=== PATIENT | female | born 1970 | race Caucasian/White ===

== ENCOUNTER 2020-05-06 10:11 | Emergency (ER) | payer OTHER, SELFPAY ==
[2020-05-06 10:17] VITALS: BP 149/79; PULSE 80; RESP 18; TEMP 36.8; O2SAT 99
--- NOTE | 2020-05-06 10:51 | ED.URI ---
HPI - URI/Sore Throat General Chief Complaint: Upper Respiratory Infection Stated Complaint: sore throat/headache/fatigue Time Seen by Provider: 05/06/20 10:41 Source: patient and RN notes reviewed Mode of arrival: ambulatory Limitations: no limitations History of Present Illness HPI Narrative: Patient presents today complaining of 3-day history of sore throat, fatigue, headache. Denies fever, cough, congestion, rhinorrhea, loss of taste or smell. 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 Denies recent antibiotic use. She currently rates her pain 01/18 and has been using Tylenol and cough drops. She did have a flu vaccine in March. 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 ENT: Denies rhinorrhea, congestion, or otalgia.+ Sore throat CARDIOVASCULAR: Denies chest pain, palpitations, or edema. RESPIRATORY: Denies cough or dyspnea. GASTROINTESTINAL: Denies abdominal pain, nausea, vomiting, or diarrhea. GENITOURINARY: Denies dysuria or hematuria. SKIN: Denies rash, itching, or wounds. MUSCULOSKELETAL: Denies back pain, joint pain, or myalgia. NEUROLOGIC: Denies numbness, tingling, or weakness.+ Headache PSYCH: Denies depression or anxiety. [facility] Past Medical History Medical History (Updated 05/06/20 @ 10:55 by Monalisa Lemons, HEAD HOLDER, ) Hypothyroidism Comments At time of signature, I have reviewed and agree with nursing past medical, surgical, social and family history unless otherwise noted. Please see nursing chart for further information. There is no relevant family history pertinent to the presenting complaint Exam Narrative: Exam Narrative: GENERAL: Well-appearing, well-nourished, and in no acute distress. HEAD: Normocephalic, atraumatic. EYES: EOMI. No redness or drainage. Conjunctivae normal. ENT: Mucous membranes pink and moist. Nares clear. No rhinorrhea. TMs normal bilaterally. Throat severely erythematous without edema or exudate. Uvula midline. NECK: Normal AROM. Supple. No lymphadenopathy. CHEST: No respiratory distress. Clear to auscultation. HEART: Regular rate and rhythm. No murmur appreciated. Normal peripheral pulses. EXTREMITIES: Normal range of motion. No edema. SKIN: Warm, dry, no rash. Capillary refill normal. Normal skin turgor. NEURO: No focal deficits. Alert and oriented x3. Gait steady. PSYCH: Normal affect. No signs of depression or anxiety. Course Vital Signs Vital signs: Vital Signs Temperature 98.2 F 05/06/20 10:17 Pulse Rate 80 05/06/20 10:17 Respiratory Rate 18 05/06/20 10:17 Blood Pressure 149/79 H 05/06/20 10:17 Pulse Oximetry 99 05/06/20 10:17 Temperature 98.2 F 05/06/20 10:17 Pulse Rate 80 05/06/20 10:17 Respiratory Rate 18 05/06/20 10:17 Blood Pressure 149/79 H 05/06/20 10:17 Pulse Oximetry 99 05/06/20 10:17 Reviewed. Pt has been instructed to follow up with her PCP regarding her elevated blood pressure today. MDM - URI/Sore Throat Differential Diagnosis Differential diagnosis: Likely upper respiratory infection, otitis media, sinusitis, viral infection, influenza, pharyngitis and other (Strep throat, COVID-19) Lab Data Attestation: I reviewed the patient's lab results. Labs: Influenza A Screen Negative Reference Range: Negative Influenza B Screen Negative Reference Ran
== END 2020-05-06 11:00 | disposition home or self-care (01) ==
PROVIDERS: Emergency Provider Nurse Practitioner
DX: J02.0 Streptococcal pharyngitis (principal); E03.9 Hypothyroidism, unspecified
CPT/HCPCS: 87804; 87880; 99203; G0463

== ENCOUNTER 2020-08-06 08:50 | Emergency (ER) | payer OTHER, SELFPAY ==
[2020-08-06 09:40] VITALS: BP 147/75; PULSE 76; RESP 20; TEMP 36.8; O2SAT 98
--- NOTE | 2020-08-06 10:05 | ED.URI ---
HPI - URI/Sore Throat General Chief Complaint: Upper Respiratory Infection Stated Complaint: SOB/Weakness/Fatigue/Headache Related Data Home Medications Medication Instructions Recorded Confirmed levonorgestrel-ethinyl estrad 1 tablet PO DAILY 08/06/20 08/06/20 [Vienva] Allergies Allergy/AdvReac Type Severity Reaction Status Date / Time No Known Allergies Allergy Verified 08/06/20 09:39 [facility] Past Medical History Medical History (Updated 05/07/20 @ 00:00 by Delia Mcghee) Hypothyroidism Course Vital Signs Vital signs: Vital Signs Temperature 98.2 F 08/06/20 09:40 Pulse Rate 76 08/06/20 09:40 Respiratory Rate 20 08/06/20 09:40 Blood Pressure 147/75 H 08/06/20 09:40 Pulse Oximetry 98 08/06/20 09:40 Temperature 98.2 F 08/06/20 09:40 Pulse Rate 76 08/06/20 09:40 Respiratory Rate 20 08/06/20 09:40 Blood Pressure 147/75 H 08/06/20 09:40 Pulse Oximetry 98 08/06/20 09:40 Discharge Plan Discharge Prescriptions: No Action levonorgestrel-ethinyl estrad [Vienva] 0.1-20 mg-mcg tablet 1 tablet PO DAILY RF: 0
--- NOTE | 2020-08-06 10:10 | ED.URI ---
HPI - URI/Sore Throat General Chief Complaint: Upper Respiratory Infection Stated Complaint: SOB/Weakness/Fatigue/Headache Time Seen by Provider: 08/06/20 09:50 Source: patient and RN notes reviewed Mode of arrival: ambulatory Limitations: no limitations History of Present Illness HPI Narrative: Patient presents today with a 4-day history of fatigue, body aches, headache, nasal congestion. Denies cough, sore throat, nausea, vomiting, diarrhea, loss of taste or smell. 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 Currently rates her headache 01/18. She has been taking ibuprofen and DayQuil with mild relief. Denies fever. She had a rapid COVID-19 test done yesterday that was negative. Related Data Home Medications Medication Instructions Recorded Confirmed levonorgestrel-ethinyl estrad 1 tablet PO DAILY 08/06/20 08/06/20 [Vienva] Allergies Allergy/AdvReac Type Severity Reaction Status Date / Time No Known Allergies Allergy Verified 08/06/20 09:39 Review of Systems Review of Systems: Narrative: CONSTITUTIONAL: Denies fever, chills, or sweats. + Body aches, fatigue EYES: Denies visual changes, redness, or discharge. ENT: Denies rhinorrhea, sore throat, or otalgia. + Congestion CARDIOVASCULAR: Denies chest pain, palpitations, or edema. RESPIRATORY: Denies cough or dyspnea. GASTROINTESTINAL: Denies abdominal pain, nausea, vomiting, or diarrhea. GENITOURINARY: Denies dysuria or hematuria. SKIN: Denies rash, itching, or wounds. MUSCULOSKELETAL: Denies back pain, joint pain, or myalgia. NEUROLOGIC: Denies numbness, tingling, or weakness. + Headache PSYCH: Denies depression or anxiety. [facility] Past Medical History Medical History (Updated 08/06/20 @ 10:13 by Monalisa Lemons, DISTRIBUTION CENTER ADMINISTRATOR, ) Hypothyroidism Comments At time of signature, I have reviewed and agree with nursing past medical, surgical, social and family history unless otherwise noted. Please see nursing chart for further information. There is no relevant family history pertinent to the presenting complaint Exam Narrative: Exam Narrative: GENERAL: Mildly ill-appearing, well-nourished, and in no acute distress. HEAD: Normocephalic, atraumatic. EYES: EOMI. No redness or drainage. Conjunctivae normal. ENT: Mucous membranes pink and moist. Nares clear. No rhinorrhea. TMs normal bilaterally. Throat normal. Uvula midline. NECK: Normal AROM. Supple. No lymphadenopathy. CHEST: No respiratory distress. Clear to auscultation. HEART: Regular rate and rhythm. No murmur appreciated. Normal peripheral pulses. EXTREMITIES: Normal range of motion. No edema. SKIN: Warm, dry, no rash. Capillary refill normal. Normal skin turgor. NEURO: No focal deficits. Alert and oriented x3. Gait steady. PSYCH: Normal affect. No signs of depression or anxiety. Course Course Emergency Course: Due to recent exposure and symptoms, patient may have a possible COVID-19 infection. Signs and symptoms discussed with patient. Patient educated to self-isolate in a room in his/her home away from others they live with. Use mask if available. Patient was advised not to leave house for any reason ? Self-treatment discussed including Tylenol for fever, pain, or myalgia, and cough cold medications for symptoms. Patient to check temperature daily and monitor for symptoms of respiratory distress. Patient should check in daily with primary care office/system via phone/virtual platform ? Nature of the disease to cause severe respiratory distress discussed with the patient. If emergent care is needed, instructed to notify EMS or primary care office/system that he/she may have COVID-19 to allow for proper preparation of PPE and isolation measures Vital Signs Vital signs: Vital Signs Temperature 98.2 F 08/06/20 09:40 Pulse Rate 76 08/06/20 09:40 Respiratory Rate 20 08/06/20 09:40 Blood Pressure 147/75 H 08/06/20 09:40 Pulse Oximetry 98 08/06/20 09:40 Temperature 98.2 F 0
[2020-08-07 14:05] LABS: SARS-CoV-2 RNA PCR Negative
== END 2020-08-06 10:20 | disposition home or self-care (01) ==
PROVIDERS: Emergency Provider Nurse Practitioner
DX: B34.9 Viral infection, unspecified (principal); Z20.822 Contact with and (suspected) exposure to COVID-19; E03.9 Hypothyroidism, unspecified
CPT/HCPCS: 87804; 99213; C9803; G0463; U0003; U0005

== ENCOUNTER 2021-06-18 08:48 | Emergency (ER) | payer OTHER, SELFPAY ==
[2021-06-18 08:55] VITALS: BP 120/72; PULSE 67; RESP 16; TEMP 37.5; O2SAT 99
--- NOTE | 2021-06-18 08:58 | ED.URI ---
HPI - URI/Sore Throat General Chief Complaint: Upper Respiratory Infection Stated Complaint: Headache/ Sore Throat Time Seen by Provider: 06/18/21 08:58 Source: patient and RN notes reviewed History of Present Illness HPI Narrative: Patient is a 50-year-old female who presents the urgent care with complaints of headache, sore throat and fatigue since Wednesday. 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 States that she does have the Covid vaccine and has been taking Advil. No other acute complaints. No acute distress noted. Patient aware of the plan of care. Some parts of this dictation were generated by voice recognition software and may contain typographical and/or grammatical inaccuracies. Related Data Home Medications Medication Instructions Recorded Confirmed levonorgestrel-ethinyl estrad 1 tablet PO DAILY 08/06/20 06/18/21 [Vienva] Allergies Allergy/AdvReac Type Severity Reaction Status Date / Time No Known Allergies Allergy Verified 06/18/21 09:02 Review of Systems Review of Systems: CONSTITUTIONAL: Denies fever, chills, or sweats. EYES: Denies visual changes, redness, or discharge. ENT: Denies rhinorrhea, congestion, otalgia. Reports of sore throat CARDIOVASCULAR: Denies chest pain, palpitations, or edema. RESPIRATORY: Denies cough or dyspnea. GASTROINTESTINAL: Denies abdominal pain, nausea, vomiting, or diarrhea. GENITOURINARY: Denies dysuria or hematuria. SKIN: Denies rash or itching. MUSCULOSKELETAL: Denies back pain, joint pain, or myalgia. NEUROLOGIC: Reports of headache All other systems reviewed are negative, except as documented in HPI. [facility] Past Medical History Medical History (Updated 06/18/21 @ 09:21 by JUJU Huynh) Hypothyroidism Comments At the time of my signature, I reviewed and agree with the nursing past medical, surgical, social, and family history. There is no relevant family history pertinent to the patient complaint. Exam Narrative: GENERAL: This is a well-nourished, well-developed patient, in no apparent distress. HEAD: normocephalic, atraumatic. EYES: PERRL. Sclera clear/white. Vision is grossly intact. EARS: External ears normal, auditory canals clear and without drainage, TMs normal without perforation. Hearing grossly intact. NOSE: External nose normal with no obvious nasal discharge, nares without redness, no rhinorrhea. THROAT: Mucous membranes moist. Moderate postnasal drainage with mild erythema noted to posterior oropharynx NECK: Neck supple CARDIOVASCULAR: Regular rate and rhythm without murmurs, gallops, or rubs. RESPIRATORY: Clear to auscultation. Breath sounds equal bilaterally. No wheezes, rales, or rhonchi. SKIN: warm, intact with no suspicious lesions or rash, good texture and turgor. NEURO: awake, alert, and oriented to person, place and time. There were no obvious focal neurologic abnormalities. EXTREMITIES: No clubbing, cyanosis, or edema. Course Vital Signs Vital signs: Vital Signs Temperature 99.5 F 06/18/21 08:55 Pulse Rate 67 06/18/21 08:55 Respiratory Rate 16 06/18/21 08:55 Blood Pressure 120/72 06/18/21 08:55 Pulse Oximetry 99 06/18/21 08:55 Temperature 99.5 F 06/18/21 08:55 Pulse Rate 67 06/18/21 08:55 Respiratory Rate 16 06/18/21 08:55 Blood Pressure 120/72 06/18/21 08:55 Pulse Oximetry 99 06/18/21 08:55 Reviewed MDM - URI/Sore Throat MDM Narrative Medical decision making narrative: Reviewed lab results with the patient. Aware that strep swab was positive. Advised patient complete the oral antibiotic regimen as prescribed. Be sure to eat and drink with the medication. Use Tylenol/ibuprofen as needed. Be sure to change her toothbrush within 2 to 3 days. You will be contagious for up to 24 hours after you start the medication and must be fever free to retu
== END 2021-06-18 09:23 | disposition home or self-care (01) ==
PROVIDERS: Emergency Provider Nurse Practitioner Family
DX: J02.0 Streptococcal pharyngitis (principal); E03.9 Hypothyroidism, unspecified
CPT/HCPCS: 87804; 87880; 99213; G0463

== ENCOUNTER 2022-06-16 08:02 | Emergency (ER) | payer OTHER, SELFPAY ==
--- NOTE | 2022-06-16 08:06 | ED_ITS ---
HPI - URI/Sore Throat General Chief Complaint: Upper Respiratory Infection Stated Complaint: Headache/Body Aches Time Seen by Provider: 06/16/22 08:06 Source: patient and RN notes reviewed Related Data Home Medications Medication Instructions Recorded Confirmed levonorgestrel-ethinyl estradiol 1 tablet PO DAILY 08/06/20 06/18/21 0.1 mg-20 mcg tablet (Vienva) Allergies Allergy/AdvReac Type Severity Reaction Status Date / Time No Known Allergies Allergy Verified 06/18/21 09:02 Review of Systems Review of Systems: CONSTITUTIONAL: Denies fever, chills, or sweats. EYES: Denies visual changes, redness, or discharge. ENT: Denies rhinorrhea, congestion, sore throat, or otalgia. CARDIOVASCULAR: Denies chest pain, palpitations, or edema. RESPIRATORY: Denies cough or dyspnea. GASTROINTESTINAL: Denies abdominal pain, nausea, vomiting, or diarrhea. GENITOURINARY: Denies dysuria or hematuria. SKIN: Denies rash or itching. MUSCULOSKELETAL: Denies back pain, joint pain, or myalgia. NEUROLOGIC: Denies headache, numbness, or weakness. PSYCHIATRIC: Denies anxiety or depression. All other systems reviewed are negative, except as documented in HPI. [facility] Past Medical History Medical History (Updated 06/19/21 @ 00:00 by Background Daemon) Hypothyroidism Comments At the time of my signature, I reviewed and agree with the nursing past medical, surgical, social, and family history. There is no relevant family history pertinent to the patient complaint. Exam Narrative: GENERAL: This is a well-nourished, well-developed patient, in no apparent distress. HEAD: normocephalic, atraumatic. EYES: PERRL. Sclera clear/white. Vision is grossly intact. EARS: External ears normal, auditory canals clear and without drainage, TMs normal without perforation. Hearing grossly intact. NOSE: External nose normal with no obvious nasal discharge, nares without redness, no rhinorrhea. THROAT: Mucous membranes moist, posterior pharynx clear. NECK: Neck supple, non-tender without lymphadenopathy, masses or thyromegaly. CARDIOVASCULAR: Regular rate and rhythm without murmurs, gallops, or rubs. RESPIRATORY: Clear to auscultation. Breath sounds equal bilaterally. No wheezes, rales, or rhonchi. GASTROINTESTINAL: Abdomen soft, non-tender, nondistended. Bowel sounds are active. No hepato-splenomegaly, or palpable masses. No guarding. SKIN: warm, intact with no suspicious lesions or rash, good texture and turgor. NEURO: awake, alert, and oriented to person, place and time. There were no obvious focal neurologic abnormalities. EXTREMITIES: No clubbing, cyanosis, or edema. No joint tenderness, effusion, or edema noted. No calf tenderness. Negative Homans sign bilaterally. BACK: Nontender without deformity or crepitance. No flank tenderness. Course Course Level of Care: Express Care Visit MDM - URI/Sore Throat Differential Diagnosis Differential diagnosis: Likely upper respiratory infection, croup, otitis media, sinusitis, viral infection, bronchitis, influenza and pharyngitis Critical Care Time Critical Care Time Critical Care Time: No Discharge Plan Discharge Prescriptions: No Action levonorgestrel-ethinyl estrad [Vienva] 0.1-20 mg-mcg tablet 1 tablet PO DAILY amoxicillin 500 mg tablet 500 mg PO Q12H Qty: 20 0RF Follow-up/Referrals: UNKNOWN,DOCTOR [Non-Staff] -
[2022-06-16 08:09] VITALS: BP 130/78; PULSE 72; RESP 16; TEMP 37; O2SAT 100
--- NOTE | 2022-06-16 08:14 | ED.URI ---
HPI - URI/Sore Throat General Chief Complaint: Upper Respiratory Infection Stated Complaint: Headache/Body Aches Time Seen by Provider: 06/16/22 08:06 Source: patient and RN notes reviewed Mode of arrival: ambulatory Limitations: no limitations History of Present Illness HPI Narrative: 51-year-old female presented for complaints of headache, body aches, sinus pressure/congestion, mild cough. onset yesterday. She endorses she was around her daughter who tested positive for influenza A. 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 She has taken TheraFlu and DayQuil for symptoms. Covid test negative at home yesterday. Denies shortness of breath, chest pain, palpitations, nausea vomiting, diarrhea, fevers or chills. States she never gets a fever. MD elicited complaint: cough Related Data Home Medications Medication Instructions Recorded Confirmed levonorgestrel-ethinyl estradiol 1 tablet PO DAILY 08/06/20 06/18/21 0.1 mg-20 mcg tablet (Vienva) Allergies Allergy/AdvReac Type Severity Reaction Status Date / Time No Known Allergies Allergy Verified 06/18/21 09:02 Review of Systems Review of Systems: ROS per HPI [facility] Past Medical History Medical History Hypothyroidism Exam Narrative: GENERAL: Ill-appearing, nontoxic EYES: PERRLA, conjunctivae clear ENT: Mucous membranes moist. TMs pearly valladares with dull light reflex bilaterally; no tragal tenderness. Oropharynx normal without lesions or exudate, no drooling, no hoarseness, no trismus, uvula midline. No tripod positioning, muffled voice, soft palate or pharyngeal wall bulging NECK: Supple. No lymphadenopathy CHEST: Clear to auscultation, breath sounds equal. No wheezing, rhonchi, rales, or stridor. No respiratory distress, speaks in full sentences. HEART: Regular rate and rhythm. No murmur heard. SKIN: Warm, dry, no rash. NEURO: Alert and oriented x3. PSYCH: Normal mood and affect Course Course Emergency Course: Patient is aware of diagnosis, understands and agrees to treatment plan. Anticipatory guidance given. Patient agrees to follow-up as directed and is aware of reasons to seek care at the emergency department. Portions of this record may have been created with voice recognition software Level of Care: Express Care Visit Vital Signs Vital signs: Vital Signs Temperature 98.6 F 06/16/22 08:09 Pulse Rate 72 06/16/22 08:09 Respiratory Rate 16 06/16/22 08:09 Blood Pressure 130/78 06/16/22 08:09 Pulse Oximetry 100 06/16/22 08:09 Oxygen Delivery Room Air 06/16/22 08:09 Temperature 98.6 F 06/16/22 08:09 Pulse Rate 72 06/16/22 08:09 Respiratory Rate 16 06/16/22 08:09 Blood Pressure 130/78 06/16/22 08:09 Pulse Oximetry 100 06/16/22 08:09 Oxygen Delivery Room Air 06/16/22 08:09 reviewed MDM - URI/Sore Throat MDM Narrative Medical decision making narrative: patient with known influenza exposure, sx c/w influenza. Nontoxic appearing and otherwise healthy. Advised supportive measures and signs/symptoms to go to the ER. Pt is appropriate for outpt treatment and f/u. Differential Diagnosis Differential diagnosis: Likely upper respiratory infection, sinusitis and viral infection Discharge Plan Discharge Clinical Impression: Viral infection Patient Disposition: Home, Self-Care Condition: Stable Instructions: Influenza (ED) Additional Instructions: You should avoid crowds until you are fever free for 24 hours without the use of fever reducing medications, or the symptoms are improved Rest. Drink plenty of fluids. Tylenol 1000mg every 8 hours as needed for pain/fever Recommend Flonase spray and Zyrtec (or Claritin/Kelsie) for sinus pressure/congestion over the counter Cough syrup may cause drowsiness; avoid driving or take it at night time. Follow up with your primary care provider as needed in 1-
== END 2022-06-16 08:34 | disposition home or self-care (01) ==
PROVIDERS: Emergency Provider Nurse Practitioner Family
DX: B34.9 Viral infection, unspecified (principal); E03.9 Hypothyroidism, unspecified
CPT/HCPCS: 99211; G0463

== ENCOUNTER 2022-07-15 14:22 | Emergency (ER) | payer OTHER, SELFPAY ==
--- NOTE | ~2022-07-15 | XR_ITS ---
EXAMINATION: XR chest 2V DATE: 07/15/2022 14:48 INDICATION: Shortness of breath. Chest tightness. Wheezing. TECHNIQUE: Frontal and lateral views of the chest were obtained. COMPARISON: None. FINDINGS: The chest demonstrates clear lungs without pneumonia, pleural effusion, or pneumothorax. Th e heart size is normal. IMPRESSION: 1. No acute cardiopulmonary disease. Reviewed, dictated and finalized at location A. WAY [employer]
--- NOTE | 2022-07-15 14:24 | ED.URI ---
HPI - URI/Sore Throat General Chief Complaint: Upper Respiratory Infection Stated Complaint: wheezing and tight chest Time Seen by Provider: 07/15/22 14:24 Source: patient and RN notes reviewed History of Present Illness HPI Narrative: Patient is a 51-year-old female presents to the Urgent Care with complaints of cough and wheezing. Patient states that she did have the flu a couple weeks ago and has had a persistent cough since then. Patient denies any recent fevers, nausea or vomiting. States that she had increased shortness of breath while walking the stairs today. Patient denies any cardiac history or chest pain. Patient has taken several COVID test at home which have all been negative. States that the symptoms started Wednesday. Patient has been taking Robitussin, Mucinex and ibuprofen. No other acute complaints. No acute distress noted. Patient aware of plan of care. Some parts of this dictation were generated by voice recognition software and may contain typographical and/or grammatical inaccuracies. Related Data Home Medications Medication Instructions Recorded Confirmed levonorgestrel-ethinyl estradiol 1 tablet PO DAILY 08/06/20 07/15/22 0.1 mg-20 mcg tablet (Vienva) Allergies Allergy/AdvReac Type Severity Reaction Status Date / Time No Known Allergies Allergy Verified 07/15/22 14:55 Review of Systems Review of Systems: CONSTITUTIONAL: Denies fever, chills, or sweats. EYES: Denies visual changes, redness, or discharge. ENT: Denies rhinorrhea, congestion, sore throat, or otalgia. CARDIOVASCULAR: Denies chest pain, palpitations, or edema. RESPIRATORY: Reports persistent cough with increased dyspnea GASTROINTESTINAL: Denies abdominal pain, nausea, vomiting, or diarrhea. GENITOURINARY: Denies dysuria or hematuria. SKIN: Denies rash or itching. MUSCULOSKELETAL: Denies back pain, joint pain, or myalgia. NEUROLOGIC: Denies headache, numbness, or weakness. All other systems reviewed are negative, except as documented in HPI. [facility] Past Medical History Medical History Hypothyroidism Comments At the time of my signature, I reviewed and agree with the nursing past medical, surgical, social, and family history. There is no relevant family history pertinent to the patient complaint. Exam Narrative: GENERAL: This is a well-nourished, well-developed patient, in no apparent distress. HEAD: normocephalic, atraumatic. EYES: PERRL. Sclera clear/white. Vision is grossly intact. EARS: External ears normal, auditory canals clear and without drainage, TMs normal without perforation. Hearing grossly intact. NOSE: External nose normal with no obvious nasal discharge, nares without redness, no rhinorrhea. THROAT: Mucous membranes moist, posterior pharynx clear. mild postnasal drainage NECK: Neck supple CARDIOVASCULAR: Regular rate and rhythm without murmurs, gallops, or rubs. RESPIRATORY: Clear to auscultation. Breath sounds equal bilaterally. No wheezes, rales, or rhonchi. SKIN: warm, intact with no suspicious lesions or rash, good texture and turgor. NEURO: awake, alert, and oriented to person, place and time. There were no obvious focal neurologic abnormalities. EXTREMITIES: No clubbing, cyanosis, or edema. Course Course Level of Care: Express Care Visit Vital Signs Vital signs: Vital Signs Temperature 98.5 F 07/15/22 14:26 Pulse Rate 92 07/15/22 14:26 Respiratory Rate 16 07/15/22 14:26 Blood Pressure 147/84 H 07/15/22 14:26 Pulse Oximetry 98 07/15/22 14:26 Oxygen Delivery Room Air 07/15/22 14:26 Temperature 98.5 F 07/15/22 14:26 Pulse Rate 92 07/15/22 14:26 Respiratory Rate 16 07/15/22 14:26 Blood Pressure 147/84 H 07/15/22 14:26 Pulse Oximetry 98 07/15/22 14:26 Oxygen Delivery Room Air 07/15/22 14:26 reviewed- Patient is informed that they may have pre-hypertension or hypertension based on a blood pre
[2022-07-15 14:26] VITALS: BP 147/84; PULSE 92; RESP 16; TEMP 36.9; O2SAT 98
== END 2022-07-15 15:05 | disposition home or self-care (01) ==
PROVIDERS: Emergency Provider Nurse Practitioner Family
DX: R05.9 Cough, unspecified (principal); E03.9 Hypothyroidism, unspecified
CPT/HCPCS: 71046; 99213; G0463

== ENCOUNTER 2023-09-13 08:05 | Emergency (ER) | payer OTHER, SELFPAY ==
[2023-09-13 08:12] VITALS: BP 112/79; PULSE 84; RESP 20; TEMP 37.4; O2SAT 99
--- NOTE | 2023-09-13 08:28 | ED.URI ---
HPI - URI/Sore Throat General Chief Complaint: Upper Respiratory Infection Stated Complaint: throat Time Seen by Provider: 09/13/23 08:21 Source: patient and RN notes reviewed Mode of arrival: ambulatory Limitations: no limitations History of Present Illness HPI Narrative: Patient presents today with a 4 day history of sore throat and slight cough. Denies any additional symptoms to include fever, congestion, rhinorrhea. She currently rates her pain 7/10 and has been drinking some hot tea with some relief. She has had a negative COVID test at home. 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 Related Data Home Medications Medication Instructions Recorded Confirmed tamoxifen 20 mg tablet mg 09/13/23 Allergies Allergy/AdvReac Type Severity Reaction Status Date / Time No Known Allergies Allergy Verified 07/15/22 14:55 Review of Systems Review of Systems: CONSTITUTIONAL: Denies body aches, fever, chills, or sweats. EYES: Denies visual changes, redness, or discharge. ENT: Denies rhinorrhea, congestion, or otalgia.+ sore throat CARDIOVASCULAR: Denies chest pain, palpitations, or edema. RESPIRATORY: Denies dyspnea.+ slight cough GASTROINTESTINAL: Denies abdominal pain, nausea, vomiting, or diarrhea. GENITOURINARY: Denies dysuria or hematuria. SKIN: Denies rash, itching, or wounds. MUSCULOSKELETAL: Denies back pain, joint pain, or myalgia. NEUROLOGIC: Denies headache, numbness, tingling, or weakness. PSYCH: Denies depression or anxiety. [facility] Past Medical History Medical History Hypothyroidism Comments At time of signature, I have reviewed and agree with nursing past medical, surgical, social and family history unless otherwise noted. Please see nursing chart for further information. There is no relevant family history pertinent to the presenting complaint Exam Narrative: GENERAL: Well-appearing, well-nourished, and in no acute distress. HEAD: Normocephalic, atraumatic. EYES: EOMI. No redness or drainage. Conjunctivae normal. ENT: Mucous membranes pink and moist. Nares clear. No rhinorrhea. TMs normal bilaterally. Throat mildly erythematous without edema or exudate. Uvula midline. NECK: Normal AROM. Supple. No lymphadenopathy. CHEST: No respiratory distress. Clear to auscultation. HEART: Regular rate and rhythm. No murmur appreciated. EXTREMITIES: Normal range of motion. No edema. SKIN: Warm, dry, no rash. Capillary refill normal. Normal skin turgor. NEURO: No focal deficits. Alert and oriented x3. Gait steady. PSYCH: Normal affect. No signs of depression or anxiety. Course Course Level of Care: Express Care Visit Vital Signs Vital signs: Vital Signs Temperature 99.3 F 09/13/23 08:12 Pulse Rate 84 09/13/23 08:12 Respiratory Rate 20 09/13/23 08:12 Blood Pressure 112/79 09/13/23 08:12 Pulse Oximetry 99 09/13/23 08:12 Oxygen Delivery Room Air 09/13/23 08:12 Temperature 99.3 F 09/13/23 08:12 Pulse Rate 84 09/13/23 08:12 Respiratory Rate 20 09/13/23 08:12 Blood Pressure 112/79 09/13/23 08:12 Pulse Oximetry 99 09/13/23 08:12 Oxygen Delivery Room Air 09/13/23 08:12 Reviewed MDM - URI/Sore Throat MDM Narrative Medical decision making narrative: Rapid strep negative. Culture pending. Symptoms likely viral in etiology. Discussed [id number] medication use induration of illness. No prescription medications indicated at this time. Anticipatory guidance given. Differential Diagnosis Differential diagnosis: Likely upper respiratory infection, viral infection, pharyngitis and other (Strep throat) Lab Data Attestation: I reviewed the patient's lab results. Labs: Strep Screen Presumptive Negative *(Reference Range: Negative)* Critical Care Time Critical Care Time Critical Care Time: No Discharge Plan Discharge Clinical Impression:
== END 2023-09-13 08:36 | disposition home or self-care (01) ==
PROVIDERS: Emergency Provider Nurse Practitioner
DX: J02.9 Acute pharyngitis, unspecified (principal); E03.9 Hypothyroidism, unspecified
CPT/HCPCS: 87081; 87880; 99213; G0463

== ENCOUNTER 2024-05-29 12:35 | Outpatient (CLI) | payer OTHER, SELFPAY ==
--- NOTE | ~2024-05-29 | CT_ITS ---
CT of the Abdomen and Pelvis: Indication: Abdominal pain Technique: 2.5 mm axial scans were obtained through the abdomen and pelvis following intravenous adm inistration of 100 cc of Omnipaque 350. Dose reduction technique was used on this scan by utilizing a utomated exposure control and iterative reconstruction technique. The dose-length product (DLP) was 3 94.86 mGy-cm. Findings: Scans through the lung bases are unremarkable. The liver, spleen, pancreas, adrenals and kidneys are within normal limits. Small calcified gallstone s are present. No evidence of aortic aneurysm. No lymphadenopathy. There is probable acute sigmoid diverticulitis with complex intramural abscess measuring 2.5 cm at th e mid to distal sigmoid colon (axial image 129 for example). No bowel obstruction. No free air. Images through the pelvis were performed. Urinary bladder unremarkable. Small bilateral adnexal cysts are present. No other adnexal mass evident. Impression: Acute sigmoid diverticulitis with 2.5 cm intramural abscess. Cholelithiasis. Reviewed, dictated and finalized at [facility]. [employer] Impression: Acute sigmoid diverticulitis with 2.5 cm intramural abscess. Cholelithiasis.
== END 2024-05-29 12:36 | disposition home or self-care (01) ==
LOC: ANHIMG 12:40
PROVIDERS: Visit Provider Physician Assistant
DX: K80.20 Calculus of gallbladder without cholecystitis without obstruction (principal); K57.32 Diverticulitis of large intestine without perforation or abscess without bleeding
CPT/HCPCS: 74177; Q9967

== ENCOUNTER 2024-05-29 14:58 | Inpatient (IN) | payer OTHER, SELFPAY ==
[2024-05-29] VITALS (11 sets, daily range): BP systolic 97–118; BP diastolic 57–80; PULSE 70–80; RESP 12–18; TEMP 36.4–36.8; O2SAT 97–99; BMI 28.4
--- NOTE | 2024-05-29 15:13 | ED.GENADULT ---
HPI - General Adult General Chief complaint: Recheck/Abnormal Lab/Rx <AMBER Burgos Last Filed: 05/29/24 19:36> Stated complaint: abnormal abd ct scan <AMBER Burgos Last Filed: 05/29/24 19:36> Time Seen by Provider: 05/29/24 15:13 <AMBER Burgos Last Filed: 05/29/24 19:36> Focused HPI: Patient is a 53 y/o female who presents to the ED with c/o lower abdominal pain/abnormal outpatient CT. Patient reports she has been having severe lower abdominal pain since Wednesday. Worse throughout her R lower abdomen. Saw her PCP today and was referred for outpatient CT imaging of her abdomen which showed diverticulitis with an abscess. She was then sent here for further evaluation. Patient denies previous history of diverticulitis. She did have a colonoscopy last Spring which she was told was normal. Patient denies any vomiting, fevers since Wednesday. She does report having persistent nausea for the past 3 months. She has history of breast cancer status post bilateral mastectomy last year. She states her oncologist thought her nausea may be related to her tamoxifen. She has been off of this for the past 3 weeks. GENERAL: Well-appearing, well-nourished, and in no acute distress. HEAD: Normocephalic, atraumatic. CHEST: Clear to auscultation. ?No respiratory distress. HEART: Regular rate and rhythm.? ABD: Moderate TTP in lower abdomen, worst in suprapubic region and RLQ. NEURO: ?Alert and oriented x3. Patient screened in triage and initial orders placed.? ?Additional care and disposition to be based upon?diagnostic testing and treatment. <AMBER Burgos Last Filed: 05/29/24 19:36> Source: patient and old records reviewed <AMBER Burgos Last Filed: 05/29/24 19:36> Mode of arrival: ambulatory <AMBER Burgos Last Filed: 05/29/24 19:36> Limitations: no limitations <AMBER Burgos Last Filed: 05/29/24 19:36> History of Present Illness HPI narrative: I agree with the above HPI <Akhil Cordero MD - Last Filed: 05/30/24 08:04> Related Data Home medications: Home Medications Medication Instructions Recorded Confirmed No Home Medications 05/29/24 05/29/24 <Katherine Rossi PA-C - Last Filed: 05/29/24 19:36> Allergies/adverse reactions: Allergies Allergy/AdvReac Type Severity Reaction Status Date / Time No Known Allergies Allergy Verified 05/29/24 18:03 <Katherine Rossi PA-C - Last Filed: 05/29/24 19:36> Review of Systems Review of Systems: All systems reviewed & are unremarkable except as noted in HPI and below <Akhil Cordero MD - Last Filed: 05/30/24 08:04> PMFSH Past Medical History Medical History: Medical History Breast cancer <Katherine Rossi PA-C - Last Filed: 05/29/24 19:36> Family History Family History: Family History Other No significant family history <Katherine Rossi PA-C - Last Filed: 05/29/24 19:36> Social History Social History: Social History Smoking status: Never smoker Alcohol intake: never Substance use: current Other substance usage details: marijuana gummies Last use: 05/28/24 Do You Feel Safe in your Home?: Yes Lack of Transportation: No Lack of Food: Never True Current Housing: I Have Housing Concerned About Future Housing: No Difficulty Paying Gas/Electric Bills: No Difficulty Paying for Meds: No Currently Unemployed: No Education: Bachelor's Degree Difficulty w/ Childcare or Family Care: No Spiritual care concerns: No <Katherine Rossi PA-C - Last Filed: 05/29/24 19:36> Exam Narrative: APPEARANCE: Well appearing, no pain, no distress, well-nourished. HEAD: normocephalic, atraumatic. EYES: PERRLA/EOMI, conjunctivae clear. NOSE: Normal no drainage EARS:TMS clear with good light reflex. THROAT: Pharynx clear, no exudate. NECK: Supple. No adenopathy, no masses. RESPIRATORY: Airway patent, respirations nonlabored. Clear to auscultation bilaterally, no rales, rhonchi, wheezing. CARDIOVASCULAR: Regular rate and rhythm without murmurs rubs or gallops. ABDOMINAL: lower abdominal tenderness to palpation MUSCULOSKELETAL: Moves all extremities. Strength/ROM intact, No edema, No calf tenderness. NEURO: Alert. Cranial nerves II through XII intact. Good gait. Good coordination SKIN: Warm, dry. Normal Color <Akhil Cordero MD - Last Filed: 05/30/24 08:04> Course Vital Signs Vital signs: Vital Signs Temperature 97.6 F 05/29/24 15:00 Pulse Rate 80 05/29/24 15:00 Respiratory Rate 16 05/29/24 15:00 Blood Pressure 118/80 05/29/24 15:00 Pulse Oximetry 99 05/29/24 15:00 Oxygen Delivery Room Air 05/29/24 15:00 Temperature 98.3 F 05/30/24 06:00 Pulse Rate 58 L 05/30/24 06:00 Respiratory Rate 20 05/30/24 06:00 Blood Pressure 96/51 L 05/30/24 06:00 Pulse Oximetry 93 05/30/24 06:00 Oxygen Delivery Room Air 05/29/24 20:00 <Katherine Rossi PA-C - Last Filed: 05/29/24 19:36> Vital Signs Temperature 97.6 F 05/29/24 15:00 Pulse Rate 80 05/29/24 15:00 Respiratory Rate 16 05/29/24 15:00 Blood Pressure 118/80 05/29/24 15:00 Pulse Oximetry 99 05/29/24 15:00 Oxygen Delivery Room Air 05/29/24 15:00 Temperature 98.3 F 05/30/24 06:00 Pulse Rate 58 L 05/30/24 06:00 Respiratory Rate 20 05/30/24 06:00 Blood Pressure 96/51 L 05/30/24 06:00 Pulse Oximetry 93 05/30/24 06:00 Oxygen Delivery Room Air 05/29/24 20:00 <Akhil Cordero MD - Last Filed: 05/30/24 08:04> Medical Decision Making MDM Narrative Medical decision making narrative: MSE by COMPA in triage. <Katherine Rossi PA-C - Last Filed: 05/29/24 19:36> MSE by COMPA in triage. I discussed the case with surgery and hospitalist. Surgeon will see the patient as consult. Patient was started on antibiotics. Surgery did not feel that the patient would be going to the operating room and anticipated doing IV antibiotics and observation for the intramural abscess. Case discussed with hospitalist patient was accepted for admission. Patient family are updated on the results of the workup and plan for admission and treatment. All questions concerns were addressed. Patient was provided IV medications for pain control patient was started on IV Zosyn while in the emergency department. <Akhil Cordero MD - Last Filed: 05/30/24 08:04> Differential Diagnosis Differential Diagnosis: Perforated abscess, diverticulitis, intramural abscess <Akhil Cordero MD - Last Filed: 05/30/24 08:04> Vital Signs Vital Signs: Vital Signs Temperature 97.6 F 05/29/24 15:00 Pulse Rate 80 05/29/24 15:00 Respiratory Rate 16 05/29/24 15:00 Blood Pressure 118/80 05/29/24 15:00 Pulse Oximetry 99 05/29/24 15:00 Oxygen Delivery Room Air 05/29/24 15:00 Temperature 98.3 F 05/30/24 06:00 Pulse Rate 58 L 05/30/24 06:00 Respiratory Rate 20 05/30/24 06:00 Blood Pressure 96/51 L 05/30/24 06:00 Pulse Oximetry 93 05/30/24 06:00 Oxygen Delivery Room Air 05/29/24 20:00 <Katherine Rossi PA-C - Last Filed: 05/29/24 19:36> Vital Signs Temperature 97.6 F 05/29/24 15:00 Pulse Rate 80 05/29/24 15:00 Respiratory Rate 16 05/29/24 15:00 Blood Pressure 118/80 05/29/24 15:00 Pulse Oximetry 99 05/29/24 15:00 Oxygen Delivery Room Air 05/29/24 15:00 Temperature 98.3 F 05/30/24 06:00 Pulse Rate 58 L 05/30/24 06:00 Respiratory Rate 20 05/30/24 06:00 Blood Pressure 96/51 L 05/30/24 06:00 Pulse Oximetry 93 05/30/24 06:00 Oxygen Delivery Room Air 05/29/24 20:00 <Akhil Cordero MD - Last Filed: 05/30/24 08:04> Lab Data Lab results reviewed: Yes I reviewed the patient's lab results. <Akhil Cordero MD - Last Filed: 05/30/24 08:04> Result diagrams: 05/29/24 15:22 05/29/24 15:22 <Katherine Rossi PA-C - Last Filed: 05/29/24 19:36> Labs: Lab Results 05/29/24 05/29/24 Range/Units 15:22 15:55 WBC 11.2 H (4.5-10.0) K/mm3 RBC 4.37 (4.2-5.4) M/mm3 Hgb 13.2 (12.0-15.0) g/dL Hct 39.1 (37.0-47.0) % MCV 89.5 (80-100) fl MCH 30.2 (26-34) pg MCHC 33.8 (32-36) g/dl RDW 12.8 (11.5-14.5) % Plt Count 286 (150-375) k/mm3 MPV 9.2 (7.4-10.4) fl Immature Gran % (Auto) 0.4 (0-0.5) % Neut % (Auto) 71.8 (45.5-73.1) % Lymph % (Auto) 18.8 (18.3-44.2) % [place] % (Auto) 6.8 (2.6-8.5) % Eos % (Auto) 1.8 (0-4.4) % Baso % (Auto) 0.4 (0.2-1.2) % Lymph # (Auto) 2.10 (0.9-3.2) K/mm3 [place] # (Auto) 0.8 H (0.1-0.6) K/mm3 Eos # (Auto) 0.2 (0-0.3) K/mm3 Baso # (Auto) 0.1 (0.0-0.1) K/mm3 Abs Immat Gran (auto) 0.04 H (0.00-0.031) K/mm3 Absolute Neuts (auto) 8.1 H (1.3-6.7) K/mm3 Absolute Nucleated RBC 0.000 (0.0-0.012) K/mm3 Nucleated RBC % 0.0 (0.0-0.2) % Sodium 138 (137-145) mmol/L Potassium 3.6 (3.4-5.0) mmol/L Chloride 104 (98-107) mmol/L Carbon Dioxide 28 (22-30) mmol/L Anion Gap 6 (4-12) mmol/L BUN 8 (7-17) mg/dL Creatinine 0.70 (0.7-1.0) mg/dL Estim Creat Clear Calc 79 ml/min Estimated GFR > 60 (59 - ) Glucose 119 H (65-110) mg/dL Lactic Acid 1.6 (0.7-2.0) mmol/L Calcium 8.8 (8.4-10.2) mg/dL Total Bilirubin 0.5 (0.2-1.3) mg/dL AST 26 (14-36) U/L ALT 18 (6-35) U/L Alkaline Phosphatase 55 (38-126) U/L Total Protein 8.0 (6.3-8.2) g/dL Albumin 4.2 (3.5-5.1) g/dL Lipase 62 (23-300) U/L Urine Color Yellow (Yellow) Urine Appearance Clear (Clear) Urine pH 5.5 (5.0-9.0) Ur Specific Pierce > 1.045 H (1.001-1.035) Urine Protein 1+ H (Negative) mg/dL Urine Glucose (UA) Negative (Negative) mg/dL Urine Ketones Negative (Negative) mg/dL Ur Blood (Man) Negative (Negative) Urine Nitrate Negative (Negative) Urine Bilirubin Negative (Negative) Urine Urobilinogen 0.2 (<2.0) mg/dL Leukocyte Esterase Rfl Negative (Negative) MALENA/UL Urine RBC 0-2 (0-2) /hpf Urine WBC 0-5 (0-3) /hpf Ur Squamous Epith Cells None seen (Few) /hpf Urine Bacteria None seen /hpf Urine Casts 0-2 <Katherine Rossi PA-C - Last Filed: 05/29/24 19:36> Lab Results 05/29/24 05/29/24 Range/Units 15:22 15:55 WBC 11.2 H (4.5-10.0) K/mm3 RBC 4.37 (4.2-5.4) M/mm3 Hgb 13.2 (12.0-15.0) g/dL Hct 39.1 (37.0-47.0) % MCV 89.5 (80-100) fl MCH 30.2 (26-34) pg MCHC 33.8 (32-36) g/dl RDW 12.8 (11.5-14.5) % Plt Count 286 (150-375) k/mm3 MPV 9.2 (7.4-10.4) fl Immature Gran % (Auto) 0.4 (0-0.5) % Neut % (Auto) 71.8 (45.5-73.1) % Lymph % (Auto) 18.8 (18.3-44.2) % [place] % (Auto) 6.8 (2.6-8.5) % Eos % (Auto) 1.8 (0-4.4) % Baso % (Auto) 0.4 (0.2-1.2) % Lymph # (Auto) 2.10 (0.9-3.2) K/mm3 [place] # (Auto) 0.8 H (0.1-0.6) K/mm3 Eos # (Auto) 0.2 (0-0.3) K/mm3 Baso # (Auto) 0.1 (0.0-0.1) K/mm3 Abs Immat Gran (auto) 0.04 H (0.00-0.031) K/mm3 Absolute Neuts (auto) 8.1 H (1.3-6.7) K/mm3 Absolute Nucleated RBC 0.000 (0.0-0.012) K/mm3 Nucleated RBC % 0.0 (0.0-0.2) % Sodium 138 (137-145) mmol/L Potassium 3.6 (3.4-5.0) mmol/L Chloride 104 (98-107) mmol/L Carbon Dioxide 28 (22-30) mmol/L Anion Gap 6 (4-12) mmol/L BUN 8 (7-17) mg/dL Creatinine 0.70 (0.7-1.0) mg/dL Estim Creat Clear Calc 79 ml/min Estimated GFR > 60 (59 - ) Glucose 119 H (65-110) mg/dL Lactic Acid 1.6 (0.7-2.0) mmol/L Calcium 8.8 (8.4-10.2) mg/dL Total Bilirubin 0.5 (0.2-1.3) mg/dL AST 26 (14-36) U/L ALT 18 (6-35) U/L Alkaline Phosphatase 55 (38-126) U/L Total Protein 8.0 (6.3-8.2) g/dL Albumin 4.2 (3.5-5.1) g/dL Lipase 62 (23-300) U/L Urine Color Yellow (Yellow) Urine Appearance Clear (Clear) Urine pH 5.5 (5.0-9.0) Ur Specific Pierce > 1.045 H (1.001-1.035) Urine Protein 1+ H (Negative) mg/dL Urine Glucose (UA) Negative (Negative) mg/dL Urine Ketones Negative (Negative) mg/dL Ur Blood (Man) Negative (Negative) Urine Nitrate Negative (Negative) Urine Bilirubin Negative (Negative) Urine Urobilinogen 0.2 (<2.0) mg/dL Leukocyte Esterase Rfl Negative (Negative) MALENA/UL Urine RBC 0-2 (0-2) /hpf Urine WBC 0-5 (0-3) /hpf Ur Squamous Epith Cells None seen (Few) /hpf Urine Bacteria None seen /hpf Urine Casts 0-2 <Akhil Cordero MD - Last Filed: 05/30/24 08:04> Discharge Plan Discharge Clinical Impression: Abscess of sigmoid colon due to diverticulitis <Katherine Rossi PA-C - Last Filed: 05/29/24 19:36> Patient Disposition: Still a Patient <Katherine Rossi PA-C - Last Filed: 05/29/24 19:36> Condition: Serious <Katherine Rossi PA-C - Last Filed: 05/29/24 19:36>
[2024-05-29 15:30] LABS: Basophils Absolute Auto 0.1 K/mm3 (0.0-0.1); Basophils Percent Auto 0.4 % (0.2-1.2); Eosinophils Absolute Auto 0.2 K/mm3 (0-0.3); Eosinophils Percent Auto 1.8 % (0-4.4); Hematocrit 39.1 % (37.0-47.0); Hemoglobin 13.2 g/dL (12.0-15.0); Immature Granulocyte Absolute 0.04 K/mm3 (0.00-0.031); Immature Granulocyte Percent A 0.4 % (0-0.5); Lymphocytes Percent Auto 18.8 % (18.3-44.2); Mean Corpuscular HGB Conc 33.8 g/dl (32-36); Mean Corpuscular Hemoglobin 30.2 pg (26-34); Mean Corpuscular Volume 89.5 fl (80-100); Mean Platelet Volume 9.2 fl (7.4-10.4); Monocytes Absolute Auto 0.8 K/mm3 (0.1-0.6); Monocytes Percent Auto 6.8 % (2.6-8.5); Neutrophils Absolute Auto 8.1 K/mm3 (1.3-6.7); Neutrophils Percent Auto 71.8 % (45.5-73.1); Platelet Count Result 286 k/mm3 (150-375); Red Blood Count 4.37 M/mm3 (4.2-5.4); Red Cell Distribution Width 12.8 % (11.5-14.5); White Blood Count 11.2 K/mm3 (4.5-10.0)
[2024-05-29 15:39] LABS: Alanine Aminotransferase 18 U/L (6-35); Albumin Level 4.2 g/dL (3.5-5.1); Alkaline Phosphatase 55 U/L (38-126); Anion Gap 6 mmol/L (4-12); Aspartate Amino Transferase 26 U/L (14-36); Bilirubin,Total 0.5 mg/dL (0.2-1.3); Blood Urea Nitrogen 8 mg/dL (7-17); Calcium 8.8 mg/dL (8.4-10.2); Carbon Dioxide 28 mmol/L (22-30); Chloride 104 mmol/L (98-107); Estimated CRCL calculation 79 ml/min; Estimated Glomerular Filt Rate > 60; Glucose 119 mg/dL (65-110); Lipase 62 U/L (23-300); Potassium 3.6 mmol/L (3.4-5.0); Sodium 138 mmol/L (137-145)
[2024-05-29 15:49] LABS: Lactic Acid Reflex 1.6 mmol/L (0.7-2.0)
[2024-05-29] MEDS: PIPERACILLN/TAZ 3.375GM/NS50ML 3.375 GM/50 ML BAG IVPB ×2 (16:00→23:05)
[2024-05-29 16:14] LABS: Add Urine Microscopic? YES; Appearance Urine Clear (Clear); Bacteria Urine None Seen /hpf; Bilirubin Urine Negative (Negative); Blood Urine Negative (Negative); Color Urine Yellow (Yellow); Glucose Urine UA Negative (Negative); Ketones Urine Negative (Negative); Leukocyte Esterase Ur Negative LEU/UL (Negative); Nitrate Urine Negative (Negative); Non Pathogenic Casts 0-2; Protein Urine 1+ mg/dL (Negative); RBC Urine 0-2 /hpf (0-2); Specific Grav Ur > 1.045 (1.001-1.035); Squamous Epithelial Cell Urine None Seen /hpf (Few); Urobilinogen Urine 0.2 mg/dL (<2.0); WBC Urine 0-5 /hpf (0-3); pH Urine 5.5 (5.0-9.0)
[2024-05-29] MEDS: SODIUM CHLORIDE 0.9% IV 1,000 ML 125 ML IV CONT (17:24)
--- NOTE | 2024-05-29 17:55 | ADMGEN ---
This patient, Betina Coy, was admitted to Medical Room 244-. Patient/family oriented to hospital policies and general routines including ID bracelet, bed and alarms, visiting hours, pain management, procedures, bathroom and other care routines, personal items, smoking policy, room service/diet, and visiting hours. Information on how to activate the Rapid Response Team has been discussed. Patient/Family are encouraged to report perceived risks to care and to ask questions if they do not understand what they are told or what they should do.
--- NOTE | 2024-05-29 20:46 | P.HP_ITS ---
H&P: HPI History of Present Illness Date/Time: 05/29/24 20:46 Chief Complaint: abdominal pain and nausea Narrative: this is a 53-year-old female patient with a history of breast cancer status post bilateral mastectomy and recently treated with tamoxifen who is admitted to the hospital due to sigmoid diverticulitis with complex 2.5 cm intramural abscess. patient reports that 3 days ago she developed significant abdominal pain that has continued to worsen. Patient notes that she has had nausea for a few months and her oncologist thought the nausea was related to tamoxifen since this medication is on hold for right now and has been for the last few weeks. patient went to see her primary care today and they ordered CT scan abdomen pelvis which ended up showing diverticulitis with complex intramural abscess. Patient was contacted and informed to come to the emergency department for treatment and admission. In the emergency department workup showed mildly elevated white blood cell count 11.2 but other labs were unremarkable. General surgery was contacted by the emergency department and requested patient be admitted to hospitalist service as he did not believe surgical intervention was going to be necessary. Surgery will see patient in the morning. We will place patient NPO after midnight and she was placed on clear liquid diet until then by emergency department. Patient experiencing significant right lower quadrant abdominal pain and ongoing nausea. As needed pain and nausea medication were ordered. Patient reports she does not take any home medications at this current time. Review of Systems Review of Systems: All systems reviewed & are unremarkable except as noted in HPI and below PMFSH Past Medical History Medical History Breast cancer Family History Family History Other No significant family history Social History Social History Smoking status: Never smoker Alcohol intake: never Substance use: current Other substance usage details: marijuana gummies Last use: 05/28/24 Do You Feel Safe in your Home?: Yes Lack of Transportation: No Lack of Food: Never True Current Housing: I Have Housing Concerned About Future Housing: No Difficulty Paying Gas/Electric Bills: No Difficulty Paying for Meds: No Currently Unemployed: No Education: Bachelor's Degree Difficulty w/ Childcare or Family Care: No Spiritual care concerns: No Meds Home Medications and Allergies Home Medications Medication Instructions Recorded Confirmed Type No Home Medications 05/29/24 05/29/24 History Allergies Allergy/AdvReac Type Severity Reaction Status Date / Time No Known Allergies Allergy Verified 05/29/24 18:03 Vital Signs Vital Signs - 24 hr 05/29/24 15:00 05/29/24 16:19 05/29/24 16:20 Temperature 36.4 C Pulse Rate 80 78 Respiratory Rate 16 16 Blood Pressure 118/80 105/75 Pulse Oximetry 99 97 97 Oxygen Delivery Room Air 05/29/24 16:30 05/29/24 16:34 05/29/24 16:45 Temperature Pulse Rate Respiratory Rate Blood Pressure 103/68 103/70 Pulse Oximetry 97 97 98 Oxygen Delivery 05/29/24 16:46 05/29/24 17:00 05/29/24 18:38 Temperature Pulse Rate 70 Respiratory Rate 16 14 Blood Pressure 103/69 Pulse Oximetry 98 97 98 Oxygen Delivery Room Air 05/29/24 18:07 05/29/24 20:00 Temperature 36.7 C Pulse Rate 78 Respiratory Rate 12 Blood Pressure 98/62 L Pulse Oximetry 98 Oxygen Delivery Room Air Exam Narrative: GENERAL: uncomfortable appearing HEAD: Normocephalic, atraumatic. ENT:? Mucous membranes moist. CHEST: Clear to auscultation.? No respiratory distress. HEART: Regular rate and rhythm. ? Normal peripheral pulses. ABDOMEN: right lower quadrant tenderness to palpation, mild left lower quadrant tenderness to palpation, hypoactive bowel sounds EXTREMITIES: Normal range of motion. No peripheral edema. SKIN: Warm dry normal color NEURO: Alert and oriented x3. PSYCH: Normal mood and affect H&P: Results Labs Labs: Short CBC 05/29/24 Range/Units 15:22 WBC 11.2 H (4.5-10.0) K/mm3 Hgb 13.2 (12.0-15.0) g/dL Hct 39.1 (37.0-47.0) % Plt Count 286 (150-375) k/mm3 BMP 05/29/24 15:22 Sodium 138 Potassium 3.6 Chloride 104 Carbon Dioxide 28 BUN 8 Creatinine 0.70 Glucose 119 H Calcium 8.8 Liver Function 05/29/24 Range/Units 15:22 Total Bilirubin 0.5 (0.2-1.3) mg/dL AST 26 (14-36) U/L ALT 18 (6-35) U/L Alkaline Phosphatase 55 (38-126) U/L Albumin 4.2 (3.5-5.1) g/dL Urine 05/29/24 Range/Units 15:55 Urine Color Yellow (Yellow) Urine Appearance Clear (Clear) Urine pH 5.5 (5.0-9.0) Ur Specific [place] > 1.045 H (1.001-1.035) Urine Protein 1+ H (Negative) mg/dL Urine Glucose (UA) Negative (Negative) mg/dL Pulse Oximetry SpO2 results: 97-100% on room air Attestation: I personally reviewed and interpreted this pulse oximetry as follows: Interpretation: no need for supplemental oxygenation at this time Imaging CT scan - abdomen: Radiologist's impression: Ordering Physician: Keisha Jarquin PA-C Date of Service: 05/29/24 Procedure(s): CT abdomen pelvis w con Accession Number(s): [id number] cc: Keisha Jarquin PA-C~ CT of the Abdomen and Pelvis: Indication: Abdominal pain Technique: 2.5 mm axial scans were obtained through the abdomen and pelvis following intravenous administration of 100 cc of Omnipaque 350. Dose reduction technique was used on this scan by utilizing automated exposure control and iterative reconstruction technique. The dose-length product (DLP) was 394.86 mGy-cm. Findings: Scans through the lung bases are unremarkable. The liver, spleen, pancreas, adrenals and kidneys are within normal limits. Small calcified gallstones are present. No evidence of aortic aneurysm. No lymphadenopathy. There is probable acute sigmoid diverticulitis with complex intramural abscess measuring 2.5 cm at the mid to distal sigmoid colon (axial image 129 for example). No bowel obstruction. No free air. Images through the pelvis were performed. Urinary bladder unremarkable. Small bilateral adnexal cysts are present. No other adnexal mass evident. Impression: Acute sigmoid diverticulitis with 2.5 cm intramural abscess. Cholelithiasis. Reviewed, dictated and finalized at location . R OPERATOR Assessment and Plan Assessment and plan (1) Abscess of sigmoid colon due to diverticulitis: Code(s): K57.20 - Diverticulitis of large intestine with perforation and abscess without bleeding Status: Acute Assessment and Plan: -Admit to Med/Surg -Consult General Surgery, ER spoke to Dr. Salguero who asked hospitalist service to admit primary -Zosyn ordered -NPO after MN for possible IR drainage vs surgical management, clear liquids for now -2.5 cm complex intramural abscess noted on CT scan earlier today (2) Breast cancer: Code(s): C50.919 - Malignant neoplasm of unspecified site of unspecified female breast Status: Acute Assessment and Plan: -Tamoxifen on hold due to prolonged nausea over the past few months -Noted that patient uses cannabis gummies which may be the cause of her nausea Quality If No VTE Prophylaxis Answer both mechanical and pharmacologic: Reason no mechanical VTE proph: low risk/not indicated Reason no pharmacologic proph: low risk/not indicated Hospitalist MIPS Advance Care Plan I have confirmed that the patient's Advanced Care Plan is present, code status is documented, or surrogate decision maker is listed in patient medical record.: Yes Medication Reconciliation I have utilized all available resources to obtain, update and review the patients current medications (includes all prescriptions, OTC, herbals, cannabis, and nutritional supplements).: Yes
[2024-05-29] MEDS: ONDANSETRON INJ 4 MG/2 ML VIAL IV PUSH (20:52)
[2024-05-29] MEDS: KETOROLAC 15 MG/ML VIAL (*BKC) IV PUSH (20:52)
[2024-05-30] MEDS: SODIUM CHLORIDE 0.9% IV 1,000 ML 125 ML IV CONT ×2 (02:04→10:10)
[2024-05-30] MEDS: PIPERACILLN/TAZ 3.375GM/NS50ML 3.375 GM/50 ML BAG IVPB ×4 (05:10→23:31)
[2024-05-30] MEDS: ONDANSETRON INJ 4 MG/2 ML VIAL IV PUSH ×3 (05:11→23:32)
[2024-05-30] MEDS: KETOROLAC 15 MG/ML VIAL (*BKC) IV PUSH ×3 (05:11→18:33)
[2024-05-30 06:00] VITALS: BP 96/51; PULSE 58; RESP 20; TEMP 36.8; O2SAT 93
--- NOTE | 2024-05-30 08:13 | P.PNIM_ITS ---
Progress Note: A&P Assessment and Plan (1) Abscess of sigmoid colon due to diverticulitis: Code(s): K57.20 - Diverticulitis of large intestine with perforation and abscess without bleeding Status: Acute Assessment and Plan: * CT of the abdomen and pelvis showed acute sigmoid diverticulitis with 2.5 cm intramural abscess, cholelithiasis * Continue Zosyn * General surgery consulted * NPO for now, if treating conservatively we will go ahead and advance diet per General surgery recommendation * Blood cultures pending * Continue pain and nausea control (2) Breast cancer: Code(s): C50.919 - Malignant neoplasm of unspecified site of unspecified female breast Status: Acute Assessment and Plan: * Currently undergoing treatment with tamoxifen Time Spent With Patient Time with patient: Greater than 35 minutes Subjective Date/time seen: 05/30/24 08:13 Interval history: Interval history: This is a 53-year-old female with significant past medical history of breast cancer status post bilateral mastectomy who is undergoing treatment with tamoxifen presenting today with a complex 2.5 cm intramural abscess. She reported 3 days of worsening abdominal pain. Workup in the hospital included an abdomen pelvis CT which shown the acute sigmoid diverticulitis with 2.5 cm intramural abscess, cholelithiasis. Initial labs showed a white blood cell count of 11.2 otherwise unremarkable. UA was obtained which shown a urine specific gravity of greater than 1.045, 1+ urine protein, otherwise negative. Blood cultures were obtained and are pending. Patient was started on Zosyn and IV fluids while in the ED. Subjective: Patient denies any fever, chills, vomiting, chest pain, or shortness of breath. Patient endorses nausea, bloating, feeling of fullness, and diffuse abdominal pain. Labs and imaging reviewed. Review of Systems Review of Systems: All systems reviewed & are unremarkable except as noted in HPI and below Constitutional: Constitutional: Reports as per HPI and Reports no additional constitutional complaints Eyes: Eyes: Reports as per HPI and Reports no additional eye complaints ENT: Reports system reviewed and no additional complaints, except as documented and Reports as per HPI Cardiovascular: Cardiovascular: Reports as per HPI and Reports no additional cardiovascular complaints Respiratory: Respiratory: Reports as per HPI and Reports no additional respiratory complaints Gastrointestinal: Gastrointestinal: Reports as per HPI and Reports no additi onal gastrointestinal complaints Genitourinary: Genitourinary: Reports no additional female genitourinary complaints and Reports as per HPI Musculoskeletal: Musculoskeletal: Reports no additional musculoskeletal complaints and Reports as per HPI Integumentary/Breasts: Skin/Breast: Reports system reviewed and no additional complaints, except as docu and Reports as per HPI Neurologic: Reports system reviewed and no additional complaints, except as documented and Reports as per HPI Psychiatric: Psychiatric: Reports no additional psychiatric complaints and Reports as per HPI Exam Narrative: General: In no acute distress, well nourished Head: atraumatic, no encephalopathy Eyes:PERRLA, sclera clear ENT: moist mucous membranes, nasal passages clear Neck: supple, no JVD, no adenopathy, trachea midline Cardiac: Normal S1 and S2. No murmur, gallops or friction rubs, peripheral pulses intact. Respiratory: Lungs clear to auscultation, no adventitious lung sounds, currently on room air Gastrointestinal: soft, non-distended, tenderness noted across abdomen and radiating to her back, hypoactive bowel sounds. Reported Nausea, bloating, feeling of fullness. : voiding without difficulty. Extremities: moves all extremities well, no edema, good ROM, strength 5/5 Skin: clean, dry, intact. No wounds or lesions. Neuro: Alert and oriented x4, cranial nerves intact, no neuro deficits. Psych: normal mood, normal affect, interactive Objective Data Vital Signs Vital Signs: Vital Signs - 24 hr 05/29/24 15:00 05/29/24 16:19 05/29/24 16:20 Temperature 97.6 F Pulse Rate 80 78 Respiratory Rate 16 16 Blood Pressure 118/80 105/75 Pulse Oximetry 99 97 97 Oxygen Delivery Room Air 05/29/24 16:30 05/29/24 16:34 05/29/24 16:45 Temperature Pulse Rate Respiratory Rate Blood Pressure 103/68 103/70 Pulse Oximetry 97 97 98 Oxygen Delivery 05/29/24 16:46 05/29/24 17:00 05/29/24 18:38 Temperature Pulse Rate 70 Respiratory Rate 16 14 Blood Pressure 103/69 Pulse Oximetry 98 97 98 Oxygen Delivery Room Air 05/29/24 18:07 05/29/24 20:00 05/29/24 21:11 Temperature 98.1 F 98.2 F Pulse Rate 78 76 Respiratory Rate 12 18 Blood Pressure 98/62 L 97/57 L Pulse Oximetry 98 97 Oxygen Delivery Room Air 05/30/24 06:00 Temperature 98.3 F Pulse Rate 58 L Respiratory Rate 20 Blood Pressure 96/51 L Pulse Oximetry 93 Oxygen Delivery Intake/Output Intake/Output: Intake & Output 05/27/24 05/28/24 05/29/24 05/30/24 23:59 23:59 23:59 23:59 Intake Total 100 1290 Balance 100 1290 Meds/Results Medications: Active Medications Generic Name Dose Route Start Last Admin Trade Name Freq PRN Reason Stop Dose Admin Acetaminophen 325 mg 05/29/24 20:43 Acetaminophen 325 Mg Tablet PO Q4H PRN Mild Pain (1-3) or Fever Hydromorphone HCl 1 mg 05/29/24 20:43 Hydromorphone Hcl Inj (*Crx) 1 Mg/Ml Syr IV PUSH Q3H PRN Pain Rated 7-10 Piperacillin/Tazobactam/Dextrose 3.375 gm in 50 mls @ 100 mls/hr 05/29/24 23:00 05/30/24 05:40 Zosyn 3.375 Gm/Ns 50 Ml IVPB Infused Q6HR MARCK Infusion Sodium Chloride 1,000 mls @ 125 mls/hr 05/29/24 17:10 05/30/24 02:04 Normal Saline Iv IV CONT 125 mls/hr .Q8H MARCK Administration Ketorolac Tromethamine 15 mg 05/29/24 20:43 05/30/24 05:11 Ketorolac 15 Mg/Ml Vial (*Bkc) IV PUSH 15 mg Q6H PRN Administration Pain Rated 4-6 Ondansetron HCl 4 mg 05/29/24 17:06 05/30/24 05:11 Ondansetron Inj 4 Mg/2 Ml Vial IV PUSH 4 mg Q4H PRN Administration Nausea Ondansetron HCl 4 mg 05/29/24 20:43 Ondansetron Inj 4 Mg/2 Ml Vial IV PUSH Q4H PRN Nausea And Vomiting Labs Labs: Laboratory Results - last 24 hr 05/29/24 05/29/24 15:22 15:55 WBC 11.2 H RBC 4.37 Hgb 13.2 Hct 39.1 MCV 89.5 MCH 30.2 MCHC 33.8 RDW 12.8 Plt Count 286 MPV 9.2 Immature Gran % (Auto) 0.4 Neut % (Auto) 71.8 Lymph % (Auto) 18.8 [place] % (Auto) 6.8 Eos % (Auto) 1.8 Baso % (Auto) 0.4 Lymph # (Auto) 2.10 [place] # (Auto) 0.8 H Eos # (Auto) 0.2 Baso # (Auto) 0.1 Abs Immat Gran (auto) 0.04 H Absolute Neuts (auto) 8.1 H Absolute Nucleated RBC 0.000 Nucleated RBC % 0.0 Sodium 138 Potassium 3.6 Chloride 104 Carbon Dioxide 28 Anion Gap 6 BUN 8 Creatinine 0.70 Estim Creat Clear Calc 79 Estimated GFR > 60 Glucose 119 H Lactic Acid 1.6 Calcium 8.8 Total Bilirubin 0.5 AST 26 ALT 18 Alkaline Phosphatase 55 Total Protein 8.0 Albumin 4.2 Lipase 62 Urine Color Yellow Urine Appearance Clear Urine pH 5.5 Ur Specific [place] > 1.045 H Urine Protein 1+ H Urine Glucose (UA) Negative Urine Ketones Negative Ur Blood (Man) Negative Urine Nitrate Negative Urine Bilirubin Negative Urine Urobilinogen 0.2 Leukocyte Esterase Rfl Negative Urine RBC 0-2 Urine WBC 0-5 Ur Squamous Epith Cells None seen Urine Bacteria None seen Urine Casts 0-2 Quality VTE Prophylaxis VTE prophylaxis: mechanical ordered
[2024-05-30 10:03] LABS: Hematocrit 33.9 % (37.0-47.0); Hemoglobin 11.1 g/dL (12.0-15.0); Mean Corpuscular HGB Conc 32.7 g/dl (32-36); Mean Corpuscular Volume 91.6 fl (80-100); Platelet Count Result 242 k/mm3 (150-375); Red Cell Distribution Width 12.9 % (11.5-14.5); White Blood Count 7.4 K/mm3 (4.5-10.0)
--- NOTE | 2024-05-30 11:49 | P.CONGS_ITS ---
Assessment and Plan Assessment and plan (1) Abscess of sigmoid colon due to diverticulitis: Code(s): K57.20 - Diverticulitis of large intestine with perforation and abscess without bleeding Status: Acute Assessment and Plan: CT scan shows evidence of sigmoid diverticulitis with a 2.5 cm intramural abscess. She has expected lower abdominal tenderness on exam, but no peritoneal signs. No evidence of perforation on CT. We would recommend conservative management with IV antibiotics. Will start a clear liquid diet. Continue to monitor with serial abdominal exams and labs. (2) Breast cancer: Code(s): C50.919 - Malignant neoplasm of unspecified site of unspecified female breast Status: Acute Assessment and Plan: Diagnosed with breast cancer in December of 2022 status post bilateral mastectomy and currently on hormone therapy. (3) Cholelithiasis: Code(s): K80.20 - Calculus of gallbladder without cholecystitis without obstruction Status: Acute Assessment and Plan: Incidental finding on CT scan. Discussed these findings with the patient. No CT evidence of cholecystitis and she seems to be asymptomatic. Discussed with the patient that this can be monitored and what symptoms to look for in the f uture that would suggest gallbladder disease. Plan I have discussed the patient's case and plan of care with Dr. Salguero. Thank you for allowing us to see the patient in consultation and we will continue to follow along with you. History of Present Illness Consult details Consult date: 05/30/24 Reason for consult: other (Diverticulitis with intramural abscess) Requesting physician: Akhil Cordero MD Narrative: This is a 53-year-old woman who has a history of breast cancer diagnosed about 1.5 years ago and status post bilateral mastectomy currently on tamoxifen. She started feeling nauseous weeks ago. Her oncologist recommended stopping the tamoxifen for a month to see if this would help, but she has had no relief in her nausea over the past 3 weeks while off the medication. Then, 4 days ago, she developed lower abdominal pain. She noticed diarrhea this same day, which continued into the weekend. No blood in her stools. Her pain continued to progress and she went to see her PCP yesterday, who ordered a CT scan of the abdomen and pelvis as an outpatient. This showed acute sigmoid diverticulitis with a 2.5 cm intramural abscess. Incidentally noted is cholelithiasis with no other abnormalities of the gallbladder. She was directed to the ED for evaluati on. [place] [address]. UA negative for UTI. She was admitted to the hospitalist service and started on IV antibiotics. Our service was consulted for the diverticulitis with intramural abscess. She is now seen on the medical floor. She denies any history of diverticulitis. She does report having a colonoscopy earlier this year, in the spring, which was reportedly negative for any abnormal findings. She denies any previous abdominal surgeries. Review of Systems Review of Systems: All systems reviewed & are unremarkable except as noted in HPI and below PMFSH Past Medical History Medical History Breast cancer Surgical History Surgical History History of bilateral mastectomy Family History Family History Other No significant family history Social History Social History Smoking status: Never smoker Alcohol intake: never Substance use: current Other substance usage details: marijuana gummies Last use: 05/28/24 Do You Feel Safe in your Home?: Yes Lack of Transportation: No Lack of Food: Never True Current Housing: I Have Housing Concerned About Future Housing: No Difficulty Paying Gas/Electric Bills: No Difficulty Paying for Meds: No Currently Unemployed: No Education: Bachelor's Degree Difficulty w/ Childcare or Family Care: No Spiritual care concerns: No Meds Home Medications and Allergies Home Medications Medication Instructions Recorded Confirmed Type No Home Medications 05/29/24 05/29/24 History Allergies Allergy/AdvReac Type Severity Reaction Status Date / Time No Known Allergies Allergy Verified 05/29/24 18:03 Vital Signs Vital Signs - 24 hr 05/29/24 15:00 05/29/24 16:19 05/29/24 16:20 Temperature 97.6 F Pulse Rate 80 78 Respiratory Rate 16 16 Blood Pressure 118/80 105/75 Pulse Oximetry 99 97 97 Oxygen Delivery Room Air 05/29/24 16:30 05/29/24 16:34 05/29/24 16:45 Temperature Pulse Rate Respiratory Rate Blood Pressure 103/68 103/70 Pulse Oximetry 97 97 98 Oxygen Delivery 05/29/24 16:46 05/29/24 17:00 05/29/24 18:38 Temperature Pulse Rate 70 Respiratory Rate 16 14 Blood Pressure 103/69 Pulse Oximetry 98 97 98 Oxygen Delivery Room Air 05/29/24 18:07 05/29/24 20:00 05/29/24 21:11 Temperature 98.1 F 98.2 F Pulse Rate 78 76 Respiratory Rate 12 18 Blood Pressure 98/62 L 97/57 L Pulse Oximetry 98 97 Oxygen Delivery Room Air 05/30/24 06:00 Temperature 98.3 F Pulse Rate 58 L Respiratory Rate 20 Blood Pressure 96/51 L Pulse Oximetry 93 Oxygen Delivery Exam Const: General: comfortable and no acute distress Nutritional Appearance: average body habitus Orientation/consciousness: patient oriented x3 HENMT: Head: normocephalic and atraumatic Ears: hearing grossly normal bilaterally Mouth: Yes moist mucous membranes Eyes: General: appearance normal, both eyes and all related structures Pupils: Equal, round and reactive pupils present Neck: Neck: normal visual inspection and full ROM Chest: Other: Status post bilateral mastectomy with scarring across inferior chest Resp: Effort & Inspection: no respiratory distress Auscultation: clear to auscultation bilaterally Cardio: Rate: regular rate Rhythm: regular rhythm Heart sounds: S1 normal heart sound present and S2 normal heart sound present Peripheral pulses: Peripheral pulses 2+ throughout GI: Inspection: non-distended, no scars, striae and no visible herniation GI Palp: Yes Soft to palpation, Yes Tenderness to palpation present (GI) (Tenderness across the entire lower abdomen), No Guarding due to palpation present (GI), Yes No hepatosplenomegaly present and No Rebound tenderness present Percussion: Yes normal to percussion Auscultation: normal bowel sounds Skin: General skin exam: normal color Neuro: General: moves all extremities and no focal motor deficits Speech: normal speech Motor exam (neuro): 5/5 motor strength present throughout Extrem: General: normal to inspection and no edema Psych: Mental Status: mental status grossly normal Attitude: cooperative Insight: Good insight present (Psych) Judgement: Good judgement present (Psych) Results Labs 05/30/24 09:58 05/29/24 15:22 Labs: Abnormal lab results 11/18/24 11/18/24 11/19/24 Range/Units 15:22 15:55 09:58 WBC 11.2 H (4.5-10.0) K/mm3 RBC 3.70 L (4.2-5.4) M/mm3 Hgb 11.1 L (12.0-15.0) g/dL Hct 33.9 L (37.0-47.0) % [place] # (Auto) 0.8 H (0.1-0.6) K/mm3 Abs Immat Gran (auto) 0.04 H (0.00-0.031) K/mm3 Absolute Neuts (auto) 8.1 H (1.3-6.7) K/mm3 Glucose 119 H (65-110) mg/dL Ur Specific [place] > 1.045 H (1.001-1.035) Urine Protein 1+ H (Negative) mg/dL Diabetes panel 05/29/24 Range/Units 15:22 Sodium 138 (137-145) mmol/L Potassium 3.6 (3.4-5.0) mmol/L Chloride 104 (98-107) mmol/L Carbon Dioxide 28 (22-30) mmol/L BUN 8 (7-17) mg/dL Creatinine 0.70 (0.7-1.0) mg/dL Glucose 119 H (65-110) mg/dL Calcium 8.8 (8.4-10.2) mg/dL AST 26 (14-36) U/L ALT 18 (6-35) U/L Alkaline Phosphatase 55 (38-126) U/L Total Protein 8.0 (6.3-8.2) g/dL Albumin 4.2 (3.5-5.1) g/dL Calcium panel 05/29/24 Range/Units 15:22 Calcium 8.8 (8.4-10.2) mg/dL Albumin 4.2 (3.5-5.1) g/dL Pituitary panel 05/29/24 Range/Units 15:22 Sodium 138 (137-145) mmol/L Potassium 3.6 (3.4-5.0) mmol/L Chloride 104 (98-107) mmol/L Carbon Dioxide 28 (22-30) mmol/L BUN 8 (7-17) mg/dL Creatinine 0.70 (0.7-1.0) mg/dL Glucose 119 H (65-110) mg/dL Calcium 8.8 (8.4-10.2) mg/dL Adrenal panel 05/29/24 Range/Units 15:22 Sodium 138 (137-145) mmol/L Potassium 3.6 (3.4-5.0) mmol/L Chloride 104 (98-107) mmol/L Carbon Dioxide 28 (22-30) mmol/L BUN 8 (7-17) mg/dL Creatinine 0.70 (0.7-1.0) mg/dL Glucose 119 H (65-110) mg/dL Calcium 8.8 (8.4-10.2) mg/dL Total Bilirubin 0.5 (0.2-1.3) mg/dL AST 26 (14-36) U/L ALT 18 (6-35) U/L Alkaline Phosphatase 55 (38-126) U/L Total Protein 8.0 (6.3-8.2) g/dL Albumin 4.2 (3.5-5.1) g/dL All other labs normal.
[2024-05-30 13:52] VITALS: BP 105/61; PULSE 62; RESP 18; TEMP 36.4; O2SAT 99
[2024-05-30] MEDS: HYDROmorphone HCL INJ (*CRX) 1 MG/ML SYR IV PUSH (20:19)
[2024-05-30 21:04] VITALS: BP 91/51; PULSE 64; RESP 20; TEMP 36.8; O2SAT 100
[2024-05-31] MEDS: SODIUM CHLORIDE 0.9% IV 1,000 ML 70 ML IV CONT ×2 (02:21→17:01)
[2024-05-31] MEDS: HYDROmorphone HCL INJ (*CRX) 1 MG/ML SYR IV PUSH ×4 (02:21→20:58)
[2024-05-31] MEDS: PIPERACILLN/TAZ 3.375GM/NS50ML 3.375 GM/50 ML BAG IVPB ×4 (05:28→23:33)
[2024-05-31] MEDS: ONDANSETRON INJ 4 MG/2 ML VIAL IV PUSH ×4 (05:31→20:58)
[2024-05-31 05:33] LABS: Hematocrit 36.3 % (37.0-47.0); Hemoglobin 11.7 g/dL (12.0-15.0); Mean Corpuscular HGB Conc 32.2 g/dl (32-36); Mean Corpuscular Hemoglobin 29.8 pg (26-34); Mean Corpuscular Volume 92.6 fl (80-100); Mean Platelet Volume 9.8 fl (7.4-10.4); Platelet Count Result 245 k/mm3 (150-375); Red Blood Count 3.92 M/mm3 (4.2-5.4); Red Cell Distribution Width 12.8 % (11.5-14.5)
[2024-05-31 05:52] LABS: Anion Gap 3 mmol/L (4-12); Blood Urea Nitrogen 8 mg/dL (7-17); Calcium 8.2 mg/dL (8.4-10.2); Carbon Dioxide 24 mmol/L (22-30); Chloride 111 mmol/L (98-107); Estimated CRCL calculation 70 ml/min; Estimated Glomerular Filt Rate > 60; Glucose 94 mg/dL (65-110); Potassium 4.2 mmol/L (3.4-5.0); Sodium 138 mmol/L (137-145)
[2024-05-31 06:00] VITALS: BP 101/61; PULSE 63; RESP 20; TEMP 36.6; O2SAT 100
--- NOTE | 2024-05-31 09:15 | P.PNIM_ITS ---
Progress Note: A&P Assessment and Plan (1) Abscess of sigmoid colon due to diverticulitis: Code(s): K57.20 - Diverticulitis of large intestine with perforation and abscess without bleeding Status: Acute Assessment and Plan: * CT of the abdomen and pelvis showed acute sigmoid diverticulitis with 2.5 cm intramural abscess, cholelithiasis * Continue Zosyn * General surgery consulted treating conservatively we will go ahead and advance diet per General surgery recommendation * Blood cultures - neg prelim * Continue pain and nausea control (2) Breast cancer: Code(s): C50.919 - Malignant neoplasm of unspecified site of unspecified female breast Status: Acute Assessment and Plan: * Currently undergoing treatment with tamoxifen Time Spent With Patient Time with patient: Greater than 35 minutes Subjective Date/time seen: 05/31/24 09:15 Interval history: Interval history: This is a 53-year-old female with significant past medical history of breast cancer status post bilateral mastectomy who is undergoing treatment with tamoxifen presenting today with a complex 2.5 cm intramural abscess. She reported 3 days of worsening abdominal pain. Workup in the hospital included an abdomen pelvis CT which shown the acute sigmoid diverticulitis with 2.5 cm intramural abscess, cholelithiasis. Initial labs showed a white blood cell count of 11.2 otherwise unremarkable. UA was obtained which shown a urine specific gravity of greater than 1.045, 1+ urine protein, otherwise negative. Blood cultures were obtained and are pending. Patient was started on Zosyn and IV fluids while in the ED. Subjective: Patient denies any fever, chills, vomiting, chest pain, or shortness of breath. Patient endorses nausea, bloating, feeling of fullness, and diffuse abdominal pain. Labs and imaging reviewed. 05/31 - pt is seen and examined. Following by gen surgery- conservative measures for now, advance to low fiber diet Review of Systems Review of Systems: All systems reviewed & are unremarkable except as noted in HPI and below Constitutional: Constitutional: Reports as per HPI and Reports no additional constitutional complaints Eyes: Eyes: Reports as per HPI and Reports no additional eye complaints ENT: Reports system reviewed and no additional complaints, except as documented and Reports as per HPI Cardiovascular: Cardiovascular: Reports as per HPI and Reports no additional cardiovascular complaints Respiratory: Respiratory: Reports as per HPI and Reports no additional respiratory complaints Gastrointestinal: Gastrointestinal: Reports as per HPI and Reports no additional gastrointestinal complaints Genitourinary: Genitourinary: Reports no additional female genitourinary complaints and Reports as per HPI Musculoskeletal: Musculoskeletal: Reports no additional musculoskeletal complaints and Reports as per HPI Integumentary/Breasts: Skin/Breast: Reports system reviewed and no additional complaints, except as docu and Reports as per HPI Neurologic: Reports system reviewed and no additional complaints, except as documented and Reports as per HPI Psychiatric: Psychiatric: Reports no additional psychiatric complaints and Reports as per HPI Exam Narrative: General: In no acute distress, well nourished Head: atraumatic, no encephalopathy Eyes:PERRLA, sclera clear ENT: moist mucous membranes, nasal passages clear Neck: supple, no JVD, no adenopathy, trachea midline Cardiac: Normal S1 and S2. No murmur, gallops or friction rubs, peripheral pulses intact. Respiratory: Lungs clear to auscultation, no adventitious lung sounds, currently on room air Gastrointestinal: soft, non-distended, tenderness noted across abdomen and radiating to her back, hypoactive bowel sounds. Reported Nausea, bloating, feeling of fullness. : voiding without difficulty. Extremities: moves all extremities well, no edema, good ROM, strength 5/5 Skin: clean, dry, intact. No wounds or lesions. Neuro: Alert and oriented x4, cranial nerves intact, no neuro deficits. Psych: normal mood, normal affect, interactive Const: General: comfortable Objective Data Vital Signs Vital Signs: Vital Signs - 24 hr 05/30/24 13:52 05/30/24 20:00 05/30/24 21:04 Temperature 97.6 F 98.2 F Pulse Rate 62 64 Respiratory Rate 18 20 Blood Pressure 105/61 91/51 L Pulse Oximetry 99 100 Oxygen Delivery Room Air 05/31/24 06:00 Temperature 97.8 F Pulse Rate 63 Respiratory Rate 20 Blood Pressure 101/61 Pulse Oximetry 100 Oxygen Delivery Intake/Output Intake/Output: Intake & Output 05/28/24 05/29/24 05/30/24 05/31/24 23:59 23:59 23:59 23:59 Intake Total 100 4100.0 580 Balance 100 4100.0 580 Meds/Results Medications: Active Medications Generic Name Dose Route Start Last Admin Trade Name Freq PRN Reason Stop Dose Admin Acetaminophen 325 mg 05/29/24 20:43 Acetaminophen 325 Mg Tablet PO Q4H PRN Mild Pain (1-3) or Fever Hydromorphone HCl 1 mg 05/29/24 20:43 05/31/24 05:31 Hydromorphone Hcl Inj (*Crx) 1 Mg/Ml Syr IV PUSH 1 mg Q3H PRN Administration Pain Rated 7-10 Piperacillin/Tazobactam/Dextrose 3.375 gm in 50 mls @ 100 mls/hr 05/29/24 23:00 05/31/24 05:58 Zosyn 3.375 Gm/Ns 50 Ml IVPB Infused Q6HR MARCK Infusion Sodium Chloride 1,000 mls @ 70 mls/hr 05/29/24 17:10 05/31/24 02:21 Normal Saline Iv IV CONT 70 mls/hr .[id number] MARCK Administration Ketorolac Tromethamine 15 mg 05/29/24 20:43 05/30/24 18:33 Ketorolac 15 Mg/Ml Vial (*Bkc) IV PUSH 15 mg Q6H PRN Administration Pain Rated 4-6 Ondansetron HCl 4 mg 05/29/24 17:06 05/31/24 05:31 Ondansetron Inj 4 Mg/2 Ml Vial IV PUSH 4 mg Q4H PRN Administration Nausea Labs Labs: Laboratory Results - last 24 hr 05/30/24 05/31/24 09:58 04:59 WBC 7.4 8.0 RBC 3.70 L 3.92 L Hgb 11.1 L 11.7 L Hct 33.9 L 36.3 L MCV 91.6 92.6 MCH 30.0 29.8 MCHC 32.7 32.2 RDW 12.9 12.8 Plt Count 242 245 MPV 9.0 9.8 Sodium 138 Potassium 4.2 Chloride 111 H Carbon Dioxide 24 Anion Gap 3 L BUN 8 Creatinine 0.80 Estim Creat Clear Calc 70 Estimated GFR > 60 Glucose 94 Calcium 8.2 L Quality VTE Prophylaxis VTE prophylaxis: mechanical ordered
[2024-05-31] MEDS: ACETAMINOPHEN 325 MG TABLET PO (09:52)
--- NOTE | 2024-05-31 10:37 | PM.PNGS ---
Progress Note: A&P Assessment and Plan (1) Abscess of sigmoid colon due to diverticulitis: Code(s): K57.20 - Diverticulitis of large intestine with perforation and abscess without bleeding Status: Acute Assessment and Plan: still c mod pain, cont IV abx, analgesics, advance diet as tereza to low fiber diet, encourage OOB Subjective Subjective Date/Time Seen: 05/31/24 10:37 Interval history: still c mod pain in lower abd, no bowel fxn, tereza clears Review of Systems Review of Systems: All systems reviewed & are unremarkable except as noted in HPI and below Exam Const: General: cooperative, comfortable and no acute distress Resp: Auscultation: clear to auscultation bilaterally Cardio: Rate: regular rate Rhythm: regular rhythm GI: Inspection: normal to inspection and distended GI Palp: Yes abdominal tenderness, Yes Soft to palpation, Yes Tenderness to palpation present (GI), No Guarding due to palpation present (GI) and No Rigid due to palpation Objective Data Vital Signs Vital Signs: Vital Signs - 24 hr 05/30/24 13:52 05/30/24 20:00 05/30/24 21:04 Temperature 36.4 C 36.8 C Pulse Rate 62 64 Respiratory Rate 18 20 Blood Pressure 105/61 91/51 L Pulse Oximetry 99 100 Oxygen Delivery Room Air 05/31/24 06:00 Temperature 36.6 C Pulse Rate 63 Respiratory Rate 20 Blood Pressure 101/61 Pulse Oximetry 100 Oxygen Delivery Intake/Output Intake/Output: Intake & Output 05/28/24 05/29/24 05/30/24 05/31/24 23:59 23:59 23:59 23:59 Intake Total 100 4100.0 820 Balance 100 4100.0 820 Meds/Results Medications: Active Medications Generic Name Dose Route Start Last Admin Trade Name Freq PRN Reason Stop Dose Admin Acetaminophen 325 mg 05/29/24 20:43 05/31/24 09:52 Acetaminophen 325 Mg Tablet PO 325 mg Q4H PRN Administration Mild Pain (1-3) or Fever Hydromorphone HCl 1 mg 05/29/24 20:43 05/31/24 05:31 Hydromorphone Hcl Inj (*Crx) 1 Mg/Ml Syr IV PUSH 1 mg Q3H PRN Administration Pain Rated 7-10 Piperacillin/Tazobactam/Dextrose 3.375 gm in 50 mls @ 100 mls/hr 05/29/24 23:00 05/31/24 05:58 Zosyn 3.375 Gm/Ns 50 Ml IVPB Infused Q6HR MARCK Infusion Sodium Chloride 1,000 mls @ 70 mls/hr 05/29/24 17:10 05/31/24 02:21 Normal Saline Iv IV CONT 70 mls/hr .[id number] MARCK Administration Ketorolac Tromethamine 15 mg 05/29/24 20:43 05/30/24 18:33 Ketorolac 15 Mg/Ml Vial (*Bkc) IV PUSH 15 mg Q6H PRN Administration Pain Rated 4-6 Ondansetron HCl 4 mg 05/29/24 17:06 05/31/24 05:31 Ondansetron Inj 4 Mg/2 Ml Vial IV PUSH 4 mg Q4H PRN Administration Nausea Labs Labs: Laboratory Results - last 24 hr 05/31/24 04:59 WBC 8.0 RBC 3.92 L Hgb 11.7 L Hct 36.3 L MCV 92.6 MCH 29.8 MCHC 32.2 RDW 12.8 Plt Count 245 MPV 9.8 Sodium 138 Potassium 4.2 Chloride 111 H Carbon Dioxide 24 Anion Gap 3 L BUN 8 Creatinine 0.80 Estim Creat Clear Calc 70 Estimated GFR > 60 Glucose 94 Calcium 8.2 L
[2024-05-31] MEDS: KETOROLAC 15 MG/ML VIAL (*BKC) IV PUSH (11:34)
[2024-05-31 13:58] VITALS: BP 109/56; PULSE 84; RESP 12; TEMP 36.9; O2SAT 97
[2024-05-31] MEDS: SACCHAROMYCES BOULARDII 250 MG CAPSULE PO (17:01)
[2024-05-31 22:00] VITALS: BP 99/49; PULSE 63; RESP 18; TEMP 36.8; O2SAT 97
[2024-06-01] MEDS: ONDANSETRON INJ 4 MG/2 ML VIAL IV PUSH ×2 (04:23→12:29)
[2024-06-01] MEDS: HYDROmorphone HCL INJ (*CRX) 1 MG/ML SYR IV PUSH (04:23)
[2024-06-01] MEDS: PIPERACILLN/TAZ 3.375GM/NS50ML 3.375 GM/50 ML BAG IVPB ×4 (05:56→23:23)
[2024-06-01 06:00] VITALS: BP 105/64; PULSE 66; RESP 18; TEMP 36.7; O2SAT 96
[2024-06-01] MEDS: SACCHAROMYCES BOULARDII 250 MG CAPSULE PO ×3 (08:30→17:15)
[2024-06-01] MEDS: SODIUM CHLORIDE 0.9% IV 1,000 ML 70 ML IV CONT (08:32)
--- NOTE | 2024-06-01 08:39 | P.PNIM_ITS ---
Progress Note: A&P Assessment and Plan (1) Abscess of sigmoid colon due to diverticulitis: Code(s): K57.20 - Diverticulitis of large intestine with perforation and abscess without bleeding Status: Acute Assessment and Plan: * CT of the abdomen and pelvis showed acute sigmoid diverticulitis with 2.5 cm intramural abscess, cholelithiasis * Continue Zosyn * General surgery consulted treating conservatively we will go ahead and advance diet per General surgery recommendation * Blood cultures - neg prelim * Continue pain and nausea control * - continue to advance diet to low fiber as tolerated (2) Breast cancer: Code(s): C50.919 - Malignant neoplasm of unspecified site of unspecified female breast Status: Acute Assessment and Plan: * Currently undergoing treatment with tamoxifen Time Spent With Patient Time with patient: Greater than 35 minutes Subjective Date/time seen: 06/01/24 08:39 Interval history: Interval history: This is a 53-year-old female with significant past medical history of breast cancer status post bilateral mastectomy who is undergoing treatment with tamoxifen presenting today with a complex 2.5 cm intramural abscess. She reported 3 days of worsening abdominal pain. Workup in the hospital included an abdomen pelvis CT which shown the acute sigmoid diverticulitis with 2.5 cm intramural abscess, cholelithiasis. Initial labs showed a white blood cell count of 11.2 otherwise unremarkable. UA was obtained which shown a urine specific gravity of greater than 1.045, 1+ urine protein, otherwise negative. Blood cultures were obtained and are pending. Patient was started on Zosyn and IV fluids while in the ED. Subjective: Patient denies any fever, chills, vomiting, chest pain, or shortness of breath. Patient endorses nausea, bloating, feeling of fullness, and diffuse abdominal pain. Labs and imaging reviewed. 05/31 - pt is seen and examined. Following by gen surgery- conservative measures for now, advance to low fiber diet 06/01- still nausea and some abd cramping. IV antibiotics. advance slowly as tolerated. zofran is ordered, probiotics are ordered. Review of Systems Review of Systems: All systems reviewed & are unremarkable except as noted in HPI and below Constitutional: Constitutional: Reports as per HPI and Reports no additional constitutional complaints Eyes: Eyes: Reports as per HPI and Reports no additional eye complaints ENT: Reports system reviewed and no additional complaints, except as documented and Reports as per HPI Cardiovascular: Cardiovascular: Reports as per HPI and Reports no additional cardiovascular complaints Respiratory: Respiratory: Reports as per HPI and Reports no additional respiratory complaints Gastrointestinal: Gastrointestinal: Reports as per HPI and Reports no additional gastrointestinal complaints Genitourinary: Genitourinary: Reports no additional female genitourinary complaints and Reports as per HPI Musculoskeletal: Musculoskeletal: Reports no additional musculoskeletal complaints and Reports as per HPI Integumentary/Breasts: Skin/Breast: Reports system reviewed and no additional complaints, except as docu and Reports as per HPI Neurologic: Reports system reviewed and no additional complaints, except as documented and Reports as per HPI Psychiatric: Psychiatric: Reports no additional psychiatric complaints and Reports as per HPI Exam Narrative: General: In no acute distress, well nourished Head: atraumatic, no encephalopathy Eyes:PERRLA, sclera clear ENT: moist mucous membranes, nasal passages clear Neck: supple, no JVD, no adenopathy, trachea midline Cardiac: Normal S1 and S2. No murmur, gallops or friction rubs, peripheral pulses intact. Respiratory: Lungs clear to auscultation, no adventitious lung sounds, currently on room air Gastrointestinal: soft, non-distended, tenderness noted across abdomen and radiating to her back, hypoactive bowel sounds. Reported Nausea, bloating, feel ing of fullness. : voiding without difficulty. Extremities: moves all extremities well, no edema, good ROM, strength 5/5 Skin: clean, dry, intact. No wounds or lesions. Neuro: Alert and oriented x4, cranial nerves intact, no neuro deficits. Psych: normal mood, normal affect, interactive Const: General: comfortable Objective Data Vital Signs Vital Signs: Vital Signs - 24 hr 05/31/24 13:58 05/31/24 20:00 05/31/24 22:00 Temperature 98.5 F 98.2 F Pulse Rate 84 63 Respiratory Rate 12 18 Blood Pressure 109/56 L 99/49 L Pulse Oximetry 97 97 Oxygen Delivery Room Air 06/01/24 06:00 Temperature 98.1 F Pulse Rate 66 Respiratory Rate 18 Blood Pressure 105/64 Pulse Oximetry 96 Oxygen Delivery Intake/Output Intake/Output: Intake & Output 05/29/24 05/30/24 05/31/24 06/01/24 23:59 23:59 23:59 23:59 Intake Total 100 4100.0 2900 1100 Output Total 2 Balance 100 4100.0 2900 1098 Meds/Results Medications: Active Medications Generic Name Dose Route Start Last Admin Trade Name Freq PRN Reason Stop Dose Admin Acetaminophen 325 mg 05/29/24 20:43 05/31/24 09:52 Acetaminophen 325 Mg Tablet PO 325 mg Q4H PRN Administration Mild Pain (1-3) or Fever Hydromorphone HCl 1 mg 05/29/24 20:43 06/01/24 04:23 Hydromorphone Hcl Inj (*Crx) 1 Mg/Ml Syr IV PUSH 1 mg Q3H PRN Administration Pain Rated 7-10 Piperacillin/Tazobactam/Dextrose 3.375 gm in 50 mls @ 100 mls/hr 05/29/24 23:00 06/01/24 06:26 Zosyn 3.375 Gm/Ns 50 Ml IVPB Infused Q6HR MARCK Infusion Sodium Chloride 1,000 mls @ 70 mls/hr 05/29/24 17:10 06/01/24 08:32 Normal Saline Iv IV CONT 70 mls/hr .[id number] MARCK Administration Ketorolac Tromethamine 15 mg 05/29/24 20:43 05/31/24 11:34 Ketorolac 15 Mg/Ml Vial (*Bkc) IV PUSH 15 mg Q6H PRN Administration Pain Rated 4-6 Ondansetron HCl 4 mg 05/31/24 15:35 06/01/24 04:23 Ondansetron Inj 4 Mg/2 Ml Vial IV PUSH 4 mg Q4H PRN Administration Nausea And Vomiting Saccharomyces Boulardii 250 mg 05/31/24 17:00 06/01/24 08:30 Saccharomyces Boulardii 250 Mg Capsule PO 250 mg TID MARCK Administration Quality VTE Prophylaxis VTE prophylaxis: mechanical ordered
[2024-06-01 09:06] VITALS: O2SAT 97
[2024-06-01 14:00] VITALS: BP 135/68; PULSE 70; RESP 14; TEMP 36.7; O2SAT 99
--- NOTE | 2024-06-01 14:01 | PM.PNGS ---
Progress Note: A&P Assessment and Plan (1) Abscess of sigmoid colon due to diverticulitis: Code(s): K57.20 - Diverticulitis of large intestine with perforation and abscess without bleeding Status: Acute Assessment and Plan: Pain worse overnight with episode of vomiting, and still required IV Dilaudid this am. Will transition to oral analgesics. Pain seems to be better this afternoon. Tolerating low fiber diet. Hopefully discharge home tomorrow on oral antibiotics if abdominal pain is better. Will plan to have her f/u in [address] Salguero. Plan I have discussed the patient's case and plan of care with Dr. Salguero. Subjective Subjective Date/Time Seen: 06/01/24 14:01 Patient reports: pain is less, tolerating a regular diet, nausea, vomiting and afebrile Exam Const: General: comfortable and no acute distress Orientation/consciousness: patient oriented x3 GI: Inspection: non-distended GI Palp: Yes Soft to palpation, Yes Tenderness to palpation present (GI) (RLQ and suprapubic tenderness), No Guarding due to palpation present (GI), Yes No hepatosplenomegaly present and No Rebound tenderness present Auscultation: normal bowel sounds Objective Data Vital Signs Vital Signs: Vital Signs - 24 hr 05/31/24 20:00 05/31/24 22:00 06/01/24 06:00 Temperature 98.2 F 98.1 F Pulse Rate 63 66 Respiratory Rate 18 18 Blood Pressure 99/49 L 105/64 Pulse Oximetry 97 96 Oxygen Delivery Room Air 06/01/24 09:06 06/01/24 08:00 Temperature Pulse Rate Respiratory Rate Blood Pressure Pulse Oximetry 97 Oxygen Delivery Room Air Room Air Intake/Output Intake/Output: Intake & Output 05/29/24 05/30/24 05/31/24 06/01/24 23:59 23:59 23:59 23:59 Intake Total 100 4100.0 2900 1340 Output Total 2 Balance 100 4100.0 2900 1338 Meds/Results Medications: Active Medications Generic Name Dose Route Start Last Admin Trade Name Freq PRN Reason Stop Dose Admin Acetaminophen 325 mg 05/29/24 20:43 05/31/24 09:52 Acetaminophen 325 Mg Tablet PO 325 mg Q4H PRN Administration Mild Pain (1-3) or Fever Hydromorphone HCl 1 mg 05/29/24 20:43 06/01/24 04:23 Hydromorphone Hcl Inj (*Crx) 1 Mg/Ml Syr IV PUSH 1 mg Q3H PRN Administration Pain Rated 7-10 Piperacillin/Tazobactam/Dextrose 3.375 gm in 50 mls @ 100 mls/hr 05/29/24 23:00 06/01/24 12:29 Zosyn 3.375 Gm/Ns 50 Ml IVPB 100 mls/hr Q6HR MARCK Administration Sodium Chloride 1,000 mls @ 70 mls/hr 05/29/24 17:10 06/01/24 08:32 Normal Saline Iv IV CONT 70 mls/hr .[id number] MARCK Administration Ketorolac Tromethamine 15 mg 05/29/24 20:43 05/31/24 11:34 Ketorolac 15 Mg/Ml Vial (*Bkc) IV PUSH 15 mg Q6H PRN Administration Pain Rated 4-6 Ondansetron HCl 4 mg 05/31/24 15:35 06/01/24 12:29 Ondansetron Inj 4 Mg/2 Ml Vial IV PUSH 4 mg Q4H PRN Administration Nausea And Vomiting Polyethylene Glycol 17 gm 06/01/24 13:25 Polyethylene Glycol 3350 17 Gm Powd.Pack PO QAM PRN Constipation Saccharomyces Boulardii 250 mg 05/31/24 17:00 06/01/24 12:29 Saccharomyces Boulardii 250 Mg Capsule PO 250 mg TID MARCK Administration
[2024-06-01] MEDS: IBUPROFEN 600 MG TABLET PO (15:15)
[2024-06-01] MEDS: SIMETHICONE 80 MG TAB.CHEW PO ×2 (17:16→20:48)
[2024-06-01 21:47] VITALS: BP 119/68; PULSE 64; RESP 16; TEMP 36.6; O2SAT 98
[2024-06-02] MEDS: PIPERACILLN/TAZ 3.375GM/NS50ML 3.375 GM/50 ML BAG IVPB (05:50)
[2024-06-02] MEDS: polyethylene glycoL 3350 17 GM POWD.PACK PO (05:55)
[2024-06-02] MEDS: ONDANSETRON INJ 4 MG/2 ML VIAL IV PUSH (05:59)
[2024-06-02 06:31] VITALS: BP 116/70; PULSE 54; RESP 16; TEMP 36.3; O2SAT 98
[2024-06-02] MEDS: SIMETHICONE 80 MG TAB.CHEW PO ×2 (09:05→13:07)
[2024-06-02] MEDS: SACCHAROMYCES BOULARDII 250 MG CAPSULE PO ×2 (09:05→13:07)
[2024-06-02] MEDS: IBUPROFEN 600 MG TABLET PO (09:11)
--- NOTE | 2024-06-02 11:33 | PM.PNGS ---
Progress Note: A&P Assessment and Plan (1) Abscess of sigmoid colon due to diverticulitis: Code(s): K57.20 - Diverticulitis of large intestine with perforation and abscess without bleeding Status: Acute Assessment and Plan: exam benign, tereza low fiber diet, +bowel fxn, ok to dc home from surgical standpoint c f/u in 2 wks, home c po abx and low fiber diet Subjective Subjective Date/Time Seen: 06/02/24 11:33 Interval history: feels better, tereza diet, +bowel fxn, wants to go home Review of Systems Review of Systems: All systems reviewed & are unremarkable except as noted in HPI and below Exam Const: General: cooperative, comfortable and no acute distress Cardio: Rate: regular rate Rhythm: regular rhythm GI: Inspection: normal to inspection and non-distended GI Palp: No abdominal tenderness, Yes Soft to palpation, No Tenderness to palpation present (GI), No Guarding due to palpation present (GI) and No Rigid due to palpation Objective Data Vital Signs Vital Signs: Vital Signs - 24 hr 06/01/24 14:00 06/01/24 21:47 06/01/24 20:00 Temperature 36.7 C 36.6 C Pulse Rate 70 64 Respiratory Rate 14 16 Blood Pressure 135/68 119/68 Pulse Oximetry 99 98 Oxygen Delivery Room Air 06/02/24 06:31 06/02/24 09:01 Temperature 36.3 C L Pulse Rate 54 L Respiratory Rate 16 Blood Pressure 116/70 Pulse Oximetry 98 Oxygen Delivery Room Air Intake/Output Intake/Output: Intake & Output 05/30/24 05/31/24 06/01/24 06/02/24 23:59 23:59 23:59 23:59 Intake Total 4100.0 2900 4170 540 Output Total 2 Balance 4100.0 2900 4168 540 Meds/Results Medications: Active Medications Generic Name Dose Route Start Last Admin Trade Name Freq PRN Reason Stop Dose Admin Acetaminophen 325 mg 05/29/24 20:43 05/31/24 09:52 Acetaminophen 325 Mg Tablet PO 325 mg Q4H PRN Administration Mild Pain (1-3) or Fever Hydrocodone Bitart/Acetaminophen 1 tab 06/01/24 14:04 Hydrocodone/Acetaminophen (*Crx) 5-325 Mg Tablet PO Q4H PRN Pain Rated 4-6 Amoxicillin/Clavulanate Potassium 1 tablet 06/02/24 11:30 Amoxicillin/Clavulanate K 875-125 Mg Tab PO Q12HR MARCK Hydromorphone HCl 1 mg 05/29/24 20:43 06/01/24 04:23 Hydromorphone Hcl Inj (*Crx) 1 Mg/Ml Syr IV PUSH 1 mg Q3H PRN Administration Pain Rated 7-10 Ibuprofen 600 mg 06/01/24 14:03 06/02/24 09:11 Ibuprofen 600 Mg Tablet PO 600 mg Q6H PRN Administration Cramping Ondansetron HCl 4 mg 05/31/24 15:35 06/02/24 05:59 Ondansetron Inj 4 Mg/2 Ml Vial IV PUSH 4 mg Q4H PRN Administration Nausea And Vomiting Polyethylene Glycol 17 gm 06/01/24 13:25 06/02/24 05:55 Polyethylene Glycol 3350 17 Gm Powd.Pack PO 17 gm QAM PRN Administration Constipation Saccharomyces Boulardii 250 mg 05/31/24 17:00 06/02/24 09:05 Saccharomyces Boulardii 250 Mg Capsule PO 250 mg TID MARCK Administration Simethicone 80 mg 06/01/24 17:00 06/02/24 09:05 Simethicone 80 Mg Tab.Chew PO 80 mg QID MARCK Administration
[2024-06-02] MEDS: AMOXICILLIN/CLAVULANATE K 875-125 MG TAB 1 TABLET PO (12:19)
--- NOTE | 2024-06-02 13:35 | P.DS_ITS ---
DS: Admitting Diagnosis Discharge Date 06/02 Admitting Diagnosis abd pain DS: Discharge Diagnosis Discharge Diagnosis (1) Abscess of sigmoid colon due to diverticulitis: Code(s): K57.20 - Diverticulitis of large intestine with perforation and abscess without bleeding Status: Acute (2) Breast cancer: Code(s): C50.919 - Malignant neoplasm of unspecified site of unspecified female breast Status: Acute DS: Summary Hospital Course Hospital Course: This is a 53-year-old female with significant past medical history of breast cancer status post bilateral mastectomy who is undergoing treatment with tamoxifen presenting today with a complex 2.5 cm intramural abscess. She reported 3 days of worsening abdominal pain. Workup in the hospital included an abdomen pelvis CT which shown the acute sigmoid diverticulitis with 2.5 cm intramural abscess, cholelithiasis. Initial labs showed a white blood cell count of 11.2 otherwise unremarkable. UA was obtained which shown a urine specific gravity of greater than 1.045, 1+ urine protein, otherwise negative. Blood cultures were obtained -negative. Patient was started on Zosyn and IV fluids while in the ED. 06/02- nausea is better, so she was switched to PO antibiotics. Surgery was following. ok to dc home from surgical standpoint c f/u in 2 wks, home c po abx and low fiber diet Status at Discharge Functional status at discharge: independent ambulation Overall status at discharge: patient is progressing back to baseline Time Spent with Patient Time attestation: Total time spent providing and/or coordinating discharge services: Time spent: Greater than 30 minutes Exam Narrative: General: In no acute distress, well nourished Head: atraumatic, no encephalopathy Eyes:PERRLA, sclera clear ENT: moist mucous membranes, nasal passages clear Neck: supple, no JVD, no adenopathy, trachea midline Cardiac: Normal S1 and S2. No murmur, gallops or friction rubs, peripheral pulses intact. Respiratory: Lungs clear to auscultation, no adventitious lung sounds, currently on room air Gastrointestinal: soft, non-distended, tenderness noted across abdomen and radiating to her back, hypoactive bowel sounds. Reported Nausea, bloating, feeling of fullness. : voiding without difficulty. Extremities: moves all extremities well, no edema, good ROM, strength 5/5 Skin: clean, dry, intact. No wounds or lesions. Neuro: Alert and oriented x4, cranial nerves intact, no neuro deficits. Psych: normal mood, normal affect, interactive Const: General: comfortable DS: Data Data Completed and Pending Completed studies during hospitalization: abd/pelvis CT Labs on day of discharge: Preliminary micro results at discharge 05/29/24 15:55 Blood Culture - Preliminary Blood 05/29/24 15:55 Blood Culture - Preliminary Blood Discharge Plan Discharge Attending physician on discharge: Mathew Issa Consulting providers: Breanne Salguero Discharging Clinician: Grace Duval Patient Disposition: Home, Self-Care Activity: other - see discharge instructions Diet: as tolerated and low fiber Discharge Instructions: Please take your antibiotics- sent per surgery. take probiotics over the counter as augmentin can give you diarrhea. Take zofran for nausea as needed as discussed. Surgery Discharge Instructions: * No strenuous activity for another 1-2 weeks * Walking is good at least 3-4 times daily * Call the office to schedule a follow-up appointment with Dr. Salguero in 2 weeks. ([phone]) Call sooner with surgical questions/concerns. 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 Only take if needed. Take one dose and only repeat second dose 72 hours later if you are still experiencing symptoms) Patient Instructions: Antibiotic Form Stand Alone Forms: General Discharge Information Follow-up/Referrals: Breanne Salguero MD [Physician] - 2 Weeks Discharge Medications: New fluconazole 150 mg tablet 150 mg PO ONCE Qty: 1 1RF Rx Instructions: Take one tablet as a single dose. You may repeat this dose in 72 HOURS if still having vaginal symptoms. amoxicillin-pot clavulanate 875-125 mg tablet 1 tablet PO Q12H 10 Days Qty: 20 0RF ondansetron 4 mg tablet,disintegrating 4 mg PO DAILY PRN (Reason: nausea and vomiting) 20 Days Qty: 20 0RF Date of admission: 05/31/24 16:13 Primary Care Provider: PHYSICIAN NOT ON STAFF,NONSTAFF Admitting Provider: Patel George Attending physician on admission: Antonia Guallpa Condition: Stable Quality VTE Prophylaxis VTE prophylaxis: mechanical ordered Hospitalist MIPS Heart Failure (Exclusion) Patient has history of Heart Transplant or Left Ventricular Assistive Device?: No IF YES, STOP HERE Heart Failure (Qualifier) Patient has current or prior documentation of LVEF less than or equal to 40%, or mod/servere depressed LVSF?: No IF NO, STOP HERE
== END 2024-06-02 14:05 | disposition home or self-care (01) | DRG 392 ==
LOC: ANHED 16:20 → ANH2MED 17:33
PROVIDERS: Nurse Practitioner Family; Physician Assistant; Admitting Provider Internal Medicine; Emergency Provider Emergency Medicine; Visit Provider Nurse Practitioner
DX: K57.20 Diverticulitis of large intestine with perforation and abscess without bleeding (principal); K80.20 Calculus of gallbladder without cholecystitis without obstruction; C50.919 Malignant neoplasm of unspecified site of unspecified female breast; Z90.13 Acquired absence of bilateral breasts and nipples
CPT/HCPCS: 36415; 80048; 80053; 81001; 83605; 83690; 85025; 85027; 87040; 96365; 99285; A9270; G0378; J1171; J1885; J2405; J2543; J7030

== ENCOUNTER 2024-06-13 15:21 | Inpatient (IN) | payer OTHER, SELFPAY ==
--- NOTE | ~2024-06-13 | CT_ITS ---
CT abdomen pelvis w con Ordering provider: Breanne Salguero MD History: 53 years Female with . diverticulitis . Comparison: None. Technique: CT abdomen and pelvis with IV and without oral contrast. Automated exposure control and it erative reconstruction technique were employed. The dose-length product was 424.22 mGy-cm. 100 mL Omnipaque 350 was given IV. Findings: VISUALIZED LOWER CHEST: Minimal dependent atelectatic changes. UPPER ABDOMINAL ORGANS: Liver: Fat infiltration. 6 mm Tiny cyst adjacent to the interlobar fissure. Gallbladder: Cholelithiasis. Spleen: Normal. Collateral vessels seen between the splenic vein and the left renal vein. Stomach/duo denum: Normal. Pancreas: Normal. Adrenals: Normal. Kidneys: Renal pelvis fullness is seen bilaterally most likely due to extrarenal position. PELVIC ORGANS: The bladder is normal. Uterus: Normal. Simple right ovarian Cyst measuring 3.1 cm is seen. 2 Fibroid uterus is seen posteriorly. Ultrasound evaluation advised BOWEL AND MESENTERY: Colon: Diverticulitis is seen at the junction of the descending colon and sigmoid colon with surround ing fat stranding. Micro-abscess formation is seen measuring 7 mm... Normal appendix. Small Bowel: Normal. No obstruction. Peritoneum/mesentery: No free air or free fluid. No mesenteric lymphadenopathy. RETROPERITONEUM: Normal aorta. No retroperitoneal lymphadenopathy. MUSCULOSKELETAL: Superficial soft tissues: The superficial soft tissues are normal. Bones: Age appropriate degenerative changes of the spine. IMPRESSION: 1. Diverticulitis in the distal descending colon with microabscess formation. Follow-up advised. 2. Fat infiltration of the liver. 3. Cholelithiasis. 4. Bilateral planes between the splenic vein and the left renal vein. 5. Right simple ovarian cyst. Fibroids uterus. 6. Bilateral renal pelvis fullness most likely due to extrarenal position. Reviewed, dictated and finalized at location A. [employer]
[2024-06-13 15:20] VITALS: BP 117/76; PULSE 92; RESP 16; TEMP 36.6; O2SAT 98
--- NOTE | 2024-06-13 15:20 | PC.NURSE ---
This patient, Betina Coy, was admitted to [facility] Surg Room 331-01. Patient/family oriented to hospital policies and general routines including ID bracelet, bed and alarms, visiting hours, pain management, procedures, bathroom and other care routines, personal items, smoking policy, room service/diet, and visiting hours. Information on how to activate the Rapid Response Team has been discussed. Patient/Family are encouraged to report perceived risks to care and to ask questions if they do not understand what they are told or what they should do.
[2024-06-13 15:26] VITALS: BMI 25.9
[2024-06-13 16:01] LABS: Basophils Absolute Auto 0.1 K/mm3 (0.0-0.1); Basophils Percent Auto 0.4 % (0.2-1.2); Eosinophils Absolute Auto 0.2 K/mm3 (0-0.3); Eosinophils Percent Auto 1.2 % (0-4.4); Hematocrit 38.4 % (37.0-47.0); Hemoglobin 12.7 g/dL (12.0-15.0); Immature Granulocyte Absolute 0.04 K/mm3 (0.00-0.031); Immature Granulocyte Percent A 0.3 % (0-0.5); Lymphocytes Absolute Auto 2.36 K/mm3 (0.9-3.2); Lymphocytes Percent Auto 19.5 % (18.3-44.2); Mean Corpuscular HGB Conc 33.1 g/dl (32-36); Mean Corpuscular Hemoglobin 29.5 pg (26-34); Mean Corpuscular Volume 89.3 fl (80-100); Mean Platelet Volume 9.3 fl (7.4-10.4); Monocytes Absolute Auto 0.8 K/mm3 (0.1-0.6); Neutrophils Absolute Auto 8.6 K/mm3 (1.3-6.7); Neutrophils Percent Auto 71.6 % (45.5-73.1); Platelet Count Result 343 k/mm3 (150-375); Red Cell Distribution Width 12.6 % (11.5-14.5); White Blood Count 12.1 K/mm3 (4.5-10.0)
[2024-06-13] MEDS: LACTATED RINGERS 1,000 ML 100 ML IV CONT (16:09)
[2024-06-13 16:10] LABS: Alanine Aminotransferase 19 U/L (6-35); Albumin Level 4.3 g/dL (3.5-5.1); Alkaline Phosphatase 57 U/L (38-126); Anion Gap 6 mmol/L (4-12); Aspartate Amino Transferase 26 U/L (14-36); Bilirubin,Total 0.6 mg/dL (0.2-1.3); Blood Urea Nitrogen 9 mg/dL (7-17); Calcium 9.1 mg/dL (8.4-10.2); Carbon Dioxide 28 mmol/L (22-30); Chloride 105 mmol/L (98-107); Estimated CRCL calculation 80 ml/min; Estimated Glomerular Filt Rate > 60; Glucose 91 mg/dL (65-110); Potassium 4.1 mmol/L (3.4-5.0); Sodium 139 mmol/L (137-145)
[2024-06-13] MEDS: CIPROFLOXACIN 400 MG/D5W 200ML 200 ML 200 MG IVPB (17:17)
[2024-06-13] MEDS: HYDROcodone/acetaminophen (*CRX) 5-325 MG TABLET 1 TAB PO (18:33)
[2024-06-13] MEDS: metroNIDAZOLE 500 MG/ISO 100ML 500 MG/100 ML BAG 100 MG IVPB ×2 (18:33→23:29)
[2024-06-13] MEDS: HYDROmorphone HCL INJ (*CRX) 1 MG/ML SYR IV PUSH (20:28)
[2024-06-13] MEDS: ONDANSETRON INJ 4 MG/2 ML VIAL IV PUSH (20:32)
[2024-06-13 22:00] VITALS: BP 115/64; PULSE 79; RESP 14; TEMP 37.5; O2SAT 97
[2024-06-14] MEDS: CIPROFLOXACIN 400 MG/D5W 200ML 200 ML 200 MG IVPB ×2 (03:54→17:18)
[2024-06-14] MEDS: HYDROmorphone HCL INJ (*CRX) 1 MG/ML SYR 0.5 MG IV PUSH (05:38)
[2024-06-14] MEDS: ONDANSETRON INJ 4 MG/2 ML VIAL IV PUSH ×3 (05:39→23:53)
[2024-06-14] MEDS: metroNIDAZOLE 500 MG/ISO 100ML 500 MG/100 ML BAG 100 MG IVPB ×3 (05:39→20:27)
[2024-06-14] MEDS: LACTATED RINGERS 1,000 ML 100 ML IV CONT ×2 (05:44→17:24)
[2024-06-14 06:00] VITALS: BP 97/57; PULSE 76; RESP 12; TEMP 37.2; O2SAT 97
[2024-06-14 06:57] LABS: Hematocrit 36.9 % (37.0-47.0); Hemoglobin 11.9 g/dL (12.0-15.0); Mean Corpuscular HGB Conc 32.2 g/dl (32-36); Mean Corpuscular Hemoglobin 29.7 pg (26-34); Platelet Count Result 306 k/mm3 (150-375); Red Blood Count 4.01 M/mm3 (4.2-5.4); Red Cell Distribution Width 12.6 % (11.5-14.5); White Blood Count 7.1 K/mm3 (4.5-10.0)
[2024-06-14 07:05] LABS: Anion Gap 4 mmol/L (4-12); Blood Urea Nitrogen 7 mg/dL (7-17); Calcium 8.7 mg/dL (8.4-10.2); Carbon Dioxide 30 mmol/L (22-30); Chloride 105 mmol/L (98-107); Estimated CRCL calculation 69 ml/min; Estimated Glomerular Filt Rate > 60; Glucose 93 mg/dL (65-110); Sodium 139 mmol/L (137-145)
[2024-06-14] MEDS: PANTOPRAZOLE 40 MG TABLET PO (09:16)
[2024-06-14] MEDS: ENOXAPARIN 40 MG/0.4 ML SYRINGE SUB-Q (09:21)
--- NOTE | 2024-06-14 10:22 | PM.PNGS ---
Progress Note: A&P Assessment and Plan (1) Abscess of sigmoid colon due to diverticulitis: Code(s): K57.20 - Diverticulitis of large intestine with perforation and abscess without bleeding Status: Acute Assessment and Plan: seems improved on CT, WBC wnl, exam largely benign, cont IV abx, advance to low fiber diet (2) Nausea: Code(s): R11.0 - Nausea Status: Acute Assessment and Plan: seems to be unrelated to above, pt reports sx for months, will get GI consult for further evaluation Subjective Subjective Date/Time Seen: 06/14/24 10:22 Interval history: still c/o intermittent abd pain and intractable nausea, pt also c poor appetite Review of Systems Review of Systems: All systems reviewed & are unremarkable except as noted in HPI and below Exam Const: General: cooperative, no acute distress and uncomfortable Resp: Auscultation: clear to auscultation bilaterally Cardio: Rate: regular rate Rhythm: regular rhythm GI: Inspection: normal to inspection and non-distended GI Palp: Yes abdominal tenderness, Yes Soft to palpation, Yes Tenderness to palpation present (GI), No Guarding due to palpation present (GI) and No Rigid due to palpation Objective Data Vital Signs Vital Signs: Vital Signs - 24 hr 06/13/24 15:21 06/13/24 15:20 06/13/24 22:00 Temperature 36.6 C 37.5 C Pulse Rate 92 79 Respiratory Rate 16 14 Blood Pressure 117/76 115/64 Pulse Oximetry 98 97 Oxygen Delivery Room Air 06/14/24 06:00 06/14/24 09:20 Temperature 37.2 C Pulse Rate 76 Respiratory Rate 12 Blood Pressure 97/57 L Pulse Oximetry 97 Oxygen Delivery Room Air Intake/Output Intake/Output: Intake & Output 06/11/24 06/12/24 06/13/24 06/14/24 23:59 23:59 23:59 23:59 Intake Total 658 1930 Balance 658 1930 Meds/Results Medications: Active Medications Generic Name Dose Route Start Last Admin Trade Name Freq PRN Reason Stop Dose Admin Hydrocodone Bitart/Acetaminophen 1 tab 06/13/24 15:21 06/13/24 18:33 Hydrocodone/Acetaminophen (*Crx) 5-325 Mg Tablet PO 1 tab Q4H PRN Administration Pain Rated 4-6 Enoxaparin Sodium 40 mg 06/14/24 09:00 06/14/24 09:21 Enoxaparin 40 Mg/0.4 Ml Syringe SUB-Q 40 mg DAILY MARCK Administration Hydromorphone HCl 1 mg 06/13/24 15:21 06/13/24 20:28 Hydromorphone Hcl Inj (*Crx) 1 Mg/Ml Syr IV PUSH 1 mg Q2H PRN Administration Breakthrough Pain Rated 7-10 or NPO Hydromorphone HCl 0.5 mg 06/13/24 15:21 06/14/24 05:38 Hydromorphone Hcl Inj (*Crx) 1 Mg/Ml Syr IV PUSH 0.5 mg Q2H PRN Administration Breakthrough Pain Rated 4-6 or NPO Ciprofloxacin/Dextrose 200 mls @ 200 mls/hr 06/13/24 16:00 06/14/24 03:54 Cipro 400 Mg/D5w 200 Ml IVPB 200 mls/hr Q12H MARCK Administration Metronidazole 500 mg in 100 mls @ 100 mls/hr 06/13/24 18:00 06/14/24 05:39 Flagyl 500 Mg/Iso Soln 100 Ml IVPB 100 mls/hr Q6H MARCK Administration Lactated Ringer's 1,000 mls @ 100 mls/hr 06/13/24 15:25 06/14/24 05:44 Lr - Lactated Ringers Iv IV CONT 100 mls/hr .Q10H MARCK Administration Naloxone HCl 0.1 mg 06/13/24 15:21 Naloxone Hcl 0.4 Mg/Ml Vial IV PUSH Q2M PRN Opiate Reversal Ondansetron HCl 4 mg 06/13/24 15:21 06/14/24 05:39 Ondansetron Inj 4 Mg/2 Ml Vial IV PUSH 4 mg Q4H PRN Administration Nausea And Vomiting Pantoprazole Sodium 40 mg 06/14/24 09:00 06/14/24 09:16 Pantoprazole 40 Mg Tablet PO 40 mg QAM MARCK Administration Radiology Results: ITS Impressions Abdomen/Pelvis CT 06/13/24 18:20 IMPRESSION: 1. Diverticulitis in the distal descending colon with microabscess formation. Follow-up advised. 2. Fat infiltration of the liver. 3. Cholelithiasis. 4. Bilateral planes between the splenic vein and the left renal vein. 5. Right simple ovarian cyst. Fibroids uterus. 6. Bilateral renal pelvis fullness most likely due to extrarenal position. Labs Labs: Laboratory Results - last 24 hr 06/13/24 06/14/24 15:54 05:58 WBC 12.1 H 7.1 RBC 4.30 4.01 L Hgb 12.7 11.9 L Hct 38.4 36.9 L MCV 89.3 92.0 MCH 29.5 29.7 MCHC 33.1 32.2 RDW 12.6 12.6 Plt Count 343 306 MPV 9.3 10.0 Immature Gran % (Auto) 0.3 Neut % (Auto) 71.6 Lymph % (Auto) 19.5 [place] % (Auto) 7.0 Eos % (Auto) 1.2 Baso % (Auto) 0.4 Lymph # (Auto) 2.36 [place] # (Auto) 0.8 H Eos # (Auto) 0.2 Baso # (Auto) 0.1 Abs Immat Gran (auto) 0.04 H Absolute Neuts (auto) 8.6 H Absolute Nucleated RBC 0.000 Nucleated RBC % 0.0 Sodium 139 139 Potassium 4.1 4.0 Chloride 105 105 Carbon Dioxide 28 30 Anion Gap 6 4 BUN 9 7 Creatinine 0.60 L 0.70 Estim Creat Clear Calc 80 69 Estimated GFR > 60 > 60 Glucose 91 93 Calcium 9.1 8.7 Total Bilirubin 0.6 AST 26 ALT 19 Alkaline Phosphatase 57 Total Protein 7.0 Albumin 4.3 Imaging My impression: improved diverticulitis c abscess
--- NOTE | 2024-06-14 12:41 | WPDGICN ---
Assessment and Plan Assessment and plan (1) Nausea: Code(s): R11.0 - Nausea <Felicity Appiah PARKING METER ATTENDANT - Last Filed: 06/14/24 13:02> Status: Acute <Felicity Appiah PARKING METER ATTENDANT - Last Filed: 06/14/24 13:02> (2) Generalized postprandial abdominal pain: Code(s): R10.84 - Generalized abdominal pain <Felicity Romeroangela PARKING METER ATTENDANT - Last Filed: 06/14/24 13:02> Status: Acute <Felicity Romeromel, PARKING METER ATTENDANT - Last Filed: 06/14/24 13:02> (3) Abscess of sigmoid colon due to diverticulitis: Code(s): K57.20 - Diverticulitis of large intestine with perforation and abscess without bleeding <Felicity Romeromel, PARKING METER ATTENDANT - Last Filed: 06/14/24 13:02> Status: Acute <Felicity Romeroangela PARKING METER ATTENDANT - Last Filed: 06/14/24 13:02> (4) Breast cancer: Code(s): C50.919 - Malignant neoplasm of unspecified site of unspecified female breast <Felicity Romeromel, PARKING METER ATTENDANT - Last Filed: 06/14/24 13:02> Status: Acute <Felicity RomeroFABBY millerN - Last Filed: 06/14/24 13:02> (5) Cholelithiasis: Code(s): K80.20 - Calculus of gallbladder without cholecystitis without obstruction <Felicity ChangDiana TdFABBY millerN - Last Filed: 06/14/24 13:02> Status: Acute <Felicity Romeromel, PARKING METER ATTENDANT - Last Filed: 06/14/24 13:02> (6) Dysphagia: Code(s): R13.10 - Dysphagia, unspecified <Felicity Romeromel, PARKING METER ATTENDANT - Last Filed: 06/14/24 13:02> Status: Acute <Felicity Romeromel, PARKING METER ATTENDANT - Last Filed: 06/14/24 13:02> Assessment and Plan: 1. Nausea / Postprandial Abdominal Pain/Dysphagia/Weight Loss: Chronic daily nausea x 3 months with worsening nausea immediate postprandial with at times abdominal pain in lower abdomen described as burning and aching. She has weight loss of 25 lbs due to symptoms. She has never had EGD. She has tried stopping supplements, taking OTC omeprazole, and last 4 weeks has held her tamoxifen at direction of her oncologist to see if improvement. She has seen no improvement and only has worsened. She has dysphagia. Never has had EGD. CT this admission with decreasing abscess formation with diverticulitis, there is mention of collateral vessels seen between the splenic vein and left renal vein with normal stomach and duodenum, liver has fatty infiltration with no cirrhosis and gallstones. LFTs and CBC are normal. She has no postprandial RUQ or biliary type symptoms to suggest gallstones as cause of symptoms. Differential gastritis vs. PUD vs. h.pylori vs. mesenteric ischemia - Schedule for EGD tomorrow to evaluate for potential gastritis, ulcers, or other upper GI pathology. - Continue pantoprazole IV daily -Compazine PRN and Zofran PRN -Consider MRA 2. Diverticulitis with Abscess: Last colonoscopy in 09/2023 showed diverticulosis. Was recently hospitalized from 05/26/2024-06/02/2024 for sigmoid diverticulitis with a 2.5 cm intramural abscess. This admission noted continued diverticulitis at the junction of the descending colon and sigmoid colon with surrounding fat stranding and 7 mm micro-abscess with improvement. Dr. Salguero is following -Managed by Dr. Salguero This report may have been done utilizing a voice recognition system. Attempts have been made to correct errors. However, there may be uncorrected grammatical, spelling, and recognition errors present. <Felicity Appiah APRN - Last Filed: 06/14/24 13:02> GI Consult Note Consult date/time: 06/14/24 12:00 <Felicity Appiah APRN - Last Filed: 06/14/24 13:02> Reason for consult: Intractable Nausea <Felicity Appiah APRN - Last Filed: 06/14/24 13:02> Intractable Nausea - I have reviewed our nurse practitioner's note, examined the patient and pertinent laboratory data. We have discussed the plan extensively and agreed with was stated in the note. The patient started having nausea and early satiety 3 months before her current episode of acute diverticulitis, however she states that her digestion and nausea has gotten worse with this episode. She also states having dysphagia to solids and liquids. All this picture might reflect generalize upper GI dysmotility. However, an EGD will be performed tomorrow to rule out structural disease such as peptic ulcer, pyloric stenosis, severe gastritis or, less likely, gastric neoplasm. If the EGD shows no definite explanation for nausea, will attempt different medications such as buspirone and / or metoclopramide. <Gurwinder Morillo MD - Last Filed: 06/14/24 17:03> HPI: This is a pleasant 53 year old female with a past medical surgical history of complicated diverticulitis with abscess, breast cancer status post bilateral mastectomy in February of 2023 and placed on Tamoxifen. She was recently admitted to [facility] from 05/26/2024-06/02/2024 for sigmoid diverticulitis with a 2.5 cm intramural abscess with no evidence of perforation. She was seen by Dr. Salguero in office for follow up and due to abdominal pain and nausea she was directly admitted yesterday 06/13/2024. Dr. Salguero plan is noted to show decrease in abscess formation and to advance diet. She reports nausea that started 3 months ago and has continuously gotten worse. She describes it as a nauseating feeling similar to when you're . The nausea is present every day and gets significantly worse immediately if she eats anything. She states it is particularly worse with coffee or alcohol. At times, she has burning and aching pain in lower abdomen quickly after eating. She has had a handful of episodes of vomiting but the nausea is more prominent. She feels like food and liquids get hung up or stuck, even with just drinking water slowly. She has lost approximately 25 pounds since this spring due to the nausea and inability to eat due to her symptoms. Her oncologist took her off tamoxifen thinking that could be the culprit of her nausea which she has been off for 4 weeks with no improvement in the symptoms. She had tried [id number] omeprazole for around 1 week with minimal improvement. She tried stopping all of her supplements with no change. She has been trying lon and mint which helps somewhat but not entirely. She denies any postprandial RUQ pain. Denies melena or hematochezia. She is not taking iron. She will occasionally take an NSAID for a headache but is not something she takes often. She denies any typical or atypical GERD symptoms. She does not smoke and is social alcohol use but not recently due to symptoms. She is having BM daily, last BM yesterday, she reports they are ribbon like. The sharp pain associated with diverticulitis has improved but still present. She has been afebrile. She just finished Augmentin over the weekend for continue PO treatment from her diverticulitis admission. She is supposed to have h.pylori breath test by her functional chiropractor, Dr. Farley next week. She has never had an EGD. ENDOSCOPY HISTORY: COLONOSCOPY: 09/2023 (over at [facility]) Findings showed diverticulosis EGD: Never has had EGD LABS AND STOOL STUDIES: 07/10/2024: WBC 12, HGB 12.7, hematocrit 38.4, MCV 89, platelets 343 Na 139, K 4.1, BUN 9, creatinine 0.60, glucose 91, calcium 9.1, total bilirubin 0.6, AST 26, ALT 19, alkaline phosphatase 57, albumin 4.3 IMAGING: CT abdomen pelvis w contrast 05/2024: -Diverticulitis is seen at the junction of the descending colon and sigmoid colon with surrounding fat stranding. Micro-abscess formation is seen measuring 7 mm. -Fat infiltration of the liver. -Cholelithiasis. -Bilateral planes between the splenic vein and the left renal vein. -Right simple ovarian cyst. Fibroid uterus. -Bilateral renal pelvis fullness most likely due to extrarenal position. 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 -Cholelithiasis. <Felicity Appiah APRN - Last Filed: 06/14/24 13:02> Review of Systems Constitutional: Constitutional: Denies headache(s) and Denies weakness <Felicity Appiah APRN - Last Filed: 06/14/24 13:02> Eyes: Eyes: Denies blurry vision <Felicity Appiah APRN - Last Filed: 06/14/24 13:02> ENT: Reports Normal hearing present, Denies headache(s) and Denies neck pain <Felicity Appiah APRN - Last Filed: 06/14/24 13:02> Cardiovascular: Cardiovascular: Denies chest pain and Denies dyspnea <Felicity Appiah APRN - Last Filed: 06/14/24 13:02> Respiratory: Respiratory: Denies dyspnea <Felicity Appiah APRN - Last Filed: 06/14/24 13:02> Gastrointestinal: Gastrointestinal: Reports no additional gastrointestinal complaints <Felicity Appiah APRN - Last Filed: 06/14/24 13:02> Genitourinary: Genitourinary: Denies dysuria <Felicity Appiah APRN - Last Filed: 06/14/24 13:02> Musculoskeletal: Musculoskeletal: Denies neck pain <Felicity Appiah APRN - Last Filed: 06/14/24 13:02> Integumentary/Breasts: Skin/Breast: Denies dry skin <Felicity Appiah APRN - Last Filed: 06/14/24 13:02> Neurologic: Reports Normal hearing present, Denies headache(s) and Denies weakness <Felicity Appiah APRN - Last Filed: 06/14/24 13:02> Psychiatric: Psychiatric: Denies anxiety <Felicity Appiah APRN - Last Filed: 06/14/24 13:02> Endocrine: Endocrine: Denies change in body appearance <Felicity Appiah APRN - Last Filed: 06/14/24 13:02> Hematologic/Lymphatic: Hematologic/Lymphatic: Denies easy bleeding <Felicity Appiah APRN - Last Filed: 06/14/24 13:02> Allergic/Immunologic: Allergic/Immunologic: Denies urticaria <Felicity Appiah APRN - Last Filed: 06/14/24 13:02> [facility] Past Medical History Medical History: Medical History (Reviewed 06/13/24 @ 14:42 by Marilee Vernon [facility]) Breast cancer <Felicity Appiah APRN - Last Filed: 06/14/24 13:02> Surgical History Surgical History: Surgical History History of bilateral mastectomy <Felicity Appiah APRN - Last Filed: 06/14/24 13:02> Family History Family History: Family History Other No significant family history <Felicity Appiah APRN - Last Filed: 06/14/24 13:02> Social History Social History: Social History Smoking status: Never smoker Alcohol intake: never Substance use: current Substance use type: other Other substance usage details: gummies Last use: 05/28/24 Do You Feel Safe in your Home?: Yes Lack of Transportation: No Lack of Food: Never True Current Housing: I Have Housing Concerned About Future Housing: Decline to Answer Difficulty Paying Gas/Electric Bills: Decline to Answer Difficulty Paying for Meds: Decline to Answer Currently Unemployed: Decline to Answer Education: Bachelor's Degree Difficulty w/ Childcare or Family Care: Decline to Answer Spiritual care concerns: No <Felicity Appiah APRN - Last Filed: 06/14/24 13:02> Meds Home Medications and Allergies Home medications: Home Medications Medication Instructions Recorded Confirmed Type ondansetron 4 mg disintegrating 4 mg PO DAILY PRN nausea and 06/02/24 06/13/24 Rx tablet vomiting 20 days #20 tabs <Felicity Appiha APRN - Last Filed: 06/14/24 13:02> Allergies/Adverse reactions: Allergies Allergy/AdvReac Type Severity Reaction Status Date / Time adhesive tape AdvReac Rash Verified 06/13/24 15:49 <Felicity Appiah APRN - Last Filed: 06/14/24 13:02> Vital Signs Vital Signs - 24 hr 06/13/24 15:21 06/13/24 15:20 06/13/24 22:00 Temperature 97.8 F 99.5 F Pulse Rate 92 79 Respiratory Rate 16 14 Blood Pressure 117/76 115/64 Pulse Oximetry 98 97 Oxygen Delivery Room Air 06/14/24 06:00 06/14/24 09:20 Temperature 98.9 F Pulse Rate 76 Respiratory Rate 12 Blood Pressure 97/57 L Pulse Oximetry 97 Oxygen Delivery Room Air <Felicity CharleneDiana Appiah APRN - Last Filed: 06/14/24 13:02> Exam Const: General: comfortable and no acute distress <Felicitykathleen Appiah APRN - Last Filed: 06/14/24 13:02> HENMT: Face/Nose/Sinus: Normal nares present <Felicity Appiah APRN - Last Filed: 06/14/24 13:02> Eyes: General: appearance normal, both eyes and all related structures <Felicity Appiah APRN - Last Filed: 06/14/24 13:02> Neck: Neck: no JVD <Felicity Appiah APRN - Last Filed: 06/14/24 13:02> Resp: Auscultation: clear to auscultation bilaterally <Felicity Appiah APRN - Last Filed: 06/14/24 13:02> Cardio: Rate: regular rate <Felicity Appiah APRN - Last Filed: 06/14/24 13:02> Rhythm: regular rhythm <Felicity Appiah APRN - Last Filed: 06/14/24 13:02> GI: Inspection: non-distended <Felicitykathleen Appiah APRN - Last Filed: 06/14/24 13:02> GI Palp: Yes Soft to palpation, Yes Tenderness to palpation present (GI) (epigastric and LLQ tenderness) and Yes Guarding due to palpation present (GI) (LLQ) <Felicity Appiah APRN - Last Filed: 06/14/24 13:02> Auscultation: normal bowel sounds <Felicity Appiah APRN - Last Filed: 06/14/24 13:02> Other: No ascites <Felicity Appiah APRN - Last Filed: 06/14/24 13:02> Skin: General skin exam: normal color <Felicity Appiah APRN - Last Filed: 06/14/24 13:02> Neuro: General: gait normal <Felicity Appiah APRN - Last Filed: 06/14/24 13:02> Speech: normal speech <Felicity Appiah APRN - Last Filed: 06/14/24 13:02> Extrem: General: normal to inspection and no edema <Felicity Appiah APRN - Last Filed: 06/14/24 13:02> Psych: Mental Status: mental status grossly normal <Felicity Appiah APRN - Last Filed: 06/14/24 13:02> Affect: normal affect <Feliciyt Appiah APRN - Last Filed: 06/14/24 13:02> Results Labs CBC & Chem 7: 06/14/24 05:58 06/14/24 05:58 <Felicity Appiah APRN - Last Filed: 06/14/24 13:02> Labs: Short CBC 06/13/24 06/14/24 Range/Units 15:54 05:58 WBC 12.1 H 7.1 (4.5-10.0) K/mm3 Hgb 12.7 11.9 L (12.0-15.0) g/dL Hct 38.4 36.9 L (37.0-47.0) % Plt Count 343 306 (150-375) k/mm3 BMP 06/13/24 06/14/24 15:54 05:58 Sodium 139 139 Potassium 4.1 4.0 Chloride 105 105 Carbon Dioxide 28 30 BUN 9 7 Creatinine 0.60 L 0.70 Glucose 91 93 Calcium 9.1 8.7 Liver Function 06/13/24 Range/Units 15:54 Total Bilirubin 0.6 (0.2-1.3) mg/dL AST 26 (14-36) U/L ALT 19 (6-35) U/L Alkaline Phosphatase 57 (38-126) U/L Albumin 4.3 (3.5-5.1) g/dL <Felicity Appiah APRN - Last Filed: 06/14/24 13:02>
[2024-06-14 13:12] VITALS: BMI 26.0
[2024-06-14] MEDS: ACETAMINOPHEN 500 MG TABLET 1000 MG PO (13:12)
[2024-06-14 15:37] VITALS: BP 109/52; PULSE 63; RESP 20; TEMP 37.1; O2SAT 97
[2024-06-14] MEDS: HYDROcodone/acetaminophen (*CRX) 5-325 MG TABLET 1 TAB PO ×2 (18:51→23:53)
--- NOTE | 2024-06-14 19:03 | P.PNAN_ITS ---
Anes - Eval Pre Procedure Procedure: Operation Date: 06/15/24 11:00 Proposed Procedures p Esophagogastroduodenoscopy - Gurwinder Morillo MD Date/Time: 06/14/24 19:03 Surgeon: Ilia Pre Op Diagnosis: Complicated Diverticulitis with Abscess Patient Data Age: 53 Gender: F Height: 1.63 m Weight: 68.8 kg Last Vital Signs Temp 37.1 C 06/14/24 15:37 Pulse 63 06/14/24 15:37 Resp 20 06/14/24 15:37 BP 109/52 L 06/14/24 15:37 Pulse Ox 97 06/14/24 15:37 O2 Del Method Room Air 06/14/24 09:20 Allergies Allergy/AdvReac Type Severity Reaction Status Date / Time adhesive tape AdvReac Rash Verified 06/13/24 15:49 Home Medications Medication Instructions Recorded Confirmed Type ondansetron 4 mg disintegrating 4 mg PO DAILY PRN nausea and 06/02/24 06/13/24 Rx tablet vomiting 20 days #20 tabs Laboratory Tests 06/14/24 05:58 WBC 7.1 K/mm3 (4.5-10.0) RBC 4.01 L M/mm3 (4.2-5.4) Hgb 11.9 L g/dL (12.0-15.0) Hct 36.9 L % (37.0-47.0) MCV 92.0 fl (80-100) MCH 29.7 pg (26-34) MCHC 32.2 g/dl (32-36) RDW 12.6 % (11.5-14.5) Plt Count 306 k/mm3 (150-375) MPV 10.0 fl (7.4-10.4) Sodium 139 mmol/L (137-145) Potassium 4.0 mmol/L (3.4-5.0) Chloride 105 mmol/L (98-107) Carbon Dioxide 30 mmol/L (22-30) Anion Gap 4 mmol/L (4-12) BUN 7 mg/dL (7-17) Creatinine 0.70 mg/dL (0.7-1.0) Estim Creat Clear Calc 69 ml/min Estimated GFR > 60 (59 - ) Glucose 93 mg/dL (65-110) Calcium 8.7 mg/dL (8.4-10.2) : patient denies (post menopausal) Patient hx anesthesia problems: none Family hx anesthesia problems: none Results Review: All pre-operative results and documents have been reviewed as part of the pre- operative evaluation. [facility] Past Medical History Medical History Breast cancer Surgical History Surgical History History of bilateral mastectomy Family History Family History Other No significant family history Social History Social History Smoking status: Never smoker Alcohol intake: never Substance use: current Substance use type: other Other substance usage details: gummies Last use: 05/28/24 Do You Feel Safe in your Home?: Yes Lack of Transportation: No Lack of Food: Never True Current Housing: I Have Housing Concerned About Future Housing: Decline to Answer Difficulty Paying Gas/Electric Bills: Decline to Answer Difficulty Paying for Meds: Decline to Answer Currently Unemployed: Decline to Answer Education: Bachelor's Degree Difficulty w/ Childcare or Family Care: Decline to Answer Spiritual care concerns: No Comments Bunion surgery Exam Day of Procedure 06/14/24 19:03
[2024-06-14 21:30] VITALS: BP 103/64; PULSE 79; RESP 14; TEMP 36.3; O2SAT 96
[2024-06-15] MEDS: metroNIDAZOLE 500 MG/ISO 100ML 500 MG/100 ML BAG 100 MG IVPB ×4 (01:25→17:00)
[2024-06-15] MEDS: LACTATED RINGERS 1,000 ML 100 ML IV CONT ×2 (05:11→20:36)
[2024-06-15] MEDS: CIPROFLOXACIN 400 MG/D5W 200ML 200 ML 200 MG IVPB ×2 (05:12→15:52)
[2024-06-15] MEDS: ONDANSETRON INJ 4 MG/2 ML VIAL IV PUSH ×3 (06:14→16:57)
[2024-06-15] MEDS: HYDROmorphone HCL INJ (*CRX) 1 MG/ML SYR 0.5 MG IV PUSH (06:15)
[2024-06-15] MEDS: PANTOPRAZOLE 40 MG TABLET PO (08:37)
--- NOTE | 2024-06-15 08:56 | PM.PNGS ---
Progress Note: A&P Assessment and Plan (1) Abscess of sigmoid colon due to diverticulitis: Code(s): K57.20 - Diverticulitis of large intestine with perforation and abscess without bleeding Status: Acute Assessment and Plan: exam largely benign, cont IV abx, low fiber diet (2) Nausea: Code(s): R11.0 - Nausea Status: Acute Assessment and Plan: appreciate GI input, plan for EGD today Subjective Subjective Date/Time Seen: 06/15/24 08:56 Interval history: still c severe nausea, reports lower abd pain improved Review of Systems Review of Systems: All systems reviewed & are unremarkable except as noted in HPI and below Exam Const: General: cooperative, comfortable and no acute distress Resp: Auscultation: clear to auscultation bilaterally Cardio: Rate: regular rate Rhythm: regular rhythm GI: Inspection: normal to inspection and distended GI Palp: Yes abdominal tenderness, Yes Soft to palpation, Yes Tenderness to palpation present (GI), No Guarding due to palpation present (GI) and No Rigid due to palpation Objective Data Vital Signs Vital Signs: Vital Signs - 24 hr 06/14/24 09:20 06/14/24 15:37 06/14/24 21:30 Temperature 37.1 C 36.3 C L Pulse Rate 63 79 Respiratory Rate 20 14 Blood Pressure 109/52 L 103/64 Pulse Oximetry 97 96 Oxygen Delivery Room Air 06/14/24 20:22 Temperature Pulse Rate Respiratory Rate Blood Pressure Pulse Oximetry Oxygen Delivery Room Air Intake/Output Intake/Output: Intake & Output 06/12/24 06/13/24 06/14/24 06/15/24 23:59 23:59 23:59 23:59 Intake Total 658 4920 1300 Balance 658 4920 1300 Meds/Results Medications: Active Medications Generic Name Dose Route Start Last Admin Trade Name Freq PRN Reason Stop Dose Admin Acetaminophen 1,000 mg 06/14/24 12:40 06/14/24 13:12 Acetaminophen 500 Mg Tablet PO 1,000 mg Q6H PRN Administration Mild Pain (1-3) or Fever Hydrocodone Bitart/Acetaminophen 1 tab 06/13/24 15:21 06/14/24 23:53 Hydrocodone/Acetaminophen (*Crx) 5-325 Mg Tablet PO 1 tab Q4H PRN Administration Pain Rated 4-6 Enoxaparin Sodium 40 mg 06/14/24 09:00 06/14/24 09:21 Enoxaparin 40 Mg/0.4 Ml Syringe SUB-Q 40 mg DAILY MARCK Administration Hydromorphone HCl 1 mg 06/13/24 15:21 06/13/24 20:28 Hydromorphone Hcl Inj (*Crx) 1 Mg/Ml Syr IV PUSH 1 mg Q2H PRN Administration Breakthrough Pain Rated 7-10 or NPO Hydromorphone HCl 0.5 mg 06/13/24 15:21 06/15/24 06:15 Hydromorphone Hcl Inj (*Crx) 1 Mg/Ml Syr IV PUSH 0.5 mg Q2H PRN Administration Breakthrough Pain Rated 4-6 or NPO Ciprofloxacin/Dextrose 200 mls @ 200 mls/hr 06/13/24 16:00 06/15/24 06:12 Cipro 400 Mg/D5w 200 Ml IVPB Infused Q12H MARCK Infusion Metronidazole 500 mg in 100 mls @ 100 mls/hr 06/13/24 18:00 06/15/24 06:21 Flagyl 500 Mg/Iso Soln 100 Ml IVPB 100 mls/hr Q6H MARCK Administration Lactated Ringer's 1,000 mls @ 100 mls/hr 06/13/24 15:25 06/15/24 05:11 Lr - Lactated Ringers Iv IV CONT 100 mls/hr .Q10H MARCK Administration Lactated Ringer's 1,000 mls @ 150 mls/hr 06/14/24 15:40 Lr - Lactated Ringers Iv IV CONT .Q6H40M [facility] Miscellaneous Information 1 each 06/14/24 00:01 Patient Already Has Zofran For Nausea And Vommiting. This Is Duplicate Therapy With Prochl XX 07/14/24 00:00 CLARIFY MARCK Naloxone HCl 0.1 mg 06/13/24 15:21 Naloxone Hcl 0.4 Mg/Ml Vial IV PUSH Q2M PRN Opiate Reversal Ondansetron HCl 4 mg 06/13/24 15:21 06/15/24 06:14 Ondansetron Inj 4 Mg/2 Ml Vial IV PUSH 4 mg Q4H PRN Administration Nausea And Vomiting Pantoprazole Sodium 40 mg 06/14/24 09:00 06/15/24 08:37 Pantoprazole 40 Mg Tablet PO 40 mg QAM MARCK Administration Prochlorperazine Edisylate 10 mg 06/14/24 12:36 Prochlorperazine Edisylate 10 Mg/2 Ml Vial IV PUSH Q6H PRN Nausea And Vomiting Radiology Results: ITS Impressions Abdomen/Pelvis CT 06/13/24 18:20 IMPRESSION: 1. Diverticulitis in the distal descending colon with microabscess formation. Follow-up advised. 2. Fat infiltration of the liver. 3. Cholelithiasis. 4. Bilateral planes between the splenic vein and the left renal vein. 5. Right simple ovarian cyst. Fibroids uterus. 6. Bilateral renal pelvis fullness most likely due to extrarenal position.
--- NOTE | 2024-06-15 09:34 | PC.NURSE ---
holding lovenox this am due to pt getting EGD this am
[2024-06-15 13:44] VITALS: BP 111/72; PULSE 66; RESP 19; TEMP 36.2; O2SAT 98
[2024-06-15] MEDS: LACTATED RINGERS 1,000 ML 150 ML IV CONT (13:46)
[2024-06-15 14:00] VITALS: BP 101/54; PULSE 60; RESP 20; TEMP 36.3; O2SAT 98
--- NOTE | 2024-06-15 14:09 | WPDGIPROGNO ---
Progress Note: A&P Assessment and Plan (1) Nausea: Code(s): R11.0 - Nausea Status: Acute Assessment and Plan: Besides nausea, the patient complains of early satiety and occasional reflux. I ordered a gastric emptying study to rule out concomitant gastroparesis. If gastroparesis is present, I will recommend metoclopramide, titrating the dose to achieve the best therapeutic effect. Additionally, I believe narcotic use is unnecessary at this stage of her treatment, and we could de-escalate analgesics to perhaps dicyclomine, as narcotics can also induce nausea. Another contributing factor to her nausea is the intravenous metronidazole she is receiving. As discussed with the patient and her , multiple factors are contributing to her symptoms. The best recommendation at this time is to avoid all factors that can contribute to nausea. Subjective Date/time seen: 06/15/24 14:09 Interval history: The patient continues to have nausea. See EGD report, within normal limits. Biopsies of the antrum and body taken. Exam Const: General: cooperative and healthy appearing Resp: Effort & Inspection: normal respiratory effort and able to speak in complete sentences Auscultation: clear to auscultation bilaterally Cardio: Rate: regular rate Rhythm: regular rhythm GI: Inspection: normal to inspection GI Palp: No No hepatosplenomegaly present Auscultation: normal bowel sounds Rectal Exam: deferred Skin: General skin exam: normal color Psych: Appearance: grossly normal Mental Status: mental status grossly normal Objective Data Vital Signs Vital Signs: Vital Signs - 24 hr 06/14/24 15:37 06/14/24 21:30 06/14/24 20:22 Temperature 98.8 F 97.3 F L Pulse Rate 63 79 Respiratory Rate 20 14 Blood Pressure 109/52 L 103/64 Pulse Oximetry 97 96 Oxygen Delivery Room Air 06/15/24 13:44 Temperature 97.2 F L Pulse Rate 66 Respiratory Rate 19 Blood Pressure 111/72 Pulse Oximetry 98 Oxygen Delivery Room Air Intake/Output Intake/Output: Intake & Output 06/12/24 06/13/24 06/14/24 06/15/24 23:59 23:59 23:59 23:59 Intake Total 658 4920 1400 Balance 658 4920 1400 Meds/Results Medications: Active Medications Generic Name Dose Route Start Last Admin Trade Name Freq PRN Reason Stop Dose Admin Acetaminophen 1,000 mg 06/14/24 12:40 06/14/24 13:12 Acetaminophen 500 Mg Tablet PO 1,000 mg Q6H PRN Administration Mild Pain (1-3) or Fever Hydrocodone Bitart/Acetaminophen 1 tab 06/13/24 15:21 06/14/24 23:53 Hydrocodone/Acetaminophen (*Crx) 5-325 Mg Tablet PO 1 tab Q4H PRN Administration Pain Rated 4-6 Enoxaparin Sodium 40 mg 06/14/24 09:00 06/14/24 09:21 Enoxaparin 40 Mg/0.4 Ml Syringe SUB-Q 40 mg DAILY MARCK Administration Hydromorphone HCl 1 mg 06/13/24 15:21 06/13/24 20:28 Hydromorphone Hcl Inj (*Crx) 1 Mg/Ml Syr IV PUSH 1 mg Q2H PRN Administration Breakthrough Pain Rated 7-10 or NPO Hydromorphone HCl 0.5 mg 06/13/24 15:21 06/15/24 06:15 Hydromorphone Hcl Inj (*Crx) 1 Mg/Ml Syr IV PUSH 0.5 mg Q2H PRN Administration Breakthrough Pain Rated 4-6 or NPO Ciprofloxacin/Dextrose 200 mls @ 200 mls/hr 06/13/24 16:00 06/15/24 06:12 Cipro 400 Mg/D5w 200 Ml IVPB Infused Q12H MARCK Infusion Metronidazole 500 mg in 100 mls @ 100 mls/hr 06/13/24 18:00 06/15/24 13:21 Flagyl 500 Mg/Iso Soln 100 Ml IVPB 100 mls/hr Q6H MARCK Administration Lactated Ringer's 1,000 mls @ 100 mls/hr 06/13/24 15:25 06/15/24 05:11 Lr - Lactated Ringers Iv IV CONT 100 mls/hr .Q10H MARCK Administration Lactated Ringer's 1,000 mls @ 150 mls/hr 06/15/24 13:45 06/15/24 13:46 Lr - Lactated Ringers Iv IV CONT 150 mls/hr .Q6H40M MARCK Administration Miscellaneous Information 1 each 06/14/24 00:01 Patient Already Has Zofran For Nausea And Vommiting. This Is Duplicate Therapy With Prochl XX 07/14/24 00:00 CLARIFY MARCK Naloxone HCl 0.1 mg 06/13/24 15:21 Naloxone Hcl 0.4 Mg/Ml Vial IV PUSH Q2M PRN Opiate Reversal Ondansetron HCl 4 mg 06/13/24 15:21 06/15/24 11:45 Ondansetron Inj 4 Mg/2 Ml Vial IV PUSH 4 mg Q4H PRN Administration Nausea And Vomiting Pantoprazole Sodium 40 mg 06/14/24 09:00 06/15/24 08:37 Pantoprazole 40 Mg Tablet PO 40 mg QAM MARCK Administration Prochlorperazine Edisylate 10 mg 06/14/24 12:36 Prochlorperazine Edisylate 10 Mg/2 Ml Vial IV PUSH Q6H PRN Nausea And Vomiting Radiology Results: ITS Impressions Abdomen/Pelvis CT 06/13/24 18:20 IMPRESSION: 1. Diverticulitis in the distal descending colon with microabscess formation. Follow-up advised. 2. Fat infiltration of the liver. 3. Cholelithiasis. 4. Bilateral planes between the splenic vein and the left renal vein. 5. Right simple ovarian cyst. Fibroids uterus. 6. Bilateral renal pelvis fullness most likely due to extrarenal position.
--- NOTE | 2024-06-15 14:14 | WPDANESEPPF ---
Anes - Initial Pre Proc Eval Procedure: Operation Date: 06/15/24 11:00 Proposed Procedures p Esophagogastroduodenoscopy - Gurwinder Morillo MD Date/Time: 06/15/24 14:14 Surgeon: Breanne Salguero MD Pre Op Diagnosis: Complicated Diverticulitis with Abscess Patient Data Age: 53 Gender: F Height: 1.63 m Weight: 68.8 kg Last Vital Signs Temp 36.2 C L 06/15/24 13:44 Pulse 66 06/15/24 13:44 Resp 19 06/15/24 13:44 BP 111/72 06/15/24 13:44 Pulse Ox 98 06/15/24 13:44 O2 Del Method Room Air 06/15/24 13:44 Allergies Allergy/AdvReac Type Severity Reaction Status Date / Time adhesive tape AdvReac Rash Verified 06/15/24 13:42 Home Medications Medication Instructions Recorded Confirmed Type ondansetron 4 mg disintegrating 4 mg PO DAILY PRN nausea and 06/02/24 06/13/24 Rx tablet vomiting 20 days #20 tabs : patient denies (post menopausal) Patient hx anesthesia problems: none Family hx anesthesia problems: none Results Review: All pre-operative results and documents have been reviewed as part of the pre-operative evaluation. [facility] Past Medical History Medical History Breast cancer Surgical History Surgical History History of bilateral mastectomy Family History Family History Other No significant family history Social History Social History Smoking status: Never smoker Alcohol intake: never Substance use: current Substance use type: other Other substance usage details: gummies Last use: 05/28/24 Do You Feel Safe in your Home?: Yes Lack of Transportation: No Lack of Food: Never True Current Housing: I Have Housing Concerned About Future Housing: Decline to Answer Difficulty Paying Gas/Electric Bills: Decline to Answer Difficulty Paying for Meds: Decline to Answer Currently Unemployed: Decline to Answer Education: Bachelor's Degree Difficulty w/ Childcare or Family Care: Decline to Answer Spiritual care concerns: No Anes - Eval Final PreProcedure Day of Procedure 06/15/24 14:14 Patient weight: overweight Heart: regular rate and rhythm Lungs: clear to auscultation Airway: Mallampati scale class II Neurological: alert and oriented Last oral intake: >/= 8 hours ASA classification: III Emergent: no Anesthetic plan: proceed Anesthesia type and monitoring: general GIVS and standard monitoring Results Review: All pre-operative results and documents have been reviewed as part of the pre-operative evaluation. Informed Consent: The patient's anesthetic plan and its attendant risks and benefits were discussed with the patient/family/POA. Questions were solicited and answers provided to the satisfaction of the patient/family/POA.
[2024-06-15 14:30] VITALS: BP 93/61; PULSE 68; RESP 20; O2SAT 98
[2024-06-15 14:40] VITALS: BP 93/61; PULSE 74; RESP 18; O2SAT 98
[2024-06-15 14:50] VITALS: BP 95/62; PULSE 70; RESP 19; O2SAT 98
[2024-06-15] MEDS: ENOXAPARIN 40 MG/0.4 ML SYRINGE SUB-Q (15:53)
[2024-06-15] MEDS: PROCHLORPERAZINE EDISYLATE 10 MG/2 ML VIAL IV PUSH (18:06)
[2024-06-15 20:23] VITALS: BP 125/67; PULSE 80; RESP 16; TEMP 37.2; O2SAT 100
[2024-06-16] MEDS: metroNIDAZOLE 500 MG/ISO 100ML 500 MG/100 ML BAG 100 MG IVPB ×2 (00:01→07:19)
[2024-06-16] MEDS: CIPROFLOXACIN 400 MG/D5W 200ML 200 ML 200 MG IVPB (04:50)
[2024-06-16 05:14] VITALS: BP 101/74; PULSE 73; RESP 20; TEMP 36.4; O2SAT 96
[2024-06-16 08:00] VITALS: BP 111/69; PULSE 61; RESP 20; TEMP 36.1; O2SAT 97
[2024-06-16] MEDS: PANTOPRAZOLE 40 MG TABLET PO (08:40)
[2024-06-16] MEDS: ENOXAPARIN 40 MG/0.4 ML SYRINGE SUB-Q (08:41)
--- NOTE | 2024-06-16 09:49 | P.DS_ITS ---
DS: Admitting Diagnosis Discharge Date 06/16/2024 Admitting Diagnosis Complicated diverticulitis with abscess, intractable nausea and vomiting DS: Discharge Diagnosis Discharge Diagnosis (1) Abscess of sigmoid colon due to diverticulitis: Code(s): K57.20 - Diverticulitis of large intestine with perforation and abscess without bleeding Status: Acute Assessment and Plan: Improved with antibiotics and conservative management, continue low-fiber diet, follow-up 2 weeks (2) Nausea: Code(s): R11.0 - Nausea Status: Acute Assessment and Plan: Improved with Compazine, EGD performed and largely unremarkable, proceed with gastric emptying study as outpatient, follow-up with GI (3) Dysphagia: Code(s): R13.10 - Dysphagia, unspecified Status: Acute Assessment and Plan: See above DS: Summary Hospital Course Reason for hospitalization: Complicated diverticulitis with abscess Hospital Course: The patient is a 53-year-old female that presented to me in my office complaining of continued abdominal pain, anorexia, intractable nausea and v omiting. Given these findings, the patient was directly admitted to the Surgical Service. Initial laboratory and stat CT scan were obtained. CT showed improvement of previous complicated diverticulitis with abscess. Her labs were largely unremarkable. The patient was treated conservatively with low fiber diet and IV antibiotic. Her abdominal pain largely resolved, however she continued complain of intractable nausea and vomiting, dysphagia, anorexia. This was felt to be unrelated to her diverticulitis. GI consultation was obtained. An EGD was performed, please see full report for details of that procedure. The patient was started on Compazine and her symptoms improved. At this time, she will be discharged home with Compazine. Gastric emptying study as an outpatient. The patient will be discharged home on low-fat diet and follow up in 2 weeks. Status at Discharge Functional status at discharge: independent ambulation Time Spent with Patient Time attestation: Total time spent providing and/or coordinating discharge services: Time spent: Less than 30 minutes Exam Const: General: cooperative, comfortable and no acute distress Resp: Auscultation: clear to auscultation bilaterally Cardio: Rate: regular rate Rhythm: regular rhythm GI: Inspection: normal to inspection and non-distended GI Palp: No abdomina l tenderness and Yes Soft to palpation DS: Data Data Completed and Pending Pending studies at discharge: Pending at discharge 06/15/24 14:29 Surgical [PTH] Routine Discharge Plan Discharge Attending physician on discharge: Breanne Salguero Consulting providers: Gurwinder Morillo Discharging Clinician: Breanne Salguero Anticipated Discharge Date/Time: 06/16/24 09:47 Patient Disposition: Home, Self-Care Activity: as tolerated Diet: low fiber Patient Instructions: Antibiotic Form Stand Alone Forms: General Discharge Information Follow-up/Referrals: Breanne Salguero MD [Physician] - 2 Weeks Discharge Medications: New prochlorperazine maleate [Compazine] 10 mg tablet 10 mg PO Q8H PRN (Reason: nausea and vomiting) Qty: 20 0RF Discontinued ondansetron 4 mg tablet,disintegrating 4 mg PO DAILY PRN (Reason: nausea and vomiting) 20 Days Qty: 20 0RF Date of admission: 06/13/24 15:21 Primary Care Provider: AllisonKeisha Admitting Provider: Breanne Salguero Attending physician on admission: Breanne Salguero Condition: Stable
== END 2024-06-16 10:40 | disposition home or self-care (01) | DRG 392 ==
PROVIDERS: Internal Medicine Gastroenterology; Admitting Provider Surgery; PCP Physician Assistant; Visit Provider Surgery
PROC: 0DJ08ZZ Inspection of Upper Intestinal Tract, Via Natural or Artificial Opening Endoscopic (ICD-10-PCS; CPT 43235; principal; 2024-06-15 11:00)
DX: K57.20 Diverticulitis of large intestine with perforation and abscess without bleeding (principal); K80.20 Calculus of gallbladder without cholecystitis without obstruction; R13.10 Dysphagia, unspecified; C50.919 Malignant neoplasm of unspecified site of unspecified female breast; K76.0 Fatty (change of) liver, not elsewhere classified; N83.291 Other ovarian cyst, right side; Z85.3 Personal history of malignant neoplasm of breast
CPT/HCPCS: 36415; 74177; 80048; 80053; 85025; 85027; 88305; A9270; J0744; J0780; J1171; J1650; J1836; J2003; J2405; J2704; J7120; Q9967

== ENCOUNTER 2024-06-26 08:13 | Emergency (ER) | payer OTHER, SELFPAY ==
[2024-06-26 08:18] VITALS: BP 145/99; PULSE 73; RESP 16; TEMP 37.6; O2SAT 98
--- NOTE | 2024-06-26 08:21 | ED.URI ---
HPI - URI/Sore Throat General Chief Complaint: Upper Respiratory Infection Stated Complaint: Sore Throat History of Present Illness HPI Narrative: 53 y/o female presented for c/o sore throat and vaginal yeast infection. States she was on antibiotics until 06/15 for diverticulitis and now has yeast. Endorses itching and burning with some white discharge. States she has had yeast infections in the past and this feels the same. Tried otc monistat. Sore throat started 2 days ago, described as burning. Denies nasal congestion,n/v/d/f/c. Related Data Home Medications ?Medication ?Instructions ?Recorded ?Confirmed ?Last Taken ?Type tamoxifen 20 mg tablet mg 06/26/24 Unknown History Allergies Allergy/AdvReac Type Severity Reaction Status Date / Time adhesive tape AdvReac Rash Verified 06/15/24 13:42 Review of Systems Review of Systems: CONSTITUTIONAL: Denies body aches, fever, chills, or sweats. EYES: Denies visual changes, redness, or discharge. ENT: reports sore throat Denies rhinorrhea, congestion, or otalgia. CARDIOVASCULAR: Denies chest pain, palpitations, or edema. RESPIRATORY: Denies dyspnea. GASTROINTESTINAL: Denies abdominal pain, nausea, vomiting, or diarrhea. : reports itching, discharge MUSCULOSKELETAL: Denies back pain, joint pain, or myalgia. NEUROLOGIC: Denies headache PMFSH Past Medical History Medical History Breast cancer Surgical History Surgical History History of bilateral mastectomy Family History Family History Other No significant family history Social History Social History Smoking status: Never smoker Alcohol intake: never Substance use: current Substance use type: other Other substance usage details: gummies Last use: 05/28/24 Do You Feel Safe in your Home?: Yes Lack of Transportation: No Lack of Food: Never True Current Housing: I Have Housing Concerned About Future Housing: Decline to Answer Difficulty Paying Gas/Electric Bills: Decline to Answer Difficulty Paying for Meds: Decline to Answer Currently Unemployed: Decline to Answer Education: Bachelor's Degree Difficulty w/ Childcare or Family Care: Decline to Answer Spiritual care concerns: No Exam Narrative: GENERAL: well-appearing EYES: conjunctivae clear ENT: Mucous membranes moist. TM pearly valladares with normal light reflex bilaterally; no tragal tenderness. Oropharynx mildly erythematous without lesions. Tonsils not enlarged and without exudate. No drooling, no hoarseness, no trismus, uvula midline. No tripod positioning, hot potato voice, or soft palate swelling. NECK: Supple. No lymphadenopathy CHEST: Clear to auscultation, breath sounds equal. No respiratory distress, speaks in full sentences. HEART: Regular rate and rhythm. No murmur heard. SKIN: Warm, dry, no rash. NEURO: Alert and oriented x3. Course Course Emergency Course: Patient is aware of diagnosis, understands and agrees to treatment plan. Anticipatory guidance given. Patient agrees to follow-up as directed and is aware of reasons to seek care at the emergency department. Portions of this record may have been created with voice recognition software Level of Care: Express Care Visit MDM - URI/Sore Throat MDM Narrative Medical decision making narrative: Neg strep result reviewed with pt. Declined vaginal culture. Advise supportive treatments. Patient is appropriate for outpatient treatment and follow-up. Differential Diagnosis Differential diagnosis: Likely upper respiratory infection, sinusitis, viral infection, influenza and pharyngitis Discharge Plan Discharge Clinical Impression: Pharyngitis, Vaginitis Patient Disposition: Home, Self-Care Condition: Stable Instructions: Antibiotic Form, Pharyngitis (ED), Yeast Infection (ED) Additional Instructions: Rapid strep swab was negative today You will be notified in a few days if the culture comes back positive for strep, and appropriate antibiotics will be called in at that time. if symptoms are due to a viral illness, it is not treated with antibiotics. Viral symptoms can be present for up to 10-14 days. Tylenol every 8 hours as needed for pain/fever Soft foods, cool liquids, warm tea. Gargle with warm saltwater twice a day. Chloraseptic spray and throat lozenges. Rest and stay hydrated. --Follow up with your PCP --Go to the ER immediately if you cannot swallow your saliva, trouble breathing/wheezing, throat swelling, pain is persistent and severe Take fluconazole as directed. Follow up with Obgyn. Patient Language: New Zealander Prescriptions: New fluconazole 150 mg tablet 150 mg PO DAILY Qty: 2 0RF No Action tamoxifen 20 mg tablet Follow-up/Referrals: Allison,AMBER Valdes [Primary Care Provider] - Time of Disposition: 08:34
[2024-06-26 08:34] LABS: EDSTREPNEGPOS1 Negative (Negative)
--- OUTSIDE RECORDS SUMMARY | 2024-07-02 04:40 | XMS_ITS | Encounter Summary ---
Author Organization [facility] Address [address] [place] [address] Care Team Providers Care Locker Room Manager Name Role Phone Naya Leonard Irving DO Unavailable [phone] Bernardo Lizarraga MD Unavailable [phone] Keisha Pineda Primary Care Pr ovider Encounter Details Date Type Department Care Team (Latest Contact Info) Description 12/07/2023 Travel Social History Tobacco Use Types Packs/Day Years Used Date Smoking Tobacco: Never Smokeless Tobacco: Never Alcohol Use Standard Drinks/Week Comments No 0 (1 standard drink = 0.6 oz pur e alcohol) PHQ-2 Answer Date Recorded Patient Health Questionnaire-2 Score 0 11/15/2023 Sex and Gender Information Value Date Recorded Sex Assigned at Female 10/08/2021 2:50 AM CDT Gender Identity Female 10/08/2021 2:50 AM CDT Sexual Orientation Straight 10/08/2021 2: 50 AM CDT documented as of this encounter Functional Status Functional Status Response Date of Assess ment Is person deaf or have serious hearing difficult y? No 06/08/2023 Is person blind or have serious difficulty seein g? No 06/08/2023 Does person have serious dif ficulty walking/climbing stairs? No 06/08/2023 Does person have difficulty dressing/bathing? No 06/08/2023 Does person have difficulty doing errands alone? No 06/08/2023 Cognitive Status Response Date of Assessm ent Does person have difficulty concentrating/remembering/making decisions? No 06/08/2023 documented as of this encounter Plan of Treatment Upcoming Encounters Date Type Department Care Team (Late st Contact Info) Description 07/19/2024 9:45 AM CALL WORKER PERSON Office Visit [facility] - PSYCHIATRIC RN [address] [place] [address] Leatha Gupta MD [address] [place] [address] 12/11/2024 9:00 AM CDT Office Visit [facility] - Surgery [address] [address], [address] [place] [address] [place] [address] [place] [address] 12/11/2024 10:40 AM CDT Office Visit [facility] Cancer Care [address] [place] [address] [place] [address] [place] [address] documented as of this encounter Visit Diagnoses Not on filedocumented in this encounter Care Teams Locker Room Manager Relationship Specialty Start Date End Date Keisha Pineda PA [address] [place] [address] PCP - General Physician Commercial Insulator 11/15/23 [place] [address] [place] [address] Surgical Oncologist Surgical Oncology 02/15/23 [place] [address] [place] [address] Him Director/Oncologist Hematology and Oncology 02/16/23 documented as of this encounter
--- OUTSIDE RECORDS SUMMARY | 2024-07-02 04:40 | XMS_ITS | Encounter Summary ---
Author Organization [facility] Address [address] [place] [address] Care Team Providers Care Biophysics Professor Name Role Phone HoracioNaya Irving DO Unavailable Bernardo Lizarraga MD Unavailable [phone] Keisha Pineda Primary Care Pr ovider Reason for Visit * Reason Comments Follow-up Encounter Details Date Type Department Care Team (Late st Contact Info) Description 05/16/2024 2:40 PM WELDING TESTER Office Visit [facility] [address] [place] [id number] [place] [id number] [address] Invasive ductal carcinoma of right breast (HCC) (Primary Dx); Hot flashes; Premenopausal patient Social History Tobacco Use Types Packs/Day Years Used Date Smoking Tobacco: Never Smokeless Tobacco: Never Tobacco Cessation:Counseling Given: Not Answered Alcohol Use Standard Drinks/Week Comments No 0 (1 standard drink = 0.6 oz pur e alcohol) PHQ-2 Answer Date Recorded Patient Health Questionnaire-2 Score 0 05/16/2024 Sex and Gender Information Value Date Recorded Sex Assigned at Female 10/08/2021 2:50 AM CDT Gender Identity Female 10/08/2021 2:50 AM CDT Sexual Orientation Straight 10/08/2021 2: 50 AM CDT documented as of this encounter Last Filed Vital Signs Vital Sign Reading Time Taken Comments Blood Pressure 126/74 05/16/2024 2:48 PM WELDING TESTER Pulse 74 05/16/2024 2:48 PM WELDING TESTER Temperature 36.6 ??C (97.9 ??F) 05/16/2024 2:48 PM CS T Respiratory Rate 18 05/16/2024 2:48 PM WELDING TESTER Oxygen Saturation 100% 05/16/2024 2:48 PM WELDING TESTER Inhaled Oxygen Concentration - - Weight 74.7 kg (164 lb 9.6 oz) 05/16/2024 2:48 P M WELDING TESTER Height 163.8 cm (5' 4.5 ) 05/16/2024 2:48 PM WELDING TESTER Body Mass Index 27.82 05/16/2024 2:48 PM WELDING TESTER documented in this encounter Functional Status Functional Status Response [...] No 06/08/2023 documented as of this encounter Patient Instructions * Patient Instructions* Bernardo Lizarraga MD - 05/16/2024 2:51 PM WELDING TESTER Unclear if tamoxfen causing symptoms, certainly could be Hold tamoxifen until next visit Check labs to check if patient in menopause - Estradiol, FSH, LH Fat necrosis was removed, no evidence of cancer RTC 1 month as check in ING TESTER documented in this encounter Progress Notes * Bernardo Lizarraga MD - 05/16/2024 3:40 PM CST 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 Grade 1, Ki-67 3%. Bilateral mastectomy 02/18 (Horacio). Treatment history as below. - nausea - fall of 2023. Maybe tamoxifen related. - hot flashes - may be somewhat increased on tamoxifen but not significantly so. - ? Fat necrosis - left chest wall. - Family History of breast cancer - in her grandmother. Negative genetics 03/2023. - Benign Breast Cysts - multiple drains in the past. - premenopausal - at presentation. - adult health maintenance - colonoscopy due 2033. Plan: Since last being seen she had that chest wall mass removed and it was just fat tissue She has really been struggling with nausea, unclear if this is tamoxifen related My recommendation is treatment holiday with holding tamoxifen for the next month Check labs to check if patient in menopause - Estradiol, FSH, LH Will see her back in a month, if she feels significantly better off of tamoxifen and she is in menopause would discuss switching to anastrozole Eventually planning on endocrine therapy - plan for 5 years (03/2028) She already gets yearly pelvic exams Genetic testing was negative Will not need surveillance mammograms as she is status post bilateral mastectomy RTC 1 month as check in Bernardo Lizarraga MD - Hematology/Oncology Available on [employer] chat during the week Cell# (providers only): [phone] Oncology History: 02/2023 - Diagnosed right breast IDC - ER/OH+, Her2- (1+) - Grade 1, Ki-67 3% 02/2023 - Bilateral mastectomy (Horacio) - [id number] Stage IA - 1.5cm, 0/1 nodes positive. 02/2023 - Oncotype 21 - no adjuvant chemo 03/2023 - Negative genetics 03/2023 - Starting tamoxifen 20mg daily - planning for 5 years (03/2028) 11/2023 - Fat tissue removed from breast 05/2024 - tamoxifen holiday due to nausea Subjective: Betina Coy presents today for a follow up appointment. Has been struggling pretty significantly last two or three months. Persistent nausea that she thinks maybe related to tamoxifen. 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 She had her fat necrosis removed. She has not had a period in some time. Goal of Therapy: curative Pain Scale Pain Assessment Pain Score: Zero Physical Examination: Vitals: BP 126/74 Pulse 74 Temp 97.9 ??F (36.6 ??C) Resp 18 Ht 1.638 m (5' 4.5 ) Wt 74.7 kg (164 lb 9.6 oz) SpO2 100% Karnofsky: 90-Able to carry on normal activity: minor symptoms of disease General: No acute distress Eyes: Conjuctivae pink Neck: Supple Lymph: No Lymphadenopathy Cardiovascular: S1 and S2 heard Lungs: .Normal Work of breathing Abdomen: Soft Extremities: No edema Neuro:Alert and oriented to person, place, and time Breast: Bilateral mastectomy Psychosocial History PHQ-2 Patient Health Questionnaire-2 Score: 0 Pertinent Labs and imaging Recent Labs Component Name 02/05/23 0929 WBC 6.8 RBC 4.68 HGB 14.1 HCT 43.1 MCV 92.1 MCH 30.1 MCHC 32.7 PLTCOUNT 327 Recent Labs Component Name 02/05/23 0929 GLUCOSE 105 No images are attached to the encounter. Imaging & other studies: Pertinent Labs, imaging reviewed Note was created with the help of voice recognition software and not proof-read Bernardo Lizarraga MD - Hematology/Oncology Cell# (providers only) [phone] ING TESTER documented in this encounter Plan of Treatment Upcoming Encounters Date Type Department Care Team (Late st Contact Info) Description 07/19/2024 9:45 AM WELDING TESTER Office Visit [facility] - RENEWABLE ENERGY TRADER [address] [address] Leatha Gupta MD [address] [place] [phone] 12/11/2024 9:00 AM CDT Office Visit [facility] - Surgery [address], [address] [place] [address] [place] [address] [place] [address] 12/11/2024 10:40 AM CDT Office Visit [facility] [address] [place] [address] [place] [address] [facility] [address] [address] [place] [address] documented as of this encounter Procedures Procedure Name Priority Date/Time Associated Diagnosis Comments ESTRADIOL Routine 05/16/2024 3:05 PM WELDING TESTER Invasive ductal carcinoma of right breast (HCC) Hot flashes Premenopausal patient FSH + LH PANEL Routine 05/16/2024 3:05 PM WELDING TESTER Invasive ductal carcinoma of right breast (HCC) Hot flashes Premenopausal patient documented in this encounter Results * FSH + LH PANEL (05/16/2024 3:05 PM WELDING TESTER) LH 9.1 mIU/mL [facility] ACCOUNT BILL Comment: ?LH Reference Range Normal Menstruating Females ?Follicular Phase ? 1.80 - 11.78 mIU/mL ?Mid-Cycle Phase ?7.59 - 89.08 mIU/mL ?Luteal Phase ? 0.56 - 14.00 mIU/mL Postmenopausal Females without HRT ? 5.16-61.99 mIU/mL Males ?0.57 - 12.07 mIU/mL ? FSH Reference Range Normal Menstruating Females ? Follicular Phase ?3.03 - 8.08 mIU /mL ? Mid-Cycles Phase ? 2.55 - 16.69 mIU /mL ? Luteal Phase ?1.38 - 5.47 mIU /mL Post Menopausal Females ? 26.72 - 133.41 mIU /mL Males ?0.95 - 11.95 mIU/ mL FSH 17.04 mIU/mL [facility] ACCOUNT BILL Blood BLOOD SPECIMEN / Unknown 05/16/2024 3:05 PM WELDING TESTER 05/16/2024 Comment:Blood Release to [facility] i Narrative [facility] ACCOUNT BILL - 05/17/2024 12:07 AM WELDING TESTER Performed at: ??[address] - [address] ??[id number] Pre K Lead Teacher: Dillan Hernandez MD, Phone: ??[phone] Bernardo Lizarraga MD LAB - CHEMISTRY CHANEL FELIX [facility] ACCOUNT BILL [address] [place] [address] * ESTRADIOL (05/16/2024 3:05 PM WELDING TESTER) Estradiol 234.0 pg/mL [facility] ACCOUNT BILL Comment: ? Adult Female ? Range ?Follicular phase ? 12.5 - 166.0 ?Ovulation phase ?85.8 - 498.0 ?Luteal phase ? 43.8 - 211.0 ?Postmenopausal ? <6.0 - ??54.7 ?1st trimester ? 215.0 - >4300.0 Phong ECLIA methodology Blood BLOOD SPECIMEN / Unknown 05/16/2024 3:05 PM WELDING TESTER 05/16/2024 Comment:Blood Release to pat kathleen Narrative [facility] ACCOUNT BILL - 05/17/2024 1:10 PM WELDING TESTER Performed at: ??01 - [facility] [address] [place], [place] ??[id number] Pre K Lead Teacher: Declan Drake PhD, Phone: ??[phone] Bernardo Lizarraga MD LAB - CHEMISTRY CHANEL FELIX [facility] ACCOUNT BILL [address] [place] [address] documented in this encounter Visit Diagnoses Diagnosis Invasive ductal carcinoma of right breast (HCC)- Primary Hot flashes Symptomatic menopausal or female climacteric states Premenopausal patient Symptomatic menopausal or female climacteric states documented in this encounter Care Teams Biophysics Professor Relationship Specialty Start Date End Date Keisha Pineda PA [address] [place] [address] PCP - General Physician Manager Health 11/15/23 [place] [address] [place] [phone] Surgical Oncologist Surgical Oncology 02/15/23 [place] [address] [place] [phone] Building Construction Estimator/Oncologist Hematology and Oncology 02/16/23 documented as of this encounter
--- OUTSIDE RECORDS SUMMARY | 2024-07-02 04:40 | XMS_ITS | Patient Health Summary ---
Author Organization [facility] Fair[employer] Address [address] [place] [address] Care Team Providers Care Bobbin Winder Name Role Phone Naya Leonard DO Unavailable [phone] Bernardo Lizarraga MD Unavailable [phone] Keisha Pineda Primary Care Pr ovider Note from [facility],non-owned Affiliates and Associated Physician Practices is amultiple site organization consisting of ambulatory clinics and hospital sitesin [place], [place], [place] and [place]. This disclosure is being madepursuant to the Care Everywhere program and may not contain all information available regarding this patient. Last updated 18.[facility] Allergies No known active allergies Medications * Be aware that medications may not be up to date on this document. Alwaysverify current medications with the patient. * tamoxifen (Nolvadex) 20 MG tablet(Started 03/15/2024) TAKE 1 TABLET BY MOUTH DAILY FOR BREAST CANCER 2 refills by 03/15/2025 * prochlorperazine (Compazine) 10 MG tablet(Started 06/27/2024) Take 1 (one) tablet by mouth every 8 hours as needed Active Problems Problem Noted Date Diagnosed Date Invasive ductal carcinoma of right breast 2022 Cancer Staging:Pathologic stage from 04/19/2023:Stage IA(pT1c, pN0, cM0, G1, ER+, SC+, HER2-, Oncotype DX score: 21) - Signed by Bernardo Lizarraga MD on 04/19/2023 Postoperative seroma of subc utaneous tissue after non-dermatologic procedure 02/25/2023 COVID-19 07/09/2021 Hypercholesteremia 01/31/2019 PCOS (polycystic ovarian syndrome) Resolved Problems Problem Noted Date Diagnosed Date Resolved Date MVP (mitral valve prolapse) 02/05/2023 Immunizations * Covid Pfizer primary monovalent 12+ yr 0.3mL Purple cap(Given 05/04/2021, 10/31/2020, 10/10/2020) * FLU VACCINE TRI IIV3 SPLIT IM (FLUVIRIN)(Given 04/17/2014) * INFLUENZA VACCINE, ADJUVANTED, TRIV. (FLUAD TRIVALENT; 65Y+) (AIIV3)(Given 05/04/2021) * INFLUENZA VACCINE, CELL CULTURE, QUADR. (FLUCELVAX QUADRIVALENT; 6MO+) (CCIIV4)(Given 04/09/2020) * INFLUENZA VACCINE, QUADR. (FLUZONE; FLULAVAL; FLUARIX; AFLURIA QUADRIVALENT; 6MO+), 0.5 ML (IIV4)(Given 05/27/2023, 05/26/2022, 05/04/2021, 04/30/2019, 04/29/2018) * INFLUENZA VACCINE, TRIV. (FLUZONE; FLULAVAL; FLUARIX; AFLURIA TRIVALENT; 6MO+), 0.5 ML (IIV3)(Given 05/04/2017, 04/13/2016, 04/15/2015) * TDAP (7yrs+)(Given 01/31/2019) Social History Tobacco Use Types Packs/Day Years Used Date Smoking Tobacco: Never Smokeless Tobacco: Never Tobacco Cessation:Counseling Given: Not Answered Alcohol Use Standard Drinks/Week Comments No 0 (1 standard drink = 0.6 oz pur e alcohol) AUDIT-C Answer Date Recorded Q1: How often do you have a drink containing alc ohol? Never 06/04/2024 Average Number of Drinks Not on file 024 Frequency of Binge Drinking Not on file 05/13 PHQ-2 Answer Date Recorded Patient Health Questionnaire-2 Score 0 06/29/2024 Sex and Gender Information Value Date Recorded Sex Assigned at Female 10/08/2021 2:50 AM CDT Gender Identity Female 10/08/2021 2:50 AM CDT Sexual Orientation Straight 10/08/2021 2: 50 AM CDT Last Filed Vital Signs Vital Sign Reading Time Taken Comments Blood Pressure 112/72 06/29/2024 3:07 PM SYSTEMS TEST ENGINEER Pulse 72 06/29/2024 3:07 PM SYSTEMS TEST ENGINEER Temperature 36.7 ??C (98.1 ??F) 06/29/2024 3:07 PM CS T Respiratory Rate 18 06/29/2024 3:07 PM SYSTEMS TEST ENGINEER Oxygen Saturation 99% 06/29/2024 3:07 PM SYSTEMS TEST ENGINEER Inhaled Oxygen Concentration - - Weight 73.6 kg (162 lb 4.8 oz) 06/29/2024 3:07 P M SYSTEMS TEST ENGINEER Height 163.8 cm (5' 4.5 ) 06/29/2024 3:07 PM SYSTEMS TEST ENGINEER Body Mass Index 27.43 06/29/2024 3:07 PM SYSTEMS TEST ENGINEER Procedures * CT ABDOMEN PELVIS W CONTRAST(Performed 06/04/2024) Performed for Lower abdominal pain * HCG BLOOD QUALITATIVE(Performed 06/04/2024) * LACTIC ACID BLOOD REFLEX TO REPEAT(Performed 06/04/2024) * CBC W AUTO DIFFERENTIAL(Performed 06/04/2024) * COMPREHENSIVE METABOLIC PANEL(Performed 06/04/2024) * FSH + LH PANEL(Performed 05/16/2024) Performed for Invasive ductal carcinoma of right breast (HCC), Hot flashes, Premenopausal patient * ESTRADIOL(Performed 05/16/2024) Performed for Invasive ductal carcinoma of right breast (HCC), Hot flashes, Premenopausal patient * PATHOLOGY TISSUE EXAM (STL)(Performed 11/30/2023) Performed for Mass in chest * SC EXC SKIN BENIG 3.1-4CM TRUNK,ARM,LEG(Performed 11/30/2023) Performed for Mass in chest * HCG URINE QUAL POCT NOTIFICATION(Performed 11/30/2023) Performed for Preop examination * HCG URINE QUALITATIVE - POCT (IP) INTERFACED(Performed 11/30/2023) * SC COLOREC CANC SCRN,SCR COLONOSCOPY+BE(Performed 09/27/2023) * ENDOSCOPY, COLON, SCREENING(Performed 09/27/2023) Performed for Special screening for malignant neoplasms, colon * US PELVIS W TRANSVAG NON OB(Performed 09/14/2023) Performed for PMB (postmenopausal bleeding) * CARDIAC RHYTHM STRIP ORDER(Performed 06/09/2023) * PATHOLOGY TISSUE EXAM (STL)(Performed 06/08/2023) Performed for Malignant neoplasm of right female breast, unspecified estrogen receptor status, unspecified site of breast (HCC) * ENDOTRACHEAL TUBE NOTE(Performed 06/08/2023) * SC GRFG AUTOL FAT LIPO 50 CC/<(Performed 06/08/2023) Performed for Malignant neoplasm of right female breast, unspecified estrogen receptor status, unspecified site of breast (HCC) * SC INSERTION BREAST IMPLANT SAME DAY OF MASTECTOMY(Performed 06/08/2023) Performed for Malignant neoplasm of right female breast, unspecified estrogen receptor status, unspecified site of breast (HCC) * PAP IG LB+HPV APTIMA(Performed 05/27/2023) Performed for Well woman exam * SC EXC NECK FRITZ DEEP = 5 CM(Performed 02/25/2023) * HCG URINE QUALITATIVE(Performed 02/25/2023) Performed for Preoperative examination * STREP A SCREEN DIRECT W RFLX STREP A CULTURE(Performed 02/19/2023) * PATHOLOGY TISSUE EXAM (STL)(Performed 02/18/2023) Performed for Diagnosis unknown * ENDOTRACHEAL TUBE NOTE(Performed 02/18/2023) * SC MAST SMPL COMPL(Performed 02/18/2023) * NM LYMPHOSCINTIGRAPHY(Performed 02/18/2023) Performed for Mass of right breast, unspecified quadrant * HCG URINE QUALITATIVE(Performed 02/18/2023) Performed for Preoperative examination * XR HAND BILAT 2VW(Performed 02/05/2023) Performed for Stiffness of hand joint, unspecified laterality * LIPID PROFILE(Performed 02/05/2023) Performed for Screening cholesterol level * HEMOGLOBIN A1C W EAG(Performed 02/05/2023) Performed for Diabetes mellitus screening * CBC W AUTO DIFFERENTIAL(Performed 02/05/2023) Performed for Leukocytosis, unspecified type * HEPATITIS B CORE ANTIBODY IGM(Performed 02/05/2023) Performed for Need for hepatitis B screening test * HEPATITIS B SURFACE ANTIGEN W RFLX CONFIRMATION(Performed 02/05/2023) Performed for Need for hepatitis B screening test * HEPATITIS B SURFACE ANTIBODY(Performed 02/05/2023) Performed for Need for hepatitis B screening test * HIV-1 HIV-2 ANTIBODY + HIV P24 AG PANEL(Performed 02/05/2023) Performed for Screening for HIV without presence of risk factors * HEPATITIS C ANTIBODY(Performed 02/05/2023) Performed for Need for hepatitis C screening test * MRI BREAST BILAT WWO CONTRAST(Performed 01/19/2023) Performed for Mass of right breast, unspecified quadrant * MAMMO RIGHT POST CLIP OR WIRE(Performed 01/06/2023) Performed for S/P breast biopsy, right * MAMMO STEREOTACTIC RIGHT BIOPSY(Performed 01/06/2023) Performed for Breast calcifications on mammogram * US BREAST RIGHT BIOPSY(Performed 01/06/2023) Performed for Abnormal findings on diagnostic imaging of breast * PATHOLOGY TISSUE EXAM (STL)(Performed 01/06/2023) Performed for Abnormal findings on diagnostic imaging of breast * US BREAST BILATERAL LTD(Performed 12/30/2022) Performed for Encounter for screening mammogram for malignant neoplasm of breast * MAMMO BILAT DIAGNOSTIC W DONALD(Performed 12/30/2022) Performed for Encounter for screening mammogram for malignant neoplasm of breast * US BREAST LEFT LTD(Performed 03/17/2022) Performed for Abnormal mammogram of left breast * MAMMO LEFT DIAGNOSTIC W DONALD(Performed 03/17/2022) Performed for Abnormal mammogram of left breast * MAMMO BILAT SCREENING W DONALD(Performed 12/24/2021) Performed for Encounter for screening mammogram for malignant neoplasm of breast * US PELVIS W TRANSVAG NON OB(Performed 10/13/2021) Performed for Pelvic pain * MAMMO BILAT SCREENING(Performed 05/22/2020) Performed for Visit for screening mammogram * MAMMO BILAT SCREENING(Performed 01/05/2019) Performed for Visit for screening mammogram * MAMMO SCREENING BILATERAL(Performed 12/31/2017) * PAP IG LB+HPV APTIMA(Performed 12/29/2017) Performed for Well woman exam * US BREAST RIGHT COMPLETE(Performed 12/21/2016) Performed for Breast asymmetry * MAMMO RIGHT DIAGNOSTIC(Performed 12/03/2016) Performed for Breast asymmetry * CT ABDOMEN PELVIS W CONTRAST(Performed 09/07/2013) Performed for Abdominal pain, unspecified site * LIPASE BLOOD(Performed 09/07/2013) Performed for Abdominal pain, unspecified site * AMYLASE BLOOD(Performed 09/07/2013) Performed for Abdominal pain, unspecified site * COMPREHENSIVE METABOLIC PANEL(Performed 09/07/2013) Performed for Abdominal pain, unspecified site * CBC W AUTO DIFFERENTIAL(Performed 09/07/2013) Performed for Abdominal pain, unspecified site Results * CT ABDOMEN PELVIS W CONTRAST (06/04/2024 2:14 PM SYSTEMS TEST ENGINEER) Only the most recent of2 resultswithin the time period is included. Anatomical Region Laterality Modality Abdomen, Pelvis Computed Tomogra phy 06/04/2024 2:52 PM SYSTEMS TEST ENGINEER Impressions 06/04/2024 2:55 PM SYSTEMS TEST ENGINEER IMPRESSION: 1.Bilateral ovarian follicle/cysts, the largest is seen on the right it measures up to 2.9 cm in diameter. 2.Mild colonic diverticulosis with questionable inflammatory changes of the sigmoid colon which could suggest acute diverticulitis. No gross evidence of perforation. 3.Cholelithiasis. 4.Grade 1 anterolisthesis of L4 on L5 with likely associated moderate spinal canal stenosis. MRI could provide further evaluation if desired. > Interpreting Provider: Felipe Alicea MD on 06/04/2024 2:55 PM Narrative 06/04/2024 2:55 PM SYSTEMS TEST ENGINEER PROCEDURE(s): CT ABDOMEN PELVIS W CONTRAST DATE AND TIME OF EXAM(s): 06/04/2024 2:19 PM INDICATION(s): R10.30: Lower abdominal pain, unspecified. COMPARISON(s): CT of abdomen and pelvis dated 09/07/2013. TECHNIQUE: CT of the abdomen and pelvis was performed following the uneventful intravenous administration of the contrast listed below. Multiplanar reconstructions were reviewed. Contrast: IOPAMIDOL 76 % IV SOLN:80 mL. One or more of the following CT dose reduction techniques were utilized: - Automated Exposure Control (AEC) - Adjustment of mA and/or kV according to patient size - Iterative Reconstruction - ALARA or ALARA/IMAGE GENTLY FINDINGS: The lung bases are clear. There is no pleural effusion. The heart is normal in size without pericardial effusion. The liver is normal in size and morphology. There is cholelithiasis. There is no abnormal intra-or extrahepatic biliary ductal dilation. The pancreas, spleen, and adrenal glands are unremarkable. The kidneys and urinary bladder are unremarkable. The uterus is unremarkable. Bilateral ovarian follicles/cysts are seen, the largest is seen on the right measures up to 2.9 cm in diameter. The small bowels normal in caliber and wall thickness. The appendix is normal. There is moderate chronic diverticulosis with questionable inflammatory changes of the sigmoid colon which could represent acute diverticulitis. No gross evidence of perforation is seen. There is no masslike lymphadenopathy. There is no free air or fluid. The superficial soft tissues are unremarkable. There is grade 1 anterolisthesis of L4 on L5 with likely associated moderate spinal canal stenosis. MRI could provide further evaluation if desired. Procedure Note Felipe Alicea MD - 06/04/2024 PROCEDURE(s): CT ABDOMEN PELVIS W CONTRAST DATE AND TIME OF EXAM(s): 06/04/2024 2:19 PM INDICATION(s): R10.30: Lower abdominal pain, unspecified. COMPARISON(s): CT of abdomen and pelvis dated 09/07/2013. TECHNIQUE: CT of the abdomen and pelvis was performed following the uneventful intravenous administration of the contrast listed below. Multiplanar reconstructions were reviewed. Contrast: IOPAMIDOL 76 % IV SOLN:80 mL. One or more of the following CT dose reduction techniques were utilized: - Automated Exposure Control (AEC) - Adjustment of mA and/or kV according to patient size - Iterative Reconstruction - ALARA or ALARA/IMAGE GENTLY FINDINGS: The lung bases are clear. There is no pleural effusion. Theheart is normal in size without pericardial effusion. The liver is normal in size and morphology. There is cholelithiasis.There is no abnormal intra-or extrahepatic biliary ductal dilation. Thepancreas, spleen, and adrenal glands are unremarkable. The kidneys and urinary bladder are unremarkable. The uterus is unremarkable. Bilateral ovarian follicles/cysts are seen, the largest is seen on the right measures up to 2.9 cm in diameter. The small bowels normal in caliber and wall thickness. The appendix is normal. There is moderate chronic diverticulosis with questionable inflammatory changes of the sigmoid colon which could represent acute diverticulitis. No gross evidence of perforation is seen. There is no masslike lymphadenopathy. There is no free air or fluid. The superficial soft tissues are unremarkable. There is grade 1 anterolisthesis of L4 on L5 with likely associated moderate spinal canal stenosis. MRI could provide further evaluation if desired. IMPRESSION: 1.Bilateral ovarian follicle/cysts, the largest is seen on the right it measures up to 2.9 cm in diameter. 2.Mild colonic diverticulosis with questionable inflammatory changes ofthe sigmoid colon which could suggest acute diverticulitis. No grossevidence of perforation. 3.Cholelithiasis. 4.Grade 1 anterolisthesis of L4 on L5 with likely associated moderate spinal canal stenosis. MRI could provide further evaluation if desired. > Interpreting Provider: Felipe Alicea MD on 06/04/2024 2:55 PM Terra Wagner MD CT ORDERABLES * LACTIC ACID BLOOD REFLEX TO REPEAT (06/04/2024 1:20 PM SYSTEMS TEST ENGINEER) Pathologist [facility] Lactic Acid 0.9 <=2.0 mmol/L 06/04/2024 1:44 PM SYSTEMS TEST ENGINEER [facility] Blood BLOOD SPECIMEN / Unknown Venipuncture / Unknown 06/04/2024 1:20 PM SYSTEMS TEST ENGINEER 06/04/2024 1:28 PM SYSTEMS TEST ENGINEER Terra Wagner MD LAB - CHEMISTRY CHANEL FELIX [facility] Organization Address City/State/ZIP Co de Phone Number [facility] [address] [place] [address] * CBC W AUTO DIFFERENTIAL (06/04/2024 1:20 PM SYSTEMS TEST ENGINEER) Only the most recent of3 resultswithin the time period is included. Pathologist [facility] WBC 8.6 4.0 - 10.7 x10E9/L 06/04/2024 1:31 PM SYSTEMS TEST ENGINEER [facility] RBC Count 4.99 3.90 - 5.20 x10E12/L 06/04/2024 1:31 PM SYSTEMS TEST ENGINEER [facility] Hemoglobin 14.6 11.9 - 15.8 g/dL 06/04/2024 1:31 PM SYSTEMS TEST ENGINEER [facility] Hematocrit 43.9 34.8 - 46.1 % 06/04/2024 1:31 PM SYSTEMS TEST ENGINEER [facility] MCV 88.0 80.0 - 98.0 fL 06/04/2024 1:31 PM SYSTEMS TEST ENGINEER [facility] MCH 29.3 26.7 - 33.6 pg 06/04/2024 1:31 PM SYSTEMS TEST ENGINEER [facility] MCHC 33.3 31.7 - 36.3 g/dL 06/04/2024 1:31 PM SYSTEMS TEST ENGINEER [facility] RDW-CV 12.2 11.3 - 14.8 % 06/04/2024 1:31 PM [facility] Platelet Count 408 150 - 420 x10E9/L 06/04/2024 1:31 PM [facility] MPV 9.1 7.8 - 11.4 fL 06/04/2024 1:31 PM [facility] Neutrophil % 70.9 41.0 - 74.0 % 06/04/2024 1:31 PM [facility] Lymphocyte % 19.9 17.0 - 47.0 % 06/04/2024 1:31 PM [facility] Monocyte % 5.8 3.0 - 11.0 % 06/04/2024 1:31 PM [facility] Eosinophil % 2.3 0.0 - 7.0 % 06/04/2024 1:31 PM [facility] Basophil % 0.9 0.0 - 1.6 % 06/04/2024 1:31 PM [facility] Immature Granulocytes % 0.2 0.0 - 1.0 % 06/04/2024 1:31 PM [facility] Neutrophil Absolute 6.12 1.60 - 7.50 x10E9/L 06/04/2024 1:31 PM [facility] Lymphocyte Absolute 1.72 1.00 - 4.40 x10E9/L 06/04/2024 1:31 PM [facility] Monocyte Absolute 0.50 0.15 - 1.00 x10E9/L 06/04/2024 1:31 PM [facility] Eosinophil Absolute 0.20 0.00 - 0.60 x10E9/L 06/04/2024 1:31 PM [facility] Basophil Absolute 0.08 0.00 - 0.13 x10E9/L 06/04/2024 1:31 PM [facility] Blood BLOOD SPECIMEN / Unknown Venipuncture / Unknown 06/04/2024 1:20 PM SYSTEMS TEST ENGINEER 06/04/2024 1:28 PM [facility] Terra Wagner MD LAB - HEMATOLOGY ORD ERABLES [facility] [address] [place] [address] * (ABNORMAL) COMPREHENSIVE METABOLIC PANEL (06/04/2024 1:20 PM SYSTEMS TEST ENGINEER) Only the most recent of2 resultswithin the time period is included. Glucose 89 70 - 99 mg/dL 06/04/2024 1:44 PM [facility] Sodium 145 136 - 145 mmol/L 06/04/2024 1:44 PM [facility] Potassium 4.0 3.5 - 5.1 mmol/L 06/04/2024 1:44 PM [facility] Chloride 108(H) 98 - 107 mmol/L 06/04/2024 1:44 PM [facility] CO2 24 22 - 29 mmol/L 06/04/2024 1:44 PM [facility] Calcium 10.4 8.4 - 10.4 mg/dL 06/04/2024 1:44 PM [facility] Anion Gap 13 6 - 16 mmol/L 06/04/2024 1:44 PM [facility] BUN 9 7 - 26 mg/dL 06/04/2024 1:44 PM [facility] Creatinine 0.86 0.57 - 1.11 mg/dL 06/04/2024 1:44 PM [facility] Alkaline Phosphatase 57 40 - 150 U/L 06/04/2024 1:44 PM [facility] ALT 31 0 - 55 U/L 06/04/2024 1:44 PM [facility] AST 25 5 - 34 U/L 06/04/2024 1:44 PM [facility] Protein Total 8.7(H) 6.4 - 8.3 gm/dL 06/04/2024 1:44 PM [facility] Albumin 4.1 3.4 - 5.0 gm/dL 06/04/2024 1:44 PM [facility] Bilirubin Total 0.2 0.2 - 1.2 mg/dL 06/04/2024 1:44 PM [facility] eGFR by CKD-EPI 81(L) >=90 mL/min/1.7 3 m2 06/04/2024 1:44 PM [facility] Blood BLOOD SPECIMEN / Unknown Venipuncture / Unknown 06/04/2024 1:20 PM SYSTEMS TEST ENGINEER 06/04/2024 1:28 PM SYSTEMS TEST ENGINEER Terra Wagner MD LAB - CHEMISTRY CHANEL FELIX Performing Organization Address [facility] de Phone Number [facility] [address] [place] [address] * HCG BLOOD QUALITATIVE (06/04/2024 1:20 PM SYSTEMS TEST ENGINEER) [facility] HCG Qual Serum Negative Negative 06/04/2024 1:39 PM SYSTEMS TEST ENGINEER [facility] Blood BLOOD SPECIMEN / Unknown Venipuncture / Unknown 06/04/2024 1:20 PM SYSTEMS TEST ENGINEER 06/04/2024 1:28 PM SYSTEMS TEST ENGINEER Narrative [facility] - 06/04/2024 1:39 PM SYSTEMS TEST ENGINEER Specimens containing human anti-mouse antibodies may exhibit false positive or false negative results. If qualitative interpretation is inconsistent with clinical evaluation, consider confirmation by an alternative hCG method. Terra Wagner MD LAB - CHEMISTRY CHANEL FELIX Performing Organization Address [facility] de Phone Number [facility] [address] [place] [address] * ESTRADIOL (05/16/2024 3:05 PM SYSTEMS TEST ENGINEER) [facility] Estradiol 234.0 pg/mL [facility] ACCOUNT BILL Comment: ? Adult Female ? Range ?Follicular phase ? 12.5 - 166.0 ?Ovulation phase ?85.8 - 498.0 ?Luteal phase ? 43.8 - 211.0 ?Postmenopausal ? <6.0 - ??54.7 ?1st trimester ? 215.0 - >4300.0 Phong ECLIA methodology Blood BLOOD SPECIMEN / Unknown 05/16/2024 3:05 PM SYSTEMS TEST ENGINEER 05/16/2024 Comment:Blood Release to pat i Narrative [facility] ACCOUNT BILL - 05/17/2024 1:10 PM SYSTEMS TEST ENGINEER Performed at: ??01 - [facility] [address] [place], [place] ??[id number] It Program Auditor: Declan Drake PhD, Phone: ??[phone] Bernardo Lizarraga MD LAB - CHEMISTRY CHANEL FELIX [facility] ACCOUNT BILL [address] [place] [address] * FSH + LH PANEL (05/16/2024 3:05 PM SYSTEMS TEST ENGINEER) LH 9.1 mIU/mL [facility] ACCOUNT BILL Comment: [...] BLOOD SPECIMEN / Unknown 05/16/2024 3:05 PM SYSTEMS TEST ENGINEER 05/16/2024 Comment:Blood Release to pat i Narrative [facility] ACCOUNT BILL - 05/17/2024 12:07 AM SYSTEMS TEST ENGINEER Performed at: ??[address] [place] [address] ??[id number] It Program Auditor: Dillan Hernandez MD, Phone: ??[phone] Bernardo Lizarraga MD LAB - CHEMISTRY CHANEL FELIX Performing Organization Address City/State/[facility] Co de Phone Number [facility] ACCOUNT BILL [address] [place] [address] * PATHOLOGY TISSUE EXAM (STL) (11/30/2023 11:34 AM CDT) Only the most recent of4 resultswithin the time period is included. Case Report Surgical Pathology Report ? Case: [id number] ? Authorizing Provider: ??Naya Leonard, DO ? Collected: ? 11/30/2023 11:34 AM ? Ordering Location: ? [facility] - Received: ?11/30/2023 01:51 PM ? General Surgery ? Pathologist: ? Sarah Blount MD ? Specimen: ?Chest Mass, chest wall mass ? 12/02/2023 8:47 AM CDT [facility] Final Diagnosis Left chest wall mass, excision: -- Adipose connective tissue with fat necrosis and foreign body reaction 12/02/2023 8:47 AM T [facility] Gross Description Received in formalin in a single container, labeled Betina Coy, left chest wall mass, are two fragments of a disrupted fibromembranous tissue fragment, measuring 2.5 x 2.2 x 1.2 cm in aggregate. Sections show a gritty yellow-hurtado adipose tissue. Program Trainer sections are submitted in cassette A1. /tc 12/02/2023 8:47 AM CDT [facility] Microscopic Description Microscopic examination substantiates the above cited diagnosis. 12/02/2023 8:47 AM CDT [facility] Disclaimer All histochemical and/or immunohistochemical results are interpreted with controls that demonstrate appropriate staining reactions before reporting results. Note on use of immunocytochemistry reagents: This test was developed and its performance characteristic determined by [facility], Department of Laboratory Medicine. It has not been cleared or approved by the U.S. Food and Drug Administration (FDA). The FDA has determined that such clearance or approval is not necessary. The test is used for clinical purpose. It should not be regarded as investigational or for research. This laboratory is certified to perform high complexity testing. The performance characteristics of the IHC/ALESIA assays have been validated on formalin-fixed paraffin embedded tissues only. The assays have not been validated on decalcified tissues. Results should be interpreted with caution. 12/02/2023 8:47 AM CDT [facility] Embedded Images 12/02/2023 8:47 AM CDT [facility] Pathology/Cytolo gy MASS OF CHEST WALL / Unknown 11/30/2023 11:34 AM CDT 11/30/2023 1:51 PM CDT Comment:Pre-op diagnosis: Mass in chest [R22.2] Naya Leonard DO LAB - PATHOLOGY/CYTO LOGY ORDERABLES Performing Organization Address [facility] Co de Phone Number [facility] [address] [address] [place], [place] [id number] * HCG URINE QUAL POCT NOTIFICATION (11/30/2023 10:30 AM CDT) Comment Notification Label Only - See Separate Report 11/30/2023 10:30 AM CDT [facility] Urine URINE / Unknown 9:29 AM CDT Ricarda Zarate DO LAB - URINALYSIS ORD ERABLES Performing Organization Address [facility] Co de Phone Number [facility] [address] [place] [phone] * HCG URINE QUALITATIVE - POCT (IP) INTERFACED (11/30/2023 9:32 AM CDT) HCG Qual Urine Negative Negative 11/30/2023 9:38 AM CDT [facility] Urine URINE / Unknown 11/30/2023 9 :32 AM CDT 11/30/2023 9:38 AM CDT Naya Leonard DO LAB - POINT OF CARE ORDERABLES [facility] [address] [place] [address] * ENDOSCOPY, COLON, SCREENING (09/27/2023 9:15 AM CDT) Report Endoscopy POC _ Patient Name: Betina Coy ? Procedure Date: 09/27/2023 9:15 AM ? Date of : 1970 ?Admit Type: Outpatient Age: 53 ? Gender: Female Attending MD: Adama Holliday MD, [id number] _ Procedure: ? Colonoscopy Indications: ? Screening for colorectal malignant neoplasm Providers: ? Adama Holliday MD (Doctor) Patient Profile: ? 53yo female with average risk for colon cancer here ? for screening colonoscopy Referring MD: ?Celina Sifuentes MD (Referring MD) Medicines: ? Monitored Anesthesia Care Complications: ? No immediate complications. _ Estimated Blood Loss: ? Estimated blood loss: none. Procedure: ? Pre-Anesthesia Assessment: ? - Prior to the procedure, a History and Physical was ? performed, and patient medications, allergies and ? sensitivities were reviewed. The patient's tolerance ? of previous anesthesia was reviewed. ? - The risks and benefits of the procedure and the ? sedation options and risks were discussed with the ? patient. All questions were answered and informed ? consent was obtained. ? - Prior Anticoagulants: The patient has taken no ? anticoagulant or antiplatelet agents. ? - Prior Aspirin/ NSAID therapy: The patient has taken ? no aspirin or NSAID medications. ? - ASA Grade Assessment: II - A patient with mild ? systemic disease. ? After I obtained informed consent, the scope was ? passed under direct vision. Throughout the procedure, ? the patient's blood pressure, pulse, and oxygen ? saturations were monitored continuously. The ? Colonoscope was introduced through the anus and ? advanced to the cecum, identified by appendiceal ? orifice and ileocecal valve. The colonoscopy was ? performed without difficulty. The patient tolerated ? the procedure well. The quality of the bowel ? preparation was evaluated using the BBPS (London Bowel ? Preparation Scale) with scores of: Right Colon = 3, ? Transverse Colon = 3 and Left Colon = 3 (entire mucosa ? seen well with no residual staining, small fragments ? of stool or opaque liquid). The total BBPS score ? equals 9. The ileocecal valve, appendiceal orifice, ? and rectum were photographed. ? Findings: ? The perianal and digital rectal examinations were normal. ? Multiple small and large-mouthed diverticula were found in the sigmoid ? colon. ? The retroflexed view of the distal rectum and anal verge was normal and ? showed no anal or rectal abnormalities. _ ? Impression: ?- Diverticulosis in the sigmoid colon. ? - The distal rectum and anal verge are normal on ? retroflexion view. ? - No specimens collected. Recommendation: ?- Discharge patient to home. ? - Patient has a contact number available for ? emergencies. The signs and symptoms of potential ? delayed complications were discussed with the patient. ? Return to normal activities tomorrow. Written ? discharge instructions were provided to the patient. ? - Resume previous diet. ? - Repeat colonoscopy in 10 years for screening ? purposes. ? Procedure Code(s): ? --- Professional --- ? 46947, Colonoscopy, flexible; diagnostic, including collection of ? specimen(s) by brushing or washing, when performed (separate procedure) ? --- Technical --- ? 02551, Colonoscopy, flexible; diagnostic, including collection of ? specimen(s) by brushing or washing, when performed (separate procedure) Diagnosis Code(s): ? --- Professional --- ? Z12.11, Encounter for screening for malignant neoplasm of colon ? K57.30, Diverticulosis of large intestine without perforation or abscess ? without bleeding ? --- Technical --- ? Z12.11, Encounter for screening for malignant neoplasm of colon ? K57.30, Diverticulosis of large intestine without perforation or abscess ? without bleeding CPT copyright 2020 [employer]. All rights reserved. The codes documented in this report are preliminary and upon business administration instructor review may be revised to meet current compliance requirements. __ Adama Holliday MD 09/27/2023 10:47:51 AM Number of Addenda: 0 Note Initiated On: 09/27/2023 9:15 AM [facility] 09/27/2023 9:15 AM CDT Narrative Procedure Note Adama Holliday MD - 09/27/2023 10:48 AM CDT Colonoscopy done for screening. Normal colon other than diverticulosis.Repeat in 10 years for screening. Ricky Fuentes MD GI PROCEDURE ORDERA [facility] Performing Organization Address City/State/[facility] Co de Phone Number [facility] [place] [address] * US PELVIS W TRANSVAG NON OB (09/14/2023 9:25 AM SYSTEMS TEST ENGINEER) Only the most recent of2 resultswithin the time period is included. Anatomical Region Laterality Modality Pelvis Ultrasound 09/14/2023 9:31 AM SYSTEMS TEST ENGINEER Impressions 09/14/2023 9:34 AM SYSTEMS TEST ENGINEER IMPRESSION: 1. Small uterine leiomyomas with the larger measuring 2.5 cm diameter. 2. 4.1 cm simple appearing right ovarian cyst. 3. Nonvisualization of the left ovary. > Interpreting Provider: Isabell Dillard MD on 09/14/2023 9:34 AM Narrative 09/14/2023 9:34 AM SYSTEMS TEST ENGINEER PROCEDURE: ??US PELVIS W TRANSVAG NON OB DATE/TIME OF EXAM: ??09/14/2023 9:25 AM CLINICAL INFORMATION: None relevant/not provided if blank. Indication: N95.0: Postmenopausal bleeding Additional History: Patient on tamoxifen COMPARISON: October 13, 2021 TECHNIQUE: Real time transabdominal and transvaginal pelvic ultrasound was performed by the helmet coverer with DICOM image capture. Grayscale images were obtained; additionally, Color Doppler and pulse wave Spectral Doppler interrogation was performed and interpreted. FINDINGS: The uterus measures 12.4 x 5 x 5.7 cm. There are 2 leiomyomas present. The larger measures 3.1 cm in diameter and the smaller measures 1.9 cm in diameter. The endometrial stripe is homogeneous and measures 5 mm in thickness. The right ovary measures 5.3 x 4.4 x 3.9 cm with a 4.1 x 4.1 x 3.4 cm simple appearing cyst present. Normal color flow, arterial waveform, and venous waveform imaging was obtained of the right ovary. The left ovary is not visualized. No free fluid is seen in the cul-de-sac. Procedure Note Isabell Dillard MD - 09/14/2023 PROCEDURE: US PELVIS W TRANSVAG NON OB DATE/TIME OF EXAM: 09/14/2023 9:25 AM CLINICAL INFORMATION: None relevant/not provided if blank. Indication: N95.0: Postmenopausal bleeding Additional History: Patient on tamoxifen COMPARISON: October 13, 2021 TECHNIQUE: Real time transabdominal and transvaginal pelvic ultrasound wasperformed by the helmet coverer with DICOM image capture. Grayscale images were obtained; additionally, Color Doppler and pulse wave Spectral Doppler interrogation was performed and interpreted. FINDINGS: The uterus measures 12.4 x 5 x 5.7 cm. There are 2 leiomyomas present.The larger measures 3.1 cm in diameter and the smaller measures 1.9 cm in diameter. The endometrial stripe is homogeneous and measures 5 mm in thickness. The right ovary measures 5.3 x 4.4 x 3.9 cm with a 4.1 x 4.1 x 3.4 cm simple appearing cyst present. Normal color flow, arterial waveform, and venous waveform imaging was obtained of the right ovary. The left ovary is not visualized. No free fluid is seen in the cul-de-sac. IMPRESSION: 1. Small uterine leiomyomas with the larger measuring 2.5 cm diameter. 2. 4.1 cm simple appearing right ovarian cyst. 3. Nonvisualization of the left ovary. > Interpreting Provider: Isabell Dillard MD on 09/14/2023 9:34 AM Leatha Gupta MD US ORDERABLES * CARDIAC RHYTHM STRIP ORDER (06/09/2023 5:11 PM SYSTEMS TEST ENGINEER) Narrative 06/09/2023 5:11 PM SYSTEMS TEST ENGINEER Ordered by an unspecified provider. Scanned Document CARDIAC SERVICES ORD ERABLES * ETT LINE PERFORMABLE (06/08/2023 12:29 PM SYSTEMS TEST ENGINEER) Narrative Shady Tafoya APRN-TECHNICAL SUPPORT ASSISTANT - 06/08/2023 12:29 PM SYSTEMS TEST ENGINEER Shady Tafoya APRN-CRNA ? 06/08/2023 12:30 PM Endotracheal Tube Placement: ? Intubation Event Date/Time: ??06/08/2023 12:28 PM Procedure: intubation (45684). Procedure Section: ?? Sedation: under general anesthesia. Indications for Airway Management: ??anesthesia Procedure pretreatments used? ??No Induction: standard IV Patient Position: ??supine Mask Ventilation: easy. Blade Type: Amparo Blade Size: 3 Laryngoscopy View: grade 1 (full cords) Intubation Adjuncts: stylet Tube: endotracheal tube Placement: oral Tube type: cuff - inflated Tube Size (MM): 7 Depth of Insertion (CM): 22 Cuff Inflated With: air Number of Attempts: 1. Placement Verified By: CO2 monitor Tube secured with: ??adhesive tape. Dentition unchanged? ??Yes Procedure Start Time: 06/08/2023 12:28 PM. Staff Section ? Anesthesia Provider: Letitia Ackerman MD, Performed the procedure Giacomo Correa MD GENERAL ANESTHESIA O RDERABLES * PAP IG LB+HPV APTIMA (05/27/2023 4:44 PM SYSTEMS TEST ENGINEER) Only the most recent of2 resultswithin the time period is included. Diagnosis [facility] ACCOUNT BILL Comment:NEGATIVE FOR INTRAEP ITHELIAL LESION OR MALIGNANCY. Specimen Adequacy [facility] ACCOUNT BILL Comment:Satisfactory for king luation. No endocervical component is identified. Clinician Provided ICD10 [facility] ACCOUNT BILL Comment: Z01.419 Z85.3 Z23 Performed by [facility] ACCOUNT BILL Comment:Elaine Camargo, Cytotec hnologist (ASCP) Comment . [facility] ACCOUNT BILL Note [facility] ACCOUNT BILL Comment: The Pap smear is a screening test designed to aid in the detection of premalignant and malignant conditions of the uterine cervix. ??It is not a diagnostic procedure and should not be used as the sole means of detecting cervical cancer. ??Both false-positive and false-negative reports do occur. ? . IGLBP CPT Code Automation [facility] ACCOUNT BILL Comment: This liquid based ThinPrep(R) pap test was screened with the use of an image guided system. Human papillomavirus Aptima Negative Negative [facility] ACCOUNT BILL Comment: This nucleic acid amplification test detects fourteen high-risk HPV types (16,18,31,33,35,39,45,51,52,56,58,59,66,68) without differentiation. Pathology/Cytolog y PART OF UTERINE CERVIX / Unknown 05/27/2023 4:44 PM SYSTEMS TEST ENGINEER 05/31/2023 Narrative [facility] ACCOUNT BILL - 06/02/2023 10:12 AM SYSTEMS TEST ENGINEER No. of containers..01 ThinPrep Vial Resulting Agency Comment Lab Testing performed at: [facility] ??[facility] [phone] Leatha Gupta MD LAB - PATHOLOGY/CYT OLOGY ORDERABLES [facility] ACCOUNT BILL [address] [place] [address] * HCG URINE QUALITATIVE (02/25/2023 6:32 AM CDT) Only the most recent of2 resultswithin the time period is included. hCG Qualitative Urine Negative Negative 02/25/2023 6:42 AM CDT [facility] Urine URINE / Unknown Collection / Unknown 02/25/2023 6:32 AM CDT 02/25/2023 6:36 AM CDT Kaila Jamison DO LAB - URINALYSIS ORD ERABLES Performing Organization Address [facility] de Phone Number [facility] [address] [place] [address] * (ABNORMAL) STREP A SCREEN DIRECT W RFLX STREP A CULTURE (02/19/2023 4:33 AM CDT) Strep A Rapid Positive(A ) Negative 02/19/2023 4:57 AM CDT [facility] Microbiology ENTIRE THROAT (SURFACE REGION OF NECK) / Unknown Collection / Unknown 02/19/2023 4:33 AM CDT 02/19/2023 4:38 AM CDT Angie Rodriguez MD LAB - MICROBIOLOGY ORDERABLES Performing Organization Address [facility] de Phone Number [facility] [address] [place] [address] * ETT LINE PERFORMABLE (02/18/2023 9:03 AM CDT) Narrative Janell Ghotra APRN-TECHNICAL SUPPORT ASSISTANT - 02/18/2023 9:03 AM CDT Janell Ghotra APRN-TECHNICAL SUPPORT ASSISTANT ? 02/18/2023 ??9:04 AM Endotracheal Tube Placement: ? Patient Location: OR. Intubation Event Date/Time: ??02/18/2023 8:53 AM Procedure: intubation ([id number]). Procedure Section: ?? Sedation: under general anesthesia. Indications for Airway Management: ??anesthesia Induction: standard IV Patient Position: ??sniffing Mask Ventilation: easy. Blade Type: Weaver Blade Size: 2 Laryngoscopy View: grade 1 (full cords) Intubation Adjuncts: stylet Tube: endotracheal tube Placement: oral Tube type: cuff - inflated Tube Size (MM): 7 Depth of Insertion (CM): 21 Measured From: lips Cuff Inflated With: air Number of Attempts: 1. Placement Verified By: direct visualization, bilateral breath sounds, chest auscultation and CO2 monitor Tube secured with: ??adhesive tape. Dentition unchanged? ??Yes Difficult Airway? ??No. Procedure Start Time: 02/18/2023 8:53 AM. Staff Section ? Anesthesia Provider: Janell Ghotra APRN-MARJAN, Performed the procedure Alan Damon MD GENERAL ANESTHESIA O RDERABLES * NM LYMPHOSCINTIGRAPHY (02/18/2023 8:16 AM CDT) Anatomical Region Laterality Modality Nuclear Medicine 02/18/2023 9:01 AM CDT Impressions 02/18/2023 9:01 AM CDT Impression: Breast injection for lymph node mapping > Interpreting Provider: Abel Chris MD on 02/18/2023 9:01 AM Narrative 02/18/2023 9:01 AM CDT PROCEDURE: ??NM LYMPHOSCINTIGRAPHY DATE/TIME OF EXAM: ??02/18/2023 8:16 AM CLINICAL INFORMATION: None relevant/not provided if blank. Indication: N63.10: Unspecified lump in the right breast, unspecified quadrant Additional History: NUCLEAR MEDICINE SENTINEL LYMPH NODE MAPPING (INJECTION ONLY) INDICATION: Right breast lesion, breast carcinoma, to prior breast biopsies TECHNIQUE: Informed consent was obtained. The skin surrounding the areola of the right breast was prepped. A four quadrant periareolar intradermal injection of 1.0 mCi Tc99 filtered Lymphoseek was performed following topical local anesthesia with 1% Lidocaine. Procedure Note Abel Chris MD - 02/18/2023 PROCEDURE: NM LYMPHOSCINTIGRAPHY DATE/TIME OF EXAM: 02/18/2023 8:16 AM CLINICAL INFORMATION: None relevant/not provided if blank. Indication: N63.10: Unspecified lump in the right breast, unspecified quadrant Additional History: NUCLEAR MEDICINE SENTINEL LYMPH NODE MAPPING (INJECTION ONLY) INDICATION: Right breast lesion, breast carcinoma, to prior breastbiopsies TECHNIQUE: Informed consent was obtained. The skin surrounding theareola of the right breast was prepped. A four quadrant periareolar intradermal injection of 1.0 mCi Tc99 filtered Lymphoseek was performed following topical local anesthesia with 1% Lidocaine. Impression: Breast injection for lymph node mapping > Interpreting Provider: Abel Chris MD on 02/18/2023 9:01 AM Naya MONTENEGRO ORDERABLES * XR HAND BILAT 2VW (02/05/2023 10:04 AM CDT) Anatomical Region Laterality Modality Wrist / Hand, Upper Extremity Ra diographic Imaging 02/05/2023 10:3 6 AM CDT Narrative 02/05/2023 10:39 AM CDT PROCEDURE(s): XR HAND BILAT 2VW DATE AND TIME OF EXAM(s): 02/05/2023 10:04 AM INDICATION(s): Hand pain COMPARISON(s): None available. FINDINGS/IMPRESSION: No acute fracture or dislocation is seen. Bone density and texture are normal. There is mild narrowing of multiple distal interphalangeal joints of the bilateral hands. > Interpreting Provider: Isauro Mei MD on 02/05/2023 10:39 AM Procedure Note Isauro Mei MD - 02/05/2023 PROCEDURE(s): XR HAND BILAT 2VW DATE AND TIME OF EXAM(s): 02/05/2023 10:04 AM INDICATION(s): Hand pain COMPARISON(s): None available. FINDINGS/IMPRESSION: No acute fracture or dislocation is seen. Bone density and texture are normal. There is mild narrowing of multiple distal interphalangealjoints of the bilateral hands. > Interpreting Provider: Isauro Mei MD on 02/05/2023 10:39 AM Celina Sifuentes MD DIAGNOSTIC JOSEPHIN G ORDERABLES * HEMOGLOBIN A1C W EAG (02/05/2023 9:29 AM CDT) Hemoglobin A1c 5.3 <5.7 % [facility] ACCOUNT BILL Estimated Average Glucose 105 mg/dL [facility] ACCOUNT BILL Comment: HbA1c Interpretation: Normal: < 5.7% Pre-diabetes: 5.7-6.4% Diabetes: Equal to or greater than 6.5% Test results diagnostic of diabetes should be repeated for c onfirmation. Treatment target values recommended by ADA and other clinica l organizations should be used to evaluate metabolic control in patients. This test should not replace glucose testing for patients wi th Type 1 diabetes, pediatric patients, or women. ??Falsely low HbA The Kenny Sales Administration Manager assay for the measurement of HbA1c is a National Glycohemoglobin Standardization Program (NGSP) certified method. Blood BLOOD SPECIMEN / Unknown 02/05/2023 9:29 AM CDT 02/05/2023 Narrative Resulting Agency Comment Lab Testing performed at: [place] [id number] [place] ?? [place]to [place] [phone] Celina Sifuentes MD LAB - CHEMISTRY O RDTING Performing Organization Address City/[facility] Co de Phone Number [facility] ACCOUNT BILL [address] [place] [address] * (ABNORMAL) LIPID PROFILE (02/05/2023 9:29 AM CDT) Pathologist [facility] Cholesterol 291(H) <200 mg/dL [facility] ACCOUNT BILL Triglycerides 272(H) <150 mg/dL [facility] ACCOUNT BILL HDL Cholesterol 53 >40 mg/dL [facility] ACCOUNT BILL VLDL Calculated 54(H) <=30 mg/dL [facility] ACCOUNT BILL LDL Calculated 184(H) <130 mg/dL [facility] ACCOUNT BILL Blood BLOOD SPECIMEN / Unknown 02/05/2023 9:29 AM CDT 02/05/2023 Narrative Resulting Agency Comment Lab Testing performed at: [place] [id number] ?? [place] [place] [phone] Celina Sifuentes MD LAB - CHEMISTRY O RDERAAMBER Performing Organization Address City/[facility]/ZIP Co de Phone Number [facility] ACCOUNT BILL [address] [place] [address] * HIV-1 HIV-2 ANTIBODY + HIV P24 AG PANEL (02/05/2023 9:28 AM CDT) Pathologist [facility] HIV Screen 4th Generation w Reflex Non Reactive Non Reactive [facility] ACCOUNT BILL Comment: HIV Negative HIV-1/HIV-2 antibodies and HIV-1 p24 antigen were NOT detected. There is no laboratory evidence of HIV infection. Blood BLOOD SPECIMEN / Unknown 02/05/2023 9:28 AM CDT 02/05/2023 Narrative Resulting Agency Comment Lab Testing performed at: [facility] [address] ??[place] [phone] Celina Sifuentes MD LAB - CHEMISTRY O RDERABLES Performing Organization Address [facility] Co de Phone Number [facility] ACCOUNT BILL [address] [place] [address] * HEPATITIS B SURFACE ANTIBODY (02/05/2023 9:28 AM CDT) Hepatitis B Virus Surface Antibody Non Reactive [facility] ACCOUNT BILL Comment: ? Non Reactive: Inconsistent with immunity, ? less than 10 mIU/mL ? Reactive: ? Consistent with immunity, ? greater than 9.9 mIU/mL Blood BLOOD SPECIMEN / Unknown 02/05/2023 9:28 AM CDT 02/05/2023 Narrative Resulting Agency Comment Lab Testing performed at: [facility] [address] ??[place] [phone] Celina Sifuentes MD LAB - CHEMISTRY O RDERABLES Performing Organization Address [facility] de Phone Number [facility] ACCOUNT BILL [address] [place] [address] * HEPATITIS B SURFACE ANTIGEN W RFLX CONFIRMATION (02/05/2023 9:28 AM CDT) Hepatitis B Virus Surface Antigen Negative Negative [facility] ACCOUNT BILL Blood BLOOD SPECIMEN / Unknown 02/05/2023 9:28 AM CDT 02/05/2023 Narrative Resulting Agency Comment Lab Testing performed at: [facility] [address] ??[facility] [phone] Celina Sifuentes MD LAB - CHEMISTRY O RDERABLES [facility] ACCOUNT BILL [address] [place] [address] * HEPATITIS C ANTIBODY (02/05/2023 9:28 AM CDT) Hepatitis C Antibody Non Reactive Non Reactive [facility] ACCOUNT BILL Comment: HCV antibody alone does not differentiate between previously resolved infection and active infection. Equivocal and Reactive HCV antibody results should be followed up with an HCV RNA test to support the diagnosis of active HCV infection. Blood BLOOD SPECIMEN / Unknown 02/05/2023 9:28 AM CDT 02/05/2023 Narrative Resulting Agency Comment Lab Testing performed at: [facility] [address] ??[facility] [phone] Celina Sifuentes MD LAB - CHEMISTRY O RDERABLES Performing Organization Address City/[facility]/ZIP Co de Phone Number [facility] ACCOUNT BILL [address] [place] [address] * HEPATITIS B CORE ANTIBODY IGM (02/05/2023 9:28 AM CDT) Hepatitis B Core Virus Antibody IgM Negative Negative [facility] ACCOUNT BILL Blood BLOOD SPECIMEN / Unknown 02/05/2023 9:28 AM CDT 02/05/2023 Narrative Resulting Agency Comment Lab Testing performed at: [facility] [place] [address] ??[facility] [phone] Celina Sifuentes MD LAB - CHEMISTRY O RDERABLES [facility] ACCOUNT [place] [address] * (ABNORMAL) MRI BREAST BILAT WWO CONTRAST (01/19/2023 3:39 PM CDT) Anatomical Region Laterality Modality Breast Bilateral Magnetic Resonan ce 01/20/2023 12:1 7 PM CDT Impressions 01/20/2023 4:47 PM CDT : 1. The MRI findings are consistent with multifocal/multicentric biopsy-proven malignancy in the RIGHT breast. Based upon the documented and estimated extent of disease, the patient does not appear to be a candidate for right breast conservation therapy. If an attempt at breast conservation therapy is desired, then additional biopsies/biopsies of anterior calcifications seen mammographically would be indicated. 2. There is no suspicious enhancement in the LEFT breast, allowing for marked background glandular enhancement. OVERALL FINAL ASSESSMENT: BI-RADS Category 6: Known Biopsy-Proven Malignancy. > Interpreting Provider: Angie Castelan MD on 01/20/2023 4:47 PM Narrative 01/20/2023 4:47 PM CDT EXAMINATION: 1. MRI EXAMINATION OF THE BREASTS WITH AND WITHOUT CONTRAST 2. 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 ?? DATE OF LAST MENSTRUAL PERIOD: 12/24/2022 TECHNIQUE: MRI examination of the breasts per breast tumor protocol with and without gadolinium contrast. ??A dedicated breast imaging coil was used. The images were transferred to a breast CAD system for 3D post processing and contrast kinetics analysis. ?? CONTRAST: Dotarem, 19 ml COMPARISON: There is no known prior breast MRI; correlation is made with multimodality breast imaging dated 12/24/2021, 03/17/2022, 12/30/2022, 01/06/2023 BREAST COMPOSITION: Heterogeneous fibroglandular tissue BACKGROUND PARENCHYMAL ENHANCEMENT: Marked, which lowers the sensitivity of MRI FINDINGS: RIGHT BREAST: There are postbiopsy changes with a pronounced biopsy tract and possible resolving hematoma in the right medial breast, spanning 4.0 x 1.4 cm. There is minimal surrounding rim enhancement, consistent with postbiopsy changes. There is a 1.4 cm irregular enhancing mass in the upper outer quadrant, at the margin of the glandular tissue and retroglandular fat, with central susceptibility artifact, consistent with the patient's biopsy-proven invasive malignancy. There is nearly indistinguishable from diffuse background glandular enhancement which overall is asymmetric in the right breast compared with the left. The appearance is consistent with the biopsy-proven multifocal/multicentric malignancy and suggesting extensive ductal carcinoma in situ possibly with foci of additional invasion. There are several prominent right axillary lymph nodes, which could be reactive in the postbiopsy setting. LEFT BREAST: There is no suspicious enhancement. There are T2 intense nonenhancing masses, consistent with cysts, most pronounced posterior lateral breast. There are no suspicious lymph nodes in the left axilla. Naya Leonard DO MR ORDERABLES * MAMMO RIGHT POST CLIP OR WIRE (01/06/2023 11:31 AM CDT) Anatomical Region Laterality Modality Breast Right Mammography 01/06/2023 3:43 PM CDT Addenda Addendum by Mahesh Espinoza MD on 01/14/2023 3:50 PM CDT Pathology result of the right breast core needle biopsy of the mass at the 11:00 position 8 cm from the nipple reveals infiltrating ductal carcinoma grade 1. 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 Both results are malignant. Surgical management and preoperative breast MRI are recommended. The patient is scheduled for breast MRI January 27, 2023 and for surgical consultation with breast surgeon Dr. Leonard January 18, 2023. > Interpreting Provider: Mahesh Espinoza MD on 01/14/2023 3:48 PM Impressions 01/06/2023 3:50 PM CDT : ?? Successful core needle biopsy of the RIGHT breast (TWO sites). ??Pathology is pending. > Interpreting Provider: Mahesh Espinoza MD on 01/06/2023 3:50 PM Narrative 01/06/2023 3:50 PM CDT EXAMINATION: 1.RIGHT BREAST CORE BIOPSY UTILIZING SONOGRAPHIC GUIDANCE, 2.RIGHT BREAST VACUUM-ASSISTED CORE BIOPSY UTILIZING TOMOSYNTHESIS AND STEREOTACTIC GUIDANCE, 3.PLACEMENT OF TWO BIOPSY TISSUE MARKER CLIPS, 4.RIGHT FULL FIELD DIGITAL POST-PROCEDURE MAMMOGRAM, INCLUDING DIGITAL BREAST TOMOSYNTHESIS HISTORY: ??Abnormal breast imaging. ??52-year-old woman with highly suspicious right breast mass at the 11:00 position 8 cm from the nipple and highly suspicious right breast calcifications. ??Ultrasound guided core needle biopsy is requested to evaluate for malignancy. COMPARISON: December 30, 2022. PROCEDURE AND FINDINGS: The risks and potential benefits of the procedures were discussed with the patient and written informed consent was obtained. LESION/SITE 1 of 2: Right breast mass 11:00 position 8 cm from the nipple After sterile preparation of the skin, 1% lidocaine was utilized for local anesthesia. 1% lidocaine with epinephrine was utilized for local anesthesia of the deeper breast tissues. A small skin incision was made with a #11 scalpel blade. ??A 14-gauge vacuum assisted biopsy needle was then advanced through the skin incision to the edge of the lesion of interest at the 11:00 position from an inferolateral approach utilizing sonographic guidance. A total of 3 tissue cores were obtained through the lesion. ??A twirl shaped tissue marker clip was then placed at the biopsy site. Hemostasis was achieved. A sterile bandage and an ice pack were applied. The patient tolerated the procedure well and there was no evidence of immediate complication. The patient was given verbal as well as written post procedural instructions prior to release from the department. ??The tissue cores were submitted to surgical pathology in formalin for histologic analysis. LESION/SITE 1 of 2: Right breast calcifications, central breast The patient was placed in the prone position on the biopsy unit with the RIGHT breast in mediolateral compression and the area of interest was localized and targeted utilizing digital imaging with tomosynthesis and stereotaxis. ??After sterile preparation of the skin, 1% lidocaine was utilized for local anesthesia at the skin puncture site and 2% lidocaine with epinephrine was utilized for deeper local anesthesia/hemostasis about the biopsy site. A small skin incision was made with a #11 scalpel blade. A 9 gauge Brevera vacuum-assisted biopsy needle was then advanced through the skin incision to the level of the calcifications of interest in the central right breast from a medial approach utilizing stereotactic guidance and a total of 8 tissue cores were obtained. The specimen radiograph demonstrates that the calcifications of interest are included within the tissue cores. ??[A SecurMark Mini Cork tissue marker clip was then placed at the biopsy site. The needle was removed and hemostasis was achieved. A sterile bandage and an ice pack were applied. ??The tissue cores were submitted to surgical pathology in formalin for histologic analysis. A two-view RIGHT digital mammogram, including digital breast tomosynthesis (DBT), obtained post procedure demonstrates that the tissue marker clips are in expected position. Leatha Gupta MD MAMMO ORDERABLES * MAMMO STEREOTACTIC RIGHT BIOPSY (01/06/2023 11:02 AM CDT) Anatomical Region Laterality Modality Breast Right Mammography 01/06/2023 3:43 PM CDT Addenda Addendum by Mahesh Espinoza MD on 01/14/2023 3:50 PM CDT Pathology result of the right breast core needle biopsy of the mass at the 11:00 position 8 cm from the nipple reveals infiltrating ductal carcinoma grade 1. 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 Both results are malignant. Surgical management and preoperative breast MRI are recommended. The patient is scheduled for breast MRI January 27, 2023 and for surgical consultation with breast surgeon Dr. Leonard January 18, 2023. > Interpreting Provider: Mahesh Espinoza MD on 01/14/2023 3:48 PM Impressions 01/06/2023 3:50 PM CDT : ?? Successful core needle biopsy of the RIGHT breast (TWO sites). ??Pathology is pending. > Interpreting Provider: Mahesh Espinoza MD on 01/06/2023 3:50 PM Narrative 01/06/2023 3:50 PM CDT EXAMINATION: 1.RIGHT BREAST CORE BIOPSY UTILIZING SONOGRAPHIC GUIDANCE, 2.RIGHT BREAST VACUUM-ASSISTED CORE BIOPSY UTILIZING TOMOSYNTHESIS AND STEREOTACTIC GUIDANCE, 3.PLACEMENT OF TWO BIOPSY TISSUE MARKER CLIPS, 4.RIGHT FULL FIELD DIGITAL POST-PROCEDURE MAMMOGRAM, INCLUDING DIGITAL BREAST TOMOSYNTHESIS HISTORY: ??Abnormal breast imaging. ??52-year-old woman with highly suspicious right breast mass at the 11:00 position 8 cm from the nipple and highly suspicious right breast calcifications. ??Ultrasound guided core needle biopsy is requested to evaluate for malignancy. COMPARISON: December 30, 2022. PROCEDURE AND FINDINGS: The risks and potential benefits of the procedures were discussed with the patient and written informed consent was obtained. LESION/SITE 1 of 2: Right breast mass 11:00 position 8 cm from the nipple After sterile preparation of the skin, 1% lidocaine was utilized for local anesthesia. 1% lidocaine with epinephrine was utilized for local anesthesia of the deeper breast tissues. A small skin incision was made with a #11 scalpel blade. ??A 14-gauge vacuum assisted biopsy needle was then advanced through the skin incision to the edge of the lesion of interest at the 11:00 position from an inferolateral approach utilizing sonographic guidance. A total of 3 tissue cores were obtained through the lesion. ??A twirl shaped tissue marker clip was then placed at the biopsy site. Hemostasis was achieved. A sterile bandage and an ice pack were applied. The patient tolerated the procedure well and there was no evidence of immediate complication. The patient was given verbal as well as written post procedural instructions prior to release from the department. ??The tissue cores were submitted to surgical pathology in formalin for histologic analysis. LESION/SITE 1 of 2: Right breast calcifications, central breast The patient was placed in the prone position on the biopsy unit with the RIGHT breast in mediolateral compression and the area of interest was localized and targeted utilizing digital imaging with tomosynthesis and stereotaxis. ??After sterile preparation of the skin, 1% lidocaine was utilized for local anesthesia at the skin puncture site and 2% lidocaine with epinephrine was utilized for deeper local anesthesia/hemostasis about the biopsy site. A small skin incision was made with a #11 scalpel blade. A 9 gauge Brevera vacuum-assisted biopsy needle was then advanced through the skin incision to the level of the calcifications of interest in the central right breast from a medial approach utilizing stereotactic guidance and a total of 8 tissue cores were obtained. The specimen radiograph demonstrates that the calcifications of interest are included within the tissue cores. ??[A ConfabburMark Mini Cork tissue marker clip was then placed at the biopsy site. The needle was removed and hemostasis was achieved. A sterile bandage and an ice pack were applied. ??The tissue cores were submitted to surgical pathology in formalin for histologic analysis. A two-view RIGHT digital mammogram, including digital breast tomosynthesis (DBT), obtained post procedure demonstrates that the tissue marker clips are in expected position. Leatha Gupta MD MAMMO ORDERABLES * US BREAST RIGHT BIOPSY (01/06/2023 10:39 AM CDT) Anatomical Region Laterality Modality Breast Right Ultrasound 01/06/2023 3:43 PM CDT Addenda Addendum by Mahesh Espinoza MD on 01/14/2023 3:50 PM CDT Pathology result of the right breast core needle biopsy of the mass at the 11:00 position 8 cm from the nipple reveals infiltrating ductal carcinoma grade 1. 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 Both results are malignant. Surgical management and preoperative breast MRI are recommended. The patient is scheduled for breast MRI January 27, 2023 and for surgical consultation with breast surgeon Dr. Leonard January 18, 2023. > Interpreting Provider: Mahesh Espinoza MD on 01/14/2023 3:48 PM Impressions 01/06/2023 3:50 PM CDT : ?? Successful core needle biopsy of the RIGHT breast (TWO sites). ??Pathology is pending. > Interpreting Provider: Mahesh Espinoza MD on 01/06/2023 3:50 PM Narrative 01/06/2023 3:50 PM CDT EXAMINATION: 1.RIGHT BREAST CORE BIOPSY UTILIZING SONOGRAPHIC GUIDANCE, 2.RIGHT BREAST VACUUM-ASSISTED CORE BIOPSY UTILIZING TOMOSYNTHESIS AND STEREOTACTIC GUIDANCE, 3.PLACEMENT OF TWO BIOPSY TISSUE MARKER CLIPS, 4.RIGHT FULL FIELD DIGITAL POST-PROCEDURE MAMMOGRAM, INCLUDING DIGITAL BREAST TOMOSYNTHESIS HISTORY: ??Abnormal breast imaging. ??52-year-old woman with highly suspicious right breast mass at the 11:00 position 8 cm from the nipple and highly suspicious right breast calcifications. ??Ultrasound guided core needle biopsy is requested to evaluate for malignancy. COMPARISON: December 30, 2022. PROCEDURE AND FINDINGS: The risks and potential benefits of the procedures were discussed with the patient and written informed consent was obtained. LESION/SITE 1 of 2: Right breast mass 11:00 position 8 cm from the nipple After sterile preparation of the skin, 1% lidocaine was utilized for local anesthesia. 1% lidocaine with epinephrine was utilized for local anesthesia of the deeper breast tissues. A small skin incision was made with a #11 scalpel blade. ??A 14-gauge vacuum assisted biopsy needle was then advanced through the skin incision to the edge of the lesion of interest at the 11:00 position from an inferolateral approach utilizing sonographic guidance. A total of 3 tissue cores were obtained through the lesion. ??A twirl shaped tissue marker clip was then placed at the biopsy site. Hemostasis was achieved. A sterile bandage and an ice pack were applied. The patient tolerated the procedure well and there was no evidence of immediate complication. The patient was given verbal as well as written post procedural instructions prior to release from the department. ??The tissue cores were submitted to surgical pathology in formalin for histologic analysis. LESION/SITE 1 of 2: Right breast calcifications, central breast The patient was placed in the prone position on the biopsy unit with the RIGHT breast in mediolateral compression and the area of interest was localized and targeted utilizing digital imaging with tomosynthesis and stereotaxis. ??After sterile preparation of the skin, 1% lidocaine was utilized for local anesthesia at the skin puncture site and 2% lidocaine with epinephrine was utilized for deeper local anesthesia/hemostasis about the biopsy site. A small skin incision was made with a #11 scalpel blade. A 9 gauge Brevera vacuum-assisted biopsy needle was then advanced through the skin incision to the level of the calcifications of interest in the central right breast from a medial approach utilizing stereotactic guidance and a total of 8 tissue cores were obtained. The specimen radiograph demonstrates that the calcifications of interest are included within the tissue cores. ??[A SecurMark Mini Cork tissue marker clip was then placed at the biopsy site. The needle was removed and hemostasis was achieved. A sterile bandage and an ice pack were applied. ??The tissue cores were submitted to surgical pathology in formalin for histologic analysis. A two-view RIGHT digital mammogram, including digital breast tomosynthesis (DBT), obtained post procedure demonstrates that the tissue marker clips are in expected position. Leatha Gupta MD US ORDERABLES * US BREAST BILATERAL LTD (12/30/2022 10:38 AM CDT) Anatomical Region Laterality Modality Breast Bilateral Ultrasound 12/30/2022 12:3 0 PM CDT Impressions 12/30/2022 12:44 PM CDT : 1. The area palpable concern in the left upper-outer quadrant is due to a cluster of simple cysts. They have enlarged since prior examination. 2. There is a suspicious hypoechoic mass in the 11:00 position of the right breast. Tissue diagnosis with ultrasound-guided core needle biopsy is recommended. 3. An 11.5 cm group of segmental pleomorphic micro-calcifications is seen in superior aspect of the right breast. Tissue diagnosis targeting the medial aspect of the calcifications with stereotactic biopsy is recommended. 4. An incidental simple cyst is seen in the right 8:30 position as described above. These results have been discussed the patient by Dr. Maddi Landeros. OVERALL FINAL ASSESSMENT: BI-RADS Category 5: Highly Suggestive of Malignancy. Dr. Landeros discussed the above findings and recommendations with the patient. ??She will be scheduled to return to the Breast [facility] for biopsy . > Interpreting Provider: Maddi Landeros MD on 12/30/2022 12:44 PM Narrative 12/30/2022 12:44 PM CDT EXAMINATION: DIGITAL MAMMO BILAT DIAGNOSTIC W DONALD, US BREAST BILATERAL LTD DATE: ??12/30/2022 HISTORY: This 52-year-old with a palpable lump in the upper outer quadrant of the left breast. COMPARISON: 03/17/2022, 12/24/2021, 05/22/2020, 01/05/2019 TECHNIQUE: ??Full field digital mammographic views of BOTH breasts were performed, including computer aided detection (CAD) and BILATERAL digital breast tomosynthesis (DBT). ??Directed ultrasound evaluation of BOTH breasts was performed by a trained helmet coverer and by Dr. Maddi Landeros. BREAST PARENCHYMAL COMPOSITION: ??The breasts are heterogenously dense, which may obscure small masses. MAMMOGRAM FINDINGS: A triangular marker was placed over the area of palpable concern in the left upper outer quadrant. This corresponds to a 4 cm high density ill-defined lobulated mass. Examination of the right breast reveals interval development of a spiculated high density 14 mm mass in the upper outer quadrant approximately 9 to 10 cm from the nipple. Additionally, there is been interval development of segmental pleomorphic calcifications in the superior right breast with an aggregate measurement of 11.5 cm, from near the spiculated mass, crossing midline to the medial breast. A second 13 mm oval partially obscured partially circumscribed mass is seen in the 9:00 position approximately 7 cm from the nipple SONOGRAM FINDINGS:Directed ultrasound examination in the area of palpable concern in the 2:00 position of the left breast 8 cm from the nipple reveals a cluster of anechoic avascular round and oval masses with an aggregate measurement of approximately 3 cm. This correlates nicely with the mammographic finding and is similar in appearance to prior ultrasound examination of 03/17/2022. Examination in the 8:30 position of the right breast 8 cm from the nipple reveals a 13 mm oval anechoic avascular mass which correlates nicely with the mammographic finding. In the 11:00 position 8 cm from nipple there is an irregular 10 mm hypoechoic mass which is antiparallel in orientation and is relatively avascular. It displays a thick echogenic rind. This corresponds to the spiculated area seen on the mammogram. A few subtle scattered Ovi calcifications are also seen near this irregular hypoechoic mass. Leatha Gupta MD US ORDERABLES * (ABNORMAL) MAMMO BILAT DIAGNOSTIC W DONALD (12/30/2022 9:13 AM CDT) Anatomical Region Laterality Modality Breast Bilateral Mammography 12/30/2022 12:3 0 PM CDT Impressions 12/30/2022 12:44 PM CDT : 1. The area palpable concern in the left upper-outer quadrant is due to a cluster of simple cysts. They have enlarged since prior examination. 2. There is a suspicious hypoechoic mass in the 11:00 position of the right breast. Tissue diagnosis with ultrasound-guided core needle biopsy is recommended. 3. An 11.5 cm group of segmental pleomorphic micro-calcifications is seen in superior aspect of the right breast. Tissue diagnosis targeting the medial aspect of the calcifications with stereotactic biopsy is recommended. 4. An incidental simple cyst is seen in the right 8:30 position as described above. These results have been discussed the patient by Dr. Maddi Landeros. OVERALL FINAL ASSESSMENT: BI-RADS Category 5: Highly Suggestive of Malignancy. Dr. Landeros discussed the above findings and recommendations with the patient. ??She will be scheduled to return to the [facility] for biopsy . > Interpreting Provider: Maddi Landeros MD on 12/30/2022 12:44 PM Narrative 12/30/2022 12:44 PM CDT EXAMINATION: DIGITAL MAMMO BILAT DIAGNOSTIC W DONALD, US BREAST BILATERAL LTD DATE: ??12/30/2022 HISTORY: This 52-year-old with a palpable lump in the upper outer quadrant of the left breast. COMPARISON: 03/17/2022, 12/24/2021, 05/22/2020, 01/05/2019 TECHNIQUE: ??Full field digital mammographic views of BOTH breasts were performed, including computer aided detection (CAD) and BILATERAL digital breast tomosynthesis (DBT). ??Directed ultrasound evaluation of BOTH breasts was performed by a trained helmet coverer and by Dr. Maddi Landeros. BREAST PARENCHYMAL COMPOSITION: ??The breasts are heterogenously dense, which may obscure small masses. MAMMOGRAM FINDINGS: A triangular marker was placed over the area of palpable concern in the left upper outer quadrant. This corresponds to a 4 cm high density ill-defined lobulated mass. Examination of the right breast reveals interval development of a spiculated high density 14 mm mass in the upper outer quadrant approximately 9 to 10 cm from the nipple. Additionally, there is been interval development of segmental pleomorphic calcifications in the superior right breast with an aggregate measurement of 11.5 cm, from near the spiculated mass, crossing midline to the medial breast. A second 13 mm oval partially obscured partially circumscribed mass is seen in the 9:00 position approximately 7 cm from the nipple SONOGRAM FINDINGS:Directed ultrasound examination in the area of palpable concern in the 2:00 position of the left breast 8 cm from the nipple reveals a cluster of anechoic avascular round and oval masses with an aggregate measurement of approximately 3 cm. This correlates nicely with the mammographic finding and is similar in appearance to prior ultrasound examination of 03/17/2022. Examination in the 8:30 position of the right breast 8 cm from the nipple reveals a 13 mm oval anechoic avascular mass which correlates nicely with the mammographic finding. In the 11:00 position 8 cm from nipple there is an irregular 10 mm hypoechoic mass which is antiparallel in orientation and is relatively avascular. It displays a thick echogenic rind. This corresponds to the spiculated area seen on the mammogram. A few subtle scattered Ovi calcifications are also seen near this irregular hypoechoic mass. Leatha Gupta MD MAMMO ORDERABLES * US BREAST LEFT LTD (03/17/2022 2:04 PM CDT) Anatomical Region Laterality Modality Breast Left Ultrasound 03/17/2022 1:49 PM CDT Impressions 03/17/2022 2:31 PM CDT IMPRESSION: 1. There is no suspicious finding in the LEFT breast. The area of interest on recent screening mammogram corresponds with a group of simple cyst in the left breast upper outer quadrant. The patient may now resume bilateral annual screening mammography in December,. 2. The exam results and management recommendations were discussed with the patient by Dr. Castelan at the time of study completion. OVERALL FINAL ASSESSMENT: BI-RADS Category 2: Benign. . > Interpreting Provider: Angie Castelan MD on 03/17/2022 2:31 PM Narrative 03/17/2022 2:31 PM CDT EXAMINATION: LEFT UNILATERAL DIGITAL DIAGNOSTIC MAMMOGRAM AND DIGITAL BREAST TOMOSYNTHESIS and LEFT BREAST SONOGRAM HISTORY: 51-year-old woman recalled from screening mammogram performed 12/24/2021. Additional evaluation of possible obscured mass in the left breast upper outer quadrant posterior depth was recommended. COMPARISON: 12/24/2021, 05/22/2020, 01/05/2019, 05/04/2018, 12/31/2017 TECHNIQUE: ?? Full field digital mammographic views of the LEFT breast were performed, including computer aided detection (CAD) and digital breast tomosynthesis (DBT). ??Directed ultrasound evaluation of the LEFT breast was performed. BREAST PARENCHYMAL COMPOSITION: The breasts are heterogenously dense, which may obscure small masses. MAMMOGRAM FINDINGS: In the left breast upper outer quadrant at approximately the 2:00 position, 8-10 cm from the nipple, there is a partially circumscribed partially obscured mass or group of masses measuring 3.6 x 1.8 x 2.9 cm in aggregate on orthogonal spot compression views. There are no associated microcalcifications. There is no associated architectural distortion. The remainder of the left breast is unremarkable. LEFT BREAST SONOGRAM FINDINGS: Targeted ultrasound of the left breast upper outer quadrant was performed by a trained helmet coverer. In the left breast 2:00 position 8 cm from the nipple posterior depth there is a group of simple cysts measuring 2.0 x 1.1 x 2.3 cm in aggregate. ?? Leatha Gupta MD US ORDERABLES * MAMMO LEFT DIAGNOSTIC W DONALD (03/17/2022 1:41 PM CDT) Anatomical Region Laterality Modality Breast Left Mammography 03/17/2022 1:49 PM CDT Impressions 03/17/2022 2:31 PM CDT IMPRESSION: 1. There is no suspicious finding in the LEFT breast. The area of interest on recent screening mammogram corresponds with a group of simple cyst in the left breast upper outer quadrant. The patient may now resume bilateral annual screening mammography in December,. 2. The exam results and management recommendations were discussed with the patient by Dr. Castelan at the time of study completion. OVERALL FINAL ASSESSMENT: BI-RADS Category 2: Benign. . > Interpreting Provider: Angie Castelan MD on 03/17/2022 2:31 PM Narrative 03/17/2022 2:31 PM CDT EXAMINATION: LEFT UNILATERAL DIGITAL DIAGNOSTIC MAMMOGRAM AND DIGITAL BREAST TOMOSYNTHESIS and LEFT BREAST SONOGRAM HISTORY: 51-year-old woman recalled from screening mammogram performed 12/24/2021. Additional evaluation of possible obscured mass in the left breast upper outer quadrant posterior depth was recommended. COMPARISON: 12/24/2021, 05/22/2020, 01/05/2019, 05/04/2018, 12/31/2017 TECHNIQUE: ?? Full field digital mammographic views of the LEFT breast were performed, including computer aided detection (CAD) and digital breast tomosynthesis (DBT). ??Directed ultrasound evaluation of the LEFT breast was performed. BREAST PARENCHYMAL COMPOSITION: The breasts are heterogenously dense, which may obscure small masses. MAMMOGRAM FINDINGS: In the left breast upper outer quadrant at approximately the 2:00 position, 8-10 cm from the nipple, there is a partially circumscribed partially obscured mass or group of masses measuring 3.6 x 1.8 x 2.9 cm in aggregate on orthogonal spot compression views. There are no associated microcalcifications. There is no associated architectural distortion. The remainder of the left breast is unremarkable. LEFT BREAST SONOGRAM FINDINGS: Targeted ultrasound of the left breast upper outer quadrant was performed by a trained helmet coverer. In the left breast 2:00 position 8 cm from the nipple posterior depth there is a group of simple cysts measuring 2.0 x 1.1 x 2.3 cm in aggregate. ?? Leatha Gupta MD MAMMO ORDERABLES * MAMMO BILAT SCREENING W DONALD (12/24/2021 9:30 AM CDT) Anatomical Region Laterality Modality Breast Bilateral Mammography 12/24/2021 9:44 AM CDT Impressions 12/24/2021 10:23 AM CDT Left diagnostic mammogram and possible left breast ultrasound are now recommended. OVERALL FINAL ASSESSMENT: BI-RADS CATEGORY 0: INCOMPLETE: NEED ADDITIONAL IMAGING EVALUATION. *Reading Radiologist: Angie Castelan on 12/24/2021 at 10:23 AM Narrative 12/24/2021 10:23 AM CDT EXAMINATION: BILATERAL DIGITAL SCREENING MAMMOGRAM AND BILATERAL BREAST TOMOSYNTHESIS HISTORY: Screening. COMPARISON: Serial examinations dating back to 12/31/2017 TECHNIQUE: ??BILATERAL digital breast tomosynthesis (DBT) and synthetic 2D digital mammogram images were obtained (bilateral craniocaudal and mediolateral oblique projections) including computer aided detection (CAD.) BREAST PARENCHYMAL COMPOSITION:Category C: The breasts are heterogeneously dense, which may obscure small masses. MAMMOGRAM FINDINGS: There is no suspicious finding in the right breast. There is a questionable obscured mass in the left breast upper outer quadrant posterior depth. Leatha Gupta MD MAMMO ORDERABLES * MAMMO SCREENING DIGITAL IMAGE BILAT G0202 (05/22/2020 12:12 PM SYSTEMS TEST ENGINEER) Only the most recent of2 resultswithin the time period is included. Anatomical Region Laterality Modality Breast Bilateral Mammography 05/22/2020 1:19 PM SYSTEMS TEST ENGINEER Narrative 05/22/2020 1:35 PM SYSTEMS TEST ENGINEER DIGITAL BILATERAL SCREENING MAMMOGRAMS WITH CAD AND 3-D TOMOSYNTHESIS DATE: 05/22/2020 11:51 AM PREVIOUS EXAM DATE: 01/05/2019, 05/04/2018, 12/31/2017. INDICATION: Screening TECHNIQUE: Bilateral craniocaudad (CC) and mediolateral oblique (MLO) views. Images were interpreted with the aid of CAD. 3-D tomosynthesis images were performed. TECHNOLOGIST: Lucía Holman RT(R)(M) TISSUE DENSITY: Heterogeneously dense. This may lower the sensitivity of mammography. ??Please correlate with clinical examination. FINDINGS: There is no discrete abnormality. There is no mass nor microcalcification. There is a fibronodular glandular pattern. ASSESSMENT: (BI-RADS category 2) Benign findings. RECOMMENDATIONS: Continued annual screening mammography. The above findings should be correlated with physical examination. A relatively nonspecific study should not preclude additional evaluation if suspicious findings are present clinically. An [employer] Facility. [facility] utilizes [email or web address] as a reminder system to notify patients of their next recommended mammograms. Edited by Annalise Ford on 05/22/2020 1:25 PM *Reading Radiologist: Monalisa Duncan on 05/22/2020 at 1:35 PM Leatha Gupta MD MAMMO ORDERABLES * MAMMO SCREENING BILATERAL (12/31/2017) Anatomical Region Laterality Modality Breast Mammography Leatha Gupta MD MAMMO ORDERABLES * US BREAST RIGHT COMPLETE (12/21/2016) Anatomical Region Laterality Modality Breast Right Ultrasound Leatha Gupta MD US ORDERABLES * MAMMO DIAG DIRECT DIGITAL IMAGE UNIL RIGHT (12/03/2016) Anatomical Region Laterality Modality Breast Right Mammography Leatha Gupta MD MAMMO ORDERABLES * LIPASE BLOOD (09/07/2013 12:23 PM SYSTEMS TEST ENGINEER) Lipase 147 73 - 393 U/L 09/07/2013 12:47 PM SYSTEMS TEST ENGINEER [facility] Blood BLOOD SPECIMEN / Unknown Lab Venipuncture / Unknown 09/07/2013 12:23 PM SYSTEMS TEST ENGINEER 09/07/2013 12:24 PM SYSTEMS TEST ENGINEER Angeline Olmos MD LAB - CHEMISTRY CHANEL FELIX [facility] [address] [place] [address] * AMYLASE BLOOD (09/07/2013 12:23 PM SYSTEMS TEST ENGINEER) Amylase 49 15 - 115 U/L 09/07/2013 12:47 PM SYSTEMS TEST ENGINEER [facility] Blood BLOOD SPECIMEN / Unknown Lab Venipuncture / Unknown 09/07/2013 12:23 PM SYSTEMS TEST ENGINEER 09/07/2013 12:24 PM SYSTEMS TEST ENGINEER Angeline Olmos MD LAB - CHEMISTRY CHANEL FELIX [facility] [address] [place] [address] Care Teams Bobbin Winder Relationship Specialty Start Date End Date Keisha Pineda PA [address] [place] [id number] PCP - General Physician Dough Catcher 11/15/23 [place] [address] [address] [place] [id number] Surgical Oncologist Surgical Oncology 02/15/23 [place] [id number] [address] [facility] [address] [place] [phone] Order To Delivery Supervisor/Oncologist Hematology and Oncology 02/16/23
--- OUTSIDE RECORDS SUMMARY | 2024-07-02 04:40 | XMS_ITS | Encounter Summary ---
Author Organization [facility] Address [address] [place] [address] Care Team Providers Care Manager Professional Development Name Role Phone Naya Leonard DO Unavailable [phone] Bernardo Lizarraga MD Unavailable [phone] Keisha Pineda Primary Care Pr ovider Reason for Visit * Reason Comments Post-Op EXC chest wall mass Encounter Details Date Type Department Care Team (Late st Contact Info) Description 12/07/2023 2:00 PM CDT Office Visit [facility] - Surgery [address] [place] [id number] Naya Leonard DO [address] [place] [phone] Postop check (Primary Dx) Social History Tobacco Use Types Packs/Day Years Used Date Smoking Tobacco: Never Smokeless Tobacco: Never Tobacco Cessation:Counseling Given: No Alcohol Use Standard Drinks/Week Comments No 0 [...] Sign Reading Time Taken Comments Blood Pressure - - Pulse - - Temperature - - Respiratory Rate - - Oxygen Saturation - - Inhaled Oxygen Concentration - - Weight 77.1 kg (170 lb) 12/07/2023 1:59 PM CDT Height 163.8 cm (5' 4.5 ) 12/07/2023 1:59 PM CDT Body Mass Index 28.73 12/07/2023 1:59 PM CDT documented in this encounter Functional Status Functional [...] this encounter Patient Instructions * Patient Instructions* Coretta Mercado LPN - 12/07/2023 2:00 PM CDT Patient's medications and allergies were reviewed with the patient today. Patient was instructed tocontact primary care physician or ordering provider with any questions regarding medications. documented in this encounter Progress Notes * Jillian Fuentes, RECYCLING ATTENDANT-EDUCATION NURSE - 12/07/2023 2:00 PM CDT Betnia Coy is a 53 year old female who is here for a postoperative visit following Excision of left chest wall 2 cm mass 11/30/2023 Referring physician is Leatha Gupta MD. Reports no surgical pain. Denies any fever, chills, or drainage from surgical site. Exam Incision: Clean and intact, healing well. No drainage or erythema noted. Pathology: Final Diagnosis Left chest wall mass, excision: -- Adipose connective tissue with fat necrosis and foreign body reaction A/P: PO Excision of left chest wall 2 cm mass The patient is doing well, pathology reviewed and questions answered. Avoid trauma to surgical site Call if any concerns; follow up in one year for breast cancer follow up with Dr. Leonard. documented in this encounter Plan of Treatment Upcoming Encounters Date Type Department Care Team (Late st Contact Info) Description 07/19/2024 9:45 AM BRIDGE IRONWORKER HELPER Office Visit [facility] - SIGNAL TIMER [address] [place] [address] Leatha Gupta MD [address] [place] [address] 12/11/2024 9:00 AM CDT Office Visit [facility] - Surgery [address] [facility], [address] [place] [phone] [place] [address] [phone] 12/11/2024 10:40 AM CDT Office Visit [facility] Cancer Care [id number] [place] [address] [address] [place] [address] Bernardo Lizarraga MD [address] [place] [address] [address] [place] [address] documented as of this encounter Visit Diagnoses Diagnosis Postop check- Primary Follow-up examination, following unspecified surgery documented in this encounter Care Teams Manager Professional Development Relationship Specialty Start Date End Date Keisha Pineda PA [address] [place] [phone] PCP - General Physician Vice President Business Development 11/15/23 [place] [address] [phone] Surgical Oncologist Surgical Oncology 02/15/23 [place] [address] [place] [phone] Keypuncher/Oncologist Hematology and Oncology 02/16/23 documented as of this encounter
--- OUTSIDE RECORDS SUMMARY | 2024-07-02 04:40 | XMS_ITS | Encounter Summary ---
Author Organization [facility] Address [address] [place] [address] Care Team Providers Care Kindergartner Name Role Phone Naya Leonard Irving DO Unavailable Bernardo Lizarraga MD Unavailable [phone] Keisha Pineda Primary Care Pr ovider Reason for Visit * Auth/Cert (Routine) Specialty Diagnoses / Procedures Referred By Sherie jacobo Referred To Contact Diagnoses Mass in chest Mass in chest [R22.2] Procedures IN EXC SKIN BENIG 3.1-4CM TRUNK,ARM,LEG EXCISION LESION TRUNK CHEST/AXILLA Referral ID Status Reason Start Date Expiration Date Visits Re quested Visits Authorized [id number] 1 1 Encounter Details Date Type Department Care Team (Late st Contact Info) Description 11/30/2023 11:00 AM CDT Anesthesia Event [facility] - General Surgery [address] [facility], [address] [place] [address] Ricarda Zarate DO [address] [facility] [address] [place] [address] Anesthesia Record Procedure Summary Procedure Name Responsible Anesthesiologist Anesthesia Start Time Anesthesia Stop Time EXCISION LEFT CHEST WALL MASS THREE CENTIMETERS (Left: Chest) Ricarda Zarate DO 11/30/23 1100 11/30/23 1155 Events Date Time Event Comment 11/30/2023 1024 1100 An Start 1100 An Start Data 1115 PT Reassessment 1120 Stop ABX 1130 Timeout Anesthesia part icipated in timeout at the time documented in the record by nursing. 1149 Electnc Sig This record is electronically signed by the providers listed under staff. 1149 an stop data 1149 ANPTO2 1155 An Stop Meds Name Total midazolam 2 mg/2mL injection 2 mg fentaNYL 100 mcg/2mL injection 100 mcg propofol 200 mg/20mL injection 100 mg propofol 1000 mg/100mL infusion 178.02 m g ondansetron 4 mg/2mL injection 4 mg dexamethasone 4 mg/mL injection 4 mg ceFAZolin (Ancef) 2 g in 0.9% NaCl IV 50 mL IVPB 2 g lactated ringers infusion 400 mL * Agents Name Exp. N2O O2 Air N2O * Blood No blood administrations on file. Lines, Drains, and Airways Type Details Placement Removal Peripheral IV Date: 11/30/23; Time: 0950; Orientation: Right, Posterior; Location: Hand; Gauge: 20 G 11/30/23 0950 by Destini Freeman RN 11/30/23 1227 by Lorrie Saleh RN Procedural Site (Incision) 11/30/23; 1131; Left; Chest; 12/01/23; 0622 11/30/23 1131 by Mariaelena Paul RN 12/01/23 0622 by Generic, Auto Release documented in this encounter Social History Tobacco Use Types Packs/Day Years [...] No 06/08/2023 documented as of this encounter Progress Notes * Sheyla Mckeon, BENJA-SENIOR ACCOUNT CLERK - 11/30/2023 11:55 AM CDT ANESTHESIA POSTOP EVALUATION NOTE Procedure: EXCISION LEFT CHEST WALL MASS THREE CENTIMETERS (Left: Chest) Betina Coy is a 53 year old female Patient Vitals for the past 6 hrs: BP Temp Pulse Resp SpO2 Pain Rating Score #1 Pain Scale/Observation 11/30/23 0956 120/69 97.2 ??F (36.2 ??C) 66 17 97 % 0 N Anesthesia Type: MAC Pre-op Diagnosis Codes: * Mass in chest [R22.2] Mental Status: awake, alert, oriented, sufficiently recovered from acute administration of anesthesia to participate in the evaluation and neurologic status has returned to preoperative level Neuro Status: No numbness, tingling or visual disturbances Respiratory Function: natural Cardiac Function: stable Postop Pain: no pain Postop Hydration: adequate Postop Nausea: none Assessment: no apparent anesthetic complications, patient tolerated procedure well and no evidence of recall Patient Disposition: Release from Anesthesia Care NOTABLE EVENTS: No notable events documented. * Ricarda Zarate DO - 11/30/2023 10:23 AM CDT ANESTHESIA PREOPERATIVE EVALUATION NOTE Procedure: EXCISION LEFT CHEST WALL MASS THREE CENTIMETERS (Left: Chest) NPO status: Since Midnight (11/30/2023 9:40 AM) Vitals: Patient Vitals for the past 6 hrs: BP Temp Pulse Resp SpO2 Pain Rating Score #1 11/30/23 0956 120/69 97.2 ??F (36.2 ??C) 66 17 97 % 0 LMP: Patient's last menstrual period was 01/23/2022 (exact date). OB Status: Postmenopausal ANESTHESIA PRE-EVALUATION NOTE The patient is a current non-smoker. Physical Exam: Orientation X3 Airway/Mallampati Score: II Mouth Opening Distance: 3 fingerwidths Neck ROM: full TM Distance: > 3 FB Teeth: normal Heart: normal - S1 S2 Lungs: clear to ausculation bilaterally Review of Systems: History of anesthetic complications: No GERD: No Poor Exercise Tolerance: No ANESTHESIA PLAN ASA Score: 2 NPO Status: No solids since midnight and No liquids within 2 hours Anesthesia Plan: MAC Planned Induction: intravenous Planned Postop Destination: PACU Anesthetic plan was discussed with: patient, spouse Anesthetic Plan discussion was: Consented The patient's procedural Anesthetic Plan was discussed with the anesthesiologist and SENIOR ACCOUNT CLERK. BMI, Height, Weight Tobacco History Estimated body mass index is 28.83 kg/m?? as calculated from the following: Height as of this encounter: 1.638 m (5' 4.5 ). Weight as of this encounter: 77.4 kg (170 lb 9.6 oz). Social History Tobacco Use Smoking Status Never Smokeless Tobacco Never Alcohol History Drug History Social History Substance and Sexual Activity Alcohol Use No Social History Substance and Sexual Activity Drug Use Never Outpatient Medications: Inpatient Medications: Outpatient Medications Marked as Taking for the 11/30/23 encounter (Hospital Encounter) Medication Sig Last Dose Other Take 1 Each by mouth once daily Micro-Rev Immune (mushroom) 11/24/2023 Other Take 1 Each by mouth once daily Cruciferous Complete (Veggie) 11/24/2023 Other Take 1 Each by mouth once daily Adrenal L.F. (adrenal + thyroid function) 11/24/2023 Other Take 1 Each by mouth once daily Cholaplex (cardio health) 11/24/2023 Other Take 1 Each by mouth once daily Solray-D+Vit K2 (spray) 11/24/2023 Other Take 1 Each by mouth once daily Soybean Lecithin (cognitive function) 11/24/2023 tamoxifen Take 1 (one) tablet by mouth once daily Reasons: Cancer of the Breast 11/29/2023 Current Facility-Administered Medications Medication Dose Last Admin 0.9% NaCl 3 mL And 0.9% NaCl 1-10 mL ceFAZolin 2 g lactated ringers New Bag at 11/30/23 0949 lidocaine 0.2 mL 0.2 mL at 11/30/23 0949 Allergies: No Known Allergies Relevant Problems Problem List: Patient Active Problem List Diagnosis Date Noted Invasive ductal carcinoma of right breast (HCC) 04/19/2023 Priority: Not Prioritized Postoperative seroma of subcutaneous tissue after non-dermatologic procedure 02/25/2023 Priority: Not Prioritized COVID-19 07/09/2021 Priority: Not Prioritized Hypercholesteremia 01/31/2019 Priority: Not Prioritized PCOS (polycystic ovarian syndrome) Priority: Not Prioritized Medical History: Past Medical History: Diagnosis Date Breast CA (HCC) Right COVID 06/2021 Elevated cholesterol Hypothyroid PCOS (polycystic ovarian syndrome) Surgical History: Past Surgical History: Procedure Laterality Date Breast Reconstruction N/A 06/08/2023 N/A; TOTAL AUTOLOGOUS BILATERAL BREAST RECONSTRUCTION Bunionectomy Bilateral COLONOSCOPY N/A 09/27/2023 N/A; COLONOSCOPY SCREEN EXCISION/ DESTRUCTION TUMOR/MASS Bilateral 02/25/2023 Bilateral; Incision and drainage bilateral chest wall seroma and placement Shalom drains Hemorrhoidectomy MAMMO STEREOTACTIC RIGHT BIOPSY Right 01/06/2023 MAMMO STEREOTACTIC RIGHT BIOPSY 01/06/2023 [facility] NEO MASTECTOMY, SIMPLE Bilateral 02/18/2023 Bilateral; RIGHT SIMPLE MASTECTOMY, RIGHT SENTINEL LYMPH NODE BX, LEFT PROPHYLACTIC MASTECTOMY NEEDLE BIOPSY Right right breast 2 cyst aspirations OTHER SURGERY breast cyst aspiration PLASTIC SURGERY PROCEDURE N/A 06/08/2023 N/A; FAT GRAFTING FROM ADBOMEN AND LOCAL TISSUE REARRANGEMENT US BREAST RIGHT BIOPSY Right 01/06/2023 US BREAST RIGHT BIOPSY 01/06/2023 [facility] US CHIEF PORT DIRECTOR Status: Patient's last menstrual period was 01/23/2022 (exact date). Postmenopausal OB History Para Term AB Living 3 3 3 0 0 3 SAB IAB Ectopic Multiple Live Births 0 0 0 0 3 # Outcome Date GA Lbr Stevan/2nd Weight Sex Delivery Anes PTL Lv 3 Term 2 Term 1 Term Covid Vaccine: Lab Results: Recent Labs Component Name 11/30/23 0932 HCGURINE Negative No results found for requested labs within last 120 days. No results found for requested labs within last 120 days. documented in this encounter Miscellaneous Notes * Anesthesia Transfer of Care - Sheyla Mckeon APRN-SENIOR ACCOUNT CLERK - 11/30/2023 11:54 AM CDT ANESTHESIA TRANSFER OF CARE NOTE Today's Date: 11/30/2023 Date of : 1970 Patient: Betina Coy Procedure(s): EXCISION LEFT CHEST WALL MASS THREE CENTIMETERS Surgeon(s): Primary: Naya Leonard DO Preop Diagnosis: Pre-op Diagnois: * Mass in chest [R22.2] Pre-op Meds (From admission, onward) Start Stop Status Route Frequency Ordered 11/30/23 0920 0.9% NaCl injection 1-10 mL See Hyperspace for full Linked Orders Report. -- Dispensed IK PRN 11/30/23 0920 11/30/23 1142 0.9% NaCl injection 1-10 mL 11/29/24 1141 Dispensed IK PRN 11/30/23 1142 11/30/23 0930 0.9% NaCl injection 3 mL See Hyperspace for full Linked Orders Report. -- Dispensed IK EVERY 8 HOURS 11/30/23 0920 11/30/23 0930 acetaminophen (Tylenol) tablet 1,000 mg 11/30/23 0945 Completed PO PRE-OP ONCE 11/30/23 0920 11/30/23 0920 ceFAZolin (Ancef) 2 g in 0.9% NaCl IV 50 mL IVPB -- Verified IV PRE-OP MULTIPLE 11/30/23 0920 11/30/23 1120 dexAMETHasone (Decadron) injection -- Sent IV PRN 11/30/23 1123 11/30/23 1142 diphenhydrAMINE (Benadryl) injection 25 mg -- Verified IV ONCE PRN 11/30/23 1142 11/30/23 0930 famotidine (Pepcid) injection 20 mg 11/30/23 0958 Completed IV PRE-OP ONCE 11/30/23 0920 11/30/23 1105 fentaNYL (PF) (Sublimaze) injection -- Sent IV PRN 11/30/23 1123 11/30/23 1142 fentaNYL (PF) (Sublimaze) injection 50 mcg -- Verified IV EVERY 10 MIN PRN 11/30/23 1142 11/30/23 1142 fentaNYL (PF) (Sublimaze) injection 50 mcg -- Verified IV EVERY 10 MIN PRN 11/30/23 1142 11/30/23 1142 hydrALAZINE (Apresoline) injection 5 mg -- Verified IV POST-OP MULTIPLE 11/30/23 1142 11/30/23 1142 HYDROcodone-acetaminophen ([place]) 5-325 MG tablet 1 tablet -- Verified PO ONCE PRN 11/30/23 1142 11/30/23 1142 HYDROmorphone (Dilaudid) injection 0.25 mg -- Verified IV EVERY 10 MIN PRN 11/30/23 1142 11/30/23 1142 labetalol (Normodyne; Trandate) injection 5 mg -- Verified IV POST-OP MULTIPLE 11/30/23 1142 11/30/23 0930 lactated ringers infusion -- Dispensed IV PRE-OP CONTINUOUS 11/30/23 0920 11/30/23 1145 lactated ringers infusion -- Dispensed IV CONTINUOUS 11/30/23 1142 11/30/23 0920 lidocaine PF (Xylocaine MPF) 1 % injection 0.2 mL -- Verified INFILTRATION PRE-OP MULTIPLE 11/30/23 0920 11/30/23 1105 midazolam (Versed) injection -- Sent IV PRN 11/30/23 1123 11/30/23 1142 naloxone (Narcan) injection 0.04 mg -- Verified IV POST-OP MULTIPLE 11/30/23 1142 11/30/23 1120 ondansetron (Zofran) injection -- Sent IV PRN 11/30/23 1123 11/30/23 1142 ondansetron (Zofran) injection 4 mg -- Verified IV ONCE PRN 11/30/23 1142 11/30/23 1142 prochlorperazine (Compazine) injection 10 mg 11/29/24 1141 Verified IV ONCE PRN 11/30/23 1142 11/30/23 1117 propofol (Diprivan) infusion -- Sent IV CONTINUOUS PRN 11/30/23 1123 11/30/23 1117 propofol (Diprivan) injection -- Sent IV PRN 11/30/23 1123 Post-op Diagnosis: * Mass in chest [R22.2] . No Known Allergies Vitals: Patient Vitals for the past 3 hrs: BP Temp Pulse Resp SpO2 Pain Rating Score #1 11/30/23 0956 120/69 97.2 ??F (36.2 ??C) 66 17 97 % 0 Lines, Drains, and Airways Type Details Placement Removal Peripheral IV Date: 11/30/23; Time: 0950; Orientation: Right, Posterior; Location: Hand; Gauge: 20 G; Locals: Injectable 11/30/23 0950 by Destini Freeman RN Intraprocedure I/O Totals Intake lactated ringers infusion 400.00 mL Total Intake 400 mL Patient Transfer Location: PACU Transport Airway: spontaneous respirations Complications: None Handoff Given? Yes Checklist or Protocol - The lynn handoff elements that must be included in the transfer of care checklist include: 1. Identification of patient. 2. Identification of responsible practitioner (PACU nurse or advanced practitioner). 3. Discussion of pertinent medical history. 4. Discussion of the surgical/procedure course (procedure, reason for surgery, procedure performed). 5. Intraoperative anesthetic management and issue/concerns. 6. Expectations/Plans for the early post-procedure period. 7. Opportunity for questions and acknowledgement of understanding of report from the receiving PACUteam. JULIO CESAR Roca documented in this encounter Plan of Treatment Upcoming Encounters Date Type Department Care Team (Late st Contact Info) Description 07/19/2024 9:45 AM BID WRITER Office Visit [facility] - CHIEF PORT DIRECTOR [address] [place] [phone] Leatha Gupta MD [address] [place] [address] 12/11/2024 9:00 AM CDT Office Visit [facility] - Surgery [address] [facility], [address] [place] [address] [place] [address] [place] [address] 12/11/2024 10:40 AM CDT Office Visit [facility] [id number] [place] [address] [address] [place] [address] [place] [address] [place] [phone] documented as of this encounter Visit Diagnoses Not on filedocumented in this encounter Administered Medications Inactive Administered Medications - up to 3 most recent administrations Medication Order MAR Action Action Date Dose Rate Site ceFAZolin (Ancef) 2 g in 0.9% NaCl IV 50 mL IVPB 2 g, at 100 mL/hr, Intravenous, PRE-OP MULTIPLE, Starting on Wed11/30/23 at 0920, Until Wed12/01/23 at 0122, Administer 30 minutes prior to surgical incision., Indication for anti-infective therapy: Surgical prophylaxis, Pre-op $ New Bag/Syringe 11/30/2023 11:00 AM CDT 2 g dexAMETHasone (Decadron) injection Intravenous, PRN, Starting on Wed11/30/23 at 1120, Until Wed11/30/23 at 1155, Anesthesia Intra-op $ Given 11/30/2023 11:20 AM CDT 4 mg fentaNYL (PF) (Sublimaze) injection Intravenous, PRN, Starting on Wed11/30/23 at 1105, Until Wed11/30/23 at 1155, Anesthesia Intra-op $ Given 11/30/2023 11:30 AM CDT 50 mcg $ Given 11/30/2023 11:05 AM CDT 50 mcg lactated ringers infusion at 20 mL/hr, Intravenous, PRE-OP CONTINUOUS, Starting on Wed11/30/23 at 0930, Until Wed12/01/23 at 0122, Pre-op Restarted 11/30/2023 11:48 AM CDT $ New Bag/Syringe 11/30/2023 9:49 AM CDT 20 mL/ hr midazolam (Versed) injection Intravenous, PRN, Starting on Wed11/30/23 at 1105, Until Wed11/30/23 at 1155, Anesthesia Intra-op $ Given 11/30/2023 11:05 AM CDT 2 mg ondansetron (Zofran) injection Intravenous, PRN, Starting on Wed11/30/23 at 1120, Until Wed11/30/23 at 1155, Anesthesia Intra-op $ Given 11/30/2023 11:20 AM CDT 4 mg propofol (Diprivan) infusion Intravenous, CONTINUOUS PRN, Starting on Wed11/30/23 at 1117, Until Wed11/30/23 at 1155, Anesthesia Intra-op $ New Bag/Syringe 11/30/2023 11:17 AM CDT 100 mcg/kg/min 46.44 mL/hr propofol (Diprivan) injection Intravenous, PRN, Starting on Wed11/30/23 at 1117, Until Wed11/30/23 at 1155, Anesthesia Intra-op $ Given 11/30/2023 11:17 AM CDT 100 mg documented in this encounter Care Teams Kindergartner Relationship Specialty Start Date End Date Keisha Pineda PA [address] [place] [address] PCP - General Physician Central Office Associate 11/15/23 [place] [address] [address] [facility] [place] [id number] Surgical Oncologist Surgical Oncology 02/15/23 [place] [address] [address] [facility] [place] [phone] Bonderite Operator/Oncologist Hematology and Oncology 02/16/23 documented as of this encounter
--- OUTSIDE RECORDS SUMMARY | 2024-07-02 04:40 | XMS_ITS | Encounter Summary ---
Author Organization [facility] Address [address] [facility] [address] Care Team Providers Care Tuber Machine Cutter Name Role Phone Naya Leonard DO Unavailable [phone] Bernardo Lizarraga MD Unavailable [phone] Keisha Pineda Primary Care Pr ovider Reason for Visit * Reason Onset Date Comments Med Question 06/05/2024 Encounter Details Date Type Department Care Team (Late st Contact Info) Description 06/05/2024 Telephone [facility] - Surgery [address] [place] [phone] [place] [address] [phone] Med Question Social History Tobacco Use Types Packs/Day Years [...] No 06/08/2023 documented as of this encounter Miscellaneous Notes * Telephone Encounter - Coretta Mercado LPN - 06/05/2024 12:29 PM HAIRSPRING I INSPECTOR Returned call to pt and made her an appt with Dr. Leonard SPRING I INSPECTOR * Telephone Encounter - Maria Teresa Guzman - 06/05/2024 9:06 AM CST Pt called back said she left a message on Wednesday and that her records from [place] were going to be reviewed. She updated her condition she was seen in [facility] over the weekend so would like those records looked at also patient said she was very sick. [phone] SPRING I INSPECTOR documented in this encounter Plan of Treatment Upcoming Encounters Date Type Department Care Team (Late st Contact Info) Description 07/19/2024 9:45 AM HAIRSPRING I INSPECTOR Office Visit [facility] - PIT WORKER POWER SHOVEL [address] [place] [address] Leatha Gupta MD [address] [place] [address] 12/11/2024 9:00 AM CDT Office Visit [facility] - Surgery [address] [place] [address], [address] [place] [phone] [place] [address] [facility] [address] [place] [phone] 12/11/2024 10:40 AM CDT Office Visit [facility] [address] [facility] [address] [place] [phone] [place] [address] [facility] [address] [place] [address] documented as of this encounter Visit Diagnoses Not on filedocumented in this encounter Care Teams Tuber Machine Cutter Relationship Specialty Start Date End Date Keisha Pineda PA [address] [place] [address] PCP - General Physician Underpresser Hand 11/15/23 [place] [address] [place] [phone] Surgical Oncologist Surgical Oncology 02/15/23 [place] [address] [facility] [address] [facility] [address] [place] [phone] Fabrics And Material Cutter/Oncologist Hematology and Oncology 02/16/23 documented as of this encounter
--- OUTSIDE RECORDS SUMMARY | 2024-07-02 04:40 | XMS_ITS | Encounter Summary ---
Author Organization [facility] Address [address] [place] [address] Care Team Providers Care Spooling Operator Name Role Phone Naya Leonard Irving DO Unavailable [phone] Bernardo Lizarraga MD Unavailable [phone] Keisha Pineda Primary Care Pr ovider Reason for Visit * Reason Comments Pain Abdominal Pt arrives to the ED for c/o abdominal pain and vomiting. Pt states that she was discharges from [facility] on Wednesday for diverticulitis and the pain and symptoms are becoming worse. Encounter Details Date Type Department Care Team (Late st Contact Info) Description 06/04/2024 11:36 AM AIRPLANE TUBE BUILDER - 06/04/2024 4:23 PM AIRPLANE TUBE BUILDER Emergency ER at [address] [address] Terra Wagner MD [address] [place] [address] [place] [id number] Lower abdominal pain (Primary Dx); Diverticulitis of colon; Calculus of gallbladder without cholecystitis without obstruction Discharge Disposition: Home or Self Care Social History Tobacco Use Types Packs/Day Years [...] Sign Reading Time Taken Comments Blood Pressure 124/82 06/04/2024 1:44 PM AIRPLANE TUBE BUILDER Pulse 63 06/04/2024 4:05 PM AIRPLANE TUBE BUILDER Temperature 36.6 ??C (97.9 ??F) 06/04/2024 1:[address] Respiratory Rate 12 06/04/2024 4:05 PM AIRPLANE TUBE BUILDER Oxygen Saturation 95% 06/04/2024 1:44 PM AIRPLANE TUBE BUILDER Inhaled Oxygen Concentration - - Weight - - Height - - Body Mass Index - - documented in this encounter Functional Status Functional [...] No 06/08/2023 documented as of this encounter Discharge Instructions * Discharge Instructions* Terra Wagner MD - 06/04/2024 4:03 PM AIRPLANE TUBE BUILDER You were seen in the ER for abdominal pain. Continue taking your Augmentin. Follow up with your general surgeon. Return to the ER if you have any new or worrisome symptoms. LANE TUBE BUILDER documented in this encounter Medications at Time of Discharge Medication Sig Dispensed Refills Start Date End Date tamoxifen (Nolvadex) 20 MG tabletIndications:Invasiv e ductal carcinoma of right breast (HCC) TAKE 1 TABLET BY MOUTH DAILY FOR BREAST CANCER 90 tablet 2 03/15/2024 documented as of this encounter ED Notes * Issa Klein RN - 06/04/2024 4:22 PM CST Discharge instructions and prescriptions reviewed with patient. All questions answered. Pt AOx4. Vital signs per flowsheet. Pt ambulated out of ED with steady gait with belongings. No signs of distress noted. LANE TUBE BUILDER * Terra Wagner MD - 06/04/2024 3:40 PM CST I reviewed: Pain Abdominal (Pt arrives to the ED for c/o abdominal pain and vomiting. Pt states that she was discharges from [facility] on Wednesday for diverticulitis and the pain and symptoms are becoming worse. ) History: Betina Coy is a 53 year old female with past medical history of breast cancer and diverticulosis presenting to the ED with abdominal pain after she was recently discharged from [facility] after being treated with IV antibiotics for diverticulitis. Patient was sent home with Augmentin.She states she still has residual abdominal pain and has really been feeling significant nausea. She does tell me that she has been feeling nauseous for about 3 months. She denies any fevers, chills,sick contacts. Past Medical History: Diagnosis Date Breast CA (HCC) Right COVID 06/2021 Elevated cholesterol Hypothyroid PCOS (polycystic ovarian syndrome) Past Surgical History: Procedure Laterality Date Breast Reconstruction N/A 06/08/2023 N/A; TOTAL AUTOLOGOUS BILATERAL BREAST RECONSTRUCTION Bunionectomy Bilateral COLONOSCOPY N/A 09/27/2023 N/A; COLONOSCOPY SCREEN EXCISION/ DESTRUCTION TUMOR/MASS Bilateral 02/25/2023 Bilateral; Incision and drainage bilateral chest wall seroma and placement Shalom drains EXCISION/ DESTRUCTION TUMOR/MASS Left 11/30/2023 EXCISION LEFT CHEST WALL MASS THREE CENTIMETERS - L EXCISION/DESTRUCTION TISSUE/LESION Left 11/30/2023 Left; EXCISION LEFT CHEST WALL MASS THREE CENTIMETERS Hemorrhoidectomy MAMMO STEREOTACTIC RIGHT BIOPSY Right 01/06/2023 MAMMO STEREOTACTIC RIGHT BIOPSY 01/06/2023 [facility] NEO MASTECTOMY, SIMPLE Bilateral 02/18/2023 Bilateral; RIGHT SIMPLE MASTECTOMY, RIGHT SENTINEL LYMPH NODE BX, LEFT PROPHYLACTIC MASTECTOMY NEEDLE BIOPSY Right 10'18 right breast 2 cyst aspirations OTHER SURGERY breast cyst aspiration PLASTIC SURGERY PROCEDURE N/A 06/08/2023 N/A; FAT GRAFTING FROM ADBOMEN AND LOCAL TISSUE REARRANGEMENT US BREAST RIGHT BIOPSY Right 01/06/2023 US BREAST RIGHT BIOPSY 01/06/2023 [facility] US Current Facility-Administered Medications Medication Dose Route Frequency Provider Last Rate Last Admin iopamidol (Isovue 370) 76 % contrast Intravenous Contrast - Once Carey Lemus APRN-CONSULTING PROPERTY MANAGER 80 mL at 06/04/24 1408 Current Outpatient Medications Medication Sig Dispense Refill tamoxifen (Nolvadex) 20 MG tablet TAKE 1 TABLET BY MOUTH DAILY FOR BREAST CANCER 90 tablet 2 No Known Allergies Social History Socioeconomic History Marital status: Tobacco Use Smoking status: Never Smokeless tobacco: Never Vaping Use Vaping status: Never Used Substance and Sexual Activity Alcohol use: No Drug use: Yes Types: Marijuana Comment: gummies at bedtime Sexual activity: Yes Family History Problem Relation Name Age of Onset Other Mother breast cyst Cancer - Breast Paternal Grandmother Exam: BP 124/82 (BP Location: Left arm, Patient Position: Sitting) Pulse 58 Temp 97.9 ??F (36.6 ??C) (Oral) Resp 14 SpO2 95% Appearance: NAD Eyes: eye lids/eyes grossly symmetric, no conjunctival injection, anicteric sclerae ENT: external ears clear and symmetric, mucosa moist Head/Neck: NCAT, neck supple Lungs: non-labored effort, CTAB, no stridor Cardiovascular: regular rate, regular rhythm, no murmurs, no gallops, no rubs, no JVD Abdomen: soft, no tenderness, no palpable mass, no guarding, no rebound Musculo-skeletal: no gross deformity Skin: warm, dry Neurological: Alert and oriented. Pupils equal and round, EOMI, no facial asymmetry, no slurred speech, LAURENT Psych: appropriate MDM: Betina Coy is a 53 year old female who presents with abdominal pain after recently being diagnosed with diverticulitis. On examination patient is overall well-appearing. She has mild abdominalpain in her lower suprapubic area. She does have some right upper quadrant tenderness to palpation as well. Patient's labs did not show any acute findings. Her CT scan shows possible residual diverticulitis that is not severe. She is already on proper treatment for this with Augmentin. I believe her nausea might be due to her cholelithiasis. She has a plan to talk to her surgeon tomorrow regarding this. At time of discharge patient is hemodynamically stable and plans to follow up with her surgeon. DDx considered: Cholelithiasis, diverticulitis, peritonitis, abscess External note(s) reviewed: None available Independent historian(s) assessed: at bedside ECG: N/A I ordered and reviewed: Medications iopamidol (Isovue 370) 76 % contrast (80 mL Intravenous $ Given - Contrast 06/04/24 1408) ondansetron (Zofran) injection 4 mg (4 mg Intravenous $ Given 06/04/24 1325) morphine injection 2 mg (2 mg Intravenous $ Given 06/04/24 1325) 0.9% NaCl IV bolus (0 mL Intravenous Stopped 06/04/24 1552) Labs Reviewed COMPREHENSIVE METABOLIC PANEL - Abnormal; Notable for the following components: Result Value Chloride 108 (*) Protein Total 8.7 (*) eGFR by CKD-EPI 81 (*) All other components within normal limits CBC W AUTO DIFFERENTIAL - Normal LACTIC ACID BLOOD REFLEX TO REPEAT - Normal HCG BLOOD QUALITATIVE - Normal Narrative: Specimens containing human anti-mouse antibodies may exhibit false positive or false negative results. If qualitative interpretation is inconsistent with clinical evaluation, consider confirmation byan alternative hCG method. CT ABDOMEN PELVIS W CONTRAST Result Date: 06/04/2024 IMPRESSION: 1.Bilateral ovarian follicle/cysts, the largest is seen on the right it measures up to 2.9 cm in diameter. 2.Mild colonic diverticulosis with questionable inflammatory changes of the sigmoid colon which could suggest acute diverticulitis. No gross evidence of perforation. 3.Cholelithiasis. 4.Grade 1 anterolisthesis of L4 on L5 with likely associated moderate spinal canal stenosis. MRIcould provide further evaluation if desired. > Interpreting Provider: Felipe Alicea MD on 06/04/2024 2:55 PM Clinical Impressions as of 06/04/24 1604 Lower abdominal pain Diverticulitis of colon Calculus of gallbladder without cholecystitis without obstruction Dx/Tx significantly limited by social determinants of health: N/A and none The patient was discharged. ED work-up and anticipatory guidance discussed with the patient. The patient was instructed to return to the ED if symptoms worsen, change, or fail to resolve as anticipated. Additional return precautions and follow-up instruction provided. Written discharge instructionswere provided. Keisha Pineda PA [address] [facility] [address] [place] [address] [address] [place] [address] Please follow up with your general surgeon as discussed This note was created using Dictation software, Due to voice recognition software, sound alike and misspelled words may be contained in the documentation. LANE TUBE BUILDER * Carey Lemus APRN-CNP - 06/04/2024 2:43 PM CST Bed: 5 Expected date: Expected time: Means of arrival: Comments: Anneliese LANE TUBE BUILDER * Carey Lemus APRN-CNP - 06/04/2024 12:52 PM CST RME Note CC: Pain Abdominal (Pt arrives to the ED for c/o abdominal pain and vomiting. Pt states that she was discharges from [facility] on Wednesday for diverticulitis and the pain and symptoms are becoming worse. ) Provider in Triage HPI: Betina Coy is a 53 year old female Past Medical History: Diagnosis Date Breast CA (HCC) Right COVID 06/2021 Elevated cholesterol Hypothyroid PCOS (polycystic ovarian syndrome) who presents with recent discharge from [facility] on Wednesday and is currently on Augmentin. Was admitted to the hospital for diverticulitis with abscess but abscess was not drained. They did IV antibiotics and hope was no drainage needed. States she is progressively worsened since getting out hospital with pain and sickness. Her surgeon is at [facility] and did request medical records from [facility] but so far has not received them. Review of Systems: Primary System Noted in HPI Constitutional: No fevers or chills GI: Abdominal pain Psychiatric: No mood changes All other ROS negative Limited Chart History: Past Medical History: Diagnosis Date Breast CA (HCC) Right COVID 06/2021 Elevated cholesterol Hypothyroid PCOS (polycystic ovarian syndrome) Past Surgical History: Procedure Laterality Date Breast Reconstruction N/A 06/08/2023 N/A; TOTAL AUTOLOGOUS BILATERAL BREAST RECONSTRUCTION Bunionectomy Bilateral COLONOSCOPY N/A 09/27/2023 N/A; COLONOSCOPY SCREEN EXCISION/ DESTRUCTION TUMOR/MASS Bilateral 02/25/2023 Bilateral; Incision and drainage bilateral chest wall seroma and placement Shalom drains EXCISION/ DESTRUCTION TUMOR/MASS Left 11/30/2023 EXCISION LEFT CHEST WALL MASS THREE CENTIMETERS - L EXCISION/DESTRUCTION TISSUE/LESION Left 11/30/2023 Left; EXCISION LEFT CHEST WALL MASS THREE CENTIMETERS Hemorrhoidectomy MAMMO STEREOTACTIC RIGHT BIOPSY Right 01/06/2023 [...] RIGHT BIOPSY 01/06/2023 [facility] US Current Facility-Administered Medications Medication Dose Route Frequency Provider Last Rate Last Admin morphine injection 2 mg 2 mg Intravenous Now Caryn Naidu MD ondansetron (Zofran) injection 4 mg 4 mg Intravenous Now Caryn Naidu MD Current Outpatient Medications Medication Sig Dispense Refill tamoxifen (Nolvadex) 20 MG tablet TAKE 1 TABLET BY MOUTH DAILY FOR BREAST CANCER 90 tablet 2 No Known Allergies PCP: ESTRELLA Lyons (Above may be pending completion) VS: BP 120/72 Pulse 72 Temp 97.9 ??F (36.6 ??C) (Oral) Resp 20 SpO2 97% Pertinent Physical Findings: Constitutional: vitals WNL, WDWN Head: Head normocephalic, atraumatic Eyes: conjunctiva clear ENT: no rhinorrhea Neck: neck supple, no nuchal rigidity Resp: respirations even and unlabored, lungs clear bilaterally CV: Heart RRR, no m/c/r/g Abd: nondistended Skin: warm, dry; no obvious rash Psych: Pt is alert and oriented x3 w good recall and normal affect MDM: I have reviewed all lab and imaging resulted ordered during this visit and available at the time ofthis note. Triage notes and available nursing notes reviewed. Previous medical record reviewed whenavailable. Management options include but not limited to: physical exam, laboratory testing, discussion with other providers. Plan: Labs, imaging, meds LANE TUBE BUILDER documented in this encounter Miscellaneous Notes * Clinical References AVS - Terra Wagner MD - 06/04/2024 4:03 PM AIRPLANE TUBE BUILDER Images from the original note were not included. [id number] Understanding Diverticulosis and Diverticulitis The colon (large intestine) is the last part of the digestive tract. It absorbs water from stool and changes it from a liquid to a solid. In some people, small pouches called diverticula can form in the colon wall. This is called diverticulosis. It's very common as people get older. The pouches canbecome inflamed and infected. If this happens, it becomes a more severe problem called diverticulitis. These problems can be painful. But they may be managed with treatment. Pouches or diverticula usually occur in the lower part of the colon called the sigmoid. Diverticulitis occurs when the pouches become infected or inflamed. Managing your condition Your healthcare provider may prescribe diet changes or medicines. You might need surgery if your problem is severe. Certain medicines can help soften and bulk up stool, which makes bowel movements easier. Available in pill, powder, and wafer form, examples of these medicines include: ?? Psyllium ?? Methylcellulose ?? Polycarbophil If you have diverticulosis Follow this treatment advice: ?? Make changes to your diet. This is often all that's needed to control symptoms. The main changesare adding fiber and drinking more water. Fiber absorbs water as it travels through your colon. This helps your stool stay soft and move smoothly. Water helps with this process. ?? If needed, you may be told to take [id number] stool softeners. ?? To help ease pain, take antispasmodic medicines as prescribed. ?? Watch for changes in your bowel movements. Tell your healthcare provider if you notice any changes. ?? Begin an exercise program. Ask your healthcare provider how to get started. ?? Get plenty of rest and sleep. If you have diverticulitis Treatment depends on how bad your symptoms are. They include: ?? For mild symptoms. You may be put on a liquid diet for a short time. Antibiotic medicine may be prescribed. If these two steps ease your symptoms, you may then be prescribed a high-fiber diet. If you still have symptoms, your healthcare provider will discuss more treatment options with you. ?? For severe symptoms. You may need to be in the hospital. There, you can be given IV (intravenous) antibiotics and fluids. You'll be put on a low-fiber or liquid diet. You may need surgery if severe symptoms aren't eased by medical treatment, or if the diverticula have burst (ruptured). [place] to colon health Help keep your colon healthy with these lifestyle tips: ?? Eat a healthy diet. Include plenty of high-fiber fruits, vegetables, and whole grains. ?? Drink plenty of liquids such as water and juice. ?? Keep a healthy lifestyle. Do regular exercise, manage your stress, and get enough rest and sleep. Last Reviewed Date: 2023 00:00:00 ?? [id number] [employer]. All rights reserved. This information is not intended as a substitute for professional medical care. Always follow your healthcare professional's instructions. LANE TUBE BUILDER * Clinical References AVS - Terra Wagner MD - 06/04/2024 4:03 PM AIRPLANE TUBE BUILDER Images from the original note were not included. [id number] What Are Gallstones? The gallbladder stores bile, a fluid made by the liver. Bile helps digest fats in the foods you eat. Gallstones form when certain substances in the bile crystallize and become solid. In some cases, the stones don?t cause any symptoms. In others, they irritate the garcia of the gallbladder. More serious problems can occur if stones move into nearby ducts (such as the common bile duct) and cause blockages. This can block the flow of bile and lead to pain, nausea, and infection. Common symptoms Gallbladder problems can cause painful attacks, often after a meal. Some people have only one attack. Others have many. Common symptoms include: ?? Severe, steady pain or aching in the upper right or middle belly (abdomen), back, or right shoulder blade. This can last from 30 minutes to several hours. ?? A dull ache under the ribs or breastbone ?? Upset stomach (nausea) or vomiting ?? A buildup of too much bile in the blood. This causes yellowing of the skin and eyes, dark urine,and itching (jaundice). Call your healthcare provider right away if this occurs. Risk factors for gallstones You are more at risk for gallstones if you: ?? Are a woman ?? Are obese ?? Have a family history ?? Are older (the risk goes up with age) ?? Have a history of very fast (rapid) weight loss, or weight gain ?? Have certain intestinal diseases, such as Crohn's disease ?? Have certain blood diseases, such as sickle cell anemia ?? Have a family background that includes [place] Americans or [place] Americans Diagnosis Ultrasound is often used to look at the gallbladder and measure the size and exact location of the gallstones. Blood tests are used to measure liver enzymes and bilirubin. Both of these may be high if the gallstones are blocking bile flow or irritating the liver. Treating gallstones If your stones aren't causing symptoms, you may choose to delay treatment. But if you've had one ormore painful attacks, your healthcare provider will likely advise removing your gallbladder. This prevents more stones from forming and causing attacks. It also helps prevent problems, such as stonespassing into the ducts and causing blockage, infection, or pancreatitis. After the gallbladder is removed, your liver will still make bile to aid digestion. If you're Hormone changes during can make bile more likely to form stones. If your gallbladder needs to be removed, your healthcare provider will talk with you about the timing for surgery. In some cases, it can be delayed until after childbirth. In others, you may have surgery during . This helps protect you and your baby?s health. Last Reviewed Date: 2023 00:00:00 ?? [id number] [employer]. All rights reserved. This information is not intended as a substitute for professional medical care. Always follow your healthcare professional's instructions. LANE TUBE BUILDER documented in this encounter Plan of Treatment Upcoming Encounters Date Type Department Care Team (Late st Contact Info) Description 07/19/2024 9:45 AM AIRPLANE TUBE BUILDER Office Visit [facility] - MANAGER INSURANCE [address] [facility] [place] [address] Leatha Gupta MD [address] [place] [address] 12/11/2024 9:00 AM CDT Office Visit [facility] - Surgery [address] [place] [address] [place] [address] [address] [facility] [facility] [address] [place] [address] 12/11/2024 10:40 AM CDT Office Visit [facility] [id number] [place] [address] [address] [place] [address] [place] [address] [place] [address] documented as of this encounter Procedures Procedure Name Priority Date/Time Associated Diagnosis Comments CT ABDOMEN PELVIS W CONTRAST STAT 06/04/2024 2:14 PM AIRPLANE TUBE BUILDER Lower abdominal pain LACTIC ACID BLOOD REFLEX TO REPEAT STAT 06/04/2024 1:20 PM AIRPLANE TUBE BUILDER CBC W AUTO DIFFERENTIAL STAT 06/04/2024 1:20 PM AIRPLANE TUBE BUILDER COMPREHENSIVE METABOLIC PANEL STAT 06/04/2024 1:20 PM AIRPLANE TUBE BUILDER HCG BLOOD QUALITATIVE STAT 06/04/2024 1:20 PM AIRPLANE TUBE BUILDER documented in this encounter Results * CT ABDOMEN PELVIS W CONTRAST (06/04/2024 2:14 PM AIRPLANE TUBE BUILDER) Anatomical Region Laterality Modality Abdomen, Pelvis Computed Tomogra phy 06/04/2024 2:52 PM AIRPLANE TUBE BUILDER Impressions 06/04/2024 2:55 PM AIRPLANE TUBE BUILDER IMPRESSION: 1.Bilateral ovarian follicle/cysts, the largest is [...] 06/04/2024 2:55 PM Narrative 06/04/2024 2:55 PM AIRPLANE TUBE BUILDER PROCEDURE(s): CT ABDOMEN PELVIS W CONTRAST DATE [...] PM Terra Wagner MD CT ORDERABLES * HCG BLOOD QUALITATIVE (06/04/2024 1:20 PM AIRPLANE TUBE BUILDER) [facility] HCG Qual Serum Negative Negative 06/04/2024 1:39 PM AIRPLANE TUBE BUILDER [facility] Blood BLOOD SPECIMEN / Unknown Venipuncture / Unknown 06/04/2024 1:20 PM AIRPLANE TUBE BUILDER 06/04/2024 1:28 PM AIRPLANE TUBE BUILDER Narrative [facility] - 06/04/2024 1:39 PM AIRPLANE TUBE BUILDER Specimens containing human anti-mouse antibodies may exhibit false positive or false negative results. If qualitative interpretation is inconsistent with clinical evaluation, consider confirmation by an alternative hCG method. Terra Wagner MD LAB - CHEMISTRY CHANEL FELIX Performing Organization Address [facility] Co de Phone Number [facility] [phone] [place] [address] * LACTIC ACID BLOOD REFLEX TO REPEAT (06/04/2024 1:20 PM AIRPLANE TUBE BUILDER) [facility] Lactic Acid 0.9 <=2.0 mmol/L 06/04/2024 1:44 PM AIRPLANE TUBE BUILDER [facility] Blood BLOOD SPECIMEN / Unknown Venipuncture / Unknown 06/04/2024 1:20 PM AIRPLANE TUBE BUILDER 06/04/2024 1:28 PM AIRPLANE TUBE BUILDER Terra Wagner MD LAB - CHEMISTRY CHANEL FELIX Performing Organization Address [facility] Co de Phone Number [facility] [address] [place] [address] * CBC W AUTO DIFFERENTIAL (06/04/2024 1:20 PM AIRPLANE TUBE BUILDER) [facility] WBC 8.6 4.0 - 10.7 x10E9/L 06/04/2024 1:31 PM AIRPLANE TUBE BUILDER [facility] RBC Count 4.99 3.90 - 5.20 x10E12/L 06/04/2024 1:31 PM AIRPLANE TUBE BUILDER [facility] Hemoglobin 14.6 11.9 - 15.8 g/dL 06/04/2024 1:31 PM AIRPLANE TUBE BUILDER [facility] Hematocrit 43.9 34.8 - 46.1 % 06/04/2024 1:31 PM [facility] MCV 88.0 80.0 - 98.0 fL 06/04/2024 1:31 PM [facility] MCH 29.3 26.7 - 33.6 pg 06/04/2024 1:31 PM [facility] MCHC 33.3 31.7 - 36.3 g/dL 06/04/2024 1:31 PM [facility] RDW-CV 12.2 11.3 - 14.8 % 06/04/2024 1:31 PM [facility] Platelet Count 408 150 - 420 x10E9/L 06/04/2024 1:31 PM [facility] MPV 9.1 7.8 - 11.4 fL 06/04/2024 1:31 PM [facility] Neutrophil % 70.9 41.0 - 74.0 % 06/04/2024 1:31 PM [facility] Lymphocyte % 19.9 17.0 - 47.0 % 06/04/2024 1:31 PM [facility] Monocyte % 5.8 3.0 - 11.0 % 06/04/2024 1:31 PM [facility] Eosinophil % 2.3 0.0 - 7.0 % 06/04/2024 1:31 PM [facility] Basophil % 0.9 0.0 - 1.6 % 06/04/2024 1:31 PM [facility] [facility] Immature Granulocytes % 0.2 0.0 - 1.0 % 06/04/2024 1:31 PM [facility] Neutrophil Absolute 6.12 1.60 - 7.50 x10E9/L 06/04/2024 1:31 PM [facility] Lymphocyte Absolute 1.72 1.00 - 4.40 x10E9/L 06/04/2024 1:31 PM [facility] Monocyte Absolute 0.50 0.15 - 1.00 x10E9/L 06/04/2024 1:31 PM [facility] Eosinophil Absolute 0.20 0.00 - 0.60 x10E9/L 06/04/2024 1:31 PM [facility] Basophil Absolute 0.08 0.00 - 0.13 x10E9/L 06/04/2024 1:31 PM [facility] Blood BLOOD SPECIMEN / Unknown Venipuncture / Unknown 06/04/2024 1:20 PM [employer] 06/04/2024 1:28 PM [employer] Terra Wagner MD LAB - HEMATOLOGY ORD ERABLES [facility] [address] [place] [address] * (ABNORMAL) COMPREHENSIVE METABOLIC PANEL (06/04/2024 1:20 PM [employer]) Glucose 89 70 - 99 mg/dL 06/04/2024 1:44 PM [facility] Sodium 145 136 - 145 mmol/L 06/04/2024 1:44 PM [facility] Potassium 4.0 3.5 - 5.1 mmol/L 06/04/2024 1:44 PM [facility] Chloride 108(H) 98 - 107 mmol/L 06/04/2024 1:44 PM [facility] CO2 24 22 - 29 mmol/L 06/04/2024 1:44 PM [facility] Calcium 10.4 8.4 - 10.4 mg/dL 06/04/2024 1:44 PM [facility] Anion Gap 13 6 - 16 mmol/L 06/04/2024 1:44 PM [facility] BUN 9 7 - 26 mg/dL 06/04/2024 1:44 PM [facility] Creatinine 0.86 0.57 - 1.11 mg/dL 06/04/2024 1:44 PM [facility] Alkaline Phosphatase 57 40 - 150 U/L 06/04/2024 1:44 PM [facility] ALT 31 0 - 55 U/L 06/04/2024 1:44 PM [facility] AST 25 5 - 34 U/L 06/04/2024 1:44 PM [facility] Protein Total 8.7(H) 6.4 - 8.3 gm/dL 06/04/2024 1:44 PM [facility] Albumin 4.1 3.4 - 5.0 gm/dL 06/04/2024 1:44 PM [facility] Bilirubin Total 0.2 0.2 - 1.2 mg/dL 06/04/2024 1:44 PM [employer] [facility] eGFR by CKD-EPI 81(L) >=90 mL/min/1.7 3 m2 06/04/2024 1:44 PM [employer] [facility] Blood BLOOD SPECIMEN / Unknown Venipuncture / Unknown 06/04/2024 1:20 PM [employer] 06/04/2024 1:28 PM [employer] Terra Wagner MD LAB - CHEMISTRY CHANEL Monet Organization Address City/State/ZIP Co de Phone Number [facility] [address] [place] [address] documented in this encounter Visit Diagnoses Diagnosis Lower abdominal pain- Primary Abdominal pain, other specified site Diverticulitis of colon Diverticulitis of colon (without mention of hemorrhage) Calculus of gallbladder without cholecystitis without obstruction Calculus of gallbladder without mention of cholecystitis or obstruction documented in this encounter Administered Medications Inactive Administered Medications - up to 3 most recent administrations Medication Order MAR Action Action Date Dose Rate Site 0.9% NaCl IV bolus 500 mL, at 1,875 mL/hr, Administer over 16 Minutes, ONCE, 1 dose, On 06/04/24 at 1530 $ New Bag/Syringe 06/04/2024 3:36 PM [employer] 500 mL 1875 mL/hr iopamidol (Isovue 370) 76 % contrast Intravenous, CONTRAST ONCE, Starting on 06/04/24 at 1358, Until 06/04/24 at 1723 $ Given - Contrast 06/04/2024 2:08 PM [employer] 80 mL morphine injection 2 mg 2 mg, Intravenous, NOW, 1 dose, On 06/04/24 at 1300, Patient preference for lesser PRN pain meds may be honored when the patient requests a less strong medication, a lower dose, or a less intrusive route of administration when the lesser drug, dose and route have been ordered for the patient. This patient request must be documented in the MAR. If both oral and IV options are ordered for the same pain severity, give oral first unless patient cannot tolerate oral intake $ Given 06/04/2024 1:25 PM [employer] 2 mg ondansetron (Zofran) injection 4 mg 4 mg, Intravenous, NOW, 1 dose, On 06/04/24 at 1300, Administer over 2 to 5 minutes. $ Given 06/04/2024 1:25 PM [employer] 4 mg documented in this encounter Active and Recently Administered Medications Times are shown in [employer]. Scheduled Medication Order 06/02/2024 06/03/2024 06/04/2024 0.9% NaCl IV bolus (COMPLETED) 500 mL, at 1,875 mL/hr, Administer over 16 Minutes, ONCE, 1 dose, On 06/04/24 at 1530 1536 ($ New Bag/Syri nge - Provider: Issa Klein, [place])1552 (Stopped - Provider: Issa Klein, [place]) iopamidol (Isovue 370) 76 % contrast Intravenous, CONTRAST ONCE, Starting on 06/04/24 at 1358, Until 06/04/24 at 1723 1408 ($ Given - Cont rast - Provider: Ann Desouza, RT(R)CT) morphine injection 2 mg (COMPLETED) 2 mg, Intravenous, NOW, 1 dose, On 06/04/24 at 1300, Patient preference for lesser PRN pain meds may be honored when the patient requests a less strong medication, a lower dose, or a less intrusive route of administration when the lesser drug, dose and route have been ordered for the patient. This patient request must be documented in the MAR. If both oral and IV options are ordered for the same pain severity, give oral first unless patient cannot tolerate oral intake 1325 ($ Given - Prov ider: Wayne Garcia RN) ondansetron (Zofran) injection 4 mg (COMPLETED) 4 mg, Intravenous, NOW, 1 dose, On 06/04/24 at 1300, Administer over 2 to 5 minutes. 1325 ($ Given - Prov ider: Wayne Garcia RN) documented in this encounter Care Teams Spooling Operator Relationship Specialty Start Date End Date Keisha Pineda PA [address] [place] [address] PCP - General Physician Test Bore Helper 11/15/23 [place] [address] [address] [place] [id number] Surgical Oncologist Surgical Oncology 02/15/23 [place] [address] [phone] Net Developer Consultant/Oncologist Hematology and Oncology 02/16/23 documented as of this encounter
--- OUTSIDE RECORDS SUMMARY | 2024-07-02 04:40 | XMS_ITS | Clinical Summary ---
Author Organization [email or web address] Address [address] [place] [address] Care Team Providers Care Associate Curator Name Role Phone Naya Leonard Irving DO Unavailable [phone] Bernardo Lizarraga MD Unavailable [phone] Keisha Pineda Primary Care Pr ovider Source Comments [email or web address],non-owned Affiliates and Associated Physician Practices is amultiple site organization consisting of ambulatory clinics and hospital sitesin [place], [place], [place] and [place]. This disclosure is being madepursuant to the Care Everywhere program and may not contain all information available regarding this patient. Last updated 18.[email or web address] Allergies No known active allergies Medications * Be aware that medications may not be up to date on this document. Alwaysverify current medications with the patient. Medication Sig Dispensed Refills Start Date End Date Status tamoxifen (Nolvadex) 20 MG tabletIndications:I nvasive ductal carcinoma of right breast (HCC) TAKE 1 TABLET BY MOUTH DAILY FOR BREAST CANCER 90 tablet 2 03/15/2024 Active Additional Information Patient not taking.Reported on 06/29/2024 prochlorperazine (Compazine) 10 MG tablet Take 1 (one) tablet by mouth every 8 hours as needed 06/27/2024 Active Active Problems Problem Noted Date Diagnosed Date Invasive ductal carcinoma of right breast 2022 Cancer Staging:Pathologic stage from 04/19/2023:Stage IA(pT1c, pN0, cM0, G1, ER+, AZ+, HER2-, Oncotype DX score: 21) - Signed by Bernardo Lizarraga MD on 04/19/2023 Postoperative seroma of subc utaneous tissue after non-dermatologic procedure 02/25/2023 COVID-19 07/09/2021 Hypercholesteremia 01/31/2019 PCOS (polycystic ovarian syndrome) Resolved Problems Problem Noted Date Diagnosed Date Resolved Date MVP (mitral valve prolapse) 02/05/2023 Assessment & Plan (02/05/2023 9:10 AM CDT): Work up was negative Encounters Date Type Department Care Team Description 06/29/2024 3:00 PM MINING SPECULATOR Office Visit [address] [place] [address] Bernardo Lizarraga MD Invasive ductal carcinoma of right breast (HCC) (Primary Dx); Hot flashes; Premenopausal patient; Family history of cancer; Diverticulitis of colon 06/05/2024 Telephone [facility] - Surgery [address] [facility] [address], [address] [place] [address] Naya Leonard DO Med Question 06/04/2024 11:36 AM MINING SPECULATOR - 06/04/2024 4:23 PM MINING SPECULATOR Emergency ER at [facility] [address] [place] [address] Terra Wagner MD Lower abdominal pain (Primary Dx); Diverticulitis of colon; Calculus of gallbladder without cholecystitis without obstruction Discharge Disposition: Home or Self Care 06/04/2024 Travel 05/16/2024 2:40 PM MINING SPECULATOR Office Visit [address] [place] [address] Bernardo Lizarraga MD Invasive ductal carcinoma of right breast (HCC) (Primary Dx); Hot flashes; Premenopausal patient from Last 3 Months Immunizations Name Administration Dates Next Due Covid Pfizer primary monoval ent 12+ yr 0.3mL Purple cap 05/04/2021,10/31/2020,10/10/2020 FLU VACCINE TRI IIV3 SPLIT I M (FLUVIRIN) 04/17/2014 INFLUENZA VACCINE, ADJUVANTE D, TRIV. (FLUAD TRIVALENT; 65Y+) (AIIV3) 05/04/2021 INFLUENZA VACCINE, CELL CULT URE, QUADR. (FLUCELVAX QUADRIVALENT; 6MO+) (CCIIV4) 04/09/2020 INFLUENZA VACCINE, QUADR. (F LUZONE; FLULAVAL; FLUARIX; AFLURIA QUADRIVALENT; 6MO+), 0.5 ML (IIV4) 05/27/2023,05/26/2022,05/04/2021, 019,04/29/2018 INFLUENZA VACCINE, TRIV. (FL UZONE; FLULAVAL; FLUARIX; AFLURIA TRIVALENT; 6MO+), 0.5 ML (IIV3) 05/04/2017,04/13/2016,04/15/2015 TDAP (7yrs+) 01/31/2019 Family History Medical History Relation Name Comments Other Mother breast cyst Cancer - Breast Paternal Grandmother Relation Name Status Comments Brother Alive Father Alive Maternal Grandfather Maternal Grandmother Mother Alive Paternal Grandfather Paternal Grandmother Sister Alive Social History Tobacco Use Types Packs/Day Years [...] Comments Blood Pressure 112/72 06/29/2024 3:07 PM MINING SPECULATOR Pulse 72 06/29/2024 3:07 PM MINING SPECULATOR Temperature 36.7 ??C (98.1 ??F) 06/29/2024 3:07 PM CS T Respiratory Rate 18 06/29/2024 3:07 PM MINING SPECULATOR Oxygen Saturation 99% 06/29/2024 3:07 PM MINING SPECULATOR Inhaled Oxygen Concentration - - Weight 73.6 kg (162 lb 4.8 oz) 06/29/2024 3:07 P M MINING SPECULATOR Height 163.8 cm (5' 4.5 ) 06/29/2024 3:07 PM MINING SPECULATOR Body Mass Index 27.43 06/29/2024 3:07 PM MINING SPECULATOR Plan of Treatment Upcoming Encounters Date Type Department Care Team (Late st Contact Info) Description 07/19/2024 9:45 AM MINING SPECULATOR Office Visit [facility] - PERITONEAL DIALYSIS REGISTERED NURSE [address] [place] [address] Leatha Gupta MD [address] [place] [address] 12/11/2024 9:00 AM CDT Office Visit [facility] - Surgery [address], [address] [place] [address] [place] [address] [place] [address] 12/11/2024 10:40 AM CDT Office Visit [facility] [address] [place] [address] [place] [address] [place] [facility] [address] [place] [address] Health Maintenance Due Date Last Done Comments COLOGUARD (AGES 45-75) - COLON CA SCREENING 1970 CT COLONOGRAPHY - COLON CA SCREENING 1970 FIT - COLON CA SCREENING 1970 FLEX SIG - COLON CA SCREENING 1970 HEPATITIS B VACCINE (1 of 3 - 19+ 3-dose series) 1989 ZOSTER VACCINE (1 of 2) 2020 COVID-19 VACCINE ( season) 2024 05/04/2021, 10/31/2020, 10/10/2020 INFLUENZA VACCINE (#1) 2024 , 05/26/2022, 05/04/2021, Additional history exists MAMMOGRAM 12/30/2024 12/30/2022, 09/0 12/2021, 12/24/2021, Additional history exists SCREENING FOR DIABETES 06/04/2027 , 02/05/2023, 09/07/2013 LIPID TESTING 02/06/2028 02/05/2023 PAP with HPV 05/27/2028 05/27/2023, 12/29/2017 DTAP/TDAP/TD VACCINES (2 - Td or Tdap) 01/31/2029 01/31/2019 COLON MONITORING 09/26/2033 09/27/2023, 09/27/2023 COLONOSCOPY - COLON CA SCREENING 09/26/2033 09/27/2023, 09/27/2023 Colorectal Cancer Screening 09/26/2033 HEPATITIS C SCREENING Completed 02/05/2023 HIV SCREENING Completed 02/05/2023 DEPRESSION SCREENING Completed 11/15/2023, 12/30/2022, 05/26/2022 HIB VACCINE Aged Out No longer eligi ble based on patient's age to complete this topic HPV VACCINE Aged Out No longer eligi ble based on patient's age to complete this topic MENINGOCOCCAL VACCINE Aged Out No isaias tin eligible based on patient's age to complete this topic PNEUMOCOCCAL VACCINE Aged Out No long er eligible based on patient's age to complete this topic Procedures Procedure Name Priority Date/Time Associated Diagnosis Comments CT ABDOMEN PELVIS W CONTRAST STAT 06/04/2024 2:14 PM MINING SPECULATOR Lower abdominal pain HCG BLOOD QUALITATIVE STAT 06/04/2024 1:20 PM MINING SPECULATOR LACTIC ACID BLOOD REFLEX TO REPEAT STAT 06/04/2024 1:20 PM MINING SPECULATOR CBC W AUTO DIFFERENTIAL STAT 06/04/2024 1:20 PM MINING SPECULATOR COMPREHENSIVE METABOLIC PANEL STAT 06/04/2024 1:20 PM MINING SPECULATOR FSH + LH PANEL Routine 05/16/2024 3:05 PM MINING SPECULATOR Invasive ductal carcinoma of right breast (HCC) Hot flashes Premenopausal patient ESTRADIOL Routine 05/16/2024 3:05 PM MINING SPECULATOR Invasive ductal carcinoma of right breast (HCC) Hot flashes Premenopausal patient ENDOSCOPY, COLON, SCREENING Routine 09/27/2023 9:15 AM CDT Special screening for malignant neoplasms, colon PAP IG LB+HPV APTIMA Routine 05/27/2023 4:44 PM MINING SPECULATOR Well woman exam LIPID PROFILE Routine 02/05/2023 9:29 AM CDT Screening cholesterol level HEPATITIS C ANTIBODY Routine 02/05/2023 9:28 AM CDT Need for hepatitis C screening test HIV-1 HIV-2 ANTIBODY + HIV P24 AG PANEL Routine 02/05/2023 9:28 AM CDT Screening for HIV without presence of risk factors MAMMO BILAT DIAGNOSTIC W DONALD Routine 12/30/2022 9:13 AM CDT Encounter for screening mammogram for malignant neoplasm of breast from Last 3 Months or Most Recently Relevant to Health Maintenance Results * CT ABDOMEN PELVIS W CONTRAST (06/04/2024 2:14 PM MINING SPECULATOR) Anatomical Region Laterality Modality Abdomen, Pelvis Computed Tomogra phy 06/04/2024 2:52 PM MINING SPECULATOR Impressions 06/04/2024 2:55 PM MINING SPECULATOR IMPRESSION: 1.Bilateral ovarian follicle/cysts, the largest is [...] 06/04/2024 2:55 PM Narrative 06/04/2024 2:55 PM MINING SPECULATOR PROCEDURE(s): CT ABDOMEN PELVIS W CONTRAST DATE [...] BLOOD REFLEX TO REPEAT (06/04/2024 1:20 PM MINING SPECULATOR) Lactic Acid 0.9 <=2.0 mmol/L 06/04/2024 1:44 PM MINING SPECULATOR [facility] Blood BLOOD SPECIMEN / Unknown Venipuncture / Unknown 06/04/2024 1:20 PM MINING SPECULATOR 06/04/2024 1:28 PM MINING SPECULATOR Terra Wagner MD LAB - CHEMISTRY CHANEL FELIX [facility] Organization Address City/State/ZIP Co de Phone Number [facility] [address] [place] [address] * CBC W AUTO DIFFERENTIAL (06/04/2024 1:20 PM MINING SPECULATOR) WBC 8.6 4.0 - 10.7 x10E9/L 06/04/2024 1:31 PM MINING SPECULATOR [facility] RBC Count 4.99 3.90 - 5.20 x10E12/L 06/04/2024 1:31 PM MINING SPECULATOR [facility] Hemoglobin 14.6 11.9 - 15.8 g/dL 06/04/2024 1:31 PM MINING SPECULATOR [facility] Hematocrit 43.9 34.8 - 46.1 % 06/04/2024 1:31 PM MINING SPECULATOR [facility] MCV 88.0 80.0 - 98.0 fL 06/04/2024 1:31 PM MINING SPECULATOR [facility] MCH 29.3 26.7 - 33.6 pg 06/04/2024 1:31 PM MINING SPECULATOR [facility] MCHC 33.3 31.7 - 36.3 g/dL 06/04/2024 1:31 PM MINING SPECULATOR [facility] RDW-CV 12.2 11.3 - 14.8 % 06/04/2024 1:31 PM MINING SPECULATOR [facility] Platelet Count 408 150 - 420 x10E9/L 06/04/2024 1:31 PM MINING SPECULATOR [facility] MPV 9.1 7.8 - 11.4 fL 06/04/2024 1:31 PM MINING SPECULATOR [facility] Neutrophil % 70.9 41.0 - 74.0 % 06/04/2024 1:31 PM MINING SPECULATOR [facility] Lymphocyte % 19.9 17.0 - 47.0 % 06/04/2024 1:31 PM MINING SPECULATOR [facility] Monocyte % 5.8 3.0 - 11.0 % 06/04/2024 1:31 PM MINING SPECULATOR [facility] Eosinophil % 2.3 0.0 - 7.0 % 06/04/2024 1:31 PM MINING SPECULATOR [facility] Basophil % 0.9 0.0 - 1.6 % 06/04/2024 1:31 PM MINING SPECULATOR [facility] Immature Granulocytes % 0.2 0.0 - 1.0 % 06/04/2024 1:31 PM MINING SPECULATOR [facility] Neutrophil Absolute 6.12 1.60 - 7.50 x10E9/L 06/04/2024 1:31 PM MINING SPECULATOR [facility] Lymphocyte Absolute 1.72 1.00 - 4.40 x10E9/L 06/04/2024 1:31 PM MINING SPECULATOR [facility] Monocyte Absolute 0.50 0.15 - 1.00 x10E9/L 06/04/2024 1:31 PM MINING SPECULATOR [facility] Eosinophil Absolute 0.20 0.00 - 0.60 x10E9/L 06/04/2024 1:31 PM MINING SPECULATOR [facility] Basophil Absolute 0.08 0.00 - 0.13 x10E9/L 06/04/2024 1:31 PM MINING SPECULATOR [facility] Blood BLOOD SPECIMEN / Unknown Venipuncture / Unknown 06/04/2024 1:20 PM MINING SPECULATOR 06/04/2024 1:28 PM MINING SPECULATOR Terra Wagner MD LAB - HEMATOLOGY ORD ERABLES Performing Organization Address City/State/[facility] Co de Phone Number [facility] [address] [place] [phone] * (ABNORMAL) COMPREHENSIVE METABOLIC PANEL (06/04/2024 1:20 PM MINING SPECULATOR) [facility] Glucose 89 70 - 99 mg/dL 06/04/2024 1:44 PM [facility] Sodium 145 136 - 145 mmol/L 06/04/2024 1:44 PM [facility] Potassium 4.0 3.5 - 5.1 mmol/L 06/04/2024 1:44 PM [facility] Chloride 108(H) 98 - 107 mmol/L 06/04/2024 1:44 PM [facility] CO2 24 22 - 29 mmol/L 06/04/2024 1:44 PM [facility] Calcium 10.4 8.4 - 10.4 mg/dL 06/04/2024 1:44 PM [facility] Anion Gap 13 6 - 16 mmol/L 06/04/2024 1:44 PM [facility] BUN 9 7 - 26 mg/dL 06/04/2024 1:44 PM [facility] Creatinine 0.86 0.57 - 1.11 mg/dL 06/04/2024 1:44 PM MINING SPECULATOR [facility] Alkaline Phosphatase 57 40 - 150 U/L 06/04/2024 1:44 PM MINING SPECULATOR [facility] ALT 31 0 - 55 U/L 06/04/2024 1:44 PM MINING SPECULATOR [facility] AST 25 5 - 34 U/L 06/04/2024 1:44 PM MINING SPECULATOR [facility] Protein Total 8.7(H) 6.4 - 8.3 gm/dL 06/04/2024 1:44 PM MINING SPECULATOR [facility] Albumin 4.1 3.4 - 5.0 gm/dL 06/04/2024 1:44 PM MINING SPECULATOR [facility] Bilirubin Total 0.2 0.2 - 1.2 mg/dL 06/04/2024 1:44 PM MINING SPECULATOR [facility] eGFR by CKD-EPI 81(L) >=90 mL/min/1.7 3 m2 06/04/2024 1:44 PM MINING SPECULATOR [facility] Blood BLOOD SPECIMEN / Unknown Venipuncture / Unknown 06/04/2024 1:20 PM MINING SPECULATOR 06/04/2024 1:28 PM MINING SPECULATOR Terra Wagner MD LAB - CHEMISTRY CHANEL FELIX Performing Organization Address City/[facility] Co de Phone Number [facility] [address] [place] [address] * HCG BLOOD QUALITATIVE (06/04/2024 1:20 PM MINING SPECULATOR) HCG Qual Serum Negative Negative 06/04/2024 1:39 PM MINING SPECULATOR [facility] Blood BLOOD SPECIMEN / Unknown Venipuncture / Unknown 06/04/2024 1:20 PM MINING SPECULATOR 06/04/2024 1:28 PM MINING SPECULATOR Narrative [facility] - 06/04/2024 1:39 PM MINING SPECULATOR Specimens containing human anti-mouse antibodies may exhibit false positive or false negative results. If qualitative interpretation is inconsistent with clinical evaluation, consider confirmation by an alternative hCG method. Terra Wagner MD LAB - CHEMISTRY CHANEL FELIX Performing Organization Address [facility]/ZIP Co de Phone Number [facility] [address] [place] [address] * ESTRADIOL (05/16/2024 3:05 PM MINING SPECULATOR) Estradiol 234.0 pg/mL [facility] ACCOUNT BILL Comment: ? Adult Female ? Range ?Follicular phase ? 12.5 - 166.0 ?Ovulation phase ?85.8 - 498.0 ?Luteal phase ? 43.8 - 211.0 ?Postmenopausal ? <6.0 - ??54.7 ?1st trimester ? 215.0 - >4300.0 Phong ECLIA methodology Blood BLOOD SPECIMEN / Unknown 05/16/2024 3:05 PM MINING SPECULATOR 05/16/2024 Comment:[facility] Narrative [facility] ACCOUNT BILL - 05/17/2024 1:10 PM MINING SPECULATOR Performed at: ??01 - [facility] [address] [place], [place] ??[id number] Analytical Scientist: Declan Drake PhD, Phone: ??[phone] Bernardo Lizarraga MD LAB - CHEMISTRY CHANEL FELIX [facility] ACCOUNT BILL [address] [place] [address] * FSH + LH PANEL (05/16/2024 3:05 PM MINING SPECULATOR) LH 9.1 mIU/mL [facility] ACCOUNT BILL Comment: [...] BLOOD SPECIMEN / Unknown 05/16/2024 3:05 PM MINING SPECULATOR 05/16/2024 Comment:Blood Release to pat i Narrative [facility] ACCOUNT BILL - 05/17/2024 12:07 AM MINING SPECULATOR Performed at: ?? [address] ??[id number] Analytical Scientist: Dillan Hernandez MD, Phone: ??[phone] Bernardo Lizarraga MD LAB - CHEMISTRY CHANEL FELIX [facility] Organization Address City/State/ZIP Co de Phone Number [facility] ACCOUNT BILL [address] [place] [address] * ENDOSCOPY, COLON, SCREENING (09/27/2023 9:15 AM CDT) Report Endoscopy POC _ Patient Name: Betina Coy ? Procedure Date: 09/27/2023 9:15 AM ? Date of : 1970 ?Admit Type: Outpatient Age: 53 ? Gender: Female Attending MD: Adaam Holliday MD, [id number] _ Procedure: ? Colonoscopy Indications: ? Screening [...] ? preparation was evaluated using the BBPS (Concepcion Bowel ? Preparation Scale) with scores of: [...] Procedure Code(s): ? --- Professional --- ? 25372, Colonoscopy, flexible; diagnostic, including collection of ? specimen(s) by brushing or washing, when performed (separate procedure) ? --- Technical --- ? 89108, Colonoscopy, flexible; diagnostic, including collection of ? [...] abscess ? without bleeding CPT copyright 2020 [employer]. All rights reserved. The codes documented in this report are preliminary and upon director human services review may be revised to meet current compliance requirements. __ Adama Holliday MD 09/27/2023 10:47:51 AM Number of Addenda: 0 Note Initiated On: 09/27/2023 9:15 AM [facility] 09/27/2023 9:15 AM CDT Narrative Procedure Note Adama Holliday MD - 09/27/2023 10:48 AM CDT Colonoscopy done for screening. Normal colon other than diverticulosis.Repeat in 10 years for screening. Ricky Fuentes MD GI PROCEDURE ORDERA AMBER [facility] [place] [address] * PAP IG LB+HPV APTIMA (05/27/2023 4:44 PM MINING SPECULATOR) Diagnosis [facility] ACCOUNT BILL Comment:NEGATIVE FOR INTRAEP [...] UTERINE CERVIX / Unknown 05/27/2023 4:44 PM MINING SPECULATOR 05/31/2023 Narrative [facility] ACCOUNT BILL - 06/02/2023 10:12 AM MINING SPECULATOR No. of containers..01 ThinPrep Vial Resulting Agency Comment Lab Testing performed at: [address] ??[facility] [id number] Leatha Gupta MD LAB - PATHOLOGY/CYT OLOGY ORDERABLES [facility] ACCOUNT BILL [address] [place] [address] * (ABNORMAL) LIPID PROFILE (02/05/2023 9:29 AM CDT) Cholesterol 291(H) <200 mg/dL [facility] ACCOUNT BILL Triglycerides 272(H) <150 mg/dL [facility] ACCOUNT BILL HDL Cholesterol 53 >40 mg/dL [facility] ACCOUNT BILL VLDL Calculated 54(H) <=30 mg/dL [facility] ACCOUNT BILL LDL Calculated 184(H) <130 mg/dL [facility] ACCOUNT BILL Blood BLOOD SPECIMEN / Unknown 02/05/2023 9:29 AM CDT 02/05/2023 Narrative Resulting Agency Comment Lab Testing performed at: [facility] [address] ?? [place] [id number] Celina Sifuentes MD LAB - CHEMISTRY O RDERABLES [facility] ACCOUNT BILL [address] [place] [address] * HIV-1 HIV-2 ANTIBODY + HIV P24 AG PANEL (02/05/2023 9:28 AM CDT) HIV Screen 4th Generation w Reflex Non Reactive Non Reactive [facility] ACCOUNT BILL Comment: HIV Negative HIV-1/HIV-2 antibodies and HIV-1 p24 antigen were NOT detected. There is no laboratory evidence of HIV infection. Blood BLOOD SPECIMEN / Unknown 02/05/2023 9:28 AM CDT 02/05/2023 Narrative Resulting Agency Comment Lab Testing performed at: [facility] ??[facility] [id number] Celina Sifuentes MD LAB - CHEMISTRY O RDERABLES [facility] ACCOUNT BILL [address] [place] [address] * HEPATITIS C ANTIBODY (02/05/2023 9:28 AM [...] Agency Comment Lab Testing performed at: [facility] [address] ??[facility] [id number] Celina Sifuentes MD LAB - CHEMISTRY O RDERABLES [facility] ACCOUNT BILL [address] [place] [address] * (ABNORMAL) MAMMO BILAT DIAGNOSTIC W DONALD [...] be scheduled to return to the Breast [facility] for biopsy . > Interpreting Provider: Maddi [...] BOTH breasts was performed by a trained mammography tech and by Dr. Maddi Landeros. BREAST PARENCHYMAL [...] hypoechoic mass. Leatha Gupta MD MAMMO ORDERABLES from Last 3 Months or Most Recently Relevant to Health Maintenance Care Teams Associate Curator Relationship Specialty Start Date End Date Keisha Pineda PA [address] [place] [address] PCP - General Physician Single Needle Operator 11/15/23 [place] [address] [address] [facility] [address] [place] [address] Surgical Oncologist Surgical Oncology 02/15/23 [place] [address] [address] [facility] [address] [place] [address] Parker/Oncologist Hematology and Oncology 02/16/23
--- OUTSIDE RECORDS SUMMARY | 2024-07-02 04:40 | XMS_ITS | Encounter Summary ---
Author Organization [facility] Address [address] [facility] [place] [address] Care Team Providers Care Utilization Management Manager Name Role Phone HoracioNaya Irving DO Unavailable [phone] Bernardo Lizarraga MD Unavailable [phone] Keisha Pineda Primary Care Pr ovider Reason for Visit * Reason Comments Refill Request Encounter Details Date Type Department Care Team (Late st Contact Info) Description 03/15/2024 Refill [facility] [address] [place] [address] [place] [address] [address] Refill Request Social History Tobacco Use Types Packs/Day Years [...] st Contact Info) Description 07/19/2024 9:45 AM PREDICTIVE MAINTENANCE TECHNICIAN Office Visit [facility] - RN OTOLARYNGOLOGY [address] [place] [address] Leatha Gupta MD [address] [place] [address] 12/11/2024 9:00 AM CDT Office Visit [facility] - Surgery [address] [place] [address], [address] [address] [place] [address] [address] 12/11/2024 10:40 AM CDT Office Visit [facility] [address] [place] [address]. [address] [place] [address] [place] [address] [address] documented as of this encounter Visit Diagnoses Diagnosis Invasive ductal carcinoma of right breast (HCC) documented in this encounter Care Teams Utilization Management Manager Relationship Specialty Start Date End Date Keisha Pineda PA [address] [place] [id number] PCP - General Physician Materials Analyst 11/15/23 [place] [address] [address] Surgical Oncologist Surgical Oncology 02/15/23 [place] [address] [address] [facility] [address] [place] [address] Steel Box Toe Inserter/Oncologist Hematology and Oncology 02/16/23 documented as of this encounter
--- OUTSIDE RECORDS SUMMARY | 2024-07-02 04:40 | XMS_ITS | Encounter Summary ---
Author Organization [facility] Address [address] [place] [address] Care Team Providers Care Metal Ceiling Builder Name Role Phone HoracioNaya Irving DO Unavailable [phone] Bernardo Lizarraga MD Unavailable [phone] Keisha Pineda Primary Care Pr ovider Encounter Details Date Type Department Care Team (Latest Contact Info) Description 06/04/2024 Travel Social History Tobacco Use Types Packs/Day [...] No 06/08/2023 Cognitive Status Response Date of Assess ent Does person have difficulty concentrating/remembering/making decisions? No 06/08/2023 documented as of this encounter Plan of Treatment Upcoming Encounters Date Type Department Care Team (Late st Contact Info) Description 07/19/2024 9:45 AM SHANK TAPPER Office Visit [facility] - BLOCK CHOPPER HAND [address] [place] [address] Leatha Gupta MD [address] [place] [address] 12/11/2024 9:00 AM CDT Office Visit [facility] - Surgery [address] [place] [address], [address] [place] [address] [place] [address] [address] 12/11/2024 10:40 AM CDT Office Visit [facility] Cancer Care [address] [place] [address] [address] [place] [address] [place] [address] [address] [facility] [address] [place] [address] documented as of this encounter Visit Diagnoses Not on filedocumented in this encounter Care Teams Metal Ceiling Builder Relationship Specialty Start Date End Date Keisha Pineda PA [address] [place] [address] PCP - General Physician Firer Boiler 11/15/23 [place] [address] [address] [place] [address] Surgical Oncologist Surgical Oncology 02/15/23 [place] [address] [address] Driver'S Education Instructor/Oncologist Hematology and Oncology 02/16/23 documented as of this encounter
--- OUTSIDE RECORDS SUMMARY | 2024-07-02 04:40 | XMS_ITS | Encounter Summary ---
Author Organization [facility] Address [address] [place] [address] Care Team Providers Care Latex Caster Name Role Phone Naya Leonard Irving DO Unavailable [phone] Bernardo Lizarraga MD Unavailable [phone] Keisha Pineda Primary Care Pr ovider Encounter Details Date Type Department Care Team (Latest Contact Info) Description 12/01/2023 Travel Social History Tobacco Use Types Packs/Day [...] st Contact Info) Description 07/19/2024 9:45 AM DATA ENTRY MANAGER Office Visit [facility] - ENTERPRISE SALES EXECUTIVE [address] [place] [address] Leatha Gupta MD [address] [place] [address] 12/11/2024 9:00 AM CDT Office Visit [facility] - Surgery [address] [facility], [address] [place] [address] [place] [address] [address] [place] [address] 12/11/2024 10:40 AM CDT Office Visit [facility] Cancer Care [address] [facility] [address] [place] [address] [place] [address] [address] [place] [address] documented as of this encounter Visit Diagnoses Not on filedocumented in this encounter Care Teams Latex Caster Relationship Specialty Start Date End Date Keisha Pineda PA [address] [place] [address] PCP - General Physician Trucker Hand 11/15/23 [place] [address] [address] [place] [address] Surgical Oncologist Surgical Oncology 02/15/23 [place] [address] [address] [place] [address] Apparel Sales Associate/Oncologist Hematology and Oncology 02/16/23 documented as of this encounter
--- OUTSIDE RECORDS SUMMARY | 2024-07-02 04:40 | XMS_ITS | Referral Summary ---
Author Organization [facility] Address [address] [place] [address] Care Team Providers Care Composite Assembler Name Role Phone Naya Leonard DO Unavailable [phone] Bernardo Lizarraga MD Unavailable Keisha Pineda Primary Care Pr ovider Source Comments [facility],non-owned Affiliates and Associated Physician Practices is amultiple site organization consisting of ambulatory clinics and hospital sitesin [place], [place]. This disclosure is being madepursuant to the Care Everywhere program and may not contain all information available regarding this patient. Last updated 18.[facility] Encounters Date Type Department Care Team Description 06/29/2024 3:00 PM UPPER LEATHER CUTTER Office Visit [facility] Cancer Care [address] [facility] [address] [place] [address] Bernardo Lizarraga MD Invasive ductal carcinoma of right breast (HCC) (Primary Dx); Hot flashes; Premenopausal patient; Family history of cancer; Diverticulitis of colon 06/05/2024 Telephone [facility] Medical [facility] - Surgery [address] [facility], [address] [place] [address] Naya Leonard, DO Med Question 06/04/2024 Travel 06/04/2024 11:36 AM UPPER LEATHER CUTTER - 06/04/2024 4:23 PM UPPER LEATHER CUTTER Emergency ER at [facility] [address] [place] [address] Terra Wagner MD Lower abdominal pain (Primary Dx); Diverticulitis of colon; Calculus of gallbladder without cholecystitis without obstruction Discharge Disposition: Home or Self Care 05/16/2024 2:40 PM UPPER LEATHER CUTTER Office Visit [facility] Cancer Care [address] [facility] [address] [place] [address] Bernardo Lizarraga MD Invasive ductal carcinoma of right breast (HCC) (Primary Dx); Hot flashes; Premenopausal patient from Last 3 Months Allergies No known active allergies Medications * [...] from 04/19/2023:Stage IA(pT1c, pN0, cM0, G1, ER+, OH+, HER2-, Oncotype DX score: 21) - Signed by Bernardo Lizarraga MD on 04/19/2023 Postoperative seroma of subc utaneous tissue after non-dermatologic procedure 02/25/2023 COVID-19 07/09/2021 Hypercholesteremia 01/31/2019 PCOS (polycystic ovarian syndrome) Resolved Problems Problem Noted Date Diagnosed Date Resolved Date MVP (mitral valve prolapse) 02/05/2023 Assessment & Plan (02/05/2023 9:10 AM CDT): Work up was negative Immunizations Name Administration Dates Next Due Covid [...] 0.5 ML (IIV3) 05/04/2017,04/13/2016,04/15/2015 TDAP (7yrs+) 01/31/2019 Social History Tobacco Use Types Packs/Day Years [...] Comments Blood Pressure 112/72 06/29/2024 3:07 PM UPPER LEATHER CUTTER Pulse 72 06/29/2024 3:07 PM UPPER LEATHER CUTTER Temperature 36.7 ??C (98.1 ??F) 06/29/2024 3:07 PM CS T Respiratory Rate 18 06/29/2024 3:07 PM UPPER LEATHER CUTTER Oxygen Saturation 99% 06/29/2024 3:07 PM UPPER LEATHER CUTTER Inhaled Oxygen Concentration - - Weight 73.6 kg (162 lb 4.8 oz) 06/29/2024 3:07 P M UPPER LEATHER CUTTER Height 163.8 cm (5' 4.5 ) 06/29/2024 3:07 PM UPPER LEATHER CUTTER Body Mass Index 27.43 06/29/2024 3:07 PM UPPER LEATHER CUTTER Functional Status Functional Status Response Date of [...] person have difficulty concentrating/remembering/making decisions? No 06/08/2023 Plan of Treatment Upcoming Encounters Date Type Department Care Team (Late st Contact Info) Description 07/19/2024 9:45 AM UPPER LEATHER CUTTER Office Visit [facility] - GUEST RELATIONS ASSOCIATE [address] [place] [address] Leatha Gupta MD [address] [place] [address] 12/11/2024 9:00 AM CDT Office Visit [facility] - Surgery [address] [facility], [address] [place] [address] [place] [address] [address] 12/11/2024 10:40 AM CDT Office Visit [facility] Cancer Care [address] [place] [address] [address] [place] [address] Bernardo Lizarraga MD [address] [place] [address] Procedures Procedure Name Priority Date/Time Associated Diagnosis Comments CT ABDOMEN PELVIS W CONTRAST STAT 06/04/2024 2:14 PM UPPER LEATHER CUTTER Lower abdominal pain HCG BLOOD QUALITATIVE STAT 06/04/2024 1:20 PM UPPER LEATHER CUTTER LACTIC ACID BLOOD REFLEX TO REPEAT STAT 06/04/2024 1:20 PM UPPER LEATHER CUTTER CBC W AUTO DIFFERENTIAL STAT 06/04/2024 1:20 PM UPPER LEATHER CUTTER COMPREHENSIVE METABOLIC PANEL STAT 06/04/2024 1:20 PM UPPER LEATHER CUTTER FSH + LH PANEL Routine 05/16/2024 3:05 PM UPPER LEATHER CUTTER Invasive ductal carcinoma of right breast (HCC) Hot flashes Premenopausal patient ESTRADIOL Routine 05/16/2024 3:05 PM UPPER LEATHER CUTTER Invasive ductal carcinoma of right breast (HCC) Hot flashes Premenopausal patient ENDOSCOPY, COLON, SCREENING Routine 09/27/2023 9:15 AM CDT Special screening for malignant neoplasms, colon PAP IG LB+HPV APTIMA Routine 05/27/2023 4:44 PM UPPER LEATHER CUTTER Well woman exam LIPID PROFILE Routine 02/05/2023 [...] ABDOMEN PELVIS W CONTRAST (06/04/2024 2:14 PM UPPER LEATHER CUTTER) Anatomical Region Laterality Modality Abdomen, Pelvis Computed Tomogra phy 06/04/2024 2:52 PM UPPER LEATHER CUTTER Impressions 06/04/2024 2:55 PM UPPER LEATHER CUTTER IMPRESSION: 1.Bilateral ovarian follicle/cysts, the largest is [...] 06/04/2024 2:55 PM Narrative 06/04/2024 2:55 PM UPPER LEATHER CUTTER PROCEDURE(s): CT ABDOMEN PELVIS W CONTRAST DATE [...] BLOOD REFLEX TO REPEAT (06/04/2024 1:20 PM UPPER LEATHER CUTTER) Pathologist [facility] Lactic Acid 0.9 <=2.0 mmol/L 06/04/2024 1:44 PM UPPER LEATHER CUTTER [facility] Blood BLOOD SPECIMEN / Unknown Venipuncture / Unknown 06/04/2024 1:20 PM UPPER LEATHER CUTTER 06/04/2024 1:28 PM UPPER LEATHER CUTTER Terra Wagner MD LAB - CHEMISTRY [facility] Address City/State/ZIP Co de Phone Number [facility] [address] [place] [address] * CBC W AUTO DIFFERENTIAL (06/04/2024 1:20 PM UPPER LEATHER CUTTER) [facility] WBC 8.6 4.0 - 10.7 x10E9/L 06/04/2024 1:31 PM UPPER LEATHER CUTTER [facility] RBC Count 4.99 3.90 - 5.20 x10E12/L 06/04/2024 1:31 PM [facility] Hemoglobin 14.6 11.9 - 15.8 g/dL 06/04/2024 1:31 PM [facility] Hematocrit 43.9 34.8 - 46.1 % 06/04/2024 1:31 PM [facility] MCV 88.0 80.0 - 98.0 fL 06/04/2024 1:31 PM [facility] MCH 29.3 26.7 - 33.6 pg 06/04/2024 1:31 PM [facility] MCHC 33.3 31.7 - 36.3 g/dL 06/04/2024 1:31 PM [facility] RDW-CV 12.2 11.3 - 14.8 % 06/04/2024 1:31 PM [facility] Platelet Count 408 150 - 420 x10E9/L 06/04/2024 1:31 PM [facility] MPV 9.1 7.8 - 11.4 fL 06/04/2024 1:31 PM [facility] Neutrophil % 70.9 41.0 - 74.0 % 06/04/2024 1:31 PM [facility] Lymphocyte % 19.9 17.0 - 47.0 % 06/04/2024 1:31 PM [facility] Monocyte % 5.8 3.0 - 11.0 % 06/04/2024 1:31 PM UPPER LEATHER CUTTER [facility] Eosinophil % 2.3 0.0 - 7.0 % 06/04/2024 1:31 PM UPPER LEATHER CUTTER [facility] Basophil % 0.9 0.0 - 1.6 % 06/04/2024 1:31 PM [facility] Immature Granulocytes % 0.2 0.0 - 1.0 % 06/04/2024 1:31 PM [facility] Neutrophil Absolute 6.12 1.60 - 7.50 x10E9/L 06/04/2024 1:31 PM UPPER LEATHER CUTTER [facility] Lymphocyte Absolute 1.72 1.00 - 4.40 x10E9/L 06/04/2024 1:31 PM [facility] Monocyte Absolute 0.50 0.15 - 1.00 x10E9/L 06/04/2024 1:31 PM [facility] Eosinophil Absolute 0.20 0.00 - 0.60 x10E9/L 06/04/2024 1:31 PM [facility] Basophil Absolute 0.08 0.00 - 0.13 x10E9/L 06/04/2024 1:31 PM [facility] Blood BLOOD SPECIMEN / Unknown Venipuncture / Unknown 06/04/2024 1:20 PM UPPER LEATHER CUTTER 06/04/2024 1:28 PM [facility] Terra Wagner MD LAB - HEMATOLOGY ORD ERABLES [facility] [address] [place] [address] * (ABNORMAL) COMPREHENSIVE METABOLIC PANEL (06/04/2024 1:20 PM UPPER LEATHER CUTTER) [facility] Glucose 89 70 - 99 mg/dL 06/04/2024 1:44 PM [facility] Sodium 145 136 - 145 mmol/L 06/04/2024 1:44 PM [facility] Potassium 4.0 3.5 - 5.1 mmol/L 06/04/2024 1:44 PM [facility] Chloride 108(H) 98 - 107 mmol/L 06/04/2024 1:44 PM [facility] CO2 24 22 - 29 mmol/L 06/04/2024 1:44 PM [facility] Calcium 10.4 8.4 - 10.4 mg/dL 06/04/2024 1:44 PM UPPER LEATHER CUTTER [facility] Anion Gap 13 6 - 16 mmol/L 06/04/2024 1:44 PM UPPER LEATHER CUTTER [facility] BUN 9 7 - 26 mg/dL 06/04/2024 1:44 PM UPPER LEATHER CUTTER [facility] Creatinine 0.86 0.57 - 1.11 mg/dL 06/04/2024 1:44 PM UPPER LEATHER CUTTER [facility] Alkaline Phosphatase 57 40 - 150 U/L 06/04/2024 1:44 PM UPPER LEATHER CUTTER [facility] ALT 31 0 - 55 U/L 06/04/2024 1:44 PM [facility] AST 25 5 - 34 U/L 06/04/2024 1:44 PM [facility] Protein Total 8.7(H) 6.4 - 8.3 gm/dL 06/04/2024 1:44 PM [facility] Albumin 4.1 3.4 - 5.0 gm/dL 06/04/2024 1:44 PM [facility] Bilirubin Total 0.2 0.2 - 1.2 mg/dL 06/04/2024 1:44 PM [facility] eGFR by CKD-EPI 81(L) >=90 mL/min/1.7 3 m2 06/04/2024 1:44 PM [facility] Blood BLOOD SPECIMEN / Unknown Venipuncture / Unknown 06/04/2024 1:20 PM UPPER LEATHER CUTTER 06/04/2024 1:28 PM UPPER LEATHER CUTTER Terra Wagner MD LAB - CHEMISTRY [facility] Organization Address City/State/ZIP Co de Phone Number [facility] [address] [place] [address] * HCG BLOOD QUALITATIVE (06/04/2024 1:20 PM UPPER LEATHER CUTTER) HCG Qual Serum Negative Negative 06/04/2024 1:39 PM UPPER LEATHER CUTTER [facility] Blood BLOOD SPECIMEN / Unknown Venipuncture / Unknown 06/04/2024 1:20 PM UPPER LEATHER CUTTER 06/04/2024 1:28 PM UPPER LEATHER CUTTER Narrative [facility] - 06/04/2024 1:39 PM UPPER LEATHER CUTTER Specimens containing human anti-mouse antibodies may exhibit false positive or false negative results. If qualitative interpretation is inconsistent with clinical evaluation, consider confirmation by an alternative hCG method. Terra aWgner MD LAB - CHEMISTRY [place] [facility] [address] [place] [address] * ESTRADIOL (05/16/2024 3:05 PM UPPER LEATHER CUTTER) Estradiol 234.0 pg/mL [facility] ACCOUNT BILL Comment: ? Adult Female ? Range ?Follicular phase ? 12.5 - 166.0 ?Ovulation phase ?85.8 - 498.0 ?Luteal phase ? 43.8 - 211.0 ?Postmenopausal ? <6.0 - ??54.7 ?1st trimester ? 215.0 - >4300.0 Phong ECLIA methodology Blood BLOOD SPECIMEN / Unknown 05/16/2024 3:05 PM UPPER LEATHER CUTTER 05/16/2024 Comment:Blood Release to pat kathleen Narrative [facility] ACCOUNT BILL - 05/17/2024 1:10 PM UPPER LEATHER CUTTER Performed at: ??01 - [facility] [address] [facility], [place], [place] ??[id number] Sewing Demonstrator: Declan Drake PhD, Phone: ??[phone] Bernardo Lizarraga MD LAB - CHEMISTRY [place]EL [place]ELIX [facility] ACCOUNT BILL [address] [place] [address] * FSH + LH PANEL (05/16/2024 3:05 PM UPPER LEATHER CUTTER) LH 9.1 mIU/mL [facility] ACCOUNT BILL Comment: [...] BLOOD SPECIMEN / Unknown 05/16/2024 3:05 PM UPPER LEATHER CUTTER 05/16/2024 Comment:Blood Release to pat i Narrative [facility] ACCOUNT BILL - 05/17/2024 12:07 AM UPPER LEATHER CUTTER Performed at: ?? - [address], [place], [place] ??[id number] Sewing Demonstrator: Dillan Hernandez MD, Phone: ??[phone] Bernardo Lizarraga MD LAB - CHEMISTRY [place]EL [place]ELIX [facility] ACCOUNT BILL [address] [place] [address] * ENDOSCOPY, COLON, SCREENING (09/27/2023 9:15 AM CDT) Report Endoscopy POC _ Patient Name: Betina Coy ? Procedure Date: 09/27/2023 9:15 AM ? Date of : 1970 ?Admit Type: Outpatient Age: 53 ? Gender: Female Attending MD: Adama Holliday MD, [id number] _ Procedure: ? Colonoscopy Indications: ? Screening [...] ? preparation was evaluated using the BBPS ([place] Bowel ? Preparation Scale) with scores of: [...] Procedure Code(s): ? --- Professional --- ? 78661, Colonoscopy, flexible; diagnostic, including collection of ? specimen(s) by brushing or washing, when performed (separate procedure) ? --- Technical --- ? 39397, Colonoscopy, flexible; diagnostic, including collection of ? [...] abscess ? without bleeding CPT copyright 2020 [employer]. All rights reserved. The codes documented in this report are preliminary and upon label coder review may be revised to meet current compliance requirements. __ Adama Holliday MD 09/27/2023 10:47:51 AM Number of Addenda: 0 Note Initiated On: 09/27/2023 9:15 AM [facility] 09/27/2023 9:15 AM CDT Narrative Procedure Note Adama Holliday MD - 09/27/2023 10:48 AM CDT Colonoscopy done for screening. Normal colon other than diverticulosis.Repeat in 10 years for screening. Ricky Fuentes MD GI PROCEDURE ORDERA AMBER [facility] [place] [address] * PAP IG LB+HPV APTIMA (05/27/2023 4:44 PM UPPER LEATHER CUTTER) Diagnosis [facility] ACCOUNT BILL Comment:NEGATIVE FOR INTRAEP [...] UTERINE CERVIX / Unknown 05/27/2023 4:44 PM UPPER LEATHER CUTTER 05/31/2023 Narrative [facility] ACCOUNT BILL - 06/02/2023 10:12 AM UPPER LEATHER CUTTER No. of containers..01 ThinPrep Vial Resulting Agency Comment Lab Testing performed at: [address] ??[facility] [id number] Leatha Gupta MD LAB - PATHOLOGY/CYT OLOGY ORDERABLES [facility] ACCOUNT BILL [address] [place] [address] * (ABNORMAL) LIPID PROFILE (02/05/2023 9:29 AM [...] Resulting Agency Comment Lab Testing performed at: [facility] [address] ?? [facility] [id number] Celina Sifuentes MD LAB - CHEMISTRY O RDERABLES [facility] ACCOUNT BILL [address] [place] [address] * HIV-1 HIV-2 ANTIBODY + HIV P24 AG PANEL (02/05/2023 9:28 AM CDT) [facility] HIV Screen 4th Generation w Reflex Non Reactive Non Reactive [facility] ACCOUNT BILL Comment: HIV Negative HIV-1/HIV-2 antibodies and HIV-1 p24 antigen were NOT detected. There is no laboratory evidence of HIV infection. Blood BLOOD SPECIMEN / Unknown 02/05/2023 9:28 AM CDT 02/05/2023 Narrative Resulting Agency Comment Lab Testing performed at: [facility] ??[facility] [id number] Celina Sifuentes MD LAB - CHEMISTRY O RDTING Performing Organization Address City/[facility]/ZIP Co de Phone Number [facility] ACCOUNT BILL [address] [place] [address] * HEPATITIS C ANTIBODY (02/05/2023 9:28 AM CDT) Pathologist [facility] Hepatitis C Antibody Non Reactive Non Reactive [...] Lab Testing performed at: [facility] [address] ??[facility] [id number] Celina Sifuentes MD LAB - CHEMISTRY O RDERABLES [facility] ACCOUNT [place]ILL [place] [address] * (ABNORMAL) MAMMO BILAT DIAGNOSTIC W DONALD [...] be scheduled to return to the [facility] for biopsy . > Interpreting Provider: [...] BOTH breasts was performed by a trained toe pounder and by Dr. Maddi Landeros. BREAST PARENCHYMAL [...] Recently Relevant to Health Maintenance Care Teams Composite Assembler Relationship Specialty Start Date End Date Keisha Pineda PA [address] [place] [id number] PCP - General Physician [facility] 11/15/23 [place] [address] [place] [facility] [place] [phone] Surgical Oncologist Surgical Oncology 02/15/23 [place] [address] [facility] [place] [phone] Ecclesiastical Worker/Oncologist Hematology and Oncology 02/16/23
--- OUTSIDE RECORDS SUMMARY | 2024-07-02 04:41 | XMS_ITS | Encounter Summary ---
Author Organization [facility] Address [address] [place] [address] Care Team Providers Care Physical Anthropologist Name Role Phone HoracioNaya Irving DO Unavailable [phone] Bernardo Lizarraga MD Unavailable [phone] Celina Sifuentes MD Primary Care Provider [phone] Reason for Visit * Reason Comments Refill Request Encounter Details Date Type Department Care Team (Late st Contact Info) Description 10/10/[address] [facility] Cancer Care [address] [place] [address] [place] [address] [address] Refill Request Social History Tobacco Use Types Packs/Day Years Used Date Smoking Tobacco: Never Smokeless Tobacco: Never Alcohol Use Standard Drinks/Week Comments No 0 (1 standard drink = 0.6 oz pur e alcohol) PHQ-2 Answer Date Recorded Patient Health Questionnaire-2 Score 0 05/27/2023 Sex and Gender Information Value Date Recorded [...] st Contact Info) Description 07/19/2024 9:45 AM INSPECTOR SUBASSEMBLY Office Visit [facility] - VALVE GRINDER [address] [place] [address] Leatha Gupta MD [address] [place] [address] 12/11/2024 9:00 AM CDT Office Visit [facility] - Surgery [address] [place] [address], [address] [address] [place] [address] [address] 12/11/2024 10:40 AM CDT Office Visit [facility] Cancer Care [address] [place] [address] Bernardo Lizarraga MD [address] [place], [place] [address] [address] documented as of this encounter Visit Diagnoses Diagnosis Invasive ductal carcinoma of right breast (HCC) documented in this encounter Care Teams Physical Anthropologist Relationship Specialty Start Date End Date Celina Sifuentes MD [address] [place] [address] PCP - General Family Medicine 02/16/23 11/14/23 [place] [address] [place] [phone] Surgical Oncologist Surgical Oncology 02/15/23 [place] [address] [facility] [address] [place] [address] Equipment Sales Specialist/Oncologist Hematology and Oncology 02/16/23 documented as of this encounter
--- OUTSIDE RECORDS SUMMARY | 2024-07-02 04:41 | XMS_ITS | Encounter Summary ---
Author Organization [facility] Address [address] [place] [address] Care Team Providers Care Medical Claims Assistant Name Role Phone Naya Leonard DO Unavailable [phone] Bernardo Lizarraga MD Unavailable [phone] Celina Sifuentes MD Primary Care Provider [phone] Reason for Visit * Reason Comments Post-Op Bilat Mast Encounter Details Date Type Department Care Team (Late st Contact Info) Description 03/08/2023 9:00 AM CDT Office Visit [facility] - Surgery [address] [place] [address] [place] DO [id number] [place] [address] Postop check (Primary Dx); Vaginal yeast infection; Malignant neoplasm of female breast, unspecified estrogen receptor status, unspecified laterality, unspecified site of breast (HCC) Social History Tobacco Use Types Packs/Day Years Used Date Smoking Tobacco: Never Smokeless Tobacco: Never Tobacco Cessation:Counseling Given: No Alcohol Use Standard Drinks/Week Comments No 0 (1 standard drink = 0.6 oz pur e alcohol) PHQ-2 Answer Date Recorded Patient Health Questionnaire-2 Score 0 02/24/2023 Sex and Gender Information Value Date Recorded [...] - Inhaled Oxygen Concentration - - Weight 83.5 kg (184 lb) 03/08/2023 8:53 AM CDT Height 163.8 cm (5' 4.5 ) 03/08/2023 8:53 AM CDT Body Mass Index 31.1 03/08/2023 8:53 AM CDT documented in this encounter Patient Instructions * Patient Instructions* Coretta Mercado LPN - 03/08/2023 8:55 AM CDT Patient's medications and allergies were reviewed with the patient today. Patient was instructed tocontact primary care physician or ordering provider with any questions regarding medications. documented in this encounter Progress Notes * Naya Leonard DO - 03/08/2023 9:00 AM CDT Betina Coy is a 52 year old female who is here for a postoperative visit following (02/18/2023) 1. Right Simple Mastectomy 2. Injection of methylene blue dye to right breast 3. Right sentinel lymph node biopsy 4. Left Prophylactic Mastectomy Subsequent Incision and drainage, bilateral chest wall seroma with placement of Shalom drain, left chest wall; placement of Shalom drain, right chest wall on 02/25/[address] Melendez. Referring physician is Leatha Gupta MD. Reports minimal surgical pain. Denies any fever or chills. Patient reports some tenderness. reports light orange drainage from Shalom drain. Patient reports fatigue. Plans on resuming work mid March. Patient hesitant to start PT. Complains of a yeast infection Exam Bilateral Chest Wall incision, Clean and intact, healing well. No drainage or erythema noted. Blakedrains intact, removed today in office. Pathology: Final Diagnosis A. Left breast, prophylactic mastectomy: -- Lobular carcinoma in situ -- Fibrocystic changes -- Biopsy site changes ?? B. Right breast, mastectomy: -- Infiltrating ductal carcinoma, grade 2, size 1.5 -- Resection margins free of tumor (nearest deep 20 mm) -- Lymph-vascular invasion not identified -- Ductal carcinoma in situ, grade 2, with central necrosis and microcalcifications, margin negative (nearest deep 20 mm) -- Focal lobular carcinoma in situ -- Biopsy site changes -- Fibrocystic change in remainder of breast ?? C. Right axillary sentinel lymph node, biopsy: -- Negative for metastatic carcinoma (0/1) at 0909 A/P: PO Right simple mastectomy, left prophylactic mastectomy, right sentinel lymph node biopsy. I&D of bilateral chest was seroma with placement of bilateral Shalom drain. The patient is doing well, pathology reviewed and questions answered. Discussed having a plastic surgeon perform liposuction in future. Instructed patient to moisturize incision sites with vasoline. Shalom drains removed today in office. Diflucan prescribed for yeast infection. Will discuss breast prosthetics next visit. Patient referred to PT. Continue diet as tolerated Increase activity and exercise, avoid trauma to surgical site Call if any concerns; follow up 2 weeks. This document was scribed by Abel Grande for Dr. Naya Leonard I have reviewed the above note and verify that I was present during this visit and the information provided is accurate. documented in this encounter Plan of Treatment Upcoming Encounters Date Type Department Care Team (Late st Contact Info) Description 07/19/2024 9:45 AM OPERATIONS INTERN Office Visit [facility] - ACCOUNT TECHNICIAN [address] [place] [address] Leatha Gupta MD [facility] [place] [address] 12/11/2024 9:00 AM CDT Office Visit [facility] - Surgery [address] [place] [address], [address] [place] [phone] Naya Leonard DO [address] [place] [phone] 12/11/2024 10:40 AM CDT Office Visit [facility] Cancer [facility] [address] [facility] [address] [place] [phone] [place] [address] [address] [place] [phone] documented as of this encounter Visit Diagnoses Diagnosis Postop check- Primary Follow-up examination, following unspecified surgery Vaginal yeast infection Candidiasis of vulva and vagina Malignant neoplasm of female breast, unspecified estrogen receptor status, unspecified laterality, unspecified site of breast (HCC) documented in this encounter Care Teams Medical Claims Assistant Relationship Specialty Start Date End Date Celina Sifuentes MD [address] [place] [address] PCP - General Family Medicine 02/16/23 11/14/23 [place] [address] [address] [place] [phone] Surgical Oncologist Surgical Oncology 02/15/23 [place] [address] [address] [place] [phone] Canopy Inspector/Oncologist Hematology and Oncology 02/16/23 documented as of this encounter
--- OUTSIDE RECORDS SUMMARY | 2024-07-02 04:41 | XMS_ITS | Encounter Summary ---
Author Organization [facility] Address [address] [place] [address] Care Team Providers Care Cisco Network Engineer Name Role Phone Naya Leonard Irving DO Unavailable [phone] Bernardo Lizarraga MD Unavailable [phone] Celina Sifuentes MD Primary Care Provider [phone] Reason for Visit * Reason Comments Post-Op Bilat Mast CHANI drain placement Encounter Details Date Type Department Care Team (Late st Contact Info) Description 03/03/2023 10:00 AM CDT Office Visit [facility] - Surgery [address] [place] [address], [address] [address] Ernesto Melendez MD [address] [place] [phone] Postop check (Primary Dx) Social History [...] - - Weight 83.5 kg (184 lb) 03/03/2023 10:02 AM CDT Height 163.8 cm (5' 4.5 ) 03/03/2023 10:02 AM CD T Body Mass Index 31.1 03/03/2023 10:02 AM CDT documented in this encounter Patient Instructions * Patient Instructions* Coretta Mercado LPN - 03/03/2023 10:03 AM CDT Patient's medications and allergies were reviewed with the patient today. Patient was instructed tocontact primary care physician or ordering provider with any questions regarding medications. documented in this encounter Progress Notes * Ernesto Melendez MD - 03/03/2023 10:00 AM CDT Betina Coy is a 52 year old female who is here for a postoperative visit (surgery performed by Dr. Leonard) The patient had malfunction of her drains in the immediate postoperative. I replaced the drains andevacuated the seromas on 02/25/2023. She is still having about 40 cc a day out of each drain. No sign of infection. Patient desires not to go back to physical therapy since she is doing so well. Seeing medical oncology March 17. Patient will continue with the Shalom drains. Return to see Dr. Leonard next week documented in this encounter Plan of Treatment Upcoming Encounters Date Type Department Care Team (Late st Contact Info) Description 07/19/2024 9:45 AM WORK CHECKER Office Visit [facility] - RECREATION THERAPY AIDE [address] [phone] Leatha Gupta MD [address] [place] [place] [phone] 12/11/2024 9:00 AM CDT Office Visit [facility] Medical [facility] - Surgery [address] [facility], [address] [place] [address] [place] [address] [address] [facility] [address] [place] [address] 12/11/2024 10:40 AM CDT Office Visit [facility] Cancer [facility] [address] [facility] [address] [place] [address] [place] [address] [address] [facility] [address] [place] [address] documented as of this encounter Visit Diagnoses Diagnosis Postop check- Primary Follow-up examination, following unspecified surgery documented in this encounter Care Teams Cisco Network Engineer Relationship Specialty Start Date End Date Celina Sifuentes MD [address] [place] [phone] PCP - General Family Medicine 02/16/23 11/14/23 [place] [address] [address] [facility] [address] [place] [address] Surgical Oncologist Surgical Oncology 02/15/23 [place] [address] [address] [facility] [address] [place] [address] Clothes Separator/Oncologist Hematology and Oncology 02/16/23 documented as of this encounter
--- OUTSIDE RECORDS SUMMARY | 2024-07-02 04:41 | XMS_ITS | Encounter Summary ---
Author Organization [facility] Address [address] [facility] [place] [address] Care Team Providers Care Accounting Manager Assistant Controller Name Role Phone HoracioNaya Irving DO Unavailable [phone] Bernardo Lizarraga MD Unavailable [phone] Celina Sifuentes MD Primary Care Provider [phone] Reason for Visit * Reason Comments Post-Op Bilat Mast Encounter Details Date Type Department Care Team (Latest Contact Info) Description 03/10/2023 2:00 PM CDT Clinical Support [facility] - Surgery [address] [place] [address], [address] [address] Surgery follow-up ; Postop check; S/P bilateral mastectomy Social History Tobacco Use Types Packs/Day Years [...] - - Weight 83.5 kg (184 lb) 03/10/2023 1:52 PM CDT Height 163.8 cm (5' 4.5 ) 03/10/2023 1:52 PM CDT Body Mass Index 31.1 03/10/2023 1:52 PM CDT documented in this encounter Patient Instructions * Patient Instructions* Coretta Mercado LPN - 03/10/2023 1:53 PM CDT Patient's medications and allergies were reviewed with the patient today. Patient was instructed tocontact primary care physician or ordering provider with any questions regarding medications. documented in this encounter Progress Notes * Coretta Mercado LPN - 03/10/2023 1:53 PM CDT Pt. Called earlier today worried that she was having a lot of drainage from sites where CHANI drains were removed earlier this week and that fluid was building up in the mastectomy sites. Pt came to office for evaluation. Pt. Has no fluid collecting at mastectomy sites. Does have some drainage from JPdrain sites. Told pt does not appear infected or abnormal. Instructed pt to change the bandage whensaturated. Instructed pt on s/s of infection and to call the office. Pt. Verbalized understanding. documented in this encounter Plan of Treatment Upcoming Encounters Date Type Department Care Team (Late st Contact Info) Description 07/19/2024 9:45 AM FRONT OFFICE ADMINISTRATOR Office Visit [facility] - YARD LOADER OPERATOR [address] [place] [address] Leatha Gupta MD [address] [place] [address] 12/11/2024 9:00 AM CDT Office Visit [facility] - Surgery [address] [address] [place]aya Leonard [place] [address] [place] [address] 12/11/2024 10:40 AM CDT Office Visit [facility] [address] [facility] [address] [place] [address] [place] [address] [address] [place] [address] documented as of this encounter Visit Diagnoses Diagnosis Surgery follow-up- Primary Follow-up examination, following unspecified surgery Postop check Follow-up examination, following unspecified surgery S/P bilateral mastectomy Acquired absence of breast and nipple documented in this encounter Care Teams Accounting Manager Assistant Controller Relationship Specialty Start Date End Date Celina Sifuentes MD [address] [place] [phone] PCP - General Family Medicine 02/16/23 11/14/23 [place] [address] [address] [place] [address] Surgical Oncologist Surgical Oncology 02/15/23 [place] [address] [address] [facility] [address] [place] [address] Production Support Consultant/Oncologist Hematology and Oncology 02/16/23 documented as of this encounter
--- OUTSIDE RECORDS SUMMARY | 2024-07-02 04:41 | XMS_ITS | Encounter Summary ---
Author Organization [facility] Address [address] [place] [address] Care Team Providers Care Human Services Instructor Name Role Phone Naya Leonard DO Unavailable [phone] Bernardo Lizarraga MD Unavailable [phone] Keisha Pineda Primary Care Pr ovider Reason for Visit * Auth/Cert (Routine) Specialty Diagnoses / Procedures Referred By Sherie jacobo Referred To Contact Diagnoses Mass in chest Mass in chest [R22.2] Procedures TX EXC SKIN BENIG 3.1-4CM TRUNK,ARM,LEG EXCISION LESION TRUNK CHEST/AXILLA Referral ID Status Reason Start Date Expiration Date Visits Re quested Visits Authorized [id number] 1 1 Encounter Details Date Type Department Care Team (Latest Contact Info) Description 11/30/2023 9:09 AM CDT - 11/30/2023 11:59 PM T Hospital Encounter [facility] - General Surgery [address] [place] [address] [address] [place] [address] [place] [address] [facility] [address] [place] [address] Surgery General Discharge Disposition: Home or Self Care Social [...] Sign Reading Time Taken Comments Blood Pressure 104/59 11/30/2023 12:20 PM CDT Pulse 67 11/30/2023 12:20 PM CDT Temperature 36.3 ??C (97.3 ??F) 11/30/2023 11:51 AM C DT Respiratory Rate 15 11/30/2023 12:20 PM CDT Oxygen Saturation 96% 11/30/2023 12:20 PM CDT Inhaled Oxygen Concentration - - Weight 77.4 kg (170 lb 9.6 oz) 11/30/2023 9:33 A M CDT Height 163.8 cm (5' 4.5 ) 11/30/2023 9:33 AM CDT Body Mass Index 28.83 11/30/2023 9:33 AM CDT documented in this encounter Functional Status [...] No 06/08/2023 documented as of this encounter Medications at Time of Discharge Medication Sig Dispensed Refills Start Date End Date HYDROcodone-acetamino phen ([place]) 5-325 MG tabletIndications:Inv asive ductal carcinoma of right breast (HCC),Chest wall mass Take 1 (one) tablet by mouth every 6 hours as needed for Pain 10 tablet 11/30/2023 05/16/2024 Other Take 1 Each by mouth once daily Micro-Rev Immune (mushroom) 05/16/2024 Other Take 1 Each by mouth once daily Cruciferous Complete (Veggie) 05/16/2024 Other Take 1 Each by mouth once daily Adrenal L.F. (adrenal + thyroid function) 05/16/2024 Other Take 1 Each by mouth once daily Cholaplex (cardio health) 05/16/2024 Other Take 1 Each by mouth once daily Solray-D+Vit K2 (spray) 05/16/2024 Other Take 1 Each by mouth once daily Soybean Lecithin (cognitive function) 05/16/2024 tamoxifen (Nolvadex) 20 MG tabletIndications:Mal ignant Neoplasm of Breast Take 1 (one) tablet by mouth once daily Reasons: Cancer of the Breast 90 tablet 1 10/11/2023 03/15/2024 documented as of this encounter H&P Notes * Naya Leonard DO - 11/30/2023 9:21 AM CDT This patient? s prior H&P was reviewed, the patient was examined and no change has occurred in the patient's condition since the prior H&P was completed. Naya Leonard DO Source Note - Naya Leonard DO - 11/29/2023 4:10 PM CDT Images from the original note were not included. Chief Complaint Breast cancer follow up History and Physical Betina Coy is a 53 year old female who is referred by No ref. provider found presents today for follow up for her cancer. Patient underwent diagnostic imaging 12/2022 which revealed a suspicious hypoechoic mass in the 11:00 position of the right and an 11.5 cm group of segmental pleomorphic micro-calcifications is seen in superior aspect of the right breast. Patient underwent ultrasound and stereotactically guided right breast biopsies by radiology on 01/06/2023. The mass at the 11 o'clock position revealed an infiltrating ductal carcinoma ER/TX positive, HER2/brittany negative with low KI 67. The calcifications revealedDCIS, ER/TX positive. Patient underwent breast MRI which showed multifocal/multicentric biopsy-proven malignancy in the RIGHT breast. Patient underwent Right Simple Mastectomy, Right sentinel lymph no de biopsy, and Left Prophylactic Mastectomy 02/18/2023. Final pathology did reveal in the left breast Lobular carcinoma in situ. Patient underwent bilateral breast reconstruction with Dr. Mccoy May 2023. Patient follows with Dr. Bernardo Lizarraga of medical oncology and is on tamoxifen 20mg daily - plan for 5 years (03/2028), oncotype score was 21. Patient was seen by 1 of my colleagues last month for a palpable mass in the left upper outer chest. Ultrasound was done in office that revealed likely fat necrosis. Plastic surgery deferred to breast surgery. She states over the past couple weeks it has gotten larger and is tender. Otherwise she is very happy with the cosmetic outcome after her mastectomy. In Review Age of menarche was 12 Menstrual periods are regular Patient Denies hormonal therapy. Patient Admits to oral contraceptive use. 23 years Patient is . Age of first live was 22. Patient did not breast feed. Admits to previous breast aspiration for a benign cyst but no other breast surgeries. Family history significant for paternal grandmother with breast cancer. Past Medical History: Diagnosis Date Breast CA [...] STEREOTACTIC RIGHT BIOPSY 01/06/2023 [facility] MASTECTOMY, SIMPLE Bilateral 02/18/2023 Bilateral; RIGHT SIMPLE MASTECTOMY, RIGHT SENTINEL LYMPH NODE BX, LEFT PROPHYLACTIC MASTECTOMY NEEDLE BIOPSY Right 10'18 right breast 2 cyst aspirations OTHER SURGERY breast cyst aspiration PLASTIC SURGERY PROCEDURE N/A 06/08/2023 N/A; FAT GRAFTING FROM ADBOMEN AND LOCAL TISSUE REARRANGEMENT US BREAST RIGHT BIOPSY Right 01/06/2023 US BREAST RIGHT BIOPSY 01/06/2023 [facility] US Outpatient Medications Marked as Taking for the 11/30/23 encounter (Hospital Encounter) Medication Sig Dispense Refill Other Take 1 Each by mouth once daily Micro-Rev Immune (mushroom) Other Take 1 Each by mouth once daily Cruciferous Complete (Veggie) Other Take 1 Each by mouth once daily Adrenal L.F. (adrenal + thyroid function) Other Take 1 Each by mouth once daily Cholaplex (cardio health) Other Take 1 Each by mouth once daily Solray-D+Vit K2 (spray) Other Take 1 Each by mouth once daily Soybean Lecithin (cognitive function) tamoxifen (Nolvadex) 20 MG tablet Take 1 (one) tablet by mouth once daily Reasons: Cancer of the Breast 90 tablet 1 No Known Allergies Social History Tobacco Use Smoking status: Never Smokeless tobacco: Never Vaping Use Vaping Use: Never used Substance Use Topics Alcohol use: No Drug use: Never Family History Problem Relation Name Age of Onset Other Mother breast cyst Cancer - Breast Paternal Grandmother Physical Exam General: stated age, healthy, alert, in no distress Eyes: Pupils equal round reactive, non icterus Lymph: Cervical, supraclavicular, and axillary nodes normal. Heart: regular rate and rhythm Lungs: clear to auscultation, no wheezes or rales and unlabored breathing Abdomen: soft Extremities: normal strength, tone, and muscle mass Neuro: Grossly intact Skin: WNL. Breast: Right: S/p mastectomy without obvious masses. Well-healed scar Left: S/p mastectomy with well-healed scar palpable 3 cm mass in the upper outer chest wall just inferior to the clavicle. Suspect fat necrosis Imaging Review Results for orders placed during the hospital encounter of 12/30/22 MAMMO BILAT DIAGNOSTIC W DONALD Narrative EXAMINATION: DIGITAL MAMMO BILAT DIAGNOSTIC W DONALD, US BREAST BILATERAL LTD DATE: 12/30/2022 HISTORY: This 52-year-old with a palpable lump in the upper outer quadrant of the left breast. COMPARISON: 03/17/2022, 12/24/2021, 05/22/2020, 01/05/2019 TECHNIQUE: Full field digital mammographic views of BOTH breasts were performed, including computer aided detection (CAD) and BILATERAL digital breast tomosynthesis (DBT). Directed ultrasound evaluation of BOTH breasts was performed by a trained iron worker apprentice and by Dr. Maddi Landeros. BREAST PARENCHYMAL COMPOSITION: The breasts are heterogenously [...] also seen near this irregular hypoechoic mass. Impression : 1. The area palpable concern in [...] above findings and recommendations with the patient. She will be scheduled to return to the [facility] for biopsy . > Interpreting Provider: Maddi Landeros MD on 12/30/2022 12:44 PM Results for orders placed during the hospital encounter of 01/19/23 MRI BREAST BILAT WWO CONTRAST Narrative EXAMINATION: 1. MRI EXAMINATION OF THE BREASTS [...] Breast MRI is requested for surgical planning. DATE OF LAST MENSTRUAL PERIOD: 12/24/2022 TECHNIQUE: MRI examination of the breasts per breast tumor protocol with and without gadolinium contrast. A dedicated breast imaging coil was used. The images were transferred to a breast CAD system for 3D post processing and contrast kinetics analysis. CONTRAST: Dotarem, 19 ml COMPARISON: There is [...] suspicious lymph nodes in the left axilla. Impression : 1. The MRI findings are consistent [...] Angie Castelan MD on 01/20/2023 4:47 PM Pathology Review Final Diagnosis A. Right breast mass, 11 o'clock 8 cm from nipple, core biopsy: -- Infiltrating ductal carcinoma -- Involving cores of tissue -- 3 mm maximum contiguous extent (minimum tumor size) -- [place] grade 1 of 3 -- Moderate tubule formation (score 2) -- Moderate nuclear pleomorphism (score 2) -- 1 mitoses per 10 HPF (score 1) Total score 5 = Grade 1 -- Negative for lymph-vascular invasion -- In situ carcinoma not demonstrated -- Therapeutic biomarkers pending B. Right breast calcifications, medial anterior, core biopsy: -- Ductal carcinoma in situ, solid and cribriform types, intermediate grade, with central necrosis and microcalcifications -- DCIS present in multiple fragments -- Therapeutic biomarkers pending at 1011 Addendum 1 The results of breast prognostic factors by immunohistochemical stains with appropriate controls are as follows: Specimen A (right breast at 11:00): ER: Positive ( 70 %, moderate intensity) TX: Positive ( 90 %, strong intensity) Her-2-brittany: Not over-expressed (score 1+) Ki-67: Low proliferation/favorable ( 3 %) Specimen B (right breast calcifications): ER: Positive ( >95 %, strong intensity) TX: Positive ( 50 %, moderate intensity) Final Diagnosis A. Left breast, prophylactic mastectomy: -- Lobular carcinoma in situ -- Fibrocystic changes -- Biopsy site changes B. Right breast, mastectomy: -- Infiltrating ductal carcinoma, grade 2, size 1.5 -- Resection margins free of tumor (nearest deep 20 mm) -- Lymph-vascular invasion not identified -- Ductal carcinoma in situ, grade 2, with central necrosis and microcalcifications, margin negative (nearest deep 20 mm) -- Focal lobular carcinoma in situ -- Biopsy site changes -- Fibrocystic change in remainder of breast C. Right axillary sentinel lymph node, biopsy: -- Negative for metastatic carcinoma (0/1) at 0950 Addendum 2 See attached report. Addendum electronically signed by Mallory Mina MD on 03/09/2023 at 1728 Addendum 1 A request for Oncotype DX was received 03/01/[address] Lizarraga. The pathology reports, slides, and blocks from this case were retrieved from the archives and were reviewed by Dr. Blount who selected a block with an adequate amount of tissue to perform the ordered test. The results of the molecular testwill be issued in a separate report. Addendum electronically signed by Sarah Blount MD on 03/01/2023 at 1312 Treatment Review Right breast mastectomy, right SLN biopsy, left prophylactic mastectomy 02/18/2023 tamoxifen 20mg daily - plan for 5 years (03/2028) Scar revision by Plastic surgery Assessment Right IDC (ER/TX+ HER2/brittany negative) and DCIS (ER/TX+) Left breast LCIS Stage I A Left chest wall mass, 3 cm Plan Discussed physical exam findings as well as treatment plan with the patient. She is very happy withher overall appearance of her bilateral mastectomy and is doing well. She does have this area of concern in the left upper chest that is bothering some. I did discuss with her it is likely fat necrosis but due to the size and obvious appearance. Will recommend excision. She agrees to this. She wants it removed. Plan for left chest wall excision of 3 cm mass under local MAC at her convenience. * Naya Leonard DO - 11/29/2023 4:10 PM CDT Images from the original note were not included. Chief Complaint Breast cancer follow up History and Physical Betina Coy is a 53 year old female who is referred by No ref. provider found presents today for follow up for her cancer. Patient underwent diagnostic imaging 12/2022 which revealed a suspicious hypoechoic mass in the 11:00 position of the right and an 11.5 cm group of segmental pleomorphic micro-calcifications is seen in superior aspect of the right breast. Patient underwent ultrasound and stereotactically guided right breast biopsies by radiology on 01/06/2023. The mass at the 11 o'clock position revealed an infiltrating ductal carcinoma ER/TX positive, HER2/brittany negative with low KI 67. The calcifications revealedDCIS, ER/TX positive. Patient underwent breast MRI which showed multifocal/multicentric biopsy-proven malignancy in the RIGHT breast. Patient underwent Right Simple Mastectomy, Right sentinel lymph no de biopsy, and Left Prophylactic Mastectomy 02/18/2023. Final pathology did reveal in the left breast Lobular carcinoma in situ. Patient underwent bilateral breast reconstruction with Dr. Mccoy May 2023. Patient follows with Dr. Bernardo Lizarraga of medical oncology and is on tamoxifen 20mg daily - plan for 5 years (03/2028), oncotype score was 21. Patient was seen by 1 of my colleagues last month for a palpable mass in the left upper outer chest. Ultrasound was done in office that revealed likely fat necrosis. Plastic surgery deferred to breast surgery. She states over the past couple weeks it has gotten larger and is tender. Otherwise she is very happy with the cosmetic outcome after her mastectomy. In Review Age of menarche was 12 Menstrual periods are regular Patient Denies hormonal therapy. Patient Admits to oral contraceptive use. 23 years Patient is . Age of first live was 22. Patient did not breast feed. Admits to previous breast aspiration for a benign cyst but no other breast surgeries. Family history significant for paternal grandmother with breast cancer. Past Medical History: Diagnosis Date Breast CA [...] RIGHT BIOPSY 01/06/2023 [facility] US Outpatient Medications Marked as Taking for the 11/30/23 encounter (Hospital Encounter) Medication Sig Dispense Refill Other Take 1 Each by mouth once daily Micro-Rev Immune (mushroom) Other Take 1 Each by mouth once daily Cruciferous Complete (Veggie) Other Take 1 Each by mouth once daily Adrenal L.F. (adrenal + thyroid function) Other Take 1 Each by mouth once daily Cholaplex (cardio health) Other Take 1 Each by mouth once daily Solray-D+Vit K2 (spray) Other Take 1 Each by mouth once daily Soybean Lecithin (cognitive function) tamoxifen (Nolvadex) 20 MG tablet Take 1 (one) tablet by mouth once daily Reasons: Cancer of the Breast 90 tablet 1 No Known Allergies Social History Tobacco Use Smoking status: Never Smokeless tobacco: Never Vaping Use Vaping Use: Never used Substance Use Topics Alcohol use: No Drug use: Never Family History Problem Relation Name Age of Onset Other Mother breast cyst Cancer - Breast Paternal Grandmother Physical Exam General: stated age, healthy, alert, in no distress Eyes: Pupils equal round reactive, non icterus Lymph: Cervical, supraclavicular, and axillary nodes normal. Heart: regular rate and rhythm Lungs: clear to auscultation, no wheezes or rales and unlabored breathing Abdomen: soft Extremities: normal strength, tone, and muscle mass Neuro: Grossly intact Skin: WNL. Breast: Right: S/p mastectomy without obvious masses. Well-healed scar Left: S/p mastectomy with well-healed scar palpable 3 cm mass in the upper outer chest wall just inferior to the clavicle. Suspect fat necrosis Imaging Review Results for orders placed during the hospital encounter of 12/30/22 MAMMO BILAT DIAGNOSTIC W DONALD Narrative EXAMINATION: DIGITAL MAMMO BILAT DIAGNOSTIC W DONALD, US BREAST BILATERAL LTD DATE: 12/30/2022 HISTORY: This 52-year-old with a palpable lump in the upper outer quadrant of the left breast. COMPARISON: 03/17/2022, 12/24/2021, 05/22/2020, 01/05/2019 TECHNIQUE: Full field digital mammographic views of BOTH breasts were performed, including computer aided detection (CAD) and BILATERAL digital breast tomosynthesis (DBT). Directed ultrasound evaluation of BOTH breasts was performed by a trained iron worker apprentice and by Dr. Maddi Landeros. BREAST PARENCHYMAL COMPOSITION: The breasts are heterogenously [...] also seen near this irregular hypoechoic mass. Impression : 1. The area palpable concern in [...] above findings and recommendations with the patient. She will be scheduled to return to the [facility] for biopsy . > Interpreting Provider: Maddi Landeros MD on 12/30/2022 12:44 PM Results for orders placed during the hospital encounter of 01/19/23 MRI BREAST BILAT WWO CONTRAST Narrative EXAMINATION: 1. MRI EXAMINATION OF THE BREASTS [...] Breast MRI is requested for surgical planning. DATE OF LAST MENSTRUAL PERIOD: 12/24/2022 TECHNIQUE: MRI examination of the breasts per breast tumor protocol with and without gadolinium contrast. A dedicated breast imaging coil was used. The images were transferred to a breast CAD system for 3D post processing and contrast kinetics analysis. CONTRAST: Dotarem, 19 ml COMPARISON: There is [...] suspicious lymph nodes in the left axilla. Impression : 1. The MRI findings are consistent [...] Angie Castelan MD on 01/20/2023 4:47 PM Pathology Review Final Diagnosis A. Right breast mass, 11 o'clock 8 cm from nipple, core biopsy: -- Infiltrating ductal carcinoma -- Involving cores of tissue -- 3 mm maximum contiguous extent (minimum tumor size) -- [place] grade 1 of 3 -- Moderate tubule formation (score 2) -- Moderate nuclear pleomorphism (score 2) -- 1 mitoses per 10 HPF (score 1) Total score 5 = Grade 1 -- Negative for lymph-vascular invasion -- In situ carcinoma not demonstrated -- Therapeutic biomarkers pending B. Right breast calcifications, medial anterior, core biopsy: -- Ductal carcinoma in situ, solid and cribriform types, intermediate grade, with central necrosis and microcalcifications -- DCIS present in multiple fragments -- Therapeutic biomarkers pending at 1011 Addendum 1 The results of breast prognostic factors by immunohistochemical stains with appropriate controls are as follows: Specimen A (right breast at 11:00): ER: Positive ( 70 %, moderate intensity) TX: Positive ( 90 %, strong intensity) Her-2-brittany: Not over-expressed (score 1+) Ki-67: Low proliferation/favorable ( 3 %) Specimen B (right breast calcifications): ER: Positive ( >95 %, strong intensity) TX: Positive ( 50 %, moderate intensity) Final Diagnosis A. Left breast, prophylactic mastectomy: -- Lobular carcinoma in situ -- Fibrocystic changes -- Biopsy site changes B. Right breast, mastectomy: -- Infiltrating ductal carcinoma, grade 2, size 1.5 -- Resection margins free of tumor (nearest deep 20 mm) -- Lymph-vascular invasion not identified -- Ductal carcinoma in situ, grade 2, with central necrosis and microcalcifications, margin negative (nearest deep 20 mm) -- Focal lobular carcinoma in situ -- Biopsy site changes -- Fibrocystic change in remainder of breast C. Right axillary sentinel lymph node, biopsy: -- Negative for metastatic carcinoma (0/1) at 0950 Addendum 2 See attached report. Addendum electronically signed by Mallory Mina MD on 03/09/2023 at 1728 Addendum 1 A request for Oncotype DX was received 03/01/[address] Lizarraga. The pathology reports, slides, and blocks from this case were retrieved from the archives and were reviewed by Dr. Blount who selected a block with an adequate amount of tissue to perform the ordered test. The results of the molecular testwill be issued in a separate report. Addendum electronically signed by Sarah Blount MD on 03/01/2023 at 1312 Treatment Review Right breast mastectomy, right SLN biopsy, left prophylactic mastectomy 02/18/2023 tamoxifen 20mg daily - plan for 5 years (03/2028) Scar revision by Plastic surgery Assessment Right IDC (ER/TX+ HER2/brittany negative) and DCIS (ER/TX+) Left breast LCIS Stage I A Left chest wall mass, 3 cm Plan Discussed physical exam findings as well as treatment plan with the patient. She is very happy withher overall appearance of her bilateral mastectomy and is doing well. She does have this area of concern in the left upper chest that is bothering some. I did discuss with her it is likely fat necrosis but due to the size and obvious appearance. Will recommend excision. She agrees to this. She wants it removed. Plan for left chest wall excision of 3 cm mass under local MAC at her convenience. documented in this encounter OR Notes * Operative - Naya Leonard DO - 11/30/2023 11:31 AM CDT This procedure was not performed to treat primary cutaneous melanoma through wide local excision Operative Note Date: 11/30/2023 Preoperative Diagnosis: Left chest wall mass Operative Diagnosis: Same Procedure: 1. Excision of left chest wall 2 cm mass Surgeon: Naya Leonard DO Type of anesthesia: MAC Specimens: 1. Chest wall mass Complications: none EBL: 20 cc Drains: none Brief findings: Left chest wall mass, completely excised. Description of Procedure: 53 year old female explained risks and benefits of excision left chest wall. Patient voiced understanding of procedure. Consent was obtained and placed in the chart. Patientwas then transferred to the operating room where she was placed in a supine position. A single dose of Ancef 2g was administered intravenously prior to incision. A member of the anesthesia team performed MAC anesthesia. The patient was then prepped and draped in a sterile fashion with the pre-operative skin marking able to be viewed. A time-out was performed identifying the patient's name, procedure, and surgeon. Attention was then focused on the mass and local anesthetic for a total of 20 cc was injected. A transverse incision was made using 15 blade scalpel and carried through the dermis using electrocautery. The mass was completely excised circumferentially from surrounding tissue. The specimen was then handed off for pathology. Attention was then turned to the wound. Aggressive hemostasis was obtained with electrocautery. Thewound was irrigated with copious amounts of sterile saline. The deep dermal layer was then reapproximated with interrupted 3-0 Vicryl sutures. The skin was then approximated with a running subcuticular using 4-0 Monocryl. Surgical glue dressing was applied. At the end of the procedure all counts were reported to be correct x2. Patient tolerated this procedure well and was then transferred to the recovery room after awakening. documented in this encounter Plan of Treatment Upcoming Encounters Date Type Department Care Team (Late st Contact Info) Description 07/19/2024 9:45 AM STRAIGHT LINE EDGER Office Visit [facility] - ANALYTIC MANAGER [address] [place] [id number] Leatha Gupta MD [address] [place] [id number] 12/11/2024 9:00 AM CDT Office Visit [facility] - Surgery [id number] [place] [address], [address] [place] [id number] [place] [address] [facility] [address] [place] [address] 12/11/2024 10:40 AM CDT Office Visit [facility] Care [address] [place] [address] [place] [address] [facility] [address] [place] [address] documented as of this encounter Procedures Procedure Name Priority Date/Time Associated Diagnosis Comments PATHOLOGY TISSUE EXAM (STL) Routine 11/30/2023 11:34 AM CDT Mass in chest TX EXC SKIN BENIG 3.1-4CM TRUNK,ARM,LEG 11/30/2023 10:50 AM CDT Mass in chest HCG URINE QUAL POCT NOTIFICATION Routine 11/30/2023 10:30 AM CDT Preop examination HCG URINE QUALITATIVE - POCT (IP) INTERFACED Routine 11/30/2023 9:32 AM CDT documented in this encounter Results * PATHOLOGY TISSUE EXAM (STL) (11/30/2023 11:34 AM CDT) Case Report Surgical Pathology Report ? Case: [id number] ? Authorizing Provider: ??Naya Leonard DO ? Collected: ? 11/30/2023 11:34 AM ? Ordering Location: ? [facility] - Received: ?11/30/2023 01:51 PM ? General Surgery ? Pathologist: ? Sarah Blount MD ? Specimen: ?Chest Mass, chest wall mass ? 12/02/2023 8:47 AM T [facility] Final Diagnosis Left chest wall mass, excision: -- Adipose connective tissue with fat necrosis and foreign body reaction 12/02/2023 8:47 AM [facility] Gross Description Received in formalin in a single container, labeled Betina Coy, left chest wall mass, are two fragments of a disrupted fibromembranous tissue fragment, measuring 2.5 x 2.2 x 1.2 cm in aggregate. Sections show a gritty yellow-hurtado adipose tissue. Advertising Manager sections are submitted in cassette A1. CH/tc 12/02/2023 8:47 AM T [facility] Microscopic Description Microscopic examination substantiates the above cited diagnosis. 12/02/2023 8:47 AM [facility] Disclaimer All histochemical and/or immunohistochemical results are interpreted with controls that demonstrate appropriate staining reactions before reporting results. Note on use of immunocytochemistry reagents: This test was developed and its performance characteristic determined by [facility], Department of Laboratory Medicine. It has not [...] interpreted with caution. 12/02/2023 8:47 AM CDT [facility] Embedded Images 12/02/2023 8:47 AM CDT [facility] Pathology/Cytolo gy MASS OF CHEST WALL / Unknown 11/30/2023 11:34 AM CDT 11/30/2023 1:51 PM CDT Comment:Pre-op diagnosis: Mass in chest [R22.2] Naya Leonard DO LAB - PATHOLOGY/CYTO LOGY ORDERABLES Performing Organization Address [facility] Co de Phone Number [facility] [address] [place] [address] * HCG URINE QUAL POCT NOTIFICATION (11/30/2023 10:30 AM CDT) Comment Notification Label Only - See Separate Report 11/30/2023 10:30 AM CDT [facility] Urine URINE / Unknown 9:29 AM CDT Ricarda Zarate DO LAB - URINALYSIS ORD ERABLES Performing Organization Address [facility] de Phone Number [facility] [address] [place] [address] * HCG URINE QUALITATIVE - POCT (IP) INTERFACED (11/30/2023 9:32 AM CDT) HCG Qual Urine Negative Negative 11/30/2023 9:38 AM CDT [facility] Urine URINE / Unknown 11/30/2023 9 :32 AM CDT 11/30/2023 9:38 AM CDT Naya Leonard DO LAB - POINT OF CARE ORDERABLES Performing Organization Address [facility] Co de Phone Number [facility] [address] [place] [address] documented in this encounter Visit Diagnoses Diagnosis Chest wall mass- Primary Swelling, mass, or lump in chest Preop examination Preoperative examination, unspecified Invasive ductal carcinoma of right breast (HCC) Mass in chest Swelling, mass, or lump in chest documented in this encounter Administered Medications Inactive Administered Medications - up to 3 most recent administrations Medication Order MAR Action Action Date Dose Rate Site acetaminophen (Tylenol) tablet 1,000 mg 1,000 mg, Oral, PRE-OP ONCE, 1 dose, On Wed11/30/23 at 0930, Patient preference for lesser PRN pain meds [...] oral first unless patient cannot tolerate oral intake, Pre-op $ Given 11/30/2023 9:45 AM CDT 1,000 mg famotidine (Pepcid) injection 20 mg 20 mg, Intravenous, PRE-OP ONCE, 1 dose, On Wed11/30/23 at 0930, Dilute with 0.9% NaCl, D5W solution, or SWI to a volume of 5 to 10 mL and administer over at least 2 minutes., Pre-op $ Given 11/30/2023 9:58 AM CDT 20 mg lactated ringers infusion at 20 mL/hr, Intravenous, PRE-OP CONTINUOUS, Starting on Wed11/30/23 at 0930, Until Wed12/01/23 at 0122, Pre-op Restarted 11/30/2023 11:48 AM CDT $ New Bag/Syringe 11/30/2023 9:49 AM CDT 20 mL/ hr lidocaine PF (Xylocaine MPF) 1 % injection 0.2 mL 0.2 mL, Infiltration, PRE-OP MULTIPLE, 3 doses, Starting on Wed11/30/23 at 0920, Until Wed12/01/23 at 0122, May be used (0.2 ml locally to anesthetize prior to insertion)., Pre-op $ Given 11/30/2023 9:49 AM CDT 0.2 mL documented in this encounter Care Teams Human Services Instructor Relationship Specialty Start Date End Date Keisha Pineda PA [address] [place] [phone] PCP - General Physician Warehouse Administrative Assistant 11/15/23 [place] [address] [facility] [address] [place] [address] Surgical Oncologist Surgical Oncology 02/15/23 [place] [address] [address] [facility] [address] [place] [address] Hand Salter/Oncologist Hematology and Oncology 02/16/23 documented as of this encounter
--- OUTSIDE RECORDS SUMMARY | 2024-07-02 04:41 | XMS_ITS | Encounter Summary ---
Author Organization [facility] Address [address] [facility] [place] [address] Care Team Providers Care Machine Pan Greaser Name Role Phone Naya Leonard DO Unavailable [phone] Bernardo Lizarraga MD Unavailable [phone] Celina Sifuentes MD Primary Care Provider [phone] Reason for Referral * Procedure (Routine) - Closed Specialty Diagnoses / Procedures Referred By Contac t Referred To Contact Gastroenterology Diagnoses Special screening for malignant neoplasms, colon Procedures ENDOSCOPY, COLON, [place] [id number] [address] Referral ID Status Reason Start Date Expiration Date Visits Re quested Visits Authorized [id number] Closed 04/02/2023 04/01/2024 1 1 Reason for Visit * Auth/Cert (Routine) Specialty Diagnoses / Procedures Referred By Contac t Referred To Contact Procedures CA COLOREC CANC SCRN,SCR COLONOSCOPY+BE COLONOSCOPY SCREEN Referral ID Status Reason Start Date Expiration Date Visits Re quested Visits Authorized [id number] 1 1 Encounter Details Date Type Department Care Team (Latest Contact Info) Description 09/27/2023 8:58 AM CDT - 09/27/2023 11:14 AM CDT Hospital Encounter [facility] [address] [place] [address] [place] [address] [facility] [address] [place] [address] Surgery General Discharge Disposition: Home or Self [...] Sign Reading Time Taken Comments Blood Pressure 119/76 09/27/2023 11:00 AM CDT Pulse 67 09/27/2023 11:05 AM CDT Temperature 36.7 ??C (98 ??F) 09/27/2023 9:23 AM CDT Respiratory Rate 23 09/27/2023 11:05 AM CDT Oxygen Saturation 97% 09/27/2023 11:05 AM CDT Inhaled Oxygen Concentration - - Weight 80.3 kg (177 lb) 09/27/2023 9:23 AM CDT Height 162.6 cm (5' 4 ) 09/27/2023 9:23 AM CDT Body Mass Index 30.38 09/27/2023 9:23 AM CDT documented in this encounter Medications at Time of Discharge Medication Sig Dispensed Refills Start Date End Date ascorbic acid (Vitamin C) 250 MG tablet Take 1 (one) tablet by mouth once daily 11/15/2023 atorvastatin (Lipitor) 20 MG tabletIndications:Hyper cholesteremia Take 1 (one) tablet by mouth at bedtime 100 tablet 4 02/06/2023 11/15/2023 multivitamin daily tablet Take 1 (one) tablet by mouth daily with food 11/15/2023 tamoxifen (Nolvadex) 20 MG tabletIndications:Invas albert ductal carcinoma of right breast (HCC) Take 1 (one) tablet by mouth once daily 90 tablet 1 04/19/2023 10/11/2023 documented as of this encounter H&P Notes * Adama Holliday MD - 09/27/2023 10:28 AM CDT PRE-PROCEDURE HISTORY & PHYSICAL NOTE (Presedation assessment per Anesthesia Team) 09/27/2023 10:28 AM Patient: Betina Coy, date of 1970 Procedure(s) planned: Colonoscopy Indication(s): Screening, Average Risk History: Patient Active Problem List: PCOS (polycystic ovarian syndrome) Hypercholesteremia COVID-19 Postoperative seroma of subcutaneous tissue after non-dermatologic procedure Invasive ductal carcinoma of right breast (HCC) Past Medical History: Diagnosis Date ??? Breast CA (HCC) Right ??? COVID 06/2021 ??? Elevated cholesterol ??? Hypothyroid ??? MVP (mitral valve prolapse) pt denies ??? PCOS (polycystic ovarian syndrome) Past Surgical History: Procedure Laterality Date ??? Breast Reconstruction N/A 06/08/2023 N/A; TOTAL AUTOLOGOUS BILATERAL BREAST RECONSTRUCTION ??? Bunionectomy Bilateral ??? EXCISION/ DESTRUCTION TUMOR/MASS Bilateral 02/25/2023 Bilateral; Incision and drainage bilateral chest wall seroma and placement Shalom drains ? Hemorrhoidectomy ??? MAMMO STEREOTACTIC RIGHT BIOPSY Right 01/06/2023 MAMMO STEREOTACTIC RIGHT BIOPSY 01/06/2023 [facility] ??? MASTECTOMY, SIMPLE Bilateral 02/18/2023 Bilateral; RIGHT SIMPLE MASTECTOMY, RIGHT SENTINEL LYMPH NODE BX, LEFT PROPHYLACTIC MASTECTOMY ??? NEEDLE BIOPSY Right right breast 2 cyst aspirations ??? OTHER SURGERY breast cyst aspiration ??? PLASTIC SURGERY PROCEDURE N/A 06/08/2023 N/A; FAT GRAFTING FROM ADBOMEN AND LOCAL TISSUE REARRANGEMENT ??? US BREAST RIGHT BIOPSY Right 01/06/2023 US BREAST RIGHT BIOPSY 01/06/2023 [facility] US No Known Allergies Current Facility-Administered Medications Medication Dose Route Frequency Provider Last Rate Last Admin ??? 0.9% NaCl infusion Intravenous Continuous Adama Holliday MD 20 mL/hr at 09/27/23 0931 NewBag at 09/27/23 0931 Review of systems: Chest pain: No. Shortness of breath: No. Review of systems otherwise negative. Physical Exam: BP 120/83 (BP Location: Left arm, Patient Position: Sitting) Pulse 71 Temp 98 ??F (36.7 ??C) (Oral) Resp 11 Ht 1.626 m (5' 4 ) Wt 80.3 kg (177 lb) SpO2 97% Physical Exam Constitutional: General: She is not in acute distress. HENT: Head: Normocephalic and atraumatic. Eyes: General: No scleral icterus. Cardiovascular: Rate and Rhythm: Normal rate. Pulmonary: Effort: Pulmonary effort is normal. No respiratory distress. Abdominal: General: Abdomen is flat. There is no distension. Palpations: Abdomen is soft. There is no mass. Tenderness: There is no abdominal tenderness. There is no guarding or rebound. Hernia: No hernia is present. Musculoskeletal: General: No deformity. Normal range of motion. Cervical back: Normal range of motion and neck supple. Skin: General: Skin is warm and dry. Findings: No rash. Neurological: Mental Status: She is alert and oriented to person, place, and time. Psychiatric: Mood and Affect: Affect normal. Sedation Plan: Monitored Anesthesia Care (MAC) by the anesthesia team. Procedure Plan: Based on the above assessment, we will perform the procedures indicated above. I have discussed the plan, risks, benefits and alternatives with the patient or guardian. When assessment above was not obtained immediately before the procedure, I have reassessed this patient and there are no changes. INFORMED CONSENT FOR ENDOSCOPIC PROCEDURES Endoscopic procedures are very safe but there are definite risks which are outlined below. Anesthesia Risks 1. Risk of respiratory depression and hypoxia (not getting enough oxygen in blood). This can usually be easily treated and reversed but may require intubation (breathing tube) and mechanical ventilation. 2. Risk of allergic reaction to anesthesia medication 3. Risk of aspiration causing cough, infection or other pulmonary problems Bleeding risks Bleeding may be immediate or delayed. It is usually associated with biopsy or polyp removal. Significant bleeding at time of procedure will be treated by various methods to stop the bleeding. Bleeding may require longer hospitalization, blood transfusion, repeat endoscopic procedures or possible anabella ghassan to stop the bleeding. IV Risks A new IV may need to be placed to give sedation. With placement of IV there is risk of multiple attempts to place catheter and pain associated. Risks of infection of IV site and blood clots possible leading to severe vascular complications. Missed lesions Endoscopic procedures (colonoscopy, upper endoscopy) are believed to be the best procedures to findabnormalities in the intestines including polyps and cancer. These procedures ARE NOT 100% successful and abnormalities may be missed. This is highly dependent on how well the bowel is cleaned out and patients individual anatomy. Risk of Perforation All endoscopic procedures have risk of perforation (causing a hole in the intestines). This is a VERY RARE but serious complication. It usually requires immediate surgery. There are multiple conditions that increase the chance of of perforation including but not limited to patients age, previous abdominal surgery , gender, weight, chronic medical problems and diverticular disease of colon. Other risks There have been some reports of diverticulitis and splenic rupture (extremely rare) after colonoscopy. May have sore throat following upper endoscopy May have damage to teeth or dental appliances with upper endoscopy Patient understands above risks prior to procedure and has or will sign hospital consent prior to procedure. PROCEDURES MAY BE UNSUCCESSFUL DUE TO ANATOMY, CLINICAL CONDITION OR PREP AND MAY BE STOPPED BEFORECOMPLETION. RECOMMENDATIONS MAY INCLUDE REPEAT PROCEDURE, X-RAY PROCEDURE OR OTHER STUDIES. COMPLICATIONS MAY LEAD TO PROLONGED HOSPITALIZATION, CHRONIC MEDICAL PROBLEMS AND . Adama Holliday MD Gastroenterology Interventional Endoscopy Director, Gastroenterology & Endoscopy [facility] Office: [phone] documented in this encounter Procedure Notes * Admaa Holliday MD - 09/27/2023 10:48 AM CDTAssociated Order(s): ENDOSCOPY, COLON, SCREENING Colonoscopy done for screening. Normal colon other than diverticulosis. Repeat in 10 years for screening. documented in this encounter Plan of Treatment Upcoming Encounters Date Type Department Care Team (Late st Contact Info) Description 07/19/2024 9:45 AM STUDENT SUCCESS ADVISOR Office Visit [facility] - TRANSFER AND LINE UP WORKER [address] [address] Leatha Gupta MD [address] [place] [address] 12/11/2024 9:00 AM CDT Office Visit [facility] - Surgery [address] [facility], [address] [place] [address] [place] [address] [facility] [address] [place] [address] 12/11/2024 10:40 AM CDT Office Visit [facility] [address] [facility] [address] [place] [address] [place] [address] [place] [address] documented as of this encounter Procedures Procedure Name Priority Date/Time Associated Diagnosis Comments CA COLOREC CANC SCRN,SCR COLONOSCOPY+BE 09/27/2023 10:15 AM CDT ENDOSCOPY, COLON, SCREENING Routine 09/27/2023 9:15 AM CDT Special screening for malignant neoplasms, colon documented in this encounter Results * ENDOSCOPY, COLON, SCREENING (09/27/2023 9:15 AM CDT) Report Endoscopy POC _ Patient Name: Betina Coy ? Procedure Date: 09/27/2023 9:15 AM ? Date of : 1970 ?Admit Type: Outpatient Age: 53 ? Gender: Female Attending MD: Adama Holliday MD, [id number] _ Procedure: ? Colonoscopy Indications: ? Screening for colorectal malignant neoplasm Providers: ? Adama Holliday MD (Doctor) Patient Profile: ? 53yo female with average risk for colon cancer here ? for screening colonoscopy Referring MD: ?Celian Sifuentes MD (Referring MD) Medicines: ? Monitored [...] ? preparation was evaluated using the BBPS ([place] Bowel ? Preparation Scale) with scores [...] Procedure Code(s): ? --- Professional --- ? 16121, Colonoscopy, flexible; diagnostic, including collection of ? specimen(s) by brushing or washing, when performed (separate procedure) ? --- Technical --- ? 38095, Colonoscopy, flexible; diagnostic, including collection of ? [...] abscess ? without bleeding CPT copyright 2020 [employer]. All rights reserved. The codes documented in this report are preliminary and upon cafe cook review may be revised to meet current compliance requirements. __ Adama Holliday MD 09/27/2023 10:47:51 AM Number of Addenda: 0 Note Initiated On: 09/27/2023 9:15 AM [facility] 09/27/2023 9:15 AM CDT Narrative Procedure Note Adama Holliday MD - 09/27/2023 10:48 AM CDT Colonoscopy done for screening. Normal colon other than diverticulosis.Repeat in 10 years for screening. Ricky Fuentes MD GI PROCEDURE ORDERA AMBER Performing Organization Address City/State/[facility] Co de Phone Number [facility] [place] [address] documented in this encounter Visit Diagnoses Diagnosis Special screening for malignant neoplasms, colon documented in this encounter Administered Medications Inactive Administered Medications - up to 3 most recent administrations Medication Order MAR Action Action Date Dose Rate Site 0.9% NaCl infusion at 20 mL/hr, Intravenous, CONTINUOUS, Starting on Wed09/27/23 at 0945, Until Wed09/27/23 at 1219, Pre-procedure (GI) $ New Bag/Syringe 09/27/2023 9:31 AM CDT 20 mL/h r documented in this encounter Active and Recently Administered Medications Times are shown in CDT. Continuous Medication Order 09/25/2023 09/26/2023 09/27/2023 0.9% NaCl infusion at 20 mL/hr, Intravenous, CONTINUOUS, Starting on Wed09/27/23 at 0945, Until Wed09/27/23 at 1219, Pre-procedure (GI) 0931 ($ New Bag/Syri nge - Provider: Carmen Colon RN) documented in this encounter Care Teams Machine Pan Greaser Relationship Specialty Start Date End Date Celina Sifuentes MD [address] [place] [address] PCP - General Family Medicine 02/16/23 11/14/23 [place] [address] [address] [place] [id number] Surgical Oncologist Surgical Oncology 02/15/23 [place] [address] [address] [place] [phone] Dual Rate Supervisor/Oncologist Hematology and Oncology 02/16/23 documented as of this encounter
--- OUTSIDE RECORDS SUMMARY | 2024-07-02 04:41 | XMS_ITS | Encounter Summary ---
Author Organization [facility] Address [address] [place] [address] Care Team Providers Care Motor Equipment Sergeant Name Role Phone Naya Leonard Irving DO Unavailable [phone] Bernardo Lizarraga MD Unavailable [phone] Celina Sifuentes MD Primary Care Provider [phone] Encounter Details Date Type Department Care Team (Latest Contact Info) Description 06/08/2023 Travel Social History Tobacco Use Types Packs/Day [...] st Contact Info) Description 07/19/2024 9:45 AM JAVA LEAD ARCHITECT Office [facility] - MEDICAL HEALTH RESEARCHER [address] [place] [address] Leatha Gupta MD [address] [place] [address] 12/11/2024 9:00 AM CDT Office Visit [facility] - Surgery [address] [facility], [address] [place] [address] [place] [address] [address] [place] [address] 12/11/2024 10:40 AM CDT Office Visit [facility] [address] [facility] [address] [place] [address] [place] [address] [address] [place] [address] documented as of this encounter Visit Diagnoses Not on filedocumented in this encounter Care Teams Motor Equipment Sergeant Relationship Specialty Start Date End Date Celina Sifuentes MD [address] [place] [address] PCP - General Family Medicine 02/16/23 11/14/23 [place] [address] [address] [place] [address] Surgical Oncologist Surgical Oncology 02/15/23 [place] [address] [address] [place] [address] Industrial Machinery Mechanic/Oncologist Hematology and Oncology 02/16/23 documented as of this encounter
--- OUTSIDE RECORDS SUMMARY | 2024-07-02 04:41 | XMS_ITS | Encounter Summary ---
Author Organization [facility] Address [address] [place] [address] Care Team Providers Care Ensemble Member Name Role Phone Naya Leonard Irving DO Unavailable [phone] Bernardo Lizarraga MD Unavailable [phone] Celina Sifuentes MD Primary Care Provider [phone] Encounter Details Date Type Department Care Team (Latest Contact Info) Description 09/27/2023 Travel Social History Tobacco Use Types Packs/Day [...] st Contact Info) Description 07/19/2024 9:45 AM GUARD SERGEANT Office Visit [facility] - BULB GROWER [address] [place] [address] Leatha Gupta MD [address] [place] [address] 12/11/2024 9:00 AM CDT Office Visit [facility] - Surgery [address] [facility], [address] [place] [address] [place] [address] [address] [facility] [address] [place] [address] 12/11/2024 10:40 AM CDT Office Visit [facility] [address] [facility] [address] [place] [address] [place] [address] [address] [place] [address] documented as of this encounter Visit Diagnoses Not on filedocumented in this encounter Care Teams Ensemble Member Relationship Specialty Start Date End Date Celina Sifuentes MD [address] [place] [address] PCP - General Family Medicine 02/16/23 11/14/23 [place] [address] [address] [place] [address] Surgical Oncologist Surgical Oncology 02/15/23 [place] [address] [address] [place] [address] Route Cdl Driver/Oncologist Hematology and Oncology 02/16/23 documented as of this encounter
--- OUTSIDE RECORDS SUMMARY | 2024-07-02 04:41 | XMS_ITS | Encounter Summary ---
Author Organization [facility] Address [address] [place] [address] Care Team Providers Care Aerodynamicist Name Role Phone HoracioVioletajanki Villatoro DO Unavailable [phone] Bernardo Lizarraga MD Unavailable [phone] Celina Sifuentes MD Primary Care Provider [phone] Reason for Referral * Radiology Services (Routine) - Pending Review Specialty Diagnoses / Procedures Referred By Contlulu t Referred To Contact Ultrasound Diagnoses PMB (postmenopausal bleeding) Procedures US PELVIS W TRANSVAG NON OB Leatha Gupta MD [address] [place] [address] [facility] [address] [address] Referral ID Status Reason Start Date Expiration Date V isits Requested Visits Authorized [id number] Pending Review 09/13/2023 09/12/2024 1 1 AL SAW OPERATOR Reason for Visit * Reason Onset Date Comments Concerns 09/13/2023 Encounter Details Date Type Department Care Team (Late st Contact Info) Description 09/13/2023 Telephone [facility] [address] [place] [address] Leatha Gupta MD [address] [facility] [place] [address] Concerns Social History Tobacco Use Types Packs/Day Years [...] encounter Miscellaneous Notes * Telephone Encounter - Antonia Huerta RN - 09/13/2023 11:53 AM CST Spoke with pt informed Pelvic ultrasound has been ordered. Pt given contact info to call and schedule. AL SAW OPERATOR * Telephone Encounter - Issa Martinez MA - 09/13/2023 9:22 AM CST Pt was blind transferred to the office from the call center. Pt calling with concerns of Abnormal bleeding. Pt is on Tamoxifen for hx of double mastectomy and breast cx Wanting to know if she needs to come in or is this normal. Please advise. AL SAW OPERATOR documented in this encounter Plan of Treatment Upcoming Encounters Date Type Department Care Team (Late st Contact Info) Description 07/19/2024 9:45 AM RADIAL SAW OPERATOR Office Visit [facility] - [facility] [address] [place] [address] Leatha Gupta MD [address] [facility] [place] [address] 12/11/2024 9:00 AM CDT Office Visit [facility] - Surgery [address], [address] [place] [address] [place] [address] [facility] [address] [place] [address] 12/11/2024 10:40 AM CDT Office Visit [facility] [id number] [place] [address] [address] [place] [address] [place]arr[place] [id number] [place] [address] [address] [place] [address] documented as of this encounter Results * US PELVIS W TRANSVAG NON OB (09/14/2023 9:25 AM RADIAL SAW OPERATOR) Anatomical Region Laterality Modality Pelvis Ultrasound 09/14/2023 9:31 AM RADIAL SAW OPERATOR Impressions 09/14/2023 9:34 AM RADIAL SAW OPERATOR IMPRESSION: 1. Small uterine leiomyomas with the larger measuring 2.5 cm diameter. 2. 4.1 cm simple appearing right ovarian cyst. 3. Nonvisualization of the left ovary. > Interpreting Provider: Isabell Dillard MD on 09/14/2023 9:34 AM Narrative 09/14/2023 9:34 AM RADIAL SAW OPERATOR PROCEDURE: ??US PELVIS W TRANSVAG NON OB DATE/TIME OF EXAM: ??09/14/2023 9:25 AM CLINICAL INFORMATION: None relevant/not provided if blank. Indication: N95.0: Postmenopausal bleeding Additional History: Patient on tamoxifen COMPARISON: October 13, 2021 TECHNIQUE: Real time transabdominal and transvaginal pelvic ultrasound was performed by the hydro excavation operator with DICOM image capture. Grayscale images were [...] and transvaginal pelvic ultrasound wasperformed by the hydro excavation operator with DICOM image capture. Grayscale images were [...] 9:34 AM Leatha Gupta MD US ORDERABLES documented in this encounter Visit Diagnoses Diagnosis PMB (postmenopausal bleeding)- Primary Postmenopausal bleeding PMB (postmenopausal bleeding) Postmenopausal bleeding documented in this encounter Care Teams Aerodynamicist Relationship Specialty Start Date End Date Celina Sifuentes MD [address] [place] [address] PCP - General Family Medicine 02/16/23 11/14/23 [place] [address] [place] [id number] Surgical Oncologist Surgical Oncology 02/15/23 [place] [address] [id number] Film And Video Editor/Oncologist Hematology and Oncology 02/16/23 documented as of this encounter
--- OUTSIDE RECORDS SUMMARY | 2024-07-02 04:41 | XMS_ITS | Encounter Summary ---
Author Organization [facility] Address [address] [facility] [place] [address] Care Team Providers Care Game Breeding Farm Manager Name Role Phone Naya Leonard Irving GALLO Unavailable [phone] Bernardo Lizarraga MD Unavailable [phone] Celina Sifuentes MD Primary Care Provider [phone] Reason for Referral * Radiology Services (Routine) - Pending Review Specialty Diagnoses / Procedures Referred By Contac t Referred To Contact Ultrasound Diagnoses PMB (postmenopausal bleeding) Procedures US PELVIS W TRANSVAG NON Leatha Sterling MD [address] [place] [address] [facility] [address] [address] Referral ID Status Reason Start Date Expiration Date V isits Requested Visits Authorized [id number] Pending Review 09/13/2023 09/12/2024 1 1 NESS LIAISON OFFICER Reason for Visit * Radiology Services (Routine) - Pending Review Specialty Diagnoses / Procedures Referred By Contac t Referred To Contact Ultrasound Diagnoses PMB (postmenopausal bleeding) Procedures US PELVIS W TRANSVAG NON OB Leatha Gupta MD [address] [place] [address] [facility] [address] [facility] [address] [place] [address] Referral ID Status Reason Start Date Expiration Date V isits Requested Visits Authorized [id number] Pending Review 09/13/2023 09/12/2024 1 1 Encounter Details Date Type Department Care Team (Latest Contact Info) Description 09/14/2023 8:20 AM BUSINESS LIAISON OFFICER - 09/14/2023 11:59 PM BUSINESS LIAISON OFFICER Hospital Encounter [facility] - Ultrasound [address] [address] Discharge Disposition: Home or Self Care Social [...] once daily 11/15/2023 atorvastatin (Lipitor) 20 MG tabletIndications:Hype rcholesteremia Take 1 (one) tablet by mouth at bedtime 100 tablet 4 02/06/2023 11/15/2023 multivitamin daily tablet Take 1 (one) tablet by mouth daily with food 11/15/2023 sod picosulfate-mag ox-anhydrous citric acid (Clenpiq) 10-3.5-12 MG-GM -GM/175ML SOLN 175 ml solution Take by mouth as directed 1 kit 06/30/2023 09/27/2023 tamoxifen (Nolvadex) 20 MG tabletIndications: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) Take 1 (one) tablet by mouth once daily 90 tablet 1 04/19/2023 10/11/2023 documented as of this encounter Plan of Treatment Upcoming Encounters Date Type Department Care Team (Late st Contact Info) Description 07/19/2024 9:45 AM BUSINESS LIAISON OFFICER Office Visit [facility] - DIALYSIS NURSE [address] [place] [address] Leatha Gupta MD [facility] [place] [address] 12/11/2024 9:00 AM CDT Office Visit [facility] - Surgery [address] [place] [address], [address] [place] [address] [place] [address] [address] 12/11/2024 10:40 AM CDT Office Visit [facility] [id number] [place] [address] [place] [address] [place] [id number] [place] [address] [address] documented as of this encounter Procedures Procedure Name Priority Date/Time Associated Diagnosis Comments US PELVIS W TRANSVAG NON OB Routine 09/14/2023 9:25 AM BUSINESS LIAISON OFFICER PMB (postmenopausal bleeding) documented in this encounter Results * US PELVIS W TRANSVAG NON OB (09/14/2023 9:25 AM BUSINESS LIAISON OFFICER) Anatomical Region Laterality Modality Pelvis Ultrasound 09/14/2023 9:31 AM BUSINESS LIAISON OFFICER Impressions 09/14/2023 9:34 AM BUSINESS LIAISON OFFICER IMPRESSION: 1. Small uterine leiomyomas with the larger measuring 2.5 cm diameter. 2. 4.1 cm simple appearing right ovarian cyst. 3. Nonvisualization of the left ovary. > Interpreting Provider: Isabell Dillard MD on 09/14/2023 9:34 AM Narrative 09/14/2023 9:34 AM BUSINESS LIAISON OFFICER PROCEDURE: ??US PELVIS W TRANSVAG NON OB DATE/TIME OF EXAM: ??09/14/2023 9:25 AM CLINICAL INFORMATION: None relevant/not provided if blank. Indication: N95.0: Postmenopausal bleeding Additional History: Patient on tamoxifen COMPARISON: October 13, 2021 TECHNIQUE: Real time transabdominal and transvaginal pelvic ultrasound was performed by the relocation counselor with DICOM image capture. Grayscale images were [...] and transvaginal pelvic ultrasound wasperformed by the relocation counselor with DICOM image capture. Grayscale images were [...] on 09/14/2023 9:34 AM Leatha Gupta MD ORDERABLES documented in this encounter Visit Diagnoses Diagnosis PMB (postmenopausal bleeding) Postmenopausal bleeding documented in this encounter Care Teams Game Breeding Farm Manager Relationship Specialty Start Date End Date Celina Sifuenets MD [address] [place] [address] PCP - General Family Medicine 02/16/23 11/14/23 [place] [address] [address] [place] [phone] Surgical Oncologist Surgical Oncology 02/15/23 [place] [address] [place] [phone] Special Programs Director/Oncologist Hematology and Oncology 02/16/23 documented as of this encounter
--- OUTSIDE RECORDS SUMMARY | 2024-07-02 04:41 | XMS_ITS | Encounter Summary ---
Author Organization [facility] Address [address] [place] [address] Care Team Providers Care [employer] Name Role Phone HoracioNaya Irving DO Unavailable [phone] Bernardo Lizarraga MD Unavailable [phone] Celina Sifuentes MD Primary Care Provider [phone] Reason for Visit * Auth/Cert (Routine) Specialty Diagnoses / Procedures Referred By Contac t Referred To Contact Diagnoses Malignant neoplasm of right female breast, unspecified estrogen receptor status, unspecified site of breast (HCC) Malignant neoplasm of right female breast, unspecified estrogen receptor status, unspecified site of breast (CMS/HCC) [C50.911] Procedures ID INSERTION BREAST IMPLANT SAME DAY OF MASTECTOMY ID GRFG AUTOL FAT LIPO 50 CC/< ID REVISION ANGELA-IMPLANT CAPSULE BREAST RECONSTRUCTION BREAST / INSERTION BREAST PROSTHESIS GRAFT/TRANSFER FAT CAPSULOTOMY/CAPSULECTOMY BREAST Referral ID Status Reason Start Date Expiration Date Visits Re quested Visits Authorized [id number] 1 1 Encounter Details Date Type Department Care Team (Late st Contact Info) Description 06/08/2023 12:00 PM [employer]DER [employer]ER [employer] - 06/08/2023 2:00 PM [employer] [facility] Jose Luis5 Margy Carrasco, [address] [phone] Giacomo Correa MD [address] [place] [phone] TOTAL AUTOLOGOUS BILATERAL BREAST RECONSTRUCTION Surgery Details Date/Time Status Location OR Service Patient Class Case Class Case Type Trauma Case? 06/08/2023 12:00 PM Posted [facility] OR 3 Plastics Surgery Day Care Elective > 5 days Panel 1 Procedure LRB Anes Op Region Wound Class Comments TOTAL AUTOLOGOUS BILATERAL B REAST RECONSTRUCTION N/A General Breast Clean FAT GRAFTING FROM ADBOMEN AN D LOCAL TISSUE REARRANGEMENT N/A General Clean Surgeon Surgeon Role Service Panel Giacomo Correa MD Primary Plastics 1 documented in this encounter Social History Tobacco [...] Sign Reading Time Taken Comments Blood Pressure 120/74 06/08/2023 10:05 AM [employer] Pulse 65 06/08/2023 10:05 AM [employer] Temperature 37.6 ??C (99.7 ??F) 06/08/2023 10:[address] Respiratory Rate 12 06/08/2023 10:05 AM [employer] Oxygen Saturation 99% 06/08/2023 10:05 AM [employer] Inhaled Oxygen Concentration - - Weight 82.8 kg (182 lb 9.6 oz) 06/08/2023 9:55 A M [employer] Height 162.6 cm (5' 4 ) 06/08/2023 9:55 AM [employer] Body Mass Index 31.34 06/08/2023 9:55 AM [employer] documented in this encounter Functional Status Functional [...] as of this encounter H&P Notes * Giacomo Correa MD - 06/08/2023 12:00 PM CST Patient examined, H&P reviewed and remains current and/or changes noted Giacomo Correa MD 06/08/2023 8:04 AM ER [employer] * Giacomo Correa MD - 06/08/2023 12:00 PM CST Preop H&P- Total autologous bilateral breast reconstruction revision with fat grafting from abdomen and Local tissue rearrangement Name: Betina Coy Age: 52 : 1970 Patient is a 52-year-old female who recently had bilateral mastectomy???s with Dr. Leonard on 02/18/23. She was diagnosed with right sided breast, cancer, diagnosed via routine mammogram, when they sentthe tissue off for pathology, they also found a cancer in her left breast. She???s not going to have to go through chemotherapy or radiation, she is taking tamoxifen. She is interested in having anesthetic closure, she does not want implants, but she wants her chest leveled out and cleaned up. HPI: Breast: - HPI Breasts - Breast Desired/Current Size Details - Mammogram/Testing - Previous Breast Surgery Details History: General: - Height / Weight Height: 5 feet 4 inches. Weight: 187lbs Medical History: - Past Medical History Breast Cancer Surgical History: - Past Surgical History/Hospitalizations Bilateral mastectomy 2022 no anesthesia problems Foot surgery 1986 no anesthesia problems Family History: - Relevant Family History Breast Cancer - the affected family member was her Maternal Grandmother. Social History: - Tobacco History No history of tobacco use - Alcohol / Recreational Drug Use Patient denies alcohol use and denies using recreational drugs. Medications and Allergies: - Medications, Vitamins, Supplements and Allergies - Patient Allergies Notes 1 None - Patient Current Medications, Vitamins, Supplements Notes 1 Tamoxifen 2 Atorvastatin Skin History: - Skin History None - Past Skin Care Procedures - Current Skin Care Regimen - Additional Areas of Concern Review of Systems: - Review of Systems Detail Denies ~ Constitutional ~ weight change denies weight change fever or chills denies fever or chills fatigue denies fatigue snoring every night denies snoring every night ~ Eyes ~ double or blurred vision denies double or blurred vision eye irritation denies eye irritation dry eyes denies dry eyes contact usage denies contact usage heavy upper eyelids denies heavy upper eyelids ~ Ears, Nose and Throat ~ sore throat denies sore throat sinus issues denies sinus issues hearing loss denies hearing loss frequent nosebleeds denies frequent nosebleeds cold sores denies cold sores ~ Cardiovascular ~ chest pain denies chest pain dizziness denies dizziness high blood pressure denies high blood pressure irregular heartbeat denies irregular heartbeat ~ Respiratory ~ cough denies cough wheezing denies wheezing congestion denies congestion shortness of breath denies shortness of breath ~ Gastrointestinal ~ heartburn/reflux denies heartburn/reflux nausea/vomiting denies nausea/vomiting change in appetite denies change in appetite abdominal pain denies abdominal pain constipation denies constipation diarrhea denies diarrhea ~ Musculoskeletal ~ joint pain/swelling denies joint pain/swelling stiffness denies stiffness muscle pain denies muscle pain back pain denies back pain ~ Genitourinary ~ frequent urination denies frequent urination painful urination denies painful urination blood in urine denies blood in urine abnormal discharge denies abnormal discharge bladder leakage denies bladder leakage ~ Skin ~ rashes denies rashes sores denies sores new or changing lesions denies new or changing lesions itching/burning denies itching/burning ever taken Accutane denies ever taken Accutane ~ Allergic/Immunologic ~ hives denies hives eczema denies eczema hay fever denies hay fever ~ Endocrine ~ diabetes denies diabetes loss of hair denies loss of hair heat/cold intolerance denies heat/cold intolerance ~ Hematology/Lymphatic ~ anemia denies anemia bruising easily denies bruising easily gums bleed easily denies gums bleed easily excessive bleeding denies excessive bleeding blood clots denies blood clots ~ Neurological ~ headaches denies headaches paralysis denies paralysis numbness in fingers denies numbness in fingers blackouts denies blackouts seizures denies seizures ~ Psychiatric ~ anxiety denies anxiety depression denies depression mood swings denies mood swings difficulty sleeping denies difficulty sleeping prior counseling denies prior counseling - Gynecologic Admits Denies Notes currently denies currently currently nursing denies currently nursing trying to get denies trying to get using hormone replacement therapy admits using hormone replacement therapy (Tamoxifen) - Gynecologic (Additional) Patient had 3 pregnancies and 3 children. Vitals: - Vitals Complete: Temp, HR, BP, RR, Sat General Exam: - Constitutional Exam Patient appears well developed and well nourished. - Psychiatric Exam Patient appears in no apparent distress. - Neuro Exam Patient appears alert, awake, and oriented x 3. - Eye Exam Eye exam reveals EOM intact, a normal globe, PERRLA and normal visual acuity. - Neck Exam Neck exam shows midline trachea, no carotid bruits and no palpable thyroid nodules. - Respiratory Exam Respiratory exam reveals clear to auscultation and normal respiratory rate. - Cardiovascular Exam Cardiovascular exam demonstrates regular rate and rhythm. - Abdominal Exam Patient's abdomen is soft, nontender and nondistended. - Extremity Exam Extremities demonstrate intact neurovascular function, 5 of 5 strength and no edema. - Lymphadenopathy Lymphadenopathy not present. - General Exam Additional Notes Focused Exam: Breast: - Breast Measurements (cm or grade): - Breast Exam Details - Additional notes: Left incision 17 Right incision 14 - Breast Exam Details Addl - Breast Exam Image/Photo Assessment / Plan: - Assessment Patient is a 52-year-old female who recently had bilateral mastectomy???s with Dr. Leonard on 02/18/23. She was diagnosed with right sided breast, cancer, diagnosed via routine mammogram, when they sentthe tissue off for pathology, they also found a cancer in her left breast. She???s not going to have to go through chemotherapy or radiation, she is taking tamoxifen. She is interested in having anesthetic closure, she does not want implants, but she wants her chest leveled out and cleaned up. 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 even after surgery as normal anatomy has a breast to back transition zone which is always accentuated after mastectomy RBA discussed including bleeding, infection, seroma especially with her history of fluid collections, need for revision surgery and wound healing issues - Plan Delayed autologous reconstruction with LTR and fat grafting She wishes to be even, flat, and dog ears excised Discussed fat grafting to help eliminate areas that are sunken in and uneven Discused excision of likely seroma capsules - Bring in Counseling Topic Yes Counseling: - Counseling Topics Breast Reconstruction - General, Fat Grafting - Body, Scar Revision and Pre-Operative - Breast Reconstruction - General I had a long discussion with this patient regarding the reconstructive options following mastectomy. We discussed the autologous tissue reconstructive methods including the TRAM flap, prosthetic reconstructive methods including the tissue print controller/implant and the combination procedures such as the LD flap with implant placement. We discussed the benefits and risks of each method as well as additional options such as doing nothing or free/obstetrician and gynaecologist flaps. I also had a long discussion with this patient about breast implants. We discussed several topics including the history of silicone breast implants and their relationship to connective tissue diseases, the difference between saline filled and silicone gel filled implants, breast cancer and its relationship to breast augmentation, and the procedure of breast implant reconstruction. For a partial mastectomy, we had a long discussion about fat grafting. We discussed the procedure including the removing fat from elsewhere on the body such as the abdomen or thigh, through the use of small liposuction cannulas and then placing it though small incisions into the desired region. I explained that the fat is then revascularized and survives depending on how well that happens. We discussed that the take is variable and there is no way to predict how much of the fat will survive. I estimate that there is a chance that 30-70% of the fat will be absorbed within a few months. In addition, given her ptosis on the contralateral side, she would be a candidate for mastopexy. I therefore had a long discussion with this patient about breast ptosis and the treatment options including the procedure of telles pattern mastopexies. I orestes pictures of the procedure and the resulting scars. She understands the extent of the scars and the resulting potential hypertrophy and appearance of the new areola and its potential size. She understands that a breast lift will decrease her breast volumes slightly. Overall we discussed the likely scars associated with both breasts and the advantages and disadvantages with respect to result of each reconstructive method. We also discussed the risks and benefits of each procedure. My recommendations were discussed with the patient. The patient was given the [facility] rtunity to ask questions. - Scar Revision Counseling We had a long discussion about scars. We discussed those things which can be done to improve them; specifically, with regards to orientation, color and the relationship to the surrounding skin whether raised, hypertrophied, or depressed atrophic type scars. With regards to the orientation we discussed surgical methods to excise the scar and try to make it finer or re-oriented to a less noticeableorientation within the natural skin tension lines. We discussed that this could involve techniques such as a Z-plasty. With regards to color we discussed that sunscreen is important to keep the inflammation out of the scar and potentially prevent darkening of the scar due to the sun exposure. We also discussed products such as Mederma, which can help with scar redness and BBL therapy which can help with redness of the scars as well. We discussed methods to decrease potential hypertrophy of the scars including massage, pressure and topical therapy including scar gels and sheeting. I also stressed that these must be used consistently typically for months to have a lasting effect. For scars that are significantly hypertrophied or true keloid scars we discussed that some or all to the techniques may be needed. For atrophic scars we discussed that surgical revision, or fillers and skin care products such as Retin-A may be helpful as well as erbium laser therapies. - Fat Grafting - Body We had a long discussion about fat grafting. We discussed the procedure including the removal of fat from elsewhere on the body such as the abdomen or thigh, through the use of small liposuction cannulas and then placing it though small incisions into the area of desired contour improvement. I explained that the fat is then revascularized and survives depending on how well that happens. We discussed that the take is variable and there is no way to predict how much of the fat will survive. I estimate that there is a chance that 30-70% of the fat will be absorbed within a few months. Overall, we discussed that plastic surgery is a tradeoff between the goal of an improved contour against the risks of surgery and permanent visible scars. Options such as anesthesia methods, adjuvantskin care, combining procedures and incision location were discussed. My recommendations for this patient were reviewed. Aesthetic and functional goals may or may not be met. Risks such as asymmetries and contour irregularities, incomplete improvement, poor aesthetic outcome, healing difficulties, nerve injuries, loss of function were mentioned. Every effort will be made to avoid these issues. Future changes to the appearance due to weight fluctuation or aging following the surgery are unpredictable. Expectations about postoperative pain management, dressings, activity restrictions, and return to work were discussed. The patient was given the opportunity to ask questions. - Pre Op Counseling Fat Grafting - Body and Laceration Repair/Scar Revision - Pre Op Fat Grafting - Body We discussed the differences from side to side. She is aware that many of these differences may persist following surgery. We reviewed her postoperative restrictions in activity. We also discussed the benefits and risks which include but are not limited to pain, bleeding, seroma formation, infection, poor scarring, soft tissue calcification and necrosis, soft tissue cyst formation, chest wall deformity, asymmetry, residual rippling and depression, implant rupture, capsular contracture, damage to adjacent structures, need for further surgery, myocardial infarction, stroke, deep venous thrombosis, pulmonary embolus and even loss of life. She understands these risks and consents to surgery. - Pre Op Laceration Repair/Scar Revision We reviewed the postoperative restrictions in activity. We also discussed the benefits and risks which include but are not limited to pain, bleeding, infection, soft tissue contour irregularities, hyperpigmentation, changes in cutaneous sensation, asymmetry, poor scarring, delayed healing, tissue loss, and need for further surgery. The patient understands these risks and consents to surgery. E/M Coding Note: - E/M Charges Next Appointment: - Next Appt Patient was instructed to return (She wishes to proceed with surgery during her winter break vacation). The patient was instructed to return to the office if a problem persists or a new problem presents. Signature: - Signature: How to insert signature PC - Right click anywhere on the topic and select insert signature - Signature Giacomo Correa MD [employer] documented in this encounter Nursing Notes * Hui Liang RN - 06/01/2023 11:37 AM CST Pre-Op phone call completed. Patient to arrive at [facility] for surgery on 06/08 1000 Patient instructed no solids/food after midnight (including no gum, candy, or mints). Patient instructed to take a cleansing shower with soap the night before surgery, change the bed linens, and then take another cleansing shower with soap the morning of surgery. [employer] documented in this encounter OR Notes * Brief Op Note - Giacomo Correa MD - 06/08/2023 12:00 PM CST Brief Op Note Procedure: TOTAL AUTOLOGOUS BREAST RECONSTRUCTION, FAT GRAFTING FROM ADBOMEN AND LOCAL TISSUE REARRANGEMENT, REVISION OF SERORNA CAPSULES Patient Name: Betina Coy Date of Service: 06/08/2023 Pre-Op Diagnosis: Malignant neoplasm of right female breast, unspecified estrogen receptor status, unspecified site of breast (CMS/HCC) [C50.911] Post-Op Diagnosis: Same Surgeon(s) and Role: * Giacomo Correa MD - Primary Inspection And Testing Supervisor(s): Otilia Kirby Anesthesia Type: general ETT Complications: none Findings: See Op Report EBL: Minimal Urine Output : Per Anesthesia IV Fluid Intake: Per Anesthesia Drains: Drain 1 Channel Bulb Lateral;Left Chest (Active) Drain 2 Channel Bulb Lateral;Right Chest (Active) Specimen(s): ID Type Source Tests Collected by Time Destination A : left breast capsule Pathology/Cytology Breast Capsule PATHOLOGY TISSUE EXAM (STL) Giacomo Correa MD 06/08/2023 1341 B : right breast capsule Pathology/Cytology Breast Capsule PATHOLOGY TISSUE EXAM (STL) Giacomo Correa MD 06/08/2023 1341 Implant(s): None Giacomo Correa MD [employer] * Operative - Giacomo Correa MD - 06/08/2023 12:00 PM CST BREAST RECONSTRUCTION [facility] Operative Note PATIENT NAME: Betina Coy DATE OF :1970 DATE OF OPERATION:06.08.23 SURGEON:Giacomo Correa MD DOCUMENT PROCESSOR: Otilia Kirby PREOPERATIVE DIAGNOSIS: Breast cancer reconstruction revision POSTOPERATIVE DIAGNOSIS: same -status post mastectomies SURGERY PERFORMED: Bilateral Breast Reconstruction Delayed Local tissue rearrangement right side 16x30 cm left side 14x25 cm 120cc Fat Grafting (60cc to each breast) ANESTHESIA: General endotracheal INDICATION FOR PROCEDURE: This is a 52 year old female who presents for evaluation for breast reconstruction. She has met with us previously and has been well educated with regards to breast reconstructive options. She would like to be as smooth as possible and flat. She had mastectomies previously and does not want implant reconstruction for volume reasons. She prefers to be flat but with a smooth contour and eliminationof dog ears. 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 She denies any blood clots, bleeding, or problems with anesthesia. A blake discussion was had with the patient regarding a breast reconstruction risks and risks related to mastectomy. The risks including but not limited to bleeding, infection, hematoma, seroma, partial or complete wound dehiscence,poor scarring (widened, hypertrophic, keloid), acute and chronic pain, nipple necrosis, partial or full loss of nipple sensation, asymmetry, poor cosmetic result, inability to breastfeed, and need for reoperation were discussed. The patient verbalized understanding of these risks. She wishes to proceed with the operation. The patient signed surgical consent in her preferred language. DESCRIPTION OF SURGERY: She was then brought to the operating room and placed in the supine position. The mastectomy portion of the procedure was done by Dr Leonard, Breast Surgery and this will be dictacted in their note from a prior encounter. I followed the mastectomy portion In a delayed manner with the reconstruction portion of the procedure described as a local tissue rearrangement and closure. Patient was made aware that her lateral dog ears are part of her normal anatomy at the transition zone from breast to lateral chest and that would involve surgery beyond the zone of her breast. Initially the breast mastectomy scars were inspected. An elliptical incision pattern was designed on bilateral breasts to remova the majority of scar and excess skin medially and centrally. These areas would be de-epithelialized and dunked below the flaps to help smoothe the contour in areas of dimpling and scarring. At this time, an 11 blade was used to incise the umbilicus at the right and left lateral points. 1 total of 1L of tumescent solution was placed into the abdomen with 400cc in each flank and the remaining around the superior and inferior umbilicus. This was allowed to sit for 30 minutes while the breasts were addressed. The flaps were de-epithelialized bilaterally. Seroma pockets were encountered bilaterally with firm capsules noted especially on the left. The right capsules and a smaller left capsule located near the axilla and lateral chest were removed en bloc capsulectomy. The left chest also had a larger separate seroma cavity and capsule over theentirety of the pectoralis major muscle and was tightly adherent to the muscle. This was scored throughout and radial capsulotomy was completed on that capsule. The superior portion of the flaps were then undermined superiorly to take off tension on the closure. The pockets were washed out with several rounds of antibiotic irrigation and hemostasis was obtained with bovie electrocautery. This was done bilaterally. A 15 F round drain was placed along the inferior pocket and exiting laterally. Each of the incisions were then closed temporarily with moncho. The decision was made to connect the incisions at the midline as the patient still had remaining dog ears and fullness here and that was an area that really botherered her. At this time the abdomen was liposuctioned with the revolve system. 200cc of good quality fat was attained. This was transferred to 10cc syringed and 60cc of fat was grafted throughout each breast in areas of uneven concavity. The incisions were then fully closed with interrupted 3-0 Vicryls and then multiple deep dermal 4-0Vicryl sutures followed by 4-0 Monocryl suture to close the skin edges. Surgical glue was applied. The drains were dressed with a Biopatch and Tegaderms. The umbilicus was closed with two 5-0 fast gut sutures. The patient tolerated the procedure well without apparent complications, was extubated and was transferred to the postoperative holding area in stable condition. All sponge, needle, and instrument counts were correct at the end of the procedure. The patient will be discharged home and will follow up the next day for postoperative wound check. SPECIMENS: Breast specimens Right and left skin and capsules. SPONGE AND INSTRUMENT COUNT: Correct at the end of the case. DRAINS 2 (15 F) JPs ESTIMATED BLOOD LOSS: Minimal IV FLUIDS: Per anesthesia. COMPLICATIONS: None IMPLANTS: None CONDITION ON DISCHARGE: Stable DISPOSITION: To PACU with plans to be dicharged home with follow-up at [facility] tomorrow. Giacomo Correa MD [facility] Plastic Surgery [employer] documented in this encounter Miscellaneous Notes * Clinical References AVS - Betina Shah RN - 06/08/2023 10:35 AM FOLDER SEAMER [employer]OM[employer] Images from the original note were not included. [id number] Scopolamine Transdermal System Brands: Transderm Scop Uses For nausea or vomiting. Instructions DO NOT take this medicine by mouth. Place the patch behind the ear. Keep the medicine at room temperature. Avoid heat and direct light. This patch should not be cut. Wash your hands before and after handling this medicine. Remove old patch before applying new one. Change the location of the new patch. Remove the plastic liner that protects the sticky side of the patch before applying to the skin. Be sure the area of skin is clean and dry before putting on a new patch. Do not use soap, oils, or alcohol on the area of the skin before applying the patch. Use only waterand gently pat dry. Do not rub the skin. Apply the patch to a clean, dry, hairless area. Avoid skin that is red, scraped, or damaged. Do not shave the hair. It irritates the skin. If needed, use scissors to cut the hair close to the skin. Press the patch firmly for a few seconds to make sure it stays in place. If the patch does not stick, speak with your doctor or pharmacist. Do not cover the patch with bandage or tape unless instructed by your doctor or pharmacist. After removing the patch, fold it together and discard it out of reach of children and pets. Do not dispose of a used patch by flushing it into the toilet. Avoid getting the medicine in the eyes, nose, or mouth. Wash your hands after touching patch. If the patch falls off or you forgot to use the patch on time, apply a new patch immediately to a different location. Replace this new patch at your next usual dosing time. Tell your doctor and pharmacist about all your medicines. Include prescription and lxmr-wiy-huvfudvwdjgqicxu, vitamins, and herbal medicines. To relieve dry mouth, chew gum, suck on hard candy/ice chips, drink extra water, or use a saliva substitute. Cautions Tell your doctor and pharmacist if you ever had an allergic reaction to a medicine. Do not use the medication any more than instructed. Your ability to stay alert or to react quickly may be impaired by this medicine. Do not drive or operate machinery until you know how this medicine will affect you. Tell the doctor or pharmacist if you are , planning to be , or . Do not start or stop any other medicines without first speaking to your doctor or pharmacist. Do not share this medicine with anyone who has not been prescribed this medicine. Some patients have serious side effects from this medicine. Ask your pharmacist to show you the information from the Food and Drug Administration (FDA) and discuss it with you. Side Effects The following is a list of some common side effects from this medicine. Please speak with your doctor about what you should do if you experience these or other side effects. ?? blurry vision ?? dizziness or drowsiness ?? dilation of the pupils ?? red, burning, or itchy skin ?? skin irritation where medicine is applied ?? slurred speech Call your doctor or get medical help right away if you notice any of these more serious side effects: ?? agitated feeling or trouble sleeping ?? confusion ?? hallucinations (unusual thoughts, seeing or hearing things that are not real) ?? fast or irregular heart beats ?? mood changes ?? seizures ?? difficulty or discomfort urinating ?? seeing halos or colors around lights A few people may have an allergic reaction to this medicine. Symptoms can include difficulty breathing, skin rash, itching, swelling, or severe dizziness. If you notice any of these symptoms, seek medical help quickly. Extra Please speak with your doctor, nurse, or pharmacist if you have any questions about this medicine. [email or web address] IMPORTANT NOTE: This document tells you briefly how to take your medicine, but it does not tell youall there is to know about it. Your doctor or pharmacist may give you other documents about your medicine. Please talk to them if you have any questions. Always follow their advice. There is a more complete description of this medicine available in [place]. Scan this code on your smartphone or tablet or use the web address below. You can also ask your pharmacist for a printout. If you have any questions, please ask your pharmacist. The display and use of this drug information is subject to Terms of Use. Copyright(c) 2022 [employer]. ?? 7015-1264 [employer]. All rights reserved. This information is not intended as a substitute for professional medical care. Always follow your healthcare professional's instructions. ER SEAMER [employer]OMAT[employer] documented in this encounter Plan of Treatment Upcoming Encounters Date Type Department Care Team (Late st Contact Info) Description 07/19/2024 9:45 AM FOLDER SE[employer]ER [employer] Office Visit [facility] - NEGATIVE STRIPPER [address] [place] [address] Leatha Gutpa MD [address] [place] [address] 12/11/2024 9:00 AM CDT Office Visit [facility] - Surgery [address] [place] [address], [address] [address] Naya Leonard DO [facility] SAM SANTOS [address] [address] 12/11/2024 10:40 AM CDT Office Visit [facility] [address] [place] [id number] Bernardo Lizarraga MD [address] [place], [place] [address]SERG SANTOS [address] [address] documented as of this encounter Procedures Procedure Name Priority Date/Time Associated Diagnosis Comments CARDIAC RHYTHM STRIP ORDER 06/09/2023 5:11 PM [employer] PATHOLOGY TISSUE EXAM (STL) Routine 06/08/2023 1:41 PM [employer]DER [employer] Malignant neoplasm of right female breast, unspecified estrogen receptor status, unspecified site of breast (HCC) ID GRFG AUTOL FAT LIPO 50 CC/< 06/08/2023 12:12 PM [employer] Malignant neoplasm of right female breast, unspecified estrogen receptor status, unspecified site of breast (HCC) ID INSERTION BREAST IMPLANT SAME DAY OF MASTECTOMY 06/08/2023 12:12 PM [employer] Malignant neoplasm of right female breast, unspecified estrogen receptor status, unspecified site of breast (HCC) documented in this encounter Results * CARDIAC RHYTHM STRIP ORDER (06/09/2023 5:11 PM F[employer]DER SE[employer]) Narrative 06/09/2023 5:11 PM [employer] Ordered by an unspecified provider. Scanned Document CARDIAC SERVICES ORD ERABLES * PATHOLOGY TISSUE EXAM (STL) (06/08/2023 1:41 PM FOLDER SEAMER [employer]OM[employer]) Case Report Surgical Pathology Report ? Case: [id number] ? Authorizing Provider: ??Giacomo Correa MD ? Collected: ? 06/08/2023 01:41 PM ? [facility] ??Received: ?06/09/2023 09:00 AM ? - [facility] ? Pathologist: ? Eber Ordonez MD ? Specimens: ?? A) - Breast Capsule, left breast capsule ? B) - Breast Capsule, right breast capsule ? 06/10/2023 2:42 PM [facility] Final Diagnosis Skin and breast implant capsule, left, excision: Cutaneous scar Fibrotic implant capsule with fat necrosis and foreign body reaction Negative for malignancy Skin and breast implant capsule, right, excision: Cutaneous scar Fibrotic implant capsule with foreign body reaction Negative for malignancy 06/10/2023 2:42 PM [facility] Clinical History PREOPERATIVE DIAGNOSIS: Breast cancer reconstruction revision POSTOPERATIVE DIAGNOSIS: same -status post mastectomies for bilateral breast carcinoma SURGERY PERFORMED: Bilateral Breast Reconstruction Delayed Local tissue rearrangement 06/10/2023 2:42 PM [facility] Gross Description There are 2 formalin filled specimen containers received. Specimen A labeled ? left breast capsule? consists of a 20 x 5 x 1.6 cm ellipse of hurtado wrinkled skin and underlying fibrofatty breast tissue with smooth, capsular surface. There is an 18 cm well-healed scar. There are additional fragments of fibrofatty tissue in aggregate 13 x 4 x 1.5 cm. Few fragments have hurtado glistening capsule consistent with implant capsule. Sectioning reveals predominantly unremarkable yellow-hurtado adipose tissue with few areas of fat necrosis. Compress Trucker sections are submitted in A1 -2. Specimen B labeled ? right breast capsule? consists of a 21 x 7 x 3 cm ellipse of hurtado wrinkled skin and underlying fibrofatty breast tissue. There is a 17 cm well-healed scar with slight red erythematous appearance. Remainder of skin is unremarkable. Deep margin has smooth glistening, capsule. Section reveals less than 5% fibrous tissue and few areas of fat necrosis. Compress Trucker sections are submitted in B1 -3. 06/10/2023 2:42 PM [facility] Microscopic Description Microscopic examination corroborates the diagnosis. 06/10/2023 2:42 PM [facility] Performed By [facility] at [facility], [address] [place] [address]. [id number]. 06/10/2023 2:42 PM [facility] Disclaimer All histochemical and/or immunohistochemical results are interpreted with controls that demonstrate appropriate staining reactions before reporting results. Note on use of immunocytochemistry reagents: This test was developed and its performance characteristic determined by [facility], Department of Laboratory Medicine. It has not [...] tissues. Results should be interpreted with caution. 06/10/2023 2:42 PM [facility] Embedded Images 06/10/2023 2:42 PM [facility] Pathology/Cytology CAPSULAR BREAST CONTRACTURE OF BREAST IMPLANT / Unknown 06/08/2023 1:41 PM F[employer]DER [employer] 06/09/2023 9:00 AM FOLDER SE[employer]ER [employer]OM[employer]IC Comment:Pre-op diagnosis: Malignant neoplasm of right female breast, unspecified estrogen receptor status, unspecified site of breast (CMS/HCC) [C50.911] Miscellaneous samples (specimen) CAPSULAR BREAST CONTRACTURE OF BREAST IMPLANT / Unknown 06/08/2023 1:41 PM F[employer]DER SE[employer]ER [employer]IC 06/09/2023 9:00 AM FOLDER SE[employer]ER [employer]OM[employer]IC Comment:Pre-op diagnosis: Malignant neoplasm of right female breast, unspecified estrogen receptor status, unspecified site of breast (CMS/HCC) [C50.911] Giacomo Correa MD LAB - PATHOLOGY/CYTO LOGY ORDERABLES [facility] [address] [place] [address] documented in this encounter Visit Diagnoses Diagnosis 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 Malignant neoplasm of right female breast, unspecified estrogen receptor status, unspecified site of breast (HCC) Malignant neoplasm of right female breast, unspecified estrogen receptor status, unspecified site of breast (HCC) documented in this encounter Administered Medications Inactive Administered Medications - up to 3 most recent administrations Medication Order MAR Action Action Date Dose Rate Site 0.9% NaCl irrigation solution CONTINUOUS PRN, Starting on Wed06/08/23 at 1329, Until Wed06/08/23 at 1455, Intra-op $ New Bag/Syringe 06/08/2023 1:29 PM F[employer]DER SEAMER [employer]OM[employer]IC 1,000 mL BUPivacaine 0.5% - EPINEPHrine 1:200,000 (PF) injection PRN, Starting on Wed06/08/23 at 1329, Until Wed06/08/23 at 1459, Intra-op $ Given 06/08/2023 1:29 PM FOLDER SE[employer]ER [employer]OM[employer] 10 mL BUPivacaine liposome (Exparel) 1.3 % injection PRN, Starting on Wed06/08/23 at 1330, Until Wed06/08/23 at 1459, Intra-op $ Given 06/08/2023 1:30 PM FOLDER SE[employer]ER [employer]OM[employer] 20 mL ceFAZolin (Ancef) 2 g in 0.9% NaCl IV 50 mL IVPB 2 g, at 100 mL/hr, Intravenous, PRE-OP MULTIPLE, Starting on Wed06/08/23 at 0949, Until Wed06/08/23 at 1804, Administer 30 minutes prior to surgical incision. May redose in 3 hours if surgical incision not yet closed., Indication for anti-infective therapy: Surgical prophylaxis, Pre-op $ New Bag/Syringe 06/08/2023 12:20 PM F[employer]DER SEAMER [employer]OM[employer]IC 2 g 100 mL/hr famotidine (Pepcid) injection 20 mg 20 mg, Intravenous, PRE-OP ONCE, 1 dose, On Wed06/08/23 at 1045, Dilute with 0.9% NaCl, D5W solution, or SWI to a volume of 5 to 10 mL and administer over at least 2 minutes., Pre-op $ Given 06/08/2023 10:32 AM FOLDER SEAMER [employer]OMATIC 20 mg fentaNYL (PF) (Sublimaze) injection 50 mcg 50 mcg, Intravenous, EVERY 3 MIN PRN, Mild Pain, 4 doses, Starting on Wed06/08/23 at 1357, Until Wed06/08/23 at 1804, Maximum total of 4 doses. If patient reaches max total dose, please consult anesthesiologist prior to further administration of pain meds. Hold pain meds if there are signs of hypoventilation. Patient preference for lesser PRN pain meds may be honored when the patient requests a less strong medication, a lower dose, or a less intrusive route of administration when the lesser drug, dose and route have been ordered for the patient. This patient request must be documented in the MAR., PACU $ Given 06/08/2023 3:49 PM FOLDER SEAMER [employer]OMATIC 50 mcg $ Given 06/08/2023 3:41 PM FOLDER SEAMER [employer]OM[employer]IC 50 mcg HYDROmorphone (Dilaudid) injection 0.5 mg 0.5 mg, Intravenous, EVERY 5 MIN PRN, Severe Pain, 4 doses, Starting on Wed06/08/23 at 1357, Until Wed06/08/23 at 1804, Maximum total of 4 doses If patient reaches max total dose, please consult anesthesiologist prior to further administration of pain meds. Hold pain meds if there are signs of hypoventilation. Patient preference for lesser PRN pain meds may be honored when the patient requests a less strong medication, a lower dose, or a less intrusive route of administration when the lesser drug, dose and route have been ordered for the patient. This patient request must be documented in the MAR., PACU lactated ringers infusion at 100 mL/hr, Intravenous, CONTINUOUS, Starting on Wed06/08/23 at 1000, Until Wed06/08/23 at 1804, Pre-op $ New Bag/Syringe 06/08/2023 2:27 PM FOLDER SEAMER [employer]OM[employer] $ New Bag/Syringe 06/08/2023 10:10 AM FOLDER SEAMER [employer]OMATIC 100 m L/hr lactated ringers infusion at 125 mL/hr, Intravenous, CONTINUOUS, Starting on Wed06/08/23 at 1400, Until Wed06/08/23 at 1804, PACU lidocaine PF (Xylocaine MPF) 1 % 100 mL, EPINEPHrine 1 MG/ML 1 mL in 0.9% NaCl IV 1,101 mL solution PRN, Starting on Wed06/08/23 at 1332, Until Wed06/08/23 at 1459, Intra-op $ Given 06/08/2023 1:32 PM FOLDER SE[employer]ER [employer]OM[employer]IC lidocaine PF (Xylocaine MPF) 1 % injection 0.2 mL 0.2 mL, Infiltration, PRE-OP MULTIPLE, 3 doses, Starting on Wed06/08/23 at 1032, Until Wed06/08/23 at 1804, May be used (0.2 ml locally to anesthetize prior to insertion)., Pre-op morphine injection 4 mg 4 mg, Intravenous, EVERY 5 MIN PRN, Moderate Pain, 5 doses, Starting on Wed06/08/23 at 1357, Until Wed06/08/23 at 1804, Maximum total of 4 doses. If patient reaches max total dose, please consult anesthesiologist prior to further administration of pain meds. Hold pain meds if there are signs of hypoventilation. Patient preference for lesser PRN pain meds may be honored when the patient requests a less strong medication, a lower dose, or a less intrusive route of administration when the lesser drug, dose and route have been ordered for the patient. This patient request must be documented in the MAR., PACU naloxone (Narcan) injection 0.04 mg 0.04 mg, Intravenous, POST-OP MULTIPLE, Starting on Wed06/08/23 at 1357, Until Wed06/08/23 at 1804, If respiration rate is less than 7 per minute administer IV every 1 minute until respirations are greater than 12 per minute. Notify anesthesia immediately., PACU scopolamine (Transderm-Scop) 1 patch 1 patch, Administer over 72 Hours, PRE-OP ONCE, 1 dose, On Wed06/08/23 at 1045, Apply patch behind the ear, do not cut patch, only 1 patch should be worn at a time and remove old patch before applying new patch.This patch may contain metal and is not compatible with MRI. Notify radiology of patch location upon arrival to MRI. Each patch contains 1.5 mg scopolamine base and is formulated to deliver 1 mg of scopolamine over 72 hours. $ Applied 06/08/2023 10:32 AM FOLDER SEAMER [employer]OMATIC 1 patch Behind Left Ear scopolamine patch placement confirmation Transdermal, 2 TIMES DAILY, First dose on Wed06/08/23 at 1045, Until Discontinued, Patient has a patch to be confirmed on transition to inpatient and 2 times daily., Pre-op tranexamic acid (Cyklokapron) injection PRN, Starting on Wed06/08/23 at 1330, Until Wed06/08/23 at 1459, Intra-op $ Given 06/08/2023 1:30 PM F[employer]DER SE[employer]ER [employer] 4,000 mg documented in this encounter Active and Recently Administered Medications Times are shown in F[employer]DER [employer]. Scheduled Medication Order 06/06/2023 06/07/2023 06/08/2023 ceFAZolin (Ancef) 2 g in 0.9% NaCl IV 50 mL IVPB 2 g, at 100 mL/hr, Intravenous, PRE-OP MULTIPLE, Starting on Wed06/08/23 at 0949, Until Wed06/08/23 at 1804, Administer 30 minutes prior to surgical incision. May redose in 3 hours if surgical incision not yet closed., Indication for anti-infective therapy: Surgical prophylaxis, Pre-op 1220 ($ New Bag/Syri nge - Provider: Betina Shah RN)1250 (Due: Stopped - Provider: Betina Shah RN) famotidine (Pepcid) injection 20 mg (COMPLETED) 20 mg, Intravenous, PRE-OP ONCE, 1 dose, On Wed06/08/23 at 1045, Dilute with 0.9% NaCl, D5W solution, or SWI to a volume of 5 to 10 mL and administer over at least 2 minutes., Pre-op 1032 ($ Given - Prov ider: Betina Shah RN) insulin regular human (HumuLIN R; NovoLIN R) 100 UNIT/ML injection 0-6 Units 0-6 Units, Intravenous, ONCE, 1 dose, On Wed06/08/23 at 1400, POC Glucose Regular Insulin Dose 0 - 180 mg/dL = 0 units 181 - 220 mg/dL = 3 units 221 - 260 mg/dL = 4 units 261 - 300 mg/dL = 5 units Above 300 mg/dL = 6 units . WASTE DISPOSAL INSTRUCTIONS: Black Bin Disposal required., PACU 1400 (Due) lidocaine PF (Xylocaine MPF) 1 % injection 0.2 mL 0.2 mL, Infiltration, PRE-OP MULTIPLE, 3 doses, Starting on Wed06/08/23 at 1032, Until Wed06/08/23 at 1804, May be used (0.2 ml locally to anesthetize prior to insertion)., Pre-op naloxone (Narcan) injection 0.04 mg 0.04 mg, Intravenous, POST-OP MULTIPLE, Starting on Wed06/08/23 at 1357, Until Wed06/08/23 at 1804, If respiration rate is less than 7 per minute administer IV every 1 minute until respirations are greater than 12 per minute. Notify anesthesia immediately., PACU scopolamine (Transderm-Scop) 1 patch(Linked Group 1) 1 patch, Administer over 72 Hours, PRE-OP ONCE, 1 dose, On Wed06/08/23 at 1045, Apply patch behind the ear, do not cut patch, only 1 patch should be worn at a time and remove old patch before applying new patch.This patch may contain metal and is not compatible with MRI. Notify radiology of patch location upon arrival to MRI. Each patch contains 1.5 mg scopolamine base and is formulated to deliver 1 mg of scopolamine over 72 hours. 1032 ($ Applied - Pr ovider: Betina Shah RN)1640 (Due: Removed - Provider: Generic, Auto Release - Comment: Time automatically adjusted from order being discontinued) scopolamine patch placement confirmation(Linked Group 1) Transdermal, 2 TIMES DAILY, First dose on Wed06/08/23 at 1045, Until Discontinued, Patient has a patch to be confirmed on transition to inpatient and 2 times daily., Pre-op 1045 (Due) Continuous Medication Order 06/06/2023 06/07/2023 06/08/2023 lactated ringers infusion at 100 mL/hr, Intravenous, CONTINUOUS, Starting on Wed06/08/23 at 1000, Until Wed06/08/23 at 1804, Pre-op 1010 ($ New Bag/Syri nge - Provider: Betina Shah RN)1426 (Paused - Provider: JULIO CESAR Lindsey - Comment: Switch to gravity)1427 ($ New Bag/Syringe - Provider: JULIO CESAR Lindsey)1453 (Anesthesia Volume Adjustment - Provider: JULIO CESAR Lindsey) lactated ringers infusion at 125 mL/hr, Intravenous, CONTINUOUS, Starting on Wed06/08/23 at 1400, Until Wed06/08/23 at 1804, PACU 1400 (Due) PRN Medication Order 06/06/2023 06/07/2023 06/08/2023 0.9% NaCl irrigation solution (COMPLETED) CONTINUOUS PRN, Starting on Wed06/08/23 at 1329, Until Wed06/08/23 at 1455, Intra-op 1329 ($ New Bag/Syri nge - Provider: Giacomo Correa MD) BUPivacaine 0.5% - EPINEPHrine 1:200,000 (PF) injection (CANCELED) PRN, Starting on Wed06/08/23 at 1329, Until Wed06/08/23 at 1459, Intra-op 1329 ($ Given - Prov ider: Giacomo Correa MD - Comment: 10ml mixed with 20ml of 1.3% exparil, issued to sterile field. see Dr. Correa's OP note for details) BUPivacaine liposome (Exparel) 1.3 % injection (CANCELED) PRN, Starting on Wed06/08/23 at 1330, Until Wed06/08/23 at 1459, Intra-op 1330 ($ Given - Prov ider: Giacomo Correa MD - Comment: 10ml mixed with 20ml of 1.3% exparil, issued to sterile field. see Dr. Correa's OP note for details) fentaNYL (PF) (Sublimaze) injection 50 mcg 50 mcg, Intravenous, EVERY 3 MIN PRN, Mild Pain, 4 doses, Starting on Wed06/08/23 at 1357, Until Wed06/08/23 at 1804, Maximum total of 4 doses. If patient reaches max total dose, please consult anesthesiologist prior to further administration of pain meds. Hold pain meds if there are signs of hypoventilation. Patient preference for lesser PRN pain meds may be honored when the patient requests a less strong medication, a lower dose, or a less intrusive route of administration when the lesser drug, dose and route have been ordered for the patient. This patient request must be documented in the MAR., PACU 1541 ($ Given - Prov ider: Lupe Irwin RN)1549 ($ Given - Provider: Lupe Irwin RN) HYDROmorphone (Dilaudid) injection 0.5 mg 0.5 mg, Intravenous, EVERY 5 MIN PRN, Severe Pain, 4 doses, Starting on Wed06/08/23 at 1357, Until Wed06/08/23 at 1804, Maximum total of 4 doses If patient reaches max total dose, please consult anesthesiologist prior to further administration of pain meds. Hold pain meds if there are signs of hypoventilation. Patient preference for lesser PRN pain meds may be honored when the patient requests a less strong medication, a lower dose, or a less intrusive route of administration when the lesser drug, dose and route have been ordered for the patient. This patient request must be documented in the MAR., PACU lidocaine PF (Xylocaine MPF) 1 % 100 mL, EPINEPHrine 1 MG/ML 1 mL in 0.9% NaCl IV 1,101 mL solution (CANCELED) PRN, Starting on Wed06/08/23 at 1332, Until Wed06/08/23 at 1459, Intra-op 1332 ($ Given - Prov ider: Giacomo Correa MD) morphine injection 4 mg 4 mg, Intravenous, EVERY 5 MIN PRN, Moderate Pain, 5 doses, Starting on Wed06/08/23 at 1357, Until Wed06/08/23 at 1804, Maximum total of 4 doses. If patient reaches max total dose, please consult anesthesiologist prior to further administration of pain meds. Hold pain meds if there are signs of hypoventilation. Patient preference for lesser PRN pain meds may be honored when the patient requests a less strong medication, a lower dose, or a less intrusive route of administration when the lesser drug, dose and route have been ordered for the patient. This patient request must be documented in the MAR., PACU tranexamic acid (Cyklokapron) injection (CANCELED) PRN, Starting on Wed06/08/23 at 1330, Until Wed06/08/23 at 1459, Intra-op 1330 ($ Given - Prov ider: Giacomo Correa MD - Comment: 4000 mg of TXA mixed with 200mL of 0.9% injectable NaCl, used as irrigation for bilateral breasts ( 100ml per side)) Linked Groups Order Group 1: scopolamine (Transderm-Scop) 1 patchJump to med 1 patch, Administer over 72 Hours, PRE-OP ONCE, 1 dose, On Wed06/08/23 at 1045, Apply patch behind the ear, do not cut patch, only 1 patch should be worn at a time and remove old patch before applying new patch.This patch may contain metal and is not compatible with MRI. Notify radiology of patch location upon arrival to MRI. Each patch contains 1.5 mg scopolamine base and is formulated to deliver 1 mg of scopolamine over 72 hours. And scopolamine patch placement confirmationJump to med Transdermal, 2 TIMES DAILY, First dose on Wed06/08/23 at 1045, Until Discontinued, Patient has a patch to be confirmed on transition to inpatient and 2 times daily., Pre-op documented in this encounter Care Teams [employer] Laborer Relationship Specialty Start Date End Date Celina Sifuentes MD [address] [place] [phone] PCP - General Family Medicine 02/16/23 11/14/23 [place] [address] [place] [phone] Surgical Oncologist Surgical Oncology 02/15/23 [place] [address] [place] [phone] Folder Machine Operator/Oncologist Hematology and Oncology 02/16/23 documented as of this encounter
--- OUTSIDE RECORDS SUMMARY | 2024-07-02 04:41 | XMS_ITS | Encounter Summary ---
Author Organization [facility] Address [address] [place] [address] Care Team Providers Care Court Collections Officer Name Role Phone HoracioNaya Irving DO Unavailable [phone] Bernardo Lizarraga MD Unavailable [phone] Celina Sifuentes MD Primary Care Provider [phone] Reason for Visit * Reason Comments Follow-up Clara and brauilo on chest well Encounter Details Date Type Department Care Team (Late st Contact Info) Description 09/29/2023 9:40 AM CDT Office Visit [facility] - Surgery [address] [place] [address], [address] [address] Ernesto Melendez MD [address] [place] [id number] 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 Patient was instructed tocontact primary care physician or ordering provider with any questions regarding medications. documented in this encounter Progress Notes * Ernesto Melendez MD - 09/29/2023 9:40 AM CDT Chief Complaint: Mass left anterior chest wall History and Physical: Betina Coy is a 53 year old female who is referred Celina Sifuentes MD. She underwent a bilateral mastectomy in February 2023 by my associate. She subsequently underwent chest wall scar revisionwith Plastic surgery. The patient had some liposuction and fat injection performed at that time. She now has a small mass high on the chest wall on the left Past Medical History: Diagnosis Date ??? Breast CA (HCC) Right ??? COVID 06/2021 ??? Elevated cholesterol ??? Hypothyroid ??? MVP (mitral valve prolapse) pt denies ??? PCOS (polycystic ovarian syndrome) Past Surgical History: Procedure Laterality Date ??? Breast Reconstruction N/A 06/08/2023 N/A; TOTAL AUTOLOGOUS BILATERAL BREAST RECONSTRUCTION ??? Bunionectomy Bilateral ??? COLONOSCOPY N/A 09/27/2023 N/A; COLONOSCOPY SCREEN ??? EXCISION/ DESTRUCTION TUMOR/MASS Bilateral 02/25/2023 Bilateral; Incision and drainage bilateral chest wall seroma and placement Shalom drains ? Hemorrhoidectomy ??? MAMMO STEREOTACTIC RIGHT BIOPSY Right 01/06/2023 MAMMO STEREOTACTIC RIGHT BIOPSY 01/06/2023 [facility] ??? MASTECTOMY, SIMPLE Bilateral 02/18/2023 Bilateral; RIGHT SIMPLE MASTECTOMY, RIGHT SENTINEL LYMPH NODE BX, LEFT PROPHYLACTIC MASTECTOMY ??? NEEDLE BIOPSY Right right breast 2 cyst aspirations ??? OTHER SURGERY breast cyst aspiration ??? PLASTIC SURGERY PROCEDURE N/A 06/08/2023 N/A; FAT GRAFTING FROM ADBOMEN AND LOCAL TISSUE REARRANGEMENT ??? US BREAST RIGHT BIOPSY Right 01/06/2023 US BREAST RIGHT BIOPSY 01/06/2023 [facility] No Known Allergies Current Outpatient Medications on File Prior to Visit Medication Sig Dispense Refill ??? ascorbic acid (Vitamin C) 250 MG tablet Take 1 (one) tablet by mouth once daily ??? atorvastatin (Lipitor) 20 MG tablet Take 1 (one) tablet by mouth at bedtime (Patient not taking: Reported on 09/27/2023) 100 tablet 4 ??? multivitamin daily tablet Take 1 (one) tablet by mouth daily with food ??? tamoxifen (Nolvadex) 20 MG tablet Take 1 (one) tablet by mouth once daily 90 tablet 1 No current facility-administered medications on file prior to visit. Social History Tobacco Use ??? Smoking status: Never ??? Smokeless tobacco: Never Vaping Use ??? Vaping Use: Never used Substance Use Topics ??? Alcohol use: No ??? Drug use: Never Family History Problem Relation Name Age of Onset ??? Other Mother breast cyst ??? Cancer - Breast Paternal Grandmother Physical Examination: Constitutional: Vital signs are stable and the patient is no acute distress. Neck: Neck is supple without JVD Chest wall exam: There is a small approximately 2.5 cm well-defined mass on the left anterior chestwall. Unclear whether this is fluid or fat necrosis. Dynamic ultrasound show a well encapsulated area of fat without fluid. Impression/Plan: Likely localized area of fat necrosis. Will refer back to Plastic surgery to see if they want to perform a liposuction of this area. If they do not I can always excise this. 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 Office Visit [facility] - [facility] [address] [place] [address] Leatha Gupta MD [address] [place] [address] 12/11/2024 9:00 AM CDT Office Visit [facility] - Surgery [address] [place] [address], [address] [place] [address] Naya Leonard [place] [id number] [place] [address] 12/11/2024 10:40 AM CDT Office Visit [facility] [address] [place] [phone] Bernardo Lizarraga MD [address] [place] [phone] documented as of this encounter Visit Diagnoses Diagnosis Invasive ductal carcinoma of right breast (HCC)- Primary documented in this encounter Care Teams Court Collections Officer Relationship Specialty Start Date End Date Celina Sifuentes MD [address] [place] [address] PCP - General Family Medicine 02/16/23 11/14/23 [place] [address] [place] [phone] Surgical Oncologist Surgical Oncology 02/15/23 [place] [address] [address] [facility] [[email or web address]] [address] [place] [phone] Nurse Ortho/Oncologist Hematology and Oncology 02/16/23 documented as of this encounter
--- OUTSIDE RECORDS SUMMARY | 2024-07-02 04:41 | XMS_ITS | Encounter Summary ---
Author Organization [facility] Address [address] 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 [place] [address] [place] [address] [place] [address] documented as of this encounter Visit Diagnoses Not on filedocumented in this encounter Care Teams Manufacturing Shift Supervisor Relationship Specialty Start Date End Date Celina Sifuentes MD [address] [place] [address] PCP - General Family Medicine 02/16/23 11/14/23 [place] [address] [place] [address] Surgical Oncologist Surgical Oncology 02/15/23 [place] [address] [address] [place] [address] Territory Account Executive/Oncologist Hematology and Oncology 02/16/23 documented as of this encounter
--- OUTSIDE RECORDS SUMMARY | 2024-07-02 04:41 | XMS_ITS | Encounter Summary ---
Author Organization [facility] Address [address] [facility] [place] [address] Care Team Providers Care Industrial X Ray Operator Name Role Phone Naya Leonard DO Unavailable [phone] Bernardo Lizarraga MD Unavailable [phone] Celina Sifuentes MD Primary Care Provider [phone] Reason for Referral * Consultation (Routine) - Closed Specialty Diagnoses / Procedures Referred By Sherie jacobo Referred To Contact Diagnoses Postoperative seroma of subcutaneous tissue after [place] [address] [place] [phone] Referral ID Status Reason Start Date Expiration Date V isits Requested Visits Authorized [id number] Closed Specialty Services Required 04/25/2023 04/24/2024 1 1 Reason for Visit * Reason Comments Post-Op Bilat Mat eval serom a Encounter Details Date Type Department Care Team (Latest Contact Info) Description 04/19/2023 1:30 PM CDT Office Visit [facility] - Surgery [address] [place] [address], [address] [place] [address] [place] [address] [address] [place] [address] Postoperative seroma of subcutaneous tissue after non-dermatologic procedure (Primary Dx) Social History Tobacco Use Types Packs/Day Years Used Date Smoking Tobacco: Never Smokeless Tobacco: Never Tobacco Cessation:Counseling Given: No Alcohol Use Standard Drinks/Week Comments No 0 (1 standard drink = 0.6 oz pur e alcohol) PHQ-2 Answer Date Recorded Patient Health Questionnaire-2 Score 0 04/19/2023 Sex and Gender Information Value Date Recorded Sex Assigned at Female 10/08/2021 2:50 AM CDT Gender Identity Female 10/08/2021 2:50 AM CDT Sexual Orientation Straight 10/08/2021 2 :50 AM CDT documented as of this encounter Last Filed Vital Signs Vital Sign Reading Time Taken Comments Blood Pressure - - Pulse - - Temperature - - Respiratory Rate - - Oxygen Saturation - - Inhaled Oxygen Concentration - - Weight 85.3 kg (188 lb) 04/19/2023 1:34 PM CDT Height 163.8 cm (5' 4.5 ) 04/19/2023 1:34 PM CDT Body Mass Index 31.77 04/19/2023 1:34 PM CDT documented in this encounter Patient Instructions * Patient Instructions* Coretta Mercado LPN - 04/19/2023 1:35 PM CDT Patient's medications and allergies were reviewed with the patient today. Patient was instructed tocontact primary care physician or ordering provider with any questions regarding medications. documented in this encounter Progress Notes * Naya Leonard DO - 04/19/2023 1:30 PM CDT Betina Coy is a 52 year old female who is here for a third postoperative visit following 02/18/2023 1. Right Simple Mastectomy 2. Injection of methylene blue dye to right breast 3. Right sentinel lymph node biopsy 4. Left Prophylactic Mastectomy Subsequent incision and drainage, bilateral chest wall seroma with placement of shalom drain, left chest wall; placement of Shalom drain, right chest wall on 02/25/[address] Melendez. Right breast 17cc, left breast 30cc. 03/29 patient seen for second post-op visit, I&D of right breast aspirated 10cc, left breast 92cc. Referring physician is Celina Sifuentes MD. Reports minimal surgical pain.. Exam Right chest wall seroma present, incision well healed Left chest wall incision healed, no seroma Pathology: Final Diagnosis A. Left breast, prophylactic [...] Negative for metastatic carcinoma (0/1) at 0950 Assessment Right infiltrating ductal carcinoma, ERPR positive s/p mastectomy and sentinel lymph node Left LCIS s/p mastectomy Postop right seroma Plan Discussed physical exam findings as well as treatment plan with the patient. Seroma drained in office. Consent obtained. Referred to plastic surgery--possible scar revision/liposuction Return to clinic in 6 months, call sooner if seroma returns. This document was scribed by Abel Grande for Dr. Leonard I have reviewed the above note and verify that I was present during this visit and the information provided is accurate. PROCEDURE NOTE Preoperative Diagnosis: Left chest wall seroma Postoperative Diagnosis: Left Chest wall seroma Procedure: Aspiration of left breast seroma Surgeon: Naya Leonard DO Anesthesia: Local Condition: Stable in the office. Description of Procedure: Once the right breast seroma was prepped in the normal sterile manner, an 18 gauge needle was used to aspirate a total of 45 ml. The fluid was discarded. A dressing was applied. The patient toleratedthe procedure well and left the office in stable condition. documented in this encounter Plan of Treatment Upcoming Encounters Date Type Department Care Team (Late st Contact Info) Description 07/19/2024 9:45 AM BAG SHAKER Office Visit [facility] - AUTOMATION TECHNOLOGIST [address] [place] [address] Leatha Gupta MD [address] [place] [address] 12/11/2024 9:00 AM CDT Office Visit [facility] - Surgery [address] [facility], [address] [place] [address] [place] [address] [address] [facility] [address] [place] [address] 12/11/2024 10:40 AM CDT Office Visit [facility] [address] [place] [address] [address] [place] [address] [place] [address] [address] [facility] [address] [place] [address] Scheduled Referrals Name Type Priority Associated Diagnoses Orde r Schedule AMB REFERRAL TO PLASTIC SURGERY Outpatient Referral Routine Postoperative seroma of subcutaneous tissue after non-dermatologic procedure 1 Occurrences starting 04/25/2023 until 04/19/2024 documented as of this encounter Visit Diagnoses Diagnosis Postoperative seroma of subcutaneous tissue after non-dermatologic procedure- Primary documented in this encounter Care Teams Industrial X Ray Operator Relationship Specialty Start Date End Date Celina Sifuentes MD [address] [place] [address] PCP - General Family Medicine 02/16/23 11/14/23 [place] [address] [address] [facility] [address] [place] [address] Surgical Oncologist Surgical Oncology 02/15/23 [place] [address] [address] [facility] [address] [place] [address] Ammonia Nitrate Operator/Oncologist Hematology and Oncology 02/16/23 documented as of this encounter
--- OUTSIDE RECORDS SUMMARY | 2024-07-02 04:41 | XMS_ITS | Encounter Summary ---
Author Organization [facility] Address [address] [place] [address] Care Team Providers Care Digital Media Analyst Name Role Phone HoracioNaya Irving DO Unavailable [phone] Bernardo Lizarraga MD Unavailable [phone] Celina Sifuentes MD Primary Care Provider [phone] Reason for Visit * Auth/Cert (Routine) Specialty Diagnoses / Procedures Referred By Contac t Referred To Contact Diagnoses Malignant neoplasm of right female breast, unspecified estrogen receptor status, unspecified site of breast (HCC) Malignant neoplasm of right female breast, unspecified estrogen receptor status, unspecified site of breast (CMS/HCC) [C50.911] Procedures [place] INSERTION BREAST IMPLANT SAME DAY OF MASTECTOMY [place] GRFG AUTOL FAT LIPO 50 CC/< AZ REVISION ANGELA-IMPLANT CAPSULE BREAST RECONSTRUCTION BREAST / INSERTION BREAST PROSTHESIS GRAFT/TRANSFER FAT CAPSULOTOMY/CAPSULECTOMY BREAST Referral ID Status Reason Start Date Expiration Date Visits Re quested Visits Authorized [id number] 1 1 Encounter Details Date Type Department Care Team (Latest Contact Info) Description 06/08/2023 9:41 AM CONCRETE PILE DRIVER OPERATOR - 06/08/2023 4:40 PM CONCRETE PILE DRIVER OPERATOR Hospital Encounter Outpatient Surgery Center at [facility] Out[facility] Center [address], [facility] [address] [place] [phone] Giacomo Correa MD [address] [place] [phone] Surgery General Discharge Disposition: Home or Self [...] Sign Reading Time Taken Comments Blood Pressure 113/60 06/08/2023 4:20 PM CONCRETE PILE DRIVER OPERATOR Pulse 64 06/08/2023 4:20 PM CONCRETE PILE DRIVER OPERATOR Temperature 36.3 ??C (97.3 ??F) 06/08/2023 2:55 PM CS T Respiratory Rate 10 06/08/2023 4:20 PM CONCRETE PILE DRIVER OPERATOR Oxygen Saturation 97% 06/08/2023 4:20 PM CONCRETE PILE DRIVER OPERATOR Inhaled Oxygen Concentration - - Weight 82.8 kg (182 lb 9.6 oz) 06/08/2023 9:55 A M CONCRETE PILE DRIVER OPERATOR Height 162.6 cm (5' 4 ) 06/08/2023 9:55 AM CONCRETE PILE DRIVER OPERATOR Body Mass Index 31.34 06/08/2023 9:55 AM CONCRETE PILE DRIVER OPERATOR documented in this encounter Functional Status Functional [...] noted Giacomo Correa MD 06/08/2023 8:04 AM RETE PILE DRIVER OPERATOR * Giacomo Correa MD - 06/08/2023 12:00 [...] flap, prosthetic reconstructive methods including the tissue electrolog operator/implant and the combination procedures such as the LD flap with implant placement. We discussed the benefits and risks of each method as well as additional options such as doing nothing or free/alumni relations coordinator flaps. I also had a long discussion [...] the patient. The patient was given the op rtunity to ask questions. - Scar Revision [...] insert signature - Signature Giacomo Correa MD RETE PILE DRIVER OPERATOR documented in this encounter Nursing Notes * Hui Liang RN - 06/01/2023 11:37 AM CST Pre-Op phone call completed. Patient to arrive at [facility] for surgery on 06/08 1000 Patient instructed no solids/food after midnight (including no gum, candy, or mints). Patient instructed to take a cleansing shower with soap the night before surgery, change the bed linens, and then take another cleansing shower with soap the morning of surgery. RETE PILE DRIVER OPERATOR documented in this encounter OR Notes * [...] Role: * Giacomo Correa MD - Primary Combustion Analyst(s): Otilia Kirby Anesthesia Type: general ETT Complications: [...] 06/08/2023 1341 Implant(s): None Giacomo Correa MD RETE PILE DRIVER OPERATOR * Operative - Giacomo Correa MD - 06/08/2023 12:00 PM CST BREAST RECONSTRUCTION [facility] Plastic Surgery Operative Note PATIENT NAME: Betina Coy DATE OF :1970 DATE OF OPERATION:06.08.23 SURGEON:Giacomo Correa MD BATCH ROLLER OPERATOR: Otilia Kirby PREOPERATIVE DIAGNOSIS: Breast cancer reconstruction [...] to be dicharged home with follow-up at [facility] tomorrow. MD [facility] RETE PILE DRIVER OPERATOR documented in this encounter Miscellaneous Notes * Clinical References AVS - Betina Shah RN - 06/08/2023 10:35 AM CONCRETE PILE DRIVER OPERATOR Images from the original note were not included. [id number] Scopolamine Transdermal System Brands: Transderm Scop Uses [...] about all your medicines. Include prescription and onpx-kkz-iarhpeuhxgktbdfh, vitamins, and herbal medicines. To relieve dry [...] you have any questions about this medicine. [email or web address] IMPORTANT NOTE: This document tells you briefly how to take your medicine, but it does not tell youall there is to know about it. Your doctor or pharmacist may give you other documents about your medicine. Please talk to them if you have any questions. Always follow their advice. There is a more complete description of this medicine available in Dominican. Scan this code on your smartphone or tablet or use the web address below. You can also ask your pharmacist for a printout. If you have any questions, please ask your pharmacist. The display and use of this drug information is subject to Terms of Use. Copyright(c) 2022 [employer]. ?? [employer]. All rights reserved. This information is not intended as a substitute for professional medical care. Always follow your healthcare professional's instructions. RETE PILE DRIVER OPERATOR documented in this encounter Plan of Treatment Upcoming Encounters Date Type Department Care Team (Late st Contact Info) Description 07/19/2024 9:45 AM CONCRETE PILE DRIVER OPERATOR Office Visit [facility] - TEST DRIVER [address] [place] [address] Leatha Gupta MD [address] [place] [address] 12/11/2024 9:00 AM CDT Office Visit [facility] - Surgery [address] [place] [address], [address] [address] [place] [id number] [place] [address] 12/11/2024 10:40 AM CDT Office Visit [facility] Cancer Care [address] [place] [address]. [address] [place] [address] Bernardo Lizarraga MD [address] [place] [phone] documented as of this encounter Procedures Procedure Name Priority Date/Time Associated Diagnosis Comments CARDIAC RHYTHM STRIP ORDER 06/09/2023 5:11 PM CONCRETE PILE DRIVER OPERATOR PATHOLOGY TISSUE EXAM (STL) Routine 06/08/2023 1:41 PM CONCRETE PILE DRIVER OPERATOR Malignant neoplasm of right female breast, unspecified estrogen receptor status, unspecified site of breast (HCC) AZ GRFG AUTOL FAT LIPO 50 CC/< 06/08/2023 12:12 PM CONCRETE PILE DRIVER OPERATOR Malignant neoplasm of right female breast, unspecified estrogen receptor status, unspecified site of breast (HCC) [place] INSERTION BREAST IMPLANT SAME DAY OF MASTECTOMY 06/08/2023 12:12 PM CONCRETE PILE DRIVER OPERATOR Malignant neoplasm of right female breast, unspecified estrogen receptor status, unspecified site of breast (HCC) documented in this encounter Results * CARDIAC RHYTHM STRIP ORDER (06/09/2023 5:11 PM CONCRETE PILE DRIVER OPERATOR) Narrative 06/09/2023 5:11 PM CONCRETE PILE DRIVER OPERATOR Ordered by an unspecified provider. Scanned Document CARDIAC SERVICES ORD ERABLES * PATHOLOGY TISSUE EXAM (STL) (06/08/2023 1:41 PM CONCRETE PILE DRIVER OPERATOR) Case Report Surgical Pathology Report ? Case: [id number] ? Authorizing Provider: ??Giacomo Correa MD ? Collected: ? 06/08/2023 01:41 PM ? Ordering Location: ? [facility] ??Received: ?06/09/2023 09:00 AM ? - [facility] Outpatient ? Center ? Pathologist: ? Eber Ordonez MD ? Specimens: ?? A) - Breast Capsule, left breast capsule ? B) - Breast Capsule, right breast capsule ? 06/10/2023 2:42 PM [facility] Final Diagnosis Skin and breast implant capsule, left, excision: Cutaneous scar Fibrotic implant capsule with fat necrosis and foreign body reaction Negative for malignancy Skin and breast implant capsule, right, excision: Cutaneous scar Fibrotic implant capsule with foreign body reaction Negative for malignancy 06/10/2023 2:42 PM [facility] Clinical History PREOPERATIVE DIAGNOSIS: Breast cancer reconstruction revision POSTOPERATIVE DIAGNOSIS: same -status post mastectomies for bilateral breast carcinoma SURGERY PERFORMED: Bilateral Breast Reconstruction Delayed Local tissue rearrangement 06/10/2023 2:42 PM [facility] Gross Description There are 2 formalin [...] tissue with few areas of fat necrosis. Plaster Die Maker sections are submitted in A1 -2. Specimen [...] tissue and few areas of fat necrosis. Plaster Die Maker sections are submitted in B1 -3. 06/10/2023 2:42 PM [facility] Microscopic Description Microscopic examination corroborates the diagnosis. 06/10/2023 2:42 PM [facility] Performed By [facility] at [facility], [address] [place] [address]. [id number]. 06/10/2023 2:42 PM [facility] Disclaimer All histochemical and/or immunohistochemical results are interpreted with controls that demonstrate appropriate staining reactions before reporting results. Note on use of immunocytochemistry reagents: This test was developed and its performance characteristic determined by [facility], Department of Laboratory Medicine. [...] be interpreted with caution. 06/10/2023 2:42 PM [facility] Embedded Images 06/10/2023 2:42 PM [facility] Pathology/Cytology CAPSULAR BREAST CONTRACTURE OF BREAST IMPLANT / Unknown 06/08/2023 1:41 PM CONCRETE PILE DRIVER OPERATOR 06/09/2023 9:00 AM CONCRETE PILE DRIVER OPERATOR Comment:Pre-op diagnosis: Malignant neoplasm of right female breast, unspecified estrogen receptor status, unspecified site of breast (CMS/HCC) [C50.911] Miscellaneous samples (specimen) CAPSULAR BREAST CONTRACTURE OF BREAST IMPLANT / Unknown 06/08/2023 1:41 PM CONCRETE PILE DRIVER OPERATOR 06/09/2023 9:00 AM CONCRETE PILE DRIVER OPERATOR Comment:Pre-op diagnosis: Malignant neoplasm of right female breast, unspecified estrogen receptor status, unspecified site of breast (CMS/HCC) [C50.911] Giacomo Correa MD LAB - PATHOLOGY/CYTO LOGY ORDERABLES [facility] [address] [id number] documented in this encounter Visit Diagnoses Diagnosis [...] Pre-op $ New Bag/Syringe 06/08/2023 12:20 PM CONCRETE PILE DRIVER OPERATOR 2 g 100 mL/hr famotidine (Pepcid) injection 20 mg 20 mg, Intravenous, PRE-OP ONCE, 1 dose, On Wed06/08/23 at 1045, Dilute with 0.9% NaCl, D5W solution, or SWI to a volume of 5 to 10 mL and administer over at least 2 minutes., Pre-op $ Given 06/08/2023 10:32 AM CONCRETE PILE DRIVER OPERATOR 20 mg fentaNYL (PF) (Sublimaze) injection 50 [...] MAR., PACU $ Given 06/08/2023 3:49 PM CONCRETE PILE DRIVER OPERATOR 50 mcg $ Given 06/08/2023 3:41 PM CONCRETE PILE DRIVER OPERATOR 50 mcg HYDROmorphone (Dilaudid) injection 0.5 mg [...] Pre-op $ New Bag/Syringe 06/08/2023 2:27 PM CONCRETE PILE DRIVER OPERATOR $ New Bag/Syringe 06/08/2023 10:10 AM CONCRETE PILE DRIVER OPERATOR 100 m L/hr lactated ringers infusion at 125 mL/hr, Intravenous, CONTINUOUS, Starting on Wed06/08/23 at 1400, Until Wed06/08/23 at 1804, PACU lidocaine PF (Xylocaine MPF) 1 % injection [...] 72 hours. $ Applied 06/08/2023 10:32 AM CONCRETE PILE DRIVER OPERATOR 1 patch Behind Left Ear scopolamine patch placement confirmation Transdermal, 2 TIMES DAILY, First dose on Wed06/08/23 at 1045, Until Discontinued, Patient has a patch to be confirmed on transition to inpatient and 2 times daily., Pre-op documented in this encounter Active and Recently Administered Medications Times are shown in CONCRETE PILE DRIVER OPERATOR. Scheduled Medication Order 06/06/2023 06/07/2023 06/08/2023 ceFAZolin [...] ($ New Bag/Syri nge - Provider: Betina Shah, [place])1250 (Due: Stopped - Provider: Betina Shah, [place]) famotidine (Pepcid) injection 20 mg (COMPLETED) 20 [...] Pre-op documented in this encounter Care Teams Digital Media Analyst Relationship Specialty Start Date End Date Celina Sifuentes MD [address] [facility] [place] [phone] PCP - General Family Medicine 02/16/23 11/14/23 [place] [address] [place] [address] [place] [phone] Surgical Oncologist Surgical Oncology 02/15/23 [place] [address] [phone] Property Condition Assessor/Oncologist Hematology and Oncology 02/16/23 documented as of this encounter
--- OUTSIDE RECORDS SUMMARY | 2024-07-02 04:41 | XMS_ITS | Encounter Summary ---
Author Organization [facility] Address [address] [facility] [place] [address] Care Team Providers Care Naturopathic Physician Name Role Phone Naya Leonard Irving DO Unavailable [phone] Bernardo Lizarraga MD Unavailable [phone] Celina Sifuentes MD Primary Care Provider [phone] Keisha Pineda Primary Care Pr ovider Encounter Details Date Type Department Care Team (Late st Contact Info) Description 03/08/[address] [facility] Outpatient Visit [facility] Cancer Care [address] [place] [address] [place] [id number] [place] [phone] Social History Tobacco Use Types Packs/Day Years [...] AM CDT documented as of this encounter Plan of Treatment Upcoming Encounters Date Type Department Care Team (Late st Contact Info) Description 07/19/2024 9:45 AM MED ADMIN Office Visit [facility] - SCALE CLERK [address] [place] [address] Leatha Gupta MD [address] [place] [address] 12/11/2024 9:00 AM CDT Office Visit [facility] - Surgery [address] [facility], [address] [place] [address] [place] [address] [address] 12/11/2024 10:40 AM CDT Office Visit [facility] Care [address] [place] [address] [address] [place] [address] [place] [address] [facility] [address] [place] [address] documented as of this encounter Visit Diagnoses Not on filedocumented in this encounter Care Teams Naturopathic Physician Relationship Specialty Start Date End Date Celina Sifuentes MD [address] [place] [address] PCP - General Family Medicine 02/16/23 11/14/23 Keisha Pineda PA [address] [place] [phone] PCP - General Physician Sales Operations Coordinator 11/15/23 [place] [address] [address] Surgical Oncologist Surgical Oncology 02/15/23 [place] [address] [place] [phone] Sap Abap Developer/Oncologist Hematology and Oncology 02/16/23 documented as of this encounter
--- OUTSIDE RECORDS SUMMARY | 2024-07-02 04:41 | XMS_ITS | Encounter Summary ---
Author Organization [facility] Address [address] [facility] [place] [address] Care Team Providers Care Permaculture Contractor Name Role Phone HoracioNaya Irving DO Unavailable [phone] Bernardo Lizarraga MD Unavailable [phone] Celina Sifuentes MD Primary Care Provider [phone] Reason for Visit * Reason Comments Follow-up Encounter Details Date Type Department Care Team (Late st Contact Info) Description 03/17/2023 3:00 PM CDT Office Visit [facility] Cancer Care [address] [place] [address] Bernardo Lizarraga MD [address] [place] [phone] Invasive ductal carcinoma of right breast (HCC) (Primary Dx); Family history of cancer; Benign cyst of breast, unspecified laterality; Acute back pain, unspecified back location, unspecified back pain laterality; Premenopausal patient Social History Tobacco Use Types Packs/Day Years Used Date Smoking Tobacco: Never Smokeless Tobacco: Never Tobacco Cessation:Counseling Given: Not Answered Alcohol Use Standard Drinks/Week Comments No 0 (1 standard drink = 0.6 oz pur e alcohol) PHQ-2 Answer Date Recorded Patient Health Questionnaire-2 Score 0 03/17/2023 Sex and Gender Information Value Date Recorded Sex Assigned at Female 10/08/2021 2:50 AM CDT Gender Identity Female 10/08/2021 2:50 AM CDT Sexual Orientation Straight 10/08/2021 2: 50 AM CDT documented as of this encounter Last Filed Vital Signs Vital Sign Reading Time Taken Comments Blood Pressure 105/73 03/17/2023 3:06 PM CDT Pulse 74 03/17/2023 3:06 PM CDT Temperature 36.3 ??C (97.3 ??F) 03/17/2023 3:06 PM CD T Respiratory Rate 16 03/17/2023 3:06 PM CDT Oxygen Saturation 96% 03/17/2023 3:06 PM CDT RA Inhaled Oxygen Concentration - - Weight 85.6 kg (188 lb 12.8 oz) 03/17/2023 3:06 PM CDT Height 163.8 cm (5' 4.5 ) 03/17/2023 3:06 PM CDT Body Mass Index 31.91 03/17/2023 3:06 PM CDT documented in this encounter Patient Instructions * Patient Instructions* Bernardo Lizarraga MD - 03/17/2023 3:40 PM CDT Oncotype low - do not recommend adjuvant chemo As pre-menopausal - recommend treatment with tamoxifen Possible side effects of tamoxifen include but not limited to hot flashes, joint aches, muscle aches - tamoxifen also increased risk of uterine cancer - need yearly pelvic exam while on tamoxifen RTC 1 month to discuss documented in this encounter Progress Notes * Bernardo Lizarraga MD - 03/17/2023 3:00 PM CDT [facility] Clinic Follow Up Assessment: Piotr ?? 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 Grade 1, Ki-67 3%. Bilateral mastectomy 02/18 (Horacio). Treatment history as below. ?? - Family History of breast cancer - in her grandmother. ?? - Benign Breast Cysts - multiple drains in the past. - premenopausal - Adult Health Maintenance ? Plan: ?? Oncotype 21 - do not recommend adjuvant chemo - per NCCN guidelines Do not think she needs radiation with small node-negative tumor status post bilateral mastectomy Patient is pre-menopausal Start tamoxifen 20mg daily - plan for 5 years (03/2028) She already gets yearly pelvic exams Genetic testing is pending Consider blood work ~02/2024 to check menopausal status Will not need surveillance mammograms as she is status post bilateral mastectomy Has colonoscopy scheduled later this year RTC 4 weeks as check in after starting tamoxifen Bernardo Lizarraga MD - Hematology/Oncology Available on lensgen chat during the week Cell# (providers only): [phone] Oncology History: 02/2023 - Diagnosed right breast IDC - ER/DC+, Her2- (1+) - Grade 1, Ki-67 3% 02/2023 - Bilateral mastectomy (Horacio) - [id number] Stage IA - 1.5cm, 0/1 nodes positive. ?? 02/2023 - Oncotype 21 - no adjuvant chemo?? Subjective: Betina Coy presents today for a follow up appointment. Reviewed Oncotype which is low not recommending chemo. She is premenopausal last period was last month. Agreeable to tamoxifen. She already gets yearly pelvic exams. Goal of Therapy: curative Pain Scale Pain Assessment Pain Score: Five Pain Loc: Chest (post-surgical) Physical Examination: Vitals: BP 105/73 Pulse 74 Temp 97.3 ??F (36.3 ??C) Resp 16 Ht 1.638 m (5' 4.5 ) Wt 85.6 kg (188 lb 12.8 oz) SpO2 96% Comment: RA Karnofsky: 90-Able to carry on normal activity: [...] and imaging Recent Labs Component Name 02/05/23 09 WBC 6.8 RBC 4.68 HGB 14.1 HCT 43.1 MCV 92.1 MCH 30.1 MCHC 32.7 PLTCOUNT 327 Recent Labs Component Name 02/05/2329 09/07/13 1223 SODIUM - 140 POTASSIUM - 4.0 CHLORIDE - 105 CO2 - 27 BUN - 8 CREATININE - 0.48* GLUCOSE 105 87 CALCIUM - 8.7 ALT - 39 ALKPHOS - 47 AST - 26 TBIL - 0.4 TPROT - 7.3 EGFR - >60 EGFRAFR - >60 No images are attached to the encounter. Imaging & other studies: Pertinent Labs, imaging reviewed Note was created with the help of voice recognition software and not proof-read Bernardo Lizarraga MD - Hematology/Oncology Cell# (providers only) [phone] documented in this encounter Plan of Treatment Upcoming Encounters Date Type Department Care Team (Late st Contact Info) Description 07/19/2024 9:45 AM SENIOR COUNSEL COMMERCIAL Office Visit [facility] - MANAGER CAR [address] [place] [address] Leatha Gupta MD [address] [place] [address] 12/11/2024 9:00 AM CDT Office Visit [facility] - Surgery [address] [facility], [address] [place] [address] [place] [address] [facility] [address] [place] [address] 12/11/2024 10:40 AM CDT Office Visit [facility] Cancer Care [address] [place] [address] [address] [place] [address] [place] [address] [place] [address] documented as of this encounter Visit Diagnoses Diagnosis Invasive ductal carcinoma of right breast (HCC)- Primary Family history of cancer Family history of unspecified malignant neoplasm Benign cyst of breast, unspecified laterality Acute back pain, unspecified back location, unspecified back pain laterality Premenopausal patient Symptomatic menopausal or female climacteric states documented in this encounter Care Teams Permaculture Contractor Relationship Specialty Start Date End Date Celina Sifuentes MD [address] [place] [phone] PCP - General Family Medicine 02/16/23 11/14/23 [place] [address] [place] [phone] Surgical Oncologist Surgical Oncology 02/15/23 [place] [address] [address] [place] [address] Dealership General Manager/Oncologist Hematology and Oncology 02/16/23 documented as of this encounter
--- OUTSIDE RECORDS SUMMARY | 2024-07-02 04:41 | XMS_ITS | Encounter Summary ---
Author Organization [facility] Address [address] [facility] [place] [address] Care Team Providers Care Forging Operator Name Role Phone Naya Leonard Irving DO Unavailable [phone] Bernardo Lizarraga MD Unavailable [phone] Celina Sifuentes MD Primary Care Provider [phone] Reason for Visit * Reason Comments Well Women Exam Encounter Details Date Type Department Care Team (Late st Contact Info) Description 05/27/2023 4:15 PM REWARDS CONSULTANT Office Visit [facility] Medical [facility] - [facility] [address] [place] [address] Leatha Gupta MD [address] [place] [address] Well woman exam (Primary Dx); Personal history of breast cancer; Immunization due Social History Tobacco Use Types Packs/Day Years [...] Sign Reading Time Taken Comments Blood Pressure 128/74 05/27/2023 4:14 PM REWARDS CONSULTANT Pulse 69 05/27/2023 4:14 PM REWARDS CONSULTANT Temperature - - Respiratory Rate - - Oxygen Saturation - - Inhaled Oxygen Concentration - - Weight 83.5 kg (184 lb) 05/27/2023 4:14 PM REWARDS CONSULTANT Height 163.8 cm (5' 4.5 ) 05/27/2023 4:14 PM REWARDS CONSULTANT Body Mass Index 31.1 05/27/2023 4:14 PM REWARDS CONSULTANT documented in this encounter Progress Notes * Kacey Yu - 05/27/2023 4:51 PM CST Preventative HC: pt due for flu vaccine IM Flu vaccine 0.5 ML given in left upper arm RDS CONSULTANT * Leatha Gupta MD - 05/27/2023 4:28 PM CST Well Woman Yearly Exam HISTORY: Betina Coy is a 52 year old female, Patient's last menstrual period was 01/23/2023 (exact date)., here for a Well Woman exam. On her annual dae had lesion that lead to biopsy that showed DCIS/invasive so had mastectomy on right and decided to have simple on left and pathology showed LCIS. Plans on getting just fat placement to contour the chest but not getting breast reconstruction. Stopped her OCPS and no bleeding since so hopefully menopausal. On tamoxifen and will do for 5 years. Past Medical History: Diagnosis Date ??? Breast CA (CMS/HCC) Right ??? COVID 06/2021 ??? Elevated cholesterol ??? Hypothyroid ??? MVP (mitral valve prolapse) pt denies ??? PCOS (polycystic ovarian syndrome) Past Surgical History: Procedure Laterality Date ??? Bunionectomy Bilateral ??? EXCISION/ DESTRUCTION TUMOR/MASS Bilateral 02/25/2023 Bilateral; Incision and drainage bilateral chest wall seroma and placement Shalom drains ? Hemorrhoidectomy ??? MAMMO STEREOTACTIC RIGHT BIOPSY Right 01/06/2023 MAMMO STEREOTACTIC RIGHT BIOPSY 01/06/2023 [facility] ??? MASTECTOMY, SIMPLE Bilateral 02/18/2023 Bilateral; RIGHT SIMPLE MASTECTOMY, RIGHT SENTINEL LYMPH NODE BX, LEFT PROPHYLACTIC MASTECTOMY ??? NEEDLE BIOPSY Right 10'18 right breast 2 cyst aspirations ??? OTHER SURGERY breast cyst aspiration ??? US BREAST RIGHT BIOPSY Right 01/06/2023 US BREAST RIGHT BIOPSY 01/06/2023 [facility] Social History Socioeconomic History ??? Marital status: Spouse name: Not on file ??? Number of children: Not on file ??? Years of education: Not on file ??? Highest education level: Not on file Occupational History ??? Not on file Tobacco Use ??? Smoking status: Never ??? Smokeless tobacco: Never Vaping Use ??? Vaping Use: Never used Substance and Sexual Activity ??? Alcohol use: No ??? Drug use: Never ??? Sexual activity: Yes Other Topics Concern ??? Not on file Social History Narrative ??? Not on file Social Determinants of Health Financial Resource Strain: Not on file Food Insecurity: Not on file Transportation Needs: Not on file Stress: Not on file Housing Stability: Not on file No Known Allergies OB History 3 Para 3 Term 3 AB Living 3 SAB IAB Ectopic Multiple Live Births 3 Family History Problem Relation Name Age of Onset ??? Other Mother breast cyst ??? Cancer - Breast Paternal Grandmother Review of Systems Constitutional: No weight or appetite changes. : No UTIs, frequency, urgency, pain, hematuria, vaginal dryness or vaginal discharge. Skin: No rash, changing moles, or bruises. Psychiatric: No depression or suicidal ideation. No mood changes. Endocrine: No thyroid or diabetes problems. EXAMINATION BP 128/74 Pulse 69 Ht 1.638 m (5' 4.5 ) Wt 83.5 kg (184 lb) Body mass index is 31.1 kg/m??. NEURO: The patient is oriented x3. NECK: Supple and symmetrical, without any masses. Thyroid is normal without any masses or enlargement. Trachea is midline. SKIN: No rashes, lesions, or ulcers. ABDOMEN: Soft with good bowel sounds x4 quadrants. No masses or tenderness noted. There is no liveror spleen enlargement. No evidence of hernia. EXT: Nontender, nonedematous There is no clubbing or cyanosis. LYMPHATIC: No supraclavicular, axillary or inguinal adenopathy. EGBUS: Without any lesions or abnormalities. Normal Bartholin's and [place]'s. Vagina: Moist, pink rugae without any lesions. Cervix: Closed, without any lesions. Uterus: Small, mobile, nontender. Well supported. Adnexa: Nontender without palpable masses. Urinary: Urethral meatus normal without palpable masses. Urethra without masses or tenderness. No suprapubic tenderness associated with bladder. Rectovaginal: Deferred. ASSESSMENT ICD-10-CM 1. Well woman exam Z01.419 PAP IG LB+HPV APTIMA 2. Personal history of breast cancer Z85.3 3. Immunization due Z23 FLU VACCINE QUAD IIV4 SPLIT PF IM Patient Active Problem List Diagnosis Date Noted ??? Invasive ductal carcinoma of right breast (CMS/HCC) 04/19/2023 Priority: Not Prioritized ??? Postoperative seroma of subcutaneous tissue after non-dermatologic procedure 02/25/2023 Priority: Not Prioritized ??? COVID-19 07/09/2021 Priority: Not Prioritized ??? Hypercholesteremia 01/31/2019 Priority: Not Prioritized ??? PCOS (polycystic ovarian syndrome) Priority: Not Prioritized PLAN Betina Coy is a 52 year old female, Patient's last menstrual period was 01/23/2023 (exact date)., here for a Well Woman exam 1. Preventative medicine: PAP Follow up one year Orders Placed This Encounter ??? FLU VACCINE QUAD IIV4 SPLIT PF IM ??? PAP IG LB+HPV APTIMA See orders, medications, patient instructions. Leatha Gupta MD RDS CONSULTANT documented in this encounter Plan of Treatment Upcoming Encounters Date Type Department Care Team (Late st Contact Info) Description 07/19/2024 9:45 AM REWARDS CONSULTANT Office Visit [facility] - [facility] [place] [address] Leatha Gupta MD [address] [place] [phone] 12/11/2024 9:00 AM CDT Office Visit [facility] - Surgery [address] [place] [address], [address] [place] [address] [place]acio Naya [place] [address] [place] [address] 12/11/2024 10:40 AM CDT Office Visit [facility] [address] [facility] [address] [place] [address] [place] [address] [facility] [address] [place] [address] documented as of this encounter Procedures Procedure Name Priority Date/Time Associated Diagnosis Comments PAP IG LB+HPV APTIMA Routine 05/27/2023 4:44 PM REWARDS CONSULTANT Well woman exam documented in this encounter Results * PAP IG LB+HPV APTIMA (05/27/2023 4:44 PM REWARDS CONSULTANT) Diagnosis [facility] ACCOUNT BILL Comment:NEGATIVE FOR INTRAEP [...] UTERINE CERVIX / Unknown 05/27/2023 4:44 PM REWARDS CONSULTANT 05/31/2023 Narrative [facility] ACCOUNT BILL - 06/02/2023 10:12 AM REWARDS CONSULTANT No. of containers..01 ThinPrep Vial Resulting Agency Comment [facility]: [facility] [address] [facility] ??[place] [id number] Leatha Gupta MD LAB - PATHOLOGY/CYT OLOGY ORDERABLES [facility] ACCOUNT BILL [address] [place] [address] documented in this encounter Visit Diagnoses Diagnosis Well woman exam- Primary Routine general medical examination at a health care facility Personal history of breast cancer Personal history of malignant neoplasm of breast Immunization due Need for prophylactic vaccination and inoculation against unspecified single disease documented in this encounter Care Teams Forging Operator Relationship Specialty Start Date End Date Celina Sifuentes MD [address] [place] [address] PCP - General Family Medicine 02/16/23 11/14/23 [place] [address] [place] [phone] Surgical Oncologist Surgical Oncology 02/15/23 [place] [address] [place] [phone] Flying Instructor/Oncologist Hematology and Oncology 02/16/23 documented as of this encounter
--- OUTSIDE RECORDS SUMMARY | 2024-07-02 04:41 | XMS_ITS | Encounter Summary ---
Author Organization [facility] Address [address] [place] [address] Care Team Providers Care Kiss Mixer Name Role Phone Naya Leonard DO Unavailable [phone] Bernardo Lizarraga MD Unavailable [phone] Keisha Pineda Primary Care Pr ovider Reason for Visit * Auth/Cert (Routine) Specialty Diagnoses / Procedures Referred By Sherie jacobo Referred To Contact Diagnoses Mass in chest Mass in chest [R22.2] Procedures VT EXC SKIN BENIG 3.1-4CM TRUNK,ARM,LEG EXCISION LESION TRUNK CHEST/AXILLA Referral ID Status Reason Start Date Expiration Date Visits Re quested Visits Authorized [id number] 1 1 Encounter Details Date Type Department Care Team (Late st Contact Info) Description 11/30/2023 10:50 AM CDT - 11/30/2023 11:40 AM CDT Surgery [facility] - General Surgery [address] [place] [address], [address] [place] [address] [place] [id number] [facility] [address] [place] [address] EXCISION LEFT CHEST WALL MASS THREE CENTIMETERS Surgery Details Date/Time Status Location OR Service Patient Class Case Class Case Type Trauma Case? 11/30/2023 10:50 AM Posted [facility] OR 4 General Surgery Day Care Elective > 5 days Panel 1 Procedure LRB Anes Op Region Wound Class Comments EXCISION LEFT CHEST WALL MAS S THREE CENTIMETERS Left MAC Chest Clean Surgeon Surgeon Role Service Panel Naya Leonard, DO Primary General 1 documented in this encounter Social History [...] Sign Reading Time Taken Comments Blood Pressure 120/69 11/30/2023 9:56 AM CDT Pulse 66 11/30/2023 9:56 AM CDT Temperature 36.2 ??C (97.2 ??F) 11/30/2023 9:56 AM CD T Respiratory Rate 17 11/30/2023 9:56 AM CDT Oxygen Saturation 97% 11/30/2023 9:56 AM CDT Inhaled Oxygen Concentration - - [...] Refills Start Date End Date HYDROcodone-acetamino phen (Bethany) 5-325 MG tabletIndications:Inv asive ductal carcinoma of [...] o'clock position revealed an infiltrating ductal carcinoma ER/VT positive, HER2/brittany negative with low KI 67. The calcifications revealedDCIS, ER/VT positive. Patient underwent breast MRI which showed [...] BOTH breasts was performed by a trained management aide and by Dr. Maddi Landeros. BREAST PARENCHYMAL [...] be scheduled to return to [facility] for biopsy . > Interpreting Provider: Maddi [...] ER: Positive ( 70 %, moderate intensity) VT: Positive ( 90 %, strong intensity) Her-2-brittany: Not over-expressed (score 1+) Ki-67: Low proliferation/favorable ( 3 %) Specimen B (right breast calcifications): ER: Positive ( >95 %, strong intensity) VT: Positive ( 50 %, moderate intensity) Final [...] See attached report. Addendum electronically signed by Mallroy Mina MD on 03/09/2023 at 1728 Addendum [...] revision by Plastic surgery Assessment Right IDC (ER/VT+ HER2/brittany negative) and DCIS (ER/VT+) Left breast LCIS Stage I A Left [...] o'clock position revealed an infiltrating ductal carcinoma ER/VT positive, HER2/brittany negative with low KI 67. The calcifications revealedDCIS, ER/VT positive. Patient underwent breast MRI which showed [...] Right 01/06/2023 US BREAST RIGHT BIOPSY 01/06/2023 [facility] US Outpatient Medications Marked as [...] BOTH breasts was performed by a trained management aide and by Dr. Maddi Landeros. BREAST PARENCHYMAL [...] will be scheduled to return to the [facility] for biopsy . > Interpreting [...] maximum contiguous extent (minimum tumor size) -- [place] grade 1 of 3 -- Moderate tubule [...] ER: Positive ( 70 %, moderate intensity) VT: Positive ( 90 %, strong intensity) Her-2-brittany: Not over-expressed (score 1+) Ki-67: Low proliferation/favorable ( 3 %) Specimen B (right breast calcifications): ER: Positive ( >95 %, strong intensity) VT: Positive ( 50 %, moderate intensity) Final [...] revision by Plastic surgery Assessment Right IDC (ER/VT+ HER2/brittany negative) and DCIS (ER/VT+) Left breast LCIS Stage I A Left [...] placed in a supine position. A single doseof Ancef 2g was administered intravenously prior to [...] st Contact Info) Description 07/19/2024 9:45 AM BOAT ENGINES INSTALLER Office Visit [facility] - [place] [address] [address] Leatha Gupta MD [address] [place] [address] 12/11/2024 9:00 AM CDT Office Visit [facility] - Surgery [address] [facility], [address] [place] [address] [place] [address] [place] [address] 12/11/2024 10:40 AM CDT Office Visit [facility] [address] [facility] [address] [place] [address] [place] [address] [place] [address] documented as of this encounter Procedures Procedure Name Priority Date/Time Associated Diagnosis Comments PATHOLOGY TISSUE EXAM (STL) Routine 11/30/2023 11:34 AM CDT Mass in chest VT EXC SKIN BENIG 3.1-4CM TRUNK,ARM,LEG 11/30/2023 10:50 AM CDT Mass in chest HCG URINE QUAL POCT NOTIFICATION Routine 11/30/2023 10:30 AM CDT Preop examination HCG URINE QUALITATIVE - POCT (IP) INTERFACED Routine 11/30/2023 9:32 AM CDT documented in this encounter Results * PATHOLOGY TISSUE EXAM (STL) (11/30/2023 11:34 AM CDT) Case Report Surgical Pathology Report ? Case: [id number] ? Authorizing Provider: ??Naya Leonard, DO ? Collected: ? 11/30/2023 11:34 AM ? Ordering Location: ? [facility] - Received: ?11/30/2023 01:51 PM ? General Surgery ? Pathologist: ? Sarah Blount MD ? Specimen: ?Chest Mass, chest wall mass ? 12/02/2023 8:47 AM T [facility] Final Diagnosis Left chest wall mass, excision: -- Adipose connective tissue with fat necrosis and foreign body reaction 12/02/2023 8:47 AM [facility] Gross Description Received in formalin in a single container, labeled Betina Coy, left chest wall mass, are two fragments of a disrupted fibromembranous tissue fragment, measuring 2.5 x 2.2 x 1.2 cm in aggregate. Sections show a gritty yellow-hurtado adipose tissue. Utilization Management Nurse sections are submitted in cassette A1. /tc 12/02/2023 8:47 AM T [facility] Microscopic Description Microscopic examination substantiates the above cited diagnosis. 12/02/2023 8:47 AM [facility] Disclaimer All histochemical and/or immunohistochemical results are interpreted with controls that demonstrate appropriate staining reactions before reporting results. Note on use of immunocytochemistry reagents: This test was developed and its performance characteristic determined by [facility], Department of Laboratory Medicine. [...] interpreted with caution. 12/02/2023 8:47 AM CDT [facility] Embedded Images 12/02/2023 8:47 AM CDT [facility] Pathology/Cytolo gy MASS OF CHEST WALL / Unknown 11/30/2023 11:34 AM CDT 11/30/2023 1:51 PM CDT Comment:Pre-op diagnosis: Mass in chest [R22.2] Naya Leonard DO LAB - PATHOLOGY/CYTO LOGY ORDERABLES Performing Organization Address City/[facility] Co de Phone Number [facility] [address] [place] [address] * HCG URINE QUAL POCT NOTIFICATION (11/30/2023 10:30 AM CDT) Comment Notification Label Only - See Separate Report 11/30/2023 10:30 AM CDT [facility] Urine URINE / Unknown 9:29 AM CDT Ricarda Zarate DO LAB - URINALYSIS ORD ERABLES Performing Organization Address [facility] Co de Phone Number [facility] [address] [place] [address] * HCG URINE QUALITATIVE - POCT (IP) INTERFACED (11/30/2023 9:32 AM CDT) HCG Qual Urine Negative Negative 11/30/2023 9:38 AM CDT [facility] Urine URINE / Unknown 11/30/2023 9 :32 AM CDT 11/30/2023 9:38 AM CDT Naya Leonard DO LAB - POINT OF CARE ORDERABLES [facility] [address] [place] [id number] documented in this encounter Visit Diagnoses Diagnosis Chest wall mass- Primary Swelling, mass, or lump in chest Preop examination Preoperative examination, unspecified Invasive ductal carcinoma of right breast (HCC) Mass in chest Swelling, mass, or lump in chest Mass in chest Swelling, mass, or lump in chest documented in this encounter Administered Medications Inactive Administered Medications - up to 3 most recent administrations Medication Order MAR Action Action Date Dose Rate Site 0.9% NaCl irrigation solution PRN, Starting on Wed11/30/23 at 1132, Until Wed11/30/23 at 1152, Intra-op $ Given 11/30/2023 11:32 AM CDT 500 mL Operative Site acetaminophen (Tylenol) tablet 1,000 mg 1,000 [...] 9:49 AM CDT 20 mL/ hr lidocaine 1% (Xylocaine) - EPINEPHrine 1:100,000 injection PRN, Starting on Wed11/30/23 at 1139, Until Wed11/30/23 at 1152, Intra-op $ Given 11/30/2023 11:39 AM CDT 20 mL Operative Site lidocaine PF (Xylocaine MPF) 1 % injection 0.2 mL 0.2 mL, Infiltration, PRE-OP MULTIPLE, 3 doses, Starting on Wed11/30/23 at 0920, Until Wed12/01/23 at 0122, May be used (0.2 ml locally to anesthetize prior to insertion)., Pre-op $ Given 11/30/2023 9:49 AM CDT 0.2 mL documented in this encounter Care Teams Kiss Mixer Relationship Specialty Start Date End Date Keisha Pineda PA [address] [place] [id number] PCP - General Physician Vac Press Operator 11/15/23 [place] [address] [place] [phone] Surgical Oncologist Surgical Oncology 02/15/23 [place] [address] [place] [phone] Emissions Testing And Repair Technician/Oncologist Hematology and Oncology 02/16/23 documented as of this encounter
--- OUTSIDE RECORDS SUMMARY | 2024-07-02 04:41 | XMS_ITS | Encounter Summary ---
Author Organization [facility] Address [address] [place] [address] Care Team Providers Care Account Officer Name Role Phone Naya Leonard Irving DO Unavailable [phone] Bernardo Lizarraga MD Unavailable [phone] Celina Sifuentes MD Primary Care Provider [phone] Reason for Visit * Auth/Cert (Routine) Specialty Diagnoses / Procedures Referred By Contac t Referred To Contact Procedures [place] COLOREC CANC SCRN,SCR COLONOSCOPY+BE COLONOSCOPY SCREEN Referral ID Status Reason Start Date Expiration Date Visits Re quested Visits Authorized [id number] 1 1 Encounter Details Date Type Department Care Team (Late st Contact Info) Description 09/27/2023 10:07 AM CDT Anesthesia Event [facility] [address] [place] [address] Ritchie Craven MD [address] [place] [address] [address] [place] [address] Anesthesia Record Procedure Summary Procedure Name Responsible Anesthesiologist Anesthesia Start Time Anesthesia Stop Time COLONOSCOPY SCREEN Ritchie Craven MD 09/27/23 1007 09/09 03/04 1050 Events Date Time Event Comment 09/27/2023 0928 1007 An Start 1007 Out OR Start Data 1007 PT Reassessment 1007 Electnc Sig This record is electronically signed by the providers listed under staff. 1030 Timeout Anesthesia part icipated in timeout at the time documented in the record by nursing. 1047 Out OR Stop Data 1050 An Stop Meds Name Total lidocaine 1% (PF) injection (50 mg/5mL) 50 mg propofol (DIPRIVAN) injection 10mg/ml (E NDO USE) 13 mL * Agents Name Exp. N2O O2 * Blood No blood administrations on file. Lines, Drains, and Airways Type Details Placement Removal Peripheral IV Date: 09/27/23; Time : 929; Orientation: Anterior, Right; Location: Forearm; Gauge: 22 G 09/27/23 0930 by Carmen Colon RN 09/27/23 1106 by Issa Vogt RN documented in this encounter Social History Tobacco [...] as of this encounter Progress Notes * Shahab Israel, PRESS SETTER-HEARING AID ASSEMBLY SUPERVISOR - 09/27/2023 10:51 AM CDT ANESTHESIA POSTOP EVALUATION NOTE Procedure: COLONOSCOPY SCREEN Betina Coy is a 53 year old female Patient Vitals for the past 6 hrs: BP Temp Pulse Resp SpO2 Pain Rating Score #1 Pain Scale/Observation 09/27/23 0923 120/83 98 ??F (36.7 ??C) 71 11 97 % 0 N 09/27/23 1012 118/87 -- -- -- 96 % -- -- 09/27/23 1016 136/75 -- -- -- -- -- -- 09/27/23 1017 -- -- -- -- 96 % -- -- 09/27/23 1021 117/73 -- -- -- -- -- -- 09/27/23 1022 -- -- -- -- 97 % -- -- 09/27/23 1026 111/72 -- -- -- -- -- -- 09/27/23 1027 -- -- -- -- 96 % -- -- 09/27/23 1031 139/76 -- -- -- -- -- -- 09/27/23 1032 -- -- -- -- 99 % -- -- 09/27/23 1036 157/87 -- -- -- -- -- -- 09/27/23 1037 -- -- -- -- 98 % -- -- 09/27/23 1041 112/66 -- -- -- -- -- -- 09/27/23 1042 -- -- -- -- 98 % -- -- 09/27/23 1044 -- -- -- -- 99 % -- -- Anesthesia Type: MAC * No Diagnosis Codes entered * Mental Status: awake, sufficiently recovered from acute administration of anesthesia to participatein the evaluation, alert and oriented Neuro Status: No numbess, tingling or visual disturbances Respiratory Function: natural Cardiac Function: stable Postop Pain: adequate Postop Hydration: adequate Postop Nausea: none Assessment: no apparent anesthetic complications, patient tolerated procedure well and no evidence of recall Patient Disposition: Release from Anesthesia Care NOTABLE EVENTS: No notable events documented. * Ritchie Craven MD - 09/27/2023 9:27 AM CDT ANESTHESIA PREOPERATIVE EVALUATION NOTE Procedure: COLONOSCOPY SCREEN Vitals: Patient Vitals for the past 6 hrs: BP Temp Pulse Resp SpO2 Pain Rating Score #1 09/27/23 0923 120/83 98 ??F (36.7 ??C) 71 11 97 % 0 LMP: Patient's last menstrual period was 01/23/2023 (exact date). OB Status: Postmenopausal ANESTHESIA PRE-EVALUATION NOTE History of Present Illness: 53yF hx/o PCOS, MVP. Breast Ca s/p bilateral mastectomy Physical Exam: Orientation X3 Airway/Mallampati Score: II Mouth Opening Distance: 3 fingerwidths Neck ROM: full TM Distance: > 3 FB Teeth: normal Heart: normal - S1 S2 Lungs: clear to ausculation bilaterally Review of Systems: History of anesthetic complications: No Sleep Apnea Risk: No Malignant Hyperthermia: No GERD: No Recent Chest Pain: No Shortness of Breath: No Renal Disease: No Diagnostic Tests: Lab(s) reviewed: Yes. ANESTHESIA PLAN ASA Score: 2 NPO Status: No liquids within 2 hours and Other - comments (last solid food > 24hrs ago) Anesthesia Plan: MAC Planned Induction: intravenous Planned Postop Destination: endo Anesthetic plan was discussed with: patient Anesthetic Plan discussion was: Consented BMI, Height, Weight Tobacco History Estimated body mass index is 30.38 kg/m?? as calculated from the following: Height as of this encounter: 1.626 m (5' 4 ). Weight as of this encounter: 80.3 kg (177 lb). Social History Tobacco Use Smoking Status Never Smokeless Tobacco Never Alcohol History Drug History Social History Substance and Sexual Activity Alcohol Use No Social History Substance and Sexual Activity Drug Use Never Outpatient Medications: Inpatient Medications: Outpatient Medications Marked as Taking for the 09/27/23 encounter (Hospital Encounter) Medication Sig Last Dose ??? ascorbic acid Take 1 (one) tablet by mouth once daily 09/25/2023 ??? multivitamin daily Take 1 (one) tablet by mouth daily with food 09/25/2023 ??? tamoxifen Take 1 (one) tablet by mouth once daily 09/26/2023 Current Facility-Administered Medications Medication Dose Last Admin ??? 0.9% NaCl IV Allergies: No Known Allergies Relevant Problems Problem List: Patient Active Problem List Diagnosis Date Noted ??? Invasive ductal carcinoma of right breast (HCC) 04/19/2023 Priority: Not Prioritized ??? Postoperative seroma of subcutaneous tissue after non-dermatologic procedure 02/25/2023 Priority: Not Prioritized ??? COVID-19 07/09/2021 Priority: Not Prioritized ??? Hypercholesteremia 01/31/2019 Priority: Not Prioritized ??? PCOS (polycystic ovarian syndrome) Priority: Not Prioritized Medical History: Past Medical History: Diagnosis Date ??? Breast CA (HCC) Right ??? COVID 06/2021 ??? Elevated cholesterol ??? Hypothyroid ??? MVP (mitral valve prolapse) pt denies ??? PCOS (polycystic ovarian syndrome) Surgical History: Past Surgical History: Procedure Laterality Date ??? Breast Reconstruction N/A 06/08/2023 N/A; TOTAL AUTOLOGOUS BILATERAL BREAST RECONSTRUCTION ??? Bunionectomy Bilateral ??? EXCISION/ DESTRUCTION TUMOR/MASS Bilateral 02/25/2023 Bilateral; Incision and drainage bilateral chest wall seroma and placement Shalom drains ? Hemorrhoidectomy ??? MAMMO STEREOTACTIC RIGHT BIOPSY Right 01/06/2023 MAMMO STEREOTACTIC RIGHT BIOPSY 01/06/2023 [facility] ??? MASTECTOMY, SIMPLE Bilateral 02/18/2023 Bilateral; [...] RIGHT BIOPSY 01/06/2023 [facility] NEWSPAPER PEDDLER Status: Patient's last menstrual period was 01/23/2023 (exact date). Postmenopausal OB History Para Term AB Living 3 3 3 0 0 3 SAB IAB Ectopic Multiple Live Births 0 0 0 0 3 # Outcome Date GA Lbr Stevan/2nd Weight Sex Delivery Anes PTL Lv 3 Term 2 Term 1 Term Covid Vaccine: Lab Results: No results found for requested labs within last 120 days. No results found for requested labs within last 120 days. documented in this encounter Miscellaneous Notes * Anesthesia Transfer of Care - Shahab Israel, PRESS SETTER-HEARING AID ASSEMBLY SUPERVISOR - 09/27/2023 10:50 AM CDT ANESTHESIA TRANSFER OF CARE NOTE Today's Date: 09/27/2023 Date of : 1970 Patient: Betina Coy Procedure(s): COLONOSCOPY SCREEN Surgeon(s): Primary: Adama Holliday MD Preop Diagnosis: * No Diagnosis Codes entered * Pre-op Meds (From admission, onward) Start Stop Status Route Frequency Ordered 09/27/23 0945 0.9% NaCl infusion -- Dispensed IV CONTINUOUS 09/27/23 0907 * No Diagnosis Codes entered * . No Known Allergies Vitals: Patient Vitals for the past 3 hrs: BP Temp Pulse Resp SpO2 Pain Rating Score #1 09/27/23 1044 -- -- -- -- 99 % -- 09/27/23 1042 -- -- -- -- 98 % -- 09/27/23 1041 112/66 -- -- -- -- -- 09/27/23 1037 -- -- -- -- 98 % -- 09/27/23 1036 157/87 -- -- -- -- -- 09/27/23 1032 -- -- -- -- 99 % -- 09/27/23 1031 139/76 -- -- -- -- -- 09/27/23 1027 -- -- -- -- 96 % -- 09/27/23 1026 111/72 -- -- -- -- -- 09/27/23 1022 -- -- -- -- 97 % -- 09/27/23 1021 117/73 -- -- -- -- -- 09/27/23 1017 -- -- -- -- 96 % -- 09/27/23 1016 136/75 -- -- -- -- -- 09/27/23 1012 118/87 -- -- -- 96 % -- 09/27/23 0923 120/83 98 ??F (36.7 ??C) 71 11 97 % 0 Lines, Drains, and Airways Type Details Placement Removal Peripheral IV Date: 09/27/23; Time: 929; Orientation: Anterior, Right; Location: Forearm; Gauge: 22 G 09/27/23 09 by Carmen Colon, RN Intraprocedure I/O Totals Intake propofol (DIPRIVAN) injection 10mg/ml (ENDO USE) 13.00 mL I.V. 200 mL Total Intake 213 mL Patient Transfer Location: Endo Recovery Transport Airway: spontaneous respirations Complications: None Handoff [...] report from the receiving PACUteam. JULIO CESAR Smith documented in this encounter Plan of Treatment Upcoming Encounters Date Type Department Care Team (Late st Contact Info) Description 07/19/2024 9:45 AM TAX STAFF ACCOUNTANT Office Visit [facility] - NEWSPAPER PEDDLER [address] [place] [address] Leatha Gupta MD [facility] [place] [address] 12/11/2024 9:00 AM CDT Office Visit [facility] - Surgery [address] [place] [address], [address] [address] [place] [address] [address] [address] 12/11/2024 10:40 AM CDT Office Visit [facility] [address] [place] [address] [place] [address] [address] [address] documented as of this encounter Visit Diagnoses Not on filedocumented in this encounter Administered Medications Inactive Administered Medications - up to 3 most recent administrations Medication Order MAR Action Action Date Dose Rate Site lidocaine PF (Xylocaine MPF) 1 % injection Intravenous, PRN, Starting on Wed09/27/23 at 1031, Until Wed09/27/23 at 1050, Anesthesia Intra-op $ Given 09/27/2023 10:31 AM CDT 50 mg propofol (Diprivan) injection Intravenous, CONTINUOUS PRN, Starting on Wed09/27/23 at 1031, Until Wed09/27/23 at 1050, Anesthesia Intra-op $ New Bag/Syringe 09/27/2023 10:31 AM CDT documented in this encounter Care Teams Account Officer Relationship Specialty Start Date End Date Celina Sifuentes MD [address] [place] [address] PCP - General Family Medicine 02/16/23 11/14/23 [place] [address] [place] [id number] Surgical Oncologist Surgical Oncology 02/15/23 [place] [address] [phone] Reefer Truck Driver/Oncologist Hematology and Oncology 02/16/23 documented as of this encounter
--- OUTSIDE RECORDS SUMMARY | 2024-07-02 04:41 | XMS_ITS | Encounter Summary ---
Author Organization [facility] Address [address] [place] [address] Care Team Providers Care Analyst Name Role Phone Naya Leonard Irving DO Unavailable [phone] Bernardo Lizarraga MD Unavailable [phone] Celina Sifuentes MD Primary Care Provider [phone] Reason for Visit * Auth/Cert (Routine) Specialty Diagnoses / Procedures Referred By Contac t Referred To Contact Procedures [place] COLOREC CANC SCRN,SCR COLONOSCOPY+BE COLONOSCOPY SCREEN Referral ID Status Reason Start Date Expiration Date Visits Re quested Visits Authorized [id number] 1 1 Encounter Details Date Type Department Care Team (Late st Contact Info) Description 09/27/2023 10:15 AM CDT - 09/27/2023 10:45 AM CDT Surgery [facility] - Endoscopy Services [id number] [place] [address] Adama Holliday MD [id number] [place] [address] [address] [place] [address] COLONOSCOPY SCREEN Surgery Details Date/Time Status Location OR Service Patient Class Case Class Case Type Trauma Case? 09/27/2023 10:15 AM Posted [facility] ENDO 01 Gastroenterology Surgery Day Care Elective > 5 days Panel 1 Procedure LRB Anes Op Region Wound Class Comments COLONOSCOPY SCREEN N/A MAC Clean Conta minated Surgeon Surgeon Role Service Panel Adama Holliday MD Primary Gastroenterology 1 documented in this encounter Social History [...] Sign Reading Time Taken Comments Blood Pressure 112/66 09/27/2023 10:41 AM CDT Pulse 71 09/27/2023 9:23 AM CDT Temperature 36.7 ??C (98 ??F) 09/27/2023 9:23 AM CDT Respiratory Rate 11 09/27/2023 9:23 AM CDT Oxygen Saturation 99% 09/27/2023 10:44 AM CDT Inhaled Oxygen Concentration - - Weight 80.3 kg (177 lb) 09/27/2023 9:23 AM CDT Height 162.6 cm (5' 4 ) 09/27/2023 9:23 AM CDT Body Mass Index 30.38 09/27/2023 9:23 AM CDT documented in this encounter Functional [...] STEREOTACTIC RIGHT BIOPSY 01/06/2023 [facility] ??? MASTECTOMY, SIMPLE Bilateral 02/18/2023 Bilateral; [...] Gastroenterology Interventional Endoscopy Director, Gastroenterology & Endoscopy [facility] Office: [phone] documented in this encounter Procedure Notes * Adama Holliday MD - 09/27/2023 10:48 AM CDTAssociated Order(s): ENDOSCOPY, COLON, SCREENING Colonoscopy done for screening. Normal colon other than diverticulosis. Repeat in 10 years for screening. documented in this encounter Plan of Treatment Upcoming Encounters Date Type Department Care Team (Late st Contact Info) Description 07/19/2024 9:45 AM SOFTWARE APPLICATIONS SPECIALIST Office Visit [facility] - [facility] [address] [place] [address] Leatha Gupta MD [address] [place] [address] 12/11/2024 9:00 AM CDT Office Visit [facility] - Surgery [address] [facility], [address] [place] [address] [place] [address] [facility] [address] [place] [address] 12/11/2024 10:40 AM CDT Office Visit [facility] [address] [place] [address] [address] [place] [address] Bernardo Lizarraga [place] [id number] [place] [address] [address] [place] [address] documented as of this encounter Procedures Procedure Name Priority Date/Time Associated Diagnosis Comments [place] COLOREC CANC SCRN,SCR COLONOSCOPY+BE 09/27/2023 10:15 AM [...] Gender: Female Attending MD: Adama Holliday MD, [id number] _ Procedure: ? Colonoscopy Indications: ? Screening [...] ? preparation was evaluated using the BBPS (Joes Bowel ? Preparation Scale) with scores of: [...] Procedure Code(s): ? --- Professional --- ? 64015, Colonoscopy, flexible; diagnostic, including collection of ? specimen(s) by brushing or washing, when performed (separate procedure) ? --- Technical --- ? 00227, Colonoscopy, flexible; diagnostic, including collection of ? [...] abscess ? without bleeding CPT copyright 2020 [employer]. All rights reserved. The codes documented in this report are preliminary and upon expenditure requisition clerk review may be revised to meet current compliance requirements. __ Adama Holliday MD 09/27/2023 10:47:51 AM Number of Addenda: 0 Note Initiated On: 09/27/2023 9:15 AM [facility]COPY 09/27/2023 9:15 AM CDT Narrative Procedure Note Adama Holliday MD - 09/27/2023 10:48 AM CDT Colonoscopy done for screening. Normal colon other than diverticulosis.Repeat in 10 years for screening. Ricky Fuentes MD GI PROCEDURE ORDERA AMBER [facility] [place] [address] documented in this encounter Visit Diagnoses Not on filedocumented [...] RN) documented in this encounter Care Teams Analyst Relationship Specialty Start Date End Date Celina Sifuentes MD [address] [place] [address] PCP - General Family Medicine 02/16/23 11/14/23 [place] [address] [address] [place] [address] Surgical Oncologist Surgical Oncology 02/15/23 [place] [address] [place] [address] Knockout Worker/Oncologist Hematology and Oncology 02/16/23 documented as of this encounter
--- OUTSIDE RECORDS SUMMARY | 2024-07-02 04:41 | XMS_ITS | Encounter Summary ---
Author Organization [facility] Address [address] [facility] [place] [address] Care Team Providers Care Torch Heater Name Role Phone Naya Leonard DO Unavailable [phone] Bernardo Lizarraga MD Unavailable [phone] Celina Sifuentes MD Primary Care Provider [phone] Reason for Referral * Consultation (Routine) - Closed Specialty Diagnoses / Procedures Referred By Contac t Referred To Contact Diagnoses S/[place] [address] [address] [place] [address] Referral ID Status Reason Start Date Expiration Date V isits Requested Visits Authorized [id number] Closed Specialty Services Required 04/23/2023 04/22/2024 1 1 Encounter Details Date Type Department Care Team (Late st Contact Info) Description 04/23/2023 Orders Only [facility] - Surgery [address] [facility], [address] [place] [address] [place] [address] [address] [place] [address] S/P bilateral mastectomy Social History Tobacco Use [...] st Contact Info) Description 07/19/2024 9:45 AM RUBBER LINER Office Visit [facility] - SENIOR SALES OPERATIONS MANAGER [address] [place] [address] Leatha Gupta MD [address] [place] [address] 12/11/2024 9:00 AM CDT Office Visit [facility] - Surgery [address] [facility], [address] [address] [place] [address] [address] [address] 12/11/2024 10:40 AM CDT Office Visit [facility] [address] [place] [address] [phone] [place] [phone] [place] [address] Scheduled Referrals Name Type Priority Associated Diagnoses Order Schedule AMB REFERRAL TO PLASTIC SURGERY Outpatient Referral Routine S/P bilateral mastectomy 1 Occurrences starting 04/23/2023 until 04/23/2024 documented as of this encounter Visit Diagnoses Diagnosis S/P bilateral mastectomy- Primary Acquired absence of breast and nipple documented in this encounter Care Teams Torch Heater Relationship Specialty Start Date End Date Celina Sifuentes MD [address] [place] [address] PCP - General Family Medicine 8/8/23 5/5/24 [place] [address] [place] [address] Surgical Oncologist Surgical Oncology 02/15/23 [place] [address] [address] [place] [address] Hybrid Technologist/Oncologist Hematology and Oncology 02/16/23 documented as of this encounter
--- OUTSIDE RECORDS SUMMARY | 2024-07-02 04:41 | XMS_ITS | Encounter Summary ---
Author Organization [facility] Address [address] [place] [address] Care Team Providers Care Truck Crane Operator Helper Name Role Phone Naya Leonard Irving DO Unavailable [phone] Bernardo Lizarraga MD Unavailable [phone] Celina Sifuentes MD Primary Care Provider [phone] Encounter Details Date Type Department Care Team (Latest Contact Info) Description 06/01/2023 Travel Social History Tobacco Use Types Packs/Day [...] st Contact Info) Description 07/19/2024 9:45 AM CNC MILL PROGRAMMER Office Visit [facility] - SUPERVISOR [address] [address] Leatha Gupta MD [address] [place] [address] 12/11/2024 9:00 AM CDT Office Visit [facility] - Surgery [address] [facility], [address] [place] [address] [place] [address] [address] [facility] [address] [place] [address] 12/11/2024 10:40 AM CDT Office Visit [facility] [address] [facility] [address] [place] [address] [place] [address] [address] [facility] [address] [place] [address] documented as of this encounter Visit Diagnoses Not on filedocumented in this encounter Care Teams Truck Crane Operator Helper Relationship Specialty Start Date End Date Celina Sifuentes MD [address] [place] [address] PCP - General Family Medicine 02/16/23 11/14/23 [place] [address] [address] Surgical Oncologist Surgical Oncology 02/15/23 [place] [address] [address] Manager Product/Oncologist Hematology and Oncology 02/16/23 documented as of this encounter
--- OUTSIDE RECORDS SUMMARY | 2024-07-02 04:41 | XMS_ITS | Encounter Summary ---
Author Organization [facility] Address [address] [facility] [place] [address] Care Team Providers Care Dog And Cat Food Cook Name Role Phone Naya Leonard DO Unavailable [phone] Bernardo Lizarraga MD Unavailable [phone] Celina Sifuentes MD Primary Care Provider [phone] Reason for Visit * Reason Onset Date Comments Concerns 04/23/2023 Encounter Details Date Type Department Care Team (Late st Contact Info) Description 04/23/2023 Telephone [facility] - Surgery [address] [place] [address] Naya Leonard, [address] [address] Concerns Social History Tobacco Use Types Packs/Day [...] AM CDT documented as of this encounter Miscellaneous Notes * Telephone Encounter - Angella Grajeda RN - 04/23/2023 3:16 PM CDT Returned call, Manda says they did not receive a referral from our office for this patient. I orderedthe referral. Pt was upset that she wasn't contacted, but it was because they not got the referral. * Telephone Encounter - Louis Alexis - 04/23/2023 3:06 PM CDT Manda with Dr. Giacomo Correa contacted the office and requested to speak with a nurse from Dr. Leonard office. Manda was not detailed in the reason for her call, but stated that she wanted to speak with the nurse oil refinery operator. Please contact Manda at your convenience at [phone]. documented in this encounter Plan of Treatment Upcoming Encounters Date Type Department Care Team (Late st Contact Info) Description 07/19/2024 9:45 AM DIESEL LOCOMOTIVE CRANE OPERATOR Office Visit [facility] - REMOTE SENSING RESEARCH SCIENTIST [address] [place] [address] Leatha Gupta MD [address] [place] [address] 12/11/2024 9:00 AM CDT Office Visit [facility] - Surgery [address] [place] [address], [address] [address] [place] [address] [address] 12/11/2024 10:40 AM CDT Office Visit [facility] [address] [place] [address] Bernrado Lizarraga MD [facility] [address] [address] documented as of this encounter Visit Diagnoses Not on filedocumented in this encounter Care Teams Dog And Cat Food Cook Relationship Specialty Start Date End Date Celina Sifuentes MD [address] [place] [address] PCP - General Family Medicine 02/16/23 11/14/23 [place] [address] [address] [facility] [address] [place] [address] Surgical Oncologist Surgical Oncology 02/15/23 [place] [address] [address] [facility] [address] [place] [address] Help Desk Consultant/Oncologist Hematology and Oncology 02/16/23 documented as of this encounter
--- OUTSIDE RECORDS SUMMARY | 2024-07-02 04:41 | XMS_ITS | Encounter Summary ---
Author Organization [facility] Address [address] [place] [address] Care Team Providers Care Judicial Administrative Assistant Name Role Phone Naya Leonard DO Unavailable [phone] Bernardo Lizarraga MD Unavailable [phone] Celina Sifuentes MD Primary Care Provider [phone] Reason for Visit * Reason Onset Date Comments Question 03/10/2023 Encounter Details Date Type Department Care Team (Late st Contact Info) Description 03/10/2023 Telephone [facility] - Surgery [id number] [place] [address] Naya Leonard, [address] [address] Question Social History Tobacco Use Types Packs/Day [...] Telephone Encounter - Coretta Mercado LPN - 03/10/2023 12:18 PM CDT Returned call to pt and scheduled a nurse visit to assess and call Dr. Leonard if needed. * Telephone Encounter - Coretta Mercado LPN - 03/10/2023 11:11 AM CDT Returned call to pt. She reports having to change the dressing over the sites where CHANI drains were removed 2 & 3 times per day and feels both sides are filling with fluid. Call placed to Dr. Leonard. Awaiting return call to call pt back again. * Telephone Encounter - Aury Smyth - 03/10/2023 9:05 AM CDT Please call Betina back, where her drains were, fluid is dripping out. documented in this encounter Plan of Treatment Upcoming Encounters Date Type Department Care Team (Late st Contact Info) Description 07/19/2024 9:45 AM INDUSTRIAL HYGENIST Office Visit [facility] - FUR MIXER OPERATOR [address] [place] [phone] Leatha Gupta MD [address] [place] [address] 12/11/2024 9:00 AM CDT Office Visit [facility] - Surgery [address], [address] [place] [address] [place] [address] [address] [facility] [address] [place] [address] 12/11/2024 10:40 AM CDT Office Visit [facility] [address] [place] [address] [address] [place] [address] [place] [address] [place] [phone] documented as of this encounter Visit Diagnoses Not on filedocumented in this encounter Care Teams Judicial Administrative Assistant Relationship Specialty Start Date End Date Celina Sifuentes MD [address] [place] [address] PCP - General Family Medicine 02/16/23 11/14/23 [place] [address] [place] [address] Surgical Oncologist Surgical Oncology 02/15/23 [place] [address] [address] [place] [phone] Sewing Inspector/Oncologist Hematology and Oncology 02/16/23 documented as of this encounter
--- OUTSIDE RECORDS SUMMARY | 2024-07-02 04:41 | XMS_ITS | Encounter Summary ---
Author Organization [facility] Address [address] [place] [address] Care Team Providers Care Auto Heater Mechanic Name Role Phone Naya Leonard Irving DO Unavailable [phone] Bernardo Lizarraga MD Unavailable [phone] Celina Sifuentes MD Primary Care Provider [phone] Reason for Visit * Auth/Cert (Routine) Specialty Diagnoses / Procedures Referred By Contac t Referred To Contact Diagnoses Malignant neoplasm of right female breast, unspecified estrogen receptor status, unspecified site of breast (HCC) Malignant neoplasm of right female breast, unspecified estrogen receptor status, unspecified site of breast (CMS/HCC) [C50.911] Procedures DE INSERTION BREAST IMPLANT SAME DAY OF MASTECTOMY DE GRFG AUTOL FAT LIPO 50 CC/< DE REVISION ANGELA-IMPLANT CAPSULE BREAST RECONSTRUCTION BREAST / INSERTION BREAST PROSTHESIS GRAFT/TRANSFER FAT CAPSULOTOMY/CAPSULECTOMY BREAST Referral ID Status Reason Start Date Expiration Date Visits Re quested Visits Authorized [id number] 1 1 Encounter Details Date Type Department Care Team (Late st Contact Info) Description 06/08/2023 12:22 PM DOOR FRAME ASSEMBLER MACHINE Anesthesia Event [facility] [address], [address] [place] [address] Letitia Ackerman MD [address] [place] [address] Shady Tafoya, BREWMASTER-SURGERY ATTENDANT [address] [place] [address] Anesthesia Record Procedure Summary Procedure Name Responsible Anesthesiologist Anesthesia Start Time Anesthesia Stop Time TOTAL AUTOLOGOUS BILATERAL BREAST RECONSTRUCTION (Breast) Letitia Ackerman MD 06/08/23 1222 06/08/23 1458 Events Date Time Event Comment 06/08/2023 1033 1222 An Start 1222 An Start Data 1223 PT Reassessment 1228 An Induction 1228 An Intubation 1238 Timeout Anesthesia part icipated in timeout at the time documented in the record by nursing. 1434 An Emergence 1453 Extubation 1453 Electnc Sig This record is electronically signed by the providers listed under staff. 1453 PACU Orders Reviewed 1453 an stop data 1453 Handoff Checklist follo wed: 1. Identification of patient 2. Identification of responsible nurse 3. Discussion of pertinent medical history 4. Discussion of surgical/procedure course 5. Intraoperative anesthetic management and concerns 6. Expectations/plans for the early post-procedure period 7. Opportunity for questions and acknowledgement of report 1453 ANPTO2 1458 An Stop Meds Name Total midazolam 2 mg/2mL injection 2 mg fentaNYL 100 mcg/2mL injection 100 mcg lidocaine PF 1% injection (10 mg/mL) 100 mg propofol 200mg/20mL injection 180 mg rocuronium 10 mg/mL injection 50 mg glycopyrrolate 0.2 mg/mL injection 0.2 m g ondansetron 2 mg/mL injection 4 mg ketorolac 30 mg/mL injection 30 mg dexamethasone 4 mg/mL injection 8 mg neostigmine 1 mg/mL injection 2 mg ceFAZolin (Ancef) 2 g in 0.9% NaCl IV 50 mL IVPB 0 g tranexamic acid 1000mg/10mL injection 1, 000 mg lactated ringers infusion 1,200 mL * Agents Name Exp. Sevoflurane O2 Air Insp. Sevoflurane N2O * Blood No blood administrations on file. Lines, Drains, and Airways Type Details Placement Removal Procedural Site (Incision) 06/08/23; Left, Lower; Chest; 06/08/23; 2304 06/08/23 0000 by Monalisa Coughlin RN 06/08/23 2304 by Generic, Auto Release Drain 06/08/23; 2; Round; Bulb; 15fr; Lateral, Left; Chest; 09/27/23; Not present on admission, removal date unknown 06/08/23 0000 by Monalisa Coughlin RN 09/27/23 0000 by Carmen Colon RN Procedural Site (Incision) 06/08/23; Abdomen; 06/08/23; 2304 06/08/23 0000 by Monalisa Coughlin RN 06/08/23 2304 by Generic, Auto Release Peripheral IV Date: 06/08/23; Time : 1010; Orientation: Posterior, Right; Placed By: Peggy BURRIS; Tolerance: Well 06/08/23 1010 by Betina Shah RN 06/08/23 2304 by Generic, Auto Release ETT Date: 06/08/23; Time : 1228; Placed By: Letitia Ackerman MD; Vent: easy mask; Induction: Standard IV; Blade Type: Amparo; Blade Size: 3; Laryngoscopy View: Grade 1 (full cords); Intubation Adjuncts: Stylet; Tube: Endotracheal Tube; Placement: Oral; Tube Type: Cuffed-inflated; Tube Size(mm): 7 MM; Depth of Insertion: 22 CM; Attempts: 1; Cuff Infated: Air; Verified By: CO2 Monitor 06/08/23 1228 by Shady Tafoya APRN-SURGERY ATTENDANT 06/08/23 1453 by Shady Tafoya APRN-SURGERY ATTENDANT Procedural Site (Incision) 06/08/23; 1239; Lower, Right; Chest; 06/08/23; 2304 06/08/23 1239 by Monalisa Coughlin RN 06/08/23 2304 by Generic, Auto Release Drain 06/08/23; 1324; Dr. Correa; 1; Round; Bulb; 15fr; Lateral, Right; Chest; 09/27/23; Not present on admission, removal date unknown 06/08/23 1324 by Monalisa Coughlin RN 09/27/23 0000 by Carmen Colon RN documented in this encounter Social History [...] AM CDT documented as of this encounter Progress Notes * Pascual Pantoja MD - 06/08/2023 3:33 PM CST ANESTHESIA POSTOP EVALUATION NOTE Procedure: TOTAL AUTOLOGOUS BILATERAL BREAST RECONSTRUCTION (Breast) FAT GRAFTING FROM ADBOMEN AND LOCAL TISSUE REARRANGEMENT Betina Coy is a 52 year old female Patient Vitals for the past 6 hrs: BP Temp Pulse Resp SpO2 Pain Rating Score #1 Pain Scale/Observation Pulse - (SPO2/Cuff) 06/08/23 1005 120/74 99.7 ??F (37.6 ??C) 65 12 99 % 0 N -- 06/08/23 1455 118/66 97.3 ??F (36.3 ??C) 70 20 96 % 0 B 71 bpm 06/08/23 1500 114/63 -- 63 22 98 % 0 B 63 bpm 06/08/23 1505 119/70 -- 85 17 99 % 0 N;B 85 bpm 06/08/23 1510 123/79 -- 70 25 97 % 0 N;B 70 bpm 06/08/23 1515 120/68 -- 74 16 93 % 0 N;B 77 bpm Anesthesia Type: general ETT Pre-op Diagnosis Codes: * Malignant neoplasm of right female breast, unspecified estrogen receptor status, unspecified siteof breast (CMS/HCC) [C50.911] Mental Status: awake Neuro Status: No numbess, tingling or visual disturbances Respiratory Function: natural Cardiac Function: stable Postop Pain: acceptable to the patient Postop Hydration: adequate Postop Nausea: none Assessment: no apparent anesthetic complications Patient Disposition: Release from Anesthesia Care NOTABLE EVENTS: No notable events documented. FRAME ASSEMBLER MACHINE * Letitia Ackerman MD - 06/08/2023 10:29 AM CST ANESTHESIA PREOPERATIVE EVALUATION NOTE Procedure: TOTAL AUTOLOGOUS BREAST RECONSTRUCTION (Breast) FAT GRAFTING FROM ADBOMEN AND LOCAL TISSUE REARRANGEMENT REVISION OF SERORNA CAPSULES (Breast) NPO status: Since Midnight (06/08/2023 10:02 AM) Vitals: Patient Vitals for the past 6 hrs: BP Temp Pulse Resp SpO2 Pain Rating Score #1 06/08/23 1005 120/74 99.7 ??F (37.6 ??C) 65 12 99 % 0 LMP: Patient's last menstrual period was 01/23/2023 (exact date). OB Status: Postmenopausal ANESTHESIA PRE-EVALUATION NOTE Previous Airway Management: ETT Placed: ETT Size: 7 Blade Type: Weaver Blade Size: 2 GradeGrade: 1 Mask Airway: Easy The patient is a current non-smoker. Physical Exam: Orientation X3 Airway/Mallampati Score: I Mouth Opening Distance: 3 fingerwidths Neck ROM: full TM Distance: > 3 FB Teeth: normal Heart: normal - S1 S2 Lungs: clear to ausculation bilaterally Abdomen Exam: obese Review of Systems: History of anesthetic complications: No Diagnostic Tests: Lab(s) reviewed: Yes. ANESTHESIA PLAN ASA Score: 2 NPO Status: No solids since midnight and No liquids within 2 hours Anesthesia Plan: general ETT Planned Induction: intravenous Planned Postop Destination: PACU Anesthetic plan was discussed with: patient Anesthetic Plan discussion was: Consented BMI, Height, Weight Tobacco History Estimated body mass index is 31.34 kg/m?? as calculated from the following: Height as of this encounter: 1.626 m (5' 4 ). Weight as of this encounter: 82.8 kg (182 lb 9.6 oz). Social History Tobacco Use Smoking Status Never Smokeless Tobacco Never Alcohol History Drug History Social History Substance and Sexual Activity Alcohol Use No Social History Substance and Sexual Activity Drug Use Never Outpatient Medications: Inpatient Medications: Outpatient Medications Marked as Taking for the 06/08/23 encounter (Hospital Encounter) Medication Sig Last Dose ??? ascorbic acid Take 1 (one) tablet by mouth once daily 06/07/2023 ??? atorvastatin Take 1 (one) tablet by mouth at bedtime 06/07/2023 ??? multivitamin daily Take 1 (one) tablet by mouth daily with food 06/07/2023 ??? tamoxifen Take 1 (one) tablet by mouth once daily 06/07/2023 Current Facility-Administered Medications Medication Dose Last Admin ??? ceFAZolin 2 g ??? lactated ringers New Bag at 06/08/23 1010 Allergies: No Known Allergies Relevant Problems Problem [...] RIGHT BIOPSY 01/06/2023 [facility] NEO ??? MASTECTOMY, SIMPLE Bilateral 02/18/2023 Bilateral; RIGHT SIMPLE MASTECTOMY, RIGHT SENTINEL LYMPH NODE BX, LEFT PROPHYLACTIC MASTECTOMY ??? NEEDLE BIOPSY Right 10'18 right breast 2 cyst aspirations ??? OTHER SURGERY breast cyst aspiration ??? US BREAST RIGHT BIOPSY Right 01/06/2023 US BREAST RIGHT BIOPSY 01/06/2023 [facility] US CLINICAL DOCUMENTATION DEVELOPER Status: Patient's last menstrual period was 01/23/2023 (exact date). Postmenopausal OB History Para Term AB Living 3 3 3 0 0 3 SAB IAB Ectopic Multiple Live Births 0 0 0 0 3 # Outcome Date GA Lbr Stevan/2nd Weight Sex Delivery Anes PTL Lv 3 Term 2 Term 1 Term Covid Vaccine: Lab Results: Recent Labs Component Name 02/25/23 0632 HCGURINE Negative No results found for requested labs within last 120 days. No results found for requested labs within last 120 days. FRAME ASSEMBLER MACHINE documented in this encounter Procedure Notes * Shady Tafoya APRN-CRNA - 06/08/2023 12:29 PM CSTAssociated Order(s): ETT Placement Endotracheal Tube Placement: Intubation Event Date/Time: 06/08/2023 12:28 PM Procedure: intubation (75754). Procedure Section: Sedation: under general anesthesia. Indications for Airway Management: anesthesia Procedure pretreatments used? No Induction: standard IV Patient Position: supine Mask Ventilation: easy. Blade Type: Amparo Blade Size: 3 Laryngoscopy View: grade 1 (full cords) Intubation Adjuncts: stylet Tube: endotracheal tube Placement: oral Tube type: cuff - inflated Tube Size (MM): 7 Depth of Insertion (CM): 22 Cuff Inflated With: air Number of Attempts: 1. Placement Verified By: CO2 monitor Tube secured with: adhesive tape. Dentition unchanged? Yes Procedure Start Time: 06/08/2023 12:28 PM. Staff Section Anesthesia Provider: Letitia Ackerman MD, Performed the procedure FRAME ASSEMBLER MACHINE documented in this encounter Miscellaneous Notes * Anesthesia Transfer of Care - Shady Tafoya APRN-CRNA - 06/08/2023 2:58 PM CST ANESTHESIA TRANSFER OF CARE NOTE Today's Date: 06/08/2023 Date of : 1970 Patient: Betina Coy Procedure(s): TOTAL AUTOLOGOUS BILATERAL BREAST RECONSTRUCTION FAT GRAFTING FROM ADBOMEN AND LOCAL TISSUE REARRANGEMENT Surgeon(s): Primary: Giacomo Correa MD Preop Diagnosis: Pre-op Diagnois: * Malignant neoplasm of right female breast, unspecified estrogen receptor status, unspecified siteof breast (CMS/HCC) [C50.911] Pre-op Meds (From admission, onward) Start Stop Status Route Frequency Ordered 06/08/23 1329 0.9% NaCl irrigation solution -- Sent CONTINUOUS PRN 06/08/23 1329 06/08/23 1329 BUPivacaine 0.5% - EPINEPHrine 1:200,000 (PF) injection -- Sent PRN 06/08/23 1330 06/08/23 1330 BUPivacaine liposome (Exparel) 1.3 % injection -- Sent PRN 06/08/23 1330 06/08/23 0949 ceFAZolin (Ancef) 2 g in 0.9% NaCl IV 50 mL IVPB -- Verified IV PRE-OP MULTIPLE 06/08/23 0949 06/08/23 1242 dexAMETHasone (Decadron) injection -- Sent IV PRN 06/08/23 1246 06/08/23 1045 famotidine (Pepcid) injection 20 mg 06/08/23 1032 Completed IV PRE-OP ONCE 06/08/23 1032 06/08/23 1227 fentaNYL (PF) (Sublimaze) injection -- Sent IV PRN 06/08/23 1229 06/08/23 1357 fentaNYL (PF) (Sublimaze) injection 50 mcg -- Verified IV EVERY 3 MIN PRN 06/08/23 1357 06/08/23 1428 glycopyrrolate (Robinul) injection -- Sent IV PRN 06/08/23 1432 06/08/23 1357 HYDROmorphone (Dilaudid) injection 0.5 mg -- Verified IV EVERY 5 MIN PRN 06/08/23 1357 06/08/23 1400 insulin regular human (HumuLIN R; NovoLIN R) 100 UNIT/ML injection 0-6 Units 06/09/23 0159 Dispensed IV ONCE 06/08/23 1357 06/08/23 1327 ketorolac (Toradol) injection -- Sent IV PRN 06/08/23 1329 06/08/23 1000 lactated ringers infusion -- Verified IV CONTINUOUS 06/08/23 0949 06/08/23 1400 lactated ringers infusion -- Verified IV CONTINUOUS 06/08/23 1357 06/08/23 1332 lidocaine PF (Xylocaine MPF) 1 % 100 mL, EPINEPHrine 1 MG/ML 1 mL in 0.9% NaCl IV 1,101 mL solution -- Sent PRN 06/08/23 1332 06/08/23 1227 lidocaine PF (Xylocaine MPF) 1 % injection -- Sent IV PRN 06/08/23 1229 06/08/23 1032 lidocaine PF (Xylocaine MPF) 1 % injection 0.2 mL -- Verified INFILTRATION PRE-OP MULTIPLE 06/08/23 1032 06/08/23 1222 midazolam (Versed) injection -- Sent IV PRN 06/08/23 1228 06/08/23 1357 morphine injection 4 mg -- Verified IV EVERY 5 MIN PRN 06/08/23 1357 06/08/23 1357 naloxone (Narcan) injection 0.04 mg -- Verified IV POST-OP MULTIPLE 06/08/23 1357 06/08/23 1428 neostigmine (Prostigmin/Bloxiverz) injection -- Sent IV PRN 06/08/23 1432 06/08/23 1242 ondansetron (Zofran) injection -- Sent IV PRN 06/08/23 1246 06/08/23 1227 propofol (Diprivan) injection -- Sent IV PRN 06/08/23 1229 06/08/23 1227 rocuronium (Zemuron) injection -- Sent IV PRN 06/08/23 1229 06/08/23 1045 scopolamine (Transderm-Scop) 1 patch See Hyperspace for full Linked Orders Report. 06/11/23 1032 Verified TD PRE-OP ONCE 06/08/23 1032 06/08/23 1045 scopolamine patch placement confirmation See Hyperspace for full Linked Orders Report. -- Verified TD 2 TIMES DAILY 06/08/23 1032 06/08/23 1328 tranexamic acid (Cyklokapron) injection -- Sent IV PRN 06/08/23 1328 06/08/23 1330 tranexamic acid (Cyklokapron) injection -- Sent PRN 06/08/23 1332 Post-op Diagnosis: * Malignant neoplasm of right female breast, unspecified estrogen receptor status, unspecified siteof breast (CMS/HCC) [C50.911] . No Known Allergies Vitals: No data found. Lines, Drains, and Airways Type Details Placement Removal Drain 06/08/23; 2; Round; Bulb; 15fr; Lateral, Left; Chest 06/08/23 0000 by Monalisa Coughlin RN Peripheral IV Date: 06/08/23; Time: 1010; Orientation: Posterior, Right; Location: Hand; Placed By:Peggy BURRIS; Gauge: 20 Gauge; Locals: None; Tolerance: Well 06/08/23 1010 by Betina Shah RN ETT Date: 06/08/23; Time: 1228; Placed By: Letitia Ackerman MD; Vent: easy mask; Induction: StandardIV; Blade Type: Amparo; Blade Size: 3; Laryngoscopy View: Grade 1 (full cords); Intubation Adjuncts: Stylet; Tube: Endotracheal Tube; Placement: Oral; Tube Type: Cuffed-inflated; Tube Size(mm): 7 MM; Depth of Insertion: 22 CM; Attempts: 1; Cuff Infated: Air; Verified By: CO2 Monitor 06/08/23 1228 by Shady Tafoya APRN-CRNA 06/08/23 1453 by Shady Tafoya APRN-CRNA Drain 06/08/23; 1324; Dr. Correa; 1; Round; Bulb; 15fr; Lateral, Right; Chest 06/08/23 1324 by Monalisa Coughlin RN Intraprocedure I/O Totals Intake lactated ringers infusion 1200.00 mL Total Intake 1200 mL Output Estimated Blood Loss 100 mL Total Output 100 mL Net Net Volume 1100 mL Patient Transfer Location: PACU Transport Airway: supplemental O2 and spontaneous respirations Complications: None Handoff Given? Yes [...] report from the receiving PACUteam. JULIO CESAR Lindsey FRAME ASSEMBLER MACHINE documented in this encounter Plan of Treatment Upcoming Encounters Date Type Department Care Team (Late st Contact Info) Description 07/19/2024 9:45 AM DOOR FRAME ASSEMBLER MACHINE Office Visit [facility] - CLINICAL DOCUMENTATION DEVELOPER [address] [phone] Leatha Gupta MD [address] [place] [address] [place] [address] 12/11/2024 9:00 AM CDT Office Visit [facility] - Surgery [address] [facility], [address] [place] [address] [place] [address] [place] [address] 12/11/2024 10:40 AM CDT Office Visit [facility] [address] [place] [address] [place] [address] [address] [address] [address] [place] [address] documented as of this encounter Procedures Procedure Name Priority Date/Time Associated Diagnosis Comments ENDOTRACHEAL TUBE NOTE Routine 06/08/2023 12:29 PM DOOR FRAME ASSEMBLER MACHINE documented in this encounter Results * ETT LINE PERFORMABLE (06/08/2023 12:29 PM DOOR FRAME ASSEMBLER MACHINE) Narrative Shady Tafoya APRN-CRNA - 06/08/2023 12:29 PM DOOR FRAME ASSEMBLER MACHINE Shady Tafoya APRN-CRNA ? 06/08/2023 12:30 PM Endotracheal Tube Placement: ? Intubation Event Date/Time: ??06/08/2023 12:28 PM Procedure: intubation (96647). Procedure Section: ?? Sedation: under general anesthesia. [...] procedure Giacomo Correa MD GENERAL ANESTHESIA O ELDON documented in this encounter Visit Diagnoses Not on filedocumented in this encounter Administered Medications Inactive Administered Medications - up to 3 most recent administrations Medication Order MAR Action Action Date Dose Rate Site dexAMETHasone (Decadron) injection Intravenous, PRN, Starting on Wed06/08/23 at 1242, Until Wed06/08/23 at 1458, Anesthesia Intra-op $ Given 06/08/2023 12:42 PM DOOR FRAME ASSEMBLER MACHINE 8 mg fentaNYL (PF) (Sublimaze) injection Intravenous, PRN, Starting on Wed06/08/23 at 1227, Until Wed06/08/23 at 1458, Anesthesia Intra-op $ Given 06/08/2023 12:27 PM DOOR FRAME ASSEMBLER MACHINE 100 mcg glycopyrrolate (Robinul) injection Intravenous, PRN, Starting on Wed06/08/23 at 1428, Until Wed06/08/23 at 1458, Anesthesia Intra-op $ Given 06/08/2023 2:28 PM DOOR FRAME ASSEMBLER MACHINE 0.2 mg ketorolac (Toradol) injection Intravenous, PRN, Starting on Wed06/08/23 at 1327, Until Wed06/08/23 at 1458, Anesthesia Intra-op $ Given 06/08/2023 1:27 PM DOOR FRAME ASSEMBLER MACHINE 30 mg lactated ringers infusion at 100 mL/hr, Intravenous, CONTINUOUS, Starting on Wed06/08/23 at 1000, Until Wed06/08/23 at 1804, Pre-op $ New Bag/Syringe 06/08/2023 2:27 PM DOOR FRAME ASSEMBLER MACHINE $ New Bag/Syringe 06/08/2023 10:10 AM DOOR FRAME ASSEMBLER MACHINE 100 m L/hr lidocaine PF (Xylocaine MPF) 1 % injection Intravenous, PRN, Starting on Wed06/08/23 at 1227, Until Wed06/08/23 at 1458, Anesthesia Intra-op $ Given 06/08/2023 12:27 PM DOOR FRAME ASSEMBLER MACHINE 100 mg midazolam (Versed) injection Intravenous, PRN, Starting on Wed06/08/23 at 1222, Until Wed06/08/23 at 1458, Anesthesia Intra-op $ Given 06/08/2023 12:22 PM DOOR FRAME ASSEMBLER MACHINE 2 mg neostigmine (Prostigmin/Bloxiverz) injection Intravenous, PRN, Starting on Wed06/08/23 at 1428, Until Wed06/08/23 at 1458, Anesthesia Intra-op $ Given 06/08/2023 2:28 PM DOOR FRAME ASSEMBLER MACHINE 2 mg ondansetron (Zofran) injection Intravenous, PRN, Starting on Wed06/08/23 at 1242, Until Wed06/08/23 at 1458, Anesthesia Intra-op $ Given 06/08/2023 12:42 PM DOOR FRAME ASSEMBLER MACHINE 4 mg propofol (Diprivan) injection Intravenous, PRN, Starting on Wed06/08/23 at 1227, Until Wed06/08/23 at 1458, Anesthesia Intra-op $ Given 06/08/2023 12:27 PM DOOR FRAME ASSEMBLER MACHINE 180 mg rocuronium (Zemuron) injection Intravenous, PRN, Starting on Wed06/08/23 at 1227, Until Wed06/08/23 at 1458, Anesthesia Intra-op $ Given 06/08/2023 12:27 PM DOOR FRAME ASSEMBLER MACHINE 50 mg tranexamic acid (Cyklokapron) injection Intravenous, PRN, Starting on Wed06/08/23 at 1328, Until Wed06/08/23 at 1458, Anesthesia Intra-op $ Given 06/08/2023 1:28 PM DOOR FRAME ASSEMBLER MACHINE 1,000 mg documented in this encounter Care Teams Auto Heater Mechanic Relationship Specialty Start Date End Date Celina Sifuentes MD [address] [place] [address] PCP - General Family Medicine 02/16/23 11/14/23 [place] [address] [place] [address] Surgical Oncologist Surgical Oncology 02/15/23 [place] [address] [place] [id number] Gas Engine Repairer/Oncologist Hematology and Oncology 02/16/23 documented as of this encounter
--- OUTSIDE RECORDS SUMMARY | 2024-07-02 04:41 | XMS_ITS | Encounter Summary ---
Author Organization [facility] Address [address] [facility] [place] [address] Care Team Providers Care Dredge Pipeman Name Role Phone Naya Leonard Irving DO Unavailable [phone] Bernardo Lizarraga MD Unavailable [phone] Celina Sifuentes MD Primary Care Provider [phone] Keisha Pineda Primary Care Pr ovider Encounter Details Date Type Department Care Team (Late st Contact Info) Description 04/29/2023 [facility] Outpatient Visit [facility] Cancer Care [address] [place] [address] [place]arraga MD [id number] [place] [address] Social History Tobacco Use Types Packs/Day [...] st Contact Info) Description 07/19/2024 9:45 AM NUCLEAR WEAPONS SPECIALIST Office Visit [facility] - VENEER GRADER [address] [place] [address] Leatha Gupta MD [address] [facility] [place] [address] 12/11/2024 9:00 AM CDT Office Visit [facility] - Surgery [address] [facility], [address] [place] [address] [place] [address] [address] [address] 12/11/2024 10:40 AM CDT Office Visit [facility] Cancer Care [address] [place] [address] [address] [place] [address] [place] [address] [facility] [address] [place] [address] documented as of this encounter Visit Diagnoses Not on filedocumented in this encounter Care Teams Dredge Pipeman Relationship Specialty Start Date End Date Celina Sifuentes MD [address] [facility] [place] [address] PCP - General Family Medicine 02/16/23 11/14/23 Keisha Pineda PA [address] [place] [id number] PCP - General Physician Research Clerk 11/15/23 [place] [address] [address] [address] Surgical Oncologist Surgical Oncology 02/15/23 [place] [address] [place] [phone] Classification Analyst/Oncologist Hematology and Oncology 02/16/23 documented as of this encounter
--- OUTSIDE RECORDS SUMMARY | 2024-07-02 04:41 | XMS_ITS | Encounter Summary ---
Author Organization [facility] Address [address] [facility] [place] [address] Care Team Providers Care Feed Adviser Name Role Phone Naya Leonard DO Unavailable [phone] Bernardo Lizarraga MD Unavailable [phone] Celina Sifuentes MD Primary Care Provider [phone] Reason for Visit * Reason Comments Follow-up Bilat mast Encounter Details Date Type Department Care Team (Late st Contact Info) Description 03/29/2023 8:40 AM CDT Office Visit [facility] - Surgery [address] [place] [address] [place] [id number] [place] [address] Postop check (Primary Dx); Postoperative seroma of subcutaneous tissue after non-dermatologic procedure Social History Tobacco Use Types Packs/Day Years [...] - - Weight 85.3 kg (188 lb) 03/29/2023 8:35 AM CDT Height 162.6 cm (5' 4 ) 03/29/2023 8:35 AM CDT Body Mass Index 32.27 03/29/2023 8:35 AM CDT documented in this encounter Patient Instructions * Patient Instructions* Angella Grajeda RN - 03/29/2023 8:36 AM CDT Patient's medications and allergies were reviewed with the patient today. Patient was instructed tocontact primary care physician or ordering provider with any questions regarding medications. documented in this encounter Progress Notes * Naya Leonard DO - 03/29/2023 8:40 AM CDT Betina Coy is a 52 year old female who is here for a second postoperative visit following 02/18/2023 1. Right Simple Mastectomy 2. Injection of methylene blue dye to right breast 3. Right sentinel lymph node biopsy 4. Left Prophylactic Mastectomy Subsequent Incision and drainage, bilateral chest wall seroma with placement of shalom drain, left chest wall; placement of Shalom drain, right chest wall on 02/25/[address] Melendez. Right breast 17cc, left breast 30cc. Referring physician is Leatha Gupta MD. Reports minimal surgical pain. She does feel like she has a seroma again. Exam Incision: Clean and intact, healing well. No erythema noted. Bilateral chest wall seromas. 92 cc fluid from right breast. 10 cc fluid from left breast Pathology: Final Diagnosis A. Left breast, prophylactic [...] lymph node Left LCIS s/p mastectomy Postop seromas Plan Discussed physical exam findings as well as treatment plan with the patient. She does have seromas bilaterally today and will plan for drainage. I will see her back in 3 weeks No restrictions We also discussed following up with Plastic surgery for possible liposuction for the lateral aspects of her incisions. PROCEDURE NOTE Preoperative Diagnosis: Bilateral breast seroma Postoperative Diagnosis: Bilateral breast seroma Procedure: Aspiration of bilateral breast seroma Surgeon: Dr. Naya Leonard Anesthesia: Local Condition: Stable in the office. Description of Procedure: Attention was turned to the right breast was prepped in the normal sterile manner, an 18 gauge needle was used to aspirate a total of 92ml from the right breast Band-Aid applied. Tolerated well. Attention was then turned to the left breast and the area was prepped in normal sterile manner. Needle was used to aspirate a total of 10ml from the left breast. The fluid was discarded. A dressing was applied. The patient tolerated the procedure well and left the office in stable condition. documented in this encounter Plan of Treatment Upcoming Encounters Date Type Department Care Team (Late st Contact Info) Description 07/19/2024 9:45 AM STATE EPIDEMIOLOGIST Office Visit [facility] - CRANKSHAFT STRAIGHTENER [address] [place] [address] Leatha Gupta MD [address] [place] [address] 12/11/2024 9:00 AM CDT Office Visit [facility] - Surgery [address] [place] [address], [address] [place] [address] Naya Leonard DO [address] [place] [address] 12/11/2024 10:40 AM CDT Office Visit [facility] [address] [facility] [address] [place] [address] [place] [address] [address] [place] [address] documented as of this encounter Visit Diagnoses Diagnosis Postop check- Primary Follow-up examination, following unspecified surgery Postoperative seroma of subcutaneous tissue after non-dermatologic procedure documented in this encounter Care Teams Feed Adviser Relationship Specialty Start Date End Date Celina Sifuentes MD [address] [place] [phone] PCP - General Family Medicine 02/16/23 11/14/23 [place] [address] [address] [place] [address] Surgical Oncologist Surgical Oncology 02/15/23 [place] [address] [address] [place] [phone] Creative Services Designer/Oncologist Hematology and Oncology 02/16/23 documented as of this encounter
--- OUTSIDE RECORDS SUMMARY | 2024-07-02 04:41 | XMS_ITS | Encounter Summary ---
Author Organization [facility] Address [address] [facility] 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 Patient was instructed tocontact primary care physician or ordering provider with any questions regarding medications. Patient Name: Betina Coy Your procedure has been scheduled for: Date: Wednesday12/07/2023 Approximate Arrival Time: 7:00AM You will be notified by the hospital regarding your exact arrival time. Surgeon: Place: [] Ovi Rose M.D. [] [facility] 2[facility]. [] Mukund Azevedo M.D. Patient Registration [] Ernesto Melendez M.D. [x] [facility] [place] [] Dior Heard M.D. [employer] Floor/[facility]. [x] Naya Leonard D.O. [] [facility] [] Mahesh Eugene D.O. First Floor Main Entrance [] Saroj Bennett M.D. [] Tonio Waite D.O. [] Elaine Mckeon M.D. [] Doug Otero M.D. [] Mukund Mckay M.D. INSTRUCTIONS: [x] Nothing to eat or drink after midnight. [x] Do take heart, blood pressure, or breathing medications with a sip of water the morning of surgery. [x] You will be having OUTPATIENT SURGERY. You will need someone to drive you home. Name of Procedure: EXCISION OF 3cm LEFT CHEST WALL MASS Your follow-up appointment is: Date: Wednesday12/21/2023 Time: 1:00PM documented in this encounter Progress Notes * Naya Leonard, - 11/15/2023 8:40 AM CDT Images from the original note were not included. Chief Complaint Breast cancer follow up History and Physical Betina Coy is a 53 year old female who is referred by Celina Sifuentes MD presents todayfor follow up for her cancer. Patient underwent [...] o'clock position revealed an infiltrating ductal carcinoma ER/CO positive, HER2/brittany negative with low KI 67. The calcifications revealedDCIS, ER/CO positive. Patient underwent breast MRI which showed [...] breast cancer. Past Medical History: Diagnosis Date ??? Breast [...] STEREOTACTIC RIGHT BIOPSY 01/06/2023 [facility] ??? MASTECTOMY, SIMPLE Bilateral 02/18/2023 Bilateral; RIGHT SIMPLE MASTECTOMY, RIGHT SENTINEL LYMPH NODE BX, LEFT PROPHYLACTIC MASTECTOMY ??? NEEDLE BIOPSY Right right breast 2 cyst aspirations ??? OTHER SURGERY breast cyst aspiration ??? PLASTIC SURGERY PROCEDURE N/A 06/08/2023 N/A; FAT GRAFTING FROM ADBOMEN AND LOCAL TISSUE REARRANGEMENT ??? US BREAST RIGHT BIOPSY Right 01/06/2023 US BREAST RIGHT BIOPSY 01/06/2023 [facility] No outpatient medications have been marked as taking for the 11/15/23 encounter (Appointment) with Naya Leonard DO. No Known Allergies Social History Tobacco Use ??? Smoking status: Never ??? Smokeless tobacco: Never Vaping Use ??? Vaping Use: Never used Substance Use Topics ??? Alcohol use: No ??? Drug use: Never Family History Problem Relation Name Age of Onset ??? Other Mother breast cyst ??? Cancer - Breast Paternal Grandmother Physical Exam [...] placed during the hospital encounter of 12/30/22 ?? MAMMO BILAT DIAGNOSTIC W DONALD ?? Narrative EXAMINATION: DIGITAL MAMMO BILAT DIAGNOSTIC W DONALD, US BREAST BILATERAL LTD ?? DATE: 12/30/2022 ?? HISTORY: This 52-year-old with a palpable lump in the upper outer quadrant of the left breast. ?? COMPARISON: 03/17/2022, 12/24/2021, 05/22/2020, 01/05/2019 ?? TECHNIQUE: Full field digital mammographic views of BOTH breasts were performed, including computer aided detection (CAD) and BILATERAL digital breast tomosynthesis (DBT). Directed ultrasound evaluation of BOTH breasts was performed by a trained bog worker and by Dr. Maddi Landeros. ? BREAST PARENCHYMAL COMPOSITION: The breasts are heterogenously dense, which may obscure small masses. ?? MAMMOGRAM FINDINGS: A triangular marker was placed over the area of palpable concern in the left upper outer quadrant. This corresponds to a 4 cm high density ill-defined lobulated mass. ?? Examination of the right breast reveals interval [...] position approximately 7 cm from the nipple ?? SONOGRAM FINDINGS:Directed ultrasound examination in the area [...] also seen near this irregular hypoechoic mass. ?? Impression : 1. The area palpable concern [...] the right 8:30 position as described above. ?? These results have been discussed the patient by Dr. Maddi Landeros. ? OVERALL FINAL ASSESSMENT: BI-RADS Category 5: Highly Suggestive of Malignancy. ? Dr. Landeros discussed the above findings and recommendations with the patient. She will be scheduled to return to the [facility] for biopsy . ?? > Interpreting Provider: Maddi Landeros MD on 12/30/2022 12:44 PM ?? Results for orders placed during the hospital encounter of 01/19/23 ?? MRI BREAST BILAT WWO CONTRAST ?? Narrative EXAMINATION: 1. MRI EXAMINATION OF THE BREASTS WITH AND WITHOUT CONTRAST 2. 3D POST PROCESSING ON A DEDICATED 3D WORKSTATION ?? HISTORY: 52-year-old woman with multifocal biopsy-proven malignancy in the right breast (11:00 8 cm from the nipple, biopsy-proven infiltrating ductal carcinoma grade 1; anteromedial right breast calcifications biopsy-proven ductal carcinoma in situ intermediate grade with central necrosis.) Breast MRI is requested for surgical planning. ?? DATE OF LAST MENSTRUAL PERIOD: 12/24/2022 ?? TECHNIQUE: MRI examination of the breasts per breast tumor protocol with and without gadolinium contrast. A dedicated breast imaging coil was used. The images were transferred to a breast CAD system for 3D post processing and contrast kinetics analysis. ?? CONTRAST: Dotarem, 19 ml ?? COMPARISON: There is no known prior breast MRI; correlation is made with multimodality breast imaging dated 12/24/2021, 03/17/2022, 12/30/2022, 01/06/2023 ?? BREAST COMPOSITION: Heterogeneous fibroglandular tissue ?? BACKGROUND PARENCHYMAL ENHANCEMENT: Marked, which lowers the sensitivity of MRI ?? FINDINGS: ?? RIGHT BREAST: There are postbiopsy changes with [...] situ possibly with foci of additional invasion. ?? There are several prominent right axillary lymph nodes, which could be reactive in the postbiopsy setting. ?? LEFT BREAST: There is no suspicious enhancement. There are T2 intense nonenhancing masses, consistent with cysts, most pronounced posterior lateral breast. ?? There are no suspicious lymph nodes in the left axilla. ?? Impression : ?? 1. The MRI findings are consistent with multifocal/multicentric biopsy-proven malignancy in the RIGHT breast. Based upon the documented and estimated extent of disease, the patient does not appear to be a candidate for right breast conservation therapy. If an attempt at breast conservation therapy is desired, then additional biopsies/biopsies of anterior calcifications seen mammographically would be indicated. ?? 2. There is no suspicious enhancement in the LEFT breast, allowing for marked background glandular enhancement. ?? OVERALL FINAL ASSESSMENT: BI-RADS Category 6: Known Biopsy-Proven Malignancy. ?? > Interpreting Provider: Angie Castelan MD on 01/20/2023 4:47 PM Pathology Review Final Diagnosis A. ??Right breast mass, 11 o'clock 8 cm from nipple, core biopsy: ?? -- ??Infiltrating ductal carcinoma ?? -- ??Involving cores of tissue ?? -- ??3 mm maximum contiguous extent (minimum tumor size) ?? -- ??Franco grade 1 of 3 ?? -- ??Moderate tubule formation (score 2) ?? -- ??Moderate nuclear pleomorphism (score 2) ?? -- ??1 mitoses per 10 HPF (score 1) ?? Total score 5 = Grade 1 ?? -- Negative for lymph-vascular invasion ?? -- In situ carcinoma not demonstrated ?? -- ??Therapeutic biomarkers pending ?? B. ??Right breast calcifications, medial anterior, core biopsy: ?? -- ??Ductal carcinoma in situ, solid and cribriform types, intermediate grade, ??with central necrosis and microcalcifications ?? -- ??DCIS present in multiple fragments ?? -- ??Therapeutic biomarkers pending ?? at 1011 Addendum 1 The results of breast prognostic factors by immunohistochemical stains with appropriate controls are as follows: Specimen A (right breast at 11:00): ER: ??Positive ??( ??70 %, moderate intensity) CO: ??Positive ( 90 ?%, strong intensity) Her-2-brittany: ?Not over-expressed (score 1+) Ki-67: ?Low proliferation/favorable ( 3 ??%) ?? Specimen B (right breast calcifications): ER: ??Positive ( >95 ??%, strong intensity) CO: ??Positive ( 50 ??%, moderate intensity) Final Diagnosis A. Left breast, [...] by Mallory Mina MD on 03/09/2023 at 2098 Addendum 1 A request for Oncotype DX [...] revision by Plastic surgery Assessment Right IDC (ER/CO+ HER2/brittany negative) and DCIS (ER/CO+) Left breast LCIS Stage I A Left [...] at her convenience. documented in this encounter Plan of Treatment Upcoming Encounters Date Type Department Care Team (Late st Contact Info) Description 07/19/2024 9:45 AM INFORMATION TECHNOLOGY PROGRAM MANAGER Office Visit [facility] - COMPRESSOR OPERATOR PORTABLE [address] [place] [address] Leatha Gupta MD [address] [place] [address] 12/11/2024 9:00 AM CDT Office Visit [facility] - Surgery [address] [place] [address], [address] [place] [phone] [place] [address] [address] [facility] [address] [place] [phone] 12/11/2024 10:40 AM CDT Office Visit [facility] [address] [place] [address] [address] [place] [phone] [place] [address] [address] [facility] [address] [place] [address] documented as of this encounter Visit Diagnoses Diagnosis Invasive ductal carcinoma of right breast (HCC)- Primary Mass of left chest wall documented in this encounter Care Teams Parts Sales Counterperson Relationship Specialty Start Date End Date Keisha Pineda PA [address] [place] [address] PCP - General Physician Environmental Engineering Technician 11/15/23 [place] [address] [address] Surgical Oncologist Surgical Oncology 02/15/23 [place] [address] [phone] Valet Manager/Oncologist Hematology and Oncology 02/16/23 documented as of this encounter
--- OUTSIDE RECORDS SUMMARY | 2024-07-02 04:41 | XMS_ITS | Encounter Summary ---
Author Organization [facility] Address [address] [place] [address] Care Team Providers Care Surveillance Systems Analyst Name Role Phone HoracioNaya Irving DO Unavailable [phone] Bernardo Lizarraga MD Unavailable [phone] Celina Sifuentes MD Primary Care Provider [phone] Reason for Visit * Reason Comments Follow-up Encounter Details Date Type Department Care Team (Late st Contact Info) Description 04/19/2023 3:00 PM CDT Office Visit [facility] Cancer Care [address] [place] [address] Bernardo Lizarraga MD [address] [place] [address] Invasive ductal carcinoma of right breast (HCC) (Primary Dx); Hot flashes; Family history of cancer; Benign cyst of breast, unspecified laterality; Premenopausal patient Social History Tobacco Use [...] Sign Reading Time Taken Comments Blood Pressure 109/62 04/19/2023 2:58 PM CDT Pulse 89 04/19/2023 2:58 PM CDT Temperature 36.3 ??C (97.3 ??F) 04/19/2023 2:58 PM CD T Respiratory Rate 18 04/19/2023 2:58 PM CDT Oxygen Saturation 97% 04/19/2023 2:58 PM CDT Inhaled Oxygen Concentration - - Weight 85 kg (187 lb 4.8 oz) 04/19/2023 2:58 PM CDT Height 163.8 cm (5' 4.5 ) 04/19/2023 2:58 PM CDT Body Mass Index 31.65 04/19/2023 2:58 PM CDT documented in this encounter Patient Instructions * Patient Instructions* Bernarod Lizarraga MD - 04/19/2023 3:17 PM CDT Continue tamoxifen 20mg daily - planning 5 years (03/2028) RTC 6 months no labs documented in this encounter Progress Notes * Bernardo Lizarraga MD - 04/19/2023 3:08 PM CDT [facility] Clinic Follow Up 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 - Invasive Ductal Carcinoma of Right Breast - ER/NM+, Her2- (1+) - [id number] stage IA. Grade 1, Ki-67 3%. Bilateral mastectomy 02/18 (Horacio). Treatment history as below. - hot flashes - may be somewhat increased on tamoxifen but not significantly so. ?? - Family History of breast cancer - in her grandmother. Negative genetics 03/2023. ?? - Benign Breast Cysts - multiple drains in the past. - premenopausal ? Plan: ?? Continue tamoxifen 20mg daily - plan for 5 years (03/2028) She already gets yearly pelvic exams Genetic testing was negative Consider blood work ~02/2024 to check menopausal status Will not need surveillance mammograms as she is status post bilateral mastectomy Has colonoscopy scheduled later this year RTC 6 months no labs Bernardo Lizarraga MD - Hematology/Oncology Available on [employer] chat during the week Cell# (providers only): [phone] Oncology History: 02/2023 - Diagnosed right breast IDC - ER/NM+, Her2- (1+) - Grade 1, Ki-67 3% 02/2023 - Bilateral mastectomy (Horacio) - [id number] Stage IA - 1.5cm, 0/1 nodes positive. ?? 02/2023 - Oncotype 21 - no adjuvant chemo?? 03/2023 - Negative genetics 03/2023 - Starting tamoxifen 20mg daily - planning for 5 years (03/2028) Subjective: Betina Coy presents today for a follow up appointment. Tolerated the tamoxifen may be some increase in hot flashes but nothing significant. No new complaints otherwise. Goal of Therapy: curative Pain Scale Pain Assessment Pain Score: Zero Physical Examination: Vitals: BP 109/62 (BP SITE: LEFT ARM, BP POSITION: SITTING, BP CUFF SIZE: 12) Pulse 89 Temp 97.3 ??F (36.3 ??C) (Temporal) Resp 18 Ht 1.638 m (5' 4.5 ) Wt 85 kg (187 lb 4.8 oz) SpO2 97% Karnofsky: 90-Able to carry on normal activity: [...] 327 Recent Labs Component Name 02/05/23 0929 09/07/13 1223 SODIUM - 140 POTASSIUM - [...] Lizarraga MD - Hematology/Oncology Cell# (providers only) [phone] documented in this encounter Plan of Treatment Upcoming Encounters Date Type Department Care Team (Late st Contact Info) Description 07/19/2024 9:45 AM TREASURY ASSISTANT Office Visit [facility] - SR. PRICING ANALYST [address] [place] [address] Leatha Gupta MD [address] [place] [address] 12/11/2024 9:00 AM CDT Office Visit [facility] - Surgery [address] [facility], [address] [place] [address] [place] [address] [address] [facility] [address] [place] [address] 12/11/2024 10:40 AM CDT Office Visit [facility] Cancer Care [address] [place] [address] [address] [place] [address] [place] [address] [address] [facility] [address] [place] [address] documented as of this encounter Visit Diagnoses Diagnosis Invasive ductal carcinoma of right breast (HCC)- Primary Hot flashes Symptomatic menopausal or female climacteric states Family history of cancer Family history of unspecified malignant neoplasm Benign cyst of breast, unspecified laterality Premenopausal patient Symptomatic menopausal or female climacteric states documented in this encounter Care Teams Surveillance Systems Analyst Relationship Specialty Start Date End Date Celina Sifuentes MD [address] [place] [address] PCP - General Family Medicine 02/16/23 11/14/23 [place] [address] [place] [phone] Surgical Oncologist Surgical Oncology 02/15/23 [place] [address] [address] [place] [phone] Drying Oven Attendant/Oncologist Hematology and Oncology 02/16/23 documented as of this encounter
--- OUTSIDE RECORDS SUMMARY | 2024-07-02 04:41 | XMS_ITS | Encounter Summary ---
Author Organization [facility] Address [address] [facility] [place] [address] Care Team Providers Care Voice Coach Name Role Phone HoracioNaya Irving DO Unavailable [phone] Bernardo Lizarraga MD Unavailable [phone] Keisha Pineda Primary Care Pr ovider Reason for Visit * Reason Comments Follow-up Encounter Details Date Type Department Care Team (Late st Contact Info) Description 11/15/2023 9:40 AM CDT Office Visit [facility] [address] [place] [address] [place] [address] [address] Invasive ductal carcinoma of right [...] Sign Reading Time Taken Comments Blood Pressure 105/61 11/15/2023 9:47 AM CDT Pulse 64 11/15/2023 9:47 AM CDT Temperature 36.5 ??C (97.7 ??F) 11/15/2023 9:47 AM CD T Respiratory Rate 18 11/15/2023 9:47 AM CDT Oxygen Saturation 98% 11/15/2023 9:47 AM CDT RA Inhaled Oxygen Concentration - - Weight 78.2 kg (172 lb 6.4 oz) 11/15/2023 9:47 A M CDT Height 163.8 cm (5' 4.5 ) 11/15/2023 9:47 AM CDT Body Mass Index 29.14 11/15/2023 9:47 AM CDT documented in this encounter Functional [...] * Patient Instructions* Bernardo Lizarraga MD - 11/15/2023 10:02 AM CDT Continue tamoxifen 20mg daily - planning 5 years (03/2028) Agree with getting fat necrosis removed RTC 6 months no labs documented in this encounter Progress Notes * Bernardo Lizarraga MD - 11/15/2023 9:40 AM CDT [facility] Clinic Follow Up Assessment: 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 Grade 1, Ki-67 3%. Bilateral mastectomy 02/18 (Horacio). Treatment history as below. - hot flashes - may be somewhat increased on tamoxifen but not significantly so. - ? Fat necrosis - left chest wall. ?? - Family History of breast cancer - in her grandmother. Negative genetics 03/2023. ?? - Benign Breast Cysts - multiple drains in the past. - premenopausal - adult health maintenance - colonoscopy due 2033. ? Plan: ?? Continue tamoxifen 20mg daily - plan for 5 years (03/2028) She already gets yearly pelvic exams Surgery plans for removal of suspected fat necrosis are noted, agree - this does not feel malignantto me Genetic testing was negative Will not need surveillance mammograms as she is status post bilateral mastectomy RTC 6 months no labs Bernardo Lizarraga MD - Hematology/Oncology Available on [employer] chat during the week Cell# (providers only): [phone] Oncology History: 02/2023 - Diagnosed right breast IDC - ER/WI+, Her2- (1+) - Grade 1, Ki-67 3% 02/2023 - Bilateral mastectomy (Horacio) - [id number] Stage IA - 1.5cm, 0/1 nodes positive. ?? 02/2023 - Oncotype 21 - no adjuvant chemo?? 03/2023 - Negative genetics 03/2023 - Starting tamoxifen 20mg daily - planning for 5 years (03/2028) Subjective: Betina Marshalldayana presents today for a follow up appointment. Seen with her . She was recently seen by surgery and there are plans to get an area of suspected fat necrosis removed. She still has hot flashes really unchanged. Beside that no new complaints. Goal of Therapy: curative Pain Scale Pain Assessment Pain Score: Zero Physical Examination: Vitals: BP 105/61 Pulse 64 Temp 97.7 ??F (36.5 ??C) Resp 18 Ht 1.638 m (5' 4.5 ) Wt 78.2 kg (172 lb 6.4 oz) SpO2 98% Comment: RA Karnofsky: 90-Able to carry on normal activity: minor symptoms of disease General: No acute distress Eyes: Conjuctivae pink Neck: Supple Lymph: No Lymphadenopathy Cardiovascular: S1 and S2 heard Lungs: .Normal Work of breathing Abdomen: Soft Extremities: No edema Neuro:Alert and oriented to person, place, and time Breast: Bilateral mastectomy - left chest wall mass ~2cm Psychosocial History PHQ-2 Patient Health Questionnaire-2 Score: [...] Lizarraga MD - Hematology/Oncology Cell# (providers only) [phone] documented in this encounter Plan of Treatment Upcoming Encounters Date Type Department Care Team (Late st Contact Info) Description 07/19/2024 9:45 AM ROTARY KILN OPERATOR Office Visit [facility] - GEAR LAPPER [address] [place] [address] Leatha Gupta MD [address] [place] [address] 12/11/2024 9:00 AM CDT Office Visit [facility] - Surgery [address] [facility], [address] [place] [address] [place] [address] [facility] [address] [place] [address] 12/11/2024 10:40 AM CDT Office Visit [facility] [address] [place], [place] [address] [phone] [place] [address] [place] [address] documented as of this encounter Visit Diagnoses Diagnosis Invasive ductal carcinoma of right breast (HCC)- Primary Hot flashes Symptomatic menopausal or female climacteric states Family history of cancer Family history of unspecified malignant neoplasm Benign cyst of breast, unspecified laterality Premenopausal patient Symptomatic menopausal or female climacteric states documented in this encounter Care Teams Voice Coach Relationship Specialty Start Date End Date Keisha Pineda PA [address] [place] [address] PCP - General Physician Cosmetologist Apprentice 11/15/23 [place] [address] [place] [address] Surgical Oncologist Surgical Oncology 02/15/23 [place] [address] [facility] [address] [place] [address] Chairman & Chief Executive Officer/Oncologist Hematology and Oncology 02/16/23 documented as of this encounter
--- OUTSIDE RECORDS SUMMARY | 2024-07-02 04:41 | XMS_ITS | Encounter Summary ---
Author Organization [facility] Address [address] [place] [address] Care Team Providers Care Shaker Tender Name Role Phone Naya Leonard DO Unavailable [phone] Bernardo Lizarraga MD Unavailable [phone] Celina Sifuentes MD Primary Care Provider [phone] Reason for Visit * Reason Comments Post-Op Bilat Mast eval jose enrique villatoro Encounter Details Date Type Department Care Team (Latest Contact Info) Description 03/16/2023 3:00 PM CDT Office Visit [facility] - Surgery [address] [place] [address] Naya Leonard DO [address] [place] [address] Postoperative seroma of subcutaneous tissue after [...] - - Weight 83.5 kg (184 lb) 03/16/2023 2:55 PM CDT Height - - Body Mass Index 31.1 03/10/2023 1:52 PM CDT documented in this encounter Patient Instructions * Patient Instructions* Coretta Mercado LPN - 03/16/2023 2:56 PM CDT Patient's medications and allergies were reviewed with the patient today. Patient was instructed tocontact primary care physician or ordering provider with any questions regarding medications. documented in this encounter Progress Notes * Naya Leonard DO - 03/16/2023 3:00 PM CDT Betina Coy is a 52 [...] Melendez. Referring physician is Leatha Gupta MD. She reports a firey burning feeling chest wall Exam Bilateral Chest Wall incision, Clean and intact, healing well. No drainage or erythema noted. Right chest wall seroma present Left chest wall seroma present Pathology: Final Diagnosis A. Left breast, prophylactic [...] -- Negative for metastatic carcinoma (0/1) at 0908 A/P: PO Right simple mastectomy, left prophylactic mastectomy, right sentinel lymph node biopsy. I&D of bilateral chest was seroma with placement of bilateral Shalom drain. The patient is doing well, questions answered. Plan bilateral chest wall seroma present, plan aspiration today Can return to work 03/22/2023 Call if any concerns; follow up in two weeks. Provide prosthetic script at next visit PROCEDURE NOTE Preoperative Diagnosis: Bilateral chest wall seroma Postoperative Diagnosis: Bilateral chest wall seroma Procedure: Aspiration of bilateral chest wall seroma Surgeon: Dr. Naya Leonard Anesthesia: Non3 Condition: Stable in the office. Description of Procedure: Once the chest garcia were prepped in the normal sterile manner, an 18 gauge needle was used to aspirate a total of 17ml from the right chest wall and 30ml from the left chest wall The fluid was discarded. A dressing was applied. The patient tolerated the procedure well and left the office in stablecondition. This document was scribed by Acacia Christiansen for Dr. Naya Leonard I have reviewed the above note and verify that I was present during this visit and the information provided is accurate. documented in this encounter Plan of Treatment Upcoming Encounters Date Type Department Care Team (Late st Contact Info) Description 07/19/2024 9:45 AM COMPUTER LAB PARA PROFESSIONAL Office Visit [facility] - STRAINER TENDER [address] [place] [address] Leatha Gupta MD [address] [place] [address] 12/11/2024 9:00 AM CDT Office Visit [facility] - Surgery [address] [place] [address] Naya Leonard DO [address] [place] [phone] 12/11/2024 10:40 AM CDT Office Visit [facility] [address] [facility] [place] [phone] [place] [address] [facility] [address] [address] [place] [phone] documented as of this encounter Visit Diagnoses Diagnosis Postoperative seroma of subcutaneous tissue after non-dermatologic procedure- Primary documented in this encounter Care Teams Shaker Tender Relationship Specialty Start Date End Date Celina Sifuentes MD [address] [place] [phone] PCP - General Family Medicine 02/16/23 11/14/23 [place] [address] [facility] [address] [place] [address] Surgical Oncologist Surgical Oncology 02/15/23 [place] [address] [facility] [address] [address] [place] [address] Casting Room Operator/Oncologist Hematology and Oncology 02/16/23 documented as of this encounter
--- OUTSIDE RECORDS SUMMARY | 2024-07-02 04:41 | XMS_ITS | Encounter Summary ---
Author Organization [facility] Address [address] [facility] [place] [address] Care Team Providers Care Rollout Manager Name Role Phone Naya Leonard DO Unavailable [phone] Bernardo Lizarraga MD Unavailable Celina Sifuentes MD Primary Care Provider [phone] Reason for Visit * Reason Onset Date Comments Question 03/16/2023 Encounter Details Date Type Department Care Team (Late st Contact Info) Description 03/16/2023 Telephone [facility] - Surgery [address] [place] [address] Naya Leonard, [address] [address] Question Social History Tobacco Use [...] Telephone Encounter - Coretta Mercado LPN - 03/16/2023 10:11 AM CDT Called pt to make an appt for this afternoon with Dr. Leonard. * Telephone Encounter - Aury Smyth - 03/16/2023 9:14 AM CDT Please call Betina back, she says her chest is filling back up with fluid. documented in this encounter Plan of Treatment Upcoming Encounters Date Type Department Care Team (Late st Contact Info) Description 07/19/2024 9:45 AM DEPUTY COMMONWEALTH'S ATTORNEY Office Visit [facility] - LOGISTICS INTERN [address] [facility] [address] Leatha Gupta MD [address] [place] [address] 12/11/2024 9:00 AM CDT Office Visit [facility] - Surgery [address] [facility], [address] [address] [place] [address] [address] 12/11/2024 10:40 AM CDT Office Visit [facility] [address] [place] [address] [place] [id number] [place] [address] [address] documented as of this encounter Visit Diagnoses Not on filedocumented in this encounter Care Teams Rollout Manager Relationship Specialty Start Date End Date Celina Sifuentes MD [address] [place] [address] PCP - General Family Medicine 02/16/23 11/14/23 [place] [address] [place] [phone] Surgical Oncologist Surgical Oncology 02/15/23 [place] [address] [place] [phone] Micromatic Hone Operator/Oncologist Hematology and Oncology 02/16/23 documented as of this encounter
--- OUTSIDE RECORDS SUMMARY | 2024-07-02 04:41 | XMS_ITS | Encounter Summary ---
Author Organization [facility] Address [address] [facility] [place] [address] Care Team Providers Care Caustic Strength Inspector Name Role Phone Naya Leonard Irving GALLO Unavailable [phone] Bernardo Lizarraga MD Unavailable [phone] Celina Sifuentes MD Primary Care Provider [phone] Reason for Referral * Procedure (Routine) - Closed Specialty Diagnoses / Procedures Referred By Contlulu t Referred To Contact Gastroenterology Diagnoses Special screening for malignant neoplasms, colon Procedures ENDOSCOPY, COLON[place] [address] [address] [place] [address] Referral ID Status Reason Start Date Expiration Date Visits Re quested Visits Authorized [id number] Closed 04/02/2023 04/01/2024 1 1 Encounter Details Date Type Department Care Team (Late st Contact Info) Description 04/02/2023 Orders Only [facility] [place] [address] [place] [address] [place] [address] [address] [place] [address] Special screening for malignant neoplasms, colon Social History Tobacco Use Types Packs/Day Years [...] as of this encounter Miscellaneous Notes * Addendum Note - Nadine Clemons - 06/30/2023 12:02 PM CSTAddended by: NADINE CLEMONS on: 06/30/2023 12:02 PM Modules accepted: Orders NCIAL INTERN documented in this encounter Plan of Treatment Upcoming Encounters Date Type Department Care Team (Late st Contact Info) Description 07/19/2024 9:45 AM FINANCIAL INTERN Office Visit [facility] - PATIENT TRANSITION SPECIALIST [address] [place] [address] Leatha Gupta MD [address] [place] [address] 12/11/2024 9:00 AM CDT Office Visit [facility] - Surgery [address] [facility], [address] [address] [place] [address] [address] 12/11/2024 10:40 AM CDT Office Visit [facility] [address] [place] [address] Bernardo Lizarraga MD [address] [place] [address] documented as of this encounter Results * ENDOSCOPY, COLON, SCREENING (09/27/2023 9:15 AM CDT) Report Endoscopy POC _ Patient Name: Betina Coy ? Procedure Date: 09/27/2023 9:15 AM ? Date of : 1970 ?Admit Type: Outpatient Age: 53 ? Gender: Female Attending MD: Adama Holliday MD, [id number] _ Procedure: ? Colonoscopy Indications: ? Screening [...] ? preparation was evaluated using the BBPS ([place] Bowel ? Preparation Scale) with scores of: [...] Procedure Code(s): ? --- Professional --- ? 04053, Colonoscopy, flexible; diagnostic, including collection of ? specimen(s) by brushing or washing, when performed (separate procedure) ? --- Technical --- ? 40064, Colonoscopy, flexible; diagnostic, including collection of ? [...] or abscess ? without bleeding CPT copyright 2021 [employer]. All rights reserved. The codes documented in this report are preliminary and upon assistant production editor review may be revised to meet current compliance requirements. __ Adama Holliday MD 09/27/2023 10:47:51 AM Number of Addenda: 0 Note Initiated On: 09/27/2023 9:15 AM [facility] ENDOSCOPY 09/27/2023 9:15 AM CDT Narrative Procedure Note Adama Holliday MD - 09/27/2023 10:48 AM CDT Colonoscopy done for screening. Normal colon other than diverticulosis.Repeat in 10 years for screening. Ricky Fuentes MD GI PROCEDURE ORDERA BETOS [facility] [place] [address] documented in this encounter Visit Diagnoses Diagnosis Special screening for malignant neoplasms, colon- Primary Special screening for malignant neoplasms, colon documented in this encounter Care Teams Caustic Strength Inspector Relationship Specialty Start Date End Date Celina Sifuentes MD [address] [place] [address] PCP - General Family Medicine 02/16/23 11/14/23 [place] [address] [address] [place] [phone] Surgical Oncologist Surgical Oncology 02/15/23 [place] [address] [address] [place] [phone] Ferris Wheel Operator/Oncologist Hematology and Oncology 02/16/23 documented as of this encounter
--- OUTSIDE RECORDS SUMMARY | 2024-07-02 04:42 | XMS_ITS | Encounter Summary ---
Author Organization [facility] Address [address] [place] [address] Care Team Providers Care Gluer And Slicer Hand Name Role Phone HoracioNaya Irving DO Unavailable [phone] Bernardo Lizarraga MD Unavailable [phone] Celina Sifuentes MD Primary Care Provider [phone] Reason for Visit * Reason Comments Follow-up Encounter Details Date Type Department Care Team (Late st Contact Info) Description 02/24/2023 10:40 AM CDT Office Visit [facility] Cancer Care [address] [place] [address] Bernardo Lizarraga MD [address] [place] [address] Invasive ductal carcinoma of right breast (HCC) (Primary Dx); Family history of cancer; Benign cyst of breast, unspecified laterality; Acute back pain, unspecified back location, unspecified back pain laterality Social History Tobacco Use Types Packs/Day Years [...] Sign Reading Time Taken Comments Blood Pressure 121/75 02/24/2023 11:11 AM CDT Pulse 82 02/24/2023 11:11 AM CDT Temperature 36.4 ??C (97.5 ??F) 02/24/2023 11:11 AM C DT Respiratory Rate 18 02/24/2023 11:11 AM CDT Oxygen Saturation 96% 02/24/2023 11:11 AM CDT RA Inhaled Oxygen Concentration - - Weight 84.1 kg (185 lb 6.4 oz) 02/24/2023 11:11 AM CDT Height 163.8 cm (5' 4.5 ) 02/24/2023 11:11 AM CD T Body Mass Index 31.33 02/24/2023 11:11 AM CDT documented in this encounter Patient Instructions * Patient Instructions* Bernardo Lizarraga MD - 02/24/2023 11:27 AM CDT Stage I breast cancer - no cancer in the lymph nodes Will send off oncotype test - to determine if you need chemo Do not need radiation Eventually will discuss tamoxifen RTC 3 weeks to discuss oncotype results documented in this encounter Progress Notes * Bernardo Lizarraga MD - 02/24/2023 10:40 AM CDT [facility] Clinic Follow Up Assessment: Piotr ?? - Invasive Ductal Carcinoma of Right Breast - ER/SD+, Her2- (1+) - [id number] stage IA. Grade 1, Ki-67 3%. Bilateral mastectomy 02/18 (Horacio). Treatment history as below. ?? - Family History of breast cancer - in her grandmother. ?? - Benign Breast Cysts - multiple drains in the past. - Back Pain - immediately after surgery ? Plan: ?? Pathology reviewed, surgery notes reviewed Surgical pathology confirming IDC 1.5cm, node negative Will send off for Oncotype - per NCCN guidelines for hormone receptor positive invasive ductal carcinoma greater than 1 cm She has seroma evacuation scheduled with Dr Melendez tomorrow Add baclofen for back pain - she is not driving Do not think she needs radiation with small node-negative tumor status post bilateral mastectomy Eventually will be candidate for endocrine therapy, she is premenopausal so will discuss tamoxifen next visit if she is not getting chemo RTC 3 weeks no labs Bernardo Lizarraga MD - Hematology/Oncology Available on [employer] chat during the week Cell# (providers only): [phone] Oncology History: 02/2023 - Diagnosed right breast IDC - ER/SD+, Her2- (1+) - Grade 1, Ki-67 3% 02/2023 - Bilateral mastectomy (Horacio) - [id number] Stage IA - 1.5cm, 0/1 nodes positive. ? Subjective: Betina Coy presents today for a follow up appointment. Has some back pain after surgery was also diagnosed with strep throat. She has to get seroma evacuation tomorrow. Back pain was immediateafter surgery. Reviewed pathology. Goal of Therapy: curative Pain Scale Pain Assessment Pain Score: Zero Physical Examination: Vitals: BP 121/75 Pulse 82 Temp 97.5 ??F (36.4 ??C) Resp 18 Ht 1.638 m (5' 4.5 ) Wt 84.1 kg (185 lb 6.4 oz) SpO2 96% Comment: RA Karnofsky: 90-Able to carry on normal activity: minor symptoms of disease General: No acute distress Eyes: Conjuctivae pink Neck: Supple Lymph: No Lymphadenopathy Cardiovascular: S1 and S2 heard Lungs: .Normal Work of breathing Abdomen: Soft Extremities: No edema Neuro:Alert and oriented to person, place, and time Psychosocial History PHQ-2 Patient Health Questionnaire-2 Score: [...] Lizarraga MD - Hematology/Oncology Cell# (providers only) [phone] documented in this encounter Plan of Treatment Upcoming Encounters Date Type Department Care Team (Late st Contact Info) Description 07/19/2024 9:45 AM HOT METAL CRANE OPERATOR Office Visit [facility] - PHOTOGRAMMETRIC SURVEYOR [address] [place] [address] Leatha Gupta MD [address] [place] [address] 12/11/2024 9:00 AM CDT Office Visit [facility] - Surgery [address] [place] [address], [address] [place] [address] [place] [address] [address] [place] [address] 12/11/2024 10:40 AM CDT Office Visit [facility] Care [address] [place] [address] [address]. [address] [place] [address] Bernardo Lizarraga MD [address] [place], [place] [address] [address] [place] [address] documented as of this encounter Visit Diagnoses Diagnosis Invasive ductal carcinoma of right breast (HCC)- Primary Family history of cancer Family history of unspecified malignant neoplasm Benign cyst of breast, unspecified laterality Acute back pain, unspecified back location, unspecified back pain laterality documented in this encounter Care Teams Gluer And Slicer Hand Relationship Specialty Start Date End Date Celina Sifuentes MD [address] [place] [address] PCP - General Family Medicine 02/16/23 11/14/23 [place] [address] [place] [phone] Surgical Oncologist Surgical Oncology 02/15/23 [place] [address] [address] [place] [phone] Merchandising Director/Oncologist Hematology and Oncology 02/16/23 documented as of this encounter
--- OUTSIDE RECORDS SUMMARY | 2024-07-02 04:42 | XMS_ITS | Encounter Summary ---
Author Organization [facility] Address [address] [place] [address] Care Team Providers Care It Technician Name Role Phone Priya Mora MD Primary Care Provider Encounter Details Date Type Department Care Team (Latest Contact Info) Description 02/16/2020 Travel Social History Tobacco Use Types Packs/Day Years Used Date Smoking Tobacco: Never Smokeless Tobacco: Never Alcohol Use Standard Drinks/Week Comments No 0 (1 standard drink = 0.6 oz pur e alcohol) Sex and Gender Information Value Date Recorded Sex Assigned at Female 10/08/2021 2:50 AM CDT Gender Identity Female 10/08/2021 2:50 AM CDT Sexual Orientation Straight 10/08/2021 2: 50 AM CDT COVID-19 Exposure Response Date Recorded In the last month, have you been in contact with someone who was confirmed or suspected to have Coronavirus / COVID-19? No / Unsure 02/16/2020 1:26 PM CDT documented as of this encounter Plan of Treatment Upcoming Encounters Date Type Department Care Team (Late st Contact Info) Description 07/19/2024 9:45 AM GEARMAN Office Visit [facility] - OPERATING THEATRE TECHNICIAN [address] [address] Leatha Gupta MD [address] [place] [address] 12/11/2024 9:00 AM CDT Office Visit [facility] - Surgery [address] [facility], [address] [place] [address] [place] [address] [facility] [address] [place] [address] 12/11/2024 10:40 AM CDT Office Visit [facility] [address] [place] [address] [address] [place] [address] [place] [address] [facility] [address] [place] [phone] documented as of this encounter Visit Diagnoses Not on filedocumented in this encounter Care Teams It Technician Relationship Specialty [place] [address] [phone] PCP - General Family Medicine 09/07/13 05/13/20 documented as of this encounter
--- OUTSIDE RECORDS SUMMARY | 2024-07-02 04:42 | XMS_ITS | Encounter Summary ---
Author Organization [facility] Address [address] [place] [address] Care Team Providers Care Nurses Supervisor Name Role Phone Unavailable Primary Care Provider Unavailabl e Reason for Referral * Radiology Services (Routine) - Closed Specialty Diagnoses / Procedures Referred By Contac t Referred To Contact Diagnoses Visit for screening mammogram Procedures MAMMO SCREENING DIGITAL IMAGE BILAT G0202 Leatha Gupta MD [address] [place] [address] Referral ID Status Reason Start Date Expiration Date Visits Re quested Visits Authorized [id number] Closed 05/20/2020 05/20/2021 1 1 ER PLATER Reason for Visit * Radiology Services (Routine) - Closed Specialty Diagnoses / Procedures Referred By Contac t Referred To Contact Diagnoses Visit for screening mammogram Procedures MAMMO SCREENING DIGITAL IMAGE BILAT G0202 Leatha Gupta MD [address] [place] [address] Referral ID Status Reason Start Date Expiration Date Visits Re quested Visits Authorized [id number] Closed 05/20/2020 05/20/2021 1 1 Encounter Details Date Type Department Care Team (Late st Contact Info) Description 05/22/2020 11:51 AM COPPER PLATER - 05/22/2020 11:59 PM COPPER PLATER Hospital Encounter [facility] [address] [place] [address] Leatha Gupta MD [address] [place] [address] Discharge Disposition: Home or Self Care Social [...] have Coronavirus / COVID-19? No / Unsure 04/22/2020 9:05 AM CDT documented as of this encounter Medications at Time of Discharge Medication Sig Dispensed Refills Start Date End Date BIOTIN FORTE PO 05/22/2021 KRILL OIL PO Take 700 mg by mouth 05/22/2021 Melatonin 10 MG 02/05/2023 Multiple Vitamins-Minerals (MULTIVITAMIN ADULT PO) 01/10 VIENVA 0.1-20 MG-MCG tablet Take 1 tablet by mouth once daily 84 tablet 3 05/14/2020 04/08/2021 VITAMIN D, CHOLECALCIFEROL, PO 05/22/20 21 VITAMIN E PO 10/07/2021 documented as of this encounter Plan of Treatment Upcoming Encounters Date Type Department Care Team (Late st Contact Info) Description 07/19/2024 9:45 AM COPPER PLATER Office Visit [facility] - IMCU NURSE [address] [place] [address] Leatha Gupta MD [address] [place] [address] 12/11/2024 9:00 AM CDT Office Visit [facility] - Surgery [address] [facility], [address] [place] [address] [place] [address] [place] [address] 12/11/2024 10:40 AM CDT Office Visit [facility] [address] [facility] [address] [place] [address] [place] [address] [facility] [address] [place] [address] documented as of this encounter Procedures Procedure Name Priority Date/Time Associated Diagnosis Comments MAMMO BILAT SCREENING Routine 05/22/2020 12:12 PM COPPER PLATER Visit for screening mammogram documented in this encounter Results * MAMMO SCREENING DIGITAL IMAGE BILAT G0202 (05/22/2020 12:12 PM COPPER PLATER) Anatomical Region Laterality Modality Breast Bilateral Mammography 05/22/2020 1:19 PM COPPER PLATER Narrative 05/22/2020 1:35 PM COPPER PLATER DIGITAL BILATERAL SCREENING MAMMOGRAMS WITH CAD AND 3-D TOMOSYNTHESIS DATE: 05/22/2020 11:51 AM PREVIOUS EXAM DATE: 01/05/2019, 05/04/2018, 12/31/2017. INDICATION: Screening TECHNIQUE: Bilateral craniocaudad (CC) and mediolateral oblique (MLO) views. Images were interpreted with the aid of CAD. 3-D tomosynthesis images were performed. TECHNOLOGIST: RT Nilson(R)(M) TISSUE DENSITY: Heterogeneously dense. This may lower [...] if suspicious findings are present clinically. An [employer]. [facility] utilizes [employer] as a reminder system to notify patients of their next recommended mammograms. Edited by Annalise Ford on 05/22/2020 1:25 PM *Reading Radiologist: Monalisa Duncan on 05/22/2020 at 1:35 PM Leatha Gupta MD MAMMO ORDERABLES documented in this encounter Visit Diagnoses Diagnosis Visit for screening mammogram Other screening mammogram documented in this encounter
--- OUTSIDE RECORDS SUMMARY | 2024-07-02 04:42 | XMS_ITS | Encounter Summary ---
Author Organization [facility] Address [address] [facility] [place] [address] Care Team Providers Care Fingernail Sculpturer Name Role Phone HoracioNaya Irving GALLO Unavailable [phone] Bernardo Lizarraga MD Unavailable [phone] Celina Sifuentes MD Primary Care Provider [phone] Reason for Visit * Reason Onset Date Comments Surgery Scheduling 02/17/2023 Encounter Details Date Type Department Care Team (Late st Contact Info) Description 02/17/2023 Telephone [facility] - [address] [address] [place] [address] [address] [address] Surgery Scheduling Social History Tobacco Use Types Packs/Day Years Used Date Smoking Tobacco: Never Smokeless Tobacco: Never Alcohol Use Standard Drinks/Week Comments No 0 (1 standard drink = 0.6 oz pur e alcohol) PHQ-2 Answer Date Recorded PHQ2 TOTAL SCORE 0 02/16/2023 Sex and Gender Information Value Date Recorded Sex Assigned at Female 10/08/2021 2:50 AM CDT Gender Identity Female 10/08/2021 2:50 AM CDT Sexual Orientation Straight 10/08/2021 2: 50 AM CDT documented as of this encounter Patient Instructions * Patient Instructions* Amber Willis - 02/17/2023 10:24 AM CDT RICKY DEJESUS M.D. OFFICE: [phone] COLONOSCOPY NOTIFY OUR OFFICE IF YOU ARE TAKING A BLOOD THINNER (ie. COUMADIN,PLAVIX,ASPIRIN) OR MEDICATIONS THAT CONTAIN ASPIRIN OR IRON. STOP ON DAY BEFORE PROCEDURE 08/01/22 Begin a CLEAR LIQUID DIET when you wake up the day before the procedure. avoiding RED colored liquids. A clear liquid diet includes: water,fruit juices without pulp, clear broth or bouillon, coffeeor tea (without milk or non dairy creamer), Gatorade, carbonated and non-carbonated soft drinks, Georges-Aid or flavored drinks, plain jello (without added fruits of toppings), popsicles, and hard candy. NO SOLID FOODS should be eaten while on the CLEAR LIQUID DIET. STEP 1: Mix prescribed solution according to directions and refrigerate. STEP 2: Noon Take 4 bisacodyl 5 mg tablets with water. (These are to be purchased over the counter) STEP 3: 3 pm Drink half of bowel prep. Drink 6-8 ounces every 15-20 Minutes as tolerated. If you experience bloating or nausea, stop Drinking the prep, wait 1 hour or until your bowels begin to move. Resume drinking the bowel prep solution. (drink half over 4 hours) STEP 4: 9 pm Resume drinking the second half of bowel prep until your stools Are clear liquid with no stool particles. (complete entire jug by midnight) DAY OF PROCEDURE 08/02/22 > You may have nothing by mouth after midnight You may take your routine medications (except blood thinners) with a Sip of [place]. >[place] [address] [facility] 2nd Floor Surgery Waiting room at 9:30AM >Your procedure is scheduled for 10:30 >You will be given medication for this procedure. YOU MUST HAVE A SCENIC ARTS SUPERVISOR PRESENT TO TAKE YOU HOME. >It is ultimately your responsibility to verify insurance coverage and obtain Referral if needed. IF YOU HAVE QUESTIONS PLEASE CALL THE OFFICE AT [phone]. documented in this encounter Miscellaneous Notes * Telephone Encounter - Amber Willis - 02/17/2023 9:52 AM CDT Direct Access GI Questionnaire 1.Are you experiencing any GI symptoms? No If patient answers yes, they must be booked for an office visit first If patient answers no, continue to question 2 2. Have you had a colonoscopy in the past? No If yes, ask ???How many years ago?? ? Patients who have new GI symptoms since last colonoscopy, a negative cologuard in less than 3 years or no indication to come in before 10 years, must be scheduled for office visit first 3.???Who referred you for this procedure??? Dr. Sifuentes 4.???I am going to ask you some questions about your health and some potential medical conditions that would require an office visit with the physician before the procedure. Do you have any of the following??? (If yes to the following please schedule an office visit with a provider) Have you had a heart attack in the past 12 months? No Have you been hospitalized for Congestive heart failure in the past 6 months? No Do you have severe heart valvular disease? No Are you being evaluated by a doctor for a new heart condition? No Do you experience chest pain or shortness of breath with brisk walking or 1 flight of stairs? No Have you had a stroke within the past 12 months? No Do you have severe asthma, COPD, emphysema, or pulmonary hypertension? If yes, Have you been hospitalized in the last two years for any of these conditions? No Do you use oxygen at home? No Do you believe you could be ? (Ask if female is less than 50 years old) No Are you on dialysis for kidney failure? No 5. Do you have a history of Diabetes? No (If yes patient should discuss diabetic medication management with prescribing physician) 6. Are you taking any blood thinners or aspirin? No (Dr. Hampton???s patients can continue taking aspirin 81mg daily prior to colonoscopy) Route message to Dr. Hampton if pt is taking any other blood thinner other than aspirin. 7.Do you have a history of kidney disease? 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 [place] [address] [place] [address] [address] [facility] [address] [place] [address] documented as of this encounter Visit Diagnoses Not on filedocumented in this encounter Care Teams Fingernail Sculpturer Relationship Specialty Start Date End Date Celina Sifuentes MD [address] [place] [address] PCP - General Family Medicine 02/16/23 11/14/23 [place] [address] [address] [facility] [address] [place] [address] Surgical Oncologist Surgical Oncology 02/15/23 [place] [address] [address] [facility] [address] [place] [address] Referral Nurse/Oncologist Hematology and Oncology 02/16/23 documented as of this encounter
--- OUTSIDE RECORDS SUMMARY | 2024-07-02 04:42 | XMS_ITS | Encounter Summary ---
Author Organization [facility] Address [address] [place] [address] Care Team Providers Care Beater Machine Operator Name Role Phone Horacio Naya Villatoro DO Unavailable Bernardo Lizarraga MD Unavailable [phone] Celina Sifuentes MD Primary Care Provider [phone] Reason for Visit * Auth/Cert (Routine) Specialty Diagnoses / Procedures Referred By Contlulu t Referred To Contact Procedures SC EXC NECK FRITZ DEEP = 5 CM EXCISION MASS OR TUMOR CHEST Referral ID Status Reason Start Date Expiration Date Visits Re quested Visits Authorized [id number] 1 1 Encounter Details Date Type Department Care Team (Late st Contact Info) Description 02/25/2023 7:30 AM CDT - 02/25/2023 8:20 AM CDT Surgery [facility] - Perioperative Surgery [address] [place] [address] [place] [address] [facility] [address] [place] [address] Incision and drainage bilateral chest wall seroma and placement Shalom drains ?? Surgery Details Date/Time Status Location OR Service Patient Class Case Class Case Type Trauma Case? 02/25/2023 7:30 AM Posted [facility] OR 04 General Surgery Day Care Elective > 5 days Panel 1 Procedure LRB Anes Op Region Wound Class Comments Incision and drainage bilateral chest wall seroma and placement Shalom drains ?? Bilateral MAC Chest Other (see notes) PREVIOUS SURGICAL SITES Surgeon Surgeon Role Service Panel Ernesto Melendez MD Primary General 1 documented in this encounter [...] Sign Reading Time Taken Comments Blood Pressure 107/67 02/25/2023 8:15 AM CDT Pulse 83 02/25/2023 6:50 AM CDT Temperature 35.9 ??C (96.7 ??F) 02/25/2023 8:16 AM CD T Respiratory Rate 18 02/25/2023 8:15 AM CDT Oxygen Saturation 91% 02/25/2023 8:15 AM CDT Inhaled Oxygen Concentration - - Weight 83.5 kg (184 lb) 02/25/2023 6:16 AM CDT Height 162.6 cm (5' 4 ) 02/25/2023 6:16 AM CDT Body Mass Index 31.58 02/25/2023 6:16 AM CDT documented in this encounter Medications at Time of Discharge Medication Sig Dispensed Refills Start Date End Date amoxicillin (Amoxil) 500 MG capsule Take 1 (one) capsule by mouth 2 times daily for 10 days 20 capsule 02/19/2023 03/01/2023 atorvastatin (Lipitor) 20 MG tabletIndications:Hyper cholesteremia Take 1 (one) tablet by mouth at bedtime 100 tablet 4 02/06/2023 11/15/2023 baclofen (Lioresal) 10 MG tabletIndications: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 90 tablet 02/24/2023 03/17/2023 cephalexin (Keflex) 500 MG capsule Take 1 (one) capsule by mouth 2 times daily 14 capsule 02/25/2023 03/17/2023 HYDROcodone-acetaminoph en (Wise River) 5-325 MG tabletIndications:Invas albert ductal carcinoma of breast, female, right (HCC) Take 1 (one) tablet by mouth every 6 hours as needed for Pain 20 tablet 02/18/2023 03/17/2023 documented as of this encounter H&P Notes * Ernesto Melendez MD - 02/25/2023 7:06 AM CDT Patient examined, H&P reviewed and remains current and/or changes noted Ernesto Melendez MD 02/25/2023 7:07 AM * Ernesto Melendez MD - 02/25/2023 6:43 AM CDT Chief Complaint: Chest wall seroma, bilaterally History and Physical: Betina Coy is a 52 year old female who is referred by Dr. Gupta PCP is Celina Sifuentes MD.Patient underwent bilateral mastectomy and has developed recurrent bilateral chest wall seromas. Will plan placement of bilateral chest wall Shalom drains. Past Medical History: Diagnosis Date ??? Breast CA (CMS/HCC) Right ??? COVID 06/2021 ??? Hypothyroid ??? MVP (mitral valve prolapse) pt denies ??? PCOS (polycystic ovarian syndrome) Past Surgical History: Procedure Laterality Date ??? Bunionectomy Bilateral ??? Hemorrhoidectomy ??? MAMMO STEREOTACTIC RIGHT BIOPSY Right [...] [facility] No Known Allergies Medications Prior to Admission Medication Sig Dispense Refill ??? amoxicillin (Amoxil) 500 MG capsule Take 1 (one) capsule by mouth 2 times daily for 10 days 20 capsule 0 ??? atorvastatin (Lipitor) 20 MG tablet Take 1 (one) tablet by mouth at bedtime 100 tablet 4 ??? baclofen (Lioresal) 10 MG tablet Take 1 (one) tablet by mouth 3 times daily as needed for Muscle Spasms May cause drowsiness. 90 tablet 0 ??? HYDROcodone-acetaminophen (Wise River) 5-325 MG tablet Take 1 (one) tablet by mouth every 6 hours asneeded for Pain 20 tablet 0 Social History Tobacco Use ??? Smoking status: Never ??? Smokeless tobacco: Never Vaping Use ??? Vaping Use: Never used Substance Use Topics ??? Alcohol use: No ??? Drug use: Never Family History Problem Relation Name Age of Onset ??? Other Mother breast cyst ??? Cancer - Breast Paternal Grandmother Physical Examination: BMI Body mass index is 31.58 kg/m??. Constitutional: Vital signs are stable and the patient is no acute distress. Eyes: Reveal no icterus, round Neck: Neck is supple without JVD Respiratory: Lungs are clear, no distress Cardiovascular: Regular rate and rhythm. GI: Abdomen is soft and non tender. Musculoskeletal: All four extremities are warm and well perfused. Neurologic: Intact. Chest: Bilateral chest wall seroma Data Reviewed: None Impression/Plan: Bilateral chest wall seroma Will plan placement of bilateral chest wall Shalom drains. I have discussed the risks in detail (including bleeding, infection, and injury to surrounding structures) as well as the benefits and alternatives to surgery, with the patient who understands and wishes to proceed with surgery. documented in this encounter OR Notes * Operative - Ernesto Melendez MD - 02/25/2023 9:18 AM CDT [facility] OPER[facility]IVE REPORT PATIENT: : BETINA COY MR#: [id number] ADMIT DATE: 02/25/2023 CSN: [id number] DATE OF SURGERY: 02/25/2023 : 1970 PHYSICIAN: Ernesto Melendez MD ROOM: [facility] PREOPERATIVE DIAGNOSIS: Bilateral chest wall seroma. POSTOPERATIVE DIAGNOSIS: Bilateral chest wall seroma. PROCEDURES PERFORMED: Incision and drainage, bilateral chest wall seroma with placement of Shalom drain, left chest wall; placement of Shalom drain, right chest wall. SURGEON: Ernesto Melendez MD, FACS. ELA TEACHER: MARIXA Escobar. ANESTHESIA: Local with IV sedation. COMPLICATIONS: None. DRAINS: None. INDICATIONS FOR PROCEDURE: The patient is a 52-year-old, patient of my associate, underwent bilateral mastectomy. Apparently, the patient had a drain malfunction at the first postoperative day and the drains were removed on the left and one drain was removed on the right. The patient has recurrent seroma now and has need for evacuation and placement of new drains. PROCEDURE: The patient was brought to the operating room. The right drain was removed. The chest wall was prepped and draped sterilely. The left chest was approached first. The incision was made through the lateral aspect of the incision. This was opened for about 2 cm and then the cavity was evacuated. There was a large amount of Surgicel and topical thrombin hemostatic agent that was irrigated and washed, flushed out. A drain was brought through a separate stab wound and then the wound was closed with 4-0 Monocryl and skin glue. An excellent seal was obtained. The drain was secured with a 2-0 silk and a dressing was applied. Attention was then turned to the right axilla. The right lateral aspect of the wound was opened and the cavity was thoroughly irrigated. All material was irrigated clear and then a drain was brought out through a separate stab wound and sutured to the skin with 2-0 silk. Meticulous hemostasis was achieved and the drain was secured with a 2-0 silk. The drain sites were infiltrated with local anesthetic. A dressing was applied. The patient tolerated the procedure well and left the operating room in stable and satisfactory condition. Ernesto Melendez MD JSG/MODL #: [id number] * Brief Op Note - Ernesto Melendez MD - 02/25/2023 7:45 AM CDT Brief Post Operative Note Preoperative Diagnosis: Bilateral chest wall seroma Postoperative Diagnosis: same Procedure: I and D with bilat chest wall drain placement Surgeon: Ernesto Melendez MD Rn Psychiatric: MARIXA Type of anesthesia: Local, MAC Complications: none EBL: 10 cc Drains: CHANI subcutaneous x 2 documented in this encounter Miscellaneous Notes * Clinical References AVS - Reggie Moon RN - 02/25/2023 8:12 AM CDT Images from the original note were not included. [id number] Discharge Instructions: Caring for Your Ravindra-Harrington Drainage Tube Your healthcare provider discharged you with a Ravindra-Harrington drainage tube. They commonly leave this drain within the abdomen and other cavities after surgery. It helps drain and collect blood and body fluid after surgery. This can prevent swelling and reduces the risk for infection. The tube is held in place by a few stitches. It's covered with a bandage. Your healthcare provider will remove the drain when they determine you no longer need it. Home care ?? Don?t sleep on the same side as the tube. ?? Secure the tube and bag inside your clothing with a safety pin. This helps keep the tube from being pulled out. ?? Empty your drain at least twice a day. Empty it more often if the drain is full. Wash and dry your hands before emptying the drain. o Lift the opening on the drain. o Drain the fluid into a measuring cup. o Record the amount of fluid each time you empty the drain. Include the date and time it was emptied. Share this information with your healthcare provider on your next visit. o Squeeze the bulb with your hands until you hear air coming out of the bulb if your healthcare provider has instructed you to do so (sometimes the bulb is used as a reservoir without suction). Checkwith your healthcare provider about specific drain instructions. o Close the opening. ?? If you are to change the dressing around the tube, follow the directions your provider has givenyou. Some dressings may not need to be changed, but your provider will let you know. Here are some general steps to follow: o Wash your hands. o Remove the old bandage. o Wash your hands again. o Clean the skin around the incision and tube site as instructed. o Put a new bandage on the incision and tube site. Make the bandage large enough to cover the wholeincision area. o Tape the bandage in place. ?? Talk with your healthcare provider about showering with the drain. You may need to keep the bandage and tube site dry when you shower. Ask your healthcare team about the best way to do this. ?? ?Stripping? the tube helps keep blood clots from blocking the tube. Ask your healthcare team howoften you should strip the tube. Stripping may not be needed, depending on where and why your healthcare provider placed the tube. It may even be dangerous in some cases. o Hold the tubing where it leaves the skin, with one hand. This keeps it from pulling on the skin. o Pinch the tubing with the thumb and first finger of your other hand. o Slowly and firmly pull your thumb and first finger down the tubing. You may find it helpful to hold an alcohol swab between your fingers and the tube to lubricate the tubing. o If the pulling hurts or feels like the tube is coming out of the skin, stop. Begin again more gently. Follow-up care Make a follow-up appointment as directed by our staff. When to call your healthcare provider Call your healthcare provider right away if you have any of the following: ?? New or increased pain around the tube ?? Redness, swelling, or warmth around the incision or tube ?? Drainage that is foul-smelling ?? Vomiting ?? Fever of 100.4??F ( 38??C) or higher, or as directed by your provider ?? Chills ?? Fluid leaking around the tube ?? Incision doesn't seem to be healing ?? Stitches become loose or the drain starts to come out ?? Tube falls out or breaks ?? Drainage that changes from light pink to dark red ?? Blood clots in the drainage bulb ?? A sudden increase or decrease in the amount of drainage (over 30 mL) Last Reviewed Date: 2021 ?? 4813-2271 [employer]: turn off the lights. All rights reserved. This information is not intended as a substitute for professional medical care. Always follow your healthcare professional's instructions. documented in this encounter Plan of Treatment Upcoming Encounters Date Type Department Care Team (Late st Contact Info) Description 07/19/2024 9:45 AM RESEARCH AND DEVELOPMENT DIRECTOR Office Visit [facility] - IS ARCHITECT [address] [place] [address] Leatha Gupta MD [address] [place] [address] 12/11/2024 9:00 AM CDT Office Visit [facility] - Surgery [address] [place] [address], [address] [place] [address] [place] [address] [address] 12/11/2024 10:40 AM CDT Office Visit [facility] [address] [place] [address] [address] [place]ardo Lizarr[place] [id number] [place] [address] documented as of this encounter Procedures Procedure Name Priority Date/Time Associated Diagnosis Comments SC EXC NECK FRITZ DEEP = 5 CM 02/25/2023 7:20 AM CDT HCG URINE QUALITATIVE STAT 02/25/2023 6:32 AM CDT Preoperative examination documented in this encounter Results * HCG URINE QUALITATIVE (02/25/2023 6:32 AM CDT) hCG Qualitative Urine Negative Negative 02/25/2023 6:42 AM CDT [facility] Urine URINE / Unknown Collection / Unknown 02/25/2023 6:32 AM CDT 02/25/2023 6:36 AM CDT Kaila Jamison DO LAB - URINALYSIS ORD ERABLES [facility] [address] [place] [address] documented in this encounter Visit Diagnoses Not on filedocumented in this encounter Administered Medications Inactive Administered Medications - up to 3 most recent administrations Medication Order MAR Action Action Date Dose Rate Site 0.9% NaCl injection 1-10 mL 1-10 mL, Intracatheter, PRN, Other, peripheral line flush, Starting on Gema 02/25/23 at 0707, Until Gema 02/25/23 at 1025, Flush peripheral IV catheter with 1-10 mL of normal saline before and after medications and prn to clear blood from the line or to verify patency., Pre-op 0.9% NaCl injection 3 mL 3 mL, Intracatheter, EVERY 8 HOURS, First dose on Gema 02/25/23 at 0745, Until Discontinued, Flush peripheral IV catheter with 3 mL of normal saline every 8 hours., Pre-op 0.9% nacl irrigation solution CONTINUOUS PRN, Starting on Gema 02/25/23 at 0749, Until Gema 02/25/23 at 1025, Intra-op $ New Bag/Syringe 02/25/2023 7:49 AM CDT 500 mL Operative Site acetaminophen (Tylenol) tablet 1,000 mg 1,000 mg, Oral, PRE-OP ONCE, 1 dose, On Gema 02/25/23 at 0600, For patients >50 Kg. Not for bariatric or cardiac patients. Patient preference for lesser PRN pain meds may be honored when the patient requests a less strong medication, a lower dose, or a less intrusive route of administration when the lesser drug, dose and route have been ordered for the patient. This patient request must be documented in the MAR., Pre-op $ Given 02/25/2023 6:44 AM CDT 1,000 mg ceFAZolin (Ancef) 2 g in 0.9% NaCl IV 50 mL IVPB 2 g, at 100 mL/hr, Intravenous, PRE-OP MULTIPLE, Starting on Gema 02/25/23 at 0707, Until Gema 02/25/23 at 1025, Administer 30 minutes prior to surgical incision., Indication for anti-infective therapy: Surgical prophylaxis, Pre-op $ New Bag/Syringe 02/25/2023 7:35 AM CDT 2 g lactated ringers infusion at 20 mL/hr, Intravenous, PRE-OP CONTINUOUS, Starting on Gema 02/25/23 at 0600, Until Gema 02/25/23 at 1025, Please place order for second bag of LR for all robotic surgeries, and all carotid endarterectomies., Pre-op Restarted 02/25/2023 7:59 AM CDT $ New Bag/Syringe 02/25/2023 7:29 AM CDT 100 mL /hr lidocaine 2% - EPINEPHrine 1:100,000 injection PRN, Starting on Gema 02/25/23 at 0749, Until Gema 02/25/23 at 1025, Intra-op $ Given 02/25/2023 7:49 AM CDT 5 mL Opera tive Site documented in this encounter Active and Recently Administered Medications Times are shown in CDT. Scheduled Medication Order 02/23/2023 02/24/2023 02/25/2023 0.9% NaCl injection 3 mL(Linked Group 1) 3 mL, Intracatheter, EVERY 8 HOURS, First dose on Gema 02/25/23 at 0745, Until Discontinued, Flush peripheral IV catheter with 3 mL of normal saline every 8 hours., Pre-op 0745 (Due) acetaminophen (Tylenol) tablet 1,000 mg (COMPLETED) 1,000 mg, Oral, PRE-OP ONCE, 1 dose, On Gema 02/25/23 at 0600, For patients >50 Kg. Not for bariatric or cardiac patients. Patient preference for lesser PRN pain meds may be honored when the patient requests a less strong medication, a lower dose, or a less intrusive route of administration when the lesser drug, dose and route have been ordered for the patient. This patient request must be documented in the MAR., Pre-op 0644 ($ Given - Prov ider: Reggie Moon RN) ceFAZolin (Ancef) 2 g in 0.9% NaCl IV 50 mL IVPB 2 g, at 100 mL/hr, Intravenous, PRE-OP MULTIPLE, Starting on Gema 02/25/23 at 0707, Until Gema 02/25/23 at 1025, Administer 30 minutes prior to surgical incision., Indication for anti-infective therapy: Surgical prophylaxis, Pre-op 0735 ($ New Bag/Syri nge - Provider: JULIO CESAR Boogie) insulin regular human (HumuLIN R; NovoLIN R) 100 UNIT/ML injection 0-6 Units 0-6 Units, Intravenous, ONCE, 1 dose, On Gema 02/25/23 at 0600, For all diabetic patients POC Glucose Regular Insulin Dose 0 - 151 mg/dL = 0 units 151 - 180 mg/dL = 2 units 181 - 220 mg/dL = 3 units 221 - 260 mg/dL = 4 units 261 - 300 mg/dL = 5 units Above 300 mg/dL = 6 units . WASTE DISPOSAL INSTRUCTIONS: Black Bin Disposal required., Pre-op 0600 (Due) lidocaine PF (Xylocaine MPF) 1 % injection 0.2 mL 0.2 mL, Infiltration, PRE-OP ONCE, 1 dose, On Gema 02/25/23 at 0600, May be used (0.5 ml locally to anesthetize prior to insertion). For patients not allergic to local anesthetics., Pre-op 0600 (Due) throat lozenge 1 lozenge 1 lozenge, Oral, POST-OP ONCE, 1 dose, On Gema 02/25/23 at 0645 0645 (Due) Continuous Medication Order 02/23/2023 02/24/2023 02/25/2023 lactated ringers infusion at 20 mL/hr, Intravenous, PRE-OP CONTINUOUS, Starting on Gema 02/25/23 at 0600, Until Gema 02/25/23 at 1025, Please place order for second bag of LR for all robotic surgeries, and all carotid endarterectomies., Pre-op 0729 ($ New Bag/Syri nge - Provider: JULIO CESAR Boogie)0758 (Paused - Provider: JULIO CESAR Boogie - Comment: Switch to gravity)0759 (Restarted - Provider: JULIO CESAR Boogie) PRN Medication Order 02/23/2023 02/24/2023 02/25/2023 0.9% NaCl injection 1-10 mL(Linked Group 1) 1-10 mL, Intracatheter, PRN, Other, peripheral line flush, Starting on Gema 02/25/23 at 0707, Until Gema 02/25/23 at 1025, Flush peripheral IV catheter with 1-10 mL of normal saline before and after medications and prn to clear blood from the line or to verify patency., Pre-op 0.9% nacl irrigation solution CONTINUOUS PRN, Starting on Gema 02/25/23 at 0749, Until Gema 02/25/23 at 1025, Intra-op 0749 ($ New Bag/Syri nge - Provider: Ernesto Melendez MD) lidocaine 2% - EPINEPHrine 1:100,000 injection PRN, Starting on Gema 02/25/23 at 0749, Until Gema 02/25/23 at 1025, Intra-op 0749 ($ Given - Prov ider: Ernesto Melendez MD) Linked Groups Order Group 1: SALINE LOCK, INSERT AND MAINTAIN (CANCELED) Routine, CONTINUOUS, Starting on Gema 02/25/23 at 0715, Until Specified, Pre-op, New collection And 0.9% NaCl injection 3 mLJump to med 3 mL, Intracatheter, EVERY 8 HOURS, First dose on Gema 02/25/23 at 0745, Until Discontinued, Flush peripheral IV catheter with 3 mL of normal saline every 8 hours., Pre-op And 0.9% NaCl injection 1-10 mLJump to med 1-10 mL, Intracatheter, PRN, Other, peripheral line flush, Starting on Gema 02/25/23 at 0707, Until Gema 02/25/23 at 1025, Flush peripheral IV catheter with 1-10 mL of normal saline before and after medications and prn to clear blood from the line or to verify patency., Pre-op documented in this encounter Care Teams Beater Machine Operator Relationship Specialty Start Date End Date Celina Sifuentes MD [address] [place] [address] PCP - General Family Medicine 02/16/23 11/14/23 [place] [address] [place] [address] Surgical Oncologist Surgical Oncology 02/15/23 [place] [address] [address] Metal Stamping Machine Operator/Oncologist Hematology and Oncology 02/16/23 documented as of this encounter
--- OUTSIDE RECORDS SUMMARY | 2024-07-02 04:42 | XMS_ITS | Encounter Summary ---
Author Organization [facility] Address [address] [place] [address] Care Team Providers Care Electrical Prospecting Supervisor Name Role Phone Unavailable Primary Care Provider Unavailabl e Encounter Details Date Type Department Care Team (Late Contact Info) Description 02/06/2023 Orders Only [facility] - Family Medicine [address] [place] [address] Celina Sifuentes MD [address] [place] [address] Hypercholesteremia Social History Tobacco Use Types Packs/Day Years Used Date Smoking Tobacco: Never Smokeless Tobacco: Never Alcohol Use Standard Drinks/Week Comments No 0 (1 standard drink = 0.6 oz pur e alcohol) PHQ-2 Answer Date Recorded PHQ2 TOTAL SCORE 0 02/05/2023 Sex and Gender Information Value Date Recorded Sex Assigned at Female 10/08/2021 2:50 AM CDT Gender Identity Female 10/08/2021 2:50 AM CDT Sexual Orientation Straight 10/08/2021 2: 50 AM CDT documented as of this encounter Plan of Treatment Upcoming Encounters Date Type Department Care Team (Late Contact Info) Description 07/19/2024 9:45 AM CASTING WHEEL OPERATOR HELPER Office Visit [facility] - PASTE UP COPY CAMERA OPERATOR [address] [place] [address] Leatha Gupta MD [facility] [place] [address] 12/11/2024 9:00 AM CDT Office Visit [facility] Medical [facility] - Surgery [address] [facility], [address] [address] [place] [address] [address] 12/11/2024 10:40 AM CDT Office Visit [facility] [address] [place] [address] [address] [place] [address] [address] documented as of this encounter Visit Diagnoses Diagnosis Hypercholesteremia- Primary Pure hypercholesterolemia documented in this encounter
--- OUTSIDE RECORDS SUMMARY | 2024-07-02 04:42 | XMS_ITS | Encounter Summary ---
Author Organization [facility] Address [address] [place] [address] Care Team Providers Care Carpentry Professional Name Role Phone Priya Mora MD Primary Care Provider Encounter Details Date Type Department Care Team (Latest Contact Info) Description 04/22/2020 Travel Social History Tobacco Use Types Packs/Day [...] st Contact Info) Description 07/19/2024 9:45 AM TRIM MACHINE ADJUSTER Office Visit [facility] - MEDTRONICS TECHNICIAN [address] [address] Leatha Gupta MD [address] [place] [address] 12/11/2024 9:00 AM CDT Office Visit [facility] - Surgery [address] [facility], [address] [place] [address] [place] [address] [facility] [address] [place] [address] 12/11/2024 10:40 AM CDT Office Visit [facility] [address] [place] [address] [address] [place] [address] [place] [address] [facility] [address] [place] [address] documented as of this encounter Visit Diagnoses Not on filedocumented in this encounter Care Teams Carpentry Professional Relationship Specialty Start [place] [address] [phone] PCP - General Family Medicine 09/07/13 05/13/20 documented as of this encounter
--- OUTSIDE RECORDS SUMMARY | 2024-07-02 04:42 | XMS_ITS | Encounter Summary ---
Author Organization [facility] Address [address] [place] [address] Care Team Providers Care Research Coordinator Name Role Phone Unavailable Primary Care Provider Unavailabl e Reason for Referral * Radiology Services (Routine) - Closed Specialty Diagnoses / Procedures Referred By Contac t Referred To Contact Diagnoses Abnormal mammogram of left breast Procedures US BREAST LEFT LTD Leatha Gupta MD [address] [place] [address] Referral ID Status Reason Start Date Expiration Date Visits Re quested Visits Authorized Closed 12/24/2021 12/24/2022 1 1 Reason for Visit * Radiology Services (Routine) - Closed Specialty Diagnoses / Procedures Referred By Contac t Referred To Contact Diagnoses Abnormal mammogram of left breast Procedures US BREAST LEFT LTD Leatha Gupta MD [address] [place] [address] Referral ID Status Reason Start Date Expiration Date Visits Re quested Visits Authorized [id number] Closed 12/24/2021 12/24/2022 1 1 Encounter Details Date Type Department Care Team (Late st Contact Info) Description 03/17/2022 1:25 PM CDT - 03/17/2022 11:59 PM CDT Hospital Encounter [facility] Health Imaging Services - Ultrasound [address] [place] [address] Leatha Gupta MD [address] [place] [address] Discharge Disposition: Home or Self Care Social History Tobacco Use Types Packs/Day Years Used Date Smoking Tobacco: Never Smokeless Tobacco: Never Alcohol Use Standard Drinks/Week Comments No 0 (1 standard drink = 0.6 oz pur e alcohol) PHQ-2 Answer Date Recorded PHQ2 TOTAL SCORE 0 05/22/2021 Sex and Gender Information Value Date Recorded Sex Assigned at Female 10/08/2021 2:50 AM CDT Gender Identity Female 10/08/2021 2:50 AM CDT Sexual Orientation Straight 10/08/2021 2: 50 AM CDT documented as of this encounter Medications at Time of Discharge Medication Sig Dispensed Refills Start Date End Date Levonorgest-Ethinyl Estradiol (LOSEASONIQUE) 0.1-0.02 & 0.01 MG TABS tablet Take 1 tablet by mouth once daily 91 tablet 4 05/22/2021 05/26/2022 Melatonin 10 MG 02/05/2023 Multiple Vitamins-Minerals (MULTIVITAMIN ADULT PO) 01/10 documented as of this encounter Plan of Treatment Upcoming Encounters Date Type Department Care Team (Late st Contact Info) Description 07/19/2024 9:45 AM AIRPLANE GASTANK LINER ASSEMBLER Office Visit [facility] - FABRIC SEPARATOR OPERATOR [address] [place] [address] Leatha Gupta MD [address] [place] [address] 12/11/2024 9:00 AM CDT Office Visit [facility] - Surgery [address] [place] [address] [place] [address] [facility] [address] [place] [address] 12/11/2024 10:40 AM CDT Office Visit [facility] Cancer Care [address] [place] [address] [address] [place] [address] [place] [address] [place] [phone] documented as of this encounter Procedures Procedure Name Priority Date/Time Associated Diagnosis Comments US BREAST LEFT LTD Routine 03/17/2022 2: 04 PM CDT Abnormal mammogram of left breast documented in this encounter Results * US BREAST LEFT LTD (03/17/2022 2:04 [...] outer quadrant was performed by a trained facility engineer. In the left breast 2:00 position 8 cm from the nipple posterior depth there is a group of simple cysts measuring 2.0 x 1.1 x 2.3 cm in aggregate. ?? Leatha Gupta MD US ORDERABLES documented in this encounter Visit Diagnoses Diagnosis Abnormal mammogram of left breast documented in this encounter
--- OUTSIDE RECORDS SUMMARY | 2024-07-02 04:42 | XMS_ITS | Encounter Summary ---
Author Organization [facility] Address [address] [facility] [place] [address] Care Team Providers Care Brake Shoe Rebuilder Name Role Phone Unavailable Primary Care Provider Unavailabl e Reason for Visit * Reason Onset Date Comments Order 01/19/2023 Encounter Details Date Type Department Care Team (Late st Contact Info) Description 01/19/2023 Telephone [facility] - DEALER ACCOUNTS INVESTIGATOR [id number] [place] [address] Leatha Gupta MD [facility] [place] [address] Order Social History Tobacco Use Types Packs/Day Years Used Date Smoking Tobacco: Never Smokeless Tobacco: Never Alcohol Use Standard Drinks/Week Comments No 0 (1 standard drink = 0.6 oz pur e alcohol) PHQ-2 Answer Date Recorded PHQ2 TOTAL SCORE 0 08/02/2022 Sex and Gender Information Value Date Recorded Sex Assigned at Female 10/08/2021 2:50 AM CDT Gender Identity Female 10/08/2021 2:50 AM CDT Sexual Orientation Straight 10/08/2021 2: 50 AM CDT documented as of this encounter Miscellaneous Notes * Telephone Encounter - Antonia Huerta RN - 01/19/2023 11:31 AM CDT Pt called in asking for the MRI order, states she has two appts with surgeons coming up that the MRI results are needed for. Pt not sure who to proceed. RN to call Dr. Leonard' office. Spoke with Dr. Leonard' office, Angella Pt scheduled as a new pt on 01/25/2023. States the breast imaging place was to order MRI. States she just spoke with the pt right before she spoke with me. Pt is aware if MRI is needed Dr. Leonard' will order it at her appointment. * Telephone Encounter - Uzma Boyd RN - 01/19/2023 11:12 AM CDT Called [facility] Imaging. Pt had scheduled the MRI. They reached out to Dr. Leonard office who told them that Dr. Gupta had referred pt to them for the consult and MRI. They then reached out to this office for the order. Advised that Dr. Carballo did not see that MRI was necessary. [facility] Imaging to reach outto pt to see why she scheduled MRI. Will notify office if additional info is rec'd. * Telephone Encounter - Ok Torre APRN-CNP - 01/19/2023 10:02 AM CDT Who actually ordered this? Was it us or Dr Leonard? * Telephone Encounter - Marguerite Uribe RN - 01/19/2023 9:25 AM CDT Pt is scheduled for Bilateral MRI w/ w/o contrast at [facility]. Order needed. documented in this encounter Plan of Treatment Upcoming Encounters Date Type Department Care Team (Late st Contact Info) Description 07/19/2024 9:45 AM HEMODIALYSIS PATIENT CARE SPECIALIST Office Visit [facility] Medical [facility] - DEALER ACCOUNTS INVESTIGATOR [address] [place] [address] Leatha Gupta MD [address] [place] [address] 12/11/2024 9:00 AM CDT Office Visit [facility] Medical [facility] - Surgery [address] [facility], [address] [place] [address] [place] [address] [address] [facility] [address] [place] [address] 12/11/2024 10:40 AM CDT Office Visit [facility] Cancer Care [address] [place] [address] Natanael. [address] [place] [address] [place]ardo [place] [id number] [place] [address] [address] [place] [phone] documented as of this encounter Visit Diagnoses Not on filedocumented in this encounter
--- OUTSIDE RECORDS SUMMARY | 2024-07-02 04:42 | XMS_ITS | Encounter Summary ---
Author Organization [facility] Address [address] [facility] [place] [address] Care Team Providers Care Brake Mechanic Name Role Phone HoracioNaya Irving DO Unavailable [phone] Bernardo Lizarraga MD Unavailable [phone] Celina Sifuentes MD Primary Care Provider [phone] Reason for Visit * Reason Comments Post-Op Bilat mast Encounter Details Date Type Department Care Team (Latest Contact Info) Description 02/19/2023 8:30 AM CDT Clinical Support [facility] Medical [facility] - Surgery [address] [place] [address], [address] [address] S/P bilateral mastectomy ; Surgery follow-up Social History Tobacco Use Types Packs/Day Years [...] - - Weight 85.3 kg (188 lb) 02/19/2023 8:49 AM CDT Height - - Body Mass Index 32.27 02/19/2023 3:56 AM CDT documented in this encounter Patient Instructions * Patient Instructions* Coretta Mercado LPN - 02/19/2023 8:50 AM CDT Patient's medications and allergies were reviewed with the patient today. Patient was instructed tocontact primary care physician or ordering provider with any questions regarding medications. documented in this encounter Progress Notes * Coretta Mercado LPN - 02/19/2023 8:50 AM CDT Pt. Arrived for s/p visit toby christina 02/18/23. Pt. Reports she has minimal chest pain but had been having severe throat pain and went to ED last evening and was DX with Strep throat. Today 2 drains were removed from left chest and 1 from right chest. Educated pt and on drain care and when tocall the office. They verbalized understanding. She will RTO on WednesdayFebruary [address] Melendez. documented in this encounter Plan of Treatment Upcoming Encounters Date Type Department Care Team (Late st Contact Info) Description 07/19/2024 9:45 AM WARPMAN Office Visit [facility] - CERAMIC TILE MECHANIC [address] [place] [address] Leatha Gupta MD [address] [place] [address] 12/11/2024 9:00 AM CDT Office Visit [facility] - Surgery [address] [facility], [address] [address] [place] [address] [place] [phone] 12/11/2024 10:40 AM CDT Office Visit [facility] Cancer Care [address] [place] [address] [address] [place] [phone] [place] [address] [place] [address] documented as of this encounter Visit Diagnoses Diagnosis S/P bilateral mastectomy- Primary Acquired absence of breast and nipple Surgery follow-up Follow-up examination, following unspecified surgery documented in this encounter Care Teams Brake Mechanic Relationship Specialty Start Date End Date Celnia Sifuentes MD [address] [place] [address] PCP - General Family Medicine 02/16/23 11/14/23 [place] [address] [phone] Surgical Oncologist Surgical Oncology 02/15/23 [place] [address] [facility] [address] [place] [phone] Senior Buyer/Oncologist Hematology and Oncology 02/16/23 documented as of this encounter
--- OUTSIDE RECORDS SUMMARY | 2024-07-02 04:42 | XMS_ITS | Encounter Summary ---
Author Organization [facility] Address [address] [place] [address] Care Team Providers Care Jig Fitter Name Role Phone Unavailable Primary Care Provider Unavailabl e Reason for Visit * Reason Onset Date Comments Well Women Exam Imm Inj 05/26/2022 Encounter Details Date Type Department Care Team (Late st Contact Info) Description 05/26/2022 10:30 AM JOB HAND Office Visit [facility] - CABIN CREW [address] [place] [address] Leatha Gupta MD [address] [place] [address] Well woman exam (Primary Dx); Uses oral contraception; Need for prophylactic vaccination and inoculation against influenza; DUB (dysfunctional uterine bleeding) Social History Tobacco Use Types Packs/Day Years Used Date Smoking Tobacco: Never Smokeless Tobacco: Never Tobacco Cessation:Counseling Given: Not Answered Alcohol Use Standard Drinks/Week Comments No 0 (1 standard drink = 0.6 oz pur e alcohol) PHQ-2 Answer Date Recorded PHQ2 TOTAL SCORE 0 05/26/2022 Sex and Gender Information Value Date Recorded Sex Assigned at Female 10/08/2021 2:50 AM CDT Gender Identity Female 10/08/2021 2:50 AM CDT Sexual Orientation Straight 10/08/2021 2: 50 AM CDT documented as of this encounter Last Filed Vital Signs Vital Sign Reading Time Taken Comments Blood Pressure 123/73 05/26/2022 10:33 AM JOB HAND Pulse 78 05/26/2022 10:33 AM JOB HAND Temperature - - Respiratory Rate - - Oxygen Saturation - - Inhaled Oxygen Concentration - - Weight 93 kg (205 lb) 05/26/2022 10:33 AM JOB HAND Height 162.6 cm (5' 4 ) 05/26/2022 10:33 AM JOB HAND Body Mass Index 35.19 05/26/2022 10:33 AM JOB HAND documented in this encounter Progress Notes * Leatha Gupta MD - 05/26/2022 10:53 AM CST Well Woman Yearly Exam HISTORY: Betina Coy is a 51 year old female, Patient's last menstrual period was 05/23/2022., here for a Well Woman exam. Pap not due until next year. Is getting additional dae views in Mar but can return to normal screening in December. Stopped the pills after her last visit but now bleeding every 3 weeks and having joint pain etc. Wondering what can do. Worried re the mental issues her mom had with menopause etc. Needs booster and colonoscopy. Past Medical History: Diagnosis Date ??? COVID 06/2021 ??? Hypothyroid ??? MVP (mitral valve prolapse) ??? PCOS (polycystic ovarian syndrome) Past Surgical History: Procedure Laterality Date ??? Bunionectomy ??? Hemorrhoidectomy ??? NEEDLE BIOPSY Right 2 cyst aspirations ??? OTHER SURGERY breast cyst aspiration Social History Socioeconomic History ??? Marital status: [...] ??? Alcohol use: No ??? Drug use: No ??? Sexual activity: Yes control/protection: Pill Other Topics Concern ??? Not on file Social History Narrative ??? Not on file Social Determinants of Health Financial Resource Strain: Not on file Food Insecurity: Not on file Transportation Needs: Not on file Physical Activity: Not on file Stress: Not on file Social Connections: Not on file Intimate Partner Violence: Not on file Housing Stability: Not on [...] No thyroid or diabetes problems. EXAMINATION BP 123/73 Pulse 78 Ht 5' 4 Wt 205 lb Body mass index is 35.19 kg/m??. NEURO: The patient is oriented x3. NECK: Supple and symmetrical, without any masses. Thyroid is normal without any masses or enlargement. Trachea is midline. BREASTS: Nontender, without any masses or discharge. No tissue texture changes or dimpling. SKIN: No rashes, lesions, or ulcers. ABDOMEN: Soft with good bowel sounds x4 quadrants. No masses or tenderness noted. There is no liveror spleen enlargement. No evidence of hernia. EXT: Nontender, nonedematous There is no clubbing or cyanosis. LYMPHATIC: No supraclavicular, axillary or inguinal adenopathy. EGBUS: Without any lesions or abnormalities. Normal [place]'s and [place]'s. Vagina: Moist, pink rugae without any lesions. Cervix: Closed, without any lesions. Uterus: Small, mobile, nontender. Well supported. Adnexa: Nontender without palpable masses. Exam compromised due to patient size. Urinary: Urethral meatus normal without palpable masses. Urethra without masses or tenderness. No suprapubic tenderness associated with bladder. Rectovaginal: Deferred. ASSESSMENT ICD-10-CM 1. Well woman exam Z01.419 2. Uses oral contraception Z30.41 3. Need for prophylactic vaccination and inoculation against influenza Z23 FLU VACCINE 4VALENT SPLIT *P-FREE 0.5ML IM (FLUARIX/FLULAVAL) 4. DUB (dysfunctional uterine bleeding) N93.8 Patient Active Problem List Diagnosis Date Noted ??? COVID-19 07/09/2021 Priority: Not Prioritized ??? Hypercholesteremia 01/31/2019 Priority: Not Prioritized ??? PCOS (polycystic ovarian syndrome) Priority: Not Prioritized ??? MVP (mitral valve prolapse) Priority: Not Prioritized PLAN Betina Coy is a 51 year old female, Patient's last menstrual period was 05/23/2022., here for a Well Woman exam 1. Preventative medicine: History of pap negative/HPV negative, plan repeat paps q 5 years. Routine Annual Mammograms recommended. Follow up one year 2.OCPs Will go back on a monthly pill to see if can control the periods etc. Can continue until menopause or 55. Orders Placed This Encounter ??? FLU VACCINE 4VALENT SPLIT *P-FREE 0.5ML IM (FLUARIX/FLULAVAL) ??? Lutera 0.1-20 MG-MCG tablet See orders, medications, patient instructions. Leatha Gupta MD HAND * Kacey Yu - 05/26/2022 10:37 AM CST Flu screening checklist was reviewed with the patient. VIS was given prior to administration. Injection site aseptically cleansed and injection given per Immunization(s) protocol. See Imm/Injections activity for details. HAND documented in this encounter Plan of Treatment Upcoming Encounters Date Type Department Care Team (Late st Contact Info) Description 07/19/2024 9:45 AM JOB HAND Office Visit [facility] - CABIN CREW [address] [place] [address] Leatha Gupta MD [address] [place] [phone] 12/11/2024 9:00 AM CDT Office Visit [facility] - Surgery [address] [facility], [address] [place] [address] [place] [address] [facility] [address] [place] [address] 12/11/2024 10:40 AM CDT Office Visit [facility] [address] [phone] [place] [address] [address] documented as of this encounter Visit Diagnoses Diagnosis Well woman exam- Primary Routine general medical examination at a health care facility Uses oral contraception Need for prophylactic vaccination and inoculation against influenza DUB (dysfunctional uterine bleeding) Other disorder of menstruation and other abnormal bleeding from female genital tract documented in this encounter
--- OUTSIDE RECORDS SUMMARY | 2024-07-02 04:42 | XMS_ITS | Encounter Summary ---
Author Organization [facility] Address [address] [facility] [place] [address] Care Team Providers Care Applier Name Role Phone Unavailable Primary Care Provider Unavailabl e Reason for Visit * Reason Onset Date Comments Question 01/19/2023 Encounter Details Date Type Department Care Team (Late st Contact Info) Description 01/19/2023 Telephone [facility] Medical Group - Surgery [address] [place] [address] [place] [address] [address] Question Social History Tobacco Use [...] Telephone Encounter - Angella Grajeda RN - 01/19/2023 11:39 AM CDT Returned pt call, pt coming in on the , has mamm and biopsy completed. She was scheduled for MRI but no orders were put in. Dr. Gupta's office doesn't see a need for an MRI. I informed patient she may just come see us on the and if at that point an MRI is indicated, Dr. Leonard can order it. Pt verbalized understanding. * Telephone Encounter - RoseKatlyn - 01/19/2023 11:23 AM CDT Patient is having an MRI today and needs a order. Dr. Lynn is out on leave and can Dr. Leonard giveher an order for MRI? documented in this encounter Plan of Treatment Upcoming Encounters Date Type Department Care Team (Late st Contact Info) Description 07/19/2024 9:45 AM KAIAWHINA Office Visit [facility] - DIRECTOR OF DANCE [address] [place] [address] Leatha Gupta MD [address] [place] [address] 12/11/2024 9:00 AM CDT Office Visit [facility] - Surgery [address] [facility], [address] [address] [place] [address] [address] [address] 12/11/2024 10:40 AM CDT Office Visit [facility] Cancer Care [address] [place] [address] [place], [place] [address] [address] [place] [address] [place] [address] [facility] [address] [place] [address] documented as of this encounter Visit Diagnoses Not on filedocumented in this encounter
--- OUTSIDE RECORDS SUMMARY | 2024-07-02 04:42 | XMS_ITS | Encounter Summary ---
Author Organization [facility] Address [address] [place] [address] Care Team Providers Care Gizzard Peeler Name Role Phone Unavailable Primary Care Provider Unavailabl e Reason for Referral * Radiology Services (Routine) - Closed Specialty Diagnoses / Procedures Referred By Contac t Referred To Contact Diagnoses Breast calcifications on mammogram Procedures MAMMO STEREOTACTIC RIGHT BIOPSY Leatha Gupta MD [address] [place] [address] Referral ID Status Reason Start Date Expiration Date Visits Re quested Visits Authorized [id number] Closed 01/06/2023 01/06/2024 1 1 Reason for Visit * Radiology Services (Routine) - Closed Specialty Diagnoses / Procedures Referred By Contac t Referred To Contact Diagnoses Breast calcifications on mammogram Procedures MAMMO STEREOTACTIC RIGHT BIOPSY Leatha Gupta MD [address] [place] [address] Referral ID Status Reason Start Date Expiration Date Visits Re quested Visits Authorized [id number] Closed 01/06/2023 01/06/2024 1 1 Encounter Details Date Type Department Care Team (Latest Contact Info) Description 01/06/2023 9:35 AM CDT Hospital Encounter [facility] Breast Care [address] [place] [address] Discharge Disposition: Home or Self Care Social [...] Sig Dispensed Refills Start Date End Date Lutera 0.1-20 MG-MCG tablet TK 1 T PO QD 3 packet 4 05/26/2022 02/24/2023 Melatonin 10 MG 02/05/2023 Multiple Vitamins-Minerals (MULTIVITAMIN ADULT PO) 01/10 documented as of this encounter Progress Notes * Ok Torre APRN-CNP - 01/06/2023 9:35 AM CDT Waiting for pathology result documented in this encounter Plan of Treatment Upcoming Encounters Date Type Department Care Team (Late st Contact Info) Description 07/19/2024 9:45 AM ASSISTANT PROSECUTING ATTORNEY Office Visit [facility] - DISBURSING AGENT [address] [place] [phone] Leatha Gupta MD [address] [place] [address] 12/11/2024 9:00 AM CDT Office Visit [facility] - Surgery [address] [facility], [address] [place] [address] [place] [address] [facility] [address] [place] [address] 12/11/2024 10:40 AM CDT Office Visit [facility] Cancer Care [address] [facility] [address] [place] [address] [place] [address] [place] [address] documented as of this encounter Procedures Procedure Name Priority Date/Time Associated Diagnosis Comments MAMMO STEREOTACTIC RIGHT BIOPSY Routine 01/06/2023 11:02 AM CDT Breast calcifications on mammogram documented in this encounter Results * MAMMO STEREOTACTIC RIGHT BIOPSY (01/06/2023 11:02 [...] are included within the tissue cores. ??[A Shutter GuardianurMark Mini Cork tissue marker clip was then [...] expected position. Leatha Gupta MD MAMMO ORDERABLES documented in this encounter Visit Diagnoses Diagnosis Breast calcifications on mammogram Other (abnormal) findings on radiological examination of breast documented in this encounter Administered Medications Inactive Administered Medications - up to 3 most recent administrations Medication Order MAR Action Action Date Dose Rate Site lidocaine (Xylocaine) 1 % injection Infiltration, ONCE, 1 dose, On Wed01/06/23 at 1130 $ Given 01/06/2023 10:53 AM CDT 5 mL Right Mammary lidocaine 1% (Xylocaine) - EPINEPHrine 1:100,000 injection Infiltration, ONCE, 1 dose, On Wed01/06/23 at 1130 $ Given 01/06/2023 10:53 AM CDT 20 mL Right Mammary documented in this encounter
--- OUTSIDE RECORDS SUMMARY | 2024-07-02 04:42 | XMS_ITS | Encounter Summary ---
Author Organization [facility] Address [address] [place] [address] Care Team Providers Care Ship Engines Operating Engineer Name Role Phone Naya Leonard DO Unavailable [phone] Bernardo Lizarraga MD Unavailable [phone] Celina Sifuentes MD Primary Care Provider [phone] Reason for Referral * Radiology Services (Routine) - Closed Specialty Diagnoses / Procedures Referred By Contac t Referred To Contact Diagnoses Mass of right breast, unspecified quadrant Procedures NM LYMPHOSCINTIGRAPHY Naya Leonard, [address] [address] [facility] [id number] [place] [address] Referral ID Status Reason Start Date Expiration Date Visits Re quested Visits Authorized [id number] Closed 02/02/2023 02/02/2024 1 1 Reason for Visit * Auth/Cert (Routine) Specialty Diagnoses / Procedures Referred By Contac t Referred To Contact Procedures MASTECTOMY SIMPLE COMPLETE Referral ID Status Reason Start Date Expiration Date Visits Re quested Visits Authorized [id number] 1 1 Encounter Details Date Type Department Care Team (Latest Contact Info) Description 02/18/2023 7:17 AM CDT - 02/23/2023 11:59 PM CDT Hospital Encounter [facility] Nuclear Medicine [address] [place] [address] [place] [address] [facility] [address] [place] [address] Discharge Disposition: Home or Self Care Social [...] at bedtime 100 tablet 4 02/06/2023 11/15/2023 HYDROcodone-acetaminoph en ([place]) 5-325 MG tabletIndications:Invas albert ductal carcinoma of breast, female, right (HCC) Take 1 (one) tablet by mouth every 6 hours as needed for Pain 20 tablet 02/18/2023 03/17/2023 Lutera 0.1-20 MG-MCG tablet TK 1 T PO QD 3 packet 4 05/26/2022 02/24/2023 documented as of this encounter Plan of Treatment Upcoming Encounters Date Type Department Care Team (Late st Contact Info) Description 07/19/2024 9:45 AM COMPOSITE LAMINATOR Office Visit [facility] Medical [facility] - CONCRETE BATCHER [address] [address] Leatha Gupta MD [address] [place] [address] 12/11/2024 9:00 AM CDT Office Visit [facility] - Surgery [address] [facility], [address] [place] [address] [place] [address] [place] [phone] 12/11/2024 10:40 AM CDT Office Visit [facility] [address] [facility] [address] [place] [address] [place] [address] [address] [place] [address] documented as of this encounter Procedures Procedure Name Priority Date/Time Associated Diagnosis Comments NM LYMPHOSCINTIGRAPHY Routine 02/18/2023 8:16 AM CDT Mass of right breast, unspecified quadrant documented in this encounter Results * NM LYMPHOSCINTIGRAPHY (02/18/2023 8:16 AM CDT) [...] on 02/18/2023 9:01 AM Naya MONTENEGRO ORDERABLES documented in this encounter Visit Diagnoses Diagnosis Mass of right breast, unspecified quadrant documented in this encounter Care Teams Ship Engines Operating Engineer Relationship Specialty Start Date End Date Celina Sifuentes MD [address] [place] [address] PCP - General Family Medicine 02/16/23 11/14/23 [place] [address] [address] [facility] [address] [place] [address] Surgical Oncologist Surgical Oncology 02/15/23 [place] [address] [address] [facility] [address] [place] [address] Wrecker Operator/Oncologist Hematology and Oncology 02/16/23 documented as of this encounter
--- OUTSIDE RECORDS SUMMARY | 2024-07-02 04:42 | XMS_ITS | Encounter Summary ---
Author Organization [facility] Address [address] [place] [address] Care Team Providers Care Leadership Recruiter Name Role Phone Naya Leonard DO Unavailable [phone] Bernardo Lizarraga MD Unavailable [phone] Celina Sifuentes MD Primary Care Provider [phone] Reason for Visit * Reason Onset Date Comments Pain 02/19/2023 Encounter Details Date Type Department Care Team (Late st Contact Info) Description 02/19/2023 Telephone [facility] SURGERY [address] [place] [address] [place] [address] [address] Pain Social History Tobacco Use Types Packs/Day Years [...] encounter Miscellaneous Notes * Telephone Encounter - Mahesh Eugene DO - 02/19/2023 2:57 AM CDT Called complaining of severe pain at the top of my throat in the back. She states she does not feel this is due to the endotracheal tube and she attributes this to possible Strep throat she contracts frequently, every other year. Associated symptoms include redness of her face she describes as a rash that is not painful or tender but is concerning her. I directed her to the emergency room forfurther evaluation. documented in this encounter Plan of Treatment Upcoming Encounters Date Type Department Care Team (Late st Contact Info) Description 07/19/2024 9:45 AM MEDICAL DRIVER Office Visit [facility] - TRANSIT MIX OPERATOR [address] [place] [address] Leatha Gupta MD [address] [place] [address] 12/11/2024 9:00 AM CDT Office Visit [facility] - Surgery [address] [place] [address], [address] [address] Naya Leonard DO [facility] [address] [address] 12/11/2024 10:40 AM CDT Office Visit [facility] Cancer Care [address] [place] [address] Bernardo Lizarraga MD [address] [place] [address] documented as of this encounter Visit Diagnoses Not on filedocumented in this encounter Care Teams Leadership Recruiter Relationship Specialty Start Date End Date Celina Sifuentes MD [address] [place] [address] PCP - General Family Medicine 02/16/23 11/14/23 [place] [address] [address] [place] [address] Surgical Oncologist Surgical Oncology 02/15/23 [place] [address] [place] [address] Pool Table Operator/Oncologist Hematology and Oncology 02/16/23 documented as of this encounter
--- OUTSIDE RECORDS SUMMARY | 2024-07-02 04:42 | XMS_ITS | Encounter Summary ---
Author Organization [facility] Address [address] [place] [address] Care Team Providers Care Lace Finisher Name Role Phone Naya Leonard DO Unavailable [phone] Bernardo Lizarraga MD Unavailable [phone] Celina Sifuentes MD Primary Care Provider [phone] Reason for Referral * Consultation (Routine) - Closed Specialty Diagnoses / Procedures Referred By Sherie jacobo Referred To Contact Diagnoses Mass [place], [place] [address] [address] [place] [address] Claribel Lima [address] [place] [address] Referral ID Status Reason Start Date Expiration Date V isits Requested Visits Authorized [id number] Closed Specialty Services Required 02/02/2023 02/02/2024 1 1 Reason for Visit * Consultation (Routine) - Closed Specialty Diagnoses / Procedures Referred By Sherie jacobo Referred To Contact Diagnoses Mass of right breast, [place] [address] [address] [place] [address] Claribel Lima [address] [place] [address] Referral ID Status Reason Start Date Expiration Date V isits Requested Visits Authorized [id number] Closed Specialty Services Required 02/02/2023 02/02/2024 1 1 Encounter Details Date Type Department Care Team (Latest Contact Info) Description 02/26/2023 8:58 AM CDT - 02/26/2023 11:59 PM CDT Hospital Encounter [facility] [address] [facility] [address] [place] [address] Discharge Disposition: Home or Self Care Social [...] daily 14 capsule 02/25/2023 03/17/2023 HYDROcodone-acetaminoph en ([place]) 5-325 MG tabletIndications:Invas albert ductal carcinoma of breast, female, right (HCC) Take 1 (one) tablet by mouth every 6 hours as needed for Pain 20 tablet 02/18/2023 03/17/2023 documented as of this encounter Progress Notes * Isabell Krueger, GC - 02/26/2023 9:47 AM CDT Images from the original note were not included. GENETICS TELEHEALTH CONSULTATION PATIENT NAME: Betina Coy : 1970 DATE SEEN: 02/26/2023 Referred by: Naya Leonard DO PCP: Celina Sifuentes MD Reason for Referral: Betina Coy Is a pleasant 52 year old woman who was recently diagnosed with breast cancer. Her family history is significant for paternal grandmother with breast cancer and a maternal aunt with colon cancer. History of Present Illness/Medical History: She was diagnosed at age 52 with infiltrating ductal carcinoma of the right breast, ER positive, PRPositive, Her2 negative, status post bilateral mastectomy 02/18/2023. Menarche occurred at age 12. She is G3,P3 and had her first child at age 23. She was on oral contraceptives for a total of 23 years. She denies use of HRT. She has not had a hysterectomy or oophorectomy. She is premenopausal. She reports that she is scheduled for her first screening colonoscopy in July,. She denies any history of thyroid disease, skin cancer, or atypical skin lesions. Family History: She completed the online family history form. - Paternal grandmother from breast cancer at 78 - Maternal aunt dxd with rectal cancer at 65, from cancer at 67 She knows of no other relatives with cancer, though has limited contact with her maternal relatives. No relatives have had genetic testing. Maternal ancestry: Paternal ancestry: Jordi There is no known Anabaptist ancestry. 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 Her son lives in [place], [place], 27 year old daughter lives in [place], and 23year old daughter lives in [place]. Assessment/Genetic Counseling Germline genetic testing is indicated given her history of breast cancer, family history of paternal grandmother with breast cancer, and the limited size of her paternal family (only one paternal aunt). Such limited family history can mask the presence of an inherited cancer risk gene mutation. Differential includes testing for mutations in BRCA1/2, PALB2, BRYSON, and CHEK2. We discussed the potential results (positive, negative, variant of uncertain significance) and the benefits, risks, and limitations of multi-gene panel testing. The results of genetic testing could impact her medical management by clarifying her risk for ovarian and/or other cancers and provide valuable information to her children and other relatives. For example, if she tests positive for a BRCAgene mutation, then management recommendations would include risk-reducing bilateral salpingo-oophorectomy and her relatives could be tested for that same mutation. Limitations of multi-gene testing panels include: current lack of medical management guidelines for some of the included genes and an increased chance of identifying variants of uncertain significance. We also discussed that the Genetic Information Nondiscrimination Act (YUSEF) is federal legislation that prohibits health insurance and employment discrimination on the basis of genetic information ora genetic test result. However, YUSEF does not cover life, disability, or fpc care insurance. W tianna the incidence of genetic discrimination involving health insurance appears to be small, the risk of genetic discrimination in life and disability insurance is likely to be more substantial. Therefore, individuals may wish to address any life,disability, or creative lead care insurance issues priorto undergoing genetic testing. Plan: She elected multi-gene panel testing, [facility]RNA [facility]. She will be emailed information about hereditary cancer testing and a test req to take to the lab, [facility], that contracts with [facility]. We discussed that once they receive the sample, [facility] will verify insurance coverage and will notify her if her estimated yry-zi-[id number] cost is > $100. Turn around time for results is about three to four weeks. Additional genetic counseling will be provided once results are available. Patient Verification and Telemedicine Based Consent The patient has given verbal consent to have today's visit conducted by this same means with treatment provided remotely. The patient verbally consents to the billing and collection practices of [facility]. Patient location: home This encounter was performed using: telemedicine, audio only Reason for not using video for visit: patient does not have the technology Time spent with patient/proxy: 45 minutes documented in this encounter Plan of Treatment Upcoming Encounters Date Type Department Care Team (Late st Contact Info) Description 07/19/2024 9:45 AM ELECTRICAL ELECTRONICS TECHNICIAN Office Visit [facility] - HOGSHEAD OPENER [address] [facility] [place] [address] Leatha Gupta MD [address] [place] [address] 12/11/2024 9:00 AM CDT Office Visit [facility] - Surgery [address] [facility], [address] [place] [address] [place] [address] [address] [facility] [address] [place] [address] 12/11/2024 10:40 AM CDT Office Visit [facility] Cancer Care [address] [place] [address] [address] [place] [address] [place] [address] [address] [place] [address] Scheduled Referrals Name Type Priority Associated Diagnoses Orde r Schedule AMB REFERRAL TO GENETICS Outpatient Referral Routine Mass of right breast, unspecified quadrant 1 Occurrences starting 02/26/2023 until 02/26/2023 documented as of this encounter Visit Diagnoses Diagnosis Mass of right breast, unspecified quadrant documented in this encounter Care Teams Lace Finisher Relationship Specialty Start Date End Date Celina Sifuentes MD [address] [place] [address] PCP - General Family Medicine 02/16/23 11/14/23 [place] [address] [address] [facility] [address] [place] [address] Surgical Oncologist Surgical Oncology 02/15/23 [place] [address] [address] [place] [address] Divinity Professor/Oncologist Hematology and Oncology 02/16/23 documented as of this encounter
--- OUTSIDE RECORDS SUMMARY | 2024-07-02 04:42 | XMS_ITS | Encounter Summary ---
Author Organization [facility] Address [address] [facility] [place] [address] Care Team Providers Care Worsted Winder Name Role Phone Unavailable Primary Care Provider Unavailabl e Reason for Visit * Radiology Services (Routine) - Closed Specialty Diagnoses / Procedures Referred By Cristinaac t Referred To Contact MRI Diagnoses Mass of right breast, unspecified quadrant Procedures MRI [place] [address] [place] [address] [facility] Mri [address] [address] Referral ID Status Reason Start Date Expiration Date Visits Re quested Visits Authorized [id number] Closed 01/19/2023 01/19/2024 1 1 Encounter Details Date Type Department Care Team (Latest Contact Info) Description 01/19/2023 1:32 PM CDT - 01/19/2023 11:59 PM CDT Hospital Encounter [facility] Imaging Services - MRI [address] [facility] [address] [place] [address] Discharge Disposition: Home or Self Care [...] st Contact Info) Description 07/19/2024 9:45 AM CASH REGISTER MECHANIC Office Visit [facility] - PODIATRIC MEDICINE DOCTOR [address] [place] [address] Leatha Gupta MD [address] [place] [address] 12/11/2024 9:00 AM CDT Office Visit [facility] - Surgery [address] [place] [address], [address] [address] [place] [address] [address] 12/11/2024 10:40 AM CDT Office Visit [facility] [address] [place] [address] [address] [place] [phone] Bernardo Lizarraga MD [address] [place] [address] documented as of this encounter Procedures Procedure Name Priority Date/Time Associated Diagnosis Comments MRI BREAST BILAT WWO CONTRAST Routine 01/19/2023 3:39 PM CDT Mass of right breast, unspecified quadrant documented in this encounter Results * (ABNORMAL) MRI BREAST BILAT WWO CONTRAST [...] left axilla. Naya Leonard DO MR ORDERABLES documented in this encounter Visit Diagnoses Diagnosis Mass of right breast, unspecified quadrant documented in this encounter Administered Medications Inactive Administered Medications - up to 3 most recent administrations Medication Order MAR Action Action Date Dose Rate Site gadoterate meglumine (Dotarem/Clariscan) injection Intravenous, CONTRAST ONCE, Starting on Wed01/19/23 at 1539, Until Wed01/20/23 at 0123 $ Given - Contrast 01/19/2023 3:41 PM CDT 20 mL Left Arm documented in this encounter
--- OUTSIDE RECORDS SUMMARY | 2024-07-02 04:42 | XMS_ITS | Encounter Summary ---
Author Organization [facility] Address [address] [place] [address] Care Team Providers Care Pyrotechnician Name Role Phone Naya Leonard Irving DO Unavailable Bernardo Lizarraga MD Unavailable [phone] Celina Sifuentes MD Primary Care Provider [phone] Reason for Visit * Auth/Cert (Routine) Specialty Diagnoses / Procedures Referred By Contac t Referred To Contact Procedures MASTECTOMY SIMPLE COMPLETE Referral ID Status Reason Start Date Expiration Date Visits Re quested Visits Authorized [id number] 1 1 Encounter Details Date Type Department Care Team (Late st Contact Info) Description 02/18/2023 8:44 AM CDT Anesthesia Event [facility] - Perioperative Surgery [address] [place] [address] Alan Damon MD [address] [place] [id number] Anesthesia Record Procedure Summary Procedure Name Responsible Anesthesiologist Anesthesia Start Time Anesthesia Stop Time RIGHT SIMPLE MASTECTOMY, RIGHT SENTINEL LYMPH NODE BX, LEFT PROPHYLACTIC MASTECTOMY (Bilateral: Breast) Alan Damon MD 02/18/23 0844 02/18/23 1147 Events Date Time Event Comment 02/18/2023 0658 0844 An Start 0846 An Start Data 0849 PT Reassessment 0850 An Induction 0853 An Intubation 0908 Timeout Anesthesia part icipated in timeout at the time documented in the record by nursing. 0914 Incision 0936 An Data Art Surgeon assista nt leaning on BP cuff 1125 An Emergence 1138 Extubation 1140 Electnc Sig This record is electronically signed by the providers listed under staff. 1140 an stop data 1140 ANPTO2 1147 An Stop Meds Name Total midazolam 2 mg/2mL injection 2 mg fentaNYL 100 mcg/2mL injection 150 mcg lidocaine 1% (PF) injection (50 mg/5mL) 100 mg propofol 200 mg/20mL injection 130 mg propofol 1000 mg/100mL infusion 201.31 m g rocuronium 50 mg/5mL injection 20 mg ondansetron 4 mg/2mL injection 8 mg dexamethasone 4 mg/mL injection 8 mg ceFAZolin (Ancef) 2 g in 0.9% NaCl IV 50 mL IVPB 2 g diphenhydrAMINE 50 mg/mL injection 12.5 mg sugammadex 200 mg/2mL injection 200 mg dexmedeTOMIDine 200 mcg/2mL vial 12 mcg ePHEDrine 50 mg/mL injection 10 mg ketorolac 30 mg/mL injection 30 mg lactated ringers infusion 800 mL * Agents Name Exp. Sevoflurane Exp. N2O O2 Air Insp. Sevoflurane * Blood No blood administrations on file. Lines, Drains, and Airways Type Details Placement Removal Peripheral IV Date: 02/18/23; Time : 0701; Orientation: Left; Placed By: Manda BURRIS; Tolerance: Well 02/18/23 0701 by Cris Guevara RN 02/18/23 1345 by Ann Sosa RN ETT Date: 02/18/23; Time : 0853; Placed By: JULIO CESAR Crews; Vent: easy mask; Induction: Standard IV; Blade Type: Weaver; Blade Size: 2; Laryngoscopy View: Grade 1 (full cords); Intubation Adjuncts: Stylet; Tube: Endotracheal Tube; Placement: Oral; Tube Type: Cuffed-inflated; Tube Size(mm): 7 MM; Depth of Insertion: 21 CM; Measured From: lips; Attempts: 1; Cuff Infated: Air; Verified By: Direct visualization, Bilateral breath sounds, Chest Auscultation, CO2 Monitor 02/18/23 0853 by Janell Ghotra APRN-CRNA 02/18/23 1140 by Janell Ghotra APRN-CRNA Procedural Site (Incision) 02/18/23; 0914; Left, Medial; Breast; 02/18/23; 2103 02/18/23 0914 by Nathaniel Dalton RN 02/18/23 2103 by Generic, Auto Release Drain 02/18/23; 1008; Dr. Naya Leonard; 3; Channel; Bulb; 19; Bard; Channel Drain; [id number]; [id number]; Left; Breast; General Anesthesia; 02/19/23 02/18/23 1008 by Nathaniel Dalton RN 02/19/23 0000 by Reggie Moon RN Drain 02/18/23; 1010; Dr. Naya Leonard; 4; Channel; Bulb; 19; BARD; CHANNEL DRAIN; [id number]; [id number]; Lateral, Left; Breast; General Anesthesia; 02/19/23 02/18/23 1010 by Nathaniel Dalton RN 02/19/23 0000 by Reggie Moon RN Procedural Site (Incision) 02/18/23; 1014; Right; Breast; INCISION X 1; 02/18/23; 2103 02/18/23 1014 by Nathaniel Dalton RN 02/18/23 2103 by Generic, Auto Release Drain 02/18/23; 1057; Dr. naya Leonard; 1; Channel; Bulb; 19; BARD; CHANNEL DRAIN; [id number]; [id number]; Right; Breast; General Anesthesia; 02/19/23 02/18/23 1057 by Nathaniel Dalton RN 02/19/23 0000 by Reggie Moon RN Drain 02/18/23; 1058; Dr. Naya Leonard; 2; Channel; Bulb; 19; BARD; CHANNEL DRAIN; [id number]; [id number]; Lateral, Right; Breast; None; Well; 02/25/23; 0739; DR.GLASER QUINTANA 02/18/23 1058 by Nathaniel Dalton RN 02/25/23 0739 by Joi Pearl RN documented in this encounter Social History [...] as of this encounter Progress Notes * Janell Ghotra APRN-CRNA - 02/18/2023 11:48 AM CDT ANESTHESIA POSTOP EVALUATION NOTE Procedure: RIGHT SIMPLE MASTECTOMY, RIGHT SENTINEL LYMPH NODE BX, LEFT PROPHYLACTIC MASTECTOMY (Bilateral: Breast) Betina Coy is a 52 year old female Patient Vitals for the past 6 hrs: BP Temp Pulse Resp SpO2 Pain Rating Score #1 Pain Scale/Observation 02/18/23 0645 135/76 98.2 ??F (36.8 ??C) 79 18 98 % 0 N Anesthesia Type: general ETT * No Diagnosis Codes entered * Mental Status: awake, alert and sufficiently recovered from acute administration of anesthesia to participate in the evaluation Neuro Status: No numbness, tingling or visual disturbances Respiratory Function: natural Cardiac Function: stable Postop Pain: acceptable to the patient Postop Hydration: adequate Postop Nausea: treated/stable Assessment: no apparent anesthetic complications, patient tolerated procedure well and no evidence of recall Patient Disposition: Release from Anesthesia Care NOTABLE EVENTS: No notable events documented. * Alan Damon MD - 02/18/2023 7:02 AM CDT ANESTHESIA PREOPERATIVE EVALUATION NOTE Procedure: RIGHT SIMPLE MASTECTOMY, RIGHT SENTINEL LYMPH NODE BX, LEFT PROPHYLACTIC MASTECTOMY (Bilateral: Breast) NPO status: Since Midnight; *Except Oral meds with H2O (02/18/2023 6:48 AM) Vitals: Patient Vitals for the past 6 hrs: BP Temp Pulse Resp SpO2 Pain Rating Score #1 02/18/23 0645 135/76 98.2 ??F (36.8 ??C) 79 18 98 % 0 LMP: Patient's last menstrual period was 01/23/2023. OB Status: Having periods ANESTHESIA PRE-EVALUATION NOTE Physical Exam: Orientation X3 Airway/Mallampati Score: II Mouth Opening Distance: 3 fingerwidths Neck ROM: full TM Distance: > 3 FB Teeth: normal Heart: normal - S1 S2 Lungs: clear to ausculation bilaterally Review of Systems: History of anesthetic complications: No Malignant Hyperthermia: No GERD: No Poor Exercise Tolerance: No Recent Chest Pain: No Shortness of Breath: No AICD/Pacemaker: No Diagnostic Tests: Lab(s) reviewed: Yes. Other Findings: Pleasant middle aged lady, relatively healthy, no acute cardiorespiratory symptoms,no issues with anesthesia in the past. Proceed to OR with plan for GA plus ETT. ANESTHESIA PLAN ASA Score: 2 NPO Status: No solids since midnight and No liquids within 2 hours Anesthesia Plan: general ETT and general Planned Induction: intravenous Planned Postop Destination: PACU Anesthetic plan was discussed with: patient Anesthetic Plan discussion was: Consented BMI, Height, Weight Tobacco History Estimated body mass index is 31.77 kg/m?? as calculated from the following: Height as of this encounter: 1.638 m (5' 4.5 ). Weight as of this encounter: 85.3 kg (188 lb). Social History Tobacco Use Smoking Status Never Smokeless Tobacco Never Vaping Use ??? Vaping Use: Never used Alcohol History Drug History Social History Substance and Sexual Activity Alcohol Use No Social History Substance and Sexual Activity Drug Use Never Outpatient Medications: Inpatient Medications: Outpatient Medications Marked as Taking for the 02/18/23 encounter (Hospital Encounter) Medication Sig Last Dose ??? atorvastatin Take 1 (one) tablet by mouth at bedtime 02/16/2023 ??? Lutera TK 1 T PO QD 02/15/2023 Current Facility-Administered Medications Medication Dose Last Admin ??? 0.9% NaCl 3 mL And ??? 0.9% NaCl 1-10 mL ??? ceFAZolin 2 g ??? lactated ringers New Bag at 02/18/23 0643 Allergies: No Known Allergies Relevant Problems No relevant active problems Problem List: Patient Active Problem List Diagnosis [...] BIOPSY 01/06/2023 [facility] NEO ??? NEEDLE BIOPSY Right 1018 right breast 2 cyst aspirations ??? OTHER SURGERY breast cyst aspiration ??? 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 Having periods OB History Para Term AB Living 3 3 3 0 0 3 SAB IAB Ectopic Multiple Live Births 0 0 0 0 3 # Outcome Date GA Lbr Stevan/2nd Weight Sex Delivery Anes PTL Lv 3 Term 2 Term 1 Term Covid Vaccine: Lab Results: Recent Labs Component Name 02/18/23 0636 HCGURINE Negative Recent Labs Component Name 02/05/23 0929 WBC 6.8 RBC 4.68 HCT 43.1 HGB 14.1 PLTCOUNT 327 MCV 92.1 MCH 30.1 MCHC 32.7 Recent Labs Component Name 02/05/23 0929 GLUCOSE 105 No results found for requested labs within last 120 days. No results found for requested labs within last 120 days. documented in this encounter Procedure Notes * Janell Ghotra, SALES LEADER-WORKERS' COMPENSATION HEARINGS OFFICER - 02/18/2023 9:03 AM CDTAssociated Order(s): ETT Placement Endotracheal Tube Placement: Patient Location: OR. Intubation Event Date/Time: 02/18/2023 8:53 AM Procedure: intubation (20549). Procedure Section: Sedation: under general anesthesia. Indications for Airway Management: anesthesia Induction: standard IV Patient Position: sniffing Mask Ventilation: easy. Blade Type: Weaver Blade [...] auscultation and CO2 monitor Tube secured with: adhesive tape. Dentition unchanged? Yes Difficult Airway? No. Procedure Start Time: 02/18/2023 8:53 AM. Staff Section Anesthesia Provider: Janell Ghotra APRN-CRNA, Performed the procedure documented in this encounter Miscellaneous Notes * Anesthesia Transfer of Care - Janell Ghotra APRN-CRNA - 02/18/2023 11:47 AM CDT ANESTHESIA TRANSFER OF CARE NOTE Today's Date: 02/18/2023 Date of : 1970 Patient: Betina Coy Procedure(s): RIGHT SIMPLE MASTECTOMY, RIGHT SENTINEL LYMPH NODE BX, LEFT PROPHYLACTIC MASTECTOMY Surgeon(s): Primary: Naya Leonard DO Preop Diagnosis: * No Diagnosis Codes entered * Pre-op Meds (From admission, onward) Start Stop Status Route Frequency Ordered 02/18/23 0616 0.9% NaCl injection 1-10 mL See Hyperspace for full Linked Orders Report. -- Dispensed IK PRN 02/18/23 0616 02/18/23 0630 0.9% NaCl injection 3 mL See Hyperspace for full Linked Orders Report. -- Dispensed IK EVERY 8 HOURS 02/18/23 0616 02/18/23 0941 0.9% nacl irrigation solution 02/18/23 1143 Completed CONTINUOUS PRN 02/18/23 0941 02/18/23 0630 acetaminophen (Tylenol) tablet 1,000 mg 02/18/23 0643 Completed PO PRE-OP ONCE 02/18/23 0616 02/18/23 0616 ceFAZolin (Ancef) 2 g in 0.9% NaCl IV 50 mL IVPB -- Verified IV PRE-OP MULTIPLE 02/18/23 0616 02/18/23 0900 dexAMETHasone (Decadron) injection -- Sent IV PRN 02/18/23 0914 02/18/23 0943 dexmedeTOMIDine (Precedex) injection -- Sent IV PRN 02/18/23 0945 02/18/23 0900 diphenhydrAMINE (Benadryl) injection -- Sent IV PRN 02/18/23 0914 02/18/23 1050 ePHEDrine injection -- Sent IV PRN 02/18/23 1051 02/18/23 0847 fentaNYL (PF) (Sublimaze) injection -- Sent IV PRN 02/18/23 0912 02/18/23 1104 ketorolac (Toradol) injection -- Sent IV PRN 02/18/23 1104 02/18/23 0630 lactated ringers infusion 02/18/24 0629 Dispensed IV PRE-OP CONTINUOUS 02/18/23 0616 02/18/23 0700 lidocaine (Lmx 4) 4 % cream 02/18/23 0643 Completed TP ONCE 02/18/23 0631 02/18/23 0849 lidocaine PF (Xylocaine MPF) 1 % injection -- Sent IV PRN 02/18/23 0913 02/18/23 0630 lidocaine PF (Xylocaine MPF) 1 % injection 0.2 mL 02/18/23 0644 Completed INFILTRATION PRE-OP ONCE 02/18/23 0616 02/18/23 0844 midazolam (Versed) injection -- Sent IV PRN 02/18/23 0912 02/18/23 0900 ondansetron (Zofran) injection -- Sent IV PRN 02/18/23 0914 02/18/23 0912 propofol (Diprivan) infusion -- Sent IV CONTINUOUS PRN 02/18/23 0913 02/18/23 0850 propofol (Diprivan) injection -- Sent IV PRN 02/18/23 0913 02/18/23 0851 rocuronium (Zemuron) injection -- Sent IV PRN 02/18/23 0914 02/18/23 1130 sugammadex (Bridion) injection -- Sent IV PRN 02/18/23 1130 * No Diagnosis Codes entered * . No Known Allergies Vitals: No data found. Lines, Drains, and Airways Type Details Placement Removal Peripheral IV Date: 02/18/23; Time: 0701; Orientation: Left; Location: Hand; Placed By: Manda BURRIS; Gauge: 20 Gauge; Locals: Trans Dermal; Tolerance: Well 02/18/23 0701 by Cris Guevara RN ETT Date: 02/18/23; Time: 0853; Placed By: JULIO CESAR Crews; Vent: easy mask; Induction:Standard IV; Blade Type: Weaver; Blade Size: 2; Laryngoscopy View: Grade 1 (full cords); IntubationAdjuncts: Stylet; Tube: Endotracheal Tube; Placement: Oral; Tube Type: Cuffed-inflated; Tube Size(mm): 7 MM; Depth of Insertion: 21 CM; Measured From: lips; Attempts: 1; Cuff Infated: Air; Verified By: Direct visualization, Bilateral breath sounds, Chest Auscultation, CO2 Monitor 02/18/23 0853 by Janell Ghotra APRN-CRNA 02/18/23 1140 by Janell Ghotra APRN-CRNA Drain 02/18/23; 1008; Dr. Naya Leonard; 1; Channel; Bulb; 19; Bard; Channel Drain; [id number]; [id number];Left; Breast; General Anesthesia 02/18/23 1008 by Nathaniel Dalton RN Drain 02/18/23; 1010; Dr. Naya Leonard; 2; Channel; Bulb; 19; BARD; CHANNEL DRAIN; [id number]; [id number];Lateral, Left; Breast; General Anesthesia 02/18/23 1010 by Nathaniel Dalton, [place] Drain 02/18/23; 1057; Dr. naya Leonard; 3; Channel; Bulb; 19; BARD; CHANNEL DRAIN; [id number]; [id number];Right; Breast; General Anesthesia 02/18/23 1057 by Nathaniel Dalton RN Drain 02/18/23; 1058; Dr. Naya Leonard; 4; Channel; Bulb; 19; BARD; CHANNEL DRAIN; [id number]; [id number];Lateral, Right; Breast 02/18/23 1058 by Nathaniel Dalton RN Intraprocedure I/O Totals Intake lactated ringers infusion 800.00 mL Total Intake 800 mL Output Estimated Blood Loss 300 mL Total Output 300 mL Net Net Volume 500 mL Patient Transfer Location: PACU Transport Airway: spontaneous respirations and supplemental O2 Complications: None Handoff Given? Yes Checklist or [...] report from the receiving PACUteam. 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 [place] [phone] Bernardo Lizarraga MD [id number] [place] [address] [facility] [address] [place] [address] documented as of this encounter Procedures Procedure Name Priority Date/Time Associated Diagnosis Comments ENDOTRACHEAL TUBE NOTE Routine 02/18/2023 9:03 AM CDT documented in this encounter Results * ETT LINE PERFORMABLE (02/18/2023 9:03 AM CDT) Narrative Janell Ghotra APRN-CRNA - 02/18/2023 9:03 AM CDT Janell Ghotar APRN-CRNA ? 02/18/2023 ??9:04 AM Endotracheal Tube Placement: ? Patient Location: OR. Intubation Event Date/Time: ??02/18/2023 8:53 AM Procedure: intubation (23743). Procedure Section: ?? Sedation: under general anesthesia. [...] Staff Section ? Anesthesia Provider: Janell Ghotra APRN-CRNA, Performed the procedure Alan Damon MD GENERAL ANESTHESIA O RDERABLES documented in this encounter Visit Diagnoses Not on filedocumented in this encounter Administered Medications Inactive Administered Medications - up to 3 most recent administrations Medication Order MAR Action Action Date Dose Rate Site ceFAZolin (Ancef) 2 g in 0.9% NaCl IV 50 mL IVPB 2 g, at 100 mL/hr, Intravenous, PRE-OP MULTIPLE, Starting on Gema 02/18/23 at 0616, Until Gema 02/18/23 at 1608, Administer 30 minutes prior to surgical incision., Indication for anti-infective therapy: Surgical prophylaxis, Pre-op $ New Bag/Syringe 02/18/2023 8:44 AM CDT 2 g dexAMETHasone (Decadron) injection Intravenous, PRN, Starting on Gema 02/18/23 at 0900, Until Gema 02/18/23 at 1149, Anesthesia Intra-op $ Given 02/18/2023 9:00 AM CDT 8 mg dexmedeTOMIDine (Precedex) injection Intravenous, PRN, Starting on Gema 02/18/23 at 0943, Until Gema 02/18/23 at 1149, Anesthesia Intra-op $ Given 02/18/2023 10:58 AM CDT 4 mcg $ Given 02/18/2023 10:36 AM CDT 4 mcg $ Given 02/18/2023 9:43 AM CDT 4 mcg diphenhydrAMINE (Benadryl) injection Intravenous, PRN, Starting on Gema 02/18/23 at 0900, Until Gema 02/18/23 at 1149, Anesthesia Intra-op $ Given 02/18/2023 9:00 AM CDT 12.5 mg ePHEDrine injection Intravenous, PRN, Starting on Gema 02/18/23 at 1050, Until Gema 02/18/23 at 1149, Anesthesia Intra-op $ Given 02/18/2023 10:50 AM CDT 10 mg fentaNYL (PF) (Sublimaze) injection Intravenous, PRN, Starting on Gema 02/18/23 at 0847, Until Gema 02/18/23 at 1149, Anesthesia Intra-op $ Given 02/18/2023 10:17 AM CDT 50 mcg $ Given 02/18/2023 9:27 AM CDT 25 mcg $ Given 02/18/2023 9:08 AM CDT 25 mcg ketorolac (Toradol) injection Intravenous, PRN, Starting on Gema 02/18/23 at 1104, Until Gema 02/18/23 at 1149, Anesthesia Intra-op $ Given 02/18/2023 11:04 AM CDT 30 mg lactated ringers infusion at 20 mL/hr, Intravenous, PRE-OP CONTINUOUS, Starting on Gema 02/18/23 at 0630, Until Gema 02/18/23 at 1608, Please place order for second bag of LR for all robotic surgeries, and all carotid endarterectomies., Pre-op Restarted 02/18/2023 11:46 AM CDT $ New Bag/Syringe 02/18/2023 8:44 AM CDT 20 mL/ hr $ New Bag/Syringe 02/18/2023 6:43 AM CDT 20 mL/ hr lidocaine PF (Xylocaine MPF) 1 % injection Intravenous, PRN, Starting on Gema 02/18/23 at 0849, Until Gema 02/18/23 at 1149, Anesthesia Intra-op $ Given 02/18/2023 8:49 AM CDT 100 mg midazolam (Versed) injection Intravenous, PRN, Starting on Gema 02/18/23 at 0844, Until Gema 02/18/23 at 1149, Anesthesia Intra-op $ Given 02/18/2023 8:44 AM CDT 2 mg ondansetron (Zofran) injection Intravenous, PRN, Starting on Gema 02/18/23 at 0900, Until Gema 02/18/23 at 1149, Anesthesia Intra-op $ Given 02/18/2023 11:03 AM CDT 4 mg $ Given 02/18/2023 9:00 AM CDT 4 mg propofol (Diprivan) infusion Intravenous, CONTINUOUS PRN, Starting on Gema 02/18/23 at 0912, Until Gema 02/18/23 at 1149, Anesthesia Intra-op $ New Bag/Syringe 02/18/2023 9:12 AM CDT 20 mcg/kg/min 10.236 mL/hr propofol (Diprivan) injection Intravenous, PRN, Starting on Gema 02/18/23 at 0850, Until Gema 02/18/23 at 1149, Anesthesia Intra-op $ Given 02/18/2023 8:50 AM CDT 130 mg rocuronium (Zemuron) injection Intravenous, PRN, Starting on Gema 02/18/23 at 0851, Until Gema 02/18/23 at 1149, Anesthesia Intra-op $ Given 02/18/2023 8:51 AM CDT 20 mg sugammadex (Bridion) injection Intravenous, PRN, Starting on Gema 02/18/23 at 1130, Until Gema 02/18/23 at 1149, Anesthesia Intra-op $ Given 02/18/2023 11:30 AM CDT 200 mg documented in this encounter Care Teams Pyrotechnician Relationship Specialty Start Date End Date Celina Sifuentes MD [address] [place] [phone] PCP - General Family Medicine 02/16/23 11/14/23 [place] [address] [facility] [address] [place] [id number] Surgical Oncologist Surgical Oncology 02/15/23 [place] [address] [address] [facility] [address] [place] [address] Child Nutrition Director/Oncologist Hematology and Oncology 02/16/23 documented as of this encounter
--- OUTSIDE RECORDS SUMMARY | 2024-07-02 04:42 | XMS_ITS | Encounter Summary ---
Author Organization [facility] Address [address] [place] [address] Care Team Providers Care Senior Loss Control Specialist Name Role Phone Naya Leonard DO Unavailable [phone] Bernardo Lizarraga MD Unavailable [phone] Celina Sifuentes MD Primary Care Provider [phone] Reason for Referral * (Routine) - Closed Specialty Diagnoses / Procedures Referred By Contac t Referred To Contact Procedures [place] [id number] [place] [phone] [place] [address] [place] [phone] Referral ID Status Reason Start Date Expiration Date Visits Re quested Visits Authorized [id number] Closed 02/18/2023 02/18/2024 1 1 * Transfer of Care (Routine) - Closed Specialty Diagnoses / Procedures Referred By Contac t Referred To Contact Procedures Follow up with Primary Care Provider ([place]) [place] [address] [place] [phone] Referral ID Status Reason Start Date Expiration Date Visits Re quested Visits Authorized [id number] Closed 02/18/2023 02/18/2024 1 1 Reason for Visit * Auth/Cert (Routine) Specialty Diagnoses / Procedures Referred By Sherie jacobo Referred To Contact Procedures MASTECTOMY SIMPLE COMPLETE Referral ID Status Reason Start Date Expiration Date Visits Re quested Visits Authorized [id number] 1 1 Encounter Details Date Type Department Care Team (Latest Contact Info) Description 02/18/2023 5:51 AM CDT - 02/18/2023 3:00 PM CDT Hospital Encounter [facility] - Perioperative Surgery [address] [place] [address] [place] [address] [facility] [address] [place] [phone] Surgery General Discharge Disposition: Home [...] Sign Reading Time Taken Comments Blood Pressure 143/95 02/18/2023 1:38 PM CDT Pulse 84 02/18/2023 1:38 PM CDT Temperature 36.2 ??C (97.2 ??F) 02/18/2023 1:00 PM CD T Respiratory Rate 18 02/18/2023 1:00 PM CDT Oxygen Saturation 96% 02/18/2023 1:38 PM CDT Inhaled Oxygen Concentration - - Weight 85.3 kg (188 lb) 02/18/2023 6:45 AM CDT Height 163.8 cm (5' 4.5 ) 02/18/2023 6:45 AM CDT Body Mass Index 31.77 02/18/2023 6:45 AM CDT documented in this encounter Medications at Time of Discharge Medication Sig Dispensed Refills Start Date End Date atorvastatin (Lipitor) 20 MG tabletIndications:Hyper cholesteremia Take 1 (one) tablet by mouth at bedtime 100 tablet 4 02/06/2023 11/15/2023 HYDROcodone-acetaminoph en (Allison) 5-325 MG tabletIndications:Invas albert ductal carcinoma of breast, female, right (HCC) Take 1 (one) tablet by mouth every 6 hours as needed for Pain 20 tablet 02/18/2023 03/17/2023 Lutera 0.1-20 MG-MCG tablet TK 1 T PO QD 3 packet 4 05/26/2022 02/24/2023 documented as of this encounter Progress Notes * Angella Silver RN - 02/18/2023 7:18 AM CDT Called [facility] and spoke with Sy - pt is ready for injection documented in this encounter H&P Notes * Naya Leonard DO - 02/18/2023 9:00 AM CDT This patient? s prior H&P was reviewed, the patient was examined and no change has occurred in the patient's condition since the prior H&P was completed. Naya Leonard DO Source Note - Naya Leonard DO - 02/17/2023 12:31 PM CDT Chief Complaint: Right Breast Cancer History and Physical Betina Coy is an 52 year old white female who was referred by Dr Leatha Gupta for a new diagnosis of breast cancer. Patient underwent diagnostic imaging 12/2022 which revealed a suspicious hypoechoic mass in the 11:00 position of the right and an 11.5 cm group of segmental pleomorphic micro-calcifications is seen in superior aspect of the right breast. Patient underwent ultrasound and stereotactically guided right breast biopsies by radiology on 01/06/2023. The mass at the 11 o'clock position revealed an infiltrating ductal carcinoma ER/CT positive, HER2/brittany negative with low KI 67. Thecalcifications revealed DCIS, ER/CT positive. Patient underwent breast MRI which showed multifocal/m ulticentric biopsy-proven malignancy in the RIGHT breast (based upon the documented and estimated extent of disease, the patient does not appear to be a candidate for right breast conservation therapy. If an attempt at breast conservation therapy is desired, then additional biopsies/biopsies of anterior calcifications seen mammographically would be indicated). Age of menarche was 12 Menstrual periods [...] Laterality Date ??? Bunionectomy ??? Hemorrhoidectomy ??? MAMMO STEREOTACTIC RIGHT BIOPSY Right 01/06/2023 MAMMO STEREOTACTIC RIGHT BIOPSY 01/06/2023 [facility] ??? NEEDLE BIOPSY Right 2 cyst aspirations ??? OTHER SURGERY breast cyst aspiration ??? BREAST RIGHT BIOPSY Right 01/06/2023 BREAST RIGHT BIOPSY 01/06/2023 [facility] US No Known Allergies Outpatient Medications Marked as Taking for the 02/18/23 encounter (Hospital Encounter) Medication Sig Dispense Refill ??? Lutera 0.1-20 MG-MCG tablet TK 1 T PO QD 3 packet 4 Social History Tobacco Use ??? Smoking status: Never ??? Smokeless tobacco: Never Vaping Use ??? Vaping Use: Never used Substance Use Topics ??? Alcohol use: No ??? Drug use: Never Family History Problem Relation Name Age of Onset ??? Other Mother breast cyst ??? Cancer - Breast Paternal Grandmother Review of Systems General: No fatigue or weight loss Eyes: No vision changes or pain Neuro: No mental status changes or dizziness Cardiovascular: No chest pain or palpitations Pulmonary: No shortness of breath or wheezing. GI: No abdominal pain, constipation or diarrhea Musculoskeletal: No muscle pain or joint pain Skin: No rashes or texture changes Hematologic: No easy bruising or bleeding Rectal: No rectal bleeding or pain Breast: No masses or nipple discharge Physical Exam General: stated age, healthy, alert, in no distress Eyes: Pupils equal round reactive, non icterus Lymph: Cervical, supraclavicular, and axillary nodes normal. Heart: regular rate and rhythm Lungs: clear to auscultation, no wheezes or rales and unlabored breathing Abdomen: soft Extremities: normal strength, tone, and muscle mass, normal ROM of all joints Neuro: Grossly intact Skin: WNL. Breast: Right: normal appearance, no masses or tenderness Left: normal appearance, no masses or tenderness Imaging Results for orders placed during the hospital [...] BOTH breasts was performed by a trained construction plumber and by Dr. Maddi Landeros. BREAST PARENCHYMAL [...] will be scheduled to return to the [facility] for biopsy . > Interpreting Provider: [...] Castelan MD on 01/20/2023 4:47 PM Pathology Final Diagnosis A. Right breast mass, 11 o'clock 8 cm from nipple, core biopsy: ?? -- Infiltrating ductal carcinoma ?? -- Involving cores of tissue ?? -- 3 mm maximum contiguous extent (minimum tumor size) ?? -- Franco grade 1 of 3 ?? -- Moderate tubule formation (score 2) ?? -- Moderate nuclear pleomorphism (score 2) ?? -- 1 mitoses per 10 HPF (score 1) ?? Total score 5 = Grade 1 ?? -- Negative for lymph-vascular invasion ?? -- In situ carcinoma not demonstrated ?? -- Therapeutic biomarkers pending ?? B. Right breast calcifications, medial anterior, core biopsy: ?? -- Ductal carcinoma in situ, solid and cribriform types, intermediate grade, with central necrosis and microcalcifications ?? -- DCIS present in multiple fragments ?? -- Therapeutic biomarkers pending ?? at 1011 Addendum 1 The results of breast prognostic factors by immunohistochemical stains with appropriate controls are as follows: Specimen A (right breast at 11:00): ER: Positive ( 70 %, moderate intensity) CT: Positive ( 90 %, strong intensity) Her-2-brittany: Not over-expressed (score 1+) Ki-67: Low proliferation/favorable ( 3 %) ?? Specimen B (right breast calcifications): ER: Positive ( >95 %, strong intensity) CT: Positive ( 50 %, moderate intensity) Assessment: Right Breast infiltrating ductal carcinoma and DCIS Plan: At this time, I discussed with the patient her diagnosis of breast cancer. She and I reviewed the pathology report and discussed the plan to treat her breast cancer. We first discussed surgical options for treating breast cancer-partial mastectomy or mastectomy. Tohelp make her decision, we discussed the pros and cons of proceeding with either lumpectomy or mastectomy. We discussed that with partial mastectomy, 20% of the time, patients have to be taken back to the operating room for a second procedure to get adequate margins. Lumpectomy is less invasive andhas less down time while mastectomy does require an overnight stay in the hospital. We did discuss that with lumpectomy radiation is almost always required, but lumpectomy with radiation is equal to mastectomy in survival. We did discus that with either surgery, the main risks are with bleeding andinfection. I also discussed if she wishes to have mastectomy she may be referred to plastic surgeryfor reconstruction or I will give her information for a prosthesis. I discussed if she wished to proceed with a lumpectomy. She will need additional stereotactic biopsy to reveal extent of disease. We also discussed that regardless of the procedure, her will need to have a sentinel lymph node biopsy performed at the time of surgery. She does not have any palpable lymph nodes on exam. We then discussed the medical treatment of breast cancer including chemotherapy and endocrine therapy. We briefly discussed it chemotherapy and recommendations will be made by medical oncology once surgical path is final. We also discussed radiation therapy and its role with lumpectomy. We did discuss that occasionally it is needed with patients receiving a mastectomy. We discussed the course of therapy and what the typical side effects are such as fatigue, thickening of the skin, redness of the skin, and cosmetic defect. All of her questions were answered, copy of her pathology was given as well as a breast binder withinformation. Patient states she has already made up her mind and she would like to undergo a right simple mastectomy with sentinel lymph node biopsy as well as a prophylactic left mastectomy. I will get her set up with physical therapy prior to surgery. We will set up a referral for Medical Oncology as well as genetic testing. * Naya Leonard DO - 02/17/2023 12:31 PM CDT Chief Complaint: Right Breast Cancer History and Physical Betina Coy is an 52 year old white female who was referred by Dr Leatha Gupta for a new diagnosis of breast cancer. Patient underwent diagnostic imaging 12/2022 which revealed a suspicious hypoechoic mass in the 11:00 position of the right and an 11.5 cm group of segmental pleomorphic micro-calcifications is seen in superior aspect of the right breast. Patient underwent ultrasound and stereotactically guided right breast biopsies by radiology on 01/06/2023. The mass at the 11 o'clock position revealed an infiltrating ductal carcinoma ER/CT positive, HER2/brittany negative with low KI 67. Thecalcifications revealed DCIS, ER/CT positive. Patient underwent breast MRI which showed multifocal/m ulticentric biopsy-proven malignancy in the RIGHT breast (based upon the documented and estimated extent of disease, the patient does not appear to be a candidate for right breast conservation therapy. If an attempt at breast conservation therapy is desired, then additional biopsies/biopsies of anterior calcifications seen mammographically would be indicated). Age of menarche was 12 Menstrual periods [...] Laterality Date ??? Bunionectomy ??? Hemorrhoidectomy ??? MAMMO STEREOTACTIC RIGHT BIOPSY Right 01/06/2023 MAMMO STEREOTACTIC RIGHT BIOPSY 01/06/2023 [facility] ??? NEEDLE BIOPSY Right 18 2 cyst aspirations ??? OTHER SURGERY breast cyst aspiration ??? BREAST RIGHT BIOPSY Right 01/06/2023 [facility] BREAST RIGHT BIOPSY 01/06/2023 [facility] No Known Allergies Outpatient Medications Marked as Taking for the 02/18/23 encounter (Hospital Encounter) Medication Sig Dispense Refill ??? Lutera 0.1-20 MG-MCG tablet TK 1 T PO QD 3 packet 4 Social History Tobacco Use ??? Smoking status: Never ??? Smokeless tobacco: Never Vaping Use ??? Vaping Use: Never used Substance Use Topics ??? Alcohol use: No ??? Drug use: Never Family History Problem Relation Name Age of Onset ??? Other Mother breast cyst ??? Cancer - Breast Paternal Grandmother Review of Systems General: No fatigue or weight loss Eyes: No vision changes or pain Neuro: No mental status changes or dizziness Cardiovascular: No chest pain or palpitations Pulmonary: No shortness of breath or wheezing. GI: No abdominal pain, constipation or diarrhea Musculoskeletal: No muscle pain or joint pain Skin: No rashes or texture changes Hematologic: No easy bruising or bleeding Rectal: No rectal bleeding or pain Breast: No masses or nipple discharge Physical Exam General: stated age, healthy, alert, in no distress Eyes: Pupils equal round reactive, non icterus Lymph: Cervical, supraclavicular, and axillary nodes normal. Heart: regular rate and rhythm Lungs: clear to auscultation, no wheezes or rales and unlabored breathing Abdomen: soft Extremities: normal strength, tone, and muscle mass, normal ROM of all joints Neuro: Grossly intact Skin: WNL. Breast: Right: normal appearance, no masses or tenderness Left: normal appearance, no masses or tenderness Imaging Results for orders placed during the hospital [...] BOTH breasts was performed by a trained construction plumber and by Dr. Maddi Landeros. BREAST PARENCHYMAL [...] will be scheduled to return to the [facility] for biopsy . > Interpreting Provider: [...] Castelan MD on 01/20/2023 4:47 PM Pathology Final Diagnosis A. Right breast mass, 11 o'clock 8 cm from nipple, core biopsy: ?? -- Infiltrating ductal carcinoma ?? -- Involving cores of tissue ?? -- 3 mm maximum contiguous extent (minimum tumor size) ?? -- [place] grade 1 of 3 ?? -- Moderate tubule formation (score 2) ?? -- Moderate nuclear pleomorphism (score 2) ?? -- 1 mitoses per 10 HPF (score 1) ?? Total score 5 = Grade 1 ?? -- Negative for lymph-vascular invasion ?? -- In situ carcinoma not demonstrated ?? -- Therapeutic biomarkers pending ?? B. Right breast calcifications, medial anterior, core biopsy: ?? -- Ductal carcinoma in situ, solid and cribriform types, intermediate grade, with central necrosis and microcalcifications ?? -- DCIS present in multiple fragments ?? -- Therapeutic biomarkers pending ?? at 1011 Addendum 1 The results of breast prognostic factors by immunohistochemical stains with appropriate controls are as follows: Specimen A (right breast at 11:00): ER: Positive ( 70 %, moderate intensity) CT: Positive ( 90 %, strong intensity) Her-2-brittany: Not over-expressed (score 1+) Ki-67: Low proliferation/favorable ( 3 %) ?? Specimen B (right breast calcifications): ER: Positive ( >95 %, strong intensity) CT: Positive ( 50 %, moderate intensity) Assessment: Right Breast infiltrating ductal carcinoma and DCIS Plan: At this time, I discussed with the patient her diagnosis of breast cancer. She and I reviewed the pathology report and discussed the plan to treat her breast cancer. We first discussed surgical options for treating breast cancer-partial mastectomy or mastectomy. Tohelp make her decision, we discussed the pros and cons of proceeding with either lumpectomy or mastectomy. We discussed that with partial mastectomy, 20% of the time, patients have to be taken back to the operating room for a second procedure to get adequate margins. Lumpectomy is less invasive andhas less down time while mastectomy does require an overnight stay in the hospital. We did discuss that with lumpectomy radiation is almost always required, but lumpectomy with radiation is equal to mastectomy in survival. We did discus that with either surgery, the main risks are with bleeding andinfection. I also discussed if she wishes to have mastectomy she may be referred to plastic surgeryfor reconstruction or I will give her information for a prosthesis. I discussed if she wished to proceed with a lumpectomy. She will need additional stereotactic biopsy to reveal extent of disease. We also discussed that regardless of the procedure, her will need to have a sentinel lymph node biopsy performed at the time of surgery. She does not have any palpable lymph nodes on exam. We then discussed the medical treatment of breast cancer including chemotherapy and endocrine therapy. We briefly discussed it chemotherapy and recommendations will be made by medical oncology once surgical path is final. We also discussed radiation therapy and its role with lumpectomy. We did discuss that occasionally it is needed with patients receiving a mastectomy. We discussed the course of therapy and what the typical side effects are such as fatigue, thickening of the skin, redness of the skin, and cosmetic defect. All of her questions were answered, copy of her pathology was given as well as a breast binder withinformation. Patient states she has already made up her mind and she would like to undergo a right simple mastectomy with sentinel lymph node biopsy as well as a prophylactic left mastectomy. I will get her set up with physical therapy prior to surgery. We will set up a referral for Medical Oncology as well as genetic testing. documented in this encounter OR Notes * Operative - Naya Leonard DO - 02/18/2023 9:14 AM CDT [place] Node Biopsy for Breast Cancer - Right Operation performed with curative intent. Yes Tracer(s) used to identify sentinel nodes in the upfront surgery (non- neoadjuvant) setting (select all that apply). Dye and Radioactive tracer Tracer(s) used to identify sentinel nodes in the neoadjuvant setting (select all that apply). Dye and Radioactive tracer All nodes (colored or non-colored) present at the end of a dye-filled lymphatic channel were removed. Yes All significantly radioactive nodes were removed. Yes All palpably suspicious nodes were removed. Yes Biopsy-proven positive nodes marked with clips prior to chemotherapy were identified and removed. N/A Operative Note Date: 02/18/2023 Preoperative Diagnosis: Right Breast Cancer Operative Diagnosis: Right Breast Cancer Procedure: 1. Right Simple Mastectomy 2. Injection of methylene blue dye to right breast 3. Right sentinel lymph node biopsy 4. Left Prophylactic Mastectomy Surgeon: Naya Leonard DO Fence Erector Supervisor: Lynn CALVIN Type of anesthesia: General Complications: None EBL: 300 cc Drains: CHANI subcutaneous Bilateral flank Brief findings: left breast removed, oozing from flaps noted and controled with bovie and surgicel powder, right breast removed without issues, right sentinel lymph node removed Specimens: 1. Right Breast-stitch in axillary tail 2. Right [place] Lymph Node 3. Left Breast-stitch in axillary tail Description of Procedure: 52 year old female explained risks and benefits of Right simple mastectomy, Right sentinel lymph node biopsy, and Left prophylactic mastectomy. Patient voiced understanding of procedure. Consent was obtained and placed in the chart. Patient underwent radioactive colloid injection. Patient was then transferred to the operating room where she was placed in a supine position. Bilateral sequential compression devices were applied to both lower extremities. A single dose ofAncef 2g was administered intravenously prior to incision. A member of the anesthesia team performed General anesthesia. The patient was then prepped and draped in a sterile fashion with the pre-operative skin marking able to be viewed. Attention was focused on the Left breast-the prophylactic side. A mastectomy incision was then planned and made using the scalpel. The incision was then carried down through the dermis using electrocautery. A superior flap was created up to the level of the clavicle and taken down onto the chest wall. An inferior flap was created down to just below the inframammary ridge and was taken down on therectus abdominis and serratus anterior muscles. Care was taken not to enter the fascia of these twomuscles. A medial flap was created to the sternal border and down to chest wall. A lateral flap wascreated down to the latissimus dorsi. Once all four flaps were created, the breast was removed from the posterior attachments using electrocautery. Care was taken to include the pectoralis major muscle fascia en bloc with the breast. Once it was removed, the breast was marked with a stitch in the axillary tail and was passed off the field. Attention was then turned to the wound. Aggressive hemostasis was obtained with electrocautery. Copious amounts of sterile saline were used to irrigate the wound.Surgicel powder was placed in the wound cavity. When hemostasis was obtained, two 19 maltese CHANI drains were placed in the Left flank. Theywere sewn to the skin using a 3-0 nylon suture. The dermis of the skin was then reapproximated withsimple 3-0 vicryl sutures. The skin was then closed with a running 4-0 monocryl suture. The skin was then cleaned and the incision was covered with a dermabond dressing. Attention was then focused on the Right breast-the cancer side.The right breast then had five milliliters of dilute methylene blue solution injected in a retroareolar fashion. Five minutes of breast massage was performed. A mastectomy incision was then planned and made using the scalpel. The incision was then carried down through the dermis using electrocautery. A superior flap was created up to the level of the clavicle and taken down onto the chest wall. An inferior flap was created down to just below the inframammary ridge and was taken down on the rectus abdominis and serratus anterior muscles. Care was taken not to enter the fascia of these two muscles. A medial flap was created to the sternal border and down to chest wall. A lateral flap was created down to the latissimus dorsi. Once all four flaps were created, the breast was removed from the posterior attachments using electrocautery. Care was taken to include the pectoralis major muscle fascia en bloc with the breast. Once itwas removed, the breast was marked with a stitch in the axillary tail and was passed off the field. We next focused on the Right axilla. As a mastectomy was performed, the clavipectoral fascia was already opened. I focused on the tissue in the cavity under the pectoralis muscle. The probe was used to locate the sentinel lymph nodes. The blue lymphatic was followed to the blue sentinel lymph nodes. The probe was once again used to confirm the sentinel lymph nodes. These were then excised using electrocautery. There was only background enhancement in the axilla when checked with the probe, there were no further blue lymph nodes, and no palpable adenopathy appreciated. Attention was then refocused on the wound. Aggressive hemostasis was then obtained using electrocautery. Copious amounts of sterile saline were used to irrigate the wound. Surgicel powder was placed in the wound cavity. When hemostasis was obtained, two 19 maltese CHANI drains were placed in the Right flank. They were sewn to the skin using a 3-0 nylon suture. The dermis of the skin was then reapproximated with simple 3-0 vicryl sutures. The skin was then closed with a running 4-0 monocryl suture. The skin was then cleaned and the incision was covered with a dermabond dressing. The patient was then transferred to the stretcher and a surgical bra was placed on the patient with sterile dressings p laced over the incision and around the drain. At the end of the procedure all counts were reported to be correct x2. No immediate complications. Patient was then transferred to recovery. documented in this encounter Plan of Treatment Upcoming Encounters Date Type Department Care Team (Late st Contact Info) Description 07/19/2024 9:45 AM DISBURSING OFFICER Office Visit [facility] - LIBRARY SERVICES ASSISTANT [address] [place] [id number] Leatha Gupta MD [address] [place], [place] [id number] 12/11/2024 9:00 AM CDT Office Visit [facility] - Surgery [address] [facility], [address] [place] [address] [place] [address] [facility] [address] [place] [address] 12/11/2024 10:40 AM CDT Office Visit [facility] [address] [facility] [address] [place] [address] [place] [id number] [facility] [address] [place] [address] documented as of this encounter Procedures Procedure Name Priority Date/Time Associated Diagnosis Comments PATHOLOGY TISSUE EXAM (STL) Routine 02/18/2023 9:17 AM CDT Diagnosis unknown CT MAST SMPL COMPL 02/18/2023 8: 36 AM CDT Special Needs NUC MED INJ 8:00 HCG URINE QUALITATIVE STAT 02/18/2023 6:36 AM CDT Preoperative examination documented in this encounter Results * PATHOLOGY TISSUE EXAM (STL) (02/18/2023 9:17 AM CDT) Case Report Surgical Pathology Report ? Case: [id number] ? Authorizing Provider: ??Naya Leonard DO ? Collected: ? 02/18/2023 09:17 AM ? Ordering Location: ? [facility] ?Received: ?02/18/2023 11:12 AM ? Pathologist: ? Sarah Blount MD ? Specimens: ?? A) - Breast, left breast stitch chanda axillary tail ? B) - Breast, right breast stitch chanda axillary tail ? C) - [place] Lymph Node, right breast sentinel lymph node ? 03/09/2023 5:28 PM CDT [facility] Final Diagnosis A. Left breast, prophylactic mastectomy: [...] biopsy: -- Negative for metastatic carcinoma (0/1) 03/09/2023 5:28 PM CDT [facility] Addendum 2 See attached report. 03/09/2023 5:28 PM CDT [facility] Addendum electronically signed by Mallory Mina MD on 03/09/2023 at 5:28 PM Addendum 1 A request for Oncotype DX was received 03/01/[address] Lizarraga. The pathology reports, slides, and blocks from this case were retrieved from the archives and were reviewed by Dr. Blount who selected a block with an adequate amount of tissue to perform the ordered test. The results of the molecular test will be issued in a separate report. 03/09/2023 5:28 PM [facility] Addendum electronically signed by Sarah Blount MD on 03/01/2023 at 1:12 PM Clinical History Clinical history: Right breast cancer Procedure/operative findings: Right mastectomy and right sentinel lymph node biopsy, left prophylactic mastectomy 03/09/2023 5:28 PM [facility] Frozen Section Pathologist(s ) Kartik Lopez, Ph.D. 03/09/2023 5:28 PM [facility] Gross Description Received in formalin in container A labeled Betina [employer], left breast stitch axillary tail, is a 1162 gram 28 x 24 x 10 cm left prophylactic mastectomy specimen with attached 15 x 12 cm white-hurtado skin ellipse. There are no gross scars or lesions noted on the skin. The unremarkable everted nipple measures 1.3 cm. There is a stitch designating the axillary tail. The specimen is inked as follows: Anterior-superior - blue, anterior-inferior - green, posterior - black, and lateral - yellow. Sections show a dense yellow-hurtado knotty fibrous tissue. There are a few smooth-walled cysts scattered throughout the upper outer quadrant ranging from 0.1 cm to 0.5 cm. There are no gross masses or lesions. There are no gross lymph nodes. [employer] sections are submitted as follows: A1 - Nipple A2 and A3 - Upper outer quadrant including scattered smooth-walled cysts A4 and A5 - Lower outer quadrant A6 and A7 - Lower inner quadrant A8 and A9 - Upper inner quadrant A10 - Multiple possible lymph nodes. The specimen was collected at 9:17 a.m. and placed in fixative at 11:05 a.m. on 02/18/23. Received in container B in formalin labeled Betina Sharpmack, right breast stitch axillary tail, is a 1054 gram, 27 x 23 x 6 cm right simple mastectomy specimen with attached 13 x 9 cm white-hurtado skin ellipse. There are no gross scars or lesions noted on the skin. The unremarkable everted nipple measures 1.5 cm. There is a stitch designating the axillary tail. The specimen is inked as follows: Anterior-superior - blue, anterior-inferior - green, lateral - yellow, and posterior - black. Sections show a 1.5 x 1.4 x 0.3 cm firm white-hurtado area of scarring containing a round metallic clip at approximately the 11 o'clock position. It is present 2 cm from the black-inked posterior margin, 4 cm from the blue-inked superior-anterior margin, 10 cm from the green-inked inferior-anterior margin and 9 cm from the nipple. There is a 1.5 x 1 cm hemorrhagic biopsy site containing a cylindrical metallic clip at approximately the 9 o'clock position. It is present 3.2 cm from the black-inked posterior margin, 4 cm from the blue-inked superior-anterior margin, 7 cm from the green-inked inferior-anterior margin, and 10 cm from the nipple. The 9 o'clock biopsy site is present approximately 4 cm from the 11 o'clock biopsy site. The surrounding breast tissue shows minimal knotty fibrous tissue and lobular adipose tissue with no additional biopsy sites. [employer] sections are submitted as follows: B1 - Nipple B2 - Skin and black-inked deep margin closest to 11 o'clock biopsy site B3 and B4 - Entire 11 o'clock biopsy scar containing round metallic clip B5 - Anterior-superior and anterior- inferior margins closest to 11 o'clock biopsy site B6-B9 - Breast tissue adjacent to 11 o'clock biopsy site B10 and B11 - 9 o'clock biopsy site containing cylindrical metallic clip B12 - Skin and black-inked deep margin closest to 9 o'clock biopsy site B13-B15 - Breast tissue adjacent to 9 o'clock biopsy site B16 - Gap or space at junction of 11 o'clock biopsy and 9 o'clock biopsy site B17 - Upper inner quadrant B18 - Lower inner quadrant B19 - Lower outer quadrant B20 - Upper outer quadrant B21 - Anterior-superior and anterior-inferior margins closest to 9 o'clock biopsy site B22 - Multiple possible lymph nodes. The specimen was collected at 10:51 a.m. and placed in fixative at 11:05 a.m. on 02/18/23. Received in container C in formalin labeled Betina Sharpmack, right breast sentinel lymph node, is a 1.5 x 1 x 0.2 cm blue-stained lymph node. The lymph node is trisected and entirely submitted in cassette C1. The specimen was collected and placed in fixative at 10:54 a.m. on 02/18/23. / 03/09/2023 5:28 PM [facility] Microscopic Description A. Sections of the left prophylactic mastectomy reveal low-grade lobular carcinoma in situ. A p63 immunostain shows myoepithelial cells in the lobular carcinoma in situ. An E cadherin immunostain is negative in the lobular carcinoma in situ. The breast tissue also shows fibrocystic changes and biopsy site changes. B. Sections of the right breast mastectomy reveal is an invasive ductal carcinoma characterized by stromal desmoplasia, most solid proliferation, moderate nuclear pleomorphism and infrequent mitoses. There is also low-grade lobular carcinoma in situ. There is cribriform and solid types ductal carcinoma in situ with central necrosis and microcalcifications. The resection margins are free of tumor. There is no evidence of angiolymphatic invasion or perineural invasion. There are biopsy site changes noted. The benign breast tissue away from the tumor shows fibrocystic changes. A P63 immunostain performed on B6 is show the presence of myoepithelial cells surrounding the in situ carcinoma. C. Sections of the right axillary sentinel lymph node biopsy reveal a benign lymph node negative for metastatic carcinoma. A pankeratin immunostain is negative for malignant epithelial cells. 03/09/2023 5:28 PM [facility] Disclaimer All histochemical and/or immunohistochemical results are interpreted with controls that demonstrate appropriate staining reactions before reporting results. Note on use of immunocytochemistry reagents: This test was developed and its performance characteristic determined by [facility], Department of Laboratory Medicine. It [...] tissues. Results should be interpreted with caution. 03/09/2023 5:28 PM [facility] Synoptic Report INVASIVE CARCINOMA OF THE BREAST: Resection INVASIVE CARCINOMA OF THE BREAST: COMPLETE EXCISION - B, C 8th Edition - Protocol posted: 09/30/2022 SPECIMEN ?? Procedure: ?Total mastectomy ?? Specimen Laterality: ?Right TUMOR ?? Histologic Type: ?Invasive carcinoma of no special type (ductal) ?? Histologic Grade (Franco Histologic Score): ? Glandular (Acinar) / Tubular Differentiation: ?Score 3 ? Nuclear Pleomorphism: ?Score 2 ? Mitotic Rate: ?Score 1 ? Overall Grade: ?Grade 2 (scores of 6 or 7) ?? Tumor Size: ?Greatest dimension of largest invasive focus (Millimeters): 15 mm ?? Ductal Carcinoma In Situ (DCIS): ?Present ?? Lymphatic and / or Vascular Invasion: ?Not identified ?? Treatment Effect in the Breast: ?No known presurgical therapy MARGINS ?? Margin Status for Invasive Carcinoma: ?All margins negative for invasive carcinoma ? Distance from Invasive Carcinoma to Closest Margin: ?20 mm ? Closest Margin(s) to Invasive Carcinoma: ?Posterior ?? Margin Status for DCIS: ?All margins negative for DCIS ? Distance from DCIS to Closest Margin: ?20 mm ? Closest Margin(s) to DCIS: ?Posterior REGIONAL LYMPH NODES ?? Regional Lymph Node Status: ? : ?All regional lymph nodes negative for tumor ? Total Number of Lymph Nodes Examined (sentinel and non-sentinel): ?1 ? Number of [place] Nodes Examined: ?1 pTNM CLASSIFICATION (AJCC 8th Edition) ?? Reporting of pT, pN, and (when applicable) pM categories is based on information available to the pathologist at the time the report is issued. As per the AJCC (Chapter 1, 8th Ed.) it is the managing physician? s responsibility to establish the final pathologic stage based upon all pertinent information, including but potentially not limited to this pathology report. ?? pT Category: ?pT1c ?? pN Category: ?pN0 ?? N Suffix: ?(sn) 03/09/2023 5:28 PM CDT [facility] Embedded Images 03/09/2023 5:28 PM CDT [facility] Pathology/Cytology ENTIRE BREAST / Unknown 02/18/2023 9:17 AM CDT 02/18/2023 11:12 AM CDT Miscellaneous samples (specimen) ENTIRE BREAST / Unknown 02/18/2023 10:51 AM CDT 02/18/2023 11:12 AM CDT Miscellaneous samples (specimen) SPECIMEN FROM SENTINEL LYMPH NODE / Unknown 02/18/2023 10:54 AM CDT 02/18/2023 11:12 AM CDT Naya Leonard DO LAB - PATHOLOGY/CYTO LOGY ORDERABLES Performing Organization Address [facility] de Phone Number [facility] [address] [place] [address] * HCG URINE QUALITATIVE (02/18/2023 6:36 AM CDT) hCG Qualitative Urine Negative Negative 02/18/2023 6:50 AM CDT [facility] Urine URINE / Unknown Collection / Unknown 02/18/2023 6:36 AM CDT 02/18/2023 6:40 AM CDT Kaila Jamison DO LAB - URINALYSIS ORD ERABLES Performing Organization Address [facility] de Phone Number [facility] [address] [place] [address] documented in this encounter Visit Diagnoses Diagnosis Invasive ductal carcinoma of breast, female, right (HCC)- Primary Preoperative examination Preoperative examination, unspecified Diagnosis unknown Other unknown and unspecified cause of morbidity or mortality documented in this encounter Administered Medications Inactive Administered Medications - up to 3 most recent administrations Medication Order MAR Action Action Date Dose Rate Site 0.9% NaCl injection 1-10 mL 1-10 mL, Intracatheter, PRN, Other, peripheral line flush, Starting on Gema 02/18/23 at 0616, Until Gema 02/18/23 at 1608, Flush peripheral IV catheter with 1-10 mL of normal saline before and after medications and prn to clear blood from the line or to verify patency., Pre-op 0.9% NaCl injection 3 mL 3 mL, Intracatheter, EVERY 8 HOURS, First dose on Gema 02/18/23 at 0630, Until Discontinued, Flush peripheral IV catheter with 3 mL of normal saline every 8 hours., Pre-op acetaminophen (Tylenol) tablet 1,000 mg 1,000 mg, Oral, PRE-OP ONCE, 1 dose, On Gema 02/18/23 at 0630, For patients >50 Kg. Not for bariatric or cardiac patients. Patient preference for lesser PRN pain meds may be honored when the patient requests a less strong medication, a lower dose, or a less intrusive route of administration when the lesser drug, dose and route have been ordered for the patient. This patient request must be documented in the MAR., Pre-op $ Given 02/18/2023 6:43 AM CDT 1,000 mg albuterol-ipratropium (Duo-Neb) nebulizer solution 3 mL 3 mL, Inhalation, EVERY 4 HOURS PRN, Shortness of Breath, Wheezing, Starting on Gema 02/18/23 at 1207, Until Gema 8 at 1608, For wheezing. Notify anesthesia immediately., PACU ceFAZolin (Ancef) 2 g in 0.9% NaCl IV 50 mL IVPB 2 g, at 100 mL/hr, Intravenous, PRE-OP MULTIPLE, Starting on Gema 02/18/23 at 0616, Until Gema 02/18/23 at 1608, Administer 30 minutes prior to surgical incision., Indication for anti-infective therapy: Surgical prophylaxis, Pre-op $ New Bag/Syringe 02/18/2023 8:44 AM CDT 2 g diphenhydrAMINE (Benadryl) injection 25 mg 25 mg, Intravenous, ONCE PRN, Nausea/Vomiting, 1 dose, Starting on Gema 8 at 1207, Until Gema 8 at 1608, Third choice, use if first and second choice was ineffective., PACU fentaNYL (PF) (Sublimaze) injection 25 mcg 25 mcg, Intravenous, EVERY 10 MIN PRN, Mild Pain, 4 doses, Starting on Gema 02/18/23 at 1207, Until Gema 02/18/23 at 1237, Maximum total of 4 doses. If patient [...] documented in the MAR., PACU $ Given 02/18/2023 12:37 PM CDT 25 mcg $ Given 02/18/2023 12:25 PM CDT 25 mcg $ Given 02/18/2023 12:15 PM CDT 25 mcg hydrALAZINE (Apresoline) injection 5 mg 5 mg, Intravenous, POST-OP MULTIPLE, Starting on Gema 02/18/23 at 1207, Until Gema 8 at 1608, IV given slowly over 1 minute, up to 20 mg. Repeat 5 mg IV dose every 10-15 minutes for sustained hypertension SBP greater than 180, DBP greater than 100., PACU HYDROcodone-acetaminophen (Allison) 5-325 MG tablet 1 tablet 1 tablet, Oral, ONCE, 1 dose, On Gema 02/18/23 at 1330, Patient preference for lesser PRN pain meds may be honored when the patient requests a less strong medication, a lower dose, or a less intrusive route of administration when the lesser drug, dose and route have been ordered for the patient. This patient request must be documented in the MAR. $ Given 02/18/2023 1:19 PM CDT 1 tablet HYDROmorphone (Dilaudid) injection 0.5 mg 0.5 mg, Intravenous, EVERY 10 MIN PRN, Severe Pain, 4 doses, Starting on Gema 02/18/23 at 1207, Until Gema 8 at 1608, Maximum total of 4 doses If patient [...] documented in the MAR., PACU $ Given 02/18/2023 12:42 PM CDT 0.5 mg lactated ringers infusion at 20 mL/hr, Intravenous, PRE-OP CONTINUOUS, Starting on Gema 8 at 0630, Until Gema 02/18/23 at 1608, Please place order for second bag of LR for all robotic surgeries, and all carotid endarterectomies., Pre-op Restarted 02/18/2023 11:46 AM CDT $ New Bag/Syringe 02/18/2023 8:44 AM CDT 20 mL/ hr $ New Bag/Syringe 02/18/2023 6:43 AM CDT 20 mL/ hr lactated ringers infusion at 125 mL/hr, Intravenous, CONTINUOUS, Starting on Gema 8 at 1245, Until Gema 02/18/23 at 1608, PACU lidocaine (Lmx 4) 4 % cream Topical, ONCE, 1 dose, On Gema 02/18/23 at 0700, Apply to right nipple $ Given 02/18/2023 6:43 AM CDT lidocaine PF (Xylocaine MPF) 1 % injection 0.2 mL 0.2 mL, Infiltration, PRE-OP ONCE, 1 dose, On Gema 02/18/23 at 0630, May be used (0.5 ml locally to anesthetize prior to insertion). For patients not allergic to local anesthetics., Pre-op $ Given 02/18/2023 6:44 AM CDT 0.2 mL morphine injection 2 mg 2 mg, Intravenous, EVERY 15 MIN PRN, Moderate Pain, 5 doses, Starting on Gema 02/18/23 at 1207, Until Gema 02/18/23 at 1608, Maximum total of 5 doses. If patient reaches max total dose, [...] 0.04 mg, Intravenous, POST-OP MULTIPLE, Starting on Gema 02/18/23 at 1207, Until Gema 02/18/23 at 1608, If respiration rate is less than 7 per minute administer IV every 1 minute until respirations are greater than 12 per minute. Notify anesthesia immediately., PACU ondansetron (Zofran) injection 4 mg 4 mg, Intravenous, ONCE PRN, Nausea/Vomiting, 1 dose, Starting on Gema 02/18/23 at 1207, Until Gema 02/18/23 at 1608, First choice, PACU prochlorperazine (Compazine) injection 10 mg 10 mg, Intravenous, ONCE PRN, Nausea/Vomiting, 1 dose, Starting on Gema 02/18/23 at 1207, Until Gema 8 at 1608, Second choice, use if first choice was ineffective., PACU documented in this encounter Active and Recently Administered Medications Times are shown in CDT. Scheduled Medication Order 02/16/2023 02/17/2023 02/18/2023 0.9% NaCl injection 3 mL(Linked Group 1) 3 mL, Intracatheter, EVERY 8 HOURS, First dose on Gema 02/18/23 at 0630, Until Discontinued, Flush peripheral IV catheter with 3 mL of normal saline every 8 hours., Pre-op 0643 (Not Administer ed - Provider: Cris Guevara RN - Reason: See Comments - Comment: new iv)1400 (Due) acetaminophen (Tylenol) tablet 1,000 mg (COMPLETED) 1,000 mg, Oral, PRE-OP ONCE, 1 dose, On Gema 02/18/23 at 0630, For patients >50 Kg. Not for bariatric or cardiac patients. Patient preference for lesser PRN pain meds may be honored when the patient requests a less strong medication, a lower dose, or a less intrusive route of administration when the lesser drug, dose and route have been ordered for the patient. This patient request must be documented in the MAR., Pre-op 0643 ($ Given - Prov ider: Cris Guevara RN) ceFAZolin (Ancef) 2 g in 0.9% NaCl IV 50 mL IVPB 2 g, at 100 mL/hr, Intravenous, PRE-OP MULTIPLE, Starting on Gema 02/18/23 at 0616, Until Gema 02/18/23 at 1608, Administer 30 minutes prior to surgical incision., Indication for anti-infective therapy: Surgical prophylaxis, Pre-op 0844 ($ New Bag/Syri nge - Provider: Janell Ghotra APRN-MARJAN) hydrALAZINE (Apresoline) injection 5 mg 5 mg, Intravenous, POST-OP MULTIPLE, Starting on Gema 02/18/23 at 1207, Until Gema 02/18/23 at 1608, IV given slowly over 1 minute, up to 20 mg. Repeat 5 mg IV dose every 10-15 minutes for sustained hypertension SBP greater than 180, DBP greater than 100., PACU HYDROcodone-acetaminophen (Allison) 5-325 MG tablet 1 tablet (COMPLETED) 1 tablet, Oral, ONCE, 1 dose, On Gema 02/18/23 at 1330, Patient preference for lesser PRN pain meds may be honored when the patient requests a less strong medication, a lower dose, or a less intrusive route of administration when the lesser drug, dose and route have been ordered for the patient. This patient request must be documented in the MAR. 1319 ($ Given - Prov ider: Ann Sosa RN) insulin regular human (HumuLIN R; NovoLIN R) 100 UNIT/ML injection 0-6 Units 0-6 Units, Intravenous, ONCE, 1 dose, On Gema 02/18/23 at 1230, For all diabetic patients POC Glucose Regular Insulin Dose 0 - 180 mg/dL = 0 units 181 - 220 mg/dL = 3 units 221 - 260 mg/dL = 4 units 261 - 300 mg/dL = 5 units Above 300 mg/dL = 6 units . WASTE DISPOSAL INSTRUCTIONS: Black Bin Disposal required., PACU 1230 (Due) lidocaine (Lmx 4) 4 % cream (COMPLETED) Topical, ONCE, 1 dose, On Gema 02/18/23 at 0700, Apply to right nipple 0643 ($ Given - Prov ider: Cris Guevara RN - Comment: right nipple) lidocaine PF (Xylocaine MPF) 1 % injection 0.2 mL (COMPLETED) 0.2 mL, Infiltration, PRE-OP ONCE, 1 dose, On Gema 02/18/23 at 0630, May be used (0.5 ml locally to anesthetize prior to insertion). For patients not allergic to local anesthetics., Pre-op 0644 ($ Given - Prov ider: Cris Guevara RN) naloxone (Narcan) injection 0.04 mg 0.04 mg, Intravenous, POST-OP MULTIPLE, Starting on Gema 8 at 1207, Until Gema 8 at 1608, If respiration rate is less than 7 per minute administer IV every 1 minute until respirations are greater than 12 per minute. Notify anesthesia immediately., PACU Continuous Medication Order 02/16/2023 02/17/2023 02/18/2023 lactated ringers infusion at 20 mL/hr, Intravenous, PRE-OP CONTINUOUS, Starting on Gema 02/18/23 at 0630, Until Gema 8 at 1608, Please place order for second bag of LR for all robotic surgeries, and all carotid endarterectomies., Pre-op 0643 ($ New Bag/Syri nge - Provider: Cris Guevara RN)0844 ($ New Bag/Syringe - Provider: JULIO CESAR Crews)1145 (Paused - Provider: JULIO CESAR Crews - Comment: Switch to gravity)1146 (Restarted - Provider: JULIO CESAR Crews) lactated ringers infusion at 125 mL/hr, Intravenous, CONTINUOUS, Starting on Gema 02/18/23 at 1245, Until Gema 8 at 1608, PACU 1245 (Due) PRN Medication Order 02/16/2023 02/17/2023 02/18/2023 0.9% NaCl injection 1-10 mL(Linked Group 1) 1-10 mL, Intracatheter, PRN, Other, peripheral line flush, Starting on Gema 02/18/23 at 0616, Until Gema 8 at 1608, Flush peripheral IV catheter with 1-10 mL of normal saline before and after medications and prn to clear blood from the line or to verify patency., Pre-op 0.9% nacl irrigation solution (COMPLETED) CONTINUOUS PRN, Starting on Gema 02/18/23 at 0941, Until Gema 02/18/23 at 1143, Intra-op 0941 ($ New Bag/Syri nge - Provider: Naya Leonard DO - Comment: prn)1040 ($ New Bag/Syringe - Provider: Naya Leonard DO - Comment: prn) albuterol-ipratropium (Duo-Neb) nebulizer solution 3 mL 3 mL, Inhalation, EVERY 4 HOURS PRN, Shortness of Breath, Wheezing, Starting on Gema 8 at 1207, Until Gema 8 at 1608, For wheezing. Notify anesthesia immediately., PACU BUPivacaine 0.25% - EPINEPHrine 1:200,000 (PF) injection (CANCELED) PRN, Starting on Gema 8 at 1056, Until Gema 8 at 1143, Intra-op 1056 ($ Given - Prov ider: Naya Leonard DO) BUPivacaine liposome (Exparel) 1.3 % injection (CANCELED) PRN, Starting on Gema 8 at 1056, Until Gema 8 at 1143, Intra-op 1056 ($ Given - Prov ider: Naya Leonard DO) diphenhydrAMINE (Benadryl) injection 25 mg 25 mg, Intravenous, ONCE PRN, Nausea/Vomiting, 1 dose, Starting on Gema 8 at 1207, Until Gema 8 at 1608, Third choice, use if first and second choice was ineffective., PACU fentaNYL (PF) (Sublimaze) injection 25 mcg (COMPLETED) 25 mcg, Intravenous, EVERY 10 MIN PRN, Mild Pain, 4 doses, Starting on Gema 8 at 1207, Until Gema 8 at 1237, Maximum total of 4 doses. If patient [...] must be documented in the MAR., PACU 1205 ($ Given - Prov ider: Chandana Marquez RN)1215 ($ Given - Provider: Chandana Maruqez RN)1225 ($ Given - Provider: Chandana Marquez RN)1237 ($ Given - Provider: Chandana Marquez RN) HYDROmorphone (Dilaudid) injection 0.5 mg 0.5 mg, Intravenous, EVERY 10 MIN PRN, Severe Pain, 4 doses, Starting on Gema 8 at 1207, Until Gema 8 at 1608, Maximum total of 4 doses If patient [...] must be documented in the MAR., PACU 1242 ($ Given - Prov ider: Chandana Marquez RN) methylene blue injection (CANCELED) PRN, Starting on Gema 02/18/23 at 0910, Until Gema 02/18/23 at 1143, Intra-op 0910 ($ Given - Prov ider: Naya Leonard DO) morphine injection 2 mg 2 mg, Intravenous, EVERY 15 MIN PRN, Moderate Pain, 5 doses, Starting on Gema 8 at 1207, Until Gema 8 at 1608, Maximum total of 5 doses. If patient reaches max total dose, [...] must be documented in the MAR., PACU ondansetron (Zofran) injection 4 mg 4 mg, Intravenous, ONCE PRN, Nausea/Vomiting, 1 dose, Starting on Gema 8 at 1207, Until Gema 8 at 1608, First choice, PACU Oxidized Cellulose PADS (CANCELED) PRN, Starting on Gema 02/18/23 at 0941, Until Gema 02/18/23 at 1143, Intra-op 0941 ($ Given - Prov ider: Naya Leonard DO - Comment: surgicel powder - left breast)1007 ($ Given - Provider: Naya Leonard DO - Comment: right chest - surgicel powder) prochlorperazine (Compazine) injection 10 mg 10 mg, Intravenous, ONCE PRN, Nausea/Vomiting, 1 dose, Starting on Gema 02/18/23 at 1207, Until Gema 02/18/23 at 1608, Second choice, use if first choice was ineffective., PACU Linked Groups Order Group 1: SALINE LOCK, INSERT AND MAINTAIN (CANCELED) Routine, CONTINUOUS, Starting on Gema 02/18/23 at 0630, Until Specified, Pre-op, New collection And 0.9% NaCl injection 3 mLJump to med 3 mL, Intracatheter, EVERY 8 HOURS, First dose on Gema 02/18/23 at 0630, Until Discontinued, Flush peripheral IV catheter with 3 mL of normal saline every 8 hours., Pre-op And 0.9% NaCl injection 1-10 mLJump to med 1-10 mL, Intracatheter, PRN, Other, peripheral line flush, Starting on Gema 02/18/23 at 0616, Until Gema 02/18/23 at 1608, Flush peripheral IV catheter with 1-10 mL of normal saline before and after medications and prn to clear blood from the line or to verify patency., Pre-op documented in this encounter Care Teams Senior Loss Control Specialist Relationship Specialty Start Date End Date Celina Sifuentes MD [address] [place] [phone] PCP - General Family Medicine 02/16/23 11/14/23 [place] [address] [address] Surgical Oncologist Surgical Oncology 02/15/23 [place] [address] [address] [place] [address] [place] [phone] Walking Dragline Operator/Oncologist Hematology and Oncology 02/16/23 documented as of this encounter
--- OUTSIDE RECORDS SUMMARY | 2024-07-02 04:42 | XMS_ITS | Encounter Summary ---
Author Organization [facility] Address [address] [place] [address] Care Team Providers Care Civil Technician Name Role Phone Unavailable Primary Care Provider Unavailabl e Reason for Visit * Reason Comments Establish Care Pt here to establish care/Breast cancer(surgery in )/colon screening Encounter Details Date Type Department Care Team (Late st Contact Info) Description 02/05/2023 9:00 AM CDT Office Visit [facility] - Family Medicine [address] [place] [address] Celina Sifuentes MD [address] [place] [address] Hypercholesteremia (Primary Dx); Establishing care with new doctor, encounter for; MVP (mitral valve prolapse); Screening for thyroid disorder; Screening cholesterol level; Diabetes mellitus screening; Screening for colon cancer; Need for hepatitis C screening test; Screening for HIV without presence of risk factors; Need for vaccination; Leukocytosis, unspecified type; Need for hepatitis B screening test; Stiffness of hand joint, unspecified laterality Social History Tobacco Use Types Packs/Day [...] Reading Time Taken Comments Blood Pressure 123/73 02/05/2023 8:50 AM CDT Pulse 67 02/05/2023 8:50 AM CDT Temperature - - Respiratory Rate - - Oxygen Saturation - - Inhaled Oxygen Concentration - - Weight 87.5 kg (192 lb 12.8 oz) 02/05/2023 8:50 AM CDT Height 162.6 cm (5' 4 ) 02/05/2023 8:50 AM CDT Body Mass Index 33.09 02/05/2023 8:50 AM CDT documented in this encounter Progress Notes * Celina Sifuentes MD - 02/05/2023 8:50 AM CDT SUBJECTIVE: Betina Coy is a 52 year old female with significant history of , hyperlipidemia,Right Breast infiltrating ductal carcinoma and DCIS who presents for Chief Complaint Patient presents with ??? Establish Care Pt here to establish care/Breast cancer(surgery in )/colon screening Recently diagnosed with right breat cancer , schedule for surgery in February . 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 Increased with time . Reports stiffness and swelling in the morning , it is more prominent in the thumb . Denies typing Family, Social, and Surgical History Works for [employer] district Past Surgical History: Procedure Laterality Date ??? Bunionectomy ??? Hemorrhoidectomy ??? MAMMO STEREOTACTIC RIGHT BIOPSY Right 01/06/2023 [facility] STEREOTACTIC RIGHT BIOPSY 01/06/2023 [facility] NEO ??? NEEDLE BIOPSY Right 10'18 2 cyst aspirations ??? OTHER SURGERY breast cyst aspiration ??? US BREAST RIGHT BIOPSY Right 01/06/2023 US BREAST RIGHT BIOPSY 01/06/2023 [facility] US Social History Tobacco Use ??? Smoking status: Never ??? Smokeless tobacco: Never Vaping Use ??? Vaping Use: Never used Substance Use Topics ??? Alcohol use: No ??? Drug use: No Family History Problem Relation Name Age of Onset ??? Other Mother breast cyst ??? Cancer - Breast Paternal Grandmother No Known Allergies History obtained from the patient. Constitutional: No fever, fatigue. Behavioral/Emotional observations: Euthymic .Appropriate for age HEENT: No vision/hearing changes, nasal symptom. Neck: No pain, stiffness, swollen lymph nodes. Cardiovascular: No chest pain/pressure, dyspnea on exertion, palpitations, edema. Respiratory: No shortness of breath or wheezing. Gastrointestinal: No pain, nausea/vomitting, diarrhea/constipation, bloody or dark/tarry stool. Genito-Urinary: No pain, retention, nocturia, or hematuria. Musculoskeletal: No pain ,swelling , redness OBJECTIVE: BP 123/73 Pulse 67 Ht 1.626 m (5' 4 ) Wt 87.5 kg (192 lb 12.8 oz) Body mass index is 33.09 kg/m??. Wt Readings from Last 3 Encounters: 02/05/23 87.5 kg (192 lb 12.8 oz) 01/25/23 93 kg (205 lb) 05/26/22 93 kg (205 lb) BP Readings from Last 4 Encounters: 02/05/23 123/73 05/26/22 123/73 10/07/21 120/80 05/22/21 113/68 General Appearance: Alert, cooperative, in no acute distress. HENT: Head: Normocephalic. Right Ear: Hearing normal, tympanic membrane, external ear and ear canal normal. Left Ear: Hearing normal , tympanic membrane, external ear and ear canal normal. Nose: Nose normal. Mouth/Throat: Uvula is midline, oropharynx is clear and moist and mucous membranes are normal. Eyes: Conjunctivae and EOM are normal. Pupils are equal, round, and reactive to light. Neck: Normal range of motion. Neck supple. Abdomin :Soft , non tender. Heart: Regular rate and rhythm. Normal S1 and S2. No murmur noted. No rubs or gallops noted. Lungs: Clear to auscultation. Symmetric expansion of chest. No wheezes, rales or rhonchi heard. Extremities: Good turgor. No pretibial or ankle edema. Neurologic: Aa0x3 , Sensation intact . Motor strength 5/5 in all extremities . Psych: Pt is well groomed. Speech is fluent. Pt answers questions appropriately. Affect full. Bilateral hand examination ; Inspections : Negative erythema , deformity , overlyging skin changes , nail changes , atrophy, scars . Hand psotion of functon : with in normal . Palpation : no tenderness to palpation Capillary refill < 2 seconcds 2 point discrimination intact . Sensation intact to touch Finger abduction against resistance : within normal Oppose thumb to index finger against resistance: Within normal Wrist extension (dorsiflexion) against resistance Sensation intact to touch . ROM : Thumb Abduction : Finger abduntion and adduction : Specialist test : -ve grind test -Ve Abena Test -ve flick sign -ve tinnel sign Depression: PHQ-2:PHQ2 TOTAL SCORE: 0 PHQ-9: ASSESSMENT AND PLAN: ICD-10-CM 1. Hypercholesteremia E78.00 Moderate exercise 150 minutes /week Low carb diet 2. Establishing care with new doctor, encounter for Z76.89 Chart reviewed 3. MVP (mitral valve prolapse) I34.1 Work up was negative in the past Will remove diagnosed 4. Screening for thyroid disorder Z13.29 5. Screening cholesterol level Z13.220 LIPID PROFILE 6. Diabetes mellitus screening Z13.1 HEMOGLOBIN A1C W EAG 7. Screening for colon cancer Z12.11 AMB REFERRAL TO GASTROENTEROLOGY CANCELED: AMB REFERRAL TO GASTROENTEROLOGY 8. Need for hepatitis C screening test Z11.59 HEPATITIS C ANTIBODY 9. Screening for HIV without presence of risk factors Z11.4 HIV-1 HIV-2 ANTIBODY + HIV P24 AG PANEL 10. Need for vaccination Z23 Counseling given 11. Leukocytosis, unspecified type D72.829 CBC WITH DIFFERENTIAL 12. Need for hepatitis B screening test Z11.59 HEPATITIS B SURFACE ANTIBODY HEPATITIS B SURFACE ANTIGEN W RFLX CONFIRMATION HEPATITIS B CORE ANTIBODY IGM 13. Stiffness of hand joint, unspecified laterality No results found for this or any previous visit. M25.649 XR HAND BILAT 2VW Hand strengthening exercises , If symptoms do not improve will do autoimmune work up Orders Placed This Encounter ??? XR HAND BILAT 2VW ??? CBC WITH DIFFERENTIAL ??? HEMOGLOBIN A1C W EAG ??? LIPID PROFILE ??? HEPATITIS C ANTIBODY ??? HIV-1 HIV-2 ANTIBODY + HIV P24 AG PANEL ??? HEPATITIS B SURFACE ANTIBODY ??? HEPATITIS B SURFACE ANTIGEN W RFLX CONFIRMATION ??? HEPATITIS B CORE ANTIBODY IGM ??? AMB REFERRAL TO GASTROENTEROLOGY Patient Active Problem List Diagnosis Date Noted ??? COVID-19 07/09/2021 Priority: Not Prioritized ??? Hypercholesteremia 01/31/2019 Priority: Not Prioritized ??? PCOS (polycystic ovarian syndrome) Priority: Not Prioritized Goals None Family and social history on file and reviewed. Social History Socioeconomic History ??? Marital status: [...] on file Housing Stability: Not on file Health Maintenance Topic Date Due ??? HEPATITIS B VACCINE (1 of 3 - 3-dose series) Never done ??? Colorectal Cancer Screening Never done ??? LIPID TESTING Never done ??? HIV SCREENING Never done ??? HEPATITIS C SCREENING Never done ??? ZOSTER VACCINE (1 of 2) Never done ??? SCREENING FOR DIABETES 05/22/2021 ??? COVID-19 VACCINE (4 - Booster for Pfizer series) 06/29/2021 ??? PAP with HPV 12/29/2022 ??? INFLUENZA VACCINE (1) 03/12/2023 ??? MAMMOGRAM 12/30/2024 ??? DTAP/TDAP/TD VACCINES (2 - Td or Tdap) 01/31/2029 ??? DEPRESSION SCREENING Completed ??? PNEUMOCOCCAL VACCINE Aged Out ??? HIB VACCINE Aged Out ??? MENINGOCOCCAL VACCINE Aged Out Immunization History Administered Date(s) Administered ??? Covid Pfizer primary monovalent 12+ yr 0.3mL Purple cap 10/10/2020, 10/31/2020, 05/04/2021 ??? FLU VACCINE IIV ADJUVANT IM 05/04/2021 ??? FLU VACCINE QUAD CCIIV4 PF IM 04/09/2020 ??? FLU VACCINE QUAD IIV4 SPLIT PF IM 04/29/2018, 04/30/2019, 05/04/2021, 05/26/2022 ??? FLU VACCINE TRI IIV3 SPLIT IM (FLUVIRIN) 04/17/2014 ??? Influenza Pf (6 months or older) 3 JOSSELYN 04/15/2015, 04/13/2016, 05/04/2017 ??? TDAP 01/31/2019 Current Outpatient Medications Medication Sig Dispense Refill ??? Lutera 0.1-20 MG-MCG tablet TK 1 T PO QD 3 packet 4 No current facility-administered medications for this visit. No Known Allergies Recent Labs Component Name 09/07/13 1215 WBC 7.8 RBC 4.51 HGB 13.5 HCT 39.8 MCV 88.2 MCH 29.9 MCHC 33.9 Recent Labs Component Name 09/07/13 1223 SODIUM 140 POTASSIUM 4.0 CHLORIDE 105 CO2 27 BUN 8 CREATININE 0.48* GLUCOSE 87 CALCIUM 8.7 ALBUMIN 3.5 ALKPHOS 47 ALT 39 AST 26 TBIL 0.4 TPROT 7.3 EGFR >60 No results for input(s): CHOL, TRIG, HDL, LDLCALC in the last 07792 hours. Recent Labs Component Name 09/07/13 1223 EGFR >60 No results for input(s): HGBA1C in the last 49616 hours. No results for input(s): MICROALBCREA in the last 21938 hours. ???Medication(s) I personally manage have been reviewed and updated today. See Medication Tab for details.?? Medications Discontinued During This Encounter Medication Reason ??? Melatonin 10 MG Yes Pharm/AVS ??? Multiple Vitamins-Minerals (MULTIVITAMIN ADULT PO) Yes Pharm/AVS Current Outpatient Medications Medication Sig Dispense Refill ??? Lutera 0.1-20 MG-MCG tablet TK 1 T PO QD 3 packet 4 No current facility-administered medications for this visit. Return in about 6 months (around 08/08/2023) for Follow up . Voice recognition software was used in the dispatcher service chief of this documentation. There could be bothgrammatical and syntactical errors associated with this software. documented in this encounter Miscellaneous Notes * Clinical References AVS - Celina Sifuentes MD - 02/05/2023 9:09 AM CDT Images from the original note were not included. Adult Immunizations: Shingles - Video Learn the cause of shingles and how it affects the body. Understand who should and should not receive this vaccine, its effectiveness, and that the best way to prevent shingles is to be vaccinated. To view the video go to this web address: [email or web address] Or, scan this QR code with your smart phone ?? [facility] documented in this encounter Plan of Treatment Upcoming Encounters Date Type Department Care Team (Late st Contact Info) Description 07/19/2024 9:45 AM MEDICARE SPECIALIST Office Visit [facility] - SLITTING MACHINE OPERATOR [address] [place] [address] Leatha Gupta MD [facility] [place] [address] 12/11/2024 9:00 AM CDT Office Visit [facility] - Surgery [address] [facility], [address] [address] [place] [address] [address] 12/11/2024 10:40 AM CDT Office Visit [facility] [address] [place] [address] Bernardo Lizarraga MD [address] [place] [address] [address] documented as of this encounter Procedures Procedure Name Priority Date/Time Associated Diagnosis Comments HEMOGLOBIN A1C W EAG Routine 02/05/2023 9:29 AM CDT Diabetes mellitus screening CBC W AUTO DIFFERENTIAL Routine 02/05/2023 9:29 AM CDT Leukocytosis, unspecified type LIPID PROFILE Routine 02/05/2023 9:29 AM CDT Screening cholesterol level HIV-1 HIV-2 ANTIBODY + HIV P24 AG PANEL Routine 02/05/2023 9:28 AM CDT Screening for HIV without presence of risk factors HEPATITIS B SURFACE ANTIBODY Routine 02/05/2023 9:28 AM CDT Need for hepatitis B screening test HEPATITIS B SURFACE ANTIGEN W RFLX CONFIRMATION Routine 02/05/2023 9:28 AM CDT Need for hepatitis B screening test HEPATITIS C ANTIBODY Routine 02/05/2023 9:28 AM CDT Need for hepatitis C screening test HEPATITIS B CORE ANTIBODY IGM Routine 02/05/2023 9:28 AM CDT Need for hepatitis B screening test documented in this encounter Results * XR HAND BILAT 2VW (02/05/2023 10:04 [...] 02/05/2023 10:39 AM Celina Sifuentes MD DIAGNOSTIC IMAGIN G ORDERABLES * (ABNORMAL) LIPID PROFILE (02/05/2023 9:29 AM [...] Resulting Agency Comment Lab Testing performed at: [place] [address] ?? [facility] [id number] Celina Sifuentes MD LAB - CHEMISTRY O RDERABLES [facility] ACCOUNT BILL [address] [place] [address] * HEMOGLOBIN A1C W EAG (02/05/2023 9:29 [...] or women. ??Falsely low HbA The [facility]idence Manager assay for the measurement of HbA1c is a National Glycohemoglobin Standardization Program (NGSP) certified method. Blood BLOOD SPECIMEN / Unknown 02/05/2023 9:29 AM CDT 02/05/2023 Narrative Resulting Agency Comment Lab Testing performed at: [facility] [address] [place], [place] [address] ?? [facility] [place] [id number] Celina Sifuentes MD LAB - CHEMISTRY O RDERABLES [facility] ACCOUNT BILL [address] [place] [address] * CBC WITH DIFFERENTIAL (02/05/2023 9:29 AM CDT) WBC 6.8 4.4 - 10.7 x10E9/L [facility] ACCOUNT BILL RBC 4.68 3.80 - 5.20 x10E12/L [facility] ACCOUNT BILL Hemoglobin 14.1 12.0 - 15.6 gm/dL [facility] ACCOUNT BILL Hematocrit 43.1 35.9 - 45.5 % [facility] ACCOUNT BILL MCV 92.1 80.7 - 98.3 fl [facility] ACCOUNT BILL MCH 30.1 26.7 - 34.0 pg [facility] ACCOUNT BILL MCHC 32.7 30.8 - 35.9 gm/dL [facility] ACCOUNT BILL RDW 13.2 12.1 - 14.9 % [facility] ACCOUNT BILL Platelet Count 327 153 - 416 x10E9/L [facility] ACCOUNT BILL Comment:MPV FL BLOOD ([facility]) 9 .6 fl 9.4-12.9 Granulocytes % 66.8 44.0 - 73.0 % [facility] ACCOUNT BILL Lymphocytes % 21.4 20.0 - 43.0 % [facility] ACCOUNT BILL Monocytes % 6.5 5.0 - 13.0 % [facility] ACCOUNT BILL Eosinophils % 4.1 0.0 - 6.0 % [facility] ACCOUNT BILL Basophils % 0.9 0.0 - 2.0 % [facility] ACCOUNT BILL Granulocytes Absolute 4.53 2.01 - 7.14 x10E9/L [facility] ACCOUNT BILL Lymphocytes Absolute 1.45 1.07 - 3.94 x10E9/L [facility] ACCOUNT BILL Monocytes Absolute 0.44 0.26 - 1.07 x10E9/L [facility] ACCOUNT BILL Eosinophils Absolute 0.28 0 - 0.47 x10E9/L [facility] ACCOUNT BILL Basophils Absolute 0.06 0 - 0.08 x10E9/L [facility] ACCOUNT BILL Immature Granulocytes 0.3 0 - 1 % [facility] ACCOUNT BILL Immature Granulocytes Absolute 0.02 0.00 - 0.06 x10E9/L [facility] ACCOUNT BILL nRBC 0 /100 WBC [facility] ACCOUNT BILL Blood BLOOD SPECIMEN / Unknown 02/05/2023 9:29 AM CDT 02/05/2023 Narrative Resulting Agency Comment Lab Testing performed at: [place] [address] [facility] ?? [facility] [phone] Celina Sifuentes MD LAB - HEMATOLOGY ORDERABLES Performing Organization Address City/[facility]/ZIP Co de Phone Number [facility] ACCOUNT BILL [address] [place] [address] * HEPATITIS B CORE ANTIBODY IGM (02/05/2023 9:28 AM CDT) Hepatitis B Core Virus Antibody IgM Negative Negative [facility] ACCOUNT BILL Blood BLOOD SPECIMEN / Unknown 02/05/2023 9:28 AM CDT 02/05/2023 Narrative Resulting Agency Comment Lab Testing performed at: [facility] [address] ??[facility] [phone] Celina Sifuentes MD LAB - CHEMISTRY O RDERABLES [facility] ACCOUNT BILL [address] [place] [address] * HEPATITIS B SURFACE ANTIGEN W RFLX CONFIRMATION (02/05/2023 9:28 AM CDT) Hepatitis B Virus Surface Antigen Negative Negative [facility] ACCOUNT BILL Blood BLOOD SPECIMEN / Unknown 02/05/2023 9:28 AM CDT 02/05/2023 Narrative Resulting Agency Comment Lab Testing performed at: [facility] [address] ??[facility] [phone] Celina Sifuentes MD LAB - CHEMISTRY O ELDON Performing Organization Address [facility] de Phone Number [facility] ACCOUNT BILL [address] [place] [address] * HEPATITIS B SURFACE ANTIBODY (02/05/2023 9:28 AM CDT) Hepatitis B Virus Surface Antibody Non Reactive [facility] ACCOUNT BILL Comment: ? Non Reactive: Inconsistent with immunity, ? less than 10 mIU/mL ? Reactive: ? Consistent with immunity, ? greater than 9.9 mIU/mL Blood BLOOD SPECIMEN / Unknown 02/05/2023 9:28 AM CDT 02/05/2023 Narrative Resulting Agency Comment Lab Testing performed at: [facility] ??[facility] [phone] Celina Sifuentes MD LAB - CHEMISTRY O ELDON Performing Organization Address [facility] de Phone Number [facility] ACCOUNT BILL [address] [place] [address] * HIV-1 HIV-2 ANTIBODY + HIV P24 AG PANEL (02/05/2023 9:28 AM CDT) Pathologist [facility] HIV Screen 4th Generation w Reflex Non Reactive Non Reactive [facility] ACCOUNT BILL Comment: HIV Negative HIV-1/HIV-2 antibodies and HIV-1 p24 antigen were NOT detected. There is no laboratory evidence of HIV infection. Blood BLOOD SPECIMEN / Unknown 02/05/2023 9:28 AM CDT 02/05/2023 Narrative Resulting Agency Comment Lab Testing performed at: [facility] [place] [address] ??[facility] [phone] Celina Sifuentes MD LAB - CHEMISTRY O RDERABLES [facility] ACCOUNT BILL [address] [place] [address] * HEPATITIS C ANTIBODY (02/05/2023 9:28 AM [...] Agency Comment Lab Testing performed at: [facility] [place] [address] ??[facility] [id number] Celina Sifuentes MD LAB - CHEMISTRY O RDERABLES [facility] ACCOUNT BILL [address] [place] [address] documented in this encounter Visit Diagnoses Diagnosis Hypercholesteremia- Primary Pure hypercholesterolemia Establishing care with new doctor, encounter for MVP (mitral valve prolapse) Mitral valve disorders Screening for thyroid disorder Screening cholesterol level Screening for lipoid disorders Diabetes mellitus screening Screening for diabetes mellitus Screening for colon cancer Special screening for malignant neoplasms, colon Need for hepatitis C screening test Special screening examination for other specified viral diseases Screening for HIV without presence of risk factors Special screening examination for other specified viral diseases Need for vaccination Need for prophylactic vaccination and inoculation against unspecified single disease Leukocytosis, unspecified type Need for hepatitis B screening test Stiffness of hand joint, unspecified laterality Stiffness of hand joint, unspecified laterality * Assessment & Plan Note - Celina Sifuentes MD - 02/05/2023 9:10 AM CDT Associated Problem(s): MVP (mitral valve prolapse) (Resolved 02/05/2023) Work up was negative documented in this encounter
--- OUTSIDE RECORDS SUMMARY | 2024-07-02 04:42 | XMS_ITS | Encounter Summary ---
Author Organization [facility] Address [address] [place] [address] Care Team Providers Care Journalism Internship Name Role Phone Unavailable Primary Care Provider Unavailabl e Reason for Visit * Radiology Services (Routine) - Closed Specialty Diagnoses / Procedures Referred By Contac t Referred To Contact Ultrasound Diagnoses Pelvic pain Procedures US PELVIS W TRANSVAG NON OB US PELVIS W TRANSVAG W DOP NON OB Leatha Gupta MD [address] [place] [address] [facility] Ultrasound [address] [place] [address] Referral ID Status Reason Start Date Expiration Date Visits Re quested Visits Authorized [id number] Closed 10/07/2021 10/07/2022 1 1 Encounter Details Date Type Department Care Team (Late st Contact Info) Description 10/13/2021 1:00 PM CDT - 10/13/2021 11:59 PM CDT Hospital Encounter [facility] Health Imaging Services - Ultrasound [address] [place] [address] Leatha Gupta MD [address] [place] [address] Discharge Disposition: Home or Self [...] have Coronavirus / COVID-19? No / Unsure 10/06/2021 8:21 AM CDT documented as of this encounter [...] st Contact Info) Description 07/19/2024 9:45 AM CHEMIST BIOLOGICAL Office Visit [facility] - QUALITY LIAISON [address] [place] [address] Leatha Gupta MD [address] [place] [address] 12/11/2024 9:00 AM CDT Office Visit [facility] - Surgery [address] [place] [address], [address] [address] [place] [address] [address] [address] 12/11/2024 10:40 AM CDT Office Visit [facility] Cancer Care [address] [place] [address] Bernardo Lizarraga MD [address] [place], [place] [address]SERG SANTOS [address] [address] documented as of this encounter Procedures Procedure Name Priority Date/Time Associated Diagnosis Comments US PELVIS W TRANSVAG NON OB Routine 10/13/2021 1:30 PM CDT Pelvic pain documented in this encounter Results * US PELVIS W TRANSVAG NON OB (10/13/2021 1:30 PM CDT) Anatomical Region Laterality Modality Pelvis Ultrasound 10/13/2021 2:40 PM CDT Impressions 10/13/2021 2:54 PM CDT 1.5 cm uterine fibroid Nonvisualization of the ovaries *Reading Radiologist: Mukund Melendez on 10/13/2021 at 2:54 PM Narrative 10/13/2021 2:54 PM CDT EXAM: US PELVIS W TRANSVAG NON OB*[id number] INDICATION: Pelvic and perineal pain COMPARISON: none available FINDINGS: The uterus measures 9.7 x 4.9 x 4.7 cm. There is a 1.5 cm hypodense rounded uterine fibroid present in the uterine fundus. Endometrial complex is normal in thickness at 6 mm. Neither the right ovary nor the left ovary is visualized during this examination. There is no free fluid in the posterior cul-de-sac. There is no adnexal mass. Procedure Note Mukund Melendez MD - 10/13/2021 EXAM: US PELVIS W TRANSVAG NON OB*[id number] INDICATION: Pelvic and perineal pain COMPARISON: none available FINDINGS: The uterus measures 9.7 x 4.9 x 4.7 cm. There is a 1.5 cm hypodense rounded uterine fibroid present in the uterine fundus. Endometrial complex is normal in thickness at 6 mm. Neither the right ovary nor the left ovary is visualized during this examination. There is no free fluid in the posterior cul-de-sac. There is no adnexal mass. IMPRESSION 1.5 cm uterine fibroid Nonvisualization of the ovaries *Reading Radiologist: Mukund Melendez on 10/13/2021 at 2:54 PM Leatha Gupta MD US ORDERABLES documented in this encounter Visit Diagnoses Diagnosis Pelvic pain Unspecified symptom associated with female genital organs documented in this encounter
--- OUTSIDE RECORDS SUMMARY | 2024-07-02 04:42 | XMS_ITS | Encounter Summary ---
Author Organization [facility] Address [address] [place] [address] Care Team Providers Care Cushion Padder Name Role Phone Unavailable Primary Care Provider Unavailabl e Reason for Referral * Radiology Services (Routine) - Closed Specialty Diagnoses / Procedures Referred By Sherie jacobo Referred To Contact Diagnoses Abnormal mammogram of left breast Procedures MAMMO LEFT DIAGNOSTIC W DONALD MAMMO LEFT DIAGNOSTIC Leatha Gupta MD [address] [place] [address] Referral ID Status Reason Start Date Expiration Date Visits Re quested Visits Authorized Closed 12/24/2021 12/24/2022 1 1 Reason for Visit * Radiology Services (Routine) - Closed Specialty Diagnoses / Procedures Referred By Sherie jacobo Referred To Contact Diagnoses Abnormal mammogram of left breast Procedures MAMMO LEFT DIAGNOSTIC W DONALD MAMMO LEFT DIAGNOSTIC Leatha Gupta MD [address] [place] [address] Referral ID Status Reason Start Date Expiration Date Visits Re quested Visits Authorized Closed 12/24/2021 12/24/2022 1 1 Encounter Details Date Type Department Care Team (Late st Contact Info) Description 03/17/2022 1:25 PM CDT - 03/17/2022 11:59 PM CDT Hospital Encounter [facility] [address] [place] [address] Leatha Gupta MD [address] [place] [address] Discharge Disposition: Home or Self [...] st Contact Info) Description 07/19/2024 9:45 AM DRIER BELT CONVEYOR Office Visit [facility] - SCHOOL SUPERVISOR [address] [place] [address] Leatha Gupta MD [address] [place] [address] 12/11/2024 9:00 AM CDT Office Visit [facility] - Surgery [address] [facility], [address] [place] [address] [place] [address] [facility] [address] [place] [address] 12/11/2024 10:40 AM CDT Office Visit [facility] [address] [place] [address] [place] [address] [place] [address] [phone] documented as of this encounter Procedures Procedure Name Priority Date/Time Associated Diagnosis Comments MAMMO LEFT DIAGNOSTIC W DONALD Routine 03/17/2022 1:41 PM CDT Abnormal mammogram of left breast documented in this encounter Results * MAMMO LEFT DIAGNOSTIC W DONALD (03/17/2022 [...] outer quadrant was performed by a trained pharmaceutical sales specialist. In the left breast 2:00 position 8 cm from the nipple posterior depth there is a group of simple cysts measuring 2.0 x 1.1 x 2.3 cm in aggregate. ?? Leatha Gupta MD MAMMO ORDERABLES documented in this encounter Visit Diagnoses Diagnosis Abnormal mammogram of left breast documented in this encounter
--- OUTSIDE RECORDS SUMMARY | 2024-07-02 04:42 | XMS_ITS | Encounter Summary ---
Author Organization [facility] Address [address] [facility] [place] [address] Care Team Providers Care Agency Legal Counsel Name Role Phone Naya Leonard Irving DO Unavailable Bernardo Lizarraga MD Unavailable [phone] Celina Sifuentes MD Primary Care Provider [phone] Reason for Visit * Reason Comments Post-Op Bilat mast Encounter Details Date Type Department Care Team (Late st Contact Info) Description 02/24/2023 9:10 AM CDT Office Visit [facility] - Surgery [address] [place] [address], [address] [address] Ernesto Melendez MD [address] [place] [address] Postop check (Primary Dx) Social History [...] - - Weight 85.3 kg (188 lb) 02/24/2023 9:00 AM CDT Height 162.6 cm (5' 4 ) 02/24/2023 9:00 AM CDT Body Mass Index 32.27 02/24/2023 9:00 AM CDT documented in this encounter Patient Instructions * Patient Instructions* Sari Flores - 02/24/2023 9:01 AM CDT Patient Name: Betina Coy Your procedure has been scheduled for: Date: Wednesday02/25/2023 Approximate Arrival Time: 5:30AM You will be notified by the hospital regarding your exact arrival time. Surgeon: Place: [] Ovi Rose M.D. [x][facility]:[address] [place] [address]. Patient Registration [] Mukund Azevedo M.D. [facility] [x] Ernesto Melendez M.D. Ground Floor/[facility]. [] Dior Heard M.D. [] [facility] [] Pelon Gonzalez M.D First Floor Main Entrance [] Naya Leonard D.O. [] Rickey Frost M.D. [] Mahesh Eugene D.O. [] Saroj Bennett M.D. [] Tonio Waite D.O. [] Brandon Hudson M.D. [] Elaine Mckeon M.D. INSTRUCTIONS: [x] Nothing to eat or drink after midnight. [x] Do take heart, blood pressure, or breathing medications with a sip of water the morning of surgery. [x] You will be having OUTPATIENT SURGERY. You will need someone to drive you home. Name of Procedure: BILATERAL CHEST WALL SEROMA EVACUATION WITH BILATERAL HENRIETTA-SUTTON DRAIN PLACEMENT Your follow-up appointment is: Date:Wednesday03/03/2023 Time: 10:00AM Patient's medications and allergies were reviewed with the patient today. Patient was instructed tocontact primary care physician or ordering provider with any questions regarding medications. documented in this encounter Progress Notes * Ernesto Melendez MD - 02/24/2023 9:10 AM CDT Betina Coy is a 52 year old female who is here for a postoperative visit (surgery performed by Dr. Leonard) 1. Right Simple Mastectomy 2. Injection of methylene blue dye to right breast 3. Right sentinel lymph node biopsy 4. Left Prophylactic Mastectomy Referring physician is Leatha Gupta MD. The patient's drains were apparently mouth functioning on the 1st postoperative day necessitating removal in the office of both drains on the left and 1 drain on the right. The right drain is not functioning but leaking around the drain. The patient has significant fluid collections on both sides. I think the patient will require CHANI drain placement which I have scheduled for tomorrow morning. I discussed her path oligemia report with her at great length. She will need to see medical oncology postoperatively. Pathology: Final Diagnosis A. Left breast, prophylactic [...] Negative for metastatic carcinoma (0/1) at 0950 A/P: PO right mastectomy, left prophylactic mastectomy See above for discussion. Bilateral chest wall drain placement tomorrow. Follow-up with Dr. Leonard in 1 week Medical oncology consultation documented in this encounter Plan of Treatment Upcoming Encounters Date Type Department Care Team (Late st Contact Info) Description 07/19/2024 9:45 AM HUMAN RESOURCES MANAGER MANUFACTURING Office Visit [facility] - SNACK BAR CASHIER [address] [address] Leatha Gupta MD [address] [place] [address] 12/11/2024 9:00 AM CDT Office Visit [facility] - Surgery [address] [facility], [address] [place] [address] [place] [address] [address] 12/11/2024 10:40 AM CDT Office Visit [facility] [address] [place] [address] [address] [place] [address] [place] [address] [address] documented as of this encounter Visit Diagnoses Diagnosis Postop check- Primary Follow-up examination, following unspecified surgery documented in this encounter Care Teams Agency Legal Counsel Relationship Specialty Start Date End Date Celina Sifuentes MD [address] [place] [address] PCP - General Family Medicine 02/16/23 11/14/23 [place] [address] [address] Surgical Oncologist Surgical Oncology 02/15/23 [place] [address] [address] Emissions Testing And Repair Technician/Oncologist Hematology and Oncology 02/16/23 documented as of this encounter
--- OUTSIDE RECORDS SUMMARY | 2024-07-02 04:42 | XMS_ITS | Encounter Summary ---
Author Organization [facility] Address [address] [place] [address] Care Team Providers Care Administration Intern Name Role Phone Unavailable Primary Care Provider Unavailabl e Reason for Visit * Reason Comments Pain Pelvic since wednesday, around left ovary area Vaginal Bleeding for about 3-4 weeks Pain Back for about 3-4 weeks, radiating down left leg Encounter Details Date Type Department Care Team (Late st Contact Info) Description 10/07/2021 3:45 PM CDT Office Visit [facility] - INSPECTOR CASING [address] [place] [address] Leatha Gupta MD [address] [place] [address] Pelvic pain (Primary Dx); DUB (dysfunctional uterine bleeding) Social History Tobacco [...] Sign Reading Time Taken Comments Blood Pressure 120/80 10/07/2021 3:44 PM CDT Pulse 71 10/07/2021 3:44 PM CDT Temperature - - Respiratory Rate - - Oxygen Saturation - - Inhaled Oxygen Concentration - - Weight 88.9 kg (196 lb) 10/07/2021 3:44 PM CDT Height 162.6 cm (5' 4 ) 10/07/2021 3:44 PM CDT Body Mass Index 33.64 10/07/2021 3:44 PM CDT documented in this encounter Progress Notes * Leatha Gupta MD - 10/07/2021 6:36 PM CDT FIRE PROTECTION INSPECTOR NOTE HPI Betina Coy is an 51 year old .Patient's last menstrual period was 09/16/2021.woman who presents with some issues. When was seen in Nov wanted to try continuous OCPs to see if would help some perimenopausal symptoms. Did OK at first then In Jeremy started having some back pain that radiatedand started with vaginal bleeding. The bleeding has been getting worse. Also started having left sided pelvic pain a few days ago. Is worse at the end of the day and better with rest but no other symptoms etc.Nothing else affects it. Has not been taking much for it. Past Medical History: Diagnosis Date ??? COVID [...] file Tobacco Use ??? Smoking status: Never Smoker ??? Smokeless tobacco: Never Used Vaping Use ??? Vaping Use: Never used [...] pain, hematuria, vaginal dryness or vaginal discharge. Endocrine: No thyroid or diabetes problems. Hematologic: No bruising or bleeding disorders. . EXAMINATION BP 120/80 Pulse 71 Ht 5' 4 Wt 196 lb BMI 33.64 kg/m2 Body mass index is 33.64 kg/m??. ABDOMEN: Soft with good bowel sounds x4 quadrants. No masses or tenderness noted. There is no liveror spleen enlargement. No evidence of hernia. EGBUS: Without any lesions or abnormalities. Normal Bartholin's and Natchez's. Vagina: Moist, pink rugae without any lesions. Well supported with no evidence of relaxation. Some discomfort over left levators Cervix: Closed, without any lesions. Uterus: Normal size, mobile, nontender. Well supported. Adnexa: Nontender right and sl tender left without palpable masses. Urinary: Urethral meatus normal without palpable masses. Urethra without masses or tenderness. No suprapubic tenderness associated with bladder. Rectovaginal: Deferred. ASSESSMENT ICD-10-CM 1. Pelvic pain R10.2 US PELVIS W TRANSVAG W DOP NON OB 2. DUB (dysfunctional uterine bleeding) N93.8 Patient Active Problem List Diagnosis Date Noted ??? COVID-19 07/09/2021 Priority: Not Prioritized ??? Hypercholesteremia 01/31/2019 Priority: Not Prioritized ??? PCOS (polycystic ovarian syndrome) Priority: Not Prioritized ??? MVP (mitral valve prolapse) Priority: Not Prioritized PLAN Betina Coy is a 51 year old female, Patient's last menstrual period was 09/16/2021., here for 1. Pelvic pain Will get US to make sure not cyst etc. IF US neg and pain continues may need to see PCP etc. Try NSAIDS. 2. DUB Will go back to doing pills 3 weeks on and 1 off to see if will help. Orders Placed This Encounter ??? US PELVIS W TRANSVAG W DOP NON OB Leatha Gutpa MD documented in this encounter Plan of Treatment Upcoming Encounters Date Type Department Care Team (Late st Contact Info) Description 07/19/2024 9:45 AM CEMENT SIDE LASTER Office Visit [facility] - INSPECTOR CASING [address] [place] [address] Leatha Gupta MD [facility] [place] [address] 12/11/2024 9:00 AM CDT Office Visit [facility] - Surgery [address] [facility], [address] [address] [place] [address] [address] 12/11/2024 10:40 AM CDT Office Visit [facility] [address] [place] [address] [address] [place] [address] [address] documented as of this encounter Visit Diagnoses Diagnosis Pelvic pain- Primary Unspecified symptom associated with female genital organs DUB (dysfunctional uterine bleeding) Other disorder of menstruation and other abnormal bleeding from female genital tract documented in this encounter
--- OUTSIDE RECORDS SUMMARY | 2024-07-02 04:42 | XMS_ITS | Encounter Summary ---
Author Organization [facility] Address [address] [facility] [place] [address] Care Team Providers Care Senior Applications Architect Name Role Phone Naya Leonard DO Unavailable [phone] Bernardo Lizarraga MD Unavailable [phone] Celina Sifuentes MD Primary Care Provider [phone] Reason for Visit * Reason Comments Establish Care * Consultation (Routine) - Closed Specialty Diagnoses / Procedures Referred By Sherie t Referred To Contact Hematology / Oncology-Medical Diagnoses Mass of right [place], [place] [address] [address] [place] [address] [address] Referral ID Status Reason Start Date Expiration Date V isits Requested Visits Authorized [id number] Closed Specialty Services Required 02/02/2023 02/02/2024 1 1 Encounter Details Date Type Department Care Team (Late st Contact Info) Description 02/16/2023 11:20 AM CDT Office Visit [facility] [address] [place] [address] [place] [address] [place] [address] [place] [address] [place] [address] Invasive ductal carcinoma of right breast (HCC) (Primary Dx); Mass of right breast, unspecified quadrant; Family history of cancer; Benign cyst of breast, unspecified laterality Social History Tobacco Use Types [...] Sign Reading Time Taken Comments Blood Pressure 122/67 02/16/2023 11:48 AM CDT Pulse 71 02/16/2023 11:48 AM CDT Temperature 36.3 ??C (97.3 ??F) 02/16/2023 11:48 AM C DT Respiratory Rate 18 02/16/2023 11:48 AM CDT Oxygen Saturation 97% 02/16/2023 11:48 AM CDT RA Inhaled Oxygen Concentration - - Weight 86 kg (189 lb 8 oz) 02/16/2023 11:48 AM C DT Height 163.8 cm (5' 4.5 ) 02/16/2023 11:48 AM CD T Body Mass Index 32.03 02/16/2023 11:48 AM CDT documented in this encounter Patient Instructions * Patient Instructions* Bernardo Lizarraga MD - 02/16/2023 12:21 PM CDT Hormone receptor positive breast cancer Good luck with surgery Likely will send oncotype - helps me determine need for chemo Longer term will need hormonal therapy RTC 02/24 morning to discuss surgery results documented in this encounter Progress Notes * Bernardo Lizarraga MD - 02/16/2023 11:20 AM CDT [facility] HEMATOLOGY/ONCOLOGY CLINIC CONSULTATION Assessment: Piotr - 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 - Family History of breast cancer - in her grandmother. - Benign Breast Cysts - multiple drains in the past. Plan: Surgery notes reviewed, biopsies reviewed Patient has planned bilateral mastectomy 02/18, prophylactic on the left Patient with a hormone receptor positive HER2 negative invasive ductal carcinoma Unclear at this point extent of disease or josefina involvement, suspect she will need Oncotype after surgery Depending on extent of disease she may or may not need evaluation by Radiation Oncology Referral to genetics is pending She had previously been on estrogen containing control, I told her she needs a non estrogen containing control method A re-evaluate next week after surgery and discuss surgical pathology Other medical problems as per PCP Thank you for allowing me to participate in patient care. Diagnosis, work up and management plan was discussed with patient. Patient verbalised understanding. All Questions answered to patient satisfaction. Bernardo Lizarraga MD - Hematology/Oncology Available on [employer] chat during the week Cell# (providers only): [phone] Referring Physician: Naya Leonard DO Dr Mufti Reason for Visit: Breast cancer HPI: Betina Coy is 52 year old female with a history of benign breast cyst who presents for new breast cancer diagnosis. Patient actually has a history of multiple benign breast cyst and she has had these drained in the past. She has had multiple abnormal mammograms because of these cysts. She had mammogram done earlier this year because she had a palpable area on the left side that turned out geovani a cyst, however her right-sided mammogram was abnormal as well. Biopsy eventually showed invasive ductal carcinoma. She has surgery planned for later this week. She comes for questions regarding this diagnosis. On exam, she is seen at bedside with her . She has chosen bilateral mastectomy which is going to be done on . She has a referral to genetics she has not yet heard from them. She is concerned because she has daughters and granddaughters. She is on estrogen containing control at baseline. Goal of Therapy: curative Oncology History: 02/2023 - Diagnosed right breast IDC - ER/MI+, Her2- (1+) - Grade 1, Ki-67 3% PMH: Past Medical History: Diagnosis Date ??? Breast CA (CMS/HCC) Right ??? COVID 06/2021 ??? Hypothyroid ??? MVP (mitral valve prolapse) ??? PCOS (polycystic ovarian syndrome) PSH: Past Surgical History: Procedure Laterality Date ??? Bunionectomy ??? Hemorrhoidectomy ??? MAMMO STEREOTACTIC RIGHT BIOPSY Right 01/06/2023 MAMMO STEREOTACTIC RIGHT BIOPSY 01/06/2023 [facility] NEO ??? NEEDLE BIOPSY Right 1018 2 cyst aspirations ??? OTHER SURGERY breast cyst aspiration ??? US BREAST RIGHT BIOPSY Right 01/06/2023 US BREAST RIGHT BIOPSY 01/06/2023 [facility] US Medications: Outpatient Encounter Medications as of 02/16/2023 Medication Sig Dispense Refill ??? atorvastatin (Lipitor) 20 MG tablet Take 1 (one) tablet by mouth at bedtime (Patient not taking: Reported on 02/16/2023) 100 tablet 4 ??? Lutera 0.1-20 MG-MCG tablet TK 1 T PO QD 3 packet 4 No facility-administered encounter medications on file as of 02/16/2023. Allergy: No Known Allergies Family History Problem Relation Name Age of Onset ??? Other Mother breast cyst ??? Cancer - Breast Paternal Grandmother Social History Socioeconomic History ??? Marital status: Tobacco Use ??? Smoking status: Never ??? Smokeless tobacco: Never Vaping Use ??? Vaping Use: Never used Substance and Sexual Activity ??? Alcohol use: No ??? Drug use: Never ??? Sexual activity: Yes control/protection: Pill Physical Examination: Vitals: BP 122/67 Pulse 71 Temp 97.3 ??F (36.3 ??C) Resp 18 Ht 1.638 m (5' 4.5 ) Wt 86 kg(189 lb 8 oz) SpO2 97% Comment: RA Karnofsky: 100% - Normal, no complaints, no evidence of disease: General: No acute distress Eyes: Conjuctivae pink Neck: Supple Lymph: No Lymphadenopathy Cardiovascular: S1 and S2 heard Lungs: .Normal Work of breathing Abdomen: Soft Extremities: No edema Neuro:Alert and oriented to person, place, and time Pain Scale Pain Assessment Pain Score: Zero Psychosocial History PHQ-2 Little interest or pleasure in doing things: Not at all Feeling down, depressed, or hopeless: Not at all PHQ2 TOTAL SCORE: 0 Pertinent Labs: Recent Labs Component Name 02/05/23928 WBC 6.8 RBC 4.68 HGB 14.1 HCT [...] Bernardo Lizarraga MD - Hematology/Oncology Cell# (providers only): [phone] documented in this encounter Plan of Treatment Upcoming Encounters Date Type Department Care Team (Late st Contact Info) Description 07/19/2024 9:45 AM CANE WEIGHER HELPER Office Visit [facility] - TELESALES PROFESSIONAL [address] [place] [address] Leatha Gupta MD [address] [place] [address] 12/11/2024 9:00 AM CDT Office Visit [facility] - Surgery [address] [facility], [address] [place] [address] [place] [address] [address] [place] [address] 12/11/2024 10:40 AM CDT Office Visit [facility] [address] [facility] [address] [place] [address] [place] [address] [facility] [address] [place] [address] documented as of this encounter Visit Diagnoses Diagnosis Invasive ductal carcinoma of right breast (HCC)- Primary Mass of right breast, unspecified quadrant Family history of cancer Family history of unspecified malignant neoplasm Benign cyst of breast, unspecified laterality documented in this encounter Care Teams Senior Applications Architect Relationship Specialty Start Date End Date Celina Sifuentes MD [address] [place] [address] PCP - General Family Medicine 02/16/23 11/14/23 [place] [address] [address] [place] [address] Surgical Oncologist Surgical Oncology 02/15/23 [place] [address] [facility] [address] [place] [address] Credit Control Administrator/Oncologist Hematology and Oncology 02/16/23 documented as of this encounter
--- OUTSIDE RECORDS SUMMARY | 2024-07-02 04:42 | XMS_ITS | Encounter Summary ---
Author Organization [facility] Address [address] [place] [address] Care Team Providers Care Creative Consultant Name Role Phone Unavailable Primary Care Provider Unavailabl e Encounter Details Date Type Department Care Team (Latest Contact Info) Description 01/25/2023 Travel Social History Tobacco Use Types Packs/Day [...] st Contact Info) Description 07/19/2024 9:45 AM FLUID POWER MECHANIC Office Visit [facility] - ASSISTANT PROPERTY MANAGER [address] [place] [address] Leatha Gupta MD [address] [place] [address] 12/11/2024 9:00 AM CDT Office Visit [facility] - Surgery [address] [place] [address], [address] [place] [address] Naya Leonard, [place] [address] [place] [address] [address] [place] [address] 12/11/2024 10:40 AM CDT Office Visit [facility] [address] [place] [address] [place] [address] [address] documented as of this encounter Visit Diagnoses Not on filedocumented in this encounter
--- OUTSIDE RECORDS SUMMARY | 2024-07-02 04:42 | XMS_ITS | Encounter Summary ---
Author Organization [facility] Address [address] [place] [address] Care Team Providers Care Supply Chain Associate Name Role Phone Naya Leonard DO Unavailable [phone] Bernardo Lizarraga MD Unavailable [phone] Celina Sifuentes MD Primary Care Provider [phone] Reason for Visit * Auth/Cert (Routine) Specialty Diagnoses / Procedures Referred By Contlulu t Referred To Contact Procedures OH EXC NECK FRITZ DEEP = 5 CM EXCISION MASS OR TUMOR CHEST Referral ID Status Reason Start Date Expiration Date Visits Re quested Visits Authorized [id number] 1 1 Encounter Details Date Type Department Care Team (Late st Contact Info) Description 02/25/2023 7:29 AM CDT Anesthesia Event [facility] - Perioperative Surgery [address] [place] [address] Ritchie Craven MD [address] [place] [address] Carmen Muhammad MD [address] [place] [address] Anesthesia Record Procedure Summary Procedure Name Responsible Anesthesiologist Anesthesia Start Time Anesthesia Stop Time Incision and drainage bilateral chest wall seroma and placement Shalom drains ?? (Bilateral: Chest) Ritchie Craven MD 02/25/23 0729 02/25/23 0807 Events Date Time Event Comment 02/25/2023 0635 0729 An Start 0731 An Start Data 0734 PT Reassessment 0735 Stop ABX 0743 Timeout Anesthesia part icipated in timeout at the time documented in the record by nursing. 0806 Electnc Sig This record is electronically signed by the providers listed under staff. 0806 an stop data 0807 An Stop Meds Name Total midazolam 2 mg/2mL injection 2 mg fentaNYL 100 mcg/2mL injection 100 mcg propofol 200 mg/20mL injection 229.53 mg ondansetron 4 mg/2mL injection 4 mg phenylephrine 100 mcg/mL solution 150 mc g ketorolac 30 mg/mL injection 30 mg dexamethasone 4 mg/mL injection 4 mg ceFAZolin (Ancef) 2 g in 0.9% NaCl IV 50 mL IVPB 2 g lactated ringers infusion 500 mL * Agents Name Exp. N2O O2 * Blood No blood administrations on file. Lines, Drains, and Airways Type Details Placement Removal Drain 02/18/23; 1058; Dr. Naya Leonard; 2; Channel; Bulb; 19; BARD; CHANNEL DRAIN; 817239; [id number]; Lateral, Right; Breast; None; Well; 02/25/23; 0739; DR.GLASER QUINTANA 02/18/23 1058 by Nathaniel Dalton RN 02/25/23 0739 by Joi Pearl RN Peripheral IV Date: 02/25/23; Time: 0648; Orientation: Right, Posterior; Placed By: corinne fonseca rn; Tolerance: Well 02/25/23 0648 by Reggie Fonseca RN 02/25/23 0838 by Reggie Fonseca, [place] Procedural Site (Incision) 02/25/23; 0745; Left, Upper; Chest; 02/25/23; 1520 02/25/23 0745 by Joi Pearl RN 02/25/23 1520 by Generic, Auto Release Drain 02/25/23; 0751; DR.GLASER QUINTANA; 1; Channel; Bulb; 19; BARD; ROUND 3/4 FLUTED; [id number]; [id number]; Lateral, Left; Chest; Topical; Well; 06/08/23; 1010; Not present on admission, removal date unknown 02/25/23 0751 by Joi Pearl RN 06/08/23 1010 by Betina Shah RN Procedural Site (Incision) 02/25/23; 0752; Right, Upper; Chest; 02/25/23; 1520 02/25/23 0752 by Joi Pearl RN 02/25/23 1520 by Generic, Auto Release Drain 02/25/23; 0754; DR.GLASER QUINTANA; 2; Channel; Bulb; 19; BARD; ROUND 3/4 FLUTED; 440309; [id number]; Lateral, Right; Chest; Topical; Well; 06/08/23; 1009; Not present on admission, removal date unknown 02/25/23 0754 by Joi Pearl RN 06/08/23 1009 by Betina Shah RN documented in this encounter Social History [...] as of this encounter Progress Notes * Joey RoseBENJA-AIR REDUCTION EQUIPMENT OPERATOR - 02/25/2023 8:07 AM CDT ANESTHESIA POSTOP EVALUATION NOTE Procedure: Incision and drainage bilateral chest wall seroma and placement Shalom drains ?? (Bilateral: Chest) Betina Coy is a 52 year old female Patient Vitals for the past 6 hrs: BP Temp Pulse Resp SpO2 Pain Rating Score #1 Pain Scale/Observation 02/25/23 0623 -- -- -- -- -- 6 N 02/25/23 0650 123/78 97.7 ??F (36.5 ??C) 83 16 97 % -- -- Anesthesia Type: MAC * No Diagnosis Codes entered * Mental Status: awake, alert, oriented and sufficiently recovered from acute administration of [...] NOTABLE EVENTS: No notable events documented. * Kaila Jamison DO - 02/25/2023 6:33 AM CDT ANESTHESIA PREOPERATIVE EVALUATION NOTE Procedure: BILATERAL CHEST WALL SEROMA EVACUATION W/CHANI DRAIN PLACEMENT (Bilateral) NPO status: Since Midnight (02/25/2023 6:30 AM) Vitals: Patient Vitals for the past 6 hrs: Pain Rating Score #1 02/25/23 0623 6 LMP: Patient's last menstrual period was 01/23/2023 (exact date). OB Status: Having periods ANESTHESIA PRE-EVALUATION NOTE Physical Exam: Orientation X3 Airway/Mallampati Score: II Mouth Opening Distance: 3 fingerwidths (no visible pustules or erythema of tonsils or oropharynx) Neck ROM: full Teeth: normal Heart: normal - S1 S2 Lungs: clear to ausculation bilaterally ANESTHESIA PLAN ASA Score: 3 NPO Status: No solids since midnight and No liquids within 2 hours Anesthesia Plan: general LMA Planned Induction: intravenous Planned Postop Destination: PACU Anesthetic plan was discussed with: patient Anesthetic Plan discussion was: Consented Overall additional findings/comments: Pt is just recovering from strep throat, has been on amoxicillin for several days. . BMI, Height, Weight Tobacco History Estimated body mass index is 31.58 kg/m?? as calculated from the following: Height as of this encounter: 1.626 m (5' 4 ). Weight as of this encounter: 83.5 kg (184 lb). Social History Tobacco Use Smoking Status Never Smokeless Tobacco Never Vaping Use ??? Vaping Use: Never used Alcohol History Drug History Social History Substance and Sexual Activity Alcohol Use No Social History Substance and Sexual Activity Drug Use Never Outpatient Medications: Inpatient Medications: Outpatient Medications Marked as Taking for the 02/25/23 encounter (Hospital Encounter) Medication Sig Last Dose ??? amoxicillin Take 1 (one) capsule by mouth 2 times daily for 10 days 02/24/2023 at 1800 ??? atorvastatin Take 1 (one) tablet by mouth at bedtime 02/24/2023 at 1800 ??? baclofen Take 1 (one) tablet by mouth 3 times daily as needed for Muscle Spasms May cause drowsiness. 02/24/2023 at 1800 ??? HYDROcodone-acetaminophen Take 1 (one) tablet by mouth every 6 hours as needed for Pain 02/24/2023 at 1800 Current Facility-Administered Medications Medication Dose Last Admin ??? acetaminophen 1,000 mg ??? insulin regular (HumuLIN R; NovoLIN R) 100 units/mL subcutaneous injection 0-6 Units ??? lactated ringers ??? lidocaine 0.2 mL Allergies: No Known Allergies Relevant Problems No [...] LEFT PROPHYLACTIC MASTECTOMY ??? NEEDLE BIOPSY Right 1018 right breast 2 cyst aspirations ??? OTHER SURGERY breast cyst aspiration ??? 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 Having periods OB History Para Term AB [...] Notes * Anesthesia Transfer of Care - Rose Cook APRN-AIR REDUCTION EQUIPMENT OPERATOR - 02/25/2023 8:07 AM CDT ANESTHESIA TRANSFER OF CARE NOTE Today's Date: 02/25/2023 Date of : 1970 Patient: Betina Coy Procedure(s) with comments: Incision and drainage bilateral chest wall seroma and placement Shalom drains ?? - PREVIOUS SURGICALSITES Surgeon(s): Primary: Ernesto Melendez MD Preop Diagnosis: * No Diagnosis Codes entered * Pre-op Meds (From admission, onward) Start Stop Status Route Frequency Ordered 02/25/23 0707 0.9% NaCl injection 1-10 mL See Hyperspace for full Linked Orders Report. -- Dispensed IK PRN 02/25/23 0707 02/25/23 0745 0.9% NaCl injection 3 mL See Hyperspace for full Linked Orders Report. -- Dispensed IK EVERY 8 HOURS 02/25/23 0707 02/25/23 0749 0.9% nacl irrigation solution -- Sent CONTINUOUS PRN 02/25/23 0750 02/25/23 0600 acetaminophen (Tylenol) tablet 1,000 mg 02/25/23 0644 Completed PO PRE-OP ONCE 02/25/23 0547 02/25/23 0707 ceFAZolin (Ancef) 2 g in 0.9% NaCl IV 50 mL IVPB -- Verified IV PRE-OP MULTIPLE 02/25/23 0707 02/25/23 0600 insulin regular human (HumuLIN R; NovoLIN R) 100 UNIT/ML injection 0-6 Units 02/25/23 1759 Verified IV ONCE 02/25/23 0547 02/25/23 0600 lactated ringers infusion 02/25/24 0559 Dispensed IV PRE-OP CONTINUOUS 02/25/23 0547 02/25/23 0749 lidocaine 2% - EPINEPHrine 1:100,000 injection -- Sent PRN 02/25/23 0749 02/25/23 0600 lidocaine PF (Xylocaine MPF) 1 % injection 0.2 mL 02/25/23 1759 Dispensed INFILTRATION PRE-OP ONCE 02/25/23 0547 02/25/23 0645 throat lozenge 1 lozenge 02/25/23 1844 Verified PO POST-OP ONCE 02/25/23 0635 * No Diagnosis Codes entered * . No Known Allergies Vitals: Patient Vitals for the past 3 hrs: BP Temp Pulse Resp SpO2 Pain Rating Score #1 02/25/23 0650 123/78 97.7 ??F (36.5 ??C) 83 16 97 % -- 02/25/2323 -- -- -- -- -- 6 Lines, Drains, and Airways Type Details Placement Removal Drain 02/18/23; 1058; Dr. Naya Leonard; 2; Channel; Bulb; 19; BARD; CHANNEL DRAIN; [id number]; [id number];Lateral, Right; Breast; None; Well; 02/25/23; 0739; DR.GLASER QUINTANA 02/18/23 1058 by Nathaniel Dalton RN 02/25/23 0739 by Joi Pearl, [place] Peripheral IV Date: 02/25/23; Time: 0648; Orientation: Right, Posterior; Location: Hand; Placed By:corinne fonseca rn; Gauge: 20 Gauge; Locals: Injectable; Tolerance: Well 02/25/23 0648 by Reggie Fonseca, RN Drain 02/25/23; 0751; DR.GLASER QUINTANA; 1; Channel; Bulb; 19; BARD; ROUND 3/4 FLUTED; 978759; [id number];Lateral, Left; Chest; Topical; Well 02/25/23 0751 by Joi Pearl, RN Drain 02/25/23; 0754; DR.GLASER QUINTANA; 2; Channel; Bulb; 19; BARD; ROUND 3/4 FLUTED; [id number]; [id number];Lateral, Right; Chest; Topical; Well 02/25/23 0754 by Joi Pearl RN Intraprocedure I/O Totals Intake lactated ringers infusion 500.00 mL Total Intake 500 mL Output Estimated Blood Loss 0 mL Total Output 0 mL Net Net Volume 500 mL Patient Transfer Location: OPS Transport Airway: spontaneous respirations Complications: None Handoff [...] report from the receiving PACUteam. JULIO CESAR Boogie documented in this encounter Plan of Treatment Upcoming Encounters Date Type Department Care Team (Late st Contact Info) Description 07/19/2024 9:45 AM MANAGER OF DATA Office Visit [facility] - ELECTROPLATING WORKER [address] [place] [address] eLatha Gupta MD [address] [place] [address] 12/11/2024 9:00 AM CDT Office Visit [facility] - Surgery [address] [place] [address] [place] [address] [address] [facility] [address] [place] [address] 12/11/2024 10:40 AM CDT Office Visit [facility] [address] [place] [address] [address] [place] [address] [place] [address] [address] documented as of this encounter [...] Bag/Syringe 02/25/2023 7:35 AM CDT 2 g dexAMETHasone (Decadron) injection Intravenous, PRN, Starting on Gema 02/25/23 at 0738, Until Gema 02/25/23 at 0807, Anesthesia Intra-op $ Given 02/25/2023 7:38 AM CDT 4 mg fentaNYL (PF) (Sublimaze) injection Intravenous, PRN, Starting on Gema 02/25/23 at 0734, Until Gema 02/25/23 at 0807, Anesthesia Intra-op $ Given 02/25/2023 7:40 AM CDT 50 mcg $ Given 02/25/2023 7:34 AM CDT 50 mcg ketorolac (Toradol) injection Intravenous, PRN, Starting on Gema 02/25/23 at 0753, Until Gema 02/25/23 at 0807, Anesthesia Intra-op $ Given 02/25/2023 7:53 AM CDT 30 mg lactated ringers infusion at 20 mL/hr, Intravenous, PRE-OP CONTINUOUS, Starting on Gema 02/25/23 at 0600, Until Gema 02/25/23 at 1025, Please place order for second bag of LR for all robotic surgeries, and all carotid endarterectomies., Pre-op Restarted 02/25/2023 7:59 AM CDT $ New Bag/Syringe 02/25/2023 7:29 AM CDT 100 mL /hr midazolam (Versed) injection Intravenous, PRN, Starting on Gema 02/25/23 at 0729, Until Gema 02/25/23 at 0807, Anesthesia Intra-op $ Given 02/25/2023 7:29 AM CDT 2 mg ondansetron (Zofran) injection Intravenous, PRN, Starting on Gema 02/25/23 at 0738, Until Gema 02/25/23 at 0807, Anesthesia Intra-op $ Given 02/25/2023 7:38 AM CDT 4 mg phenylephrine 100 mcg/mL injection Intravenous, PRN, Starting on Gema 02/25/23 at 0746, Until Gema 02/25/23 at 0807, Anesthesia Intra-op $ Given 02/25/2023 7:51 AM CDT 100 mcg $ Given 02/25/2023 7:46 AM CDT 50 mcg propofol (Diprivan) injection Intravenous, CONTINUOUS PRN, Starting on Gema 02/25/23 at 0735, Until Gema 02/25/23 at 0807, Anesthesia Intra-op Rate Change 02/25/2023 7:46 AM CDT 75 mcg/kg/min 37.575 mL/hr $ New Bag/Syringe 02/25/2023 7:35 AM CDT 100 mcg/kg/min 50 .1 mL/hr $ Given 02/25/2023 7:34 AM CDT 50 mg documented in this encounter Care Teams Supply Chain Associate Relationship Specialty Start Date End Date Celina Sifuentes MD [address] [place] [address] PCP - General Family Medicine 02/16/23 11/14/23 [place] [address] [address] [place] [phone] Surgical Oncologist Surgical Oncology 02/15/23 [place] [address] [place] [phone] Animal Breeder/Oncologist Hematology and Oncology 02/16/23 documented as of this encounter
--- OUTSIDE RECORDS SUMMARY | 2024-07-02 04:42 | XMS_ITS | Encounter Summary ---
Author Organization [facility] Address [address] [place] [address] Care Team Providers Care Bakery Team Leader Name Role Phone Unavailable Primary Care Provider Unavailabl e Reason for Visit * Reason Comments Refill Request Encounter Details Date Type Department Care Team (Late st Contact Info) Description 04/08/2021 Refill [facility] - WATCH AND CLOCK MAKER AND REPAIRER [address] [place] [address] Leatha Gupta MD [address] [place] [address] Refill Request Social History Tobacco Use Types [...] encounter Miscellaneous Notes * Telephone Encounter - Joana Guido MA CCC-A - 04/08/2021 5:21 PM CDT Last filled 05/14/2020 Last wwe 05/14/2020 Upcoming wwe 05/22/2021 documented in this encounter Plan of Treatment Upcoming Encounters Date Type Department Care Team (Late st Contact Info) Description 07/19/2024 9:45 AM RESIDENTIAL SOLAR SALES CONSULTANT Office Visit [facility] - WATCH AND CLOCK MAKER AND REPAIRER [address] [place] [address] Leatha Gupta MD [address] [place] [address] 12/11/2024 9:00 AM CDT Office Visit [facility] - Surgery [address], [address] [place] [address] [place] [address] [facility] [address] [place] [address] 12/11/2024 10:40 AM CDT Office Visit [facility] [address] [place] [address] [address] [place] [address] [place] [address] [facility] [address] [facility] [address] [place] [address] documented as of this encounter Visit Diagnoses Not on filedocumented in this encounter
--- OUTSIDE RECORDS SUMMARY | 2024-07-02 04:42 | XMS_ITS | Encounter Summary ---
Author Organization [facility] Address [address] [facility] [place] [address] Care Team Providers Care Community Relations Director Name Role Phone Naya Leonard Irving DO Unavailable [phone] Bernardo Lizarraga MD Unavailable Celina Sifuentes MD Primary Care Provider [phone] Reason for Visit * Reason Comments Sore Throat Pt reports that she had a double mastectomy yesterday; 4 drains placed. Pt reports sore throat and pus pockets in the back of her throat; is also c/o hives on her face. Denies any trouble breathing. Encounter Details Date Type Department Care Team (Late st Contact Info) Description 02/19/2023 3:58 AM CDT - 02/19/2023 6:06 AM CDT Emergency ER at [place] [id number] Angie Rodriguez MD [address] [place] [address] [address] [place], [place] [id number] Streptococcal sore throat (Primary Dx) Discharge Disposition: Home or Self Care Social [...] Sign Reading Time Taken Comments Blood Pressure 113/80 02/19/2023 5:46 AM CDT Pulse 80 02/19/2023 5:46 AM CDT Temperature 36.6 ??C (97.8 ??F) 02/19/2023 3:56 AM CD T Respiratory Rate 14 02/19/2023 5:46 AM CDT Oxygen Saturation 95% 02/19/2023 5:46 AM CDT Inhaled Oxygen Concentration - - Weight 85.3 kg (188 lb) 02/19/2023 3:56 AM CDT Height 162.6 cm (5' 4 ) 02/19/2023 3:56 AM CDT Body Mass Index 32.27 02/19/2023 3:56 AM CDT documented in this encounter Discharge Instructions * Discharge Instructions* Angie Rodriguez MD - 02/19/2023 5:14 AM CDT You were evaluated in the emergency department. You tested positive for strep throat. Please call your doctor with an update. Follow-up with General surgery as scheduled. Maintain adequate hydration.Finish your antibiotics. Practice good hand hygiene. Change your toothbrush. Return to the emergency department for high fever, inability to tolerate oral intake, trouble swallowing, trouble breathing, chest pain, neck stiffness or any concerning symptoms documented in this encounter Medications at Time of Discharge Medication Sig Dispensed Refills Start Date End Date amoxicillin (Amoxil) 500 MG capsule Take 1 (one) capsule by mouth 2 times daily for 10 days 20 capsule 02/19/2023 03/01/2023 atorvastatin (Lipitor) 20 MG tabletIndications:Hyper cholesteremia Take 1 (one) tablet by mouth at bedtime 100 tablet 4 02/06/2023 11/15/2023 HYDROcodone-acetaminoph en ([place]) 5-325 MG tabletIndications:Invas albert ductal carcinoma of breast, female, right (HCC) Take 1 (one) tablet by mouth every 6 hours as needed for Pain 20 tablet 02/18/2023 03/17/2023 Lutera 0.1-20 MG-MCG tablet TK 1 T PO QD 3 packet 4 05/26/2022 02/24/2023 documented as of this encounter ED Notes * Apurva Haynes RN - 02/19/2023 6:05 AM CDT Discharge instructions reviewed with patient. Understanding verbalized about use of prescriptions and care at home. VSS. Ambulates from ER with steady gait. * Angie Rodriguez MD - 02/19/2023 4:28 AM CDT Betina Villatoro Anneliese [id number] [facility] EM[facility] History Chief Complaint Patient presents with ??? Sore Throat Pt reports that she had a double mastectomy yesterday; 4 drains placed. Pt reports sore throat and pus pockets in the back of her throat; is also c/o hives on her face. Denies any trouble breathing. HPI 52 yo W hx R breast CA sp double mastectomy w/ sentinel lymph node biopsy, here for sore throat. Patient states she noted a mild sore throat prior to surgery. Study was related to her allergies. States she noted pain with swallowing. States she was fine after surgery but noted worsening of her sorethroat. States that evening noted have throat was red with white spots. States she was concerned that her face is getting blotchy. Denies any tongue swelling. No neck pain, neck stiffness. No fevers or chills. States given she had surgery was worried about a bacterial infection worsening her symptoms. No recent sick contacts. No myalgias. Denies smoking, EtOH, illicit drug use. Past Medical History: Diagnosis Date ??? Breast CA (CMS/HCC) Right ??? COVID 06/2021 ??? Hypothyroid ??? MVP (mitral valve prolapse) pt denies ??? PCOS (polycystic ovarian syndrome) Past Surgical History: Procedure Laterality Date ??? Bunionectomy Bilateral ??? Hemorrhoidectomy ??? MAMMO STEREOTACTIC RIGHT BIOPSY Right 01/06/2023 MAMMO STEREOTACTIC RIGHT BIOPSY 01/06/2023 [facility] NEO ??? NEEDLE BIOPSY Right 10'18 right breast 2 cyst aspirations ??? OTHER SURGERY breast cyst aspiration ??? OTHER SURGERY RIGHT SIMPLE MASTECTOMY, RIGHT SENTINEL LYMPH NODE BX, LEFT PROPHYLACTIC MASTECTOMY - Bilateral ??? US BREAST RIGHT BIOPSY Right 01/06/2023 BREAST RIGHT BIOPSY 01/06/2023 [facility] US Family History Problem Relation Name Age of [...] Never ??? Sexual activity: Yes control/protection: Pill Other Topics Concern ??? Not on file Social History Narrative ??? Not on file Social Determinants of Health Financial Resource Strain: Not on file Food Insecurity: Not on file Transportation Needs: Not on file Stress: Not on file Housing Stability: Not on file Review of Systems ROS Physical Exam BP 137/95 Pulse 81 Temp 97.8 ??F (36.6 ??C) (Oral) Resp 18 Ht 1.626 m (5' 4 ) Wt 85.3 kg (188 lb) LMP 01/23/2023 (Exact Date) SpO2 98% BMI 32.27 kg/m?? Physical Exam Constitutional: General: She is not in acute distress. Appearance: She is not ill-appearing or diaphoretic. HENT: Head: Atraumatic. Right Ear: External ear normal. Left Ear: External ear normal. Nose: Nose normal. No congestion or rhinorrhea. Mouth/Throat: Mouth: Mucous membranes are moist. Pharynx: Uvula midline. Oropharyngeal exudate and posterior oropharyngeal erythema present. No uvula swelling. Eyes: General: No scleral icterus. Extraocular Movements: Extraocular movements intact. Conjunctiva/sclera: Conjunctivae normal. Neck: Thyroid: No thyromegaly or thyroid tenderness. Vascular: Normal carotid pulses. No JVD. Trachea: Trachea normal. No tracheal tenderness or tracheal deviation. Cardiovascular: Rate and Rhythm: Normal rate and regular rhythm. Pulses: Normal pulses. Heart sounds: Normal heart sounds. Pulmonary: Effort: Pulmonary effort is normal. No respiratory distress. Breath sounds: No stridor. No wheezing. Abdominal: General: Bowel sounds are normal. Palpations: Abdomen is soft. Tenderness: There is no abdominal tenderness. Musculoskeletal: Cervical back: Neck supple. No rigidity. No muscular tenderness. Normal range of motion. Right lower leg: No edema. Left lower leg: No edema. Lymphadenopathy: Cervical: No cervical adenopathy. Skin: General: Skin is warm. Findings: Erythema present. Neurological: Mental Status: She is alert and oriented to person, place, and time. Medications Current Outpatient Medications Medication Sig Dispense Refill ??? atorvastatin (Lipitor) 20 MG tablet Take 1 (one) tablet by mouth at bedtime 100 tablet 4 ??? HYDROcodone-acetaminophen ([place]) 5-325 MG tablet Take 1 (one) tablet by mouth every 6 hours asneeded for Pain 20 tablet 0 ??? Lutera 0.1-20 MG-MCG tablet TK 1 T PO QD 3 packet 4 Procedures Procedures Lab/SPO2 Interpretation No results found for this visit on 02/19/23. No orders to display Progress Notes ED Course ED Course as of 02/19/23 0515 WedFeb 19, 2023 0459 Strep positive [CE] 0504 Results discussed with patient, no new concerns. Amendable to antibiotics and a dose of steroids. Patient has an appointment with surgery this morning. Strict return precautions given, verbalized standing, no new concerns. [CE] ED Course User Index [CE] Angie Rodriguez MD Clinical Impressions as of 02/19/23 0515 Streptococcal sore throat MDM 52-year-old woman here for sore throat Afebrile, normotensive, 90% room air, no hypoxia. Sinus rhythm monitor with a rate of 78, no ectopyper my interpretation History provided by patient and spouse Triage, nursing notes reviewed External record reviewed Differential includes strep pharyngitis, viral pharyngitis, Alfonso's angina, peritonsillar abscess Plan for labs. Will consider blood work, imaging if strep negative. Patient with no stridor, respiratory distress. Full range of motion neck. Afebrile. Plan discussed with patient spouse, no new concerns. Spoke with general surgery, Dr. Eugene, updated on patient condition and plan, no new concerns. Orders Placed This Encounter ??? STREP A SCREEN DIRECT W RFLX STREP A CULTURE Return precautions discussed. I ensured understanding of instructions utilizing teach-back. Verbalized understanding, Will follow up as discussed. Agrees with plan for discharge. No new questions or concerns. Patient stable and appropriate for outpatient follow up. Patient discharged stable. * Apurva Haynes RN - 02/19/2023 4:02 AM CDT Bed: 6 Expected date: Expected time: Means of arrival: Comments: WR documented in this encounter Plan of Treatment Upcoming Encounters Date Type Department Care Team (Late st Contact Info) Description 07/19/2024 9:45 AM BOILER TUBE BLOWER Office Visit [facility] - LEAD SQL DEVELOPER [address] [place] [address] Leatha Gupta MD [employer] [place] [address] 12/11/2024 9:00 AM CDT Office Visit [facility] - Surgery [address] [place] [address], [address] [address] Naya Leonard DO [address] [place] [address] [address] 12/11/2024 10:40 AM CDT Office Visit [facility] [address] [place] [address] Bernardo Lizarraga MD [address] [place] [address] [address] documented as of this encounter Procedures Procedure Name Priority Date/Time Associated Diagnosis Comments STREP A SCREEN DIRECT W RFLX STREP A CULTURE STAT 02/19/2023 4:33 AM CDT documented in this encounter Results * (ABNORMAL) STREP A SCREEN DIRECT W RFLX STREP A CULTURE (02/19/2023 4:33 AM CDT) Strep A Rapid Positive(A ) Negative 02/19/2023 4:57 AM CDT [facility] Microbiology ENTIRE THROAT (SURFACE REGION OF NECK) / Unknown Collection / Unknown 02/19/2023 4:33 AM CDT 02/19/2023 4:38 AM CDT Angie Rodriguez MD LAB - MICROBIOLOGY ORDERABLES [facility] [address] [place] [address] documented in this encounter Visit Diagnoses Diagnosis Streptococcal sore throat- Primary documented in this encounter Administered Medications Inactive Administered Medications - up to 3 most recent administrations Medication Order MAR Action Action Date Dose Rate Site amoxicillin (Amoxil) capsule 500 mg 500 mg, Oral, ONCE, 1 dose, On Wed02/19/23 at 0530, Indication for anti-infective therapy: Suspected infection, Site of anti-infective therapy: Upper Respiratory $ Given 02/19/2023 5:45 AM CDT 500 mg dexAMETHasone (Decadron) tablet 10 mg 10 mg, Oral, NOW, 1 dose, On Wed02/19/23 at 0515, Take large doses with meals and take antacids between meals to prevent peptic ulcer $ Given 02/19/2023 5:51 AM CDT 10 mg documented in this encounter Active and Recently Administered Medications Times are shown in CDT. Scheduled Medication Order 02/17/2023 02/18/2023 02/19/2023 amoxicillin (Amoxil) capsule 500 mg (COMPLETED) 500 mg, Oral, ONCE, 1 dose, On Wed02/19/23 at 0530, Indication for anti-infective therapy: Suspected infection, Site of anti-infective therapy: Upper Respiratory 0545 ($ Given - Prov ider: Casandra Rodriguez) dexAMETHasone (Decadron) tablet 10 mg (COMPLETED) 10 mg, Oral, NOW, 1 dose, On Wed02/19/23 at 0515, Take large doses with meals and take antacids between meals to prevent peptic ulcer 0551 ($ Given - Prov ider: Apurva Haynes RN) documented in this encounter Care Teams Community Relations Director Relationship Specialty Start Date End Date Celina Sifuentes MD [address] [place] [address] PCP - General Family Medicine 02/16/23 11/14/23 [place] [address] [address] [address] Surgical Oncologist Surgical Oncology 02/15/23 [place] [address] [address] [facility] [address] [place] [address] Community Development Technician/Oncologist Hematology and Oncology 02/16/23 documented as of this encounter
--- OUTSIDE RECORDS SUMMARY | 2024-07-02 04:42 | XMS_ITS | Encounter Summary ---
Author Organization [facility] Address [address] [place] [address] Care Team Providers Care Utilities And Maintenance Supervisor Name Role Phone Unavailable Primary Care Provider Unavailabl e Encounter Details Date Type Department Care Team (Late st Contact Info) Description 02/05/2023 9:38 AM CDT - 02/05/2023 11:59 PM CDT Hospital Encounter [facility] - Medical Imaging [address] [place] [address] Celina Sifuentes MD [address] [place] [id number] Discharge Disposition: Home or Self Care Social [...] Sig Dispensed Refills Start Date End Date HYDROcodone-acetaminophe n ([place]) 5-325 MG tabletIndications:Invasi ve ductal carcinoma of breast, female, right (HCC) Take 1 (one) tablet by mouth every 6 hours as needed for Pain 20 tablet 02/18/2023 02/18/2023 HYDROcodone-acetaminophe n ([place]) 5-325 MG tabletIndications:Invasi ve ductal carcinoma of breast, female, right (HCC) Take 1 (one) tablet by mouth every 6 hours as needed for Pain 20 tablet 02/18/2023 03/17/2023 Lutera 0.1-20 MG-MCG tablet TK 1 T PO QD 3 packet 4 05/26/2022 02/24/2023 documented as of this encounter Plan of Treatment Upcoming Encounters Date Type Department Care Team (Late st Contact Info) Description 07/19/2024 9:45 AM INSPECTOR ELEVATORS Office Visit [facility] - LEATHER STRIPPING MACHINE 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 [place] [phone] Bernardo Lizarraga [place] [id number] [place] [address] documented as of this encounter Procedures Procedure Name Priority Date/Time Associated Diagnosis Comments XR HAND BILAT 2VW Routine 02/05/2023 10: 04 AM CDT Stiffness of hand joint, unspecified laterality documented in this encounter Results * XR [...] Celina Sifuentes MD DIAGNOSTIC IMAGIN G ORDERABLES documented in this encounter Visit Diagnoses Diagnosis Stiffness of hand joint, unspecified laterality documented in this encounter
--- OUTSIDE RECORDS SUMMARY | 2024-07-02 04:42 | XMS_ITS | Encounter Summary ---
Author Organization [facility] Address [address] [place] [address] Care Team Providers Care Sfdc Technical Architect Name Role Phone Unavailable Primary Care Provider Unavailabl e Reason for Referral * Radiology Services (Routine) - Closed Specialty Diagnoses / Procedures Referred By Contac t Referred To Contact Mammography Diagnoses Encounter for screening mammogram for malignant neoplasm of breast Procedures MAMMO BILAT SCREENING W Leatha Mendoza MD [address] [place] [address] [facility] [place] [id number] Referral ID Status Reason Start Date Expiration Date Visits Re quested Visits Authorized [id number] Closed 12/22/2021 12/22/2022 1 1 Reason for Visit * Radiology Services (Routine) - Closed Specialty Diagnoses / Procedures Referred By Contac t Referred To Contact Mammography Diagnoses Encounter for screening mammogram for malignant neoplasm of breast Procedures MAMMO BILAT SCREENING W Leatha Mendoza MD [address] [place] [address] [facility] [place] [id number] [address] Referral ID Status Reason Start Date Expiration Date Visits Re quested Visits Authorized [id number] Closed 12/22/2021 12/22/2022 1 1 Encounter Details Date Type Department Care Team (Late Contact Info) Description 12/24/2021 9:10 AM CDT - 12/24/2021 11:59 PM CDT Hospital Encounter [facility] Breast Care [address] [facility] [address] [place] [address] Leatha Gupta MD [address] [place] [address] Discharge Disposition: Home or Self [...] (Late Contact Info) Description 07/19/2024 9:45 AM CARTOON DESIGNER Office Visit [facility] - TECHNICAL TRAINING COORDINATOR [address] [place] [address] Leatha Gupta MD [address] [place] [address] 12/11/2024 9:00 AM CDT Office Visit [facility] - Surgery [address] [facility], [address] [place] [address] [place] [address] [address] [place] [address] 12/11/2024 10:40 AM CDT Office Visit [facility] [address] [place] [address] [address] [place] [address] [place] [address] [facility] [address] [place] [address] documented as of this encounter Procedures Procedure Name Priority Date/Time Associated Diagnosis Comments MAMMO BILAT SCREENING W DONALD Routine 12/24/2021 9:30 AM CDT Encounter for screening mammogram for malignant neoplasm of breast documented in this encounter Results * MAMMO BILAT SCREENING W DONALD (12/24/2021 [...] posterior depth. Leatha Gupta MD MAMMO ORDERABLES documented in this encounter Visit Diagnoses Diagnosis Encounter for screening mammogram for malignant neoplasm of breast Other screening mammogram documented in this encounter
--- OUTSIDE RECORDS SUMMARY | 2024-07-02 04:42 | XMS_ITS | Encounter Summary ---
Author Organization [facility] Address [address] [place] [address] Care Team Providers Care Commercial Leasing Manager Name Role Phone Naya Leonard DO Unavailable [phone] Bernardo Lizarraga MD Unavailable [phone] Celina Sifuentes MD Primary Care Provider [phone] Reason for Visit * Auth/Cert (Routine) Specialty Diagnoses / Procedures Referred By Sherie jacobo Referred To Contact Procedures MASTECTOMY SIMPLE COMPLETE Referral ID Status Reason Start Date Expiration Date Visits Re quested Visits Authorized [id number] 1 1 Encounter Details Date Type Department Care Team (Late st Contact Info) Description 02/18/2023 9:00 AM CDT - 02/18/2023 11:39 AM CDT Surgery Formerly [facility] - Perioperative Surgery [address] [place] [address] [place] [address] [phone] RIGHT SIMPLE MASTECTOMY, RIGHT SENTINEL LYMPH NODE BX, LEFT PROPHYLACTIC MASTECTOMY Surgery Details Date/Time Status Location OR Service Patient Class Case Class Case Type Trauma Case? 02/18/2023 9:00 AM Posted [facility] MAIN OR OR 03 General Surgery Day Care Elective > 5 days Panel 1 Procedure LRB Anes Op Region Wound Class Comments RIGHT SIMPLE MASTECTOMY, RIG HT SENTINEL LYMPH NODE BX, LEFT PROPHYLACTIC MASTECTOMY Bilateral General Breast Clean Surgeon Surgeon Role Service Panel Naya Leonard DO Primary General 1 Special Needs NUC MED INJ 8:00 documented in this encounter Social History Tobacco [...] Sign Reading Time Taken Comments Blood Pressure 135/76 02/18/2023 6:45 AM CDT Pulse 79 02/18/2023 6:45 AM CDT Temperature 36.8 ??C (98.2 ??F) 02/18/2023 6:45 AM CD T Respiratory Rate 18 02/18/2023 6:45 AM CDT Oxygen Saturation 98% 02/18/2023 6:45 AM CDT Inhaled Oxygen Concentration - - [...] 100 tablet 4 02/06/2023 11/15/2023 HYDROcodone-acetaminoph en ([place]) 5-325 MG tabletIndications:Invas albert ductal carcinoma of breast, female, right (HCC) Take 1 (one) tablet by mouth every 6 hours as needed for Pain 20 tablet 02/18/2023 03/17/2023 Lutera 0.1-20 MG-MCG tablet TK 1 T PO QD 3 packet 4 05/26/2022 02/24/2023 documented as of this encounter Progress Notes * Angella Silver RN - 02/18/2023 7:18 AM CDT Called Nuc Med and spoke with Sy - pt is [...] o'clock position revealed an infiltrating ductal carcinoma ER/NM positive, HER2/brittany negative with low KI 67. Thecalcifications revealed DCIS, ER/NM positive. Patient underwent breast MRI which showed [...] BOTH breasts was performed by a trained beader tender and by Dr. Maddi Landeros. BREAST PARENCHYMAL [...] will be scheduled to return to the [facility] for biopsy . > Interpreting Provider: [...] contiguous extent (minimum tumor size) ?? -- Ono grade 1 of 3 ?? -- Moderate [...] ER: Positive ( 70 %, moderate intensity) NM: Positive ( 90 %, strong intensity) Her-2-brittany: Not over-expressed (score 1+) Ki-67: Low proliferation/favorable ( 3 %) ?? Specimen B (right breast calcifications): ER: Positive ( >95 %, strong intensity) NM: Positive ( 50 %, moderate intensity) Assessment: [...] o'clock position revealed an infiltrating ductal carcinoma ER/NM positive, HER2/brittany negative with low KI 67. Thecalcifications revealed DCIS, ER/NM positive. Patient underwent breast MRI which showed [...] BOTH breasts was performed by a trained beader tender and by Dr. Maddi Landeros. BREAST PARENCHYMAL [...] be scheduled to return to the [facility] for biopsy . > Interpreting Provider: [...] contiguous extent (minimum tumor size) ?? -- Ono grade 1 of 3 ?? -- Moderate [...] ER: Positive ( 70 %, moderate intensity) NM: Positive ( 90 %, strong intensity) Her-2-brittany: Not over-expressed (score 1+) Ki-67: Low proliferation/favorable ( 3 %) ?? Specimen B (right breast calcifications): ER: Positive ( >95 %, strong intensity) NM: Positive ( 50 %, moderate intensity) Assessment: [...] Leonard DO - 02/18/2023 9:14 AM CDT Morton Node Biopsy for Breast Cancer - Right [...] Left Prophylactic Mastectomy Surgeon: Naya Leonard DO Suture Winder Hand: Lynn CALVIN Type of anesthesia: General Complications: None EBL: 300 cc Drains: CHANI subcutaneous Bilateral flank Brief findings: left breast removed, oozing from flaps noted and controled with bovie and surgicel powder, right breast removed without issues, right sentinel lymph node removed Specimens: 1. Right Breast-stitch in axillary tail 2. Right Morton Lymph Node 3. Left Breast-stitch in axillary [...] cavity. When hemostasis was obtained, two 19 iranian CHANI drains were placed in the Left [...] cavity. When hemostasis was obtained, two 19 iranian CHANI drains were placed in the Right [...] st Contact Info) Description 07/19/2024 9:45 AM ENGINEERING PROGRAM MANAGER Office Visit [facility] - FAST FOOD SHIFT SUPERVISOR [address] [place] [phone] Leatha Gupta MD [address] [place] [phone] 12/11/2024 9:00 AM CDT Office Visit [facility] - Surgery [address] [facility], [address] [place] [address] [place] [address] [address] [facility] [facility] [address] [place] [address] 12/11/2024 10:40 AM CDT Office Visit [facility] Cancer Care [address] [place] [address] [address] [place] [address] [place] [address] [address] [facility] [address] [place] [address] documented as of this encounter Procedures Procedure Name Priority Date/Time Associated Diagnosis Comments PATHOLOGY TISSUE EXAM (STL) Routine 02/18/2023 9:17 AM CDT Diagnosis unknown NM MAST SMPL COMPL 02/18/2023 8: 36 AM CDT Special Needs NUC MED INJ 8:00 HCG URINE QUALITATIVE STAT 02/18/2023 6:36 AM CDT Preoperative examination documented in this encounter Results * PATHOLOGY TISSUE EXAM (STL) (02/18/2023 9:17 AM CDT) Case Report Surgical Pathology Report ? Case: [id number] ? Authorizing Provider: ??Naya Leonard, DO ? Collected: ? 02/18/2023 09:17 AM ? Ordering Location: ? [facility] ?Received: ?02/18/2023 11:12 AM ? Pathologist: ? Sarah Blount MD ? Specimens: ?? A) - Breast, left breast stitch chanda axillary tail ? B) - Breast, right breast stitch chanda axillary tail ? C) - Morton Lymph Node, right breast sentinel lymph node [...] metastatic carcinoma (0/1) 03/09/2023 5:28 PM CDT [facility] Addendum 2 See attached report. 03/09/2023 5:28 PM CDT [facility] Addendum electronically signed by Mallory Mina [...] in a separate report. 03/09/2023 5:28 PM CDT [facility] Addendum electronically signed by Sarah Blount MD on 03/01/2023 at 1:12 PM Clinical History Clinical history: Right breast cancer Procedure/operative findings: Right mastectomy and right sentinel lymph node biopsy, left prophylactic mastectomy 03/09/2023 5:28 PM CDT [facility] Frozen Section Pathologist(s ) Kartik Lopez, Ph.D. 03/09/2023 5:28 PM CDT [facility] Gross Description Received in formalin in container A labeled Betina Coy left breast stitch axillary tail, is a [...] lesions. There are no gross lymph nodes. [facility] sections are submitted as follows: A1 - [...] in container B in formalin labeled Betina Coy, right breast stitch axillary tail, is a [...] adipose tissue with no additional biopsy sites. [facility] sections are submitted as follows: B1 - [...] in container C in formalin labeled Betina Rolandok, right breast sentinel lymph node, is a 1.5 x 1 x 0.2 cm blue-stained lymph node. The lymph node is trisected and entirely submitted in cassette C1. The specimen was collected and placed in fixative at 10:54 a.m. on 02/18/23. [facility] 03/09/2023 5:28 PM CDT [facility] Microscopic Description A. Sections of the [...] for malignant epithelial cells. 03/09/2023 5:28 PM [facility] Disclaimer All histochemical and/or immunohistochemical results are interpreted with controls that demonstrate appropriate staining reactions before reporting results. Note on use of immunocytochemistry reagents: This test was developed and its performance characteristic determined by [facility], Department of Laboratory Medicine. It has [...] be interpreted with caution. 03/09/2023 5:28 PM [facility] Synoptic Report INVASIVE CARCINOMA OF THE BREAST: Resection INVASIVE CARCINOMA OF THE BREAST: COMPLETE EXCISION - B, C 8th Edition - Protocol posted: 09/30/2022 SPECIMEN ?? Procedure: ?Total mastectomy ?? Specimen Laterality: ?Right TUMOR ?? Histologic Type: ?Invasive carcinoma of no special type (ductal) ?? Histologic Grade (Ono Histologic Score): ? Glandular (Acinar) / Tubular [...] (sentinel and non-sentinel): ?1 ? Number of Morton Nodes Examined: ?1 pTNM CLASSIFICATION (AJCC 8th [...] N Suffix: ?(sn) 03/09/2023 5:28 PM CDT [facility] Embedded Images 03/09/2023 5:28 PM CDT [facility] Pathology/Cytology ENTIRE BREAST / Unknown 02/18/2023 9:17 AM CDT 02/18/2023 11:12 AM CDT Miscellaneous samples (specimen) ENTIRE BREAST / Unknown 02/18/2023 10:51 AM CDT 02/18/2023 11:12 AM CDT Miscellaneous samples (specimen) SPECIMEN FROM SENTINEL LYMPH NODE / Unknown 02/18/2023 10:54 AM CDT 02/18/2023 11:12 AM CDT Naya Leonard DO LAB - PATHOLOGY/CYTO LOGY ORDERABLES Performing Organization Address City/[facility]/ZIP Co de Phone Number [facility] [address] [place] [address] * HCG URINE QUALITATIVE (02/18/2023 6:36 AM CDT) hCG Qualitative Urine Negative Negative 02/18/2023 6:50 AM CDT [facility] Urine URINE / Unknown Collection / Unknown 02/18/2023 6:36 AM CDT 02/18/2023 6:40 AM CDT Kaila Jamison DO LAB - URINALYSIS ORD ERABLES Performing Organization Address [facility] Co de Phone Number [facility] [address] [place] [address] documented in this encounter Visit Diagnoses Not [...] irrigation solution CONTINUOUS PRN, Starting on Gema 02/18/23 at 0941, Until Gema 02/18/23 at 1143, Intra-op $ New Bag/Syringe 02/18/2023 10:40 AM CDT 1,000 mL Operative Site $ New Bag/Syringe 02/18/2023 9:41 AM CDT 1,000 mL Operative Site acetaminophen (Tylenol) tablet 1,000 [...] at 1207, Until Gema 02/18/23 at 1608, For wheezing. Notify anesthesia immediately., PACU BUPivacaine 0.25% - EPINEPHrine 1:200,000 (PF) injection PRN, Starting on Gema 02/18/23 at 1056, Until Gema 02/18/23 at 1143, Intra-op $ Given 02/18/2023 10:56 AM CDT 30 mL Operative Site BUPivacaine liposome (Exparel) 1.3 % injection PRN, Starting on Gema 02/18/23 at 1056, Until Gema 8 at 1143, Intra-op $ Given 02/18/2023 10:56 AM CDT 20 mL Operative Site ceFAZolin (Ancef) 2 g in 0.9% [...] at 1207, Until Gema 02/18/23 at 1608, Third choice, use if first and second choice was ineffective., PACU fentaNYL (PF) (Sublimaze) injection 25 mcg 25 mcg, Intravenous, EVERY 10 MIN PRN, Mild Pain, 4 doses, Starting on Gema 02/18/23 at 1207, Until Gema 8/23 at 1237, Maximum total of 4 doses. [...] 180, DBP greater than 100., PACU HYDROcodone-acetaminophen ([place]) 5-325 MG tablet 1 tablet 1 tablet, [...] Gema 02/18/23 at 1608, Maximum total of 4 doses [...] on Gema 02/18/23 at 1245, Until Gema 02/18/23 at 1608, [...] Given 02/18/2023 6:44 AM CDT 0.2 mL methylene blue injection PRN, Starting on Gema 02/18/23 at 0910, Until Gema 02/18/23 at 1143, Intra-op $ Given 02/18/2023 9:10 AM CDT 5 mL Operative Site morphine injection 2 mg 2 mg, Intravenous, [...] Gema 02/18/23 at 1608, First choice, PACU Oxidized Cellulose PADS PRN, Starting on Gema 02/18/23 at 0941, Until Gema 02/18/23 at 1143, Intra-op $ Given 02/18/2023 10:07 AM CDT 1 Each Right Chest $ Given 02/18/2023 9:41 AM CDT 1 Each Le ft Chest prochlorperazine (Compazine) injection 10 mg 10 mg, [...] at 0616, Until Gema 8 at 1608, Administer 30 minutes prior to surgical incision., Indication for anti-infective therapy: Surgical prophylaxis, Pre-op 0844 ($ New Bag/Syri nge - Provider: Janell Ghotra APRN-HAMMERER) hydrALAZINE (Apresoline) injection 5 mg 5 mg, Intravenous, POST-OP MULTIPLE, Starting on Gema 02/18/23 at 1207, Until Gema 02/18/23 at 1608, IV given slowly over 1 minute, up to 20 mg. Repeat 5 mg IV dose every 10-15 minutes for sustained hypertension SBP greater than 180, DBP greater than 100., PACU HYDROcodone-acetaminophen ([place]) 5-325 MG tablet 1 tablet (COMPLETED) 1 [...] 0644 ($ Given - Prov ider: Cris Guevraa RN) naloxone (Narcan) injection 0.04 mg 0.04 [...] on Gema 8 at 1245, Until Gema 8 at 1608, PACU 1245 (Due) PRN Medication Order 02/16/2023 02/17/2023 02/18/2023 0.9% NaCl injection 1-10 mL(Linked Group 1) 1-10 mL, Intracatheter, PRN, Other, peripheral line flush, Starting on Gema 8 at 0616, Until Gema 823 at 1608, Flush peripheral IV catheter with 1-10 mL of normal saline before and after medications and prn to clear blood from the line or to verify patency., Pre-op 0.9% nacl irrigation solution (COMPLETED) CONTINUOUS PRN, Starting on Gema 8 at 0941, Until Gema 8 at 1143, Intra-op 0941 ($ New Bag/Syri [...] on Gema 8 at 1056, Until Gema 823 at 1143, Intra-op 1056 ($ Given - Prov ider: Naya Leonard DO) BUPivacaine liposome (Exparel) 1.3 % injection (CANCELED) PRN, Starting on Gema 8 at 1056, Until Gema 8 at 1143, Intra-op 1056 ($ Given - Prov ider: Naya Leonard DO) diphenhydrAMINE (Benadryl) injection 25 mg 25 mg, Intravenous, ONCE PRN, Nausea/Vomiting, 1 dose, Starting on Gema 8 at 1207, Until Gema 823 at 1608, Third choice, use if first and second choice was ineffective., PACU fentaNYL (PF) (Sublimaze) injection 25 mcg (COMPLETED) 25 mcg, Intravenous, EVERY 10 MIN PRN, Mild Pain, 4 doses, Starting on Gema 8 at 1207, Until Gema 823 at 1237, Maximum total of 4 doses. [...] Marquez RN)1215 ($ Given - Provider: Chandana Marquez RN)1225 ($ Given - Provider: Chandana Marquez RN)1237 ($ Given - Provider: Chandana Marquez RN) HYDROmorphone (Dilaudid) injection 0.5 mg 0.5 mg, Intravenous, EVERY 10 MIN PRN, Severe Pain, 4 doses, Starting on Gema 823 at 1207, Until Gema 8 at 1608, [...] blue injection (CANCELED) PRN, Starting on Gema 8 at 0910, Until Gema 8 at 1143, Intra-op 0910 ($ Given - Prov ider: Naya Leonard DO) morphine injection 2 mg 2 mg, Intravenous, EVERY 15 MIN PRN, Moderate Pain, 5 doses, Starting on Gema 823 at 1207, Until Gema 823 at 1608, Maximum total of 5 doses. [...] Gema 02/18/23 at 1608, First choice, PACU Oxidized Cellulose PADS (CANCELED) PRN, Starting on Gema 02/18/23 at 0941, Until Gema 02/18/23 at 1143, Intra-op 0941 ($ Given - Prov ider: Naya Leonard, DO - Comment: surgicel powder - left breast)1007 ($ Given - Provider: Naya Leonard, DO - Comment: right chest - surgicel [...] Pre-op documented in this encounter Care Teams Commercial Leasing Manager Relationship Specialty Start Date End Date Celina Sifuentes MD [address] [place] [phone] PCP - General Family Medicine 02/16/23 11/14/23 [place] [address] [address] [facility] [address] [place] [phone] Surgical Oncologist Surgical Oncology 02/15/23 [place] [address] [address] [facility] [address] [place] [phone] Military Pay Technician/Oncologist Hematology and Oncology 02/16/23 documented as of this encounter
--- OUTSIDE RECORDS SUMMARY | 2024-07-02 04:42 | XMS_ITS | Encounter Summary ---
Author Organization [facility] Address [address] [place] [address] Care Team Providers Care Network Communications Engineer Name Role Phone Priya Mora MD Primary Care Provider Reason for Visit * Reason Comments Refill Request Encounter Details Date Type Department Care Team ([facility] Contact Info) Description 02/16/2020 Refill [facility] - OUTSIDE COLLECTOR [address] [place] [address] Leatha Gupta MD [address] [place] [address] Refill Request Social History Tobacco [...] Upcoming Encounters Date Type Department Care Team ([facility] Contact Info) Description 07/19/2024 9:45 AM PRODUCTION CHECKER Office Visit [facility] - OUTSIDE COLLECTOR [address] [place] [phone] Leatha Gupta MD [address] [place] [address] 12/11/2024 9:00 AM CDT Office Visit [facility] - Surgery [address] [facility], [address] [place] [address] [place] [address] [address] [facility] [address] [place] [phone] 12/11/2024 10:40 AM CDT Office Visit [facility] Cancer Care [address] [facility] [address] [place] [address] [place] [address] [facility] [address] [place] [address] documented as of this encounter Visit Diagnoses Not on filedocumented in this encounter Care Teams Network Communications Engineer Relationship Specialty [place] [address] [address] [facility] [address] [place] [phone] PCP - General Family Medicine 09/07/13 05/13/20 documented as of this encounter
--- OUTSIDE RECORDS SUMMARY | 2024-07-02 04:42 | XMS_ITS | Encounter Summary ---
Author Organization [facility] Address [address] [facility] [place] [address] Care Team Providers Care Meter Repair Shop Supervisor Name Role Phone Unavailable Primary Care Provider Unavailabl e Reason for Referral * Radiology Services (Routine) - Closed Specialty Diagnoses / Procedures Referred By Contac t Referred To Contact Diagnoses S/P breast biopsy, right Procedures MAMMO RIGHT POST CLIP OR WIRE Leatha Gupta MD [address] [address] Referral ID Status Reason Start Date Expiration Date Visits Re quested Visits Authorized [id number] Closed 01/06/2023 01/06/2024 1 1 Reason for Visit * Radiology Services (Routine) - Closed Specialty Diagnoses / Procedures Referred By Contac t Referred To Contact Diagnoses S/P breast biopsy, right Procedures MAMMO RIGHT POST CLIP OR WIRE Leatha Gupta MD [address] [place] [address] Referral ID Status Reason Start Date Expiration Date Visits Re quested Visits Authorized [id number] Closed 01/06/2023 01/06/2024 1 1 Encounter Details Date Type Department Care Team (Latest Contact Info) Description 01/06/2023 9:58 AM CDT - 01/06/2023 11:59 PM CDT Hospital Encounter [facility] Breast Care [address] [place] [address] Discharge Disposition: Home or Self Care Social [...] st Contact Info) Description 07/19/2024 9:45 AM CAR PUSHER Office Visit [facility] - FLOATING OPERATOR [address] [place] [phone] Leatha Gupta MD [address] [place] [address] 12/11/2024 9:00 AM CDT Office Visit [facility] - Surgery [address] [place] [address], [address] [phone] [place] [address] [facility] [address] [phone] 12/11/2024 10:40 AM CDT Office Visit [facility] Cancer Care [address] [place] [phone] [place] [id number] [place] [address] [phone] documented as of this encounter Procedures Procedure Name Priority Date/Time Associated Diagnosis Comments MAMMO RIGHT POST CLIP OR WIRE Routine 01/06/2023 11:31 AM CDT S/P breast biopsy, right documented in this encounter Results * MAMMO RIGHT POST CLIP OR WIRE [...] documented in this encounter Visit Diagnoses Diagnosis S/P breast biopsy, right Other postprocedural status documented in this encounter
--- OUTSIDE RECORDS SUMMARY | 2024-07-02 04:42 | XMS_ITS | Encounter Summary ---
Author Organization [facility] Address [address] [place] [address] Care Team Providers Care Beam Carrier Hauler Pusher Name Role Phone Unavailable Primary Care Provider Unavailabl e Reason for Visit * Reason Onset Date Comments Question 01/13/2023 Encounter Details Date Type Department Care Team (Late st Contact Info) Description 01/13/[address] [facility] - TELECOM ANALYST [address] [place] [address] Leatha Gupta MD [address] [place] [address] Question Social History Tobacco Use Types Packs/Day [...] encounter Miscellaneous Notes * Telephone Encounter - Kaitlin Carballo MD - 01/15/2023 6:13 PM CDT Called pt back at 1600. She reports getting a letter stating she should f/u w/Dr. Gupta, received between her abnormal mamm and biopsy results. Wants to know what she should do and if needs appt now. Advised pt to my knowledge I'm not aware of anything supplemental that is needed from general BLAST SETTER pertaining to breast cancer. Keep MRI appt and appt w/Dr. Leonard. Pt voices understanding and denies other ?S/concerns. * Telephone Encounter - Antonia Huerta RN - 01/13/2023 9:36 AM CDT Pt called in stating she has been diagnosed with Breast Cancer, Pt has questions about her diagnoses. Pt scheduled 01/27 for MRI ordered by Dr. Leonard. Pt schedule to see Dr. Avalos's on 02/01/2023. Pt wanting to have MRI sooner, suggested Pt call Dr. Avalos's office to see if they could try to get her insomewhere else sooner. Last WWE 06/02 Last Pap 2017. documented in this encounter Plan of Treatment Upcoming Encounters Date Type Department Care Team (Late st Contact Info) Description 07/19/2024 9:45 AM MUSIC INDUSTRY INTERN Office Visit [facility] - TELECOM ANALYST [address] [place] [address] Leatha Gupta MD [address] [place] [address] 12/11/2024 9:00 AM CDT Office Visit [facility] - Surgery [address] [facility], [address] [place] [address] [place] [address] [address] [facility] [address] [place] [address] 12/11/2024 10:40 AM CDT Office Visit [facility] Cancer Care [address] [place] [address] [address] [place] [address] [place] [address] [address] [place] [phone] documented as of this encounter Visit Diagnoses Not on filedocumented in this encounter
--- OUTSIDE RECORDS SUMMARY | 2024-07-02 04:42 | XMS_ITS | Encounter Summary ---
Author Organization [facility] Health Address [address] [facility] [place] [address] Care Team Providers Care Conference And Event Organiser Name Role Phone Unavailable Primary Care Provider Unavailabl e Reason for Visit * Radiology Services (Routine) - Closed Specialty Diagnoses / Procedures Referred By Contac t Referred To Contact Diagnoses Encounter for screening mammogram for malignant neoplasm of breast Procedures US BREAST BILATERAL LTD US BREAST LEFT LTD Leatha Gupta MD [address] [place] [address] Referral ID Status Reason Start Date Expiration Date Visits Re quested Visits Authorized [id number] Closed 12/30/2022 12/30/2023 1 1 Encounter Details Date Type Department Care Team (Latest Contact Info) Description 12/30/2022 9:07 AM CDT - 12/30/2022 11:59 PM CDT Hospital Encounter [facility] Health Imaging Services - Ultrasound [address] [place] [address] Discharge Disposition: Home or Self Care [...] st Contact Info) Description 07/19/2024 9:45 AM PERFECT BINDER FEEDER OFFBEARER Office Visit [facility] - CLAY MACHINE OPERATOR [address] [place] [address] Leatha Gupta MD [address] [place] [address] 12/11/2024 9:00 AM CDT Office Visit [facility] - Surgery [address] [place] [address], [address] [address] [place] [address] [facility] [address] [address] 12/11/2024 10:40 AM CDT Office Visit [facility] [address] [place] [address] [place] [id number] [place] [address] documented as of this encounter Procedures Procedure Name Priority Date/Time Associated Diagnosis Comments US BREAST BILATERAL LTD Routine 12/30/2022 10:38 AM CDT Encounter for screening mammogram for malignant neoplasm of breast documented in this encounter Results * US BREAST BILATERAL LTD (12/30/2022 10:38 [...] will be scheduled to return to the [facility] for biopsy . > Interpreting [...] BOTH breasts was performed by a trained plastic fabricator and by Dr. Maddi Landeros. BREAST PARENCHYMAL [...] hypoechoic mass. Leatha Gupta MD US ORDERABLES documented in this encounter Visit Diagnoses Diagnosis Encounter for screening mammogram for malignant neoplasm of breast Other screening mammogram documented in this encounter
--- OUTSIDE RECORDS SUMMARY | 2024-07-02 04:42 | XMS_ITS | Encounter Summary ---
Author Organization [facility] Address [address] [facility] [place] [address] Care Team Providers Care Mechanical Adjuster Name Role Phone Naya Leonard Irving DO Unavailable [phone] Bernardo Lizarraga MD Unavailable [phone] Celina Sifuentes MD Primary Care Provider [phone] Keisha Pineda Primary Care Pr ovider Encounter Details Date Type Department Care Team (Late st Contact Info) Description 02/24/2023 [facility] Outpatient Visit [facility] Cancer Care [address] [place] [address] [place] [id number] [place] [address] Social History Tobacco Use Types Packs/Day [...] st Contact Info) Description 07/19/2024 9:45 AM VOLLEYBALL REFEREE Office Visit [facility] - MOTORCYCLE MAKER [address] [place] [address] Leatha Gupta MD [address] [facility] [address] 12/11/2024 9:00 AM CDT Office Visit [facility] - Surgery [address] [facility], [address] [place] [address] [place] [address] [address] 12/11/2024 10:40 AM CDT Office Visit [facility] Cancer Care [address] [place] [address] [address]. [address] [place] [address] [place] [address] [facility] [address] [place] [address] documented as of this encounter Visit Diagnoses Not on filedocumented in this encounter Care Teams Mechanical Adjuster Relationship Specialty Start Date End Date Celina Sifuentes MD [address] [facility] [place] [address] PCP - General Family Medicine 02/16/23 11/14/23 Keisha Pineda PA [address] [place] [id number] PCP - General Physician Receptionist Secretary 11/15/23 [place] [address] [address] Surgical Oncologist Surgical Oncology 02/15/23 [place] [address] [place]RIE [address] [place] [phone] Molecular Geneticist/Oncologist Hematology and Oncology 02/16/23 documented as of this encounter
--- OUTSIDE RECORDS SUMMARY | 2024-07-02 04:42 | XMS_ITS | Encounter Summary ---
Author Organization [facility] Address [address] [place] [address] Care Team Providers Care Mechanical Door Repairer Name Role Phone Unavailable Primary Care Provider Unavailabl e Reason for Visit * Reason Onset Date Comments Question 01/19/2023 Needs MRI order Encounter Details Date Type Department Care Team (Late Contact Info) Description 01/19/2023 Telephone [facility] - Surgery [address] [place] [address] [place] [address] [address] Question (Needs MRI order) Social History Tobacco Use Types Packs/Day Years [...] (Late Contact Info) Description 07/19/2024 9:45 AM FURNACE LOADER Office Visit [facility] - REGULATORY SPECIALIST [address] [phone] Leatha Gupta MD [address] [place] [address] 12/11/2024 9:00 AM CDT Office Visit [facility] - Surgery [address] [facility], [address] [place] [address] [place] [address] [address] [address] 12/11/2024 10:40 AM CDT Office Visit [facility] Cancer Care [address] [place] [address] [address]. [address] [place] [address] [place] [address] [facility] [address] [place] [phone] documented as of this encounter Visit Diagnoses Not on filedocumented in this encounter
--- OUTSIDE RECORDS SUMMARY | 2024-07-02 04:42 | XMS_ITS | Encounter Summary ---
Author Organization [facility] Address [address] [facility] [place] [address] Care Team Providers Care Rn Intake Name Role Phone Unavailable Primary Care Provider Unavailabl e Reason for Referral * Radiology Services (Routine) - Closed Specialty Diagnoses / Procedures Referred By Contac t Referred To Contact Diagnoses Mass of right breast, unspecified quadrant Procedures NM [place] [address] [address] [place] [phone] [facility] [address] [place] [address] Referral ID Status Reason Start Date Expiration Date Visits Re quested Visits Authorized [id number] Closed 02/02/2023 02/02/2024 1 1 * Consultation (Routine) - Closed Specialty Diagnoses / Procedures Referred By Contac t Referred To Contact Hematology / Oncology-Medical Diagnoses Mass of right breast, [place] [address] [address] [place] [address] [place] [address] [address] [place] [phone] Referral ID Status Reason Start Date Expiration Date V isits Requested Visits Authorized [id number] Closed Specialty Services Required 02/02/2023 02/02/2024 1 1 * Consultation (Routine) - Closed Specialty Diagnoses / Procedures Referred By Sherie jacobo Referred To Contact Diagnoses Mass of right breast, [place] [address] [address] [place] [address] Claribel Lima, [address] [place] [address] Referral ID Status Reason Start Date Expiration Date V isits Requested Visits Authorized [id number] Closed Specialty Services Required 02/02/2023 02/02/2024 1 1 Reason for Visit * Reason Comments Evaluation Breast ca Encounter Details Date Type Department Care Team (Late st Contact Info) Description 01/25/2023 9:00 AM CDT Office Visit [facility] - Surgery [address] [facility], [address] [place] [address] [place] [address] [address] [place] [address] Mass of right breast, unspecified quadrant (Primary Dx) Social History Tobacco Use Types [...] - - Weight 93 kg (205 lb) 01/25/2023 8:43 AM CDT Height 162.6 cm (5' 4 ) 01/25/2023 8:43 AM CDT Body Mass Index 35.19 01/25/2023 8:43 AM CDT documented in this encounter Patient Instructions * Patient Instructions* Louis Alexis - 01/25/2023 8:43 AM CDT Patient's medications and allergies were reviewed with the patient today. Patient was instructed tocontact primary care physician or ordering provider with any questions regarding medications. Patient Name: Betina Coy Your procedure has been scheduled for: Date: 02/18/23 Approximate ARRIVAL TIME: 6:00 AM You will be notified by the hospital regarding your exact arrival time. Surgeon: Place: [] Ovi Rose M.D. [x] [facility] 2nd Floor [facility]. [] Mukund Azevedo M.D. [] [facility] [] Ernesto Melendez M.D. Ground Floor/[facility]. [] Dior Heard M.D. [] [facility] [] Pelon Gonzalez M.D First Floor Main Entrance [x] Naya Leonard D.O. [] Rickey Frost M.D. [] Mahesh Eugene D.O. [] Saroj Bennett M.D. [] Tonio Waite D.O. [] Barndon Hudson M.D. [] Elaine Mckeon M.D. INSTRUCTIONS: [x] Nothing to eat or drink after midnight. [x] Do take heart, blood pressure, or breathing medications with a sip of water the morning of surgery [x] You will be having OUTPATIENT SURGERY. You will need someone to drive you home. 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 Thecalcifications revealed DCIS, ER/IA positive. Patient underwent breast MRI which showed [...] cancer. Past Medical History: Diagnosis Date ??? COVID [...] [facility] No Known Allergies No outpatient medications have been marked as taking for the 01/25/23 encounter (Appointment) with Naya Leonard DO. Social History Tobacco Use ??? Smoking status: [...] BOTH breasts was performed by a trained tire inspector and by Dr. Maddi Landeros. BREAST PARENCHYMAL [...] be scheduled to return to the [facility] for biopsy . > Interpreting Provider: [...] contiguous extent (minimum tumor size) ?? -- [place] grade 1 of 3 ?? -- Moderate [...] ER: Positive ( 70 %, moderate intensity) IA: Positive ( 90 %, strong intensity) Her-2-brittany: Not over-expressed (score 1+) Ki-67: Low proliferation/favorable ( 3 %) ?? Specimen B (right breast calcifications): ER: Positive ( >95 %, strong intensity) IA: Positive ( 50 %, moderate intensity) Assessment: [...] as genetic testing. documented in this encounter Plan of Treatment Upcoming Encounters Date Type Department Care Team (Late st Contact Info) Description 07/19/2024 9:45 AM CHAR FILTER OPERATOR HELPER Office Visit [facility] - REMOTE CODERS [address] [place] [address] Leatha Gupta MD [address] [place] [phone] 12/11/2024 9:00 AM CDT Office Visit [facility] - Surgery [address] [place] [address], [address] [place] [phone] Naya Leonard DO [address] [place] [address] [address] [place] [address] 12/11/2024 10:40 AM CDT Office Visit [facility] [address] [facility] [address] [place] [phone] [place] [address] [facility] [address] [place] [phone] Scheduled Referrals Name Type Priority Associated Diagnoses Order Schedule AMB REFERRAL TO GENETICS Outpatient Referral Routine Mass of right breast, unspecified quadrant 1 Occurrences starting 02/02/2023 until 01/26/2024 AMB REFERRAL TO HEMATOLOGY ONCOLOGY Outpatient Referral Routine Mass of right breast, unspecified quadrant 1 Occurrences starting 02/02/2023 until 01/26/2024 documented as of this encounter Results * NM LYMPHOSCINTIGRAPHY (02/18/2023 [...] Diagnoses Diagnosis Mass of right breast, unspecified quadrant- Primary Mass of right breast, unspecified quadrant documented in this encounter
--- OUTSIDE RECORDS SUMMARY | 2024-07-02 04:42 | XMS_ITS | Encounter Summary ---
Author Organization [facility] Address [address] [place] [address] Care Team Providers Care Heatset Winder Operator Name Role Phone Unavailable Primary Care Provider Unavailabl e Reason for Visit * Reason Comments Well Women Exam last WWE 05/14/20 Encounter Details Date Type Department Care Team (Late st Contact Info) Description 05/22/2021 1:45 PM DIAMOND POLISHER Office Visit [facility] - BREAKER MECHANIC [address] [place] [address] Leatha Gupta MD [address] [place] [address] Well woman exam (Primary Dx); Uses oral contraception Social History Tobacco Use Types Packs/Day Years [...] Sign Reading Time Taken Comments Blood Pressure 113/68 05/22/2021 1:09 PM DIAMOND POLISHER Pulse 73 05/22/2021 1:09 PM DIAMOND POLISHER Temperature - - Respiratory Rate - - Oxygen Saturation - - Inhaled Oxygen Concentration - - Weight 86.6 kg (191 lb) 05/22/2021 1:09 PM DIAMOND POLISHER Height 162.6 cm (5' 4 ) 05/22/2021 1:09 PM DIAMOND POLISHER Body Mass Index 32.79 05/22/2021 1:09 PM DIAMOND POLISHER documented in this encounter Progress Notes * Leatha Gupta MD - 05/22/2021 1:22 PM CST Well Woman Yearly Exam HISTORY: Betina Coy is a 50 year old female, Patient's last menstrual period was 05/01/2021., here for a Well Woman exam. Up to date on paps. Will get her dae. Has had all of her vaccines. Discussed her pills. Starting to have some perimenopausal symptoms. Will try continuous to see if help. Menses: regular monthly cycle without intermenstrual spotting. Past Medical History: Diagnosis Date ??? Hypothyroid ??? MVP (mitral valve prolapse) [...] No thyroid or diabetes problems. EXAMINATION BP 113/68 Pulse 73 Ht 1.626 m (5' 4 ) Wt 86.6 kg (191 lb) BMI 32.79 kg/m2 Body mass index is 32.79 kg/m??. NEURO: The patient is oriented x3. [...] any lesions or abnormalities. Normal Bartholin's and [place]'s. Vagina: Moist, pink rugae without any lesions. Cervix: Closed, without any lesions. Uterus: Small, mobile, nontender. Well supported. Adnexa: Nontender without palpable masses. Urinary: Urethral meatus normal without palpable masses. Urethra without masses or tenderness. No suprapubic tenderness associated with bladder. Rectovaginal: Deferred. ASSESSMENT ICD-10-CM 1. Well woman exam Z01.419 2. Uses oral contraception Z30.41 Patient Active Problem List Diagnosis Date Noted ??? Hypercholesteremia 01/31/2019 Priority: Not Prioritized ??? PCOS (polycystic ovarian syndrome) Priority: Not Prioritized ??? MVP (mitral valve prolapse) Priority: Not Prioritized PLAN Betina Coy is a 50 year old female, Patient's last menstrual period was 05/01/2021., here for a Well Woman exam 1. Preventative medicine: History of pap negative/HPV negative, plan repeat paps q 5 years. Routine Annual Mammograms recommended. Follow up one year 2. OCPs Orders Placed This Encounter ??? DISCONTD: levonorgestrel-ethinyl estradiol (VIENVA) 0.1-20 MG-MCG tablet ? ? Levonorgest-Ethinyl Estradiol (LOSEASONIQUE) 0.1-0.02 & 0.01 MG TABS tablet See orders, medications, patient instructions. Leatha Gupta MD OND POLISHER documented in this encounter Plan of Treatment Upcoming Encounters Date Type Department Care Team (Late st Contact Info) Description 07/19/2024 9:45 AM DIAMOND POLISHER Office Visit [facility] - BREAKER MECHANIC [address] [place] [address] Leatha Gupta MD [facility] [place] [address] 12/11/2024 9:00 AM CDT Office Visit [facility] - Surgery [address] [facility], [address] [address] [place] [address] [address] [address] 12/11/2024 10:40 AM CDT Office Visit [facility] Cancer Care [address] [place] [address] [address] [place] [address] [address] [address] documented as of this encounter Visit Diagnoses Diagnosis Well woman exam- Primary Routine general medical examination at a health care facility Uses oral contraception documented in this encounter
--- OUTSIDE RECORDS SUMMARY | 2024-07-02 04:42 | XMS_ITS | Encounter Summary ---
Author Organization [facility] Address [address] [place] [address] Care Team Providers Care Pass Worker Name Role Phone Unavailable Primary Care Provider Unavailabl e Reason for Referral * Radiology Services (Routine) - Closed Specialty Diagnoses / Procedures Referred By Contac t Referred To Contact Diagnoses Abnormal mammogram of left breast Procedures US BREAST LEFT LTD Leatha Gupta MD [address] [place] [address] Referral ID Status Reason Start Date Expiration Date Visits Re quested Visits Authorized Closed 12/24/2021 12/24/2022 1 1 Encounter Details Date Type Department Care Team (Late st Contact Info) Description 12/24/2021 Orders Only [facility] - BIG 6 DEALER [address] [place] [address] Leatha Gupta MD [address] [facility] [address] Abnormal mammogram of left breast Social History Tobacco Use Types Packs/Day Years [...] st Contact Info) Description 07/19/2024 9:45 AM REGULATORY SUBMISSIONS SPECIALIST Office Visit [facility] - BIG 6 DEALER [address] [place] [address] Leatha Gupta MD [address] [place] [address] 12/11/2024 9:00 AM CDT Office Visit [facility] - Surgery [address] [facility], [address] [place] [address] [place] [address] [facility] [address] 12/11/2024 10:40 AM CDT Office Visit [facility] Cancer Care [address] [place] [address] [address]ana[address]. [address] [place] [address] Bernardo Lizarraga MD [address] [place] [address] [address] [place] [address] documented as of this encounter Results * US BREAST LEFT [...] outer quadrant was performed by a trained grocery store associate. In the left breast 2:00 position 8 cm from the nipple posterior depth there is a group of simple cysts measuring 2.0 x 1.1 x 2.3 cm in aggregate. ?? Leatha Gupta MD US ORDERABLES documented in this encounter Visit Diagnoses Diagnosis Abnormal mammogram of left breast- Primary Abnormal mammogram of left breast documented in this encounter
--- OUTSIDE RECORDS SUMMARY | 2024-07-02 04:42 | XMS_ITS | Encounter Summary ---
Author Organization [facility] Address [address] [place] [address] Care Team Providers Care Equipment Service Lead Name Role Phone HoracioNaya Irving GALLO Unavailable [phone] Bernardo Lizarraga MD Unavailable [phone] Celina Sifuentes MD Primary Care Provider [phone] Reason for Referral * (Routine) - Closed Specialty Diagnoses / Procedures Referred By Contac t Referred To Contact Procedures [place] [address] [facility] [address] [place] [phone] [place] [address] [facility] [address] [place] [phone] Referral ID Status Reason Start Date Expiration Date Visits Re quested Visits Authorized [id number] Closed 02/25/2023 02/25/2024 1 1 Reason for Visit * Auth/Cert (Routine) Specialty Diagnoses / Procedures Referred By Contac t Referred To Contact Procedures IA EXC NECK FRITZ DEEP = 5 CM EXCISION MASS OR TUMOR CHEST Referral ID Status Reason Start Date Expiration Date Visits Re quested Visits Authorized [id number] 1 1 Encounter Details Date Type Department Care Team (Latest Contact Info) Description 02/25/2023 5:42 AM CDT - 02/25/2023 9:18 AM CDT Hospital Encounter Counts include 234 beds at the [facility] - Perioperative Surgery [address] [place], [place] [id number] [place] [address] [facility] [address] [place] [phone] Surgery General Discharge Disposition: Home or Self [...] Reading Time Taken Comments Blood Pressure 123/73 02/25/2023 8:45 AM CDT Pulse 83 02/25/2023 6:50 AM CDT Temperature 35.9 ??C (96.7 ??F) 02/25/2023 8:16 AM CD T Respiratory Rate 18 02/25/2023 8:45 AM CDT Oxygen Saturation 96% 02/25/2023 8:45 AM CDT Inhaled Oxygen Concentration - - [...] daily 14 capsule 02/25/2023 03/17/2023 HYDROcodone-acetaminoph en ([place]) 5-325 MG tabletIndications:Invas albert ductal carcinoma of [...] wall seroma, bilaterally History and Physical: Betina Uriarte is a 52 year old female who [...] Right 01/06/2023 US BREAST RIGHT BIOPSY 01/06/2023 [facility] US No Known Allergies Medications [...] cause drowsiness. 90 tablet 0 ??? HYDROcodone-acetaminophen ([place]) 5-325 MG tablet Take 1 (one) tablet [...] Melendez MD - 02/25/2023 9:18 AM CDT [facility] RE[facility] PATIENT: : BETINA URIARTE MR#: [id number] ADMIT DATE: 02/25/2023 CSN: [id number] DATE OF SURGERY: 02/25/2023 : 1970 PHYSICIAN: Ernesto Melendez MD ROOM: [facility] PREOPERATIVE DIAGNOSIS: Bilateral chest wall seroma. POSTOPERATIVE DIAGNOSIS: Bilateral chest wall seroma. PROCEDURES PERFORMED: Incision and drainage, bilateral chest wall seroma with placement of Shalom drain, left chest wall; placement of Shalom drain, right chest wall. SURGEON: Ernesto Melendez MD, FACS. HVAC SERVICES PROFESSIONAL: MARIXA Escobar. ANESTHESIA: Local with IV sedation. [...] satisfactory condition. Ernesto Melendez MD JSG/MODL #: [id number] * Brief Op Note - Ernesto Melendez MD - 02/25/2023 7:45 AM CDT Brief Post Operative Note Preoperative Diagnosis: Bilateral chest wall seroma Postoperative Diagnosis: same Procedure: I and D with bilat chest wall drain placement Surgeon: Ernesto Melendez MD Mini Shifter: MARIXA Type of anesthesia: Local, MAC Complications: none EBL: 10 cc Drains: CHANI subcutaneous x 2 documented in this encounter Miscellaneous Notes * Clinical References AVS - Reggie Moon RN - 02/25/2023 8:12 AM CDT Images from the original note were not included. [id number] Discharge Instructions: Caring for Your Ravindra-Harrington Drainage [...] 30 mL) Last Reviewed Date: 2021 ?? [phone] [employer]. All rights reserved. This information is not intended as a substitute for professional medical care. Always follow your healthcare professional's instructions. documented in this encounter Plan of Treatment Upcoming Encounters Date Type Department Care Team (Late st Contact Info) Description 07/19/2024 9:45 AM AIRPLANE PILOT COMMERCIAL Office Visit [facility] - ASSOCIATE PROFESSOR OF AUTOMATION [address] [place] [address] Leatha Gupta MD [address] [place] [address] 12/11/2024 9:00 AM CDT Office Visit [facility] - Surgery [address] [place] [address], [address] [place] [address] [place] [id number] [place] [address] 12/11/2024 10:40 AM CDT Office Visit [facility] [address] [place] [address] Bernardo Lizarraga MD [address] [place] [address] documented as of this encounter Procedures Procedure Name Priority Date/Time Associated Diagnosis Comments IA EXC NECK FRITZ DEEP = 5 CM 02/25/2023 7:20 AM CDT HCG URINE QUALITATIVE STAT 02/25/2023 6:32 AM CDT Preoperative examination documented in this encounter Results * HCG URINE QUALITATIVE (02/25/2023 6:32 AM CDT) hCG Qualitative Urine Negative Negative 02/25/2023 6:42 AM CDT [facility] Urine URINE / Unknown Collection / Unknown 02/25/2023 6:32 AM CDT 02/25/2023 6:36 AM CDT Kaila Jamison DO LAB - URINALYSIS ORD ERABLES [facility] [address] [place] [address] documented in this encounter Visit Diagnoses Diagnosis Preoperative examination- Primary Preoperative examination, unspecified documented in this encounter Administered Medications Inactive [...] Comment: Switch to gravity)0759 (Restarted - Provider: Rose [place] Leroy, BALANCE AND HAIRSPRING ASSEMBLER-CARDIOLOGY SPECIALIST) PRN Medication Order 02/23/2023 02/24/2023 02/25/2023 0.9% [...] Pre-op documented in this encounter Care Teams Equipment Service Lead Relationship Specialty Start Date End Date Celina Sifuentes MD [address] [place] [address] PCP - General Family Medicine 02/16/23 11/14/23 [place] [address] [place] [phone] Surgical Oncologist Surgical Oncology 02/15/23 [place] [address] [place] [phone] Hotel General Manager/Oncologist Hematology and Oncology 02/16/23 documented as of this encounter
--- OUTSIDE RECORDS SUMMARY | 2024-07-02 04:42 | XMS_ITS | Encounter Summary ---
Author Organization [facility] Address [address] [facility] [place] [address] Care Team Providers Care Goat Herder Name Role Phone Unavailable Primary Care Provider Mala singh Encounter Details Date Type Department Care Team (Late Contact Info) Description 01/19/2023 Orders Only [facility] - Surgery [address] [address] Naya Leonard [address] [facility] [address] [place] [phone] Social History Tobacco Use Types Packs/Day Years [...] of this encounter Progress Notes * Angella Grajeda RN - 01/19/2023 1:23 PM CDT Made in Error. DY documented in this encounter Plan of Treatment Upcoming Encounters Date Type Department Care Team (Late st Contact Info) Description 07/19/2024 9:45 AM FIFTH GRADE TEACHER Office Visit [facility] - LUMBER ESTIMATOR [address] [place] [address] Leatha Gupta MD [address] [place] [address] 12/11/2024 9:00 AM CDT Office Visit [facility] - Surgery [address] [facility], [address] [place] [address] [place] [address] [address] [facility] [address] [place] [address] 12/11/2024 10:40 AM CDT Office Visit [facility] [address] [place] [address] [address] [place] [address] [place] [address] [address] [address] [address] documented as of this encounter Visit Diagnoses Not on filedocumented in this encounter
--- OUTSIDE RECORDS SUMMARY | 2024-07-02 04:42 | XMS_ITS | Encounter Summary ---
Author Organization [facility] Address [address] [address] Care Team Providers Care Professor Of Early Childhood Education Name Role Phone Unavailable Primary Care Provider Unavailabl e Reason for Referral * Radiology Services (Routine) - Closed Specialty Diagnoses / Procedures Referred By Contac t Referred To Contact Diagnoses Abnormal findings on diagnostic imaging of breast Procedures US BREAST RIGHT BIOPSY Leatha Gupta MD [address] [place] [address] Referral ID Status Reason Start Date Expiration Date Visits Re quested Visits Authorized [id number] Closed 01/06/2023 01/06/2024 1 1 Reason for Visit * Radiology Services (Routine) - Closed Specialty Diagnoses / Procedures Referred By Contac t Referred To Contact Diagnoses Abnormal findings on diagnostic imaging of breast Procedures US BREAST RIGHT BIOPSY Leatha Gupta MD [address] [place] [address] Referral ID Status Reason Start Date Expiration Date Visits Re quested Visits Authorized [id number] Closed 01/06/2023 01/06/2024 1 1 Encounter Details Date Type Department Care Team (Latest Contact Info) Description 01/06/2023 9:36 AM CDT - 01/06/2023 9:57 AM CDT Hospital Encounter [facility] Imaging Services - Ultrasound [address] [place] [address] Discharge Disposition: Home or Self Care [...] AM CDT documented as of this encounter Discharge Instructions * Discharge Instructions* Sonja Wiggins RN - 01/06/2023 8:02 AM CDT Why am I receiving these instructions? The following instructions are intended to help you care for yourself after an image-guided breast needle biopsy. What to expect after biopsy You received local anesthesia (numbing medicine) during your biopsy today. This will usually last for about 1-2 hours and then will wear off. It is normal to feel increased pain, soreness, or tenderness after the numbing medicine has worn off. A small amount of continued bleeding at the biopsy site can be normal. Apply pressure to the area with the palm of your hand for 10 minutes at a time. You may feel a lump at the biopsy site, even if you did not feel one before. This is usually because there is a small bruise inside your breast. Bruising of the breast, even away from where the biopsy was done, can be normal. If you had a biopsy of your breast near the nipple, you may see some bloody nipple discharge. Biopsy site care A very small incision was made in your skin during the biopsy. To help your incision heal, you may have either Steri-strips (small pieces of tape) or skin adhesive at your biopsy site. If you have Steri-strips: After 24 hours you may remove the gauze dressing (the cloth bandage over the Steri-strips) and shower. Steri-strips should remain on until they fall off (usually about 5-10 days). The ends may curl up but do not pull them off. Avoid scrubbing them. Avoid using any lotions or lanolin-based soaps at the site of the steri-strips. The use of these products will cause the Steri-strips to come off prematurely. If you have skin glue: You may shower in 24 hours. The site should not be scrubbed or soaked until after the film has fallen off naturally and the biopsy site has completely healed. The film will usually fall/slough off in about 5 to 10 days. Activity In general, try to take it easy after your breast biopsy and increase your activity level as you feel able. Use the ice pack that was given to you. Place it over the biopsy site for 15-20 minutes at a time several times today then if needed for swelling and tenderness. Wear a supportive bra for 24 hours (like a sports bra) if comfortable. Try not to do anything strenuous (running, aerobics, etc) for several days. Avoid submerging area of biopsy in swimming pool, hot tub, muñoz or river for approximately 10 days . Okay to do once steri-stips/glue area is healed (closed). Diet You may resume your usual diet as before your breast biopsy. Medication Take Acetaminophen (Tylenol) as needed: follow package directions how to take them the rest of today. Please ask your doctor or nurse when to begin taking anticoagulants (blood thinners) if you are on these. You may continue the rest of your home medications as you normally would. Results The results of your biopsy are generally available in 2-4 business days. You will be called by either your doctor or our Nurse Navigator with the results of your biopsy when they are available. At that time, you will also be advised of any further follow-up needed or when you should return for yournext breast imaging examination. If you have not received a call with results in 6 business days, please call our office. When to call your doctor If you experience any of the following, you should call our office: Nurse Navigator Temperature greater than 101.5 . You may take Tylenol for mild fever lower than that. Bleeding at biopsy site that does not stop with holding pressure for 10 minutes at a time, for a total of 2 hours. Post-biopsy mammogram As part of your procedure today, a mammogram was done to determine that the clip we placed was positioned correctly. This clip placement was discussed with you at the time of your biopsy procedure. The mammogram today is to document clip placement and does not take the place of your yearly mammogram. We are required by [place] law to inform you of the following information: If your mammogram demonstrates that you have dense breast tissue, which could hide abnormalities, and you have other risk factors for breast cancer that have been identified, you might benefit from supplemental screening tests that may be suggested by your ordering physician. Dense breast tissue, in and of itself, is a relatively common condition. Therefore, this information is not provided to cause undue concern, but rather to raise your awareness and to promote discussion with your physician regarding the presence of other risk factors, in addition to dense breast tissue. A report of your mammography results will be sent to you and your physician. You should contact your physician if you have any questions or concerns regarding this report. Sonja BARONE, RN Diagnostic Breast Nurse Navigator [address] [address] [email or web address] Office: [phone] documented in this encounter Medications at Time of Discharge Medication Sig Dispensed Refills Start Date End Date Lutera 0.1-20 MG-MCG tablet TK 1 T PO QD 3 packet 4 05/26/2022 02/24/2023 Melatonin 10 MG 02/05/2023 Multiple Vitamins-Minerals (MULTIVITAMIN ADULT PO) 01/10 documented as of this encounter Progress Notes * Sonja Wiggins RN - 01/06/2023 4:08 PM CDT Radiologist performing procedure: Dr. Espinoza Your patient tolerated ultrasound guided right breast biopsy and stereotactic/tomosynthesis guided right breast biopsy without complaints. Skin glue applied to each site. Ice packs applied to procedure sites. Post biopsy discharge instructions were reviewed and given to the patient. Specimens: A malathi bal verification of each of the specimens to include the patient name, date of and the side/site of specimen obtained was completed by the team and patient. Procedure appropriate debriefing wascompleted, by the team, at the end of the procedure. No further questions were asked. The patient was discharged. * Ok Torre APRN-CNP - 01/06/2023 9:57 AM CDT Waiting for pathology * Sonja Wiggins RN - 01/06/2023 9:[address] Espinoza has reviewed pathology from the Right breast biopsy of two sites as MALIGNANT and concordant for each site with recommendations for breast surgery consultation and preoperative breast MRI. The patient has been notified of the results and recommendations. The patient is scheduled for breast MRI 01/27/23 at [facility], which is first available date for all the sites. Appointment with Dr. Leonard is scheduled for 01/18/23 at her staff's recommendation since MRI is scheduled out a bit The patient verbalized understanding and will call with questions and concerns. The patient is doing well post biopsy. documented in this encounter Plan of Treatment Upcoming Encounters Date Type Department Care Team (Late st Contact Info) Description 07/19/2024 9:45 AM KILN HEAD HOUSE OPERATOR Office Visit [facility] - ELECTROENCEPHALOGRAPH TECHNICIAN [address] [place] [phone] Leatha Gupta MD [address] [place] [address] 12/11/2024 9:00 AM CDT Office Visit [facility] - Surgery [address] [facility], [address] [place] [address] [place] [address] [facility] [address] [place] [address] 12/11/2024 10:40 AM CDT Office Visit [facility] [address] [facility] [address] [place] [address] [place] [address] [place] [address] documented as of this encounter Procedures Procedure Name Priority Date/Time Associated Diagnosis Comments US BREAST RIGHT BIOPSY Routine 01/06/2023 10:39 AM CDT Abnormal findings on diagnostic imaging of breast PATHOLOGY TISSUE EXAM (STL) Routine 01/06/2023 10:35 AM CDT Abnormal findings on diagnostic imaging of breast documented in this encounter Results * US BREAST RIGHT BIOPSY (01/06/2023 10:39 [...] are included within the tissue cores. ??[A [employer] Mini Cork tissue marker clip was then [...] position. Leatha Gupta MD US ORDERABLES * PATHOLOGY TISSUE EXAM (STL) (01/06/2023 10:35 AM CDT) Case Report Surgical Pathology Report ? Case: [id number] ? Authorizing Provider: ??Leatha Gupta MD ? Collected: ? 01/06/2023 10:35 AM ? Ordering Location: ? [facility] US ?Received: ?01/06/2023 01:47 PM ? Pathologist: ? Sarah Blount MD ? Specimens: ?? A) - Breast Core Biopsy, RIGHT breast mass, 11:00 8 cm FN. BI-RADS 5. 3 cores. ? B) - Breast Needle Core, right ? 01/07/2023 3:24 PM CDT [facility] Final Diagnosis A. Right breast mass, 11 o'clock 8 cm from nipple, core biopsy: -- Infiltrating ductal carcinoma -- Involving cores of tissue -- 3 mm maximum contiguous extent (minimum tumor size) -- Cameron grade 1 of 3 -- Moderate tubule [...] in multiple fragments -- Therapeutic biomarkers pending 01/07/2023 3:24 PM CDT [facility] Addendum 1 The results of franklyn t prognostic factors by immunohistochemical stains with appropriate controls are as follows: Specimen A (right breast at 11:00): ER: Positive ( 70 %, moderate intensity) OH: Positive ( 90 %, strong intensity) Her-2-brittany: Not over-expressed (score 1+) Ki-67: Low proliferation/favorab le ( 3 %) Specimen B (right breast calcifications): ER: Positive ( >95 %, strong intensity) OH: Positive ( 50 %, moderate intensity) Fixation: Paraffin embedded tumor tissue was fixed in formalin for 6-72 hours. Tissue cold ischemic time is less one hour. Methodology: The immunostains are performed with [place] Ultra[employer] [place] DAB detection kit and rabbit monoclonal antibodies (ER- SP1, PgR-1E2, Her2- 4B5, and Ki67- 30-9). Interpretation: The percent of tumor cells expressing the predictive marker is quantitated morphometrically for ER, OH and Ki67; the stain intensity is also reported for ER and OH. For ER and OH, results greater than or equal to 1% is reported as positive according to CAP/ASCO guidelines. For Ki67, results less than or equal to 10 % is reported as favorable, greater than 10% and less than or equal to 20% as borderline and greater than 20% as unfavorable. The Her2 score is reported as 0, 1+, 2+, and 3+ according to CAP/ASCO guidelines. 01/07/2023 3:24 PM CDT [facility] Addendum electronically signed by Sarah Blount MD on 01/07/2023 at 3:24 PM Clinical History A. Right breast mass, 11 o'clock 8 cm from nipple. BI-RADS 5 B. Right breast calcifications, medial anterior ill, BI-RADS 5. 01/07/2023 3:24 PM CDT [facility] Gross Description Received in formalin labeled with patient's name and right breast mass biopsy are fragments of hurtado soft tissue measuring 8 x 4 x 2 mm in aggregate. Submitted entirely in cassette A1. Specimen placed in formalin at 10:36 a.m., January 06, 2023. The cold ischemic time is 1 minutes. Received in formalin labeled with patient's name and right breast calcifications are multiple fragments of yellow-hurtado soft tissue in 9 compartments measuring 2 x 1.5 x 0.2 cm in aggregate. Tissue in compartments DEF and H is calcified and is submitted cassette B1. The rest is submitted cassette B2. Tissue placed in formalin at 1104, January 06, 2023. The cold ischemic time is 2 minutes. 01/07/2023 3:24 PM CDT [facility] Microscopic Description Microscopic examination substantiates the above cited diagnosis. 01/07/2023 3:24 PM CDT [facility] Disclaimer All histochemical and/or immunohistochemical results are interpreted with controls that demonstrate appropriate staining reactions before reporting results. Note on use of immunocytochemistry reagents: This test was developed and its performance characteristic determined by [facility], Department of Laboratory Medicine. It has [...] tissues. Results should be interpreted with caution. 01/07/2023 3:24 PM CDT [facility] Embedded Images 01/07/2023 3:24 PM CDT [facility] Pathology/Cytology CORE NEEDLE BIOPSY OF BREAST / Unknown 01/06/2023 10:35 AM CDT 01/06/2023 1:47 PM CDT Miscellaneous samples (specimen) CORE NEEDLE BIOPSY OF BREAST / Unknown 01/06/2023 10:35 AM CDT 01/06/2023 1:47 PM CDT Leatha Gupta MD LAB - PATHOLOGY/CYT OLOGY ORDERABLES [facility] [address] [place] [address] documented in this encounter Visit Diagnoses Diagnosis Abnormal findings on diagnostic imaging of breast Other (abnormal) findings on radiological examination of breast documented in this encounter Administered Medications Inactive Administered Medications - up to 3 most recent administrations Medication Order MAR Action Action Date Dose Rate Site lidocaine (Xylocaine) 1 % injection Infiltration, ONCE, 1 dose, On Wed01/06/23 at 1045 $ Given 01/06/2023 10:31 AM CDT 7 mL Right Mammary lidocaine 2% - EPINEPHrine 1:100,000 injection Infiltration, ONCE, 1 dose, On Wed01/06/23 at 1045 $ Given 01/06/2023 10:33 AM CDT 5 mL Right Mammary documented in this encounter
--- OUTSIDE RECORDS SUMMARY | 2024-07-02 04:42 | XMS_ITS | Encounter Summary ---
Author Organization [facility] Address [address] [place] [address] Care Team Providers Care Watchmaking Teacher Name Role Phone Unavailable Primary Care Provider Unavailabl e Reason for Visit * Reason Comments Registered Respiratory Therapist Routine Exam here for WWE Encounter Details Date Type Department Care Team (Late st Contact Info) Description 05/14/2020 11:00 AM CAGE MAKER MACHINE Office Visit [facility] Medical [facility] - INTERNET SYSTEMS ADMINISTRATOR [address] [place] [address] Leatha Gupta MD [address] [place] [address] Well woman exam (Primary Dx); [...] Sign Reading Time Taken Comments Blood Pressure 92/66 05/14/2020 11:06 AM CAGE MAKER MACHINE Pulse 66 05/14/2020 11:06 AM CAGE MAKER MACHINE Temperature 36.5 ??C (97.7 ??F) 05/14/2020 1 1:06 AM CAGE MAKER MACHINE Respiratory Rate - - Oxygen Saturation 100% 05/14/2020 11: 06 AM CAGE MAKER MACHINE Inhaled Oxygen Concentration - - Weight 79.3 kg (174 lb 12.8 oz) 020 11:06 AM CAGE MAKER MACHINE Height - - Body Mass Index 30 01/03/2019 9:46 AM CDT documented in this encounter Progress Notes * Leatha Gupta MD - 05/14/2020 11:25 AM CST Well Woman Yearly Exam HISTORY: Betina Coy is a 49 year old female, Patient's last menstrual period was 04/17/2020 (exact date)., here for a Well Woman exam. Has her dae scheduled. Up to date on paps. 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 Has been getting bio identical hormones for a while now that she is doing on top of her OCPs that she takes for her PCOS. One is a thryoid replacement and the other is a combo of testosterone, DHEA etc. Spent time discussing some of the issues with bio identicals, etc. She will talk with the clinic and her PCP re whether to continue. Showed me some labs so at least the thyroid and test levels are not out of the normal range. Menses: regular monthly cycle without intermenstrual spotting. [...] file Occupational History ??? Not on file Social Needs ??? Financial resource strain: Not on file ??? Food insecurity Worry: Not on file Inability: Not on file ??? Transportation needs Medical: Not on file Non-medical: Not on file Tobacco Use ??? Smoking status: Never Smoker ??? Smokeless tobacco: Never Used Substance and Sexual Activity ??? Alcohol use: No ??? Drug use: No ??? Sexual activity: Yes control/protection: Pill Lifestyle ??? Physical activity Days per week: Not on file Minutes per session: Not on file ??? Stress: Not on file Relationships ??? Social connections Talks on phone: Not on file Gets together: Not on file Attends adventism service: Not on file Active member of club or organization: Not on file Attends meetings of clubs or organizations: Not on file Relationship status: Not on file ??? Intimate partner violence Fear of current or ex partner: Not on file Emotionally abused: Not on file Physically abused: Not on file Forced sexual activity: Not on file Other Topics Concern ??? Not on file Social History Narrative ??? Not on file No Known Allergies OB History 3 Para 3 Term 3 AB Living 3 SAB TAB Ectopic Multiple Live Births 3 Family History [...] No thyroid or diabetes problems. EXAMINATION BP 92/66 Pulse 66 Temp 97.7 ??F (36.5 ??C) Wt 174 lb 12.8 oz SpO2 100% BMI 30 kg/m2 Body mass indexis 30 kg/m??. NEURO: The patient is oriented x3. [...] any lesions or abnormalities. Normal Bartholin's and Eliza's. Vagina: Moist, pink rugae without any lesions. [...] Not Prioritized PLAN Betina Coy is a 49 year old female, Patient's last menstrual period was 04/17/2020 (exact date)., here for a Well Woman exam 1. Preventative medicine: History of pap negative/HPV negative, plan repeat paps q 5 years. Routine Annual Mammograms recommended. Follow up one year 2. OCPs for PCOS Orders Placed This Encounter ??? VIENVA 0.1-20 MG-MCG tablet See orders, medications, patient instructions. Leatha Gupta MD MAKER MACHINE documented in this encounter Plan of Treatment Upcoming Encounters Date Type Department Care Team (Late st Contact Info) Description 07/19/2024 9:45 AM CAGE MAKER MACHINE Office Visit [facility] - INTERNET SYSTEMS ADMINISTRATOR [address] [place] [phone] Leatha Gupta MD [address] [place] [address] 12/11/2024 9:00 AM CDT Office Visit [facility] - Surgery [address] [facility], [address] [place] [address] [place] [address] [facility] [address] [place] [address] 12/11/2024 10:40 AM CDT Office Visit [facility] Cancer Care [address] [facility] [address] [place] [address] [place] [address] [place] [address] documented as of this encounter Visit Diagnoses Diagnosis Well woman exam- Primary Routine general medical examination at a health care facility Uses oral contraception documented in this encounter
--- OUTSIDE RECORDS SUMMARY | 2024-07-02 04:42 | XMS_ITS | Encounter Summary ---
Author Organization [facility] Address [address] [place] [address] Care Team Providers Care Driver Service Technician Name Role Phone Unavailable Primary Care Provider Unavailabl e Reason for Referral * Radiology Services (Routine) - Closed Specialty Diagnoses / Procedures Referred By Contac t Referred To Contact MRI Diagnoses Mass of right breast, unspecified quadrant Procedures MRI [place] [address] [address] [place] [address] [facility] Imaging [facility] Mri [address] [facility] [address] [place] [address] Referral ID Status Reason Start Date Expiration Date Visits Re quested Visits Authorized [id number] Closed 01/19/2023 01/19/2024 1 1 Encounter Details Date Type Department Care Team (Late st Contact Info) Description 01/19/2023 Orders Only [facility] Medical Group - Surgery [address] [facility], [address] [place] [address] [place] [address] [place] [address] Mass of right breast, unspecified quadrant Social History Tobacco Use Types Packs/Day Years [...] Contact Info) Description 07/19/2024 9:45 AM MEDICAL BILLING MANAGER Office Visit [facility] - AIR TURNING MACHINE FEEDER [address] [place] [address] Leatha Gupta MD [address] [place] [address] 12/11/2024 9:00 AM CDT Office Visit [facility] - Surgery [address] [place] [address], [address] [place] [address] [place] [address] [facility] [address] [address] 12/11/2024 10:40 AM CDT Office Visit [facility] Cancer Care [address] [place] [address] [place] [id number] [place] [address] documented as of this encounter Results * (ABNORMAL) MRI BREAST [...] lymph nodes in the left axilla. Naya OWEN ORDERABLES documented in this encounter Visit Diagnoses Diagnosis Mass of right breast, unspecified quadrant Mass of right breast, unspecified quadrant- Primary documented in this encounter
--- OUTSIDE RECORDS SUMMARY | 2024-07-02 04:42 | XMS_ITS | Encounter Summary ---
Author Organization [facility] Address [address] [facility] [place] [address] Care Team Providers Care Modeling Agency Manager Name Role Phone Unavailable Primary Care Provider Unavailabl e Reason for Visit * Reason Onset Date Comments Question 01/19/2023 Encounter Details Date Type Department Care Team (Late st Contact Info) Description 01/19/2023 Telephone [facility] Medical Group - Surgery [address] [place] [address] [place] [address] [address] Question Social History Tobacco Use [...] encounter Miscellaneous Notes * Telephone Encounter - Katlyn Rose - 01/19/2023 11:33 AM CDT Called patient no answer left voicemail to let her know that she needs to get order from Dr. yLnn's office for MRI. documented in this encounter Plan of Treatment Upcoming Encounters Date Type Department Care Team (Late st Contact Info) Description 07/19/2024 9:45 AM BUFFING AND POLISHING WHEEL REPAIRER Office Visit [facility] - BLENDING COORDINATOR [address] [place] [address] Leatha Gupta MD [address] [place] [address] 12/11/2024 9:00 AM CDT Office Visit [facility] - Surgery [address] [facility], [address] [place] [address] [place] [address] [facility] [address] [place] [address] 12/11/2024 10:40 AM CDT Office Visit [facility] Cancer Care [address] [place] [address] [address] [place] [address] [place] [id number] [place] [address] [facility] [address] [place] [address] documented as of this encounter Visit Diagnoses Not on filedocumented in this encounter
--- OUTSIDE RECORDS SUMMARY | 2024-07-02 04:42 | XMS_ITS | Encounter Summary ---
Author Organization [facility] Address [address] [place] [address] Care Team Providers Care Infectious Disease Physician Name Role Phone Naya Leonard Irving DO Unavailable [phone] Bernardo Lizararga MD Unavailable [phone] Celina Sifuentes MD Primary Care Provider [phone] Encounter Details Date Type Department Care Team (Latest Contact Info) Description 02/16/2023 Travel Social History Tobacco Use Types Packs/Day [...] st Contact Info) Description 07/19/2024 9:45 AM ENGINEER DESIGN AND CONSTRUCTION Office Visit [facility] - MUNICIPAL COURT JUDGE [address] [address] Leatha Gupta MD [address] [place] [address] 12/11/2024 9:00 AM CDT Office Visit [facility] - Surgery [address] [facility], [address] [place] [address] [place] [address] [address] [facility] [address] [place] [address] 12/11/2024 10:40 AM CDT Office Visit [facility] Cancer Care [address] [facility] [address] [place] [address] [place] [address] [address] [facility] [address] [place] [address] documented as of this encounter Visit Diagnoses Not on filedocumented in this encounter Care Teams Infectious Disease Physician Relationship Specialty Start Date End Date Celina Sifuentes MD [address] [place] [address] PCP - General Family Medicine 02/16/23 11/14/23 [place] [address] [address] Surgical Oncologist Surgical Oncology 02/15/23 [place] [address] [address] Student Services Rep/Oncologist Hematology and Oncology 02/16/23 documented as of this encounter
--- OUTSIDE RECORDS SUMMARY | 2024-07-02 04:42 | XMS_ITS | Encounter Summary ---
Author Organization [facility] Address [address] [place] [address] Care Team Providers Care Preschool Teacher Name Role Phone Unavailable Primary Care Provider Unavailabl e Reason for Referral * Radiology Services (Routine) - Closed Specialty Diagnoses / Procedures Referred By Contac t Referred To Contact Diagnoses S/P breast biopsy, right Procedures MAMMO RIGHT POST CLIP OR WIRE Leatha Gupta MD [address] [place] [address] Referral ID Status Reason Start Date Expiration Date Visits Re quested Visits Authorized [id number] Closed 01/06/2023 01/06/2024 1 1 * Radiology Services (Routine) - Closed Specialty Diagnoses / Procedures Referred By Contac t Referred To Contact Diagnoses Abnormal findings on diagnostic imaging of breast Procedures US BREAST RIGHT BIOPSY Leatha Gupta MD [address] [place] [address] Referral ID Status Reason Start Date Expiration Date Visits Re quested Visits Authorized [id number] Closed 01/06/2023 01/06/2024 1 1 * Radiology Services (Routine) - Closed Specialty Diagnoses / Procedures Referred By Contac t Referred To Contact Diagnoses Breast calcifications on mammogram Procedures MAMMO STEREOTACTIC RIGHT BIOPSY Leatha Gupta MD [address] [place] [address] Referral ID Status Reason Start Date Expiration Date Visits Re quested Visits Authorized [id number] Closed 01/06/2023 01/06/2024 1 1 Encounter Details Date Type Department Care Team (Late Contact Info) Description 12/30/2022 Orders Only [facility] Breast Care [address] [facility] [address] [place] [address] Sonja Wiggins, RN Breast calcifications on mammogram ; Abnormal findings on diagnostic imaging of breast; S/P breast biopsy, right Social History Tobacco Use Types Packs/Day Years [...] (Late Contact Info) Description 07/19/2024 9:45 AM SHOE CEMENTER Office Visit [facility] - DIRECTOR HEDIS [address] [place] [address] Leatha Gupta MD [address] [place] [address] 12/11/2024 9:00 AM CDT Office Visit [facility] - Surgery [address] [facility], [address] [place] [address] [place] [address] [facility] [address] [place] [address] 12/11/2024 10:40 AM CDT Office Visit [facility] Cancer Care [address] [place] [address] [place] [address] [address] documented as of this encounter Results * MAMMO RIGHT POST [...] expected position. Leatha Gupta MD US ORDERABLES documented in this encounter Visit Diagnoses Diagnosis Breast calcifications on mammogram- Primary Other (abnormal) findings on radiological examination of breast Abnormal findings on diagnostic imaging of breast Other (abnormal) findings on radiological examination of breast S/P breast biopsy, right Other postprocedural status Breast calcifications on mammogram Other (abnormal) findings on radiological examination of breast Abnormal findings on diagnostic imaging of breast Other (abnormal) findings on radiological examination of breast S/P breast biopsy, right Other postprocedural status documented in this encounter
--- OUTSIDE RECORDS SUMMARY | 2024-07-02 04:42 | XMS_ITS | Encounter Summary ---
Author Organization [facility] Address [address] [facility] [place] [address] Care Team Providers Care Belt Glass Sander Name Role Phone Unavailable Primary Care Provider Unavailabl e Reason for Visit * Radiology Services (Routine) - Closed Specialty Diagnoses / Procedures Referred By Contac t Referred To Contact Diagnoses Encounter for screening mammogram for malignant neoplasm of breast Procedures MAMMO BILAT DIAGNOSTIC W DONALD MAMMO BILAT SCREENING W Leatha Mendoza MD [address] [place] [address] Referral ID Status Reason Start Date Expiration Date Visits Re quested Visits Authorized [id number] Closed 12/29/2022 12/29/2023 1 1 Encounter Details Date Type Department Care Team (Latest Contact Info) Description 12/30/2022 8:44 AM CDT - 12/30/2022 9:06 AM CDT Hospital Encounter [facility] Breast Care [address] [place] [address] Discharge Disposition: Home or Self Care Social [...] st Contact Info) Description 07/19/2024 9:45 AM MAITRE D' Office Visit [facility] - SUPERVISOR EVAPORATOR [address] [place] [address] Leatha Gupta MD [address] [place] [address] 12/11/2024 9:00 AM CDT Office Visit [facility] - Surgery [address] [facility], [address] [address] [place] [address] [address] [address] 12/11/2024 10:40 AM CDT Office Visit [facility] Cancer Care [address] [place] [address] [place] [address] [place] [id number] [place] [address] documented as of this encounter Procedures Procedure Name Priority Date/Time Associated Diagnosis Comments MAMMO BILAT DIAGNOSTIC W DONALD Routine 12/30/2022 9:13 AM CDT Encounter for screening mammogram for malignant neoplasm of breast documented in this encounter Results * (ABNORMAL) MAMMO BILAT DIAGNOSTIC W DONALD [...] be scheduled to return to the [facility] for biopsy . > Interpreting [...] BOTH breasts was performed by a trained shell worker and by Dr. Maddi Landeros. BREAST PARENCHYMAL [...] hypoechoic mass. Leatha Gupta MD MAMMO ORDERABLES documented in this encounter Visit Diagnoses Diagnosis Encounter for screening mammogram for malignant neoplasm of breast Other screening mammogram documented in this encounter
--- OUTSIDE RECORDS SUMMARY | 2024-07-02 04:42 | XMS_ITS | Encounter Summary ---
Author Organization [facility] Address [address] [place] [address] Care Team Providers Care Rv Repairer Name Role Phone Unavailable Primary Care Provider Unavailabl e Encounter Details Date Type Department Care Team (Latest Contact Info) Description 10/06/2021 Travel Social History Tobacco Use Types Packs/Day [...] st Contact Info) Description 07/19/2024 9:45 AM METAL PICKLING EQUIPMENT OPERATOR Office Visit [facility] - CASH SALES AUDIT CLERK [address] [address] Leatha Gupta MD [address] [place] [address] 12/11/2024 9:00 AM CDT Office Visit [facility] - Surgery [address] [facility], [address] [place] [address] [place] [address] [address] 12/11/2024 10:40 AM CDT Office Visit [facility] Cancer Care [address] [place] [address] [address] [place] [address] [facility] [address] [address] documented as of this encounter Visit Diagnoses Not on filedocumented in this encounter
--- OUTSIDE RECORDS SUMMARY | 2024-07-02 04:43 | XMS_ITS | Encounter Summary ---
Author Organization [facility] Address [address] [place] [address] Care Team Providers Care Cotton Picker Name Role Phone Priya Mora MD Primary Care Provider Reason for Visit * Reason Onset Date Comments Order 04/19/2018 Encounter Details Date Type Department Care Team (Late st Contact Info) Description 04/19/2018 Telephone [facility] Medical [facility] - CONTROL CLERK AUDITING [address] [place] [address] Leatha Gupta MD [address] [place] [address] Order Social History Tobacco Use [...] encounter Miscellaneous Notes * Telephone Encounter - Kamilah Kiran RN - 04/19/2018 5:15 PM CDT I faxed orders to [facility] Central Scheduling for Betina's mammogram and reprinted order for her right breast u/s. (to [phone]) The fax did not go through so I called [facility] to get the correct number for the fax at [facility] Scheduling as the number they gave me yesterday was incorrect). I faxed the orders to [phone] and received confirmation that 2 pages went through. * Telephone Encounter - [place] haley - 04/19/2018 3:47 PM CDT Patient called E to set up the US and was told that she has to have a Mamm within 30 days so she will need order for the mamm sent to [facility] documented in this encounter Plan of Treatment Upcoming Encounters Date Type Department Care Team (Late st Contact Info) Description 07/19/2024 9:45 AM MANUFACTURING SOFTWARE ENGINEER Office Visit [facility] - CONTROL CLERK AUDITING [address] [place] [address] Leatha Gupta MD [facility] [place] [address] 12/11/2024 9:00 AM CDT Office Visit [facility] - Surgery [address] [facility], [address] [place] [address] [place] [address] [place] [address] 12/11/2024 10:40 AM CDT Office Visit [facility] Cancer Care [address] [place] [address] Bernardo Lizarraga MD [address] [place] [address] documented as of this encounter Visit Diagnoses Not on filedocumented in this encounter Care Teams Cotton Picker Relationship Specialty [place] [address] [address] PCP - General Family Medicine 09/07/13 05/13/20 documented as of this encounter
--- OUTSIDE RECORDS SUMMARY | 2024-07-02 04:43 | XMS_ITS | Encounter Summary ---
Author Organization [facility] Address [address] [facility] [place] [place] [address] Care Team Providers Care Newspaper Subscription Solicitor Name Role Phone Priya oMra MD Primary Care Provider Reason for Referral * Radiology Services (Routine) - Closed Specialty Diagnoses / Procedures Referred By Contlulu t Referred To Contact Diagnoses Unspecified lump in the right breast, unspecified quadrant Procedures MAMMO DIAG DIRECT DIGITAL IMAGE UNIL RIGHT Leatha Gupta MD [address] [place] [address] [place] [address] Referral ID Status Reason Start Date Expiration Date Visits Re quested Visits Authorized [id number] Closed 04/19/2018 10/16/2018 1 1 Encounter Details Date Type Department Care Team (Late st Contact Info) Description 04/19/2018 Orders Only [facility] Group - GAME MASTER [address] [place] [address] Leatha Gupta MD [address] [place] [address] Unspecified lump in the right breast, unspecified quadrant Social History Tobacco [...] st Contact Info) Description 07/19/2024 9:45 AM AUTOMOTIVE HARDWARE ENGINEER Office Visit [facility] - GAME MASTER [address] [place] [address] Leatha Gupta MD [address] [place] [address] 12/11/2024 9:00 AM CDT Office Visit [facility] - Surgery [address] [facility], [address] [place] [address] [place] [address] [address] [facility] [address] [place] [address] 12/11/2024 10:40 AM CDT Office Visit [facility] Cancer Care [address] [place] [address] [address] [place] [address] [place] [address] [facility] [address] [place] [address] Scheduled Orders Name Type Priority Associated Diagnoses Orde r Schedule MAMMO DIAG DIRECT DIGITAL IMAGE UNIL RIGHT Imaging Routine Unspecified lump in the right breast, unspecified quadrant 1 Occurrences starting 04/19/2018 until 04/19/2019 documented as of this encounter Visit Diagnoses Diagnosis Unspecified lump in the right breast, unspecified quadrant- Primary documented in this encounter Care Teams Newspaper Subscription Solicitor Relationship Specialty Start [place] [address] [place] [address] PCP - General Family Medicine 09/07/13 05/13/20 documented as of this encounter
--- OUTSIDE RECORDS SUMMARY | 2024-07-02 04:43 | XMS_ITS | Encounter Summary ---
Author Organization [facility] Address [address] [facility] [place] [address] Care Team Providers Care Zig Zag Spring Machine Operator Name Role Phone Priya Mora MD Primary Care Provider Encounter Details Date Type Department Care Team (Late Contact Info) Description 12/24/2016 Orders Only [facility] [address] [place] [address] Teresita De Paz Breast asymmetry Social History Tobacco Use Types Packs/Day Years Used Date Smoking Tobacco: Never Sex and Gender Information Value Date Recorded Sex Assigned at Female 10/08/2021 2:50 AM CDT Gender Identity Female 10/08/2021 2:50 AM CDT Sexual Orientation Straight 10/08/2021 2: 50 AM CDT documented as of this encounter Plan of Treatment Upcoming Encounters Date Type Department Care Team (Late Contact Info) Description 07/19/2024 9:45 AM LABORER STORES Office Visit [facility] - COMPOUNDING PHARMACY TECHNICIAN [address] [place] [address] Leatha Gupta MD [address] [place] [address] 12/11/2024 9:00 AM CDT Office Visit [facility] - Surgery [address] [place] [address], [address] [place] [address] [place] [id number] [place] [address] [address] [place] [address] 12/11/2024 10:40 AM CDT Office Visit [facility] [address] [place] [address]. [address] [place] [address] [place] [address] [facility] [address] [place] [address] documented as of this encounter Procedures Procedure Name Priority Date/Time Associated Diagnosis Comments MAMMO RIGHT DIAGNOSTIC Routine 12/03/2016 Breast asymmetry documented in this encounter Results * MAMMO DIAG DIRECT DIGITAL IMAGE UNIL RIGHT (12/03/2016) Anatomical Region Laterality Modality Breast Right Mammography Leatha Gupta MD MAMMO ORDERABLES documented in this encounter Visit Diagnoses Diagnosis Breast asymmetry Other specified disorders of breast documented in this encounter Care Teams Zig Zag Spring Machine Operator Relationship Specialty [place] [address] [facility] [address] [place] [phone] PCP - General Family Medicine 09/07/13 05/13/20 documented as of this encounter
--- OUTSIDE RECORDS SUMMARY | 2024-07-02 04:43 | XMS_ITS | Encounter Summary ---
Author Organization [facility] Address [address] [facility] [place] [address] Care Team Providers Care Dialysis Chief Equipment Technician Name Role Phone Priya Mora MD Primary Care Provider Reason for Visit * Reason Onset Date Comments Results 12/14/2016 Encounter Details Date Type Department Care Team (Late st Contact Info) Description 12/14/2016 Telephone [facility] - TAXI DANCER [address] [place] [address] Leatha Gupta MD [address] [place] [address] Results Social History Tobacco Use Types Packs/Day Years Used Date Smoking Tobacco: Never Sex and Gender Information Value Date Recorded Sex Assigned at Female 10/08/2021 2:50 AM CDT Gender Identity Female 10/08/2021 2:50 AM CDT Sexual Orientation Straight 10/08/2021 2: 50 AM CDT documented as of this encounter Miscellaneous Notes * Telephone Encounter - Belem Salamanca APRN-CNP - 12/14/2016 3:47 PM CDT Received report from PAULA - faxed order for right breast spot compression views and right breast USto [phone]. Patient notified orders were sent and she should call for appt. * Telephone Encounter - Belem Salamanca APRN-CNP - 12/14/2016 1:55 PM CDT Returned call - patient needs order for spot compression view and right breast ultrasound. Had mammogram had [facility] - no report yet. Called radiology at [facility] - will fax order to us. * Telephone Encounter - Sheba Cardenas - 12/14/2016 10:27 AM CDT Patient had mamm last week and got a letter that she needs addtional mamm and ultra sound she had [facility] and will need order documented in this encounter Plan of Treatment Upcoming Encounters Date Type Department Care Team (Late st Contact Info) Description 07/19/2024 9:45 AM ENVIRONMENTAL HEALTH TECHNOLOGIST Office Visit [facility] - TAXI DANCER [address] [place] [address] Leatha Gupta MD [address] [place] [address] 12/11/2024 9:00 AM CDT Office Visit [facility] - Surgery [address] [place] [address], [address] [address] [place] [address] [address] 12/11/2024 10:40 AM CDT Office Visit [facility] Cancer Care [address] [place] [address] Bernardo Lizarraga MD [address] [place], [place] [address]SERG [address]ANTOS [address] [address] documented as of this encounter Visit Diagnoses Not on filedocumented in this encounter Care Teams Dialysis Chief Equipment Technician Relationship Specialty [place] [address] [address] PCP - General Family Medicine 09/07/13 05/13/20 documented as of this encounter
--- OUTSIDE RECORDS SUMMARY | 2024-07-02 04:43 | XMS_ITS | Encounter Summary ---
Author Organization [facility] Health Address [address] [place] [address] Care Team Providers Care Mechanism Inspector Name Role Phone Priya Mora MD Primary Care Provider Naya Leonard DO Unavailable [phone] Bernardo Lizarraga MD Unavailable [phone] Celina Sifuentes MD Primary Care Provider [phone] Keisha Pineda Primary Care Pr ovider Encounter Details Date Type Department Care Team (Late st Contact Info) Description 05/10/2018 [facility] Outpatient Visit [facility] SC[facility] [address] [place] [address] [place] [address] [address] Social History Tobacco Use Types Packs/Day [...] (Late Contact Info) Description 07/19/2024 9:45 AM ASSISTANT PROFESSOR OF ENGLISH Office Visit [facility] - CHEMICAL PROCESS PROJECT ENGINEER [address] [place] [address] Leatha Gupta MD [address] [place] [address] 12/11/2024 9:00 AM CDT Office Visit [facility] - Surgery [address] [facility], [address] [place] [address] [place] [address] [facility] [address] [place] [address] 12/11/2024 10:40 AM CDT Office Visit [facility] [address] [place] [address] Nat[address]el. [address] [place] [address] [place] [address] [facility] [address] [place] [address] documented as of this encounter Visit Diagnoses Not on filedocumented in this encounter Care Teams Mechanism Inspector Relationship Specialty [place] [address] [phone] PCP - General Family Medicine 09/07/13 05/13/20 Celina Sifuentes MD [address] [place] [address] PCP - General Family Medicine 02/16/23 11/14/23 Keisha Pineda PA [address] [place] [phone] PCP - General Physician Benefits Counselor 11/15/23 [place] [address] [place] [address] Surgical Oncologist Surgical Oncology 02/15/23 [place] [address] [address] [facility] [address] [facility] [place] [address] Veterinary Meat Inspector/Oncologist Hematology and Oncology 02/16/23 documented as of this encounter
--- OUTSIDE RECORDS SUMMARY | 2024-07-02 04:43 | XMS_ITS | Encounter Summary ---
Author Organization [facility] Address [address] [place] [address] Care Team Providers Care Leveler Helper Name Role Phone Priya Mora MD Primary Care Provider Reason for Visit * Reason Comments Stonemason Supervisor Exam WWE Encounter Details Date Type Department Care Team (Late st Contact Info) Description 12/08/2016 10:45 AM CDT Office Visit [facility] Medical [facility] - BICYCLE INSPECTOR [address] [place] [address] Leatha Gupta MD [address] [place] [address] Well woman exam (Primary Dx); Uses oral contraception; PCOS (polycystic ovarian syndrome) Social History Tobacco Use Types Packs/Day Years Used Date Smoking Tobacco: Never Sex and Gender Information Value Date Recorded Sex Assigned at Female 10/08/2021 2:50 AM CDT Gender Identity Female 10/08/2021 2:50 AM CDT Sexual Orientation Straight 10/08/2021 2: 50 AM CDT documented as of this encounter Last Filed Vital Signs Vital Sign Reading Time Taken Comments Blood Pressure 117/54 12/08/2016 11:12 AM CDT Pulse - - Temperature - - Respiratory Rate - - Oxygen Saturation - - Inhaled Oxygen Concentration - - Weight 93.9 kg (207 lb) 12/08/2016 11:12 AM CDT Height 163.8 cm (5' 4.5 ) 12/08/2016 11:12 AM CD T Body Mass Index 34.98 12/08/2016 11:12 AM CDT documented in this encounter Progress Notes * Leatha Gupta MD - 12/08/2016 3:21 PM CDT Well Woman Yearly Exam (Premenopausal) HISTORY: Betina Coy is a 46 y.o. female, Patient's last menstrual period was 11/16/2016 (approximate)., here for a Well Woman exam. Just had her dae last week. Had pap in 2014. Stopped her metformin because got letter from insurance stating needed more info. Other than gaining some weight not noticing any changes. No complaints otherwise. Menses: regular monthly cycle without intermenstrual spotting. Past Medical History: Diagnosis Date ??? MVP (mitral valve prolapse) ??? PCOS (polycystic ovarian syndrome) Past Surgical History: Procedure Laterality Date ??? Bunionectomy ??? Hemorrhoidectomy Social History Social History ??? Marital status: Spouse name: N/A ??? Number of children: N/A ??? Years of education: N/A Occupational History ??? Not on file. Social History Main Topics ??? Smoking status: Never Smoker ??? Smokeless tobacco: Not on file ??? Alcohol use Not on file ??? Drug use: Not on file ??? Sexual activity: Yes control/ protection: Pill Other Topics Concern ??? Not on file Social History Narrative ??? No narrative on file No Known Allergies OB History Para Term AB Living 3 3 3 3 SAB TAB Ectopic Multiple Live Births 3 Family History Problem Relation Age of Onset ??? Cancer - Breast Paternal Grandmother ??? Cancer - Prostate Paternal Grandfather Review of Systems Constitutional: No weight or appetite changes. : No UTIs, frequency, urgency, pain, hematuria, vaginal dryness or vaginal discharge. Skin: No rash, changing moles, or bruises. Psychiatric: No depression or suicidal ideation. No mood changes. Endocrine: No thyroid or diabetes problems. EXAMINATION BP 117/54 Ht 5' 4.5 Wt 207 lb BMI 34.98 kg/m2 Body mass index is 34.98 kg/(m^2). NEURO: The patient is oriented x3. NECK: Supple and symmetrical, without any masses. Thyroid is normal without any masses or enlargement. Trachea is midline. BREASTS: Nontender, without any masses or discharge. No tissue texture changes or dimpling. The patient is counseled on breast self-exam. SKIN: No rashes, lesions, or ulcers. ABDOMEN: Soft with good bowel sounds x4 quadrants. No masses or tenderness noted. There is no liveror spleen enlargement. No evidence of hernia. EXT: Nontender, nonedematous There is no clubbing or cyanosis. LYMPHATIC: No supraclavicular, axillary or inguinal adenopathy. EGBUS: Without any lesions or abnormalities. Normal Bartholin's and Ephesus's. Vagina: Moist, pink rugae without any lesions. Well supported with no evidence of relaxation. Cervix: Closed, without any lesions. Uterus: Small, mobile, nontender. Well supported. Adnexa: Nontender without palpable masses. Urinary: Urethral meatus normal without palpable masses. Urethra without masses or tenderness. No suprapubic tenderness associated with bladder. Rectovaginal: Deferred. ASSESSMENT ICD-10-CM 1. Well woman exam Z01.419 2. Uses oral contraception Z30.41 3. PCOS (polycystic ovarian syndrome) E28.2 Patient Active Problem List Diagnosis Date Noted ??? PCOS (polycystic ovarian syndrome) Priority: Not Prioritized ??? MVP (mitral valve prolapse) Priority: Not Prioritized PLAN Betina Coy is a 46 y.o. female, Patient's last menstrual period was 11/16/2016 (approximate)., here for a Well Woman exam 1. Preventative medicine: History of pap negative/HPV negative, plan repeat paps q 3 years. Breast self exam reviewed, patient encouraged to perform monthly. Routine Annual Mammograms recommended. 2. OCPs for PCOS Orders Placed This Encounter ??? LUTERA 0.1-20 MG-MCG tablet See orders, medications, patient instructions. documented in this encounter Plan of Treatment Upcoming Encounters Date Type Department Care Team (Late st Contact Info) Description 07/19/2024 9:45 AM CUSTOMER ADVISOR Office Visit [facility] - BICYCLE INSPECTOR [address] [place] [address] Leatha Gupta MD [address] [place] [address] 12/11/2024 9:00 AM CDT Office Visit [facility] - Surgery [address] [facility], [address] [place] [address] [place] [address] [address] [place] [address] 12/11/2024 10:40 AM CDT Office Visit [facility] Cancer Care [address] [facility] [address] [place] [address] [place] [address] [facility] 100 [place] [address] documented as of this encounter Visit Diagnoses Diagnosis Well woman exam- Primary Routine general medical examination at a health care facility Uses oral contraception PCOS (polycystic ovarian syndrome) Polycystic ovaries documented in this encounter Care Teams Leveler Helper Relationship Specialty [place] [address] [facility] [address] [place] [phone] PCP - General Family Medicine 09/07/13 05/13/20 documented as of this encounter
--- OUTSIDE RECORDS SUMMARY | 2024-07-02 04:43 | XMS_ITS | Encounter Summary ---
Author Organization [facility] Address [address] [facility] [place] [address] Care Team Providers Care Objects Conservator Name Role Phone Priya Mora MD Primary Care Provider Reason for Referral * - Closed Specialty Diagnoses / Procedures Referred By Contac t Referred To Contact Diagnoses Abdominal pain, unspecified site Procedures CT ABDOMEN AND PELVIS WITH IV CONTRAST Angeline Olmos MD [address] [place] [address] [facility] [address] [place] [address] Referral ID Status Reason Start Date Expiration Date Visits Re quested Visits Authorized [id number] Closed 09/07/2013 10/22/2013 1 1 AL DRILL OPERATOR Reason for Visit * - Closed Specialty Diagnoses / Procedures Referred By Contac t Referred To Contact Diagnoses Abdominal pain, unspecified site Procedures CT ABDOMEN AND [place] [address] [place] [address] [facility] [address] [place] [address] Referral ID Status Reason Start Date Expiration Date Visits Re quested Visits Authorized [id number] Closed 09/07/2013 10/22/2013 1 1 Encounter Details Date Type Department Care Team (Latest Contact Info) Description 09/07/2013 2:35 PM RADIAL DRILL OPERATOR - 09/07/2013 11:59 PM RADIAL DRILL OPERATOR Hospital Encounter [facility] Imaging [place] - [place] Scan [address] [place] [address] Angeline Olmos MD [address] [facility] [address] [place] [address] Discharge Disposition: Home or Self Care Social History Tobacco Use Types Packs/Day Years Used Date Smoking Tobacco: Never Assessed Sex and Gender Information Value Date Recorded Sex Assigned at Female 10/08/2021 2:50 AM CDT Gender Identity Female 10/08/2021 2:50 AM CDT Sexual Orientation Straight 10/08/2021 2: 50 AM CDT documented as of this encounter Miscellaneous Notes * Miscellaneous Scans - Document, Scanned - 11/06/2013 2:20 PM CDT documented in this encounter Plan of Treatment Upcoming Encounters Date Type Department Care Team (Late st Contact Info) Description 07/19/2024 9:45 AM RADIAL DRILL OPERATOR Office Visit [facility] - TEST DESIGNER [address] [place] [address] Leatha Gupta MD [address] [place] [address] 12/11/2024 9:00 AM CDT Office Visit [facility] - Surgery [address] [facility], [address] [place] [address] [place] [address] [place] [address] 12/11/2024 10:40 AM CDT Office Visit [facility] [address] [place] [address] [address] [place] [address] [place] [address] [address] [address] documented as of this encounter Procedures Procedure Name Priority Date/Time Associated Diagnosis Comments CT ABDOMEN PELVIS W CONTRAST Routine 09/07/2013 2:50 PM RADIAL DRILL OPERATOR Abdominal pain, unspecified site documented in this encounter Results * CT ABDOMEN AND PELVIS WITH IV CONTRAST (09/07/2013 2:50 PM RADIAL DRILL OPERATOR) Anatomical Region Laterality Modality Abdomen, Pelvis Computed Tomogra phy 09/07/2013 3:27 PM RADIAL DRILL OPERATOR Impressions 09/07/2013 4:27 PM RADIAL DRILL OPERATOR 2.35 cm right adnexal/ovarian cyst, otherwise, unremarkable. Edited by Stella Hoffman on 09/07/2013 3:34 PM Narrative 09/07/2013 4:27 [address] CT ABDOMEN WITH CONTRAST CT PELVIS WITH CONTRAST INDICATION: Right lower quadrant abdominal pain. TECHNIQUE: 5 mm images through the abdomen and pelvis with oral and intravenous contrast. 100 mL Omnipaque was injected intravenously. COMPARISON: None. FINDINGS: CT ABDOMEN Mild bibasilar atelectasis is demonstrated. The liver, gallbladder, spleen, pancreas, and adrenal glands show no acute abnormalities. There is no obstructive uropathy. No abdominal aortic aneurysm is present. There is no bowel obstruction. There is scattered content throughout the large bowel. CT PELVIS: The appendix is unremarkable. No periappendiceal inflammatory changes are seen. There is a right adnexal ovarian cyst measuring 2.35 cm. There is no free fluid. The urinary bladder is unremarkable. Calcified phleboliths are present in the pelvis. Procedure Note Scott Collado MD - 09/07/[address] CT [address] WITH CONTRAST CT PELVIS WITH CONTRAST INDICATION: Right lower quadrant abdominal pain. TECHNIQUE: 5 mm images through the abdomen and pelvis with oral and intravenous contrast. 100 mL Omnipaque was injected intravenously. COMPARISON: None. FINDINGS: CT ABDOMEN Mild bibasilar atelectasis is demonstrated. The liver, gallbladder, spleen, pancreas, and adrenal glands show no acute abnormalities. There is no obstructive uropathy. No abdominal aortic aneurysm is present. There is no bowel obstruction. There is scattered content throughout the large bowel. CT PELVIS: The appendix is unremarkable. No periappendiceal inflammatory changes are seen. There is a right adnexal ovarian cyst measuring 2.35 cm. There is no free fluid. The urinary bladder is unremarkable. Calcified phleboliths are present in the pelvis. IMPRESSION 2.35 cm right adnexal/ovarian cyst, otherwise, unremarkable. Edited by Stella Hoffman on 09/07/2013 3:34 PM Angeline Olmos MD CT ORDERABLES documented in this encounter Visit Diagnoses Diagnosis Abdominal pain, unspecified site documented in this encounter Administered Medications Inactive Administered Medications - up to 3 most recent administrations Medication Order MAR Action Action Date Dose Rate Site iohexol (OMNIPAQUE 350) contrast Intravenous, CONTRAST ONCE, Starting on Gema 09/07/13 at 1442, Until 09/08/13 at 0135 $ Given 09/07/2013 2:35 PM RADIAL DRILL OPERATOR 100 mL documented in this encounter Care Teams Objects Conservator Relationship Specialty [place] [address] [address] PCP - General Family Medicine 09/07/13 05/13/20 documented as of this encounter
--- OUTSIDE RECORDS SUMMARY | 2024-07-02 04:43 | XMS_ITS | Encounter Summary ---
Author Organization [facility] Address [address] [facility] [place] [address] Care Team Providers Care Fitness Leader Name Role Phone Priya Mora MD Primary Care Provider Reason for Visit * Reason Comments Well Women Exam pt here for WWE Encounter Details Date Type Department Care Team (Late st Contact Info) Description 01/03/2019 10:00 AM CDT Office Visit [facility] - ADVERTISING SALES CONSULTANT [address] [place] [address] Leatha Gupta MD [address] [place] [address] Well woman exam (Primary Dx); PCOS (polycystic ovarian syndrome); Uses oral contraception Social History Tobacco Use [...] Sign Reading Time Taken Comments Blood Pressure 124/72 01/03/2019 9:46 AM CDT Pulse - - Temperature - - Respiratory Rate - - Oxygen Saturation - - Inhaled Oxygen Concentration - - Weight 73.5 kg (162 lb) 01/03/2019 9:46 AM CDT Height 162.6 cm (5' 4 ) 01/03/2019 9:46 AM CDT Body Mass Index 27.81 01/03/2019 9:46 AM CDT documented in this encounter Progress Notes * Leatha Gupta MD - 01/03/2019 10:16 AM CDT Well Woman Yearly Exam HISTORY: Betina Coy is a 48 year old female, Patient's last menstrual period was 12/26/2018 (exact date)., here for a Well Woman exam. Had some breast cysts drained last year by Dr Leonard. Had paplast year. Menses: regular monthly cycle without intermenstrual spotting. Past Medical History: Diagnosis Date ??? MVP (mitral valve prolapse) ??? PCOS (polycystic ovarian syndrome) Past Surgical History: Procedure Laterality Date ??? Bunionectomy ??? Hemorrhoidectomy ??? OTHER SURGERY breast cyst aspiration Social History Social History ??? Marital status: Spouse name: N/A ??? Number of children: N/A ??? Years of education: N/A Occupational History ??? Not on file. Social History Main Topics ??? Smoking status: Never Smoker ??? Smokeless tobacco: Never Used ??? Alcohol use No ??? Drug use: No ??? Sexual activity: Yes control/ protection: Pill Other Topics Concern ??? Not on file Social History Narrative No Known Allergies OB History Para Term AB Living 3 3 3 3 SAB TAB Ectopic Multiple Live Births 3 Family History Problem Relation Age of Onset ??? Other Mother breast cyst Review of Systems Constitutional: No weight or appetite changes. : No UTIs, frequency, urgency, pain, hematuria, vaginal dryness or vaginal discharge. Skin: No rash, changing moles, or bruises. Psychiatric: No depression or suicidal ideation. No mood changes. Endocrine: No thyroid or diabetes problems. EXAMINATION BP 124/72 Ht 5' 4 Wt 162 lb BMI 27.81 kg/m2 Body mass index is 27.81 kg/(m^2). NEURO: The patient is oriented x3. [...] any lesions or abnormalities. Normal [place] and [place]'s. Vagina: Moist, pink rugae without any lesions. Cervix: Closed, without any lesions. Uterus: Small, mobile, nontender. Well supported. Adnexa: Nontender without palpable masses. Urinary: Urethral meatus normal without palpable masses. Urethra without masses or tenderness. No suprapubic tenderness associated with bladder. Rectovaginal: Deferred. ASSESSMENT ICD-10-CM 1. Well woman exam Z01.419 2. PCOS (polycystic ovarian syndrome) E28.2 3. Uses oral contraception Z30.41 Patient Active Problem List Diagnosis Date Noted ??? PCOS (polycystic ovarian syndrome) Priority: Not Prioritized ??? MVP (mitral valve prolapse) Priority: Not Prioritized PLAN Betina Coy is a 48 year old female, Patient's last menstrual period was 12/26/2018 (exact date)., here for a Well Woman exam 1. Preventative medicine: History of pap negative/HPV negative, plan repeat paps q 5 years. Routine Annual Mammograms recommended. Follow up one year 2. OCPs Orders Placed This Encounter ??? VIENVA 0.1-20 MG-MCG tablet See orders, medications, patient instructions. Leatha Gupta MD documented in this encounter Plan of Treatment Upcoming Encounters Date Type Department Care Team (Late st Contact Info) Description 07/19/2024 9:45 AM VIRTUALIZATION ENGINEER Office Visit [facility] - ADVERTISING SALES CONSULTANT [address] [address] Leatha Gupta MD [address] [place] [phone] 12/11/2024 9:00 AM CDT Office Visit [facility] - Surgery [address] [facility], [address] [place] [address] [place] [address] [address] [place] [address] 12/11/2024 10:40 AM CDT Office Visit [facility] [address] [facility] [address] [place] [address] [place] [address] [facility] [address] [place] [address] documented as of this encounter Visit Diagnoses Diagnosis Well woman exam- Primary Routine general medical examination at a health care facility PCOS (polycystic ovarian syndrome) Polycystic ovaries Uses oral contraception documented in this encounter Care Teams Fitness Leader Relationship Specialty [place] [address] [facility] [address] [place] [address] PCP - General Family Medicine 09/07/13 05/13/20 documented as of this encounter
--- OUTSIDE RECORDS SUMMARY | 2024-07-02 04:43 | XMS_ITS | Encounter Summary ---
Author Organization [facility] Address [address] [place] [address] Care Team Providers Care Bad Work Gatherer Name Role Phone Priya Mora MD Primary Care Provider Reason for Visit * Reason Comments Refill Request Encounter Details Date Type Department Care Team (Late Contact Info) Description 12/09/2017 Refill [facility] - TOOL AND DIE MAKER LEVEL FIVE [address] [place] [address] Leatha Gupta MD [address] [place] [address] Refill Request Social History Tobacco [...] (Late Contact Info) Description 07/19/2024 9:45 AM SENIOR PROCESS ANALYST Office Visit [facility] - TOOL AND [place] [address] Leatha Gupta MD [address] [facility] [place] [address] 12/11/2024 9:00 AM CDT Office [facility] - Surgery [address] [facility], [address] [place] [address] [place] [address] [facility] [address] [facility] [address] [place] [address] 12/11/2024 10:40 AM CDT Office Visit [facility] [address] [facility] [address] [place] [address] [place] [address] [facility] [address] [facility] [address] [place] [address] documented as of this encounter Visit Diagnoses Not on filedocumented in this encounter Care Teams Bad Work Gatherer Relationship Specialty [place] [address] [facility] [address] [place] [address] PCP - General Family Medicine 09/07/13 05/13/20 documented as of this encounter
--- OUTSIDE RECORDS SUMMARY | 2024-07-02 04:43 | XMS_ITS | Encounter Summary ---
Author Organization [facility] Address [address] [facility] [address] Care Team Providers Care Business Banking Sales Assistant Name Role Phone Priya Mora MD Primary Care Provider Encounter Details Date Type Department Care Team (Latest Contact Info) Description 09/07/2013 11:55 AM BOIL OFF MACHINE OPERATOR CLOTH - 09/07/2013 2:34 PM BOIL OFF MACHINE OPERATOR CLOTH Hospital Encounter [facility] - Laboratory [address] [place] [id number] Angeline Olmos MD [address] [address] Discharge Disposition: Home or Self Care Social History Tobacco Use Types Packs/Day Years Used Date Smoking Tobacco: Never Assessed Sex and Gender Information Value Date Recorded Sex Assigned at Female 10/08/2021 2:50 AM CDT Gender Identity Female 10/08/2021 2:50 AM CDT Sexual Orientation Straight 10/08/2021 2: 50 AM CDT documented as of this encounter Miscellaneous Notes * Miscellaneous Scans - Document, Scanned - 09/10/2013 12:06 AM CST OFF MACHINE OPERATOR CLOTH * Miscellaneous Scans - Document, Scanned - 09/10/2013 12:05 AM CST OFF MACHINE OPERATOR CLOTH documented in this encounter Plan of Treatment Upcoming Encounters Date Type Department Care Team (Late st Contact Info) Description 07/19/2024 9:45 AM BOIL OFF MACHINE OPERATOR CLOTH Office Visit [facility] - CUT OFF MACHINE HELPER [address] [place] [address] Leatha Gupta MD [address] [address] 12/11/2024 9:00 AM CDT Office Visit [facility] - Surgery [address] [facility], [address] [place] [address] [place] [address] [facility] [address] [place] [address] 12/11/2024 10:40 AM CDT Office Visit [facility] [address] [place] [address] [address] [place] [address] [place] [address] [address] [place] [address] documented as of this encounter Procedures Procedure Name Priority Date/Time Associated Diagnosis Comments COMPREHENSIVE METABOLIC PANEL Routine 09/07/2013 12:23 PM BOIL OFF MACHINE OPERATOR CLOTH Abdominal pain, unspecified site LIPASE BLOOD Routine 09/07/2013 12:23 PM BOIL OFF MACHINE OPERATOR CLOTH Abdominal pain, unspecified site AMYLASE BLOOD Routine 09/07/2013 12:23 PM BOIL OFF MACHINE OPERATOR CLOTH Abdominal pain, unspecified site CBC W AUTO DIFFERENTIAL Routine 09/07/2013 12:15 PM BOIL OFF MACHINE OPERATOR CLOTH Abdominal pain, unspecified site documented in this encounter Results * LIPASE BLOOD (09/07/2013 12:23 PM BOIL OFF MACHINE OPERATOR CLOTH) Lipase 147 73 - 393 U/L 09/07/2013 12:47 PM BOIL OFF MACHINE OPERATOR CLOTH [facility] Blood BLOOD SPECIMEN / Unknown Lab Venipuncture / Unknown 09/07/2013 12:23 PM BOIL OFF MACHINE OPERATOR CLOTH 09/07/2013 12:24 PM BOIL OFF MACHINE OPERATOR CLOTH Angeline Olmos MD LAB - CHEMISTRY [facility] Performing Organization Address City/[facility] Co de Phone Number [facility] [address] [place] [address] * AMYLASE BLOOD (09/07/2013 12:23 PM BOIL OFF MACHINE OPERATOR CLOTH) Amylase 49 15 - 115 U/L 09/07/2013 12:47 PM [facility] Blood BLOOD SPECIMEN / Unknown Lab Venipuncture / Unknown 09/07/2013 12:23 PM BOIL OFF MACHINE OPERATOR CLOTH 09/07/2013 12:24 PM BOIL OFF MACHINE OPERATOR CLOTH Angeline Olmos MD LAB - CHEMISTRY CHANEL FELIX Performing Organization Address [facility] de Phone Number [facility] [address] [place] [address] * (ABNORMAL) COMPREHENSIVE METABOLIC PANEL (09/07/2013 12:23 PM BOIL OFF MACHINE OPERATOR CLOTH) Glucose 87 74 - 106 mg/dL 09/07/2013 12:47 PM [facility] Sodium 140 136 - 145 mmol/L 09/07/2013 12:47 PM [facility] Potassium 4.0 3.5 - 5.1 mmol/L 09/07/2013 12:47 PM [facility] Chloride 105 98 - 107 mmol/L 09/07/2013 12:47 PM [facility] CO2 27 22 - 31 mmol/L 09/07/2013 12:47 PM [facility] Calcium 8.7 8.5 - 10.1 mg/dL 09/07/2013 12:47 PM [facility] Anion Gap 8 5 - 15 mmol/L 09/07/2013 12:47 PM [facility] BUN 8 7 - 21 mg/dL 09/07/2013 12:47 PM [facility] Creatinine 0.48(L) 0.50 - 1.30 mg/dL 09/07/2013 12:47 PM [facility] eGFR by MDRD >60 >60 mL/min/1.7 3m2 09/07/2013 12:47 PM [facility] eGFR by MDRD >60 >60 mL/min/1.7 3m2 09/07/2013 12:47 PM [facility] Alkaline Phosphatase 47 38 - 126 U/L 09/07/2013 12:47 PM [facility] ALT 39 12 - 78 U/L 09/07/2013 12:47 PM [facility] AST 26 5 - 40 U/L 09/07/2013 12:47 PM [facility] Protein Total 7.3 6.4 - 8.2 gm/dL 09/07/2013 12:47 PM [facility] Albumin 3.5 3.4 - 5.0 gm/dL 09/07/2013 12:47 PM [facility] Bilirubin Total 0.4 0.2 - 1.0 mg/dL 09/07/2013 12:47 PM [facility] Blood BLOOD SPECIMEN / Unknown Lab Venipuncture / Unknown 09/07/2013 12:23 PM BOIL OFF MACHINE OPERATOR CLOTH 09/07/2013 12:24 PM [facility] Angeline Olmos MD LAB - CHEMISTRY [facility] Organization Address City/State/[facility] Co de Phone Number [facility] [address] [place] [address] * (ABNORMAL) CBC W AUTO DIFFERENTIAL (09/07/2013 12:15 PM BOIL OFF MACHINE OPERATOR CLOTH) WBC 7.8 4.4 - 10.7 x10^9/L 09/07/2013 12:30 PM [facility] RBC 4.51 3.80 - 5.20 x10^12/L 09/07/2013 12:30 PM [facility] Hemoglobin 13.5 12.0 - 15.6 gm/dL 09/07/2013 12:30 PM [facility] Hematocrit 39.8 35.9 - 45.5 % 09/07/2013 12:30 PM [facility] MCV 88.2 80.7 - 98.3 fl 09/07/2013 12:30 PM [facility] MCH 29.9 26.7 - 34.0 pg 09/07/2013 12:30 PM [facility] MCHC 33.9 30.8 - 35.9 gm/dL 09/07/2013 12:30 PM [facility] Platelet Count 302 153 - 416 x10^9/L 09/07/2013 12:30 PM [facility] RDW-CV 12.9 12.1 - 14.9 % 09/07/2013 12:30 PM [facility] MPV 9.0(L) 9.4 - 12.9 fl 09/07/2013 12:30 PM [facility] Neutrophils % 71.9 44.0 - 73.0 % 09/07/2013 12:30 PM [facility] Lymphocytes % 17.4(L) 20.0 - 43.0 % 09/07/2013 12:30 PM [facility] Monocytes % 7.9 5.0 - 13.0 % 09/07/2013 12:30 PM [facility] Eosinophils % 2.1 0.0 - 6.0 % 09/07/2013 12:30 PM [facility] Basophils % 0.4 0.0 - 2.0 % 09/07/2013 12:30 PM [facility] Immature Granulocytes 0.3 0 - 1 % 09/07/2013 12:30 PM [facility] Neutrophil Absolute 5.59 2.01 - 7.14 x10^9/L 09/07/2013 12:30 PM [facility] Lymphocytes Absolute 1.35 1.07 - 3.94 x10^9/L 09/07/2013 12:30 PM [facility] Monocytes Absolute 0.61 0.26 - 1.07 x10^9/L 09/07/2013 12:30 PM [facility] Eosinophils Absolute 0.16 0 - 0.47 x10^9/L 09/07/2013 12:30 PM [facility] Basophils Absolute 0.03 0 - 0.08 x10^9/L 09/07/2013 12:30 PM [facility] Immature Granulocytes Absolute 0.02 0.00 - 0.06 x10^9/L 09/07/2013 12:30 PM [facility] Blood BLOOD SPECIMEN / Unknown Lab Venipuncture / Unknown 09/07/2013 12:15 PM BOIL OFF MACHINE OPERATOR CLOTH 09/07/2013 12:23 PM BOIL OFF MACHINE OPERATOR CLOTH Angeline Olmos MD LAB - HEMATOLOGY ORD ERABLES Performing Organization Address City/State/[facility] Co de Phone Number [facility] [address] [place] [address] documented in this encounter Visit Diagnoses Diagnosis Abdominal pain, unspecified site- Primary documented in this encounter Care Teams Business Banking Sales Assistant Relationship Specialty [place] [address] [address] PCP - General Family Medicine 09/07/13 05/13/20 documented as of this encounter
--- OUTSIDE RECORDS SUMMARY | 2024-07-02 04:43 | XMS_ITS | Encounter Summary ---
Author Organization [facility] Address [address] [facility] [address] [place] [address] Care Team Providers Care Labor Relations Director Name Role Phone Priya Mora MD Primary Care Provider Encounter Details Date Type Department Care Team (Late Contact Info) Description 05/23/2018 Orders Only [facility] [address] [place] [address] Hui Mcghee LPN Unspecified lump in the right breast, unspecified [...] (Late Contact Info) Description 07/19/2024 9:45 AM KNIFE FINISHER Office Visit [facility] - TRANSITIONAL CARE MANAGER [address] [place] [address] Leatha Gupta MD [address] [place] [address] 12/11/2024 9:00 AM CDT Office Visit [facility] - Surgery [address] [place] [address], [address] [address] [place] [address] [facility] [address] [place] [address] 12/11/2024 10:40 AM CDT Office Visit [facility] [address] [facility] [address] [place] [address] [place] [address] [facility] [address] [place] [address] documented as of this encounter Visit Diagnoses Diagnosis Unspecified lump in the right breast, unspecified quadrant documented in this encounter Care Teams Labor Relations Director Relationship Specialty [place] [address] [address] [facility] [address] [place] [phone] PCP - General Family Medicine 09/07/13 05/13/20 documented as of this encounter
--- OUTSIDE RECORDS SUMMARY | 2024-07-02 04:43 | XMS_ITS | Encounter Summary ---
Author Organization [facility] Address [address] [facility] [place] [address] Care Team Providers Care Lace Roller Operator Name Role Phone Priya Mora MD Primary Care Provider Reason for Referral * Radiology Services (Routine) - Closed Specialty Diagnoses / Procedures Referred By Sherie t Referred To Contact Diagnoses Breast asymmetry Procedures US BREAST RIGHT COMPLETE Leatha Gupta MD [address] [place] [address] Referral ID Status Reason Start Date Expiration Date Visits Re quested Visits Authorized [id number] Closed 12/14/2016 06/12/2017 1 1 * Radiology Services (Routine) - Closed Specialty Diagnoses / Procedures Referred By Sherie jacobo Referred To Contact Diagnoses Breast asymmetry Procedures MAMMO DIAG DIRECT DIGITAL IMAGE UNIL RIGHT Leatha Gupta MD [address] [place] [address] Referral ID Status Reason Start Date Expiration Date Visits Re quested Visits Authorized [id number] Closed 12/14/2016 06/12/2017 1 1 Encounter Details Date Type Department Care Team (Late st Contact Info) Description 12/14/2016 Orders Only [facility] - BANK ANALYST [facility] [place] [address] Leatha Gupta MD [address] [place] [address] Breast asymmetry Social History Tobacco Use Types [...] st Contact Info) Description 07/19/2024 9:45 AM AIR CARGO SPECIALIST SUPERVISOR Office Visit [facility] - BANK ANALYST [address] [place] [address] Leatha Gupta MD [address] [place] [address] 12/11/2024 9:00 AM CDT Office Visit [facility] - Surgery [address] [place] [address], [address] [place] [address] [place] [address] [address] 12/11/2024 10:40 AM CDT Office Visit [facility] [address] [place] [address] [address] Bernardo Lizarraga MD [address] [place] [address] [facility] [address] [place] [address] documented as of this encounter Results * US BREAST RIGHT COMPLETE (12/21/2016) Anatomical Region Laterality Modality Breast Right Ultrasound Leatha Gupta MD US ORDERABLES * MAMMO DIAG DIRECT DIGITAL IMAGE UNIL RIGHT (12/03/2016) Anatomical Region Laterality Modality Breast Right Mammography Leatha Gupta MD MAMMO ORDERABLES documented in this encounter Visit Diagnoses Diagnosis Breast asymmetry- Primary Other specified disorders of breast documented in this encounter Care Teams Lace Roller Operator Relationship Specialty [place] [address] [facility] [address] [place] [address] PCP - General Family Medicine 09/07/13 05/13/20 documented as of this encounter
--- OUTSIDE RECORDS SUMMARY | 2024-07-02 04:43 | XMS_ITS | Encounter Summary ---
Author Organization [facility] Address [address] [place] [address] Care Team Providers Care Laminator Name Role Phone Priya Mora MD Primary Care Provider Reason for Referral * Radiology Services (Routine) - Closed Specialty Diagnoses / Procedures Referred By Sherie jacobo Referred To Contact Diagnoses Visit for screening mammogram Procedures MAMMO BILAT SCREENING Leatha Gupta MD [address] [place] [address] Referral ID Status Reason Start Date Expiration Date Visits Re quested Visits Authorized [id number] Closed 01/04/2019 07/03/2019 1 1 Reason for Visit * Radiology Services (Routine) - Closed Specialty Diagnoses / Procedures Referred By Sherie jacobo Referred To Contact Diagnoses Visit for screening mammogram Procedures MAMMO BILAT SCREENING Leatha Gupta MD [address] [place] [address] Referral ID Status Reason Start Date Expiration Date Visits Re quested Visits Authorized [id number] Closed 01/04/2019 07/03/2019 1 1 Encounter Details Date Type Department Care Team (Late st Contact Info) Description 01/05/2019 11:41 AM CDT - 01/05/2019 11:59 PM CDT Hospital Encounter [facility] [address] [place] [id number] Leatha Gupta MD [address] [place] [address] Discharge Disposition: Home or Self [...] Sig Dispensed Refills Start Date End Date VIENVA 0.1-20 MG-MCG tablet Take 1 tablet by mouth once daily 3 packet 4 01/03/2019 02/16/2020 documented as of this encounter Plan of Treatment Upcoming Encounters Date Type Department Care Team (Late st Contact Info) Description 07/19/2024 9:45 AM LEAD MECHANIC Office Visit [facility] - SHEET METAL SMITH [facility] [place] [address] Leatha Gupta MD [address] [place] [address] 12/11/2024 9:00 AM CDT Office Visit [facility] - Surgery [address] [place] [address], [address] [place] [address] [place] [address] [address] [address] 12/11/2024 10:40 AM CDT Office Visit [facility] [address] [place] [address] [address] [place] [address] [address] [address] documented as of this encounter Procedures Procedure Name Priority Date/Time Associated Diagnosis Comments MAMMO BILAT SCREENING Routine 01/05/2019 12:22 PM CDT Visit for screening mammogram documented in this encounter Results * MAMMO BILAT SCREENING (01/05/2019 12:22 PM CDT) Anatomical Region Laterality Modality Breast Bilateral Mammography 01/05/2019 2:25 PM CDT Impressions 01/05/2019 2:27 PM CDT No mammographic evidence of malignancy in either breast. ASSESSMENT: BIRADS Category 2: Benign finding(s). RECOMMENDATION: Bilateral screening mammogram in one year. Thank you for allowing us to participate in the care of your patient. [facility] utilizes OrderMy[employer] as a reminder system to notify patients of their next recommended mammogram. Reading Radiologist: Sydnie Isabel MD on 01/05/2019 at 2:27 PM Narrative 01/05/2019 2:27 PM CDT EXAMINATION: Digital screening mammogram on 01/05/2019. Low-dose full-field digital breast tomosynthesis examination was performed with synthetic 2D images and 3D acquisitions. Computer assisted detection was utilized. PRIOR: Multiple prior mammograms from [facility], most recently 05/04/2018 and dating back to 2012. BREAST PARENCHYMAL DENSITY: The breasts are heterogeneously dense, which may obscure small masses. FINDINGS: No suspicious masses, areas of architectural distortion or microcalcifications are evident on synthetic 2D mammogram or tomosynthesis images. ??There are fluctuating oval masses in both breasts, consistent with benign cysts. Leatha Gupta MD MAMMO ORDERABLES documented in this encounter Visit Diagnoses Diagnosis Visit for screening mammogram Other screening mammogram documented in this encounter Care Teams Laminator Relationship Specialty [place] [address] [address] PCP - General Family Medicine 09/07/13 05/13/20 documented as of this encounter
--- OUTSIDE RECORDS SUMMARY | 2024-07-02 04:43 | XMS_ITS | Encounter Summary ---
Author Organization [facility] Address [address] [place] [address] Care Team Providers Care Human Resources Office Assistant Name Role Phone Priya Mora MD Primary Care Provider Reason for Referral * Radiology Services (Routine) - Closed Specialty Diagnoses / Procedures Referred By Sherie jacobo Referred To Contact Mammography Diagnoses Cyst of right breast Procedures [place] [address] [address] [place] [address] Referral ID Status Reason Start Date Expiration Date Visits Re quested Visits Authorized [id number] Closed 05/10/2018 11/06/2018 1 1 Reason for Visit * Reason Comments Evaluation Rt Breast lump Encounter Details Date Type Department Care Team (Late st Contact Info) Description 05/10/2018 1:30 PM CDT Office Visit [facility] - Surgery [address] [place] [address], [address] [place] [address] [place] [address] [address] [place] [address] Cyst of right breast (Primary Dx) Social History Tobacco Use Types [...] - - Weight 85.3 kg (188 lb) 05/10/2018 1:15 PM CDT Height 162.6 cm (5' 4 ) 05/10/2018 1:15 PM CDT Body Mass Index 32.27 05/10/2018 1:15 PM CDT documented in this encounter Patient Instructions * Patient Instructions* Sari Billings - 05/10/2018 1:18 PM CDT Patient's medications and allergies were reviewed with the patient today. Patient was instructed tocontact primary care physician or ordering provider with any questions regarding medications. documented in this encounter Progress Notes * Naya Leonard, - 05/10/2018 12:39 PM CDT Chief Complaint Abnormal breast imaging, right breast History of Present Illness: Betina Coy is an 47 y.o. female for evaluation of breast cysts. Patient is referred by Leatha Gupta MD. PCP is Priya Mora MD. Patient reports a mass in the right breast. Patient states that the mass has been present since February of 2018 but states she believes it has increased in size. She does report breast tenderness. She denies nipple discharge. Patient does routinely do self breast exams. Patient underwent imaging in December of 2017 which revealed stable right upper outer breast oval shaped asymmetric densities similar to prior study and were proven to be cyst on prior ultrasound. No dominant mass or suspicious microcalcification to suggest malignancy. Read as BIRADS 2. She had follow imaging in April after she reported the change and this revealed questionable two cysts at the 9 o'clock position of the right breast. No maternal family history of breast cancer. Paternal grandmother with breast cancer. Age of menarche was 13. Last menstrual period was 04/13/2018. Patient admits oral contraceptive use 18 years. Patient is . Age of first live was 22. Patient did not breast feed. Patient denies any previous breast surgery. Past Medical History: Diagnosis Date ??? MVP (mitral valve prolapse) ??? PCOS (polycystic ovarian syndrome) Past Surgical History: Procedure Laterality Date ??? Bunionectomy ??? Hemorrhoidectomy Outpatient Prescriptions Marked as Taking for the 05/10/18 encounter (Office Visit) with Naya Leonard, DO Medication Sig Dispense Refill ??? VIENVA 0.1-20 MG-MCG tablet Take 1 tablet by mouth once daily 3 packet 3 No Known Allergies Family History Problem Relation Age of Onset ??? Other Mother breast cyst Social History Substance Use Topics ??? Smoking status: Never Smoker ??? Smokeless tobacco: Never Used ??? Alcohol use No Review of Systems: General: No fatigue or weight loss Eyes: No vision changes or pain Neuro: No mental status changes or dizziness Cardiovascular: No chest pain or palpitations Pulmonary: No shortness of breath or wheezing. GI: No abdominal pain or distention. Musculoskeletal: No muscle pain or joint pain Skin: No rashes or texture changes Hematologic: No easy bruising or bleeding Rectal: No rectal bleeding or pain Breasts: Breast mass right, no nipple discharge. Physical Examination: BMI. Body mass index is 32.27 kg/(m^2). Constitutional: Vital signs are stable and the patient is no acute distress. Eyes: Reveal no icterus. Neck: Neck is supple without JVD or bruit. Respiratory: Lungs are clear. Cardiovascular: Regular rate and rhythm. GI: Abdomen is soft and non tender. Musculoskeletal: All four extremities are warm and well perfused. Neurologic: Intact. Breast: Right breast palpable cyst at the 9 o'clock position no nipple discharge or skin change Left breast normal breast exam without any skin changes or nipple discharge Data Reviewed: Ultrasound from reviewed today (imaging in PACS from 04/2018, report in Media from ) Impression/Plan: Right breast cysts, symptomatic. Diagnosis was discussed in detail with the patient. Options of observation versus cyst aspiration was discussed in detail with the patient. She does not like the idea of the cysts being there and would like to proceed with cyst aspiration. I have discussed the risks, benefits and alternatives to surgery with the patient who understands and wishes to proceed. Patient was encouraged to take Ibuprofen for pain prior to menstrual cycle and use of vitamin E. She will get a follow up right breast ultrasound in 3 months and I will see her back after. PROCEDURE NOTE Preoperative Diagnosis: Right breast cyst x2 Postoperative Diagnosis: Right breast cyst x2 Procedure: Aspiration of right breast x2 Surgeon: Naya Leonard DO Anesthesia: Local 1% lidocaine Condition: Stable in the office Description of Procedure: Once the right breast was prepped in the normal sterile manner, local anesthesia was used to infiltrate the area round two right breast cysts at the 9 o'clock position. Using ultrasound guidance, a spinal needle was used to aspirate 6ml of a brown colored fluid from one cyst and 1ml of brown colored fluid from the second cyst. The patient tolerated the procedure well and left the office in stablecondition. documented in this encounter Plan of Treatment Upcoming Encounters Date Type Department Care Team (Late st Contact Info) Description 07/19/2024 9:45 AM ELEVATOR INSPECTOR Office Visit [facility] - FOOTWEAR SALES ASSOCIATE [facility] [place] [address] Leatha Gupta MD [facility] [place] [address] 12/11/2024 9:00 AM CDT Office Visit [facility] - Surgery [address] [place] [address], [address] [place] [address] Naya Leonard DO [facility] SAM SANTOS [address] [address] 12/11/2024 10:40 AM CDT Office Visit [facility] [address] [place] [address] Bernardo Lizarraga MD [address] [place], [place] [address] [address] Scheduled Orders Name Type Priority Associated Diagnoses Orde r Schedule US BREAST RIGHT LTD Imaging Routine Cyst of right breast 1 Occurrences starting 05/10/2018 until 05/10/2018 documented as of this encounter Visit Diagnoses Diagnosis Cyst of right breast- Primary documented in this encounter Care Teams Human Resources Office Assistant Relationship Specialty [place] [address] [address] PCP - General Family Medicine 09/07/13 05/13/20 documented as of this encounter
--- OUTSIDE RECORDS SUMMARY | 2024-07-02 04:43 | XMS_ITS | Encounter Summary ---
Author Organization [facility] Address [address] [place] [address] Care Team Providers Care Tower Equipment Repairer Name Role Phone Priya Mora MD Primary Care Provider Reason for Visit * Reason Comments Refill Request Computer error Encounter Details Date Type Department Care Team (Late st Contact Info) Description 03/03/[address] [facility] - INSURANCE BILLING SPECIALIST [address] [place] [address] Leatha Gupta MD [address] [place] [address] Refill Request (Computer error) Social History Tobacco Use Types Packs/Day Years [...] Telephone Encounter - Kamilah Kiran RN - 03/03/2018 8:53 AM CDT I spoke with Frida at [facility] to see why they were requesting an new Rx for Betina's vienva when shewas just here in December and Dr Gupta e-prescribed a years worth of them. She checked the computer and she said it was taking them away when she backed out of the system, but she could see them when she went in. She apologized and said she'd fix it. documented in this encounter Plan of Treatment Upcoming Encounters Date Type Department Care Team (Late st Contact Info) Description 07/19/2024 9:45 AM DUMP MOTOR OPERATOR Office Visit [facility] - INSURANCE BILLING SPECIALIST [address] [place] [address] Leatha Gupta MD [address] [place] [address] 12/11/2024 9:00 AM CDT Office Visit [facility] - Surgery [address] [address] [place] [address] [address] 12/11/2024 10:40 AM CDT Office Visit [facility] [address] [place] [address] [place] [address] [address] documented as of this encounter Visit Diagnoses Not on filedocumented in this encounter Care Teams Tower Equipment Repairer Relationship Specialty [place] [address] [address] [facility] [address] [place] [id number] PCP - General Family Medicine 09/07/13 05/13/20 documented as of this encounter
--- OUTSIDE RECORDS SUMMARY | 2024-07-02 04:43 | XMS_ITS | Encounter Summary ---
Author Organization [facility] Address [address] [facility] [address] [place] [address] Care Team Providers Care Rocket Test Fire Worker Name Role Phone Priya Mora MD Primary Care Provider Encounter Details Date Type Department Care Team (Late Contact Info) Description 01/05/2017 Orders Only [facility] [address] [place] [address] Teresita De Paz Breast asymmetry Social History [...] (Late Contact Info) Description 07/19/2024 9:45 AM SHEARING MACHINE TENDER Office Visit [facility] - PROFILE MILL OPERATOR TAPE CONTROL [address] [place] [address] Leatha Gupta MD [address] [place] [address] 12/11/2024 9:00 AM CDT Office Visit [facility] - Surgery [address] [place] [address], [address] [place] [address] [place] [id number] [place] [address] [address] [place] [address] 12/11/2024 10:40 AM CDT Office Visit [facility] [address] [facility] [address] [place] [address] [place] [address] [facility] [address] [place] [address] documented as of this encounter Procedures Procedure Name Priority Date/Time Associated Diagnosis Comments US BREAST RIGHT COMPLETE Routine 12/21/2016 Breast asymmetry documented in this encounter Results * US BREAST RIGHT COMPLETE (12/21/2016) Anatomical Region Laterality Modality Breast Right Ultrasound Leatha Gupta MD US ORDERABLES documented in this encounter Visit Diagnoses Diagnosis Breast asymmetry Other specified disorders of breast documented in this encounter Care Teams Rocket Test Fire Worker Relationship Specialty [place] [address] [address] [facility] [address] [place] [phone] PCP - General Family Medicine 09/07/13 05/13/20 documented as of this encounter
--- OUTSIDE RECORDS SUMMARY | 2024-07-02 04:43 | XMS_ITS | Encounter Summary ---
Author Organization [facility] Address [address] [facility] [place] [address] Care Team Providers Care Chief Environmental Commitment Officer Name Role Phone Priya Mora MD Primary Care Provider Reason for Visit * Reason Comments Well Women Exam pt here for well wom en exam and has a ingroin hair and popped this morning Encounter Details Date Type Department Care Team (Late st Contact Info) Description 12/29/2017 9:30 AM CDT Office Visit [facility] - PRODUCTION CONTROL EXPERT [address] [place] [address] Leatha Gupta MD [address] [place] [address] Well woman exam (Primary Dx); [...] Sign Reading Time Taken Comments Blood Pressure 124/84 12/29/2017 9:15 AM CDT Pulse - - Temperature - - Respiratory Rate - - Oxygen Saturation - - Inhaled Oxygen Concentration - - Weight 90.9 kg (200 lb 6.4 oz) 12/29/2017 9:15 A M CDT Height 162.6 cm (5' 4 ) 12/29/2017 9:15 AM CDT Body Mass Index 34.4 12/29/2017 9:15 AM CDT documented in this encounter Progress Notes * Leatha Gupta MD - 12/29/2017 9:45 AM CDT Well Woman Yearly Exam HISTORY: Betina Coy is a 47 y.o. female, Patient's last menstrual period was 12/08/2017 (approximate)., here for a Well Woman exam. Due for dae. Had to do additional imaging last year for cysts. Will do 3D this year. Due for pap. Doing well with pills. Has a bump on the vulva she wants checked.Think it came to a head and drained. Menses: regular monthly cycle without intermenstrual spotting. [...] No thyroid or diabetes problems. EXAMINATION BP 124/84 Ht 5' 4 Wt 200 lb 6.4 oz BMI 34.4 kg/m2 Body mass index is 34.4 kg/(m^2). NEURO: The patient is oriented x3. [...] No supraclavicular, axillary or inguinal adenopathy. EGBUS: Small draining area of folliculitis Vagina: Moist, pink rugae without any lesions. Well supported with no evidence of relaxation. Cervix: Closed, without any lesions. Uterus: Small, mobile, nontender. Well supported. Adnexa: Nontender without palpable masses. Urinary: Urethral meatus normal without palpable masses. Urethra without masses or tenderness. No suprapubic tenderness associated with bladder. Rectovaginal: Deferred. ASSESSMENT ICD-10-CM 1. Well woman exam Z01.419 PAP IG LB+HPV APTIMA MAMMO BILAT SCREENING 2. Uses oral contraception Z30.41 3. PCOS (polycystic ovarian syndrome) E28.2 Patient Active Problem List Diagnosis Date Noted ??? PCOS (polycystic ovarian syndrome) Priority: Not Prioritized ??? MVP (mitral valve prolapse) Priority: Not Prioritized PLAN Betina Coy is a 47 y.o. female, Patient's last menstrual period was 12/08/2017 (approximate)., here for a Well Woman exam 1. Preventative medicine: PAP done Routine Annual Mammograms recommended. Follow up one year 2. OCPs Orders Placed This Encounter ??? MAMMO BILAT SCREENING ??? PAP IG LB+HPV APTIMA ??? VIENVA 0.1-20 MG-MCG tablet See orders, medications, patient instructions. Leatha Gupta MD documented in this encounter Plan of Treatment Upcoming Encounters Date Type Department Care Team (Late st Contact Info) Description 07/19/2024 9:45 AM SURVEY MANAGER Office Visit [facility] - PRODUCTION CONTROL EXPERT [address] [place] [address] Leatha Gupta MD [address] [place] [address] 12/11/2024 9:00 AM CDT Office Visit [facility] - Surgery [address] [facility], [address] [place] [address] [place] [address] [facility] [address] [place] [address] 12/11/2024 10:40 AM CDT Office Visit [facility] [address] [place] [address] [address] [place] [address] [place] [address] [place] [address] [address] [place] [address] documented as of this encounter Procedures Procedure Name Priority Date/Time Associated Diagnosis Comments PAP IG LB+HPV APTIMA Routine 12/29/2017 9:47 AM CDT Well woman exam documented in this encounter Results * PAP IG LB+HPV APTIMA (12/29/2017 9:47 AM CDT) Diagnosis [facility] ACCOUNT BILL Comment:NEGATIVE FOR INTRAEP ITHELIAL LESION AND MALIGNANCY. Specimen Adequacy [facility] ACCOUNT BILL Comment: Satisfactory for evaluation. ??Endocervical and/or squamous metaplastic cells (endocervical component) are present. Clinician Provided ICD10 [facility] ACCOUNT BILL Comment: Z01.419 Z30.41 E28.2 Performed by [facility] ACCOUNT BILL Comment:Jillian Johnson Cytoruthann chnologist (ASCP) Comment . [facility] ACCOUNT BILL Note [...] Negative Negative [facility] ACCOUNT BILL Comment: This test detects fourteen high-risk HPV types (16/18/31/33/35/39/45/ 51/52/56/58/59/66/68) without differentiation. PART OF UTERINE CERVIX / Unknown 12/29/2017 9:47 AM CDT 12/30/2017 Narrative [facility] ACCOUNT BILL - 12/31/2017 6:09 PM CDT No. of containers..01 ThinPrep Vial Resulting Agency Comment [facility] [place] [address] [facility] [place] [id number] Leatha Gupta MD LAB - PATHOLOGY/CYT OLOGY ORDERABLES [facility] ACCOUNT BILL [address] [place] [address] documented in this encounter Visit Diagnoses Diagnosis Well woman exam- Primary Routine general medical examination at a health care facility Uses oral contraception PCOS (polycystic ovarian syndrome) Polycystic ovaries documented in this encounter Care Teams Chief Environmental Commitment Officer Relationship Specialty Start [place] [address] [address] [facility] [address] [place] [address] PCP - General Family Medicine 09/07/13 05/13/20 documented as of this encounter
--- OUTSIDE RECORDS SUMMARY | 2024-07-02 04:43 | XMS_ITS | Encounter Summary ---
Author Organization [facility] Address [address] [place] [address] Care Team Providers Care Livestock Producer Name Role Phone Priya Mora MD Primary Care Provider Reason for Visit * Reason Comments Breast Mass pt here for knot in rt breast for 2 months that is getting bigger from a pea size and is tender Encounter Details Date Type Department Care Team (Late st Contact Info) Description 04/19/2018 3:30 PM CDT Office Visit [facility] - PSYCHOLOGIST EXPERIMENTAL [address] [place] [address] Leatha Gupta MD [address] [place] [address] Lump of breast, right (Primary Dx) Social History Tobacco Use Types [...] Sign Reading Time Taken Comments Blood Pressure 122/82 04/19/2018 3:20 PM CDT Pulse - - Temperature - - Respiratory Rate - - Oxygen Saturation - - Inhaled Oxygen Concentration - - Weight 85.5 kg (188 lb 9.6 oz) 04/19/2018 3:20 P M CDT Height 162.6 cm (5' 4 ) 04/19/2018 3:20 PM CDT Body Mass Index 32.37 04/19/2018 3:20 PM CDT documented in this encounter Progress Notes * Leatha Gupta MD - 04/20/2018 10:15 AM CDT Subjective: Betina Coy is a 47 y.o. female who presents with a chief complaint of right breast complaint. Has lost weight so not sure if there before and now just feeling it or if new. On prior mams has hadcyst in the right breast. When first felt thought it was the size of a pea and now feels larger. Not sore etc. Breast symptoms: a breast lump on exam She has had symptoms for: 2 months Last mammogram was December Past Medical History: Diagnosis Date ??? MVP [...] Systems Constitutional: No weight or appetite changes. Objective: EXAMINATION BP 122/82 Ht 5' 4 Wt 188 lb 9.6 oz BMI 32.37 kg/m2 Body mass index is 32.37 kg/(m^2). BREASTS: At the 9-10 o'clock position in the right breast is a 2 cm smooth mobile mass Assessment: ICD-10-CM 1. Lump of breast, right N63.10 US BREAST RIGHT COMPLETE Plan: Will do imaging and gave her the names of the breast surgeons we use. Orders Placed This Encounter ??? US BREAST RIGHT COMPLETE Standing Status: Future Standing Expiration Date: 04/19/2019 Order Specific Question: Exam to be performed? Answer: Per Radiologist protocol Leatha Gupta MD documented in this encounter Plan of Treatment Upcoming Encounters Date Type Department Care Team (Late st Contact Info) Description 07/19/2024 9:45 AM BACKGROUND INVESTIGATOR Office Visit [facility] - PSYCHOLOGIST EXPERIMENTAL [address] [place] [phone] Leatha Gupta MD [address] [place] [address] 12/11/2024 9:00 AM CDT Office Visit [facility] - Surgery [address], [address] [place] [address] [place] [address] [facility] [address] [place] [address] 12/11/2024 10:40 AM CDT Office Visit [facility] [id number] [place] [address] [address]. [address] [place] [phone] [place] [id number] [place] [phone] documented as of this encounter Visit Diagnoses Diagnosis Lump of breast, right- Primary Lump or mass in breast documented in this encounter Care Teams Livestock Producer Relationship Specialty [place] [address] [facility] [address] [place] [phone] PCP - General Family Medicine 09/07/13 05/13/20 documented as of this encounter
--- OUTSIDE RECORDS SUMMARY | 2024-07-02 04:44 | XMS_ITS | Encounter Summary ---
Author Organization [facility] Address [address] [place] [address] Phone Care Team Providers Care Cooler Service Supervisor Name Role Phone Caroline Avina APRN, CNP Primary Care P leizabeth Encounter Details Date Type Department Care Team (Late st Contact Info) Description 05/07/2020 Telephone [facility] - Primary Care - [place] [address] [place] [phone] Caroline Avina APRN, CNP [address] [place] [address] Social History Tobacco Use Types Packs/Day Years Used Date Smoking Tobacco: Never Smokeless Tobacco: Never Alcohol Use Standard Drinks/Week Comments Not Currently 0 (1 standard drink = 0.6 oz pur e alcohol) PHQ-2 Answer Date Recorded PHQ-2 Score 0 03/25/2019 Sexually Active Control Partners Comments Yes Oral Contraceptive Male Comments No Sex and Gender Information Value Date Recorded Sex Assigned at Not on file Legal Sex Female 9:41 AM CDT Gender Identity Not on file Sexual Orientation Not on file COVID-19 Exposure Response Date Recorded In the last month, have you been in contact with someone who was confirmed or suspected to have Coronavirus / COVID-19? Yes 05/05/2020 9:55 AM CDT documented as of this encounter Miscellaneous Notes * Telephone Encounter - Maxine Gonzalez RN - 05/07/2020 4:26 PM CDT Patient here to slate picker return to work letter for patient. documented in this encounter Plan of Treatment Not on file documented as of this encounter Visit Diagnoses Not on filedocumented in this encounter Additional Health Concerns Infection Onset Date Last Indicated Resolved Time COVID - 19 05/05/2020 05/05/2020 06/02/2020 12:1 8 AM COAGULATING BATH MIXER Assessment Noted Time PHQ-9 Depression Total Score: 0 02/01/20 10:00 AM CDT documented as of this encounter Care Teams Cooler Service Supervisor Relationship Specialty Start Date End Date Caroline Avina APRN, CYLINDER STEAMER [address] [place] [address] PCP - General Advanced Practice Nurse 01/31/19 documented as of this encounter
--- OUTSIDE RECORDS SUMMARY | 2024-07-02 04:44 | XMS_ITS | Encounter Summary ---
Author Organization [facility] Address [address] [facility] [place] [address] Phone Care Team Providers Care Promotional Representative Name Role Phone Caroline Avina APRN, CNP Primary Care P rovider Reason for Visit * Reason Onset Date Comments COVID-19 05/05/2020 Encounter Details Date Type Department Care Team ([facility] Contact Info) Description 05/05/2020 Telephone [facility] Digital Contact Center [address] [place] [address] Caroline Avina APRN, GLACIOLOGIST [address] [place] [address] COVID-19 Social History Tobacco Use Types Packs/Day Years [...] encounter Miscellaneous Notes * Telephone Encounter - Kaila Alarcon LPN - 05/05/2020 9:54 AM CDT Images from the original note were not included. Travel Screening Question Response In the last month, have you been in contact with someone who was confirmed or suspected to have Coronavirus / COVID-19? Yes Have you had a COVID-19 viral test in the last 14 days? No Do you have any of the following new or worsening symptoms? Muscle pain;Sore throat;Chills;Shortness of breath;Joint pain;Abdominal pain;Runny nose;Fatigue Have you traveled internationally in the last month? No Travel History Travel since 04/05/20 No documented travel since 04/05/20 Symptoms started Wednesday afternoon with achiness, sore throat , chills , abdominal pain , slight sob. 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 If the triage nurse is calling 911, notify the dispatcher of the positive screening. Screening Results: COVID-19 LIKE SYMPTOMS State to Patient: Based on your answers, I recommend that you please remain on the line while I transfer you to a triage nurse who can advise you further on next steps. Did patient refuse bundle helper? no. ??? If patient refuses to speak to a nurse: Please continue to monitor your symptoms and if they get worse, do not hesitate to call us back. We are here 01/02. We recommend you refer to the CDC website regarding guidelines for self- isolation and thank you for calling. Kaila Alarcon LPN documented in this encounter Plan of Treatment Not on file documented as of this encounter Visit Diagnoses Not on filedocumented in this encounter Additional Health Concerns Assessment Noted Time PHQ-9 Depression Total Score: 0 02/01/20 19 10:00 AM CDT documented as of this encounter Care Teams Promotional Representative Relationship Specialty Start Date End Date Caroline Avina APRN, GLACIOLOGIST [address] [place] [address] PCP - General Advanced Practice Nurse 01/31/19 documented as of this encounter
--- OUTSIDE RECORDS SUMMARY | 2024-07-02 04:44 | XMS_ITS | Encounter Summary ---
Author Organization [facility] Address [address] [facility] [place] [address] Phone Care Team Providers Care Airplane Designer Name Role Phone Caroline Avina APRN, CNP Primary Care P rovider Reason for Visit * Reason Onset Date Comments COVID-19 05/05/2020 Encounter Details Date Type Department Care Team ([facility] Contact Info) Description 05/05/2020 Nurse Triage [facility] Digital Contact Center [address] [place] [address] Caroline Avina APRN, FINE ARTS CHAIR [address] [place] [address] COVID-19 Social History Tobacco Use Types Packs/Day [...] encounter Miscellaneous Notes * Telephone Encounter - Dolores Dupont RN - 05/05/2020 10:07 AM CDT Images from the original note [...] since 04/05/20 No documented travel since 04/05/20 COVID-19 Testing Priority for Betina Coy: 3 Nurse to triage SITUATION: Patient calling with Covid like symptoms. BACKGROUND: Muscle pain;Sore throat;Chills;Shortness of breath;Joint pain;Abdominal pain;Runny nose;Fatigue ASSESSMENT: Symptom Description / Location: 3 days ago with sore throat that is constant. Feels chills and feels feverish but temperature reads normal. Shortness of breath since this am and feels winded with exertion. Abdominal pain-crampy this am. Runny nose with clear drainage. Body aches all over with weakness. Pain (0-10): 8/10 Temp: none Treatment / Response: tylenol and cough drops last night, none today. RECOMMENDATION: See care advice and disposition for Guidelines First positive answer recorded, all responses to prior questions were negative. If symptoms increase, change, or if new symptoms develop, call back or call your HCP. Recommendations were based on caller information and are not a diagnosis. Verified and reviewed all triage information with caller. Patient request for an excuse note: (Per CDC: Employers should not require a positive COVID-19 testresult or a healthcare provider's note for employees who are sick to validate their illness, qualify for sick leave, or to return to work.) o If patient continues to request/need a return to work note, ask them to send a request via Kwikpik to their provider (you may need to activate a Kwikpik account with them). You may also route an excuse note request to the provider. Inform the patient that the provider will determine if a note will be sent and let them know that a telephone visit may be required. Caller verbalizes understanding of the above information. DOLORES DUPONT RN Reason for Disposition ??? [1] COVID-19 infection suspected by caller or triager AND [2] mild symptoms (cough, fever, or others) AND [3] no complications or SOB Protocols used: CORONAVIRUS (COVID-19) DIAGNOSED OR [id number] documented in this encounter Plan of Treatment Not on file documented as of this encounter Visit Diagnoses Not on filedocumented in this encounter Additional Health Concerns Assessment Noted Time PHQ-9 Depression Total Score: 0 02/01/20 19 10:00 AM CDT documented as of this encounter Care Teams Airplane Designer Relationship Specialty Start Date End Date Caroline Avina APRN, FINE ARTS CHAIR [address] [place] [address] PCP - General Advanced Practice Nurse 01/31/19 documented as of this encounter
--- OUTSIDE RECORDS SUMMARY | 2024-07-02 04:44 | XMS_ITS | Encounter Summary ---
Author Organization [facility] Address [address] [place] [address] Phone Care Team Providers Care Parts Sales Representative Name Role Phone Provider, None Primary Care Provider Unavailabl e Leatha Gupta MD Unavailable Unavailabl e Reason for Visit * Reason Comments Flank Pain Encounter Details Date Type Department Care Team (Late st Contact Info) Description 06/01/2022 2:15 PM HOSPITAL EDUCATOR Office Visit [facility] - Primary Care - [place] [address] [place] [phone] Sy Garnica MD [address] [place], [place] [phone] Dysuria (Primary Dx) Discharge Disposition: Discharged to home or Selfcare Social History Tobacco Use Types Packs/Day Years Used Date Smoking Tobacco: Never Smokeless Tobacco: Never Tobacco Cessation:Counseling Given: Not Answered Alcohol Use Standard Drinks/Week Comments Not Currently [...] Exposure Response Date Recorded In the last 10 days, have yo u been in contact with someone who was confirmed or suspected to have Coronavirus/COVID-19? No / Unsure 06/01/2022 1:46 PM HOSPITAL EDUCATOR documented as of this encounter Last Filed Vital Signs Vital Sign Reading Time Taken Comments Blood Pressure 118/62 06/01/2022 2:01 PM HOSPITAL EDUCATOR Pulse 83 06/01/2022 2:01 PM HOSPITAL EDUCATOR Temperature 36.7 ??C (98 ??F) 06/01/2022 2:01 PM HOSPITAL EDUCATOR Respiratory Rate 16 06/01/2022 2:01 PM HOSPITAL EDUCATOR Oxygen Saturation 98% 06/01/2022 2:01 PM HOSPITAL EDUCATOR Inhaled Oxygen Concentration - - Weight 93 kg (205 lb) 06/01/2022 2:01 PM HOSPITAL EDUCATOR Height 162.6 cm (5' 4 ) 06/01/2022 2:01 PM HOSPITAL EDUCATOR Body Mass Index 35.19 06/01/2022 2:01 PM HOSPITAL EDUCATOR documented in this encounter Functional Status * Question Answer Date of Assessment Author Little interest or pleasure in doing things Not at all 06/01/2022 2:00 PM Sagar Valentin RMA Feeling down, depressed, or hopeless Not at all 06/01/2022 2:00 PM HOSPITAL EDUCATOR Caitlyn Ya RMA * Over the past 2 weeks, how often have you been bothered by any of the following problems? Question Answer Date of Assessment Author Patient Health Questionnaire -2 Score 0 06/01/2022 2:00 PM HOSPITAL EDUCATOR Caitlyn Ya RMA documented as of this encounter Progress Notes * Caitlyn Ya RMA - 06/01/2022 2:15 PM CST Betina Coy, 51 y.o., female is here for Flank Pain Medication Refills: Patient reports/denies need for medication refills. Orders Pended: no Requested Prescriptions No prescriptions requested or ordered in this encounter Home Medications Medication Sig Start Date End Date Taking? Authorizing Provider Ascorbic Acid (VITAMIN C PO) Take by mouth. Patient not taking: Reported on 06/01/2022 Luisa Jean-Baptiste MD BIOTIN FORTE PO Take by mouth. Patient not taking: Reported on 06/01/2022 Luisa Jean-Baptiste MD Cholecalciferol (VITAMIN D PO) Take by mouth. Patient not taking: Reported on 06/01/2022 Luisa Jean-Baptiste MD KRILL OIL PO Take 700 mg by mouth. Patient not taking: Reported on 06/01/2022 Luisa Jean-Baptiste MD Melatonin 10 MG Tablet Take by mouth. Yes Luisa Jean-Baptiste MD Multiple Vitamins-Minerals (WOMENS MULTI PO) Take by mouth. Yes Luisa Jean-Baptiste MD Probiotic Product (PROBIOTIC DAILY PO) Take by mouth. Patient not taking: Reported on 06/01/2022 Luisa Jean-Baptiste MD Psyllium (METAMUCIL PO) Take by mouth. Yes Luisa Jean-Baptiste MD VIENVA 0.1-20 MG-MCG Tablet TK 1 T PO QD 01/04/19 Yes Luisa Jean-Baptiste MD VITAMIN E PO Take by mouth. Patient not taking: Reported on 06/01/2022 Luisa Jean-Baptiste MD There are no discontinued medications. I have reviewed the home medication list with the patient and have reconciled discrepancies. The list is accurate to the best of my knowledge. Smoking Status: Social History Tobacco Use ??? Smoking status: Never ??? Smokeless tobacco: Never Vaping Use ??? Vaping Use: Never used Substance Use Topics ??? Alcohol use: Not Currently ??? Drug use: Never Smoking Cessation Counseling Given: no Health Care Maintenance: Health Maintenance Due Topic Date Due ??? Hepatitis B Immunization (1 of 3 - 3-dose series) Never done ??? Colorectal Cancer Screening Never done ??? Zoster Immunization (1 of 2) Never done ??? Pap Smear 12/29/2020 ??? SARS-COV-2 Immunization (4 - Booster for Pfizer series) 06/29/2021 Orders Pended: no The following BPA's have been addressed with the patient today: Depression ITAL EDUCATOR * Sy Garnica MD - 06/01/2022 2:15 PM CST Subjective: HPI Patient presents with complaint of low abdominal discomfort for the past few days. During this timeshe has noted some radiation around to the right flank. She also experiences increased discomfort with urination. Urinary volumes have been lower than normal and less frequent. Denies any fever, chills, nausea, vomiting or diarrhea. Review of Systems Constitutional: Negative. HENT: Negative. Eyes: Negative. Respiratory: Negative. Cardiovascular: Negative. Gastrointestinal: Positive for abdominal pain (Suprapubic and right flank). Endocrine: Negative. Genitourinary: Positive for dysuria, frequency and urgency. Musculoskeletal: Negative. Skin: Negative. Allergic/Immunologic: Negative. Neurological: Negative. Hematological: Negative. Psychiatric/Behavioral: Negative. Objective: Physical Exam Constitutional: Appearance: She is well-developed. HENT: Head: Normocephalic. Eyes: Pupils: Pupils are equal, round, and reactive to light. Abdominal: General: Bowel sounds are normal. There is no distension. Palpations: Abdomen is soft. There is no mass. Tenderness: There is abdominal tenderness (mild) in the right lower quadrant and suprapubic area. There is right CVA tenderness (mild). There is no guarding. Musculoskeletal: Lumbar back: Normal. Skin: General: Skin is warm and dry. Neurological: Mental Status: She is alert and oriented to person, place, and time. Psychiatric: Mood and Affect: Mood is anxious (slight). Speech: Speech normal. Behavior: Behavior normal. Thought Content: Thought content normal. Assessment and Plan See Diagnoses, Orders, Follow-up, and Instructions Problem List Items Addressed This Visit None Visit Diagnoses Dysuria - Primary Relevant Medications sulfamethoxazole-trimethoprim DS (Bactrim DS) 800-160 MG Tablet Other Relevant Orders URINALYSIS REFLEX IF INDICATED BY ABNORMAL RESULTS Check urinalysis and urine culture. Bactrim DS b.i.d. for 3 days ordered. Further treatment pendingreview of culture results. I have seen and examined the patient on today's date. Documentation for this visit was completed using the assistance of a template. Everything documented in this visit was personally performed todaywith the necessary additions, deletions and changes. ITAL EDUCATOR documented in this encounter Plan of Treatment Not on file documented as of this encounter Results * (ABNORMAL) URINALYSIS REFLEX IF INDICATED BY ABNORMAL RESULTS (06/01/2022 2:31 PM HOSPITAL EDUCATOR) SPECIFIC GRAVITY 1.015 1.003 - 1.030 06/01/2022 3:25 PM HOSPITAL EDUCATOR [facility] URINE PH 7.0 5.0 - 9.0 06/01/2022 3:25 PM HOSPITAL EDUCATOR [facility] WBC ESTERASE Negative Negative 06/01/2022 3:25 PM HOSPITAL EDUCATOR [facility] NITRITE Negative Negative 06/01/2022 3:25 PM HOSPITAL EDUCATOR [facility] PROTEIN, RANDOM URINE 15 mg/dL(A) Negative 06/01/2022 3:25 PM HOSPITAL EDUCATOR [facility] URINE GLUCOSE, QUAL Negative Negative 06/01/2022 3:25 PM HOSPITAL EDUCATOR [facility] URINE KETONES Negative Negative 06/01/2022 3:25 PM HOSPITAL EDUCATOR [facility] UROBILINOGEN Normal Normal mg/dL 06/01/2022 3:25 PM HOSPITAL EDUCATOR [facility] URINE BLOOD 25 /uL(A) Negative sue/ul 06/01/2022 3:25 PM HOSPITAL EDUCATOR [facility] URINALYSIS COLOR Yellow 06/01/20 3:25 PM HOSPITAL EDUCATOR [facility] URINALYSIS CLARITY Slightly Cloudy 06/01/2022 3:25 PM HOSPITAL EDUCATOR [facility] WBC (Urine) 0-5 Negative, 0-5 /hpf 06/01/2022 3:25 PM HOSPITAL EDUCATOR [facility] URINE RBC'S 3-5(A) Negative, 0-2 /hpf 06/01/2022 3:25 PM HOSPITAL EDUCATOR [facility] EPITHELIAL CELLS Small amount /lpf 2021 3:25 PM HOSPITAL EDUCATOR [facility] BACTERIA, URINE Few(A) Negative /hpf 06/01/2022 3:25 PM HOSPITAL EDUCATOR [facility] CRYSTALS Amorphous urates 06/01/2022 3:25 PM HOSPITAL EDUCATOR [facility] Urine URINE SPECIMEN COLLECTION, CLEAN CATCH / Unknown Non-Phlebotomy Collection / Unknown 06/01/2022 2:31 PM HOSPITAL EDUCATOR 06/01/2022 2:31 PM HOSPITAL EDUCATOR us Sy Garnica MD URINE ORDERABLES Final Re sult [facility] [address] [place] [address] documented in this encounter Visit Diagnoses Diagnosis Dysuria- Primary documented in this encounter Additional Health Concerns Assessment Noted Time PHQ-9 Depression Total Score: 0 02/01/20 19 10:00 AM CDT documented as of this encounter Care Teams Parts Sales Representative Relationship Specialty Start Date End Date Provider, None [place] PCP - General 03/12/22 Leatha Gupta MD [place] Consulting Physician Obstetrics & Gynecology 06/01/22 documented as of this encounter
--- OUTSIDE RECORDS SUMMARY | 2024-07-02 04:44 | XMS_ITS | Encounter Summary ---
Author Organization [facility] Address [address] [facility] [place] [address] Phone Care Team Providers Care Commanding Officer Homicide Squad Name Role Phone Caroline Avina APRN, CNP Primary Care P elizabeth Reason for Visit * Reason Onset Date Comments Need Order 07/08/2021 BAM Encounter Details Date Type Department Care Team ([facility] st Contact Info) Description 07/08/2021 Telephone [facility] [address] [place] [address] Caroline Avina APRN, RV REPAIR TECHNICIAN [address] [place] [address] Need Order (BAM) Social History Tobacco Use Types Packs/Day Years [...] on file Sexual Orientation Not on file documented as of this encounter Miscellaneous Notes * Telephone Encounter - Bernadette Harrington CMA - 07/09/2021 9:08 AM CST BAM paperwork faxed to [facility] with success. ESSOR OF PHYSICAL EDUCATION * Telephone Encounter - Whitney Burden RN - 07/08/2021 3:45 PM CST Pt scheduled for PCR. ESSOR OF PHYSICAL EDUCATION * Telephone Encounter - Bernadette Harrington CMA - 07/08/2021 3:34 PM CST [facility] Coy notified, verbalized understanding. Agreeable to testing. Drive- up appointment scheduled for tomorrow morning. Order pended. ESSOR OF PHYSICAL EDUCATION * Telephone Encounter - Caroline Avina APRN, CNP - 07/08/2021 3:30 PM CST Needs PCR or antigen positive to fax with request ESSOR OF PHYSICAL EDUCATION * Telephone Encounter - Bernadette Harrington CMA - 07/08/2021 3:11 PM CST Called [facility] regarding request. Symptoms started 07/04/21. Took home test on 07/05/21 and it was positive. If request approved by provider, will also need to have patient come in and have a PCR confirmationtest before being able to refer. ESSOR OF PHYSICAL EDUCATION * Telephone Encounter - Jillian Cabral - 07/08/2021 2:58 PM CST Patient calling to see about getting referral for BAM infusion. ESSOR OF PHYSICAL EDUCATION documented in this encounter Plan of Treatment Not on file documented as of this encounter Results * (ABNORMAL) POCT SARS ANTIGEN KELVIN (07/09/2021 8:20 AM PROFESSOR OF PHYSICAL EDUCATION) POC SARS ANTIGEN KELVIN Positive(A) Negative POC SARS ANTIGEN KELVIN CONTROL Motel Clerk Pass Swab NASAL STRUCTURE / Unknown 07/09/2021 8:20 AM PROFESSOR OF PHYSICAL EDUCATION Caroline Avina APRN, CNP POINT OF CARE T ESTING (MANUAL) Final Result documented in this encounter Visit Diagnoses Diagnosis Encounter for screening for COVID-19- Primary documented in this encounter Additional Health Concerns Infection Onset Date Last Indicated Resolved Time COVID - 19 07/08/2021 07/09/2021 07/28/2021 12:1 7 AM PROFESSOR OF PHYSICAL EDUCATION COVID - 19 Confirmed 07/09/2021 07/09/2021 022 12:16 AM PROFESSOR OF PHYSICAL EDUCATION Assessment Noted Time PHQ-9 Depression Total Score: 0 02/01/20 19 10:00 AM CDT documented as of this encounter Care Teams Commanding Officer Homicide Squad Relationship Specialty Start Date End Date Caroline Avina APRN, SELAM [address] [place] [address] PCP - General Advanced Practice Nurse 01/31/19 documented as of this encounter
--- OUTSIDE RECORDS SUMMARY | 2024-07-02 04:44 | XMS_ITS | Encounter Summary ---
Author Organization [employer] Care Team Providers Care Film Sound Engineer Name Role Phone Provider, None Primary Care Provider Leatha Ford MD Unavailashanti e Encounter Details Date Type Department Care Team (Latest Contact Info) Description 06/01/2022 Travel Social History Tobacco Use Types Packs/Day [...] Coronavirus/COVID-19? No / Unsure 06/01/2022 1:46 PM DISABILITY RATER documented as of this encounter Functional Status * Question Answer Date of Assessment Author Little interest or pleasure in doing things Not at all 06/01/2022 2:00 PM Sagar Valentin RMA Feeling down, depressed, or hopeless Not at all 06/01/2022 2:00 PM Caitlyn Valentin RMA * Over the past 2 weeks, how often have you been bothered by any of the following problems? Question Answer Date of Assessment Author Patient Health Questionnaire -2 Score 0 06/01/2022 2:00 PM Caitlyn Valentin RMA documented as of this encounter Plan of Treatment Not on file documented as of this encounter Visit Diagnoses Not on filedocumented in this encounter Additional Health Concerns Assessment Noted Time PHQ-9 Depression Total Score: 0 02/01/20 19 10:00 AM CDT documented as of this encounter Care Teams Film Sound Engineer Relationship Specialty Start Date End Date Provider, None [place] PCP - General 03/12/22 Leatha Gupta MD [place] Consulting Physician Obstetrics & Gynecology 06/01/22 documented as of this encounter
--- OUTSIDE RECORDS SUMMARY | 2024-07-02 04:44 | XMS_ITS | Encounter Summary ---
Author Organization [facility] Address [address] [facility] [place] [address] Phone Care Team Providers Care Ehs Engineer Name Role Phone Caroline Avina APRN, SELAM Primary Care P elizabeth Reason for Visit * Reason Comments COVID-19 Encounter Details Date Type Department Care Team ([facility] Contact Info) Description 05/05/2020 11:00 AM CDT Telemedicine [facility] Digital Contact Center [address] [place] [address] Oumou Balderrama APRN, TILTING SAW OPERATOR [address] [place] [address] Exposure to COVID-19 virus (Primary Dx); Fatigue, unspecified type; Rhinorrhea; Sore throat; Chest tightness; Shortness of breath; Abdominal pain, unspecified abdominal location; Myalgia; Nonintractable headache, unspecified chronicity pattern, unspecified headache type; Feels feverish; Hypercholesteremia Discharge Disposition: Discharged to home or Selfcare [...] as of this encounter Progress Notes * Oumou Balderrama, ALBERT, SELAM - 05/05/2020 11:00 AM CDT Images from the original note were not included. [facility] SUBJECTIVE Chief Complaint Patient presents with ??? COVID-19 Patient called into the COVID hotline for COVID like illness. Patient reports contact with a Confirmed COVID positive person 04/29. Patient reports a history of elavated cholesterol. Patient denies any other cardiac or respiratory history. The history is provided by the patient. COVID-19 This is a new problem. Episode onset: 05/05. Associated symptoms include abdominal pain ( intestinal cramping ), chills, fatigue, headaches, myalgias and a sore throat (no white patches). Pertinent negatives include no chest pain, coughing, fever, nausea or weakness. Treatments tried: tylenol and cough drops. The treatment provided mild relief. No Known Allergies Past Medical History Positives Diagnosis Date ??? Hypothyroid Social History Substance and Sexual Activity Alcohol Use Not Currently Social History Tobacco Use Smoking Status Never Smoker Smokeless Tobacco Never Used Current Outpatient Medications on File Prior to Visit Medication Sig Dispense Refill ??? Ascorbic Acid (VITAMIN C PO) Take by mouth. ??? BIOTIN FORTE PO Take by mouth. ??? Cholecalciferol (VITAMIN D PO) Take by mouth. ??? KRILL OIL PO Take 700 mg by mouth. ??? Melatonin 10 MG Tablet Take by mouth. ??? Multiple Vitamins-Minerals (WOMENS MULTI PO) Take by mouth. ??? Probiotic Product (PROBIOTIC DAILY PO) Take by mouth. ??? Psyllium (METAMUCIL PO) Take by mouth. ??? VIENVA 0.1-20 MG-MCG Tablet TK 1 T PO QD 4 ??? VITAMIN E PO Take by mouth. No current facility-administered medications on file prior to visit. Patient Active Problem List Diagnosis ??? MVP (mitral valve prolapse) ??? PCOS (polycystic ovarian syndrome) ??? Hypercholesteremia Review of Systems Constitutional: Positive for chills and fatigue. Negative for fever. Feeling feverish; staying hydrated HENT: Positive for rhinorrhea and sore throat (no white patches). Eyes: Negative for visual disturbance. Eye burning Respiratory: Positive for chest tightness and shortness of breath (winded; resolves quickly with rest). Negative for cough and wheezing. Cardiovascular: Negative for chest pain. Gastrointestinal: Positive for abdominal pain ( intestinal cramping ). Negative for diarrhea and nausea. Genitourinary: Negative for decreased urine volume and difficulty urinating. Musculoskeletal: Positive for myalgias. Neurological: Positive for headaches. Negative for weakness. Chief complaint and all history documented by ancillary staff were reviewed and verified with additions or corrections as appropriate. OBJECTIVE Speaking in complete sentences. No distress or coughing noted during dialogue. ASSESSMENT/PLAN Education (as applicable): - Discussed further in-person evaluatio including option of [facility] visit at this time. Pt declined further evaluation at this time. Pt would like to use conservative management and remain home. Discussed risks associated with this decision and pt voices understanding. - Patient counseled to remain at home unless symptoms get worse. If symptoms worsen, the patient was counseled to call back to their PCP office (or this triage line if no PCP) or go to ED immediatelyfor severe symptoms. - If asymptomatic and had close contact with COVID-19 positive individual(s): quarantine at home for 14 days for symptom monitoring. - If symptomatic or symptoms develop within those 14 days of quarantine, stay home until these three things have happened: - No fever for 24 hours (without the use of medicine) AND - Other symptoms have improved (ie cough, SOB) AND - at least 10 days have passed since your symptoms first appeared - Patient to push fluid intake and take Tylenol PRN for fever, body aches. - If you do not live alone: segregate yourself, use a separate bathroom if possible, sleep in a separate area, have no/limited family time, and the person with symptoms is not to prepare food for others. - Patient advised to contact employer now to report positive screen and symptoms. -For [facility] who are COVID confirmed but were not exposed at work. The MP will need a return to work note from a MD or COMPA. These notes can be obtained preferably by PCP. However, notes can be obtained from [facility] or [facility]. If the MP is positive due to a workplace exposure, theMP should work with his or her leader to coordinate return with occupational health. - Per CDC: Employers should not require a positive COVID-19 test result or a healthcare provider's note for employees who are sick to validate their illness, qualify for sick leave, or to return to work. [facility] is not providing excuse for work notes or return to work notes at this time per CDC recommendations. Caller verbalizes understanding of the above information. Recommended disposition of Home self-care supported by the above documentation. Patient agreed withdisposition. Diagnoses and all orders for this visit: Exposure to COVID-19 virus - SARS-COV-2 BY MOLECULAR Fatigue, unspecified type - SARS-COV-2 BY MOLECULAR Rhinorrhea - SARS-COV-2 BY MOLECULAR Sore throat - SARS-COV-2 BY MOLECULAR Chest tightness - SARS-COV-2 BY MOLECULAR Shortness of breath - SARS-COV-2 BY MOLECULAR Abdominal pain, unspecified abdominal location - SARS-COV-2 BY MOLECULAR Myalgia - SARS-COV-2 BY MOLECULAR Nonintractable headache, unspecified chronicity pattern, unspecified headache type - SARS-COV-2 BY MOLECULAR Hypercholesteremia - SARS-COV-2 BY MOLECULAR Patient to go to [facility] was notified and will call the schedule. Patient was assessed via telephone for a duration of 0-15 minutes. Patient verbally consented for this service to be performed. - Oumou Balderrama APN, TILTING SAW OPERATOR documented in this encounter Plan of Treatment Not on file documented as of this encounter Procedures Procedure Name Priority Date/Time Associated Diagnosis Comments SARS-COV-2 BY MOLECULAR Routine 05/05/2020 1:38 PM CDT Exposure to COVID-19 virus Fatigue, unspecified type Rhinorrhea Sore throat Chest tightness Shortness of breath Abdominal pain, unspecified abdominal location Myalgia Nonintractable headache, unspecified chronicity pattern, unspecified headache type Hypercholesteremia Feels feverish documented in this encounter Results * SARS-COV-2 BY MOLECULAR (05/05/2020 1:38 PM CDT) SARSCOV2 NOT DETECTED (Referenc e Range for this test is Not Detected) [facility] THERMOFISHER FAST DX 05/06/2020 11:09 PM CDT [facility] Swab NASOPHARYNGEAL STRUCTURE / Unknown Non-Phlebotomy Collection / Unknown 05/05/2020 1:38 PM CDT 05/05/2020 1:38 PM CDT Narrative [facility] - 05/06/2020 11:09 PM CDT Authorized Fact Sheets about this test for providers and patients are available at: https://www.fda.gov/medical-devices/ybmggtmmm-skjijwprvi-mlfhlxh-devices/emergen -us e-authorizations us Oumou Balderrama APRN, SELAM MICROBIOLOGY - GENERAL O RDERABLES Final Result [facility] [address] [place] [address], documented in this encounter Visit Diagnoses Diagnosis Exposure to COVID-19 virus- Primary Fatigue, unspecified type Rhinorrhea Other diseases of nasal cavity and sinuses Sore throat Acute pharyngitis Chest tightness Other chest pain Shortness of breath Abdominal pain, unspecified abdominal location Myalgia Mylagia and myositis, unspecified Nonintractable headache, unspecified chronicity pattern, unspecified headache type Feels feverish Fever, unspecified Hypercholesteremia Pure hypercholesterolemia documented in this encounter Additional Health Concerns Assessment Noted Time PHQ-9 Depression Total Score: 0 02/01/20 19 10:00 AM CDT documented as of this encounter Care Teams Ehs Engineer Relationship Specialty Start Date End Date Caroline Avina APRN, TILTING SAW OPERATOR [address] [place] [address] PCP - General Advanced Practice Nurse 01/31/19 documented as of this encounter
--- OUTSIDE RECORDS SUMMARY | 2024-07-02 04:44 | XMS_ITS | Encounter Summary ---
Author Organization [facility] Address [address] [place] [address] Phone Care Team Providers Care Fitness Floor Attendant Name Role Phone Caroline Avina APRN, SELAM Primary Care P elizabeth Encounter Details Date Type Department Care Team (Late st Contact Info) Description 07/09/2021 8:15 AM TRANSPLANT RN Lab [facility] - [facility] [place] [address] [place] [address] Testing, [facility] Nurse [place] Encounter for screening for COVID-19 Discharge Disposition: Discharged to home or Selfcare [...] on file documented as of this encounter Progress Notes * Wayne Fernández RMA - 07/09/2021 8:15 AM CST Patient presents to [facility] for COVID 19 swab. Bilateral nares swabbed with no difficulty and patient tolerated well. SPLANT RN documented in this encounter Plan of Treatment Not on file documented as of this encounter Procedures Procedure Name Priority Date/Time Associated Diagnosis Comments POCT SARS ANTIGEN KELVIN Routine 07/09/2021 8:20 AM TRANSPLANT RN Encounter for screening for COVID-19 documented in this encounter Results * (ABNORMAL) POCT SARS ANTIGEN KELVIN (07/09/2021 8:20 AM TRANSPLANT RN) POC SARS ANTIGEN KELVIN Positive(A) Negative POC SARS ANTIGEN KELVIN CONTROL Design Eng Pass Swab NASAL STRUCTURE / Unknown 07/09/2021 8:20 AM TRANSPLANT RN Caroline Avina APRN, CNP POINT OF CARE T ESTING (MANUAL) Final Result documented in this encounter Visit Diagnoses Diagnosis Encounter for screening for COVID-19 documented in this encounter Additional Health Concerns Infection Onset Date Last Indicated Resolved Time COVID - 19 07/08/2021 07/09/2021 07/28/2021 12:1 7 AM TRANSPLANT RN Assessment Noted Time PHQ-9 Depression Total Score: 0 02/01/20 10:00 AM CDT documented as of this encounter Care Teams Fitness Floor Attendant Relationship Specialty Start Date End Date Caroline Avina APRN, CNP [address] [place] [address] PCP - General Advanced Practice Nurse 01/31/19 documented as of this encounter
--- OUTSIDE RECORDS SUMMARY | 2024-07-02 04:44 | XMS_ITS | Encounter Summary ---
Author Organization [facility] Address [address] [place] [address] Phone Care Team Providers Care Gas Plant Specialist Name Role Phone Provider, None Primary Care Provider Leatha Ford MD Unavailashanti e Encounter Details Date Type Department Care Team (Late st Contact Info) Description 06/01/2022 2:40 PM CHECK WRITING MACHINE OPERATOR Lab [facility] - Primary [facility] [address] [phone] Lab, [facility] Dysuria Discharge Disposition: Discharged to home or Selfcare [...] Coronavirus/COVID-19? No / Unsure 06/01/2022 1:46 PM CHECK WRITING MACHINE OPERATOR documented as of this encounter Functional Status * Question Answer Date of Assessment Author Little interest or pleasure in doing things Not at all 06/01/2022 2:00 PM CHECK WRITING MACHINE OPERATOR Sagar Ya, JOYCE Feeling down, depressed, or hopeless Not at all 06/01/2022 2:00 PM CHECK WRITING MACHINE OPERATOR Caitlyn Ya RMA * Over the past 2 weeks, how often have you been bothered by any of the following problems? Question Answer Date of Assessment Author Patient Health Questionnaire -2 Score 0 06/01/2022 2:00 PM CHECK WRITING MACHINE OPERATOR Caitlyn Ya RMA documented as of this encounter Progress Notes * Jillian Dias - 06/01/2022 2:40 PM CST UA Sent to [facility] WRITING MACHINE OPERATOR documented in this encounter Plan of Treatment Not on file documented as of this encounter Procedures Procedure Name Priority Date/Time Associated Diagnosis Comments URINALYSIS REFLEX IF INDICATED BY ABNORMAL RESULTS Routine 06/01/2022 2:31 PM CHECK WRITING MACHINE OPERATOR Dysuria documented in this encounter Results * (ABNORMAL) URINALYSIS REFLEX IF INDICATED BY ABNORMAL RESULTS (06/01/2022 2:31 PM CHECK WRITING MACHINE OPERATOR) SPECIFIC GRAVITY 1.015 1.003 - 1.030 06/01/2022 3:25 PM CHECK WRITING MACHINE OPERATOR [facility] URINE PH 7.0 5.0 - 9.0 06/01/2022 3:25 PM CHECK WRITING MACHINE OPERATOR [facility] WBC ESTERASE Negative Negative 06/01/2022 3:25 PM CHECK WRITING MACHINE OPERATOR [facility] NITRITE Negative Negative 06/01/2022 3:25 PM CHECK WRITING MACHINE OPERATOR [facility] PROTEIN, RANDOM URINE 15 mg/dL(A) Negative 06/01/2022 3:25 PM CHECK WRITING MACHINE OPERATOR [facility] URINE GLUCOSE, QUAL Negative Negative 06/01/2022 3:25 PM CHECK WRITING MACHINE OPERATOR [facility] URINE KETONES Negative Negative 06/01/2022 3:25 PM CHECK WRITING MACHINE OPERATOR [facility] UROBILINOGEN Normal Normal mg/dL 06/01/2022 3:25 PM CHECK WRITING MACHINE OPERATOR [facility] URINE BLOOD 25 /uL(A) Negative sue/ul 06/01/2022 3:25 PM CHECK WRITING MACHINE OPERATOR [facility] URINALYSIS COLOR Yellow 06/01/20 3:25 PM CHECK WRITING MACHINE OPERATOR [facility] URINALYSIS CLARITY Slightly Cloudy 06/01/2022 3:25 PM CHECK WRITING MACHINE OPERATOR [facility] WBC (Urine) 0-5 Negative, 0-5 /hpf 06/01/2022 3:25 PM CHECK WRITING MACHINE OPERATOR [facility] URINE RBC'S 3-5(A) Negative, 0-2 /hpf 06/01/2022 3:25 PM CHECK WRITING MACHINE OPERATOR [facility] EPITHELIAL CELLS Small amount /lpf 2021 3:25 PM CHECK WRITING MACHINE OPERATOR [facility] BACTERIA, URINE Few(A) Negative /hpf 06/01/2022 3:25 PM CHECK WRITING MACHINE OPERATOR [facility] CRYSTALS Amorphous urates 06/01/2022 3:25 PM CHECK WRITING MACHINE OPERATOR [facility] Urine URINE SPECIMEN COLLECTION, CLEAN CATCH / Unknown Non-Phlebotomy Collection / Unknown 06/01/2022 2:31 PM CHECK WRITING MACHINE OPERATOR 06/01/2022 2:31 PM CHECK WRITING MACHINE OPERATOR us Sy Garnica MD URINE ORDERABLES Final Re sult [facility] [address] [place] [address] documented in this encounter Visit Diagnoses Diagnosis Dysuria documented in this encounter Additional Health Concerns Assessment Noted Time PHQ-9 Depression Total Score: 0 02/01/20 19 10:00 AM CDT documented as of this encounter Care Teams Gas Plant Specialist Relationship Specialty Start Date End Date Provider, None [place] PCP - General 03/12/22 Leatha Gupta MD [place] Consulting Physician Obstetrics & Gynecology 06/01/22 documented as of this encounter
--- OUTSIDE RECORDS SUMMARY | 2024-07-02 04:44 | XMS_ITS | Encounter Summary ---
Author Organization [employer] Care Team Providers Care Replenishment Merchandising Associate Name Role Phone Caroline Avina APRN, CNP Primary Care [phone] Encounter Details Date Type Department Care Team (Latest Contact Info) Description 05/05/2020 Travel Social History Tobacco Use Types Packs/Day [...] 19 05/05/2020 05/05/2020 06/02/2020 12:1 8 AM AIRCRAFT ENGINEER Assessment Noted Time PHQ-9 Depression Total Score: 0 02/01/20 19 10:00 AM CDT documented as of this encounter Care Teams Replenishment Merchandising Associate Relationship Specialty Start Date End Date Caroline Avina APRN, CNP [address] [place] [address] PCP - General Advanced Practice Nurse 01/31/19 documented as of this encounter
--- OUTSIDE RECORDS SUMMARY | 2024-07-02 04:44 | XMS_ITS | Encounter Summary ---
Author Organization [facility] Address [address] [place] [address] Phone Care Team Providers Care Candy Starch Mold Printer Name Role Phone Caroline Avina APRN, CNP Primary Care P judithder Reason for Visit * Reason Onset Date Comments Health Maintenance 12/22/2021 Encounter Details Date Type Department Care Team (Late st Contact Info) Description 12/22/2021 Telephone [facility] - Primary [facility] - [place] [address] [place] [address] Caroline Avina APRN, CNP [address] [place] [address] Health Maintenance Social History Tobacco Use Types Packs/Day Years [...] Miscellaneous Notes * Telephone Encounter - Bernadette Harrington, MANAGER PERIOPERATIVE - 12/22/2021 3:08 PM CDT Mammogram results in [facility]. Dated 05/22/20. Please update Health Maintenance accordingly. documented in this encounter Plan of Treatment Not on file documented as of this encounter Visit Diagnoses Not on filedocumented in this encounter Additional Health Concerns Assessment Noted Time PHQ-9 Depression Total Score: 0 02/01/20 19 10:00 AM CDT documented as of this encounter Care Teams Candy Starch Mold Printer Relationship Specialty Start Date End Date Caroline Avina APRN, BOILER TECHNICIAN [address] [place] [address] PCP - General Advanced Practice Nurse 01/31/19 documented as of this encounter
--- OUTSIDE RECORDS SUMMARY | 2024-07-02 04:44 | XMS_ITS | Encounter Summary ---
Author Organization [facility] Address [address] [facility] [place] [address] Phone Care Team Providers Care Tile Conduit Layer Name Role Phone Provider, None Primary Care Provider Unavailabl e Leatha Gupta MD Unavailable Unavailabl e Reason for Visit * Reason Onset Date Comments Abdominal Pain 06/01/2022 Flank Pain 06/01/2022 Encounter Details Date Type Department Care Team (Late st Contact Info) Description 06/01/2022 Nurse Triage [facility] [address] [place] [address] Provider, None [place] Abdominal Pain; Flank Pain Social History Tobacco Use Types Packs/Day [...] encounter Miscellaneous Notes * Telephone Encounter - Teresita Muhammad RN - 06/01/2022 8:17 AM CST SITUATION: Betina is calling with concerns about abdominal pain and kidney infection BACKGROUND: Hypercholesterolemia, polycystic ovarian syndrome ASSESSMENT: Symptom Description / Location: Started Wednesday afternoon Right side abdominal pain and flank pain only on urination Abdominal pain is gassy pain that comes and goes No trouble getting urine to come out Urine has a different odor; thought it was because of having asparagus Wednesday night but it has continued to today Urine is bright yellow, slight cloudiness Decreased appetite since yesterday due to abdominal pain Drinking fine Bowel movements have been fairly normal Pain (0-10): flank pain, intermittent, 6-8/10 Stabbing pain on urination Temp: no fever noted Treatment / Response: Advil, Tylenol, Mylanta, Tums, Gas-X LMP / / : 05/23/22 RECOMMENDATION: See care advice and disposition for Guideline First positive answer recorded, all responses to prior questions were negative. If symptoms increase, change or if new symptoms develop, call your HCP or call back. Recommendations were based on caller information and is not a diagnosis. Verified and reviewed all triage information with caller. Reason for Disposition ? ? MODERATE pain (e.g., interferes with normal activities that comes and goes (cramps) lasts > 24 hours (Exception: pain with Vomiting or Diarrhea - see that Protocol) Protocols used: ABDOMINAL PAIN - FEMALE-A-OH Gave appointment: All Patient Appointments Provider Department Dept Phone 06/01/2022 2:15 PM Sy Garnica [facility] - Family Medicine [place] [phone] She verbalized understanding of appointment date, time, and location. Advised that because she has not been seen in 3 years, office will schedule new patient appointmentat time of acute sickness visit to re-establish care. She verbalized understanding. RT SPECIALIST documented in this encounter Plan of Treatment Not on file documented as of this encounter Visit Diagnoses Not on filedocumented in this encounter Additional Health Concerns Assessment Noted Time PHQ-9 Depression Total Score: 0 02/01/20 19 10:00 AM CDT documented as of this encounter Care Teams Tile Conduit Layer Relationship Specialty Start Date End Date Provider, None [place] PCP - General 03/12/22 Leatha Gupta MD [place] Consulting Physician Obstetrics & Gynecology 06/01/22 documented as of this encounter
--- OUTSIDE RECORDS SUMMARY | 2024-07-02 04:44 | XMS_ITS | Encounter Summary ---
Author Organization [facility] Address [address] [place] [address] Phone Care Team Providers Care Mosaic Layer Name Role Phone Caroline Avina APRN, CNP Primary Care P rovider Encounter Details Date Type Department Care Team (Late st Contact Info) Description 05/07/2020 Telephone [facility] [address] [place], [place] [id number] Caroline Avina APRN, STEAM CONDITIONER OPERATOR [address] [place] [address] Social History Tobacco Use Types [...] encounter Miscellaneous Notes * Telephone Encounter - Brennan Mejias RN - 05/07/2020 1:06 PM CDT RN called patient and informed her of note. She voiced understanding. * Telephone Encounter - Caroline Avina APN, CNP - 05/07/2020 12:59 PM CDT Printed. Note at front desk coordinator. * Telephone Encounter - Brennan Mejias RN - 05/07/2020 12:56 PM CDT Pended * Telephone Encounter - Caroline Avina APN, CNP - 05/07/2020 12:37 PM CDT Ok to pend letter. * Telephone Encounter - Niyah Robin RN - 05/07/2020 12:11 PM CDT Patient calling for 05/05 covid results. Requesting a letter stating results were negative and she is ok to return to work. Please advise. documented in this encounter Plan of Treatment Not on file documented as of this encounter Visit Diagnoses Not on filedocumented in this encounter Additional Health Concerns Infection Onset Date Last Indicated Resolved Time COVID - 19 05/05/2020 05/05/2020 06/02/2020 12:1 8 AM HEALTH INSURANCE SPECIALIST Assessment Noted Time PHQ-9 Depression Total Score: 0 02/01/20 19 10:00 AM CDT documented as of this encounter Care Teams Mosaic Layer Relationship Specialty Start Date End Date Caroline Avina BENJA, STEAM CONDITIONER OPERATOR [address] [place] [address] PCP - General Advanced Practice Nurse 01/31/19 documented as of this encounter
--- OUTSIDE RECORDS SUMMARY | 2024-07-02 04:44 | XMS_ITS | Encounter Summary ---
Author Organization [facility] Address [address] [place] [address] Phone Care Team Providers Care Card Seller Name Role Phone Caroline Avina APRN, SELAM Primary Care P elizabeth Encounter Details Date Type Department Care Team (Late st Contact Info) Description 05/05/2020 1:40 PM CDT Lab [facility] [place] [address] [place] [address] Testing, [facility] Nurse [place] Discharge Disposition: Discharged to home or Selfcare [...] as of this encounter Progress Notes * Charity Rice RN - 05/05/2020 1:40 PM CDT Patient was directed to come to [facility] for Covid-19 swab. Patient was instructed to stay in the vehicle for testing. Donned appropriate PPE for collection of specimen. Nasopharyngeal specimen collected, patient tolerated well. Patient education provided on self-quarantine instructions. documented in this encounter Plan of Treatment Not on file documented as of this encounter Visit Diagnoses Not on filedocumented in this encounter Additional Health Concerns Infection Onset Date Last Indicated Resolved Time COVID - 19 05/05/2020 05/05/2020 06/02/2020 12:1 8 AM COAT FITTER Assessment Noted Time PHQ-9 Depression Total Score: 0 02/01/20 10:00 AM CDT documented as of this encounter Care Teams Card Seller Relationship Specialty Start Date End Date Caroline Avina, ACCESS ANALYST, SERVER SUPPORT TECHNICIAN [address] [place] [address] PCP - General Advanced Practice Nurse 01/31/19 documented as of this encounter
--- OUTSIDE RECORDS SUMMARY | 2024-07-02 04:44 | XMS_ITS | Clinical Summary ---
Author Organization [facility] Address [address] [place] [address] Phone Care Team Providers Care Radar Repairer Name Role Phone Provider, None Primary Care Provider Unavailabl e Leatha Gupta MD Unavailabl e Allergies No known active allergies Medications VIENVA 0.1-20 MG-MCG Tablet TK 1 T PO QD 4 01/04/2019 Active Multiple Vitamins-Mineral s (WOMENS MULTI PO) Take by mouth. Active Melatonin 10 MG Tablet Take by mouth. Active Psyllium (METAMUCIL PO) Take by mouth. Active Active Problems Problem Noted Date Diagnosed Date COVID-19 07/09/2021 Hypercholesteremia 01/31/2019 PCOS (polycystic ovarian syndrome) 02/06/2013 Overview (01/31/2019): Polycystic ovaries Resolved Problems Problem Noted Date Diagnosed Date Resolved Date MVP (mitral valve prolapse) 01/31/2019 05/05/2020 Immunizations Immunization Administration Dates Next Due Covid-19, Mrna, Lnp-s, Pf, 3 0 Mcg/0.3 Ml Dose ([employer]) 05/04/2021,10/31/2020,10/10/2020 Influenza, Trivalent, Adjuvanted, PF 05/04/2021 TDAP Vaccine 01/31/2019 Family History Medical History Relation Name Comments Hypertension Father Heart Attack Maternal Grandmother High Cholesterol Mother Hypertension Paternal Grandfather Cancer Paternal Grandmother Relation Name Status Comments Father Alive Maternal Grandfather Maternal Grandmother Mother Alive Paternal Grandfather Paternal Grandmother Social History Tobacco Use Types Packs/Day Years [...] on file Sexual Orientation Not on file Last Filed Vital Signs Vital Sign Reading Time Taken Comments Blood Pressure 118/62 06/01/2022 2:01 PM GARMENT PARTS CUTTER MACHINE Pulse 83 06/01/2022 2:01 PM GARMENT PARTS CUTTER MACHINE Temperature 36.7 ??C (98 ??F) 06/01/2022 2:01 PM GARMENT PARTS CUTTER MACHINE Respiratory Rate 16 06/01/2022 2:01 PM GARMENT PARTS CUTTER MACHINE Oxygen Saturation 98% 06/01/2022 2:01 PM GARMENT PARTS CUTTER MACHINE Inhaled Oxygen Concentration - - Weight 93 kg (205 lb) 06/01/2022 2:01 PM GARMENT PARTS CUTTER MACHINE Height 162.6 cm (5' 4 ) 06/01/2022 2:01 PM GARMENT PARTS CUTTER MACHINE Body Mass Index 35.19 06/01/2022 2:01 PM GARMENT PARTS CUTTER MACHINE Plan of Treatment Health Maintenance Due Date Last Done Comments Hepatitis C Virus (HCV) Screening 1970 Hepatitis B Immunization (1 of 3 - 19+ 3-dose series) 1989 HPV/Cotest 2000 Colonoscopy 2015 Colorectal Cancer Screening 2015 Cologuard 2020 Immunochemical Fecal Occult Blood 2020 Pneumococcal Immunization (5 0+ years) (1 of 1 - PCV) 2020 Zoster Immunization (1 of 2) 2020 Cervical Cancer Screening (CCS) 12/29/2020 Pap Smear 12/29/2020 12/29/2017 Influenza Immunization (#1) 03/12/202405/12, 05/04/2021 SARS-COV-2 Immunization ( season) 2024 05/04/2021, 10/31/2020, 10/10/2020 Mammogram 03/17/2024 03/17/2022, 05/22/2021, 01/05/2019 Td Immunization Every 10 Yea rs (Adults With 1 Tdap) 01/31/2029 01/31/2019 Respiratory Syncytial Virus (RSV) Immunization (Adult) (1 - 1-dose 75+ series) 2045 Meningococcal Immunization (ACWY) Aged Out No longer eligible b ased on patient's age to complete this topic Pneumococcal Immunization Combined Aged Out No longer eligible b ased on patient's age to complete this topic Rotavirus Immunization Aged Out No lo nger eligible based on patient's age to complete this topic Insurance [facility] Care Teams Radar Repairer Relationship Specialty Start Date End Date Provider, None [place] PCP - General 03/12/22 Leatha Gupta MD [place] Consulting Physician Obstetrics & Gynecology 06/01/22
--- OUTSIDE RECORDS SUMMARY | 2024-07-02 04:45 | XMS_ITS | Encounter Summary ---
Author Organization [facility] Healthcare Address [address] [place] [address] Care Team Providers Care Cell Assembly Pinner Name Role Phone Unavailable Primary Care Provider Unavailabl e Reason for Visit * Diagnostic Imaging (Routine) - Closed Specialty Diagnoses / Procedures Referred By Sherie t Referred To Contact Procedures Breast Imaging Procedure Outside Reference Carey Pemberton MD [address] [place] [address] Phone: tel: fax: Referral ID Status Reason Start Date Expiration Date Visits Re quested Visits Authorized [id number] Closed 01/27/2023 02/26/2024 1 1 Encounter Details Date Type Department Care Team (Latest Contact Info) Description 01/06/2023 12:05 AM CDT - 01/06/2023 11:59 PM CDT Hospital Encounter [facility] [address] [place] [address] Discharge Disposition: Discharge to home or self care Social History Tobacco Use Types Packs/Day Years Used Date Smoking Tobacco: Never Assessed Comments No Sex and Gender Information Value Date Recorded Sex Assigned at Not on file 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 Gender Identity Not on file Sexual Orientation Not on file documented as of this encounter Discharge Disposition Disposition Code Departure Means Destination Discharge to home or self care documented in this encounter Plan of Treatment Not on file documented as of this encounter Procedures Procedure Name Priority Date/Time Associated Diagnosis Comments BREAST IMAGING MG PROCEDURE OUTSIDE REFERENCE Routine 01/06/2023 12:05 AM CDT documented in this encounter Results * Breast Imaging Procedure Outside Reference (01/06/2023 12:05 AM CDT) Impressions [facility]_M[facility]MO[facility] - 01/27/2023 9:53 AM CDT These images are for Reference purposes only and have not been reviewed by [facility] Radiology. ??There will be no report generated by a [facility] Radiologist. Narrative [facility] - 01/27/2023 9:53 AM CDT EXAMINATION: ??Images For Reference Purposes Only us Carey Pemberton MD IMG MAMMO PROCEDURES Fi nal Result [facility] documented in this encounter Visit Diagnoses Not on filedocumented in this encounter
--- OUTSIDE RECORDS SUMMARY | 2024-07-02 04:45 | XMS_ITS | Encounter Summary ---
Author Organization [facility] Healthcare Address [address] [place] [address] Care Team Providers Care Correspondence School Instructor Name Role Phone Unavailable Primary Care Provider Unavailabl e Reason for Visit * Diagnostic Imaging (Routine) - Closed Specialty Diagnoses / Procedures Referred By Contac t Referred To Contact Procedures Breast Imaging [place] [address] [place] [address] Phone: tel: fax: Referral ID Status Reason Start Date Expiration Date Visits Re quested Visits Authorized [id number] Closed 01/27/2023 02/26/2024 1 1 Encounter Details Date Type Department Care Team (Latest Contact Info) Description 12/30/2022 - 12/30/2022 11:59 PM CDT Hospital Encounter [facility] [address] [place] [address] Discharge Disposition: Discharge to home or self care Social History Tobacco Use Types Packs/Day Years Used Date Smoking Tobacco: Never Assessed Comments No Sex and Gender Information Value Date Recorded Sex Assigned at Not on file 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 Gender Identity Not on file Sexual Orientation Not on file documented as of this encounter Discharge Disposition Disposition Code Departure Means Destination Discharge to home or self care documented in this encounter Plan of Treatment Not on file documented as of this encounter Procedures Procedure Name Priority Date/Time Associated Diagnosis Comments BREAST IMAGING US OUTSIDE REFERENCE Routine 12/30/2022 12:00 AM CDT documented in this encounter Results * Breast Imaging US Outside Reference (12/30/2022 12:00 AM CDT) Impressions [facility] - 01/27/2023 9:57 AM CDT These images are for Reference purposes only and have not been reviewed by [facility] Radiology. ??There will be no report generated by a [facility] Radiologist. Narrative RAD_MAMMO_[facility] - 01/27/2023 9:57 AM CDT EXAMINATION: ??Images For Reference Purposes Only us Carey Pemberton MD IMG MAMMO PROCEDURES Fi nal Result [facility] documented in this encounter Visit Diagnoses Not on filedocumented in this encounter
--- OUTSIDE RECORDS SUMMARY | 2024-07-02 04:45 | XMS_ITS | Clinical Summary ---
Author Organization [facility] Address [address] [place] [id number] Care Team Providers Care Technical Sme Name Role Phone Celina Sifuentes MD Primary Care Provider [phone] Carey Pemberton MD Unavailable [phone] Allergies No known active allergies Medications No known medications Active Problems Problem Noted Date Diagnosed Date MVP (mitral valve prolapse) 11/30/2021 COVID-19 07/09/2021 Hypercholesteremia 01/31/2019 Polycystic ovaries 02/06/2013 Overview (10/15/2016): Polycystic ovaries Immunizations Name Administration Dates Next Due Influenza, Trivalent, IM (MDV) 04/11/2011 Influenza, Trivalent, Split, Preservative Free, Intradermal 04/16/2015 Surgical History Surgery Date Site/Laterality Comments OTHER SURGICAL HISTORY hemorrhoid: office procedure Medical History Medical History Date Comments Hx Other Medical polycystic ovar shayne disease Hx Other Medical hemorrhoid Family History Medical History Relation Name Comments Rectal cancer Mother's Sister Cancer, rec reji; Other Other 1 No family histo ry of Coronary artery disease; Other Other 2 No family histo ry of Stroke; Other Other 3 No family histo ry of Diabetes mellitus; Breast cancer Paternal Grandmother Cancer , breast; Relation Name Status Comments Mother's Sister Other 1 Other 2 Other 3 Paternal Grandmother Social History Tobacco Use Types Packs/Day Years Used Date Smoking Tobacco: Never Assessed Comments No Sex and Gender Information Value Date Recorded Sex Assigned at Not on file 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 Gender Identity Not on file Sexual Orientation Not on file Obstetrics History Para Term AB IAB SAB Ectopic Multiple Livin g Live Births 3 3 3 Date Outcome GA Total Labor Labor/2nd/3rd Weight Sex Type Anes PTL Neelima A1 A5 Name Clin Term Term Term Last Filed Vital Signs Vital Sign Reading Time Taken Comments Blood Pressure 107/72 07/24/2022 10:15 PM DOSIER OPERATOR Pulse 72 07/24/2022 10:15 PM DOSIER OPERATOR Temperature 36.3 ??C (97.3 ??F) 07/24/2022 3:16 PM CS T Respiratory Rate 24 07/24/2022 10:1 5 PM DOSIER OPERATOR Oxygen Saturation 98% 07/24/2022 10: 15 PM DOSIER OPERATOR Inhaled Oxygen Concentration - - Weight 91.6 kg (201 lb 15.1 oz) 07/24/2022 3:16 PM DOSIER OPERATOR Height 162.6 cm (5' 4.02 ) 07/24/2022 3:16 PM CS T Body Mass Index 34.65 07/24/2022 3:16 PM DOSIER OPERATOR Plan of Treatment Health Maintenance Due Date Last Done Comments Cervical Cancer Screening 1970 Colon Cancer Screening-Colonoscopy 1970 Depression Screening 1970 Hepatitis C Screening 1970 Hepatitis B Screening 1988 Regular Well Visit/Exam 18-64 1988 Breast Cancer Screening-Mammogram 12/31/2018 12/31/2017, 12/21/2016, 12/03/2016, Additional history exists Zoster Vaccine (1 of 2) 2020 Covid-19 Vaccine ( season) 2024 05/04/2021, 10/31/2020, 10/10/2020 Influenza Vaccine (#1) 2024 2, 05/04/2021, 05/04/2021, Additional history exists DTaP/Tdap/Td Vaccine (2 - Td or Tdap) 01/31/2029 01/31/2019 Pneumococcal vaccine <65 Aged Out No longer eligible based on patient's age to complete this topic Procedures Procedure Name Priority Date/Time Associated Diagnosis Comments SCREENING MAMMOGRAM BILATERAL W JL Schedule Routine, Read Routine (OP Routine) 12/31/2017 12:24 PM CDT Encounter for screening mammogram for malignant neoplasm of breast from Last 3 Months or Most Recently Relevant to Health Maintenance Results * Screening Mammogram Bilateral W Jl (12/31/2017 12:24 PM CDT) Anatomical Region Laterality Modality Breast Bilateral Mammography 12/31/2017 12:5 0 PM CDT Impressions 12/31/2017 1:01 PM CDT BI-RADS 2, benign finding. ??No mammographic evidence of malignancy. Recommend annual mammogram. Recommendation includes continued annual screening mammography, regular monthly breast self examination, and yearly breast examination by a physician. Electronically signed by: Donald Stephenson M.D. Narrative 12/31/2017 1:01 PM CDT RESULT: HISTORY: ??47-year-old female for screening mammogram EXAMINATION: SCREENING MAMMOGRAM BILATERAL W JL ORDER DATE: 12/31/2017 12:30 PM COMPARISON: Compared with 12/03/2016, 01/28/2015, 10/09/2013 and 2012. TECHNIQUE: Full field digital mammography was performed in the CC and MLO projections. CAD and tomosynthesis were utilized. FINDINGS: Heterogeneously dense fibroglandular tissue in the both upper outer quadrant, without change. ??Heterogeneous dense breasts may obscure an underlying vein. Stable right upper outer breast oval-shaped asymmetric densities similar to prior study and were proven to be on cyst on prior ultrasound.. ??No dominant masses or suspicious microcalcification is architectural distortion to suggest malignancy. ??Few normal sized lymph node in both axilla. Leatha Gupta MD IMG MAMMO PROCEDURES Final Result from Last 3 Months or Most Recently Relevant to Health Maintenance [place] [address] [place] [id number] [facility]/PPO Address: [address] [place] [address] [facility]/PPO Address: [address] [address] [place] [address] [facility]/PPO Address: [place] [address] Care Teams Technical Sme Relationship Specialty Start Date End Date Celina Sifuentes MD [address] [place] [address] PCP - General Family Medicine 01/18/23 Carey Pemberton MD [address] [address] Surgeon Surgical Oncology 01/18/23
--- OUTSIDE RECORDS SUMMARY | 2024-07-02 04:45 | XMS_ITS | Encounter Summary ---
Author Organization [facility] Address [address] [place] [address] Phone Care Team Providers Care Valet Service Attendant Name Role Phone Celina Sifuentes MD Primary Care Provider [phone] Carey Pemberton MD Unavailable [phone] Reason for Referral * Diagnostic Imaging (Routine) - Closed Specialty Diagnoses / Procedures Referred By Sherie jacobo Referred To Contact Diagnoses Breast mass Procedures Breast Imaging DX Outside Consult Carey Pemberton MD [address] [address] Phone: tel: fax: [facility] Referral ID Status Reason Start Date Expiration Date Visits Re quested Visits Authorized [id number] Closed 01/18/2023 02/17/2024 1 1 Encounter Details Date Type Department Care Team (Late st Contact Info) Description 01/18/2023 Orders Only [facility] Surgery [address] [place] [address] 5th [place] [address] [place] [phone] Carey Pemberton MD [address] [id number] Ductal carcinoma in situ (DCIS) of right breast (Primary Dx) Social History Tobacco Use Types Packs/Day Years Used Date Smoking Tobacco: Never Assessed Comments No Sex and Gender Information Value Date Recorded Sex Assigned at Not on file 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 ??Spiculated mass in the RIGHT breast 11:00 is compatible with biopsy-proven malignancy. 2. ??Pleomorphic calcifications in the RIGHT breast are compatible with biopsy-proven ductal carcinoma in situ. 3. ??No suspicious abnormality in the LEFT breast. OVERALL FINAL ASSESSMENT: BI-RADS Category 6: Known Biopsy-Proven Malignancy. RECOMMENDATION: Strongly recommend MRI given the extent of pleomorphic calcifications and heterogeneous density of the breasts to further evaluate the right breast and contralateral left breast. ??Additionally, clinical and oncologic management of known malignancy. NOTE: The findings, conclusions and recommendations within this report do not replace the initial findings, conclusions and recommendations made at the facility where the study was performed based upon the imaging and clinical condition at that time. ??Review of the prior report and correlation with the clinical history are necessary. The provided images may or may not represent the [place] source data set and thus may contain changes which may lower the sensitivity of the second opinion interpretation. Dictated by: Gris Ramos M.D. The radiology attending physician has personally reviewed this study, and had reviewed and/or edited this written report and agrees with it. Electronically signed by: MD Michelle VASQUEZ 01/28/2023 11:23 AM CDT EXAMINATION: REVIEW AND INTERPRETATION OF OUTSIDE IMAGING FACILITY PERFORMING OUTSIDE IMAGING: [facility] EXAM(S) REVIEWED: 1. ??BILATERAL DIAGNOSTIC MAMMOGRAM WITH TOMOSYNTHESIS, 12/30/2022 2. ??RIGHT UNILATERAL DIAGNOSTIC MAMMOGRAM WITH TOMOSYNTHESIS, 01/06/2023. DATE OF INTERPRETATION: 01/28/2023 HISTORY: 52-year-old woman who originally presented to outside hospital with palpable left breast mass. ??Diagnostic workup revealed a right breast mass 11:00 8 cm from the nipple and right breast calcifications. ??Pathology showed infiltrating ductal carcinoma and DCIS. COMPARISON: Diagnostic mammogram and ultrasound 03/17/2022. Screening mammogram 12/24/2021. BREAST PARENCHYMAL COMPOSITION: The breasts are heterogenously dense, which may obscure small masses. FINDINGS: Bilateral diagnostic mammogram 12/30/2022: There has been interval development of pleomorphic calcifications in the RIGHT breast spanning the entire transverse dimension measuring 11 x 12 x 6 cm (AP x TV x CC). ??Additionally there is a focal asymmetry in the upper outer RIGHT breast, however no magnification views or right diagnostic mammogram was obtained. In the upper outer quadrant of the LEFT breast 8-10 cm from the nipple there is a partially obscured density mass which is marked by a triangular marker. Outside targeted ultrasound reportedly shows in the RIGHT breast, 11:00, 8 cm from the nipple a 1.0 x 0.7 x 0.9 cm irregular spiculated hypoechoic mass with posterior shadowing which likely corresponds to focal asymmetry noted on mammogram. ??In the LEFT breast, 2:00, 8 cm from the nipple there is a reported cluster of cysts measuring 2.7 x 1.8 x 2.9 cm without internal vascularity. The RIGHT breast mass and calcifications were subsequently biopsied on 01/06/2023 under ultrasound and stereotactic guidance. Postbiopsy marker films show a twirl clip in the upper outer RIGHT breast associated with the mass and a cork shaped clip located centrally on both views associated with the calcifications. Pathology showed infiltrating ductal carcinoma and ductal carcinoma in situ. ?? Procedure Note Nirali Milligan MD - 01/28/2023 EXAMINATION: REVIEW AND INTERPRETATION OF OUTSIDE IMAGING FACILITY PERFORMING OUTSIDE IMAGING: [facility] EXAM(S) REVIEWED: 1. BILATERAL DIAGNOSTIC MAMMOGRAM WITH TOMOSYNTHESIS, 12/30/2022 2. RIGHT UNILATERAL DIAGNOSTIC MAMMOGRAM WITH TOMOSYNTHESIS, 01/06/2023. DATE OF INTERPRETATION: 01/28/2023 HISTORY: 52-year-old woman who originally presented to outside hospital with palpable left breast mass. Diagnostic workup revealed a right breast mass 11:00 8 cm from the nipple and right breast calcifications. Pathology showed infiltrating ductal carcinoma and DCIS. COMPARISON: Diagnostic mammogram and ultrasound 03/17/2022. Screening mammogram 12/24/2021. BREAST PARENCHYMAL COMPOSITION: The breasts are heterogenously dense, which may obscure small masses. FINDINGS: Bilateral diagnostic mammogram 12/30/2022: There has been interval development of pleomorphic calcifications in the RIGHT breast spanning the entire transverse dimension measuring 11 x 12 x 6 cm (AP x TV x CC). Additionally there is a focal asymmetry in the upper outer RIGHT breast, however no magnification views or right diagnostic mammogram was obtained. In the upper outer quadrant of the LEFT breast 8-10 cm from the nipple there is a partially obscured density mass which is marked by a triangular marker. Outside targeted ultrasound reportedly shows in the RIGHT breast, 11:00, 8 cm from the nipple a 1.0 x 0.7 x 0.9 cm irregular spiculated hypoechoic mass with posterior shadowing which likely corresponds to focal asymmetry noted on mammogram. In the LEFT breast, 2:00, 8 cm from the nipple there is a reported cluster of cysts measuring 2.7 x 1.8 x 2.9 cm without internal vascularity. The RIGHT breast mass and calcifications were subsequently biopsied on 01/06/2023 under ultrasound and stereotactic guidance. Postbiopsy marker films show a twirl clip in the upper outer RIGHT breast associated with the mass and a cork shaped clip located centrally on both views associated with the calcifications. Pathology showed infiltrating ductal carcinoma and ductal carcinoma in situ. IMPRESSION: 1. Spiculated mass in the RIGHT breast 11:00 is compatible with biopsy-proven malignancy. 2. Pleomorphic calcifications in the RIGHT breast are compatible with biopsy-proven ductal carcinoma in situ. 3. No suspicious abnormality in the LEFT breast. OVERALL FINAL ASSESSMENT: BI-RADS Category 6: Known Biopsy-Proven Malignancy. RECOMMENDATION: Strongly recommend MRI given the extent of pleomorphic calcifications and heterogeneous density of the breasts to further evaluate the right breast and contralateral left breast. Additionally, clinical and oncologic management of known malignancy. NOTE: The findings, conclusions and recommendations within this report do not replace the initial findings, conclusions and recommendations made at the facility where the study was performed based upon the imaging and clinical condition at that time. Review of the prior report and correlation with the clinical history are necessary. The provided images may or may not represent the [place] source data set and thus may contain changes which may lower the sensitivity of the second opinion interpretation. Dictated by: Gris Ramos M.D. The radiology attending physician has personally reviewed this study, and had reviewed and/or edited this written report and agrees with it. Electronically signed by: NIRALI MILLIGAN MD Carey Pemberton MD IMG MAMMO PROCEDURES Fi nal Result documented in this encounter Visit Diagnoses Diagnosis Ductal carcinoma in situ (DCIS) of right breast- Primary documented in this encounter Care Teams Valet Service Attendant Relationship Specialty Start Date End Date Celina Sifuentes MD [address] [place] [address] PCP - General Family Medicine 01/18/23 Carey Pemberton MD [address] [address] Surgeon Surgical Oncology 01/18/23 documented as of this encounter
--- OUTSIDE RECORDS SUMMARY | 2024-07-02 04:45 | XMS_ITS | Encounter Summary ---
Author Organization [facility] Address [address] [place] [address] Phone Care Team Providers Care Oval Or Circular Glass Cutter Name Role Phone Celina Sifuentes MD Primary Care Provider [phone] Carey Pemberton MD Unavailable [phone] Encounter Details Date Type Department Care Team (Late st Contact Info) Description 01/28/2023 Telephone [facility] Surgery [address] [facility] 5th [place] [address] [place] [address] Nena Harden CMA Social History Tobacco Use Types Packs/Day Years Used Date Smoking Tobacco: Never Assessed Comments No Sex and Gender Information Value Date Recorded Sex Assigned at Not on file 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 documented in this encounter Plan of Treatment Not on file documented as of this encounter Visit Diagnoses Not on filedocumented in this encounter Care Teams Oval Or Circular Glass Cutter Relationship Specialty Start Date End Date Celina Sifuentes MD [address] [place] [address] PCP - General Family Medicine 01/18/23 Carey Pemberton MD [address] [address] Surgeon Surgical Oncology 01/18/23 documented as of this encounter
--- OUTSIDE RECORDS SUMMARY | 2024-07-02 04:45 | XMS_ITS | Encounter Summary ---
Author Organization [facility] Address [address] [place] [address] Phone Care Team Providers Care Bean Dumper Name Role Phone Celina Sifuentes MD Primary Care Provider [phone] Carey Pemberton MD Unavailable [phone] Encounter Details Date Type Department Care Team (Late st Contact Info) Description 01/19/2023 Telephone [facility] Surgery [address] [facility] 5th [place] [address] [place] [address] Karly Grace Social History Tobacco Use Types Packs/Day Years Used Date Smoking Tobacco: Never Assessed Comments No Sex and Gender Information Value Date Recorded Sex Assigned at Not on file Legal Sex Female 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 KIRK she's okay to move her up to 02/02 at 3:30pm before she goes out of town so they can have a plan as well it's unlikely to need further imaging with us since she had them from the outside documented in this encounter Plan of Treatment Not on file documented as of this encounter Visit Diagnoses Not on filedocumented in this encounter Care Teams Bean Dumper Relationship Specialty Start Date End Date Celina Sifuentes MD [address] [place] [address] PCP - General Family Medicine 01/18/23 Carey Pemberton MD [address] [address] Surgeon Surgical Oncology 01/18/23 documented as of this encounter
--- OUTSIDE RECORDS SUMMARY | 2024-07-02 04:45 | XMS_ITS | Encounter Summary ---
Author Organization [facility] Address [address] [place] [address] Phone Care Team Providers Care Customer Advisor Specialist Name Role Phone Celina Sifuentes MD Primary Care Provider [phone] Carey Pemberton MD Unavailable [phone] Encounter Details Date Type Department Care Team (Late st Contact Info) Description 01/19/2023 Telephone [facility] Surgery [address] [facility] 5th [place] [address] [place] [address] Karly Grace Social History Tobacco Use Types Packs/Day Years Used Date Smoking Tobacco: Never Assessed Comments No Sex and Gender Information Value Date Recorded Sex Assigned at Not on file 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 documented in this encounter Plan of Treatment Not on file documented as of this encounter Visit Diagnoses Not on filedocumented in this encounter Care Teams Customer Advisor Specialist Relationship Specialty Start Date End Date Celina Sifuentes MD [address] [place] [address] PCP - General Family Medicine 01/18/23 Carey Pemberton MD [facility] [address] [address] Surgeon Surgical Oncology 01/18/23 documented as of this encounter
--- OUTSIDE RECORDS SUMMARY | 2024-07-02 04:45 | XMS_ITS | Encounter Summary ---
Author Organization [facility] Address [address] [place] [address] Care Team Providers Care Gerontology Aide Name Role Phone Unavailable Primary Care Provider Unavailabl e Reason for Visit * Diagnostic Imaging (Routine) - Closed Specialty Diagnoses / Procedures Referred By Sherie t Referred To Contact Procedures Breast Imaging Diagnostic Outside Reference Carey Pemberton MD [address] [place] [address] Phone: tel: fax: Referral ID Status Reason Start Date Expiration Date Visits Re quested Visits Authorized [id number] Closed 01/27/2023 02/26/2024 1 1 Encounter Details Date Type Department Care Team (Latest Contact Info) Description 12/30/2022 12:05 AM CDT - 12/30/2022 11:59 PM CDT Hospital Encounter [facility] [address] [place] [address] Discharge Disposition: Discharge to home or self care Social History Tobacco Use Types Packs/Day Years Used Date Smoking Tobacco: Never Assessed Comments No Sex and Gender Information Value Date Recorded Sex Assigned at Not on file 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 Gender Identity Not on file Sexual Orientation Not on file documented as of this encounter Discharge Disposition Disposition Code Departure Means Destination Discharge to home or self care documented in this encounter Plan of Treatment Not on file documented as of this encounter Procedures Procedure Name Priority Date/Time Associated Diagnosis Comments BREAST IMAGING MG DIAGNOSTIC OUTSIDE REFERENCE Routine 12/30/2022 12:05 AM CDT documented in this encounter Results * Breast Imaging Diagnostic Outside Reference (12/30/2022 12:05 AM CDT) Impressions [facility] - 01/27/2023 9:57 AM CDT These images are for Reference purposes only and have not been reviewed by [facility] Radiology. ??There will be no report generated by a [facility] Radiologist. Narrative [facility] - 01/27/2023 9:57 AM CDT EXAMINATION: ??Images For Reference Purposes Only us Carey Pemberton MD IMG MAMMO PROCEDURES Fi nal Result [facility] documented in this encounter Visit Diagnoses Not on filedocumented in this encounter
--- OUTSIDE RECORDS SUMMARY | 2024-07-02 04:45 | XMS_ITS | Encounter Summary ---
Author Organization [facility] Address [address] [place] [address] Care Team Providers Care Expander Machine Operator Name Role Phone Unavailable Primary Care Provider Unavailabl e Reason for Visit * Diagnostic Imaging (Routine) - Closed Specialty Diagnoses / Procedures Referred By Sherie t Referred To Contact Procedures Breast Imaging US Outside Reference Carey Pemberton MD [address] [place] [address] Phone: tel: fax: Referral ID Status Reason Start Date Expiration Date Visits Re quested Visits Authorized [id number] Closed 01/27/2023 02/26/2024 1 1 Encounter Details Date Type Department Care Team (Latest Contact Info) Description 01/06/2023 12:10 AM CDT - 01/06/2023 11:59 PM CDT Hospital Encounter [facility] [address] [place] [id number] Discharge Disposition: Discharge to home or self care Social History Tobacco Use Types Packs/Day Years Used Date Smoking Tobacco: Never Assessed Comments No Sex and Gender Information Value Date Recorded Sex Assigned at Not on file 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 Sex Female 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 Gender Identity Not on file Sexual Orientation Not on file documented as of this encounter Discharge Disposition Disposition Code Departure Means Destination Discharge to home or self care documented in this encounter Plan of Treatment Not on file documented as of this encounter Procedures Procedure Name Priority Date/Time Associated Diagnosis Comments BREAST IMAGING US OUTSIDE REFERENCE Routine 01/06/2023 12:10 AM CDT documented in this encounter Results * Breast Imaging US Outside Reference (01/06/2023 12:10 AM CDT) Impressions [facility] - 01/27/2023 9:55 AM CDT These images are for Reference purposes only and have not been reviewed by [facility] Radiology. ??There will be no report generated by a [facility] Radiologist. Narrative [facility] - 01/27/2023 9:55 AM CDT EXAMINATION: ??Images For Reference Purposes Only us Carey Pemberton MD IMG MAMMO PROCEDURES Fi nal Result [facility] documented in this encounter Visit Diagnoses Not on filedocumented in this encounter
--- OUTSIDE RECORDS SUMMARY | 2024-07-02 04:45 | XMS_ITS | Encounter Summary ---
Author Organization [facility] Address [address] [place] [address] Phone Care Team Providers Care Freight Delivery Driver Name Role Phone Celina Sifuentes MD Primary Care Provider [phone] Carey Pemberton MD Unavailable [phone] Encounter Details Date Type Department Care Team (Late st Contact Info) Description 01/18/2023 Telephone [facility] Surgery [address] [facility] 5th [place] [address] [place] [address] Karly Grace Social History Tobacco Use Types Packs/Day Years Used Date Smoking Tobacco: Never Assessed Comments No Sex and Gender Information Value Date Recorded Sex Assigned at Not on file 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 Pemberton in office. Advise patient she will receive a new patient packet by mail and she advise that she will be out of - Feb 15. documented in this encounter Plan of Treatment Not on file documented as of this encounter Visit Diagnoses Not on filedocumented in this encounter Care Teams Freight Delivery Driver Relationship Specialty Start Date End Date Celina Sfiuentes MD [address] [place] [address] PCP - General Family Medicine 01/18/23 Carey Pemberton MD [address] [address] Surgeon Surgical Oncology 01/18/23 documented as of this encounter
--- OUTSIDE RECORDS SUMMARY | 2024-07-02 04:45 | XMS_ITS | Encounter Summary ---
Author Organization [facility] Address [address] [place] [address] Care Team Providers Care Oracle Fusion Middleware Architect Name Role Phone Celina Sifuentes MD Primary Care Provider [phone] Carey Pemberton MD Unavailable [phone] Reason for Referral * Diagnostic Imaging (Routine) - Closed Specialty Diagnoses / Procedures Referred By Sherie jacobo Referred To Contact Diagnoses Breast mass Procedures Breast Imaging DX Outside Consult Carey Pemberton MD [address] [address] Phone: tel: fax: [facility] Referral ID Status Reason Start Date Expiration Date Visits Re quested Visits Authorized [id number] Closed 01/18/2023 02/17/2024 1 1 Reason for Visit * Diagnostic Imaging (Routine) - Closed Specialty Diagnoses / Procedures Referred By Sherie jacobo Referred To Contact Diagnoses Breast mass Procedures Breast Imaging DX Outside Consult Carey Pemberton MD [address] [address] Phone: tel: fax: [facility] Referral ID Status Reason Start Date Expiration Date Visits Re quested Visits Authorized [id number] Closed 01/18/2023 02/17/2024 1 1 Encounter Details Date Type Department Care Team (Latest Contact Info) Description 01/27/2023 5:06 PM CDT - 01/27/2023 11:59 PM CDT Hospital Encounter 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 Gender Identity Not on file Sexual Orientation Not on file documented as of this encounter Discharge Disposition Disposition Code Departure Means Destination Discharge to home or self care documented in this encounter Plan of Treatment Not on file documented as of this encounter Procedures Procedure Name Priority Date/Time Associated Diagnosis Comments BREAST IMAGING MG DIAGNOSTIC OUTSIDE CONSULT Routine 01/27/2023 5:06 PM CDT documented in this encounter Results * Breast Imaging DX [...] images may or may not represent the [place] source data set and thus may contain changes which may lower the sensitivity of the second opinion interpretation. Dictated by: Gris Ramos M.D. The radiology attending physician has personally reviewed this study, and had reviewed and/or edited this written report and agrees with it. Electronically signed by: NIRALI MILLIGAN MD Narrative 01/28/2023 11:23 AM CDT EXAMINATION: REVIEW AND INTERPRETATION OF OUTSIDE IMAGING FACILITY PERFORMING OUTSIDE IMAGING: [facility] EXAM(S) REVIEWED: 1. ??BILATERAL DIAGNOSTIC MAMMOGRAM [...] OF OUTSIDE IMAGING FACILITY PERFORMING OUTSIDE IMAGING: [facility] EXAM(S) REVIEWED: 1. BILATERAL DIAGNOSTIC MAMMOGRAM [...] images may or may not represent the [place] source data set and thus may contain [...] Result documented in this encounter Visit Diagnoses Not on filedocumented in this encounter Care Teams Oracle Fusion Middleware Architect Relationship Specialty Start Date End Date Celina Sifuentes MD [address] [place] [address] PCP - General Family Medicine 01/18/23 Carey Pemberton MD [address] [address] Surgeon Surgical Oncology 01/18/23 documented as of this encounter
--- OUTSIDE RECORDS SUMMARY | 2024-07-02 04:45 | XMS_ITS | Referral Summary ---
Author Organization [facility] Address [address] [place] [address] Care Team Providers Care Construction Project Coordinator Name Role Phone Celina Sifuentes MD Primary Care Provider [phone] Carey Pemberton MD Unavailable Allergies No known active allergies Medications No known medications Active Problems Problem Noted Date Diagnosed Date MVP (mitral valve prolapse) 11/30/2021 COVID-19 07/09/2021 Hypercholesteremia 01/31/2019 Polycystic ovaries 02/06/2013 Overview (10/15/2016): Polycystic ovaries Immunizations Name Administration Dates Next Due Influenza, Trivalent, IM (MDV) 04/11/2011 Influenza, Trivalent, Split, Preservative Free, Intradermal 04/16/2015 Social History Tobacco Use Types Packs/Day Years Used Date Smoking Tobacco: Never Assessed Comments No Sex and Gender Information Value Date Recorded Sex Assigned at Not on file Legal Sex Female 12:19 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 COUNSELOR Gender Identity Not on file Sexual Orientation Not on file Last Filed Vital Signs Vital Sign Reading Time Taken Comments Blood Pressure 107/72 07/24/2022 10:15 PM BEAUTY COUNSELOR Pulse 72 07/24/2022 10:15 PM BEAUTY COUNSELOR Temperature 36.3 ??C (97.3 ??F) 07/24/2022 3:16 PM CS T Respiratory Rate 24 07/24/2022 10:1 5 PM BEAUTY COUNSELOR Oxygen Saturation 98% 07/24/2022 10: 15 PM BEAUTY COUNSELOR Inhaled Oxygen Concentration - - Weight 91.6 kg (201 lb 15.1 oz) 07/24/2022 3:16 PM BEAUTY COUNSELOR Height 162.6 cm (5' 4.02 ) 07/24/2022 3:16 PM CS T Body Mass Index 34.65 07/24/2022 3:16 PM BEAUTY COUNSELOR Plan of Treatment Not on file Procedures Procedure Name Priority Date/Time Associated Diagnosis [...] Most Recently Relevant to Health Maintenance Insurance [facility] Care Teams Construction Project Coordinator Relationship Specialty Start Date End Date Celina Sifuentes MD [address] [place] [address] PCP - General Family Medicine 01/18/23 Carey Pemberton MD [address] [address] Surgeon Surgical Oncology 01/18/23
--- OUTSIDE RECORDS SUMMARY | 2024-07-02 04:45 | XMS_ITS | Encounter Summary ---
Author Organization [facility] Healthcare Address [address] [place] [address] Care Team Providers Care Mercerizer Name Role Phone Unavailable Primary Care Provider Unavailabl e Reason for Visit * Diagnostic Imaging (Routine) - Closed Specialty Diagnoses / Procedures Referred By Contac t Referred To Contact Diagnoses Ductal carcinoma in situ (DCIS) of right breast Procedures Breast Imaging Diagnostic Outside Reference Carey Pemberton MD [address] [place] [address] Phone: tel: fax: Referral ID Status Reason Start Date Expiration Date Visits Re quested Visits Authorized [id number] Closed 01/27/2023 02/26/2024 1 1 Encounter Details Date Type Department Care Team (Latest Contact Info) Description 01/06/2023 - 01/06/2023 11:59 PM CDT Hospital Encounter [facility] [address] [place] [address] Discharge Disposition: Discharge to home or self care Social History Tobacco Use Types Packs/Day Years Used Date Smoking Tobacco: Never Assessed Comments No Sex and Gender Information Value Date Recorded Sex Assigned at Not on file 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 Sex Female 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 Gender Identity Not on file Sexual Orientation Not on file documented as of this encounter Discharge Disposition Disposition Code Departure Means Destination Discharge to home or self care documented in this encounter Plan of Treatment Not on file documented as of this encounter Procedures Procedure Name Priority Date/Time Associated Diagnosis Comments BREAST IMAGING MG DIAGNOSTIC OUTSIDE REFERENCE Schedule Routine, Read Routine (OP Routine) 01/06/2023 12:00 AM CDT Ductal carcinoma in situ (DCIS) of right breast documented in this encounter Results * Breast Imaging Diagnostic Outside Reference (01/06/2023 12:00 AM CDT) Impressions RAD_MAMMO_[facility] - 01/27/2023 9:53 AM CDT These images are for Reference purposes only and have not been reviewed by [facility]. ??There will be no report generated by a [facility] Radiologist. Narrative RAD_MAMMO_[facility] - 01/27/2023 9:53 AM CDT EXAMINATION: ??Images For Reference Purposes Only us Carey Pemberton MD IMG MAMMO PROCEDURES Fi nal Result RAD_MAMMO_[facility] documented in this encounter Visit Diagnoses Not on filedocumented in this encounter
--- OUTSIDE RECORDS SUMMARY | 2024-07-02 04:46 | XMS_ITS | Encounter Summary ---
Author Organization [facility] Healthcare Address [address] [place] [address] Care Team Providers Care Mental Health Clinician Name Role Phone Priya Velasquez MD Primary Care Provider [phone] Encounter Details Date Type Department Care Team (Late st Contact Info) Description 12/31/2017 12:00 PM CDT - 12/31/2017 11:59 PM CDT Hospital Encounter [facility] Radiology [address] [place] [address] Leatha Gupta MD [address] [place] [address] Encounter for screening mammogram for malignant neoplasm of breast Discharge Disposition: Discharge to home or self care Social History Tobacco Use Types Packs/Day Years Used Date Smoking Tobacco: Never Assessed Comments No Sex and Gender Information Value Date Recorded Sex Assigned at Not on file 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 us Leatha Gupta MD IMG MAMMO PROCEDURES Final Result documented in this encounter Visit Diagnoses Diagnosis Encounter for screening mammogram for malignant neoplasm of breast documented in this encounter Care Teams Mental Health Clinician Relationship Specialty [place] [address] [address] PCP - General 12/15/16 04/25/18 documented as of this encounter
--- OUTSIDE RECORDS SUMMARY | 2024-07-02 04:46 | XMS_ITS | Encounter Summary ---
Author Organization [facility] Healthcare Address [address] [place] [address] Care Team Providers Care Embossing Machine Tender Name Role Phone Unavailable Primary Care Provider Unavailabl e Reason for Visit * Diagnostic Imaging (Routine) - Closed Specialty Diagnoses / Procedures Referred By Sherie jacobo Referred To Contact Diagnoses Lump of right breast Procedures Diagnostic Mammogram Right W Jl Diagnostic Mammogram 2D Right Leatha Gupta MD Phone: tel: fax: [address] [address] Referral ID Status Reason Start Date Expiration Date Visits Re quested Visits Authorized [id number] Closed 04/20/2018 10/30/2019 1 1 Encounter Details Date Type Department Care Team (Late st Contact Info) Description 05/04/2018 9:33 AM CDT Hospital Encounter [facility] Imaging and Radiology [address] [place] [id number] Leatha Gupta MD [address] [place] [address] 1, Michael Harmon Md Lump of right breast Discharge Disposition: Discharge to home or self care Social History Tobacco Use Types Packs/Day Years Used Date Smoking Tobacco: Never Assessed Comments No Sex and Gender Information Value Date Recorded Sex Assigned at Not on file Legal Sex Female 12:19 AM DRY KILN BURNER Gender Identity Not on file Sexual Orientation Not on file documented as of this encounter Discharge Disposition Disposition Code Departure Means Destination Discharge to home or self care documented in this encounter Plan of Treatment Not on file documented as of this encounter Procedures Procedure Name Priority Date/Time Associated Diagnosis Comments DIAGNOSTIC MAMMOGRAM RIGHT W JL Schedule Routine, Read Routine (OP Routine) 05/04/2018 11:06 AM CDT Lump of right breast documented in this encounter Results * Diagnostic Mammogram Right W Jl (05/04/2018 11:06 AM CDT) Anatomical Region Laterality Modality Breast Right Mammography 05/04/2018 6:07 PM CDT Impressions 05/04/2018 6:14 PM CDT 1) ??The palpable entities reported by the patient are shown to represent simple cysts needing no further imaging workup. ??The findings were discussed with the patient. 2. The patient can return to bilateral screening mammography in December 2018 which would be the anniversary of her last bilateral screening study. ??This was discussed with the patient. OVERALL FINAL ASSESSMENT: Category 2: Benign findings. . Electronically signed by: Dwayne Cox M.D. Narrative 05/04/2018 6:14 PM CDT EXAMINATION: 1. RIGHT UNILATERAL FULL FIELD DIGITAL DIAGNOSTIC MAMMOGRAM WITH CAD AND DIGITAL BREAST TOMOSYNTHESIS. 2. RIGHT UNILATERAL BREAST SONOGRAM. HISTORY: The patient reports a nodule in the right breast which she believes getting larger. COMPARISON: Comparison is made to 12/31/2017, 12/21/2016, 12/03/2016, 02/05/2015, 10/09/2013 studies. ??The patient had a 12/21/2016 right breast ultrasound showing cysts to be present. MAMMOGRAPHIC FINDINGS: Moderate amount of fibroglandular tissue in the right breast is similar to the previous studies. ??Questionable area of distortion in the upper central portion of the right breast resolves with additional imaging. There is a 3.2 x 2.1 mass in the 9 o'clock position of the right breast centrally which is obscured on conventional imaging was seen to better advantage with tomosynthesis. ??No associated microcalcifications. ??Other smaller obscured nodules embedded in the dense breast tissue laterally. SONOGRAPHIC FINDINGS: The palpable nodules felt by the patient correspond to cysts which also correspond to the positions of the obscured mammographic masses. The largest of these is at the 9 o'clock position 2-3 cm from the nipple and it measures approximately 3.2 x 2.3 x 1.4 cm. ??A palpable entity more posterior in the right breast at the 9:30 position 11 cm from nipple has also shown to represent a cyst measuring approximately 13 x 12 mm. There are no solid masses or suspicious findings. us Leatha Gupta MD IMG MAMMO PROCEDURES Final Result documented in this encounter Visit Diagnoses Diagnosis Lump of right breast documented in this encounter
--- OUTSIDE RECORDS SUMMARY | 2024-07-02 04:46 | XMS_ITS | Encounter Summary ---
Author Organization [facility] Healthcare Address [address] [place] [address] Care Team Providers Care Mobile Application Developer Name Role Phone Priya Mora MD Primary Care Provider + [phone] Encounter Details Date Type Department Care Team (Late st Contact Info) Description 02/05/2015 12:44 PM CDT - 02/05/2015 11:59 PM CDT Hospital Encounter [facility] Shell Mohr MD [address] [place] [address] Other screening mammogram Social History Tobacco Use Types Packs/Day Years Used Date Smoking Tobacco: Never Assessed Comments Unknown Sex and Gender Information Value Date Recorded Sex Assigned at Not on file Legal Sex Female 12:19 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 Gender Identity Not on file Sexual Orientation Not on file documented as of this encounter Plan of Treatment Not on file documented as of this encounter Procedures Procedure Name Priority Date/Time Associated Diagnosis Comments DIAGNOSTIC MAMMOGRAM BILATERAL W JL Routine 02/05/2015 12:58 PM CDT documented in this encounter Results * DIAGNOSTIC MAMMOGRAM BILATERAL W JL (02/05/2015 12:58 PM CDT) Anatomical Region Laterality Modality Breast Bilateral Mammography 02/05/2015 12:5 8 PM CDT Narrative 02/06/2015 10:29 AM CDT Acc#: ??[id number] RAQUEL [id number] - Screening Mamm W Jl Bi DATE OF EXAM: ??Feb 05 2015 12:58PM DIAGNOSIS: ??SCREEN MAMMOGRAPHY NEC CLINICAL HISTORY: ??SCREENING RESULT: ?\ BREAST SCREENING DIGITAL WITH CAD AND TOMOSYNTHESIS BILATERAL Compared to 10/09/13 and 08/29/12 screening mammographic exams. Breasts are heterogeneously dense. There are no suspicious calcifications, nodules or distortion. ?? Axillary lymph nodes are benign in appearance. ? IMPRESSION: ?\ CATEGORY 2 BENIGN. IMPRESSION OF OVERALL ASSESSMENT: BENIGN. TECHNOLOGIST: ?? SUN SEVILLATECHNOLOGIST MEDICAL IMAGING MARINE REPORTER: ??JL6 TRANSCRIBE DATE/TIME: ??Feb 06 2015 ??8:42A RADIOLOGIST: ??STEPHANIE JAQUEZ M.D. ??READ ON: ??Feb 05 2015 ??7:44P ORDERING DR: SHELL CHAUHAN M.D. ? THIS DOCUMENT HAS BEEN ELECTRONICALLY SIGNED BY: ??STEPHANIE JAQUEZ M.D. ??ON: ??Feb 06 2015 10:29A ? MARINE REPORTER: ??JL6 TRANSCRIBE DATE/TIME: ??Feb 06 2015 ??8:42A RADIOLOGIST: ??STEPHANIE JAQUEZ M.D. ??READ ON: ??Feb 05 2015 ??7:44P ORDERING DR: SHELL CHAUHAN M.D. ? THIS DOCUMENT HAS BEEN ELECTRONICALLY SIGNED BY: ??STEPHANIE JAQUEZ M.D. ??ON: ??Feb 06 2015 10:29A Attending: ??TIEN, ??SHELL Requesting: ??TIEN, ??SHELL Requesting Fax: ??[phone] Attending Fax: ??[phone] Attending ID: ??[id number] Requesting ID: ??[id number] Report To 1 ID: ?? Report To 1 Name: ??, ?? Report To 1 FAX: ??-- Report To 2 ID: ?? Report To 2 Name: ??, ?? Report To 2 FAX: ??-- NextGen Order #: ?? Procedure Note Provider, MD Luisa - 11/04/2016 Acc#: [id number] RAQUEL [id number] - Screening Mamm W Jl Bi DATE OF EXAM: Feb 05 2015 12:58PM DIAGNOSIS: SCREEN MAMMOGRAPHY NEC CLINICAL HISTORY: SCREENING RESULT: \ BREAST SCREENING DIGITAL WITH CAD AND TOMOSYNTHESIS BILATERAL Compared to 10/09/13 and 08/29/12 screening mammographic exams. Breasts are heterogeneously dense. There are no suspicious calcifications, nodules or distortion. Axillary lymph nodes are benign in appearance. IMPRESSION: \ CATEGORY 2 BENIGN. IMPRESSION OF OVERALL ASSESSMENT: BENIGN. TECHNOLOGIST: SUN SEVILLATECHNOLOGIST MEDICAL IMAGING MARINE REPORTER: JLBrittney TRANSCRIBE DATE/TIME: Feb 06 2015 8:42A RADIOLOGIST: STEPHANIE JAQUEZ M.D. READ ON: Feb 05 2015 7:44P ORDERING DR: SHELL CHAUHAN M.D. THIS DOCUMENT HAS BEEN ELECTRONICALLY SIGNED BY: STEPHANIE JAQUEZ M.D. ON: Feb 06 2015 10:29A MARINE REPORTER: ERICA TRANSCRIBE DATE/TIME: Feb 06 2015 8:42A RADIOLOGIST: STEPHANIE JAQUEZ M.D. READ ON: Feb 05 2015 7:44P ORDERING DR: SHELL CHAUHAN M.D. THIS DOCUMENT HAS BEEN ELECTRONICALLY SIGNED BY: STEPHANIE JAQUEZ M.D. ON: Feb 06 2015 10:29A Attending: SHELL CHAUHAN Requesting: SHELL CHAUHAN Requesting Attending Attending ID: [id number] Requesting ID: [id number] Report To 1 ID: Report To 1 Name: , Report To 1 FAX: -- Report To 2 ID: Report To 2 Name: , Report To 2 FAX: -- NextGen Order #: us Historical Provider IMJulisa MAMMO PROCEDURES Arline l Result documented in this encounter Visit Diagnoses Diagnosis Other screening mammogram documented in this encounter Care Teams Mobile Application Developer Relationship Specialty [place] [address] [facility] [address] [place] [address] PCP - General 02/06/13 12/14/16 documented as of this encounter
--- OUTSIDE RECORDS SUMMARY | 2024-07-02 04:46 | XMS_ITS | Encounter Summary ---
Author Organization [facility] Healthcare Address [address] [place] [address] Care Team Providers Care Jockey Room Custodian Name Role Phone Priya Mora MD Primary Care Provider + [phone] Encounter Details Date Type Department Care Team (Late st Contact Info) Description 10/09/2013 9:49 AM CDT - 10/09/2013 11:59 PM CDT Hospital Encounter [facility] Leatha Mohr MD [address] [place] [address] Other screening mammogram Social History Tobacco Use Types Packs/Day Years Used Date Smoking Tobacco: Never Assessed Comments Unknown Sex and Gender Information Value Date Recorded Sex Assigned at Not on file 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 Gender Identity Not on file Sexual Orientation Not on file documented as of this encounter Plan of Treatment Not on file documented as of this encounter Procedures Procedure Name Priority Date/Time Associated Diagnosis Comments DIGITAL MAMMOGRAPHY Routine 10/09/2013 1 0:08 AM CDT documented in this encounter Results * DIGITAL MAMMOGRAPHY (10/09/2013 10:08 AM CDT) Anatomical Region Laterality Modality Breast Mammography 10/09/2013 10:0 8 AM CDT Narrative 10/09/2013 5:01 PM CDT Acc#: ??[id number] RAQUEL [id number] - Screening Mamm BI DATE OF EXAM: ??Oct 09 2013 10:08AM DIAGNOSIS: ??SCREEN MAMMOGRAPHY NEC CLINICAL HISTORY: ??screening RESULT: ?\ BREAST SCREENING DIGITAL WITH CAD BILATERAL A digital mammography study was performed with CAD. ??Compared to 08/29/12. Breasts are extremely dense and significantly limits detection for nodule and mass lesions. ??There are no suspicious calcifications or distortion. ?? There is no new nodule or mass lesion suspected in the interval. ?? IMPRESSION: ?\ CATEGORY 2 -- BENIGN TECHNOLOGIST: ?? BRIAN EL TECHNOLOGIST MEDICAL IMAGING ASSISTANT MERCHANDISE MANAGER: ??DMJevon TRANSCRIBE DATE/TIME: ??Oct 09 2013 ??3:06P RADIOLOGIST: ??STEPHANIE JAQUEZ M.D. ??READ ON: ??Oct 09 2013 11:38A ORDERING DR: LEATHA CHAUHAN M.D. THIS DOCUMENT HAS BEEN ELECTRONICALLY SIGNED BY: ??STEPHANIE JAQUEZ M.D. ??ON: ??Oct 09 2013 ??5:01P Requesting Fax: ??[phone] Procedure Note Provider, MD Luisa - 11/04/2016 Acc#: [id number] RAQUEL [id number] - Screening Mamm BI DATE OF EXAM: Oct 09 2013 10:08AM DIAGNOSIS: SCREEN MAMMOGRAPHY NEC CLINICAL HISTORY: screening RESULT: \ BREAST SCREENING DIGITAL WITH CAD BILATERAL A digital mammography study was performed with CAD. Compared to08/29/12. Breasts are extremely dense and significantly limits detection for nodule and mass lesions. There are no suspicious calcifications or distortion. There is no new nodule or mass lesion suspected in the interval. IMPRESSION: \ CATEGORY 2 -- BENIGN TECHNOLOGIST: BRIAN EL TECHNOLOGIST MEDICAL IMAGING ASSISTANT MERCHANDISE MANAGER: DM2 TRANSCRIBE DATE/TIME: Oct 09 2013 3:06P RADIOLOGIST: STEPHANIE JAQUEZ M.D. READ ON: Oct 09 2013 11:38A ORDERING DR: LEATHA CHAUHAN M.D. THIS DOCUMENT HAS BEEN ELECTRONICALLY SIGNED BY: STEPHANIE JAQUEZ M.D. ON: Oct 09 2013 5:01P Requesting us Historical Provider MD SHI MAMMO PROCEDURES Arline l Result documented in this encounter Visit Diagnoses Diagnosis Other screening mammogram documented in this encounter Care Teams Jockey Room Custodian Relationship Specialty [place] [address] [address] [address] PCP - General 02/06/13 12/14/16 documented as of this encounter
--- OUTSIDE RECORDS SUMMARY | 2024-07-02 04:46 | XMS_ITS | Encounter Summary ---
Author Organization [facility] Healthcare Address [address] [place] [address] Care Team Providers Care Dry Cleaner Hand Name Role Phone Priya Velasquez MD Primary Care Provider [phone] Encounter Details Date Type Department Care Team (Late st Contact Info) Description 12/21/2016 8:08 AM CDT - 12/21/2016 11:59 PM CDT Hospital Encounter [facility] Leatha Gupta MD [address] [place] [address] Discharge Disposition: Discharge to home or self care Social History Tobacco Use Types Packs/Day Years Used Date Smoking Tobacco: Never Assessed Comments Unknown Sex and Gender Information Value Date Recorded Sex Assigned at Not on file Legal Sex Female 12:19 AM CLINICAL BUSINESS ANALYST Gender Identity Not on file Sexual Orientation Not on file documented as of this encounter Discharge Disposition Disposition Code Departure Means Destination Discharge to home or self care documented in this encounter Plan of Treatment Not on file documented as of this encounter Procedures Procedure Name Priority Date/Time Associated Diagnosis Comments BREAST SONOGRAPHY Routine 12/21/2016 2:5 8 PM CDT SCREENING MAMMOGRAM Routine 12/21/2016 1 :58 PM CDT documented in this encounter Results * BREAST SONOGRAPHY (12/21/2016 2:58 PM CDT) Anatomical Region Laterality Modality Breast Ultrasound 12/21/2016 2:58 PM CDT Narrative 12/21/2016 2:58 PM CDT DATE OF EXAM: ??Dec 21 2016 ??9:58AM Acc#: ??[id number] ??EUS 0083 - US Breast Limited R ?? DIAGNOSIS: ??OTH ABN AND INCONCLUSIVE FINDINGS ON DX CLINICAL HISTORY: ?? BREAST ASYMMETY RESULT: Examination: 1. ??Right unilateral diagnostic digital mammography with CAD and tomosynthesis 2. ??Limited right breast ultrasound History: 46-year-old female who was called back for further evaluation of findings in the right breast. Comparison: 12/03/2016, 02/05/2015, 10/09/2013 and 2012. Findings: Right mammogram: Medial lateral, spot compression craniocaudal, spot compression mediolateral oblique and spot compression medial lateral views of the right breast were obtained utilizing full field digital mammography. Breast is heterogeneously dense that could obscure small masses. Previously described oval-shaped isodense mass measuring approximately 28 mm at 9 o'clock position, 6 cm from nipple, persists on spot compression views. ??A small or focal asymmetry in upper outer right breast at 10 basilar clock position, 9 cm from nipple, becomes less conspicuous on spot compression imaging. There is no suspicious clustered microcalcification or architectural distortion. ??Ultrasound will be performed for further evaluation. This examination has been subjected to R2/CAD analysis. Limited right breast ultrasound: Targeted sonographic evaluation of the right breast was performed. At 9 o'clock position, 517 from nipple, there is a 2.7 x 2.1 x 1.1 cm oval-shaped simple cyst with benign sonographic features. ??At 10 o'clock position, 9 cm from nipple, there is a 15 x 14 x 9 mm simple cyst. ??At 10 o'clock position, 4.5 cm from nipple, there is an 8 x 4 x 10 mm cluster of microcysts. ??Sonographic survey of the right axilla demonstrates benign appearing lymph nodes. IMPRESSION: 1. ??BI-RADS Category 2, benign. 2. ??Multiple right breast cysts correspond to mammographic abnormalities. ?? 3. ??Annual screening mammography of the right breast is recommended. 4. ??Dr. Sutton discussed the finding and recommendation with the patient at the time of examination. Electronically signed by: Moshe Sutton M.D. ? CUSTOMER ENGAGEMENT REPRESENTATIVE: ??PSC TRANSCRIBE DATE/TIME: ??Dec 21 2016 ??3:47P RADIOLOGIST: ??MOSHE SUTTON M.D. ??READ ON: ??Dec 21 2016 ??3:51P ORDERING DR: LEATHA GUPTA M.D. ? THIS DOCUMENT HAS BEEN ELECTRONICALLY SIGNED BY: ??MOSHE SUTTON M.D. ??ON: ??Dec 21 2016 ??3:47P Attending: ??TIEN, ??LEATHA Requesting: ??TIEN, ??LEATHA Requesting Fax: ??[phone] Attending Fax: ??[phone] Attending ID: ??[id number] Requesting ID: ??[id number] Report To 1 ID: ?? Report To 1 Name: ??, ?? Report To 1 FAX: ??-- Report To 2 ID: ?? Report To 2 Name: ??, ?? Report To 2 FAX: ??-- NextGen Order #: ?? Procedure Note Miscellaneous, Not In File / Provider, MD Luisa - 12/21/2016 DATE OF EXAM: Dec 21 2016 9:58AM Acc#: [id number] EUS 0083 - US Breast Limited R DIAGNOSIS: OTH ABN AND INCONCLUSIVE FINDINGS ON DX CLINICAL HISTORY: BREAST ASYMMETY RESULT: Examination: 1. Right unilateral diagnostic digital mammography with CAD and tomosynthesis 2. Limited right breast ultrasound History: 46-year-old female who was called back for further evaluation of findings in the right breast. Comparison: 12/03/2016, 02/05/2015, 10/09/2013 and 2012. Findings: Right mammogram: Medial lateral, spot compression craniocaudal, spot compression mediolateral oblique and spot compression medial lateral views of the right breast were obtained utilizing full field digital mammography. Breast is heterogeneously dense that could obscure small masses. Previously described oval-shaped isodense mass measuring approximately 28 mm at 9 o'clock position, 6 cm from nipple, persists on spot compression views. A small or focal asymmetry in upper outer right breast at 10 basilar clock position, 9 cm from nipple, becomes less conspicuous on spot compression imaging. There is no suspicious clustered microcalcification or architectural distortion. Ultrasound will be performed for further evaluation. This examination has been subjected to R2/CAD analysis. Limited right breast ultrasound: Targeted sonographic evaluation of the right breast was performed. At 9 o'clock position, 517 from nipple, there is a 2.7 x 2.1 x 1.1 cm oval-shaped simple cyst with benign sonographic features. At 10 o'clock position, 9 cm from nipple, there is a 15 x 14 x 9 mm simple cyst. At 10 o'clock position, 4.5 cm from nipple, there is an 8 x 4 x 10 mm cluster of microcysts. Sonographic survey of the right axilla demonstrates benign appearing lymph nodes. IMPRESSION: 1. BI-RADS Category 2, benign. 2. Multiple right breast cysts correspond to mammographic abnormalities. 3. Annual screening mammography of the right breast is recommended. 4. Dr. Sutton discussed the finding and recommendation with the patient at the time of examination. Electronically signed by: Moshe Sutton M.D. CUSTOMER ENGAGEMENT REPRESENTATIVE: PSC TRANSCRIBE DATE/TIME: Dec 21 2016 3:47P RADIOLOGIST: MOSHE SUTTON M.D. READ ON: Dec 21 2016 3:51P ORDERING DR: LEATHA GUPTA M.D. THIS DOCUMENT HAS BEEN ELECTRONICALLY SIGNED BY: MOSHE STUTON M.D. ON: Dec 21 2016 3:47P Attending: LEATHA GUPTA Requesting: LEATHA GUPTA Requesting Attending Attending ID: [id number] Requesting ID: [id number] Report To 1 ID: Report To 1 Name: , Report To 1 FAX: -- Report To 2 ID: Report To 2 Name: , Report To 2 FAX: -- NextGen Order #: us Not In File Miscellaneous IMG US PROCEDURES Arline l Result * Screening Mammogram (12/21/2016 1:58 PM CDT) Anatomical Region Laterality Modality Breast N/A Mammography 12/21/2016 1:58 PM CDT Narrative 12/21/2016 1:58 PM CDT Acc#: ??[id number] [facility] [id number] - Diag Mamm Jl Addl views Uni R DATE OF EXAM: ??Dec 21 2016 ??8:58AM DIAGNOSIS: ??OTH ABN AND INCONCLUSIVE FINDINGS ON DX CLINICAL HISTORY: ??BREAST ASYMMETY RESULT: Examination: 1. ??Right unilateral diagnostic digital mammography with CAD and tomosynthesis 2. ??Limited right breast ultrasound History: 46-year-old female who was called back for further evaluation of findings in the right breast. Comparison: 12/03/2016, 02/05/2015, 10/09/2013 and 2012. Findings: Right mammogram: Medial lateral, spot compression craniocaudal, spot compression mediolateral oblique and spot compression medial lateral views of the right breast were obtained utilizing full field digital mammography. Breast is heterogeneously dense that could obscure small masses. Previously described oval-shaped isodense mass measuring approximately 28 mm at 9 o'clock position, 6 cm from nipple, persists on spot compression views. ??A small or focal asymmetry in upper outer right breast at 10 basilar clock position, 9 cm from nipple, becomes less conspicuous on spot compression imaging. There is no suspicious clustered microcalcification or architectural distortion. ??Ultrasound will be performed for further evaluation. This examination has been subjected to R2/CAD analysis. Limited right breast ultrasound: Targeted sonographic evaluation of the right breast was performed. At 9 o'clock position, 517 from nipple, there is a 2.7 x 2.1 x 1.1 cm oval-shaped simple cyst with benign sonographic features. ??At 10 o'clock position, 9 cm from nipple, there is a 15 x 14 x 9 mm simple cyst. ??At 10 o'clock position, 4.5 cm from nipple, there is an 8 x 4 x 10 mm cluster of microcysts. ??Sonographic survey of the right axilla demonstrates benign appearing lymph nodes. ? IMPRESSION: 1. ??BI-RADS Category 2, benign. 2. ??Multiple right breast cysts correspond to mammographic abnormalities. ?? 3. ??Annual screening mammography of the right breast is recommended. 4. ??Dr. Sutton discussed the finding and recommendation with the patient at the time of examination. Electronically signed by: Amir Momtahen, M.D. ? TECHNOLOGIST: ?? MACO CHOW, TECHNOLOGIST MEDICAL IMAGING CUSTOMER ENGAGEMENT REPRESENTATIVE: ??PSC TRANSCRIBE DATE/TIME: ??Dec 21 2016 ??3:47P RADIOLOGIST: ??MOSHE SUTTON M.D. ??READ ON: ??Dec 21 2016 ??3:51P ORDERING DR: LEATHA GUPTA M.D. THIS DOCUMENT HAS BEEN ELECTRONICALLY SIGNED BY: ??LESLEY Prince, MOSHE ??ON: ??Dec 21 2016 ??3:47P Attending: ??TIEN, ??LEATHA Requesting: ??TIEN, ??LEATHA Requesting Fax: ??[phone] Attending Fax: ??[phone] Attending ID: ??[id number] Requesting ID: ??[id number] Report To 1 ID: ?? Report To 1 Name: ??, ?? Report To 1 FAX: ??-- Report To 2 ID: ?? Report To 2 Name: ??, ?? Report To 2 FAX: ??-- NextGen Order #: ?? Procedure Note Miscellaneous, Not In File / Provider, MD Luisa - 12/21/2016 Acc#: [id number] [facility] [id number] - Diag Mamm Jl Addl views Uni R DATE OF EXAM: Dec 21 2016 8:58AM DIAGNOSIS: OTH ABN AND INCONCLUSIVE FINDINGS ON DX CLINICAL HISTORY: BREAST ASYMMETY RESULT: Examination: 1. Right unilateral diagnostic digital mammography with CAD and tomosynthesis 2. Limited right breast ultrasound History: 46-year-old female who was called back for further evaluation of findings in the right breast. Comparison: 12/03/2016, 02/05/2015, 10/09/2013 and 2012. Findings: Right mammogram: Medial lateral, spot compression craniocaudal, spot compression mediolateral oblique and spot compression medial lateral views of the right breast were obtained utilizing full field digital mammography. Breast is heterogeneously dense that could obscure small masses. Previously described oval-shaped isodense mass measuring approximately 28 mm at 9 o'clock position, 6 cm from nipple, persists on spot compression views. A small or focal asymmetry in upper outer right breast at 10 basilar clock position, 9 cm from nipple, becomes less conspicuous on spot compression imaging. There is no suspicious clustered microcalcification or architectural distortion. Ultrasound will be performed for further evaluation. This examination has been subjected to R2/CAD analysis. Limited right breast ultrasound: Targeted sonographic evaluation of the right breast was performed. At 9 o'clock position, 517 from nipple, there is a 2.7 x 2.1 x 1.1 cm oval-shaped simple cyst with benign sonographic features. At 10 o'clock position, 9 cm from nipple, there is a 15 x 14 x 9 mm simple cyst. At 10 o'clock position, 4.5 cm from nipple, there is an 8 x 4 x 10 mm cluster of microcysts. Sonographic survey of the right axilla demonstrates benign appearing lymph nodes. IMPRESSION: 1. BI-RADS Category 2, benign. 2. Multiple right breast cysts correspond to mammographic abnormalities. 3. Annual screening mammography of the right breast is recommended. 4. Dr. Sutton discussed the finding and recommendation with the patient at the time of examination. Electronically signed by: Moshe Sutton M.D. TECHNOLOGIST: MACO CHOW TECHNOLOGIST MEDICAL IMAGING CUSTOMER ENGAGEMENT REPRESENTATIVE: MashON TRANSCRIBE DATE/TIME: Dec 21 2016 3:47P RADIOLOGIST: MOSHE SUTTON M.D. READ ON: Dec 21 2016 3:51P ORDERING DR: LEATHA GUPTA M.D. THIS DOCUMENT HAS BEEN ELECTRONICALLY SIGNED BY: MOSHE SUTTON M.D. ON: Dec 21 2016 3:47P Attending: LEATHA GUPTA Requesting: LEATHA GUPTA Requesting Attending Attending ID: [id number] Requesting ID: [id number] Report To 1 ID: Report To 1 Name: , Report To 1 FAX: -- Report To 2 ID: Report To 2 Name: , Report To 2 FAX: -- NextGen Order #: us Not In File Miscellaneous IMG MAMMO PROCEDURES F inal Result documented in this encounter Visit Diagnoses Not on filedocumented in this encounter Care Teams Dry Cleaner Hand Relationship Specialty [place] [address] [place] [address] PCP - General 12/15/16 04/25/18 documented as of this encounter
--- OUTSIDE RECORDS SUMMARY | 2024-07-02 04:46 | XMS_ITS | Encounter Summary ---
Author Organization [facility] Address 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 She is complaining of sore throat, chills, fatigue. History of Covid 07/01. Pt is vaccinated. Encounter Details Date Type Department Care Team (Late st Contact Info) Description 11/30/2021 11:15 AM CDT Office Visit [facility] [address] [place] [id number] Chelo Yuan, MAR[place] [address] [place] [address] Exposure to COVID-19 virus (Primary Dx); Pharyngitis due to other organism Social History Tobacco Use Types Packs/Day Years Used Date Smoking Tobacco: Never Assessed Comments No Sex and Gender Information Value Date Recorded Sex Assigned at Not on file Legal Sex Female 12:19 AM PACKAGE PICK UP Gender Identity Not on file Sexual Orientation Not on file documented as of this encounter Last Filed Vital Signs Vital Sign Reading Time Taken Comments Blood Pressure 130/70 11/30/2021 11:22 AM CDT Pulse 77 11/30/2021 11:22 AM CDT Temperature 37.1 ??C (98.7 ??F) 11/30/2021 11:22 AM C DT Respiratory Rate 16 11/30/2021 11:22 AM CDT Oxygen Saturation 98% 11/30/2021 11:22 AM CDT Inhaled Oxygen Concentration - - Weight 91.6 kg (202 lb) 11/30/2021 11:22 AM CDT Height 162.6 cm (5' 4 ) 11/30/2021 11:22 AM CDT Body Mass Index 34.67 11/30/2021 11:22 AM CDT documented in this encounter Patient Instructions * Patient Instructions* Chelo Yuan NP - 11/30/2021 12:15 PM CDT Antigen-Influenza and COVID negative. Will send PCR for COVID, influenza and RSV Strep negative Follow a BRAT diet-Bananas, rice, apple sauce and [place] Follow up with PCP if the symptoms persist * Attachments The following attachments cannot be sent through Care Everywhere. * Viral Syndrome ([place]) ([place]) documented in this encounter Progress Notes * Chelo Yuan NP - 11/30/2021 11:15 AM CDT Subjective/Objective Patient ID: Betina Coy is a 51 y.o. female. Chief Complaint COVID-19 EVALUATION (Pt was exposed to Covid from a coworker. She is complaining of sore throat, chills, fatigue. History of Covid 07/01. 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 Hx COVID 06/2021-received mAb. Onset this am-c/o sore throat, chills, fatigue, upset stomach. COVID vaccine with booster. Sore Throat This is a new problem. The current episode started today. Neither side of throat is experiencing more pain than the other. There has been no fever. Associated symptoms include coughing. Pertinent negatives include no abdominal pain, congestion, diarrhea, ear discharge, ear pain, headaches, hoarse voice, plugged ear sensation, neck pain, shortness of breath, stridor, swollen glands, trouble swallowing or vomiting. She has had no exposure to strep or mono. She has tried nothing for the symptoms. Fatigue This is a new problem. The current episode started today. The problem occurs constantly. The problem has been unchanged. Associated symptoms include chills, coughing, fatigue, myalgias, nausea and a sore throat. Pertinent negatives include no abdominal pain, anorexia, arthralgias, chest pain, congestion, fever, headaches, joint swelling, neck pain, numbness, rash, swollen glands, urinary symptoms, vertigo, visual change, vomiting or weakness. She has tried nothing for the symptoms. Review of Systems Constitutional: Positive for chills and fatigue. Negative for appetite change and fever. HENT: Positive for sore throat. Negative for congestion, ear discharge, ear pain, hoarse voice, postnasal drip, rhinorrhea, sinus pressure, sinus pain, sneezing and trouble swallowing. Eyes: Negative for pain, discharge and itching. Respiratory: Positive for cough. Negative for chest tightness, shortness of breath, wheezing and stridor. Cardiovascular: Negative for chest pain and palpitations. Gastrointestinal: Positive for nausea. Negative for abdominal distention, abdominal pain, anorexia,diarrhea and vomiting. Musculoskeletal: Positive for myalgias. Negative for arthralgias, joint swelling and neck pain. Skin: Negative for rash. Neurological: Negative for dizziness, vertigo, weakness, light-headedness, numbness and headaches. Psychiatric/Behavioral: Negative for agitation. Physical Exam Constitutional: General: She is not in acute distress. Appearance: Normal appearance. She is well-developed. She is not ill-appearing. HENT: Head: Normocephalic and atraumatic. Right Ear: Tympanic membrane, ear canal and external ear normal. There is no impacted cerumen. Left Ear: Tympanic membrane, ear canal and external ear normal. There is no impacted cerumen. Nose: Nose normal. No congestion or rhinorrhea. Mouth/Throat: Mouth: Mucous membranes are moist. Pharynx: Oropharynx is clear. No oropharyngeal exudate or posterior oropharyngeal erythema. Eyes: General: Right eye: No discharge. Left eye: No discharge. Conjunctiva/sclera: Conjunctivae normal. Pupils: Pupils are equal, round, and reactive to light. Cardiovascular: Rate and Rhythm: Normal rate and regular rhythm. Heart sounds: Normal heart sounds. No murmur heard. Pulmonary: Effort: Pulmonary effort is normal. No respiratory distress. Breath sounds: Normal breath sounds. No wheezing, rhonchi or rales. Chest: Chest wall: No tenderness. Abdominal: General: Bowel sounds are normal. There is no distension. Palpations: Abdomen is soft. Tenderness: There is no abdominal tenderness. There is no right CVA tenderness, left CVA tendernessor guarding. Lymphadenopathy: Cervical: No cervical adenopathy. Skin: General: Skin is warm. Findings: No erythema or rash. Neurological: Mental Status: She is alert and oriented to person, place, and time. Psychiatric: Mood and Affect: Mood normal. Behavior: Behavior normal. Vitals: 11/30/21 1122 BP: 130/70 BP Location: Left arm Patient Position: Sitting Pulse: 77 Resp: 16 Temp: 37.1 ??C (98.7 ??F) TempSrc: Oral SpO2: 98% Weight: 91.6 kg (202 lb) Height: 162.6 cm (5' 4 ) Assessment/Plan Diagnoses and all orders for this visit: Exposure to COVID-19 virus (Primary) Comments: Antigen-Influenza and COVID negative. Will send PCR for COVID, influenza and RSV Strep negative Follow a BRAT diet- Orders: - POC Influenza A/B, COVID-19 antigen - POCT rapid strep A Pharyngitis due to other organism Comments: Strep negative Orders: - Influenza A/B, RSV, and COVID-19 PCR Nasopharyngeal; Future Disposition- Discussed medications dosages, usage & potential side effects. Risks and interactions reviewed with patient. Indications for testing reviewed. Patient has been instructed to follow up w PCP or go to ER for any signs or symptoms that are of concern or worsening. Patient verbalizes understanding. The patient was given the opportunity to ask all questions and to have all questions answered. Patient is in agreement with the plan of care Chelo Yuan NP documented in this encounter Plan of Treatment Not on file documented as of this encounter Procedures Procedure Name Priority Date/Time Associated Diagnosis Comments POC INFLUENZA A/B, COVID-19 ANTIGEN Routine 11/30/2021 11:48 AM CDT Exposure to COVID-19 virus POCT RAPID STREP Routine 11/30/2021 11:4 8 AM CDT Exposure to COVID-19 virus documented in this encounter Results * Influenza A/B, RSV, and COVID-19 PCR Nasopharyngeal (11/30/2021 12:23 PM CDT) [facility] COVID-19 RNA Negative Negative [facility] Influenza A RNA Negative Negative [facility] Influenza B RNA Negative Negative [facility] RSV RNA Negative Negative [facility] Comment: Interpretive data: This test is performed using the [employer] Xpert Xpress CoV-2/Flu/RSV plus assay. This is a multiplex, real-time reverse transcriptase PCR assay intended for the qualitative detection of nucleic acid from SARS-CoV-2, influenza A, influenza B, and respiratory syncytial virus. This assay has been reviewed by the FDA for Emergency Use Authorization (EUA). The performance characteristics have been verified by the performing laboratory. Results must be considered in the clinical context, and a negative result does not rule out infection. Interpretive Data last revised 2021. Nasopharyngeal 11/30/2021 12 :23 PM CDT 11/30/2021 8:26 PM CDT Narrative [facility] - 11/30/2021 9:36 PM CDT Is the Patient experiencing symptoms consistent with COVID?->Yes Date of Symptom Onset->11/30/21 Reason for testing?->Known exposure to confirmed or suspected COVID-19 case Chelo Yuan [employer] [facility] MICROBIOLOGY - GENERA L ORDERABLES Final Result [facility] [address] Department [place] [address] * POCT rapid strep A (11/30/2021 11:48 AM CDT) [facility] Rapid Strep A, POC Negative Swab 11/30/2021 11:4 8 AM CDT Chelo Yuan [employer] POINT OF CARE TEST ORDERA BLES Final Result * POC Influenza A/B, COVID-19 antigen (11/30/2021 11:48 AM CDT) Influenza A Ag, POC Negative [facility] Influenza B Ag, POC Negative [facility] COVID-[facility] Ag POC Presumptive Negative Presumptive Negative, Invalid [facility] Nasal 11/30/2021 11:4 8 AM CDT Chelo Yuan [employer] POINT OF CARE TEST ORDERA BLES Final Result [facility] [address] [place] [address] documented in this encounter Visit Diagnoses Diagnosis Exposure to COVID-19 virus- Primary Pharyngitis due to other organism Pharyngitis due to other organism documented in this encounter Additional Health Concerns Infection Onset Date Last Indicated Resolved Time COVID: Suspected 11/30/2021 11/30/2021 11/30/2021 11:49 AM CDT COVID: Suspected 11/30/2021 11/30/2021 11/30/2021 11:55 AM CDT COVID: Suspected 11/30/2021 11/30/2021 11/30/2021 9:37 PM CDT documented as of this encounter
--- OUTSIDE RECORDS SUMMARY | 2024-07-02 04:46 | XMS_ITS | Encounter Summary ---
Author Organization [facility] Address [address] [place] [address] Care Team Providers Care Corporate Communications Manager Name Role Phone Unavailable Primary Care Provider Unavailabl e Reason for Visit * Reason Comments Chest Pain Pt states pressure i n chest on the 4th Nauseated today SOB for one week Encounter Details Date Type Department Care Team (Late st Contact Info) Description 07/24/2022 3:30 PM BOTTLE WASHING MACHINE OPERATOR - 07/24/2022 10:21 PM BOTTLE WASHING MACHINE OPERATOR Emergency [facility] [address] [place] [address] [place] [address] [facility] [address] [place] [address] Chest pain, unspecified type (Primary Dx); Dizziness Discharge Disposition: Discharge to home or self care Social History Tobacco Use Types Packs/Day Years Used Date Smoking Tobacco: Never Assessed Comments No Sex and Gender Information Value Date Recorded Sex Assigned at Not on file Legal Sex Female 12:19 AM BOTTLE WASHING MACHINE OPERATOR Gender Identity Not on file Sexual Orientation Not on file documented as of this encounter Last Filed Vital Signs Vital Sign Reading Time Taken Comments Blood Pressure 107/72 07/24/2022 10:15 PM BOTTLE WASHING MACHINE OPERATOR Pulse 72 07/24/2022 10:15 PM BOTTLE WASHING MACHINE OPERATOR Temperature 36.3 ??C (97.3 ??F) 07/24/2022 3:16 PM CS T Respiratory Rate 24 07/24/2022 10:1 5 PM BOTTLE WASHING MACHINE OPERATOR Oxygen Saturation 98% 07/24/2022 10: 15 PM BOTTLE WASHING MACHINE OPERATOR Inhaled Oxygen Concentration - - Weight 91.6 kg (201 lb 15.1 oz) 07/24/2022 3:16 PM BOTTLE WASHING MACHINE OPERATOR Height 162.6 cm (5' 4.02 ) 07/24/2022 3:16 PM CS T Body Mass Index 34.65 07/24/2022 3:16 PM BOTTLE WASHING MACHINE OPERATOR documented in this encounter Discharge Instructions * Attachments The following attachments cannot be sent through Care Everywhere. * Chest Pain (AfterCare(R) Instructions(ER/ED)) (Dutch) * Dizziness, Uncertain Cause (Dutch) documented in this encounter Discharge Disposition Disposition Code Departure Means Destination Discharge to home or self care documented in this encounter ED Notes * Kenneth Roberto MD - 07/24/2022 7:02 PM CST HPI Chief Complaint Patient presents with Chest Pain Pt states pressure in chest on the 4th Nauseated today SOB for one week 51 yo female with a history of mitral valve prolapse, polycystic ovarian syndrome, hyperlipidemia presents with about 2 weeks of ongoing constant chest pain, intermittent dizziness, migraines. Patient says she was diagnosed with influenza about a month ago. She had had URI symptoms at the time. Twoweeks ago she started to have substernal chest pain and some shortness of breath. She was having intermittent dizziness. She was seen at urgent care. X-ray obtained was negative. She was told this could be a blood clot so to go to the ER if symptoms worsen. Patient said in the past week her symptoms have continued. Chest pain is described as constant pressure, substernal and nonradiating. Rated 6/10. She has had intermittent lightheadedness and dizziness. Today while at work she says she had some headaches like migraines, blurry vision. She never lost consciousness. She denies vomiting but has had some nausea. She was able to drive herself home despite all the symptoms. brought her to the emergency room. She denies leg pain or swelling. She has had no new fevers and cough has resolved. Patient said when she had COVID 2 years ago she had similar symptoms for several months. At this time headache and dizziness have resolved. Patient says she has an appointment with her doctor inthe next week and a half. She denies smoking, alcohol use or drug use. LMP was last month. Patient History: Patient Active Problem List Diagnosis Date Noted MVP (mitral valve prolapse) 11/30/2021 COVID-19 07/09/2021 Hypercholesteremia 01/31/2019 Polycystic ovaries 02/06/2013 Past Medical History: Diagnosis Date HX OTHER MEDICAL polycystic ovarian disease HX OTHER MEDICAL hemorrhoid Past Surgical History: Procedure Laterality Date OTHER SURGICAL HISTORY hemorrhoid: office procedure Family History Problem Relation Age of Onset Other Other No family history of Coronary artery disease; Rectal cancer Mother's Sister Cancer, rectal; Breast cancer Paternal Grandmother Cancer, breast; Other Other No family history of Stroke; Other Other No family history of Diabetes mellitus; Social History Tobacco Use Smoking status: Not on file Smokeless tobacco: Not on file Substance and Sexual Activity Alcohol use: Not on file Drug use: Not on file Sexual activity: Not on file Social History Social History Narrative Not on file Review of Systems Review of Systems Constitutional: Positive for fatigue. Negative for fever. HENT: Negative. Negative for sore throat. Eyes: Positive for visual disturbance. Respiratory: Positive for shortness of breath. Negative for cough and wheezing. Cardiovascular: Positive for chest pain. Negative for palpitations and leg swelling. Gastrointestinal: Positive for nausea. Negative for abdominal pain, diarrhea and vomiting. Genitourinary: Negative. Negative for difficulty urinating. Musculoskeletal: Negative for back pain and neck pain. Skin: Negative. Neurological: Positive for dizziness, light-headedness and headaches. Psychiatric/Behavioral: Negative. Negative for agitation. All other systems reviewed and are negative. Physical Exam ED Triage Vitals [07/24/22 1516] Temp Pulse Resp BP SpO2 36.3 ??C (97.3 ??F) 76 16 152/91 100 % Temp src Heart Rate Source Patient Position BP Location FiO2 (%) Tympanic Monitor Sitting Left arm -- Height Height Method Weight Weight Method 1.626 m (5' 4.02 ) Stated 91.6 kg (201 lb 15.1 oz) Stated Physical Exam Vitals and nursing note reviewed. Constitutional: Appearance: Normal appearance. She is obese. She is not ill-appearing. Comments: Patient is well-appearing in no acute distress HENT: Head: Atraumatic. Nose: Nose normal. Mouth/Throat: Mouth: Mucous membranes are moist. Comments: Moist membranes Eyes: Extraocular Movements: Extraocular movements intact. Conjunctiva/sclera: Conjunctivae normal. Pupils: Pupils are equal, round, and reactive to light. Cardiovascular: Rate and Rhythm: Normal rate and regular rhythm. Pulses: Normal pulses. Pulmonary: Effort: Pulmonary effort is normal. No respiratory distress. Breath sounds: Normal breath sounds. Comments: Lungs are clear to auscultation bilaterally Abdominal: General: There is no distension. Palpations: Abdomen is soft. Tenderness: There is no abdominal tenderness. Comments: Abdomen is soft, nontender. No CVA tenderness bilaterally. Musculoskeletal: General: No swelling, tenderness, deformity or signs of injury. Normal range of motion. Cervical back: Normal range of motion and neck supple. No rigidity. No muscular tenderness. Right lower leg: No tenderness. No edema. Left lower leg: No tenderness. No edema. Comments: No bilateral lower extremity pitting edema, no calf tender Skin: General: Skin is warm and dry. Neurological: General: No focal deficit present. Mental Status: She is alert and oriented to person, place, and time. Mental status is at baseline. Comments: Mental Status- Awake, alert and oriented X 3 Higher Cerebral Function speech- Non aphasic (Normal) Cranial Nerves- II-XII intact Motor function- Right upper extremity 5/5- Normal Strength Left Upper extremity 5/5- Normal Strength Right lower Extremity 5/5- Normal Strength Left Lower extremity 5/5- Normal Strength Sensory Function- Right upper extremity - Normal Sensation Left Upper extremity - Normal sensation Right lower Extremity- Normal Sensation Left Lower extremity - Normal Sensation Coordination- Normal Gait- Normal Psychiatric: Mood and Affect: Mood normal. [facility] Medical Decision Making Assessment and plan- 51 yo female with a history of mitral valve prolapse, polycystic ovarian syndrome, hyperlipidemia presents with about 2 weeks of ongoing constant chest pain, intermittent dizziness, migraines. Patient has stable vitals and normal exam. Well-appearing. Differential diagnosis includes ACS, PE, migraine headaches, post viral syndrome, hypothyroidism. Obtain EKG, chest x-ray, head CT, blood work. Will give full-dose aspirin. Problems Addressed: Chest pain, unspecified type: acute illness or injury Amount and/or Complexity of Data Reviewed Independent Historian: spouse External Data Reviewed: notes. Labs: ordered. Decision-making details documented in ED Course. Radiology: ordered and independent interpretation performed. Decision-making details documented in ED Course. ECG/medicine tests: ordered. Risk OTC drugs. ED Course as of 07/25/22 1421 Time: 07/24 2010 Comment: Blood work so far as reveals WBC of 11 with normal H&H and platelets. Normal electrolytes and renal function. First troponin is negative. Normal D- dimer, normal BNP. Normal thyroid function. Normal LFTs and lipase. By: Kenneth Roberto MD Time: 07/24 2011 Comment: Chest x-ray is negative By: Kenneth Roberto MD Time: 07/24 2104 Comment: Second troponin is still negative. By: Kenneth Roberto MD Time: 07/24 2205 Comment: Head CT reveals- Imaging protocol: Computed tomography of the head without contrast. COMPARISON: No relevant prior studies available. FINDINGS: Brain: No evidence of mass effect or midline shift. No evidence of acute intracranial hemorrhage. No evidence of acute territorial infarction. Cerebral ventricles: No hydrocephalus. Paranasal sinuses: Visualized sinuses show no significant mucosal thickening. Mastoid air cells: Visualized mastoid air cells are clear. Bones/joints: No evidence of acute calvarial fracture. Soft tissues: No significant soft tissue swelling. IMPRESSION: No evidence of acute intracranial abnormality. By: Kenneth Roberto MD Time: 07/24 2205 Comment: Workup entirely unremarkable. Patient is well-appearing with stable vitals. Will dischargefollow-up with her PCP. By: Kenneth Roberto MD Results of all emergency department testing were discussed with patient. Working diagnosis and treatment plan discussed. I reviewed discharge instructions with the patient. Patient understands these instructions regarding their diagnosis, expectations, follow up, and return precautions. All questions were answered prior to discharge. The patient feels well and is stable for discharge.The patient appears non toxic with stable vital signs. The patient is to return to the ER if symptoms worsen or other concerns arise. The patient is agreeable with discharge. Final diagnoses: Chest pain, unspecified type Dizziness Kenneth Roberto MD 07/25/22 1421 LE WASHING MACHINE OPERATOR documented in this encounter Plan of Treatment Not on file documented as of this encounter Procedures Procedure Name Priority Date/Time Associated Diagnosis Comments CT HEAD WO CONTRAST ED 07/24/2022 8 :36 PM BOTTLE WASHING MACHINE OPERATOR URINALYSIS AND REFLEX TO MICROSCOPIC STAT 07/24/2022 8:17 PM BOTTLE WASHING MACHINE OPERATOR TROPONIN T HIGH-SENSITIVITY 2-HOUR Timed 07/24/2022 8:16 PM BOTTLE WASHING MACHINE OPERATOR XR CHEST 1 VIEW ED 07/24/2022 6:22 PM BOTTLE WASHING MACHINE OPERATOR TROPONIN T HIGH-SENSITIVITY SERIES (BASELINE, 2HR, 4HR, 6HR) STAT 07/24/2022 6:18 PM BOTTLE WASHING MACHINE OPERATOR EGFR STAT 07/24/2022 6:18 PM BOTTLE WASHING MACHINE OPERATOR DIFFERENTIAL AUTO STAT 07/24/2022 6:1 8 PM BOTTLE WASHING MACHINE OPERATOR PRO B-TYPE NATRIURETIC PEPTIDE STAT 07/24/2022 6:18 PM BOTTLE WASHING MACHINE OPERATOR THYROID FUNCTION CASCADE Add-On 07/24/2022 6:18 PM BOTTLE WASHING MACHINE OPERATOR CBC WITH AUTO DIFFERENTIAL STAT 07/24/2022 6:18 PM BOTTLE WASHING MACHINE OPERATOR PROTIME-INR STAT 07/24/2022 6:18 PM BOTTLE WASHING MACHINE OPERATOR D-DIMER, QUANTITATIVE Add-On 07/24/2022 6:18 PM BOTTLE WASHING MACHINE OPERATOR HCG, BLOOD, QUANTITATIVE Add-On 07/24/2022 6:18 PM BOTTLE WASHING MACHINE OPERATOR LIPASE STAT 07/24/2022 6:18 PM BOTTLE WASHING MACHINE OPERATOR COMPREHENSIVE METABOLIC PANEL STAT 07/24/2022 6:18 PM BOTTLE WASHING MACHINE OPERATOR ECG 12-LEAD STAT 07/24/2022 3:15 PM BOTTLE WASHING MACHINE OPERATOR documented in this encounter Results * CT Head WO Contrast (07/24/2022 8:36 PM BOTTLE WASHING MACHINE OPERATOR) Anatomical Region Laterality Modality Head and Neck N/A Computed Tomogra phy 07/24/2022 8:29 PM BOTTLE WASHING MACHINE OPERATOR Impressions 07/25/2022 6:35 AM BOTTLE WASHING MACHINE OPERATOR No acute intracranial abnormality. Electronically signed by: Arias Cook M.D. Narrative 07/25/2022 6:35 AM BOTTLE WASHING MACHINE OPERATOR EXAMINATION: CT head without contrast HISTORY: Headache, visual disturbance.. TECHNIQUE: Noncontrast CT of the brain was performed with images acquired from skull base to vertex. COMPARISON: None available. FINDINGS: There is no acute intracranial hemorrhage. Ventricles are of normal size and morphology. No mass effect or midline shift is present. The valladares-white matter differentiation is normal. The visualized portions of the orbits are without acute abnormality. The visualized portions of the mastoids are normal. The visualized portions of the paranasal sinuses are normal. No fractures are identified. Procedure Note Arias Cook MD - 07/25/2022 EXAMINATION: CT head without contrast HISTORY: Headache, visual disturbance.. TECHNIQUE: Noncontrast CT of the brain was performed with images acquired from skull base to vertex. COMPARISON: None available. FINDINGS: There is no acute intracranial hemorrhage. Ventricles are of normal size and morphology. No mass effect or midline shift is present. The valladares-white matter differentiation is normal. The visualized portions of the orbits are without acute abnormality. The visualized portions of the mastoids are normal. The visualized portions of the paranasal sinuses are normal. No fractures are identified. IMPRESSION: No acute intracranial abnormality. Electronically signed by: Arias Cook M.D. Kenneth Roberto MD IMG CT PROCEDURES Final Result * (ABNORMAL) Urinalysis reflex to microscopic (07/24/2022 8:17 PM BOTTLE WASHING MACHINE OPERATOR) Color, ur Yellow Yellow [facility] Clarity, ur Clear Clear [facility]ERN[facility] Specific gravity, ur 1.020 1.003 - 1.030 [facility] pH, urine 5.5 [facility] Protein, ur ql Negative Negative [facility] Glucose, ur ql Negative Negative [facility] Ketones, ur 1+(A) Negative [facility] Bilirubin, ur Negative Negative [facility] Blood, ur Negative Negative [facility] Urobilinogen, ur 0.2 <2.0 mg/dL [facility] Nitrite, ur Negative Negative [facility] Leukocyte esterase, ur Negative Negative [facility] UA reflex comment Reflex conditions for microscopic UA not met. [facility] Urine 07/24/2022 8:17 PM BOTTLE WASHING MACHINE OPERATOR 07/24/2022 8:19 PM BOTTLE WASHING MACHINE OPERATOR Narrative [facility] - 07/24/2022 8:37 PM BOTTLE WASHING MACHINE OPERATOR ?? Urine pH is affected by diet, medications, systemic acid-base disturbances, and renal tubular function. ??pH may affect urinary stone formation. ??For example, urine pH below 6.0 may help reduce the tendency for calcium phosphate stones and pH greater than 6.0 may reduce the tendency for uric acid stone formation. Source: [employer]. Last revised 07-22-2017 Kenneth Roberto MD LAB URINE ORDERABLES Final Resul t [facility] [address] [place] [address] * Troponin T high-sensitivity 2-hour (07/24/2022 8:16 PM BOTTLE WASHING MACHINE OPERATOR) Trop T hs <6 <=14 ng/L [facility] Comment: Interpretive Data For further hscTnT resources including the diagnostic algorithm and an aid in interpretation, copy and paste this link: https://nrl.testcatalog.org/show/hsTrop Current Interpretive Data last revised 2020. Trop T hs delta 0 ng/L [facility] Trop T hs interp Insignificant [facility] Blood 07/24/2022 8:16 PM BOTTLE WASHING MACHINE OPERATOR 07/24/2022 8:21 PM BOTTLE WASHING MACHINE OPERATOR us Kenneth Roberto MD LAB BLOOD ORDERABLES Final Resul t [facility] [address] Department [place] [address] * XR Chest 1 Vw Portable (07/24/2022 6:22 PM BOTTLE WASHING MACHINE OPERATOR) Anatomical Region Laterality Modality Body, Chest N/A Computed Radiogr aphy 07/24/2022 6:27 PM BOTTLE WASHING MACHINE OPERATOR Impressions 07/24/2022 6:27 PM BOTTLE WASHING MACHINE OPERATOR No evidence of active cardiopulmonary disease. Electronically signed by: Demarco Delarosa M.D. Narrative 07/24/2022 6:27 PM BOTTLE WASHING MACHINE OPERATOR EXAM: ?? XR CHEST 1 VIEW DATE: ?? 07/24/2022 6:05 PM CLINICAL HISTORY: ?? Chest pain. COMPARISON: ?? None FINDINGS: ?? Portable AP radiograph of the chest was obtained. ??The heart and mediastinum are within normal limits. ??The lungs are well-expanded and clear. ??No bony abnormality is seen. Procedure Note Demarco Delarosa MD - 07/24/2022 EXAM: XR CHEST 1 VIEW DATE: 07/24/2022 6:05 PM CLINICAL HISTORY: Chest pain. COMPARISON: None FINDINGS: Portable AP radiograph of the chest was obtained. The heart and mediastinum are within normal limits. The lungs are well-expanded and clear. No bony abnormality is seen. IMPRESSION: No evidence of active cardiopulmonary disease. Electronically signed by: Demarco Delarosa M.D. Result [facility] Kenneth Roberto MD IMG XR PROCEDURES Final Result * hCG, blood, quantitative (07/24/2022 6:18 PM BOTTLE WASHING MACHINE OPERATOR) hCG, quant 0.5 0.0 - 5.0 IUnits/L [facility] Comment: Interpretive Data Non- Female premenopausal: < or = 5.0 IUnits/L Men: < 5.0 IUnits/L Weeks of Gestation ? Reference Interval ?? 3 to 6 ? 5.8-31,795 IUnits/L ?? 7 to 10 ? 3,697-186,977 IUnits/L ??12 to 15 ?27,832- 70,791 IUnits/L ??16 to 18 ? 9,040- 58,179 IUnits/L The [employer] hCG Beta Quant assay procedure was used. Results from different manufacturers or methods may not be comparable. Serial testing should be performed using the same method. Current Interpretive Data was last revised on 2021. Blood 07/24/2022 6:18 PM BOTTLE WASHING MACHINE OPERATOR 07/24/2022 7:32 PM BOTTLE WASHING MACHINE OPERATOR Result [facility] Kenneth Roberto MD LAB BLOOD ORDERABLES Final Resul t [facility] [address] Department [place] [address] * TSH reflex to free T4 (07/24/2022 6:18 PM BOTTLE WASHING MACHINE OPERATOR) TSH 2.44 0.30 - 4.20 mcIUnit/mL [facility] Blood 07/24/2022 6:18 PM BOTTLE WASHING MACHINE OPERATOR 07/24/2022 7:11 PM BOTTLE WASHING MACHINE OPERATOR Result [facility] Kenneth Roberto MD LAB BLOOD ORDERABLES Final Resul t Performing Organization Address [facility] de Phone Number [facility] [id number] [place] [address] * D-dimer, quantitative (07/24/2022 6:18 PM BOTTLE WASHING MACHINE OPERATOR) D-Dimer 393 <=499 ng/mL FEU [facility] Comment: Interpretive data FDA approved the D-dimer, in conjunction with a low or moderate pretest probability score, to exclude venous thromboembolic events (VTE) (PE and DVT) in outpatients when the D-dimer result is < 500 ng/ml FEU. ?? Evidence supports using an age-adjusted D-dimer cut-off for outpatients older than 50 (age x 10) to improve specificity without sacrificing sensitivity. Example: age 68, VTE cut-off 680 ng/ml FEU. References; [place] FUENTES et al. Brit Med J. 2013;346:f2492. Baldev et al. Annals Int Med. 2015;163:701-11. Current interpretive data was last revised on 2019. Blood 07/24/2022 6:18 PM BOTTLE WASHING MACHINE OPERATOR 07/24/2022 7:10 PM BOTTLE WASHING MACHINE OPERATOR us Kenneth Roberto MD LAB BLOOD ORDERABLES Final Resul t Performing Organization Address [facility] [place] [address] [address] [place] [address] * eGFR (07/24/2022 6:18 PM BOTTLE WASHING MACHINE OPERATOR) eGFR 105 mL/min/1. 73 m2 [facility] Comment: Interpretive Data Reference Interval Normal ?>/= 90 mL/min/1.73m2 Mildly decreased* ? 60 - 89 mL/min/1.73m2 Mildly to moderately decreased ?45 - 59 mL/min/1.73m2 Moderately to severely decreased ??30 - 44 mL/min/1.73m2 Severely decreased ?15 - 29 mL/min/1.73m2 Kidney Failure ?< 15 ??mL/min/1.73m2 *Relative to young adult level Estimated glomerular filtration rate is determined by the 2020 CKD-EPI equation recommended by the National Kidney Foundation (A Unifying Approach to GFR Estimation: Recommendations of the NKF-ASK Task Force on Reassessing the Inclusion of Race in Diagnosing Kidney Disease, JASN 2020). The CKD-EPI equation should not be used for patients with unstable renal function and has not been validated in children and those over 70. Current interpretive data was last reviewed 2021. Blood 07/24/2022 6:18 PM BOTTLE WASHING MACHINE OPERATOR 07/24/2022 6:30 PM BOTTLE WASHING MACHINE OPERATOR us Kenneth Roberto MD LAB BLOOD ORDERABLES Final Resul t [facility] [address] Department [place] [address] * (ABNORMAL) Differential, auto (07/24/2022 6:18 PM BOTTLE WASHING MACHINE OPERATOR) Neutrophil abs 7.4(H) 1.7 - 6.5 K/cumm [facility] Imm gran abs 0.0 0.0 - 0.1 K/cumm [facility] Lymphocyte abs 2.8 0.8 - 3.3 K/cumm [facility] Monocyte abs 0.7 0.2 - 0.8 K/cumm [facility] Eosinophil abs 0.2 0.0 - 0.5 K/cumm [facility] Basophil abs 0.1 0.0 - 0.1 K/cumm [facility] Neutrophil pct 65.8 % [facility] Comment: Interpretive Data Percent cell count reference ranges are not reported, since discordance with absolute values may lead to misinterpretation of CBC data. Current Interpretive Data was last revised on 2017. Imm gran pct 0.4 % [facility] Comment: Interpretive Data Percent cell count reference ranges are not reported, since discordance with absolute values may lead to misinterpretation of CBC data. Current Interpretive Data was last revised on 2017. Lymphocyte pct 24.5 % [facility] Comment: Interpretive Data Percent cell count reference ranges are not reported, since discordance with absolute values may lead to misinterpretation of CBC data. Current Interpretive Data was last revised on 2017. Monocyte pct 6.5 % [facility]A Comment: Interpretive Data Percent cell count reference ranges are not reported, since discordance with absolute values may lead to misinterpretation of CBC data. Current Interpretive Data was last revised on 2017. Eosinophil pct 2.1 % [facility] Comment: Interpretive Data Percent cell count reference ranges are not reported, since discordance with absolute values may lead to misinterpretation of CBC data. Current Interpretive Data was last revised on 2017. Basophil pct 0.7 % [facility] Comment: Interpretive Data Percent cell count reference ranges are not reported, since discordance with absolute values may lead to misinterpretation of CBC data. Current Interpretive Data was last revised on 2017. Blood 07/24/2022 6:18 PM BOTTLE WASHING MACHINE OPERATOR 07/24/2022 6:30 PM BOTTLE WASHING MACHINE OPERATOR Kenneth Roberto MD LAB BLOOD ORDERABLES Final Resul t Performing Organization Address City/State/[facility] de Phone Number K[facility] [address] [facility] Department [place] [address] * Troponin T high-sensitivity series (baseline, 2hr, 4hr, 6hr) (07/24/2022 6:18 PM BOTTLE WASHING MACHINE OPERATOR) Trop T hs <6 <=14 ng/L [facility] SIGALA Comment: Interpretive Data For further hscTnT resources including the diagnostic algorithm and an aid in interpretation, copy and paste this link: https://nrl.testcatalog.org/show/hsTrop Current Interpretive Data last revised 2020. Blood 07/24/2022 6:18 PM BOTTLE WASHING MACHINE OPERATOR 07/24/2022 6:30 PM BOTTLE WASHING MACHINE OPERATOR Kenneth Roberto MD LAB BLOOD ORDERABLES Final Resul t [facility] [id number] [facility] [place] [address] * Protime-INR (07/24/2022 6:18 PM BOTTLE WASHING MACHINE OPERATOR) PT 10.6 9.2 - 13.5 sec [facility] INR 1.0 0.9 - 1.2 CERNER Comment: Interpretive data Oral anticoagulant therapeutic ranges: Venous thromboembolism prophylaxis or treatment: 2.0-3.0 CARDIOLOGY Standard range: 2.0-3.0 High-intensity range: 2.5-3.5 Refer to indication-specific guidelines for appropriate target ranges for prosthetic heart valve replacement. Current interpretive data was last revised on 2019. Blood 07/24/2022 6:18 PM BOTTLE WASHING MACHINE OPERATOR 07/24/2022 6:30 PM BOTTLE WASHING MACHINE OPERATOR Kenneth Roberto MD LAB BLOOD ORDERABLES Final Resul t Performing Organization Address [facility] de Phone Number KIRILL SIGALA [address] [place] [address] * Lipase (07/24/2022 6:18 PM BOTTLE WASHING MACHINE OPERATOR) Pathologist [facility] Lipase 28 10 - 99 Units/L [facility] Blood 07/24/2022 6:18 PM BOTTLE WASHING MACHINE OPERATOR 07/24/2022 6:30 PM BOTTLE WASHING MACHINE OPERATOR Kenneth Roberto MD LAB BLOOD ORDERABLES Final Resul t Performing Organization Address [facility] de Phone Number KIRILL SIGALA [address] [place] [address] * Comprehensive metabolic panel (07/24/2022 6:18 PM BOTTLE WASHING MACHINE OPERATOR) Sodium 140 135 - 145 mmol/L [facility] Potassium, pl 4.0 3.3 - 4.9 mmol/L [facility] Chloride 104 97 - 110 mmol/L [facility] CO2 24 22 - 32 mmol/L [facility] Anion gap 12 2 - 15 mmol/L [facility] BUN 8 8 - 25 mg/dL [facility] Creatinine 0.69 0.60 - 1.10 mg/dL [facility] Glucose 93 70 - 199 mg/dL [facility] Comment: Interpretive Data Fasting glucose >/= 126 mg/dl is diagnostic for diabetes. ?? Fasting is defined as no caloric intake for at least 8 hours. Fasting glucose between 100 mg/dl to 125 mg/dl is diagnostic of prediabetes. In a patient with classic symptoms of hyperglycemia or hyperglycemic crisis, a random glucose >/= 200 mg/dl is diagnostic for diabetes. In the absence of unequivocal hyperglycemia, results should be confirmed by repeat testing. The classification and Diagnosis of Diabetes Diabetes Care 2017;40 (Suppl. 1):S11. Current interpretive data was last revised 2017. Calcium 9.1 8.5 - 10.3 mg/dL [facility] Bilirubin, total 0.4 0.1 - 1.2 mg/dL [facility] Protein, pl 7.1 6.5 - 8.5 g/dL [facility] Albumin 4.4 3.5 - 5.0 g/dL [facility] Alk phos 45 40 - 130 Units/L [facility] ALT 14 7 - 45 Units/L [facility] AST 18 10 - 45 Units/L [facility] Blood 07/24/2022 6:18 PM BOTTLE WASHING MACHINE OPERATOR 07/24/2022 6:30 PM BOTTLE WASHING MACHINE OPERATOR us Kenneth Roberto MD LAB BLOOD ORDERABLES Final Resul t [facility] [id number] [place] [address] * (ABNORMAL) CBC with auto differential (07/24/2022 6:18 PM BOTTLE WASHING MACHINE OPERATOR) WBC 11.2(H) 3.8 - 9.9 K/cumm [facility] Hgb 13.8 11.9 - 15.5 g/dL [facility] Hct 41.2 35.6 - 45.5 % [facility] Plt 397 150 - 400 K/cumm [facility] MPV 8.9(L) 9.1 - 12.3 fL [facility] RBC 4.63 3.90 - 5.20 M/cumm [facility] MCV 89.0 81.3 - 96.4 fL KIRILL MCH 29.8 27.1 - 33.3 pg KIRILL MCHC 33.5 32.3 - 35.7 g/dL KIRILL RDW CV 13.2 11.1 - 14.9 % KIRILL RDW SD 42.8 35.7 - 48.1 fL KIRILL NRBC abs 0.00 0.00 - 0.01 K/cumm [facility] Blood 07/24/2022 6:18 PM BOTTLE WASHING MACHINE OPERATOR 07/24/2022 6:30 PM BOTTLE WASHING MACHINE OPERATOR us Kenneth Roberto MD LAB BLOOD ORDERABLES Final Resul t KIRILL [address] Department [place] [address] * Pro B-type natriuretic peptide (07/24/2022 6:18 PM BOTTLE WASHING MACHINE OPERATOR) NT-proBNP 21 <=300 pg/mL K[facility]ILL Comment: Interpretive Comments: A. Dyspnea in Acute Care Setting All Ages: ?< 300 pg/ml, acute heart failure unlikely. < 50 yrs: ?300 - 450 pg/ml, further investigation warranted. ? > 450 pg/ml, acute heart failure likely. 50 - 74 yrs: ? 300 - 900 pg/ml, further investigation warranted. ? > 900 pg/ml, acute heart failure likely . > or = 75 yrs: ? 450 - 1800 pg/ml, further investigation warranted. ? > 1800 pg/ml, acute heart failure likely. B. Non-acute Setting < 75 yrs ? < 125 pg/ml, rules out heart failure. ? > or = 125 pg/ml, further investigation warranted. > or = 75 yrs ?< 450 pg/ml, rules out heart failure. ? > or = 450 pg/ml, further investigation warranted. - Knowledge of each individual patient's NT-proBNP range may be more useful than using similar cut-points for every patient. Please note that marked elevations in NT-proBNP levels may be observed in state other than Left Ventricular Congestive Failure, including: acute coronary syndromes, right heart strain/failure (including pulmonary embolism and cor pulmonale), critical illness, renal failure, as well as advanced age. - References: 1. Tamie STEEL et.al. Eur Heart J. 2006:27:330-337. 2. Nhi RW, Bola MCPHERSON. J. AM Michelle Cardiol: Cardiovasc Imag. 2009;2: 216- 225. Interpretive Data Last Revised Date: 2018. Blood 07/24/2022 6:18 PM BOTTLE WASHING MACHINE OPERATOR 07/24/2022 6:30 PM BOTTLE WASHING MACHINE OPERATOR Kenneth Roberto MD LAB BLOOD ORDERABLES Final Resul t Performing Organization Address [facility] de Phone Number [facility] [address] [facility] [place] [address] * ECG 12 lead (07/24/2022 3:15 PM BOTTLE WASHING MACHINE OPERATOR) 07/24/2022 3:15 PM BOTTLE WASHING MACHINE OPERATOR Narrative [facility] - 07/24/2022 6:17 PM BOTTLE WASHING MACHINE OPERATOR Vent Rate: 73 bpm RR Interval: 819 msec WV Interval: 133 msec QRS Duration: 85 msec QT Interval: 373 msec QTC Interval: 398 msec P-R-T [place]: 11 - -23 - 18 degrees SINUS RHYTHM BORDERLINE LEFT AXIS DEVIATION BORDERLINE ECG Electronically Signed By: Dewayne Etienne MD Taya DE LA ROSA ECG ORDERABLES Final Re sult Performing Organization Address [facility] Co de Phone Number [facility] [employer] [facility] documented in this encounter Visit Diagnoses Diagnosis Chest pain, unspecified type- Primary Dizziness Dizziness and giddiness documented in this encounter Administered Medications Inactive Administered Medications - up to 3 most recent administrations Medication Order MAR Action Action Date Dose Rate Site aspirin chewable tablet 324 mg 324 mg, oral, Once, On Wed07/24/22 at 1902, For 1 dose Given 07/24/2022 7:12 PM BOTTLE WASHING MACHINE OPERATOR 324 mg sodium chloride 0.9% bolus 1,000 mL 1,000 mL, intravenous, at 1,000 mL/hr, Administer over 1 Hours, Once, On Wed07/24/22 at 1902, For 1 dose New Bag 07/24/2022 7:13 PM BOTTLE WASHING MACHINE OPERATOR 1,000 mL 100 0 mL/hr documented in this encounter Active and Recently Administered Medications Times are shown in BOTTLE WASHING MACHINE OPERATOR. Scheduled Medication Order 07/22/2022 07/23/2022 07/24/2022 aspirin chewable tablet 324 mg (COMPLETED) 324 mg, oral, Once, On Wed07/24/22 at 1902, For 1 dose 1911 (Given - Provid er: Mirta Collins) sodium chloride 0.9% bolus 1,000 mL (COMPLETED) 1,000 mL, intravenous, at 1,000 mL/hr, Administer over 1 Hours, Once, On Wed07/24/22 at 1902, For 1 dose 1912 (New Bag - Prov ider: Mirta Collins)2210 (Stopped - Provider: Julia Cervantes RN) documented in this encounter Orders EKG Orders Without Results Count Last Ordered D ate First Ordered Date ECG 12-LEAD 07/24/2022 documented in this encounter
--- OUTSIDE RECORDS SUMMARY | 2024-07-02 04:46 | XMS_ITS | Encounter Summary ---
Author Organization [facility] Healthcare Address [address] [place] [address] Care Team Providers Care Conductor Pullman Name Role Phone Priya Mora MD Primary Care Provider + [phone] Encounter Details Date Type Department Care Team (Late st Contact Info) Description 2012 11:15 AM FIBERGLASS BOAT FINISHER - 2012 11:59 PM FIBERGLASS BOAT FINISHER Hospital Encounter [facility] Leatha Gupta MD [address] [place] [address] Other screening mammogram Social History Tobacco Use Types Packs/Day Years Used Date Smoking Tobacco: Never Assessed Comments Unknown Sex and Gender Information Value Date Recorded Sex Assigned at Not on file Legal Sex Female 12:19 AM FIBERGLASS BOAT FINISHER Gender Identity Not on file Sexual Orientation Not on file documented as of this encounter Plan of Treatment Not on file documented as of this encounter Procedures Procedure Name Priority Date/Time Associated Diagnosis Comments DIGITAL MAMMOGRAPHY Routine 2012 1 1:43 AM FIBERGLASS BOAT FINISHER documented in this encounter Results * DIGITAL MAMMOGRAPHY (2012 11:43 AM FIBERGLASS BOAT FINISHER) Anatomical Region Laterality Modality Breast Mammography 2012 11:4 3 AM FIBERGLASS BOAT FINISHER Narrative 09/01/2012 11:33 AM FIBERGLASS BOAT FINISHER Acc#: ??[id number] RAQUEL [id number] - Screening Mamm BI DATE OF EXAM: ??2012 11:43AM DIAGNOSIS: ??SCREEN MAMMOGRAPHY NEC CLINICAL HISTORY: ??SCREENING RESULT: ?\ DIGITAL SCREENING MAMMOGRAM WITH CAD ?? Two view examination of each breast obtained and compared with previous examination of ??08/09/02. ??CAD is utilized. Dense elements. No dominant masses or malignant microcalcifications. ?? IMPRESSION: ?\ CATEGORY 2, BENIGN MAMMOGRAM. ?? IMPRESSION OF OVERALL ASSESSMENT CATEGORY 2 ??BENIGN TECHNOLOGIST: ?? MACO CHOW, TECHNOLOGIST MEDICAL IMAGING PRODUCT DEVELOPMENT ENGINEER: ??SP8 TRANSCRIBE DATE/TIME: ??Sep 01 2012 11:17A RADIOLOGIST: ??CARY LIMON M.D. ??READ ON: ??Sep 01 2012 ??9:47A ORDERING DR: LEATHA GUPTA M.D. THIS DOCUMENT HAS BEEN ELECTRONICALLY SIGNED BY: ??CARY LIMON M.D. ??ON: ??Sep 01 2012 11:33A Procedure Note Provider, Luisa, - 11/04/2016 Acc#: [id number] RAQUEL [id number] - Screening Mamm BI DATE OF EXAM: 2012 11:43AM DIAGNOSIS: SCREEN MAMMOGRAPHY NEC CLINICAL HISTORY: SCREENING RESULT: \ DIGITAL SCREENING MAMMOGRAM WITH CAD Two view examination of each breast obtained and compared with previous examination of 08/09/02. CAD is utilized. Dense elements. No dominant masses or malignant microcalcifications. IMPRESSION: \ CATEGORY 2, BENIGN MAMMOGRAM. IMPRESSION OF OVERALL ASSESSMENT CATEGORY 2 BENIGN TECHNOLOGIST: MACO CHOW TECHNOLOGIST MEDICAL IMAGING PRODUCT DEVELOPMENT ENGINEER: SP8 TRANSCRIBE DATE/TIME: Sep 01 2012 11:17A RADIOLOGIST: CARY LIMON M.D. READ ON: Sep 01 2012 9:47A ORDERING DR: LEATHA GUPTA M.D. THIS DOCUMENT HAS BEEN ELECTRONICALLY SIGNED BY: CARY LIMON M.D. ON: Sep 01 2012 11:33A Historical Provider MD SHI MAMMO PROCEDURES Arline l Result documented in this encounter Visit Diagnoses Diagnosis Other screening mammogram documented in this encounter Care Teams Conductor Pullman Relationship Specialty [place] [address] [phone] PCP - General 03/10/07 02/05/13 documented as of this encounter
--- OUTSIDE RECORDS SUMMARY | 2024-07-02 04:46 | XMS_ITS | Encounter Summary ---
Author Organization [facility] Healthcare Address [address] [place] [address] Care Team Providers Care Business Communications Instructor Name Role Phone Unavailable Primary Care Provider Unavailabl e Encounter Details Date Type Department Care Team (Late st Contact Info) Description 11/30/2021 8:10 PM CDT Lab [address] [address] Pharyngitis due to other organism Social History Tobacco Use Types Packs/Day Years Used Date Smoking Tobacco: Never Assessed Comments No Sex and Gender Information Value Date Recorded Sex Assigned at Not on file Legal Sex Female 12:19 AM CORNICE UPHOLSTERER Gender Identity Not on file Sexual Orientation Not on file documented as of this encounter Plan of Treatment Not on file documented as of this encounter Procedures Procedure Name Priority Date/Time Associated Diagnosis Comments INFLUENZA A/B, RSV, AND COVID-19 PCR Routine 11/30/2021 12:23 PM CDT Pharyngitis due to other organism documented in this encounter Results * Influenza A/B, RSV, and COVID-19 PCR Nasopharyngeal (11/30/2021 12:23 PM CDT) COVID-19 RNA Negative Negative [facility] Influenza A RNA Negative Negative [facility] Influenza B RNA Negative Negative [facility] RSV RNA Negative Negative [facility] Comment: Interpretive data: This test is performed using the iTwin Xpert Xpress CoV-2/Flu/RSV plus assay. This is [...] PM CDT 11/30/2021 8:26 PM CDT Narrative [facility] [place] 11/30/2021 9:36 PM CDT Is the Patient experiencing symptoms consistent with COVID?->Yes Date of Symptom Onset->11/30/21 Reason for testing?->Known exposure to confirmed or suspected COVID-19 case Chelo Yuan FINISHED GOODS PLANNER LAB MICROBIOLOGY - GENERA L ORDERABLES Final Result KIR[facility] [address] Department [place] [address] documented in this encounter Visit Diagnoses Diagnosis Pharyngitis due to other organism documented in this encounter Additional Health Concerns Infection Onset Date Last Indicated Resolved Time COVID: Suspected 11/30/2021 11/30/2021 11/30/2021 9:37 PM CDT documented as of this encounter
--- OUTSIDE RECORDS SUMMARY | 2024-07-02 04:46 | XMS_ITS | Encounter Summary ---
Author Organization [facility] Healthcare Address [address] [place] [address] Care Team Providers Care Senior Linux Administrator Name Role Phone Priya Mora MD Primary Care Provider + [phone] Encounter Details Date Type Department Care Team (Late st Contact Info) Description 12/03/2016 10:18 AM CDT - 12/03/2016 11:59 PM CDT Hospital Encounter [facility] Leatha Gupta MD [address] [place] [address] Discharge Disposition: Discharge to home or self care Social History Tobacco Use Types Packs/Day Years Used Date Smoking Tobacco: Never Assessed Comments Unknown Sex and Gender Information Value Date Recorded Sex Assigned at Not on file Legal Sex Female 12:19 AM AGRICULTURE SPECIALIST Gender Identity Not on file Sexual Orientation Not on file documented as of this encounter Discharge Disposition Disposition Code Departure Means Destination Discharge to home or self care documented in this encounter Plan of Treatment Not on file documented as of this encounter Procedures Procedure Name Priority Date/Time Associated Diagnosis Comments DIGITAL MAMMOGRAPHY Routine 12/03/2016 4 :18 PM CDT documented in this encounter Results * DIGITAL MAMMOGRAPHY (12/03/2016 4:18 PM CDT) Anatomical Region Laterality Modality Breast Mammography 12/03/2016 4:18 PM CDT Narrative 12/03/2016 4:18 PM CDT Acc#: ??[id number] RAQUEL [id number] - Screening Mamm BI DATE OF EXAM: ??Dec 03 2016 11:18AM DIAGNOSIS: ??ENCNTR SCREEN MAMMOGRAM FOR MALIGNANT NE CLINICAL HISTORY: ??SCREENING RESULT: Examination: Bilateral screening digital mammography with CAD History: Routine screening, family history of breast cancer in patient's grandmother at unknown age. Comparison: 02/05/2015, 10/09/2013 and 2012. Findings: Craniocaudal and mediolateral oblique views of both breasts were obtained utilizing full field digital mammography. Breasts are heterogeneously dense that could obscure small masses. There is a nodular asymmetry in outer right breast, approximately 6 cm deep from the nipple. ??Corresponding finding is suggested along the posterior nipple line on MLO view. ??A second asymmetry in outer right breast, approximately 10 cm deep from the nipple, may have corresponding finding in upper right breast. ??Benign-appearing calcifications are seen in the right breast. There is no suspicious clustered microcalcification or architectural distortion. This examination has been subjected to R2/CAD analysis. ? IMPRESSION: 1. ??BI-RADS Category 0, incomplete. ??Need additional imaging evaluation. 2. ??Further evaluation of the right breast with additional mammographic views is recommended. ??Ultrasound is likely needed. 3. ??Annual screening mammography of the left breast is recommended. Electronically signed by: Moshe Nolen M.D. ? TECHNOLOGIST: ?? BRIAN LÓPEZ TECHNOLOGIST MEDICAL IMAGING KETTLE SKIMMER: ??[facility] TRANSCRIBE DATE/TIME: ??Dec 03 2016 ??4:36P RADIOLOGIST: ??MOSHE NOLEN M.D. ??READ ON: ??Dec 03 2016 ??4:40P ORDERING DR: LEATHA GUPTA M.D. THIS DOCUMENT HAS BEEN ELECTRONICALLY SIGNED BY: ??MOSHE NOLEN M.D. ??ON: ??Dec 03 2016 ??4:36P Attending: ??TIEN, ??LETAHA Requesting: ??TIEN, ??LEATHA Requesting Fax: ??[phone] Attending Fax: ??[phone] Attending ID: ??[id number] Requesting ID: ??[id number] Report To 1 ID: ?? Report To 1 Name: ??, ?? Report To 1 FAX: ??-- Report To 2 ID: ?? Report To 2 Name: ??, ?? Report To 2 FAX: ??-- NextGen Order #: ?? Procedure Note Miscellaneous, Not In File / Provider, MD Luisa - 12/17/2016 Acc#: [id number] RAQUEL 0017 - Screening Mamm BI DATE OF EXAM: Dec 03 2016 11:18AM DIAGNOSIS: ENCNTR SCREEN MAMMOGRAM FOR MALIGNANT NE CLINICAL HISTORY: SCREENING RESULT: Examination: Bilateral screening digital mammography with CAD History: Routine screening, family history of breast cancer in patient's grandmother at unknown age. Comparison: 02/05/2015, 10/09/2013 and 2012. Findings: Craniocaudal and mediolateral oblique views of both breasts were obtained utilizing full field digital mammography. Breasts are heterogeneously dense that could obscure small masses. There is a nodular asymmetry in outer right breast, approximately 6 cm deep from the nipple. Corresponding finding is suggested along the posterior nipple line on MLO view. A second asymmetry in outer right breast, approximately 10 cm deep from the nipple, may have corresponding finding in upper right breast. Benign-appearing calcifications are seen in the right breast. There is no suspicious clustered microcalcification or architectural distortion. This examination has been subjected to R2/CAD analysis. IMPRESSION: 1. BI-RADS Category 0, incomplete. Need additional imaging evaluation. 2. Further evaluation of the right breast with additional mammographic views is recommended. Ultrasound is likely needed. 3. Annual screening mammography of the left breast is recommended. Electronically signed by: Moshe Nolen M.D. TECHNOLOGIST: BRIAN LÓPEZ TECHNOLOGIST MEDICAL IMAGING KETTLE SKIMMER: [facility] TRANSCRIBE DATE/TIME: Dec 03 2016 4:36P RADIOLOGIST: MOSHE NOLEN M.D. READ ON: Dec 03 2016 4:40P ORDERING DR: LEATHA GUPTA M.D. THIS DOCUMENT HAS BEEN ELECTRONICALLY SIGNED BY: MOSHE NOLEN M.D. ON: Dec 03 2016 4:36P Attending: LEATHA GUPTA Requesting: LEATHA GUPTA Requesting Attending Attending ID: [id number] Requesting ID: [id number] Report To 1 ID: Report To 1 Name: , Report To 1 FAX: -- Report To 2 ID: Report To 2 Name: , Report To 2 FAX: -- NextGen Order #: us Not In File Miscellaneous IMG MAMMO PROCEDURES F inal Result documented in this encounter Visit Diagnoses Not on filedocumented in this encounter Care Teams Senior Linux Administrator Relationship Specialty [place] [address] [address] [phone] PCP - General 02/06/13 12/14/16 documented as of this encounter
--- OUTSIDE RECORDS SUMMARY | 2024-07-02 04:46 | XMS_ITS | Encounter Summary ---
Author Organization [facility] Healthcare Address [address] [place] [address] Care Team Providers Care Film Coater Name Role Phone Unavailable Primary Care Provider Unavailabl e Reason for Visit * Diagnostic Imaging (Routine) - Closed Specialty Diagnoses / Procedures Referred By Sherie t Referred To Contact Procedures Breast Imaging US Outside Reference Carey Pemberton MD [address] [place] [address] Phone: tel: fax: Referral ID Status Reason Start Date Expiration Date Visits Re quested Visits Authorized [id number] Closed 01/27/2023 02/26/2024 1 1 Encounter Details Date Type Department Care Team (Latest Contact Info) Description 03/17/2022 12:05 AM CDT - 03/17/2022 11:59 PM CDT Hospital Encounter [facility] [address] [place] [id number] Discharge Disposition: Discharge to home or self care Social History Tobacco Use Types Packs/Day Years Used Date Smoking Tobacco: Never Assessed Comments No Sex and Gender Information Value Date Recorded Sex Assigned at Not on file Legal Sex Female 12:19 AM SPINDLE PLUMBER Gender Identity Not on file Sexual Orientation Not on file documented as of this encounter Discharge Disposition Disposition Code Departure Means Destination Discharge to home or self care documented in this encounter Plan of Treatment Not on file documented as of this encounter Procedures Procedure Name Priority Date/Time Associated Diagnosis Comments BREAST IMAGING US OUTSIDE REFERENCE Routine 03/17/2022 12:05 AM CDT documented in this encounter Results * Breast Imaging US Outside Reference (03/17/2022 12:05 AM CDT) Impressions [facility] - 01/27/2023 9:58 AM CDT These images are for Reference purposes only and have not been reviewed by [facility]. ??There will be no report generated by a [facility] Radiologist. Narrative [facility] - 01/27/2023 9:58 AM CDT EXAMINATION: ??Images For Reference Purposes Only us Carey Pemberton MD IMG MAMMO PROCEDURES Fi nal Result [facility] documented in this encounter Visit Diagnoses Not on filedocumented in this encounter
--- OUTSIDE RECORDS SUMMARY | 2024-07-02 04:46 | XMS_ITS | Encounter Summary ---
Author Organization [facility] Healthcare Address [address] [place] [address] Care Team Providers Care Resawyer Name Role Phone Unavailable Primary Care Provider Unavailabl e Reason for Visit * Diagnostic Imaging (Routine) - Closed Specialty Diagnoses / Procedures Referred By Contlulu t Referred To Contact Diagnoses Mass of right breast Procedures US Breast Right Limited US Breast Right Complete Leatha Gupta MD Phone: tel: fax: [address] [phone] Referral ID Status Reason Start Date Expiration Date Visits Re quested Visits Authorized [id number] Closed 04/20/2018 10/30/2019 1 1 Encounter Details Date Type Department Care Team (Late st Contact Info) Description 05/04/2018 9:34 AM CDT - 05/04/2018 11:59 PM CDT Hospital Encounter [facility] ` [address] [place] [address] Leatha Gupta MD [address] [place] [id number] 1, Michael Harmon Md Mass of right breast Discharge Disposition: Discharge to home or self care Social History Tobacco Use Types Packs/Day Years Used Date Smoking Tobacco: Never Assessed Comments No Sex and Gender Information Value Date Recorded Sex Assigned at Not on file Legal Sex Female 12:19 AM DIRECTOR OF CONSUMER AFFAIRS Gender Identity Not on file Sexual Orientation Not on file documented as of this encounter Discharge Disposition Disposition Code Departure Means Destination Discharge to home or self care documented in this encounter Plan of Treatment Not on file documented as of this encounter Procedures Procedure Name Priority Date/Time Associated Diagnosis Comments US BREAST RIGHT LIMITED Schedule Routine, Read Routine (OP Routine) 05/04/2018 12:06 PM CDT Mass of right breast documented in this encounter Results * US Breast Right Limited (05/04/2018 12:06 PM CDT) Anatomical Region Laterality Modality Breast Right Ultrasound 05/04/2018 6:15 PM CDT Impressions 05/04/2018 6:15 PM CDT 1) ??The palpable entities reported [...] OVERALL FINAL ASSESSMENT: Category 2: Benign findings. Electronically signed by: Dwayne Cox M.D. Narrative 05/04/2018 6:15 PM CDT EXAMINATION: 1. RIGHT UNILATERAL FULL [...] encounter Visit Diagnoses Diagnosis Mass of right breast Lump or mass in breast documented in this encounter
--- OUTSIDE RECORDS SUMMARY | 2024-07-02 04:46 | XMS_ITS | Encounter Summary ---
Author Organization [facility] Healthcare Address [address] [place] [address] Care Team Providers Care Websphere Architect Name Role Phone Unavailable Primary Care Provider Unavailabl e Reason for Visit * Diagnostic Imaging (Routine) - Closed Specialty Diagnoses / Procedures Referred By Contac t Referred To Contact Procedures Breast Imaging [place] [address] [place] [address] Phone: tel: fax: Referral ID Status Reason Start Date Expiration Date Visits Re quested Visits Authorized [id number] Closed 01/27/2023 02/26/2024 1 1 Encounter Details Date Type Department Care Team (Latest Contact Info) Description 12/24/2021 - 12/24/2021 11:59 PM CDT Hospital Encounter [facility] [address] [place] [address] Discharge Disposition: Discharge to home or self care Social History Tobacco Use Types Packs/Day Years Used Date Smoking Tobacco: Never Assessed Comments No Sex and Gender Information Value Date Recorded Sex Assigned at Not on file Legal Sex Female 12:19 AM JANITORIAL ACCOUNT MANAGER Gender Identity Not on file Sexual Orientation Not on file documented as of this encounter Discharge Disposition Disposition Code Departure Means Destination Discharge to home or self care documented in this encounter Plan of Treatment Not on file documented as of this encounter Procedures Procedure Name Priority Date/Time Associated Diagnosis Comments BREAST IMAGING MG SCREENING OUTSIDE REFERENCE Routine 12/24/2021 12:00 AM CDT documented in this encounter Results * Breast Imaging Screening Outside Reference (12/24/2021 12:00 AM CDT) Impressions [facility]MO[facility] - 01/27/2023 9:58 AM CDT These images are for Reference purposes only and have not been reviewed by [facility]. ??There will be no report generated by a [facility]iologist. Narrative RAD_MAMMO_[facility] - 01/27/2023 9:58 AM CDT EXAMINATION: ??Images For Reference Purposes Only us Carey Pemberton MD IMG MAMMO PROCEDURES Fi nal Result [facility] documented in this encounter Visit Diagnoses Not on filedocumented in this encounter
--- OUTSIDE RECORDS SUMMARY | 2024-07-02 04:46 | XMS_ITS | Encounter Summary ---
Author Organization [facility] Healthcare Address [address] [place] [address] Care Team Providers Care Bottom Scrubber Name Role Phone Unavailable Primary Care Provider Unavailabl e Reason for Visit * Diagnostic Imaging (Routine) - Closed Specialty Diagnoses / Procedures Referred By Contac t Referred To Contact Procedures Breast Imaging Screening Outside Reference Carey Pemberton MD [address] [place] [address] Phone: tel: fax: Referral ID Status Reason Start Date Expiration Date Visits Re quested Visits Authorized [id number] Closed 01/27/2023 02/26/2024 1 1 Encounter Details Date Type Department Care Team (Late st Contact Info) Description 01/05/2019 Hospital Encounter [facility] [address] [place] [id number] Social History Tobacco Use Types Packs/Day Years Used Date Smoking Tobacco: Never Assessed Comments No Sex and Gender Information Value Date Recorded Sex Assigned at Not on file 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 ??There will be no report generated by a [facility] Radiologist. Narrative [facility] - 01/27/2023 9:58 AM CDT EXAMINATION: ??Images For Reference Purposes Only us Carey Pemberton MD IMG MAMMO PROCEDURES [facility] Result [facility] documented in this encounter Visit Diagnoses Not on filedocumented in this encounter Additional Health Concerns Infection Onset Date Last Indicated Resolved Time COVID: Suspected 11/30/2021 11/30/2021 11/30/2021 11:49 AM CDT COVID: Suspected 11/30/2021 11/30/2021 11/30/2021 11:55 AM CDT COVID: Suspected 11/30/2021 11/30/2021 11/30/2021 9:37 PM CDT documented as of this encounter
--- OUTSIDE RECORDS SUMMARY | 2024-07-02 04:46 | XMS_ITS | Encounter Summary ---
Author Organization [facility] Healthcare Address [address] [place] [address] Care Team Providers Care Resident Program Specialist Name Role Phone Unavailable Primary Care Provider Unavailabl e Reason for Visit * Diagnostic Imaging (Routine) - Closed Specialty Diagnoses / Procedures Referred By Sherie t Referred To Contact Procedures Breast Imaging Diagnostic [place] [address] [place] [address] Phone: tel: fax: Referral ID Status Reason Start Date Expiration Date Visits Re quested Visits Authorized [id number] Closed 01/27/2023 02/26/2024 1 1 Encounter Details Date Type Department Care Team (Latest Contact Info) Description 03/17/2022 - 03/17/2022 11:59 PM CDT Hospital Encounter 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 Gender Identity Not on file Sexual Orientation Not on file documented as of this encounter Discharge Disposition Disposition Code Departure Means Destination Discharge to home or self care documented in this encounter Plan of Treatment Not on file documented as of this encounter Procedures Procedure Name Priority Date/Time Associated Diagnosis Comments BREAST IMAGING MG DIAGNOSTIC OUTSIDE REFERENCE Routine 03/17/2022 12:00 AM CDT documented in this encounter Results * Breast Imaging Diagnostic Outside Reference (03/17/2022 12:00 AM CDT) Impressions [facility] - 01/27/2023 9:57 AM CDT These images are for Reference purposes only and have not been reviewed by [facility]. ??There will be no report generated by a [facility] Radiologist. Narrative RAD_MAMMO_[facility] - 01/27/2023 9:57 AM CDT EXAMINATION: ??Images For Reference Purposes Only us Carey Pemberton MD IMG MAMMO PROCEDURES Fi nal Result [facility] documented in this encounter Visit Diagnoses Not on filedocumented in this encounter
--- OUTSIDE RECORDS SUMMARY | 2024-07-02 04:46 | XMS_ITS | Encounter Summary ---
Author Organization [facility] Healthcare Address [address] [place] [address] Care Team Providers Care Wash Helper Name Role Phone Priya Mora MD Primary Care Provider [phone] Encounter Details Date Type Department Care Team (Late st Contact Info) Description 02/09/2013 9:17 AM CDT - 02/09/2013 11:59 PM CDT Hospital Encounter [place] [address] [phone] Routine general medical examination at a health care facility Social History Tobacco Use Types Packs/Day Years Used Date Smoking Tobacco: Never Assessed Comments Unknown Sex and Gender Information Value Date Recorded Sex Assigned at Not on file 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
--- OUTSIDE RECORDS SUMMARY | 2024-07-02 04:46 | XMS_ITS | Encounter Summary ---
Author Organization [facility] Healthcare Address [address] [place] [address] Care Team Providers Care Case Fitter Name Role Phone Unavailable Primary Care Provider Unavailabl e Reason for Visit * Diagnostic Imaging (Routine) - Closed Specialty Diagnoses / Procedures Referred By Contac t Referred To Contact Procedures Breast Imaging Screening Outside Reference Carey Pemberton MD [address] [place] [address] Phone: tel: fax: Referral ID Status Reason Start Date Expiration Date Visits Re quested Visits Authorized [id number] Closed 01/27/2023 02/26/2024 1 1 Encounter Details Date Type Department Care Team (Late st Contact Info) Description 05/22/2020 Hospital Encounter [facility] [address] [place] [address] [phone] Social History Tobacco Use Types Packs/Day Years Used Date Smoking Tobacco: Never Assessed Comments No Sex and Gender Information Value Date Recorded Sex Assigned at Not on file Legal Sex Female 12:19 AM RHIA Gender Identity Not on file Sexual Orientation Not on file documented as of this encounter Plan of Treatment Not on file documented as of this encounter Procedures Procedure Name Priority Date/Time Associated Diagnosis Comments BREAST IMAGING MG SCREENING OUTSIDE REFERENCE Routine 05/22/2020 12:00 AM RHIA documented in this encounter Results * Breast Imaging Screening Outside Reference (05/22/2020 12:00 AM RHIA) Impressions [facility] - 01/27/2023 9:58 AM CDT These images are for Reference purposes only and have not been reviewed by [facility]. ??There will be no report generated by a [facility] Radiologist. Narrative RAD_MAMMO[facility] - 01/27/2023 9:58 AM [...]
--- OUTSIDE RECORDS SUMMARY | 2024-07-02 04:47 | XMS_ITS | Clinical Summary ---
Author Organization [facility] Address [address] [place] [address] Care Team Providers Care Traffic Control Flagger Name Role Phone Unavailable Primary Care Provider Unavailabl e Encounters Date Type Department Care Team Description 06/20/2024 External Device Data STL ABSTRACTION Provider, Abstract 06/13/2024 12:30 PM FLEXOGRAPHIC PRESS OPERATOR Ancillary Procedure [facility] [address] [place] [address] Sukhdeep Farley DC Abdominal pain in female; Gallstones from Last 3 Months Social History Tobacco Use Types Packs/Day Years Used Date Smoking Tobacco: Never Assessed Sex and Gender Information Value Date Recorded Sex Assigned at Not on file Gender Identity Not on file Sexual Orientation Not on file Plan of Treatment Health Maintenance Due Date Last Done Comments Pre-Diabetes and Diabetes Screening 1970 HEPATITIS B VACCINES (1 of 3 - 19+ 3-dose series) 1989 CERVICAL CANCER SCREENING 2000 FIT-DNA Q 3 years 2015 FIT/FOBT Q 1 year 2015 Flex Sig/CT Colonography Q 5 years 2015 ZOSTER VACCINE (1 of 2) 2020 BREAST CANCER SCREENING 01/07/2024 01/07/20 23, 12/30/2022, 03/17/2022, Additional history exists INFLUENZA VACCINE (#1) 2024 3, 05/26/2022, 05/04/2021, Additional history exists COVID-19 Vaccine (2023- season) 2024 05/04/2021, 10/31/2020, 10/10/2020 DTAP/TDAP/TD VACCINES (2 - Td or Tdap) 01/31/2029 01/31/2019 COLORECTAL SCREENING 09/26/2033 09/27/2023 Colorectal Cancer Screening 09/26/2033 PNEUMOCOCCAL VACCINE 0-64 YEARS Aged Out No longer eligible based on patient's age to complete this topic Procedures Procedure Name Priority Date/Time Associated Diagnosis Comments US ABDOMEN LIMITED Routine 06/13/2024 12 :29 PM FLEXOGRAPHIC PRESS OPERATOR Abdominal pain in female Gallstones from Last 3 Months Results * US ABDOMEN LIMITED (06/13/2024 12:29 PM FLEXOGRAPHIC PRESS OPERATOR) Anatomical Region Laterality Modality Abdomen Ultrasound 06/13/2024 12:2 9 PM FLEXOGRAPHIC PRESS OPERATOR Impressions 06/13/2024 12:44 PM FLEXOGRAPHIC PRESS OPERATOR IMPRESSION: Cholelithiasis with no sonographic evidence of acute cholecystitis. 8 x 6.4 x 7.2 mm possible angiomyolipoma in the right kidney. Narrative 06/13/2024 12:44 PM FLEXOGRAPHIC PRESS OPERATOR EXAM: US ABDOMEN LIMITED STUDY DATE: 06/13/2024 12:29 PM CLINICAL INDICATION: Abdominal pain in female; Gallstones COMPARISON: none PROCEDURE: Grayscale and color Doppler sonographic images of the right upper abdomen are obtained. FINDINGS: Liver: Normal echogenicity. ??No focal lesions. There is normal hepatopedal flow in the portal vein. Gallbladder:Negative sonographic Samuel's sign. There are subcentimeter gallstones in the gallbladder. No gallbladder wall thickening or pericholecystic fluid. Biliary tract: Measures up to 4.9 mm, which is within normal limits. Aorta: Normal IVC: Normal Pancreas: Normal Right kidney: Measures 12.2 cm in length. ??Normal echogenicity. No renal calculi. No hydronephrosis. There is an 8 x 6.4 x 7.2 mm echogenic lesion in the lateral midpole of the right kidney, may represent an angiomyolipoma. Procedure Note Yesenia Bingham MD - 06/13/2024 EXAM: US ABDOMEN LIMITED STUDY DATE: 06/13/2024 12:29 PM CLINICAL INDICATION: Abdominal pain in female; Gallstones COMPARISON: none PROCEDURE: Grayscale and color Doppler sonographic images of the right upper abdomen are obtained. FINDINGS: Liver: Normal echogenicity. No focal lesions. There is normal hepatopedal flow in the portal vein. Gallbladder:Negative sonographic Samuel's sign. There are subcentimeter gallstones in the gallbladder. No gallbladder wall thickening or pericholecystic fluid. Biliary tract: Measures up to 4.9 mm, which is within normal limits. Aorta: Normal IVC: Normal Pancreas: Normal Right kidney: Measures 12.2 cm in length. Normal echogenicity. No renal calculi. No hydronephrosis. There is an 8 x 6.4 x 7.2 mm echogenic lesion in the lateral midpole of the right kidney, may represent an angiomyolipoma. IMPRESSION: Cholelithiasis with no sonographic evidence of acute cholecystitis. 8 x 6.4 x 7.2 mm possible angiomyolipoma in the right kidney. Sukhdeep Farley DC ORDERABLES from Last 3 Months
--- OUTSIDE RECORDS SUMMARY | 2024-07-02 04:47 | XMS_ITS | Encounter Summary ---
Author Organization [facility] Address [address] [place] [address] Care Team Providers Care Fruit Bar Maker Name Role Phone Unavailable Primary Care Provider Unavailabl e Encounter Details Date Type Department Care Team (Late st Contact Info) Description 06/20/2024 External Device Data STL ABSTRACTION Provider, Abstract NO ADDRESS ON FILE Social History Tobacco Use Types Packs/Day Years [...]
--- OUTSIDE RECORDS SUMMARY | 2024-07-02 04:47 | XMS_ITS | Encounter Summary ---
Author Organization [employer] [facility] Address [address] [place] [address] Care Team Providers Care Loading Supervisor Name Role Phone Unavailable Primary Care Provider Unavailabl e Reason for Visit * Radiology Services (Routine) - Closed Specialty Diagnoses / Procedures Referred By Contlulu t Referred To Contact Diagnoses Abdominal pain in female Gallstones Procedures US ABDOMEN LIMITED [place] [address] [place] [address] [place] [address] Referral ID Status Reason Start Date Expiration Date Visits Re quested Visits Authorized [id number] Closed 06/13/2024 07/14/2025 1 1 Encounter Details Date Type Department Care Team (Latest Contact Info) Description 06/13/2024 12:30 PM TOY ELECTRIC TRAIN REPAIRER Ancillary Procedure [employer] [address] [phone] [place] [address] [place] [address] [place] [address] Abdominal pain in female; Gallstones Social History Tobacco Use Types Packs/Day Years [...] ABDOMEN LIMITED Routine 06/13/2024 12 :29 PM TOY ELECTRIC TRAIN REPAIRER Abdominal pain in female Gallstones documented in this encounter Results * US ABDOMEN LIMITED (06/13/2024 12:29 PM TOY ELECTRIC TRAIN REPAIRER) Anatomical Region Laterality Modality Abdomen Ultrasound 06/13/2024 12:2 9 PM TOY ELECTRIC TRAIN REPAIRER Impressions 06/13/2024 12:44 PM TOY ELECTRIC TRAIN REPAIRER IMPRESSION: Cholelithiasis with no sonographic evidence of acute cholecystitis. 8 x 6.4 x 7.2 mm possible angiomyolipoma in the right kidney. Narrative 06/13/2024 12:44 PM TOY ELECTRIC TRAIN REPAIRER EXAM: US ABDOMEN LIMITED STUDY DATE: 06/13/2024 [...] in the right kidney. Sukhdeep Farley DC US ORDERABLES documented in this encounter Visit Diagnoses Diagnosis Abdominal pain in female Gallstones Calculus of gallbladder without mention of cholecystitis or obstruction documented in this encounter
--- OUTSIDE RECORDS SUMMARY | 2024-07-02 05:01 | XMS_ITS | Encounter Summary ---
Author Organization [facility] Address [address] [place] [address] Care Team Providers Care High Lift Driver Name Role Phone Naya Leonard DO Unavailable [phone] Bernardo Lizarraga MD Unavailable [phone] Celina Sifuentes MD Primary Care Provider [phone] Reason for Visit * Reason Onset Date Comments Concerns 04/23/2023 Encounter Details Date Type Department Care Team (Late st Contact Info) Description 04/23/2023 Telephone [facility] - Surgery [address] [place] [address] Naya Leonard, [address] [address] Concerns Social History Tobacco Use [...] she wanted to speak with the nurse zipper sewing machine operator. Please contact Manda at your convenience at [phone]. documented in this encounter Plan of Treatment Upcoming Encounters Date Type Department Care Team (Late st Contact Info) Description 07/19/2024 9:45 AM BLISTER PACKAGING MACHINE OPERATOR Office Visit [facility] [address] [place] [address] Leatha Gupta MD [address] [place] [address] 12/11/2024 9:00 AM CDT Office Visit [facility] - Surgery [address] [place] [address], [address] [address] [place] [address] [address] [address] 12/11/2024 10:40 AM CDT Office Visit [facility] [address] [place] [phone] Bernardo Lizarraga MD [facility] [address] [address] documented as of this encounter Visit Diagnoses Not on filedocumented in this encounter Care Teams High Lift Driver Relationship Specialty Start Date End Date Celina Sifuentes MD [address] [place] [phone] PCP - General Family Medicine 02/16/23 11/14/23 Naya Leonard DO [address] [facility] [address] [place] [address] Surgical Oncologist Surgical Oncology 02/15/23 [place] [address] [address] [facility] [address] [place] [phone] Airline Radio Operator/Oncologist Hematology and Oncology 02/16/23 documented as of this encounter
--- OUTSIDE RECORDS SUMMARY | 2024-07-02 05:01 | XMS_ITS | Encounter Summary ---
Author Organization [facility] Address [address] [place] [address] Care Team Providers Care Corporate Fitness Program Coordinator Name Role Phone HoracioNaya Irving DO Unavailable [phone] Bernardo Lizarraga MD Unavailable [phone] Celina Sifuentes MD Primary Care Provider [phone] Reason for Visit * Auth/Cert (Routine) Specialty Diagnoses / Procedures Referred By Contac t Referred To Contact Diagnoses Malignant neoplasm of right female breast, unspecified estrogen receptor status, unspecified site of breast (HCC) Malignant neoplasm of right female breast, unspecified estrogen receptor status, unspecified site of breast (CMS/HCC) [C50.911] Procedures NH INSERTION BREAST IMPLANT SAME DAY OF MASTECTOMY NH GRFG AUTOL FAT LIPO 50 CC/< NH REVISION ANGELA-IMPLANT CAPSULE BREAST RECONSTRUCTION BREAST / INSERTION BREAST PROSTHESIS GRAFT/TRANSFER FAT CAPSULOTOMY/CAPSULECTOMY BREAST Referral ID Status Reason Start Date Expiration Date Visits Re quested Visits Authorized [id number] 1 1 Encounter Details Date Type Department Care Team (Latest Contact Info) Description 06/08/2023 9:41 AM SENIOR CONTROLLER - 06/08/2023 4:40 PM SENIOR CONTROLLER Hospital Encounter Outpatient Surgery Center at [facility] Out[facility] [address], [facility] [address] [place] [phone] Giacomo Correa MD [address] [place] [phone] Surgery General Discharge Disposition: Home or Self [...] Comments Blood Pressure 113/60 06/08/2023 4:20 PM SENIOR CONTROLLER Pulse 64 06/08/2023 4:20 PM SENIOR CONTROLLER Temperature 36.3 ??C (97.3 ??F) 06/08/2023 2:55 PM CS T Respiratory Rate 10 06/08/2023 4:20 PM SENIOR CONTROLLER Oxygen Saturation 97% 06/08/2023 4:20 PM SENIOR CONTROLLER Inhaled Oxygen Concentration - - Weight 82.8 kg (182 lb 9.6 oz) 06/08/2023 9:55 A M SENIOR CONTROLLER Height 162.6 cm (5' 4 ) 06/08/2023 9:55 AM SENIOR CONTROLLER Body Mass Index 31.34 06/08/2023 9:55 AM SENIOR CONTROLLER documented in this encounter Functional Status Functional [...] noted Giacomo Correa MD 06/08/2023 8:04 AM OR CONTROLLER * Giacomo Correa MD - 06/08/2023 12:00 [...] flap, prosthetic reconstructive methods including the tissue technical expert/implant and the combination procedures such as the LD flap with implant placement. We discussed the benefits and risks of each method as well as additional options such as doing nothing or free/electrotype molder flaps. I also had a long discussion [...] insert signature - Signature Giacomo Correa MD OR CONTROLLER documented in this encounter Nursing Notes * Hui Liang RN - 06/01/2023 11:37 AM CST Pre-Op phone call completed. Patient to arrive at [facility] for surgery on 06/08 1000 Patient instructed no solids/food after midnight (including no gum, candy, or mints). Patient instructed to take a cleansing shower with soap the night before surgery, change the bed linens, and then take another cleansing shower with soap the morning of surgery. OR CONTROLLER documented in this encounter OR Notes * [...] Role: * Giacomo Correa MD - Primary Ip Network Architect(s): Otilia Kirby Anesthesia Type: general ETT Complications: [...] 06/08/2023 1341 Implant(s): None Giacomo Correa MD OR CONTROLLER * Operative - Giacomo Correa MD - 06/08/2023 12:00 PM CST BREAST RECONSTRUCTION [facility] Surgery Operative Note PATIENT NAME: Betina Coy DATE OF :1970 DATE OF OPERATION:06.08.23 SURGEON:Giacomo Correa MD COMMUNITY RELATIONS LIAISON: Otilia Kirby PREOPERATIVE DIAGNOSIS: Breast cancer reconstruction [...] to be dicharged home with follow-up at [facility] tomorrow. MD [facility] OR CONTROLLER documented in this encounter Miscellaneous Notes * Clinical References AVS - Betina Shah RN - 06/08/2023 10:35 AM SENIOR CONTROLLER Images from the original note were not included. [id number] Scopolamine Transdermal System Brands: Transderm Scop Uses [...] about all your medicines. Include prescription and wzzg-uvy-rztgqwwaqhwbkblh, vitamins, and herbal medicines. To relieve dry [...] you have any questions about this medicine. [email or web address] IMPORTANT NOTE: This document tells you briefly how to take your medicine, but it does not tell youall there is to know about it. Your doctor or pharmacist may give you other documents about your medicine. Please talk to them if you have any questions. Always follow their advice. There is a more complete description of this medicine available in [place]i. Scan this code on your smartphone or tablet or use the web address below. You can also ask your pharmacist for a printout. If you have any questions, please ask your pharmacist. The display and use of this drug information is subject to Terms of Use. Copyright(c) 2022 [employer]. ?? The [employer]. All rights reserved. This information is not intended as a substitute for professional medical care. Always follow your healthcare professional's instructions. OR CONTROLLER documented in this encounter Plan of Treatment Upcoming Encounters Date Type Department Care Team (Late st Contact Info) Description 07/19/2024 9:45 AM SENIOR CONTROLLER Office Visit [facility] - REAL ESTATE PROFESSOR [address] [place] [address] Leatha Gupta MD [address] [place] [address] 12/11/2024 9:00 AM CDT Office Visit [facility] - Surgery [address] [place] [address], [address] [address] [place] [id number] [place] [address] 12/11/2024 10:40 AM CDT Office Visit [facility] [address] [place] [address]. [address] [place] [address] Bernardo Lizarraga MD [address] [address] documented as of this encounter Procedures Procedure Name Priority Date/Time Associated Diagnosis Comments CARDIAC RHYTHM STRIP ORDER 06/09/2023 5:11 PM SENIOR CONTROLLER PATHOLOGY TISSUE EXAM (STL) Routine 06/08/2023 1:41 PM SENIOR CONTROLLER Malignant neoplasm of right female breast, unspecified estrogen receptor status, unspecified site of breast (HCC) NH GRFG AUTOL FAT LIPO 50 CC/< 06/08/2023 12:12 PM SENIOR CONTROLLER Malignant neoplasm of right female breast, unspecified estrogen receptor status, unspecified site of breast (HCC) NH INSERTION BREAST IMPLANT SAME DAY OF MASTECTOMY 06/08/2023 12:12 PM SENIOR CONTROLLER Malignant neoplasm of right female breast, unspecified estrogen receptor status, unspecified site of breast (HCC) documented in this encounter Results * CARDIAC RHYTHM STRIP ORDER (06/09/2023 5:11 PM SENIOR CONTROLLER) Narrative 06/09/2023 5:11 PM SENIOR CONTROLLER Ordered by an unspecified provider. Scanned Document CARDIAC SERVICES ORD ERABLES * PATHOLOGY TISSUE EXAM (STL) (06/08/2023 1:41 PM SENIOR CONTROLLER) Case Report Surgical Pathology Report ? Case: [id number] ? Authorizing Provider: ??Giacomo Correa MD ? Collected: ? 06/08/2023 01:41 PM ? Ordering Location: ? [facility] Center ??Received: ?06/09/2023 09:00 AM ? - [facility] Outpatient ? Center ? Pathologist: ? Eber Ordonez MD ? Specimens: ?? A) - Breast Capsule, left breast capsule ? B) - Breast Capsule, right breast capsule ? 06/10/2023 2:42 PM [facility] Final Diagnosis Skin and breast implant capsule, left, excision: Cutaneous scar Fibrotic implant capsule with fat necrosis and foreign body reaction Negative for malignancy Skin and breast implant capsule, right, excision: Cutaneous scar Fibrotic implant capsule with foreign body reaction Negative for malignancy 06/10/2023 2:42 PM [facility] Clinical History PREOPERATIVE DIAGNOSIS: Breast cancer reconstruction revision POSTOPERATIVE DIAGNOSIS: same -status post mastectomies for bilateral breast carcinoma SURGERY PERFORMED: Bilateral Breast Reconstruction Delayed Local tissue rearrangement 06/10/2023 2:42 PM [facility] Gross Description There are 2 formalin [...] tissue with few areas of fat necrosis. Eeler sections are submitted in A1 -2. Specimen [...] tissue and few areas of fat necrosis. Eeler sections are submitted in B1 -3. 06/10/2023 2:42 PM [facility] Microscopic Description Microscopic examination corroborates the diagnosis. 06/10/2023 2:42 PM [facility] Performed By [facility] at [facility], [address] [place] [address]. [id number]. 06/10/2023 2:42 PM [facility] Disclaimer All histochemical and/or immunohistochemical results are interpreted with controls that demonstrate appropriate staining reactions before reporting results. Note on use of immunocytochemistry reagents: This test was developed and its performance characteristic determined by [facility], Department of Laboratory Medicine. It has not [...] be interpreted with caution. 06/10/2023 2:42 PM [facility] Embedded Images 06/10/2023 2:42 PM [facility] Pathology/Cytology CAPSULAR BREAST CONTRACTURE OF BREAST IMPLANT / Unknown 06/08/2023 1:41 PM SENIOR CONTROLLER 06/09/2023 9:00 AM SENIOR CONTROLLER Comment:Pre-op diagnosis: Malignant neoplasm of right female breast, unspecified estrogen receptor status, unspecified site of breast (CMS/HCC) [C50.911] Miscellaneous samples (specimen) CAPSULAR BREAST CONTRACTURE OF BREAST IMPLANT / Unknown 06/08/2023 1:41 PM SENIOR CONTROLLER 06/09/2023 9:00 AM SENIOR CONTROLLER Comment:Pre-op diagnosis: Malignant neoplasm of right female breast, unspecified estrogen receptor status, unspecified site of breast (CMS/HCC) [C50.911] Giacomo Correa MD LAB - PATHOLOGY/CYTO LOGY ORDERABLES [facility] [address] [id number] documented in this encounter Visit Diagnoses Diagnosis [...] Pre-op $ New Bag/Syringe 06/08/2023 12:20 PM SENIOR CONTROLLER 2 g 100 mL/hr famotidine (Pepcid) injection 20 mg 20 mg, Intravenous, PRE-OP ONCE, 1 dose, On Wed06/08/23 at 1045, Dilute with 0.9% NaCl, D5W solution, or SWI to a volume of 5 to 10 mL and administer over at least 2 minutes., Pre-op $ Given 06/08/2023 10:32 AM SENIOR CONTROLLER 20 mg fentaNYL (PF) (Sublimaze) injection 50 [...] MAR., PACU $ Given 06/08/2023 3:49 PM SENIOR CONTROLLER 50 mcg $ Given 06/08/2023 3:41 PM SENIOR CONTROLLER 50 mcg HYDROmorphone (Dilaudid) injection 0.5 mg [...] Pre-op $ New Bag/Syringe 06/08/2023 2:27 PM SENIOR CONTROLLER $ New Bag/Syringe 06/08/2023 10:10 AM SENIOR CONTROLLER 100 m L/hr lactated ringers infusion at [...] 72 hours. $ Applied 06/08/2023 10:32 AM SENIOR CONTROLLER 1 patch Behind Left Ear scopolamine patch placement confirmation Transdermal, 2 TIMES DAILY, First dose on Wed06/08/23 at 1045, Until Discontinued, Patient has a patch to be confirmed on transition to inpatient and 2 times daily., Pre-op documented in this encounter Active and Recently Administered Medications Times are shown in SENIOR CONTROLLER. Scheduled Medication Order 06/06/2023 06/07/2023 06/08/2023 ceFAZolin [...] Pre-op documented in this encounter Care Teams Corporate Fitness Program Coordinator Relationship Specialty Start Date End Date Celina Sifuentes MD [address] [facility] [place] [address] PCP - General Family Medicine 02/16/23 11/14/23 [place] [address] [place] [address] [place] [phone] Surgical Oncologist Surgical Oncology 02/15/23 [place] [address] [phone] Fingernail Former/Oncologist Hematology and Oncology 02/16/23 documented as of this encounter
--- OUTSIDE RECORDS SUMMARY | 2024-07-02 05:01 | XMS_ITS | Encounter Summary ---
Author Organization [facility] Address [address] [place] [address] Care Team Providers Care Fermenting Cellar Dropper Name Role Phone Naya Leonard Irving DO Unavailable [phone] Bernardo Lizarraga MD Unavailable [phone] Celina Sifuentes MD Primary Care Provider [phone] Encounter Details Date Type Department Care Team [...] st Contact Info) Description 07/19/2024 9:45 AM SPECIAL TECHNICAL OPERATIONS OFFICER Office Visit [facility] - ZINC ETCHER [address] [place] [address] Leatha Gupta MD [address] [place] [address] 12/11/2024 9:00 AM CDT Office Visit [facility] - Surgery [address] [place] [address] [place] [address] [facility] [address] [place] [address] 12/11/2024 10:40 AM CDT Office Visit [facility] [address] [facility] [address] [place] [address] [place] [address] [place] [address] documented as of this encounter Visit Diagnoses Not on filedocumented in this encounter Care Teams Fermenting Cellar Dropper Relationship Specialty Start Date End Date Celina Sifuentes MD [address] [place] [address] PCP - General Family Medicine 02/16/23 11/14/23 [place] [address] [address] [place] [address] Surgical Oncologist Surgical Oncology 02/15/23 [place] [address] [address] [place] [address] Homeowner Association Manager/Oncologist Hematology and Oncology 02/16/23 documented as of this encounter
--- OUTSIDE RECORDS SUMMARY | 2024-07-02 05:01 | XMS_ITS | Encounter Summary ---
Author Organization [facility] Address [address] [place] [address] Care Team Providers Care Systems Protection Technician Name Role Phone Naya Leonard Irving DO Unavailable [phone] Bernardo Lizarraga MD Unavailable [phone] Celina Sifuentes MD Primary Care Provider [phone] Encounter Details Date Type Department Care Team [...] st Contact Info) Description 07/19/2024 9:45 AM BAND SAW OPERATOR CAKE CUTTING Office Visit [facility] - ROVING CARRIER [address] [place] [address] Leatha Gupta MD [address] [place] [address] 12/11/2024 9:00 AM CDT Office Visit [facility] - Surgery [address] [facility] [place] [address] [place] [address] [facility] [address] [place] [address] 12/11/2024 10:40 AM CDT Office Visit [facility] [address] [facility] [address] [place] [address] [place] [address] [place] [address] documented as of this encounter Visit Diagnoses Not on filedocumented in this encounter Care Teams Systems Protection Technician Relationship Specialty Start Date End Date Celina Sifuentes MD [address] [place] [address] PCP - General Family Medicine 02/16/23 11/14/23 [place] [address] [address] [place] [address] Surgical Oncologist Surgical Oncology 02/15/23 [place] [address] [address] [place] [address] Automobile Washer Steam/Oncologist Hematology and Oncology 02/16/23 documented as of this encounter
--- OUTSIDE RECORDS SUMMARY | 2024-07-02 05:01 | XMS_ITS | Encounter Summary ---
Author Organization [facility] Address [address] [address] Care Team Providers Care Inspector Exhaust Emissions Name Role Phone HoracioNaya Irving DO Unavailable [phone] Bernardo Lizarraga MD Unavailable [phone] Keisha Pineda Primary Care Pr ovider Reason for Visit * Reason Comments Follow-up Encounter Details Date Type Department Care Team (Late st Contact Info) Description 11/15/2023 9:40 AM CDT Office Visit [facility] [address] [place] [address] [place] [address] [address] Invasive ductal carcinoma of right [...] Lizarraga MD - 11/15/2023 9:40 AM CDT [facility] Clinic Follow Up Assessment: 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 Grade 1, Ki-67 3%. Bilateral [...] Bernardo Lizarraga MD - Hematology/Oncology Available on Scanadu chat during the week Cell# (providers only): [phone] Oncology History: 02/2023 - Diagnosed right breast IDC - ER/MT+, Her2- (1+) - Grade 1, Ki-67 3% 02/2023 - Bilateral mastectomy (Horacio) - [id number] Stage IA - 1.5cm, 0/1 nodes positive. [...] Lizarraga MD - Hematology/Oncology Cell# (providers only) [phone] documented in this encounter Plan of Treatment Upcoming Encounters Date Type Department Care Team (Late st Contact Info) Description 07/19/2024 9:45 AM EDGE RUNNER Office Visit [facility] - PELLET PRESS OPERATOR [address] [place] [address] Leatha Gupta MD [address] [place] [address] 12/11/2024 9:00 AM CDT Office Visit [facility] - Surgery [address] [facility] [place] [address] [place] [address] [facility] [address] [place] [address] 12/11/2024 10:40 AM CDT Office Visit [facility] [address] [place], [place] [address] [address] [place] [address] [address] documented as of this encounter Visit Diagnoses Diagnosis Invasive ductal carcinoma of right breast (HCC)- Primary Hot flashes Symptomatic menopausal or female climacteric states Family history of cancer Family history of unspecified malignant neoplasm Benign cyst of breast, unspecified laterality Premenopausal patient Symptomatic menopausal or female climacteric states documented in this encounter Care Teams Inspector Exhaust Emissions Relationship Specialty Start Date End Date Keisha Pineda PA [address] [place] [address] PCP - General Physician Attorney Law Clerk 11/15/23 [place] [address] [place] [address] Surgical Oncologist Surgical Oncology 02/15/23 [place] [address] [place] [address] Assistant Chief Nursing Officer/Oncologist Hematology and Oncology 02/16/23 documented as of this encounter
--- OUTSIDE RECORDS SUMMARY | 2024-07-02 05:01 | XMS_ITS | Encounter Summary ---
Author Organization [facility] Address [address] [facility] [place] [address] Care Team Providers Care Ships Or Barges Loader Name Role Phone HoracioNaya Irving DO Unavailable [phone] Bernardo Lizarraga MD Unavailable [phone] Celina Sifuentes MD Primary Care Provider [phone] Reason for Visit * Reason Comments Follow-up Clara and braulio on chest well Encounter Details Date Type Department Care Team (Late st Contact Info) Description 09/29/2023 9:40 AM CDT Office Visit [facility] Medical Group - Surgery [address] [place] [address], [address] [address] Ernesto Melendez MD [address] [place] [address] Invasive ductal carcinoma of right breast [...] STEREOTACTIC RIGHT BIOPSY 01/06/2023 [facility] ??? MASTECTOMY, SIMPLE Bilateral 02/18/2023 Bilateral; RIGHT SIMPLE MASTECTOMY, RIGHT SENTINEL LYMPH NODE BX, LEFT PROPHYLACTIC MASTECTOMY ??? NEEDLE BIOPSY Right right breast 2 cyst aspirations ??? OTHER SURGERY breast cyst aspiration ??? PLASTIC SURGERY PROCEDURE N/A 06/08/2023 N/A; FAT GRAFTING FROM ADBOMEN AND LOCAL TISSUE REARRANGEMENT ??? US BREAST RIGHT BIOPSY Right 01/06/2023 US BREAST RIGHT BIOPSY 01/06/2023 [facility] US No Known Allergies Current [...] st Contact Info) Description 07/19/2024 9:45 AM QUANTITATIVE SOFTWARE ENGINEER Office Visit [facility] - LEARNING CENTER COORDINATOR [address] [place] [address] Leatha Gupta MD [address] [place] [address] 12/11/2024 9:00 AM CDT Office Visit [facility] - Surgery [address] [place] [address], [address] [place] [address] [place] [address] [place] [address] 12/11/2024 10:40 AM CDT Office Visit [facility] Care [address] [place] [phone] Bernardo Lizarraga MD [address] [place] [phone] documented as of this encounter Visit Diagnoses Diagnosis Invasive ductal carcinoma of right breast (HCC)- Primary documented in this encounter Care Teams Ships Or Barges Loader Relationship Specialty Start Date End Date Celina Sifuentes MD [address] [place] [address] PCP - General Family Medicine 02/16/23 11/14/23 [place] [address] [place] [phone] Surgical Oncologist Surgical Oncology 02/15/23 [place] [address] [address] [facility] [address] [place] [phone] Licensed Customs Broker/Oncologist Hematology and Oncology 02/16/23 documented as of this encounter
--- OUTSIDE RECORDS SUMMARY | 2024-07-02 05:01 | XMS_ITS | Encounter Summary ---
Author Organization [facility] Address [address] [place] [address] Care Team Providers Care Electronic Tech Name Role Phone HoracioVioletajnaki Villatoro DO Unavailable [phone] Bernardo Lizarraga MD Unavailable [phone] Celina Sifuentes MD Primary Care Provider [phone] Reason for Referral * Radiology Services (Routine) - Pending Review Specialty Diagnoses / Procedures Referred By Contlulu t Referred To Contact Ultrasound Diagnoses PMB (postmenopausal bleeding) Procedures US PELVIS W TRANSVAG NON OB Leatha Gupta MD [address] [place] [address] [facility] [address] [address] Referral ID Status Reason Start Date Expiration Date V isits Requested Visits Authorized [id number] Pending Review 09/13/2023 09/12/2024 1 1 MER Reason for Visit * Reason Onset Date Comments Concerns 09/13/2023 Encounter Details Date Type Department Care Team (Late st Contact Info) Description 09/13/2023 Telephone [facility] Medical [facility] - SUPERVISOR PULLET FARM [address] [place] [address] Leatha Gupta MD [address] [facility] [address] Concerns Social History Tobacco Use Types Packs/Day [...] given contact info to call and schedule. MER * Telephone Encounter - Issa Martinez MA - 09/13/2023 9:22 AM CST Pt was blind transferred to the office from the call center. Pt calling with concerns of Abnormal bleeding. Pt is on Tamoxifen for hx of double mastectomy and breast cx Wanting to know if she needs to come in or is this normal. Please advise. MER documented in this encounter Plan of Treatment Upcoming Encounters Date Type Department Care Team (Late st Contact Info) Description 07/19/2024 9:45 AM SWIMMER Office Visit [facility] - SUPERVISOR PULLET FARM [address] [place] [address] Leatha Gupta MD [address] [facility] [address] 12/11/2024 9:00 AM CDT Office Visit [facility] - Surgery [address] [facility], [address] [place] [address] [place] [address] [facility] [address] [place] [address] 12/11/2024 10:40 AM CDT Office Visit [facility] [address] [place] [address] [address] [place] [address] [place]ardo [place] [id number] [place] [address] [address] [place] [address] documented as of this encounter Results * US PELVIS W TRANSVAG NON OB (09/14/2023 9:25 AM SWIMMER) Anatomical Region Laterality Modality Pelvis Ultrasound 09/14/2023 9:31 AM SWIMMER Impressions 09/14/2023 9:34 AM SWIMMER IMPRESSION: 1. Small uterine leiomyomas with the larger measuring 2.5 cm diameter. 2. 4.1 cm simple appearing right ovarian cyst. 3. Nonvisualization of the left ovary. > Interpreting Provider: Isabell Dillard MD on 09/14/2023 9:34 AM Narrative 09/14/2023 9:34 AM SWIMMER PROCEDURE: ??US PELVIS W TRANSVAG NON OB DATE/TIME OF EXAM: ??09/14/2023 9:25 AM CLINICAL INFORMATION: None relevant/not provided if blank. Indication: N95.0: Postmenopausal bleeding Additional History: Patient on tamoxifen COMPARISON: October 13, 2021 TECHNIQUE: Real time transabdominal and transvaginal pelvic ultrasound was performed by the bird raiser with DICOM image capture. Grayscale images were [...] and transvaginal pelvic ultrasound wasperformed by the bird raiser with DICOM image capture. Grayscale images were [...] bleeding documented in this encounter Care Teams Electronic Tech Relationship Specialty Start Date End Date Celina Sifuentes MD [address] [place] [address] PCP - General Family Medicine 02/16/23 11/14/23 [place] [address] [place] [phone] Surgical Oncologist Surgical Oncology 02/15/23 [place] [address] [phone] Security Manager/Oncologist Hematology and Oncology 02/16/23 documented as of this encounter
--- OUTSIDE RECORDS SUMMARY | 2024-07-02 05:01 | XMS_ITS | Encounter Summary ---
Author Organization [facility] Address [address] [place] [address] Care Team Providers Care Branch Credit Counselor Name Role Phone Naya Leonard DO Unavailable [phone] Bernardo Lizarraga MD Unavailable [phone] Keisha Pineda Primary Care Pr ovider Reason for Visit * Reason Onset Date Comments Med Question 06/05/2024 Encounter Details Date Type Department Care Team (Late st Contact Info) Description 06/05/2024 Telephone [facility] Medical Group - Surgery [address] [place] [address] [place] [address] [address] Med Question Social History Tobacco [...] Coretta Mercado LPN - 06/05/2024 12:29 PM FINANCIAL ACCOUNTING ANALYST Returned call to pt and made her an appt with Dr. Leonard NCIAL ACCOUNTING ANALYST * Telephone Encounter - Maria Teresa Guzman - 06/05/2024 9:06 AM CST Pt called back said she left a message on Wednesday and that her records from [facility] were going to be reviewed. She updated her condition she was seen in [facility] at [facility] over the weekend so would like those records looked at also patient said she was very sick. [phone] NCIAL ACCOUNTING ANALYST documented in this encounter Plan of Treatment Upcoming Encounters Date Type Department Care Team (Late st Contact Info) Description 07/19/2024 9:45 AM FINANCIAL ACCOUNTING ANALYST Office Visit [facility] - MARINE ENGINEERING TEACHER [address] [place] [address] Leatha Gupta MD [address] [place] [address] 12/11/2024 9:00 AM CDT Office Visit [facility] - Surgery [address] [place] [address], [address] [place] [address] [place] [address] [facility] [address] [place] [address] 12/11/2024 10:40 AM CDT Office Visit [facility] Cancer Care [address] [facility] [address] [place] [address] [place] [address] [facility] [address] [place] [address] documented as of this encounter Visit Diagnoses Not on filedocumented in this encounter Care Teams Branch Credit Counselor Relationship Specialty Start Date End Date Keisha Pineda PA [address] [place] [address] PCP - General Physician Production Intern 11/15/23 [place] [address] [place] [address] Surgical Oncologist Surgical Oncology 02/15/23 [place] [address] [facility] [address] [place] [phone] Shuttle Fitting Supervisor/Oncologist Hematology and Oncology 02/16/23 documented as of this encounter
--- OUTSIDE RECORDS SUMMARY | 2024-07-02 05:01 | XMS_ITS | Encounter Summary ---
Author Organization [facility] Address [address] [facility] [place] [address] Care Team Providers Care Substance Abuse Nurse Name Role Phone Naya Leonard DO Unavailable [phone] Bernardo Lizarraga MD Unavailable [phone] Keisha Pineda Primary Care Pr ovider Reason for Visit * Reason Comments Post-Op EXC chest wall mass Encounter Details Date Type Department Care Team (Late st Contact Info) Description 12/07/2023 2:00 PM CDT Office Visit [facility] - Surgery [address] [place] [address] Naya Leonard DO [address] [place] [address] Postop check (Primary Dx) Social History [...] this encounter Progress Notes * Jillian Fuentes, FITTER AND TURNER-POSTAL MAIL CARRIER - 12/07/2023 2:00 PM CDT Betina Coy is a 53 year old [...] st Contact Info) Description 07/19/2024 9:45 AM PRIMARY CARE SALES REPRESENTATIVE Office Visit [facility] - DIRECTOR OF FRONT OFFICE [address] [place] [address] Leatha Gupta MD [address] [place] [address] 12/11/2024 9:00 AM CDT Office Visit [facility] - Surgery [address] [facility], [address] [place] [address] [place] [address] [address] 12/11/2024 10:40 AM CDT Office Visit [facility] Cancer Care [address] [place] [address] [address] [place] [address] Bernardo Lizarraga MD [address] [place] [address] [address] [place] [address] documented as of this encounter Visit Diagnoses Diagnosis Postop check- Primary Follow-up examination, following unspecified surgery documented in this encounter Care Teams Substance Abuse Nurse Relationship Specialty Start Date End Date Keisha Pineda PA [address] [place] [phone] PCP - General Physician Sap Pp Consultant 11/15/23 [place] [address] [address] Surgical Oncologist Surgical Oncology 02/15/23 [place] [address] [place] [address] Sales Director/Oncologist Hematology and Oncology 02/16/23 documented as of this encounter
--- OUTSIDE RECORDS SUMMARY | 2024-07-02 05:01 | XMS_ITS | Encounter Summary ---
Author Organization [facility] Address [address] [facility] [place] [address] Care Team Providers Care Director Of Analytical Development Name Role Phone Naya Leonard DO Unavailable [phone] Bernardo Lizarraga MD Unavailable [phone] Celina Sifuentes MD Primary Care Provider [phone] Reason for Referral * Procedure (Routine) - Closed Specialty Diagnoses / Procedures Referred By Contac t Referred To Contact Gastroenterology Diagnoses Special screening for malignant neoplasms, colon Procedures ENDOSCOPY, COLON, [place] [address] [address] Referral ID Status Reason Start Date Expiration Date Visits Re quested Visits Authorized [id number] Closed 04/02/2023 04/01/2024 1 1 Reason for Visit * Auth/Cert (Routine) Specialty Diagnoses / Procedures Referred By Contac t Referred To Contact Procedures IA COLOREC CANC SCRN,SCR COLONOSCOPY+BE COLONOSCOPY SCREEN Referral ID Status Reason Start Date Expiration Date Visits Re quested Visits Authorized [id number] 1 1 Encounter Details Date Type Department Care Team (Latest Contact Info) Description 09/27/2023 8:58 AM CDT - 09/27/2023 11:14 AM CDT Hospital Encounter [facility] - Endoscopy Services [address] [place] [address] [place] [address] [facility] [address] [place] [address] Surgery General Discharge Disposition: Home or [...] STEREOTACTIC RIGHT BIOPSY 01/06/2023 [facility] ??? MASTECTOMY, SIMPLE Bilateral 02/18/2023 [...] Gastroenterology Interventional Endoscopy Director, Gastroenterology & Endoscopy [facility] Office: [phone] documented in this encounter Procedure Notes * Adama Holliday MD - 09/27/2023 10:48 AM CDTAssociated Order(s): ENDOSCOPY, COLON, SCREENING Colonoscopy done for screening. Normal colon other than diverticulosis. Repeat in 10 years for screening. documented in this encounter Plan of Treatment Upcoming Encounters Date Type Department Care Team (Late st Contact Info) Description 07/19/2024 9:45 AM SAILING INSTRUCTOR Office Visit [facility] - EMERY WHEEL WORKER [address] [address] Leatha Gupta MD [address] [place] [place] [address] 12/11/2024 9:00 AM CDT Office Visit [facility] Group - Surgery [address] [facility], [address] [place] [address] [place] [address] [facility] [address] [place] [address] 12/11/2024 10:40 AM CDT Office Visit [facility] Cancer Care [address] [facility] [address] [place] [address] [place] [address] [place] [address] documented as of this encounter Procedures Procedure Name Priority Date/Time Associated Diagnosis Comments IA COLOREC CANC SCRN,SCR COLONOSCOPY+BE 09/27/2023 10:15 AM [...] Gender: Female Attending MD: Adama Holliday MD, [id number] _ Procedure: ? Colonoscopy Indications: ? Screening [...] ? preparation was evaluated using the BBPS ([place] Bowel ? Preparation Scale) with scores of: [...] Procedure Code(s): ? --- Professional --- ? 77658, Colonoscopy, flexible; diagnostic, including collection of ? specimen(s) by brushing or washing, when performed (separate procedure) ? --- Technical --- ? 01487, Colonoscopy, flexible; diagnostic, including collection of ? [...] abscess ? without bleeding CPT copyright 2020 [employer]. All rights reserved. The codes documented in this report are preliminary and upon laundry operator review may be revised to meet current compliance requirements. __ Adama Holliday MD 09/27/2023 10:47:51 AM Number of Addenda: 0 Note Initiated On: 09/27/2023 9:15 AM [facility] ENDOSCOPY 09/27/2023 9:15 AM CDT Narrative Procedure Note Adama Holliday MD - 09/27/2023 10:48 AM CDT Colonoscopy done for screening. Normal colon other than diverticulosis.Repeat in 10 years for screening. Ricky Fuentes MD GI PROCEDURE ORDERA AMBER Performing Organization Address City/State/[facility] Co de Phone Number [facility] [place] [address] documented in this encounter Visit Diagnoses Diagnosis [...] RN) documented in this encounter Care Teams Director Of Analytical Development Relationship Specialty Start Date End Date Celina Sifuentes MD [address] [place] [address] PCP - General Family Medicine 02/16/23 11/14/23 [place] [address] [address] [place] [phone] Surgical Oncologist Surgical Oncology 02/15/23 [place] [address] [address] [place] [phone] Caustic Operator/Oncologist Hematology and Oncology 02/16/23 documented as of this encounter
--- OUTSIDE RECORDS SUMMARY | 2024-07-02 05:01 | XMS_ITS | Encounter Summary ---
Author Organization [facility] Address [address] [facility] [place] [address] Care Team Providers Care Fiscal Economist Name Role Phone Naya Leonard DO Unavailable [phone] Bernardo Lizarraga MD Unavailable [phone] Keisha Pineda Primary Care Pr ovider Reason for Visit * Auth/Cert (Routine) Specialty Diagnoses / Procedures Referred By Sherie jacobo Referred To Contact Diagnoses Mass in chest Mass in chest [R22.2] Procedures NV EXC SKIN BENIG 3.1-4CM TRUNK,ARM,LEG EXCISION LESION TRUNK CHEST/AXILLA Referral ID Status Reason Start Date Expiration Date Visits Re quested Visits Authorized [id number] 1 1 Encounter Details Date Type Department Care Team (Latest Contact Info) Description 11/30/2023 9:09 AM CDT - 11/30/2023 11:59 PM T Hospital Encounter [facility] - General Surgery [address] [place] [address] 10 [place] [address] [place] [address] [facility] [address] [place] [address] Surgery General Discharge Disposition: Home [...] Refills Start Date End Date HYDROcodone-acetamino phen (Cache) 5-325 MG tabletIndications:Inv asive ductal carcinoma of [...] o'clock position revealed an infiltrating ductal carcinoma ER/NV positive, HER2/brittany negative with low KI 67. The calcifications revealedDCIS, ER/NV positive. Patient underwent breast MRI which showed [...] STEREOTACTIC RIGHT BIOPSY 01/06/2023 [facility] MASTECTOMY, SIMPLE Bilateral 02/18/2023 Bilateral; RIGHT [...] BOTH breasts was performed by a trained manager of training and development and by Dr. Maddi Landeros. BREAST PARENCHYMAL [...] be scheduled to return to the Breast [facility] for biopsy . 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 The calcifications revealedDCIS, ER/NV positive. Patient underwent breast MRI which showed [...] BOTH breasts was performed by a trained manager of training and development and by Dr. Maddi Landeros. BREAST PARENCHYMAL [...] be scheduled to return to the Breast [facility] for biopsy . 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 A Left [...] st Contact Info) Description 07/19/2024 9:45 AM LAPEL PADDER Office Visit [facility] - PATIENT CARE NURSING ASSISTANT [address] [place] [phone] Leatha Gupta MD [address] [place] [address] 12/11/2024 9:00 AM CDT Office Visit [facility] - Surgery [address] [place] [address], [address] [place] [address] [place] [address] [facility] [address] [facility] [address] 12/11/2024 10:40 AM CDT Office Visit [facility] Cancer Care [address] [place] [address] [place] [address] [facility] [address] [place] [address] documented as of this encounter Procedures Procedure Name Priority Date/Time Associated Diagnosis Comments PATHOLOGY TISSUE EXAM (STL) Routine 11/30/2023 11:34 AM CDT Mass in chest NV EXC SKIN BENIG 3.1-4CM TRUNK,ARM,LEG 11/30/2023 10:50 AM CDT Mass in chest HCG URINE QUAL POCT NOTIFICATION Routine 11/30/2023 10:30 AM CDT Preop examination HCG URINE QUALITATIVE - POCT (IP) INTERFACED Routine 11/30/2023 9:32 AM CDT documented in this encounter Results * PATHOLOGY TISSUE EXAM (STL) (11/30/2023 11:34 AM CDT) Case Report Surgical Pathology Report ? Case: [id number] ? Authorizing Provider: ??Naya Leonard DO ? Collected: ? 11/30/2023 11:34 AM ? Ordering Location: ? [facility] - Received: ?11/30/2023 01:51 PM ? General Surgery ? Pathologist: ? Sarah Blount MD ? Specimen: ?Chest Mass, chest wall mass ? 12/02/2023 8:47 AM T [facility] Final Diagnosis Left chest wall mass, excision: -- Adipose connective tissue with fat necrosis and foreign body reaction 12/02/2023 8:47 AM [facility] Gross Description Received in formalin in a single container, labeled Betina Coy, left chest wall mass, are two fragments of a disrupted fibromembranous tissue fragment, measuring 2.5 x 2.2 x 1.2 cm in aggregate. Sections show a gritty yellow-hurtado adipose tissue. Document Control Clerk sections are submitted in cassette A1. CH/tc 12/02/2023 8:47 AM T [facility] Microscopic Description Microscopic examination substantiates the above cited diagnosis. 12/02/2023 8:47 AM [facility] Disclaimer All histochemical and/or immunohistochemical results are interpreted with controls that demonstrate appropriate staining reactions before reporting results. Note on use of immunocytochemistry reagents: This test was developed and its performance characteristic determined by [facility], Department of Laboratory Medicine. It has [...] interpreted with caution. 12/02/2023 8:47 AM CDT [facility] Embedded Images 12/02/2023 8:47 AM CDT [facility] Pathology/Cytolo gy MASS OF CHEST WALL / Unknown 11/30/2023 11:34 AM CDT 11/30/2023 1:51 PM CDT Comment:Pre-op diagnosis: Mass in chest [R22.2] Naya Leonard DO LAB - PATHOLOGY/CYTO LOGY ORDERABLES Performing Organization Address [facility] Co de Phone Number [facility] [address] [place] [address] * HCG URINE QUAL POCT NOTIFICATION (11/30/2023 10:30 AM CDT) Comment Notification Label Only - See Separate Report 11/30/2023 10:30 AM CDT [facility] Urine URINE / Unknown 9:29 AM CDT Ricarda Zarate DO LAB - URINALYSIS ORD ERABLES Performing Organization Address [facility] de Phone Number [facility] [address] [place] [address] * HCG URINE QUALITATIVE - POCT (IP) INTERFACED (11/30/2023 9:32 AM CDT) HCG Qual Urine Negative Negative 11/30/2023 9:38 AM CDT [facility] Urine URINE / Unknown 11/30/2023 9 :32 AM CDT 11/30/2023 9:38 AM CDT Naya Leonard DO LAB - POINT OF CARE ORDERABLES Performing Organization Address [facility] Co de Phone Number [facility] [address] [place] [address] documented in this encounter Visit Diagnoses [...] mL documented in this encounter Care Teams Fiscal Economist Relationship Specialty Start Date End Date Keisha Pineda PA [address] [place] [phone] PCP - General Physician Territory Sales Executive 11/15/23 [place] [address] [address] [facility] [address] [place] [address] Surgical Oncologist Surgical Oncology 02/15/23 [place] [address] [facility] [address] [place] [address] Cartography/Mapping Technician/Oncologist Hematology and Oncology 02/16/23 documented as of this encounter
--- OUTSIDE RECORDS SUMMARY | 2024-07-02 05:01 | XMS_ITS | Encounter Summary ---
Author Organization [facility] Address [address] [place] [address] Care Team Providers Care Fly Worker Name Role Phone Naya [place] Irving DO Unavailable [phone] Bernardo Lizarraga MD Unavailable [phone] Keisha Pineda Primary Care Pr ovider Reason for Visit * Reason Comments Pain Abdominal Pt arrives to the ED for c/o abdominal pain and vomiting. Pt states that she was discharges from [facility] on Wednesday for diverticulitis and the pain and symptoms are becoming worse. Encounter Details Date Type Department Care Team (Late st Contact Info) Description 06/04/2024 11:36 AM DORR OPERATOR - 06/04/2024 4:23 PM DORR OPERATOR Emergency ER at [address] [address] Terra Wagner MD [address] [place] [address] REJI DC [id number] Lower abdominal pain (Primary Dx); Diverticulitis of [...] Comments Blood Pressure 124/82 06/04/2024 1:44 PM DORR OPERATOR Pulse 63 06/04/2024 4:05 PM DORR OPERATOR Temperature 36.6 ??C (97.9 ??F) 06/04/2024 1:[address] Respiratory Rate 12 06/04/2024 4:05 PM DORR OPERATOR Oxygen Saturation 95% 06/04/2024 1:44 PM DORR OPERATOR Inhaled Oxygen Concentration - - Weight - [...] Terra Wagner MD - 06/04/2024 4:03 PM DORR OPERATOR You were seen in the ER for abdominal pain. Continue taking your Augmentin. Follow up with your general surgeon. Return to the ER if you have any new or worrisome symptoms. OPERATOR documented in this encounter Medications at Time [...] with belongings. No signs of distress noted. OPERATOR * Terra Wagner MD - 06/04/2024 3:40 PM CST I reviewed: Pain Abdominal (Pt arrives to the ED for c/o abdominal pain and vomiting. Pt states that she was discharges from [facility] on Wednesday for diverticulitis and the pain and symptoms are becoming worse. ) History: Betina Coy is a 53 year old female with past medical history of breast cancer and diverticulosis presenting to the ED with abdominal pain after she was recently discharged from [facility] after being treated with IV antibiotics for [...] contrast Intravenous Contrast - Once Carey Lemus APRN-FILTER TANK TENDER HELPER 80 mL at 06/04/24 1408 Current Outpatient [...] [address] [facility] [address] [place] [address] [place] [address] Please follow up with your general surgeon as discussed This note was created using Dictation software, Due to voice recognition software, sound alike and misspelled words may be contained in the documentation. OPERATOR * Carey Lemus APRN-CNP - 06/04/2024 2:43 PM CST Bed: 5 Expected date: Expected time: Means of arrival: Comments: Anneliese OPERATOR * Carey Lemus APRN-CNP - 06/04/2024 12:52 PM CST RME Note CC: Pain Abdominal (Pt arrives to the ED for c/o abdominal pain and vomiting. Pt states that she was discharges from [facility] on Wednesday for diverticulitis and the pain and symptoms are becoming worse. ) Provider in Triage HPI: Betina Coy is a 53 year old female Past Medical History: Diagnosis Date Breast CA (HCC) Right COVID 06/2021 Elevated cholesterol Hypothyroid PCOS (polycystic ovarian syndrome) who presents with recent discharge from [facility] on Wednesday and is currently on Augmentin. Was admitted to the hospital for diverticulitis with abscess but abscess was not drained. They did IV antibiotics and hope was no drainage needed. States she is progressively worsened since getting out hospital with pain and sickness. Her surgeon is at [facility] and did request medical records from [place] but so far has not received them. [...] with other providers. Plan: Labs, imaging, meds OPERATOR documented in this encounter Miscellaneous Notes * Clinical References AVS - Terra Wagner MD - 06/04/2024 4:03 PM DORR OPERATOR Images from the original note were not included. 00903 Understanding Diverticulosis and Diverticulitis The colon (large [...] needed, you may be told to take [id number] stool softeners. ?? To help ease pain, [...] or if the diverticula have burst (ruptured). Clarissa to colon health Help keep your colon healthy with these lifestyle tips: ?? Eat a healthy diet. Include plenty of high-fiber fruits, vegetables, and whole grains. ?? Drink plenty of liquids such as water and juice. ?? Keep a healthy lifestyle. Do regular exercise, manage your stress, and get enough rest and sleep. Last Reviewed Date: 2023 00:00:00 ?? [id number] [employer]. All rights reserved. This information is not intended as a substitute for professional medical care. Always follow your healthcare professional's instructions. OPERATOR * Clinical References AVS - Terra Wagner MD - 06/04/2024 4:03 PM DORR OPERATOR Images from the original note were not included. 85392 What Are Gallstones? The gallbladder stores bile, [...] ?? Have a family background that includes [place] Americans or [place] Americans Diagnosis Ultrasound is often used to [...] health. Last Reviewed Date: 2023 00:00:00 ?? [id number] [employer]. All rights reserved. This information is not intended as a substitute for professional medical care. Always follow your healthcare professional's instructions. OPERATOR documented in this encounter Plan of Treatment Upcoming Encounters Date Type Department Care Team (Late st Contact Info) Description 07/19/2024 9:45 AM DORR OPERATOR Office Visit [facility] - STOVE REFINISHER [address] [place] [address] Leatha Gupta MD [address] [place] [address] 12/11/2024 9:00 AM CDT Office Visit [facility] - Surgery [address] [facility], [address] [place] [address] [place] [address] [address] [place] [address] 12/11/2024 10:40 AM CDT Office Visit [facility] [address] [place] [address] [address] [place] [address] [place] [address] [place] [address] documented as of this encounter Procedures Procedure Name Priority Date/Time Associated Diagnosis Comments CT ABDOMEN PELVIS W CONTRAST STAT 06/04/2024 2:14 PM DORR OPERATOR Lower abdominal pain LACTIC ACID BLOOD REFLEX TO REPEAT STAT 06/04/2024 1:20 PM DORR OPERATOR CBC W AUTO DIFFERENTIAL STAT 06/04/2024 1:20 PM DORR OPERATOR COMPREHENSIVE METABOLIC PANEL STAT 06/04/2024 1:20 PM DORR OPERATOR HCG BLOOD QUALITATIVE STAT 06/04/2024 1:20 PM DORR OPERATOR documented in this encounter Results * CT ABDOMEN PELVIS W CONTRAST (06/04/2024 2:14 PM DORR OPERATOR) Anatomical Region Laterality Modality Abdomen, Pelvis Computed Tomogra phy 06/04/2024 2:52 PM DORR OPERATOR Impressions 06/04/2024 2:55 PM DORR OPERATOR IMPRESSION: 1.Bilateral ovarian follicle/cysts, the largest is [...] 06/04/2024 2:55 PM Narrative 06/04/2024 2:55 PM DORR OPERATOR PROCEDURE(s): CT ABDOMEN PELVIS W CONTRAST DATE [...] * HCG BLOOD QUALITATIVE (06/04/2024 1:20 PM DORR OPERATOR) [facility] HCG Qual Serum Negative Negative 06/04/2024 1:39 PM DORR OPERATOR [facility] Blood BLOOD SPECIMEN / Unknown Venipuncture / Unknown 06/04/2024 1:20 PM DORR OPERATOR 06/04/2024 1:28 PM DORR OPERATOR Narrative [facility] - 06/04/2024 1:39 PM DORR OPERATOR Specimens containing human anti-mouse antibodies may exhibit false positive or false negative results. If qualitative interpretation is inconsistent with clinical evaluation, consider confirmation by an alternative hCG method. Terra Wagner MD LAB - CHEMISTRY CHANEL FELIX Performing Organization Address [facility] Co de Phone Number [facility] [id number] [place] [address] * LACTIC ACID BLOOD REFLEX TO REPEAT (06/04/2024 1:20 PM DORR OPERATOR) [facility] Lactic Acid 0.9 <=2.0 mmol/L 06/04/2024 1:44 PM DORR OPERATOR [facility] Blood BLOOD SPECIMEN / Unknown Venipuncture / Unknown 06/04/2024 1:20 PM DORR OPERATOR 06/04/2024 1:28 PM DORR OPERATOR Terra Wagner MD LAB - CHEMISTRY CHANEL FELIX Performing Organization Address [facility] Co de Phone Number [facility] [address] [place] [address] * CBC W AUTO DIFFERENTIAL (06/04/2024 1:20 PM DORR OPERATOR) [facility] WBC 8.6 4.0 - 10.7 x10E9/L 06/04/2024 1:31 PM DORR OPERATOR [facility] RBC Count 4.99 3.90 - 5.20 x10E12/L 06/04/2024 1:31 PM DORR OPERATOR [facility] Hemoglobin 14.6 11.9 - 15.8 g/dL 06/04/2024 1:31 PM DORR OPERATOR [facility] Hematocrit 43.9 34.8 - 46.1 % 06/04/2024 1:31 PM [facility] MCV 88.0 80.0 - 98.0 fL 06/04/2024 1:31 PM [facility] MCH 29.3 26.7 - 33.6 pg 06/04/2024 1:31 PM [facility] MCHC 33.3 31.7 - 36.3 g/dL 06/04/2024 1:31 PM [facility] RDW-CV 12.2 11.3 - 14.8 % 06/04/2024 1:31 PM [facility] Platelet Count 408 150 - 420 x10E9/L 06/04/2024 1:31 PM [facility] MPV 9.1 7.8 - 11.4 fL 06/04/2024 1:31 PM [facility] Neutrophil % 70.9 41.0 - 74.0 % 06/04/2024 1:31 PM [facility] Lymphocyte % 19.9 17.0 - 47.0 % 06/04/2024 1:31 PM [facility] Monocyte % 5.8 3.0 - 11.0 % 06/04/2024 1:31 PM [facility] Eosinophil % 2.3 0.0 - 7.0 % 06/04/2024 1:31 PM [facility] Basophil % 0.9 0.0 - 1.6 % 06/04/2024 1:31 PM [facility] Immature Granulocytes % 0.2 0.0 - 1.0 % 06/04/2024 1:31 PM [facility] Neutrophil Absolute 6.12 1.60 - 7.50 x10E9/L 06/04/2024 1:31 PM [facility] Lymphocyte Absolute 1.72 1.00 - 4.40 x10E9/L 06/04/2024 1:31 PM [facility] Monocyte Absolute 0.50 0.15 - 1.00 x10E9/L 06/04/2024 1:31 PM [facility] Eosinophil Absolute 0.20 0.00 - 0.60 x10E9/L 06/04/2024 1:31 PM [facility] Basophil Absolute 0.08 0.00 - 0.13 x10E9/L 06/04/2024 1:31 PM [facility] Blood BLOOD SPECIMEN / Unknown Venipuncture / Unknown 06/04/2024 1:20 PM DORR OPERATOR 06/04/2024 1:28 PM DORR OPERATOR Terra Wagner MD LAB - HEMATOLOGY ORD ERABLES [facility] [address] [place] [address] * (ABNORMAL) COMPREHENSIVE METABOLIC PANEL (06/04/2024 1:20 PM DORR OPERATOR) Glucose 89 70 - 99 mg/dL 06/04/2024 1:44 PM [facility] Sodium 145 136 - 145 mmol/L 06/04/2024 1:44 PM [facility] Potassium 4.0 3.5 - 5.1 mmol/L 06/04/2024 1:44 PM [facility] Chloride 108(H) 98 - 107 mmol/L 06/04/2024 1:44 PM [facility] CO2 24 22 - 29 mmol/L 06/04/2024 1:44 PM [facility] Calcium 10.4 8.4 - 10.4 mg/dL 06/04/2024 1:44 PM [facility] Anion Gap 13 6 - 16 mmol/L 06/04/2024 1:44 PM [facility] BUN 9 7 - 26 mg/dL 06/04/2024 1:44 PM [facility] Creatinine 0.86 0.57 - 1.11 mg/dL 06/04/2024 1:44 PM [facility] Alkaline Phosphatase 57 40 - 150 U/L 06/04/2024 1:44 PM [facility] ALT 31 0 - 55 U/L 06/04/2024 1:44 PM [facility] AST 25 5 - 34 U/L 06/04/2024 1:44 PM [facility] Protein Total 8.7(H) 6.4 - 8.3 gm/dL 06/04/2024 1:44 PM [facility] Albumin 4.1 3.4 - 5.0 gm/dL 06/04/2024 1:44 PM [facility] Bilirubin Total 0.2 0.2 - 1.2 mg/dL 06/04/2024 1:44 PM DORR OPERATOR [facility] eGFR by CKD-EPI 81(L) >=90 mL/min/1.7 3 m2 06/04/2024 1:44 PM DORR OPERATOR [facility] Blood BLOOD SPECIMEN / Unknown Venipuncture / Unknown 06/04/2024 1:20 PM DORR OPERATOR 06/04/2024 1:28 PM DORR OPERATOR Terra Wagner MD LAB - CHEMISTRY CHANEL Monet Organization Address City/State/ZIP Co de Phone Number [facility] [address] [place] [address] documented in this encounter Visit [...] 1530 $ New Bag/Syringe 06/04/2024 3:36 PM DORR OPERATOR 500 mL 1875 mL/hr iopamidol (Isovue 370) 76 % contrast Intravenous, CONTRAST ONCE, Starting on 06/04/24 at 1358, Until 06/04/24 at 1723 $ Given - Contrast 06/04/2024 2:08 PM DORR OPERATOR 80 mL morphine injection 2 mg 2 [...] oral intake $ Given 06/04/2024 1:25 PM DORR OPERATOR 2 mg ondansetron (Zofran) injection 4 mg 4 mg, Intravenous, NOW, 1 dose, On 06/04/24 at 1300, Administer over 2 to 5 minutes. $ Given 06/04/2024 1:25 PM DORR OPERATOR 4 mg documented in this encounter Active and Recently Administered Medications Times are shown in DORR OPERATOR. Scheduled Medication Order 06/02/2024 06/03/2024 06/04/2024 0.9% [...] RN) documented in this encounter Care Teams Fly Worker Relationship Specialty Start Date End Date Keisha Pineda PA [address] [place] [address] PCP - General Physician Toilet Products Molder 11/15/23 [place] [address] [address] [place] [address] Surgical Oncologist Surgical Oncology 02/15/23 [place] [address] [address] Dry Ice Machine Operator/Oncologist Hematology and Oncology 02/16/23 documented as of this encounter
--- OUTSIDE RECORDS SUMMARY | 2024-07-02 05:01 | XMS_ITS | Encounter Summary ---
Author Organization [facility] Address [address] [place] [address] Care Team Providers Care Kettle Room Helper Name Role Phone HoracioNaya Irving DO Unavailable [phone] Bernardo Lizarraga MD Unavailable Keisha Pineda Primary Care Pr ovider Encounter [...] st Contact Info) Description 07/19/2024 9:45 AM FINANCE LEAD Office Visit [facility] - TOURIST HOME KEEPER [address] [place] [address] Leatha Gupta MD [address] [place] [address] 12/11/2024 9:00 AM CDT Office Visit [facility] - Surgery [address] [place] [address], [address] [place] [address] [place] [address] [address] 12/11/2024 10:40 AM CDT Office Visit [facility] [address] [place] [address] [address] [place] [address] [place] [address] [address] [facility] [address] [place] [address] documented as of this encounter Visit Diagnoses Not on filedocumented in this encounter Care Teams Kettle Room Helper Relationship Specialty Start Date End Date Keisha Pineda PA [address] [place] [address] PCP - General Physician Commutator Presser 11/15/23 [place] [address] [address] [place] [address] Surgical Oncologist Surgical Oncology 02/15/23 [place] [address] [address] Animal Assistant/Oncologist Hematology and Oncology 02/16/23 documented as of this encounter
--- OUTSIDE RECORDS SUMMARY | 2024-07-02 05:01 | XMS_ITS | Encounter Summary ---
Author Organization [facility] Address [address] [place] [address] Care Team Providers Care Administrative Manager Name Role Phone Naya [place] Irivng DO Unavailable [phone] Bernardo Lizarraga MD Unavailable [phone] Celina Sifuentes MD Primary Care Provider [phone] Reason for Visit * Auth/Cert (Routine) Specialty Diagnoses / Procedures Referred By Contac t Referred To Contact Procedures [place] CANC SCRN,SCR COLONOSCOPY+BE COLONOSCOPY SCREEN Referral ID Status Reason Start Date Expiration Date Visits Re quested Visits Authorized [id number] 1 1 Encounter Details Date Type Department Care Team (Late st Contact Info) Description 09/27/2023 10:15 AM CDT - 09/27/2023 10:45 AM CDT Surgery [facility] - Endoscopy Services [address] [place] [address] Adama Holl[place] [address] [place] [address] [address] [place] [address] COLONOSCOPY SCREEN Surgery Details Date/Time Status Location OR Service Patient Class Case Class Case Type Trauma Case? 09/27/2023 10:15 AM Posted [facility] ENDO ENDO 01 Gastroenterology Surgery Day Care [...] STEREOTACTIC RIGHT BIOPSY 01/06/2023 [facility] ??? MASTECTOMY, SIMPLE Bilateral 02/18/2023 [...] Gastroenterology Interventional Endoscopy Director, Gastroenterology & Endoscopy [facility] Office: [phone] documented in this encounter Procedure Notes * Adama Holliday MD - 09/27/2023 10:48 AM CDTAssociated Order(s): ENDOSCOPY, COLON, SCREENING Colonoscopy done for screening. Normal colon other than diverticulosis. Repeat in 10 years for screening. documented in this encounter Plan of Treatment Upcoming Encounters Date Type Department Care Team (Late st Contact Info) Description 07/19/2024 9:45 AM TOWER OBSERVER Office Visit [facility] - SUPERSONIC ENGINEER [address] [place] [address] Leatha Gupta MD [address] [place] [address] 12/11/2024 9:00 AM CDT Office Visit [facility] - Surgery [address] [facility], [address] [place] [address] [place] [address] [facility] [address] [place] [address] 12/11/2024 10:40 AM CDT Office Visit [facility] Care [address] [place] [address] [address] [place] [address] [place] [id number] [place] [address] [address] [place] [address] documented as of this encounter Procedures Procedure Name Priority Date/Time Associated Diagnosis Comments NE [place] CANC SCRN,SCR COLONOSCOPY+BE 09/27/2023 10:15 AM [...] Gender: Female Attending MD: Adama Holliday MD, [id number] _ Procedure: ? Colonoscopy Indications: ? Screening [...] ? preparation was evaluated using the BBPS (Platinum Bowel ? Preparation Scale) with scores of: [...] Procedure Code(s): ? --- Professional --- ? 26491, Colonoscopy, flexible; diagnostic, including collection of ? specimen(s) by brushing or washing, when performed (separate procedure) ? --- Technical --- ? 70172, Colonoscopy, flexible; diagnostic, including collection of ? [...] abscess ? without bleeding CPT copyright 2020 [employer]. All rights reserved. The codes documented in this report are preliminary and upon shell maker lockstitch review may be revised to meet current compliance requirements. __ Adama Holliday MD 09/27/2023 10:47:51 AM Number of Addenda: 0 Note Initiated On: 09/27/2023 9:15 AM [facility] ENDOSCOPY 09/27/2023 9:15 AM CDT Narrative Procedure Note Adama Holliday MD - 09/27/2023 10:48 AM CDT Colonoscopy done for screening. Normal colon other than diverticulosis.Repeat in 10 years for screening. Ricky Fuentes MD GI PROCEDURE ORDERA AMBER [facility] [place] [address] documented in this encounter Visit Diagnoses Not [...] RN) documented in this encounter Care Teams Administrative Manager Relationship Specialty Start Date End Date Celina Sifuentes MD [address] [place] [address] PCP - General Family Medicine 02/16/23 11/14/23 [place] [address] [address] [place] [address] Surgical Oncologist Surgical Oncology 02/15/23 [place] [address] [place] [address] Experimental Outboard Motors Mechanic/Oncologist Hematology and Oncology 02/16/23 documented as of this encounter
--- OUTSIDE RECORDS SUMMARY | 2024-07-02 05:01 | XMS_ITS | Clinical Summary ---
Author Organization [facility] Address [address] [place] [address] Care Team Providers Care Automotive Parts Manager Name Role Phone Naya Leonard Irving DO Unavailable [phone] Bernardo Lizarraga MD Unavailable [phone] Keisha Pineda Primary Care Pr ovider Source Comments [facility],non-owned Affiliates and Associated Physician Practices is amultiple site organization consisting of ambulatory clinics and hospital sitesin [place], [place], [place] and [place]. This disclosure is being madepursuant to the Care Everywhere program and may not contain all information available regarding this patient. Last updated 18.[facility] Allergies No known active allergies Medications * [...] from 04/19/2023:Stage IA(pT1c, pN0, cM0, G1, ER+, NE+, HER2-, Oncotype DX score: 21) - Signed [...] Department Care Team Description 06/29/2024 3:00 PM INSURANCE SPECIAL AGENT Office Visit [address] [place] [address] Bernardo Lizarraga MD Invasive ductal carcinoma of right breast (HCC) (Primary Dx); Hot flashes; Premenopausal patient; Family history of cancer; Diverticulitis of colon 06/05/2024 Telephone [facility] - Surgery [address] [facility], [address] [place] [address] Naya Leonard DO Med Question 06/04/2024 11:36 AM INSURANCE SPECIAL AGENT - 06/04/2024 4:23 PM INSURANCE SPECIAL AGENT Emergency ER at [facility] [address] [place] [address] Terra Wagner MD Lower abdominal pain (Primary Dx); Diverticulitis of colon; Calculus of gallbladder without cholecystitis without obstruction Discharge Disposition: Home or Self Care 06/04/2024 Travel 05/16/2024 2:40 PM INSURANCE SPECIAL AGENT Office Visit [address] [place] [address] Bernardo Lizarraga MD Invasive ductal carcinoma of [...] Comments Blood Pressure 112/72 06/29/2024 3:07 PM INSURANCE SPECIAL AGENT Pulse 72 06/29/2024 3:07 PM INSURANCE SPECIAL AGENT Temperature 36.7 ??C (98.1 ??F) 06/29/2024 3:07 PM CS T Respiratory Rate 18 06/29/2024 3:07 PM INSURANCE SPECIAL AGENT Oxygen Saturation 99% 06/29/2024 3:07 PM INSURANCE SPECIAL AGENT Inhaled Oxygen Concentration - - Weight 73.6 kg (162 lb 4.8 oz) 06/29/2024 3:07 P M INSURANCE SPECIAL AGENT Height 163.8 cm (5' 4.5 ) 06/29/2024 3:07 PM INSURANCE SPECIAL AGENT Body Mass Index 27.43 06/29/2024 3:07 PM INSURANCE SPECIAL AGENT Plan of Treatment Upcoming Encounters Date Type Department Care Team (Late st Contact Info) Description 07/19/2024 9:45 AM INSURANCE SPECIAL AGENT Office Visit [facility] - [employer]AL [employer] [address] [place] [address] Leatha Gupta MD [address] [place] [address] 12/11/2024 9:00 AM CDT Office Visit [facility] - Surgery [address] [facility], [address] [place] [address] [place] [address] [place] [address] 12/11/2024 10:40 AM CDT Office Visit [facility] [address] [place] [address] [place] [address] [place] [address] [address] [place] [address] Health Maintenance Due Date Last [...] PELVIS W CONTRAST STAT 06/04/2024 2:14 PM INSURANCE SPECIAL AGENT Lower abdominal pain HCG BLOOD QUALITATIVE STAT 06/04/2024 1:20 PM INSURANCE SPECIAL AGENT LACTIC ACID BLOOD REFLEX TO REPEAT STAT 06/04/2024 1:20 PM INSURANCE SPECIAL AGENT CBC W AUTO DIFFERENTIAL STAT 06/04/2024 1:20 PM INSURANCE SPECIAL AGENT COMPREHENSIVE METABOLIC PANEL STAT 06/04/2024 1:20 PM INSURANCE SPECIAL AGENT FSH + LH PANEL Routine 05/16/2024 3:05 PM INSURANCE SPECIAL AGENT Invasive ductal carcinoma of right breast (HCC) Hot flashes Premenopausal patient ESTRADIOL Routine 05/16/2024 3:05 PM INSURANCE SPECIAL AGENT Invasive ductal carcinoma of right breast (HCC) Hot flashes Premenopausal patient ENDOSCOPY, COLON, SCREENING Routine 09/27/2023 9:15 AM CDT Special screening for malignant neoplasms, colon PAP IG LB+HPV APTIMA Routine 05/27/2023 4:44 PM INSURANCE SPECIAL AGENT Well woman exam LIPID PROFILE Routine 02/05/2023 [...] ABDOMEN PELVIS W CONTRAST (06/04/2024 2:14 PM INSURANCE SPECIAL AGENT) Anatomical Region Laterality Modality Abdomen, Pelvis Computed Tomogra phy 06/04/2024 2:52 PM INSURANCE SPECIAL AGENT Impressions 06/04/2024 2:55 PM INSURANCE SPECIAL AGENT IMPRESSION: 1.Bilateral ovarian follicle/cysts, the largest is [...] 06/04/2024 2:55 PM Narrative 06/04/2024 2:55 PM INSURANCE SPECIAL AGENT PROCEDURE(s): CT ABDOMEN PELVIS W CONTRAST DATE [...] BLOOD REFLEX TO REPEAT (06/04/2024 1:20 PM INSURANCE SPECIAL AGENT) Lactic Acid 0.9 <=2.0 mmol/L 06/04/2024 1:44 PM INSURANCE SPECIAL AGENT [facility] Blood BLOOD SPECIMEN / Unknown Venipuncture / Unknown 06/04/2024 1:20 PM INSURANCE SPECIAL AGENT 06/04/2024 1:28 PM INSURANCE SPECIAL AGENT Terra Wagner MD LAB - CHEMISTRY CHANEL FELIX [facility] Organization Address City/State/ZIP Co de Phone Number [facility] [address] [place] [address] * CBC W AUTO DIFFERENTIAL (06/04/2024 1:20 PM INSURANCE SPECIAL AGENT) WBC 8.6 4.0 - 10.7 x10E9/L 06/04/2024 1:31 PM INSURANCE SPECIAL AGENT [facility] RBC Count 4.99 3.90 - 5.20 x10E12/L 06/04/2024 1:31 PM INSURANCE SPECIAL AGENT [facility] Hemoglobin 14.6 11.9 - 15.8 g/dL 06/04/2024 1:31 PM INSURANCE SPECIAL AGENT [facility] Hematocrit 43.9 34.8 - 46.1 % 06/04/2024 1:31 PM INSURANCE SPECIAL AGENT [facility] MCV 88.0 80.0 - 98.0 fL 06/04/2024 1:31 PM INSURANCE SPECIAL AGENT [facility] MCH 29.3 26.7 - 33.6 pg 06/04/2024 1:31 PM INSURANCE SPECIAL AGENT [facility] MCHC 33.3 31.7 - 36.3 g/dL 06/04/2024 1:31 PM INSURANCE SPECIAL AGENT [facility] RDW-CV 12.2 11.3 - 14.8 % 06/04/2024 1:31 PM INSURANCE SPECIAL AGENT [facility] Platelet Count 408 150 - 420 x10E9/L 06/04/2024 1:31 PM INSURANCE SPECIAL AGENT [facility] MPV 9.1 7.8 - 11.4 fL 06/04/2024 1:31 PM INSURANCE SPECIAL AGENT [facility] Neutrophil % 70.9 41.0 - 74.0 % 06/04/2024 1:31 PM INSURANCE SPECIAL AGENT [facility] Lymphocyte % 19.9 17.0 - 47.0 % 06/04/2024 1:31 PM INSURANCE SPECIAL AGENT [facility] Monocyte % 5.8 3.0 - 11.0 % 06/04/2024 1:31 PM INSURANCE SPECIAL AGENT [facility] Eosinophil % 2.3 0.0 - 7.0 % 06/04/2024 1:31 PM INSURANCE SPECIAL AGENT [facility] Basophil % 0.9 0.0 - 1.6 % 06/04/2024 1:31 PM INSURANCE SPECIAL AGENT [facility] Immature Granulocytes % 0.2 0.0 - 1.0 % 06/04/2024 1:31 PM INSURANCE SPECIAL AGENT [facility] Neutrophil Absolute 6.12 1.60 - 7.50 x10E9/L 06/04/2024 1:31 PM INSURANCE SPECIAL AGENT [facility] Lymphocyte Absolute 1.72 1.00 - 4.40 x10E9/L 06/04/2024 1:31 PM INSURANCE SPECIAL AGENT [facility] Monocyte Absolute 0.50 0.15 - 1.00 x10E9/L 06/04/2024 1:31 PM INSURANCE SPECIAL AGENT [facility] Eosinophil Absolute 0.20 0.00 - 0.60 x10E9/L 06/04/2024 1:31 PM INSURANCE SPECIAL AGENT [facility] Basophil Absolute 0.08 0.00 - 0.13 x10E9/L 06/04/2024 1:31 PM INSURANCE SPECIAL AGENT [facility] Blood BLOOD SPECIMEN / Unknown Venipuncture / Unknown 06/04/2024 1:20 PM INSURANCE SPECIAL AGENT 06/04/2024 1:28 PM INSURANCE SPECIAL AGENT Terra Wagner MD LAB - HEMATOLOGY ORD ERABLES Performing Organization Address City/State/[facility] Co de Phone Number [facility] [address] [place] [phone] * (ABNORMAL) COMPREHENSIVE METABOLIC PANEL (06/04/2024 1:20 PM INSURANCE SPECIAL AGENT) [facility] Glucose 89 70 - 99 mg/dL 06/04/2024 1:44 PM [facility] Sodium 145 136 - 145 mmol/L 06/04/2024 1:44 PM [facility] Potassium 4.0 3.5 - 5.1 mmol/L 06/04/2024 1:44 PM [facility] Chloride 108(H) 98 - 107 mmol/L 06/04/2024 1:44 PM [facility] CO2 24 22 - 29 mmol/L 06/04/2024 1:44 PM [facility] Calcium 10.4 8.4 - 10.4 mg/dL 06/04/2024 1:44 PM [facility] Anion Gap 13 6 - 16 mmol/L 06/04/2024 1:44 PM [facility] BUN 9 7 - 26 mg/dL 06/04/2024 1:44 PM [facility] Creatinine 0.86 0.57 - 1.11 mg/dL 06/04/2024 1:44 PM INSURANCE SPECIAL AGENT [facility] Alkaline Phosphatase 57 40 - 150 U/L 06/04/2024 1:44 PM INSURANCE SPECIAL AGENT [facility] ALT 31 0 - 55 U/L 06/04/2024 1:44 PM INSURANCE SPECIAL AGENT [facility] AST 25 5 - 34 U/L 06/04/2024 1:44 PM INSURANCE SPECIAL AGENT [facility] Protein Total 8.7(H) 6.4 - 8.3 gm/dL 06/04/2024 1:44 PM INSURANCE SPECIAL AGENT [facility] Albumin 4.1 3.4 - 5.0 gm/dL 06/04/2024 1:44 PM INSURANCE SPECIAL AGENT [facility] Bilirubin Total 0.2 0.2 - 1.2 mg/dL 06/04/2024 1:44 PM INSURANCE SPECIAL AGENT [facility] eGFR by CKD-EPI 81(L) >=90 mL/min/1.7 3 m2 06/04/2024 1:44 PM INSURANCE SPECIAL AGENT [facility] Blood BLOOD SPECIMEN / Unknown Venipuncture / Unknown 06/04/2024 1:20 PM INSURANCE SPECIAL AGENT 06/04/2024 1:28 PM INSURANCE SPECIAL AGENT Terra Wagner MD LAB - CHEMISTRY CHANEL FELIX Performing Organization Address City/[facility] Co de Phone Number [facility] [address] [place] [address] * HCG BLOOD QUALITATIVE (06/04/2024 1:20 PM INSURANCE SPECIAL AGENT) HCG Qual Serum Negative Negative 06/04/2024 1:39 PM INSURANCE SPECIAL AGENT [facility] Blood BLOOD SPECIMEN / Unknown Venipuncture / Unknown 06/04/2024 1:20 PM INSURANCE SPECIAL AGENT 06/04/2024 1:28 PM INSURANCE SPECIAL AGENT Narrative [facility] - 06/04/2024 1:39 PM INSURANCE SPECIAL AGENT Specimens containing human anti-mouse antibodies may exhibit false positive or false negative results. If qualitative interpretation is inconsistent with clinical evaluation, consider confirmation by an alternative hCG method. Terra Wagner MD LAB - CHEMISTRY CHANEL FELIX Performing Organization Address [facility]/ZIP Co de Phone Number [facility] [address] [place] [address] * ESTRADIOL (05/16/2024 3:05 PM INSURANCE SPECIAL AGENT) Estradiol 234.0 pg/mL [facility] ACCOUNT BILL Comment: ? Adult Female ? Range ?Follicular phase ? 12.5 - 166.0 ?Ovulation phase ?85.8 - 498.0 ?Luteal phase ? 43.8 - 211.0 ?Postmenopausal ? <6.0 - ??54.7 ?1st trimester ? 215.0 - >4300.0 Phong ECLIA methodology Blood BLOOD SPECIMEN / Unknown 05/16/2024 3:05 PM INSURANCE SPECIAL AGENT 05/16/2024 Comment:Blood Release to [facility] i Narrative [facility] ACCOUNT BILL - 05/17/2024 1:10 PM INSURANCE SPECIAL AGENT Performed at: ??01 - [facility] [address] [place], [place] ??[id number] Campus Executive Director: Declan Drake PhD, Phone: ??[phone] Bernardo iLzarraga MD LAB - CHEMISTRY CHANEL FELIX [facility] ACCOUNT BILL [address] [place] [address] * FSH + LH PANEL (05/16/2024 3:05 PM INSURANCE SPECIAL AGENT) LH 9.1 mIU/mL [facility] ACCOUNT BILL Comment: [...] BLOOD SPECIMEN / Unknown 05/16/2024 3:05 PM INSURANCE SPECIAL AGENT 05/16/2024 Comment:Blood Release to pat i Narrative [facility] ACCOUNT BILL - 05/17/2024 12:07 AM INSURANCE SPECIAL AGENT Performed at: ?? [address] ??[id number] Campus Executive Director: Dillan Hernandez MD, Phone: ??[phone] Bernardo Lizarraga MD LAB - CHEMISTRY CHANEL FELIX [facility] Organization Address City/State/ZIP Co de Phone Number [facility] ACCOUNT BILL [address] [place] [address] * ENDOSCOPY, COLON, SCREENING (09/27/2023 9:15 AM CDT) Report Endoscopy POC _ Patient Name: Betina Coy ? Procedure Date: 09/27/2023 9:15 AM ? Date of : 1970 ?Admit Type: Outpatient Age: 53 ? Gender: Female Attending MD: Adama Holliday MD, [id number] _ Procedure: ? Colonoscopy Indications: ? Screening [...] ? preparation was evaluated using the BBPS ([place] Bowel ? Preparation Scale) with scores of: [...] Procedure Code(s): ? --- Professional --- ? 25459, Colonoscopy, flexible; diagnostic, including collection of ? specimen(s) by brushing or washing, when performed (separate procedure) ? --- Technical --- ? 11025, Colonoscopy, flexible; diagnostic, including collection of ? [...] abscess ? without bleeding CPT copyright 2020 [employer]. All rights reserved. The codes documented in this report are preliminary and upon certified coder review may be revised to meet current compliance requirements. __ Adama Holliday MD 09/27/2023 10:47:51 AM Number of Addenda: 0 Note Initiated On: 09/27/2023 9:15 AM [facility] 09/27/2023 9:15 AM CDT Narrative Procedure Note Adama Holliday MD - 09/27/2023 10:48 AM CDT Colonoscopy done for screening. Normal colon other than diverticulosis.Repeat in 10 years for screening. Ricky Fuentes MD GI PROCEDURE ORDERA AMBER [facility] [place] [address] * PAP IG LB+HPV APTIMA (05/27/2023 4:44 PM INSURANCE SPECIAL AGENT) Diagnosis [facility] ACCOUNT BILL Comment:NEGATIVE FOR INTRAEP [...] UTERINE CERVIX / Unknown 05/27/2023 4:44 PM INSURANCE SPECIAL AGENT 05/31/2023 Narrative [facility] ACCOUNT BILL - 06/02/2023 10:12 AM INSURANCE SPECIAL AGENT No. of containers..01 ThinPrep Vial Resulting Agency Comment Lab Testing performed at: [address] ??[facility] [id number] Leatha Gupta MD LAB - PATHOLOGY/CYT OLOGY ORDERABLES [facility] ACCOUNT BILL [address] [place] [address] * (ABNORMAL) LIPID PROFILE (02/05/2023 9:29 AM [...] Resulting Agency Comment Lab Testing performed at: [facility] [address] ?? [place] [id number] Celina Sifuentes MD LAB - CHEMISTRY O RDERABLES [facility] ACCOUNT BILL [address] [place] [address] * HIV-1 HIV-2 ANTIBODY + HIV P24 [...] Agency Comment Lab Testing performed at: [facility] ??[facility] [id number] Celina Sifuentes MD LAB - CHEMISTRY O RDERABLES [facility] ACCOUNT BILL [address] [place] [address] * HEPATITIS C ANTIBODY (02/05/2023 9:28 AM [...] Agency Comment Lab Testing performed at: [facility] [address] ??[facility] [id number] Celina Sifuentes MD LAB - CHEMISTRY O RDERABLES [facility] ACCOUNT BILL [address] [place] [address] * (ABNORMAL) MAMMO BILAT DIAGNOSTIC W DONALD [...] BOTH breasts was performed by a trained roll machine operator and by Dr. Maddi Landeros. BREAST PARENCHYMAL [...] Recently Relevant to Health Maintenance Care Teams Automotive Parts Manager Relationship Specialty Start Date End Date Keisha Pineda PA [address] [place] [address] PCP - General Physician Sales Solutions Associate 11/15/23 [place] [address] [facility] [address] [place] [address] Surgical Oncologist Surgical Oncology 02/15/23 [place] [address] [facility] [address] [place] [address] Inspector Multifocal Lens/Oncologist Hematology and Oncology 02/16/23
--- OUTSIDE RECORDS SUMMARY | 2024-07-02 05:01 | XMS_ITS | Encounter Summary ---
Author Organization [facility] Address [address] [facility] [place] [address] Care Team Providers Care Logistics Support Name Role Phone Naya Leonard DO Unavailable [phone] Bernardo Lizarraga MD Unavailable [phone] Celina Sifuentes MD Primary Care Provider [phone] Reason for Referral * Consultation (Routine) - Closed Specialty Diagnoses / Procedures Referred By Contac t Referred To Contact Diagnoses S/[place] [address] [place] [address] Referral ID Status Reason Start Date Expiration Date V isits Requested Visits Authorized [id number] Closed Specialty Services Required 04/23/2023 04/22/2024 1 1 Encounter Details Date Type Department Care Team (Late st Contact Info) Description 04/23/2023 Orders Only [facility] Medical [facility] - Surgery [address] [facility], [address] [place] [address] [place] [address] [place] [address] S/P bilateral mastectomy Social History Tobacco [...] st Contact Info) Description 07/19/2024 9:45 AM AGILE COACH Office Visit [facility] - PROCUREMENT PROFESSIONAL LOGISTICS [address] [place] [address] Leatha Gupta MD [address] [place] [address] 12/11/2024 9:00 AM CDT Office Visit [facility] - Surgery [address] [facility], [address] [address] [place] [address] [address] 12/11/2024 10:40 AM CDT Office Visit [facility] [address] [place] [address] [address] [place] [id number] [place] [address] Scheduled Referrals Name Type Priority Associated Diagnoses Order Schedule AMB REFERRAL TO PLASTIC SURGERY Outpatient Referral Routine S/P bilateral mastectomy 1 Occurrences starting 04/23/2023 until 04/23/2024 documented as of this encounter Visit Diagnoses Diagnosis S/P bilateral mastectomy- Primary Acquired absence of breast and nipple documented in this encounter Care Teams Logistics Support Relationship Specialty Start Date End Date Celina Sifuentes MD [address] [place] [address] PCP - General Family Medicine 8/8/23 5/5/24 [place] [address] [place] [address] Surgical Oncologist Surgical Oncology 02/15/23 [place] [address] [place] [address] Vocal Artist/Oncologist Hematology and Oncology 02/16/23 documented as of this encounter
--- OUTSIDE RECORDS SUMMARY | 2024-07-02 05:01 | XMS_ITS | Encounter Summary ---
Author Organization [facility] Address [address] [facility] [place] [address] Care Team Providers Care Enterprise Records Analyst Name Role Phone HoracioNaya Irving DO Unavailable [phone] Bernardo Lizarraga MD Unavailable [phone] Keisha Pineda Primary Care Pr ovider Reason for Visit * Reason Comments Refill Request Encounter Details Date Type Department Care Team (Late st Contact Info) Description 03/15/2024 Refill [facility] [address] [place] [address] [place] [address] [address] Refill Request Social History Tobacco [...] st Contact Info) Description 07/19/2024 9:45 AM FRETTED INSTRUMENTS INSPECTOR Office Visit [facility] - [address] [place] [address] Leatha Gupta MD [address] [place] [address] 12/11/2024 9:00 AM CDT Office Visit [facility] - Surgery [address] [place] [address], [address] [address] [place] [address] [address] 12/11/2024 10:40 AM CDT Office Visit [facility] [address] [place] [address]. [address] [place] [address] [place] [address] [address] documented as of this encounter Visit Diagnoses Diagnosis Invasive ductal carcinoma of right breast (HCC) documented in this encounter Care Teams Enterprise Records Analyst Relationship Specialty Start Date End Date Keisha Pineda PA [address] [place] [id number] PCP - General Physician Analytical Tech 11/15/23 [place] [address] [address] Surgical Oncologist Surgical Oncology 02/15/23 [place] [address] [facility] [address] [place] [address] Housing Manager/Oncologist Hematology and Oncology 02/16/23 documented as of this encounter
--- OUTSIDE RECORDS SUMMARY | 2024-07-02 05:01 | XMS_ITS | Encounter Summary ---
Author Organization [facility] Address [address] [place] [address] Care Team Providers Care Dishcloth Folder Name Role Phone Naya Leonard Irving GALLO Unavailable [phone] Bernardo Lizarraga MD Unavailable [phone] Celina Sifuentes MD Primary Care Provider [phone] Reason for Referral * Procedure (Routine) - Closed Specialty Diagnoses / Procedures Referred By Contlulu t Referred To Contact Gastroenterology Diagnoses Special screening for malignant neoplasms, colon Procedures ENDOSCOPY, COLON[place] [address] [address] [place] [address] Referral ID Status Reason Start Date Expiration Date Visits Re quested Visits Authorized [id number] Closed 04/02/2023 04/01/2024 1 1 Encounter Details Date Type Department Care Team (Late st Contact Info) Description 04/02/2023 Orders Only [facility] [place] [address] [place] [address] [place] [address] [address] [place] [address] Special screening for malignant neoplasms, [...] on: 06/30/2023 12:02 PM Modules accepted: Orders CENTER OPERATIONS MANAGER documented in this encounter Plan of Treatment Upcoming Encounters Date Type Department Care Team (Late st Contact Info) Description 07/19/2024 9:45 AM CALL CENTER OPERATIONS MANAGER Office Visit [facility] - DRUM BUILDER [address] [place] [address] Leatha Gupta MD [address] [place] [address] 12/11/2024 9:00 AM CDT Office Visit [facility] - Surgery [address] [facility] [place], [address] [address] [place] [address] [address] 12/11/2024 10:40 AM CDT Office Visit [facility] [address] [place] [address] Bernardo Lizarraga MD [address] [place] [address] documented as of this encounter Results * ENDOSCOPY, COLON, SCREENING (09/27/2023 9:15 AM CDT) Report Endoscopy POC _ Patient Name: Betina Coy ? Procedure Date: 09/27/2023 9:15 AM ? Date of : 1970 ?Admit Type: Outpatient Age: 53 ? Gender: Female Attending MD: Adama Holliday MD, [id number] _ Procedure: ? Colonoscopy Indications: ? Screening [...] ? preparation was evaluated using the BBPS ([place] Bowel ? Preparation Scale) with scores of: [...] Procedure Code(s): ? --- Professional --- ? 42936, Colonoscopy, flexible; diagnostic, including collection of ? specimen(s) by brushing or washing, when performed (separate procedure) ? --- Technical --- ? 05837, Colonoscopy, flexible; diagnostic, including collection of ? [...] abscess ? without bleeding CPT copyright 2021 [employer]. All rights reserved. The codes documented in this report are preliminary and upon health information coder review may be revised to meet current compliance requirements. __ Adama Holliday MD 09/27/2023 10:47:51 AM Number of Addenda: 0 Note Initiated On: 09/27/2023 9:15 AM [facility] ENDOSCOPY 09/27/2023 9:15 AM CDT Narrative Procedure Note Adama Holliday MD - 09/27/2023 10:48 AM CDT Colonoscopy done for screening. Normal colon other than diverticulosis.Repeat in 10 years for screening. Ricky Fuentes MD GI PROCEDURE ORDERA BETOS [facility] [place] [address] documented in this encounter Visit Diagnoses Diagnosis Special screening for malignant neoplasms, colon- Primary Special screening for malignant neoplasms, colon documented in this encounter Care Teams Dishcloth Folder Relationship Specialty Start Date End Date Celina Sifuentes MD [address] [place] [address] PCP - General Family Medicine 02/16/23 11/14/23 [place] [address] [address] [place] [address] Surgical Oncologist Surgical Oncology 02/15/23 [place] [address] [address] [place] [address] Information Security Director/Oncologist Hematology and Oncology 02/16/23 documented as of this encounter
--- OUTSIDE RECORDS SUMMARY | 2024-07-02 05:01 | XMS_ITS | Encounter Summary ---
Author Organization [facility] Address [address] [facility] [address] Care Team Providers Care Supervisor Baking Name Role Phone HoracioNaya Irving DO Unavailable [phone] Bernardo Lizarraga MD Unavailable [phone] Celina Sifuentes MD Primary Care Provider [phone] Reason for Visit * Reason Comments Refill Request Encounter Details Date Type Department Care Team (Late st Contact Info) Description 10/10/2023 Refill [facility] Cancer Care [address] [place] [address] [place] [address] [address] Refill Request Social History Tobacco [...] st Contact Info) Description 07/19/2024 9:45 AM POLE INCISOR OPERATOR Office Visit [facility] - GIRLS TENNIS COACH [address] [place] [address] Leatha Gupta MD [address] [place] [address] 12/11/2024 9:00 AM CDT Office Visit [facility] - Surgery [address] [place] [address], [address] [address] [place] [address] [address] [address] 12/11/2024 10:40 AM CDT Office Visit [facility] Cancer Care [address] [place] [address] Bernardo Lizarraga MD [address] [place], [place] [address] [address] documented as of this encounter Visit Diagnoses Diagnosis Invasive ductal carcinoma of right breast (HCC) documented in this encounter Care Teams Supervisor Baking Relationship Specialty Start Date End Date Celina Sifuentes MD [address] [place] [address] PCP - General Family Medicine 02/16/23 11/14/23 [place] [address] [place] [address] Surgical Oncologist Surgical Oncology 02/15/23 [place] [address] [address] [facility] [address] [place] [address] Income Tax Administrator/Oncologist Hematology and Oncology 02/16/23 documented as of this encounter
--- OUTSIDE RECORDS SUMMARY | 2024-07-02 05:01 | XMS_ITS | Encounter Summary ---
Author Organization [facility] Address [address] [place] [address] Care Team Providers Care Facilities Mechanical Design Engineer Name Role Phone Naya Leonard DO Unavailable [phone] Bernardo Lizarraga MD Unavailable [phone] Celina Sifuentes MD Primary Care Provider [phone] Reason for Visit * Reason Comments Post-Op Bilat Mast eval jose enrique villatoro Encounter Details Date Type Department Care Team (Latest Contact Info) Description 03/16/2023 3:00 PM CDT Office Visit [facility] - Surgery [address] [place] [address] Naya Leonard DO [address] [place] [address] Postoperative seroma of subcutaneous tissue after [...] -- Negative for metastatic carcinoma (0/1) at 0936 A/P: PO Right simple mastectomy, left prophylactic [...] st Contact Info) Description 07/19/2024 9:45 AM STAVE MILL HAND Office Visit [facility] - VENTILATION WORKER [address] [place] [address] Leatha Gupta MD [address] [place] [address] 12/11/2024 9:00 AM CDT Office Visit [facility] - Surgery [address] [place] [address] Naya Leonard DO [address] [place] [address] 12/11/2024 10:40 AM CDT Office Visit [facility] Cancer [facility] [place] [address] [facility]. [address] [place] [address] [place] [address] [facility] [address] [place] [address] documented as of this encounter Visit Diagnoses Diagnosis Postoperative seroma of subcutaneous tissue after non-dermatologic procedure- Primary documented in this encounter Care Teams Facilities Mechanical Design Engineer Relationship Specialty Start Date End Date Celina Sifuentes MD [address] [place] [address] PCP - General Family Medicine 02/16/23 11/14/23 [place] [address] [facility] [address] [place] [address] Surgical Oncologist Surgical Oncology 02/15/23 [place] [address] [place] [address] User Experience Researcher/Oncologist Hematology and Oncology 02/16/23 documented as of this encounter
--- OUTSIDE RECORDS SUMMARY | 2024-07-02 05:01 | XMS_ITS | Encounter Summary ---
Author Organization [facility] Address [address] [facility] [place] [address] Care Team Providers Care Product Technology Scientist Name Role Phone Naya Leonard Irving DO Unavailable [phone] Bernardo Lizarraga MD Unavailable [phone] Celina Sifuentes MD Primary Care Provider [phone] Reason for Visit * Auth/Cert (Routine) Specialty Diagnoses / Procedures Referred By Contac t Referred To Contact Diagnoses Malignant neoplasm of right female breast, unspecified estrogen receptor status, unspecified site of breast (HCC) Malignant neoplasm of right female breast, unspecified estrogen receptor status, unspecified site of breast (CMS/HCC) [C50.911] Procedures [place] INSERTION BREAST IMPLANT SAME DAY OF MASTECTOMY [place] GRFG AUTOL FAT LIPO 50 CC/< [place] REVISION ANGELA-IMPLANT CAPSULE BREAST RECONSTRUCTION BREAST / INSERTION BREAST PROSTHESIS GRAFT/TRANSFER FAT CAPSULOTOMY/CAPSULECTOMY BREAST Referral ID Status Reason Start Date Expiration Date Visits Re quested Visits Authorized [id number] 1 1 Encounter Details Date Type Department Care Team (Late st Contact Info) Description 06/08/2023 12:22 PM STORM CHASER Anesthesia Event [facility] [address], [address] [place] [address] Letitia Ackerman MD [address] [place] [address] Shady Tafoya, PATTERNMAKER METAL BENCH-PATTERNMAKER WOOD [address] [place] [address] Anesthesia Record Procedure Summary Procedure Name Responsible [...] CO2 Monitor 06/08/23 1228 by Shady Tafoya APRN-PATTERNMAKER WOOD 06/08/23 1453 by Shady Tafoya APRN-PATTERNMAKER WOOD Procedural Site (Incision) 06/08/23; 1239; Lower, Right; [...] Care NOTABLE EVENTS: No notable events documented. M CHASER * Letitia Ackerman MD - 06/08/2023 10:29 [...] RIGHT BIOPSY 01/06/2023 [facility] CFO CONTROLLER Status: Patient's last menstrual period was 01/23/2023 [...] for requested labs within last 120 days. M CHASER documented in this encounter Procedure Notes * Shady Tafoya APRN-CRNA - 06/08/2023 12:29 PM CSTAssociated Order(s): ETT Placement Endotracheal Tube Placement: Intubation Event Date/Time: 06/08/2023 12:28 PM Procedure: intubation (54763). Procedure Section: Sedation: under general anesthesia. Indications [...] Provider: Letitia Ackerman MD, Performed the procedure M CHASER documented in this encounter Miscellaneous Notes * [...] from the receiving PACUteam. JULIO CESAR Lindsey M CHASER documented in this encounter Plan of Treatment Upcoming Encounters Date Type Department Care Team (Late st Contact Info) Description 07/19/2024 9:45 AM STORM CHASER Office Visit [facility] - CFO CONTROLLER [address] [address] Leatha Gupta MD [address] [place] [address] 12/11/2024 9:00 AM CDT Office Visit [facility] [address] [facility], [address] [place] [address] [place] [address] [address] [place] [address] 12/11/2024 10:40 AM CDT Office Visit [facility] [address] [facility] [address] [place] [address] [place] [address] [facility] [address] [place] [address] documented as of this encounter Procedures Procedure Name Priority Date/Time Associated Diagnosis Comments ENDOTRACHEAL TUBE NOTE Routine 06/08/2023 12:29 PM STORM CHASER documented in this encounter Results * ETT LINE PERFORMABLE (06/08/2023 12:29 PM STORM CHASER) Narrative Shady Tafoya APRN-CRNA - 06/08/2023 12:29 PM STORM CHASER Shady Tafoya APRN-CRNA ? 06/08/2023 12:30 PM Endotracheal Tube Placement: ? Intubation Event Date/Time: ??06/08/2023 12:28 PM Procedure: intubation (71532). Procedure Section: ?? Sedation: under general anesthesia. [...] Anesthesia Intra-op $ Given 06/08/2023 12:42 PM STORM CHASER 8 mg fentaNYL (PF) (Sublimaze) injection Intravenous, PRN, Starting on Wed06/08/23 at 1227, Until Wed06/08/23 at 1458, Anesthesia Intra-op $ Given 06/08/2023 12:27 PM STORM CHASER 100 mcg glycopyrrolate (Robinul) injection Intravenous, PRN, Starting on Wed06/08/23 at 1428, Until Wed06/08/23 at 1458, Anesthesia Intra-op $ Given 06/08/2023 2:28 PM STORM CHASER 0.2 mg ketorolac (Toradol) injection Intravenous, PRN, Starting on Wed06/08/23 at 1327, Until Wed06/08/23 at 1458, Anesthesia Intra-op $ Given 06/08/2023 1:27 PM STORM CHASER 30 mg lactated ringers infusion at 100 mL/hr, Intravenous, CONTINUOUS, Starting on Wed06/08/23 at 1000, Until Wed06/08/23 at 1804, Pre-op $ New Bag/Syringe 06/08/2023 2:27 PM STORM CHASER $ New Bag/Syringe 06/08/2023 10:10 AM STORM CHASER 100 m L/hr lidocaine PF (Xylocaine MPF) 1 % injection Intravenous, PRN, Starting on Wed06/08/23 at 1227, Until Wed06/08/23 at 1458, Anesthesia Intra-op $ Given 06/08/2023 12:27 PM STORM CHASER 100 mg midazolam (Versed) injection Intravenous, PRN, Starting on Wed06/08/23 at 1222, Until Wed06/08/23 at 1458, Anesthesia Intra-op $ Given 06/08/2023 12:22 PM STORM CHASER 2 mg neostigmine (Prostigmin/Bloxiverz) injection Intravenous, PRN, Starting on Wed06/08/23 at 1428, Until Wed06/08/23 at 1458, Anesthesia Intra-op $ Given 06/08/2023 2:28 PM STORM CHASER 2 mg ondansetron (Zofran) injection Intravenous, PRN, Starting on Wed06/08/23 at 1242, Until Wed06/08/23 at 1458, Anesthesia Intra-op $ Given 06/08/2023 12:42 PM STORM CHASER 4 mg propofol (Diprivan) injection Intravenous, PRN, Starting on Wed06/08/23 at 1227, Until Wed06/08/23 at 1458, Anesthesia Intra-op $ Given 06/08/2023 12:27 PM STORM CHASER 180 mg rocuronium (Zemuron) injection Intravenous, PRN, Starting on Wed06/08/23 at 1227, Until Wed06/08/23 at 1458, Anesthesia Intra-op $ Given 06/08/2023 12:27 PM STORM CHASER 50 mg tranexamic acid (Cyklokapron) injection Intravenous, PRN, Starting on Wed06/08/23 at 1328, Until Wed06/08/23 at 1458, Anesthesia Intra-op $ Given 06/08/2023 1:28 PM STORM CHASER 1,000 mg documented in this encounter Care Teams Product Technology Scientist Relationship Specialty Start Date End Date Celina Sifuentes MD [address] [place] [address] PCP - General Family Medicine 02/16/23 11/14/23 [place] [address] [place] [address] Surgical Oncologist Surgical Oncology 02/15/23 [place] [address] [place] [address] Senior Naval Parachutist/Oncologist Hematology and Oncology 02/16/23 documented as of this encounter
--- OUTSIDE RECORDS SUMMARY | 2024-07-02 05:01 | XMS_ITS | Encounter Summary ---
Author Organization [facility] Address [address] [facility] [place] [address] Care Team Providers Care Inspector Integrated Circuits Name Role Phone Naya Leonard DO Unavailable [phone] Bernardo Lizarraga MD Unavailable [phone] Keisha Pineda Primary Care Pr ovider Reason for Visit * Reason Comments Follow-up 6mo F/U rt breast CA Encounter Details Date Type Department Care Team (Late st Contact Info) Description 11/15/2023 8:40 AM CDT Office Visit [facility] Medical [facility] - Surgery [address] [place] [address] [place] [address] [place] [address] Invasive ductal carcinoma of right breast [...] Surgeon: Place: [] Ovi Rose M.D. [] [facility] 2nd Floor [facility]. [] Mukund Azevedo M.D. Patient Registration [] Ernesto Melendez M.D. [x] [facility] Surgery [place] [] Dior Heard M.D. [facility] Floor/[facility]. [x] Naya Leonard D.O. [] [facility] [] aMhesh Eugene D.O. First Floor Main Entrance [] [...] o'clock position revealed an infiltrating ductal carcinoma ER/DE positive, HER2/brittany negative with low KI 67. The calcifications revealedDCIS, ER/DE positive. Patient underwent breast MRI which showed [...] STEREOTACTIC RIGHT BIOPSY 01/06/2023 [facility] ??? MASTECTOMY, SIMPLE Bilateral 02/18/2023 [...] BOTH breasts was performed by a trained motor scooter repairer and by Dr. Maddi Landeros. ? BREAST [...] will be scheduled to return to the [facility] for biopsy . ?? > Interpreting Provider: [...] ER: ??Positive ??( ??70 %, moderate intensity) DE: ??Positive ( 90 ?%, strong intensity) Her-2-brittany: ?Not over-expressed (score 1+) Ki-67: ?Low proliferation/favorable ( 3 ??%) ?? Specimen B (right breast calcifications): ER: ??Positive ( >95 ??%, strong intensity) DE: ??Positive ( 50 ??%, moderate intensity) Final [...] by Mallory Mina MD on 03/09/2023 at 2788 Addendum 1 A request for Oncotype DX [...] revision by Plastic surgery Assessment Right IDC (ER/DE+ HER2/brittany negative) and DCIS (ER/DE+) Left breast LCIS Stage I A Left [...] st Contact Info) Description 07/19/2024 9:45 AM TURF FARM WORKER Office Visit [facility] - HUMAN RESOURCE MANAGEMENT INSTRUCTOR [address] [place] [address] Leatha Gupta MD [address] [place] [address] 12/11/2024 9:00 AM CDT Office Visit [facility] - Surgery [address] [place] [address], [address] [place] [address] [place] [address] [address] [facility] [address] [place] [address] 12/11/2024 10:40 AM CDT Office Visit [facility] [address] [place] [address] [address] [place] [address] [place] [address] [address] [facility] [address] [place] [address] documented as of this encounter Visit Diagnoses Diagnosis Invasive ductal carcinoma of right breast (HCC)- Primary Mass of left chest wall documented in this encounter Care Teams Inspector Integrated Circuits Relationship Specialty Start Date End Date Keisha Pineda PA [address] [place] [address] PCP - General Physician Associate Professor Of Education 11/15/23 [place] [address] [address] [address] Surgical Oncologist Surgical Oncology 02/15/23 [place] [address] [phone] Hand Miter Operator/Oncologist Hematology and Oncology 02/16/23 documented as of this encounter
--- OUTSIDE RECORDS SUMMARY | 2024-07-02 05:01 | XMS_ITS | Encounter Summary ---
Author Organization [facility] Address [address] [facility] [address] [address] Care Team Providers Care Timber Repairer Name Role Phone Naya Leonard Irving DO Unavailable [phone] Bernardo Lizarraga MD Unavailable [phone] Keisha Pineda Primary Care Pr ovider [...] st Contact Info) Description 07/19/2024 9:45 AM WATER PUMPING STATION ENGINEER Office Visit [facility] - MANAGER LABORATORY [address] [place] [address] Leatha Gupta MD [address] [place] [address] 12/11/2024 9:00 AM CDT Office Visit [facility] - Surgery [address] [facility], [address] [place] [address] [place] [address] [address] [place] [address] 12/11/2024 10:40 AM CDT Office Visit [facility] [address] [facility] [address] [place] [address] [place] [address] [address] [place] [address] documented as of this encounter Visit Diagnoses Not on filedocumented in this encounter Care Teams Timber Repairer Relationship Specialty Start Date End Date Keisha Pineda PA [address] [place] [address] PCP - General Physician Racing Mechanic 11/15/23 [place] [address] [address] [place] [address] Surgical Oncologist Surgical Oncology 02/15/23 [place] [address] [address] [place] [address] Census Taker/Oncologist Hematology and Oncology 02/16/23 documented as of this encounter
--- OUTSIDE RECORDS SUMMARY | 2024-07-02 05:01 | XMS_ITS | Encounter Summary ---
Author Organization [facility] Address [address] [place] [address] Care Team Providers Care Dentist/Owner Name Role Phone HoracioNaya Irving DO Unavailable [phone] Bernardo Lizarraga MD Unavailable [phone] Celina Sifuentes MD Primary Care Provider [phone] Reason for Visit * Reason Comments Follow-up Encounter Details Date Type Department Care Team (Late st Contact Info) Description 03/17/2023 3:00 PM CDT Office Visit [facility] Cancer Care [address] [place] [address] Bernardo Lizarraga MD [address] [place] [address] Invasive ductal carcinoma of right breast [...] Lizarraga MD - 03/17/2023 3:00 PM CDT [facility] Clinic Follow Up Assessment: Piotr ?? - Invasive Ductal Carcinoma of Right Breast - ER/CO+, Her2- (1+) - [id number] stage IA. Grade 1, Ki-67 3%. Bilateral [...] Bernardo Lizarraga MD - Hematology/Oncology Available on Xecced chat during the week Cell# (providers only): [phone] Oncology History: 02/2023 - Diagnosed right breast IDC - ER/CO+, Her2- (1+) - Grade 1, Ki-67 3% 02/2023 - Bilateral mastectomy (Horacio) - [id number] Stage IA - 1.5cm, 0/1 nodes positive. [...] Lizarraga MD - Hematology/Oncology Cell# (providers only) [phone] documented in this encounter Plan of Treatment Upcoming Encounters Date Type Department Care Team (Late st Contact Info) Description 07/19/2024 9:45 AM SECURITY POLICE OFFICER Office Visit [facility] - ALLIED HEALTH PROFESSIONAL [address] [place] [address] Leatha Gupta MD [address] [place] [address] 12/11/2024 9:00 AM CDT Office Visit [facility] - Surgery [address] [facility], [address] [place] [address] [place] [address] [facility] [address] [place] [address] 12/11/2024 10:40 AM CDT Office Visit [facility] Cancer Care [address] [place] [address] [address] [place] [address] [place] [address] [address] [place] [address] documented as of this encounter Visit Diagnoses Diagnosis Invasive ductal carcinoma of right breast (HCC)- Primary Family history of cancer Family history of unspecified malignant neoplasm Benign cyst of breast, unspecified laterality Acute back pain, unspecified back location, unspecified back pain laterality Premenopausal patient Symptomatic menopausal or female climacteric states documented in this encounter Care Teams Dentist/Owner Relationship Specialty Start Date End Date Celina Sifuentes MD [address] [place] [address] PCP - General Family Medicine 02/16/23 11/14/23 [place] [address] [address] [place] [address] Surgical Oncologist Surgical Oncology 02/15/23 [place] [address] [address] [place] [address] Hot Frame Tender/Oncologist Hematology and Oncology 02/16/23 documented as of this encounter
--- OUTSIDE RECORDS SUMMARY | 2024-07-02 05:01 | XMS_ITS | Encounter Summary ---
Author Organization [facility] Address [address] [facility] [place] [address] Care Team Providers Care Aircraft Stress Analyst Name Role Phone Naya Leonard DO Unavailable [phone] Bernardo Lizarraga MD Unavailable [phone] Celina Sifuentes MD Primary Care Provider [phone] Reason for Visit * Reason Comments Follow-up Bilat mast Encounter Details Date Type Department Care Team (Late st Contact Info) Description 03/29/2023 8:40 AM CDT Office Visit [facility] - Surgery [address] [place] [id number] Naya Leonard DO [id number] [place] [phone] Postop check (Primary Dx); Postoperative seroma [...] st Contact Info) Description 07/19/2024 9:45 AM NEGATIVE TURNER APPRENTICE Office Visit [facility] - ICE CREAM FREEZER [address] [place] [address] Leatha Gupta MD [address] [place] [address] 12/11/2024 9:00 AM CDT Office Visit [facility] - Surgery [id number] [place] [address], [address] [place] [address] Naya Leonard DO [address] [place] [phone] 12/11/2024 10:40 AM CDT Office Visit [facility] [address] [facility] [address] [place] [address] [place] [address] [address] [place] [address] documented as of this encounter Visit Diagnoses Diagnosis Postop check- Primary Follow-up examination, following unspecified surgery Postoperative seroma of subcutaneous tissue after non-dermatologic procedure documented in this encounter Care Teams Aircraft Stress Analyst Relationship Specialty Start Date End Date Celina Sifuentes MD [address] [place] [phone] PCP - General Family Medicine 02/16/23 11/14/23 [place] [address] [address] [place] [address] Surgical Oncologist Surgical Oncology 02/15/23 [place] [address] [address] [place] [phone] Pattern Stamper/Oncologist Hematology and Oncology 02/16/23 documented as of this encounter
--- OUTSIDE RECORDS SUMMARY | 2024-07-02 05:01 | XMS_ITS | Encounter Summary ---
Author Organization [facility] Address [address] [facility] [place] [address] Care Team Providers Care First Officer Name Role Phone HoracioNaya Ivring DO Unavailable [phone] Bernardo Lizarraga MD Unavailable [phone] Celina Sifuentes MD Primary Care Provider [phone] Reason for Visit * Reason Comments Follow-up Encounter Details Date Type Department Care Team (Late st Contact Info) Description 04/19/2023 3:00 PM CDT Office Visit [facility] [address] [place] [address] Bernardo Lizarraga MD [address] [place] [phone] Invasive ductal carcinoma of right breast [...] * Patient Instructions* Bernardo Lizarraga MD - 04/19/2023 3:17 PM CDT Continue tamoxifen 20mg daily - planning 5 years (03/2028) RTC 6 months no labs documented in this encounter Progress Notes * Bernardo Lizarraga MD - 04/19/2023 3:08 PM CDT [facility] 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 - Invasive Ductal Carcinoma of Right Breast - ER/WY+, Her2- (1+) - [id number] stage IA. Grade 1, Ki-67 3%. Bilateral [...] Bernardo Lizarraga MD - Hematology/Oncology Available on Rapportive chat during the week Cell# (providers only): [phone] Oncology History: 02/2023 - Diagnosed right breast IDC - ER/WY+, Her2- (1+) - Grade 1, Ki-67 3% 02/2023 - Bilateral mastectomy (Horacio) - [id number] Stage IA - 1.5cm, 0/1 nodes positive. [...] Lizarraga MD - Hematology/Oncology Cell# (providers only) [phone] documented in this encounter Plan of Treatment Upcoming Encounters Date Type Department Care Team (Late st Contact Info) Description 07/19/2024 9:45 AM GREY GOODS TESTER Office Visit [facility] - SURVEY METHODOLOGIST [address] [place] [address] Leatha Gupta MD [address] [place] [address] 12/11/2024 9:00 AM CDT Office Visit [facility] - Surgery [address] [facility] [place] [address] [place] [address] [place] [address] [address] [facility] [address] [place] [address] 12/11/2024 10:40 AM CDT Office Visit [facility] [address] [place] [address] [address] [place] [address] [place] [address] [address] [facility] [address] [place] [address] documented as of this encounter Visit Diagnoses Diagnosis Invasive ductal carcinoma of right breast (HCC)- Primary Hot flashes Symptomatic menopausal or female climacteric states Family history of cancer Family history of unspecified malignant neoplasm Benign cyst of breast, unspecified laterality Premenopausal patient Symptomatic menopausal or female climacteric states documented in this encounter Care Teams First Officer Relationship Specialty Start Date End Date Celina Sifuentes MD [address] [place] [address] PCP - General Family Medicine 02/16/23 11/14/23 [place] [address] [place] [phone] Surgical Oncologist Surgical Oncology 02/15/23 [place] [address] [place] [phone] Reinforcing Metal Worker/Oncologist Hematology and Oncology 02/16/23 documented as of this encounter
--- OUTSIDE RECORDS SUMMARY | 2024-07-02 05:01 | XMS_ITS | Patient Health Summary ---
Author Organization [facility] [email or web address] Address [address] [place] [address] Care Team Providers Care Training And Development Officer Name Role Phone Naya Leonard DO Unavailable [phone] Bernardo Lizarraga MD Unavailable [phone] Keisha Pineda Primary Care Pr ovider Note from [facility],non-owned Affiliates and Associated Physician Practices is amultiple site organization consisting of ambulatory clinics and hospital sitesin [place], [place] and [place]. This disclosure is being madepursuant to the Care Everywhere program and may not contain all information available regarding this patient. Last updated 18.[facility] Allergies No known active allergies Medications * [...] from 04/19/2023:Stage IA(pT1c, pN0, cM0, G1, ER+, AL+, HER2-, Oncotype DX score: 21) - Signed [...] Comments Blood Pressure 112/72 06/29/2024 3:07 PM BUTCHER HELPER Pulse 72 06/29/2024 3:07 PM BUTCHER HELPER Temperature 36.7 ??C (98.1 ??F) 06/29/2024 3:07 PM CS T Respiratory Rate 18 06/29/2024 3:07 PM BUTCHER HELPER Oxygen Saturation 99% 06/29/2024 3:07 PM BUTCHER HELPER Inhaled Oxygen Concentration - - Weight 73.6 kg (162 lb 4.8 oz) 06/29/2024 3:07 P M BUTCHER HELPER Height 163.8 cm (5' 4.5 ) 06/29/2024 3:07 PM BUTCHER HELPER Body Mass Index 27.43 06/29/2024 3:07 PM BUTCHER HELPER Procedures * CT ABDOMEN PELVIS W CONTRAST(Performed [...] 11/30/2023) Performed for Mass in chest * AL EXC SKIN BENIG 3.1-4CM TRUNK,ARM,LEG(Performed 11/30/2023) Performed for Mass in chest * HCG URINE QUAL POCT NOTIFICATION(Performed 11/30/2023) Performed for Preop examination * HCG URINE QUALITATIVE - POCT (IP) INTERFACED(Performed 11/30/2023) * AL COLOREC CANC SCRN,SCR COLONOSCOPY+BE(Performed 09/27/2023) * ENDOSCOPY, [...] (HCC) * ENDOTRACHEAL TUBE NOTE(Performed 06/08/2023) * AL GRFG AUTOL FAT LIPO 50 CC/<(Performed 06/08/2023) Performed for Malignant neoplasm of right female breast, unspecified estrogen receptor status, unspecified site of breast (HCC) * AL INSERTION BREAST IMPLANT SAME DAY OF MASTECTOMY(Performed 06/08/2023) Performed for Malignant neoplasm of right female breast, unspecified estrogen receptor status, unspecified site of breast (HCC) * PAP IG LB+HPV APTIMA(Performed 05/27/2023) Performed for Well woman exam * AL EXC NECK FRITZ DEEP = 5 CM(Performed 02/25/2023) * HCG URINE QUALITATIVE(Performed 02/25/2023) Performed for Preoperative examination * STREP A SCREEN DIRECT W RFLX STREP A CULTURE(Performed 02/19/2023) * PATHOLOGY TISSUE EXAM (STL)(Performed 02/18/2023) Performed for Diagnosis unknown * ENDOTRACHEAL TUBE NOTE(Performed 02/18/2023) * AL MAST SMPL COMPL(Performed 02/18/2023) * NM LYMPHOSCINTIGRAPHY(Performed [...] ABDOMEN PELVIS W CONTRAST (06/04/2024 2:14 PM BUTCHER HELPER) Only the most recent of2 resultswithin the time period is included. Anatomical Region Laterality Modality Abdomen, Pelvis Computed Tomogra phy 06/04/2024 2:52 PM BUTCHER HELPER Impressions 06/04/2024 2:55 PM BUTCHER HELPER IMPRESSION: 1.Bilateral ovarian follicle/cysts, the largest is [...] 06/04/2024 2:55 PM Narrative 06/04/2024 2:55 PM BUTCHER HELPER PROCEDURE(s): CT ABDOMEN PELVIS W CONTRAST DATE [...] BLOOD REFLEX TO REPEAT (06/04/2024 1:20 PM BUTCHER HELPER) Pathologist [facility] Lactic Acid 0.9 <=2.0 mmol/L 06/04/2024 1:44 PM BUTCHER HELPER [facility] Blood BLOOD SPECIMEN / Unknown Venipuncture / Unknown 06/04/2024 1:20 PM BUTCHER HELPER 06/04/2024 1:28 PM BUTCHER HELPER Terra Wagner MD LAB - CHEMISTRY CHANEL FELIX [facility] Organization Address City/State/ZIP Co de Phone Number [facility] [address] [place] [address] * CBC W AUTO DIFFERENTIAL (06/04/2024 1:20 PM BUTCHER HELPER) Only the most recent of3 resultswithin the time period is included. Pathologist [facility] WBC 8.6 4.0 - 10.7 x10E9/L 06/04/2024 1:31 PM BUTCHER HELPER [facility] RBC Count 4.99 3.90 - 5.20 x10E12/L 06/04/2024 1:31 PM BUTCHER HELPER [facility] Hemoglobin 14.6 11.9 - 15.8 g/dL 06/04/2024 1:31 PM BUTCHER HELPER [facility] Hematocrit 43.9 34.8 - 46.1 % 06/04/2024 1:31 PM BUTCHER HELPER [facility] MCV 88.0 80.0 - 98.0 fL 06/04/2024 1:31 PM BUTCHER HELPER [facility] MCH 29.3 26.7 - 33.6 pg 06/04/2024 1:31 PM BUTCHER HELPER [facility] MCHC 33.3 31.7 - 36.3 g/dL 06/04/2024 1:31 PM BUTCHER HELPER [facility] RDW-CV 12.2 11.3 - 14.8 % 06/04/2024 1:31 PM [facility] Platelet Count 408 150 - 420 x10E9/L 06/04/2024 1:31 PM [facility] MPV 9.1 7.8 - 11.4 fL 06/04/2024 1:31 PM [facility] Neutrophil % 70.9 41.0 - 74.0 % 06/04/2024 1:31 PM [facility] Lymphocyte % 19.9 17.0 - 47.0 % 06/04/2024 1:31 PM [facility] Monocyte % 5.8 3.0 - 11.0 % 06/04/2024 1:31 PM [facility] Eosinophil % 2.3 0.0 - 7.0 % 06/04/2024 1:31 PM [facility] Basophil % 0.9 0.0 - 1.6 % 06/04/2024 1:31 PM [facility] Immature Granulocytes % 0.2 0.0 - 1.0 % 06/04/2024 1:31 PM [facility] Neutrophil Absolute 6.12 1.60 - 7.50 x10E9/L 06/04/2024 1:31 PM [facility] Lymphocyte Absolute 1.72 1.00 - 4.40 x10E9/L 06/04/2024 1:31 PM [facility] Monocyte Absolute 0.50 0.15 - 1.00 x10E9/L 06/04/2024 1:31 PM [facility] Eosinophil Absolute 0.20 0.00 - 0.60 x10E9/L 06/04/2024 1:31 PM [facility] Basophil Absolute 0.08 0.00 - 0.13 x10E9/L 06/04/2024 1:31 PM [facility] Blood BLOOD SPECIMEN / Unknown Venipuncture / Unknown 06/04/2024 1:20 PM BUTCHER HELPER 06/04/2024 1:28 PM [facility] Terra Wagner MD LAB - HEMATOLOGY ORD ERABLES [facility] [address] [place] [address] * (ABNORMAL) COMPREHENSIVE METABOLIC PANEL (06/04/2024 1:20 PM BUTCHER HELPER) Only the most recent of2 resultswithin the time period is included. Glucose 89 70 - 99 mg/dL 06/04/2024 1:44 PM [facility] Sodium 145 136 - 145 mmol/L 06/04/2024 1:44 PM [facility] Potassium 4.0 3.5 - 5.1 mmol/L 06/04/2024 1:44 PM [facility] Chloride 108(H) 98 - 107 mmol/L 06/04/2024 1:44 PM [facility] CO2 24 22 - 29 mmol/L 06/04/2024 1:44 PM [facility] Calcium 10.4 8.4 - 10.4 mg/dL 06/04/2024 1:44 PM [facility] Anion Gap 13 6 - 16 mmol/L 06/04/2024 1:44 PM [facility] BUN 9 7 - 26 mg/dL 06/04/2024 1:44 PM [facility] Creatinine 0.86 0.57 - 1.11 mg/dL 06/04/2024 1:44 PM [facility] Alkaline Phosphatase 57 40 - 150 U/L 06/04/2024 1:44 PM [facility] ALT 31 0 - 55 U/L 06/04/2024 1:44 PM [facility] AST 25 5 - 34 U/L 06/04/2024 1:44 PM [facility] Protein Total 8.7(H) 6.4 - 8.3 gm/dL 06/04/2024 1:44 PM [facility] Albumin 4.1 3.4 - 5.0 gm/dL 06/04/2024 1:44 PM [facility] Bilirubin Total 0.2 0.2 - 1.2 mg/dL 06/04/2024 1:44 PM [facility] eGFR by CKD-EPI 81(L) >=90 mL/min/1.7 3 m2 06/04/2024 1:44 PM [facility] Blood BLOOD SPECIMEN / Unknown Venipuncture / Unknown 06/04/2024 1:20 PM BUTCHER HELPER 06/04/2024 1:28 PM BUTCHER HELPER Terra Wagner MD LAB - CHEMISTRY CHANEL FELIX Performing Organization Address [facility] de Phone Number [facility] [address] [place] [address] * HCG BLOOD QUALITATIVE (06/04/2024 1:20 PM BUTCHER HELPER) [facility] HCG Qual Serum Negative Negative 06/04/2024 1:39 PM BUTCHER HELPER [facility] Blood BLOOD SPECIMEN / Unknown Venipuncture / Unknown 06/04/2024 1:20 PM BUTCHER HELPER 06/04/2024 1:28 PM BUTCHER HELPER Narrative [facility] - 06/04/2024 1:39 PM BUTCHER HELPER Specimens containing human anti-mouse antibodies may exhibit false positive or false negative results. If qualitative interpretation is inconsistent with clinical evaluation, consider confirmation by an alternative hCG method. Terra Wagner MD LAB - CHEMISTRY CHANEL FELIX Performing Organization Address [facility] de Phone Number [facility] [address] [place] [address] * ESTRADIOL (05/16/2024 3:05 PM BUTCHER HELPER) [facility] Estradiol 234.0 pg/mL [facility] ACCOUNT BILL Comment: ? Adult Female ? Range ?Follicular phase ? 12.5 - 166.0 ?Ovulation phase ?85.8 - 498.0 ?Luteal phase ? 43.8 - 211.0 ?Postmenopausal ? <6.0 - ??54.7 ?1st trimester ? 215.0 - >4300.0 Phong ECLIA methodology Blood BLOOD SPECIMEN / Unknown 05/16/2024 3:05 PM BUTCHER HELPER 05/16/2024 Comment:Blood Release to pat i Narrative [facility] ACCOUNT BILL - 05/17/2024 1:10 PM BUTCHER HELPER Performed at: ??01 - [facility] [address] [place], [place] ??[id number] Drop Wire Aliner: Declan Drake PhD, Phone: ??[phone] Bernardo Lizarraga MD LAB - CHEMISTRY CHANEL FELIX [facility] ACCOUNT BILL [address] [place] [address] * FSH + LH PANEL (05/16/2024 3:05 PM BUTCHER HELPER) LH 9.1 mIU/mL [facility] ACCOUNT BILL Comment: [...] BLOOD SPECIMEN / Unknown 05/16/2024 3:05 PM BUTCHER HELPER 05/16/2024 Comment:Blood Release to pat i Narrative [facility] ACCOUNT BILL - 05/17/2024 12:07 AM BUTCHER HELPER Performed at: ??[address] [place] [address] ??[id number] Drop Wire Aliner: Dillan Hernandez MD, Phone: ??[phone] Bernardo Lizarraga MD LAB - CHEMISTRY CHANEL FELIX Performing Organization Address City/State/[facility] Co de Phone Number [facility] ACCOUNT BILL [address] [place] [address] * PATHOLOGY TISSUE EXAM (STL) (11/30/2023 11:34 AM CDT) Only the most recent of4 resultswithin the time period is included. Case Report Surgical Pathology Report ? Case: [id number] ? Authorizing Provider: ??Naya Leonard, DO ? Collected: ? 11/30/2023 11:34 AM ? Ordering Location: ? [facility] - Received: ?11/30/2023 01:51 PM ? General Surgery ? Pathologist: ? Sarah Blount MD ? Specimen: ?Chest Mass, chest wall mass ? 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 Sections show a gritty yellow-hurtado adipose tissue. Pelt Shearer sections are submitted in cassette A1. /tc 12/02/2023 8:47 AM CDT [facility] Microscopic Description Microscopic examination substantiates the above cited diagnosis. 12/02/2023 8:47 AM CDT [facility] Disclaimer All histochemical and/or immunohistochemical results are interpreted with controls that demonstrate appropriate staining reactions before reporting results. Note on use of immunocytochemistry reagents: This test was developed and its performance characteristic determined by [facility], Department of Laboratory Medicine. It has not [...] interpreted with caution. 12/02/2023 8:47 AM CDT [facility] Embedded Images 12/02/2023 8:47 AM CDT [facility] Pathology/Cytolo gy MASS OF CHEST WALL / Unknown 11/30/2023 11:34 AM CDT 11/30/2023 1:51 PM CDT Comment:Pre-op diagnosis: Mass in chest [R22.2] Naya Leonard DO LAB - PATHOLOGY/CYTO LOGY ORDERABLES Performing Organization Address [facility] Co de Phone Number [facility] [address] [place], [place] [id number] * HCG URINE QUAL POCT NOTIFICATION (11/30/2023 10:30 AM CDT) Comment Notification Label Only - See Separate Report 11/30/2023 10:30 AM CDT [facility] Urine URINE / Unknown 9:29 AM CDT Ricarda Zarate DO LAB - URINALYSIS ORD ERABLES Performing Organization Address [facility] Co de Phone Number [facility] [address] [place] [phone] * HCG URINE QUALITATIVE - POCT (IP) INTERFACED (11/30/2023 9:32 AM CDT) HCG Qual Urine Negative Negative 11/30/2023 9:38 AM CDT [facility] Urine URINE / Unknown 11/30/2023 9 :32 AM CDT 11/30/2023 9:38 AM CDT Naya Leonard DO LAB - POINT OF CARE ORDERABLES [facility] [address] [place] [address] * ENDOSCOPY, COLON, SCREENING (09/27/2023 9:15 AM CDT) Report Endoscopy POC _ Patient Name: Betina Coy ? Procedure Date: 09/27/2023 9:15 AM ? Date of : 1970 ?Admit Type: Outpatient Age: 53 ? Gender: Female Attending MD: Adama Holliday MD, [id number] _ Procedure: ? Colonoscopy Indications: ? Screening [...] ? preparation was evaluated using the BBPS ([place] Bowel ? Preparation Scale) with scores of: [...] Procedure Code(s): ? --- Professional --- ? 91837, Colonoscopy, flexible; diagnostic, including collection of ? specimen(s) by brushing or washing, when performed (separate procedure) ? --- Technical --- ? 37650, Colonoscopy, flexible; diagnostic, including collection of ? [...] abscess ? without bleeding CPT copyright 2020 [employer]. All rights reserved. The codes documented in this report are preliminary and upon school business administrator review may be revised to meet current compliance requirements. __ Adama Holliday MD 09/27/2023 10:47:51 AM Number of Addenda: 0 Note Initiated On: 09/27/2023 9:15 AM [facility] 09/27/2023 9:15 AM CDT Narrative Procedure Note Adama Holliday MD - 09/27/2023 10:48 AM CDT Colonoscopy done for screening. Normal colon other than diverticulosis.Repeat in 10 years for screening. Ricky Fuentes MD GI PROCEDURE ORDERA [facility] Performing Organization Address City/State/[facility] Co de Phone Number [facility] [place] [address] * US PELVIS W TRANSVAG NON OB (09/14/2023 9:25 AM BUTCHER HELPER) Only the most recent of2 resultswithin the time period is included. Anatomical Region Laterality Modality Pelvis Ultrasound 09/14/2023 9:31 AM BUTCHER HELPER Impressions 09/14/2023 9:34 AM BUTCHER HELPER IMPRESSION: 1. Small uterine leiomyomas with the larger measuring 2.5 cm diameter. 2. 4.1 cm simple appearing right ovarian cyst. 3. Nonvisualization of the left ovary. > Interpreting Provider: Isabell Dillard MD on 09/14/2023 9:34 AM Narrative 09/14/2023 9:34 AM BUTCHER HELPER PROCEDURE: ??US PELVIS W TRANSVAG NON OB DATE/TIME OF EXAM: ??09/14/2023 9:25 AM CLINICAL INFORMATION: None relevant/not provided if blank. Indication: N95.0: Postmenopausal bleeding Additional History: Patient on tamoxifen COMPARISON: October 13, 2021 TECHNIQUE: Real time transabdominal and transvaginal pelvic ultrasound was performed by the public policy mediator with DICOM image capture. Grayscale images were [...] and transvaginal pelvic ultrasound wasperformed by the public policy mediator with DICOM image capture. Grayscale images were [...] CARDIAC RHYTHM STRIP ORDER (06/09/2023 5:11 PM BUTCHER HELPER) Narrative 06/09/2023 5:11 PM BUTCHER HELPER Ordered by an unspecified provider. Scanned Document CARDIAC SERVICES ORD ERABLES * ETT LINE PERFORMABLE (06/08/2023 12:29 PM BUTCHER HELPER) Narrative Shady Tafoya APRN-MIXER ATTENDANT - 06/08/2023 12:29 PM BUTCHER HELPER Shady Tafoya APRN-CRNA ? 06/08/2023 12:30 PM Endotracheal Tube Placement: ? Intubation Event Date/Time: ??06/08/2023 12:28 PM Procedure: intubation ([id number]). Procedure Section: ?? Sedation: under general anesthesia. [...] PAP IG LB+HPV APTIMA (05/27/2023 4:44 PM BUTCHER HELPER) Only the most recent of2 resultswithin the [...] UTERINE CERVIX / Unknown 05/27/2023 4:44 PM BUTCHER HELPER 05/31/2023 Narrative [facility] ACCOUNT BILL - 06/02/2023 10:12 AM BUTCHER HELPER No. of containers..01 ThinPrep Vial Resulting Agency Comment Lab Testing performed at: [employer] ??[facility] [phone] Leatha Gupta MD LAB - PATHOLOGY/CYT OLOGY ORDERABLES [facility] ACCOUNT BILL [address] [place] [address] * HCG URINE QUALITATIVE (02/25/2023 6:32 AM CDT) Only the most recent of2 resultswithin the time period is included. hCG Qualitative Urine Negative Negative 02/25/2023 6:42 AM CDT [facility] Urine URINE / Unknown Collection / Unknown 02/25/2023 6:32 AM CDT 02/25/2023 6:36 AM CDT Kaila Jamison DO LAB - URINALYSIS ORD ERABLES Performing Organization Address [facility] de Phone Number [facility] [address] [place] [address] * (ABNORMAL) STREP A SCREEN DIRECT W RFLX STREP A CULTURE (02/19/2023 4:33 AM CDT) Strep A Rapid Positive(A ) Negative 02/19/2023 4:57 AM CDT [facility] Microbiology ENTIRE THROAT (SURFACE REGION OF NECK) / Unknown Collection / Unknown 02/19/2023 4:33 AM CDT 02/19/2023 4:38 AM CDT Angie Rodriguez MD LAB - MICROBIOLOGY ORDERABLES Performing Organization Address [facility] de Phone Number [facility] [address] [place] [address] * ETT LINE PERFORMABLE (02/18/2023 9:03 AM CDT) Narrative Janell Ghotra APRN-MIXER ATTENDANT - 02/18/2023 9:03 AM CDT Janell Ghotra APRN-MIXER ATTENDANT ? 02/18/2023 ??9:04 AM Endotracheal Tube Placement: ? Patient Location: OR. Intubation Event Date/Time: ??02/18/2023 8:53 AM Procedure: intubation ([id number]). Procedure Section: ?? Sedation: under general anesthesia. [...] or women. ??Falsely low HbA The Kenny Line Tester assay for the measurement of HbA1c is a National Glycohemoglobin Standardization Program (NGSP) certified method. Blood BLOOD SPECIMEN / Unknown 02/05/2023 9:29 AM CDT 02/05/2023 Narrative Resulting Agency Comment Lab Testing performed at: [place] [id number] ?? Humberto [place] [phone] Celina Sifuentes MD LAB - CHEMISTRY O RDTING Performing Organization Address City/[facility] Co de Phone Number [facility] ACCOUNT BILL [address] [place] [address] * (ABNORMAL) LIPID PROFILE (02/05/2023 9:29 AM CDT) Pathologist [facility] Cholesterol 291(H) <200 mg/dL [facility] ACCOUNT BILL Triglycerides 272(H) <150 mg/dL [facility] ACCOUNT BILL HDL Cholesterol 53 >40 mg/dL [facility] ACCOUNT B[facility] VLDL Calculated 54(H) <=30 mg/dL [facility] ACCOUNT BILL LDL Calculated 184(H) <130 mg/dL [facility] ACCOUNT BILL Blood BLOOD SPECIMEN / Unknown 02/05/2023 9:29 AM CDT 02/05/2023 Narrative Resulting Agency Comment Lab Testing performed at: [place] [id number] ?? [place] [phone] Celina Sifuentes MD LAB - CHEMISTRY O RDERAAMBER Performing Organization Address City/[facility]/ZIP Co de Phone Number [facility] ACCOUNT BILL [address] [place] [address] * HIV-1 HIV-2 ANTIBODY + HIV P24 AG PANEL (02/05/2023 9:28 AM CDT) Pathologist [facility] HIV Screen 4th Generation w Reflex Non Reactive Non Reactive [facility] ACCOUNT BILL Comment: HIV Negative HIV-1/HIV-2 antibodies and HIV-1 p24 antigen were NOT detected. There is no laboratory evidence of HIV infection. Blood BLOOD SPECIMEN / Unknown 02/05/2023 9:28 AM CDT 02/05/2023 Narrative Resulting Agency Comment Lab Testing performed at: [facility] [address] ??[place] [phone] Celina Sifuentes MD LAB - CHEMISTRY O RDERABLES Performing Organization Address [facility] Co de Phone Number [facility] ACCOUNT BILL [address] [place] [address] * HEPATITIS B SURFACE ANTIBODY (02/05/2023 9:28 AM CDT) Hepatitis B Virus Surface Antibody Non Reactive [facility] ACCOUNT BILL Comment: ? Non Reactive: Inconsistent with immunity, ? less than 10 mIU/mL ? Reactive: ? Consistent with immunity, ? greater than 9.9 mIU/mL Blood BLOOD SPECIMEN / Unknown 02/05/2023 9:28 AM CDT 02/05/2023 Narrative Resulting Agency Comment Lab Testing performed at: [facility] [address] ??[place] [phone] Celina Sifuentes MD LAB - CHEMISTRY O RDERABLES Performing Organization Address [facility] de Phone Number [facility] ACCOUNT BILL [address] [place] [address] * HEPATITIS B SURFACE ANTIGEN W RFLX CONFIRMATION (02/05/2023 9:28 AM CDT) Hepatitis B Virus Surface Antigen Negative Negative [facility] ACCOUNT BILL Blood BLOOD SPECIMEN / Unknown 02/05/2023 9:28 AM CDT 02/05/2023 Narrative Resulting Agency Comment Lab Testing performed at: [facility] [address] ??[facility] [phone] Celina Sifuentes MD LAB - CHEMISTRY O RDERABLES [facility] ACCOUNT BILL [address] [place] [address] * HEPATITIS C ANTIBODY (02/05/2023 9:28 AM [...] Agency Comment Lab Testing performed at: [facility] [address] ??[facility] [phone] Celina Sifuentes MD LAB - CHEMISTRY O RDERABLES Performing Organization Address City/[facility]/ZIP Co de Phone Number [facility] ACCOUNT BILL [address] [place] [address] * HEPATITIS B CORE ANTIBODY IGM (02/05/2023 9:28 AM CDT) Hepatitis B Core Virus Antibody IgM Negative Negative [facility] ACCOUNT BILL Blood BLOOD SPECIMEN / Unknown 02/05/2023 9:28 AM CDT 02/05/2023 Narrative Resulting Agency Comment Lab Testing performed at: [facility] [place] [address] ??[facility] [phone] Celina Sifuentes MD LAB - CHEMISTRY O RDERABLES [facility] ACCOUNT [place] [address] * (ABNORMAL) MRI BREAST BILAT WWO CONTRAST [...] are included within the tissue cores. ??[A ApmetrixurMark Mini Cork tissue marker clip was then [...] be scheduled to return to the Breast [facility] for biopsy . > Interpreting Provider: Maddi [...] BOTH breasts was performed by a trained public policy mediator and by Dr. Maddi Landeros. BREAST PARENCHYMAL [...] be scheduled to return to the Breast [facility] for biopsy . > Interpreting Provider: Maddi [...] BOTH breasts was performed by a trained public policy mediator and by Dr. Maddi Landeros. BREAST PARENCHYMAL [...] outer quadrant was performed by a trained public policy mediator. In the left breast 2:00 position 8 [...] outer quadrant was performed by a trained public policy mediator. In the left breast 2:00 position 8 [...] DIGITAL IMAGE BILAT G0202 (05/22/2020 12:12 PM BUTCHER HELPER) Only the most recent of2 resultswithin the time period is included. Anatomical Region Laterality Modality Breast Bilateral Mammography 05/22/2020 1:19 PM BUTCHER HELPER Narrative 05/22/2020 1:35 PM BUTCHER HELPER DIGITAL BILATERAL SCREENING MAMMOGRAMS WITH CAD AND [...] if suspicious findings are present clinically. An [employer] Facility. [facility] utilizes [employer] as a reminder system to notify patients of their next recommended mammograms. Edited by Annalise Ford on 05/22/2020 1:25 PM *Reading Radiologist: Monlaisa Duncan on 05/22/2020 at 1:35 PM Leatha [...] ORDERABLES * LIPASE BLOOD (09/07/2013 12:23 PM BUTCHER HELPER) Lipase 147 73 - 393 U/L 09/07/2013 12:47 PM BUTCHER HELPER [facility] Blood BLOOD SPECIMEN / Unknown Lab Venipuncture / Unknown 09/07/2013 12:23 PM BUTCHER HELPER 09/07/2013 12:24 PM BUTCHER HELPER Angeline Olmos MD LAB - CHEMISTRY CHANEL FELIX [facility] [address] [place] [address] * AMYLASE BLOOD (09/07/2013 12:23 PM BUTCHER HELPER) Amylase 49 15 - 115 U/L 09/07/2013 12:47 PM BUTCHER HELPER [facility] Blood BLOOD SPECIMEN / Unknown Lab Venipuncture / Unknown 09/07/2013 12:23 PM BUTCHER HELPER 09/07/2013 12:24 PM BUTCHER HELPER Angeline Olmos MD LAB - CHEMISTRY CHANEL FELIX [facility] [address] [place] [address] Care Teams Training And Development Officer Relationship Specialty Start Date End Date Keisha Pineda PA [address] [place] [phone] PCP - General Physician Fuel Cell Designer 11/15/23 [place] [address] [place] [phone] Surgical Oncologist Surgical Oncology 02/15/23 [place] [address] [facility] [address] [place] [address] Planer Operator/Oncologist Hematology and Oncology 02/16/23
--- OUTSIDE RECORDS SUMMARY | 2024-07-02 05:01 | XMS_ITS | Encounter Summary ---
Author Organization [facility] Address [address] [place] [address] Care Team Providers Care Turning Sander Tender Name Role Phone Naya Leonard Irving DO Unavailable [phone] Bernardo Lizarraga MD Unavailable [phone] Celina Sifuentes MD Primary Care Provider [phone] Encounter Details Date Type Department Care Team [...] st Contact Info) Description 07/19/2024 9:45 AM TRADE SPECIALIST Office Visit [facility] - TRANSCRIPTION MANAGER [address] [place] [address] Leatha Gupta MD [address] [place] [address] 12/11/2024 9:00 AM CDT Office Visit [facility] - Surgery [address] [facility], [address] [place] [address] [place] [address] [address] [facility] [address] [place] [address] 12/11/2024 10:40 AM CDT Office Visit [facility] [address] [facility] [address] [place] [address] [place] [address] [address] [place] [address] documented as of this encounter Visit Diagnoses Not on filedocumented in this encounter Care Teams Turning Sander Tender Relationship Specialty Start Date End Date Celina Sifuentes MD [address] [place] [address] PCP - General Family Medicine 02/16/23 11/14/23 [place] [address] [place] [address] Surgical Oncologist Surgical Oncology 02/15/23 [place] [address] [address] [place] [address] Grades 1 Through 5 Teacher/Oncologist Hematology and Oncology 02/16/23 documented as of this encounter
--- OUTSIDE RECORDS SUMMARY | 2024-07-02 05:01 | XMS_ITS | Referral Summary ---
Author Organization [facility] Address [address] [place] [address] Care Team Providers Care Senior Lead Developer Name Role Phone Naya Leonard DO Unavailable [phone] Bernardo Lizarraga MD Unavailable [phone] Keisha Pineda Primary Care Pr ovider Source Comments [facility],non-owned Affiliates and Associated Physician Practices is amultiple site organization consisting of ambulatory clinics and hospital sitesin [place], [place] and [place]. This disclosure is being madepursuant to the Care Everywhere program and may not contain all information available regarding this patient. Last updated 18.[facility] Encounters Date Type Department Care Team Description 06/29/2024 3:00 PM FRAME WIRER Office Visit [facility] [address] [facility] [address] [place] [address] Bernardo Lizarraga MD Invasive ductal carcinoma of right breast (HCC) (Primary Dx); Hot flashes; Premenopausal patient; Family history of cancer; Diverticulitis of colon 06/05/2024 Telephone [facility] - Surgery [address] [facility], [address] [place] [address] Naya Leonard, DO Med Question 06/04/2024 Travel 06/04/2024 11:36 AM FRAME WIRER - 06/04/2024 4:23 PM FRAME WIRER Emergency ER at [facility] [address] [place] [address] Terra Wagner MD Lower abdominal pain (Primary Dx); Diverticulitis of colon; Calculus of gallbladder without cholecystitis without obstruction Discharge Disposition: Home or Self Care 05/16/2024 2:40 PM FRAME WIRER Office Visit [facility] [address] [facility] [address] [place] [address] Bernardo Lizarraga MD Invasive ductal carcinoma of [...] from 04/19/2023:Stage IA(pT1c, pN0, cM0, G1, ER+, DC+, HER2-, Oncotype DX score: 21) - Signed [...] Comments Blood Pressure 112/72 06/29/2024 3:07 PM FRAME WIRER Pulse 72 06/29/2024 3:07 PM FRAME WIRER Temperature 36.7 ??C (98.1 ??F) 06/29/2024 3:07 PM CS T Respiratory Rate 18 06/29/2024 3:07 PM FRAME WIRER Oxygen Saturation 99% 06/29/2024 3:07 PM FRAME WIRER Inhaled Oxygen Concentration - - Weight 73.6 kg (162 lb 4.8 oz) 06/29/2024 3:07 P M FRAME WIRER Height 163.8 cm (5' 4.5 ) 06/29/2024 3:07 PM FRAME WIRER Body Mass Index 27.43 06/29/2024 3:07 PM FRAME WIRER Functional Status Functional Status Response Date of [...] st Contact Info) Description 07/19/2024 9:45 AM FRAME WIRER Office Visit [facility] - BRICK PICKER [address] [place] [address] Leatha Gupta MD [address] [place] [address] 12/11/2024 9:00 AM CDT Office Visit [facility] - Surgery [address] [facility], [address] [place] [address] [place] [address] [address] 12/11/2024 10:40 AM CDT Office Visit [facility] [address] [place] [address] [address] [place] [address] Bernardo Lizarraga MD [address] [place] [address] Procedures Procedure Name Priority Date/Time Associated Diagnosis Comments CT ABDOMEN PELVIS W CONTRAST STAT 06/04/2024 2:14 PM FRAME WIRER Lower abdominal pain HCG BLOOD QUALITATIVE STAT 06/04/2024 1:20 PM FRAME WIRER LACTIC ACID BLOOD REFLEX TO REPEAT STAT 06/04/2024 1:20 PM FRAME WIRER CBC W AUTO DIFFERENTIAL STAT 06/04/2024 1:20 PM FRAME WIRER COMPREHENSIVE METABOLIC PANEL STAT 06/04/2024 1:20 PM FRAME WIRER FSH + LH PANEL Routine 05/16/2024 3:05 PM FRAME WIRER Invasive ductal carcinoma of right breast (HCC) Hot flashes Premenopausal patient ESTRADIOL Routine 05/16/2024 3:05 PM FRAME WIRER Invasive ductal carcinoma of right breast (HCC) Hot flashes Premenopausal patient ENDOSCOPY, COLON, SCREENING Routine 09/27/2023 9:15 AM CDT Special screening for malignant neoplasms, colon PAP IG LB+HPV APTIMA Routine 05/27/2023 4:44 PM FRAME WIRER Well woman exam LIPID PROFILE Routine 02/05/2023 [...] ABDOMEN PELVIS W CONTRAST (06/04/2024 2:14 PM FRAME WIRER) Anatomical Region Laterality Modality Abdomen, Pelvis Computed Tomogra phy 06/04/2024 2:52 PM FRAME WIRER Impressions 06/04/2024 2:55 PM FRAME WIRER IMPRESSION: 1.Bilateral ovarian follicle/cysts, the largest is [...] 06/04/2024 2:55 PM Narrative 06/04/2024 2:55 PM FRAME WIRER PROCEDURE(s): CT ABDOMEN PELVIS W CONTRAST DATE [...] Felipe Alicea MD on 06/04/2024 2:55 PM Terar Wagner MD CT ORDERABLES * LACTIC ACID BLOOD REFLEX TO REPEAT (06/04/2024 1:20 PM FRAME WIRER) Pathologist [facility] Lactic Acid 0.9 <=2.0 mmol/L 06/04/2024 1:44 PM FRAME WIRER [facility] Blood BLOOD SPECIMEN / Unknown Venipuncture / Unknown 06/04/2024 1:20 PM FRAME WIRER 06/04/2024 1:28 PM FRAME WIRER Terra Wagner MD LAB - CHEMISTRY CHANEL FELIX [facility] Organization Address City/State/ZIP Co de Phone Number [facility] [address] [place] [address] * CBC W AUTO DIFFERENTIAL (06/04/2024 1:20 PM FRAME WIRER) [facility] WBC 8.6 4.0 - 10.7 x10E9/L 06/04/2024 1:31 PM FRAME WIRER [facility] RBC Count 4.99 3.90 - 5.20 x10E12/L 06/04/2024 1:31 PM [facility] Hemoglobin 14.6 11.9 - 15.8 g/dL 06/04/2024 1:31 PM [facility] Hematocrit 43.9 34.8 - 46.1 % 06/04/2024 1:31 PM [facility] MCV 88.0 80.0 - 98.0 fL 06/04/2024 1:31 PM [facility] MCH 29.3 26.7 - 33.6 pg 06/04/2024 1:31 PM [facility] MCHC 33.3 31.7 - 36.3 g/dL 06/04/2024 1:31 PM [facility] RDW-CV 12.2 11.3 - 14.8 % 06/04/2024 1:31 PM [facility] Platelet Count 408 150 - 420 x10E9/L 06/04/2024 1:31 PM [facility] MPV 9.1 7.8 - 11.4 fL 06/04/2024 1:31 PM [facility] Neutrophil % 70.9 41.0 - 74.0 % 06/04/2024 1:31 PM [facility] Lymphocyte % 19.9 17.0 - 47.0 % 06/04/2024 1:31 PM [facility] Monocyte % 5.8 3.0 - 11.0 % 06/04/2024 1:31 PM FRAME WIRER [facility] Eosinophil % 2.3 0.0 - 7.0 % 06/04/2024 1:31 PM FRAME WIRER [facility] Basophil % 0.9 0.0 - 1.6 % 06/04/2024 1:31 PM [facility] Immature Granulocytes % 0.2 0.0 - 1.0 % 06/04/2024 1:31 PM [facility] Neutrophil Absolute 6.12 1.60 - 7.50 x10E9/L 06/04/2024 1:31 PM FRAME WIRER [facility] Lymphocyte Absolute 1.72 1.00 - 4.40 x10E9/L 06/04/2024 1:31 PM [facility] Monocyte Absolute 0.50 0.15 - 1.00 x10E9/L 06/04/2024 1:31 PM [facility] Eosinophil Absolute 0.20 0.00 - 0.60 x10E9/L 06/04/2024 1:31 PM [facility] Basophil Absolute 0.08 0.00 - 0.13 x10E9/L 06/04/2024 1:31 PM [facility] Blood BLOOD SPECIMEN / Unknown Venipuncture / Unknown 06/04/2024 1:20 PM FRAME WIRER 06/04/2024 1:28 PM [facility] Terra Wagner MD LAB - HEMATOLOGY ORD ERABLES [facility] [address] [place] [address] * (ABNORMAL) COMPREHENSIVE METABOLIC PANEL (06/04/2024 1:20 PM FRAME WIRER) [facility] Glucose 89 70 - 99 mg/dL 06/04/2024 1:44 PM [facility] Sodium 145 136 - 145 mmol/L 06/04/2024 1:44 PM [facility] Potassium 4.0 3.5 - 5.1 mmol/L 06/04/2024 1:44 PM [facility] Chloride 108(H) 98 - 107 mmol/L 06/04/2024 1:44 PM [facility] CO2 24 22 - 29 mmol/L 06/04/2024 1:44 PM [facility] Calcium 10.4 8.4 - 10.4 mg/dL 06/04/2024 1:44 PM FRAME WIRER [facility] Anion Gap 13 6 - 16 mmol/L 06/04/2024 1:44 PM FRAME WIRER [facility] BUN 9 7 - 26 mg/dL 06/04/2024 1:44 PM FRAME WIRER [facility] Creatinine 0.86 0.57 - 1.11 mg/dL 06/04/2024 1:44 PM FRAME WIRER [facility] Alkaline Phosphatase 57 40 - 150 U/L 06/04/2024 1:44 PM FRAME WIRER [facility] ALT 31 0 - 55 U/L 06/04/2024 1:44 PM [facility] AST 25 5 - 34 U/L 06/04/2024 1:44 PM [facility] Protein Total 8.7(H) 6.4 - 8.3 gm/dL 06/04/2024 1:44 PM [facility] Albumin 4.1 3.4 - 5.0 gm/dL 06/04/2024 1:44 PM [facility] Bilirubin Total 0.2 0.2 - 1.2 mg/dL 06/04/2024 1:44 PM [facility] eGFR by CKD-EPI 81(L) >=90 mL/min/1.7 3 m2 06/04/2024 1:44 PM [facility] Blood BLOOD SPECIMEN / Unknown Venipuncture / Unknown 06/04/2024 1:20 PM FRAME WIRER 06/04/2024 1:28 PM FRAME WIRER Terra Wagner MD LAB - CHEMISTRY CHANEL FELIX [facility] Organization Address City/State/ZIP Co de Phone Number [facility] [address] [place] [address] * HCG BLOOD QUALITATIVE (06/04/2024 1:20 PM FRAME WIRER) HCG Qual Serum Negative Negative 06/04/2024 1:39 PM FRAME WIRER [facility] Blood BLOOD SPECIMEN / Unknown Venipuncture / Unknown 06/04/2024 1:20 PM FRAME WIRER 06/04/2024 1:28 PM FRAME WIRER Narrative [facility] - 06/04/2024 1:39 PM FRAME WIRER Specimens containing human anti-mouse antibodies may exhibit false positive or false negative results. If qualitative interpretation is inconsistent with clinical evaluation, consider confirmation by an alternative hCG method. Terra Wagner MD LAB - CHEMISTRY CHANEL FELIX [facility] [address] [place] [address] * ESTRADIOL (05/16/2024 3:05 PM FRAME WIRER) Estradiol 234.0 pg/mL [facility] ACCOUNT BILL Comment: ? Adult Female ? Range ?Follicular phase ? 12.5 - 166.0 ?Ovulation phase ?85.8 - 498.0 ?Luteal phase ? 43.8 - 211.0 ?Postmenopausal ? <6.0 - ??54.7 ?1st trimester ? 215.0 - >4300.0 Phong ECLIA methodology Blood BLOOD SPECIMEN / Unknown 05/16/2024 3:05 PM FRAME WIRER 05/16/2024 Comment:Blood Release to pat kathleen Narrative [facility] ACCOUNT BILL - 05/17/2024 1:10 PM FRAME WIRER Performed at: ??01 - [facility] [address] [facility], [place], [place] [id number] Retail Management Trainee: Declan Drake PhD, Phone: ??[phone] Bernardo Lizarraga MD LAB - CHEMISTRY CHANEL FELIX [facility] ACCOUNT BILL [address] [place] [address] * FSH + LH PANEL (05/16/2024 3:05 PM FRAME WIRER) LH 9.1 mIU/mL [facility] ACCOUNT BILL Comment: [...] BLOOD SPECIMEN / Unknown 05/16/2024 3:05 PM FRAME WIRER 05/16/2024 Comment:Blood Release to pat i Narrative [facility] ACCOUNT BILL - 05/17/2024 12:07 AM FRAME WIRER Performed at: ?? - [address], [place], [place] ??[id number] Retail Management Trainee: Dillan Hernandez MD, Phone: ??[phone] Bernardo Lizarraga MD LAB - CHEMISTRY CHANEL FELIX [facility] ACCOUNT BILL [address] [place] [address] * ENDOSCOPY, COLON, SCREENING (09/27/2023 9:15 AM CDT) Report Endoscopy POC _ Patient Name: Betina Coy ? Procedure Date: 09/27/2023 9:15 AM ? Date of : 1970 ?Admit Type: Outpatient Age: 53 ? Gender: Female Attending MD: Adama Holliday MD, [id number] _ Procedure: ? Colonoscopy Indications: ? Screening [...] ? preparation was evaluated using the BBPS ([place] Bowel ? Preparation Scale) with scores of: [...] Procedure Code(s): ? --- Professional --- ? 52561, Colonoscopy, flexible; diagnostic, including collection of ? specimen(s) by brushing or washing, when performed (separate procedure) ? --- Technical --- ? 84418, Colonoscopy, flexible; diagnostic, including collection of ? [...] abscess ? without bleeding CPT copyright 2020 [employer]. All rights reserved. The codes documented in this report are preliminary and upon litigation manager review may be revised to meet current compliance requirements. __ Adama Holliday MD 09/27/2023 10:47:51 AM Number of Addenda: 0 Note Initiated On: 09/27/2023 9:15 AM [facility] 09/27/2023 9:15 AM CDT Narrative Procedure Note Adama Holliday MD - 09/27/2023 10:48 AM CDT Colonoscopy done for screening. Normal colon other than diverticulosis.Repeat in 10 years for screening. Ricky Fuentes MD GI PROCEDURE ORDERA AMBER [facility] [place] [address] * PAP IG LB+HPV APTIMA (05/27/2023 4:44 PM FRAME WIRER) Diagnosis [facility] ACCOUNT BILL Comment:NEGATIVE FOR INTRAEP [...] UTERINE CERVIX / Unknown 05/27/2023 4:44 PM FRAME WIRER 05/31/2023 Narrative [facility] ACCOUNT BILL - 06/02/2023 10:12 AM FRAME WIRER No. of containers..01 ThinPrep Vial Resulting Agency Comment Lab Testing performed at: [address] ??[facility] [id number] Leatha Gupta MD LAB - PATHOLOGY/CYT OLOGY ORDERABLES [facility] ACCOUNT BILL [address] [place] [address] * (ABNORMAL) LIPID PROFILE (02/05/2023 9:29 AM [...] Resulting Agency Comment Lab Testing performed at: [facility] [address] ?? [facility] [id number] Celina Sifuentes MD LAB - CHEMISTRY O RDERABLES [facility] ACCOUNT BILL [address] [place] [address] * HIV-1 HIV-2 ANTIBODY + HIV P24 AG PANEL (02/05/2023 9:28 AM CDT) [facility] HIV Screen 4th Generation w Reflex Non Reactive Non Reactive [facility] ACCOUNT BILL Comment: HIV Negative HIV-1/HIV-2 antibodies and HIV-1 p24 antigen were NOT detected. There is no laboratory evidence of HIV infection. Blood BLOOD SPECIMEN / Unknown 02/05/2023 9:28 AM CDT 02/05/2023 Narrative Resulting Agency Comment Lab Testing performed at: [facility] ??[facility] [id number] Celina Sifuentes MD LAB - CHEMISTRY O RDTING Performing Organization Address City/[facility]/ZIP Co de Phone Number [facility] ACCOUNT BILL [address] [place] [address] * HEPATITIS C ANTIBODY (02/05/2023 9:28 AM CDT) Pathologist [facility] Hepatitis C Antibody Non Reactive Non Reactive [...] Lab Testing performed at: [facility] [address] ??[facility] [id number] Celina Sifuentes MD LAB - CHEMISTRY O RDERABLES [facility] ACCOUNT [place]ILL [place] [address] * (ABNORMAL) MAMMO BILAT DIAGNOSTIC W DONALD [...] be scheduled to return to the [facility] for biopsy . > Interpreting [...] BOTH breasts was performed by a trained commercial tire service technician and by Dr. Maddi Landeros. BREAST PARENCHYMAL [...] Recently Relevant to Health Maintenance Care Teams Senior Lead Developer Relationship Specialty Start Date End Date Keisha Pineda PA [address] [place] [phone] PCP - General Physician Vegetable Thinner 11/15/23 [place] [address] [place] [facility] [place] [address] Surgical Oncologist Surgical Oncology 02/15/23 [place] [address] [facility] [place] [id number] Fruit Ii Farmworker/Oncologist Hematology and Oncology 02/16/23
--- OUTSIDE RECORDS SUMMARY | 2024-07-02 05:01 | XMS_ITS | Encounter Summary ---
Author Organization [facility] Address [address] [facility] [place] [address] Care Team Providers Care Candy Waffle Assembler Name Role Phone Naya Leonard Irving DO Unavailable [phone] Bernardo Lizarraga MD Unavailable [phone] Celina Sifuentes MD Primary Care Provider [phone] Keisha Pineda Primary Care Pr ovider Encounter Details Date Type Department Care Team (Late st Contact Info) Description 04/29/2023 [facility] Outpatient Visit [facility] Care [address] [place] [address] [place] [id number] [place] [address] Social History Tobacco Use Types Packs/Day [...] st Contact Info) Description 07/19/2024 9:45 AM IT ANALYST Office Visit [facility] - EXTRUSION DIE CORRECTOR [address] [place] [address] Leatha Gupta MD [address] [facility] [place] [address] 12/11/2024 9:00 AM CDT Office Visit [facility] - Surgery [address] [facility], [address] [place] [address] [place] [address] [address] 12/11/2024 10:40 AM CDT Office Visit [facility] [address] [place] [address] [address] [place] [address] [place] [address] [facility] [address] [place] [address] documented as of this encounter Visit Diagnoses Not on filedocumented in this encounter Care Teams Candy Waffle Assembler Relationship Specialty Start Date End Date Celina Sifuentes MD [address] [facility] [place] [address] PCP - General Family Medicine 02/16/23 11/14/23 Keisha Pineda PA [address] [place] [id number] PCP - General Physician Piece Dyeing Machine Tender 11/15/23 [place] [address] [address] Surgical Oncologist Surgical Oncology 02/15/23 [place] [address] [place] [phone] Transcribing Operators Supervisor/Oncologist Hematology and Oncology 02/16/23 documented as of this encounter
--- OUTSIDE RECORDS SUMMARY | 2024-07-02 05:01 | XMS_ITS | Encounter Summary ---
Author Organization [facility] Address [address] [place] [address] Care Team Providers Care Grocery Department Manager Name Role Phone Naya Leonard Irivng DO Unavailable [phone] Bernardo Lizarraga MD Unavailable [phone] Celina Sifuentes MD Primary Care Provider [phone] Encounter Details Date Type Department Care Team [...] st Contact Info) Description 07/19/2024 9:45 AM CONVEYOR SYSTEM OPERATOR Office Visit [facility] - COMPUTER RECYCLING WORKER [address] [address] Leatha Gupta MD [address] [place] [place] [address] 12/11/2024 9:00 AM CDT Office Visit [facility] - Surgery [address] [facility], [address] [place] [address] [place] [address] [address] [facility] [address] [place] [address] 12/11/2024 10:40 AM CDT Office Visit [facility] [address] [facility] [address] [place] [address] [place] [address] [facility] [address] [place] [address] documented as of this encounter Visit Diagnoses Not on filedocumented in this encounter Care Teams Grocery Department Manager Relationship Specialty Start Date End Date Celina Sifuentes MD [address] [place] [address] PCP - General Family Medicine 02/16/23 11/14/23 [place] [address] [address] Surgical Oncologist Surgical Oncology 02/15/23 [place] [address] [address] Commercial Sales Consultant/Oncologist Hematology and Oncology 02/16/23 documented as of this encounter
--- OUTSIDE RECORDS SUMMARY | 2024-07-02 05:01 | XMS_ITS | Encounter Summary ---
Author Organization [facility] Address [address] [place] [address] Care Team Providers Care Linen Checker Name Role Phone Naya Leonard Irving DO Unavailable [phone] Bernardo Lizarraga MD Unavailable [phone] Celina Sifuentes MD Primary Care Provider [phone] Reason for Visit * Reason Comments Well Women Exam Encounter Details Date Type Department Care Team (Late st Contact Info) Description 05/27/2023 4:15 PM TATTOO TECHNICIAN Office Visit [facility] - COUNSELING DIRECTOR [address] [place] [address] Leatha Gupta MD [address] [place] [address] Well woman exam (Primary Dx); [...] Comments Blood Pressure 128/74 05/27/2023 4:14 PM TATTOO TECHNICIAN Pulse 69 05/27/2023 4:14 PM TATTOO TECHNICIAN Temperature - - Respiratory Rate - - Oxygen Saturation - - Inhaled Oxygen Concentration - - Weight 83.5 kg (184 lb) 05/27/2023 4:14 PM TATTOO TECHNICIAN Height 163.8 cm (5' 4.5 ) 05/27/2023 4:14 PM TATTOO TECHNICIAN Body Mass Index 31.1 05/27/2023 4:14 PM TATTOO TECHNICIAN documented in this encounter Progress Notes * Kacey Yu - 05/27/2023 4:51 PM CST Preventative HC: pt due for flu vaccine IM Flu vaccine 0.5 ML given in left upper arm OO TECHNICIAN * Leatha Gupta MD - 05/27/2023 4:28 [...] any lesions or abnormalities. Normal Bartholin's and [place]'s. Vagina: Moist, pink rugae without any lesions. [...] orders, medications, patient instructions. Leatha Gupta MD OO TECHNICIAN documented in this encounter Plan of Treatment Upcoming Encounters Date Type Department Care Team (Late st Contact Info) Description 07/19/2024 9:45 AM TATTOO TECHNICIAN Office Visit [facility] - COUNSELING DIRECTOR [facility] [place] [address] Leatha Gupta MD [address] [place] [phone] 12/11/2024 9:00 AM CDT Office Visit [facility] - Surgery [address] [place] [address], [address] [place] [address] [place]acio Naya [place] [address] [place] [address] 12/11/2024 10:40 AM CDT Office Visit [facility] [address] [place] [address] [place] [address] [facility] [address] [place] [address] documented as of this encounter Procedures Procedure Name Priority Date/Time Associated Diagnosis Comments PAP IG LB+HPV APTIMA Routine 05/27/2023 4:44 PM TATTOO TECHNICIAN Well woman exam documented in this encounter Results * PAP IG LB+HPV APTIMA (05/27/2023 4:44 PM TATTOO TECHNICIAN) Diagnosis [facility] ACCOUNT BILL Comment:NEGATIVE FOR INTRAEP [...] UTERINE CERVIX / Unknown 05/27/2023 4:44 PM TATTOO TECHNICIAN 05/31/2023 Narrative [facility] ACCOUNT BILL - 06/02/2023 10:12 AM TATTOO TECHNICIAN No. of containers..01 ThinPrep Vial Resulting Agency Comment [facility]: [facility] [address] [facility] ??[place] [id number] Leatha Gupta MD LAB - PATHOLOGY/CYT OLOGY ORDERABLES [facility] ACCOUNT BILL [address] [place] [address] documented in this encounter Visit Diagnoses Diagnosis Well woman exam- Primary Routine general medical examination at a health care facility Personal history of breast cancer Personal history of malignant neoplasm of breast Immunization due Need for prophylactic vaccination and inoculation against unspecified single disease documented in this encounter Care Teams Linen Checker Relationship Specialty Start Date End Date Celina Sifuentes MD [address] [place] [address] PCP - General Family Medicine 02/16/23 11/14/23 [place] [address] [place] [phone] Surgical Oncologist Surgical Oncology 02/15/23 [place] [address] [place] [phone] Remote Encoding Center Manager/Oncologist Hematology and Oncology 02/16/23 documented as of this encounter
--- OUTSIDE RECORDS SUMMARY | 2024-07-02 05:01 | XMS_ITS | Encounter Summary ---
Author Organization [facility] Address [address] [facility] [place] [address] Care Team Providers Care Crisis Clinician Name Role Phone Naya Leonard DO Unavailable [phone] Bernardo Lizarraga MD Unavailable [phone] Celina Sifuentes MD Primary Care Provider [phone] Reason for Referral * Consultation (Routine) - Closed Specialty Diagnoses / Procedures Referred By Sherie jacobo Referred To Contact Diagnoses Postoperative seroma of subcutaneous tissue after [place] [address] [place] [address] Referral ID Status Reason Start Date Expiration Date V isits Requested Visits Authorized [id number] Closed Specialty Services Required 04/25/2023 04/24/2024 1 1 Reason for Visit * Reason Comments Post-Op Bilat Mat eval serom a Encounter Details Date Type Department Care Team (Latest Contact Info) Description 04/19/2023 1:30 PM CDT Office Visit [facility] - Surgery [address] [place] [address], [address] [place] [address] [place] [address] [place] [address] Postoperative seroma of subcutaneous tissue [...] st Contact Info) Description 07/19/2024 9:45 AM MORNING NANNY Office Visit [facility] - CIRCULAR HEAD SAW OPERATOR [address] [place] [address] Leatha Gupta MD [address] [place] [address] 12/11/2024 9:00 AM CDT Office Visit [facility] - Surgery [address] [facility], [address] [place] [address] [place] [address] [address] [facility] [address] [place] [address] 12/11/2024 10:40 AM CDT Office Visit [facility] [address] [place] [address] [address] [place] [address] [place] [address] [address] [facility] [address] [place] [address] Scheduled Referrals Name Type Priority Associated Diagnoses Orde r Schedule AMB REFERRAL TO PLASTIC SURGERY Outpatient Referral Routine Postoperative seroma of subcutaneous tissue after non-dermatologic procedure 1 Occurrences starting 04/25/2023 until 04/19/2024 documented as of this encounter Visit Diagnoses Diagnosis Postoperative seroma of subcutaneous tissue after non-dermatologic procedure- Primary documented in this encounter Care Teams Crisis Clinician Relationship Specialty Start Date End Date Celina Sifuentes MD [address] [place] [address] PCP - General Family Medicine 02/16/23 11/14/23 [place] [address] [facility] [address] [place] [address] Surgical Oncologist Surgical Oncology 02/15/23 [place] [address] [facility] [address] [place] [address] Psychologist Developmental/Oncologist Hematology and Oncology 02/16/23 documented as of this encounter
--- OUTSIDE RECORDS SUMMARY | 2024-07-02 05:01 | XMS_ITS | Encounter Summary ---
Author Organization [facility] Address [address] [facility] [place] [address] Care Team Providers Care Senior Cyber Intelligence Analyst Name Role Phone HoracioNaya Irving DO Unavailable [phone] Bernardo Lizarraga MD Unavailable [phone] Celina Sifuentes MD Primary Care Provider [phone] Reason for Visit * Auth/Cert (Routine) Specialty Diagnoses / Procedures Referred By Contac t Referred To Contact Diagnoses Malignant neoplasm of right female breast, unspecified estrogen receptor status, unspecified site of breast (HCC) Malignant neoplasm of right female breast, unspecified estrogen receptor status, unspecified site of breast (CMS/HCC) [C50.911] Procedures LA INSERTION BREAST IMPLANT SAME DAY OF MASTECTOMY LA GRFG AUTOL FAT LIPO 50 CC/< LA REVISION ANGELA-IMPLANT CAPSULE BREAST RECONSTRUCTION BREAST / INSERTION BREAST PROSTHESIS GRAFT/TRANSFER FAT CAPSULOTOMY/CAPSULECTOMY BREAST Referral ID Status Reason Start Date Expiration Date Visits Re quested Visits Authorized [id number] 1 1 Encounter Details Date Type Department Care Team (Late st Contact Info) Description 06/08/2023 12:00 PM ATMOSPHERIC TECHNICIAN - 06/08/2023 2:00 PM ATMOSPHERIC TECHNICIAN Surgery [facility] Jose Luis5 Margy Carrasco, [address] [phone] Giacomo Correa MD [address] [place] [phone] TOTAL AUTOLOGOUS BILATERAL BREAST RECONSTRUCTION Surgery Details Date/Time Status Location OR Service Patient Class Case Class Case Type Trauma Case? 06/08/2023 12:00 PM Posted [facility] OPSC OPSC OR 3 Plastics Surgery [...] Comments Blood Pressure 120/74 06/08/2023 10:05 AM ATMOSPHERIC TECHNICIAN Pulse 65 06/08/2023 10:05 AM ATMOSPHERIC TECHNICIAN Temperature 37.6 ??C (99.7 ??F) 06/08/2023 10:[address] Respiratory Rate 12 06/08/2023 10:05 AM ATMOSPHERIC TECHNICIAN Oxygen Saturation 99% 06/08/2023 10:05 AM ATMOSPHERIC TECHNICIAN Inhaled Oxygen Concentration - - Weight 82.8 kg (182 lb 9.6 oz) 06/08/2023 9:55 A M ATMOSPHERIC TECHNICIAN Height 162.6 cm (5' 4 ) 06/08/2023 9:55 AM ATMOSPHERIC TECHNICIAN Body Mass Index 31.34 06/08/2023 9:55 AM ATMOSPHERIC TECHNICIAN documented in this encounter Functional Status Functional [...] noted Giacomo Correa MD 06/08/2023 8:04 AM SPHERIC TECHNICIAN * Giacomo Correa MD - 06/08/2023 12:00 [...] flap, prosthetic reconstructive methods including the tissue military technician/implant and the combination procedures such as the LD flap with implant placement. We discussed the benefits and risks of each method as well as additional options such as doing nothing or free/probation manager flaps. I also had a long discussion [...] the patient. The patient was given the [facility] rtunity to ask questions. - Scar Revision [...] insert signature - Signature Giacomo Correa MD SPHERIC TECHNICIAN documented in this encounter Nursing Notes * Hui Liang RN - 06/01/2023 11:37 AM CST Pre-Op phone call completed. Patient to arrive at [facility] for surgery on 06/08 1000 Patient instructed no solids/food after midnight (including no gum, candy, or mints). Patient instructed to take a cleansing shower with soap the night before surgery, change the bed linens, and then take another cleansing shower with soap the morning of surgery. SPHERIC TECHNICIAN documented in this encounter OR Notes * [...] Role: * Giacomo Correa MD - Primary Digital Imaging Specialist(s): Otilia Kirby Anesthesia Type: general ETT Complications: [...] 06/08/2023 1341 Implant(s): None Giacomo Correa MD SPHERIC TECHNICIAN * Operative - Giacomo Correa MD - 06/08/2023 12:00 PM CST BREAST RECONSTRUCTION [facility] Surgery Operative Note PATIENT NAME: Betina Coy DATE OF :1970 DATE OF OPERATION:06.08.23 SURGEON:Giacomo Correa MD ENGLISH COMPOSITION INSTRUCTOR: Otilia Kirby PREOPERATIVE DIAGNOSIS: Breast cancer reconstruction [...] to be dicharged home with follow-up at [facility] tomorrow. Giacomo Correa MD [facility] Plastic Surgery SPHERIC TECHNICIAN documented in this encounter Miscellaneous Notes * Clinical References AVS - Betina Shah RN - 06/08/2023 10:35 AM ATMOSPHERIC TECHNICIAN Images from the original note were not included. [id number] Scopolamine Transdermal System Brands: Transderm Scop Uses [...] about all your medicines. Include prescription and xuoy-fgv-pdkvmlkxgopxbkso, vitamins, and herbal medicines. To relieve dry [...] you have any questions about this medicine. https://[email or web address].ni.[email or web address] IMPORTANT NOTE: This document tells you briefly how to take your medicine, but it does not tell youall there is to know about it. Your doctor or pharmacist may give you other documents about your medicine. Please talk to them if you have any questions. Always follow their advice. There is a more complete description of this medicine available in [place]. Scan this code on your smartphone or tablet or use the web address below. You can also ask your pharmacist for a printout. If you have any questions, please ask your pharmacist. The display and use of this drug information is subject to Terms of Use. Copyright(c) 2022 [employer]. ?? 8714-6153 The [employer]. All rights reserved. This information is not intended as a substitute for professional medical care. Always follow your healthcare professional's instructions. SPHERIC TECHNICIAN documented in this encounter Plan of Treatment Upcoming Encounters Date Type Department Care Team (Late st Contact Info) Description 07/19/2024 9:45 AM ATMOSPHERIC TECHNICIAN Office Visit [facility] - COMPRESSOR OPERATOR [address] [place] [address] Leatha Gupta MD [address] [place] [address] 12/11/2024 9:00 AM CDT Office Visit [facility] - Surgery [address] [place] [address], [address] [address] Naya Leonard DO [facility] [address] [address] 12/11/2024 10:40 AM CDT Office Visit [facility] [address] [place] [address] Bernardo Lizarraga MD [address] [place], [place] [address] [address] documented as of this encounter Procedures Procedure Name Priority Date/Time Associated Diagnosis Comments CARDIAC RHYTHM STRIP ORDER 06/09/2023 5:11 PM ATMOSPHERIC TECHNICIAN PATHOLOGY TISSUE EXAM (STL) Routine 06/08/2023 1:41 PM ATMOSPHERIC TECHNICIAN Malignant neoplasm of right female breast, unspecified estrogen receptor status, unspecified site of breast (HCC) LA GRFG AUTOL FAT LIPO 50 CC/< 06/08/2023 12:12 PM ATMOSPHERIC TECHNICIAN Malignant neoplasm of right female breast, unspecified estrogen receptor status, unspecified site of breast (HCC) LA INSERTION BREAST IMPLANT SAME DAY OF MASTECTOMY 06/08/2023 12:12 PM ATMOSPHERIC TECHNICIAN Malignant neoplasm of right female breast, unspecified estrogen receptor status, unspecified site of breast (HCC) documented in this encounter Results * CARDIAC RHYTHM STRIP ORDER (06/09/2023 5:11 PM ATMOSPHERIC TECHNICIAN) Narrative 06/09/2023 5:11 PM ATMOSPHERIC TECHNICIAN Ordered by an unspecified provider. Scanned Document CARDIAC SERVICES ORD ERABLES * PATHOLOGY TISSUE EXAM (STL) (06/08/2023 1:41 PM ATMOSPHERIC TECHNICIAN) Case Report Surgical Pathology Report ? Case: [id number] ? Authorizing Provider: ??Giacomo Correa MD ? Collected: ? 06/08/2023 01:41 PM ? Ordering Location: ? [facility] ??Received: ?06/09/2023 09:00 AM ? - [facility] ? Center ? Pathologist: ? Eber Ordonez MD ? Specimens: ?? A) - Breast Capsule, left breast capsule ? B) - Breast Capsule, right breast capsule ? 06/10/2023 2:42 PM [facility] Final Diagnosis Skin and breast implant capsule, left, excision: Cutaneous scar Fibrotic implant capsule with fat necrosis and foreign body reaction Negative for malignancy Skin and breast implant capsule, right, excision: Cutaneous scar Fibrotic implant capsule with foreign body reaction Negative for malignancy 06/10/2023 2:42 PM [facility] Clinical History PREOPERATIVE DIAGNOSIS: Breast cancer reconstruction revision POSTOPERATIVE DIAGNOSIS: same -status post mastectomies for bilateral breast carcinoma SURGERY PERFORMED: Bilateral Breast Reconstruction Delayed Local tissue rearrangement 06/10/2023 2:42 PM [facility] Gross Description There are 2 [...] tissue with few areas of fat necrosis. Anglesmith sections are submitted in A1 -2. Specimen [...] tissue and few areas of fat necrosis. Anglesmith sections are submitted in B1 -3. 06/10/2023 2:42 PM [facility] Microscopic Description Microscopic examination corroborates the diagnosis. 06/10/2023 2:42 PM [facility] Performed By [facility] at [facility], [address] [place] [address]. [id number]. 06/10/2023 2:42 PM [facility] Disclaimer All histochemical and/or immunohistochemical results are interpreted with controls that demonstrate appropriate staining reactions before reporting results. Note on use of immunocytochemistry reagents: This test was developed and its performance characteristic determined by [facility], Department of Laboratory [...] complexity testing. The performance characteristics of the IHC/LAESIA assays have been validated on formalin-fixed paraffin embedded tissues only. The assays have not been validated on decalcified tissues. Results should be interpreted with caution. 06/10/2023 2:42 PM [facility] Embedded Images 06/10/2023 2:42 PM [facility] Pathology/Cytology CAPSULAR BREAST CONTRACTURE OF BREAST IMPLANT / Unknown 06/08/2023 1:41 PM ATMOSPHERIC TECHNICIAN 06/09/2023 9:00 AM ATMOSPHERIC TECHNICIAN Comment:Pre-op diagnosis: Malignant neoplasm of right female breast, unspecified estrogen receptor status, unspecified site of breast (CMS/HCC) [C50.911] Miscellaneous samples (specimen) CAPSULAR BREAST CONTRACTURE OF BREAST IMPLANT / Unknown 06/08/2023 1:41 PM ATMOSPHERIC TECHNICIAN 06/09/2023 9:00 AM ATMOSPHERIC TECHNICIAN Comment:Pre-op diagnosis: Malignant neoplasm of right female breast, unspecified estrogen receptor status, unspecified site of breast (CMS/HCC) [C50.911] Giacomo Correa MD LAB - PATHOLOGY/CYTO LOGY ORDERABLES [facility] [address] [place] [address] documented in this encounter Visit Diagnoses Diagnosis [...] Intra-op $ New Bag/Syringe 06/08/2023 1:29 PM ATMOSPHERIC TECHNICIAN 1,000 mL BUPivacaine 0.5% - EPINEPHrine 1:200,000 (PF) injection PRN, Starting on Wed06/08/23 at 1329, Until Wed06/08/23 at 1459, Intra-op $ Given 06/08/2023 1:29 PM ATMOSPHERIC TECHNICIAN 10 mL BUPivacaine liposome (Exparel) 1.3 % injection PRN, Starting on Wed06/08/23 at 1330, Until Wed06/08/23 at 1459, Intra-op $ Given 06/08/2023 1:30 PM ATMOSPHERIC TECHNICIAN 20 mL ceFAZolin (Ancef) 2 g in 0.9% NaCl IV 50 mL IVPB 2 g, at 100 mL/hr, Intravenous, PRE-OP MULTIPLE, Starting on Wed06/08/23 at 0949, Until Wed06/08/23 at 1804, Administer 30 minutes prior to surgical incision. May redose in 3 hours if surgical incision not yet closed., Indication for anti-infective therapy: Surgical prophylaxis, Pre-op $ New Bag/Syringe 06/08/2023 12:20 PM ATMOSPHERIC TECHNICIAN 2 g 100 mL/hr famotidine (Pepcid) injection 20 mg 20 mg, Intravenous, PRE-OP ONCE, 1 dose, On Wed06/08/23 at 1045, Dilute with 0.9% NaCl, D5W solution, or SWI to a volume of 5 to 10 mL and administer over at least 2 minutes., Pre-op $ Given 06/08/2023 10:32 AM ATMOSPHERIC TECHNICIAN 20 mg fentaNYL (PF) (Sublimaze) injection 50 [...] MAR., PACU $ Given 06/08/2023 3:49 PM ATMOSPHERIC TECHNICIAN 50 mcg $ Given 06/08/2023 3:41 PM ATMOSPHERIC TECHNICIAN 50 mcg HYDROmorphone (Dilaudid) injection 0.5 mg [...] Pre-op $ New Bag/Syringe 06/08/2023 2:27 PM ATMOSPHERIC TECHNICIAN $ New Bag/Syringe 06/08/2023 10:10 AM ATMOSPHERIC TECHNICIAN 100 m L/hr lactated ringers infusion at 125 mL/hr, Intravenous, CONTINUOUS, Starting on Wed06/08/23 at 1400, Until Wed06/08/23 at 1804, PACU lidocaine PF (Xylocaine MPF) 1 % 100 mL, EPINEPHrine 1 MG/ML 1 mL in 0.9% NaCl IV 1,101 mL solution PRN, Starting on Wed06/08/23 at 1332, Until Wed06/08/23 at 1459, Intra-op $ Given 06/08/2023 1:32 PM ATMOSPHERIC TECHNICIAN lidocaine PF (Xylocaine MPF) 1 % injection [...] 72 hours. $ Applied 06/08/2023 10:32 AM ATMOSPHERIC TECHNICIAN 1 patch Behind Left Ear scopolamine patch placement confirmation Transdermal, 2 TIMES DAILY, First dose on Wed06/08/23 at 1045, Until Discontinued, Patient has a patch to be confirmed on transition to inpatient and 2 times daily., Pre-op tranexamic acid (Cyklokapron) injection PRN, Starting on Wed06/08/23 at 1330, Until Wed06/08/23 at 1459, Intra-op $ Given 06/08/2023 1:30 PM ATMOSPHERIC TECHNICIAN 4,000 mg documented in this encounter Active and Recently Administered Medications Times are shown in ATMOSPHERIC TECHNICIAN. Scheduled Medication Order 06/06/2023 06/07/2023 06/08/2023 ceFAZolin [...] documented in this encounter Care Teams Senior Cyber Intelligence Analyst Relationship Specialty Start Date End Date Celina Sifuentes MD [address] [place] [phone] PCP - General Family Medicine 02/16/23 11/14/23 [place] [address] [place] [phone] Surgical Oncologist Surgical Oncology 02/15/23 [place] [address] [place] [phone] Legal Office Administrator/Oncologist Hematology and Oncology 02/16/23 documented as of this encounter
--- OUTSIDE RECORDS SUMMARY | 2024-07-02 05:01 | XMS_ITS | Encounter Summary ---
Author Organization [facility] Address [address] [place] [address] Care Team Providers Care Hand Sewer Name Role Phone Naya Leonard [place] DO Unavailable [phone] Bernardo Lizarraga MD Unavailable [phone] Keisha Pineda Primary Care Pr ovider [...] st Contact Info) Description 07/19/2024 9:45 AM LOSS PREVENTION/SAFETY DISTRICT MANAGER Office Visit [facility] - CYBER OPERATOR [address] [place] [address] Leatha Gupta MD [address] [place] [address] 12/11/2024 9:00 AM CDT Office Visit [facility] - Surgery [address] [facility], [address] [place] [address] [place] [address] [place] [address] 12/11/2024 10:40 AM CDT Office Visit [facility] Cancer Care [address] [facility] [address] [place] [address] [place] [address] [place] [address] documented as of this encounter Visit Diagnoses Not on filedocumented in this encounter Care Teams Hand Sewer Relationship Specialty Start Date End Date Keisha Pineda PA [address] [place] [address] PCP - General Physician Edge Stitcher 11/15/23 [place] [address] [place] [address] Surgical Oncologist Surgical Oncology 02/15/23 [place] [address] [place] [address] Placement Assistant/Oncologist Hematology and Oncology 02/16/23 documented as of this encounter
--- OUTSIDE RECORDS SUMMARY | 2024-07-02 05:01 | XMS_ITS | Encounter Summary ---
Author Organization [facility] Address [address] [place] [address] Care Team Providers Care Improvement Intern Name Role Phone HoracioNaya Irving DO Unavailable Bernardo Lizarraga MD Unavailable [phone] Keisha Pineda Primary Care Pr ovider Reason for Visit * Reason Comments Follow-up Encounter Details Date Type Department Care Team (Late st Contact Info) Description 05/16/2024 2:40 PM VENDING SUPERVISOR [facility] Visit [facility] [address] [place] [address] [place] [address] [address] Invasive ductal carcinoma of right [...] Comments Blood Pressure 126/74 05/16/2024 2:48 PM VENDING SUPERVISOR Pulse 74 05/16/2024 2:48 PM VENDING SUPERVISOR Temperature 36.6 ??C (97.9 ??F) 05/16/2024 2:48 PM CS T Respiratory Rate 18 05/16/2024 2:48 PM VENDING SUPERVISOR Oxygen Saturation 100% 05/16/2024 2:48 PM VENDING SUPERVISOR Inhaled Oxygen Concentration - - Weight 74.7 kg (164 lb 9.6 oz) 05/16/2024 2:48 P M VENDING SUPERVISOR Height 163.8 cm (5' 4.5 ) 05/16/2024 2:48 PM VENDING SUPERVISOR Body Mass Index 27.82 05/16/2024 2:48 PM VENDING SUPERVISOR documented in this encounter Functional Status Functional [...] Bernardo Lizarraga MD - 05/16/2024 2:51 PM VENDING SUPERVISOR Unclear if tamoxfen causing symptoms, certainly could be Hold tamoxifen until next visit Check labs to check if patient in menopause - Estradiol, FSH, LH Fat necrosis was removed, no evidence of cancer RTC 1 month as check in ING SUPERVISOR documented in this encounter Progress Notes * Bernardo Lizarraga MD - 05/16/2024 3:40 PM CST [facility] Follow Up Assessment: 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 Grade 1, Ki-67 3%. Bilateral [...] Bernardo Lizarraga MD - Hematology/Oncology Available on [employer] chat during the week Cell# (providers only): [phone] Oncology History: 02/2023 - Diagnosed right breast IDC - ER/ND+, Her2- (1+) - Grade 1, Ki-67 3% 02/2023 - Bilateral mastectomy (Horacio) - [id number] Stage IA - 1.5cm, 0/1 nodes positive. [...] Lizarraga MD - Hematology/Oncology Cell# (providers only) [phone] ING SUPERVISOR documented in this encounter Plan of Treatment Upcoming Encounters Date Type Department Care Team (Late st Contact Info) Description 07/19/2024 9:45 AM VENDING SUPERVISOR Office Visit [facility] - HOLLOW HANDLE BENCH WORKER [address] [address] Leatha Gupta MD [address] [place] [address] 12/11/2024 9:00 AM CDT Office Visit [facility] - Surgery [address] [facility], [address] [place] [address] [place] [address] [place] [address] 12/11/2024 10:40 AM CDT [facility] Visit [facility] [address] [facility] [address] [place] [address] [place] [address] [facility] [address] [place] [address] documented as of this encounter Procedures Procedure Name Priority Date/Time Associated Diagnosis Comments ESTRADIOL Routine 05/16/2024 3:05 PM VENDING SUPERVISOR Invasive ductal carcinoma of right breast (HCC) Hot flashes Premenopausal patient FSH + LH PANEL Routine 05/16/2024 3:05 PM VENDING SUPERVISOR Invasive ductal carcinoma of right breast (HCC) Hot flashes Premenopausal patient documented in this encounter Results * FSH + LH PANEL (05/16/2024 3:05 PM VENDING SUPERVISOR) LH 9.1 mIU/mL [facility] ACCOUNT BILL Comment: [...] BLOOD SPECIMEN / Unknown 05/16/2024 3:05 PM VENDING SUPERVISOR 05/16/2024 Comment:Blood Release to [facility] i Narrative [facility] ACCOUNT BILL - 05/17/2024 12:07 AM VENDING SUPERVISOR Performed at: ??01 - [address] ??[id number] Count Room Clerk: Dillan Hernandez MD, Phone: ??[phone] Bernardo Lizarraga MD LAB - CHEMISTRY CHANEL FELIX [facility] ACCOUNT BILL [address] [place] [address] * ESTRADIOL (05/16/2024 3:05 PM VENDING SUPERVISOR) Estradiol 234.0 pg/mL [facility] ACCOUNT BILL Comment: ? Adult Female ? Range ?Follicular phase ? 12.5 - 166.0 ?Ovulation phase ?85.8 - 498.0 ?Luteal phase ? 43.8 - 211.0 ?Postmenopausal ? <6.0 - ??54.7 ?1st trimester ? 215.0 - >4300.0 Phong ECLIA methodology Blood BLOOD SPECIMEN / Unknown 05/16/2024 3:05 PM VENDING SUPERVISOR 05/16/2024 Comment:Blood Release to pat kathleen Narrative [facility] ACCOUNT BILL - 05/17/2024 1:10 PM VENDING SUPERVISOR Performed at: ??01 - [facility] [address] [place], [place] ??[id number] Count Room Clerk: Declan Drake PhD, Phone: ??[phone] Bernardo Lizarraga MD LAB - CHEMISTRY CHANEL FELIX [facility] ACCOUNT BILL [address] [place] [address] documented in this encounter Visit Diagnoses Diagnosis Invasive ductal carcinoma of right breast (HCC)- Primary Hot flashes Symptomatic menopausal or female climacteric states Premenopausal patient Symptomatic menopausal or female climacteric states documented in this encounter Care Teams Improvement Intern Relationship Specialty Start Date End Date Keisha Pineda PA [address] [place] [address] PCP - General Physician Bulldozer Operator 11/15/23 [place] [address] [place] [address] Surgical Oncologist Surgical Oncology 02/15/23 [place] [address] [place] [address] Hay Stacker Operator/Oncologist Hematology and Oncology 02/16/23 documented as of this encounter
--- OUTSIDE RECORDS SUMMARY | 2024-07-02 05:01 | XMS_ITS | Encounter Summary ---
Author Organization [facility] Address [address] [place] [address] Care Team Providers Care Candle Extrusion Machine Operator Name Role Phone Naya Leonard Irving DO Unavailable Bernardo Lizarraga MD Unavailable [phone] Keisha Pineda Primary Care Pr ovider Reason for Visit * Auth/Cert (Routine) Specialty Diagnoses / Procedures Referred By Sherie jacobo Referred To Contact Diagnoses Mass in chest Mass in chest [R22.2] Procedures OH EXC SKIN BENIG 3.1-4CM TRUNK,ARM,LEG EXCISION LESION TRUNK CHEST/AXILLA Referral ID Status Reason Start Date Expiration Date Visits Re quested Visits Authorized [id number] 1 1 Encounter Details Date Type Department Care Team (Late st Contact Info) Description 11/30/2023 11:00 AM CDT Anesthesia Event [facility] - General Surgery [address] [facility], [address] [place] [address] Ricarda Zarate DO [address] [facility] [address] [place] [address] Anesthesia Record Procedure Summary Procedure Name Responsible [...] this encounter Progress Notes * Sheyla Mckeon, BENJA-SECONDS INSPECTOR - 11/30/2023 11:55 AM CDT ANESTHESIA POSTOP [...] Plan was discussed with the anesthesiologist and SECONDS INSPECTOR. BMI, Height, Weight Tobacco History Estimated body [...] RIGHT BIOPSY 01/06/2023 [facility] US FRONT MAN Status: Patient's last menstrual period was 01/23/2022 [...] Anesthesia Transfer of Care - Sheyla Mckeon APRN-SECONDS INSPECTOR - 11/30/2023 11:54 AM CDT ANESTHESIA TRANSFER [...] POST-OP MULTIPLE 11/30/23 1142 11/30/23 1142 HYDROcodone-acetaminophen ([place]) 5-325 MG tablet 1 tablet -- Verified [...] st Contact Info) Description 07/19/2024 9:45 AM BLASTING ENTRY SPECIALIST Office Visit [facility] - FRONT MAN [address] [place] [address] Leatha Gupta MD [address] [place] [address] 12/11/2024 9:00 AM CDT Office Visit [facility] - Surgery [address] [facility], [address] [place] [address] [place] [address] [place] [address] 12/11/2024 10:40 AM CDT Office Visit [facility] [address] [place] [address] [address] [place] [address] [place] [address] [place] [address] documented as of this encounter Visit [...] mg documented in this encounter Care Teams Candle Extrusion Machine Operator Relationship Specialty Start Date End Date Keisha Pineda PA [address] [place] [address] PCP - General Physician Superintendent Marine 11/15/23 [place] [address] [facility] [place] [phone] Surgical Oncologist Surgical Oncology 02/15/23 [place] [address] [place] [phone] Museum Educator/Oncologist Hematology and Oncology 02/16/23 documented as of this encounter
--- OUTSIDE RECORDS SUMMARY | 2024-07-02 05:01 | XMS_ITS | Encounter Summary ---
Author Organization [facility] Address [address] [place] [address] Care Team Providers Care Crown Attacher Name Role Phone Naya Leonard Irving DO Unavailable [phone] Bernardo Lizarraga MD Unavailable Celina Sifuentes MD Primary Care Provider [phone] Reason for Visit * Auth/Cert (Routine) Specialty Diagnoses / Procedures Referred By Contac t Referred To Contact Procedures FL COLOREC CANC SCRN,SCR COLONOSCOPY+BE COLONOSCOPY SCREEN Referral ID Status Reason Start Date Expiration Date Visits Re quested Visits Authorized [id number] 1 1 Encounter Details Date Type Department Care Team (Late st Contact Info) Description 09/27/2023 10:07 AM CDT Anesthesia Event [facility] - Endoscopy Services [address] [place] [address] Ritchie Craven MD [address] [place] [address] [address] [place] [address] Anesthesia Record Procedure Summary Procedure [...] this encounter Progress Notes * Shahab Israel, STOVE INSTALLER-MANAGER RISK MANAGEMENT - 09/27/2023 10:51 AM CDT ANESTHESIA POSTOP [...] STEREOTACTIC RIGHT BIOPSY 01/06/2023 [facility] ??? MASTECTOMY, SIMPLE Bilateral 02/18/2023 Bilateral; RIGHT [...] BIOPSY 01/06/2023 [facility] US CLINICAL DIETICIAN Status: Patient's last menstrual period was 01/23/2023 [...] Anesthesia Transfer of Care - Shahab Israel, STOVE INSTALLER-MANAGER RISK MANAGEMENT - 09/27/2023 10:50 AM CDT ANESTHESIA TRANSFER [...] st Contact Info) Description 07/19/2024 9:45 AM DOCTOR OF AUDIOLOGY Office Visit [facility] - CLINICAL DIETICIAN [address] [place] [address] Leatha Gupta MD [facility] [place] [address] 12/11/2024 9:00 AM CDT Office Visit [facility] - Surgery [address] [place] [address], [address] [address] [place] [address] [address] 12/11/2024 10:40 AM CDT Office Visit [facility] [address] [place] [address] [place] [address] [address] [address] documented as of this encounter [...] CDT documented in this encounter Care Teams Crown Attacher Relationship Specialty Start Date End Date Celina Sifuentes MD [address] [place] [address] PCP - General Family Medicine 02/16/23 11/14/23 [place] [address] [address] [place] [phone] Surgical Oncologist Surgical Oncology 02/15/23 [place] [address] [address] [phone] Water Well Driller/Oncologist Hematology and Oncology 02/16/23 documented as of this encounter
--- OUTSIDE RECORDS SUMMARY | 2024-07-02 05:01 | XMS_ITS | Encounter Summary ---
Author Organization [facility] Address [address] [place] [address] Care Team Providers Care Institutional Aide Name Role Phone Naya Leonard DO Unavailable [phone] Bernardo Lizarraga MD Unavailable [phone] Keisha Pineda Primary Care Pr ovider Reason for Visit * Auth/Cert (Routine) Specialty Diagnoses / Procedures Referred By Sherie jacobo Referred To Contact Diagnoses Mass in chest Mass in chest [R22.2] Procedures MT EXC SKIN BENIG 3.1-4CM TRUNK,ARM,LEG EXCISION LESION TRUNK CHEST/AXILLA Referral ID Status Reason Start Date Expiration Date Visits Re quested Visits Authorized [id number] 1 1 Encounter Details Date Type Department Care Team (Late st Contact Info) Description 11/30/2023 10:50 AM CDT - 11/30/2023 11:40 AM CDT Surgery [facility] - General Surgery [address] [place] [address], [address] [place] [address] [place] [address] [facility] [address] [place] [address] EXCISION LEFT CHEST WALL MASS [...] Refills Start Date End Date HYDROcodone-acetamino phen ([place]) 5-325 MG tabletIndications:Inv asive ductal carcinoma of [...] completed. Naya Leonard DO Source Note - aNya Leonard DO - 11/29/2023 4:10 PM CDT [...] o'clock position revealed an infiltrating ductal carcinoma ER/MT positive, HER2/brittany negative with low KI 67. The calcifications revealedDCIS, ER/MT positive. Patient underwent breast MRI which showed [...] BOTH breasts was performed by a trained delivery engineer and by Dr. Maddi Landeros. BREAST PARENCHYMAL [...] be scheduled to return to the [facility] for biopsy . 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 The calcifications revealedDCIS, ER/MT positive. Patient underwent breast MRI which showed [...] Right 01/06/2023 US BREAST RIGHT BIOPSY 01/06/2023 [facility] US Outpatient Medications Marked [...] BOTH breasts was performed by a trained delivery engineer and by Dr. Maddi Landeros. BREAST PARENCHYMAL [...] will be scheduled to return to the [facility] for biopsy . 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 [place] [address] [place] [address] [place] [address] documented as of this encounter Procedures Procedure Name Priority Date/Time Associated Diagnosis Comments PATHOLOGY TISSUE EXAM (STL) Routine 11/30/2023 11:34 AM CDT Mass in chest MT EXC SKIN BENIG 3.1-4CM TRUNK,ARM,LEG 11/30/2023 10:50 AM CDT Mass in chest HCG URINE QUAL POCT NOTIFICATION Routine 11/30/2023 10:30 AM CDT Preop examination HCG URINE QUALITATIVE - POCT (IP) INTERFACED Routine 11/30/2023 9:32 AM CDT documented in this encounter Results * PATHOLOGY TISSUE EXAM (STL) (11/30/2023 11:34 AM CDT) Case Report Surgical Pathology Report ? Case: [id number] ? Authorizing Provider: ??Naya Leonard, DO ? Collected: ? 11/30/2023 11:34 AM ? Ordering Location: ? [facility] - Received: ?11/30/2023 01:51 PM ? General Surgery ? Pathologist: ? Sarah Blount MD ? Specimen: ?Chest Mass, chest wall mass ? 12/02/2023 8:47 AM T [facility] Final Diagnosis Left chest wall mass, excision: -- Adipose connective tissue with fat necrosis and foreign body reaction 12/02/2023 8:[address] [facility] Gross Description Received in formalin in a single container, labeled Betina Coy, left chest wall mass, are two fragments of a disrupted fibromembranous tissue fragment, measuring 2.5 x 2.2 x 1.2 cm in aggregate. Sections show a gritty yellow-hurtado adipose tissue. Sole Scraper sections are submitted in cassette A1. /tc 12/02/2023 8:47 AM T [facility] Microscopic Description Microscopic examination substantiates the above cited diagnosis. 12/02/2023 8:[address] [facility] Disclaimer All histochemical and/or immunohistochemical results are interpreted with controls that demonstrate appropriate staining reactions before reporting results. Note on use of immunocytochemistry reagents: This test was developed and its performance characteristic determined by [facility], Department of Laboratory Medicine. It has [...] interpreted with caution. 12/02/2023 8:47 AM CDT [facility] Embedded Images 12/02/2023 8:47 AM CDT [facility] Pathology/Cytolo gy MASS OF CHEST WALL / Unknown 11/30/2023 11:34 AM CDT 11/30/2023 1:51 PM CDT Comment:Pre-op diagnosis: Mass in chest [R22.2] Naya Leonard DO LAB - PATHOLOGY/CYTO LOGY ORDERABLES Performing Organization Address City/[facility] Co de Phone Number [facility] [address] [place] [address] * HCG URINE QUAL POCT NOTIFICATION (11/30/2023 10:30 AM CDT) Comment Notification Label Only - See Separate Report 11/30/2023 10:30 AM CDT [facility] Urine URINE / Unknown 9:29 AM CDT Ricarda Zarate DO LAB - URINALYSIS ORD ERABLES Performing Organization Address [facility] Co de Phone Number [facility] [address] [place] [address] * HCG URINE QUALITATIVE - POCT (IP) INTERFACED (11/30/2023 9:32 AM CDT) HCG Qual Urine Negative Negative 11/30/2023 9:38 AM CDT [facility] Urine URINE / Unknown 11/30/2023 9 :32 AM CDT 11/30/2023 9:38 AM CDT Naya Leonard DO LAB - POINT OF CARE ORDERABLES [facility] [address] [place] [phone] documented in this encounter Visit Diagnoses Diagnosis [...] mL documented in this encounter Care Teams Institutional Aide Relationship Specialty Start Date End Date Keisha Pineda PA [address] [place] [phone] PCP - General Physician Change Over 11/15/23 [place] [address] [address] [place] [address] Surgical Oncologist Surgical Oncology 02/15/23 [place] [address] [address] [place] [address] Kiss Setter Hand/Oncologist Hematology and Oncology 02/16/23 documented as of this encounter
--- OUTSIDE RECORDS SUMMARY | 2024-07-02 05:01 | XMS_ITS | Encounter Summary ---
Author Organization [facility] Address [address] [facility] [place] [address] Care Team Providers Care Wirer Street Light Name Role Phone Naya Leonard Irving GALLO Unavailable [phone] Bernardo Lizarraga MD Unavailable [phone] Celina Sifuentes MD Primary Care Provider [phone] Reason for Referral * Radiology Services (Routine) - Pending Review Specialty Diagnoses / Procedures Referred By Contac t Referred To Contact Ultrasound Diagnoses PMB (postmenopausal bleeding) Procedures US PELVIS W TRANSVAG NON Leatha Sterling MD [address] [place] [address] [facility] [address] [address] Referral ID Status Reason Start Date Expiration Date V isits Requested Visits Authorized [id number] Pending Review 09/13/2023 09/12/2024 1 1 MOVER Reason for Visit * Radiology Services (Routine) - Pending Review Specialty Diagnoses / Procedures Referred By Contac t Referred To Contact Ultrasound Diagnoses PMB (postmenopausal bleeding) Procedures US PELVIS W TRANSVAG NON OB Leatha Gupta MD [address] [place] [address] [facility] [address] [facility] [address] [place] [address] Referral ID Status Reason Start Date Expiration Date V isits Requested Visits Authorized [id number] Pending Review 09/13/2023 09/12/2024 1 1 Encounter Details Date Type Department Care Team (Latest Contact Info) Description 09/14/2023 8:20 AM CAR MOVER - 09/14/2023 11:59 PM CAR MOVER Hospital Encounter [facility] - Ultrasound [address] [address] Discharge Disposition: Home or Self Care Social [...] Contact Info) Description 07/19/2024 9:45 AM CAR MOVER Office Visit [facility] - PATIENT INSURANCE CLERK [address] [place] [address] Leatha Gupta MD [facility] [place] [address] 12/11/2024 9:00 AM CDT Office Visit [facility] - Surgery [address] [place] [address], [address] [place] [address] [place] [address] [address] 12/11/2024 10:40 AM CDT Office Visit [facility] Care [address] [place] [address] [place] [address] [place] [id number] [place] [address] [address] documented as of this encounter Procedures Procedure Name Priority Date/Time Associated Diagnosis Comments US PELVIS W TRANSVAG NON OB Routine 09/14/2023 9:25 AM CAR MOVER PMB (postmenopausal bleeding) documented in this encounter Results * US PELVIS W TRANSVAG NON OB (09/14/2023 9:25 AM CAR MOVER) Anatomical Region Laterality Modality Pelvis Ultrasound 09/14/2023 9:31 AM CAR MOVER Impressions 09/14/2023 9:34 AM CAR MOVER IMPRESSION: 1. Small uterine leiomyomas with the larger measuring 2.5 cm diameter. 2. 4.1 cm simple appearing right ovarian cyst. 3. Nonvisualization of the left ovary. > Interpreting Provider: Isabell Dillard MD on 09/14/2023 9:34 AM Narrative 09/14/2023 9:34 AM CAR MOVER PROCEDURE: ??US PELVIS W TRANSVAG NON OB DATE/TIME OF EXAM: ??09/14/2023 9:25 AM CLINICAL INFORMATION: None relevant/not provided if blank. Indication: N95.0: Postmenopausal bleeding Additional History: Patient on tamoxifen COMPARISON: October 13, 2021 TECHNIQUE: Real time transabdominal and transvaginal pelvic ultrasound was performed by the insurance verifier with DICOM image capture. Grayscale images were [...] and transvaginal pelvic ultrasound wasperformed by the insurance verifier with DICOM image capture. Grayscale images were [...] bleeding documented in this encounter Care Teams Wirer Street Light Relationship Specialty Start Date End Date Celina Sifuentes MD [address] [place] [address] PCP - General Family Medicine 02/16/23 11/14/23 [place] [address] [address] [place] [address] Surgical Oncologist Surgical Oncology 02/15/23 [place] [address] [address] [place] [address] Fire Official/Oncologist Hematology and Oncology 02/16/23 documented as of this encounter
--- OUTSIDE RECORDS SUMMARY | 2024-07-02 05:02 | XMS_ITS | Encounter Summary ---
Author Organization [facility] Address [address] [place] [address] Care Team Providers Care Editor Magazine Name Role Phone Unavailable Primary Care Provider Unavailabl e Reason for Referral * Radiology Services (Routine) - Closed Specialty Diagnoses / Procedures Referred By Contac t Referred To Contact Mammography Diagnoses Encounter for screening mammogram for malignant neoplasm of breast Procedures MAMMO BILAT SCREENING W Leatha Mendoza MD [address] [place] [address] [facility] [place] [id number] Referral ID Status Reason Start Date Expiration Date Visits Re quested Visits Authorized [id number] Closed 12/22/2021 12/22/2022 1 1 Reason for Visit * Radiology Services (Routine) - Closed Specialty Diagnoses / Procedures Referred By Contac t Referred To Contact Mammography Diagnoses Encounter for screening mammogram for malignant neoplasm of breast Procedures MAMMO BILAT SCREENING W Leatha Mendoza MD [address] [place] [address] [facility] [place] [id number] [address] Referral ID Status Reason Start Date Expiration Date Visits Re quested Visits Authorized [id number] Closed 12/22/2021 12/22/2022 1 1 Encounter Details Date Type Department Care Team (Late Contact Info) Description 12/24/2021 9:10 AM CDT - 12/24/2021 11:59 PM CDT Hospital Encounter [facility] Breast Care [address] [facility] [address] [place] [address] Leatha Gupta MD [address] [place] [address] Discharge Disposition: Home or Self [...] (Late Contact Info) Description 07/19/2024 9:45 AM MOTOR COACH TOUR OPERATOR Office Visit [facility] - CLINICAL REVIEW NURSE [address] [place] [address] Leatha Gupta MD [address] [place] [address] 12/11/2024 9:00 AM CDT Office Visit [facility] - Surgery [address] [facility], [address] [place] [address] [place] [address] [address] [place] [address] 12/11/2024 10:40 AM CDT Office Visit [facility] [id number] [place] [address] [address] [place] [address] [place] [address] [facility] [address] [place] [address] documented as of this encounter [...]
--- OUTSIDE RECORDS SUMMARY | 2024-07-02 05:02 | XMS_ITS | Encounter Summary ---
Author Organization [facility] Address [address] [place] [place] [address] Care Team Providers Care Employment Program Representative Name Role Phone Unavailable Primary Care Provider Unavailabl e Reason for Visit * Reason Onset Date Comments Question 01/19/2023 Encounter Details Date Type Department Care Team (Late st Contact Info) Description 01/19/2023 Telephone [facility] Medical Group - Surgery [address] [place] [address] [place] [address] [address] Question Social History Tobacco Use [...] st Contact Info) Description 07/19/2024 9:45 AM PRINTING PRESS MACHINE OPERATOR Office Visit [facility] - PRODUCT SALES REPRESENTATIVE [address] [place] [address] Leatha Gupta MD [address] [place] [address] 12/11/2024 9:00 AM CDT Office Visit [facility] - Surgery [address] [facility] [place], [address] [address] [place] [address] [address] 12/11/2024 10:40 AM CDT Office Visit [facility] Cancer Care [address] [place] [address] [place], [place] [address] [address] Bernardo [place] [id number] [place] [address] [facility] [address] [place] [address] documented as of this encounter Visit Diagnoses Not on filedocumented in this encounter
--- OUTSIDE RECORDS SUMMARY | 2024-07-02 05:02 | XMS_ITS | Encounter Summary ---
Author Organization [facility] Address [address] [facility] [place] [address] Care Team Providers Care Panel Sewer Name Role Phone Naya Leonard Irving DO Unavailable [phone] Bernardo Lizarraga MD Unavailable [phone] Celina Sifuentes MD Primary Care Provider [phone] Reason for Visit * Reason Comments Post-Op Bilat mast Encounter Details Date Type Department Care Team (Late st Contact Info) Description 02/24/2023 9:10 AM CDT Office Visit [facility] Medical Group - Surgery [address] [place] [address], [address] [address] Ernesto Melendez MD [address] [place] [address] Postop check (Primary Dx) Social History [...] time. Surgeon: Place: [] Ovi Rose M.D. [x][facility]:[address] [place] [address]. Patient Registration [] Mukund Azevedo M.D. [facility] [x] Ernesto Melendez M.D. Ground Floor/[facility]. [] Dior Heard M.D. [] [facility] [] Pelon Gonzalez M.D First Floor [...] st Contact Info) Description 07/19/2024 9:45 AM PRODUCT MARKETING EXECUTIVE Office Visit [facility] - RESAW MACHINE OPERATOR [address] [address] Leatha Gupta MD [address] [place] [address] 12/11/2024 9:00 AM CDT Office Visit [facility] - Surgery [address] [facility], [address] [place] [address] [place] [address] [address] 12/11/2024 10:40 AM CDT Office Visit [facility] Cancer Care [address] [place] [address] [address] [place] [address] [place] [address] [address] documented as of this encounter Visit Diagnoses Diagnosis Postop check- Primary Follow-up examination, following unspecified surgery documented in this encounter Care Teams Panel Sewer Relationship Specialty Start Date End Date Celina Sifuentes MD [address] [place] [address] PCP - General Family Medicine 02/16/23 11/14/23 [place] [address] [address] Surgical Oncologist Surgical Oncology 02/15/23 [place] [address] [address] Behavioral Health Worker/Oncologist Hematology and Oncology 02/16/23 documented as of this encounter
--- OUTSIDE RECORDS SUMMARY | 2024-07-02 05:02 | XMS_ITS | Encounter Summary ---
Author Organization [facility] Address [address] [place] [address] Care Team Providers Care Gold Leaf Printer Name Role Phone Unavailable Primary Care Provider Unavailabl e Reason for Visit * Reason Onset Date Comments Question 01/19/2023 Needs MRI order Encounter Details Date Type Department Care Team (Late Contact Info) Description 01/19/2023 Telephone [facility] - Surgery [address] [place] [address] [place] [address] [address] Question (Needs MRI order) Social [...] (Late Contact Info) Description 07/19/2024 9:45 AM HYDRANT SETTER Office Visit [facility] - RUNNER MAN [address] [address] Leatha Gupta MD [address] [place] [address] 12/11/2024 9:00 AM CDT Office Visit [facility] - Surgery [address] [facility], [address] [place] [address] [place] [address] [address] 12/11/2024 10:40 AM CDT Office Visit [facility] Cancer Care [address] [place] [address] Natanael. [address] [place] [address] [place] [address] [facility] [address] [place] [address] documented as of this encounter Visit Diagnoses Not on filedocumented in this encounter
--- OUTSIDE RECORDS SUMMARY | 2024-07-02 05:02 | XMS_ITS | Encounter Summary ---
Author Organization [facility] Address [address] [place] [address] Care Team Providers Care Tricot Knitting Machine Operator Name Role Phone Naya Leonard Irving DO Unavailable [phone] Bernardo Lizarraga MD Unavailable [phone] Celina Sifuentes MD Primary Care Provider [phone] Encounter Details Date Type Department Care Team [...] st Contact Info) Description 07/19/2024 9:45 AM GRAVES REGISTRATION SPECIALIST Office Visit [facility] - HEAVY DUTY MECHANIC [address] [address] Leatha Gupta MD [address] [address] 12/11/2024 9:00 AM CDT Office Visit [facility] - Surgery [address] [facility], [address] [place] [address] [place] [address] [address] [facility] [address] [place] [address] 12/11/2024 10:40 AM CDT Office Visit [facility] Cancer Care [address] [facility] [address] [place] [address] [place] [address] [facility] [address] [place] [address] documented as of this encounter Visit Diagnoses Not on filedocumented in this encounter Care Teams Tricot Knitting Machine Operator Relationship Specialty Start Date End Date Celina Sifuentes MD [address] [place] [address] PCP - General Family Medicine 02/16/23 11/14/23 [place] [address] [address] Surgical Oncologist Surgical Oncology 02/15/23 [place] [address] [address] Traffic Rate Computer/Oncologist Hematology and Oncology 02/16/23 documented as of this encounter
--- OUTSIDE RECORDS SUMMARY | 2024-07-02 05:02 | XMS_ITS | Encounter Summary ---
Author Organization [facility] Address [address] [place] [address] Care Team Providers Care Upholstery Department Supervisor Name Role Phone Naya Leonard Irving DO Unavailable [phone] Bernardo Lizarraga MD Unavailable [phone] Celina Sifuentes MD Primary Care Provider [phone] Reason for Visit * Auth/Cert (Routine) Specialty Diagnoses / Procedures Referred By Contac t Referred To Contact Procedures MASTECTOMY SIMPLE COMPLETE Referral ID Status Reason Start Date Expiration Date Visits Re quested Visits Authorized [id number] 1 1 Encounter Details Date Type Department Care Team (Late st Contact Info) Description 02/18/2023 8:44 AM CDT Anesthesia Event [facility] - Perioperative Surgery [address] [place] [address] Alan Damon MD [address] [place] [address] Anesthesia Record Procedure Summary Procedure Name [...] 3; Channel; Bulb; 19; Bard; Channel Drain; 537112; [id number]; Left; Breast; General Anesthesia; 02/19/23 02/18/23 1008 by Nathaniel Dalton RN 02/19/23 0000 by Reggie Moon RN Drain 02/18/23; 1010; Dr. Naya Leonard; 4; Channel; Bulb; 19; BARD; CHANNEL DRAIN; 410255; [id number]; Lateral, Left; Breast; General Anesthesia; 02/19/23 02/18/23 1010 by Nathaniel Dalton RN 02/19/23 0000 by Reggie Moon RN Procedural Site (Incision) 02/18/23; 1014; Right; Breast; INCISION X 1; 02/18/23; 2103 02/18/23 1014 by Nathaniel Dalton RN 02/18/23 2103 by Generic, Auto Release Drain 02/18/23; 1057; Dr. naya Leonard; 1; Channel; Bulb; 19; BARD; CHANNEL DRAIN; 810673; [id number]; Right; Breast; General Anesthesia; 02/19/23 02/18/23 1057 by Nathaniel Dalton RN 02/19/23 0000 by Reggie Moon RN Drain 02/18/23; 1058; Dr. Naya Leonard; 2; Channel; Bulb; 19; BARD; CHANNEL DRAIN; 659910; [id number]; Lateral, Right; Breast; None; Well; 02/25/23; 0739; [...] RIGHT BIOPSY 01/06/2023 [facility] US OUTSIDE PLANT CABLE ENGINEER Status: Patient's last menstrual period was 01/23/2023. [...] encounter Procedure Notes * Janell Ghotra, SALES DATA ANALYST-COVERING MACHINE TENDER - 02/18/2023 9:03 AM CDTAssociated Order(s): ETT Placement Endotracheal Tube Placement: Patient Location: OR. Intubation Event Date/Time: 02/18/2023 8:53 AM Procedure: intubation ([id number]). Procedure Section: Sedation: under general anesthesia. Indications [...] 1; Channel; Bulb; 19; Bard; Channel Drain; 249835; [id number];Left; Breast; General Anesthesia 02/18/23 1008 by Nathaniel Dalton RN Drain 02/18/23; 1010; Dr. Naya Leonard; 2; Channel; Bulb; 19; BARD; CHANNEL DRAIN; 091060; [id number];Lateral, Left; Breast; General Anesthesia 02/18/23 1010 by Nathaniel Dalton, [place] Drain 02/18/23; 1057; Dr. naya Leonard; 3; Channel; Bulb; 19; BARD; CHANNEL DRAIN; 880475; [id number];Right; Breast; General Anesthesia 02/18/23 1057 by Nathaniel Dalton RN Drain 02/18/23; 1058; Dr. Naya Leonard; 4; Channel; Bulb; 19; BARD; CHANNEL DRAIN; 976818; [id number];Lateral, Right; Breast 02/18/23 1058 by Nathaniel Dalton [...] st Contact Info) Description 07/19/2024 9:45 AM FEED MILL MANAGER Office Visit [facility] - OUTSIDE PLANT CABLE ENGINEER [address] [place] [address] Leatha Gupta MD [address] [place] [address] 12/11/2024 9:00 AM CDT Office Visit [facility] - Surgery [address] [facility], [address] [place] [address] [place] [address] [address] [place] [address] 12/11/2024 10:40 AM CDT Office Visit [facility] Cancer Care [address] [place] [address] [place] [address] Bernardo Lizarraga [place] [id number] [place] [address] [facility] [address] [place] [address] documented as of this encounter Procedures Procedure Name Priority Date/Time Associated Diagnosis Comments ENDOTRACHEAL TUBE NOTE Routine 02/18/2023 9:03 AM CDT documented in this encounter Results * ETT LINE PERFORMABLE (02/18/2023 9:03 AM CDT) Narrative Janell Ghotra APRN-CRNA - 02/18/2023 9:03 AM CDT Janell Ghotra APRN-CRNA ? 02/18/2023 ??9:04 AM Endotracheal Tube Placement: ? Patient Location: OR. Intubation Event Date/Time: ??02/18/2023 8:53 AM Procedure: intubation ([id number]). Procedure Section: ?? Sedation: under general anesthesia. [...] mg documented in this encounter Care Teams Upholstery Department Supervisor Relationship Specialty Start Date End Date Celina Sifuentes MD [address] [place] [address] PCP - General Family Medicine 02/16/23 11/14/23 [place] [address] [facility] [address] [place] [address] Surgical Oncologist Surgical Oncology 02/15/23 [place] [address] [address] [facility] 100 [place] [address] Anesthesiologist/Oncologist Hematology and Oncology 02/16/23 documented as of this encounter
--- OUTSIDE RECORDS SUMMARY | 2024-07-02 05:02 | XMS_ITS | Encounter Summary ---
Author Organization [facility] Address [address] [place] [address] Care Team Providers Care Academic Support Coordinator Name Role Phone Unavailable Primary Care Provider Unavailabl e Reason for Visit * Reason Comments Pain Pelvic since wednesday, around left ovary area Vaginal Bleeding for about 3-4 weeks Pain Back for about 3-4 weeks, radiating down left leg Encounter Details Date Type Department Care Team (Late st Contact Info) Description 10/07/2021 3:45 PM CDT Office Visit [facility] - MANAGER MASSAGE DEPARTMENT [address] [place] [address] Leatha Gupta MD [address] [place] [phone] Pelvic pain (Primary Dx); DUB (dysfunctional uterine [...] Gupta MD - 10/07/2021 6:36 PM CDT DIRECTOR OF CARDIAC REHABILITATION NOTE HPI Betina Coy is an 51 [...] any lesions or abnormalities. Normal Bartholin's and Dayton's. Vagina: Moist, pink rugae without any lesions. [...] W DOP NON OB Leatha Gupta MD documented in this encounter Plan of Treatment Upcoming Encounters Date Type Department Care Team (Late st Contact Info) Description 07/19/2024 9:45 AM LOCAL COMPANY FLATBED TRUCK DRIVER Office Visit [facility] - MANAGER MASSAGE DEPARTMENT [address] [place] [address] Leatha Gupta MD [facility] [place] [address] 12/11/2024 9:00 AM CDT Office Visit [facility] - Surgery [address] [facility], [address] [address] [place] [address] [address] 12/11/2024 10:40 AM CDT Office Visit [facility] Cancer Care [address] [place] [address] [address] [place] [address] [address] documented as of this encounter Visit Diagnoses Diagnosis Pelvic pain- Primary Unspecified symptom associated with female genital organs DUB (dysfunctional uterine bleeding) Other disorder of menstruation and other abnormal bleeding from female genital tract documented in this encounter
--- OUTSIDE RECORDS SUMMARY | 2024-07-02 05:02 | XMS_ITS | Encounter Summary ---
Author Organization [facility] Address [address] [place] [address] Care Team Providers Care Vehicle Dismantler Name Role Phone Naya Leonard DO Unavailable [phone] Bernardo Lizarraga MD Unavailable Celina Sifuentes MD Primary Care Provider [phone] Reason for Visit * Auth/Cert (Routine) Specialty Diagnoses / Procedures Referred By Sherie jacobo Referred To Contact Procedures MASTECTOMY SIMPLE COMPLETE Referral ID Status Reason Start Date Expiration Date Visits Re quested Visits Authorized [id number] 1 1 Encounter Details Date Type Department Care Team (Late st Contact Info) Description 02/18/2023 9:00 AM CDT - 02/18/2023 11:39 AM CDT Surgery [facility] - Perioperative Surgery [address] [place] [address] [place] [address] [phone] RIGHT SIMPLE MASTECTOMY, RIGHT SENTINEL LYMPH NODE [...] 100 tablet 4 02/06/2023 11/15/2023 HYDROcodone-acetaminoph en ([place]) 5-325 MG tabletIndications:Invas albert ductal carcinoma of [...] o'clock position revealed an infiltrating ductal carcinoma ER/RI positive, HER2/brittany negative with low KI 67. Thecalcifications revealed DCIS, ER/RI positive. Patient underwent breast MRI which showed [...] BOTH breasts was performed by a trained mortgage manager and by Dr. Maddi Landeros. BREAST PARENCHYMAL [...] be scheduled to return to the [facility] for biopsy . > Interpreting Provider: [...] contiguous extent (minimum tumor size) ?? -- Thornwood grade 1 of 3 ?? -- Moderate [...] ER: Positive ( 70 %, moderate intensity) RI: Positive ( 90 %, strong intensity) Her-2-brittany: Not over-expressed (score 1+) Ki-67: Low proliferation/favorable ( 3 %) ?? Specimen B (right breast calcifications): ER: Positive ( >95 %, strong intensity) RI: Positive ( 50 %, moderate intensity) Assessment: [...] o'clock position revealed an infiltrating ductal carcinoma ER/RI positive, HER2/brittany negative with low KI 67. Thecalcifications revealed DCIS, ER/RI positive. Patient underwent breast MRI which showed [...] STEREOTACTIC RIGHT BIOPSY 01/06/2023 [facility] ??? NEEDLE BIOPSY Right 10'18 2 cyst [...] BOTH breasts was performed by a trained mortgage manager and by Dr. Maddi Landeros. BREAST PARENCHYMAL [...] be scheduled to return to the Breast [facility] for biopsy . > Interpreting [...] contiguous extent (minimum tumor size) ?? -- Thornwood grade 1 of 3 ?? -- Moderate [...] ER: Positive ( 70 %, moderate intensity) RI: Positive ( 90 %, strong intensity) Her-2-brittany: Not over-expressed (score 1+) Ki-67: Low proliferation/favorable ( 3 %) ?? Specimen B (right breast calcifications): ER: Positive ( >95 %, strong intensity) RI: Positive ( 50 %, moderate intensity) Assessment: [...] Leonard DO - 02/18/2023 9:14 AM CDT Brownell Node Biopsy for Breast Cancer - Right [...] Left Prophylactic Mastectomy Surgeon: Naya Leonard DO Floors Buffer: Lynn CALVIN Type of anesthesia: General Complications: None EBL: 300 cc Drains: CHANI subcutaneous Bilateral flank Brief findings: left breast removed, oozing from flaps noted and controled with bovie and surgicel powder, right breast removed without issues, right sentinel lymph node removed Specimens: 1. Right Breast-stitch in axillary tail 2. Right Brownell Lymph Node 3. Left Breast-stitch in axillary [...] cavity. When hemostasis was obtained, two 19 luxembourger CHANI drains were placed in the Left [...] cavity. When hemostasis was obtained, two 19 luxembourger CHANI drains were placed in the Right [...] st Contact Info) Description 07/19/2024 9:45 AM HOME DAY CARE PROVIDER Office Visit [facility] - WHEEL MILL OPERATOR [address] [place] [address] Leatha Gupta MD [address] [place] [address] 12/11/2024 9:00 AM CDT Office Visit [facility] - Surgery [address] [facility], [address] [place] [address] [place] [address] [address] [facility] [address] [place] [address] 12/11/2024 10:40 AM CDT Office Visit [facility] Cancer Care [address] [place] [address] [address] [place] [address] [place] [address] [address] [facility] [address] [place] [address] documented as of this encounter Procedures Procedure Name Priority Date/Time Associated Diagnosis Comments PATHOLOGY TISSUE EXAM (STL) Routine 02/18/2023 9:17 AM CDT Diagnosis unknown RI MAST SMPL COMPL 02/18/2023 8: 36 AM CDT Special Needs NUC MED INJ 8:00 HCG URINE QUALITATIVE STAT 02/18/2023 6:36 AM CDT Preoperative examination documented in this encounter Results * PATHOLOGY TISSUE EXAM (STL) (02/18/2023 9:17 AM CDT) Case Report Surgical Pathology Report ? Case: [id number] ? Authorizing Provider: ??Naya Leonard, DO ? Collected: ? 02/18/2023 09:17 AM ? Ordering Location: ? [facility] ?Received: ?02/18/2023 11:12 AM ? Pathologist: ? Sarah Blount MD ? Specimens: ?? A) - Breast, left breast stitch chanda axillary tail ? B) - Breast, right breast stitch chanda axillary tail ? C) - Brownell Lymph Node, right breast sentinel lymph node [...] lesions. There are no gross lymph nodes. Digital Business Analyst sections are submitted as follows: A1 - [...] adipose tissue with no additional biopsy sites. Digital Business Analyst sections are submitted as follows: B1 - [...] in fixative at 10:54 a.m. on 02/18/23. [facility] 03/09/2023 5:28 PM CDT [facility] Microscopic [...] no special type (ductal) ?? Histologic Grade (Thornwood Histologic Score): ? Glandular (Acinar) / Tubular [...] (sentinel and non-sentinel): ?1 ? Number of Brownell Nodes Examined: ?1 pTNM CLASSIFICATION (AJCC 8th [...] - PATHOLOGY/CYTO LOGY ORDERABLES Performing Organization Address City/[facility]/ZIP Co de Phone Number [facility] [address] [place] [address] * HCG URINE QUALITATIVE (02/18/2023 6:36 AM CDT) hCG Qualitative Urine Negative Negative 02/18/2023 6:50 AM CDT [facility] Urine URINE / Unknown Collection / Unknown 02/18/2023 6:36 AM CDT 02/18/2023 6:40 AM CDT Kaila Jamison DO LAB - URINALYSIS ORD ERABLES Performing Organization Address [facility] Co de Phone Number [facility] [address] [place] [address] documented in this encounter Visit Diagnoses Not [...] 180, DBP greater than 100., PACU HYDROcodone-acetaminophen ([place]) 5-325 MG tablet 1 tablet 1 tablet, [...] ($ New Bag/Syri nge - Provider: Janell Ghotar APRN-COMPUTER HARDWARE TECHNICIAN) hydrALAZINE (Apresoline) injection 5 mg 5 mg, Intravenous, POST-OP MULTIPLE, Starting on Gema 02/18/23 at 1207, Until Gema 02/18/23 at 1608, IV given slowly over 1 minute, up to 20 mg. Repeat 5 mg IV dose every 10-15 minutes for sustained hypertension SBP greater than 180, DBP greater than 100., PACU HYDROcodone-acetaminophen ([place]) 5-325 MG tablet 1 tablet (COMPLETED) 1 [...] Pre-op documented in this encounter Care Teams Vehicle Dismantler Relationship Specialty Start Date End Date Celina Sifuentes MD [address] [place] [address] PCP - General Family Medicine 02/16/23 11/14/23 [place] [address] [address] [facility] [address] [place] [phone] Surgical Oncologist Surgical Oncology 02/15/23 [place] [address] [address] [facility] [address] [place] [phone] Insulator Cutter And Former/Oncologist Hematology and Oncology 02/16/23 documented as of this encounter
--- OUTSIDE RECORDS SUMMARY | 2024-07-02 05:02 | XMS_ITS | Encounter Summary ---
Author Organization [facility] Address [address] [facility] [place] [address] Care Team Providers Care Fire Protection Engineering Technician Name Role Phone Naya Leonard DO Unavailable [phone] Bernardo Lizarraga MD Unavailable [phone] Celina Sifuentes MD Primary Care Provider [phone] Reason for Visit * Reason Onset Date Comments Pain 02/19/2023 Encounter Details Date Type Department Care Team (Late st Contact Info) Description 02/19/2023 Telephone [facility] SURGERY [address] [place] [address] [place] [address] [address] Pain Social History Tobacco Use [...] st Contact Info) Description 07/19/2024 9:45 AM COMMERCIAL LITIGATION PARALEGAL Office Visit [facility] - LADLE BUILDER [address] [place] [address] Leatha Gupta MD [address] [place] [address] 12/11/2024 9:00 AM CDT Office Visit [facility] - Surgery [address] [place] [address], [address] [address] Naya Leonard DO [facility] [address] [address] 12/11/2024 10:40 AM CDT Office Visit [facility] Cancer Care [address] [place] [address] Bernardo Lizarraga MD [address] [place] [address] documented as of this encounter Visit Diagnoses Not on filedocumented in this encounter Care Teams Fire Protection Engineering Technician Relationship Specialty Start Date End Date Celina Siufentes MD [address] [place] [address] PCP - General Family Medicine 02/16/23 11/14/23 [place] [address] [address] [place] [address] Surgical Oncologist Surgical Oncology 02/15/23 [place] [address] [address] [place] [address] Project Mgr/Oncologist Hematology and Oncology 02/16/23 documented as of this encounter
--- OUTSIDE RECORDS SUMMARY | 2024-07-02 05:02 | XMS_ITS | Encounter Summary ---
Author Organization [facility] Address [address] [facility] [place] [address] Care Team Providers Care Lens Grinder Apprentice Name Role Phone Unavailable Primary Care Provider Unavailabl e Reason for Visit * Radiology Services (Routine) - Closed Specialty Diagnoses / Procedures Referred By Contac t Referred To Contact Diagnoses Encounter for screening mammogram for malignant neoplasm of breast Procedures MAMMO BILAT DIAGNOSTIC W DONALD MAMMO BILAT SCREENING W Leatha Mendoza MD [address] [place] [address] Referral ID Status Reason Start Date Expiration Date Visits Re quested Visits Authorized [id number] Closed 12/29/2022 12/29/2023 1 1 Encounter Details Date Type Department Care Team (Latest Contact Info) Description 12/30/2022 8:44 AM CDT - 12/30/2022 9:06 AM CDT Hospital Encounter [facility] Breast Care [address] [place] [address] Discharge Disposition: Home or Self Care Social [...] st Contact Info) Description 07/19/2024 9:45 AM SET RIDER Office Visit [facility] - SUPERVISOR CUTTING DEPARTMENT [address] [place] [address] Leatha Gupta MD [address] [place] [address] 12/11/2024 9:00 AM CDT Office Visit [facility] - Surgery [address] [facility], [address] [address] [place] [address] [address] 12/11/2024 10:40 AM CDT Office Visit [facility] Cancer Care [address] [place] [address] [place] [address] [place] [id number] [place] [address] documented as of this encounter Procedures [...] be scheduled to return to the Breast [facility] for biopsy . > Interpreting Provider: Maddi [...] BOTH breasts was performed by a trained poly area supervisor and by Dr. Maddi Landeros. BREAST PARENCHYMAL [...]
--- OUTSIDE RECORDS SUMMARY | 2024-07-02 05:02 | XMS_ITS | Encounter Summary ---
Author Organization [facility] Address [address] [place] [address] Care Team Providers Care Quality Assurance Supervisor Chassis Name Role Phone Naya Leonard DO Unavailable [phone] Bernardo Lizarraga MD Unavailable [phone] Celina Sifuentes MD Primary Care Provider [phone] Reason for Visit * Reason Comments Establish Care * Consultation (Routine) - Closed Specialty Diagnoses / Procedures Referred By Sherie t Referred To Contact Hematology / Oncology-Medical Diagnoses Mass of right breast, [place] [address] [address] [place] [address] [address] Referral ID Status Reason Start Date Expiration Date V isits Requested Visits Authorized [id number] Closed Specialty Services Required 02/02/2023 02/02/2024 1 1 Encounter Details Date Type Department Care Team (Late st Contact Info) Description 02/16/2023 11:20 AM CDT Office Visit [facility] Cancer Care [address] [place] [address] [place] [address] [place] [address] [place] [address] [place] [address] Invasive ductal carcinoma of right breast [...] Lizarraga MD - 02/16/2023 11:20 AM CDT [facility] HEMATOLOGY/ONCOLOGY CLINIC CONSULTATION Assessment: Piotr - Invasive Ductal Carcinoma of Right Breast - ER/VT+, Her2- (1+) - Grade 1, Ki- 67 [...] Bernardo Lizarraga MD - Hematology/Oncology Available on [employer] chat during the week Cell# (providers only): [phone] Referring Physician: Naya Leonard DO Dr Mufti [...] 02/2023 - Diagnosed right breast IDC - ER/VT+, Her2- (1+) - Grade 1, Ki-67 3% [...] Lizarraga MD - Hematology/Oncology Cell# (providers only): [phone] documented in this encounter Plan of Treatment Upcoming Encounters Date Type Department Care Team (Late st Contact Info) Description 07/19/2024 9:45 AM WIDE LOAD ESCORT Office Visit [facility] - DIGITAL MEDIA PRODUCER [address] [place] [address] Leatha Gupta MD [address] [place] [place] [address] 12/11/2024 9:00 AM CDT Office Visit [facility] - Surgery [address] [facility], [address] [place] [address] [place] [address] [address] [place] [address] 12/11/2024 10:40 AM CDT Office Visit [facility] [address] [facility] [address] [place] [address] [place] [address] [facility] [address] [place] [address] documented as of this encounter Visit Diagnoses Diagnosis Invasive ductal carcinoma of right breast (HCC)- Primary Mass of right breast, unspecified quadrant Family history of cancer Family history of unspecified malignant neoplasm Benign cyst of breast, unspecified laterality documented in this encounter Care Teams Quality Assurance Supervisor Chassis Relationship Specialty Start Date End Date Celina Sifuentes MD [address] [place] [address] PCP - General Family Medicine 02/16/23 11/14/23 [place] [address] [address] [place] [address] Surgical Oncologist Surgical Oncology 02/15/[address] [place] [address] [facility] [address] [place] [address] Wireless Technician/Oncologist Hematology and Oncology 02/16/23 documented as of this encounter
--- OUTSIDE RECORDS SUMMARY | 2024-07-02 05:02 | XMS_ITS | Encounter Summary ---
Author Organization [facility] Address [address] [facility] [place] [address] Care Team Providers Care Transfer Engineer Name Role Phone Unavailable Primary Care Provider Unavailabl e Reason for Visit * Reason Onset Date Comments Order 01/19/2023 Encounter Details Date Type Department Care Team (Late st Contact Info) Description 01/19/2023 Telephone [facility] - MACHINE STOPPAGE FREQUENCY CHECKER [id number] [place] [address] Leatha Gupta MD [facility] [place] [address] Order Social History Tobacco Use [...] RN - 01/19/2023 11:12 AM CDT Called [facility]. Pt had scheduled the MRI. They reached out to Dr. Leonard office who told them that Dr. Gupta had referred pt to them for the consult and MRI. They then reached out to this office for the order. Advised that Dr. Carballo did not see that MRI was necessary. [facility] to reach outto pt to see why she scheduled MRI. Will notify office if additional info is rec'd. * Telephone Encounter - Ok Torre APRN-CNP - 01/19/2023 10:02 AM CDT Who actually ordered this? Was it us or Dr Leonard? * Telephone Encounter - Marguerite Uribe RN - 01/19/2023 9:25 AM CDT Pt is scheduled for Bilateral MRI w/ w/o contrast at [facility]. Order needed. documented in this encounter Plan of Treatment Upcoming Encounters Date Type Department Care Team (Late st Contact Info) Description 07/19/2024 9:45 AM LACQUER SHADER Office Visit [facility] Medical [facility] - MACHINE STOPPAGE FREQUENCY CHECKER [address] [address] Leatha Gupta MD [address] [place] [address] 12/11/2024 9:00 AM CDT Office Visit [facility] - Surgery [address] [facility], [address] [place] [address] [place] [address] [address] [facility] [address] [place] [address] 12/11/2024 10:40 AM CDT Office Visit [facility] Cancer Care [address] [place] [address] [address] [place] [address] [place] [id number] [place] [address] [address] [place] [address] documented as of this encounter Visit Diagnoses Not on filedocumented in this encounter
--- OUTSIDE RECORDS SUMMARY | 2024-07-02 05:02 | XMS_ITS | Encounter Summary ---
Author Organization [facility] Address [address] [place] [address] Care Team Providers Care Beam Dyer Recessed Vat Name Role Phone Unavailable Primary Care Provider Unavailabl e Reason for Referral * Radiology Services (Routine) - Closed Specialty Diagnoses / Procedures Referred By Contac t Referred To Contact Diagnoses Breast calcifications on mammogram Procedures MAMMO STEREOTACTIC RIGHT BIOPSY Leatha Gupta MD [address] [place] [address] Referral ID Status Reason Start Date Expiration Date Visits Re quested Visits Authorized [id number] Closed 01/06/2023 01/06/2024 1 1 Reason for Visit * Radiology Services (Routine) - Closed Specialty Diagnoses / Procedures Referred By Contac t Referred To Contact Diagnoses Breast calcifications on mammogram Procedures MAMMO STEREOTACTIC RIGHT BIOPSY Leatha Gupta MD [address] [place] [address] Referral ID Status Reason Start Date Expiration Date Visits Re quested Visits Authorized [id number] Closed 01/06/2023 01/06/2024 1 1 Encounter Details Date Type Department Care Team (Latest Contact Info) Description 01/06/2023 9:35 AM CDT Hospital Encounter [facility] Breast Care [address] [place] [address] Discharge Disposition: Home or Self Care [...] Contact Info) Description 07/19/2024 9:45 AM WATER PROJECT ENGINEER Office Visit [facility] - EVENT SALES REPRESENTATIVE [address] [place] [address] Leatha Gupta MD [address] [place] [address] 12/11/2024 9:00 AM CDT Office Visit [facility] - Surgery [address], [address] [place] [address] [place] [address] [facility] [address] [place] [address] 12/11/2024 10:40 AM CDT Office Visit [facility] Cancer Care [address] [place] [address] [place] [address] [place] [address] documented as of this encounter Procedures [...] are included within the tissue cores. ??[A LSA [employer] Mini Cork tissue marker clip was then [...]
--- OUTSIDE RECORDS SUMMARY | 2024-07-02 05:02 | XMS_ITS | Encounter Summary ---
Author Organization [facility] Address [address] [place] [address] Care Team Providers Care Custom Wood Stair Builder Name Role Phone HoracioNaya Irving GALLO Unavailable [phone] Bernardo Lizarraga MD Unavailable [phone] Celina Sifuentes MD Primary Care Provider [phone] Reason for Referral * (Routine) - Closed Specialty Diagnoses / Procedures Referred By Contac t Referred To Contact Procedures [place] [address] [facility] [address] [place] [phone] [place] [address] [facility] [address] [place] [phone] Referral ID Status Reason Start Date Expiration Date Visits Re quested Visits Authorized [id number] Closed 02/25/2023 02/25/2024 1 1 Reason for Visit * Auth/Cert (Routine) Specialty Diagnoses / Procedures Referred By Contac t Referred To Contact Procedures AL EXC NECK FRITZ DEEP = 5 CM EXCISION MASS OR TUMOR CHEST Referral ID Status Reason Start Date Expiration Date Visits Re quested Visits Authorized [id number] 1 1 Encounter Details Date Type Department Care Team (Latest Contact Info) Description 02/25/2023 5:42 AM CDT - 02/25/2023 9:18 AM CDT Hospital Encounter Formerly [facility], [facility] - Perioperative Surgery [address] [place], [place] [id number] [place] [address] [facility] [address] [place] [phone] Surgery General Discharge Disposition: Home or Self [...] daily 14 capsule 02/25/2023 03/17/2023 HYDROcodone-acetaminoph en ([place]) 5-325 MG tabletIndications:Invas albert ductal carcinoma of [...] Right 01/06/2023 US BREAST RIGHT BIOPSY 01/06/2023 [facility] US No Known [...] cause drowsiness. 90 tablet 0 ??? HYDROcodone-acetaminophen ([place]) 5-325 MG tablet Take 1 (one) tablet [...] Melendez MD - 02/25/2023 9:[address] [facility] OPERATIVE REPORT PATIENT: : BETINA URIARTE MR#: [id number] ADMIT DATE: 02/25/2023 CSN: [id number] DATE OF SURGERY: 02/25/2023 : 1970 PHYSICIAN: Ernesto Melendez MD ROOM: [facility] PREOPERATIVE DIAGNOSIS: Bilateral chest wall seroma. POSTOPERATIVE DIAGNOSIS: Bilateral chest wall seroma. PROCEDURES PERFORMED: Incision and drainage, bilateral chest wall seroma with placement of Shalom drain, left chest wall; placement of Shalom drain, right chest wall. SURGEON: Ernesto Melendez MD, FACS. FINANCIAL CENTER MANAGER: MARIXA Escobar. ANESTHESIA: Local with IV sedation. [...] satisfactory condition. Ernesto Melendez MD JSG/MODL #: [id number] * Brief Op Note - Ernesto Melendez MD - 02/25/2023 7:45 AM CDT Brief Post Operative Note Preoperative Diagnosis: Bilateral chest wall seroma Postoperative Diagnosis: same Procedure: I and D with bilat chest wall drain placement Surgeon: Ernesto Melendez MD Painting Worker: MARIXA Type of anesthesia: Local, MAC Complications: none EBL: 10 cc Drains: CHANI subcutaneous x 2 documented in this encounter Miscellaneous Notes * Clinical References AVS - Reggie Moon RN - 02/25/2023 8:12 AM CDT Images from the original note were not included. [id number] Discharge Instructions: Caring for Your Ravindra-Harrington Drainage [...] 30 mL) Last Reviewed Date: 2021 ?? 3725-0369 [employer]. All rights reserved. This information is not intended as a substitute for professional medical care. Always follow your healthcare professional's instructions. documented in this encounter Plan of Treatment Upcoming Encounters Date Type Department Care Team (Late st Contact Info) Description 07/19/2024 9:45 AM AFLOAT CRYPTOLOGIC MANAGER Office Visit [facility] - HAND ROUNDER [address] [place] [address] Leatha Gupta MD [address] [place] [address] 12/11/2024 9:00 AM CDT Office Visit [facility] - Surgery [address] [place] [address], [address] [place] [address] [place] [address] [place] [address] 12/11/2024 10:40 AM CDT Office Visit [facility] Cancer Care [address] [place] [address] Bernardo Lizarraga MD [address] [place] [address] documented as of this encounter Procedures Procedure Name Priority Date/Time Associated Diagnosis Comments AL EXC NECK FRITZ DEEP = 5 CM 02/25/2023 7:20 AM CDT HCG URINE QUALITATIVE STAT 02/25/2023 6:32 AM CDT Preoperative examination documented in this encounter Results * HCG URINE QUALITATIVE (02/25/2023 6:32 AM CDT) hCG Qualitative Urine Negative Negative 02/25/2023 6:42 AM CDT [facility] Urine URINE / Unknown Collection / Unknown 02/25/2023 6:32 AM CDT 02/25/2023 6:36 AM CDT Kaila Jamison DO LAB - URINALYSIS ORD ERABLES [facility] [address] [place] [address] documented in this encounter Visit [...] Switch to gravity)0759 (Restarted - Provider: Rose [place], BANANA GRADER-CNC LATHE MACHINIST) PRN Medication Order 02/23/2023 02/24/2023 02/25/2023 0.9% [...] Pre-op documented in this encounter Care Teams Custom Wood Stair Builder Relationship Specialty Start Date End Date Celina Sifuentes MD [address] [place] [address] PCP - General Family Medicine 02/16/23 11/14/23 [place] [address] [place] [phone] Surgical Oncologist Surgical Oncology 02/15/23 [place] [address] [address] [place] [phone] Inspector Quality Assurance/Oncologist Hematology and Oncology 02/16/23 documented as of this encounter
--- OUTSIDE RECORDS SUMMARY | 2024-07-02 05:02 | XMS_ITS | Encounter Summary ---
Author Organization [facility] Address [address] [place] [address] Care Team Providers Care Survey Researcher Name Role Phone Unavailable Primary Care Provider Unavailabl e Reason for Visit * Reason Onset Date Comments Question 01/13/2023 Encounter Details Date Type Department Care Team (Late st Contact Info) Description 01/13/2023 Telephone [facility] - CONCESSIONIST [address] [place] [address] Leatha Gupta MD [address] [place] [address] Question Social History Tobacco Use [...] anything supplemental that is needed from general TOOL RADIAL DRILL PRESS SET UP OPERATOR pertaining to breast cancer. Keep MRI appt [...] Contact Info) Description 07/19/2024 9:45 AM SOFTWARE TOOLS ENGINEER Office Visit [facility] - CONCESSIONIST [address] [place] [address] Leatha Gupta MD [address] [place] [phone] 12/11/2024 9:00 AM CDT Office Visit [facility] - Surgery [address] [facility], [address] [place] [address] [place] [address] [address] [facility] [address] [place] [address] 12/11/2024 10:40 AM CDT Office Visit [facility] [address] [place] [address] [address] [place] [address] [place] [address] [address] [place] [phone] documented as of this encounter Visit Diagnoses Not on filedocumented in this encounter
--- OUTSIDE RECORDS SUMMARY | 2024-07-02 05:02 | XMS_ITS | Encounter Summary ---
Author Organization [facility] Address [address] [place] [address] Care Team Providers Care Life Cycle Assessment Analyst Name Role Phone Unavailable Primary Care Provider Unavailabl e Reason for Referral * Radiology Services (Routine) - Closed Specialty Diagnoses / Procedures Referred By Sherie jacobo Referred To Contact Diagnoses Abnormal mammogram of left breast Procedures MAMMO LEFT DIAGNOSTIC W DONALD MAMMO LEFT DIAGNOSTIC Leatha Gupta MD [address] [place] [address] Referral ID Status Reason Start Date Expiration Date Visits Re quested Visits Authorized Closed 12/24/2021 12/24/2022 1 1 Reason for Visit * Radiology Services (Routine) - Closed Specialty Diagnoses / Procedures Referred By Sherie jacobo Referred To Contact Diagnoses Abnormal mammogram of left breast Procedures MAMMO LEFT DIAGNOSTIC W DONALD MAMMO LEFT DIAGNOSTIC Leatha Gupta MD [address] [place] [address] Referral ID Status Reason Start Date Expiration Date Visits Re quested Visits Authorized Closed 12/24/2021 12/24/2022 1 1 Encounter Details Date Type Department Care Team (Late st Contact Info) Description 03/17/2022 1:25 PM CDT - 03/17/2022 11:59 PM CDT Hospital Encounter [facility] Breast Care [address] [place] [address] Leatha Gupta MD [address] [place] [address] Discharge Disposition: Home or Self [...] st Contact Info) Description 07/19/2024 9:45 AM SUPERVISOR TOY ASSEMBLY Office Visit [facility] - ALTERATION WORKER [address] [place] [address] Leatha Gupta MD [address] [place] [address] 12/11/2024 9:00 AM CDT Office Visit [facility] - Surgery [address] [facility], [address] [place] [address] [place] [address] [facility] [address] [place] [phone] 12/11/2024 10:40 AM CDT Office Visit [facility] Cancer Care [address] [place] [address] [place] [address] [place] [address] [phone] documented as of this encounter Procedures Procedure [...] outer quadrant was performed by a trained engineer systems. In the left breast 2:00 position 8 cm from the nipple posterior depth there is a group of simple cysts measuring 2.0 x 1.1 x 2.3 cm in aggregate. ?? Leatha Gupta MD MAMMO ORDERABLES documented in this encounter Visit Diagnoses Diagnosis Abnormal mammogram of left breast documented in this encounter
--- OUTSIDE RECORDS SUMMARY | 2024-07-02 05:02 | XMS_ITS | Encounter Summary ---
Author Organization [facility] Address [address] [place] [address] Care Team Providers Care Pest Control Operator Name Role Phone Unavailable Primary Care Provider Unavailabl e Reason for Referral * Radiology Services (Routine) - Closed Specialty Diagnoses / Procedures Referred By Contac t Referred To Contact MRI Diagnoses Mass of right breast, unspecified quadrant Procedures MRI BREAST [place] [address] [address] [place] [address] [facility] Mri [address] [facility] [address] [place] [address] Referral ID Status Reason Start Date Expiration Date Visits Re quested Visits Authorized [id number] Closed 01/19/2023 01/19/2024 1 1 Encounter Details Date Type Department Care Team (Late st Contact Info) Description 01/19/2023 Orders Only [facility] - Surgery [address] [facility], [address] [place] [address] [place] [address] [address] [place] [address] Mass of right breast, unspecified [...] st Contact Info) Description 07/19/2024 9:45 AM CRIMINAL RECORDS TECHNICIAN Office Visit [facility] - MANAGER ER [address] [place] [address] Leatha Gupta MD [address] [place] [address] 12/11/2024 9:00 AM CDT Office Visit [facility] - Surgery [address] [place] [address], [address] [place] [address] [place] [address] [address] [address] 12/11/2024 10:40 AM CDT Office Visit [facility] Cancer Care [address] [place] [address] [place] [address] [place] [address] documented as of this encounter Results [...]
--- OUTSIDE RECORDS SUMMARY | 2024-07-02 05:02 | XMS_ITS | Encounter Summary ---
Author Organization [facility] Address [address] [place] [address] Care Team Providers Care Heat Treat Puller Name Role Phone HoracioNaya Irving DO Unavailable [phone] Bernardo Lizarraga MD Unavailable [phone] Celina Sifuentes MD Primary Care Provider [phone] Reason for Visit * Reason Comments Follow-up Encounter Details Date Type Department Care Team (Late st Contact Info) Description 02/24/2023 10:40 AM CDT Office Visit [facility] Cancer Care [address] [place] [address] Bernardo Lizarraga MD [address] [place] [address] Invasive ductal carcinoma of right breast [...] Lizarraga MD - 02/24/2023 10:40 AM CDT [facility] Follow Up Assessment: Piotr ?? 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 Grade 1, Ki-67 3%. Bilateral [...] Bernardo Lizarraga MD - Hematology/Oncology Available on i[employer] chat during the week Cell# (providers only): [phone] Oncology History: 02/2023 - Diagnosed right breast IDC - ER/IN+, Her2- (1+) - Grade 1, Ki-67 3% 02/2023 - Bilateral mastectomy (Horacio) - [id number] Stage IA - 1.5cm, 0/1 nodes positive. [...] Lizarraga MD - Hematology/Oncology Cell# (providers only) [phone] documented in this encounter Plan of Treatment Upcoming Encounters Date Type Department Care Team (Late st Contact Info) Description 07/19/2024 9:45 AM ONLINE CONTENT DEVELOPER Office Visit [facility] - COMMUTATOR PRESSER [address] [place] [address] Leatha Gupta MD [address] [place] [address] 12/11/2024 9:00 AM CDT Office Visit [facility] - Surgery [address] [place] [address], [address] [place] [address] [place] [address] [address] [place] [address] 12/11/2024 10:40 AM CDT Office Visit [facility] Cancer Care [address] [place] [address] [address] [place] [address] Bernardo Lizarraga MD [address] [place], [place] [address] [facility] [address] [place] [address] documented as of this encounter Visit Diagnoses Diagnosis Invasive ductal carcinoma of right breast (HCC)- Primary Family history of cancer Family history of unspecified malignant neoplasm Benign cyst of breast, unspecified laterality Acute back pain, unspecified back location, unspecified back pain laterality documented in this encounter Care Teams Heat Treat Puller Relationship Specialty Start Date End Date Celina Sifuentes MD [address] [place] [address] PCP - General Family Medicine 02/16/23 11/14/23 [place] [address] [address] [place] [phone] Surgical Oncologist Surgical Oncology 02/15/23 [place] [address] [address] [place] [phone] Studio Technician/Oncologist Hematology and Oncology 02/16/23 documented as of this encounter
--- OUTSIDE RECORDS SUMMARY | 2024-07-02 05:02 | XMS_ITS | Encounter Summary ---
Author Organization [facility] Address [address] [facility] [place] [address] Care Team Providers Care Friction Welding Machine Operator Name Role Phone Unavailable Primary Care Provider Mala singh Encounter Details Date Type Department Care Team (Late Contact Info) Description 01/19/2023 Orders Only [facility] - Surgery [address] [address] Naya Leonard [address] [facility] [address] [place] [address] Social History Tobacco Use Types Packs/Day [...] st Contact Info) Description 07/19/2024 9:45 AM CHILDREN'S CHOIR DIRECTOR Office Visit [facility] - FILTER WASHER AND PRESSER [address] [place] [address] Leatha Gupta MD [address] [place] [address] 12/11/2024 9:00 AM CDT Office Visit [facility] - Surgery [address] [facility], [address] [place] [address] [place] [address] [address] [facility] [address] [place] [address] 12/11/2024 10:40 AM CDT Office Visit [facility] Cancer Care [address] [place] [address] [address] [place] [address] [place] [address] [address] [address] documented as of this encounter Visit Diagnoses Not on filedocumented in this encounter
--- OUTSIDE RECORDS SUMMARY | 2024-07-02 05:02 | XMS_ITS | Encounter Summary ---
Author Organization [facility] Address [address] [place] [address] Care Team Providers Care Information Technology Data Analyst Name Role Phone Unavailable Primary Care Provider Unavailabl e Encounter Details Date Type Department Care Team (Late Contact Info) Description 02/06/2023 Orders Only [facility] - Family Medicine [address] [place] [address] Celina Sifuentes MD [address] [place] [address] Hypercholesteremia Social History Tobacco Use Types [...] (Late Contact Info) Description 07/19/2024 9:45 AM RETAIL SELLING SPECIALIST Office Visit [facility] - BULK PLANT AGENT [address] [place] [address] Leatha Gupta MD [facility] [place] [address] 12/11/2024 9:00 AM CDT Office Visit [facility] Medical [facility] - Surgery [address] [facility], [address] [address] [place] [address] [address] [address] 12/11/2024 10:40 AM CDT Office Visit [facility] [address] [place] [address] [address] [place] [address] [address] documented as of this encounter Visit Diagnoses Diagnosis Hypercholesteremia- Primary Pure hypercholesterolemia documented in this encounter
--- OUTSIDE RECORDS SUMMARY | 2024-07-02 05:02 | XMS_ITS | Encounter Summary ---
Author Organization [facility] Address [address] [place] [address] Care Team Providers Care Network Controller Name Role Phone Horacio Naya Villatoro DO Unavailable [phone] Bernardo Lizarraga MD Unavailable [phone] Celina Sifuentes MD Primary Care Provider [phone] Reason for Visit * Auth/Cert (Routine) Specialty Diagnoses / Procedures Referred By Contlulu t Referred To Contact Procedures [place] EXC NECK FRITZ DEEP = 5 CM EXCISION MASS OR TUMOR CHEST Referral ID Status Reason Start Date Expiration Date Visits Re quested Visits Authorized [id number] 1 1 Encounter Details Date Type Department Care Team (Late st Contact Info) Description 02/25/2023 7:30 AM CDT - 02/25/2023 8:20 AM CDT Surgery [facility] - Perioperative Surgery [address] [place] [address] [place] [address] [facility] [address] [place] [address] Incision and drainage bilateral chest wall seroma and placement Shalom drains ?? Surgery Details Date/Time Status Location OR Service Patient Class Case Class Case Type Trauma Case? 02/25/2023 7:30 AM Posted [facility] MAIN OR OR 04 General Surgery Day [...] daily 14 capsule 02/25/2023 03/17/2023 HYDROcodone-acetaminoph en ([place]) 5-325 MG tabletIndications:Invas albert ductal carcinoma of [...] cause drowsiness. 90 tablet 0 ??? HYDROcodone-acetaminophen ([place]) 5-325 MG tablet Take 1 (one) tablet [...] Melendez MD - 02/25/2023 9:18 AM CDT [facility] OPER[facility]IVE REPORT PATIENT: : BETINA COY MR#: [id number] ADMIT DATE: 02/25/2023 CSN: [id number] DATE OF SURGERY: 02/25/2023 : 1970 PHYSICIAN: Ernesto Melendez MD ROOM: [facility] PREOPERATIVE DIAGNOSIS: Bilateral chest wall seroma. POSTOPERATIVE DIAGNOSIS: Bilateral chest wall seroma. PROCEDURES PERFORMED: Incision and drainage, bilateral chest wall seroma with placement of Shalom drain, left chest wall; placement of Shalom drain, right chest wall. SURGEON: Ernesto Melendez MD, FACS. INSPECTOR STRUCTURAL BONDING: MARIXA Escobar. ANESTHESIA: Local with IV sedation. [...] satisfactory condition. Ernesto Melendez MD JSG/MODL #: [id number] * Brief Op Note - Ernesto Melendez MD - 02/25/2023 7:45 AM CDT Brief Post Operative Note Preoperative Diagnosis: Bilateral chest wall seroma Postoperative Diagnosis: same Procedure: I and D with bilat chest wall drain placement Surgeon: Ernesto Melendez MD Residential Solar Sales Consultant: MARIXA Type of anesthesia: Local, MAC Complications: none EBL: 10 cc Drains: CHANI subcutaneous x 2 documented in this encounter Miscellaneous Notes * Clinical References AVS - Reggie Moon RN - 02/25/2023 8:12 AM CDT Images from the original note were not included. [id number] Discharge Instructions: Caring for Your Ravindra-Harrington Drainage [...] 30 mL) Last Reviewed Date: 2021 ?? 2920-4842 [employer]. All rights reserved. This information is not intended as a substitute for professional medical care. Always follow your healthcare professional's instructions. documented in this encounter Plan of Treatment Upcoming Encounters Date Type Department Care Team (Late st Contact Info) Description 07/19/2024 9:45 AM AUTOMOBILE CLUB INFORMATION CLERK Office Visit [facility] - SECURITY SYSTEMS MANAGER [address] [place] [address] Leatha Gupta MD [address] [place] [address] 12/11/2024 9:00 AM CDT Office Visit [facility] - Surgery [address] [place] [address], [address] [place] [address] [place] [address] [address] 12/11/2024 10:40 AM CDT Office Visit [facility] Cancer Care [address] [place] [address] [address] [place]ardo Lizarraga [place] [address] [place] [address] documented as of this encounter Procedures Procedure Name Priority Date/Time Associated Diagnosis Comments [place] EXC NECK FRITZ DEEP = 5 CM [...] Jamison DO LAB - URINALYSIS ORD ERABLES [facility] [address] [place] [address] documented in this encounter Visit [...] Pre-op documented in this encounter Care Teams Network Controller Relationship Specialty Start Date End Date Celina Sifuentes MD [address] [place] [address] PCP - General Family Medicine 02/16/23 11/14/23 [place] [address] [place] [address] Surgical Oncologist Surgical Oncology 02/15/23 [place] [address] [address] Supply Controller/Oncologist Hematology and Oncology 02/16/23 documented as of this encounter
--- OUTSIDE RECORDS SUMMARY | 2024-07-02 05:02 | XMS_ITS | Encounter Summary ---
Author Organization [facility] Address [address] [facility] [place] [address] Care Team Providers Care Shed Workers Supervisor Name Role Phone Unavailable Primary Care Provider Unavailabl e Reason for Visit * Reason Comments Establish Care Pt here to establish care/Breast cancer(surgery in )/colon screening Encounter Details Date Type Department Care Team (Late st Contact Info) Description 02/05/2023 9:00 AM CDT Office Visit [facility] - Family Medicine [address] [place] [address] Celina Sifuentes MD [address] [place] [address] Hypercholesteremia (Primary Dx); Establishing care with [...] for surgery in February . Follows with MENTAL TELEPATHIST Stated having stiffness in the hand , bilateral hand . Increased with time . Reports stiffness and swelling in the morning , it is more prominent in the thumb . Denies typing Family, Social, and Surgical History Works for [employer] district Past Surgical History: Procedure Laterality Date [...] CHOL, TRIG, HDL, LDLCALC in the last 98191 hours. Recent Labs Component Name 09/07/13 1223 EGFR >60 No results for input(s): HGBA1C in the last 18610 hours. No results for input(s): MICROALBCREA in the last 14200 hours. ???Medication(s) I personally manage have been [...] Voice recognition software was used in the grinding operator of this documentation. There could be bothgrammatical [...] the video go to this web address: [email or web address] Or, scan this QR code with your smart phone ?? [facility] documented in this encounter Plan of Treatment Upcoming Encounters Date Type Department Care Team (Late st Contact Info) Description 07/19/2024 9:45 AM PARCEL CONTRACTOR Office Visit [facility] - MAINTENANCE MECHANIC HELPER [address] [place] [address] Leatha Gupta MD [facility] [place] [address] 12/11/2024 9:00 AM CDT Office Visit [facility] - Surgery [address] [facility], [address] [address] [place] [address] [address] 12/11/2024 10:40 AM CDT Office Visit [facility] Cancer Care [address] [place] [address] Bernardo Lizarraga MD [address] [place] [address] [address] documented as of this encounter [...] Resulting Agency Comment Lab Testing performed at: [place] [address] ?? [facility] [id number] Celina Sifuentes MD LAB - CHEMISTRY O RDERABLES [facility] ACCOUNT BILL [address] [place] [address] * HEMOGLOBIN A1C W EAG (02/05/2023 9:29 [...] or women. ??Falsely low HbA The Kenny Director Of Sales Marketing assay for the measurement of HbA1c is a National Glycohemoglobin Standardization Program (NGSP) certified method. Blood BLOOD SPECIMEN / Unknown 02/05/2023 9:29 AM CDT 02/05/2023 Narrative Resulting Agency Comment Lab Testing performed at: [facility] [id number] [place], [place] [address]l ?? Humberto [place]YTON [id number] Celina Sifuentes MD LAB - CHEMISTRY O RDERABLES [facility] ACCOUNT BILL [address] [place] [address] * CBC WITH DIFFERENTIAL (02/05/2023 9:29 AM [...] x10E9/L [facility] ACCOUNT BILL Comment:MPV FL BLOOD ([facility]) 9 .6 fl 9.4-12.9 Granulocytes % 66.8 [...] Resulting Agency Comment Lab Testing performed at: [place] [address] [facility] ?? [facility] [id number] Celina Sifuentes MD LAB - HEMATOLOGY ORDERABLES Performing Organization Address City/[facility]/ZIP Co de Phone Number [facility] ACCOUNT BILL [address] [place] [address] * HEPATITIS B CORE ANTIBODY IGM (02/05/2023 9:28 AM CDT) Hepatitis B Core Virus Antibody IgM Negative Negative [facility] ACCOUNT BILL Blood BLOOD SPECIMEN / Unknown 02/05/2023 9:28 AM CDT 02/05/2023 Narrative Resulting Agency Comment Lab Testing performed at: [facility] [address] ??[facility] [id number] Celina Sifuentes MD LAB - CHEMISTRY O RDERABLES [facility] ACCOUNT BILL [address] [place] [address] * HEPATITIS B SURFACE ANTIGEN W RFLX CONFIRMATION (02/05/2023 9:28 AM CDT) Hepatitis B Virus Surface Antigen Negative Negative [facility] ACCOUNT BILL Blood BLOOD SPECIMEN / Unknown 02/05/2023 9:28 AM CDT 02/05/2023 Narrative Resulting Agency Comment Lab Testing performed at: [facility] [address] ??[facility] [phone] Celina Sifuentes MD LAB - CHEMISTRY O ELDON Performing Organization Address [facility] de Phone Number [facility] ACCOUNT BILL [address] [place] [address] * HEPATITIS B SURFACE ANTIBODY (02/05/2023 9:28 AM CDT) Hepatitis B Virus Surface Antibody Non Reactive [facility] ACCOUNT BILL Comment: ? Non Reactive: Inconsistent with immunity, ? less than 10 mIU/mL ? Reactive: ? Consistent with immunity, ? greater than 9.9 mIU/mL Blood BLOOD SPECIMEN / Unknown 02/05/2023 9:28 AM CDT 02/05/2023 Narrative Resulting Agency Comment Lab Testing performed at: [facility] ??[facility] [phone] Celina Sifuentes MD LAB - CHEMISTRY O ELDON Performing Organization Address [facility] de Phone Number [facility] ACCOUNT BILL [address] [place] [address] * HIV-1 HIV-2 ANTIBODY + HIV P24 AG PANEL (02/05/2023 9:28 AM CDT) Pathologist [facility] HIV Screen 4th Generation w Reflex Non Reactive Non Reactive [facility] ACCOUNT BILL Comment: HIV Negative HIV-1/HIV-2 antibodies and HIV-1 p24 antigen were NOT detected. There is no laboratory evidence of HIV infection. Blood BLOOD SPECIMEN / Unknown 02/05/2023 9:28 AM CDT 02/05/2023 Narrative Resulting Agency Comment Lab Testing performed at: [facility] [address] ??[facility] [phone] Celina Sifuentes MD LAB - CHEMISTRY O RDERABLES [facility] ACCOUNT BILL [address] [place] [address] * HEPATITIS C ANTIBODY (02/05/2023 9:28 AM [...] Agency Comment Lab Testing performed at: [facility] [address] ??[facility] [id number] Celina Sifuentes MD LAB - CHEMISTRY O RDERABLES [facility] ACCOUNT BILL [address] [place] [address] documented in this encounter Visit Diagnoses Diagnosis [...]
--- OUTSIDE RECORDS SUMMARY | 2024-07-02 05:02 | XMS_ITS | Encounter Summary ---
Author Organization [facility] Address [address] [place] [address] Care Team Providers Care Open Hearth Helper Name Role Phone Naya Leonard DO Unavailable [phone] Bernardo Lizarraga MD Unavailable [phone] Celina Sifuentes MD Primary Care Provider [phone] Reason for Visit * Reason Onset Date Comments Question 03/10/2023 Encounter Details Date Type Department Care Team (Late st Contact Info) Description 03/10/2023 Telephone [facility] Medical Group - Surgery [address] [place] [address] Naya Leonard, [address] [address] Question Social History Tobacco Use [...] st Contact Info) Description 07/19/2024 9:45 AM HULL SORTER Office Visit [facility] - THREAD INSPECTOR [address] [place] [address] Leatha Gupta MD [address] [place] [address] 12/11/2024 9:00 AM CDT Office Visit [facility] - Surgery [address] [facility], [address] [place] [address] [place] [address] [address] [facility] [address] [place] [address] 12/11/2024 10:40 AM CDT Office Visit [facility] Cancer Care [address] [place] [address] [address]. [address] [place] [address] [place] [address] [address] [place] [address] documented as of this encounter Visit Diagnoses Not on filedocumented in this encounter Care Teams Open Hearth Helper Relationship Specialty Start Date End Date Celina Sifuentes MD [address] [place] [address] PCP - General Family Medicine 02/16/23 11/14/23 [place] [address] [address] [place] [address] Surgical Oncologist Surgical Oncology 02/15/23 [place] [address] [address] [place] [address] Administrative Assistant/Oncologist Hematology and Oncology 02/16/23 documented as of this encounter
--- OUTSIDE RECORDS SUMMARY | 2024-07-02 05:02 | XMS_ITS | Encounter Summary ---
Author Organization [facility] Address [address] [place] [address] Care Team Providers Care Cashier Manager Name Role Phone Unavailable Primary Care Provider Unavailabl e Reason for Visit * Reason Comments Well Women Exam last WWE 05/14/20 Encounter Details Date Type Department Care Team (Late st Contact Info) Description 05/22/2021 1:45 PM POWDER TRUCK DRIVER Office Visit [facility] Medical [facility] - LIFE SCIENCE TECHNICIAN [address] [place] [address] Leatha Gupta MD [address] [place] [address] Well woman exam (Primary Dx); [...] Comments Blood Pressure 113/68 05/22/2021 1:09 PM POWDER TRUCK DRIVER Pulse 73 05/22/2021 1:09 PM POWDER TRUCK DRIVER Temperature - - Respiratory Rate - - Oxygen Saturation - - Inhaled Oxygen Concentration - - Weight 86.6 kg (191 lb) 05/22/2021 1:09 PM POWDER TRUCK DRIVER Height 162.6 cm (5' 4 ) 05/22/2021 1:09 PM POWDER TRUCK DRIVER Body Mass Index 32.79 05/22/2021 1:09 PM POWDER TRUCK DRIVER documented in this encounter Progress Notes * [...] any lesions or abnormalities. Normal Bartholin's and Maguayo's. Vagina: Moist, pink rugae without any lesions. [...] orders, medications, patient instructions. Leatha Gupta MD ER TRUCK DRIVER documented in this encounter Plan of Treatment Upcoming Encounters Date Type Department Care Team (Late st Contact Info) Description 07/19/2024 9:45 AM POWDER TRUCK DRIVER Office Visit [facility] - LIFE SCIENCE TECHNICIAN [address] [place] [address] Leatha Gupta MD [facility] [place] [address] 12/11/2024 9:00 AM CDT Office Visit [facility] - Surgery [address] [facility], [address] [address] [place] [address] [address] 12/11/2024 10:40 AM CDT Office Visit [facility] Cancer Care [address] [place] [address] [address] [place] [address] [address] [address] documented as of this encounter Visit Diagnoses Diagnosis Well woman exam- Primary Routine general medical examination at a health care facility Uses oral contraception documented in this encounter
--- OUTSIDE RECORDS SUMMARY | 2024-07-02 05:02 | XMS_ITS | Encounter Summary ---
Author Organization [facility] Address [address] [place] [address] Care Team Providers Care Radiographer Technologist Name Role Phone Naya Leonard Irving DO Unavailable [phone] Bernardo Lizarraga MD Unavailable [phone] Celina Sifuentes MD Primary Care Provider [phone] Keisha Pineda Primary Care Pr ovider Encounter Details Date Type Department Care Team (Late st Contact Info) Description 02/24/2023 [facility] Outpatient Visit [facility] Care [address] [place] [address] [place] [id number] [place] [address] Social History Tobacco Use Types Packs/Day [...] st Contact Info) Description 07/19/2024 9:45 AM MARKETING PRODUCTION COORDINATOR Office Visit [facility] - WINDOW DRAPER [address] [place] [address] Leatha Gupta MD [address] [facility] [place] [address] 12/11/2024 9:00 AM CDT Office Visit [facility] - Surgery [address] [facility], [address] [place] [address] [place] [address] [address] 12/11/2024 10:40 AM CDT Office Visit [facility] Cancer Care [address] [place] [address] [address]anael. [address] [place] [address] [place] [address] [facility] [address] [place] [address] documented as of this encounter Visit Diagnoses Not on filedocumented in this encounter Care Teams Radiographer Technologist Relationship Specialty Start Date End Date Celina Sifuentes MD [address] [facility] [place] [address] PCP - General Family Medicine 02/16/23 11/14/23 Keisha Pineda PA [address] [place] [phone] PCP - General Physician Writer Editor 11/15/23 [place] [address] [address] Surgical Oncologist Surgical Oncology 02/15/23 [place] [address] [place] [phone] Tinning Equipment Tender/Oncologist Hematology and Oncology 02/16/23 documented as of this encounter
--- OUTSIDE RECORDS SUMMARY | 2024-07-02 05:02 | XMS_ITS | Encounter Summary ---
Author Organization [facility] Address [address] [facility] [place] [address] Care Team Providers Care Gang Saw Operator Name Role Phone Unavailable Primary Care Provider Unavailabl e Reason for Visit * Radiology Services (Routine) - Closed Specialty Diagnoses / Procedures Referred By Contac t Referred To Contact Diagnoses Encounter for screening mammogram for malignant neoplasm of breast Procedures US BREAST BILATERAL LTD US BREAST LEFT LTD Leatha Gupta MD [address] [place] [address] Referral ID Status Reason Start Date Expiration Date Visits Re quested Visits Authorized [id number] Closed 12/30/2022 12/30/2023 1 1 Encounter Details Date Type Department Care Team (Latest Contact Info) Description 12/30/2022 9:07 AM CDT - 12/30/2022 11:59 PM CDT Hospital Encounter [facility] Imaging Services - Ultrasound [address] [place] [address] Discharge Disposition: Home or Self Care [...] st Contact Info) Description 07/19/2024 9:45 AM MACHINE OPERATOR FARMWORKER Office Visit [facility] - DECORATING MACHINE TENDER [address] [place] [address] Leatha Gupta MD [address] [place] [address] 12/11/2024 9:00 AM CDT Office Visit [facility] - Surgery [address] [place] [address], [address] [address] [place] [address] [facility] [address] [address] 12/11/2024 10:40 AM CDT Office Visit [facility] Cancer Care [address] [place] [address] [place] [address] [place] [address] documented as of this encounter Procedures [...] will be scheduled to return to the [facility] for biopsy . > Interpreting Provider: Maddi [...] BOTH breasts was performed by a trained irrigator sprinkling system and by Dr. Maddi Landeros. BREAST PARENCHYMAL [...]
--- OUTSIDE RECORDS SUMMARY | 2024-07-02 05:02 | XMS_ITS | Encounter Summary ---
Author Organization [facility] Address [address] [facility] [place] [address] Care Team Providers Care Respiratory Scientist Name Role Phone Unavailable Primary Care Provider Unavailabl e Reason for Referral * Radiology Services (Routine) - Closed Specialty Diagnoses / Procedures Referred By Contac t Referred To Contact Diagnoses Mass of right breast, unspecified quadrant Procedures NM [place] [address] [address] [place] [address] [facility] [address] [place] [address] Referral ID Status Reason Start Date Expiration Date Visits Re quested Visits Authorized [id number] Closed 02/02/2023 02/02/2024 1 1 * Consultation (Routine) - Closed Specialty Diagnoses / Procedures Referred By Contac t Referred To Contact Hematology / Oncology-Medical Diagnoses Mass of right breast, [place] [address] [address] [place] [address] [place] [address] [address] [place] [address] Referral ID Status Reason Start Date Expiration Date V isits Requested Visits Authorized [id number] Closed Specialty Services Required 02/02/2023 02/02/2024 1 1 * Consultation (Routine) - Closed Specialty Diagnoses / Procedures Referred By Sherie jacobo Referred To Contact Diagnoses Mass of right breast, [place] [address] [address] [place] [address] Claribel Lima, [address] [place] [address] Referral ID Status Reason Start Date Expiration Date V isits Requested Visits Authorized [id number] Closed Specialty Services Required 02/02/2023 02/02/2024 1 1 Reason for Visit * Reason Comments Evaluation Breast ca Encounter Details Date Type Department Care Team (Late st Contact Info) Description 01/25/2023 9:00 AM CDT Office Visit [facility] - Surgery [address] [facility], [address] [place] [address] [place] [address] [address] [place] [address] Mass of right breast, unspecified quadrant [...] Surgeon: Place: [] Ovi Rose M.D. [x] [facility] 2nd Floor [facility]. [] Mukund Azevedo M.D. [] [facility] [] Ernesto Melendez M.D. Ground Floor/[facility]. [] Dior Heard M.D. 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 Thecalcifications revealed DCIS, ER/CA positive. Patient underwent breast MRI which showed [...] BOTH breasts was performed by a trained screen printing machine loader unloader and by Dr. Maddi Landeros. BREAST PARENCHYMAL [...] contiguous extent (minimum tumor size) ?? -- [place] grade 1 of 3 ?? -- Moderate [...] ER: Positive ( 70 %, moderate intensity) CA: Positive ( 90 %, strong intensity) Her-2-brittany: Not over-expressed (score 1+) Ki-67: Low proliferation/favorable ( 3 %) ?? Specimen B (right breast calcifications): ER: Positive ( >95 %, strong intensity) CA: Positive ( 50 %, moderate intensity) Assessment: [...] st Contact Info) Description 07/19/2024 9:45 AM BODY SHOP MANAGER Office Visit [facility] - MANAGER GREEN [address] [place] [address] Leatha Gupta MD [address] [place] [phone] 12/11/2024 9:00 AM CDT Office Visit [facility] - Surgery [address] [place] [address], [address] [place] [address] Naya Leonard DO [address] [place] [address] [address] [place] [address] 12/11/2024 10:40 AM CDT Office Visit [facility] [address] [facility] [address] [place] [phone] [place] [address] [facility] [address] [place] [address] Scheduled Referrals Name Type Priority Associated Diagnoses [...]
--- OUTSIDE RECORDS SUMMARY | 2024-07-02 05:02 | XMS_ITS | Encounter Summary ---
Author Organization [facility] Address [address] [facility] [place] [address] Care Team Providers Care Employment Interviewer Name Role Phone Unavailable Primary Care Provider Unavailabl e Reason for Visit * Reason Onset Date Comments Question 01/19/2023 Encounter Details Date Type Department Care Team (Late st Contact Info) Description 01/19/2023 Telephone [facility] Medical Group - Surgery [address] [place] [address] [place] [address] [address] Question Social History Tobacco Use [...] she needs to get order from Dr. Lynn's office for MRI. documented in this encounter Plan of Treatment Upcoming Encounters Date Type Department Care Team (Late st Contact Info) Description 07/19/2024 9:45 AM HOUSE FURNISHINGS SUPERVISOR Office Visit [facility] - CAN FEEDER [address] [place] [address] Leatha Gupta MD [address] [place] [address] 12/11/2024 9:00 AM CDT Office Visit [facility] - Surgery [address] [facility] [place] [address] [place] [address] [place] [address] [facility] [address] [place] [address] 12/11/2024 10:40 AM CDT Office Visit [facility] Cancer Care [address] [place] [address] [address] [place] [address] [place] [address] [place] [address] [facility] [address] [place] [address] documented as of this encounter Visit Diagnoses Not on filedocumented in this encounter
--- OUTSIDE RECORDS SUMMARY | 2024-07-02 05:02 | XMS_ITS | Encounter Summary ---
Author Organization [facility] Address [address] [facility] [place] [address] Care Team Providers Care Fitter Up Name Role Phone Naya Leonard Irving DO Unavailable [phone] Bernardo Lizarraga MD Unavailable [phone] Celina Sifuentes MD Primary Care Provider [phone] Reason for Visit * Reason Comments Post-Op Bilat Mast CHANI drain placement Encounter Details Date Type Department Care Team (Late st Contact Info) Description 03/03/2023 10:00 AM CDT Office Visit [facility] Medical Group - Surgery [address] [place] [address], [address] [address] Ernesto Melendez MD [address] [place] [address] Postop check (Primary Dx) Social History [...] st Contact Info) Description 07/19/2024 9:45 AM PACK ROOM OPERATOR Office Visit [facility] Medical Group - ORGANIZATIONAL DEVELOPMENT CONSULTANT [address] [place] [phone] Leatha Gupta MD [address] [place] [place] [phone] 12/11/2024 9:00 AM CDT Office Visit [facility] Medical [facility] - Surgery [address] [facility], [address] [place] [address] [place] [address] [address] [facility] [address] [place] [address] 12/11/2024 10:40 AM CDT Office Visit [facility] Cancer Care [address] [facility] [address] [place] [address] [place] [address] [address] [facility] 100 [place] [address] documented as of this encounter Visit Diagnoses Diagnosis Postop check- Primary Follow-up examination, following unspecified surgery documented in this encounter Care Teams Fitter Up Relationship Specialty Start Date End Date Celina Sifuentes MD [address] [place] [address] PCP - General Family Medicine 02/16/23 11/14/23 [place] [address] [address] [facility] [address] [place] [address] Surgical Oncologist Surgical Oncology 02/15/23 [place] [address] [address] [facility] 100 [place] [address] Clay Roaster/Oncologist Hematology and Oncology 02/16/23 documented as of this encounter
--- OUTSIDE RECORDS SUMMARY | 2024-07-02 05:02 | XMS_ITS | Encounter Summary ---
Author Organization [facility] Address [address] [place] [address] Care Team Providers Care Field Marketer Name Role Phone Unavailable Primary Care Provider Unavailabl e Encounter Details Date Type Department Care Team (Late st Contact Info) Description 02/05/2023 9:38 AM CDT - 02/05/2023 11:59 PM CDT Hospital Encounter [facility] Urgent Care - Medical Imaging [address] [place] [address] Celina Sifuentes MD [address] [place] [address] Discharge Disposition: Home or Self Care Social [...] Refills Start Date End Date HYDROcodone-acetaminophe n ([place]) 5-325 MG tabletIndications:Invasi ve ductal carcinoma of breast, female, right (HCC) Take 1 (one) tablet by mouth every 6 hours as needed for Pain 20 tablet 02/18/2023 02/18/2023 HYDROcodone-acetaminophe n ([place]) 5-325 MG tabletIndications:Invasi ve ductal carcinoma of [...] 9:45 AM RADIAL DRILL OPERATOR Office Visit [facility] - CHANNEL EXECUTIVE [address] [place] [address] Leatha Gupta MD [address] [place] [address] 12/11/2024 9:00 AM CDT Office Visit [facility] - Surgery [address] [facility], [address] [place] [address] [place] [address] [address] 12/11/2024 10:40 AM CDT Office Visit [facility] Cancer Care [address] [place] [address] [place] [phone] [place]ardo Lizarraga MD [id number] [place] [address] documented as of this encounter Procedures [...]
--- OUTSIDE RECORDS SUMMARY | 2024-07-02 05:02 | XMS_ITS | Encounter Summary ---
Author Organization [facility] Address [address] [facility] [place] [address] Care Team Providers Care Terrazzo Laborer Name Role Phone HoracioNaya Irving DO Unavailable [phone] Bernardo Lizarraga MD Unavailable [phone] Celina Sifuentes MD Primary Care Provider [phone] Reason for Visit * Reason Comments Post-Op Bilat Mast Encounter Details Date Type Department Care Team (Latest Contact Info) Description 03/10/2023 2:00 PM CDT Clinical Support [facility] - Surgery [address] [place] [address], [address] [address] Surgery follow-up ; Postop check; [...] st Contact Info) Description 07/19/2024 9:45 AM SEA FOAM KISS MAKER Office Visit [facility] - ACCOUNTS RECEIVABLE SPECIALIST [address] [place] [address] Leatha Gupta MD [address] [place] [address] 12/11/2024 9:00 AM CDT Office Visit [facility] - Surgery [address] [address] [place] [address] [place] [address] 12/11/2024 10:40 AM CDT Office Visit [facility] [address] [facility] Jacob Natanael. [address] [place] [address] [place] [address] [address] [place] [address] documented as of this encounter Visit Diagnoses Diagnosis Surgery follow-up- Primary Follow-up examination, following unspecified surgery Postop check Follow-up examination, following unspecified surgery S/P bilateral mastectomy Acquired absence of breast and nipple documented in this encounter Care Teams Terrazzo Laborer Relationship Specialty Start Date End Date Celina Sifuentes MD [address] [place] [address] PCP - General Family Medicine 02/16/23 11/14/23 [place] [address] [address] [place] [address] Surgical Oncologist Surgical Oncology 02/15/23 [place] [address] [address] [facility] [address] [place] [address] Concrete Batching Plant Operator/Oncologist Hematology and Oncology 02/16/23 documented as of this encounter
--- OUTSIDE RECORDS SUMMARY | 2024-07-02 05:02 | XMS_ITS | Encounter Summary ---
Author Organization [facility] Address [address] [facility] [address] [place] [address] Care Team Providers Care Access Developer Name Role Phone Unavailable Primary Care Provider [...] st Contact Info) Description 07/19/2024 9:45 AM DOCUMENT EXAMINER Office Visit [facility] - MANAGER MARKETING [address] [address] Leatha Gupta MD [address] [place] [address] 12/11/2024 9:00 AM CDT Office Visit [facility] - Surgery [address] [facility], [address] [place] [address] [place] [address] [address] [address] 12/11/2024 10:40 AM CDT Office Visit [facility] Cancer Care [address] [place] [address] [address] [place] [address] [facility] [address] [address] documented as of this encounter Visit Diagnoses Not on filedocumented in this encounter
--- OUTSIDE RECORDS SUMMARY | 2024-07-02 05:02 | XMS_ITS | Encounter Summary ---
Author Organization [facility] Address [address] [facility] [place] [address] Care Team Providers Care Lumber Tailer Name Role Phone Unavailable Primary Care Provider Unavailabl e Reason for Referral * Radiology Services (Routine) - Closed Specialty Diagnoses / Procedures Referred By Contac t Referred To Contact Diagnoses S/P breast biopsy, right Procedures MAMMO RIGHT POST CLIP OR WIRE Leatha Gupta MD [address] [address] Referral ID Status Reason Start Date Expiration Date Visits Re quested Visits Authorized [id number] Closed 01/06/2023 01/06/2024 1 1 Reason for Visit * Radiology Services (Routine) - Closed Specialty Diagnoses / Procedures Referred By Contac t Referred To Contact Diagnoses S/P breast biopsy, right Procedures MAMMO RIGHT POST CLIP OR WIRE Leatha Gupta MD [address] [place] [address] Referral ID Status Reason Start Date Expiration Date Visits Re quested Visits Authorized [id number] Closed 01/06/2023 01/06/2024 1 1 Encounter Details Date Type Department Care Team (Latest Contact Info) Description 01/06/2023 9:58 AM CDT - 01/06/2023 11:59 PM CDT Hospital Encounter [facility] Breast Care [address] [place] [address] Discharge Disposition: Home or Self Care Social [...] st Contact Info) Description 07/19/2024 9:45 AM PUBLIC HEALTH DOCTOR Office Visit [facility] - MEDIA SERVICES COORDINATOR [address] [place] [address] Leatha Gupta MD [address] [place] [address] 12/11/2024 9:00 AM CDT Office Visit [facility] - Surgery [address] [place] [address], [address] [phone] [place] [address] [facility] [address] [phone] 12/11/2024 10:40 AM CDT Office Visit [facility] Cancer Care [address] [place] [phone] [place] [address] [place] [address] [phone] documented as of this encounter Procedures Procedure [...]
--- OUTSIDE RECORDS SUMMARY | 2024-07-02 05:02 | XMS_ITS | Encounter Summary ---
Author Organization [facility] Address [address] [facility] [place] [address] Care Team Providers Care Lockstitch Lining Maker Name Role Phone HoracioNaya Irving GALLO Unavailable Bernardo Lizarraga MD Unavailable [phone] Celina Sifuentes MD Primary Care Provider [phone] Reason for Visit * Reason Onset Date Comments Surgery Scheduling 02/17/2023 Encounter Details Date Type Department Care Team (Late st Contact Info) Description 02/17/2023 Telephone [facility] - [address] [address] [place] [address] [address] [address] Surgery Scheduling Social History Tobacco [...] 10:24 AM CDT RICKY DEJESUS M.D. OFFICE: [phone] COLONOSCOPY NOTIFY OUR OFFICE IF YOU ARE [...] with [place]. >[place] [address] [facility] Building 2nd Floor Surgery Waiting room at 9:30AM >Your procedure is scheduled for 10:30 >You will be given medication for this procedure. YOU MUST HAVE A ZONING ASSISTANT PRESENT TO TAKE YOU HOME. >It is ultimately your responsibility to verify insurance coverage and obtain Referral if needed. IF YOU HAVE QUESTIONS PLEASE CALL THE OFFICE AT [phone]. documented in this encounter Miscellaneous Notes * [...] st Contact Info) Description 07/19/2024 9:45 AM GRINDER NEEDLE TIP Office Visit [facility] - PASSPORT APPLICATION EXAMINER [address] [place] [address] Leatha Gupta MD [address] [place] [address] 12/11/2024 9:00 AM CDT Office Visit [facility] - Surgery [address] [facility], [address] [place] [address] [place] [address] [address] [facility] [address] [place] [address] 12/11/2024 10:40 AM CDT Office Visit [facility] Cancer Care [address] [facility] Natanael. [address] [place] [address] [place] [address] [address] [facility] 100 [place] [address] documented as of this encounter Visit Diagnoses Not on filedocumented in this encounter Care Teams Lockstitch Lining Maker Relationship Specialty Start Date End Date Celina Sifuentes MD [address] [place] [address] PCP - General Family Medicine 02/16/23 11/14/23 [place] [address] [address] [facility] [address] [place] [address] Surgical Oncologist Surgical Oncology 02/15/23 [place] [address] [address] [facility] 100 [place] [address] Windows Vmware Engineer/Oncologist Hematology and Oncology 02/16/23 documented as of this encounter
--- OUTSIDE RECORDS SUMMARY | 2024-07-02 05:02 | XMS_ITS | Encounter Summary ---
Author Organization [facility] Address [address] [place] [address] Care Team Providers Care General Dentist Name Role Phone HoracioNaya Irving DO Unavailable [phone] Bernardo Lizarraga MD Unavailable [phone] Celina Sifuentes MD Primary Care Provider [phone] Reason for Visit * Reason Comments Post-Op Bilat mast Encounter Details Date Type Department Care Team (Latest Contact Info) Description 02/19/2023 8:30 AM CDT Clinical Support [facility] [place] [facility] Medical [facility] - Surgery [address] [place] [address], [address] [address] S/P bilateral mastectomy ; Surgery [...] st Contact Info) Description 07/19/2024 9:45 AM VETERINARY ANATOMIST Office Visit [facility] - PRE BILLING CLINICIAN [address] [place] [address] Leatha Gupta MD [address] [place] [address] 12/11/2024 9:00 AM CDT Office Visit [facility] - Surgery [address] [facility], [address] [address] [place] [address] [place] [phone] 12/11/2024 10:40 AM CDT Office Visit [facility] Cancer Care [address] [place] [address] [address] [place] [address] [place] [address] [place] [address] documented as of this encounter Visit Diagnoses Diagnosis S/P bilateral mastectomy- Primary Acquired absence of breast and nipple Surgery follow-up Follow-up examination, following unspecified surgery documented in this encounter Care Teams General Dentist Relationship Specialty Start Date End Date Celina Sifuentes MD [address] [place] [address] PCP - General Family Medicine 02/16/23 11/14/23 [place] [address] [address] [phone] Surgical Oncologist Surgical Oncology 02/15/23 [place] [address] [facility] 100 [place] [phone] Capital Markets Specialist/Oncologist Hematology and Oncology 02/16/23 documented as of this encounter
--- OUTSIDE RECORDS SUMMARY | 2024-07-02 05:02 | XMS_ITS | Encounter Summary ---
Author Organization [facility] Address [address] [facility] [place] [address] Care Team Providers Care Window/Distribution Clerk Name Role Phone Naya Leonard DO Unavailable [phone] Bernardo Lizarraga MD Unavailable [phone] Celina Sifuentes MD Primary Care Provider [phone] Reason for Visit * Reason Onset Date Comments Question 03/16/2023 Encounter Details Date Type Department Care Team (Late st Contact Info) Description 03/16/2023 Telephone [facility] Medical Group - Surgery [address] [place] [address] Naya Leonard, [address] [address] Question Social History Tobacco Use [...] st Contact Info) Description 07/19/2024 9:45 AM SMOKING TOBACCO PACKING MACHINE HAND Office Visit [facility] - COUNTER MOLDER [address] [facility] [place] [address] Leatha Gupta MD [address] [place] [address] 12/11/2024 9:00 AM CDT Office Visit [facility] - Surgery [address] [facility], [address] [address] [place] [address] [address] 12/11/2024 10:40 AM CDT Office Visit [facility] Cancer Care [address] [place] [address] [place] [address] [place] [address] [address] documented as of this encounter Visit Diagnoses Not on filedocumented in this encounter Care Teams Window/Distribution Clerk Relationship Specialty Start Date End Date Celina Sifuentes MD [address] [place] [address] PCP - General Family Medicine 02/16/23 11/14/23 [place] [address] [place] [address] Surgical Oncologist Surgical Oncology 02/15/23 [place] [address] [address] [place] [address] Shuttleless Loom Weaver/Oncologist Hematology and Oncology 02/16/23 documented as of this encounter
--- OUTSIDE RECORDS SUMMARY | 2024-07-02 05:02 | XMS_ITS | Encounter Summary ---
Author Organization [facility] Address [address] [facility] [place] [address] Care Team Providers Care Filler Block Inserter Remover Name Role Phone Unavailable Primary Care Provider Unavailabl e Reason for Referral * Radiology Services (Routine) - Closed Specialty Diagnoses / Procedures Referred By Contac t Referred To Contact Diagnoses Abnormal mammogram of left breast Procedures US BREAST LEFT LTD Leatha Gupta MD [address] [place] [address] Referral ID Status Reason Start Date Expiration Date Visits Re quested Visits Authorized Closed 12/24/2021 12/24/2022 1 1 Encounter Details Date Type Department Care Team (Late st Contact Info) Description 12/24/2021 Orders Only [facility] - FOREST FIRE EQUIPMENT OPERATOR [address] [place] [address] Leatha Gupta MD [address] [place] [place] [address] Abnormal mammogram of left breast Social [...] st Contact Info) Description 07/19/2024 9:45 AM LABEL DESIGNER Office Visit [facility] - FOREST FIRE EQUIPMENT OPERATOR [address] [place] [address] Leatha Gupta MD [address] [place] [address] 12/11/2024 9:00 AM CDT Office Visit [facility] - Surgery [address] [facility], [address] [place] [address] [place] [address] [address] [address] 12/11/2024 10:40 AM CDT Office Visit [facility] Cancer Care [address] [place] [address] [address] [place] [address] Bernardo Lizarraga MD [address] [place] [address] [address] [place] [address] documented as of this encounter [...] outer quadrant was performed by a trained director of religious activities. In the left breast 2:00 position 8 [...]
--- OUTSIDE RECORDS SUMMARY | 2024-07-02 05:02 | XMS_ITS | Encounter Summary ---
Author Organization [facility] Address [address] [place] [address] Care Team Providers Care Reforestation Worker Name Role Phone Unavailable Primary Care Provider Unavailabl e Reason for Visit * Radiology Services (Routine) - Closed Specialty Diagnoses / Procedures Referred By Cristinaac t Referred To Contact MRI Diagnoses Mass of right breast, unspecified quadrant Procedures MRI [place] [address] [place] [address] [facility] Mri [address] [address] Referral ID Status Reason Start Date Expiration Date Visits Re quested Visits Authorized [id number] Closed 01/19/2023 01/19/2024 1 1 Encounter Details Date Type Department Care Team (Latest Contact Info) Description 01/19/2023 1:32 PM CDT - 01/19/2023 11:59 PM CDT Hospital Encounter [facility] Imaging Services - MRI [address] [facility] 104 [place] [address] Discharge Disposition: Home or Self [...] st Contact Info) Description 07/19/2024 9:45 AM PROTEIN SCIENTIST Office Visit [facility] - INSOLE STIFFENER [address] [place] [address] Leatha Gupta MD [address] [place] [address] 12/11/2024 9:00 AM CDT Office Visit [facility] - Surgery [address] [place] [address], [address] [address] [place] [address] [address] 12/11/2024 10:40 AM CDT Office Visit [facility] Cancer Care [address] [place] [address] [address]. [address] [place] [phone] Bernardo Lizarraga MD [address] [place] [address] documented as of this encounter Procedures [...]
--- OUTSIDE RECORDS SUMMARY | 2024-07-02 05:02 | XMS_ITS | Encounter Summary ---
Author Organization [facility] Address [address] [facility] [place] [address] Care Team Providers Care Downstream Biomanufacturing Technician Name Role Phone Unavailable Primary Care Provider Unavailabl e Reason for Visit * Reason Onset Date Comments Well Women Exam Imm Inj 05/26/2022 Encounter Details Date Type Department Care Team (Late st Contact Info) Description 05/26/2022 10:30 AM HI LOW TRUCK DRIVER Office Visit [facility] - MEAL ATTENDANT [address] [place] [address] Leatha Gupta MD [address] [place] [address] Well woman exam (Primary Dx); [...] Comments Blood Pressure 123/73 05/26/2022 10:33 AM HI LOW TRUCK DRIVER Pulse 78 05/26/2022 10:33 AM HI LOW TRUCK DRIVER Temperature - - Respiratory Rate - - Oxygen Saturation - - Inhaled Oxygen Concentration - - Weight 93 kg (205 lb) 05/26/2022 10:33 AM HI LOW TRUCK DRIVER Height 162.6 cm (5' 4 ) 05/26/2022 10:33 AM HI LOW TRUCK DRIVER Body Mass Index 35.19 05/26/2022 10:33 AM HI LOW TRUCK DRIVER documented in this encounter Progress [...] any lesions or abnormalities. Normal Bartholin's and [place]'s. Vagina: Moist, pink rugae without any lesions. [...] orders, medications, patient instructions. Leatha Gupta MD LOW TRUCK DRIVER * Kacey Yu - 05/26/2022 10:37 AM CST Flu screening checklist was reviewed with the patient. VIS was given prior to administration. Injection site aseptically cleansed and injection given per Immunization(s) protocol. See Imm/Injections activity for details. LOW TRUCK DRIVER documented in this encounter Plan of Treatment Upcoming Encounters Date Type Department Care Team (Late st Contact Info) Description 07/19/2024 9:45 AM HI LOW TRUCK DRIVER Office Visit [facility] - MEAL ATTENDANT [address] [place] [address] Leatha Gupta MD [address] [place] [phone] 12/11/2024 9:00 AM CDT Office Visit [facility] - Surgery [address] [facility], [address] [place] [address] [place] [address] [facility] [address] [place] [address] 12/11/2024 10:40 AM CDT Office Visit [facility] Cancer [address] [phone] [place] [address] [address] documented as of this encounter Visit Diagnoses Diagnosis Well woman exam- Primary Routine general medical examination at a health care facility Uses oral contraception Need for prophylactic vaccination and inoculation against influenza DUB (dysfunctional uterine bleeding) Other disorder of menstruation and other abnormal bleeding from female genital tract documented in this encounter
--- OUTSIDE RECORDS SUMMARY | 2024-07-02 05:02 | XMS_ITS | Encounter Summary ---
Author Organization [facility] Address [address] [facility] [place] [address] Care Team Providers Care Spring Setter Name Role Phone Naya Leonard Irving DO Unavailable [phone] Bernardo Lizarraga MD Unavailable [phone] Celina Sifuentes MD Primary Care Provider [phone] Reason for Visit * Reason Comments Sore [...] 02/19/2023 6:06 AM CDT Emergency ER at [place] [id number] Angie Rodriguez MD [address] [place] [address] [address] [place], [place] [id number] Streptococcal sore throat (Primary Dx) Discharge Disposition: [...] 100 tablet 4 02/06/2023 11/15/2023 HYDROcodone-acetaminoph en ([place]) 5-325 MG tabletIndications:Invas albert ductal carcinoma of [...] 02/19/2023 4:28 AM CDT Betina Villatoro Anneliese [address] [facility] History Chief Complaint Patient presents [...] at bedtime 100 tablet 4 ??? HYDROcodone-acetaminophen ([place]) 5-325 MG tablet Take 1 (one) tablet [...] Contact Info) Description 07/19/2024 9:45 AM LEAD TECHNICAL ARCHITECT Office Visit [facility] - TRACK WALKER [address] [place] [address] Leatha Gupta MD [facility] [place] [address] 12/11/2024 9:00 AM CDT Office Visit [facility] - Surgery [address] [place] [address], [address] [address] Naya Leonard DO [address] [place] [address] [address] 12/11/2024 10:40 AM CDT Office Visit [facility] Cancer Care [address] [place] [address] Bernardo Lizarraga MD [address] [place] [address] [address] documented as of this encounter Procedures Procedure Name Priority Date/Time Associated Diagnosis Comments STREP A SCREEN DIRECT W RFLX STREP A CULTURE STAT 02/19/2023 4:33 AM CDT documented in this encounter Results * (ABNORMAL) STREP A SCREEN DIRECT W RFLX STREP A CULTURE (02/19/2023 4:33 AM CDT) Strep A Rapid Positive(A ) Negative 02/19/2023 4:57 AM CDT [facility] Microbiology ENTIRE THROAT (SURFACE REGION OF NECK) / Unknown Collection / Unknown 02/19/2023 4:33 AM CDT 02/19/2023 4:38 AM CDT Angie Rodriguez MD LAB - MICROBIOLOGY ORDERABLES [facility] [address] [place] [address] documented in this encounter Visit [...] RN) documented in this encounter Care Teams Spring Setter Relationship Specialty Start Date End Date Celina Sifuentes MD [address] [place] [address] PCP - General Family Medicine 02/16/23 11/14/23 [place] [address] [address] Surgical Oncologist Surgical Oncology 02/15/23 [place] [address] [address] [facility] [address] [place] [address] Pattern Clerk/Oncologist Hematology and Oncology 02/16/23 documented as of this encounter
--- OUTSIDE RECORDS SUMMARY | 2024-07-02 05:02 | XMS_ITS | Encounter Summary ---
Author Organization [facility] Address [address] [facility] [place] [address] Care Team Providers Care Kiln Furniture Caster Name Role Phone Naya Leonard DO Unavailable [phone] Bernardo Lizarraga MD Unavailable [phone] Celina Sifuentes MD Primary Care Provider [phone] Reason for Referral * Radiology Services (Routine) - Closed Specialty Diagnoses / Procedures Referred By Contac t Referred To Contact Diagnoses Mass of right breast, unspecified quadrant Procedures NM LYMPHOSCINTIGRAPHY Naya Leonard, [address] [address] [facility] [address] [place] [address] Referral ID Status Reason Start Date Expiration Date Visits Re quested Visits Authorized [id number] Closed 02/02/2023 02/02/2024 1 1 Reason for Visit * Auth/Cert (Routine) Specialty Diagnoses / Procedures Referred By Contac t Referred To Contact Procedures MASTECTOMY SIMPLE COMPLETE Referral ID Status Reason Start Date Expiration Date Visits Re quested Visits Authorized [id number] 1 1 Encounter Details Date Type Department Care Team (Latest Contact Info) Description 02/18/2023 7:17 AM CDT - 02/23/2023 11:59 PM CDT Hospital Encounter [facility] Nuclear Medicine [address] [place] [address] [place] [address] [facility] [address] [place] [address] Discharge Disposition: Home or Self [...] 100 tablet 4 02/06/2023 11/15/2023 HYDROcodone-acetaminoph en ([place]) 5-325 MG tabletIndications:Invas albert ductal carcinoma of [...] st Contact Info) Description 07/19/2024 9:45 AM TRANSPLANT RN Office Visit [facility] Medical [facility] - DATA SCIENTIST [address] [address] Leatha Gupta MD [address] [place] [address] 12/11/2024 9:00 AM CDT Office Visit [facility] Medical [facility] - Surgery [address] [facility], [address] [place] [address] [place] [address] [address] [place] [address] 12/11/2024 10:40 AM CDT Office Visit [facility] [address] [facility] [address] [place] [address] [place] [address] [address] [place] [address] documented as of this encounter [...] quadrant documented in this encounter Care Teams Kiln Furniture Caster Relationship Specialty Start Date End Date Celina Sifuentes MD [address] [place] [address] PCP - General Family Medicine 02/16/23 11/14/23 [place] [address] [address] [facility] [address] [place] [address] Surgical Oncologist Surgical Oncology 02/15/23 [place] [address] [address] [facility] [address] [place] [address] Catholic Priest/Oncologist Hematology and Oncology 02/16/23 documented as of this encounter
--- OUTSIDE RECORDS SUMMARY | 2024-07-02 05:02 | XMS_ITS | Encounter Summary ---
Author Organization [facility] Address [address] [facility] [place] [address] Care Team Providers Care Bench Mechanic Name Role Phone Naya Leonard Irving DO Unavailable [phone] Bernardo Lizarraga MD Unavailable [phone] Celina Sifuentes MD Primary Care Provider [phone] Keisha Pineda Primary Care Pr ovider Encounter Details Date Type Department Care Team (Late st Contact Info) Description 03/08/2023 [facility] Outpatient Visit [facility] Cancer Care [address] [place] [address] [place] [id number] [place] [address] Social History Tobacco Use Types Packs/Day [...] st Contact Info) Description 07/19/2024 9:45 AM FABRICATOR INDUSTRIAL FURNACE Office Visit [facility] - SUPERVISOR MODERN LANGUAGES [address] [place] [address] Leatha Gupta MD [address] [facility] [place] [address] 12/11/2024 9:00 AM CDT Office Visit [facility] - Surgery [address] [facility], [address] [place] [address] [place] [address] [address] 12/11/2024 10:40 AM CDT Office Visit [facility] [address] [place] [address] [address] [place] [address] [place] [address] [facility] [address] [place] [address] documented as of this encounter Visit Diagnoses Not on filedocumented in this encounter Care Teams Bench Mechanic Relationship Specialty Start Date End Date Celina Sifuentes MD [address] [facility] [place] [address] PCP - General Family Medicine 02/16/23 11/14/23 Keisha Pineda PA [address] [place] [phone] PCP - General Physician Fur Blower Operator 11/15/23 [place] [address] [address] Surgical Oncologist Surgical Oncology 02/15/23 [place] [address] [place] [phone] Structural Steel Detailer/Oncologist Hematology and Oncology 02/16/23 documented as of this encounter
--- OUTSIDE RECORDS SUMMARY | 2024-07-02 05:02 | XMS_ITS | Encounter Summary ---
Author Organization [facility] Address [address] [facility] [place] [address] Care Team Providers Care Operating Room Assistant Name Role Phone Naya Leonard DO Unavailable [phone] Bernardo Lizarraga MD Unavailable [phone] Celina Sifuentes MD Primary Care Provider [phone] Reason for Visit * Reason Comments Post-Op Bilat Mast Encounter Details Date Type Department Care Team (Late st Contact Info) Description 03/08/2023 9:00 AM CDT Office Visit [facility] - Surgery [address] [place] [address] [place] Leonard [place] [address] [place] [address] Postop check (Primary Dx); Vaginal yeast [...] -- Negative for metastatic carcinoma (0/1) at 0998 A/P: PO Right simple mastectomy, left prophylactic [...] st Contact Info) Description 07/19/2024 9:45 AM PHARMACY STUDENT Office Visit [facility] - CORRECTIVE THERAPY AIDE [address] [place] [address] Leatha Gupta MD [facility] [place] [address] 12/11/2024 9:00 AM CDT Office Visit [facility] - Surgery [address] [place] [address], [address] [place] [address] Naya Leonard DO [address] [place] [address] 12/11/2024 10:40 AM CDT Office Visit [facility] Cancer [facility] [address] [facility] [address] [place] [address] [place] [address] [address] [place] [address] documented as of this encounter Visit Diagnoses Diagnosis Postop check- Primary Follow-up examination, following unspecified surgery Vaginal yeast infection Candidiasis of vulva and vagina Malignant neoplasm of female breast, unspecified estrogen receptor status, unspecified laterality, unspecified site of breast (HCC) documented in this encounter Care Teams Operating Room Assistant Relationship Specialty Start Date End Date Celina Sifuentes MD [address] [place] [address] PCP - General Family Medicine 02/16/23 11/14/23 [place] [address] [address] [place] [address] Surgical Oncologist Surgical Oncology 02/15/23 [place] [address] [address] [place] [address] Electric Operator/Oncologist Hematology and Oncology 02/16/23 documented as of this encounter
--- OUTSIDE RECORDS SUMMARY | 2024-07-02 05:02 | XMS_ITS | Encounter Summary ---
Author Organization [facility] Address [address] [place] [address] Care Team Providers Care Director Of Solutions Architecture Name Role Phone Unavailable Primary Care Provider Unavailabl e Reason for Referral * Radiology Services (Routine) - Closed Specialty Diagnoses / Procedures Referred By Contac t Referred To Contact Diagnoses S/P breast biopsy, right Procedures MAMMO RIGHT POST CLIP OR WIRE Leatha Gupta MD [address] [place] [address] Referral ID Status Reason Start Date Expiration Date Visits Re quested Visits Authorized [id number] Closed 01/06/2023 01/06/2024 1 1 * Radiology Services (Routine) - Closed Specialty Diagnoses / Procedures Referred By Contac t Referred To Contact Diagnoses Abnormal findings on diagnostic imaging of breast Procedures US BREAST RIGHT BIOPSY Leatha Gupta MD [address] [place] [address] Referral ID Status Reason Start Date Expiration Date Visits Re quested Visits Authorized [id number] Closed 01/06/2023 01/06/2024 1 1 * Radiology Services (Routine) - Closed Specialty Diagnoses / Procedures Referred By Contac t Referred To Contact Diagnoses Breast calcifications on mammogram Procedures MAMMO STEREOTACTIC RIGHT BIOPSY Leatha Gupta MD [address] [place] [address] Referral ID Status Reason Start Date Expiration Date Visits Re quested Visits Authorized [id number] Closed 01/06/2023 01/06/2024 1 1 Encounter Details Date Type Department Care Team (Late Contact Info) Description 12/30/2022 Orders Only [facility] Breast Care [address] [facility] [address] [place] [address] Sonja Wiggins, RN Breast calcifications [...] (Late Contact Info) Description 07/19/2024 9:45 AM ABALONE DIVER Office Visit [facility] - ARMY SENIOR OFFICER [address] [place] [address] Leatha Gupta MD [address] [place] [address] 12/11/2024 9:00 AM CDT Office Visit [facility] - Surgery [address] [facility], [address] [place] [address] [place] [address] [facility] [address] [place] [address] 12/11/2024 10:40 AM CDT Office Visit [facility] Cancer Care [address] [place] [address] [place] [address] [address] documented as of this [...]
--- OUTSIDE RECORDS SUMMARY | 2024-07-02 05:02 | XMS_ITS | Encounter Summary ---
Author Organization [facility] Address [address] [place] [address] Care Team Providers Care Control Valve Technician Name Role Phone Naya Leonard DO Unavailable [phone] Bernardo Lizarraga MD Unavailable [phone] Celina Sifuentes MD Primary Care Provider [phone] Reason for Visit * Auth/Cert (Routine) Specialty Diagnoses / Procedures Referred By Contlulu t Referred To Contact Procedures NV EXC NECK FRITZ DEEP = 5 CM EXCISION MASS OR TUMOR CHEST Referral ID Status Reason Start Date Expiration Date Visits Re quested Visits Authorized [id number] 1 1 Encounter Details Date Type Department Care Team (Late st Contact Info) Description 02/25/2023 7:29 AM CDT Anesthesia Event [facility] - Perioperative Surgery [address] [place] [address] Ritchie Craven MD [address] [place] [address] Carmen Muhammad MD [address] [address] [place] [address] Anesthesia Record Procedure Summary Procedure Name Responsible [...] 2; Channel; Bulb; 19; BARD; CHANNEL DRAIN; 576872; [id number]; Lateral, Right; Breast; None; Well; 02/25/23; 0739; DR.GLASER QUNITANA 02/18/23 1058 by Nathaniel Dalton RN 02/25/23 [...] Channel; Bulb; 19; BARD; ROUND 3/4 FLUTED; 163097; [id number]; Lateral, Left; Chest; Topical; Well; 06/08/23; 1010; Not present on admission, removal date unknown 02/25/23 0751 by Joi Pearl RN 06/08/23 1010 by Betina Shah RN Procedural Site (Incision) 02/25/23; 0752; Right, Upper; Chest; 02/25/23; 1520 02/25/23 0752 by Joi Pearl RN 02/25/23 1520 by Generic, Auto Release Drain 02/25/23; 0754; DR.GLASER QUINTANA; 2; Channel; Bulb; 19; BARD; ROUND 3/4 FLUTED; 593873; [id number]; Lateral, Right; Chest; Topical; Well; 06/08/23; 1009; [...] of this encounter Progress Notes * Joey RoseBENJA-EDGER AUTOMATIC - 02/25/2023 8:07 AM CDT ANESTHESIA POSTOP [...] RIGHT BIOPSY 01/06/2023 [facility] US BAND SAW OPERATOR Status: Patient's last menstrual period was 01/23/2023 [...] Anesthesia Transfer of Care - Rose Cook APRN-EDGER AUTOMATIC - 02/25/2023 8:07 AM CDT ANESTHESIA TRANSFER [...] 2; Channel; Bulb; 19; BARD; CHANNEL DRAIN; 297940; [id number];Lateral, Right; Breast; None; Well; 02/25/23; 0739; DR.GLASER QUINTANA 02/18/23 1058 by Nathaniel Dalton RN 02/25/23 0739 by Joi Pearl, [place] Peripheral IV Date: 02/25/23; Time: 0648; Orientation: Right, Posterior; Location: Hand; Placed By:corinne fonseca rn; Gauge: 20 Gauge; Locals: Injectable; Tolerance: Well 02/25/23 0648 by Reggie Fonseca, RN Drain 02/25/23; 0751; DR.GLASER QUINTANA; 1; Channel; Bulb; 19; BARD; ROUND 3/4 FLUTED; 252256; [id number];Lateral, Left; Chest; Topical; Well 02/25/23 0751 by Joi Pearl, RN Drain 02/25/23; 0754; DR.GLASER QUINTANA; 2; Channel; Bulb; 19; BARD; ROUND 3/4 FLUTED; 662570; [id number];Lateral, Right; Chest; Topical; Well 02/25/23 0754 by [...] st Contact Info) Description 07/19/2024 9:45 AM BOX SHOOK PATCHER Office Visit [facility] - BAND SAW OPERATOR [address] [place] [address] Leatha Gupta MD [address] [place] [address] 12/11/2024 9:00 AM CDT Office Visit [facility] - Surgery [address] [facility], [address] [place] [address] [place] [address] [address] [facility] [address] [place] [address] 12/11/2024 10:40 AM CDT Office Visit [facility] [address] [place] [address] [address] [place] [address] [place] [address] [address] [address] documented as of this encounter [...] mg documented in this encounter Care Teams Control Valve Technician Relationship Specialty Start Date End Date Celina Sifuentes MD [address] [place] [address] PCP - General Family Medicine 02/16/23 11/14/23 [place] [address] [address] [place] [address] Surgical Oncologist Surgical Oncology 02/15/23 [place] [address] [place] [address] Adolescent Specialist/Oncologist Hematology and Oncology 02/16/23 documented as of this encounter
--- OUTSIDE RECORDS SUMMARY | 2024-07-02 05:02 | XMS_ITS | Encounter Summary ---
Author Organization [facility] Address [address] [facility] [place] [address] Care Team Providers Care Clean Up Person Name Role Phone Unavailable Primary Care Provider Unavailabl e Reason for Referral * Radiology Services (Routine) - Closed Specialty Diagnoses / Procedures Referred By Contac t Referred To Contact Diagnoses Abnormal findings on diagnostic imaging of breast Procedures US BREAST RIGHT BIOPSY Leatha Gupta MD [address] [place] [address] Referral ID Status Reason Start Date Expiration Date Visits Re quested Visits Authorized [id number] Closed 01/06/2023 01/06/2024 1 1 Reason for Visit * Radiology Services (Routine) - Closed Specialty Diagnoses / Procedures Referred By Contac t Referred To Contact Diagnoses Abnormal findings on diagnostic imaging of breast Procedures US BREAST RIGHT BIOPSY Leatha Gupta MD [address] [place] [address] Referral ID Status Reason Start Date Expiration Date Visits Re quested Visits Authorized [id number] Closed 01/06/2023 01/06/2024 1 1 Encounter Details Date Type Department Care Team (Latest Contact Info) Description 01/06/2023 9:36 AM CDT - 01/06/2023 9:57 AM CDT Hospital Encounter [facility] Imaging Services - Ultrasound [address] [place] [address] Discharge Disposition: Home or Self Care [...] your yearly mammogram. We are required by [place] law to inform you of the following [...] Sonja BARONE, RN Diagnostic Breast Nurse Navigator [address] [address] [email or web address] Office: [phone] documented in this encounter Medications at Time [...] is scheduled for breast MRI 01/27/23 at [facility], which is first available date for [...] st Contact Info) Description 07/19/2024 9:45 AM CLINICAL QUALITY ASSURANCE SPECIALIST Office Visit [facility] - BANK RECONCILIATOR [address] [place] [address] Leatha Gupta MD [address] [place] [address] 12/11/2024 9:00 AM CDT Office Visit [facility] - Surgery [address] [facility], [address] [place] [address] [place] [address] [facility] [address] [place] [address] 12/11/2024 10:40 AM CDT Office Visit [facility] [address] [facility] [address] [place] [address] [place] [address] [place] [address] documented as of this encounter [...] are included within the tissue cores. ??[A [employer]-Play StudiosurMark Mini Cork tissue marker clip was then [...] Case Report Surgical Pathology Report ? Case: [id number] ? Authorizing Provider: ??Leatha Gupta MD ? [...] maximum contiguous extent (minimum tumor size) -- Blessing grade 1 of 3 -- Moderate tubule [...] ER: Positive ( 70 %, moderate intensity) MA: Positive ( 90 %, strong intensity) Her-2-brittany: Not over-expressed (score 1+) Ki-67: Low proliferation/favorab le ( 3 %) Specimen B (right breast calcifications): ER: Positive ( >95 %, strong intensity) MA: Positive ( 50 %, moderate intensity) Fixation: Paraffin embedded tumor tissue was fixed in formalin for 6-72 hours. Tissue cold ischemic time is less one hour. Methodology: The immunostains are performed with [place] UltraView [place] DAB detection kit and rabbit monoclonal antibodies (ER- SP1, PgR-1E2, Her2- 4B5, and Ki67- 30-9). Interpretation: The percent of tumor cells expressing the predictive marker is quantitated morphometrically for ER, MA and Ki67; the stain intensity is also reported for ER and MA. For ER and MA, results greater than or equal to 1% [...] developed and its performance characteristic determined by [facility], Department of Laboratory Medicine. It [...] Gupta MD LAB - PATHOLOGY/CYT OLOGY ORDERABLES [facility] [address] [place] [address] documented in this encounter Visit [...]
--- OUTSIDE RECORDS SUMMARY | 2024-07-02 05:02 | XMS_ITS | Encounter Summary ---
Author Organization [facility] Address [address] [facility] [address] [place] [address] Care Team Providers Care Self Storage Manager Name Role Phone Unavailable Primary Care [...] st Contact Info) Description 07/19/2024 9:45 AM CUTTING MACHINE TENDER HELPER Office Visit [facility] - TRAIN OPERATIONS SUPERVISOR [address] [place] [address] Leatha Gupta MD [address] [place] [address] 12/11/2024 9:00 AM CDT Office Visit [facility] - Surgery [address] [place] [address], [address] [place] [address] Naya Leonard, [place] [address] [place] [address] [address] [place] [address] 12/11/2024 10:40 AM CDT Office Visit [facility] Cancer [facility] [address] [place] [address] [place] [address] [phone] documented as of this encounter Visit Diagnoses Not on filedocumented in this encounter
--- OUTSIDE RECORDS SUMMARY | 2024-07-02 05:02 | XMS_ITS | Encounter Summary ---
Author Organization [facility] Address [address] [facility] [place] [address] Care Team Providers Care Shank Pinner Name Role Phone Unavailable Primary Care Provider Unavailabl e Reason for Referral * Radiology Services (Routine) - Closed Specialty Diagnoses / Procedures Referred By Contac t Referred To Contact Diagnoses Abnormal mammogram of left breast Procedures US BREAST LEFT LTD Leatha Gupta MD [address] [place] [address] Referral ID Status Reason Start Date Expiration Date Visits Re quested Visits Authorized Closed 12/24/2021 12/24/2022 1 1 Reason for Visit * Radiology Services (Routine) - Closed Specialty Diagnoses / Procedures Referred By Contac t Referred To Contact Diagnoses Abnormal mammogram of left breast Procedures US BREAST LEFT LTD Leatha Gupta MD [address] [place] [address] Referral ID Status Reason Start Date Expiration Date Visits Re quested Visits Authorized [id number] Closed 12/24/2021 12/24/2022 1 1 Encounter Details Date Type Department Care Team (Late st Contact Info) Description 03/17/2022 1:25 PM CDT - 03/17/2022 11:59 PM CDT Hospital Encounter [facility] Health Imaging Services - Ultrasound [address] [place] [address] Leatha Gupta MD [address] [place] [address] Discharge Disposition: Home or Self [...] st Contact Info) Description 07/19/2024 9:45 AM PLAN REP Office Visit [facility] - SUPERVISOR LIME [address] [place] [address] Leatha Gupta MD [address] [place] [address] 12/11/2024 9:00 AM CDT Office Visit [facility] - Surgery [address] [facility], [address] [place] [address] [place] [address] [facility] [address] [place] [address] 12/11/2024 10:40 AM CDT Office Visit [facility] Cancer Care [address] [place] [address] [address] [place] [address] [place] [address] [place] [address] documented as of this encounter Procedures Procedure [...] outer quadrant was performed by a trained scruff worker. In the left breast 2:00 position 8 cm from the nipple posterior depth there is a group of simple cysts measuring 2.0 x 1.1 x 2.3 cm in aggregate. ?? Leatha Gupta MD US ORDERABLES documented in this encounter Visit Diagnoses Diagnosis Abnormal mammogram of left breast documented in this encounter
--- OUTSIDE RECORDS SUMMARY | 2024-07-02 05:02 | XMS_ITS | Encounter Summary ---
Author Organization [facility] Address [address] [facility] [place] [address] Care Team Providers Care Manager Sas Name Role Phone Naya Leonard DO Unavailable [phone] Bernardo Lizarraga MD Unavailable [phone] Celina Sifuentes MD Primary Care Provider [phone] Reason for Referral * (Routine) - Closed Specialty Diagnoses / Procedures Referred By Contac t Referred To Contact Procedures [place] [address] [place] [address] [place] [address] [address] [place] [address] Referral ID Status Reason Start Date Expiration Date Visits Re quested Visits Authorized [id number] Closed 02/18/2023 02/18/2024 1 1 * Transfer of Care (Routine) - Closed Specialty Diagnoses / Procedures Referred By Contac t Referred To Contact Procedures Follow up with Primary Care Provider ([place]) [place] [address] [place] [address] Referral ID Status Reason Start Date Expiration Date Visits Re quested Visits Authorized [id number] Closed 02/18/2023 02/18/2024 1 1 Reason for Visit * Auth/Cert (Routine) Specialty Diagnoses / Procedures Referred By Sherie jacobo Referred To Contact Procedures MASTECTOMY SIMPLE COMPLETE Referral ID Status Reason Start Date Expiration Date Visits Re quested Visits Authorized [id number] 1 1 Encounter Details Date Type Department Care Team (Latest Contact Info) Description 02/18/2023 5:51 AM CDT - 02/18/2023 3:00 PM CDT Hospital Encounter [facility] - Perioperative Surgery [address] [place] [address] [place] [address] [facility] [address] [place] [address] Surgery General Discharge Disposition: Home [...] 100 tablet 4 02/06/2023 11/15/2023 HYDROcodone-acetaminoph en ([place]) 5-325 MG tabletIndications:Invas albert ductal carcinoma of breast, female, right (HCC) Take 1 (one) tablet by mouth every 6 hours as needed for Pain 20 tablet 02/18/2023 03/17/2023 Lutera 0.1-20 MG-MCG tablet TK 1 T PO QD 3 packet 4 05/26/2022 02/24/2023 documented as of this encounter Progress Notes * Angella Silver RN - 02/18/2023 7:18 AM CDT Called [facility] and spoke with Sy - pt is [...] o'clock position revealed an infiltrating ductal carcinoma ER/NJ positive, HER2/brittany negative with low KI 67. Thecalcifications revealed DCIS, ER/NJ positive. Patient underwent breast MRI which showed [...] STEREOTACTIC RIGHT BIOPSY 01/06/2023 [facility] ??? NEEDLE BIOPSY Right 2 cyst aspirations ??? OTHER SURGERY breast cyst aspiration ??? BREAST RIGHT BIOPSY Right 01/06/2023 BREAST RIGHT BIOPSY 01/06/2023 [facility] US No Known Allergies [...] BOTH breasts was performed by a trained rn advanced and by Dr. Maddi Landeros. BREAST PARENCHYMAL [...] [facility] . > [...] ER: Positive ( 70 %, moderate intensity) NJ: Positive ( 90 %, strong intensity) Her-2-brittany: Not over-expressed (score 1+) Ki-67: Low proliferation/favorable ( 3 %) ?? Specimen B (right breast calcifications): ER: Positive ( >95 %, strong intensity) NJ: Positive ( 50 %, moderate intensity) Assessment: [...] o'clock position revealed an infiltrating ductal carcinoma ER/NJ positive, HER2/brittany negative with low KI 67. Thecalcifications revealed DCIS, ER/NJ positive. Patient underwent breast MRI which showed [...] BOTH breasts was performed by a trained rn advanced and by Dr. Maddi Landeros. BREAST PARENCHYMAL [...] [facility] . > [...] contiguous extent (minimum tumor size) ?? -- [place] grade 1 of 3 ?? -- Moderate [...] ER: Positive ( 70 %, moderate intensity) NJ: Positive ( 90 %, strong intensity) Her-2-brittany: Not over-expressed (score 1+) Ki-67: Low proliferation/favorable ( 3 %) ?? Specimen B (right breast calcifications): ER: Positive ( >95 %, strong intensity) NJ: Positive ( 50 %, moderate intensity) Assessment: [...] Leonard DO - 02/18/2023 9:14 AM CDT [place] Node Biopsy for Breast Cancer - Right [...] Left Prophylactic Mastectomy Surgeon: Naya Leonard DO Commercial Credit Portfolio Manager: Lynn CALVIN Type of anesthesia: General Complications: None EBL: 300 cc Drains: CHANI subcutaneous Bilateral flank Brief findings: left breast removed, oozing from flaps noted and controled with bovie and surgicel powder, right breast removed without issues, right sentinel lymph node removed Specimens: 1. Right Breast-stitch in axillary tail 2. Right [place] Lymph Node 3. Left Breast-stitch in axillary [...] cavity. When hemostasis was obtained, two 19 bengali CHANI drains were placed in the Left [...] cavity. When hemostasis was obtained, two 19 bengali CHANI drains were placed in the Right [...] st Contact Info) Description 07/19/2024 9:45 AM THEATRE INSTRUCTOR Office Visit [facility] - LOG CHAIN WORKER [address] [place] [address] Leatha Gupta MD [address] [place] [address] 12/11/2024 9:00 AM CDT Office Visit [facility] - Surgery [address] [facility], [address] [place] [address] [place] [address] [facility] [address] [place] [address] 12/11/2024 10:40 AM CDT Office Visit [facility] Cancer Care [address] [facility] [address] [place] [address] [place] [address] [facility] [address] [place] [address] documented as of this encounter Procedures Procedure Name Priority Date/Time Associated Diagnosis Comments PATHOLOGY TISSUE EXAM (STL) Routine 02/18/2023 9:17 AM CDT Diagnosis unknown NJ MAST SMPL COMPL 02/18/2023 8: 36 AM CDT Special Needs NUC MED INJ 8:00 HCG URINE QUALITATIVE STAT 02/18/2023 6:36 AM CDT Preoperative examination documented in this encounter Results * PATHOLOGY TISSUE EXAM (STL) (02/18/2023 9:17 AM CDT) Case Report Surgical Pathology Report ? Case: [id number] ? Authorizing Provider: ??Naya Leonard DO ? Collected: ? 02/18/2023 09:17 AM ? Ordering Location: ? [facility] ?Received: ?02/18/2023 11:12 AM ? Pathologist: ? Sarah Blount MD ? Specimens: ?? A) - Breast, left breast stitch chanda axillary tail ? B) - Breast, right breast stitch chanda axillary tail ? C) - [place] Lymph Node, right breast sentinel lymph node [...] in a separate report. 03/09/2023 5:28 PM [facility] Addendum electronically signed by Sarah Blount MD on 03/01/2023 at 1:12 PM Clinical History Clinical history: Right breast cancer Procedure/operative findings: Right mastectomy and right sentinel lymph node biopsy, left prophylactic mastectomy 03/09/2023 5:28 PM [facility] Frozen Section Pathologist(s ) Kartik Lopez, Ph.D. 03/09/2023 5:28 PM [facility] Gross Description Received in formalin in container A labeled Betina SharpQuottek, left breast stitch axillary tail, is a [...] lesions. There are no gross lymph nodes. Apron Cleaner sections are submitted as follows: A1 - [...] adipose tissue with no additional biopsy sites. Apron Cleaner sections are submitted as follows: B1 - [...] a.m. on 02/18/23. / 03/09/2023 5:28 PM [facility] Microscopic Description A. Sections of the [...] for malignant epithelial cells. 03/09/2023 5:28 PM [facility] Disclaimer All histochemical and/or immunohistochemical [...] be interpreted with caution. 03/09/2023 5:28 PM [facility] Synoptic Report INVASIVE CARCINOMA OF [...] (sentinel and non-sentinel): ?1 ? Number of [place] Nodes Examined: ?1 pTNM CLASSIFICATION (AJCC 8th [...] N Suffix: ?(sn) 03/09/2023 5:28 PM CDT [facility] Embedded Images 03/09/2023 5:28 PM CDT [facility] Pathology/Cytology ENTIRE BREAST / Unknown 02/18/2023 9:17 AM CDT 02/18/2023 11:12 AM CDT Miscellaneous samples (specimen) ENTIRE BREAST / Unknown 02/18/2023 10:51 AM CDT 02/18/2023 11:12 AM CDT Miscellaneous samples (specimen) SPECIMEN FROM SENTINEL LYMPH NODE / Unknown 02/18/2023 10:54 AM CDT 02/18/2023 11:12 AM CDT Naya Leonard DO LAB - PATHOLOGY/CYTO LOGY ORDERABLES Performing Organization Address [facility] de Phone Number [facility] [address] [place] [address] * HCG URINE QUALITATIVE (02/18/2023 6:36 AM CDT) hCG Qualitative Urine Negative Negative 02/18/2023 6:50 AM CDT [facility] Urine URINE / Unknown Collection / Unknown 02/18/2023 6:36 AM CDT 02/18/2023 6:40 AM CDT Kaila Jamison DO LAB - URINALYSIS ORD ERABLES Performing Organization Address [facility] de Phone Number [facility] [address] [place] [address] documented in this encounter Visit Diagnoses Diagnosis [...] 180, DBP greater than 100., PACU HYDROcodone-acetaminophen ([place]) 5-325 MG tablet 1 tablet 1 tablet, [...] 180, DBP greater than 100., PACU HYDROcodone-acetaminophen ([place]) 5-325 MG tablet 1 tablet (COMPLETED) 1 [...] Pre-op documented in this encounter Care Teams Manager Sas Relationship Specialty Start Date End Date Celina Sifuentes MD [address] [place] [phone] PCP - General Family Medicine 02/16/23 11/14/23 [place] [address] [address] Surgical Oncologist Surgical Oncology 02/15/23 [place] [address] [address] [place] [phone] Dynamite Packing Machine Feeder/Oncologist Hematology and Oncology 02/16/23 documented as of this encounter
--- OUTSIDE RECORDS SUMMARY | 2024-07-02 05:02 | XMS_ITS | Encounter Summary ---
Author Organization [facility] Address [address] [place] [address] Care Team Providers Care Clinic Manager Name Role Phone Unavailable Primary Care Provider Unavailabl e Reason for Visit * Radiology Services (Routine) - Closed Specialty Diagnoses / Procedures Referred By Contac t Referred To Contact Ultrasound Diagnoses Pelvic pain Procedures US PELVIS W TRANSVAG NON OB US PELVIS W TRANSVAG W DOP NON OB Leatha Gupta MD [address] [place] [address] [facility] [address] [place] [address] Referral ID Status Reason Start Date Expiration Date Visits Re quested Visits Authorized [id number] Closed 10/07/2021 10/07/2022 1 1 Encounter Details Date Type Department Care Team (Late st Contact Info) Description 10/13/2021 1:00 PM CDT - 10/13/2021 11:59 PM CDT Hospital Encounter [facility] Health Imaging Services - Ultrasound [address] [place] [address] Leatha Gupta MD [address] [place] [address] Discharge Disposition: Home or Self [...] st Contact Info) Description 07/19/2024 9:45 AM SPORTS BOOK WRITER Office Visit [facility] - GROUP BURNER MACHINE [address] [place] [address] Leatha Gupta MD [address] [place] [address] 12/11/2024 9:00 AM CDT Office Visit [facility] - Surgery [address] [place] [address], [address] [address] [place] [address] [address] 12/11/2024 10:40 AM CDT Office Visit [facility] Cancer Care [address] [place] [address] Bernardo Lizarraga MD [address] [place], [place] [address] [address] documented as of this encounter [...] CDT EXAM: US PELVIS W TRANSVAG NON OB*[id number] INDICATION: Pelvic and perineal pain COMPARISON: none [...] 10/13/2021 EXAM: US PELVIS W TRANSVAG NON OB*[id number] INDICATION: Pelvic and perineal pain COMPARISON: none [...]
--- OUTSIDE RECORDS SUMMARY | 2024-07-02 05:02 | XMS_ITS | Encounter Summary ---
Author Organization [facility] Address [address] [facility] [place] [address] Care Team Providers Care Robotype Operator Name Role Phone Naya Leonard DO Unavailable [phone] Bernardo Lizarraga MD Unavailable [phone] Celina Sifuentes MD Primary Care Provider [phone] Reason for Referral * Consultation (Routine) - Closed Specialty Diagnoses / Procedures Referred By Sherie jacobo Referred To Contact Diagnoses Mass of right breast, [place] [address] [address] [place] [address] Claribel Lima [address] [place] [address] Referral ID Status Reason Start Date Expiration Date V isits Requested Visits Authorized [id number] Closed Specialty Services Required 02/02/2023 02/02/2024 1 1 Reason for Visit * Consultation (Routine) - Closed Specialty Diagnoses / Procedures Referred By Sherie jacobo Referred To Contact Diagnoses Mass of right breast, [place] [address] [address] [place] [address] Claribel Lima [address] [place] [address] Referral ID Status Reason Start Date Expiration Date V isits Requested Visits Authorized [id number] Closed Specialty Services Required 02/02/2023 02/02/2024 1 1 Encounter Details Date Type Department Care Team (Latest Contact Info) Description 02/26/2023 8:58 AM CDT - 02/26/2023 11:59 PM CDT Hospital Encounter [facility] [address] [facility] [address] [place] [address] Discharge Disposition: Home or Self Care Social [...] daily 14 capsule 02/25/2023 03/17/2023 HYDROcodone-acetaminoph en ([place]) 5-325 MG tabletIndications:Invas albert ductal carcinoma of [...] Paternal ancestry: Jordi There is no known Rastafari ancestry. 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 Her son lives in [place], [place], 27 year old daughter lives in [place], and 23year old daughter lives in [place]. Assessment/Genetic Counseling Germline genetic testing is indicated [...] YUSEF does not cover life, disability, or jail care insurance. W tianna the incidence of genetic discrimination involving health insurance appears to be small, the risk of genetic discrimination in life and disability insurance is likely to be more substantial. Therefore, individuals may wish to address any life,disability, or intermediate teacher care insurance issues priorto undergoing genetic testing. Plan: She elected multi-gene panel testing, [facility] Multi[facility]Cancer +RNA [facility]. She will be emailed information about hereditary cancer testing and a test req to take to the lab, [facility], that contracts with [facility]. We discussed that once they receive the sample, [facility] will verify insurance coverage and will notify her if her estimated ytn-im-ajavti cost is > $100. Turn around time [...] st Contact Info) Description 07/19/2024 9:45 AM FIELD PRODUCER Office Visit [facility] - SUPERVISOR COSTUMING [address] [place] [address] Leatha Gupta MD [address] [place] [address] 12/11/2024 9:00 AM CDT Office Visit [facility] - Surgery [address] [facility], [address] [place] [address] [place] [address] [address] [facility] [address] [place] [address] 12/11/2024 10:40 AM CDT Office Visit [facility] Cancer Care [address] [place] [address] [address] [place] [address] [place] [address] [address] [place] [address] Scheduled Referrals Name Type Priority Associated Diagnoses Orde r Schedule AMB REFERRAL TO GENETICS Outpatient Referral Routine Mass of right breast, unspecified quadrant 1 Occurrences starting 02/26/2023 until 02/26/2023 documented as of this encounter Visit Diagnoses Diagnosis Mass of right breast, unspecified quadrant documented in this encounter Care Teams Robotype Operator Relationship Specialty Start Date End Date Celina Sifuentes MD [address] [place] [address] PCP - General Family Medicine 02/16/23 11/14/23 [place] [address] [address] [facility] [address] [place] [address] Surgical Oncologist Surgical Oncology 02/15/23 [place] [address] [address] [place] [address] Lever Miller/Oncologist Hematology and Oncology 02/16/23 documented as of this encounter
--- OUTSIDE RECORDS SUMMARY | 2024-07-02 05:03 | XMS_ITS | Encounter Summary ---
Author Organization [facility] Address [address] [facility] [place] [address] Care Team Providers Care Dial Marker Name Role Phone Priya Mora MD Primary Care Provider Encounter Details Date Type Department Care Team (Late Contact Info) Description 01/05/2017 Orders Only [facility] [address] [place] [address] Teresita De Paz Breast asymmetry Social History [...] (Late Contact Info) Description 07/19/2024 9:45 AM NAVAL ARCHITECT SPECIALIST Office Visit [facility] - FIT MODEL [address] [place] [address] Leatha Gupta MD [address] [place] [address] 12/11/2024 9:00 AM CDT Office Visit [facility] - Surgery [address] [place] [address], [address] [place] [address] [place] [address] [place] [address] [address] [place] [address] 12/11/2024 10:40 AM CDT [facility] [address] [facility] [address] [place] [address] [place] [address] [facility] [address] [place] [address] documented as of this encounter Procedures Procedure [...] breast documented in this encounter Care Teams Dial Marker Relationship Specialty [place] [address] [address] [facility] [address] [place] [phone] PCP - General Family Medicine 09/07/13 05/13/20 documented as of this encounter
--- OUTSIDE RECORDS SUMMARY | 2024-07-02 05:03 | XMS_ITS | Encounter Summary ---
Author Organization [facility] Address [address] [place] [place] [address] Care Team Providers Care Fly Winder Name Role Phone Unavailable Primary Care Provider Unavailabl e Reason for Visit * Reason Comments Soil Specialist Routine Exam here for WWE Encounter Details Date Type Department Care Team (Late st Contact Info) Description 05/14/2020 11:00 AM UNION ORGANIZER Office Visit [facility] Medical [facility] - MERCHANT MARINER [address] [place] [address] Leatha Gupta MD [address] [place] [address] Well woman exam (Primary Dx); [...] Comments Blood Pressure 92/66 05/14/2020 11:06 AM UNION ORGANIZER Pulse 66 05/14/2020 11:06 AM UNION ORGANIZER Temperature 36.5 ??C (97.7 ??F) 05/14/2020 1 1:06 AM UNION ORGANIZER Respiratory Rate - - Oxygen Saturation 100% 05/14/2020 11: 06 AM UNION ORGANIZER Inhaled Oxygen Concentration - - Weight 79.3 kg (174 lb 12.8 oz) 020 11:06 AM UNION ORGANIZER Height - - Body Mass Index 30 01/03/2019 9:46 AM CDT documented in this encounter Progress Notes * Leatha Gupta MD - 05/14/2020 11:25 AM CST Well Woman Yearly Exam HISTORY: Betina Coy is a 49 year old female, Patient's last menstrual period was 04/17/2020 (exact date)., here for a Well Woman exam. Has her dae scheduled. Up to date on paps. 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 Has been getting bio identical hormones [...] file Gets together: Not on file Attends zoroastrian service: Not on file Active member of [...] any lesions or abnormalities. Normal Bartholin's and Chehalis's. Vagina: Moist, pink rugae without any lesions. [...] orders, medications, patient instructions. Leatha Gupta MD N ORGANIZER documented in this encounter Plan of Treatment Upcoming Encounters Date Type Department Care Team (Late st Contact Info) Description 07/19/2024 9:45 AM UNION ORGANIZER Office Visit [facility] - MERCHANT MARINER [address] [place] [address] Leatha Gupta MD [address] [place] [address] 12/11/2024 9:00 AM CDT Office Visit [facility] - Surgery [address] [facility], [address] [place] [address] [place] [address] [facility] [address] [place] [address] 12/11/2024 10:40 AM CDT Office Visit [facility] Cancer Care [address] [facility] [address] [place] [address] [place] [address] [place] [address] documented as of this encounter Visit Diagnoses Diagnosis Well woman exam- Primary Routine general medical examination at a health care facility Uses oral contraception documented in this encounter
--- OUTSIDE RECORDS SUMMARY | 2024-07-02 05:03 | XMS_ITS | Encounter Summary ---
Author Organization [facility] Address [address] [place] [address] Care Team Providers Care Foot Gatherer Name Role Phone Priya Mora MD Primary Care Provider Reason for Visit * Reason Comments Well Women Exam pt here for well wom en exam and has a ingroin hair and popped this morning Encounter Details Date Type Department Care Team (Late st Contact Info) Description 12/29/2017 9:30 AM CDT Office Visit [facility] Medical Group - DAIRY FARM OPERATOR [address] [place] [address] Leatha Gupta MD [address] [place] [address] Well woman exam (Primary Dx); [...] st Contact Info) Description 07/19/2024 9:45 AM ASSORTER LAUNDRY Office Visit [facility] - DAIRY FARM OPERATOR [address] [place] [address] Leatha Gupta MD [address] [place] [address] 12/11/2024 9:00 AM CDT Office Visit [facility] - Surgery [address] [facility], [address] [place] [address] [place] [address] [facility] [address] [place] [address] 12/11/2024 10:40 AM CDT Office Visit [facility] [address] [place] [address] [address] [place] [address] Bernardo Lizarraga [place] [address] [place] [address] [address] [place] [address] documented as of this encounter [...] Vial Resulting Agency Comment [facility] [place] [address] [facility] [id number] Leatha Gupta MD LAB - PATHOLOGY/CYT OLOGY ORDERABLES [facility] ACCOUNT BILL [address] [place] [address] documented in this encounter Visit Diagnoses Diagnosis Well woman exam- Primary Routine general medical examination at a health care facility Uses oral contraception PCOS (polycystic ovarian syndrome) Polycystic ovaries documented in this encounter Care Teams Foot Gatherer Relationship Specialty [place] [address] [address] [facility] [address] [place] [address] PCP - General Family Medicine 09/07/13 05/13/20 documented as of this encounter
--- OUTSIDE RECORDS SUMMARY | 2024-07-02 05:03 | XMS_ITS | Encounter Summary ---
Author Organization [facility] Address [address] [place] [address] Care Team Providers Care Crystallographer Name Role Phone Unavailable Primary Care Provider Unavailabl e Reason for Visit * Reason Comments Refill Request Encounter Details Date Type Department Care Team (Late st Contact Info) Description 04/08/2021 Refill [facility] Medical Group - PALLET STONE INSERTER [address] [place] [address] Leatha Gupta MD [address] [place] [address] Refill Request Social History Tobacco [...] st Contact Info) Description 07/19/2024 9:45 AM TOMBSTONE POLISHER Office Visit [facility] - PALLET STONE INSERTER [address] [place] [address] Leatha Gupta MD [address] [place] [address] 12/11/2024 9:00 AM CDT Office Visit [facility] - Surgery [address] [facility], [address] [place] [address] [place] [address] [facility] [address] [place] [address] 12/11/2024 10:40 AM CDT Office Visit [facility] Cancer Care [address] [place] [address] Natanael. [address] [place] [address] [place] [address] [facility] 100 [place] [address] documented as of this encounter Visit Diagnoses Not on filedocumented in this encounter
--- OUTSIDE RECORDS SUMMARY | 2024-07-02 05:03 | XMS_ITS | Encounter Summary ---
Author Organization [facility] Address [address] [facility] [place] [address] Care Team Providers Care Middle School Pe Teacher Name Role Phone Priya Mora MD Primary Care Provider Reason for Visit * Reason Comments Breast Mass pt here for knot in rt breast for 2 months that is getting bigger from a pea size and is tender Encounter Details Date Type Department Care Team (Late st Contact Info) Description 04/19/2018 3:30 PM CDT Office Visit [facility] Medical Group - DIRECTOR OF GROUP COUNSELING PROGRAM [address] [place] [address] Leatha Gupta MD [address] [place] [address] Lump of breast, right (Primary [...] st Contact Info) Description 07/19/2024 9:45 AM COMBINATION WELDER Office Visit [facility] - DIRECTOR OF GROUP COUNSELING PROGRAM [address] [place] [address] Leatha Gupta MD [address] [place] [address] 12/11/2024 9:00 AM CDT Office Visit [facility] - Surgery [address] [facility], [address] [place] [address] [place] [address] [facility] [address] [place] [address] 12/11/2024 10:40 AM CDT Office Visit [facility] Cancer Care [address] [place] [address] [place] [phone] [place] [address] [place] [address] documented as of this encounter Visit Diagnoses Diagnosis Lump of breast, right- Primary Lump or mass in breast documented in this encounter Care Teams Middle School Pe Teacher Relationship Specialty [place] [address] [address] [facility] [address] [place] [phone] PCP - General Family Medicine 09/07/13 05/13/20 documented as of this encounter
--- OUTSIDE RECORDS SUMMARY | 2024-07-02 05:03 | XMS_ITS | Encounter Summary ---
Author Organization [facility] Address [address] [facility] [place] [address] Care Team Providers Care Sales Operations Lead Name Role Phone Priya Mora MD Primary Care Provider Reason for Visit * Reason Onset Date Comments Results 12/14/2016 Encounter Details Date Type Department Care Team (Late st Contact Info) Description 12/14/[address] [facility] - SYNTHETIC FILAMENT EXTRUDER [address] [place] [address] Leatha Gupta MD [address] [place] [address] Results Social History Tobacco Use [...] spot compression views and right breast USto [phone]. Patient notified orders were sent and she should call for appt. * Telephone Encounter - Belem Salamanca APRN-CNP - 12/14/2016 1:55 PM CDT Returned call - patient needs order for spot compression view and right breast ultrasound. Had mammogram had [facility] - no report yet. Called radiology at [facility] - will fax order to us. * Telephone Encounter - hSeba Cardenas - 12/14/2016 10:27 AM CDT Patient had mamm last week and got a letter that she needs addtional mamm and ultra sound she had it done at [facility] and will need order documented in this encounter Plan of Treatment Upcoming Encounters Date Type Department Care Team (Late st Contact Info) Description 07/19/2024 9:45 AM HOTEL MAINTENANCE WORKER Office Visit [facility] - SYNTHETIC FILAMENT EXTRUDER [address] [place] [address] Leatha Gupta MD [address] [place] [address] 12/11/2024 9:00 AM CDT Office Visit [facility] - Surgery [address] [place] [address], [address] [address] [place] [address] [address] 12/11/2024 10:40 AM CDT Office Visit [facility] Cancer Care [address] [place] [address] Bernardo Lizarraga MD [address] [place], [place] [address]S[place] SANTOS [address] [address] documented as of this encounter Visit Diagnoses Not on filedocumented in this encounter Care Teams Sales Operations Lead Relationship Specialty [place] [address] [address] PCP - General Family Medicine 09/07/13 05/13/20 documented as of this encounter
--- OUTSIDE RECORDS SUMMARY | 2024-07-02 05:03 | XMS_ITS | Encounter Summary ---
Author Organization [facility] Address [address] [address] Care Team Providers Care Auto Salvage Worker Name Role Phone Priya oMra MD Primary Care Provider Encounter Details Date Type Department Care Team (Late Contact Info) Description 05/23/2018 Orders Only [facility] [address] [place] [address] Hui Mcghee LPN Unspecified lump in the [...] (Late Contact Info) Description 07/19/2024 9:45 AM CIGARETTE MAKING MACHINE CATCHER Office Visit [facility] - TRANSITION ADVISOR [address] [place] [address] Leatha Gupta MD [address] [place] [address] 12/11/2024 9:00 AM CDT Office Visit [facility] - Surgery [address] [place] [address], [address] [address] [place] [address] [facility] [address] [place] [address] 12/11/2024 10:40 AM CDT Office Visit [facility] [address] [facility] Natanael. [address] [place] [address] [place] [address] [facility] 100 [place] [address] documented as of this encounter Visit Diagnoses Diagnosis Unspecified lump in the right breast, unspecified quadrant documented in this encounter Care Teams Auto Salvage Worker Relationship Specialty [place] [address] [address] [facility] 101 [place] [phone] PCP - General Family Medicine 09/07/13 05/13/20 documented as of this encounter
--- OUTSIDE RECORDS SUMMARY | 2024-07-02 05:03 | XMS_ITS | Encounter Summary ---
Author Organization [facility] Address [address] [facility] [place] [address] Care Team Providers Care Tank Insulator Rubber Name Role Phone Priya Mora MD Primary Care Provider Reason for Visit * Reason Comments Refill Request Encounter Details Date Type Department Care Team ([facility] Contact Info) Description 02/16/2020 Refill [facility] - MANAGER CHEMICAL [address] [place] [address] Leatha Gupta MD [address] [place] [address] Refill Request Social History Tobacco [...] Upcoming Encounters Date Type Department Care Team ([facility] Contact Info) Description 07/19/2024 9:45 AM FLOOR INSTALLATION MECHANIC Office Visit [facility] - MANAGER CHEMICAL [address] [place] [address] Leatha Gupta MD [address] [place] [address] 12/11/2024 9:00 AM CDT Office Visit [facility] - Surgery [address] [facility] [place] [address] [place] [address] [place] [address] [facility] [address] [place] [address] 12/11/2024 10:40 AM CDT Office Visit [facility] Cancer Care [address] [facility] [place] Natanael. [address] [place] [address] [place] [address] [facility] 100 [place] [address] documented as of this encounter Visit Diagnoses Not on filedocumented in this encounter Care Teams Tank Insulator Rubber Relationship Specialty [place] [address] [address] [facility] 101 [place] [phone] PCP - General Family Medicine 09/07/13 05/13/20 documented as of this encounter
--- OUTSIDE RECORDS SUMMARY | 2024-07-02 05:03 | XMS_ITS | Encounter Summary ---
Author Organization [facility] Address [address] [facility] [place] [address] Care Team Providers Care Hospital Attendant Name Role Phone Priya Mora MD Primary Care Provider Reason for Visit * Reason Comments Refill Request Encounter Details Date Type Department Care Team (Late Contact Info) Description 12/09/2017 Refill [facility] - SEAMLESS TUBE MILL OPERATOR [address] [place] [address] Leatha Gupta MD [address] [place] [address] Refill Request Social History Tobacco [...] (Late Contact Info) Description 07/19/2024 9:45 AM HISTORY DEPARTMENT CHAIR Office Visit [facility] - SEAMLESS [place] [address] Leatha Gupta MD [address] [facility] [place] [address] 12/11/2024 9:00 AM CDT Office Visit [facility] Medical Group - Surgery [address] [facility], [address] [place] [address] [place] [address] [facility] 305 [place] [address] 12/11/2024 10:40 AM CDT Office Visit [facility] Cancer Care [address] [facility] Natanael. [address] [place] [address] [place] [address] [facility] 100 [place] [address] documented as of this encounter Visit Diagnoses Not on filedocumented in this encounter Care Teams Hospital Attendant Relationship Specialty [place] [address] [address] [facility] 101 [place] [phone] PCP - General Family Medicine 09/07/13 05/13/20 documented as of this encounter
--- OUTSIDE RECORDS SUMMARY | 2024-07-02 05:03 | XMS_ITS | Encounter Summary ---
Author Organization [facility] Address [address] [facility] [place] [address] Care Team Providers Care Roof Fitter Name Role Phone Priya Mora MD Primary Care Provider Reason for Referral * Radiology Services (Routine) - Closed Specialty Diagnoses / Procedures Referred By Contlulu t Referred To Contact Diagnoses Unspecified lump in the right breast, unspecified quadrant Procedures MAMMO DIAG DIRECT DIGITAL IMAGE UNIL RIGHT Leatha Gupta MD [address] [place] [address] [place] [address] Referral ID Status Reason Start Date Expiration Date Visits Re quested Visits Authorized [id number] Closed 04/19/2018 10/16/2018 1 1 Encounter Details Date Type Department Care Team (Late st Contact Info) Description 04/19/2018 Orders Only [facility] Group - FUR STYLIST [address] [place] [address] Leatha Gupta MD [address] [place] [address] Unspecified lump in the right [...] Contact Info) Description 07/19/2024 9:45 AM MANAGER ARCHITECTURE Office Visit [facility] - FUR STYLIST [address] [place] [address] Leatha Gupta MD [address] [place] [address] 12/11/2024 9:00 AM CDT Office Visit [facility] - Surgery [address] [facility], [address] [place] [address] [place] [address] [address] [facility] [address] [place] [address] 12/11/2024 10:40 AM CDT Office Visit [facility] Cancer Care [address] [place] [address] Natanael. [address] [place] [address] [place] [address] [facility] [address] [place] [address] Scheduled Orders Name Type Priority Associated Diagnoses Orde r Schedule MAMMO DIAG DIRECT DIGITAL IMAGE UNIL RIGHT Imaging Routine Unspecified lump in the right breast, unspecified quadrant 1 Occurrences starting 04/19/2018 until 04/19/2019 documented as of this encounter Visit Diagnoses Diagnosis Unspecified lump in the right breast, unspecified quadrant- Primary documented in this encounter Care Teams Roof Fitter Relationship Specialty [place] [address] [place] [address] PCP - General Family Medicine 09/07/13 05/13/20 documented as of this encounter
--- OUTSIDE RECORDS SUMMARY | 2024-07-02 05:03 | XMS_ITS | Encounter Summary ---
Author Organization [facility] Address [address] [facility] [place] [address] Care Team Providers Care Criminal Defense Attorney Name Role Phone Priya Mora MD Primary Care Provider Reason for Visit * Reason Onset Date Comments Order 04/19/2018 Encounter Details Date Type Department Care Team (Late st Contact Info) Description 04/19/2018 Telephone [facility] Medical [facility] - REEL AND REWINDER OPERATOR [address] [place] [address] Leatha Gupta MD [address] [place] [address] Order Social History Tobacco Use [...] 5:15 PM CDT I faxed orders to [facility] Central Scheduling for Betina's mammogram and reprinted order for her right breast u/s. (to [phone]) The fax did not go through so I called [facility] to get the correct number for the fax at [facility] Scheduling as the number they gave me yesterday was incorrect). I faxed the orders to [phone] and received confirmation that 2 pages went through. * Telephone Encounter - [place] h[place] - 04/19/2018 3:47 PM CDT Patient called E to set up the US and was told that she has to have a Mamm within 30 days so she will need order for the mamm sent to [facility] documented in this encounter Plan of Treatment Upcoming Encounters Date Type Department Care Team (Late st Contact Info) Description 07/19/2024 9:45 AM EDITOR CONTINUITY AND SCRIPT Office Visit [facility] - REEL AND REWINDER OPERATOR [address] [place] [address] Leatha Gupta MD [facility] [place] [address] 12/11/2024 9:00 AM CDT Office Visit [facility] - Surgery [address] [facility], [address] [place] [address] [place] [address] [place] [address] 12/11/2024 10:40 AM CDT Office Visit [facility] Cancer Care [address] [place] [address] Bernardo Lizarraga MD [address] [place] [address] documented as of this encounter Visit Diagnoses Not on filedocumented in this encounter Care Teams Criminal Defense Attorney Relationship Specialty [place] [address] [address] PCP - General Family Medicine 09/07/13 05/13/20 documented as of this encounter
--- OUTSIDE RECORDS SUMMARY | 2024-07-02 05:03 | XMS_ITS | Encounter Summary ---
Author Organization [facility] Address [address] [facility] [place] [address] Care Team Providers Care Lace Burn Out Tender Name Role Phone Priya Mora MD Primary Care Provider Reason for Referral * Radiology Services (Routine) - Closed Specialty Diagnoses / Procedures Referred By Sherie jacobo Referred To Contact Mammography Diagnoses Cyst of right breast Procedures [place] [address] [address] [place] [address] Referral ID Status Reason Start Date Expiration Date Visits Re quested Visits Authorized [id number] Closed 05/10/2018 11/06/2018 1 1 Reason for Visit * Reason Comments Evaluation Rt Breast lump Encounter Details Date Type Department Care Team (Late st Contact Info) Description 05/10/2018 1:30 PM CDT Office Visit [facility] Medical [facility] - Surgery [address] [place] [address], [address] [place] [address] [place] [address] [address] [place] [address] Cyst of right breast (Primary [...] st Contact Info) Description 07/19/2024 9:45 AM PILING SETTER Office Visit [facility] - VENEER SHEET REPAIRER [facility] [place] [address] Leatha Gupta MD [facility] [place] [address] 12/11/2024 9:00 AM CDT Office Visit [facility] - Surgery [address] [place] [address], [address] [place] [address] Naya Leonard DO [facility] SAM SANTOS [address] [address] 12/11/2024 10:40 AM CDT Office Visit [facility] Cancer Care [address] [place] [address] Bernardo Lizarraga MD [address] [place], [place] [address]SER[place] SANTOS [address] [address] Scheduled Orders Name Type Priority Associated Diagnoses Orde r Schedule US BREAST RIGHT LTD Imaging Routine Cyst of right breast 1 Occurrences starting 05/10/2018 until 05/10/2018 documented as of this encounter Visit Diagnoses Diagnosis Cyst of right breast- Primary documented in this encounter Care Teams Lace Burn Out Tender Relationship Specialty [place] [address] [address] PCP - General Family Medicine 09/07/13 05/13/20 documented as of this encounter
--- OUTSIDE RECORDS SUMMARY | 2024-07-02 05:03 | XMS_ITS | Encounter Summary ---
Author Organization [facility] Address [address] [facility] [place] [address] Care Team Providers Care Order Dispatcher Chief Name Role Phone Priya Mora MD Primary Care Provider Reason for Visit * Reason Comments Refill Request Computer error Encounter Details Date Type Department Care Team (Late st Contact Info) Description 03/03/2018 Refill [facility] Group - END STAPLER [address] [place] [address] Leatha Gupta MD [address] [place] [address] Refill Request (Computer error) Social [...] AM CDT I spoke with Frida at [facility] to see why they were requesting an [...] st Contact Info) Description 07/19/2024 9:45 AM PATENT ATTORNEY Office Visit [facility] - END STAPLER [address] [place] [address] Leatha Gupta MD [address] [place] [address] 12/11/2024 9:00 AM CDT Office Visit [facility] - Surgery [address] [address] [place] [address] [address] 12/11/2024 10:40 AM CDT Office Visit [facility] Cancer Care [address] [place] [address] [place] [address] [address] documented as of this encounter Visit Diagnoses Not on filedocumented in this encounter Care Teams Order Dispatcher Chief Relationship Specialty [place] [address] [address] [facility] [address] [place] [phone] PCP - General Family Medicine 09/07/13 05/13/20 documented as of this encounter
--- OUTSIDE RECORDS SUMMARY | 2024-07-02 05:03 | XMS_ITS | Encounter Summary ---
Author Organization [facility] Address [address] [facility] [place] [address] Care Team Providers Care Tax Compliance Officer Name Role Phone Priya Mora MD Primary Care Provider Encounter Details Date Type Department Care Team (Latest Contact Info) Description 09/07/2013 11:55 AM LINOLEUM LAYER HELPER - 09/07/2013 2:34 PM LINOLEUM LAYER HELPER Hospital Encounter [facility] - Laboratory [address] [place] [address] Angeline Olmos MD [address] [address] Discharge Disposition: Home or Self Care Social [...] Document, Scanned - 09/10/2013 12:06 AM CST LEUM LAYER HELPER * Miscellaneous Scans - Document, Scanned - 09/10/2013 12:05 AM CST LEUM LAYER HELPER documented in this encounter Plan of Treatment Upcoming Encounters Date Type Department Care Team (Late st Contact Info) Description 07/19/2024 9:45 AM LINOLEUM LAYER HELPER Office Visit [facility] - MEDICAL I D SALES [address] [place] [address] Leatha Gupta MD [address] [place] [address] 12/11/2024 9:00 AM CDT Office Visit [facility] - Surgery [address] [facility], [address] [place] [address] [place] [address] [facility] [address] [place] [address] 12/11/2024 10:40 AM CDT Office Visit [facility] Cancer Care [address] [place] [address] [address] [place] [address] Bernardo Lizarr[place] [facility] [address] [place] [address] documented as of this encounter Procedures Procedure Name Priority Date/Time Associated Diagnosis Comments COMPREHENSIVE METABOLIC PANEL Routine 09/07/2013 12:23 PM LINOLEUM LAYER HELPER Abdominal pain, unspecified site LIPASE BLOOD Routine 09/07/2013 12:23 PM LINOLEUM LAYER HELPER Abdominal pain, unspecified site AMYLASE BLOOD Routine 09/07/2013 12:23 PM LINOLEUM LAYER HELPER Abdominal pain, unspecified site CBC W AUTO DIFFERENTIAL Routine 09/07/2013 12:15 PM LINOLEUM LAYER HELPER Abdominal pain, unspecified site documented in this encounter Results * LIPASE BLOOD (09/07/2013 12:23 PM LINOLEUM LAYER HELPER) Lipase 147 73 - 393 U/L 09/07/2013 12:47 PM LINOLEUM LAYER HELPER [facility] Blood BLOOD SPECIMEN / Unknown Lab Venipuncture / Unknown 09/07/2013 12:23 PM LINOLEUM LAYER HELPER 09/07/2013 12:24 PM LINOLEUM LAYER HELPER Angeline Olmos MD LAB - CHEMISTRY CHANEL FELIX Performing Organization Address City/[facility] Co de Phone Number [facility] [address] [place] [address] * AMYLASE BLOOD (09/07/2013 12:23 PM LINOLEUM LAYER HELPER) Amylase 49 15 - 115 U/L 09/07/2013 12:47 PM [facility] Blood BLOOD SPECIMEN / Unknown Lab Venipuncture / Unknown 09/07/2013 12:23 PM LINOLEUM LAYER HELPER 09/07/2013 12:24 PM LINOLEUM LAYER HELPER Angeline Olmos MD LAB - CHEMISTRY CHANEL FELIX Performing Organization Address [facility] de Phone Number [facility] [address] [place] [address] * (ABNORMAL) COMPREHENSIVE METABOLIC PANEL (09/07/2013 12:23 PM LINOLEUM LAYER HELPER) Glucose 87 74 - 106 mg/dL 09/07/2013 12:47 PM [facility] Sodium 140 136 - 145 mmol/L 09/07/2013 12:47 PM [facility] Potassium 4.0 3.5 - 5.1 mmol/L 09/07/2013 12:47 PM [facility] Chloride 105 98 - 107 mmol/L 09/07/2013 12:47 PM [facility] CO2 27 22 - 31 mmol/L 09/07/2013 12:47 PM [facility] Calcium 8.7 8.5 - 10.1 mg/dL 09/07/2013 12:47 PM [facility] Anion Gap 8 5 - 15 mmol/L 09/07/2013 12:47 PM [facility] BUN 8 7 - 21 mg/dL 09/07/2013 12:47 PM [facility] Creatinine 0.48(L) 0.50 - 1.30 mg/dL 09/07/2013 12:47 PM [facility] eGFR by MDRD >60 >60 mL/min/1.7 3m2 09/07/2013 12:47 PM [facility] eGFR by MDRD >60 >60 mL/min/1.7 3m2 09/07/2013 12:47 PM [facility] Alkaline Phosphatase 47 38 - 126 U/L 09/07/2013 12:47 PM [facility] ALT 39 12 - 78 U/L 09/07/2013 12:47 PM [facility] AST 26 5 - 40 U/L 09/07/2013 12:47 PM [facility] Protein Total 7.3 6.4 - 8.2 gm/dL 09/07/2013 12:47 PM [facility] Albumin 3.5 3.4 - 5.0 gm/dL 09/07/2013 12:47 PM [facility] Bilirubin Total 0.4 0.2 - 1.0 mg/dL 09/07/2013 12:47 PM [facility] Blood BLOOD SPECIMEN / Unknown Lab Venipuncture / Unknown 09/07/2013 12:23 PM LINOLEUM LAYER HELPER 09/07/2013 12:24 PM [facility] Angeline Olmos MD LAB - CHEMISTRY [facility] Organization Address City/State/[facility] Co de Phone Number [facility] [address] [place] [address] * (ABNORMAL) CBC W AUTO DIFFERENTIAL (09/07/2013 12:15 PM LINOLEUM LAYER HELPER) WBC 7.8 4.4 - 10.7 x10^9/L 09/07/2013 12:30 PM [facility] RBC 4.51 3.80 - 5.20 x10^12/L 09/07/2013 12:30 PM [facility] Hemoglobin 13.5 12.0 - 15.6 gm/dL 09/07/2013 12:30 PM [facility] Hematocrit 39.8 35.9 - 45.5 % 09/07/2013 12:30 PM [facility] MCV 88.2 80.7 - 98.3 fl 09/07/2013 12:30 PM [facility] MCH 29.9 26.7 - 34.0 pg 09/07/2013 12:30 PM [facility] MCHC 33.9 30.8 - 35.9 gm/dL 09/07/2013 12:30 PM [facility] Platelet Count 302 153 - 416 x10^9/L 09/07/2013 12:30 PM [facility] RDW-CV 12.9 12.1 - 14.9 % 09/07/2013 12:30 PM [facility] MPV 9.0(L) 9.4 - 12.9 fl 09/07/2013 12:30 PM [facility] Neutrophils % 71.9 44.0 - 73.0 % 09/07/2013 12:30 PM [facility] Lymphocytes % 17.4(L) 20.0 - 43.0 % 09/07/2013 12:30 PM [facility] Monocytes % 7.9 5.0 - 13.0 % 09/07/2013 12:30 PM [facility] Eosinophils % 2.1 0.0 - 6.0 % 09/07/2013 12:30 PM [facility] Basophils % 0.4 0.0 - 2.0 % 09/07/2013 12:30 PM [facility] Immature Granulocytes 0.3 0 - 1 % 09/07/2013 12:30 PM [facility] Neutrophil Absolute 5.59 2.01 - 7.14 x10^9/L 09/07/2013 12:30 PM [facility] Lymphocytes Absolute 1.35 1.07 - 3.94 x10^9/L 09/07/2013 12:30 PM [facility] Monocytes Absolute 0.61 0.26 - 1.07 x10^9/L 09/07/2013 12:30 PM [facility] Eosinophils Absolute 0.16 0 - 0.47 x10^9/L 09/07/2013 12:30 PM [facility] Basophils Absolute 0.03 0 - 0.08 x10^9/L 09/07/2013 12:30 PM [facility] Immature Granulocytes Absolute 0.02 0.00 - 0.06 x10^9/L 09/07/2013 12:30 PM [facility] Blood BLOOD SPECIMEN / Unknown Lab Venipuncture / Unknown 09/07/2013 12:15 PM LINOLEUM LAYER HELPER 09/07/2013 12:23 PM LINOLEUM LAYER HELPER Angeline Olmos MD LAB - HEMATOLOGY ORD ERABLES Performing Organization Address City/State/[facility] Co de Phone Number [facility] [address] [place] [address] documented in this encounter Visit Diagnoses Diagnosis Abdominal pain, unspecified site- Primary documented in this encounter Care Teams Tax Compliance Officer Relationship Specialty [place] [address] [address] PCP - General Family Medicine 09/07/13 05/13/20 documented as of this encounter
--- OUTSIDE RECORDS SUMMARY | 2024-07-02 05:03 | XMS_ITS | Encounter Summary ---
Author Organization [facility] Address [address] [facility] [facility] [address] Care Team Providers Care Residence Leasing Agent Name Role Phone Priya Mora MD Primary Care Provider Encounter Details Date Type Department Care Team (Late Contact Info) Description 12/24/2016 Orders Only [facility] [address] [place] [address] Teresita De Paz Breast asymmetry Social History [...] (Late Contact Info) Description 07/19/2024 9:45 AM LAND ECONOMIST Office Visit [facility] - ALLOCATIONS CLERK [address] [place] [address] Leatha Gupta MD [address] [place] [address] 12/11/2024 9:00 AM CDT Office Visit [facility] - Surgery [address] [place] [address], [address] [place] [address] [place] [address] [place] [address] [address] [place] [address] 12/11/2024 10:40 AM CDT Office Visit [facility] [address] [place] [address]. [address] [place] [address] [place] [address] [facility] 100 [place] [address] documented as of this encounter Procedures Procedure [...] breast documented in this encounter Care Teams Residence Leasing Agent Relationship Specialty [place] [address] [address] [facility] [address] [place] [phone] PCP - General Family Medicine 09/07/13 05/13/20 documented as of this encounter
--- OUTSIDE RECORDS SUMMARY | 2024-07-02 05:03 | XMS_ITS | Encounter Summary ---
Author Organization [facility] Address [address] [place] [address] Care Team Providers Care General Foreman Name Role Phone Priya Mora MD Primary [...] st Contact Info) Description 07/19/2024 9:45 AM LOFT WORKER PILE DRIVING Office Visit [facility] - INSURANCE AND BENEFITS CLERK [address] [address] Leatha Gupta MD [address] [place] [address] 12/11/2024 9:00 AM CDT Office Visit [facility] - Surgery [address] [facility], [address] [place] [address] [place] [address] [facility] [address] [place] [address] 12/11/2024 10:40 AM CDT Office Visit [facility] Cancer Care [address] [place] [address] [address] [place] [address] [place] [address] [facility] 100 [place] [address] documented as of this encounter Visit Diagnoses Not on filedocumented in this encounter Care Teams General Foreman Relationship Specialty [place] [address] [phone] PCP - General Family Medicine 09/07/13 05/13/20 documented as of this encounter
--- OUTSIDE RECORDS SUMMARY | 2024-07-02 05:03 | XMS_ITS | Encounter Summary ---
Author Organization [facility] Address [address] [facility] [place] [address] Care Team Providers Care Human Resources Training Manager Name Role Phone Priya Mora MD Primary Care Provider Reason for Visit * Reason Comments Well Women Exam pt here for WWE Encounter Details Date Type Department Care Team (Late st Contact Info) Description 01/03/2019 10:00 AM CDT Office Visit [facility] Medical [facility] - PLEATER HAND [address] [place] [address] Leatha Gupta MD [address] [place] [address] Well woman exam (Primary Dx); [...] any lesions or abnormalities. Normal Bartholin's and Waskom's. Vagina: Moist, pink rugae without any lesions. [...] st Contact Info) Description 07/19/2024 9:45 AM SURGICAL SERVICES DIRECTOR Office Visit [facility] Medical Group - PLEATER HAND [address] [address] Leatha Gupta MD [address] [place] [address] 12/11/2024 9:00 AM CDT Office Visit [facility] - Surgery [address] [facility], [address] [place] [address] [place] [address] [address] [place] [address] 12/11/2024 10:40 AM CDT Office Visit [facility] Cancer Care [address] [facility] [address] [place] [address] [place] [address] [address] [facility] 100 [place] [address] documented as of this encounter Visit Diagnoses Diagnosis Well woman exam- Primary Routine general medical examination at a health care facility PCOS (polycystic ovarian syndrome) Polycystic ovaries Uses oral contraception documented in this encounter Care Teams Human Resources Training Manager Relationship Specialty [place] [address] [address] [place] [address] PCP - General Family Medicine 09/07/13 05/13/20 documented as of this encounter
--- OUTSIDE RECORDS SUMMARY | 2024-07-02 05:03 | XMS_ITS | Encounter Summary ---
Author Organization [facility] Address [address] [facility] [place] [address] Care Team Providers Care Security Control Room Officer Name Role Phone Priya Mora MD Primary Care Provider Reason for Referral * - Closed Specialty Diagnoses / Procedures Referred By Contac t Referred To Contact Diagnoses Abdominal pain, unspecified site Procedures CT ABDOMEN AND PELVIS WITH IV CONTRAST Angeline Olmos MD [address] [place] [address] [facility] [address] [place] [address] Referral ID Status Reason Start Date Expiration Date Visits Re quested Visits Authorized [id number] Closed 09/07/2013 10/22/2013 1 1 RNMENT SALES MANAGER Reason for Visit * - Closed Specialty Diagnoses / Procedures Referred By Contac t Referred To Contact Diagnoses Abdominal pain, unspecified site Procedures CT ABDOMEN AND [place] [address] [place] [address] [facility] [address] [place] [address] Referral ID Status Reason Start Date Expiration Date Visits Re quested Visits Authorized [id number] Closed 09/07/2013 10/22/2013 1 1 Encounter Details Date Type Department Care Team (Latest Contact Info) Description 09/07/2013 2:35 PM GOVERNMENT SALES MANAGER - 09/07/2013 11:59 PM GOVERNMENT SALES MANAGER Hospital Encounter [facility] Imaging Services - CT Scan [address] [place] [address] Angeline Olmos MD [address] [facility] [address] [place] [address] Discharge Disposition: Home or Self Care Social [...] st Contact Info) Description 07/19/2024 9:45 AM GOVERNMENT SALES MANAGER Office Visit [facility] - TONG CARRIER [address] [place] [address] Leatha Gupta MD [address] [place] [address] 12/11/2024 9:00 AM CDT Office Visit [facility] - Surgery [address] [facility] [place] [address] [place] [address] [place] [address] [place] [address] 12/11/2024 10:40 AM CDT Office Visit [facility] Cancer Care [address] [place] [address] [address] [place] [address] [place] [address] [address] [address] documented as of this encounter Procedures Procedure Name Priority Date/Time Associated Diagnosis Comments CT ABDOMEN PELVIS W CONTRAST Routine 09/07/2013 2:50 PM GOVERNMENT SALES MANAGER Abdominal pain, unspecified site documented in this encounter Results * CT ABDOMEN AND PELVIS WITH IV CONTRAST (09/07/2013 2:50 PM GOVERNMENT SALES MANAGER) Anatomical Region Laterality Modality Abdomen, Pelvis Computed Tomogra phy 09/07/2013 3:27 PM GOVERNMENT SALES MANAGER Impressions 09/07/2013 4:27 PM GOVERNMENT SALES MANAGER 2.35 cm right adnexal/ovarian cyst, otherwise, unremarkable. Edited by Stella Hoffman on 09/07/2013 3:34 PM Narrative 09/07/2013 4:27 [address]ES MANAGER [address] ABDOMEN WITH CONTRAST CT PELVIS WITH [...] at 0135 $ Given 09/07/2013 2:35 PM GOVERNMENT SALES MANAGER 100 mL documented in this encounter Care Teams Security Control Room Officer Relationship Specialty [place] [address] [address] PCP - General Family Medicine 09/07/13 05/13/20 documented as of this encounter
--- OUTSIDE RECORDS SUMMARY | 2024-07-02 05:03 | XMS_ITS | Encounter Summary ---
Author Organization [facility] Address [address] [place] [address] Care Team Providers Care Lab Manager Name Role Phone Priya Mora MD [...] Contact Info) Description 07/19/2024 9:45 AM METAL RIVET MACHINE OPERATOR Office Visit [facility] - TREE THINNER [address] [address] Leatha Gupta MD [address] [place] [address] 12/11/2024 9:00 AM CDT Office Visit [facility] - Surgery [address] [facility], [address] [place] [address] [place] [address] [facility] 305 [place] [address] 12/11/2024 10:40 AM CDT Office Visit [facility] Cancer Care [address] [place] [address] [address] [place] [address] [place] [address] [facility] 100 [place] [address] documented as of this encounter Visit Diagnoses Not on filedocumented in this encounter Care Teams Lab Manager Relationship Specialty [place] [address] [phone] PCP - General Family Medicine 09/07/13 05/13/20 documented as of this encounter
--- OUTSIDE RECORDS SUMMARY | 2024-07-02 05:03 | XMS_ITS | Encounter Summary ---
Author Organization [facility] Address [address] [place] [address] Care Team Providers Care Gore Stitcher Name Role Phone Priya Mora MD Primary Care Provider Reason for Visit * Reason Comments Res Habilitation Assistant Exam WWE Encounter Details Date Type Department Care Team (Late st Contact Info) Description 12/08/2016 10:45 AM CDT Office Visit [facility] Medical [facility] - PRODUCT TESTER [address] [facility] [place] [address] Leatha Gupta MD [address] [place] [address] Well woman exam (Primary Dx); [...] any lesions or abnormalities. Normal Bartholin's and Kenefic's. Vagina: Moist, pink rugae without any lesions. [...] st Contact Info) Description 07/19/2024 9:45 AM TARIFF CLERK Office Visit [facility] - PRODUCT TESTER [address] [address] Leatha Gputa MD [address] [place] [address] 12/11/2024 9:00 AM CDT Office Visit [facility] Medical Group - Surgery [address] [facility], [address] [place] [address] [place] [address] [address] [place] [address] 12/11/2024 10:40 AM CDT Office Visit [facility] Cancer Care [address] [facility] [address] [place] [address] [place] [address] [facility] 100 [place] [address] documented as of this encounter Visit Diagnoses Diagnosis Well woman exam- Primary Routine general medical examination at a health care facility Uses oral contraception PCOS (polycystic ovarian syndrome) Polycystic ovaries documented in this encounter Care Teams Gore Stitcher Relationship Specialty [place] [address] [address] [facility] 101 [place] [phone] PCP - General Family Medicine 09/07/13 05/13/20 documented as of this encounter
--- OUTSIDE RECORDS SUMMARY | 2024-07-02 05:03 | XMS_ITS | Encounter Summary ---
Author Organization [facility] Address [address] [facility] [place] [address] Care Team Providers Care Bike Designer Name Role Phone Priya Mora MD Primary Care Provider Reason for Referral * Radiology Services (Routine) - Closed Specialty Diagnoses / Procedures Referred By Sherie jacobo Referred To Contact Diagnoses Visit for screening mammogram Procedures MAMMO BILAT SCREENING Leatha Gupta MD [address] [place] [address] Referral ID Status Reason Start Date Expiration Date Visits Re quested Visits Authorized [id number] Closed 01/04/2019 07/03/2019 1 1 Reason for Visit * Radiology Services (Routine) - Closed Specialty Diagnoses / Procedures Referred By Sherie jacobo Referred To Contact Diagnoses Visit for screening mammogram Procedures MAMMO BILAT SCREENING Leatha Gupta MD [address] [place] [address] Referral ID Status Reason Start Date Expiration Date Visits Re quested Visits Authorized [id number] Closed 01/04/2019 07/03/2019 1 1 Encounter Details Date Type Department Care Team (Late st Contact Info) Description 01/05/2019 11:41 AM CDT - 01/05/2019 11:59 PM CDT Hospital Encounter [facility] Breast Care [address] [place] [address] Leatha Gupta MD [address] [place] [address] Discharge Disposition: Home or Self [...] Contact Info) Description 07/19/2024 9:45 AM DIESEL ENGINE PIPE FITTER Office Visit [facility] - LABORER VINEYARD [facility] [place] [address] Leatha Gupta MD [address] [place] [address] 12/11/2024 9:00 AM CDT Office Visit [facility] - Surgery [address] [place] [address], [address] [place] [address] [place] [address] [address] [address] 12/11/2024 10:40 AM CDT Office Visit [facility] Cancer Care [address] [place] [address] [address] [place] [address] [address] [address] documented as of this encounter [...] participate in the care of your patient. [facility] utilizes [employer]lic as a reminder system to notify patients of their next recommended mammogram. Reading Radiologist: Sydnie Isabel MD on 01/05/2019 at 2:27 PM Narrative 01/05/2019 2:27 PM CDT EXAMINATION: Digital screening mammogram on 01/05/2019. Low-dose full-field digital breast tomosynthesis examination was performed with synthetic 2D images and 3D acquisitions. Computer assisted detection was utilized. PRIOR: Multiple prior mammograms from [facility], most recently 05/04/2018 and dating back to [...] mammogram documented in this encounter Care Teams Bike Designer Relationship Specialty [place] [address] [phone] PCP - General Family Medicine 09/07/13 05/13/20 documented as of this encounter
--- OUTSIDE RECORDS SUMMARY | 2024-07-02 05:03 | XMS_ITS | Encounter Summary ---
Author Organization [facility] Health Address [address] [place] [address] Care Team Providers Care Body Mechanic Name Role Phone Priya Mora MD Primary Care Provider Naya Leonard DO Unavailable [phone] Bernardo Lizarraga MD Unavailable [phone] Celina Sifuentes MD Primary Care Provider [phone] Keisha Pineda Primary Care Pr ovider Encounter Details Date Type Department Care Team (Late st Contact Info) Description 05/10/2018 [facility] Outpatient Visit [facility] [address] [place] [address] [place] [address] [address] Social History Tobacco Use Types [...] (Late Contact Info) Description 07/19/2024 9:45 AM STORE PERSON Office Visit [facility] - ONSHORE DIVER [address] [place] [address] Leatha Gupta MD [address] [place] [address] 12/11/2024 9:00 AM CDT Office Visit [facility] - Surgery [address] [facility], [address] [place] [address] [place] [address] [facility] [address] [place] [address] 12/11/2024 10:40 AM CDT Office Visit [facility] [address] [place] [address] [address] [place] [address] [place] [address] [facility] [address] [place] [address] documented as of this encounter Visit Diagnoses Not on filedocumented in this encounter Care Teams Body Mechanic Relationship Specialty [place] [address] [phone] PCP - General Family Medicine 09/07/13 05/13/20 Celina Sifuentes MD [address] [place] [address] PCP - General Family Medicine 02/16/23 11/14/23 Keisha Pineda PA [address] [place] [id number] PCP - General Physician Statistical Technician 11/15/23 [place] [address] [place] [address] Surgical Oncologist Surgical Oncology 02/15/23 [place] [address] [facility] [address] [place] [address] Residential Sales Executive/Oncologist Hematology and Oncology 02/16/23 documented as of this encounter
--- OUTSIDE RECORDS SUMMARY | 2024-07-02 05:03 | XMS_ITS | Encounter Summary ---
Author Organization [facility] Address [address] [place] [address] Care Team Providers Care Insulation And Flooring Assembler Name Role Phone Unavailable Primary Care Provider Unavailabl e Reason for Referral * Radiology Services (Routine) - Closed Specialty Diagnoses / Procedures Referred By Contac t Referred To Contact Diagnoses Visit for screening mammogram Procedures MAMMO SCREENING DIGITAL IMAGE BILAT G0202 Leatha Gupta MD [address] [place] [address] Referral ID Status Reason Start Date Expiration Date Visits Re quested Visits Authorized [id number] Closed 05/20/2020 05/20/2021 1 1 CY SERVICE COORDINATOR Reason for Visit * Radiology Services (Routine) - Closed Specialty Diagnoses / Procedures Referred By Contac t Referred To Contact Diagnoses Visit for screening mammogram Procedures MAMMO SCREENING DIGITAL IMAGE BILAT G0202 Leatha Gupta MD [address] [place] [address] Referral ID Status Reason Start Date Expiration Date Visits Re quested Visits Authorized [id number] Closed 05/20/2020 05/20/2021 1 1 Encounter Details Date Type Department Care Team (Late st Contact Info) Description 05/22/2020 11:51 AM POLICY SERVICE COORDINATOR - 05/22/2020 11:59 PM POLICY SERVICE COORDINATOR Hospital Encounter [facility] [address] [place] [address] Leatha Gupta MD [address] [place] [address] Discharge Disposition: Home or Self [...] st Contact Info) Description 07/19/2024 9:45 AM POLICY SERVICE COORDINATOR Office Visit [facility] - WELFARE CASE WORKER [address] [place] [address] Leatha Gupta MD [address] [place] [address] 12/11/2024 9:00 AM CDT Office Visit [facility] - Surgery [address] [facility], [address] [place] [address] [place] [address] [place] [address] 12/11/2024 10:40 AM CDT Office Visit [facility] [address] [facility] [address] [place] [address] [place] [address] [facility] [address] [place] [address] documented as of this encounter Procedures Procedure Name Priority Date/Time Associated Diagnosis Comments MAMMO BILAT SCREENING Routine 05/22/2020 12:12 PM POLICY SERVICE COORDINATOR Visit for screening mammogram documented in this encounter Results * MAMMO SCREENING DIGITAL IMAGE BILAT G0202 (05/22/2020 12:12 PM POLICY SERVICE COORDINATOR) Anatomical Region Laterality Modality Breast Bilateral Mammography 05/22/2020 1:19 PM POLICY SERVICE COORDINATOR Narrative 05/22/2020 1:35 PM POLICY SERVICE COORDINATOR DIGITAL BILATERAL SCREENING MAMMOGRAMS WITH CAD AND [...] if suspicious findings are present clinically. An [employer] Facility. [facility] utilizes [employer] as a reminder system to notify patients of their next recommended mammograms. Edited by Annalise Ford on 05/22/2020 1:25 PM *Reading Radiologist: Monalisa Duncan on 05/22/2020 at 1:35 PM Leatha Gupta MD MAMMO ORDERABLES documented in this encounter Visit Diagnoses Diagnosis Visit for screening mammogram Other screening mammogram documented in this encounter
--- OUTSIDE RECORDS SUMMARY | 2024-07-02 05:03 | XMS_ITS | Encounter Summary ---
Author Organization [facility] Address [address] [place] [address] Care Team Providers Care Emergency Medical Technician/Driver Name Role Phone Priya Mora MD Primary Care Provider Reason for Referral * Radiology Services (Routine) - Closed Specialty Diagnoses / Procedures Referred By Sherie t Referred To Contact Diagnoses Breast asymmetry Procedures US BREAST RIGHT COMPLETE Leatha Gupta MD [address] [place] [address] Referral ID Status Reason Start Date Expiration Date Visits Re quested Visits Authorized [id number] Closed 12/14/2016 06/12/2017 1 1 * Radiology Services (Routine) - Closed Specialty Diagnoses / Procedures Referred By Sherie jacobo Referred To Contact Diagnoses Breast asymmetry Procedures MAMMO DIAG DIRECT DIGITAL IMAGE UNIL RIGHT Leatha Gupta MD [address] [place] [address] Referral ID Status Reason Start Date Expiration Date Visits Re quested Visits Authorized [id number] Closed 12/14/2016 06/12/2017 1 1 Encounter Details Date Type Department Care Team (Late st Contact Info) Description 12/14/2016 Orders Only [facility] - REMARKETING REP [facility] [address] Leatha Gupta MD [address] [place] [address] Breast asymmetry Social History Tobacco [...] st Contact Info) Description 07/19/2024 9:45 AM ASSEMBLER LAY UPS Office Visit [facility] - REMARKETING REP [address] [place] [address] Leatha Gupta MD [address] [place] [address] 12/11/2024 9:00 AM CDT Office Visit [facility] - Surgery [address] [place] [address], [address] [place] [address] [place] [address] [address] 12/11/2024 10:40 AM CDT Office Visit [facility] [address] [place] [address] [address] Bernardo Lizarraga MD [address] [place] [address] [facility] [address] [place] [address] documented as of this encounter [...] breast documented in this encounter Care Teams Emergency Medical Technician/Driver Relationship Specialty [place] [address] [facility] [address] [place] [address] PCP - General Family Medicine 09/07/13 05/13/20 documented as of this encounter
--- OUTSIDE RECORDS SUMMARY | 2024-07-02 05:04 | XMS_ITS | Encounter Summary ---
Author Organization [facility] HealthCare Address [address] [place] [address] Phone Care Team Providers Care Quality Assurance/R&D Lab Technician Name Role Phone Caroline Avina APRN, SELAM Primary Care P elizbaeth Encounter Details Date Type Department Care Team (Late st Contact Info) Description 07/09/2021 8:15 AM BISQUE GRADER Lab [facility] [place] [address] [place] [address] Testing, [facility] Nurse [place] Encounter for screening for COVID-19 Discharge Disposition: [...] with no difficulty and patient tolerated well. UE GRADER documented in this encounter Plan of Treatment Not on file documented as of this encounter Procedures Procedure Name Priority Date/Time Associated Diagnosis Comments POCT SARS ANTIGEN KELVIN Routine 07/09/2021 8:20 AM BISQUE GRADER Encounter for screening for COVID-19 documented in this encounter Results * (ABNORMAL) POCT SARS ANTIGEN KELVIN (07/09/2021 8:20 AM BISQUE GRADER) POC SARS ANTIGEN KELVIN Positive(A) Negative POC SARS ANTIGEN KELVIN CONTROL [place] Swab NASAL STRUCTURE / Unknown 07/09/2021 8:20 AM BISQUE GRADER Caroline Avina APRN, CNP POINT OF CARE T ESTING (MANUAL) Final Result documented in this encounter Visit Diagnoses Diagnosis Encounter for screening for COVID-19 documented in this encounter Additional Health Concerns Infection Onset Date Last Indicated Resolved Time COVID - 19 07/08/2021 07/09/2021 07/28/2021 12:1 7 AM BISQUE GRADER Assessment Noted Time PHQ-9 Depression Total Score: 0 02/01/20 10:00 AM CDT documented as of this encounter Care Teams Quality Assurance/R&D Lab Technician Relationship Specialty Start Date End Date Caroline Avina APRN, CNP [address] [place] [address] PCP - General Advanced Practice Nurse 01/31/19 documented as of this encounter
--- OUTSIDE RECORDS SUMMARY | 2024-07-02 05:04 | XMS_ITS | Encounter Summary ---
Author Organization [facility] HealthCare Address [address] [place] [address] Phone Care Team Providers Care Occupational Therapy Assistant Name Role Phone Caroline Avina APRN, SELAM Primary Care P elizabeth Encounter Details Date Type Department Care Team (Late st Contact Info) Description 05/05/2020 1:40 PM CDT Lab [facility] [place] [address] [place] [address] Testing, [facility] Nurse [place] Discharge Disposition: Discharged to home or Selfcare [...] 19 05/05/2020 05/05/2020 06/02/2020 12:1 8 AM CONE MACHINE FEEDER Assessment Noted Time PHQ-9 Depression Total Score: 0 02/01/20 10:00 AM CDT documented as of this encounter Care Teams Occupational Therapy Assistant Relationship Specialty Start Date End Date Caroline Avina, CERTIFIED PHLEBOTOMIST, USER EXPERIENCE RESEARCHER [address] [place] [address] PCP - General Advanced Practice Nurse 01/31/19 documented as of this encounter
--- OUTSIDE RECORDS SUMMARY | 2024-07-02 05:04 | XMS_ITS | Encounter Summary ---
Author Organization [facility] Address [address] [facility] [place] [address] Phone Care Team Providers Care Cream Maker Name Role Phone Caroline Avina APRN, CNP Primary Care P elizabeth Reason for Visit * Reason Onset Date Comments Need Order 07/08/2021 BAM Encounter Details Date Type Department Care Team ([facility] st Contact Info) Description 07/08/2021 Telephone [facility] [address] [place] [address] Caroline Avina APRN, NET C DEVELOPER [address] [place] [address] Need Order (BAM) Social History Tobacco Use [...] BAM paperwork faxed to [facility] with success. SION TESTER * Telephone Encounter - Whitney Burden RN - 07/08/2021 3:45 PM CST Pt scheduled for PCR. SION TESTER * Telephone Encounter - Bernadette Harrington CMA - 07/08/2021 3:34 PM CST [facility] notified, verbalized understanding. Agreeable to testing. Drive- up appointment scheduled for tomorrow morning. Order pended. SION TESTER * Telephone Encounter - Caroline Avina APRN, CNP - 07/08/2021 3:30 PM CST Needs PCR or antigen positive to fax with request SION TESTER * Telephone Encounter - Bernadette Harrington CMA - 07/08/2021 3:11 PM CST Called [facility] regarding request. Symptoms started 07/04/21. Took home test on 07/05/21 and it was positive. If request approved by provider, will also need to have patient come in and have a PCR confirmationtest before being able to refer. SION TESTER * Telephone Encounter - Jillian Cabral - 07/08/2021 2:58 PM CST Patient calling to see about getting referral for BAM infusion. SION TESTER documented in this encounter Plan of Treatment Not on file documented as of this encounter Results * (ABNORMAL) POCT SARS ANTIGEN KELVIN (07/09/2021 8:20 AM ADHESION TESTER) POC SARS ANTIGEN KELVIN Positive(A) Negative POC SARS ANTIGEN KELVIN CONTROL [employer] Swab NASAL STRUCTURE / Unknown 07/09/2021 8:20 AM ADHESION TESTER Caroline Avina APRN, CNP POINT OF CARE T ESTING (MANUAL) Final Result documented in this encounter Visit Diagnoses Diagnosis Encounter for screening for COVID-19- Primary documented in this encounter Additional Health Concerns Infection Onset Date Last Indicated Resolved Time COVID - 19 07/08/2021 07/09/2021 07/28/2021 12:1 7 AM ADHESION TESTER COVID - 19 Confirmed 07/09/2021 07/09/2021 022 12:16 AM ADHESION TESTER Assessment Noted Time PHQ-9 Depression Total Score: 0 02/01/20 19 10:00 AM CDT documented as of this encounter Care Teams Cream Maker Relationship Specialty Start Date End Date Caroline Avina APRN, SELAM [address] [place] [address] PCP - General Advanced Practice Nurse 01/31/19 documented as of this encounter
--- OUTSIDE RECORDS SUMMARY | 2024-07-02 05:04 | XMS_ITS | Encounter Summary ---
Author Organization [facility] Address [address] [facility] [place] [address] Phone Care Team Providers Care Body Work Auto Trimmer Name Role Phone Caroline Avina APRN, CNP Primary Care P rovider Reason for Visit * Reason Onset Date Comments COVID-19 05/05/2020 Encounter Details Date Type Department Care Team ([facility] Contact Info) Description 05/05/2020 Telephone [facility] Digital Contact Center [address] [place] [address] Caroline Avina APRN, C S S REPRESENTATIVE [address] [place] [address] COVID-19 Social History Tobacco Use Types Packs/Day [...] further on next steps. Did patient refuse plastic top assembler? no. ??? If patient refuses to speak [...] documented as of this encounter Care Teams Body Work Auto Trimmer Relationship Specialty Start Date End Date Caroline Avina APRN, C S S REPRESENTATIVE [address] [place] [address] PCP - General Advanced Practice Nurse 01/31/19 documented as of this encounter
--- OUTSIDE RECORDS SUMMARY | 2024-07-02 05:04 | XMS_ITS | Encounter Summary ---
Author Organization [facility] HealthCare Address [address] [facility] [place] [address] Phone Care Team Providers Care Interior Designer Name Role Phone Caroline Avina APRN, SELAM Primary Care P elizabeth Reason for Visit * Reason Comments COVID-19 Encounter Details Date Type Department Care Team ([facility] Contact Info) Description 05/05/2020 11:00 AM CDT Telemedicine [facility] Digital Contact Center [address] [place] [address] Oumou Balderrama APRN, MANAGER QUALITY [address] [place] [address] Exposure to COVID-19 virus (Primary Dx); Fatigue, [...] from the original note were not included. [facility] SUBJECTIVE Chief Complaint Patient presents with [...] report positive screen and symptoms. -For [facility] who are COVID confirmed but were [...] BY MOLECULAR Patient to go to [facility] was notified and will call the schedule. Patient was assessed via telephone for a duration of 0-15 minutes. Patient verbally consented for this service to be performed. - Oumou Balderrama APN, MANAGER QUALITY documented in this encounter Plan of Treatment [...] Range for this test is Not Detected) [facility] THERMOFISHER FAST DX 05/06/2020 11:09 PM CDT [facility] Swab NASOPHARYNGEAL STRUCTURE / Unknown Non-Phlebotomy Collection / Unknown 05/05/2020 1:38 PM CDT 05/05/2020 1:38 PM CDT Narrative [facility] - 05/06/2020 11:09 PM CDT Authorized Fact Sheets about this test for providers and patients are available at: https://www.fda.gov/medical-devices/rmfwgiztl-hvmjacpwjk-enhiyql-devices/emergen -us e-authorizations us Oumou Balderrama APRN, SELAM MICROBIOLOGY - GENERAL O RDERABLES Final Result [facility] [address] [place] [address], documented in this encounter Visit Diagnoses Diagnosis [...] documented as of this encounter Care Teams Interior Designer Relationship Specialty Start Date End Date Caroline Avina APRN, MANAGER QUALITY [address] [place] [address] PCP - General Advanced Practice Nurse 01/31/19 documented as of this encounter
--- OUTSIDE RECORDS SUMMARY | 2024-07-02 05:04 | XMS_ITS | Encounter Summary ---
Author Organization [facility] Care Team Providers Care Leather Goods Assembler Name Role Phone Caroline Avina APRN, CNP Primary Care [phone] Encounter Details Date Type Department Care Team [...] 19 05/05/2020 05/05/2020 06/02/2020 12:1 8 AM BIG DATA LEAD Assessment Noted Time PHQ-9 Depression Total Score: 0 02/01/20 19 10:00 AM CDT documented as of this encounter Care Teams Leather Goods Assembler Relationship Specialty Start Date End Date Caroline Avina APRN, CNP [address] [place] [address] PCP - General Advanced Practice Nurse 01/31/19 documented as of this encounter
--- OUTSIDE RECORDS SUMMARY | 2024-07-02 05:04 | XMS_ITS | Encounter Summary ---
Author Organization [facility] HealthCare Address [address] [place] [address] Phone Care Team Providers Care Diving Fisher Name Role Phone Provider, None Primary Care Provider Unavailabl e Leatha Gupta MD Unavailable Unavailabl e Reason for Visit * Reason Comments Flank Pain Encounter Details Date Type Department Care Team (Late st Contact Info) Description 06/01/2022 2:15 PM MC KAY STITCHER Office Visit [facility] - Primary Care - [place] [address] [place] [address] Sy Garnica MD [address] [place], [place] [id number] Dysuria (Primary Dx) Discharge Disposition: Discharged to [...] Coronavirus/COVID-19? No / Unsure 06/01/2022 1:46 PM MC KAY STITCHER documented as of this encounter Last Filed Vital Signs Vital Sign Reading Time Taken Comments Blood Pressure 118/62 06/01/2022 2:01 PM MC KAY STITCHER Pulse 83 06/01/2022 2:01 PM MC KAY STITCHER Temperature 36.7 ??C (98 ??F) 06/01/2022 2:01 PM MC KAY STITCHER Respiratory Rate 16 06/01/2022 2:01 PM MC KAY STITCHER Oxygen Saturation 98% 06/01/2022 2:01 PM MC KAY STITCHER Inhaled Oxygen Concentration - - Weight 93 kg (205 lb) 06/01/2022 2:01 PM MC KAY STITCHER Height 162.6 cm (5' 4 ) 06/01/2022 2:01 PM MC KAY STITCHER Body Mass Index 35.19 06/01/2022 2:01 PM MC KAY STITCHER documented in this encounter Functional Status * Question Answer Date of Assessment Author Little interest or pleasure in doing things Not at all 06/01/2022 2:00 PM Sagar Valentin RMA Feeling down, depressed, or hopeless Not at all 06/01/2022 2:00 PM MC KAY STITCHER Caitlyn Ya RMA * Over the past 2 weeks, how often have you been bothered by any of the following problems? Question Answer Date of Assessment Author Patient Health Questionnaire -2 Score 0 06/01/2022 2:00 PM MC KAY STITCHER Caitlyn Ya RMA documented as of this [...] been addressed with the patient today: Depression KAY STITCHER * Sy Garnica MD - 06/01/2022 2:15 [...] todaywith the necessary additions, deletions and changes. KAY STITCHER documented in this encounter Plan of Treatment Not on file documented as of this encounter Results * (ABNORMAL) URINALYSIS REFLEX IF INDICATED BY ABNORMAL RESULTS (06/01/2022 2:31 PM MC KAY STITCHER) SPECIFIC GRAVITY 1.015 1.003 - 1.030 06/01/2022 3:25 PM MC KAY STITCHER [facility] URINE PH 7.0 5.0 - 9.0 06/01/2022 3:25 PM MC KAY STITCHER [facility] WBC ESTERASE Negative Negative 06/01/2022 3:25 PM MC KAY STITCHER [facility] NITRITE Negative Negative 06/01/2022 3:25 PM MC KAY STITCHER [facility] PROTEIN, RANDOM URINE 15 mg/dL(A) Negative 06/01/2022 3:25 PM MC KAY STITCHER [facility] URINE GLUCOSE, QUAL Negative Negative 06/01/2022 3:25 PM MC KAY STITCHER [facility] URINE KETONES Negative Negative 06/01/2022 3:25 PM MC KAY STITCHER [facility] UROBILINOGEN Normal Normal mg/dL 06/01/2022 3:25 PM MC KAY STITCHER [facility] URINE BLOOD 25 /uL(A) Negative sue/ul 06/01/2022 3:25 PM MC KAY STITCHER [facility] URINALYSIS COLOR Yellow 06/01/20 3:25 PM MC KAY STITCHER [facility] URINALYSIS CLARITY Slightly Cloudy 06/01/2022 3:25 PM MC KAY STITCHER [facility] WBC (Urine) 0-5 Negative, 0-5 /hpf 06/01/2022 3:25 PM MC KAY STITCHER [facility] URINE RBC'S 3-5(A) Negative, 0-2 /hpf 06/01/2022 3:25 PM MC KAY STITCHER [facility] EPITHELIAL CELLS Small amount /lpf 2021 3:25 PM MC KAY STITCHER [facility] BACTERIA, URINE Few(A) Negative /hpf 06/01/2022 3:25 PM MC KAY STITCHER [facility] CRYSTALS Amorphous urates 06/01/2022 3:25 PM MC KAY STITCHER [facility] Urine URINE SPECIMEN COLLECTION, CLEAN CATCH / Unknown Non-Phlebotomy Collection / Unknown 06/01/2022 2:31 PM MC KAY STITCHER 06/01/2022 2:31 PM MC KAY STITCHER us Sy Garnica MD URINE ORDERABLES Final Re sult [facility] [address] [place] [address] documented in this encounter Visit Diagnoses Diagnosis Dysuria- Primary documented in this encounter Additional Health Concerns Assessment Noted Time PHQ-9 Depression Total Score: 0 02/01/20 19 10:00 AM CDT documented as of this encounter Care Teams Diving Fisher Relationship Specialty Start Date End Date Provider, None [place] PCP - General 03/12/22 Leatha Gupta MD [place] Consulting Physician Obstetrics & Gynecology 06/01/22 documented as of this encounter
--- OUTSIDE RECORDS SUMMARY | 2024-07-02 05:04 | XMS_ITS | Encounter Summary ---
Author Organization [facility] Address [address] [place] [address] Phone Care Team Providers Care Clinical Documentation Spec Name Role Phone Provider, None Primary Care Provider Leatha Ford MD Unavailashanti e Encounter Details Date Type Department Care Team (Late st Contact Info) Description 06/01/2022 2:40 PM WORKFORCE MANAGER Lab [facility] - Primary Care [address] [phone] Lab, [facility] Dysuria Discharge Disposition: Discharged to home [...] Coronavirus/COVID-19? No / Unsure 06/01/2022 1:46 PM WORKFORCE MANAGER documented as of this encounter Functional Status * Question Answer Date of Assessment Author Little interest or pleasure in doing things Not at all 06/01/2022 2:00 PM WORKFORCE MANAGER Sagar Ya, JOYCE Feeling down, depressed, or hopeless Not at all 06/01/2022 2:00 PM WORKFORCE MANAGER Caitlyn Ya RMA * Over the past 2 weeks, how often have you been bothered by any of the following problems? Question Answer Date of Assessment Author Patient Health Questionnaire -2 Score 0 06/01/2022 2:00 PM WORKFORCE MANAGER Caitlyn Ya RMA documented as of this encounter Progress Notes * Jillian Dias - 06/01/2022 2:40 PM CST UA Sent to [facility] FORCE MANAGER documented in this encounter Plan of Treatment Not on file documented as of this encounter Procedures Procedure Name Priority Date/Time Associated Diagnosis Comments URINALYSIS REFLEX IF INDICATED BY ABNORMAL RESULTS Routine 06/01/2022 2:31 PM WORKFORCE MANAGER Dysuria documented in this encounter Results * (ABNORMAL) URINALYSIS REFLEX IF INDICATED BY ABNORMAL RESULTS (06/01/2022 2:31 PM WORKFORCE MANAGER) SPECIFIC GRAVITY 1.015 1.003 - 1.030 06/01/2022 3:25 PM WORKFORCE MANAGER [facility] URINE PH 7.0 5.0 - 9.0 06/01/2022 3:25 PM WORKFORCE MANAGER [facility] WBC ESTERASE Negative Negative 06/01/2022 3:25 PM WORKFORCE MANAGER [facility] NITRITE Negative Negative 06/01/2022 3:25 PM WORKFORCE MANAGER [facility] PROTEIN, RANDOM URINE 15 mg/dL(A) Negative 06/01/2022 3:25 PM WORKFORCE MANAGER [facility] URINE GLUCOSE, QUAL Negative Negative 06/01/2022 3:25 PM WORKFORCE MANAGER [facility] URINE KETONES Negative Negative 06/01/2022 3:25 PM WORKFORCE MANAGER [facility] UROBILINOGEN Normal Normal mg/dL 06/01/2022 3:25 PM WORKFORCE MANAGER [facility] URINE BLOOD 25 /uL(A) Negative sue/ul 06/01/2022 3:25 PM WORKFORCE MANAGER [facility] URINALYSIS COLOR Yellow 06/01/20 3:25 PM WORKFORCE MANAGER [facility] URINALYSIS CLARITY Slightly Cloudy 06/01/2022 3:25 PM WORKFORCE MANAGER [facility] WBC (Urine) 0-5 Negative, 0-5 /hpf 06/01/2022 3:25 PM WORKFORCE MANAGER [facility] URINE RBC'S 3-5(A) Negative, 0-2 /hpf 06/01/2022 3:25 PM WORKFORCE MANAGER [facility] EPITHELIAL CELLS Small amount /lpf 2021 3:25 PM WORKFORCE MANAGER [facility] BACTERIA, URINE Few(A) Negative /hpf 06/01/2022 3:25 PM WORKFORCE MANAGER [facility] CRYSTALS Amorphous urates 06/01/2022 3:25 PM WORKFORCE MANAGER [facility] Urine URINE SPECIMEN COLLECTION, CLEAN CATCH / Unknown Non-Phlebotomy Collection / Unknown 06/01/2022 2:31 PM WORKFORCE MANAGER 06/01/2022 2:31 PM WORKFORCE MANAGER us Sy Garnica MD URINE ORDERABLES Final Re sult [facility] [address] [place] [address] documented in this encounter Visit Diagnoses Diagnosis Dysuria documented in this encounter Additional Health Concerns Assessment Noted Time PHQ-9 Depression Total Score: 0 02/01/20 19 10:00 AM CDT documented as of this encounter Care Teams Clinical Documentation Spec Relationship Specialty Start Date End Date Provider, None [place] PCP - General 03/12/22 Leatha Gupta MD [place] Consulting Physician Obstetrics & Gynecology 06/01/22 documented as of this encounter
--- OUTSIDE RECORDS SUMMARY | 2024-07-02 05:04 | XMS_ITS | Encounter Summary ---
Author Organization [facility] Address [address] 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 documented in this encounter Plan of Treatment Not on file documented as of this encounter Visit Diagnoses Not on filedocumented in this encounter Additional Health Concerns Infection Onset Date Last Indicated Resolved Time COVID - 19 05/05/2020 05/05/2020 06/02/2020 12:1 8 AM GLUE COOK Assessment Noted Time PHQ-9 Depression Total Score: 0 02/01/20 10:00 AM CDT documented as of this encounter Care Teams Director Process Improvement Relationship Specialty Start Date End Date Caroline Avina APRN, MASONRY SUPERVISOR [address] [place] [address] PCP - General Advanced Practice Nurse 01/31/19 documented as of this encounter
--- OUTSIDE RECORDS SUMMARY | 2024-07-02 05:04 | XMS_ITS | Clinical Summary ---
Author Organization [facility] Address [address] [place] [address] Phone Care Team Providers Care Swimming Pool Maintenance Name Role Phone Provider, None Primary Care [...] Lnp-s, Pf, 3 0 Mcg/0.3 Ml Dose ([employer]) 05/04/2021,10/31/2020,10/10/2020 Influenza, Trivalent, Adjuvanted, PF 05/04/2021 TDAP [...] Comments Blood Pressure 118/62 06/01/2022 2:01 PM LAMPS TESTER AND INSPECTOR Pulse 83 06/01/2022 2:01 PM LAMPS TESTER AND INSPECTOR Temperature 36.7 ??C (98 ??F) 06/01/2022 2:01 PM LAMPS TESTER AND INSPECTOR Respiratory Rate 16 06/01/2022 2:01 PM LAMPS TESTER AND INSPECTOR Oxygen Saturation 98% 06/01/2022 2:01 PM LAMPS TESTER AND INSPECTOR Inhaled Oxygen Concentration - - Weight 93 kg (205 lb) 06/01/2022 2:01 PM LAMPS TESTER AND INSPECTOR Height 162.6 cm (5' 4 ) 06/01/2022 2:01 PM LAMPS TESTER AND INSPECTOR Body Mass Index 35.19 06/01/2022 2:01 PM LAMPS TESTER AND INSPECTOR Plan of Treatment Health Maintenance Due Date [...] patient's age to complete this topic Insurance [facility] Care Teams Swimming Pool Maintenance Relationship Specialty Start Date End Date Provider, None [place] PCP - General 03/12/22 Leatha Gupta MD [place] Consulting Physician Obstetrics & Gynecology 06/01/22
--- OUTSIDE RECORDS SUMMARY | 2024-07-02 05:04 | XMS_ITS | Encounter Summary ---
Author Organization [employer] Care Team Providers Care Concrete Placement Equipment Operator Name Role Phone Provider, None Primary Care [...] Coronavirus/COVID-19? No / Unsure 06/01/2022 1:46 PM TOBACCO GROWER documented as of this encounter Functional Status [...] documented as of this encounter Care Teams Concrete Placement Equipment Operator Relationship Specialty Start Date End Date Provider, None [place] PCP - General 03/12/22 Leatha Gupta MD [place] Consulting Physician Obstetrics & Gynecology 06/01/22 documented as of this encounter
--- OUTSIDE RECORDS SUMMARY | 2024-07-02 05:04 | XMS_ITS | Encounter Summary ---
Author Organization [facility] Address [address] [facility] [place] [address] Phone Care Team Providers Care Envelope Sealing Machine Operator Name Role Phone Provider, None Primary Care Provider Unavailabl e Leatha Gupta MD Unavailable Unavailabl e Reason for Visit * Reason Onset Date Comments Abdominal Pain 06/01/2022 Flank Pain 06/01/2022 Encounter Details Date Type Department Care Team (Late st Contact Info) Description 06/01/2022 Nurse Triage [facility] [address] [place] [address] Provider, None [place] Abdominal Pain; [...] Dept Phone 06/01/2022 2:15 PM Sy Garnica [facility] - Family Medicine [place] [phone] She verbalized understanding of appointment date, time, and location. Advised that because she has not been seen in 3 years, office will schedule new patient appointmentat time of acute sickness visit to re-establish care. She verbalized understanding. ALLATION SERVICE REPRESENTATIVE documented in this encounter Plan of Treatment Not on file documented as of this encounter Visit Diagnoses Not on filedocumented in this encounter Additional Health Concerns Assessment Noted Time PHQ-9 Depression Total Score: 0 02/01/20 19 10:00 AM CDT documented as of this encounter Care Teams Envelope Sealing Machine Operator Relationship Specialty Start Date End Date Provider, None [place] PCP - General 03/12/22 Leatha Gupta MD [place] Consulting Physician Obstetrics & Gynecology 06/01/22 documented as of this encounter
--- OUTSIDE RECORDS SUMMARY | 2024-07-02 05:04 | XMS_ITS | Encounter Summary ---
Author Organization [facility] Address [address] [place] [address] Phone Care Team Providers Care Black Puller Name Role Phone Caroline Avina APRN, CNP Primary Care P rovider Reason for Visit * Reason Onset Date Comments COVID-19 05/05/2020 Encounter Details Date Type Department Care Team ([facility] Contact Info) Description 05/05/2020 Nurse Triage [facility] Digital Contact Center [address] [place] [address] Caroline Avina APRN, SHORE MAN [address] [place] [address] COVID-19 Social History Tobacco Use Types Packs/Day [...] ask them to send a request via Mowbly to their provider (you may need to activate a Mowbly account with them). You may also route [...] SOB Protocols used: CORONAVIRUS (COVID-19) DIAGNOSED OR [id number] documented in this encounter Plan of Treatment Not on file documented as of this encounter Visit Diagnoses Not on filedocumented in this encounter Additional Health Concerns Assessment Noted Time PHQ-9 Depression Total Score: 0 02/01/20 19 10:00 AM CDT documented as of this encounter Care Teams Black Puller Relationship Specialty Start Date End Date Caroline Avina APRN, SHORE MAN [address] [place] [address] PCP - General Advanced Practice Nurse 01/31/19 documented as of this encounter
--- OUTSIDE RECORDS SUMMARY | 2024-07-02 05:04 | XMS_ITS | Encounter Summary ---
Author Organization [facility] Address [address] [place] [address] Phone Care Team Providers Care Tree Feller Name Role Phone Caroline Avina APRN, CNP Primary Care P judithder Reason for Visit * Reason Onset Date Comments Health Maintenance 12/22/2021 Encounter Details Date Type Department Care Team (Late st Contact Info) Description 12/22/2021 Telephone [facility] - Primary Care - [place] [address] [place] [address] Caroline Avina APRN, CNP [address] [place] [address] Health Maintenance Social History Tobacco [...] Notes * Telephone Encounter - Bernadette Harrington, AUTOMOTIVE ELECTRICAL FITTER - 12/22/2021 3:08 PM CDT Mammogram results in [facility]. Dated 05/22/20. Please update Health Maintenance accordingly. documented in this encounter Plan of Treatment Not on file documented as of this encounter Visit Diagnoses Not on filedocumented in this encounter Additional Health Concerns Assessment Noted Time PHQ-9 Depression Total Score: 0 02/01/20 19 10:00 AM CDT documented as of this encounter Care Teams Tree Feller Relationship Specialty Start Date End Date Caroline Avina APRN, LAB REP [address] [place] [address] PCP - General Advanced Practice Nurse 01/31/19 documented as of this encounter
--- OUTSIDE RECORDS SUMMARY | 2024-07-02 05:04 | XMS_ITS | Encounter Summary ---
Author Organization [facility] Address [address] [place] [address] Phone Care Team Providers Care Painter Spring Name Role Phone Caroline Avina APRN, CNP Primary Care P rovider Encounter Details Date Type Department Care Team (Late st Contact Info) Description 05/07/2020 Telephone [facility] [address] [place], [place] [id number] Caroline Avina APRN, ECONOMICS FACULTY MEMBER [address] [place] [address] Social History Tobacco Use Types [...] 12:59 PM CDT Printed. Note at front end software developer. * Telephone Encounter - Brennan Mejias RN [...] 19 05/05/2020 05/05/2020 06/02/2020 12:1 8 AM SALES REPRESENTATIVE PRINTING Assessment Noted Time PHQ-9 Depression Total Score: 0 02/01/20 19 10:00 AM CDT documented as of this encounter Care Teams Painter Spring Relationship Specialty Start Date End Date Caroline Avina BENJA, ECONOMICS FACULTY MEMBER [address] [place] [address] PCP - General Advanced Practice Nurse 01/31/19 documented as of this encounter
--- OUTSIDE RECORDS SUMMARY | 2024-07-02 05:06 | XMS_ITS | Encounter Summary ---
Author Organization [facility] Healthcare Address [address] [place] [address] Care Team Providers Care Processor Helper Name Role Phone Unavailable Primary Care Provider Unavailabl e Reason for Visit * Diagnostic Imaging (Routine) - Closed Specialty Diagnoses / Procedures Referred By Contac t Referred To Contact Diagnoses Ductal carcinoma in situ (DCIS) of right breast Procedures Breast Imaging Diagnostic Outside Reference Carey Pemberton MD [address] [place] [address] Phone: tel: fax: Referral ID Status Reason Start Date Expiration Date Visits Re quested Visits Authorized [id number] Closed 01/27/2023 02/26/2024 1 1 Encounter Details Date Type Department Care Team (Latest Contact Info) Description 01/06/2023 - 01/06/2023 11:59 PM CDT Hospital Encounter [facility] [address] [place] [address] Discharge Disposition: Discharge to home or self care Social History Tobacco Use Types Packs/Day Years Used Date Smoking Tobacco: Never Assessed Comments No Sex and Gender Information Value Date Recorded Sex Assigned at Not on file Legal Sex Female 12:19 AM MASTER LAY OUT SPECIALIST Gender Identity Not on file Sexual [...] only and have not been reviewed by [facility]. ??There will be no report generated by a [facility] Radiologist. Narrative RAD_MAMMO_[facility] - 01/27/2023 9:53 AM CDT EXAMINATION: ??Images For Reference Purposes Only us Carey Pemberton MD IMG MAMMO PROCEDURES Fi nal Result [facility]_M[facility]MO[facility] documented in this encounter Visit Diagnoses Not on filedocumented in this encounter
--- OUTSIDE RECORDS SUMMARY | 2024-07-02 05:06 | XMS_ITS | Referral Summary ---
Author Organization [facility] Address [address] [place] [address] Care Team Providers Care Wildlife Rehabilitator Name Role Phone Celina Sifuentes MD Primary Care Provider [phone] Carey Pemberton MD Unavailable Allergies No known [...] on file Legal Sex Female 12:19 AM ADVERTISING DESIGNER Gender Identity Not on file Sexual Orientation Not on file Last Filed Vital Signs Vital Sign Reading Time Taken Comments Blood Pressure 107/72 07/24/2022 10:15 PM ADVERTISING DESIGNER Pulse 72 07/24/2022 10:15 PM ADVERTISING DESIGNER Temperature 36.3 ??C (97.3 ??F) 07/24/2022 3:16 PM CS T Respiratory Rate 24 07/24/2022 10:1 5 PM ADVERTISING DESIGNER Oxygen Saturation 98% 07/24/2022 10: 15 PM ADVERTISING DESIGNER Inhaled Oxygen Concentration - - Weight 91.6 kg (201 lb 15.1 oz) 07/24/2022 3:16 PM ADVERTISING DESIGNER Height 162.6 cm (5' 4.02 ) 07/24/2022 3:16 PM CS T Body Mass Index 34.65 07/24/2022 3:16 PM ADVERTISING DESIGNER Plan of Treatment Not on file Procedures [...] Most Recently Relevant to Health Maintenance Insurance [facility] [place] [address] Care Teams Wildlife Rehabilitator Relationship Specialty Start Date End Date Celina Sifuentes MD [address] [place] [address] PCP - General Family Medicine 01/18/23 Carey Pemberton MD [address] [address] Surgeon Surgical Oncology 01/18/23
--- OUTSIDE RECORDS SUMMARY | 2024-07-02 05:06 | XMS_ITS | Encounter Summary ---
Author Organization [facility] Address [address] [place] [address] Phone Care Team Providers Care Icicle Machine Operator Name Role Phone Celina Sifuentes MD Primary Care Provider [phone] Carey Pemberton MD Unavailable [phone] Encounter Details Date Type Department Care Team (Late st Contact Info) Description 01/19/2023 Telephone [facility] [address] [facility] 5th [place] [address] [place] [address] Karly Grace Social History Tobacco Use Types Packs/Day Years Used Date Smoking Tobacco: Never Assessed Comments No Sex and Gender Information Value Date Recorded Sex Assigned at Not on file Legal Sex Female 12:19 AM OFFICE RECEPTIONIST Gender Identity Not on file Sexual Orientation [...] on filedocumented in this encounter Care Teams Icicle Machine Operator Relationship Specialty Start Date End Date Celina Sifuentes MD [address] [place] [address] PCP - General Family Medicine 01/18/23 Carey Pemberton MD [address] [address] Surgeon Surgical Oncology 01/18/23 documented as of this encounter
--- OUTSIDE RECORDS SUMMARY | 2024-07-02 05:06 | XMS_ITS | Encounter Summary ---
Author Organization [facility] Healthcare Address [address] [place] [address] Care Team Providers Care Marketing Analytics Analyst Name Role Phone Unavailable Primary Care Provider Unavailabl e Reason for Visit * Diagnostic Imaging (Routine) - Closed Specialty Diagnoses / Procedures Referred By Sherie t Referred To Contact Procedures Breast Imaging Procedure Outside Reference Carey Pemberton MD [address] [place] [address] Phone: tel: fax: Referral ID Status Reason Start Date Expiration Date Visits Re quested Visits Authorized [id number] Closed 01/27/2023 02/26/2024 1 1 Encounter Details Date Type Department Care Team (Latest Contact Info) Description 01/06/2023 12:05 AM CDT - 01/06/2023 11:59 PM CDT Hospital Encounter [facility] [address] [place] [address] Discharge Disposition: Discharge to home or self care Social History Tobacco Use Types Packs/Day Years Used Date Smoking Tobacco: Never Assessed Comments No Sex and Gender Information Value Date Recorded Sex Assigned at Not on file Legal Sex Female 12:19 AM COMPOSITE BOND TECHNICIAN Gender Identity Not on file Sexual Orientation [...] only and have not been reviewed by [facility] Radiology. ??There will be no report generated by a [facility] Radiologist. Narrative RAD_MAMMO_[facility] - 01/27/2023 9:53 AM CDT EXAMINATION: ??Images For Reference Purposes Only us Carey Pemberton MD IMG MAMMO PROCEDURES Fi nal Result [facility]MO[facility] documented in this encounter Visit Diagnoses Not on filedocumented in this encounter
--- OUTSIDE RECORDS SUMMARY | 2024-07-02 05:06 | XMS_ITS | Encounter Summary ---
Author Organization [facility] Healthcare Address [address] [place] [address] Care Team Providers Care Behavioral Health Consultant Name Role Phone Unavailable Primary Care Provider Unavailabl e Reason for Visit * Diagnostic Imaging (Routine) - Closed Specialty Diagnoses / Procedures Referred By Sherie t Referred To Contact Procedures Breast Imaging US Outside Reference Carey Pemberton MD [address] [place] [address] Phone: tel: fax: Referral ID Status Reason Start Date Expiration Date Visits Re quested Visits Authorized [id number] Closed 01/27/2023 02/26/2024 1 1 Encounter Details Date Type Department Care Team (Latest Contact Info) Description 01/06/2023 12:10 AM CDT - 01/06/2023 11:59 PM CDT Hospital Encounter [facility] [address] [place] [id number] Discharge Disposition: Discharge to home or self care Social History Tobacco Use Types Packs/Day Years Used Date Smoking Tobacco: Never Assessed Comments No Sex and Gender Information Value Date Recorded Sex Assigned at Not on file Legal Sex Female 12:19 AM KEYPUNCH OPERATOR Gender Identity Not on file Sexual [...] only and have not been reviewed by [facility]iology. ??There will be no report generated by a [facility] Radiologist. Narrative RAD_MAMMO[facility] - 01/27/2023 9:55 AM CDT EXAMINATION: ??Images For Reference Purposes Only us Carey Pemberton MD IMG MAMMO PROCEDURES Fi nal Result [facility]MO[facility] documented in this encounter Visit Diagnoses Not on filedocumented in this encounter
--- OUTSIDE RECORDS SUMMARY | 2024-07-02 05:06 | XMS_ITS | Clinical Summary ---
Author Organization [facility] Address [address] [place] [address] Care Team Providers Care Wire Saw Operator Name Role Phone Celina Sifuentes MD Primary Care Provider [phone] Carey Pemberton MD Unavailable [phone] Allergies No known active allergies Medications No [...] on file Legal Sex Female 12:19 AM CORD CUTTER Gender Identity Not on file Sexual Orientation Not on file Obstetrics History Para Term AB IAB SAB Ectopic Multiple Livin g Live Births 3 3 3 Date Outcome GA Total Labor Labor/2nd/3rd Weight Sex Type Anes PTL Neelima A1 A5 Name Clin Term Term Term Last Filed Vital Signs Vital Sign Reading Time Taken Comments Blood Pressure 107/72 07/24/2022 10:15 PM CORD CUTTER Pulse 72 07/24/2022 10:15 PM CORD CUTTER Temperature 36.3 ??C (97.3 ??F) 07/24/2022 3:16 PM CS T Respiratory Rate 24 07/24/2022 10:1 5 PM CORD CUTTER Oxygen Saturation 98% 07/24/2022 10: 15 PM CORD CUTTER Inhaled Oxygen Concentration - - Weight 91.6 kg (201 lb 15.1 oz) 07/24/2022 3:16 PM CORD CUTTER Height 162.6 cm (5' 4.02 ) 07/24/2022 3:16 PM CS T Body Mass Index 34.65 07/24/2022 3:16 PM CORD CUTTER Plan of Treatment Health Maintenance Due Date [...] to Health [place] [address] [place] [address] [facility] [place] [id number] [facility] Care Teams Wire Saw Operator Relationship Specialty Start Date End Date Celina Sifuentes MD [address] [place] [address] PCP - General Family Medicine 01/18/23 Carey Pemberton MD [address] [address] Surgeon Surgical Oncology 01/18/23
--- OUTSIDE RECORDS SUMMARY | 2024-07-02 05:06 | XMS_ITS | Encounter Summary ---
Author Organization [facility] Healthcare Address [address] [place] [address] Care Team Providers Care Acoustic Warfare Analyst Name Role Phone Celina Sifuentes MD Primary Care Provider [phone] Carey Pemberton MD Unavailable [phone] Reason for Referral * Diagnostic Imaging (Routine) - Closed Specialty Diagnoses / Procedures Referred By Sherie jacobo Referred To Contact Diagnoses Breast mass Procedures Breast Imaging DX Outside Consult Carey Pemberton MD [address] [address] Phone: tel: fax: [facility] Referral ID Status Reason Start Date Expiration Date Visits Re quested Visits Authorized [id number] Closed 01/18/2023 02/17/2024 1 1 Reason for Visit * Diagnostic Imaging (Routine) - Closed Specialty Diagnoses / Procedures Referred By Sherie jacobo Referred To Contact Diagnoses Breast mass Procedures Breast Imaging DX Outside Consult aCrey Pemberton MD [address] [address] Phone: tel: fax: [facility] Referral ID Status Reason Start Date Expiration Date Visits Re quested Visits Authorized [id number] Closed 01/18/2023 02/17/2024 1 1 Encounter Details Date Type Department Care Team (Latest Contact Info) Description 01/27/2023 5:06 PM CDT - 01/27/2023 11:59 PM CDT Hospital Encounter [facility] ([facility]) [facility] [place] [address] Discharge Disposition: Discharge to home or self care Social History Tobacco Use Types Packs/Day Years Used Date Smoking Tobacco: Never Assessed Comments No Sex and Gender Information Value Date Recorded Sex Assigned at Not on file Legal Sex Female 12:19 AM BLOCK STACKER Gender Identity Not on file Sexual Orientation [...] images may or may not represent the [place] source data set and thus may contain [...] OF OUTSIDE IMAGING FACILITY PERFORMING OUTSIDE IMAGING: [facility] EXAM(S) REVIEWED: 1. ??BILATERAL DIAGNOSTIC MAMMOGRAM [...] OF OUTSIDE IMAGING FACILITY PERFORMING OUTSIDE IMAGING: [facility] EXAM(S) REVIEWED: 1. BILATERAL DIAGNOSTIC MAMMOGRAM [...] images may or may not represent the [place] source data set and thus may contain [...] on filedocumented in this encounter Care Teams Acoustic Warfare Analyst Relationship Specialty Start Date End Date Celina Sifuentes MD [address] [place] [address] PCP - General Family Medicine 01/18/23 Carey Pemberton MD [address] [address] Surgeon Surgical Oncology 01/18/23 documented as of this encounter
--- OUTSIDE RECORDS SUMMARY | 2024-07-02 05:06 | XMS_ITS | Encounter Summary ---
Author Organization [facility] Address [address] [place] [address] Phone Care Team Providers Care Steward/Stewardess Deck Name Role Phone Celina Sifuentes MD Primary Care Provider [phone] Carey Pemberton MD Unavailable [phone] Encounter Details Date Type Department Care Team (Late st Contact Info) Description 01/28/2023 Telephone [facility] Surgery [address] [facility] 5th [place] [address] [place] [address] Nena Harden CMA Social History Tobacco Use Types Packs/Day Years Used Date Smoking Tobacco: Never Assessed Comments No Sex and Gender Information Value Date Recorded Sex Assigned at Not on file Legal Sex Female 12:19 AM INSURANCE OFFICE MANAGER Gender Identity Not on file Sexual [...] on filedocumented in this encounter Care Teams Steward/Stewardess Deck Relationship Specialty Start Date End Date Celina Sifuentes MD [address] [place] [address] PCP - General Family Medicine 01/18/23 Carey Pemberton MD [address] [address] Surgeon Surgical Oncology 01/18/23 documented as of this encounter
--- OUTSIDE RECORDS SUMMARY | 2024-07-02 05:06 | XMS_ITS | Encounter Summary ---
Author Organization [facility] Address [address] [place] [address] Phone Care Team Providers Care Bull Driver Name Role Phone Celina Sifuentes MD Primary Care Provider [phone] Carey Pemberton MD Unavailable [phone] Encounter Details Date Type Department Care Team (Late st Contact Info) Description 01/19/2023 Telephone [facility] Surgery [address] [facility] 5th [place] [address] [place] [address] Karly Grace Social History Tobacco Use Types Packs/Day Years Used Date Smoking Tobacco: Never Assessed Comments No Sex and Gender Information Value Date Recorded Sex Assigned at Not on file Legal Sex Female 12:19 AM SUPERVISOR HISTOLOGY Gender Identity Not on file Sexual Orientation [...] on filedocumented in this encounter Care Teams Bull Driver Relationship Specialty Start Date End Date Celina Sifuentes MD [address] [place] [address] PCP - General Family Medicine 01/18/23 Carey Pemberton MD [facility] [address] Surgeon Surgical Oncology 01/18/23 documented as of this encounter
--- OUTSIDE RECORDS SUMMARY | 2024-07-02 05:06 | XMS_ITS | Encounter Summary ---
Author Organization [facility] Healthcare Address [address] [place] [address] Care Team Providers Care Roll Coverer Name Role Phone Unavailable Primary Care Provider Unavailabl e Reason for Visit * Diagnostic Imaging (Routine) - Closed Specialty Diagnoses / Procedures Referred By Sherie t Referred To Contact Procedures Breast Imaging Diagnostic Outside Reference Caery Pemberton MD [address] [place] [address] Phone: tel: fax: Referral ID Status Reason Start Date Expiration Date Visits Re quested Visits Authorized [id number] Closed 01/27/2023 02/26/2024 1 1 Encounter Details Date Type Department Care Team (Latest Contact Info) Description 12/30/2022 12:05 AM CDT - 12/30/2022 11:59 PM CDT Hospital Encounter [facility]iology [facility] ([facility]) [address] [place] [address] Discharge Disposition: Discharge to home or self care Social History Tobacco Use Types Packs/Day Years Used Date Smoking Tobacco: Never Assessed Comments No Sex and Gender Information Value Date Recorded Sex Assigned at Not on file Legal Sex Female 12:19 AM EMERGENCY ROOM ORDERLY Gender Identity Not on file Sexual Orientation [...] only and have not been reviewed by [facility] Radiology. ??There will be no report generated by a [facility] Radiologist. Narrative [facility]_M[facility]MO[facility] - 01/27/2023 9:57 AM CDT EXAMINATION: ??Images For Reference Purposes Only us Carey Pemberton MD IMG MAMMO PROCEDURES Fi nal Result [facility] documented in this encounter Visit Diagnoses Not on filedocumented in this encounter
--- OUTSIDE RECORDS SUMMARY | 2024-07-02 05:06 | XMS_ITS | Encounter Summary ---
Author Organization [facility] Address [address] [place] [address] Phone Care Team Providers Care Composition Professor Name Role Phone Celina Sifuentes MD Primary Care Provider [phone] Carey Pemberton MD Unavailable [phone] Reason for Referral * Diagnostic Imaging (Routine) - Closed Specialty Diagnoses / Procedures Referred By Sherie jacobo Referred To Contact Diagnoses Breast mass Procedures Breast Imaging DX Outside Consult Carey Pemberton MD [address] [address] Phone: tel: fax: [facility] Referral ID Status Reason Start Date Expiration Date Visits Re quested Visits Authorized [id number] Closed 01/18/2023 02/17/2024 1 1 Encounter Details Date Type Department Care Team (Late st Contact Info) Description 01/18/2023 Orders Only [facility] Surgery [address] [place] [address] 5th [place] [address] [place] [address] Carey Pemberton MD [address] [id number] Ductal carcinoma in situ (DCIS) of right breast (Primary Dx) Social History Tobacco Use Types Packs/Day Years Used Date Smoking Tobacco: Never Assessed Comments No Sex and Gender Information Value Date Recorded Sex Assigned at Not on file 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 ??BILATERAL DIAGNOSTIC MAMMOGRAM WITH [...] OF OUTSIDE IMAGING FACILITY PERFORMING OUTSIDE IMAGING: [facility] EXAM(S) REVIEWED: 1. BILATERAL DIAGNOSTIC MAMMOGRAM WITH [...] images may or may not represent the [place] source data set and thus may contain [...] Primary documented in this encounter Care Teams Composition Professor Relationship Specialty Start Date End Date Celina Sifuentes MD [address] [place] [address] PCP - General Family Medicine 01/18/23 Carey Pemberton MD [address] [address] Surgeon Surgical Oncology 01/18/23 documented as of this encounter
--- OUTSIDE RECORDS SUMMARY | 2024-07-02 05:06 | XMS_ITS | Encounter Summary ---
Author Organization [facility] Address [address] [place] [address] Phone Care Team Providers Care Heat Regulator Name Role Phone Celina Sifuentes MD Primary Care Provider [phone] Carey Pemberton MD Unavailable [phone] Encounter Details Date Type Department Care Team (Late st Contact Info) Description 01/18/2023 Telephone [facility] Surgery [address] 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
--- OUTSIDE RECORDS SUMMARY | 2024-07-02 05:07 | XMS_ITS | Encounter Summary ---
Author Organization [facility] Healthcare Address [address] [place] [address] Care Team Providers Care It Analyst Name Role Phone Priya Mora MD Primary Care Provider [phone] Encounter Details Date Type Department Care Team (Late st Contact Info) Description 02/09/2013 9:17 AM CDT - 02/09/2013 11:59 PM CDT Hospital Encounter [place] [address] [phone] Routine general medical examination at a health care facility Social History Tobacco Use Types Packs/Day Years Used Date Smoking Tobacco: Never Assessed Comments Unknown Sex and Gender Information Value Date Recorded Sex Assigned at Not on file 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
--- OUTSIDE RECORDS SUMMARY | 2024-07-02 05:07 | XMS_ITS | Encounter Summary ---
Author Organization [facility] Healthcare Address [address] [place] [address] Care Team Providers Care Supply Clerk Name Role Phone Unavailable Primary Care Provider Unavailabl e Reason for Visit * Diagnostic Imaging (Routine) - Closed Specialty Diagnoses / Procedures Referred By Sherie t Referred To Contact Procedures Breast Imaging Diagnostic [place] [address] [place] [address] Phone: tel: fax: Referral ID Status Reason Start Date Expiration Date Visits Re quested Visits Authorized [id number] Closed 01/27/2023 02/26/2024 1 1 Encounter Details Date Type Department Care Team (Latest Contact Info) Description 03/17/2022 - 03/17/2022 11:59 PM CDT Hospital Encounter [facility]iology [facility] ([facility]) [address] [place] [address] Discharge Disposition: Discharge to home or self care Social History Tobacco Use Types Packs/Day Years Used Date Smoking Tobacco: Never Assessed Comments No Sex and Gender Information Value Date Recorded Sex Assigned at Not on file 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 ??There will be no report generated by a [facility] Radiologist. Narrative RAD_MAMMO_[facility] - 01/27/2023 9:57 AM CDT EXAMINATION: ??Images For Reference Purposes Only us Carey Pemberton MD IMG MAMMO PROCEDURES Fi nal Result [facility] documented in this encounter Visit Diagnoses Not on filedocumented in this encounter
--- OUTSIDE RECORDS SUMMARY | 2024-07-02 05:07 | XMS_ITS | Encounter Summary ---
Author Organization [facility] Healthcare Address [address] [place] [address] Care Team Providers Care Aircraft Electronics Technical Officer Name Role Phone Priya Mora MD Primary Care Provider [phone] Encounter Details Date Type Department Care Team (Late st Contact Info) Description 12/03/2016 10:18 AM CDT - 12/03/2016 11:59 PM CDT Hospital Encounter [facility] Leatha Gupta MD [address] [place] [address] Discharge Disposition: Discharge to home or self care Social History Tobacco Use Types Packs/Day Years Used Date Smoking Tobacco: Never Assessed Comments Unknown Sex and Gender Information Value Date Recorded Sex Assigned at Not on file 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 ? TECHNOLOGIST: ?? RBIAN LÓPEZ TECHNOLOGIST MEDICAL IMAGING ROLLER STITCHER: ??[facility] TRANSCRIBE DATE/TIME: ??Dec 03 2016 ??4:36P RADIOLOGIST: ??MOSHE NOLEN M.D. ??READ ON: ??Dec 03 2016 ??4:40P ORDERING DR: LEATHA GUPTA M.D. THIS DOCUMENT HAS BEEN ELECTRONICALLY SIGNED BY: ??MOSHE NOLEN M.D. ??ON: ??Dec 03 2016 ??4:36P Attending: ??TIEN, ??LEATHA Requesting: ??TIEN, ??LEATHA Requesting Fax: ??[phone] Attending Fax: ??[phone] Attending ID: ??[id number] Requesting ID: ??[id number] Report To 1 ID: ?? Report To 1 Name: ??, ?? Report To 1 FAX: ??-- Report To 2 ID: ?? Report To 2 Name: ??, ?? Report To 2 FAX: ??-- NextGen Order #: ?? Procedure Note Miscellaneous, Not In File / Provider, MD Luisa - 12/17/2016 Acc#: [id number] RAQUEL [id number] - Screening Mamm BI DATE [...] M.D. TECHNOLOGIST: BRIAN LÓPEZ TECHNOLOGIST MEDICAL IMAGING ROLLER STITCHER: [facility] TRANSCRIBE DATE/TIME: Dec 03 2016 4:36P RADIOLOGIST: MOSHE NOLEN M.D. READ ON: Dec 03 2016 4:40P ORDERING DR: LEATHA GUPTA M.D. THIS DOCUMENT HAS BEEN ELECTRONICALLY SIGNED BY: MOSHE NOLEN M.D. ON: Dec 03 2016 4:36P Attending: LEATHA GUPTA Requesting: LEATHA GUPTA Requesting Attending Attending ID: [id number] Requesting ID: [id number] Report To 1 ID: Report To 1 Name: , Report To 1 FAX: -- Report To 2 ID: Report To 2 Name: , Report To 2 FAX: -- NextGen Order #: us Not In File Miscellaneous IMG MAMMO PROCEDURES F inal Result documented in this encounter Visit Diagnoses Not on filedocumented in this encounter Care Teams Aircraft Electronics Technical Officer Relationship Specialty [place] [address] [address] PCP - General 02/06/13 12/14/16 documented as of this encounter
--- OUTSIDE RECORDS SUMMARY | 2024-07-02 05:07 | XMS_ITS | Encounter Summary ---
Author Organization [facility] Healthcare Address [address] [place] [address] Care Team Providers Care Lead Front Desk Agent Name Role Phone Unavailable Primary Care Provider Unavailabl e Reason for Visit * Diagnostic Imaging (Routine) - Closed Specialty Diagnoses / Procedures Referred By Contac t Referred To Contact Procedures Breast Imaging Screening Outside Reference Carey Pemberton MD [address] [place] [address] Phone: tel: fax: Referral ID Status Reason Start Date Expiration Date Visits Re quested Visits Authorized [id number] Closed 01/27/2023 02/26/2024 1 1 Encounter Details Date Type Department Care Team (Late st Contact Info) Description 01/05/2019 Hospital Encounter [facility]) [address] [place] [id number] Social History Tobacco Use Types Packs/Day Years Used Date Smoking Tobacco: Never Assessed Comments No Sex and Gender Information Value Date Recorded Sex Assigned at Not on file 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 ??There will be no report generated by a [facility] Radiologist. Narrative [facility]MO[facility] - 01/27/2023 9:58 AM CDT EXAMINATION: ??Images For Reference Purposes Only us Carey Pemberton MD IMG MAMMO PROCEDURES [facility] Result [facility] documented in this encounter Visit Diagnoses Not on filedocumented in this encounter Additional Health Concerns Infection Onset Date Last Indicated Resolved Time COVID: Suspected 11/30/2021 11/30/2021 11/30/2021 11:49 AM CDT COVID: Suspected 11/30/2021 11/30/2021 11/30/2021 11:55 AM CDT COVID: Suspected 11/30/2021 11/30/2021 11/30/2021 9:37 PM CDT documented as of this encounter
--- OUTSIDE RECORDS SUMMARY | 2024-07-02 05:07 | XMS_ITS | Encounter Summary ---
Author Organization [facility] Address [address] [facility] [address] [place] [address] Care Team Providers Care Ticket Seller Name Role Phone Unavailable Primary Care Provider Unavailabl e Reason for Visit * Reason Comments COVID-19 EVALUATION Pt was exposed to Co vid from a coworker. She is complaining of sore throat, chills, fatigue. History of Covid 07/01. Pt is vaccinated. 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 * Viral Syndrome (Concrete Boom Operator) (Bulgarian) documented in this encounter Progress Notes * Chelo Yuan NP - 11/30/2021 11:15 AM CDT Subjective/Objective Patient ID: Betina Coy is a 51 y.o. female. Chief Complaint COVID-19 EVALUATION (Pt was exposed to Covid from a coworker. She is complaining of sore throat, chills, fatigue. History of Covid 07/01. 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 Hx [...] COVID-19 PCR Nasopharyngeal (11/30/2021 12:23 PM CDT) [facility] COVID-19 RNA Negative Negative [facility] Influenza A RNA Negative Negative [facility] Influenza B RNA Negative Negative [facility] RSV RNA Negative Negative [facility] Comment: Interpretive data: This test is performed using the [employer] Xpert Xpress CoV-2/Flu/RSV plus assay. This is [...] PM CDT 11/30/2021 8:26 PM CDT Narrative [facility] - 11/30/2021 9:36 PM CDT Is the Patient experiencing symptoms consistent with COVID?->Yes Date of Symptom Onset->11/30/21 Reason for testing?->Known exposure to confirmed or suspected COVID-19 case Chelo Yuan VASC TECH LAB MICROBIOLOGY - GENERA L ORDERABLES Final Result [facility] [address] [address] Department [place] [address] * POCT rapid strep A (11/30/2021 11:48 AM CDT) [facility] Rapid Strep A, POC Negative Swab 11/30/2021 11:4 8 AM CDT Chelo Yuan VASC TECH POINT OF CARE TEST ORDERA BLES Final Result * POC Influenza A/B, COVID-19 antigen (11/30/2021 11:48 AM CDT) Influenza A Ag, POC Negative [facility] Influenza B Ag, POC Negative [facility] Ag POC Presumptive Negative Presumptive Negative, Invalid [facility] Nasal 11/30/2021 11:4 8 AM CDT Chelo Yuan VASC TECH POINT OF CARE TEST ORDERA BLES Final Result [facility] [address] [place] [address] documented in this encounter Visit Diagnoses Diagnosis [...]
--- OUTSIDE RECORDS SUMMARY | 2024-07-02 05:07 | XMS_ITS | Encounter Summary ---
Author Organization [facility] Healthcare Address [address] [place] [address] Care Team Providers Care Car Tester Name Role Phone Unavailable Primary Care Provider Unavailabl e Reason for Visit * Diagnostic Imaging (Routine) - Closed Specialty Diagnoses / Procedures Referred By Contac t Referred To Contact Procedures Breast Imaging Screening Outside Reference Carey Pemberton MD [address] [place] [address] Phone: tel: fax: Referral ID Status Reason Start Date Expiration Date Visits Re quested Visits Authorized [id number] Closed 01/27/2023 02/26/2024 1 1 Encounter Details Date Type Department Care Team (Late st Contact Info) Description 05/22/2020 Hospital Encounter [facility] [address] [place] [phone] Social History Tobacco Use Types Packs/Day Years Used Date Smoking Tobacco: Never Assessed Comments No Sex and Gender Information Value Date Recorded Sex Assigned at Not on file 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 Gender Identity Not on file Sexual Orientation Not on file documented as of this encounter Plan of Treatment Not on file documented as of this encounter Procedures Procedure Name Priority Date/Time Associated Diagnosis Comments BREAST IMAGING MG SCREENING OUTSIDE REFERENCE Routine 05/22/2020 12:00 AM HOISTING ENGINE OPERATOR documented in this encounter Results * Breast Imaging Screening Outside Reference (05/22/2020 12:00 AM HOISTING ENGINE OPERATOR) Impressions [facility] - 01/27/2023 9:58 AM CDT These images are for Reference purposes only and have not been reviewed by [facility] Radiology. ??There will be no report generated by a [facility] Radiologist. Narrative [facility]MO[facility] - 01/27/2023 9:58 AM [...]
--- OUTSIDE RECORDS SUMMARY | 2024-07-02 05:07 | XMS_ITS | Encounter Summary ---
Author Organization [facility] Healthcare Address [address] [place] [address] Care Team Providers Care Frame Feeder Name Role Phone Unavailable Primary Care Provider Unavailabl e Reason for Visit * Reason Comments Chest Pain Pt states pressure i n chest on the 4th Nauseated today SOB for one week Encounter Details Date Type Department Care Team (Late st Contact Info) Description 07/24/2022 3:30 PM DENTIST - 07/24/2022 10:21 PM DENTIST Emergency [facility] [address] [place] [address] [place] [address] [facility] [address] [place] [address] Chest pain, unspecified type (Primary Dx); Dizziness Discharge Disposition: Discharge to home or self care Social History Tobacco Use Types Packs/Day Years Used Date Smoking Tobacco: Never Assessed Comments No Sex and Gender Information Value Date Recorded Sex Assigned at Not on file Legal Sex Female 12:19 AM DENTIST Gender Identity Not on file Sexual Orientation Not on file documented as of this encounter Last Filed Vital Signs Vital Sign Reading Time Taken Comments Blood Pressure 107/72 07/24/2022 10:15 PM DENTIST Pulse 72 07/24/2022 10:15 PM DENTIST Temperature 36.3 ??C (97.3 ??F) 07/24/2022 3:16 PM CS T Respiratory Rate 24 07/24/2022 10:1 5 PM DENTIST Oxygen Saturation 98% 07/24/2022 10: 15 PM DENTIST Inhaled Oxygen Concentration - - Weight 91.6 kg (201 lb 15.1 oz) 07/24/2022 3:16 PM DENTIST Height 162.6 cm (5' 4.02 ) 07/24/2022 3:16 PM CS T Body Mass Index 34.65 07/24/2022 3:16 PM DENTIST documented in this encounter Discharge Instructions * Attachments The following attachments cannot be sent through Care Everywhere. * Chest Pain (AfterCare(R) Instructions(ER/ED)) (Bahraini) * Dizziness, Uncertain Cause (Bahraini) documented in this encounter Discharge Disposition Disposition [...] Normal Psychiatric: Mood and Affect: Mood normal. [facility] Medical Decision Making Assessment and plan- [...] type Dizziness Kenneth Roberto MD 07/25/22 1421 IST documented in this encounter Plan of Treatment Not on file documented as of this encounter Procedures Procedure Name Priority Date/Time Associated Diagnosis Comments CT HEAD WO CONTRAST ED 07/24/2022 8 :36 PM DENTIST URINALYSIS AND REFLEX TO MICROSCOPIC STAT 07/24/2022 8:17 PM DENTIST TROPONIN T HIGH-SENSITIVITY 2-HOUR Timed 07/24/2022 8:16 PM DENTIST XR CHEST 1 VIEW ED 07/24/2022 6:22 PM DENTIST TROPONIN T HIGH-SENSITIVITY SERIES (BASELINE, 2HR, 4HR, 6HR) STAT 07/24/2022 6:18 PM DENTIST EGFR STAT 07/24/2022 6:18 PM DENTIST DIFFERENTIAL AUTO STAT 07/24/2022 6:1 8 PM DENTIST PRO B-TYPE NATRIURETIC PEPTIDE STAT 07/24/2022 6:18 PM DENTIST THYROID FUNCTION CASCADE Add-On 07/24/2022 6:18 PM DENTIST CBC WITH AUTO DIFFERENTIAL STAT 07/24/2022 6:18 PM DENTIST PROTIME-INR STAT 07/24/2022 6:18 PM DENTIST D-DIMER, QUANTITATIVE Add-On 07/24/2022 6:18 PM DENTIST HCG, BLOOD, QUANTITATIVE Add-On 07/24/2022 6:18 PM DENTIST LIPASE STAT 07/24/2022 6:18 PM DENTIST COMPREHENSIVE METABOLIC PANEL STAT 07/24/2022 6:18 PM DENTIST ECG 12-LEAD STAT 07/24/2022 3:15 PM DENTIST documented in this encounter Results * CT Head WO Contrast (07/24/2022 8:36 PM DENTIST) Anatomical Region Laterality Modality Head and Neck N/A Computed Tomogra phy 07/24/2022 8:29 PM DENTIST Impressions 07/25/2022 6:35 AM DENTIST No acute intracranial abnormality. Electronically signed by: Arias Cook M.D. Narrative 07/25/2022 6:35 AM DENTIST EXAMINATION: CT head without contrast HISTORY: Headache, [...] Urinalysis reflex to microscopic (07/24/2022 8:17 PM DENTIST) Color, ur Yellow Yellow [facility]ER CH Clarity, [...] met. [facility]ERNER CH Urine 07/24/2022 8:17 PM DENTIST 07/24/2022 8:19 PM DENTIST Narrative C[facility]ER CH - 07/24/2022 8:37 PM DENTIST ?? Urine pH is affected by diet, medications, systemic acid-base disturbances, and renal tubular function. ??pH may affect urinary stone formation. ??For example, urine pH below 6.0 may help reduce the tendency for calcium phosphate stones and pH greater than 6.0 may reduce the tendency for uric acid stone formation. Source: tomoguides. Last revised 07-22-2017 Kenneth Roberto MD LAB URINE ORDERABLES Final Resul t [facility] [address] Department [place] [address] * Troponin T high-sensitivity 2-hour (07/24/2022 8:16 PM DENTIST) Trop T hs <6 <=14 ng/L KIRILL Comment: Interpretive Data For further hscTnT resources including the diagnostic algorithm and an aid in interpretation, copy and paste this link: https://nrl.testcatalog.org/show/hsTrop Current Interpretive Data last revised 2020. Trop T hs delta 0 ng/L [facility] Trop T hs interp Insignificant [facility] Blood 07/24/2022 8:16 PM DENTIST 07/24/2022 8:21 PM DENTIST us Kenneth Roberto MD LAB BLOOD ORDERABLES Final Resul t [facility] [address] Department [place] [address] * XR Chest 1 Vw Portable (07/24/2022 6:22 PM DENTIST) Anatomical Region Laterality Modality Body, Chest N/A Computed Radiogr aphy 07/24/2022 6:27 PM DENTIST Impressions 07/24/2022 6:27 PM DENTIST No evidence of active cardiopulmonary disease. Electronically signed by: Demarco Delarosa M.D. Narrative 07/24/2022 6:27 PM DENTIST EXAM: ?? XR CHEST 1 VIEW DATE: [...] Electronically signed by: Demarco Delarosa M.D. Result [facility] Kenneth Roberto MD IMG XR PROCEDURES Final Result * hCG, blood, quantitative (07/24/2022 6:18 PM DENTIST) hCG, quant 0.5 0.0 - 5.0 IUnits/L [...] revised on 2021. Blood 07/24/2022 6:18 PM DENTIST 07/24/2022 7:32 PM DENTIST Result [facility] Kenneth Roberto MD LAB BLOOD ORDERABLES Final Resul t [facility] [address] Department [place] [address] * TSH reflex to free T4 (07/24/2022 6:18 PM DENTIST) TSH 2.44 0.30 - 4.20 mcIUnit/mL [facility] Blood 07/24/2022 6:18 PM DENTIST 07/24/2022 7:11 PM DENTIST Result [facility] Kenneth Roberto MD LAB BLOOD ORDERABLES Final Resul t Performing Organization Address [facility] de Phone Number KIRILL [address] Department [place] [address] * D-dimer, quantitative (07/24/2022 6:18 PM DENTIST) D-Dimer 393 <=499 ng/mL FEU [facility]IRILL Comment: [...] revised on 2019. Blood 07/24/2022 6:18 PM DENTIST 07/24/2022 7:10 PM DENTIST us Kenneth Roberto MD LAB BLOOD ORDERABLES Final Resul t Performing Organization Address [facility] [place] [address] [address] Department [place] [address] * eGFR (07/24/2022 6:18 PM DENTIST) eGFR 105 mL/min/1. 73 m2 [facility] Comment: [...] last reviewed 2021. Blood 07/24/2022 6:18 PM DENTIST 07/24/2022 6:30 PM DENTIST us Kenneth Roberto MD LAB BLOOD ORDERABLES Final Resul t [facility] [address] Department [place] [address] * (ABNORMAL) Differential, auto (07/24/2022 6:18 PM DENTIST) Neutrophil abs 7.4(H) 1.7 - 6.5 K/cumm [facility] Imm gran abs 0.0 0.0 - 0.1 K/cumm [facility] Lymphocyte abs 2.8 0.8 - 3.3 K/cumm [facility] Monocyte abs 0.7 0.2 - 0.8 K/cumm [facility] Eosinophil abs 0.2 0.0 - 0.5 K/cumm [facility] Basophil abs 0.1 0.0 - 0.1 K/cumm [facility] Neutrophil pct 65.8 % KIRILL Comment: Interpretive [...] revised on 2017. Blood 07/24/2022 6:18 PM DENTIST 07/24/2022 6:30 PM DENTIST Kenneth Roberto MD LAB BLOOD ORDERABLES Final Resul t Performing Organization Address City/State/[facility] de Phone Number KIRILL [address] [facility] Department [place] [address] * Troponin T high-sensitivity series (baseline, 2hr, 4hr, 6hr) (07/24/2022 6:18 PM DENTIST) Trop T hs <6 <=14 ng/L [facility] SIGALA Comment: Interpretive Data For further hscTnT resources including the diagnostic algorithm and an aid in interpretation, copy and paste this link: https://nrl.testcatalog.org/show/hsTrop Current Interpretive Data last revised 2020. Blood 07/24/2022 6:18 PM DENTIST 07/24/2022 6:30 PM DENTIST Kenneth Roberto MD LAB BLOOD ORDERABLES Final Resul t [facility] SIGALA [address] [facility] [place] [address] * Protime-INR (07/24/2022 6:18 PM DENTIST) PT 10.6 9.2 - 13.5 sec [facility] INR 1.0 0.9 - 1.2 CERNER Comment: Interpretive data Oral anticoagulant therapeutic ranges: Venous thromboembolism prophylaxis or treatment: 2.0-3.0 CARDIOLOGY Standard range: 2.0-3.0 High-intensity range: 2.5-3.5 Refer to indication-specific guidelines for appropriate target ranges for prosthetic heart valve replacement. Current interpretive data was last revised on 2019. Blood 07/24/2022 6:18 PM DENTIST 07/24/2022 6:30 PM DENTIST Kenneth Roberto MD LAB BLOOD ORDERABLES Final Resul t Performing Organization Address [facility] de Phone Number KIRILL SIGALA [address] [place] [address] * Lipase (07/24/2022 6:18 PM DENTIST) Pathologist [facility] Lipase 28 10 - 99 Units/L [facility] Blood 07/24/2022 6:18 PM DENTIST 07/24/2022 6:30 PM DENTIST Kenneth Roberto MD LAB BLOOD ORDERABLES Final Resul t Performing Organization Address [facility] de Phone Number KIRILL SIGALA [address] Department [place] [address] * Comprehensive metabolic panel (07/24/2022 6:18 PM DENTIST) Sodium 140 135 - 145 mmol/L CERNER [...] Units/L [facility] Blood 07/24/2022 6:18 PM DENTIST 07/24/2022 6:30 PM DENTIST us Kenneth Roberto MD LAB BLOOD ORDERABLES Final Resul t [facility] [address] Department [place] [address] * (ABNORMAL) CBC with auto differential (07/24/2022 6:18 PM DENTIST) WBC 11.2(H) 3.8 - 9.9 K/cumm CERNER [...] 0.01 K/cumm [facility] Blood 07/24/2022 6:18 PM DENTIST 07/24/2022 6:30 PM DENTIST us Kenneth Roberto MD LAB BLOOD ORDERABLES Final Resul t [facility] [address] Department [place] [address] * Pro B-type natriuretic peptide (07/24/2022 6:18 PM DENTIST) NT-proBNP 21 <=300 pg/mL KIRILL Comment: Interpretive [...] Revised Date: 2018. Blood 07/24/2022 6:18 PM DENTIST 07/24/2022 6:30 PM DENTIST Kenneth Roberto MD LAB BLOOD ORDERABLES Final Resul t Performing Organization Address [facility] de Phone Number [facility] [address] [facility] Department [place] [address] * ECG 12 lead (07/24/2022 3:15 PM DENTIST) 07/24/2022 3:15 PM DENTIST Narrative [facility] - 07/24/2022 6:17 PM DENTIST Vent Rate: 73 bpm RR Interval: 819 msec W[place] Interval: 133 msec QRS Duration: 85 msec QT Interval: 373 msec QTC Interval: 398 msec P-R-T [place]: 11 - -23 - 18 degrees SINUS RHYTHM BORDERLINE LEFT AXIS DEVIATION BORDERLINE ECG Electronically Signed By: Dewayne Etienne MD Taya DE LA ROSA ECG ORDERABLES Final Re sult Performing Organization Address [facility] Co de Phone Number [facility] documented in this encounter Visit Diagnoses Diagnosis Chest pain, unspecified type- Primary Dizziness Dizziness and giddiness documented in this encounter Administered Medications Inactive Administered Medications - up to 3 most recent administrations Medication Order MAR Action Action Date Dose Rate Site aspirin chewable tablet 324 mg 324 mg, oral, Once, On Wed07/24/22 at 1902, For 1 dose Given 07/24/2022 7:12 PM DENTIST 324 mg sodium chloride 0.9% bolus 1,000 mL 1,000 mL, intravenous, at 1,000 mL/hr, Administer over 1 Hours, Once, On Wed07/24/22 at 1902, For 1 dose New Bag 07/24/2022 7:13 PM DENTIST 1,000 mL 100 0 mL/hr documented in this encounter Active and Recently Administered Medications Times are shown in DENTIST. Scheduled Medication Order 07/22/2022 07/23/2022 07/24/2022 aspirin chewable tablet 324 mg (COMPLETED) 324 mg, oral, Once, On Wed07/24/22 at 1902, For 1 dose 1911 (Given - Provid er: Mirta Collins) sodium chloride 0.9% bolus 1,000 mL (COMPLETED) 1,000 mL, intravenous, at 1,000 mL/hr, Administer over 1 Hours, Once, On Wed07/24/22 at 1902, For 1 dose 1912 (New Bag - Prov ider: Mirta Collnis)2210 (Stopped - Provider: Julia Cervantes RN) documented in this encounter Orders EKG Orders Without Results Count Last Ordered D ate First Ordered Date ECG 12-LEAD 07/24/2022 documented in this encounter
--- OUTSIDE RECORDS SUMMARY | 2024-07-02 05:07 | XMS_ITS | Encounter Summary ---
Author Organization [facility] Healthcare Address [address] [place] [address] Care Team Providers Care Spool Cleaner Name Role Phone Unavailable Primary Care Provider Unavailabl e Reason for Visit * Diagnostic Imaging (Routine) - Closed Specialty Diagnoses / Procedures Referred By Contlulu t Referred To Contact Diagnoses Mass of right breast Procedures US Breast Right Limited US Breast Right Complete Leatha Gupta MD Phone: tel: fax: [address] [phone] Referral ID Status Reason Start Date Expiration Date Visits Re quested Visits Authorized [id number] Closed 04/20/2018 10/30/2019 1 1 Encounter Details Date Type Department Care Team (Late st Contact Info) Description 05/04/2018 9:34 AM CDT - 05/04/2018 11:59 PM CDT Hospital Encounter [facility] ` [address] [place] [address] Leatha Gupta MD [address] [place] [id number] 1, Michael Harmon Md Mass of right breast Discharge Disposition: Discharge to home or self care Social History Tobacco Use Types Packs/Day Years Used Date Smoking Tobacco: Never Assessed Comments No Sex and Gender Information Value Date Recorded Sex Assigned at Not on file Legal Sex Female 12:19 AM 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
--- OUTSIDE RECORDS SUMMARY | 2024-07-02 05:07 | XMS_ITS | Encounter Summary ---
Author Organization [facility] Healthcare Address [address] [place] [address] Care Team Providers Care Administrative Assistant Coordinator Name Role Phone Priya Mora MD Primary Care Provider + [phone] Encounter Details Date Type Department Care Team (Late st Contact Info) Description 2012 11:15 AM STAIN DIPPER - 2012 11:59 PM STAIN DIPPER Hospital Encounter [facility] Leatha Gupta MD [address] [place] [address] Other screening mammogram Social History Tobacco Use Types Packs/Day Years Used Date Smoking Tobacco: Never Assessed Comments Unknown Sex and Gender Information Value Date Recorded Sex Assigned at Not on file Legal Sex Female 12:19 AM STAIN DIPPER Gender Identity Not on file Sexual Orientation Not on file documented as of this encounter Plan of Treatment Not on file documented as of this encounter Procedures Procedure Name Priority Date/Time Associated Diagnosis Comments DIGITAL MAMMOGRAPHY Routine 2012 1 1:43 AM STAIN DIPPER documented in this encounter Results * DIGITAL MAMMOGRAPHY (2012 11:43 AM STAIN DIPPER) Anatomical Region Laterality Modality Breast Mammography 2012 11:4 3 AM STAIN DIPPER Narrative 09/01/2012 11:33 AM STAIN DIPPER Acc#: ??[id number] RAQUEL [id number] - Screening Mamm BI DATE [...] TECHNOLOGIST: ?? MACO CHOW, TECHNOLOGIST MEDICAL IMAGING MOTOR VEHICLE DISPATCHER: ??SP8 TRANSCRIBE DATE/TIME: ??Sep 01 2012 11:17A RADIOLOGIST: ??CARY LIMON M.D. ??READ ON: ??Sep 01 2012 ??9:47A ORDERING DR: LEATHA GUPTA M.D. THIS DOCUMENT HAS BEEN ELECTRONICALLY SIGNED BY: ??CARY LIMON M.D. ??ON: ??Sep 01 2012 11:33A Procedure Note Provider, Luisa, - 11/04/2016 Acc#: [id number] RAQUEL 0017 - Screening Mamm BI DATE [...] BENIGN TECHNOLOGIST: MACO CHOW TECHNOLOGIST MEDICAL IMAGING MOTOR VEHICLE DISPATCHER: SP8 TRANSCRIBE DATE/TIME: Sep 01 2012 11:17A RADIOLOGIST: CARY LIMON M.D. READ ON: Sep 01 2012 9:47A ORDERING DR: LEATHA GUPTA M.D. THIS DOCUMENT HAS BEEN ELECTRONICALLY SIGNED BY: CARY LIMON M.D. ON: Sep 01 2012 11:33A Historical Provider MD SHI MAMMO PROCEDURES Arline l Result documented in this encounter Visit Diagnoses Diagnosis Other screening mammogram documented in this encounter Care Teams Administrative Assistant Coordinator Relationship Specialty [place] [address] [phone] PCP - General 03/10/07 02/05/13 documented as of this encounter
--- OUTSIDE RECORDS SUMMARY | 2024-07-02 05:07 | XMS_ITS | Encounter Summary ---
Author Organization [facility] Healthcare Address [address] [place] [address] Care Team Providers Care Night Clerk Name Role Phone Unavailable Primary Care Provider Unavailabl e Reason for Visit * Diagnostic Imaging (Routine) - Closed Specialty Diagnoses / Procedures Referred By Contac t Referred To Contact Procedures Breast Imaging [place] [address] [place] [address] Phone: tel: fax: Referral ID Status Reason Start Date Expiration Date Visits Re quested Visits Authorized [id number] Closed 01/27/2023 02/26/2024 1 1 Encounter Details Date Type Department Care Team (Latest Contact Info) Description 12/30/2022 - 12/30/2022 11:59 PM CDT Hospital Encounter [facility] [address] [place] [id number] Discharge Disposition: Discharge to home or self care Social History Tobacco Use Types Packs/Day Years Used Date Smoking Tobacco: Never Assessed Comments No Sex and Gender Information Value Date Recorded Sex Assigned at Not on file Legal Sex Female 12:19 AM FISH HEADER Gender Identity Not on file Sexual Orientation [...] only and have not been reviewed by [facility] Radiology. ??There will be no report generated by a [facility] Radiologist. Narrative RAD_MAMMO_[facility] - 01/27/2023 9:57 AM CDT EXAMINATION: ??Images For Reference Purposes Only us Carey Pemberton MD IMG MAMMO PROCEDURES Fi nal Result [facility]_MAMMO_[facility] documented in this encounter Visit Diagnoses Not on filedocumented in this encounter
--- OUTSIDE RECORDS SUMMARY | 2024-07-02 05:07 | XMS_ITS | Encounter Summary ---
Author Organization [facility] Healthcare Address [address] [place] [address] Care Team Providers Care Mill Controller Name Role Phone Unavailable Primary Care Provider Unavailabl e Reason for Visit * Diagnostic Imaging (Routine) - Closed Specialty Diagnoses / Procedures Referred By Sherie t Referred To Contact Procedures Breast Imaging US Outside Reference Carey Pemberton MD [address] [place] [address] Phone: tel: fax: Referral ID Status Reason Start Date Expiration Date Visits Re quested Visits Authorized [id number] Closed 01/27/2023 02/26/2024 1 1 Encounter Details Date Type Department Care Team (Latest Contact Info) Description 03/17/2022 12:05 AM CDT - 03/17/2022 11:59 PM CDT Hospital Encounter 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 ??There will be no report generated by a [facility] Radiologist. Narrative RAD_MAMMO_[facility] - 01/27/2023 9:58 AM CDT EXAMINATION: ??Images For Reference Purposes Only us Carey Pemberton MD IMG MAMMO PROCEDURES Fi nal Result [facility]MAMMO[facility] documented in this encounter Visit Diagnoses Not on filedocumented in this encounter
--- OUTSIDE RECORDS SUMMARY | 2024-07-02 05:07 | XMS_ITS | Encounter Summary ---
Author Organization [facility] Healthcare Address [address] [place] [address] Care Team Providers Care Abrasive Wheel Molder Name Role Phone Priya Mora MD Primary Care Provider + [phone] Encounter Details Date Type Department Care Team (Late st Contact Info) Description 10/09/2013 9:49 AM CDT - 10/09/2013 11:59 PM CDT Hospital Encounter [facility] Leatha Mohr MD [address] [place] [address] Other screening mammogram Social History Tobacco Use Types Packs/Day Years Used Date Smoking Tobacco: Never Assessed Comments Unknown Sex and Gender Information Value Date Recorded Sex Assigned at Not on file Legal Sex Female 12:19 AM MEDIA RELATIONS INTERN Gender Identity Not on file Sexual Orientation [...] CDT Narrative 10/09/2013 5:01 PM CDT Acc#: ??[id number] RAQUEL [id number] - Screening Mamm BI DATE [...] TECHNOLOGIST: ?? BRIAN EL TECHNOLOGIST MEDICAL IMAGING SUPERVISOR FACEPIECE LINE: ??DMJevon TRANSCRIBE DATE/TIME: ??Oct 09 2013 ??3:06P RADIOLOGIST: ??STEPHANIE JAQUEZ M.D. ??READ ON: ??Oct 09 2013 11:38A ORDERING DR: LEATHA CHAUHAN M.D. THIS DOCUMENT HAS BEEN ELECTRONICALLY SIGNED BY: ??STEPHANIE JAQUEZ M.D. ??ON: ??Oct 09 2013 ??5:01P Requesting Fax: ??[phone] Procedure Note Provider, MD Luisa - 11/04/2016 Acc#: [id number] RAQUEL 0017 - Screening Mamm BI DATE [...] BENIGN TECHNOLOGIST: BRIAN EL TECHNOLOGIST MEDICAL IMAGING SUPERVISOR FACEPIECE LINE: DM2 TRANSCRIBE DATE/TIME: Oct 09 2013 3:06P [...] mammogram documented in this encounter Care Teams Abrasive Wheel Molder Relationship Specialty [place] [address] [address] [phone] PCP - General 02/06/13 12/14/16 documented as of this encounter
--- OUTSIDE RECORDS SUMMARY | 2024-07-02 05:07 | XMS_ITS | Encounter Summary ---
Author Organization [facility] Healthcare Address [address] [place] [address] Care Team Providers Care Clearing Inspector Name Role Phone Unavailable Primary Care Provider Unavailabl e Reason for Visit * Diagnostic Imaging (Routine) - Closed Specialty Diagnoses / Procedures Referred By Contac t Referred To Contact Procedures Breast Imaging Scre[place] [address] [place] [address] Phone: tel: fax: Referral ID Status Reason Start Date Expiration Date Visits Re quested Visits Authorized [id number] Closed 01/27/2023 02/26/2024 1 1 Encounter Details Date Type Department Care Team (Latest Contact Info) Description 12/24/2021 - 12/24/2021 11:59 PM CDT Hospital Encounter [facility] Radiology [facility] [address] [place] [address] Discharge Disposition: Discharge to home or self care Social History Tobacco Use Types Packs/Day Years Used Date Smoking Tobacco: Never Assessed Comments No Sex and Gender Information Value Date Recorded Sex Assigned at Not on file 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 ??There will be no report generated by a [facility] Radiologist. Narrative RAD_MAMMO_[facility] - 01/27/2023 9:58 AM CDT EXAMINATION: ??Images For Reference Purposes Only us Carey Pemberton MD IMG MAMMO PROCEDURES Fi nal Result [facility]_MAMMO[facility] documented in this encounter Visit Diagnoses Not on filedocumented in this encounter
--- OUTSIDE RECORDS SUMMARY | 2024-07-02 05:07 | XMS_ITS | Encounter Summary ---
Author Organization [facility] Healthcare Address [address] [place] [address] Care Team Providers Care Eap Clinician Name Role Phone Priya Velasquez MD Primary Care Provider [phone] Encounter Details Date Type Department Care Team (Late st Contact Info) Description 12/31/2017 12:00 PM CDT - 12/31/2017 11:59 PM CDT Hospital Encounter [facility] Imaging and Radiology [address] [place] [address] Leatha Gupta MD [address] [place] [address] Encounter for screening mammogram for malignant neoplasm of breast Discharge Disposition: Discharge to home or self care Social History Tobacco Use Types Packs/Day Years Used Date Smoking Tobacco: Never Assessed Comments No Sex and Gender Information Value Date Recorded Sex Assigned at Not on file Legal Sex Female 12:19 AM ENGAGEMENT MGR Gender Identity Not on file Sexual Orientation [...] by a physician. Electronically signed by: Donald Stepehnson M.D. Narrative 12/31/2017 1:01 PM CDT RESULT: [...] breast documented in this encounter Care Teams Eap Clinician Relationship Specialty [place] [id number] [address] PCP - General 12/15/16 04/25/18 documented as of this encounter
--- OUTSIDE RECORDS SUMMARY | 2024-07-02 05:07 | XMS_ITS | Encounter Summary ---
Author Organization [facility] Healthcare Address [address] [place] [address] Care Team Providers Care Pneumatic Tool Operator Name Role Phone Priya Velasquez MD Primary Care Provider [phone] Encounter Details Date Type Department Care Team (Late st Contact Info) Description 12/21/2016 8:08 AM CDT - 12/21/2016 11:59 PM CDT Hospital Encounter [facility] Leatha Gupta MD [address] [place] [address] Discharge Disposition: Discharge to home or self care Social History Tobacco Use Types Packs/Day Years Used Date Smoking Tobacco: Never Assessed Comments Unknown Sex and Gender Information Value Date Recorded Sex Assigned at Not on file 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 ? PARADICHLOROBENZENE TENDER: ??PSC TRANSCRIBE DATE/TIME: ??Dec 21 2016 ??3:47P RADIOLOGIST: ??MOSHE SUTTON M.D. ??READ ON: ??Dec 21 2016 ??3:51P ORDERING DR: LEATHA GUPTA M.D. ? THIS DOCUMENT HAS BEEN ELECTRONICALLY SIGNED BY: ??MOSHE SUTTON M.D. ??ON: ??Dec 21 2016 ??3:47P Attending: ??TIEN, ??LEATHA Requesting: ??TIEN, ??LEATHA Requesting Fax: ??[phone] Attending Fax: ??[phone] Attending ID: ??[id number] Requesting ID: ??[id number] Report To 1 ID: ?? Report To 1 Name: ??, ?? Report To 1 FAX: ??-- Report To 2 ID: ?? Report To 2 Name: ??, ?? Report To 2 FAX: ??-- NextGen Order #: ?? Procedure Note Miscellaneous, Not In File / Provider, MD Luisa - 12/21/2016 DATE OF EXAM: Dec 21 2016 9:58AM Acc#: [id number] EUS 0083 - US Breast Limited R [...] examination. Electronically signed by: Moshe Sutton M.D. PARADICHLOROBENZENE TENDER: PSC TRANSCRIBE DATE/TIME: Dec 21 2016 3:47P RADIOLOGIST: MOSHE SUTTON M.D. READ ON: Dec 21 2016 3:51P ORDERING DR: LEATHA GUPTA M.D. THIS DOCUMENT HAS BEEN ELECTRONICALLY SIGNED BY: MOSHE SUTTON M.D. ON: Dec 21 2016 3:47P Attending: LEATHA GUPTA Requesting: LEATHA GUPTA Requesting Attending Attending ID: [id number] Requesting ID: [id number] Report To 1 ID: Report To 1 [...] CDT Narrative 12/21/2016 1:58 PM CDT Acc#: ??[id number] [facility] 0048 - Diag Mamm Jl [...] TECHNOLOGIST: ?? MACO CHOW, TECHNOLOGIST MEDICAL IMAGING PARADICHLOROBENZENE TENDER: ??PSC TRANSCRIBE DATE/TIME: ??Dec 21 2016 ??3:47P RADIOLOGIST: ??MOSHE SUTTON M.D. ??READ ON: ??Dec 21 2016 ??3:51P ORDERING DR: LEATHA GUPTA M.D. THIS DOCUMENT HAS BEEN ELECTRONICALLY SIGNED BY: ??LESLEY Prince, MOSHE ??ON: ??Dec 21 2016 ??3:47P Attending: ??TIEN, ??LEATHA Requesting: ??TIEN, ??LEATHA Requesting Fax: ??[phone] Attending Fax: ??[phone] Attending ID: ??[id number] Requesting ID: ??[id number] Report To 1 ID: ?? Report To 1 Name: ??, ?? Report To 1 FAX: ??-- Report To 2 ID: ?? Report To 2 Name: ??, ?? Report To 2 FAX: ??-- NextGen Order #: ?? Procedure Note Miscellaneous, Not In File / Provider, MD Luisa - 12/21/2016 Acc#: [id number] RAQUEL 0048 - Diag Mamm Jl Addl [...] M.D. TECHNOLOGIST: MACO CHOW TECHNOLOGIST MEDICAL IMAGING PARADICHLOROBENZENE TENDER: [employer] TRANSCRIBE DATE/TIME: Dec 21 2016 3:47P RADIOLOGIST: MOSHE SUTTON M.D. READ ON: Dec 21 2016 3:51P ORDERING DR: LEATHA GUPTA M.D. THIS DOCUMENT HAS BEEN ELECTRONICALLY SIGNED BY: MOSHE SUTTON M.D. ON: Dec 21 2016 3:47P Attending: LEATHA GUPTA Requesting: LEATHA GUPTA Requesting Attending Attending ID: [id number] Requesting ID: [id number] Report To 1 ID: Report To 1 Name: , Report To 1 FAX: -- Report To 2 ID: Report To 2 Name: , Report To 2 FAX: -- NextGen Order #: us Not In File Miscellaneous IMG MAMMO PROCEDURES F inal Result documented in this encounter Visit Diagnoses Not on filedocumented in this encounter Care Teams Pneumatic Tool Operator Relationship Specialty [place] [address] [place] [address] PCP - General 12/15/16 04/25/18 documented as of this encounter
--- OUTSIDE RECORDS SUMMARY | 2024-07-02 05:07 | XMS_ITS | Encounter Summary ---
Author Organization [facility] Healthcare Address [address] [place] [address] Care Team Providers Care Apprentice Machinist Outside Name Role Phone Priya Mora MD Primary Care Provider [phone] Encounter Details Date Type Department Care Team (Late st Contact Info) Description 02/05/2015 12:44 PM CDT - 02/05/2015 11:59 PM CDT Hospital Encounter [facility] Shell Mohr MD [address] [place] [address] Other screening mammogram Social History Tobacco Use Types Packs/Day Years Used Date Smoking Tobacco: Never Assessed Comments Unknown Sex and Gender Information Value Date Recorded Sex Assigned at Not on file 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 TECHNOLOGIST: ?? SUN SEVILLATECHNOLOGIST MEDICAL IMAGING FORMS EXAMINER: ??JL6 TRANSCRIBE DATE/TIME: ??Feb 06 2015 ??8:42A RADIOLOGIST: ??STEPHANIE JAQUEZ M.D. ??READ ON: ??Feb 05 2015 ??7:44P ORDERING DR: SHELL CHAUHAN M.D. ? THIS DOCUMENT HAS BEEN ELECTRONICALLY SIGNED BY: ??STEPHANIE JAQUEZ M.D. ??ON: ??Feb 06 2015 10:29A ? FORMS EXAMINER: ??JL6 TRANSCRIBE DATE/TIME: ??Feb 06 2015 ??8:42A RADIOLOGIST: ??STEPHANIE JAQUEZ M.D. ??READ ON: ??Feb 05 2015 ??7:44P ORDERING DR: SHELL CHAUHAN M.D. ? THIS DOCUMENT HAS BEEN ELECTRONICALLY SIGNED BY: ??STEPHANIE JAQUEZ M.D. ??ON: ??Feb 06 2015 10:29A Attending: ??TIEN, ??SHELL Requesting: ??TIEN, ??SHELL Requesting Fax: ??[phone] Attending Fax: ??[phone] Attending ID: ??[id number] Requesting ID: ??[id number] Report To 1 ID: ?? Report To 1 Name: ??, ?? Report To 1 FAX: ??-- Report To 2 ID: ?? Report To 2 Name: ??, ?? Report To 2 FAX: ??-- NextGen Order #: ?? Procedure Note Provider, MD Luisa - 11/04/2016 Acc#: [id number] RAQU[facility] 0047 - Screening Mamm W Jl [...] ASSESSMENT: BENIGN. TECHNOLOGIST: SUN SEVILLATECHNOLOGIST MEDICAL IMAGING FORMS EXAMINER: JLBrittney TRANSCRIBE DATE/TIME: Feb 06 2015 8:42A RADIOLOGIST: STEPHANIE JAQUEZ M.D. READ ON: Feb 05 2015 7:44P ORDERING DR: SHELL CHAUHAN M.D. THIS DOCUMENT HAS BEEN ELECTRONICALLY SIGNED BY: STEPHANIE JAQUEZ M.D. ON: Feb 06 2015 10:29A FORMS EXAMINER: ERICA TRANSCRIBE DATE/TIME: Feb 06 2015 8:42A RADIOLOGIST: STEPHANIE JAQUEZ M.D. READ ON: Feb 05 2015 7:44P ORDERING DR: SHELL CHAUHAN M.D. THIS DOCUMENT HAS BEEN ELECTRONICALLY SIGNED BY: STEPHANIE JAQUEZ M.D. ON: Feb 06 2015 10:29A Attending: SHELL CHAUHAN Requesting: SHELL CHAUHAN Requesting Attending Attending ID: [id number] Requesting ID: [id number] Report To 1 ID: Report To 1 Name: , Report To 1 FAX: -- Report To 2 ID: Report To 2 Name: , Report To 2 FAX: -- NextGen Order #: us Historical Provider IMJulisa MAMMO PROCEDURES Arline l Result documented in this encounter Visit Diagnoses Diagnosis Other screening mammogram documented in this encounter Care Teams Apprentice Machinist Outside Relationship Specialty [place] [address] [address] [facility] [address] [place] [address] PCP - General 02/06/13 12/14/16 documented as of this encounter
--- OUTSIDE RECORDS SUMMARY | 2024-07-02 05:07 | XMS_ITS | Encounter Summary ---
Author Organization [facility] Healthcare Address [address] [place] [address] Care Team Providers Care Real Estate Lawyer Name Role Phone Unavailable Primary Care Provider Unavailabl e Reason for Visit * Diagnostic Imaging (Routine) - Closed Specialty Diagnoses / Procedures Referred By Sherie jacobo Referred To Contact Diagnoses Lump of right breast Procedures Diagnostic Mammogram Right W Jl Diagnostic Mammogram 2D Right Leatha Gupta MD Phone: tel: fax: [address] [address] Referral ID Status Reason Start Date Expiration Date Visits Re quested Visits Authorized [id number] Closed 04/20/2018 10/30/2019 1 1 Encounter Details Date Type Department Care Team (Late st Contact Info) Description 05/04/2018 9:33 AM CDT Hospital Encounter [facility] Imaging and Radiology [address] [place] [id number] Leatha Gupta MD [address] [place] [id number] [phone], Michael Harmon Md Lump of right breast Discharge Disposition: Discharge to home or self care Social History Tobacco Use Types Packs/Day Years Used Date Smoking Tobacco: Never Assessed Comments No Sex and Gender Information Value Date Recorded Sex Assigned at Not on file Legal Sex Female 12:19 AM 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
--- OUTSIDE RECORDS SUMMARY | 2024-07-02 05:07 | XMS_ITS | Encounter Summary ---
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 This is [...] confirmed or suspected COVID-19 case Chelo Yuan [facility] MICROBIOLOGY - GENERA L ORDERABLES Final Result [facility] [address] [address] Department [place] [address] documented in this encounter Visit Diagnoses Diagnosis Pharyngitis due to other organism documented in this encounter Additional Health Concerns Infection Onset Date Last Indicated Resolved Time COVID: Suspected 11/30/2021 11/30/2021 11/30/2021 9:37 PM CDT documented as of this encounter
== END 2024-06-26 08:38 | disposition home or self-care (01) ==
PROVIDERS: Emergency Provider Nurse Practitioner Family; PCP Physician Assistant
DX: J02.9 Acute pharyngitis, unspecified (principal); N76.0 Acute vaginitis; Z85.3 Personal history of malignant neoplasm of breast
CPT/HCPCS: 87081; 87880; 99213; G0463